=== PATIENT | female | born 1940 | race Hispanic/Latino ===

== ENCOUNTER 2016-10-03 20:46 | Inpatient (IN) | payer MEDICARE, BC ==
[2016-10-03] MEDS ORDERED: Labetalol 5 mg/ml Inj 20ML IVP STA ×2 (21:14→22:31)
--- NOTE | 2016-10-03 21:14 | ED PDOC ---
HPI: Abdomen Time Seen by Provider: 10/03/16 20:59 Chief Complaint (Nursing): Abdominal Pain Chief Complaint (Provider): Abdominal pain History Per: Patient Onset/Duration Of Symptoms: Intermittent Episodes Location Of Pain/Discomfort: Diffuse Additional Complaint(s): Patient is a 76 year old female with a past medical history of hypertension and pancreatitis presenting to the emergency department for diffuse right upper quadrant abdominal pain ongoing for a year (intermittently) with four episodes of vomiting today, and a headache that has been ongoing for several months. Also reports associated back pain. Denies dysuria, diarrhea, and fever. PCP: Dr. Roderick Coffey ([place], [place]) Past Medical History Reviewed: Historical Data, Nursing Documentation, Vital Signs Vital Signs: Last Vital Signs Temp 99.5 F 10/03/16 20:51 Pulse 87 10/03/16 21:30 Resp 18 10/03/16 21:30 BP 162/114 H 10/03/16 21:30 Pulse Ox 93 L 10/03/16 21:27 - Medical History PMH: Anemia, Anxiety, Arthritis, Bronchitis, Cardia Arrhythmia (Flutter), Colonic Polyps, COPD, Depression, Fibromyalgia, Fractures, HTN, Osteoporosis, Pancreatitis, Peripheral Edema (+2), Pneumonia (5 YRS AGO), Chronic Pain ( bilateral LE) Denies: Diabetes, Hepatitis, HIV, Chronic Kidney Disease, Sexually Transmitted Disease - Surgical History Surgical History: Carotid Endarterectomy, Endoscopy Denies: Pacemaker Other surgeries: Hand operation for carpal tunnel syndrome - Family History Family History: States: Unknown Family Hx - Living Arrangements Living Arrangements: With Family (with son) - Social History Current smoker - smoking cessation education provided: No Ex-Smoker (has not smoked in the last 12 months): Yes Alcohol: None Drugs: Denies - Immunization History Hx Tetanus Toxoid Vaccination: No Hx Influenza Vaccination: No Hx Pneumococcal Vaccination: No - Home Medications Home Medications: Ambulatory Orders Medication Instructions Recorded Aspirin [Ecotrin] 81 mg PO DAILY 11/14/14 Ziprasidone HCl [Geodon] 40 mg PO DAILY 11/14/14 Naloxegol Oxalate [Movantik] 25 mg PO DAILY PRN 11/22/14 Oxybutynin [Ditropan Tab] 5 mg PO BID 11/22/14 Cholecalciferol [Vitamin D 1000 IU] 50,000 cap PO QWK 07/29/15 Levocetirizine Dihydrochloride 1 tab PO DAILY 07/29/15 Oxycodone HCl/Acetaminophen 10 mg PO QID PRN 07/29/15 [Oxycodone-Acetaminophen 5-325] Potassium Chloride 10 meq PO DAILY 07/29/15 Primidone 3 tab PO HS 07/29/15 Valsartan [Diovan] 320 mg PO DAILY 07/29/15 Dicyclomine [Bentyl] 1 cap PO Q6 08/02/15 Ergocalciferol [Drisdol 50,000 1 cap PO QD7 08/02/15 Intl Units Cap] Sennosides [Ex-Lax] 15 mg PO BID PRN 08/02/15 Simethicone [Mi-Acid] 80 mg PO Q4 PRN 08/02/15 Bisacodyl [Dulcolax] 10 mg RC DAILY PRN #0 sup 08/21/15 DULoxetine [Cymbalta] 30 mg PO DAILY #0 ecc 08/21/15 DULoxetine [Cymbalta] 60 mg PO HS #0 ecc 08/21/15 Docusate Sodium/Sennosides A 1 tab PO BID PRN #0 tab 08/21/15 [Senokot S 50 MG-8.6 MG] Gabapentin [Neurontin] 600 mg PO TID #0 tab 08/21/15 Pantoprazole [Protonix EC Tab] 40 mg PO ACB #0 ect 08/21/15 Primidone [Mysoline] 50 mg PO HS #0 tab 08/21/15 Ziprasidone [Geodon Cap] 40 mg PO HS #0 cap 08/21/15 amLODIPine [Norvasc] 5 mg PO DAILY #0 tab 08/21/15 hydroCHLOROthiazide [Hydrodiuril] 25 mg PO DAILY #0 tab 08/21/15 traZODone [Desyrel] 50 mg PO HS #0 tab 08/21/15 Docusate [Colace] 100 mg PO DAILY PRN #14 cap 02/07/16 oxyCODONE/Acetaminophen [Percocet 1 ea PO BID PRN #12 tab 02/07/16 5/325 mg Tab] - Allergies Allergies/Adverse Reactions: Allergies Allergy/AdvReac Type Severity Reaction Status Date / Time Penicillins Allergy RASH Verified 08/02/15 17:48 Review of Systems ROS Statement: Except As Marked, All Systems Reviewed And Found Negative Constitutional: Negative for: Fever Gastrointestinal: Positive for: Vomiting (4 episodes today), Abdominal Pain ( diffuse, RUQ pain). Negative for: Diarrhea Genitourinary Female: Negative for: Dysuria Musculoskeletal: Positive for: Back Pain Neurological: Positive for: Headache Physical Exam - Reviewed Nursing Documentation Reviewed: Yes Vital Signs Reviewed: Yes - Physical Exam Appears: Positive for: Well, Non-toxic, No Acute Distress Head Exam: Positive for: ATRAUMATIC, NORMAL INSPECTION, NORMOCEPHALIC Skin: Positive for: Normal Color, Warm, Dry Eye Exam: Positive for: Normal appearance, PERRL Neck: Positive for: Normal, Painless ROM, Supple Cardiovascular/Chest: Positive for: Regular Rate, Rhythm. Negative for: Murmur Respiratory: Positive for: Normal Breath Sounds. Negative for: Accessory Muscle Use, Respiratory Distress Pulses-Radial (L): 2+ Pulses-Radial (R): 2+ Gastrointestinal/Abdominal: Positive for: Normal Exam, Soft Extremity: Positive for: Normal ROM, Swelling (bilateral lower extremity edema) Neurologic/Psych: Positive for: Alert, Oriented, Motor/Sensory Deficits ( weakness of right hand) - Laboratory Results Result Diagrams: 10/03/16 21:53 10/03/16 21:53 - ECG O2 Sat by Pulse Oximetry: 93 (RA) Pulse Ox Interpretation: Normal - Critical Care Total Time (In Min): 45 Medical Decision Making Medical Decision Making: Time: 21:11 Initial impression: Abdominal Pain Initial plan: EKG Labs Normal Saline 1 L Pepcid 20 mg IVP Toradol 30 mg IVP Trandate 30 mg IVP Zofran 4 mg IVP X-Ray Abdominal Series IV Insertion Urinalysis Glucose, Blood, POC Stat Reevaluation Scribe Attestation: Documented by Raissa Elkins, acting as a scribe for Janessa Pappas MD. Provider Scribe Attestation: All medical record entries made by the Scribe were at my direction and personally dictated by me. I have reviewed the chart and agree that the record accurately reflects my personal performance of the history, physical exam, medical decision making, and the department course for this patient. I have also personally directed, reviewed, and agree with the discharge instructions and disposition. patient has elevated lactate. exact source of infection still to be determined. She clinically looks well. She is pending CT ABd pelvis. Antibiotics ordered. Will endorse patient to Dr. Tello Disposition - Clinical Impression Clinical Impression: Abdominal pain in female - Patient ED Disposition Is Patient to be Admitted: Transfer of Care - Disposition Disposition: Transfer of Care Disposition Time: 23:49 Condition: FAIR Forms: [employer] ([place]) Patient Signed Over To: Jaiden Tello Present On Arrival: None
[2016-10-03] MEDS: Sodium Chloride 0.45% 1,000 ML IV SCH (21:48)
[2016-10-03 21:56] LABS: BASO % 0.2 % (0.0-2.0); HEMATOCRIT 50.9 % (34.0-47.0); LYMPH # 1.2 K/uL (1.0-4.3); LYMPH % 5.9 % (20.0-40.0); MEAN CELL VOLUME 91.3 fl (81.0-99.0); MEAN CORPUSCULAR HEMOGLOBIN 29.5 pg (27.0-31.0); MEAN CORPUSCULAR HGB CONC 32.3 g/dL (33.0-37.0); MEAN PLATELET VOLUME 8.7 fl (7.2-11.7); MONO # 0.9 K/uL (0.0-0.8); MONO % 4.4 % (0.0-10.0); NEUT # 18.8 K/uL (1.8-7.0); NEUT % 89.5 % (50.0-75.0); NRBC % 0.1 % (0.0-0.0); PLATELET COUNT 322 K/uL (130-400); RED CELL DISTRIBUTION WIDTH 13.4 % (11.5-14.5)
[2016-10-03 22:09] LABS: ALKALINE PHOSPHATASE 149 U/L (38-126); AST/SGOT 77 U/L (14-36); BILIRUBIN,TOTAL 2.3 mg/dl (0.2-1.3); BLOOD UREA NITROGEN 19 mg/dl (7-17); CALCIUM 9.3 mg/dL (8.4-10.2); CARBON DIOXIDE 24 mmol/L (22-30); CHLORIDE 94 mmol/L (98-107); GFR AFRICAN-AMERICAN > 60; GLUCOSE,RANDOM 202 mg/dL (65-105); SODIUM 135 mmol/l (132-148); TOTAL PROTEIN 10.2 G/DL (6.3-8.2)
[2016-10-03 22:12] LABS: ALT/SGPT < 6 U/L (9-52)
[2016-10-03 22:13] LABS: POTASSIUM 6.5 MMOL/L (3.6-5.0)
[2016-10-03 22:42] LABS: LIPASE 9473 U/L (23-300)
[2016-10-03 22:48] LABS: NEUTROPHIL 87 % (42-75); TOTAL CELLS COUNTED 100
[2016-10-03 22:54] LABS: VENOUS BLOOD GAS BASE EXCESS 2.6 mmol/L (0.0-2.0); VENOUS BLOOD GAS PCO2 55 mmHg (40-60); VENOUS BLOOD PH 7.34 (7.32-7.43)
[2016-10-03] MEDS ORDERED: PED IVPB STA (23:16)
[2016-10-03] MEDS ORDERED: GENTAMICIN IVPB STA ×2 (23:16→23:55)
[2016-10-03] MEDS ORDERED: Vancomycin 1 g Inj ONE (23:24)
[2016-10-03] MEDS ORDERED: Gentamicin 80 mg/2mL Inj. IVPB STA (23:39)
[2016-10-03 23:40] LABS: RBC URINE 4 /hpf (0-3); URINE BILIRUBIN NEGATIVE (NEGATIVE); URINE BLOOD SMALL (NEGATIVE); URINE COLOR YELLOW (YELLOW); URINE GLUCOSE (UA) 150 mg/dL (Normal); URINE KETONE TRACE mg/dL (NEGATIVE); URINE LEUKOCYTE ESTERASE NEG Leu/uL (Negative); URINE PROTEIN >=500 mg/dL (NEGATIVE); URINE UROBILINOGEN 0.2-1.0 mg/dL (0.2-1.0); WBC URINE 2 /hpf (0-5)
[2016-10-03] MEDS ORDERED: SODIUM CHLORIDE 0.9% IVPB STA (23:55)
[2016-10-03] MEDS ORDERED: Dextrose 50% SYRINGE Inj (50 ml) IVP ONE (23:56)
[2016-10-03] MEDS ORDERED: Insulin Regular 100 units/ml SC STA (23:56)
[2016-10-03] MEDS ORDERED: Sod Polystyrene Sulf 15 gm/60 ml Oral Susp PO ONE (23:56)
[2016-10-04] LABS: GRANULAR CAST 1 /lpf (0-1); URINE BACTERIA MOD (<OCC)
[2016-10-04] MEDS ORDERED: Iohexol 300 100 ML IJ ONE (00:24)
[2016-10-04] MEDS ORDERED: Sodium Chloride 0.9% 50 ML IV ONE (00:25)
--- NOTE | 2016-10-04 01:20 | CT ---
EXAM: CT Abdomen and Pelvis With Intravenous Contrast CLINICAL HISTORY: 76 years old, female; Pain; Abdominal pain; Generalized; Additional info: Abd pain; Wbd 20k TECHNIQUE: Axial computed tomography images of the abdomen and pelvis with intravenous contrast. All CT scans at this facility use one or more dose reduction techniques, viz.: automated exposure control; ma/kV adjustment per patient size (including targeted exams where dose is matched to indication; i.e. head); or iterative reconstruction technique. Coronal and sagittal reformatted images were created and reviewed. CONTRAST: 95 mL of [id number] administered intravenously. COMPARISON: No relevant prior studies available. FINDINGS: Lower thorax: There is minimal bibasilar atelectasis. ABDOMEN: Liver: There are no focal liver lesions present. Gallbladder and bile ducts: Gallbladder is distended measuring 10.6 x 4.9 CM and demonstrates at least a question of wall thickening. Additionally, the common bile duct is dilated measuring 15 mm with at least a question of wall enhancement. Neither cholecystitis, cholangitis and/or common bile duct obstruction aren't excluded. Underlying choledocholithiasis or mass near the papilla cannot be excluded. There is adjacent stranding and slight fluid in the vicinity of the common bile duct and pancreatic head. The pancreas is atrophic and partially fatty replaced. Pancreatitis is not excluded. Please correlate clinically. Pancreas: Unremarkable. No mass. No ductal dilation. Spleen: Unremarkable. No splenomegaly. Adrenals: The adrenal glands are normal. Kidneys and ureters: The kidneys are normal. No hydronephrosis. Stomach and bowel: There is fecal impaction of the rectum measuring 8.5 x 7.3 CM. Stomach is predominantly decompressed. There is no evidence of intestinal obstruction. There is mild colonic constipation. No mucosal thickening. Appendix: A normal appendix is identified. PELVIS: Bladder: Bladder is decompressed. Reproductive: Uterus is atrophic. ABDOMEN and PELVIS: Intraperitoneal space: There is no evidence of free intraperitoneal fluid. There is no free intraperitoneal air. Bones/joints: There is extensive deformity of the right hip with high riding acetabulum and extensive deformity of the right femoral head with associated joint space narrowing, arthritic changes and subchondral cyst formation. There are marked degenerative changes present. There is moderate diffuse osteopenia. No acute fracture. No dislocation. Soft tissues: Unremarkable. Vasculature: There is an infrarenal IVC filter. The aorta demonstrates moderate atherosclerotic calcification. No abdominal aortic aneurysm. Lymph nodes: There is no evidence of lymphadenopathy. IMPRESSION: 1. Gallbladder is distended measuring 10.6 x 4.9 CM and demonstrates at least a question of wall thickening. Additionally, the common bile duct is dilated measuring 15 mm with at least a question of wall enhancement. Neither cholecystitis, cholangitis and/or common bile duct obstruction aren't excluded. Underlying choledocholithiasis or mass near the papilla cannot be excluded. There is adjacent stranding and slight fluid in the vicinity of the common bile duct and pancreatic head. The pancreas is atrophic and partially fatty replaced. Pancreatitis is not excluded. Please correlate clinically. 2. There is fecal impaction of the rectum measuring 8.5 x 7.3 CM. 3. There is extensive deformity of the right hip with high riding acetabulum and extensive deformity of the right femoral head with associated joint space narrowing, arthritic changes and subchondral cyst formation. 4. Additional incidental and/or chronic findings as described.
--- NOTE | 2016-10-04 02:00 | ED PDOC ---
- Laboratory Results Result Diagrams: 10/03/16 21:53 10/03/16 21:53 - ECG O2 Sat by Pulse Oximetry: 93 (RA) Medical Decision Making Medical Decision Makin Pt. signed out to me by Dr. Pappas pending CT. 100 Pt. w/ mult abnl findings on Ct, surgery consulted, Dr. Gardner aware of patient, will admit to ICU. Disposition - Clinical Impression Clinical Impression: Pancreatitis, Cholecystitis - POA Present On Arrival: None - Disposition Disposition: Admitted as In-Patient Disposition Time: 01:30 Condition: FAIR Forms: [employer] ([place])
[2016-10-04 02:21] LABS: ALB/GLOB RATIO 1.1 (1.0-2.1); ALKALINE PHOSPHATASE 120 U/L (38-126); ALT/SGPT 31 U/L (9-52); AST/SGOT 41 U/L (14-36); BILIRUBIN,TOTAL 0.9 mg/dl (0.2-1.3); BLOOD UREA NITROGEN 19 mg/dl (7-17); CALCIUM 8.7 mg/dL (8.4-10.2); CARBON DIOXIDE 23 mmol/L (22-30); CHLORIDE 97 mmol/L (98-107); GFR AFRICAN-AMERICAN > 60; GLUCOSE,RANDOM 143 mg/dL (65-105); SODIUM 134 mmol/l (132-148); TOTAL PROTEIN 8.1 G/DL (6.3-8.2)
--- NOTE | 2016-10-04 02:32 | CP.PCM.HP ---
History of Present Illness - History of Present Illness History of Present Illness: PCP: Roderick Coffey MD Chief Complaint: Abdominal pain HPI: 76 years old female with hx of DM, HTN, A Flutter, Pancreatitis comes with a 1 years old intermittent, abdominal pain which has worsened over the past 2 days. It is located below both breast ,the periumbilical region and both lower quadrant. not relieved with her home medications and increases with movement. She refers headache and vomiting. No diarrhea, dysuria urinary. 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 absent: Anorexia, Chills, Fever - EENT Eyes: absent: Diplopia, Floaters, Photophobia, Requires Corrective Lenses Ears: absent: Decreased Hearing, Ear Discharge, Tinnitus Nose/Mouth/Throat: absent: Epistaxis, Nasal Congestion - Integumentary Integumentary: Swelling. absent: Striae - Neurological Neurological: absent: Abnormal Gait, Confusion, Dizziness, Headaches, Weakness - Psychiatric Psychiatric: Anxiety, Depression. absent: Confusion - Endocrine Endocrine: absent: Palpitations, Polydipsia, Polyphagia, Polyuria - Hematologic/Lymphatic Hematologic: absent: Easy Bleeding, Easy Bruising Past Patient History - Infectious Disease Hx of Infectious Diseases: None - Tetanus Immunizations Tetanus Immunization: Unknown - Past Medical History & Family History Past Medical History?: Yes - Past Social History Alcohol: None Drugs: Denies - CARDIAC Hx Cardia Arrhythmia: Yes (Flutter) Hx Hypertension: Yes Hx Pacemaker: No Hx Peripheral Edema: Yes (+2) - PULMONARY Hx Bronchitis: Yes Hx Chronic Obstructive Pulmonary Disease (COPD): Yes Hx Pneumonia: Yes (5 YRS AGO) - HEENT Hx Cataracts: Yes - RENAL Hx Chronic Kidney Disease: No - ENDOCRINE/METABOLIC Hx Diabetes Mellitus Type 2: Yes - HEMATOLOGICAL/ONCOLOGICAL Hx Anemia: Yes Hx Human Immunodeficiency Virus (HIV): No - INTEGUMENTARY Hx Dermatological Problems: No - MUSCULOSKELETAL/RHEUMATOLOGICAL Hx Arthritis: Yes Hx Fractures: Yes Hx Osteoporosis: Yes - GASTROINTESTINAL Hx Pancreatitis: Yes - GENITOURINARY/GYNECOLOGICAL Hx Sexually Transmitted Disorders: No - PSYCHIATRIC Hx Anxiety: Yes Hx Depression: Yes - SURGICAL HISTORY Hx Carotid Endarterectomy: Yes - ANESTHESIA Hx Anesthesia: Yes Hx Anesthesia Reactions: No Hx Malignant Hyperthermia: No Meds Allergies/Adverse Reactions: Allergies Allergy/AdvReac Type Severity Reaction Status Date / Time Penicillins Allergy RASH Verified 08/02/15 17:48 Physical Exam - Constitutional Appears: No Acute Distress - Head Exam Head Exam: ATRAUMATIC, NORMAL INSPECTION, NORMOCEPHALIC - Eye Exam Eye Exam: EOMI, Normal appearance Pupil Exam: NORMAL ACCOMODATION, PERRL - ENT Exam ENT Exam: Mucous Membranes Moist, Normal Exam, Normal External Ear Exam, Normal Oropharynx - Neck Exam Neck exam: Positive for: Full Rom, Normal Inspection. Negative for: Lymphadenopathy, Tenderness - Respiratory Exam Respiratory Exam: Clear to Auscultation Bilateral. absent: Rales, Rhonchi, Wheezes - Cardiovascular Exam Cardiovascular Exam: REGULAR RHYTHM, RRR, +S1, +S2 - GI/Abdominal Exam Additional comments: Full, soft, Decreased Bowel sounds, Tender at the whole abdomen, No guarding nor rebound tenderness. - Rectal Exam Rectal Exam: Deferred - Extremities Exam Extremities exam: Positive for: normal inspection Additional comments: Pain to both ankles and distal lower extremities - Back Exam Back exam: NORMAL INSPECTION. absent: CVA tenderness (L), CVA tenderness (R) - Neurological Exam Neurological exam: Alert, CN II-XII Intact, Oriented x3, Reflexes Normal - Psychiatric Exam Psychiatric exam: Normal Affect, Normal Mood - Skin Skin Exam: Dry, Intact, Normal Color, Warm Results - Vital Signs Recent Vital Signs: Last Vital Signs Temp 99.5 F 10/03/16 20:51 Pulse 87 10/03/16 21:30 Resp 18 10/03/16 21:30 BP 162/114 H 10/03/16 21:30 Pulse Ox 93 L 10/04/16 02:00 - Labs Result Diagrams: 10/03/16 21:53 10/04/16 02:06 Labs: Laboratory Results - last 24 hr 10/04/16 02:06 Sodium 134 Potassium 4.0 Chloride 97 L Carbon Dioxide 23 Anion Gap 18 BUN 19 H Creatinine 0.6 L Est GFR ( Amer) > 60 Est GFR (Non-Af Amer) > 60 Random Glucose 143 H Calcium 8.7 Total Bilirubin 0.9 AST 41 H D ALT 31 Alkaline Phosphatase 120 Total Protein 8.1 Albumin 4.2 Globulin 3.8 Albumin/Globulin Ratio 1.1 - Imaging and Cardiology CT scan - abdomen Status: Report reviewed by me Additional comment: FINDINGS: Lower thorax: There is minimal bibasilar atelectasis. ABDOMEN: Liver: There are no focal liver lesions present. Gallbladder and bile ducts: Gallbladder is distended measuring 10.6 x 4.9 CM and demonstrates at least a question of wall thickening. Additionally, the common bile duct is dilated measuring 15 mm with at least a question of wall enhancement. Neither cholecystitis, cholangitis and/or common bile duct obstruction aren't excluded. Underlying choledocholithiasis or mass near the papilla cannot be excluded. There is adjacent stranding and slight fluid in the vicinity of the common bile duct and pancreatic head. The pancreas is atrophic and partially fatty replaced. Pancreatitis is not excluded. Please correlate clinically. Pancreas: Unremarkable. No mass. No ductal dilation. Spleen: Unremarkable. No splenomegaly. Adrenals: The adrenal glands are normal. Kidneys and ureters: The kidneys are normal. No hydronephrosis. Stomach and bowel: There is fecal impaction of the rectum measuring 8.5 x 7.3 CM. Stomach is predominantly decompressed. There is no evidence of intestinal obstruction. There is mild colonic constipation. No mucosal thickening. Appendix: A normal appendix is identified. PELVIS: Bladder: Bladder is decompressed. Reproductive: Uterus is atrophic. ABDOMEN and PELVIS: Intraperitoneal space: There is no evidence of free intraperitoneal fluid. There is no free intraperitoneal air. Bones/joints: There is extensive deformity of the right hip with high riding acetabulum and extensive deformity of the right femoral head with associated joint space narrowing, arthritic changes and subchondral cyst formation. There are marked degenerative changes present. There is moderate diffuse osteopenia. No acute fracture. No dislocation. Soft tissues: Unremarkable. Vasculature: There is an infrarenal IVC filter. The aorta demonstrates moderate atherosclerotic calcification. No abdominal aortic aneurysm. Lymph nodes: There is no evidence of lymphadenopathy. IMPRESSION: 1. Gallbladder is distended measuring 10.6 x 4.9 CM and demonstrates at least a question of wall thickening. Additionally, the common bile duct is dilated measuring 15 mm with at least a question of wall enhancement. Neither cholecystitis, cholangitis and/or common bile duct obstruction aren't excluded. Underlying choledocholithiasis or mass near the papilla cannot be excluded. There is adjacent stranding and slight fluid in the vicinity of the common bile duct and pancreatic head. The pancreas is atrophic and partially fatty replaced. Pancreatitis is not excluded. Please correlate clinically. 2. There is fecal impaction of the rectum measuring 8.5 x 7.3 CM. 3. There is extensive deformity of the right hip with high riding acetabulum and extensive deformity of the right femoral head with associated joint space narrowing, arthritic changes and subchondral cyst formation. 4. Additional incidental and/or chronic findings as described. Chest x-ray Status: Image reviewed by me Additional comment: No infiltrate Obstructive Series Additional comment: No sign of obstruction Assessment & Plan - Assessment and Plan (Free Text) Assessment: #. Acute Pancreatitis #. Acute Cholecystitis #. HTN # Dehydration #. Leukocytosis #. Hyperglycemia Plan: 76 years old female with hx of DM, HTN, A Flutter, Pancreatitis comes with a 1 years old intermittent, abdominal pain which has worsened over the past 2 days. It is located below both breast ,the periumbilical region and both lower quadrant. Not relieved with her home medications and increases with movement. She refers headache and vomiting. No diarrhea, dysuria urinary. #. Acute Pancreatitis - Consult Dr Mariscal GI - NPO - IVF of NS - Pain management - Follow Renal labs and CBC, electrolytes #. Acute Cholecystitis - Consult Surgery Dr Reddy - Consult Dr Castano - Vancomycin - Aztreonam - Zofran #. HTN - IV Metoprolol - Follow BP # Dehydration - IV Normal Saline - Follow Renal labs #. Leukocytosis secondary to the Inflammationa nd infection - follow [facility] #. Hyperglycemia -Follow HbA1c #. Stress ulcer prophylaxis with Pepcid #. DVT prophylaxis with SCD #. Code status: Full - Date & Time Date: 10/04/16 Time: 02:31
--- NOTE | 2016-10-04 02:50 | CP.PCM.CON ---
<Clarence Proctor D - Last Filed: 10/07/16 17:10> History of Present Illness - History of Present Illness History of Present Illness: CONSULT NOTE FOR DR. REDDY 76F presents to [place] ED with abdominal pain that started yesterday. Patient describes the pain has diffused and severe. She states the pain is worse in the right upper quadrant, denies nausea, or vomiting. States the last time she ate was yesterday afternoon. Patient denies fevers but states she feels very cold currently. She has not had the pain this severe before. She was recently in the hospital in [place]. Records show she was seen by GI there who did and EUS with found a dilated CBD at 9.9mm and a periampullary duodenal diverticulum. PMH: Chronic pancreatitis, DM, HTN, HLD, periampullary diverticulum PSH: Hand surgery Social: denies tobacco/alcohol use Allergies: Penicillin (rash at 16years old) Past Patient History - Infectious Disease Hx of Infectious Diseases: None - Tetanus Immunizations Tetanus Immunization: Unknown - Past Medical History & Family History Past Medical History?: Yes - Past Social History Alcohol: None Drugs: Denies - CARDIAC Hx Cardia Arrhythmia: Yes (Flutter) Hx Hypertension: Yes Hx Pacemaker: No Hx Peripheral Edema: Yes (+2) - PULMONARY Hx Bronchitis: Yes Hx Chronic Obstructive Pulmonary Disease (COPD): Yes Hx Pneumonia: Yes (5 YRS AGO) - HEENT Hx Cataracts: Yes - RENAL Hx Chronic Kidney Disease: No - ENDOCRINE/METABOLIC Hx Diabetes Mellitus Type 2: Yes - HEMATOLOGICAL/ONCOLOGICAL Hx Anemia: Yes Hx Human Immunodeficiency Virus (HIV): No - INTEGUMENTARY Hx Dermatological Problems: No - MUSCULOSKELETAL/RHEUMATOLOGICAL Hx Arthritis: Yes Hx Fractures: Yes Hx Osteoporosis: Yes - GASTROINTESTINAL Hx Pancreatitis: Yes - GENITOURINARY/GYNECOLOGICAL Hx Sexually Transmitted Disorders: No - PSYCHIATRIC Hx Anxiety: Yes Hx Depression: Yes - SURGICAL HISTORY Hx Carotid Endarterectomy: Yes - ANESTHESIA Hx Anesthesia: Yes Hx Anesthesia Reactions: No Hx Malignant Hyperthermia: No Meds Allergies/Adverse Reactions: Allergies Allergy/AdvReac Type Severity Reaction Status Date / Time Penicillins Allergy RASH Verified 08/02/15 17:48 - Medications Medications: Current Medications Sodium Chloride (Sodium Chloride 0.45%) 1,000 mls @ 250 mls/hr IV .Q4H [facility] Last Admin: 10/03/16 21:48 Dose: 250 mls/hr Physical Exam - Constitutional Appears: Other (umcomfortable) Additional comments: pale - Head Exam Head Exam: ATRAUMATIC - Eye Exam Eye Exam: EOMI, PERRL - ENT Exam ENT Exam: Mucous Membranes Dry - Respiratory Exam Respiratory Exam: Clear to Auscultation Bilateral, NORMAL BREATHING PATTERN - Cardiovascular Exam Cardiovascular Exam: REGULAR RHYTHM, +S1, +S2 - GI/Abdominal Exam GI & Abdominal Exam: Guarding, Soft, Tenderness (moderte tendernes on slight palpation). absent: Distended, Firm, Rebound, Rigid - Extremities Exam Extremities exam: Negative for: pedal edema, tenderness - Neurological Exam Neurological exam: Alert, Oriented x3 - Psychiatric Exam Psychiatric exam: Anxious, Normal Affect - Skin Skin Exam: Dry, Intact, Pallor, Warm Results - Vital Signs Recent Vital Signs: Last Vital Signs Temp 99.5 F 10/03/16 20:51 Pulse 87 10/03/16 21:30 Resp 18 10/03/16 21:30 BP 162/114 H 10/03/16 21:30 Pulse Ox 93 L 10/04/16 02:00 - Labs Result Diagrams: 10/07/16 04:20 10/07/16 13:27 Labs: Laboratory Results - last 24 hr 10/04/16 02:06 Sodium 134 Potassium 4.0 Chloride 97 L Carbon Dioxide 23 Anion Gap 18 BUN 19 H Creatinine 0.6 L Est GFR ( Amer) > 60 Est GFR (Non-Af Amer) > 60 Random Glucose 143 H Calcium 8.7 Total Bilirubin 0.9 AST 41 H D ALT 31 Alkaline Phosphatase 120 Total Protein 8.1 Albumin 4.2 Globulin 3.8 Albumin/Globulin Ratio 1.1 Assessment & Plan - Assessment and Plan (Free Text) Assessment: 76F with abdominal, possible due to cholangitis/Pancreatitis 2/2 duodenal diverticulum, cholecystitis Plan: - NPO, pain control, IV fluids - Patient need IV antibiotics - GI consult recommended - Recommend US Further recs discuss with Dr. Barry Proctor, PGY2 <Kyle Reddy - Last Filed: 10/12/16 19:01> Meds - Medications Medications: Current Medications Acetaminophen (Tylenol 325mg Tab) 650 mg PO Q6 PRN PRN Reason: Fever >100.4 F Last Admin: 10/09/16 17:07 Dose: 650 mg Albuterol/Ipratropium (Duoneb 3 Mg/0.5 Mg (3 Ml) Ud) 3 ml INH RQ6 PRN PRN Reason: Shortness of Breath Last Admin: 10/09/16 05:55 Dose: 3 ml Alprazolam (Xanax) 0.25 mg PO Q12 [facility] Stop: 10/14/16 10:16 Last Admin: 10/12/16 09:23 Dose: Not Given Docusate Sodium (Colace) 100 mg PO TID [facility] Last Admin: 10/12/16 17:07 Dose: Not Given Duloxetine HCl (Cymbalta) 60 mg PO HS [facility] Last Admin: 10/11/16 21:48 Dose: 60 mg Enalapril Maleate (Vasotec) 10 mg PO Q12 [facility] Last Admin: 10/12/16 12:25 Dose: 10 mg Enoxaparin Sodium (Lovenox) 100 mg 1 mg/kg (105 mg) SC Q12H PATTI PRN Reason: Protocol Last Admin: 10/12/16 18:09 Dose: 100 mg Famotidine (Pepcid) 20 mg IVP Q12 [facility] Last Admin: 10/12/16 11:07 Dose: Not Given Gabapentin (Neurontin) 600 mg PO Q8 [facility] Last Admin: 10/12/16 18:10 Dose: 600 mg Hydromorphone HCl (Dilaudid) 1 mg IVP Q3 PRN PRN Reason: Pain, severe (8-10) Last Admin: 10/12/16 18:08 Dose: 1 mg Meropenem 1 gm/ Sodium (Chloride) 100 mls @ 100 mls/hr IVPB Q12 [facility] Last Admin: 10/12/16 12:24 Dose: 100 mls/hr Vancomycin HCl 1 gm/ Sodium (Chloride) 250 mls @ 166.667 mls/hr IVPB Q12H [facility] Last Admin: 10/12/16 12:23 Dose: 166.667 mls/hr Insulin Human Regular (Humulin R) 0 units SC ACHS PATTI PRN Reason: Protocol Last Admin: 10/12/16 17:09 Dose: Not Given Metoprolol Tartrate (Lopressor) 12.5 mg PO Q12 [facility] Last Admin: 10/12/16 12:25 Dose: 12.5 mg Potassium Phos/Sodium Phos (Neutra-Phos) 1 pkt PO TID PATTI Last Admin: 10/12/16 18:10 Dose: 1 pkt Trazodone HCl (Desyrel) 50 mg PO HS PATTI Last Admin: 10/11/16 21:48 Dose: 50 mg Results - Vital Signs Recent Vital Signs: Last Vital Signs Temp 98.8 F 10/12/16 16:10 Pulse 74 10/12/16 16:10 Resp 20 10/12/16 16:10 BP 157/81 H 10/12/16 16:10 Pulse Ox 98 10/12/16 16:10 - Labs Result Diagrams: 10/11/16 06:00 10/11/16 06:00 Labs: Laboratory Results - last 24 hr 10/11/16 10/12/16 10/12/16 21:43 05:20 12:12 POC Glucose (mg/dL) 132 H 368 H 126 H 10/12/16 16:17 POC Glucose (mg/dL) 120 H Attending/Attestation - Attestation I have personally seen and examined this patient.: Yes I have fully participated in the care of the patient.: Yes I have reviewed all pertinent clinical information: Yes Notes (Text): 10/12/16 19:00 Pt was seen and examined at bedside Agree with above note and assessment Pt with Cholecystitis with GS Pancreatitis Hypoxia GI consult C.w current mx as per ICU attending Plan moonw pt in detail Risk and benefit explained in detail.
[2016-10-04 02:53] LABS: LIPASE 7985 U/L (23-300)
[2016-10-04] MEDS ORDERED: Sodium Chloride 0.9% 1,000 ML IV SCH (03:30)
[2016-10-04] MEDS ORDERED: Gentamicin 400 MG in Sodium Chloride 0.9% 100 ML IVPB SCH (03:30)
[2016-10-04] MEDS: Sodium Chloride 0.45% 1,000 ML IV SCH (04:30)
[2016-10-04] MEDS ORDERED: Metoprolol 1 mg/ml Inj IVP ONE (04:47)
[2016-10-04] MEDS: Metoprolol 1 mg/ml Inj IVP SCH ×4 (04:48→22:02)
[2016-10-04] MEDS: Sodium Chloride 0.9% 1,000 ML IV SCH ×5 (06:02→23:59)
[2016-10-04 06:09] VITALS: BMI 35.3
[2016-10-04] MEDS: Insulin Regular 100 units/ml SC SCH ×3 (06:48→21:10)
[2016-10-04 07:52] LABS: HEMATOCRIT 47.1 % (34.0-47.0); MEAN CELL VOLUME 90.4 fl (81.0-99.0); MEAN CORPUSCULAR HEMOGLOBIN 29.4 pg (27.0-31.0); MEAN CORPUSCULAR HGB CONC 32.5 g/dL (33.0-37.0); RED CELL DISTRIBUTION WIDTH 13.5 % (11.5-14.5); WHITE BLOOD COUNT 11.8 K/uL (4.8-10.8)
[2016-10-04] MEDS: HYDROmorphone 0.5 mg/0.5 ml ISec IVP PRN ×3 (08:02→16:32)
[2016-10-04] MEDS ORDERED: Metoprolol 1 mg/ml Inj IVP STA (08:04)
[2016-10-04 08:05] LABS: CHOLESTEROL 203 mg/dL (0-199)
[2016-10-04 08:58] LABS: LIPASE 5357 U/L (23-300)
[2016-10-04] MEDS ORDERED: Aztreonam 1 GM in Sodium Chloride 0.9% 100 ML IVPB SCH (09:00)
--- NOTE | 2016-10-04 09:49 | CARD ---
APPROVED REPORT EKG Measurement Heart [id number] <Conclusion> Normal sinus rhythm Normal ECG
[2016-10-04 10:03] LABS: ABG ALLEN TEST YES; ARTERIAL BLOOD GAS HCO3 23.1 mmol/L (21-28); ARTERIAL BLOOD GAS O2 CONTENT 20.2 ML/dL (15-23); ARTERIAL BLOOD GAS PH 7.42 (7.35-7.45); ARTERIAL BLOOD GAS PO2 69 mm/Hg (80-100); ARTERIAL BLOOD HGB O2 SAT 92.8 % (95.0-98.0); CARBOXYHEMOGLOBIN 2.1 % (0.5-1.5); HHB 3.5 % (0.0-5.0); METHEMOGLOBIN 1.7 % (0.0-3.0)
--- NOTE | 2016-10-04 11:56 | CP.PCM.CON ---
History of Present Illness - History of Present Illness History of Present Illness: Infectious Disease Note- asked to see this patient for sepsis . HPI- history obtained mostly from the medical chart and the biometrics technician as patient is drowsy and weak. patient is a 76 year old female with pmh of DM II, HTN, A.flutter, pancreatitis who was admitted with worsening abdominal pain for the past few days. apaprently pt. has been having this abdominal pain intermittenlty for a while but eh last few days has progressively worsened. she dneis any fever or chills. + nausea at times. denies any diarrhea. currently pt. is in ICU and she was just palced on dopamine drip By biometrics technician for low BP. pt. awake but very tired and drowsy. 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; Anemia; COPD; Fibromyalgia, leg edema; chronic pain bilateral LE; PSH: Carotid Endarterectomy, Endoscopy, Cataract extreaction left eye; Surgery to the shoulder, elbow and finger; Hand operation for Carpal Tunnel SH: Ex Smoker; No alcohol; No illegal drug use; FH: Unknown family hx Allergies: PCN (rash as per med records) Review of Systems - Review of Systems Review of Systems: ROS- + abdominal pain mostly in mid to right upper abdomen region, + nausea at times , denies any diarrhea denies any fever or chills, denies any sob or cough, denies any chest pain denies any ROBLES Past Patient History - Infectious Disease Hx of Infectious Diseases: None - Tetanus Immunizations Tetanus Immunization: Unknown - Past Medical History & Family History Past Medical History?: Yes - Past Social History Alcohol: None Drugs: Denies - CARDIAC Hx Cardia Arrhythmia: Yes (Flutter) Hx Hypertension: Yes Hx Peripheral Edema: Yes (+2) - PULMONARY Hx Bronchitis: Yes Hx Chronic Obstructive Pulmonary Disease (COPD): Yes Hx Pneumonia: Yes (5 YRS AGO) - HEENT Hx Cataracts: Yes - RENAL Hx Chronic Kidney Disease: No - ENDOCRINE/METABOLIC Hx Diabetes Mellitus Type 2: Yes - INTEGUMENTARY Hx Dermatological Problems: No - MUSCULOSKELETAL/RHEUMATOLOGICAL Hx Arthritis: Yes Hx Fractures: Yes Hx Osteoporosis: Yes - GASTROINTESTINAL Hx Pancreatitis: Yes - GENITOURINARY/GYNECOLOGICAL Hx Sexually Transmitted Disorders: No - PSYCHIATRIC Hx Anxiety: Yes Hx Depression: Yes - SURGICAL HISTORY Hx Carotid Endarterectomy: Yes - ANESTHESIA Hx Anesthesia: Yes Hx Anesthesia Reactions: No Hx Malignant Hyperthermia: No Meds Allergies/Adverse Reactions: Allergies Allergy/AdvReac Type Severity Reaction Status Date / Time Penicillins Allergy RASH Verified 08/02/15 17:48 - Medications Medications: Current Medications Famotidine (Pepcid) 20 mg IVP Q12 [facility] Last Admin: 10/04/16 10:22 Dose: 20 mg Hydromorphone HCl (Dilaudid) 1 mg IVP Q3 PRN PRN Reason: Pain, severe (8-10) Last Admin: 10/04/16 11:45 Dose: 1 mg Sodium Chloride (Sodium Chloride 0.9%) 1,000 mls @ 1,000 mls/hr IV .Q1H [facility] Stop: 10/05/16 03:16 Last Admin: 10/04/16 04:58 Dose: 1,000 mls/hr Vancomycin HCl 1 gm/ Sodium (Chloride) 250 mls @ 166.667 mls/hr IVPB Q12 [facility] Last Admin: 10/04/16 10:19 Dose: 166.667 mls/hr Aztreonam 1 gm/ Sodium (Chloride) 100 mls @ 100 mls/hr IVPB Q8 PATTI Last Admin: 10/04/16 10:18 Dose: 100 mls/hr Sodium Chloride (Sodium Chloride 0.9%) 1,000 mls @ 250 mls/hr IV .Q4H [facility] Stop: 10/05/16 04:45 Last Admin: 10/04/16 10:20 Dose: 250 mls/hr Insulin Human Regular (Humulin R) 0 units SC ACHS PATTI PRN Reason: Protocol Last Admin: 10/04/16 11:27 Dose: Not Given Metoprolol Tartrate (Lopressor) 5 mg IVP Q6 [facility] Last Admin: 10/04/16 09:19 Dose: Not Given Physical Exam - Constitutional Appears: Chronically Ill Additional comments: awake but drowsy - Head Exam Head Exam: ATRAUMATIC - Eye Exam Eye Exam: EOMI, PERRL - Neck Exam Neck exam: Positive for: Full Rom - Respiratory Exam Respiratory Exam: Clear to Auscultation Bilateral, NORMAL BREATHING PATTERN - Cardiovascular Exam Cardiovascular Exam: Tachycardia, +S1, +S2 - GI/Abdominal Exam GI & Abdominal Exam: Normal Bowel Sounds, Soft Additional comments: minimal tenderness with palpation of the epigastric and RUQ region No guarding No rebound soft + BS - Extremities Exam Extremities exam: Positive for: normal inspection - Neurological Exam Neurological exam: Oriented x3 Results - Vital Signs Recent Vital Signs: Last Vital Signs Temp 98.5 F 10/04/16 08:00 Pulse 91 H 10/04/16 10:00 Resp 32 H 10/04/16 10:00 BP 95/65 L 10/04/16 10:00 Pulse Ox 92 L 10/04/16 10:00 - Labs Result Diagrams: 10/04/16 06:00 10/04/16 02:06 Labs: Laboratory Results - last 24 hr 10/04/16 10/04/16 10/04/16 02:06 05:46 06:00 WBC RBC Hgb Hct MCV MCH MCHC RDW Plt Count pCO2 pO2 HCO3 ABG pH ABG Total CO2 ABG O2 Saturation ABG O2 Content ABG Base Excess ABG Hemoglobin ABG Carboxyhemoglobin POC ABG HHb (Measured) ABG Methemoglobin ABG O2 Capacity Mahesh Test A-a O2 Difference Hgb O2 Saturation FiO2 Blood Gas Comments Crit Value Called By Crit Value Read Back Sodium 134 Potassium 4.0 Chloride 97 L Carbon Dioxide 23 Anion Gap 18 BUN 19 H Creatinine 0.6 L Est GFR ( Amer) > 60 Est GFR (Non-Af Amer) > 60 POC Glucose (mg/dL) 131 H Random Glucose 143 H Lactic Acid Calcium 8.7 Total Bilirubin 0.9 AST 41 H D ALT 31 Alkaline Phosphatase 120 Total Protein 8.1 Albumin 4.2 Globulin 3.8 Albumin/Globulin Ratio 1.1 Triglycerides 72 Cholesterol 203 H LDL Cholesterol Direct 140 H HDL Cholesterol 41 Lipase 7985 H 5357 H 10/04/16 10/04/16 10/04/16 06:00 06:30 10:00 WBC 11.8 H RBC 5.21 H Hgb 15.3 Hct 47.1 H MCV 90.4 MCH 29.4 MCHC 32.5 L RDW 13.5 Plt Count 238 pCO2 33 L pO2 69 L HCO3 23.1 ABG pH 7.42 ABG Total CO2 22.4 ABG O2 Saturation 96.4 ABG O2 Content 20.2 ABG Base Excess -2.2 L ABG Hemoglobin 15.5 ABG Carboxyhemoglobin 2.1 H POC ABG HHb (Measured) 3.5 ABG Methemoglobin 1.7 ABG O2 Capacity 21.0 Mahesh Test Yes A-a O2 Difference 89.0 Hgb O2 Saturation 92.8 L FiO2 28.0 Blood Gas Comments 2l/m'nc rr Crit Value Called By 15 Crit Value Read Back N Sodium Potassium Chloride Carbon Dioxide Anion Gap BUN Creatinine Est GFR ( Amer) Est GFR (Non-Af Amer) POC Glucose (mg/dL) Random Glucose Lactic Acid 1.9 Calcium Total Bilirubin AST ALT Alkaline Phosphatase Total Protein Albumin Globulin Albumin/Globulin Ratio Triglycerides Cholesterol LDL Cholesterol Direct HDL Cholesterol Lipase 10/04/16 11:08 WBC RBC Hgb Hct MCV MCH MCHC RDW Plt Count pCO2 pO2 HCO3 ABG pH ABG Total CO2 ABG O2 Saturation ABG O2 Content ABG Base Excess ABG Hemoglobin ABG Carboxyhemoglobin POC ABG HHb (Measured) ABG Methemoglobin ABG O2 Capacity Mahesh Test A-a O2 Difference Hgb O2 Saturation FiO2 Blood Gas Comments Crit Value Called By Crit Value Read Back Sodium Potassium Chloride Carbon Dioxide Anion Gap BUN Creatinine Est GFR ( Amer) Est GFR (Non-Af Amer) POC Glucose (mg/dL) 133 H Random Glucose Lactic Acid Calcium Total Bilirubin AST ALT Alkaline Phosphatase Total Protein Albumin Globulin Albumin/Globulin Ratio Triglycerides Cholesterol LDL Cholesterol Direct HDL Cholesterol Lipase Laboratory Results - last 72 hr 10/03/16 10/03/16 10/03/16 21:53 21:53 22:47 WBC 21.0 H D RBC 5.57 H Hgb 16.5 H Hct 50.9 H MCV 91.3 MCH 29.5 MCHC 32.3 L RDW 13.4 Plt Count 322 D MPV 8.7 Neut % (Auto) 89.5 H Lymph % (Auto) 5.9 L Hendry % (Auto) 4.4 Eos % (Auto) 0.0 Baso % (Auto) 0.2 Neut # 18.8 H Lymph # 1.2 Hendry # 0.9 H Eos # 0.0 Baso # 0.0 Neutrophils % (Manual) 87 H Band Neutrophils % 1 Lymphocytes % (Manual) 7 L Monocytes % (Manual) 5 Platelet Estimate Normal pCO2 pO2 15 L HCO3 ABG pH ABG Total CO2 ABG O2 Saturation ABG O2 Content ABG Base Excess ABG Hemoglobin ABG Carboxyhemoglobin POC ABG HHb (Measured) ABG Methemoglobin ABG O2 Capacity Mahesh Test VBG pH 7.34 VBG pCO2 55 VBG HCO3 24.8 VBG Total CO2 31.4 H VBG O2 Sat (Calc) 26.2 L VBG Base Excess 2.6 H VBG Potassium 6.5 H* A-a O2 Difference Hgb O2 Saturation Glucose 203 H Lactate 4.5 H* FiO2 21.0 Blood Gas Comments Lactate 4.5 Crit Value Called To janessa Elam Crit Value Called By 203 Crit Value Read Back Y Blood Gas Notified Time 2253 Sodium 135 133.0 Potassium 6.5 H* D Chloride 94 L 95.0 L Carbon Dioxide 24 Anion Gap 24 H BUN 19 H Creatinine 0.7 Est GFR ( Amer) > 60 Est GFR (Non-Af Amer) > 60 POC Glucose (mg/dL) Random Glucose 202 H Lactic Acid Calcium 9.3 Total Bilirubin 2.3 H AST 77 H D ALT < 6 L D Alkaline Phosphatase 149 H D Troponin I 0.0240 Total Protein 10.2 H Albumin 5.2 H D Globulin 5.0 H Albumin/Globulin Ratio 1.0 Triglycerides Cholesterol LDL Cholesterol Direct HDL Cholesterol Lipase 9473 H Venous Blood Potassium 6.5 H* Urine Color Urine Clarity Urine pH Ur Specific Gillett Urine Protein Urine Glucose (UA) Urine Ketones Urine Blood Urine Nitrate Urine Bilirubin Urine Urobilinogen Ur Leukocyte Esterase Urine RBC (Auto) Urine Microscopic WBC Ur Squamous Epith Cells Urine Bacteria Granular Casts (Auto) 10/03/16 10/04/16 10/04/16 22:59 02:06 05:46 WBC RBC Hgb Hct MCV MCH MCHC RDW Plt Count MPV Neut % (Auto) Lymph % (Auto) Hendry % (Auto) Eos % (Auto) Baso % (Auto) Neut # Lymph # Hendry # Eos # Baso # Neutrophils % (Manual) Band Neutrophils % Lymphocytes % (Manual) Monocytes % (Manual) Platelet Estimate pCO2 pO2 HCO3 ABG pH ABG Total CO2 ABG O2 Saturation ABG O2 Content ABG Base Excess ABG Hemoglobin ABG Carboxyhemoglobin POC ABG HHb (Measured) ABG Methemoglobin ABG O2 Capacity Mahesh Test VBG pH VBG pCO2 VBG HCO3 VBG Total CO2 VBG O2 Sat (Calc) VBG Base Excess VBG Potassium A-a O2 Difference Hgb O2 Saturation Glucose Lactate FiO2 Blood Gas Comments Crit Value Called To Crit Value Called By Crit Value Read Back Blood Gas Notified Time Sodium 134 Potassium 4.0 Chloride 97 L Carbon Dioxide 23 Anion Gap 18 BUN 19 H Creatinine 0.6 L Est GFR ( Amer) > 60 Est GFR (Non-Af Amer) > 60 POC Glucose (mg/dL) 131 H Random Glucose 143 H Lactic Acid Calcium 8.7 Total Bilirubin 0.9 AST 41 H D ALT 31 Alkaline Phosphatase 120 Troponin I Total Protein 8.1 Albumin 4.2 Globulin 3.8 Albumin/Globulin Ratio 1.1 Triglycerides Cholesterol LDL Cholesterol Direct HDL Cholesterol Lipase 7985 H Venous Blood Potassium Urine Color Yellow Urine Clarity Slighty-cloudy Urine pH 7.0 Ur Specific Gillett 1.023 Urine Protein >=500 Urine Glucose (UA) 150 Urine Ketones Trace Urine Blood Small Urine Nitrate Negative Urine Bilirubin Negative Urine Urobilinogen 0.2-1.0 Ur Leukocyte Esterase Neg Urine RBC (Auto) 4 H Urine Microscopic WBC 2 Ur Squamous Epith Cells 3 Urine Bacteria Mod H Granular Casts (Auto) 1 10/04/16 10/04/16 10/04/16 06:00 06:00 06:30 WBC 11.8 H RBC 5.21 H Hgb 15.3 Hct 47.1 H MCV 90.4 MCH 29.4 MCHC 32.5 L RDW 13.5 Plt Count 238 MPV Neut % (Auto) Lymph % (Auto) Hendry % (Auto) Eos % (Auto) Baso % (Auto) Neut # Lymph # Hendry # Eos # Baso # Neutrophils % (Manual) Band Neutrophils % Lymphocytes % (Manual) Monocytes % (Manual) Platelet Estimate pCO2 pO2 HCO3 ABG pH ABG Total CO2 ABG O2 Saturation ABG O2 Content ABG Base Excess ABG Hemoglobin ABG Carboxyhemoglobin POC ABG HHb (Measured) ABG Methemoglobin ABG O2 Capacity Mahesh Test VBG pH VBG pCO2 VBG HCO3 VBG Total CO2 VBG O2 Sat (Calc) VBG Base Excess VBG Potassium A-a O2 Difference Hgb O2 Saturation Glucose Lactate FiO2 Blood Gas Comments Crit Value Called To Crit Value Called By Crit Value Read Back Blood Gas Notified Time Sodium Potassium Chloride Carbon Dioxide Anion Gap BUN Creatinine Est GFR ( Amer) Est GFR (Non-Af Amer) POC Glucose (mg/dL) Random Glucose Lactic Acid 1.9 Calcium Total Bilirubin AST ALT Alkaline Phosphatase Troponin I Total Protein Albumin Globulin Albumin/Globulin Ratio Triglycerides 72 Cholesterol 203 H LDL Cholesterol Direct 140 H HDL Cholesterol 41 Lipase 5357 H Venous Blood Potassium Urine Color Urine Clarity Urine pH Ur Specific Gillett Urine Protein Urine Glucose (UA) Urine Ketones Urine Blood Urine Nitrate Urine Bilirubin Urine Urobilinogen Ur Leukocyte Esterase Urine RBC (Auto) Urine Microscopic WBC Ur Squamous Epith Cells Urine Bacteria Granular Casts (Auto) 10/04/16 10/04/16 10:00 11:08 WBC RBC Hgb Hct MCV MCH MCHC RDW Plt Count MPV Neut % (Auto) Lymph % (Auto) Hendry % (Auto) Eos % (Auto) Baso % (Auto) Neut # Lymph # Hendry # Eos # Baso # Neutrophils % (Manual) Band Neutrophils % Lymphocytes % (Manual) Monocytes % (Manual) Platelet Estimate pCO2 33 L pO2 69 L HCO3 23.1 ABG pH 7.42 ABG Total CO2 22.4 ABG O2 Saturation 96.4 ABG O2 Content 20.2 ABG Base Excess -2.2 L ABG Hemoglobin 15.5 ABG Carboxyhemoglobin 2.1 H POC ABG HHb (Measured) 3.5 ABG Methemoglobin 1.7 ABG O2 Capacity 21.0 Mahesh Test Yes VBG pH VBG pCO2 VBG HCO3 VBG Total CO2 VBG O2 Sat (Calc) VBG Base Excess VBG Potassium A-a O2 Difference 89.0 Hgb O2 Saturation 92.8 L Glucose Lactate FiO2 28.0 Blood Gas Comments 2l/m'nc rr Crit Value Called To Crit Value Called By 15 Crit Value Read Back N Blood Gas Notified Time Sodium Potassium Chloride Carbon Dioxide Anion Gap BUN Creatinine Est GFR ( Amer) Est GFR (Non-Af Amer) POC Glucose (mg/dL) 133 H Random Glucose Lactic Acid Calcium Total Bilirubin AST ALT Alkaline Phosphatase Troponin I Total Protein Albumin Globulin Albumin/Globulin Ratio Triglycerides Cholesterol LDL Cholesterol Direct HDL Cholesterol Lipase Venous Blood Potassium Urine Color Urine Clarity Urine pH Ur Specific Gillett Urine Protein Urine Glucose (UA) Urine Ketones Urine Blood Urine Nitrate Urine Bilirubin Urine Urobilinogen Ur Leukocyte Esterase Urine RBC (Auto) Urine Microscopic WBC Ur Squamous Epith Cells Urine Bacteria Granular Casts (Auto) Accession No. : [id number] Patient Name / ID : LAURO RODRIGUEZ / [id number] Exam Date : 10/04/2016 00:42:28 ( Approved ) Study Comment : Sex / Age : F / 76Y Creator : FRANK BURNETT Dictator : Wool Grader : Accounts Payable Supervisor : FRANK BURNETT Approver2 : Report Date : 10/04/2016 01:20:00 My Comment : [facility] Division of Radiology [address] [place] [address] Tel. no. Patient Name: MICHAEL RESTREPO Pt. Address: [address] [place] [address] Rec #: [id number] [place] [address]: Elyse SINGH,Janessa Ramon Pt Order Location: [facility] : 1940 Female Age: 76 Order #: [id number] Reason for exam: abd pain; wbd 20K CT Scan ABD PELVIS IV CONTRAST ONLY Exam Date: 10/03/16 This imaging exam was performed at [facility] EXAM: CT Abdomen and Pelvis With Intravenous Contrast CLINICAL HISTORY: 76 years old, female; Pain; Abdominal pain; Generalized; Additional info: Abd pain; Wbd 20k TECHNIQUE: Axial computed tomography images of the abdomen and pelvis with intravenous contrast. All CT scans at this facility use one or more dose reduction techniques, viz.: automated exposure control; ma/kV adjustment per patient size (including targeted exams where dose is matched to indication; i.e. head); or iterative reconstruction technique. Coronal and sagittal reformatted images were created and reviewed. CONTRAST: 95 mL of [id number] administered intravenously. COMPARISON: No relevant prior studies available. FINDINGS: Lower thorax: There is minimal bibasilar atelectasis. ABDOMEN: Liver: There are no focal liver lesions present. Gallbladder and bile ducts: Gallbladder is distended measuring 10.6 x 4.9 CM and demonstrates at least a question of wall thickening. Additionally, the common bile duct is dilated measuring 15 mm with at least a question of wall enhancement. Neither cholecystitis, cholangitis and/or common bile duct obstruction aren't excluded. Underlying choledocholithiasis or mass near the papilla cannot be excluded. There is adjacent stranding and slight fluid in the vicinity of the common bile duct and pancreatic head. The pancreas is atrophic and partially fatty replaced. Pancreatitis is not excluded. Please correlate clinically. Pancreas: Unremarkable. No mass. No ductal dilation. Spleen: Unremarkable. No splenomegaly. Adrenals: The adrenal glands are normal. Kidneys and ureters: The kidneys are normal. No hydronephrosis. Stomach and bowel: There is fecal impaction of the rectum measuring 8.5 x 7.3 CM. Stomach is predominantly decompressed. There is no evidence of intestinal obstruction. There is mild colonic constipation. No mucosal thickening. Appendix: A normal appendix is identified. PELVIS: Bladder: Bladder is decompressed. Reproductive: Uterus is atrophic. ABDOMEN and PELVIS: Intraperitoneal space: There is no evidence of free intraperitoneal fluid. There is no free intraperitoneal air. Bones/joints: There is extensive deformity of the right hip with high riding acetabulum and extensive deformity of the right femoral head with associated joint space narrowing, arthritic changes and subchondral cyst formation. There are marked degenerative changes present. There is moderate diffuse osteopenia. No acute fracture. No dislocation. Soft tissues: Unremarkable. Vasculature: There is an infrarenal IVC filter. The aorta demonstrates moderate atherosclerotic calcification. No abdominal aortic aneurysm. Lymph nodes: There is no evidence of lymphadenopathy. IMPRESSION: 1. Gallbladder is distended measuring 10.6 x 4.9 CM and demonstrates at least a question of wall thickening. Additionally, the common bile duct is dilated measuring 15 mm with at least a question of wall enhancement. Neither cholecystitis, cholangitis and/or common bile duct obstruction aren't excluded. Underlying choledocholithiasis or mass near the papilla cannot be excluded. There is adjacent stranding and slight fluid in the vicinity of the common bile duct and pancreatic head. The pancreas is atrophic and partially fatty replaced. Pancreatitis is not excluded. Please correlate clinically. 2. There is fecal impaction of the rectum measuring 8.5 x 7.3 CM. 3. There is extensive deformity of the right hip with high riding acetabulum and extensive deformity of the right femoral head with associated joint space narrowing, arthritic changes and subchondral cyst formation. 4. Additional incidental and/or chronic findings as described. Dictated By: Frank Burnett MD, MD Dictated Date/Time: 10/04/16119 Signed By: Frank Burnett MD Date Signed: 119 Transcribed By: SHIRA Transcribe Date/Time : 10/04/16119 SCAR/KIRA Assessment & Plan (1) Cholecystitis Status: Acute (2) Pancreatitis Status: Acute (3) Leukocytosis Status: Acute - Assessment and Plan (Free Text) Assessment: A/P- 76 year old female with multiple medical conditions including DM II, HTN, pancreatitis admitted with worsening abdominal pain and nausea found to have cholecystitis with ? choledocholithiasis and elevated wbc as well as elevated lipase and LFts and elavted lactate. afebrile leukocytosis trending doen . CT abd report noted. plan- advise to cover for gram neg and anaerobes. pt. is on azactam as per primary team. in light of the sepsis advise to broaden her abx to IV meropenem ( will be monitored closely in ICU for any possible reactions but should not cross react with her PCN ). can continue with IV vanco empirically for now. keep trough <15. await blood adn urine cx results. may need HIDA scan . Gi evalaution advised as well. surgical team f/u as well. all above d/w [employer] Manufacturing Engineer . Thank you for allowing me to take [art in the care of this patient. ICu time 60 min.
[2016-10-04] MEDS ORDERED: Lidocaine 1% Inj (20ml) ONE (12:04)
[2016-10-04] MEDS ORDERED: DOPamine 400mg/250ml D5W 400 MG/250 ML BAG IV ONE ×2 (12:50→12:51)
[2016-10-04] MEDS ORDERED: Midazolam 2 MG/2 ML VIAL IV ONE (12:52)
--- NOTE | 2016-10-04 17:13 | RAD ---
PROCEDURE: Radiographs of the chest and abdomen (obstructive series) HISTORY: abd pain,, vomiting x 4 COMPARISON: Correlation made with prior CT scan of the abdomen pelvis dated 08/12/2016 TECHNIQUE: AP radiograph of the chest, with upright and supine radiographs of the abdomen. FINDINGS: CHEST: Lungs: Mild bibasilar atelectasis. Cardiovascular: Normal-sized heart. No significant pulmonary vascular congestive changes. . Pleura: No pleural fluid. No pneumothorax. Other findings: None. ABDOMEN AND PELVIS: Bowel: Nonobstructive/nonspecific bowel gas pattern. . Free air: No gross free intraperitoneal air. Bones: Unremarkable. Other findings: In situ IVC filter. Deformity of the right femoral head and widening of the acetabulum with secondary degenerative osteoarthritis. Rule out the sequela of old trauma. . IMPRESSION: Mild bibasilar atelectasis. No evidence of obstruction. Deformity of the right femoral head and acetabulum with degenerative osteoarthritis ; rule out sequela of old trauma
--- NOTE | 2016-10-04 17:20 | RAD ---
PROCEDURE: CHEST RADIOGRAPH, 1 VIEW The study is limited due to patient rotation to the right side. HISTORY: desat COMPARISON: None available. FINDINGS: LUNGS: Poor inspiration with low lung volumes, crowded bronchovascular markings and mild bibasilar atelectasis left greater than right. Questionable small left-sided effusion. PLEURA: No pneumothorax or pleural fluid seen. CARDIOVASCULAR: Heart size is difficult to assess due to rotation and poor inspiration however heart appears enlarged. OSSEOUS STRUCTURES: Degenerative changes both shoulder girdles. Mild multilevel degenerative spondylosis of the thoracic spine. VISUALIZED UPPER ABDOMEN: Normal. OTHER FINDINGS: None. IMPRESSION: Poor inspiration with low lung volumes, crowded bronchovascular markings and mild bibasilar atelectasis left greater than right. Questionable small left-sided effusion. .
--- NOTE | 2016-10-04 18:28 | CP.PCM.PN ---
<Bethanie Ken - Last Filed: 10/04/16 18:25> Subjective - Date & Time of Evaluation Date of Evaluation: 10/04/16 Time of Evaluation: 18:25 - Subjective Subjective: Surgery Pt s&e. Pt became hypotensive this AM. Central line placed on R groin by surgical team. Pt pain controlled. Denies F/C/N/V/D/CP/SOB. Objective - Vital Signs/Intake and Output Vital Signs (last 24 hours): Temp Pulse Resp BP Pulse Ox 99.7 F H 98 H 32 H 117/60 99 10/04/16 16:00 10/04/16 18:00 10/04/16 18:00 10/04/16 18:00 10/04/16 18:00 Intake and Output: 10/04/16 10/04/16 06:59 18:59 Intake Total 1675 3100 Output Total 100 255 Balance 1575 2845 - Medications Medications: Current Medications Famotidine (Pepcid) 20 mg IVP Q12 [facility] Last Admin: 10/04/16 10:22 Dose: 20 mg Hydromorphone HCl (Dilaudid) 1 mg IVP Q3 PRN PRN Reason: Pain, severe (8-10) Last Admin: 10/04/16 16:32 Dose: 1 mg Sodium Chloride (Sodium Chloride 0.9%) 1,000 mls @ 1,000 mls/hr IV .Q1H [facility] Stop: 10/05/16 03:16 Last Admin: 10/04/16 04:58 Dose: 1,000 mls/hr Vancomycin HCl 1 gm/ Sodium (Chloride) 250 mls @ 166.667 mls/hr IVPB Q12 [facility] Last Admin: 10/04/16 10:19 Dose: 166.667 mls/hr Sodium Chloride (Sodium Chloride 0.9%) 1,000 mls @ 250 mls/hr IV .Q4H [facility] Stop: 10/05/16 04:45 Last Admin: 10/04/16 17:40 Dose: 250 mls/hr Meropenem 1 gm/ Sodium (Chloride) 100 mls @ 100 mls/hr IVPB Q12 [facility] Insulin Human Regular (Humulin R) 0 units SC ACHS [facility] PRN Reason: Protocol Last Admin: 10/04/16 11:27 Dose: Not Given Metoprolol Tartrate (Lopressor) 5 mg IVP Q6 [facility] Last Admin: 10/04/16 16:30 Dose: Not Given - Labs Labs: 10/04/16 06:00 10/04/16 02:06 - Head Exam Head Exam: ATRAUMATIC, NORMAL INSPECTION, NORMOCEPHALIC - Eye Exam Eye Exam: EOMI, Normal appearance, PERRL Pupil Exam: NORMAL ACCOMODATION, PERRL - ENT Exam ENT Exam: Mucous Membranes Moist, Normal Exam - Neck Exam Neck Exam: Full ROM, Normal Inspection. absent: Lymphadenopathy - Respiratory Exam Respiratory Exam: Clear to Ausculation Bilateral, NORMAL BREATHING PATTERN - Cardiovascular Exam Cardiovascular Exam: REGULAR RHYTHM, +S1, +S2. absent: Murmur - GI/Abdominal Exam GI & Abdominal Exam: Soft, Tenderness, Normal Bowel Sounds. absent: Distended, Firm, Guarding, Rigid Additional comments: Epigatric TTP - Exam Exam: NORMAL INSPECTION - Extremities Exam Extremities Exam: Full ROM, Normal Capillary Refill, Normal Inspection. absent : Joint Swelling, Pedal Edema - Back Exam Back Exam: NORMAL INSPECTION - Neurological Exam Neurological Exam: Alert, Awake, CN II-XII Intact, Normal Gait, Oriented x3 - Psychiatric Exam Psychiatric exam: Normal Affect, Normal Mood - Skin Skin Exam: Dry, Intact, Normal Color, Warm Assessment and Plan - Assessment and Plan (Free Text) Assessment: 76F with abdominal pain with sepsis, possibly 2/2 to cholangitis/Pancreatitis/ cholecystitis LIpase 10k->9k Lactate 4.5->1.9 WBC21->11 Plan: -f/u US report - NPO, pain control, IV fluids - ABX - GI consult - Possible SANDIP Reddy <Kyle Reddy - Last Filed: 10/04/16 21:08> Objective - Vital Signs/Intake and Output Vital Signs (last 24 hours): Temp Pulse Resp BP Pulse Ox 99.2 F 104 H 35 H 129/71 96 10/04/16 20:00 10/04/16 20:00 10/04/16 20:00 10/04/16 20:00 10/04/16 20:00 Intake and Output: 10/04/16 10/05/16 18:59 06:59 Intake Total 3100 250 Output Total 255 Balance 2845 250 - Medications Medications: Current Medications Famotidine (Pepcid) 20 mg IVP Q12 [facility] Last Admin: 10/04/16 10:22 Dose: 20 mg Hydromorphone HCl (Dilaudid) 1 mg IVP Q3 PRN PRN Reason: Pain, severe (8-10) Sodium Chloride (Sodium Chloride 0.9%) 1,000 mls @ 1,000 mls/hr IV .Q1H [facility] Stop: 10/05/16 03:16 Last Admin: 10/04/16 04:58 Dose: 1,000 mls/hr Vancomycin HCl 1 gm/ Sodium (Chloride) 250 mls @ 166.667 mls/hr IVPB Q12 [facility] Last Admin: 10/04/16 20:04 Dose: 166.667 mls/hr Sodium Chloride (Sodium Chloride 0.9%) 1,000 mls @ 250 mls/hr IV .Q4H [facility] Stop: 10/05/16 04:45 Last Admin: 10/04/16 17:40 Dose: 250 mls/hr Meropenem 1 gm/ Sodium (Chloride) 100 mls @ 100 mls/hr IVPB Q12 [facility] Last Admin: 10/04/16 20:03 Dose: 100 mls/hr Insulin Human Regular (Humulin R) 0 units SC ACHS [facility] PRN Reason: Protocol Last Admin: 10/04/16 11:27 Dose: Not Given Metoprolol Tartrate (Lopressor) 5 mg IVP Q6 [facility] Last Admin: 10/04/16 16:30 Dose: Not Given - Labs Labs: 10/04/16 06:00 10/04/16 02:06 Attending/Attestation - Attestation I have personally seen and examined this patient.: Yes I have fully participated in the care of the patient.: Yes I have reviewed all pertinent clinical information, including history, physical exam and plan: Yes Notes (Text): 10/04/16 21:07 Pt was seen and examined at bedside Agree with above note and assessment Pt with Cholecystitis and GS pancreatitis IV antibiotics Repeat LFTs and Lipase in am Plan d.w pt in detail Risk and benefit explained in detail.
--- NOTE | 2016-10-04 19:11 | US ---
HISTORY: Rule out cholecystitis COMPARISON: The study was read in conjunction with CT scan abdomen pelvis 10/04/2016 at 0032 hours. TECHNIQUE: Sonographic evaluation of the right upper quadrant of the abdomen. . Note that the examination is limited due to body habitus and position. FINDINGS: LIVER: The liver is enlarged measuring approximately 19.3 cm in CC dimension. Liver exhibits increased attenuation consistent with fatty infiltration however other infiltrative hepatocellular disease process not completely excluded. There appears to be a small amount of perihepatic ascites as well. GALLBLADDER: Gallbladder is physiologically distended. Intraluminal gallbladder calculi. Mild gallbladder wall thickening and or edema. No sonographic Potter sign documented by the technologist. COMMON BILE DUCT: Common bile duct measures 1.6 mm mm. No stones. No dilatation. PANCREAS: Not visualized RIGHT KIDNEY: Not visualized AORTA: No aneurysmal dilatation. IVC: Unremarkable. OTHER FINDINGS: None . IMPRESSION: Very limited study. Cholelithiasis with gallbladder wall thickening or edema. Rule out cholecystitis. Hepatomegaly with fatty hepatic infiltration. . There also appears to be small amount of perihepatic ascites Note these findings were discussed with hospitalist Dr. Ken at approximately 7 p.m. with written down and read back verification.
[2016-10-04] MEDS: Meropenem 1 GM in Sodium Chloride 0.9% 100 ML IVPB SCH (20:03)
[2016-10-05] MEDS ORDERED: Sodium Chloride 0.9% 1,000 ML IV SCH (00:27)
[2016-10-05] MEDS: Metoprolol 1 mg/ml Inj IVP SCH ×2 (05:22→09:04)
--- NOTE | 2016-10-05 05:29 | PN ---
DATE: 10/04/2016 CRITICAL CARE PROGRESS NOTE LOCATION: The patient in ICU, bed 425. TIME SPENT: 60 minutes. SUBJECTIVE: The patient is seen and evaluated at the bedside. Events since admission reviewed. Overnight events not discussed with overnight hospitalist, Dr. Gardner. Past medical, surgical and social history reviewed. A 76-year-old female from home; history of chronic pancreatitis, diabetes mellitus type 2, hypertension, hyperlipidemia and periampullary diverticula noted in [facility], presented and admitted through emergency room with diffuse right upper quadrant pain without nausea or vomiting. CT of the abdomen and pelvis noted distended gallbladder with common bile duct dilatation, elevated lipase and atrophic pancreas consistent with acute cholecystitis/pancreatitis. The patient is a nonsmoker, non-EtOH or drug user, but has a history of anxiety and depression. The patient's surgical history has noted a carotid endarterectomy surgery and shoulder surgery, unclear details. Since admission, the patient remained tachycardic with [id number] distress associated with right upper quadrant pain. PHYSICAL EXAMINATION: VITAL SIGNS: Temperature 98.5, heart rate 97, blood pressure 134/76, reduced to 95/65 on IV fluid and currently on indapamide, respiratory rate 29 thoracoabdominal, saturating 97% on 100% nonrebreather. Intake and output revealed 1675, output 100, positive balance 1575. Weight 219 pounds. HEAD, EYES, EARS, NOSE, AND THROAT: Pupils are reactive. Conjunctivae pink. Sclerae anicteric. Oral mucosa moist. CHEST: Clear to auscultation. Bilateral breath sounds. HEART: Rhythm regular. S1 and S2 rapid. ABDOMEN: Bowel sounds present, diminished. Tenderness in the right upper quadrant. No rebound tenderness. EXTREMITIES: Shows no edema. NEUROLOGIC: Nonfocal. LABORATORY DATA: WBC 11.8, hemoglobin 15.3, hematocrit 47.1 and platelet count 238. SMA-7: Sodium 134, potassium 4, chloride 97, CO2 of 23, blood urea nitrogen 19, creatinine 0.6, random glucose 143, calcium 8.7, total bilirubin 0.9, AST 41, ALT 31, alkaline phosphatase 120, total protein 8.1, albumin 4.2, globulin 3.8, triglycerides 72, total cholesterol 203, LDL 140, HDL 41, lipase trending down currently 5357. Urinalysis: Esterase negative, rbc's 4, wbc's 2, squamous epithelial cell 3, bacteria moderate, granular cast 1. Chest x-ray: Poor inspiratory effort, no acute infiltrate are noted. Ultrasound of the abdomen, result pending. 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 CURRENT MEDICATIONS: Pepcid 20 mg IV q. 12, Dilaudid 1 mg IV push q. 3 p.r.n., Accu-Chek with regular insulin coverage, meropenem 1 g IV q. 12, Lopressor 5 mg IV q. 6 hours on hold secondary to low blood pressure, sodium chloride at 250 mL per hour, vancomycin 1 g IV q. 12 hours. MICROBIOLOGY: Blood culture, no growth reported. Urine culture, no growth reported. IMPRESSION AND PLAN: 1. Neurologic: Systemic inflammatory response syndrome/septic metabolic encephalopathy, more wakeful than before, able to follow commands appropriate. 2. Pulmonary: ABG shows hypoxemia, on oxygen supplement, possible atelectasis associated right upper quadrant abdominal pain with reduced inspiratory effort. We will monitor for evolving pleural effusion and/or hypoxic respiratory insufficiency. 3. Gastrointestinal. Acute cholecystitis , acute on chronic pancreatitis, abnormal LFT. 4. Renal, stable, but urine output reduced. 5. Infectious disease. Pancreatitis/biliary cholecystitis seen by ID. Recommended vancomycin. Keep trough level less than 50, meropenem 1 g IV q. 12. 6. Hematology. Leukocytosis secondary to systemic inflammatory response syndrome associated with pancreatitis/cholecystitis trending down, closely monitor for further resolution of leukocytosis. Continue gastrointestinal and deep venous thrombosis prophylaxis. Follow lactate level, currently trending down from 4.05 to 1.9. Adarsh Ha MD MTDStaci
[2016-10-05 05:53] LABS: BASO % 0.1 % (0.0-2.0); HEMATOCRIT 40.4 % (34.0-47.0); LYMPH # 0.8 K/uL (1.0-4.3); LYMPH % 3.9 % (20.0-40.0); MEAN CELL VOLUME 91.4 fl (81.0-99.0); MEAN CORPUSCULAR HEMOGLOBIN 29.6 pg (27.0-31.0); MEAN CORPUSCULAR HGB CONC 32.4 g/dL (33.0-37.0); MEAN PLATELET VOLUME 9.1 fl (7.2-11.7); MONO # 1.1 K/uL (0.0-0.8); MONO % 5.1 % (0.0-10.0); NEUT # 19.4 K/uL (1.8-7.0); NEUT % 90.9 % (50.0-75.0); PLATELET COUNT 221 K/uL (130-400); RED CELL DISTRIBUTION WIDTH 13.7 % (11.5-14.5); WHITE BLOOD COUNT 21.4 K/uL (4.8-10.8)
[2016-10-05 06:12] LABS: ALB/GLOB RATIO 0.9 (1.0-2.1); BILIRUBIN,TOTAL 0.8 mg/dl (0.2-1.3); CALCIUM 7.6 mg/dL (8.4-10.2); POTASSIUM 3.6 MMOL/L (3.6-5.0)
[2016-10-05] MEDS: Insulin Regular 100 units/ml SC SCH ×4 (06:37→23:22)
[2016-10-05 07:45] LABS: NEUTROPHIL 80 % (42-75); REACTIVE LYMPHOCYTES 1 % (0-0); TOTAL CELLS COUNTED 100
[2016-10-05] MEDS: Meropenem 1 GM in Sodium Chloride 0.9% 100 ML IVPB SCH ×2 (08:24→20:28)
--- NOTE | 2016-10-05 09:38 | CP.PCM.PN ---
<Bethanie Ken - Last Filed: 10/05/16 09:36> Subjective - Date & Time of Evaluation Date of Evaluation: 10/05/16 Time of Evaluation: 09:36 - Subjective Subjective: Surgery pt s&e. NAEON. Denies F/C/N/V/D/CP/SOB. Pain controlled. Objective - Vital Signs/Intake and Output Vital Signs (last 24 hours): Temp Pulse Resp BP Pulse Ox 97.9 F 106 H 20 115/65 96 10/05/16 08:05 10/05/16 09:04 10/05/16 08:05 10/05/16 09:04 10/05/16 08:05 Intake and Output: 10/05/16 10/05/16 06:59 18:59 Intake Total 2017 150 Output Total 500 50 Balance 1517 100 - Medications Medications: Current Medications Famotidine (Pepcid) 20 mg IVP Q12 [facility] Last Admin: 10/05/16 08:24 Dose: 20 mg Hydromorphone HCl (Dilaudid) 1 mg IVP Q3 PRN PRN Reason: Pain, severe (8-10) Last Admin: 10/05/16 08:23 Dose: 1 mg Vancomycin HCl 1 gm/ Sodium (Chloride) 250 mls @ 166.667 mls/hr IVPB Q12 [facility] Last Admin: 10/05/16 08:25 Dose: 166.667 mls/hr Meropenem 1 gm/ Sodium (Chloride) 100 mls @ 100 mls/hr IVPB Q12 [facility] Last Admin: 10/05/16 08:24 Dose: 100 mls/hr Insulin Human Regular (Humulin R) 0 units SC ACHS [facility] PRN Reason: Protocol Last Admin: 10/05/16 06:37 Dose: Not Given Metoprolol Tartrate (Lopressor) 5 mg IVP Q6 [facility] Last Admin: 10/05/16 09:04 Dose: 5 mg - Labs Labs: 10/05/16 05:40 10/05/16 05:40 - Constitutional Appears: No Acute Distress - Head Exam Head Exam: ATRAUMATIC, NORMAL INSPECTION, NORMOCEPHALIC - Eye Exam Eye Exam: EOMI, Normal appearance, PERRL Pupil Exam: NORMAL ACCOMODATION, PERRL - ENT Exam ENT Exam: Mucous Membranes Moist, Normal Exam - Neck Exam Neck Exam: Full ROM, Normal Inspection. absent: Lymphadenopathy - Respiratory Exam Respiratory Exam: Clear to Ausculation Bilateral, NORMAL BREATHING PATTERN - Cardiovascular Exam Cardiovascular Exam: REGULAR RHYTHM, +S1, +S2. absent: Murmur - GI/Abdominal Exam GI & Abdominal Exam: Soft, Tenderness, Normal Bowel Sounds. absent: Distended, Guarding, Rigid Additional comments: Epigastric TTP. - Exam Exam: NORMAL INSPECTION Additional comments: R groin cathter in place - Extremities Exam Extremities Exam: Full ROM - Back Exam Back Exam: NORMAL INSPECTION - Neurological Exam Neurological Exam: Alert, Awake, CN II-XII Intact, Oriented x3 - Psychiatric Exam Psychiatric exam: Normal Affect, Normal Mood - Skin Skin Exam: Dry, Intact, Normal Color, Warm Assessment and Plan - Assessment and Plan (Free Text) Assessment: 6F with abdominal pain with sepsis, possibly 2/2 to cholangitis/gallstone Pancreatitis/cholecystitis LIpase 10k->9k Lactate 4.5->1.9 WBC21->11->21 Afebrile Plan: -f/u AM labs : lipase, LFT -f/u US report - NPO, pain control, IV fluids - ABX - GI consult - Possible SANDIP Reddy <Kyle Reddy - Last Filed: 10/05/16 14:17> Objective - Vital Signs/Intake and Output Vital Signs (last 24 hours): Temp Pulse Resp BP Pulse Ox 99.9 F H 93 H 21 123/56 L 97 10/05/16 12:00 10/05/16 12:00 10/05/16 12:00 10/05/16 12:00 10/05/16 12:00 Intake and Output: 10/05/16 10/05/16 06:59 18:59 Intake Total 2016 1100 Output Total 500 225 Balance 1517 875 - Medications Medications: Current Medications Famotidine (Pepcid) 20 mg IVP Q12 [facility] Last Admin: 10/05/16 08:24 Dose: 20 mg Hydromorphone HCl (Dilaudid) 1 mg IVP Q3 PRN PRN Reason: Pain, severe (8-10) Last Admin: 10/05/16 11:29 Dose: 1 mg Vancomycin HCl 1 gm/ Sodium (Chloride) 250 mls @ 166.667 mls/hr IVPB Q12 [facility] Last Admin: 10/05/16 08:25 Dose: 166.667 mls/hr Meropenem 1 gm/ Sodium (Chloride) 100 mls @ 100 mls/hr IVPB Q12 [facility] Last Admin: 10/05/16 08:24 Dose: 100 mls/hr Insulin Human Regular (Humulin R) 0 units SC ACHS [facility] PRN Reason: Protocol Last Admin: 10/05/16 11:16 Dose: Not Given Metoprolol Tartrate (Lopressor) 5 mg IVP Q6 [facility] Last Admin: 10/05/16 09:04 Dose: 5 mg - Labs Labs: 10/05/16 05:40 10/05/16 05:40 Attending/Attestation - Attestation I have personally seen and examined this patient.: Yes I have fully participated in the care of the patient.: Yes I have reviewed all pertinent clinical information, including history, physical exam and plan: Yes Notes (Text): 10/05/16 14:16 Pt was seen and examined at bedside Agree with above note and assessment Pt with Cholelithiasis and GS Pancreatitis Repeat LFTs and Lipase NPO, IVF IV antibiotics Plan d/w pt in detail Risk and benefit explained in detail.
--- NOTE | 2016-10-05 09:52 | CP.CCUPN ---
CCU Subjective - Physician Review Subjective (Free Text): Awake and alert, appears confused and disoriented, no obvious distress, temps mostly 99F, off Dopamine drip since midnight, was oliguric, ++fluid balance noted and IVFs ongoing, now at 150ml/hr. Also, getting IV Lopressor push 5mg Q6H for tachycardia. On 50% VM with 97% SPO2, tolerated switchover to nasal cannula. ROS: Unobtainable and unreliable from confused patient. Other PMSFH: All recent nursing and physician documentation reviewed and no new information noted relevant to current problems. MAJOR IMPRESSIONS: 1. Sepsis with Shock 2' Biliary Tract Disease 2. Acute Cholecystitis with Cholelithiasis 3. r/o Cholangitis, CBD Obstruction 4. r/o Pancreatitis 5. Azotemia with Hyperkalemia 6. h/o IVC Filter placement PLAN: 1. Aggressive IVF hydration with LR. Lactate level has normalized from 4.5 to 1.9 yesterday. 2. Repeat Lipase markers noted. US Abdomen report reviewed. 3. Weaned off Dopamine, was being counteracted with Lopressor IVP ? 4. Empiric abx coverage as per ID. 5. Repeat CXR. CCU Objective - Vital Signs / Intake & Output Vital Signs (Last 4 hours): Vital Signs Temp Pulse Resp BP Pulse Ox 10/05/16 09:04 106 H 115/65 10/05/16 08:05 97.9 F 87 20 122/69 96 10/05/16 06:43 93 H 24 102/56 L 94 L 10/05/16 06:00 96 H 25 H 111/57 L 96 Intake and Output (Last 8hrs): Intake & Output 10/04/16 10/05/16 10/05/16 22:59 06:59 14:59 Intake Total 1646 1371 150 Output Total 175 500 50 Balance 1471 871 100 Weight 230 lb Intake: IV 1296 1271 150 Intake, Piggyback 350 100 Output: Urine 175 500 50 Urethral (Reagan) 175 500 50 - Physical Exam Head: Positive for: Normocephalic Pupils: Positive for: PERRL Extroacular Muscles: Positive for: EOMI Conjunctiva: Negative for: Injected, Icteric Mouth: Positive for: Moist Mucous Membranes Neck: Positive for: Normal Range of Motion. Negative for: JVD, Lymphadenopathy Respiratory/Chest: Positive for: Decreased Breath Sounds. Negative for: Accessory Muscle Use, Wheezes Cardiovascular: Positive for: Regular Rate and Rhythm, Tachycardic. Negative for: Murmurs, Rub Abdomen: Positive for: Normal Bowel Sounds. Negative for: Tenderness, Distention Lower Extremity: Negative for: Edema, CALF TENDERNESS, Cyanosis Skin: Positive for: Warm. Negative for: Rashes Psychiatric: Positive for: Alert, Oriented x 3 - Medications Active Medications: Active Medications Generic Name Dose Route Start Last Admin Trade Name Freq PRN Reason Stop Dose Admin Famotidine 20 mg 10/04/16 09:00 10/05/16 08:24 Pepcid IVP 20 mg Q12 PATTI Administration Hydromorphone HCl 1 mg 10/04/16 21:15 10/05/16 08:23 Dilaudid IVP 1 mg Q3 PRN Administration Pain, severe (8-10) Vancomycin HCl 1 gm/ Sodium 250 mls @ 166.667 mls/hr 10/04/16 09:00 10/05/16 08:25 Chloride IVPB 166.667 mls/hr Q12 PATTI Administration Meropenem 1 gm/ Sodium 100 mls @ 100 mls/hr 10/04/16 21:00 10/05/16 08:24 Chloride IVPB 100 mls/hr Q12 PATTI Administration Insulin Human Regular 0 units 10/04/16 07:30 10/05/16 06:37 Humulin R SC Not Given ACHS [facility] Protocol Metoprolol Tartrate 5 mg 10/04/16 04:00 10/05/16 09:04 Lopressor IVP 5 mg Q6 PATTI Administration - Patient Studies Lab Studies: Lab Studies 10/05/16 10/05/16 10/05/16 Range/Units 05:40 05:40 04:29 WBC 21.4 H D (4.8-10.8) K/uL RBC 4.42 (3.80-5.20) Mil/uL Hgb 13.1 D (12.0-16.0) g/dL Hct 40.4 (34.0-47.0) % MCV 91.4 (81.0-99.0) fl MCH 29.6 (27.0-31.0) pg MCHC 32.4 L (33.0-37.0) g/dL RDW 13.7 (11.5-14.5) % Plt Count 221 (130-400) K/uL MPV 9.1 (7.2-11.7) fl Neut % (Auto) 90.9 H (50.0-75.0) % Lymph % (Auto) 3.9 L (20.0-40.0) % [place] % (Auto) 5.1 (0.0-10.0) % Eos % (Auto) 0.0 (0.0-4.0) % Baso % (Auto) 0.1 (0.0-2.0) % Neut # 19.4 H (1.8-7.0) K/uL Lymph # 0.8 L (1.0-4.3) K/uL [place] # 1.1 H (0.0-0.8) K/uL Eos # 0.0 (0.0-0.7) K/uL Baso # 0.0 (0.0-0.2) K/uL Neutrophils % (Manual) 80 H (42-75) % Band Neutrophils % 5 H (0-2) % Lymphocytes % (Manual) 7 L (20-50) % Reactive Lymphs % 1 H (0-0) % Monocytes % (Manual) 7 (0-10) % Platelet Estimate Normal (NORMAL) pCO2 (35-45) mm/Hg pO2 (80-100) mm/Hg HCO3 (21-28) mmol/L ABG pH (7.35-7.45) ABG Total CO2 (22-28) mmol/L ABG O2 Saturation (95-98) % ABG O2 Content (15-23) ML/dL ABG Base Excess (-2.0-3.0) mmol/L ABG Hemoglobin (11.7-17.4) g/dL ABG Carboxyhemoglobin (0.5-1.5) % POC ABG HHb (Measured) (0.0-5.0) % ABG Methemoglobin (0.0-3.0) % ABG O2 Capacity (16-24) mL/dL Mahesh Test A-a O2 Difference mm/Hg Hgb O2 Saturation (95.0-98.0) % FiO2 % Blood Gas Comments Crit Value Called By Crit Value Read Back Sodium 139 (132-148) mmol/l Potassium 3.6 (3.6-5.0) MMOL/L Chloride 108 H (98-107) mmol/L Carbon Dioxide 20 L (22-30) mmol/L Anion Gap 15 (10-20) BUN 32 H (7-17) mg/dl Creatinine 1.1 (0.7-1.2) mg/dL Est GFR ( Amer) 58 Est GFR (Non-Af Amer) 48 POC Glucose (mg/dL) 99 (65-110) mg/dL Random Glucose 110 H (65-105) mg/dL Calcium 7.6 L (8.4-10.2) mg/dL Total Bilirubin 0.8 (0.2-1.3) mg/dl AST 24 (14-36) U/L ALT 23 (9-52) U/L Alkaline Phosphatase 65 (38-126) U/L Total Protein 6.0 L (6.3-8.2) G/DL Albumin 2.9 L D (3.5-5.0) g/dL Globulin 3.1 (2.2-3.9) gm/dL Albumin/Globulin Ratio 0.9 L (1.0-2.1) 10/04/16 10/04/16 10/04/16 Range/Units 19:58 16:42 11:08 WBC (4.8-10.8) K/uL RBC (3.80-5.20) Mil/uL Hgb (12.0-16.0) g/dL Hct (34.0-47.0) % MCV (81.0-99.0) fl MCH (27.0-31.0) pg MCHC (33.0-37.0) g/dL RDW (11.5-14.5) % Plt Count (130-400) K/uL MPV (7.2-11.7) fl Neut % (Auto) (50.0-75.0) % Lymph % (Auto) (20.0-40.0) % [place] % (Auto) (0.0-10.0) % Eos % (Auto) (0.0-4.0) % Baso % (Auto) (0.0-2.0) % Neut # (1.8-7.0) K/uL Lymph # (1.0-4.3) K/uL [place] # (0.0-0.8) K/uL Eos # (0.0-0.7) K/uL Baso # (0.0-0.2) K/uL Neutrophils % (Manual) (42-75) % Band Neutrophils % (0-2) % Lymphocytes % (Manual) (20-50) % Reactive Lymphs % (0-0) % Monocytes % (Manual) (0-10) % Platelet Estimate (NORMAL) pCO2 (35-45) mm/Hg pO2 (80-100) mm/Hg HCO3 (21-28) mmol/L ABG pH (7.35-7.45) ABG Total CO2 (22-28) mmol/L ABG O2 Saturation (95-98) % ABG O2 Content (15-23) ML/dL ABG Base Excess (-2.0-3.0) mmol/L ABG Hemoglobin (11.7-17.4) g/dL ABG Carboxyhemoglobin (0.5-1.5) % POC ABG HHb (Measured) (0.0-5.0) % ABG Methemoglobin (0.0-3.0) % ABG O2 Capacity (16-24) mL/dL Mahesh Test A-a O2 Difference mm/Hg Hgb O2 Saturation (95.0-98.0) % FiO2 % Blood Gas Comments Crit Value Called By Crit Value Read Back Sodium (132-148) mmol/l Potassium (3.6-5.0) MMOL/L Chloride (98-107) mmol/L Carbon Dioxide (22-30) mmol/L Anion Gap (10-20) BUN (7-17) mg/dl Creatinine (0.7-1.2) mg/dL Est GFR ( Amer) Est GFR (Non-Af Amer) POC Glucose (mg/dL) 113 H 120 H 133 H (65-110) mg/dL Random Glucose (65-105) mg/dL Calcium (8.4-10.2) mg/dL Total Bilirubin (0.2-1.3) mg/dl AST (14-36) U/L ALT (9-52) U/L Alkaline Phosphatase (38-126) U/L Total Protein (6.3-8.2) G/DL Albumin (3.5-5.0) g/dL Globulin (2.2-3.9) gm/dL Albumin/Globulin Ratio (1.0-2.1) 10/04/16 Range/Units 10:00 WBC (4.8-10.8) K/uL RBC (3.80-5.20) Mil/uL Hgb (12.0-16.0) g/dL Hct (34.0-47.0) % MCV (81.0-99.0) fl MCH (27.0-31.0) pg MCHC (33.0-37.0) g/dL RDW (11.5-14.5) % Plt Count (130-400) K/uL MPV (7.2-11.7) fl Neut % (Auto) (50.0-75.0) % Lymph % (Auto) (20.0-40.0) % [place] % (Auto) (0.0-10.0) % Eos % (Auto) (0.0-4.0) % Baso % (Auto) (0.0-2.0) % Neut # (1.8-7.0) K/uL Lymph # (1.0-4.3) K/uL [place] # (0.0-0.8) K/uL Eos # (0.0-0.7) K/uL Baso # (0.0-0.2) K/uL Neutrophils % (Manual) (42-75) % Band Neutrophils % (0-2) % Lymphocytes % (Manual) (20-50) % Reactive Lymphs % (0-0) % Monocytes % (Manual) (0-10) % Platelet Estimate (NORMAL) pCO2 33 L (35-45) mm/Hg pO2 69 L (80-100) mm/Hg HCO3 23.1 (21-28) mmol/L ABG pH 7.42 (7.35-7.45) ABG Total CO2 22.4 (22-28) mmol/L ABG O2 Saturation 96.4 (95-98) % ABG O2 Content 20.2 (15-23) ML/dL ABG Base Excess -2.2 L (-2.0-3.0) mmol/L ABG Hemoglobin 15.5 (11.7-17.4) g/dL ABG Carboxyhemoglobin 2.1 H (0.5-1.5) % POC ABG HHb (Measured) 3.5 (0.0-5.0) % ABG Methemoglobin 1.7 (0.0-3.0) % ABG O2 Capacity 21.0 (16-24) mL/dL Mahesh Test Yes A-a O2 Difference 89.0 mm/Hg Hgb O2 Saturation 92.8 L (95.0-98.0) % FiO2 28.0 % Blood Gas Comments 2l/m'nc rr Crit Value Called By 15 Crit Value Read Back N Sodium (132-148) mmol/l Potassium (3.6-5.0) MMOL/L Chloride (98-107) mmol/L Carbon Dioxide (22-30) mmol/L Anion Gap (10-20) BUN (7-17) mg/dl Creatinine (0.7-1.2) mg/dL Est GFR ( Amer) Est GFR (Non-Af Amer) POC Glucose (mg/dL) (65-110) mg/dL Random Glucose (65-105) mg/dL Calcium (8.4-10.2) mg/dL Total Bilirubin (0.2-1.3) mg/dl AST (14-36) U/L ALT (9-52) U/L Alkaline Phosphatase (38-126) U/L Total Protein (6.3-8.2) G/DL Albumin (3.5-5.0) g/dL Globulin (2.2-3.9) gm/dL Albumin/Globulin Ratio (1.0-2.1) Laboratory Results - last 24 hr 10/04/16 10/04/16 10/04/16 10:00 11:08 16:42 WBC RBC Hgb Hct MCV MCH MCHC RDW Plt Count MPV Neut % (Auto) Lymph % (Auto) [place] % (Auto) Eos % (Auto) Baso % (Auto) Neut # Lymph # [place] # Eos # Baso # Neutrophils % (Manual) Band Neutrophils % Lymphocytes % (Manual) Reactive Lymphs % Monocytes % (Manual) Platelet Estimate pCO2 33 L pO2 69 L HCO3 23.1 ABG pH 7.42 ABG Total CO2 22.4 ABG O2 Saturation 96.4 ABG O2 Content 20.2 ABG Base Excess -2.2 L ABG Hemoglobin 15.5 ABG Carboxyhemoglobin 2.1 H POC ABG HHb (Measured) 3.5 ABG Methemoglobin 1.7 ABG O2 Capacity 21.0 Mahesh Test Yes A-a O2 Difference 89.0 Hgb O2 Saturation 92.8 L FiO2 28.0 Blood Gas Comments 2l/m'nc rr Crit Value Called By 15 Crit Value Read Back N Sodium Potassium Chloride Carbon Dioxide Anion Gap BUN Creatinine Est GFR ( Amer) Est GFR (Non-Af Amer) POC Glucose (mg/dL) 133 H 120 H Random Glucose Calcium Total Bilirubin AST ALT Alkaline Phosphatase Total Protein Albumin Globulin Albumin/Globulin Ratio 10/04/16 10/05/16 10/05/16 19:58 04:29 05:40 WBC 21.4 H D RBC 4.42 Hgb 13.1 D Hct 40.4 MCV 91.4 MCH 29.6 MCHC 32.4 L RDW 13.7 Plt Count 221 MPV 9.1 Neut % (Auto) 90.9 H Lymph % (Auto) 3.9 L [place] % (Auto) 5.1 Eos % (Auto) 0.0 Baso % (Auto) 0.1 Neut # 19.4 H Lymph # 0.8 L [place] # 1.1 H Eos # 0.0 Baso # 0.0 Neutrophils % (Manual) 80 H Band Neutrophils % 5 H Lymphocytes % (Manual) 7 L Reactive Lymphs % 1 H Monocytes % (Manual) 7 Platelet Estimate Normal pCO2 pO2 HCO3 ABG pH ABG Total CO2 ABG O2 Saturation ABG O2 Content ABG Base Excess ABG Hemoglobin ABG Carboxyhemoglobin POC ABG HHb (Measured) ABG Methemoglobin ABG O2 Capacity Mahesh Test A-a O2 Difference Hgb O2 Saturation FiO2 Blood Gas Comments Crit Value Called By Crit Value Read Back Sodium Potassium Chloride Carbon Dioxide Anion Gap BUN Creatinine Est GFR ( Amer) Est GFR (Non-Af Amer) POC Glucose (mg/dL) 113 H 99 Random Glucose Calcium Total Bilirubin AST ALT Alkaline Phosphatase Total Protein Albumin Globulin Albumin/Globulin Ratio 10/05/16 05:40 WBC RBC Hgb Hct MCV MCH MCHC RDW Plt Count MPV Neut % (Auto) Lymph % (Auto) [place] % (Auto) Eos % (Auto) Baso % (Auto) Neut # Lymph # [place] # Eos # Baso # Neutrophils % (Manual) Band Neutrophils % Lymphocytes % (Manual) Reactive Lymphs % Monocytes % (Manual) Platelet Estimate pCO2 pO2 HCO3 ABG pH ABG Total CO2 ABG O2 Saturation ABG O2 Content ABG Base Excess ABG Hemoglobin ABG Carboxyhemoglobin POC ABG HHb (Measured) ABG Methemoglobin ABG O2 Capacity Mahesh Test A-a O2 Difference Hgb O2 Saturation FiO2 Blood Gas Comments Crit Value Called By Crit Value Read Back Sodium 139 Potassium 3.6 Chloride 108 H Carbon Dioxide 20 L Anion Gap 15 BUN 32 H Creatinine 1.1 Est GFR ( Amer) 58 Est GFR (Non-Af Amer) 48 POC Glucose (mg/dL) Random Glucose 110 H Calcium 7.6 L Total Bilirubin 0.8 AST 24 ALT 23 Alkaline Phosphatase 65 Total Protein 6.0 L Albumin 2.9 L D Globulin 3.1 Albumin/Globulin Ratio 0.9 L Fingerstick Blood Sugar Results: 99 Review of Systems - Review of Systems All systems: reviewed and no additional remarkable complaints except (as above) Critical Care Progress Note - Extremities/Vascular Does the Patient have a Reagan Catheter?: Yes Does the Patient need a Reagan Catheter?: Yes Catheter Insertion Criteria: Need for accurate measurement of output in critically ill patient - Prophylaxis GI Prophylaxis GI: Pepsid - Prophylaxis DVT Prophylaxis DVT: SCDs - Nutrition Nutrition: Nutrition Category Date Time Status NPO Diet [DIET] Diets 10/04/16 Breakfast Active
--- NOTE | 2016-10-05 10:13 | CP.PCM.PN ---
Subjective - Date & Time of Evaluation Date of Evaluation: 10/05/16 Time of Evaluation: 09:57 - Subjective Subjective: pt appears mildly clinically improved, continues to be confused, off baseline L femoral CVC placed yesterday by surgery pt was started on Dopamine by ICU team yesterday pt weaned off last night, pt holding pressures at about 115/60 WBC elevated to 21K from 11K ABX were changed to MERREM yesterday per ID 118/64 HR 90 RR 23 100% ON Venti Mask Renal function worsening 32/1.1 from 19/0.6, pt changed to LR from NS @ 250 urine output appx 750 overnight, continues to be light ned LFTs normalized, Bili also normal Objective - Vital Signs/Intake and Output Vital Signs (last 24 hours): Temp Pulse Resp BP Pulse Ox 97.9 F 106 H 20 115/65 96 10/05/16 08:05 10/05/16 09:04 10/05/16 08:05 10/05/16 09:04 10/05/16 08:05 GEN: WDWN, ALERT, COOPERATIVE, flushed HEENT: NCAT, PERRL, EOMI HEART: +S1+S2, tachy. normal rhythm. NO MRG LUNG: CTAB, NO WRR ABD: SOFT BSX4 NT ND NO HSM NO MASS EXT: WARM, WELL PERFUSED NEURO: AA0X3, STRENGTH AND SENSATION EQUAL AND BILATERAL L FEM CVC SKIN: WARM DRY PSYCH: NORMAL MOOD NORMAL AFFECT Intake and Output: 10/05/16 10/05/16 06:59 18:59 Intake Total 2016 150 Output Total 500 50 Balance 1517 100 - Medications Medications: Current Medications Famotidine (Pepcid) 20 mg IVP Q12 [facility] Last Admin: 10/05/16 08:24 Dose: 20 mg Hydromorphone HCl (Dilaudid) 1 mg IVP Q3 PRN PRN Reason: Pain, severe (8-10) Last Admin: 10/05/16 08:23 Dose: 1 mg Vancomycin HCl 1 gm/ Sodium (Chloride) 250 mls @ 166.667 mls/hr IVPB Q12 PATTI Last Admin: 10/05/16 08:25 Dose: 166.667 mls/hr Meropenem 1 gm/ Sodium (Chloride) 100 mls @ 100 mls/hr IVPB Q12 PATTI Last Admin: 10/05/16 08:24 Dose: 100 mls/hr Insulin Human Regular (Humulin R) 0 units SC ACHS PATTI PRN Reason: Protocol Last Admin: 10/05/16 06:37 Dose: Not Given Metoprolol Tartrate (Lopressor) 5 mg IVP Q6 [facility] Last Admin: 10/05/16 09:04 Dose: 5 mg - Labs Labs: 10/05/16 05:40 10/05/16 05:40 Assessment and Plan - Assessment and Plan (Free Text) Plan: 76 years old female with hx of DM, HTN, A Flutter, Pancreatitis comes with a 1 years old intermittent, abdominal pain which has worsened over the past 2 days. It is located below both breast ,the periumbilical region and both lower quadrant. not relieved with her home medications and increases with movement. She refers headache and vomiting. No diarrhea, dysuria urinary. 10/05/16 pt appears mildly clinically improved, continues to be confused, off baseline L femoral CVC placed yesterday by surgery for hypotension pt was started on Dopamine by ICU team yesterday afternoon pt weaned off last night, pt holding pressures at about 115/60 WBC elevated to 21K from 11K ABX were changed to MERREM yesterday per ID afebrile. 118/64 HR 90 RR 23 100% ON Venti Mask Renal function worsening 32/1.1 from 19/0.6, pt changed to LR from NS @ 250 urine output appx 750 overnight, continues to be light ned LFTs normalized, Bili also normal Acute Pancreatitis - Consult Dr Mariscal GI - NPO - IVF changed to LR today - Pain management - Follow Renal labs and CBC, electrolytes Acute Cholecystitis afebrile. - Consult Surgery Dr Reddy - Consult Dr Castano - Vancomycin - changed to Merrem yesterday - Zofran - LFTs normal, BILI normal HTN - IV Metoprolol for HR, however became hypotensive yesterday, has L fem CVC - Follow BP YASEMIN 2/2 dehydration - IV Normal Saline in ER - Follow Renal labs - worsening function at 32/1.1 - urine light ned, will continue to monitor fluids changed to LR Hyperglycemia -Follow HbA1c Stress ulcer prophylaxis with Pepcid DVT prophylaxis with SCD Code status Full
--- NOTE | 2016-10-05 12:14 | OP ---
PROCEDURE DATE: 10/04/2016 PREOPERATIVE DIAGNOSES: 1. Cholelithiasis and possible cholecystitis. 2. Resolving sepsis. 3. Septic shock. 4. Gallstone pancreatitis. POSTOPERATIVE DIAGNOSES: 1. Cholelithiasis and possible cholecystitis. 2. Resolving sepsis. 3. Septic shock. 4. Gallstone pancreatitis. PROCEDURE: Right femoral triple-lumen catheter placement. SURGEON: Kyle Reddy MD FRONT DESK PERSON: Kimberly, PGY-1 Resident. TYPE OF ANESTHESIA: Local. ESTIMATED BLOOD LOSS: Around 10 mL. DRAIN: None. PATHOLOGY: None. COMPLICATIONS: None. INTRAOPERATIVE FINDINGS: The right femoral vein was visualized on ultrasound and it was patent. On intraoperative tests, this is a 76-year-old female who was diagnosed with a gallstone pancreatitis and the patient had resolving sepsis and the patient also had very mild hypotension with blood pressure of 80s and 90s and the patient needed central venous catheter. After multiple attempts for the neckline by the hospitalist, the patient was consented and the right groin was prepped and draped. Under ultrasound guided, right femoral vein was visualized and local anesthesia was injected. The right femoral vein was cannulated. Guidewire was placed and triple-lumen catheter was guided over the guidewire and secured to the skin and flushed with normal saline and after that dry, sterile dressing was applied. The patient tolerated the procedure well. Counts of the instrument was correct. There were no apparent complication. Kyle Reddy MD
--- NOTE | 2016-10-05 12:28 | CP.PCM.PN ---
Subjective - Date & Time of Evaluation Date of Evaluation: 10/05/16 Time of Evaluation: 13:00 - Subjective Subjective: ID Note- Pt. seen and examined today in ICU. Pt. more awake today , however, is confused and agiatted at times. oriented to time and date but not place and as per nurse she waxes and wanes with her confusion denies any ROBLES, denies any fever states still has pain in her abdomen region Objective - Vital Signs/Intake and Output Vital Signs (last 24 hours): Temp Pulse Resp BP Pulse Ox 99.9 F H 93 H 21 123/56 L 97 10/05/16 12:00 10/05/16 12:00 10/05/16 12:00 10/05/16 12:00 10/05/16 12:00 Intake and Output: 10/05/16 10/05/16 06:59 18:59 Intake Total 2016 1100 Output Total 500 225 Balance 1517 875 - Medications Medications: Current Medications Famotidine (Pepcid) 20 mg IVP Q12 [facility] Last Admin: 10/05/16 08:24 Dose: 20 mg Hydromorphone HCl (Dilaudid) 1 mg IVP Q3 PRN PRN Reason: Pain, severe (8-10) Last Admin: 10/05/16 11:29 Dose: 1 mg Vancomycin HCl 1 gm/ Sodium (Chloride) 250 mls @ 166.667 mls/hr IVPB Q12 [facility] Last Admin: 10/05/16 08:25 Dose: 166.667 mls/hr Meropenem 1 gm/ Sodium (Chloride) 100 mls @ 100 mls/hr IVPB Q12 [facility] Last Admin: 10/05/16 08:24 Dose: 100 mls/hr Insulin Human Regular (Humulin R) 0 units SC ACHS [facility] PRN Reason: Protocol Last Admin: 10/05/16 11:16 Dose: Not Given Metoprolol Tartrate (Lopressor) 5 mg IVP Q6 [facility] Last Admin: 10/05/16 09:04 Dose: 5 mg - Labs Labs: - Constitutional Appears: No Acute Distress, Confused - Head Exam Head Exam: ATRAUMATIC - Eye Exam Eye Exam: EOMI - Neck Exam Neck Exam: Full ROM - Respiratory Exam Respiratory Exam: NORMAL BREATHING PATTERN Additional comments: good breath sounds b/l - Cardiovascular Exam Cardiovascular Exam: RRR, +S1, +S2 - GI/Abdominal Exam GI & Abdominal Exam: Soft, Normal Bowel Sounds Additional comments: + mild tenderness to palpation in RUQ no guarding no rebound - Extremities Exam Extremities Exam: Normal Inspection - Neurological Exam Neurological Exam: Awake - Additional Findings Additional findings: Laboratory Results - last 72 hr 10/03/16 10/03/16 10/03/16 21:53 21:53 22:47 WBC 21.0 H D RBC 5.57 H Hgb 16.5 H Hct 50.9 H MCV 91.3 MCH 29.5 MCHC 32.3 L RDW 13.4 Plt Count 322 D MPV 8.7 Neut % (Auto) 89.5 H Lymph % (Auto) 5.9 L [place] % (Auto) 4.4 Eos % (Auto) 0.0 Baso % (Auto) 0.2 Neut # 18.8 H Lymph # 1.2 Isabella # 0.9 H Eos # 0.0 Baso # 0.0 Neutrophils % (Manual) 87 H Band Neutrophils % 1 Lymphocytes % (Manual) 7 L Reactive Lymphs % Monocytes % (Manual) 5 Platelet Estimate Normal pCO2 pO2 15 L HCO3 ABG pH ABG Total CO2 ABG O2 Saturation ABG O2 Content ABG Base Excess ABG Hemoglobin ABG Carboxyhemoglobin POC ABG HHb (Measured) ABG Methemoglobin ABG O2 Capacity Mahesh Test VBG pH 7.34 VBG pCO2 55 VBG HCO3 24.8 VBG Total CO2 31.4 H VBG O2 Sat (Calc) 26.2 L VBG Base Excess 2.6 H VBG Potassium 6.5 H* A-a O2 Difference Hgb O2 Saturation Glucose 203 H Lactate 4.5 H* FiO2 21.0 Blood Gas Comments Lactate 4.5 Crit Value Called To mau Elam Crit Value Called By 203 Crit Value Read Back Y Blood Gas Notified Time 2253 Sodium 135 133.0 Potassium 6.5 H* D Chloride 94 L 95.0 L Carbon Dioxide 24 Anion Gap 24 H BUN 19 H Creatinine 0.7 Est GFR ( Amer) > 60 Est GFR (Non-Af Amer) > 60 POC Glucose (mg/dL) Random Glucose 202 H Lactic Acid Calcium 9.3 Total Bilirubin 2.3 H AST 77 H D ALT < 6 L D Alkaline Phosphatase 149 H D Troponin I 0.0240 Total Protein 10.2 H Albumin 5.2 H D Globulin 5.0 H Albumin/Globulin Ratio 1.0 Triglycerides Cholesterol LDL Cholesterol Direct HDL Cholesterol Lipase 9473 H Venous Blood Potassium 6.5 H* Urine Color Urine Clarity Urine pH Ur Specific [place] Urine Protein Urine Glucose (UA) Urine Ketones Urine Blood Urine Nitrate Urine Bilirubin Urine Urobilinogen Ur Leukocyte Esterase Urine RBC (Auto) Urine Microscopic WBC Ur Squamous Epith Cells Urine Bacteria Granular Casts (Auto) 10/03/16 10/04/16 10/04/16 22:59 02:06 05:46 WBC RBC Hgb Hct MCV MCH MCHC RDW Plt Count MPV Neut % (Auto) Lymph % (Auto) [place] % (Auto) Eos % (Auto) Baso % (Auto) Neut # Lymph # [place] # Eos # Baso # Neutrophils % (Manual) Band Neutrophils % Lymphocytes % (Manual) Reactive Lymphs % Monocytes % (Manual) Platelet Estimate pCO2 pO2 HCO3 ABG pH ABG Total CO2 ABG O2 Saturation ABG O2 Content ABG Base Excess ABG Hemoglobin ABG Carboxyhemoglobin POC ABG HHb (Measured) ABG Methemoglobin ABG O2 Capacity Mahesh Test VBG pH VBG pCO2 VBG HCO3 VBG Total CO2 VBG O2 Sat (Calc) VBG Base Excess VBG Potassium A-a O2 Difference Hgb O2 Saturation Glucose Lactate FiO2 Blood Gas Comments Crit Value Called To Crit Value Called By Crit Value Read Back Blood Gas Notified Time Sodium 134 Potassium 4.0 Chloride 97 L Carbon Dioxide 23 Anion Gap 18 BUN 19 H Creatinine 0.6 L Est GFR ( Amer) > 60 Est GFR (Non-Af Amer) > 60 POC Glucose (mg/dL) 131 H Random Glucose 143 H Lactic Acid Calcium 8.7 Total Bilirubin 0.9 AST 41 H D ALT 31 Alkaline Phosphatase 120 Troponin I Total Protein 8.1 Albumin 4.2 Globulin 3.8 Albumin/Globulin Ratio 1.1 Triglycerides Cholesterol LDL Cholesterol Direct HDL Cholesterol Lipase 7985 H Venous Blood Potassium Urine Color Yellow Urine Clarity Slighty-cloudy Urine pH 7.0 Ur Specific [place] 1.023 Urine Protein >=500 Urine Glucose (UA) 150 Urine Ketones Trace Urine Blood Small Urine Nitrate Negative Urine Bilirubin Negative Urine Urobilinogen 0.2-1.0 Ur Leukocyte Esterase Neg Urine RBC (Auto) 4 H Urine Microscopic WBC 2 Ur Squamous Epith Cells 3 Urine Bacteria Mod H Granular Casts (Auto) 1 08/19/17 08/19/17 08/19/17 06:00 06:00 06:30 WBC 11.8 H RBC 5.21 H Hgb 15.3 Hct 47.1 H MCV 90.4 MCH 29.4 MCHC 32.5 L RDW 13.5 Plt Count 238 MPV Neut % (Auto) Lymph % (Auto) [place] % (Auto) Eos % (Auto) Baso % (Auto) Neut # Lymph # [place] # Eos # Baso # Neutrophils % (Manual) Band Neutrophils % Lymphocytes % (Manual) Reactive Lymphs % Monocytes % (Manual) Platelet Estimate pCO2 pO2 HCO3 ABG pH ABG Total CO2 ABG O2 Saturation ABG O2 Content ABG Base Excess ABG Hemoglobin ABG Carboxyhemoglobin POC ABG HHb (Measured) ABG Methemoglobin ABG O2 Capacity Mahesh Test VBG pH VBG pCO2 VBG HCO3 VBG Total CO2 VBG O2 Sat (Calc) VBG Base Excess VBG Potassium A-a O2 Difference Hgb O2 Saturation Glucose Lactate FiO2 Blood Gas Comments Crit Value Called To Crit Value Called By Crit Value Read Back Blood Gas Notified Time Sodium Potassium Chloride Carbon Dioxide Anion Gap BUN Creatinine Est GFR ( Amer) Est GFR (Non-Af Amer) POC Glucose (mg/dL) Random Glucose Lactic Acid 1.9 Calcium Total Bilirubin AST ALT Alkaline Phosphatase Troponin I Total Protein Albumin Globulin Albumin/Globulin Ratio Triglycerides 72 Cholesterol 203 H LDL Cholesterol Direct 140 H HDL Cholesterol 41 Lipase 5357 H Venous Blood Potassium Urine Color Urine Clarity Urine pH Ur Specific [place] Urine Protein Urine Glucose (UA) Urine Ketones Urine Blood Urine Nitrate Urine Bilirubin Urine Urobilinogen Ur Leukocyte Esterase Urine RBC (Auto) Urine Microscopic WBC Ur Squamous Epith Cells Urine Bacteria Granular Casts (Auto) 10/04/16 10/04/16 10/04/16 10:00 11:08 16:42 WBC RBC Hgb Hct MCV MCH MCHC RDW Plt Count MPV Neut % (Auto) Lymph % (Auto) [place] % (Auto) Eos % (Auto) Baso % (Auto) Neut # Lymph # [place] # Eos # Baso # Neutrophils % (Manual) Band Neutrophils % Lymphocytes % (Manual) Reactive Lymphs % Monocytes % (Manual) Platelet Estimate pCO2 33 L pO2 69 L HCO3 23.1 ABG pH 7.42 ABG Total CO2 22.4 ABG O2 Saturation 96.4 ABG O2 Content 20.2 ABG Base Excess -2.2 L ABG Hemoglobin 15.5 ABG Carboxyhemoglobin 2.1 H POC ABG HHb (Measured) 3.5 ABG Methemoglobin 1.7 ABG O2 Capacity 21.0 Mahesh Test Yes VBG pH VBG pCO2 VBG HCO3 VBG Total CO2 VBG O2 Sat (Calc) VBG Base Excess VBG Potassium A-a O2 Difference 89.0 Hgb O2 Saturation 92.8 L Glucose Lactate FiO2 28.0 Blood Gas Comments 2l/m'nc rr Crit Value Called To Crit Value Called By 15 Crit Value Read Back N Blood Gas Notified Time Sodium Potassium Chloride Carbon Dioxide Anion Gap BUN Creatinine Est GFR ( Amer) Est GFR (Non-Af Amer) POC Glucose (mg/dL) 133 H 120 H Random Glucose Lactic Acid Calcium Total Bilirubin AST ALT Alkaline Phosphatase Troponin I Total Protein Albumin Globulin Albumin/Globulin Ratio Triglycerides Cholesterol LDL Cholesterol Direct HDL Cholesterol Lipase Venous Blood Potassium Urine Color Urine Clarity Urine pH Ur Specific [place] Urine Protein Urine Glucose (UA) Urine Ketones Urine Blood Urine Nitrate Urine Bilirubin Urine Urobilinogen Ur Leukocyte Esterase Urine RBC (Auto) Urine Microscopic WBC Ur Squamous Epith Cells Urine Bacteria Granular Casts (Auto) 10/04/16 10/05/16 10/05/16 19:58 04:29 05:40 WBC 21.4 H D RBC 4.42 Hgb 13.1 D Hct 40.4 MCV 91.4 MCH 29.6 MCHC 32.4 L RDW 13.7 Plt Count 221 MPV 9.1 Neut % (Auto) 90.9 H Lymph % (Auto) 3.9 L [place] % (Auto) 5.1 Eos % (Auto) 0.0 Baso % (Auto) 0.1 Neut # 19.4 H Lymph # 0.8 L [place] # 1.1 H Eos # 0.0 Baso # 0.0 Neutrophils % (Manual) 80 H Band Neutrophils % 5 H Lymphocytes % (Manual) 7 L Reactive Lymphs % 1 H Monocytes % (Manual) 7 Platelet Estimate Normal pCO2 pO2 HCO3 ABG pH ABG Total CO2 ABG O2 Saturation ABG O2 Content ABG Base Excess ABG Hemoglobin ABG Carboxyhemoglobin POC ABG HHb (Measured) ABG Methemoglobin ABG O2 Capacity Mahesh Test VBG pH VBG pCO2 VBG HCO3 VBG Total CO2 VBG O2 Sat (Calc) VBG Base Excess VBG Potassium A-a O2 Difference Hgb O2 Saturation Glucose Lactate FiO2 Blood Gas Comments Crit Value Called To Crit Value Called By Crit Value Read Back Blood Gas Notified Time Sodium Potassium Chloride Carbon Dioxide Anion Gap BUN Creatinine Est GFR ( Amer) Est GFR (Non-Af Amer) POC Glucose (mg/dL) 113 H 99 Random Glucose Lactic Acid Calcium Total Bilirubin AST ALT Alkaline Phosphatase Troponin I Total Protein Albumin Globulin Albumin/Globulin Ratio Triglycerides Cholesterol LDL Cholesterol Direct HDL Cholesterol Lipase Venous Blood Potassium Urine Color Urine Clarity Urine pH Ur Specific [place] Urine Protein Urine Glucose (UA) Urine Ketones Urine Blood Urine Nitrate Urine Bilirubin Urine Urobilinogen Ur Leukocyte Esterase Urine RBC (Auto) Urine Microscopic WBC Ur Squamous Epith Cells Urine Bacteria Granular Casts (Auto) 10/05/16 10/05/16 10/05/16 05:40 11:15 14:49 WBC RBC Hgb Hct MCV MCH MCHC RDW Plt Count MPV Neut % (Auto) Lymph % (Auto) [place]abella % (Auto) Eos % (Auto) Baso % (Auto) Neut # Lymph # [place]abella # Eos # Baso # Neutrophils % (Manual) Band Neutrophils % Lymphocytes % (Manual) Reactive Lymphs % Monocytes % (Manual) Platelet Estimate pCO2 35 pO2 100 HCO3 21.9 ABG pH 7.38 ABG Total CO2 21.8 L ABG O2 Saturation 98.3 H ABG O2 Content 17.6 ABG Base Excess -3.8 L ABG Hemoglobin 13.1 ABG Carboxyhemoglobin 1.3 POC ABG HHb (Measured) 1.6 ABG Methemoglobin 1.9 ABG O2 Capacity 17.9 Mahesh Test Yes VBG pH VBG pCO2 VBG HCO3 VBG Total CO2 VBG O2 Sat (Calc) VBG Base Excess VBG Potassium A-a O2 Difference 6.0 Hgb O2 Saturation 95.2 Glucose Lactate FiO2 21.0 Blood Gas Comments Crit Value Called To Crit Value Called By Crit Value Read Back Blood Gas Notified Time Sodium 139 Potassium 3.6 Chloride 108 H Carbon Dioxide 20 L Anion Gap 15 BUN 32 H Creatinine 1.1 Est GFR ( Amer) 58 Est GFR (Non-Af Amer) 48 POC Glucose (mg/dL) 128 H Random Glucose 110 H Lactic Acid Calcium 7.6 L Total Bilirubin 0.8 AST 24 ALT 23 Alkaline Phosphatase 65 Troponin I Total Protein 6.0 L Albumin 2.9 L D Globulin 3.1 Albumin/Globulin Ratio 0.9 L Triglycerides Cholesterol LDL Cholesterol Direct HDL Cholesterol Lipase Venous Blood Potassium Urine Color Urine Clarity Urine pH Ur Specific [place] Urine Protein Urine Glucose (UA) Urine Ketones Urine Blood Urine Nitrate Urine Bilirubin Urine Urobilinogen Ur Leukocyte Esterase Urine RBC (Auto) Urine Microscopic WBC Ur Squamous Epith Cells Urine Bacteria Granular Casts (Auto) Microbiology 10/03/16 10:00 Blood-Venous S.aureus & Coag-Neg Staph PNA FISH - Final 10/03/16 10:00 Blood-Venous Blood Culture - Preliminary Gram Positive Cocci 10/03/16 10:00 Blood-Venous Gram Stain - Final 10/03/16 23:59 Urine Urine Culture - Final No Growth (<1,000 CFU/ML) 10/03/16 02:06 Blood-Venous Blood Culture - Preliminary NO GROWTH AFTER 24 HOURS Accession No. : [id number] Patient Name / ID : LAURO RODRIGUEZ / [id number] Exam Date : 10/04/2016 08:26:15 ( Approved ) Study Comment : Sex / Age : F / 76Y Creator : Giu Herbert MD Dictator : Gui Herbert MD Hide Tanner : Sock Mender : Gui Herbert MD Approver2 : Report Date : 10/04/2016 19:05:43 My Comment : HISTORY: Rule out cholecystitis COMPARISON: The study was read in conjunction with CT scan abdomen pelvis 10/04/2016 at 0032 hours. TECHNIQUE: Sonographic evaluation of the right upper quadrant of the abdomen. . Note that the examination is limited due to body habitus and position. FINDINGS: LIVER: The liver is enlarged measuring approximately 19.3 cm in CC dimension. Liver exhibits increased attenuation consistent with fatty infiltration however other infiltrative hepatocellular disease process not completely excluded. There appears to be a small amount of perihepatic ascites as well. GALLBLADDER: Gallbladder is physiologically distended. Intraluminal gallbladder calculi. Mild gallbladder wall thickening and or edema. No sonographic Potter sign documented by the technologist. COMMON BILE DUCT: Common bile duct measures 1.6 mm mm. No stones. No dilatation. PANCREAS: Not visualized RIGHT KIDNEY: Not visualized AORTA: No aneurysmal dilatation. IVC: Unremarkable. OTHER FINDINGS: None . IMPRESSION: Very limited study. Cholelithiasis with gallbladder wall thickening or edema. Rule out cholecystitis. Hepatomegaly with fatty hepatic infiltration. . There also appears to be small amount of perihepatic ascites Note these findings were discussed with hospitalist Dr. Ken at approximately 7 p.m. with written down and read back verification. Accession No. : [id number] Patient Name / ID : LAURO RODRIGUEZ / [id number] Exam Date : 10/04/2016 09:20:56 ( Approved ) Study Comment : Sex / Age : F / 76Y Creator : Gui Herbert MD Dictator : Gui Herbert MD Hide Tanner : Sock Mender : Gui Herbert MD Approver2 : Report Date : 10/04/2016 17:14:08 My Comment : PROCEDURE: CHEST RADIOGRAPH, 1 VIEW The study is limited due to patient rotation to the right side. HISTORY: desat COMPARISON: None available. FINDINGS: LUNGS: Poor inspiration with low lung volumes, crowded bronchovascular markings and mild bibasilar atelectasis left greater than right. Questionable small left- sided effusion. PLEURA: No pneumothorax or pleural fluid seen. CARDIOVASCULAR: Heart size is difficult to assess due to rotation and poor inspiration however heart appears enlarged. OSSEOUS STRUCTURES: Degenerative changes both shoulder girdles. Mild multilevel degenerative spondylosis of the thoracic spine. VISUALIZED UPPER ABDOMEN: Normal. OTHER FINDINGS: None. IMPRESSION: Poor inspiration with low lung volumes, crowded bronchovascular markings and mild bibasilar atelectasis left greater than right. Questionable small left- sided effusion. . Assessment and Plan (1) Cholecystitis Status: Acute (2) Pancreatitis Status: Acute (3) Leukocytosis Status: Acute - Assessment and Plan (Free Text) Assessment: A/P- 76 year old female with multiple medical conditions including DM II, HTN, pancreatitis admitted with worsening abdominal pain and nausea found to have cholelithiasis with cholecystitis and GS pancreatitis with and elevated wbc as well as elevated lipase and LFts and elavted lactate. afebrile leukocytosis increasing despite antibiotics. more confused today. CT abd report noted. abd US- cholelithiasis with ? cholecystitis as per report. CXR- ? left lower lung effusion as per report. blood cx- neg x 1 one blood cx was just reported now as - coag neg staph plan- advise to continue with broad spectrum abx coverage empirically for now to cover for gram neg and anerobes . hence continue with IV meropenem day #2. continue with IV vanco empirically for coag neg staph bacteremia that was just reported by micro. keep trough <15. monitor wbc and LFTs and lipase. may need brain CT if confusion does not resolve. as per hospitalist no surgical intervention at this time and pt. for IR cholecystotomy . check 2 more blood cx. check echo rule out any vegetations. ICU time 45 minutes.
[2016-10-05 14:52] LABS: ABG ALLEN TEST YES; HHB 1.6 % (0.0-5.0)
[2016-10-05 14:55] LABS: ARTERIAL BLOOD GAS HCO3 21.9 mmol/L (21-28); ARTERIAL BLOOD GAS O2 CAPACITY 17.9 mL/dL (16-24); ARTERIAL BLOOD GAS O2 CONTENT 17.6 ML/dL (15-23); ARTERIAL BLOOD GAS PH 7.38 (7.35-7.45); ARTERIAL BLOOD GAS PO2 100 mm/Hg (80-100); ARTERIAL BLOOD HGB O2 SAT 95.2 % (95.0-98.0); CARBOXYHEMOGLOBIN 1.3 % (0.5-1.5); METHEMOGLOBIN 1.9 % (0.0-3.0)
[2016-10-05] MEDS: Lactated Ringer's 1,000 ML IV SCH (15:15)
--- NOTE | 2016-10-05 15:59 | RAD ---
PROCEDURE: CHEST RADIOGRAPH, 1 VIEW HISTORY: hypoxia COMPARISON: Comparison chest 10/04/2016 at 0921 hours. FINDINGS: LUNGS: Poor inspiration with low lung volumes, crowded bronchovascular markings and mild bibasilar atelectasis. There may also be small bilateral effusions PLEURA: As above. No apparent pneumothorax CARDIOVASCULAR: Heart appears enlarged OSSEOUS STRUCTURES: No significant abnormalities. VISUALIZED UPPER ABDOMEN: Normal. OTHER FINDINGS: None. IMPRESSION: Poor inspiration with low lung volumes, crowded bronchovascular markings and mild bibasilar atelectasis. There may also be small bilateral effusions
--- NOTE | 2016-10-05 16:04 | CP.PCM.CON ---
History of Present Illness - History of Present Illness History of Present Illness: 76 yo female with h/o DM, htn, and A flutter admitted with abdominal pain x 2 daysPain present in epigastrum and right side of abdomen Review of Systems - Constitutional Constitutional: absent: Chills - EENT Nose/Mouth/Throat: absent: Epistaxis - Cardiovascular Cardiovascular: absent: Chest Pain - Respiratory Respiratory: absent: Dyspnea - Gastrointestinal Gastrointestinal: As Per HPI - Genitourinary Genitourinary: absent: Change in Urinary Stream Past Patient History - Infectious Disease Hx of Infectious Diseases: None - Tetanus Immunizations Tetanus Immunization: Unknown - Past Medical History & Family History Past Medical History?: Yes - Past Social History Alcohol: None Drugs: Denies - CARDIAC Hx Cardia Arrhythmia: Yes (Flutter) Hx Hypertension: Yes Hx Peripheral Edema: Yes (+2) - PULMONARY Hx Bronchitis: Yes Hx Chronic Obstructive Pulmonary Disease (COPD): Yes Hx Pneumonia: Yes (5 YRS AGO) - HEENT Hx Cataracts: Yes - RENAL Hx Chronic Kidney Disease: No - ENDOCRINE/METABOLIC Hx Diabetes Mellitus Type 2: Yes - HEMATOLOGICAL/ONCOLOGICAL Hx Anemia: Yes Hx Human Immunodeficiency Virus (HIV): No - INTEGUMENTARY Hx Dermatological Problems: No - MUSCULOSKELETAL/RHEUMATOLOGICAL Hx Arthritis: Yes Hx Fractures: Yes Hx Osteoporosis: Yes - GASTROINTESTINAL Hx Pancreatitis: Yes - GENITOURINARY/GYNECOLOGICAL Hx Sexually Transmitted Disorders: No - PSYCHIATRIC Hx Anxiety: Yes Hx Depression: Yes - SURGICAL HISTORY Hx Carotid Endarterectomy: Yes - ANESTHESIA Hx Anesthesia: Yes Hx Anesthesia Reactions: No Hx Malignant Hyperthermia: No Meds Allergies/Adverse Reactions: Allergies Allergy/AdvReac Type Severity Reaction Status Date / Time Penicillins Allergy RASH Verified 08/02/15 17:48 - Medications Medications: Current Medications Famotidine (Pepcid) 20 mg IVP Q12 [facility] Last Admin: 10/05/16 08:24 Dose: 20 mg Hydromorphone HCl (Dilaudid) 1 mg IVP Q3 PRN PRN Reason: Pain, severe (8-10) Last Admin: 10/05/16 11:29 Dose: 1 mg Vancomycin HCl 1 gm/ Sodium (Chloride) 250 mls @ 166.667 mls/hr IVPB Q12 [facility] Last Admin: 10/05/16 08:25 Dose: 166.667 mls/hr Meropenem 1 gm/ Sodium (Chloride) 100 mls @ 100 mls/hr IVPB Q12 [facility] Last Admin: 10/05/16 08:24 Dose: 100 mls/hr Lactated Ringer's (Lactated Ringer's) 1,000 mls @ 175 mls/hr IV .[id number] [facility] Last Admin: 10/05/16 15:15 Dose: 175 mls/hr Insulin Human Regular (Humulin R) 0 units SC ACHS [facility] PRN Reason: Protocol Last Admin: 10/05/16 11:16 Dose: Not Given Metoprolol Tartrate (Lopressor) 5 mg IVP Q6 [facility] Last Admin: 10/05/16 09:04 Dose: 5 mg Physical Exam - Constitutional Appears: No Acute Distress - Head Exam Head Exam: ATRAUMATIC - Eye Exam Eye Exam: Normal appearance Pupil Exam: PERRL - ENT Exam ENT Exam: Mucous Membranes Moist - Neck Exam Neck exam: Positive for: Normal Inspection - Respiratory Exam Respiratory Exam: Clear to Auscultation Bilateral - Cardiovascular Exam Cardiovascular Exam: REGULAR RHYTHM, +S1, +S2 - GI/Abdominal Exam GI & Abdominal Exam: Normal Bowel Sounds, Soft, Tenderness Additional comments: epigastrum and RUQ Results - Vital Signs Recent Vital Signs: Last Vital Signs Temp 99.9 F H 10/05/16 12:00 Pulse 93 H 10/05/16 14:00 Resp 20 10/05/16 14:00 BP 149/76 10/05/16 14:00 Pulse Ox 97 10/05/16 14:00 - Labs Result Diagrams: 10/05/16 05:40 10/05/16 05:40 Labs: Laboratory Results - last 24 hr 10/04/16 10/04/16 10/05/16 16:42 19:58 04:29 WBC RBC Hgb Hct MCV MCH MCHC RDW Plt Count MPV Neut % (Auto) Lymph % (Auto) [place] % (Auto) Eos % (Auto) Baso % (Auto) Neut # Lymph # [place] # Eos # Baso # Neutrophils % (Manual) Band Neutrophils % Lymphocytes % (Manual) Reactive Lymphs % Monocytes % (Manual) Platelet Estimate pCO2 pO2 HCO3 ABG pH ABG Total CO2 ABG O2 Saturation ABG O2 Content ABG Base Excess ABG Hemoglobin ABG Carboxyhemoglobin POC ABG HHb (Measured) ABG Methemoglobin ABG O2 Capacity Mahesh Test A-a O2 Difference Hgb O2 Saturation FiO2 Sodium Potassium Chloride Carbon Dioxide Anion Gap BUN Creatinine Est GFR ( Amer) Est GFR (Non-Af Amer) POC Glucose (mg/dL) 120 H 113 H 99 Random Glucose Calcium Total Bilirubin AST ALT Alkaline Phosphatase Total Protein Albumin Globulin Albumin/Globulin Ratio 10/05/16 10/05/16 10/05/16 05:40 05:40 11:15 WBC 21.4 H D RBC 4.42 Hgb 13.1 D Hct 40.4 MCV 91.4 MCH 29.6 MCHC 32.4 L RDW 13.7 Plt Count 221 MPV 9.1 Neut % (Auto) 90.9 H Lymph % (Auto) 3.9 L [place] % (Auto) 5.1 Eos % (Auto) 0.0 Baso % (Auto) 0.1 Neut # 19.4 H Lymph # 0.8 L [place] # 1.1 H Eos # 0.0 Baso # 0.0 Neutrophils % (Manual) 80 H Band Neutrophils % 5 H Lymphocytes % (Manual) 7 L Reactive Lymphs % 1 H Monocytes % (Manual) 7 Platelet Estimate Normal pCO2 pO2 HCO3 ABG pH ABG Total CO2 ABG O2 Saturation ABG O2 Content ABG Base Excess ABG Hemoglobin ABG Carboxyhemoglobin POC ABG HHb (Measured) ABG Methemoglobin ABG O2 Capacity Mahesh Test A-a O2 Difference Hgb O2 Saturation FiO2 Sodium 139 Potassium 3.6 Chloride 108 H Carbon Dioxide 20 L Anion Gap 15 BUN 32 H Creatinine 1.1 Est GFR ( Amer) 58 Est GFR (Non-Af Amer) 48 POC Glucose (mg/dL) 128 H Random Glucose 110 H Calcium 7.6 L Total Bilirubin 0.8 AST 24 ALT 23 Alkaline Phosphatase 65 Total Protein 6.0 L Albumin 2.9 L D Globulin 3.1 Albumin/Globulin Ratio 0.9 L 10/05/16 14:49 WBC RBC Hgb Hct MCV MCH MCHC RDW Plt Count MPV Neut % (Auto) Lymph % (Auto) [place] % (Auto) Eos % (Auto) Baso % (Auto) Neut # Lymph # [place] # Eos # Baso # Neutrophils % (Manual) Band Neutrophils % Lymphocytes % (Manual) Reactive Lymphs % Monocytes % (Manual) Platelet Estimate pCO2 35 pO2 100 HCO3 21.9 ABG pH 7.38 ABG Total CO2 21.8 L ABG O2 Saturation 98.3 H ABG O2 Content 17.6 ABG Base Excess -3.8 L ABG Hemoglobin 13.1 ABG Carboxyhemoglobin 1.3 POC ABG HHb (Measured) 1.6 ABG Methemoglobin 1.9 ABG O2 Capacity 17.9 Mahesh Test Yes A-a O2 Difference 6.0 Hgb O2 Saturation 95.2 FiO2 21.0 Sodium Potassium Chloride Carbon Dioxide Anion Gap BUN Creatinine Est GFR ( Amer) Est GFR (Non-Af Amer) POC Glucose (mg/dL) Random Glucose Calcium Total Bilirubin AST ALT Alkaline Phosphatase Total Protein Albumin Globulin Albumin/Globulin Ratio Assessment & Plan (1) Pancreatitis Assessment and Plan: Gallstone pancreatitis. Continue IV antibiotics and IV fluids. No evidence of biliary obstruction based on biochemistry results. Status: Acute
[2016-10-05] MEDS ORDERED: Digoxin 500 mcg/2ml (0.5 mg/2ml) Inj IVP ONE (16:37)
[2016-10-05] MEDS ORDERED: Digoxin 500 mcg/2ml (0.5 mg/2ml) Inj ONE (16:41)
[2016-10-05 16:44] VITALS: PULSE 171
[2016-10-05] MEDS ORDERED: Metoprolol 1 mg/ml Inj IVP ONE (21:16)
[2016-10-06] MEDS: Lactated Ringer's 1,000 ML IV SCH ×4 (00:09→16:38)
[2016-10-06] MEDS ORDERED: Labetalol 5 mg/ml Inj 20ML IVP STA ×3 (00:29→13:18)
[2016-10-06 05:59] LABS: BASO % 0.1 % (0.0-2.0); EOS % 0.1 % (0.0-4.0); HEMATOCRIT 36.9 % (34.0-47.0); LYMPH # 0.6 K/uL (1.0-4.3); LYMPH % 3.8 % (20.0-40.0); MEAN CELL VOLUME 90.6 fl (81.0-99.0); MEAN CORPUSCULAR HEMOGLOBIN 29.6 pg (27.0-31.0); MEAN CORPUSCULAR HGB CONC 32.7 g/dL (33.0-37.0); MONO # 0.8 K/uL (0.0-0.8); MONO % 5.1 % (0.0-10.0); NEUT # 15.1 K/uL (1.8-7.0); NEUT % 90.9 % (50.0-75.0); PLATELET COUNT 206 K/uL (130-400); RED CELL DISTRIBUTION WIDTH 13.9 % (11.5-14.5); WHITE BLOOD COUNT 16.6 K/uL (4.8-10.8)
[2016-10-06 06:12] LABS: PARTIAL THROMBOPLASTIN TIME 31.3 Seconds (25.6-37.1)
[2016-10-06 06:24] LABS: ALB/GLOB RATIO 0.9 (1.0-2.1); ALKALINE PHOSPHATASE 81 U/L (38-126); ALT/SGPT 26 U/L (9-52); AST/SGOT 27 U/L (14-36); BILIRUBIN,TOTAL 0.7 mg/dl (0.2-1.3); BLOOD UREA NITROGEN 29 mg/dl (7-17); CALCIUM 8.2 mg/dL (8.4-10.2); CARBON DIOXIDE 23 mmol/L (22-30); CHLORIDE 107 mmol/L (98-107); GFR AFRICAN-AMERICAN > 60; GLUCOSE,RANDOM 98 mg/dL (65-105); LIPASE 275 U/L (23-300); POTASSIUM 3.2 MMOL/L (3.6-5.0); SODIUM 140 mmol/l (132-148); TOTAL PROTEIN 6.2 G/DL (6.3-8.2)
[2016-10-06] MEDS: Insulin Regular 100 units/ml SC SCH ×4 (06:44→22:58)
--- NOTE | 2016-10-06 08:41 | CP.PCM.PN ---
Subjective - Date & Time of Evaluation Date of Evaluation: 10/06/16 Time of Evaluation: 08:00 - Subjective Subjective: Patient was seen and evaluated bedside. Lying in bed in NAD with flat affect. Denies any pain at present. Bp elevated 173/78 HR 78 afebrile on Venti mask with O2Sat 98 % No acute issues overnight. NPo staus Objective - Vital Signs/Intake and Output Vital Signs (last 24 hours): Temp Pulse Resp BP Pulse Ox 98 F 78 25 H 173/78 H 97 10/06/16 04:00 10/06/16 07:00 10/06/16 07:00 10/06/16 07:00 10/06/16 07:00 Intake and Output: 10/06/16 10/06/16 06:59 18:59 Intake Total 2025 Output Total 650 Balance 1375 - Medications Medications: Current Medications Famotidine (Pepcid) 20 mg IVP Q12 [facility] Last Admin: 10/05/16 22:37 Dose: 20 mg Hydromorphone HCl (Dilaudid) 1 mg IVP Q3 PRN PRN Reason: Pain, severe (8-10) Last Admin: 10/06/16 00:54 Dose: 1 mg Vancomycin HCl 1 gm/ Sodium (Chloride) 250 mls @ 166.667 mls/hr IVPB Q12 [facility] Last Admin: 10/05/16 20:29 Dose: 166.667 mls/hr Meropenem 1 gm/ Sodium (Chloride) 100 mls @ 100 mls/hr IVPB Q12 [facility] Last Admin: 10/05/16 20:28 Dose: 100 mls/hr Lactated Ringer's (Lactated Ringer's) 1,000 mls @ 175 mls/hr IV .Q5H43M [facility] Last Admin: 10/06/16 06:24 Dose: 175 mls/hr Potassium Chloride (Potassium Cl 10meq/50ml Sterile Water) 50 mls @ 50 mls/hr IVPB Q1 [facility] Stop: 10/06/16 10:59 Insulin Human Regular (Humulin R) 0 units SC ACHS [facility] PRN Reason: Protocol Last Admin: 10/06/16 06:44 Dose: Not Given Metoprolol Tartrate (Lopressor) 5 mg IVP Q6 [facility] Last Admin: 10/05/16 09:04 Dose: 5 mg - Labs Labs: 10/06/16 04:20 10/06/16 04:20 PT 16.0 Seconds (9.8-13.1) H 10/06/16 04:20 INR 1.5 (0.9-1.2) H 10/06/16 04:20 APTT 31.3 Seconds (25.6-37.1) 10/06/16 04:20 - Constitutional Appears: Non-toxic, No Acute Distress - Head Exam Head Exam: ATRAUMATIC, NORMAL INSPECTION, NORMOCEPHALIC - Eye Exam Eye Exam: EOMI, PERRL Pupil Exam: NORMAL ACCOMODATION - ENT Exam ENT Exam: Mucous Membranes Dry, Normal Exam - Neck Exam Neck Exam: Full ROM, Normal Inspection - Respiratory Exam Respiratory Exam: Decreased Breath Sounds (bibasilar ), Clear to Ausculation Bilateral. absent: Rhonchi, Wheezes - Cardiovascular Exam Cardiovascular Exam: REGULAR RHYTHM, RRR, +S1, +S2. absent: JVD - GI/Abdominal Exam GI & Abdominal Exam: Soft, Tenderness (with palpation ), Normal Bowel Sounds. absent: Distended, Guarding, Mass, Rebound - Rectal Exam Rectal Exam: Deferred - Extremities Exam Extremities Exam: Full ROM, Normal Capillary Refill, Normal Inspection. absent : Calf Tenderness, Pedal Edema - Neurological Exam Neurological Exam: Alert, Awake, CN II-XII Intact, Oriented x3 - Psychiatric Exam Psychiatric exam: Depressed, Flat Affect - Skin Skin Exam: Dry, Intact, Normal Color, Warm Assessment and Plan - Assessment and Plan (Free Text) Assessment: 76 years old female with hx of DM, HTN, A Flutter, Pancreatitis came in with a 1 years old intermittent, abdominal pain which has worsened over the past 2 days. It is located below both breast ,the periumbilical region and both lower quadrant. not relieved with her home medications and increases with movement. She refers headache and vomiting. No diarrhea, dysuria urinary.CT abdomen showed cholelithiasis possible cholecystitis and pancreatitis. Blood test revealed elevated LFT-s , total bilirubin , lipase , WBC 21 k , lactic acid 4.5 initially. She was admitted in ICU with acute gallstone pancreatitis, cholecystitis , satrted on IVF Iv antibiotics, pain management. Surgery, ID and Gi consulted . Patient became hypotensive during admission requiring dopamine drip that is discontinued at present. 1.Severe Sepsis -- improving secondary to acute gallstone pancreatitis and cholecystitis off dopamine drip Blood cx positive for gram positive cocci Continue IVF, Meropenem and vancomycin IV No surgical intervention for now as per surgery LFT-s, bilirubin and lipase normalized transfer to Med/surg 2.Acute gallstone Pancreatitis improving lipase was elevated 9473 and now is normalized Continue IVF, pain management GI and surgery on consult 3. Acute Cholecystitis with cholelithiasis on IVF and IV antibiotics surgery on cosnult no surgical intervention IR for cholecystostomy 4. HTN uncontrolled Started Lopressor 12.5 mg po BID 5. YASEMIN 2/2 dehydration- improved continue IVF 6. Hyperglycemia Follow HbA1c not on any meds at home ? Continue accuchecks 7. Hypokalemia Replace with KCl runs repeat BMp in AM 8. Depression and anxiety on xanax ,trazodone, gabapentin and seroquel at home resume meds 9. Aflutter per history started lopressor 10. Dyslipidemia LDL 140 choles 203 will consider starting statin before discharge 11.Gait instability patient walks with walker at home PT marybel 12. Stress ulcer prophylaxis with Pepcid 13. DVT prophylaxis with SCD patient has IVC filter in place INR 1.5
[2016-10-06] MEDS: Meropenem 1 GM in Sodium Chloride 0.9% 100 ML IVPB SCH ×2 (09:22→22:04)
[2016-10-06] MEDS: Potassium CL 10 MEQ/50 ML 50 ML IVPB SCH ×2 (09:25→10:48)
--- NOTE | 2016-10-06 09:58 | CP.PCM.PN ---
<Jesus ManuelBethanie - Last Filed: 10/06/16 09:54> Subjective - Date & Time of Evaluation Date of Evaluation: 10/06/16 Time of Evaluation: 09:54 - Subjective Subjective: Surgery Pt s&e. NAEON. Pain controlled. Denies F/C/N/V/D/CP/SOB. Objective - Vital Signs/Intake and Output Vital Signs (last 24 hours): Temp Pulse Resp BP Pulse Ox 98.7 F 78 24 171/89 H 98 10/06/16 08:00 10/06/16 08:00 10/06/16 08:00 10/06/16 08:00 10/06/16 08:00 Intake and Output: 10/06/16 10/06/16 06:59 18:59 Intake Total 2025 Output Total 650 Balance 1375 - Medications Medications: Current Medications Docusate Sodium (Colace) 100 mg PO TID ON [facility] OF [facility] Last Admin: 10/06/16 09:21 Dose: Not Given Duloxetine HCl (Cymbalta) 60 mg PO HS ON [facility] OF [facility] Famotidine (Pepcid) 20 mg IVP Q12 [facility] OF [facility] Last Admin: 10/06/16 09:25 Dose: 20 mg Gabapentin (Neurontin) 600 mg PO TID ON [facility] OF [facility] Last Admin: 10/06/16 09:23 Dose: Not Given Hydromorphone HCl (Dilaudid) 1 mg IVP Q3 PRN PRN Reason: Pain, severe (8-10) Last Admin: 10/06/16 00:54 Dose: 1 mg Vancomycin HCl 1 gm/ Sodium (Chloride) 250 mls @ 166.667 mls/hr IVPB Q12 [facility] Last Admin: 10/05/16 20:29 Dose: 166.667 mls/hr Meropenem 1 gm/ Sodium (Chloride) 100 mls @ 100 mls/hr IVPB Q12 [facility] Last Admin: 10/06/16 09:22 Dose: 100 mls/hr Lactated Ringer's (Lactated Ringer's) 1,000 mls @ 175 mls/hr IV .Q5H43M [facility] OF [facility] Last Admin: 10/06/16 09:21 Dose: 175 mls/hr Potassium Chloride (Potassium Cl 10meq/50ml Sterile Water) 50 mls @ 50 mls/hr IVPB Q1 [facility] Stop: 10/06/16 10:59 Last Admin: 10/06/16 09:25 Dose: 50 mls/hr Insulin Human Regular (Humulin R) 0 units SC ACHS ON [facility] OF [facility] PRN Reason: Protocol Last Admin: 10/06/16 06:44 Dose: Not Given Metoprolol Tartrate (Lopressor) 5 mg IVP Q6 [facility] Last Admin: 10/05/16 09:04 Dose: 5 mg Metoprolol Tartrate (Lopressor) 12.5 mg PO Q12 [facility] Last Admin: 10/06/16 09:23 Dose: Not Given Sennosides (Senokot Tab) 8.6 mg PO BID ON [facility] OF [facility] Last Admin: 10/06/16 09:23 Dose: Not Given Trazodone HCl (Desyrel) 50 mg PO HS ON [facility] OF [facility] - Labs Labs: 10/06/16 04:20 10/06/16 04:20 PT 16.0 Seconds (9.8-13.1) H 10/06/16 04:20 INR 1.5 (0.9-1.2) H 10/06/16 04:20 APTT 31.3 Seconds (25.6-37.1) 10/06/16 04:20 - Constitutional Appears: No Acute Distress - Head Exam Head Exam: ATRAUMATIC, NORMAL INSPECTION, NORMOCEPHALIC - Eye Exam Eye Exam: EOMI, Normal appearance, PERRL Pupil Exam: NORMAL ACCOMODATION, PERRL - ENT Exam ENT Exam: Mucous Membranes Moist, Normal Exam - Neck Exam Neck Exam: Full ROM, Normal Inspection. absent: Lymphadenopathy - Respiratory Exam Respiratory Exam: Clear to Ausculation Bilateral, NORMAL BREATHING PATTERN - Cardiovascular Exam Cardiovascular Exam: REGULAR RHYTHM, +S1, +S2. absent: Murmur - GI/Abdominal Exam GI & Abdominal Exam: Soft, Tenderness, Normal Bowel Sounds. absent: Distended, Firm Additional comments: Epigastric TTP - Exam Exam: NORMAL INSPECTION - Extremities Exam Extremities Exam: Normal Inspection - Back Exam Back Exam: NORMAL INSPECTION - Neurological Exam Neurological Exam: Alert, Awake, CN II-XII Intact, Oriented x3 - Psychiatric Exam Psychiatric exam: Normal Affect, Normal Mood - Skin Skin Exam: Dry, Intact, Normal Color, Warm Assessment and Plan - Assessment and Plan (Free Text) Assessment: 6F with abdominal pain with sepsis, possibly 2/2 to gallstone pancreatitis Blood culture growing G + cocci LIpase 10k->9k->275 Lactate 4.5->1.9 WBC21->11->21->16.6 Afebrile Plan: -f/u AM labs : trend WBC lipase, LFT - NPO, pain control, IV fluids - ABX: recommend PICC - GI consult - Possible HIDA - Recommend IR cholecystostomy tube Will DW Dr. Rdedy <Kyle Reddy - Last Filed: 10/12/16 18:54> Objective - Vital Signs/Intake and Output Vital Signs (last 24 hours): Temp Pulse Resp BP Pulse Ox 98.8 F 74 20 157/81 H 98 10/12/16 16:10 10/12/16 16:10 10/12/16 16:10 10/12/16 16:10 10/12/16 16:10 Intake and Output: 10/12/16 10/12/16 06:59 18:59 Intake Total 350 860 Output Total 350 650 Balance 0 210 - Medications Medications: Current Medications Acetaminophen (Tylenol 325mg Tab) 650 mg PO Q6 PRN PRN Reason: Fever >100.4 F Last Admin: 10/09/16 17:07 Dose: 650 mg Albuterol/Ipratropium (Duoneb 3 Mg/0.5 Mg (3 Ml) Ud) 3 ml INH RQ6 PRN PRN Reason: Shortness of Breath Last Admin: 10/09/16 05:55 Dose: 3 ml Alprazolam (Xanax) 0.25 mg PO Q12 [facility] Stop: 10/14/16 10:16 Last Admin: 10/12/16 09:23 Dose: Not Given Docusate Sodium (Colace) 100 mg PO TID ON [facility] Last Admin: 10/12/16 17:07 Dose: Not Given Duloxetine HCl (Cymbalta) 60 mg PO HS [facility] Last Admin: 10/11/16 21:48 Dose: 60 mg Enalapril Maleate (Vasotec) 10 mg PO Q12 [facility] Last Admin: 10/12/16 12:25 Dose: 10 mg Enoxaparin Sodium (Lovenox) 100 mg 1 mg/kg (105 mg) SC Q12H [facility] PRN Reason: Protocol Last Admin: 10/12/16 18:09 Dose: 100 mg Famotidine (Pepcid) 20 mg IVP Q12 [facility] Last Admin: 10/12/16 11:07 Dose: Not Given Gabapentin (Neurontin) 600 mg PO Q8 [facility] Last Admin: 10/12/16 18:10 Dose: 600 mg Hydromorphone HCl (Dilaudid) 1 mg IVP Q3 PRN PRN Reason: Pain, severe (8-10) Last Admin: 10/12/16 18:08 Dose: 1 mg Meropenem 1 gm/ Sodium (Chloride) 100 mls @ 100 mls/hr IVPB Q12 [facility] Last Admin: 10/12/16 12:24 Dose: 100 mls/hr Vancomycin HCl 1 gm/ Sodium (Chloride) 250 mls @ 166.667 mls/hr IVPB Q12H [facility] Last Admin: 10/12/16 12:23 Dose: 166.667 mls/hr Insulin Human Regular (Humulin R) 0 units SC ACHS [facility] PRN Reason: Protocol Last Admin: 10/12/16 17:09 Dose: Not Given Metoprolol Tartrate (Lopressor) 12.5 mg PO Q12 [facility] Last Admin: 10/12/16 12:25 Dose: 12.5 mg Potassium Phos/Sodium Phos (Neutra-Phos) 1 pkt PO TID ON [facility] Last Admin: 10/12/16 18:10 Dose: 1 pkt Trazodone HCl (Desyrel) 50 mg PO HS [facility] Last Admin: 10/11/16 21:48 Dose: 50 mg - Labs Labs: 10/11/16 06:00 10/11/16 06:00 PT 16.0 Seconds (9.8-13.1) H 10/06/16 04:20 INR 1.5 (0.9-1.2) H 10/06/16 04:20 APTT 31.3 Seconds (25.6-37.1) 10/06/16 04:20 Attending/Attestation - Attestation I have personally seen and examined this patient.: Yes I have fully participated in the care of the patient.: Yes I have reviewed all pertinent clinical information, including history, physical exam and plan: Yes Notes (Text): 10/12/16 18:53 Pt was seen and examined at bedside Agree with above note and assessment Pt with Cholelithiasis with GS pancreatitis HIDA scan IR consult for cholecystostomy tube if HIDA is positive C/w current mx IV antibiotics Plan d.w pt in detail Risk and benefit explained in detail.
--- NOTE | 2016-10-06 10:24 | PCM.IRP ---
History of Present Illness - History of Present Illness History of Present Illness: IR requested to place cholecystostomy tube for patient with pancreatitis. Ultrasound and CT reviewed. There is little signs to suggest acute cholecystitis. Recommend obtaining HIDA scan prior to cholecystostomy tube. Objective - Vital Signs/Intake and Output Vital Signs (last 24 hours): Vital Signs - 24 hr 10/05/16 10/05/16 10/05/16 12:00 14:00 16:00 Temperature 99.9 F H 98.4 F Pulse Rate 93 H 93 H 91 H Respiratory 21 20 23 Rate Blood Pressure 123/56 L 149/76 158/107 H O2 Sat by Pulse 97 97 96 Oximetry 10/05/16 10/05/16 10/05/16 18:00 20:00 21:41 Temperature 98.8 F Pulse Rate 93 H 130 H 133 H Respiratory 25 H 27 H Rate Blood Pressure 180/89 H 171/90 H 191/119 H O2 Sat by Pulse 96 96 Oximetry 10/05/16 10/06/16 10/06/16 22:00 00:00 01:06 Temperature 97.6 F Pulse Rate 95 H 98 H 94 H Respiratory 25 H 29 H Rate Blood Pressure 174/88 H 192/90 H 193/115 H O2 Sat by Pulse 95 96 Oximetry 10/06/16 10/06/16 10/06/16 01:30 02:00 04:00 Temperature 98 F Pulse Rate 89 90 90 Respiratory 26 H 26 H 25 H Rate Blood Pressure 152/90 H 170/81 H 183/93 H O2 Sat by Pulse 97 97 96 Oximetry 10/06/16 10/06/16 10/06/16 06:00 06:31 07:00 Temperature Pulse Rate 90 85 78 Respiratory 22 25 H Rate Blood Pressure 195/94 H 182/95 H 173/78 H O2 Sat by Pulse 95 97 Oximetry 10/06/16 08:00 Temperature 98.7 F Pulse Rate 78 Respiratory 24 Rate Blood Pressure 171/89 H O2 Sat by Pulse 98 Oximetry Intake and Output (last 12 hours): Intake & Output 10/05/16 10/06/16 10/06/16 18:59 06:59 18:59 Intake Total 2074 2024 Output Total 405 650 Balance 1670 1375 Weight 233 lb Intake: IV 1725 1675 Intake, Piggyback 350 350 Output: Urine 405 650 Urethral (Reagan) 405 650 Other: # Bowel Movements 1 - Medications Medications: Current Medications Docusate Sodium (Colace) 100 mg PO TID [facility] Last Admin: 10/06/16 09:21 Dose: Not Given Duloxetine HCl (Cymbalta) 60 mg PO HS [facility] Famotidine (Pepcid) 20 mg IVP Q12 [facility] Last Admin: 10/06/16 09:25 Dose: 20 mg Gabapentin (Neurontin) 600 mg PO TID [facility] Last Admin: 10/06/16 09:23 Dose: Not Given Hydromorphone HCl (Dilaudid) 1 mg IVP Q3 PRN PRN Reason: Pain, severe (8-10) Last Admin: 10/06/16 09:55 Dose: 1 mg Vancomycin HCl 1 gm/ Sodium (Chloride) 250 mls @ 166.667 mls/hr IVPB Q12 [facility] Last Admin: 10/05/16 20:29 Dose: 166.667 mls/hr Meropenem 1 gm/ Sodium (Chloride) 100 mls @ 100 mls/hr IVPB Q12 [facility] Last Admin: 10/06/16 09:22 Dose: 100 mls/hr Lactated Ringer's (Lactated Ringer's) 1,000 mls @ 175 mls/hr IV .Q5H43M [facility] Last Admin: 10/06/16 09:21 Dose: 175 mls/hr Potassium Chloride (Potassium Cl 10meq/50ml Sterile Water) 50 mls @ 50 mls/hr IVPB Q1 [facility] Stop: 10/06/16 10:59 Last Admin: 10/06/16 09:25 Dose: 50 mls/hr Insulin Human Regular (Humulin R) 0 units SC ACHS [facility] PRN Reason: Protocol Last Admin: 10/06/16 06:44 Dose: Not Given Metoprolol Tartrate (Lopressor) 5 mg IVP Q6 [facility] Last Admin: 10/05/16 09:04 Dose: 5 mg Metoprolol Tartrate (Lopressor) 12.5 mg PO Q12 [facility] Last Admin: 10/06/16 09:23 Dose: Not Given Sennosides (Senokot Tab) 8.6 mg PO BID [facility] Last Admin: 10/06/16 09:23 Dose: Not Given Trazodone HCl (Desyrel) 50 mg PO [facility] - Labs Labs (last 24 hours): Laboratory Results - last 24 hr 10/04/16 10/05/16 10/05/16 06:00 11:15 14:49 WBC RBC Hgb Hct MCV MCH MCHC RDW Plt Count MPV Neut % (Auto) Lymph % (Auto) Cassia % (Auto) Eos % (Auto) Baso % (Auto) Neut # Lymph # Cassia # Eos # Baso # PT INR APTT pCO2 35 pO2 100 HCO3 21.9 ABG pH 7.38 ABG Total CO2 21.8 L ABG O2 Saturation 98.3 H ABG O2 Content 17.6 ABG Base Excess -3.8 L ABG Hemoglobin 13.1 ABG Carboxyhemoglobin 1.3 POC ABG HHb (Measured) 1.6 ABG Methemoglobin 1.9 ABG O2 Capacity 17.9 Mahesh Test Yes A-a O2 Difference 6.0 Hgb O2 Saturation 95.2 FiO2 21.0 Sodium Potassium Chloride Carbon Dioxide Anion Gap BUN Creatinine Est GFR ( Amer) Est GFR (Non-Af Amer) POC Glucose (mg/dL) 128 H Random Glucose Hemoglobin A1c 6.3 Calcium Total Bilirubin AST ALT Alkaline Phosphatase Total Protein Albumin Globulin Albumin/Globulin Ratio Lipase 10/05/16 10/05/16 10/06/16 15:56 23:03 04:20 WBC RBC Hgb Hct MCV MCH MCHC RDW Plt Count MPV Neut % (Auto) Lymph % (Auto) Cassia % (Auto) Eos % (Auto) Baso % (Auto) Neut # Lymph # Cassia # Eos # Baso # PT INR APTT pCO2 pO2 HCO3 ABG pH ABG Total CO2 ABG O2 Saturation ABG O2 Content ABG Base Excess ABG Hemoglobin ABG Carboxyhemoglobin POC ABG HHb (Measured) ABG Methemoglobin ABG O2 Capacity Mahesh Test A-a O2 Difference Hgb O2 Saturation FiO2 Sodium 140 Potassium 3.2 L Chloride 107 Carbon Dioxide 23 Anion Gap 13 BUN 29 H Creatinine 0.8 Est GFR ( Amer) > 60 Est GFR (Non-Af Amer) > 60 POC Glucose (mg/dL) 84 77 Random Glucose 98 Hemoglobin A1c Calcium 8.2 L Total Bilirubin 0.7 AST 27 ALT 26 Alkaline Phosphatase 81 Total Protein 6.2 L Albumin 3.0 L Globulin 3.2 Albumin/Globulin Ratio 0.9 L Lipase 275 10/06/16 10/06/16 10/06/16 04:20 04:20 04:29 WBC 16.6 H RBC 4.08 Hgb 12.1 Hct 36.9 MCV 90.6 MCH 29.6 MCHC 32.7 L RDW 13.9 Plt Count 206 MPV 9.0 Neut % (Auto) 90.9 H Lymph % (Auto) 3.8 L Cassia % (Auto) 5.1 Eos % (Auto) 0.1 Baso % (Auto) 0.1 Neut # 15.1 H Lymph # 0.6 L Cassia # 0.8 Eos # 0.0 Baso # 0.0 PT 16.0 H INR 1.5 H APTT 31.3 pCO2 pO2 HCO3 ABG pH ABG Total CO2 ABG O2 Saturation ABG O2 Content ABG Base Excess ABG Hemoglobin ABG Carboxyhemoglobin POC ABG HHb (Measured) ABG Methemoglobin ABG O2 Capacity Mahesh Test A-a O2 Difference Hgb O2 Saturation FiO2 Sodium Potassium Chloride Carbon Dioxide Anion Gap BUN Creatinine Est GFR ( Amer) Est GFR (Non-Af Amer) POC Glucose (mg/dL) 97 Random Glucose Hemoglobin A1c Calcium Total Bilirubin AST ALT Alkaline Phosphatase Total Protein Albumin Globulin Albumin/Globulin Ratio Lipase
[2016-10-06] MEDS ORDERED: EnalaprilAT 1.25 mg/ml Inj IVP STA (10:32)
[2016-10-06 11:14] LABS: NEUTROPHIL 87 % (42-75); TOTAL CELLS COUNTED 100
[2016-10-06] MEDS ORDERED: Metoprolol 1 mg/ml Inj IVP ONE (13:00)
--- NOTE | 2016-10-06 13:11 | CARD ---
APPROVED REPORT EKG Measurement Heart [id number] <Conclusion> Atrial fibrillation with rapid ventricular response with premature ventricular or aberrantly conducted complexes Low voltage QRS Nonspecific T wave abnormality Abnormal ECG
--- NOTE | 2016-10-06 13:26 | CP.PCM.PN ---
Subjective - Date & Time of Evaluation Date of Evaluation: 10/06/16 Time of Evaluation: 13:26 - Subjective Subjective: ID note- pt. seen and examined today in ICU. pt. awake and alert today and is not confused today. She denies any fever or chills. denies any abdominal pain. Objective - Vital Signs/Intake and Output Vital Signs (last 24 hours): Temp Pulse Resp BP Pulse Ox 97.7 F 74 27 H 210/120 H 96 10/06/16 12:00 10/06/16 12:40 10/06/16 12:00 10/06/16 12:40 10/06/16 12:00 Intake and Output: 10/06/16 10/06/16 06:59 18:59 Intake Total 2025 1150 Output Total 650 Balance 1375 1150 - Medications Medications: Current Medications Docusate Sodium (Colace) 100 mg PO TID [facility] Last Admin: 10/06/16 09:21 Dose: Not Given Duloxetine HCl (Cymbalta) 60 mg PO HS [facility] Enalaprilat (Vasotec Iv) 1.25 mg IVP Q12 [facility] Famotidine (Pepcid) 20 mg IVP Q12 [facility] Last Admin: 10/06/16 09:25 Dose: 20 mg Gabapentin (Neurontin) 600 mg PO TID [facility] Last Admin: 10/06/16 09:23 Dose: Not Given Hydromorphone HCl (Dilaudid) 1 mg IVP Q3 PRN PRN Reason: Pain, severe (8-10) Last Admin: 10/06/16 09:55 Dose: 1 mg Vancomycin HCl 1 gm/ Sodium (Chloride) 250 mls @ 166.667 mls/hr IVPB Q12 [facility] Last Admin: 10/06/16 10:00 Dose: 166.667 mls/hr Meropenem 1 gm/ Sodium (Chloride) 100 mls @ 100 mls/hr IVPB Q12 [facility] Last Admin: 10/06/16 09:22 Dose: 100 mls/hr Lactated Ringer's (Lactated Ringer's) 1,000 mls @ 175 mls/hr IV .[id number] [facility] Last Admin: 10/06/16 09:21 Dose: 175 mls/hr Insulin Human Regular (Humulin R) 0 units SC ACHS [facility] PRN Reason: Protocol Last Admin: 10/06/16 12:01 Dose: Not Given Metoprolol Tartrate (Lopressor) 5 mg IVP Q6 [facility] Last Admin: 10/05/16 09:04 Dose: 5 mg Metoprolol Tartrate (Lopressor) 12.5 mg PO Q12 [facility] Last Admin: 10/06/16 09:23 Dose: Not Given Sennosides (Senokot Tab) 8.6 mg PO BID [facility] Last Admin: 10/06/16 09:23 Dose: Not Given Trazodone HCl (Desyrel) 50 mg PO HS [facility] - Labs Labs: - Additional Findings Additional findings: Laboratory Results - last 72 hr 10/03/16 10/03/16 10/03/16 21:53 21:53 22:47 WBC 21.0 H D RBC 5.57 H Hgb 16.5 H Hct 50.9 H MCV 91.3 MCH 29.5 MCHC 32.3 L RDW 13.4 Plt Count 322 D MPV 8.7 Neut % (Auto) 89.5 H Lymph % (Auto) 5.9 L Edgar % (Auto) 4.4 Eos % (Auto) 0.0 Baso % (Auto) 0.2 Neut # 18.8 H Lymph # 1.2 Edgar # 0.9 H Eos # 0.0 Baso # 0.0 Neutrophils % (Manual) 87 H Band Neutrophils % 1 Lymphocytes % (Manual) 7 L Reactive Lymphs % Monocytes % (Manual) 5 Platelet Estimate Normal RBC Morphology PT INR APTT pCO2 pO2 15 L HCO3 ABG pH ABG Total CO2 ABG O2 Saturation ABG O2 Content ABG Base Excess ABG Hemoglobin ABG Carboxyhemoglobin POC ABG HHb (Measured) ABG Methemoglobin ABG O2 Capacity Mahesh Test VBG pH 7.34 VBG pCO2 55 VBG HCO3 24.8 VBG Total CO2 31.4 H VBG O2 Sat (Calc) 26.2 L VBG Base Excess 2.6 H VBG Potassium 6.5 H* A-a O2 Difference Hgb O2 Saturation Glucose 203 H Lactate 4.5 H* FiO2 21.0 Blood Gas Comments Lactate 4.5 Crit Value Called To mau lEam Crit Value Called By 203 Crit Value Read Back Y Blood Gas Notified Time 2253 Sodium 135 133.0 Potassium 6.5 H* D Chloride 94 L 95.0 L Carbon Dioxide 24 Anion Gap 24 H BUN 19 H Creatinine 0.7 Est GFR ( Amer) > 60 Est GFR (Non-Af Amer) > 60 POC Glucose (mg/dL) Random Glucose 202 H Hemoglobin A1c Lactic Acid Calcium 9.3 Total Bilirubin 2.3 H AST 77 H D ALT < 6 L D Alkaline Phosphatase 149 H D Troponin I 0.0240 Total Protein 10.2 H Albumin 5.2 H D Globulin 5.0 H Albumin/Globulin Ratio 1.0 Triglycerides Cholesterol LDL Cholesterol Direct HDL Cholesterol Lipase 9473 H Venous Blood Potassium 6.5 H* Urine Color Urine Clarity Urine pH Ur Specific [place] Urine Protein Urine Glucose (UA) Urine Ketones Urine Blood Urine Nitrate Urine Bilirubin Urine Urobilinogen Ur Leukocyte Esterase Urine RBC (Auto) Urine Microscopic WBC Ur Squamous Epith Cells Urine Bacteria Granular Casts (Auto) 10/03/16 10/04/16 10/04/16 22:59 02:06 05:46 WBC RBC Hgb Hct MCV MCH MCHC RDW Plt Count MPV Neut % (Auto) Lymph % (Auto) Edgar % (Auto) Eos % (Auto) Baso % (Auto) Neut # Lymph # Edgar # Eos # Baso # Neutrophils % (Manual) Band Neutrophils % Lymphocytes % (Manual) Reactive Lymphs % Monocytes % (Manual) Platelet Estimate RBC Morphology PT INR APTT pCO2 pO2 HCO3 ABG pH ABG Total CO2 ABG O2 Saturation ABG O2 Content ABG Base Excess ABG Hemoglobin ABG Carboxyhemoglobin POC ABG HHb (Measured) ABG Methemoglobin ABG O2 Capacity Mahesh Test VBG pH VBG pCO2 VBG HCO3 VBG Total CO2 VBG O2 Sat (Calc) VBG Base Excess VBG Potassium A-a O2 Difference Hgb O2 Saturation Glucose Lactate FiO2 Blood Gas Comments Crit Value Called To Crit Value Called By Crit Value Read Back Blood Gas Notified Time Sodium 134 Potassium 4.0 Chloride 97 L Carbon Dioxide 23 Anion Gap 18 BUN 19 H Creatinine 0.6 L Est GFR ( Amer) > 60 Est GFR (Non-Af Amer) > 60 POC Glucose (mg/dL) 131 H Random Glucose 143 H Hemoglobin A1c Lactic Acid Calcium 8.7 Total Bilirubin 0.9 AST 41 H D ALT 31 Alkaline Phosphatase 120 Troponin I Total Protein 8.1 Albumin 4.2 Globulin 3.8 Albumin/Globulin Ratio 1.1 Triglycerides Cholesterol LDL Cholesterol Direct HDL Cholesterol Lipase 7985 H Venous Blood Potassium Urine Color Yellow Urine Clarity Slighty-cloudy Urine pH 7.0 Ur Specific [place]oval 1.023 Urine Protein >=500 Urine Glucose (UA) 150 Urine Ketones Trace Urine Blood Small Urine Nitrate Negative Urine Bilirubin Negative Urine Urobilinogen 0.2-1.0 Ur Leukocyte Esterase Neg Urine RBC (Auto) 4 H Urine Microscopic WBC 2 Ur Squamous Epith Cells 3 Urine Bacteria Mod H Granular Casts (Auto) 1 10/04/16 10/04/16 10/04/16 06:00 06:00 06:00 WBC 11.8 H RBC 5.21 H Hgb 15.3 Hct 47.1 H MCV 90.4 MCH 29.4 MCHC 32.5 L RDW 13.5 Plt Count 238 MPV Neut % (Auto) Lymph % (Auto) Edgar % (Auto) Eos % (Auto) Baso % (Auto) Neut # Lymph # Edgar # Eos # Baso # Neutrophils % (Manual) Band Neutrophils % Lymphocytes % (Manual) Reactive Lymphs % Monocytes % (Manual) Platelet Estimate RBC Morphology PT INR APTT pCO2 pO2 HCO3 ABG pH ABG Total CO2 ABG O2 Saturation ABG O2 Content ABG Base Excess ABG Hemoglobin ABG Carboxyhemoglobin POC ABG HHb (Measured) ABG Methemoglobin ABG O2 Capacity Mahesh Test VBG pH VBG pCO2 VBG HCO3 VBG Total CO2 VBG O2 Sat (Calc) VBG Base Excess VBG Potassium A-a O2 Difference Hgb O2 Saturation Glucose Lactate FiO2 Blood Gas Comments Crit Value Called To Crit Value Called By Crit Value Read Back Blood Gas Notified Time Sodium Potassium Chloride Carbon Dioxide Anion Gap BUN Creatinine Est GFR ( Amer) Est GFR (Non-Af Amer) POC Glucose (mg/dL) Random Glucose Hemoglobin A1c 6.3 Lactic Acid Calcium Total Bilirubin AST ALT Alkaline Phosphatase Troponin I Total Protein Albumin Globulin Albumin/Globulin Ratio Triglycerides 72 Cholesterol 203 H LDL Cholesterol Direct 140 H HDL Cholesterol 41 Lipase 5357 H Venous Blood Potassium Urine Color Urine Clarity Urine pH Ur Specific [place] Urine Protein Urine Glucose (UA) Urine Ketones Urine Blood Urine Nitrate Urine Bilirubin Urine Urobilinogen Ur Leukocyte Esterase Urine RBC (Auto) Urine Microscopic WBC Ur Squamous Epith Cells Urine Bacteria Granular Casts (Auto) 10/04/16 10/04/16 10/04/16 06:30 10:00 11:08 WBC RBC Hgb Hct MCV MCH MCHC RDW Plt Count MPV Neut % (Auto) Lymph % (Auto) Edgar % (Auto) Eos % (Auto) Baso % (Auto) Neut # Lymph # Edgar # Eos # Baso # Neutrophils % (Manual) Band Neutrophils % Lymphocytes % (Manual) Reactive Lymphs % Monocytes % (Manual) Platelet Estimate RBC Morphology PT INR APTT pCO2 33 L pO2 69 L HCO3 23.1 ABG pH 7.42 ABG Total CO2 22.4 ABG O2 Saturation 96.4 ABG O2 Content 20.2 ABG Base Excess -2.2 L ABG Hemoglobin 15.5 ABG Carboxyhemoglobin 2.1 H POC ABG HHb (Measured) 3.5 ABG Methemoglobin 1.7 ABG O2 Capacity 21.0 Mahesh Test Yes VBG pH VBG pCO2 VBG HCO3 VBG Total CO2 VBG O2 Sat (Calc) VBG Base Excess VBG Potassium A-a O2 Difference 89.0 Hgb O2 Saturation 92.8 L Glucose Lactate FiO2 28.0 Blood Gas Comments 2l/m'nc rr Crit Value Called To Crit Value Called By 15 Crit Value Read Back N Blood Gas Notified Time Sodium Potassium Chloride Carbon Dioxide Anion Gap BUN Creatinine Est GFR ( Amer) Est GFR (Non-Af Amer) POC Glucose (mg/dL) 133 H Random Glucose Hemoglobin A1c Lactic Acid 1.9 Calcium Total Bilirubin AST ALT Alkaline Phosphatase Troponin I Total Protein Albumin Globulin Albumin/Globulin Ratio Triglycerides Cholesterol LDL Cholesterol Direct HDL Cholesterol Lipase Venous Blood Potassium Urine Color Urine Clarity Urine pH Ur Specific [place] Urine Protein Urine Glucose (UA) Urine Ketones Urine Blood Urine Nitrate Urine Bilirubin Urine Urobilinogen Ur Leukocyte Esterase Urine RBC (Auto) Urine Microscopic WBC Ur Squamous Epith Cells Urine Bacteria Granular Casts (Auto) 10/04/16 10/04/16 10/05/16 16:42 19:58 04:29 WBC RBC Hgb Hct MCV MCH MCHC RDW Plt Count MPV Neut % (Auto) Lymph % (Auto) Edgar % (Auto) Eos % (Auto) Baso % (Auto) Neut # Lymph # Edgar # Eos # Baso # Neutrophils % (Manual) Band Neutrophils % Lymphocytes % (Manual) Reactive Lymphs % Monocytes % (Manual) Platelet Estimate RBC Morphology PT INR APTT pCO2 pO2 HCO3 ABG pH ABG Total CO2 ABG O2 Saturation ABG O2 Content ABG Base Excess ABG Hemoglobin ABG Carboxyhemoglobin POC ABG HHb (Measured) ABG Methemoglobin ABG O2 Capacity Mahesh Test VBG pH VBG pCO2 VBG HCO3 VBG Total CO2 VBG O2 Sat (Calc) VBG Base Excess VBG Potassium A-a O2 Difference Hgb O2 Saturation Glucose Lactate FiO2 Blood Gas Comments Crit Value Called To Crit Value Called By Crit Value Read Back Blood Gas Notified Time Sodium Potassium Chloride Carbon Dioxide Anion Gap BUN Creatinine Est GFR ( Amer) Est GFR (Non-Af Amer) POC Glucose (mg/dL) 120 H 113 H 99 Random Glucose Hemoglobin A1c Lactic Acid Calcium Total Bilirubin AST ALT Alkaline Phosphatase Troponin I Total Protein Albumin Globulin Albumin/Globulin Ratio Triglycerides Cholesterol LDL Cholesterol Direct HDL Cholesterol Lipase Venous Blood Potassium Urine Color Urine Clarity Urine pH Ur Specific [place] Urine Protein Urine Glucose (UA) Urine Ketones Urine Blood Urine Nitrate Urine Bilirubin Urine Urobilinogen Ur Leukocyte Esterase Urine RBC (Auto) Urine Microscopic WBC Ur Squamous Epith Cells Urine Bacteria Granular Casts (Auto) 10/05/16 10/05/16 10/05/16 05:40 05:40 11:15 WBC 21.4 H D RBC 4.42 Hgb 13.1 D Hct 40.4 MCV 91.4 MCH 29.6 MCHC 32.4 L RDW 13.7 Plt Count 221 MPV 9.1 Neut % (Auto) 90.9 H Lymph % (Auto) 3.9 L Edgar % (Auto) 5.1 Eos % (Auto) 0.0 Baso % (Auto) 0.1 Neut # 19.4 H Lymph # 0.8 L Edgar # 1.1 H Eos # 0.0 Baso # 0.0 Neutrophils % (Manual) 80 H Band Neutrophils % 5 H Lymphocytes % (Manual) 7 L Reactive Lymphs % 1 H Monocytes % (Manual) 7 Platelet Estimate Normal RBC Morphology PT INR APTT pCO2 pO2 HCO3 ABG pH ABG Total CO2 ABG O2 Saturation ABG O2 Content ABG Base Excess ABG Hemoglobin ABG Carboxyhemoglobin POC ABG HHb (Measured) ABG Methemoglobin ABG O2 Capacity Mahesh Test VBG pH VBG pCO2 VBG HCO3 VBG Total CO2 VBG O2 Sat (Calc) VBG Base Excess VBG Potassium A-a O2 Difference Hgb O2 Saturation Glucose Lactate FiO2 Blood Gas Comments Crit Value Called To Crit Value Called By Crit Value Read Back Blood Gas Notified Time Sodium 139 Potassium 3.6 Chloride 108 H Carbon Dioxide 20 L Anion Gap 15 BUN 32 H Creatinine 1.1 Est GFR ( Amer) 58 Est GFR (Non-Af Amer) 48 POC Glucose (mg/dL) 128 H Random Glucose 110 H Hemoglobin A1c Lactic Acid Calcium 7.6 L Total Bilirubin 0.8 AST 24 ALT 23 Alkaline Phosphatase 65 Troponin I Total Protein 6.0 L Albumin 2.9 L D Globulin 3.1 Albumin/Globulin Ratio 0.9 L Triglycerides Cholesterol LDL Cholesterol Direct HDL Cholesterol Lipase Venous Blood Potassium Urine Color Urine Clarity Urine pH Ur Specific Sand[place] Urine Protein Urine Glucose (UA) Urine Ketones Urine Blood Urine Nitrate Urine Bilirubin Urine Urobilinogen Ur Leukocyte Esterase Urine RBC (Auto) Urine Microscopic WBC Ur Squamous Epith Cells Urine Bacteria Granular Casts (Auto) 10/05/16 10/05/16 10/05/16 14:49 15:56 23:03 WBC RBC Hgb Hct MCV MCH MCHC RDW Plt Count MPV Neut % (Auto) Lymph % (Auto) Edgar % (Auto) Eos % (Auto) Baso % (Auto) Neut # Lymph # Edgar # Eos # Baso # Neutrophils % (Manual) Band Neutrophils % Lymphocytes % (Manual) Reactive Lymphs % Monocytes % (Manual) Platelet Estimate RBC Morphology PT INR APTT pCO2 35 pO2 100 HCO3 21.9 ABG pH 7.38 ABG Total CO2 21.8 L ABG O2 Saturation 98.3 H ABG O2 Content 17.6 ABG Base Excess -3.8 L ABG Hemoglobin 13.1 ABG Carboxyhemoglobin 1.3 POC ABG HHb (Measured) 1.6 ABG Methemoglobin 1.9 ABG O2 Capacity 17.9 Mahesh Test Yes VBG pH VBG pCO2 VBG HCO3 VBG Total CO2 VBG O2 Sat (Calc) VBG Base Excess VBG Potassium A-a O2 Difference 6.0 Hgb O2 Saturation 95.2 Glucose Lactate FiO2 21.0 Blood Gas Comments Crit Value Called To Crit Value Called By Crit Value Read Back Blood Gas Notified Time Sodium Potassium Chloride Carbon Dioxide Anion Gap BUN Creatinine Est GFR ( Amer) Est GFR (Non-Af Amer) POC Glucose (mg/dL) 84 77 Random Glucose Hemoglobin A1c Lactic Acid Calcium Total Bilirubin AST ALT Alkaline Phosphatase Troponin I Total Protein Albumin Globulin Albumin/Globulin Ratio Triglycerides Cholesterol LDL Cholesterol Direct HDL Cholesterol Lipase Venous Blood Potassium Urine Color Urine Clarity Urine pH Ur Specific [place] Urine Protein Urine Glucose (UA) Urine Ketones Urine Blood Urine Nitrate Urine Bilirubin Urine Urobilinogen Ur Leukocyte Esterase Urine RBC (Auto) Urine Microscopic WBC Ur Squamous Epith Cells Urine Bacteria Granular Casts (Auto) 10/06/16 10/06/16 10/06/16 04:20 04:20 04:20 WBC 16.6 H RBC 4.08 Hgb 12.1 Hct 36.9 MCV 90.6 MCH 29.6 MCHC 32.7 L RDW 13.9 Plt Count 206 MPV 9.0 Neut % (Auto) 90.9 H Lymph % (Auto) 3.8 L Edgar % (Auto) 5.1 Eos % (Auto) 0.1 Baso % (Auto) 0.1 Neut # 15.1 H Lymph # 0.6 L Edgar # 0.8 Eos # 0.0 Baso # 0.0 Neutrophils % (Manual) 87 H Band Neutrophils % 2 Lymphocytes % (Manual) 5 L Reactive Lymphs % Monocytes % (Manual) 6 Platelet Estimate Normal RBC Morphology Normal PT 16.0 H INR 1.5 H APTT 31.3 pCO2 pO2 HCO3 ABG pH ABG Total CO2 ABG O2 Saturation ABG O2 Content ABG Base Excess ABG Hemoglobin ABG Carboxyhemoglobin POC ABG HHb (Measured) ABG Methemoglobin ABG O2 Capacity Mahesh Test VBG pH VBG pCO2 VBG HCO3 VBG Total CO2 VBG O2 Sat (Calc) VBG Base Excess VBG Potassium A-a O2 Difference Hgb O2 Saturation Glucose Lactate FiO2 Blood Gas Comments Crit Value Called To Crit Value Called By Crit Value Read Back Blood Gas Notified Time Sodium 140 Potassium 3.2 L Chloride 107 Carbon Dioxide 23 Anion Gap 13 BUN 29 H Creatinine 0.8 Est GFR ( Amer) > 60 Est GFR (Non-Af Amer) > 60 POC Glucose (mg/dL) Random Glucose 98 Hemoglobin A1c Lactic Acid Calcium 8.2 L Total Bilirubin 0.7 AST 27 ALT 26 Alkaline Phosphatase 81 Troponin I Total Protein 6.2 L Albumin 3.0 L Globulin 3.2 Albumin/Globulin Ratio 0.9 L Triglycerides Cholesterol LDL Cholesterol Direct HDL Cholesterol Lipase 275 Venous Blood Potassium Urine Color Urine Clarity Urine pH Ur Specific [place] Urine Protein Urine Glucose (UA) Urine Ketones Urine Blood Urine Nitrate Urine Bilirubin Urine Urobilinogen Ur Leukocyte Esterase Urine RBC (Auto) Urine Microscopic WBC Ur Squamous Epith Cells Urine Bacteria Granular Casts (Auto) 10/06/16 10/06/16 04:29 11:18 WBC RBC Hgb Hct MCV MCH MCHC RDW Plt Count MPV Neut % (Auto) Lymph % (Auto) Edgar % (Auto) Eos % (Auto) Baso % (Auto) Neut # Lymph # Edgar # Eos # Baso # Neutrophils % (Manual) Band Neutrophils % Lymphocytes % (Manual) Reactive Lymphs % Monocytes % (Manual) Platelet Estimate RBC Morphology PT INR APTT pCO2 pO2 HCO3 ABG pH ABG Total CO2 ABG O2 Saturation ABG O2 Content ABG Base Excess ABG Hemoglobin ABG Carboxyhemoglobin POC ABG HHb (Measured) ABG Methemoglobin ABG O2 Capacity Mahesh Test VBG pH VBG pCO2 VBG HCO3 VBG Total CO2 VBG O2 Sat (Calc) VBG Base Excess VBG Potassium A-a O2 Difference Hgb O2 Saturation Glucose Lactate FiO2 Blood Gas Comments Crit Value Called To Crit Value Called By Crit Value Read Back Blood Gas Notified Time Sodium Potassium Chloride Carbon Dioxide Anion Gap BUN Creatinine Est GFR ( Amer) Est GFR (Non-Af Amer) POC Glucose (mg/dL) 97 89 Random Glucose Hemoglobin A1c Lactic Acid Calcium Total Bilirubin AST ALT Alkaline Phosphatase Troponin I Total Protein Albumin Globulin Albumin/Globulin Ratio Triglycerides Cholesterol LDL Cholesterol Direct HDL Cholesterol Lipase Venous Blood Potassium Urine Color Urine Clarity Urine pH Ur Specific [place] Urine Protein Urine Glucose (UA) Urine Ketones Urine Blood Urine Nitrate Urine Bilirubin Urine Urobilinogen Ur Leukocyte Esterase Urine RBC (Auto) Urine Microscopic WBC Ur Squamous Epith Cells Urine Bacteria Granular Casts (Auto) Microbiology 10/04/16 15:00 Nose MRSA Culture (Admit) - Final MRSA NOT DETECTED 10/03/16 10:00 Blood-Venous S.aureus & Coag-Neg Staph PNA FISH - Final 10/03/16 10:00 Blood-Venous Blood Culture - Preliminary Gram Positive Cocci 10/03/16 10:00 Blood-Venous Gram Stain - Final 10/03/16 02:06 Blood-Venous Blood Culture - Preliminary NO GROWTH AFTER 48 HOURS 10/04/16 17:00 Blood-Venous Blood Culture - Preliminary NO GROWTH AFTER 24 HOURS 10/04/16 17:00 Blood-Venous Blood Culture - Preliminary NO GROWTH AFTER 24 HOURS 10/03/16 23:59 Urine Urine Culture - Final No Growth (<1,000 CFU/ML) - Head Exam Head Exam: ATRAUMATIC - Eye Exam Eye Exam: EOMI - Neck Exam Neck Exam: Full ROM - Respiratory Exam Respiratory Exam: NORMAL BREATHING PATTERN Additional comments: good breath sounds b/l - Cardiovascular Exam Cardiovascular Exam: RRR, +S1, +S2 - GI/Abdominal Exam GI & Abdominal Exam: Soft, Normal Bowel Sounds Additional comments: no tenderness to palpation today no guarding no rebound - Extremities Exam Extremities Exam: Normal Inspection - Neurological Exam Neurological Exam: Awake and much more alert today Assessment and Plan (1) Cholecystitis Status: Deleted (2) Pancreatitis Status: Acute (3) Leukocytosis Status: Acute - Assessment and Plan (Free Text) Assessment: A/P- 76 year old female with multiple medical conditions including DM II, HTN, pancreatitis admitted with worsening abdominal pain and nausea found to have cholelithiasis with cholecystitis and GS pancreatitis with and elevated wbc as well as elevated lipase and LFts and elavted lactate. afebrile leukocytosis trending down today. more alert today. CT abd report noted. abd US- cholelithiasis with ? cholecystitis as per report. CXR- ? left lower lung effusion as per report. 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 LFTs have normalized, lipase is normal value now. plan- advise to continue with broad spectrum abx coverage empirically for now to cover for gram neg and anaerobes . hence continue with IV meropenem day #3. continue with IV vanco for coag neg staph bacteremia that was just reported by micro. keep trough <15. day #3. monitor wbc may get HIDA as per IR note prior to ? cholecystostomy . ICU time 45 minutes.
--- NOTE | 2016-10-06 14:02 | CARD ---
APPROVED REPORT EXAM: Two-dimensional and M-mode echocardiogram with Doppler and color Doppler. Other Information Quality : AverageRhythm : NSR INDICATION Infection: 2D DIMENSIONS IVSd1.33 (0.7-1.1cm)LVDd5.12 (3.9-5.9cm) LVOT Diameter2.25 (1.8-2.4cm)PWd1.11 (0.7-1.1cm) IVSs1.56 (0.8-1.2cm)LVDs3.22 (2.5-4.0cm) FS (%) 37.0 %PWs1.53 (0.8-1.2cm) M-Mode DIMENSIONS Left Atrium (MM)4.88 (2.5-4.0cm)IVSd1.44 (0.7-1.1cm) Aortic Root3.28 (2.2-3.7cm)LVDd4.88 (4.0-5.6cm) Aortic Cusp Exc.1.72 (1.5-2.0cm)PWd1.31 (0.7-1.1cm) IVSs1.84 cmFS (%) 30 % LVDs3.41 (2.0-3.8cm)PWs1.44 cm Mitral Valve MV E Xqrazehp152.7cm/sMV DECEL [id number] A Dtqhmmkk32.1cm/s MV [id number]/A ratio1.1MVA (PHT)5.38cm2 TDI E/Lateral E'0.0E/Medial E'0.0 Tricuspid Valve TR Peak [id number] [id number] Peak Gr.30mmHg [id number] LEFT VENTRICLE The left ventricle is normal size. There is normal left ventricular wall thickness on the 2D study. The left ventricular function is normal. The left ventricular ejection fraction is - 70%. There is normal LV segmental wall motion. The left ventricular diastolic function is normal. No left ventricle thrombus noted on this study. There is no ventricular septal defect visualized. There is no left ventricular aneurysm. There is no mass noted in the left ventricle. RIGHT VENTRICLE The right ventricle is normal size. There is normal right ventricular wall thickness. The right ventricular systolic function is normal. ATRIA The left atrium is mildly dilated. There is no thrombus suspected in the left atrium. The right atrium size is normal. The interatrial septum is intact with no evidence for an atrial septal defect. AORTIC VALVE The aortic valve is mildly thickened. No aortic regurgitation is present. There is no aortic valvular stenosis. There is no aortic valvular vegetation. MITRAL VALVE The mitral valve leaflets are mildly thickened. There is no evidence of mitral valve prolapse. There is no mitral valve stenosis. Mitral regurgitation is moderate. TRICUSPID VALVE The tricuspid valve is normal in structure and function. There is mild tricuspid regurgitation. Right ventricular systolic pressure is estimated at 41 mmHg. There is no tricuspid valve prolapse or vegetation. There is no tricuspid valve stenosis. PULMONIC VALVE The pulmonary valve is normal in structure and function. There is no pulmonic valvular regurgitation. GREAT VESSELS The aortic root is normal in size. The IVC was not well visualized. PERICARDIAL EFFUSION The pericardium appears normal. There is no pleural effusion. <Conclusion> The study is only of fair quality. The left ventricle is normal in size and wall thickness. The left ventricular function is normal. The left ventricular ejection fraction is - 70%. The left atrium is mildly dilated. The aortic and mitral valves are mildly thickened. The tricuspid valve is normal. No valvular vegetations were seen. There is moderate mitral regurgitation and mild tricuspid regurgitation.
[2016-10-06] MEDS: Metoprolol 1 mg/ml Inj IVP SCH (16:39)
--- NOTE | 2016-10-06 18:38 | CP.PCM.PN ---
Subjective - Date & Time of Evaluation Date of Evaluation: 10/06/16 Time of Evaluation: 18:36 - Subjective Subjective: Patient awake and responsive and denies pain. Objective - Vital Signs/Intake and Output Vital Signs (last 24 hours): Temp Pulse Resp BP Pulse Ox 99.0 F 76 36 H 191/79 H 97 10/06/16 15:41 10/06/16 16:39 10/06/16 15:41 10/06/16 16:39 10/06/16 15:41 Intake and Output: 10/06/16 10/06/16 06:59 18:59 Intake Total 2024 1850 Output Total 650 Balance 1375 1850 - Medications Medications: Current Medications Docusate Sodium (Colace) 100 mg PO TID [facility] Last Admin: 10/06/16 16:38 Dose: Not Given Duloxetine HCl (Cymbalta) 60 mg PO HS [facility] Enalaprilat (Vasotec Iv) 1.25 mg IVP Q12 [facility] Famotidine (Pepcid) 20 mg IVP Q12 [facility] Last Admin: 10/06/16 09:25 Dose: 20 mg Gabapentin (Neurontin) 600 mg PO TID [facility] Last Admin: 10/06/16 16:39 Dose: Not Given Hydromorphone HCl (Dilaudid) 1 mg IVP Q3 PRN PRN Reason: Pain, severe (8-10) Last Admin: 10/06/16 17:48 Dose: 1 mg Vancomycin HCl 1 gm/ Sodium (Chloride) 250 mls @ 166.667 mls/hr IVPB Q12 [facility] Last Admin: 10/06/16 10:00 Dose: 166.667 mls/hr Meropenem 1 gm/ Sodium (Chloride) 100 mls @ 100 mls/hr IVPB Q12 [facility] Last Admin: 10/06/16 09:22 Dose: 100 mls/hr Lactated Ringer's (Lactated Ringer's) 1,000 mls @ 175 mls/hr IV .Q5H43M [facility] Last Admin: 10/06/16 16:38 Dose: 175 mls/hr Insulin Human Regular (Humulin R) 0 units SC ACHS [facility] PRN Reason: Protocol Last Admin: 10/06/16 16:38 Dose: Not Given Metoprolol Tartrate (Lopressor) 12.5 mg PO Q12 [facility] Last Admin: 10/06/16 09:23 Dose: Not Given Sennosides (Senokot Tab) 8.6 mg PO BID [facility] Last Admin: 10/06/16 16:39 Dose: Not Given Trazodone HCl (Desyrel) 50 mg PO HS [facility] - Labs Labs: 10/06/16 04:20 10/06/16 04:20 PT 16.0 Seconds (9.8-13.1) H 10/06/16 04:20 INR 1.5 (0.9-1.2) H 10/06/16 04:20 APTT 31.3 Seconds (25.6-37.1) 10/06/16 04:20 - Head Exam Head Exam: ATRAUMATIC - Eye Exam Eye Exam: Normal appearance - ENT Exam ENT Exam: Normal Exam - Neck Exam Neck Exam: Normal Inspection - Respiratory Exam Respiratory Exam: NORMAL BREATHING PATTERN - Cardiovascular Exam Cardiovascular Exam: REGULAR RHYTHM - GI/Abdominal Exam GI & Abdominal Exam: Soft. absent: Tenderness Assessment and Plan (1) Pancreatitis Assessment & Plan: Clinically better. Less pain and WBC declining. Continue current treatment. Status: Acute
[2016-10-06] MEDS ORDERED: EnalaprilAT 1.25 mg/ml Inj IVP SCH (21:00)
[2016-10-06] MEDS: EnalaprilAT 1.25 mg/ml Inj IV SCH (22:06)
--- NOTE | 2016-10-07 00:54 | PN ---
DATE: CRITICAL CARE CONSULTATION HISTORY OF PRESENT ILLNESS: This is a 76-year-old female with history of chronic recurrent pancreatis, diabetes mellitus type 2, hypertension, hyperlipidemia and periampullary diverticula noted at admission in [facility] admitted with pancreatitis and distended gallbladder with cholelithiasis currently NPO. On IV hydration and analgesics over night not at elevated blood pressure,but not tachycardic this morning alert awake, follows comments appropriate, reports pain is better compared to two days ago. No nausea or vomiting. Abdominal discomfort reduced. Asking for p.o. liquid. No bowel movement. Sleep is not better and would like to go home and take rest. PHYSICAL EXAMINATION: VITAL SIGNS: Temperature 98.7, heart rate 78, blood pressure 171 to 196 over 89 to 107, respiratory rate 24, saturation 98% on VentiMask 50%. Intake 5117 and output 755. Positive balance 4362 with 233 pounds. HEAD, EYES, EARS, NOSE AND THROAT: Pupils are reactive. Conjunctivae pink. Sclerae anicteric. NECK: Supple. CHEST: Bilateral breath sounds diminished in intensity. Clear to auscultation. HEART: Rhythm regular. S1 and S2 normal. ABDOMEN: Bowel sounds present, mildly distended plus no rebound tenderness. EXTREMITIES: No edema. NEUROLOGIC: Nonfocal. CURRENT MEDICATIONS: Colace 100 mg p.o. 3 times daily, Cymbalta 60 mg p.o. at bedtime on hold as n.p.o., enalapril 1.25 mg IV q. 12, Pepcid 20 mg IV q. 12, Dilaudid 1 mg IV q. 3 p.r.n., Accu-Chek with regular insulin coverage, Ringer's lactate at 175 mL per hour, meropenem 1 g IV q. 12, Senokot 8.6 mg p.o. twice daily, trazodone 50 mg p.o. at bedtime on hold, vancomycin 1 g IV q. 12. LABORATORY DATA: WBC 16.6, hemoglobin 12.1, hematocrit 36.9, platelet count 206, neutrophils 91%, lymphocytes 3.8, monocytes 5.5. PT 16, INR 1.5, PTT 31.3. ABG; pH 7.38, pCO2 of 35, pO2 of 100 on FiO2 of 21%. SMA-7: Sodium 140, potassium 3.2, chloride 107, CO2 of 23, blood urea nitrogen 29, creatinine 0.8, glucose 97, calcium 8.2, total bilirubin 0.7, AST 27, ALT 26, alkaline phosphatase 81, Urinalysis;RBC 4 microscopy, WBC 2, bacteria moderate. Microbiology blood culture, coagulase negative staph. Urine culture, no growth reported. Chest x-ray dated 10/05/2016, poor inspiration with low lung volumes, crowded bronchovascular makings, mild basilar atelectasis, possible small bilateral effusion. Abdominal ultrasound 10/04/2016, gallbladder is physiologically distended, intraluminal gallbladder calculi, mild gallbladder wall thickening and/or edema. IMPRESSION: 1. Neurologic: Resolving metabolic/septic encephalopathy. History of psychiatric disorder on trazodone. 2. Pulmonary: Improving oxygenation on reducing oxygen supplement, bibasilar atelectasis with possible small pleural effusion. 3. Cardiac: Hypertension secondary to pain/systemic inflammatory response. No history of home medications for hypertension; however, we will continue enalapril 1.25 mg IV q. 12 to maintain systolic pressure less than 140. 4. Gastrointestinal: Acute cholecystitis, acute on chronic pancreatitis, improving liver enzymes. Appreciate surgery. Followup for cholecystotomy. Seen by interventional radiology. Recommended HIDA scan in progress. Renal stable on IV fluid, Ringer's lactate at 175 mL per hour. 5. Infectious disease: Pancreatitis/biliary cholecystitis, empirically on vancomycin. Blood culture grow coagulase staph negative on vancomycin 6. Hematology: Leukocytosis secondary to systemic inflammatory response syndrome, improving closely, monitor further resolution of leukocytosis. Gastrointestinal and deep venous thrombosis prophylaxis. Continue NPO. Adarsh Ha MD MTDD
[2016-10-07] MEDS ORDERED: Labetalol 5 mg/ml Inj 20ML IVP STA ×2 (02:14→04:53)
[2016-10-07] MEDS: Albuterol-Ipratrop 3 mg / 0.5 (3 ml) UD INH PRN (02:45)
[2016-10-07] MEDS: EnalaprilAT 1.25 mg/ml Inj IV SCH ×4 (03:58→22:38)
[2016-10-07 05:35] LABS: BASO % 0.1 % (0.0-2.0); EOS # 0.1 K/uL (0.0-0.7); EOS % 0.3 % (0.0-4.0); HEMATOCRIT 35.1 % (34.0-47.0); LYMPH # 0.9 K/uL (1.0-4.3); LYMPH % 5.1 % (20.0-40.0); MEAN CELL VOLUME 89.3 fl (81.0-99.0); MEAN CORPUSCULAR HEMOGLOBIN 28.9 pg (27.0-31.0); MEAN CORPUSCULAR HGB CONC 32.4 g/dL (33.0-37.0); MEAN PLATELET VOLUME 8.8 fl (7.2-11.7); MONO # 1.7 K/uL (0.0-0.8); MONO % 9.3 % (0.0-10.0); NEUT # 15.7 K/uL (1.8-7.0); NEUT % 85.2 % (50.0-75.0); WHITE BLOOD COUNT 18.4 K/uL (4.8-10.8)
[2016-10-07 05:37] LABS: BLOOD UREA NITROGEN 18 mg/dl (7-17); CARBON DIOXIDE 26 mmol/L (22-30); CHLORIDE 102 mmol/L (98-107); GFR AFRICAN-AMERICAN > 60; GLUCOSE,RANDOM 100 mg/dL (65-105); POTASSIUM 2.6 MMOL/L (3.6-5.0); SODIUM 140 mmol/l (132-148); TOTAL PROTEIN 6.1 G/DL (6.3-8.2)
[2016-10-07 05:38] LABS: ALB/GLOB RATIO 0.9 (1.0-2.1); ALKALINE PHOSPHATASE 84 U/L (38-126); ALT/SGPT 25 U/L (9-52); AST/SGOT 28 U/L (14-36); BILIRUBIN,TOTAL 0.9 mg/dl (0.2-1.3); LIPASE 340 U/L (23-300)
[2016-10-07] MEDS: Insulin Regular 100 units/ml SC SCH ×4 (07:00→22:00)
--- NOTE | 2016-10-07 07:11 | CP.PCM.PN ---
Subjective - Date & Time of Evaluation Date of Evaluation: 10/07/16 Time of Evaluation: 07:00 - Subjective Subjective: Patient seen and examined bedside. Feeling lousy. Complains of LUQ pain. BP still uncontrolled 172/90 , afebrile, saturating 95-98 % on Venti mask Unable to perform HIDA yesterday due to anxiety WBc 18 k Hgb 11 lipase 340 K 2.6 Mg 1.2 Ph 1.8 Objective - Vital Signs/Intake and Output Vital Signs (last 24 hours): Temp Pulse Resp BP Pulse Ox 98.5 F 71 18 172/90 H 96 10/07/16 04:00 10/07/16 06:00 10/07/16 06:00 10/07/16 06:00 10/07/16 06:00 Intake and Output: 10/07/16 10/07/16 06:59 18:59 Intake Total 2175 Balance 2175 - Medications Medications: Current Medications Albuterol/Ipratropium (Duoneb 3 Mg/0.5 Mg (3 Ml) Ud) 3 ml INH RQ6 PRN PRN Reason: Shortness of Breath Last Admin: 10/07/16 02:45 Dose: 3 ml Docusate Sodium (Colace) 100 mg PO TID [facility] Last Admin: 10/06/16 16:38 Dose: Not Given Duloxetine HCl (Cymbalta) 60 mg PO HS [facility] Last Admin: 10/06/16 22:47 Dose: 60 mg Enalaprilat (Vasotec Iv) 1.25 mg IV Q6 [facility] Last Admin: 10/07/16 03:58 Dose: 1.25 mg Famotidine (Pepcid) 20 mg IVP Q12 [facility] Last Admin: 10/06/16 22:07 Dose: 20 mg Gabapentin (Neurontin) 600 mg PO TID [facility] Last Admin: 10/06/16 16:39 Dose: Not Given Hydromorphone HCl (Dilaudid) 1 mg IVP Q3 PRN PRN Reason: Pain, severe (8-10) Last Admin: 10/07/16 03:57 Dose: 1 mg Vancomycin HCl 1 gm/ Sodium (Chloride) 250 mls @ 166.667 mls/hr IVPB Q12 [facility] Last Admin: 10/06/16 22:04 Dose: 166.667 mls/hr Meropenem 1 gm/ Sodium (Chloride) 100 mls @ 100 mls/hr IVPB Q12 [facility] Last Admin: 10/06/16 22:04 Dose: 100 mls/hr Lactated Ringer's (Lactated Ringer's) 1,000 mls @ 175 mls/hr IV .Q5H43M [facility] Last Admin: 10/06/16 16:38 Dose: 175 mls/hr Potassium Chloride (Potassium Chloride 10 Meq/100 Ml) 100 mls @ 100 mls/hr IVPB Q1 [facility] Stop: 10/07/16 10:59 Insulin Human Regular (Humulin R) 0 units SC ACHS [facility] PRN Reason: Protocol Last Admin: 10/06/16 22:58 Dose: Not Given Metoprolol Tartrate (Lopressor) 12.5 mg PO Q12 [facility] Last Admin: 10/06/16 22:47 Dose: 12.5 mg Sennosides (Senokot Tab) 8.6 mg PO BID [facility] Last Admin: 10/06/16 16:39 Dose: Not Given Trazodone HCl (Desyrel) 50 mg PO HS [facility] Last Admin: 10/06/16 22:47 Dose: 50 mg - Labs Labs: 10/07/16 04:20 10/07/16 04:20 PT 16.0 Seconds (9.8-13.1) H 10/06/16 04:20 INR 1.5 (0.9-1.2) H 10/06/16 04:20 APTT 31.3 Seconds (25.6-37.1) 10/06/16 04:20 - Constitutional Appears: Non-toxic, No Acute Distress, Other (overwight ) - Head Exam Head Exam: ATRAUMATIC, NORMAL INSPECTION, NORMOCEPHALIC - Eye Exam Eye Exam: EOMI, PERRL Pupil Exam: NORMAL ACCOMODATION - ENT Exam ENT Exam: Mucous Membranes Moist, Normal Exam - Neck Exam Neck Exam: Full ROM, Normal Inspection - Respiratory Exam Respiratory Exam: Clear to Ausculation Bilateral, NORMAL BREATHING PATTERN. absent: Rhonchi, Wheezes, Respiratory Distress - Cardiovascular Exam Cardiovascular Exam: REGULAR RHYTHM, RRR, +S1, +S2. absent: JVD - GI/Abdominal Exam GI & Abdominal Exam: Soft, Tenderness (LUQ), Normal Bowel Sounds. absent: Distended, Guarding, Rebound - Rectal Exam Rectal Exam: Deferred - Extremities Exam Extremities Exam: Full ROM, Normal Capillary Refill, Normal Inspection. absent : Calf Tenderness, Pedal Edema - Neurological Exam Neurological Exam: Alert, Awake, CN II-XII Intact, Oriented x3 - Psychiatric Exam Psychiatric exam: Anxious, Flat Affect - Skin Skin Exam: Dry, Intact, Pallor, Warm Assessment and Plan - Assessment and Plan (Free Text) Assessment: 76 years old female with hx of DM, HTN, A Flutter, Pancreatitis came in with a 1 year old intermittent, abdominal pain which has worsened over the past 2 days. It is located below both breast ,the periumbilical region and both lower quadrant, not relieved with her home medications and increases with movement. She refers to headache and vomiting. No diarrhea, dysuria .CT abdomen showed cholelithiasis possible cholecystitis and pancreatitis. Blood test revealed elevated LFT-s , total bilirubin , lipase , WBC 21 k , lactic acid 4.5 initially. She was admitted in ICU with acute gallstone pancreatitis, cholecystitis , started on IVF Iv antibiotics, pain management. Surgery, ID and GI consulted . Patient became hypotensive during admission requiring dopamine drip that is discontinued at present. Clinically improving,afebrile BP elevated 1.Severe Sepsis -- improving secondary to acute gallstone pancreatitis and suspected cholecystitis off dopamine drip Blood cx positive for gram positive cocci x 1 bottle Continue IVF, Meropenem and vancomycin IV No surgical intervention for now as per surgery LFT-s, bilirubin and lipase normalized Started liquid diet Transfer to telemetry 2.Acute gallstone Pancreatitis improving lipase was elevated 9473 and today 340 Continue IVF, pain management GI and surgery on consult started liquid diet 3. Acute Cholecystitis with cholelithiasis on IVF and IV antibiotics surgery on consult no surgical intervention for now patient clinically improving pending for HIDA scan 4. HTN uncontrolled Started Lopressor 12.5 mg po BID and enalapril 1.25 mg IV Q6 5. YASEMIN 2/2 dehydration- improved continue IVF 6. Hyperglycemia HbA1c 6.2 Patient is pre diabetic Continue accuchecks diet 7. Hypokalemia Replace with KCl runs 40 MEQ and Po 40 MEQ repeat BMp in AM 8. Depression and anxiety on xanax ,trazodone, gabapentin and seroquel at home resumed meds 9. Aflutter per history started lopressor 10. Dyslipidemia LDL 140 cholesterol 203 will consider starting statin before discharge 11.Gait instability patient walks with walker at home PT eval 12. Stress ulcer prophylaxis with Pepcid 13. DVT prophylaxis with SCD patient has IVC filter in place INR 1.5
[2016-10-07 07:31] LABS: MAGNESIUM 1.2 MG/DL (1.6-2.3); PHOSPHOROUS 1.8 mg/dl (2.5-4.5)
[2016-10-07] MEDS: Potassium CL 10mEq/100ml 100 ML IVPB SCH ×4 (07:33→15:52)
[2016-10-07] MEDS ORDERED: Magnesium Sulfate 4 gm/100 ml 4 GM/100 ML BAG IVPB ONE (08:02)
[2016-10-07] MEDS ORDERED: Potassium Phosphate 3 mmol/ml Inj IV ONE (08:07)
--- NOTE | 2016-10-07 08:11 | CP.PCM.PN ---
<Modesta Streetery - Last Filed: 10/08/16 06:22> Subjective - Date & Time of Evaluation Date of Evaluation: 10/07/16 Time of Evaluation: 07:15 - Subjective Subjective: General Surgery Progress Note for Dr. Reddy Patient seen and examined at bedside. No acute event overnight. Patient resting in bed comfortably. Yesterday, patient refused HIDA scan. She did not want to do the test because she felt "depressed." Patient reports having a really bad day Thursday. Patient reports abdominal pain and hip pain. Patient has no other complaint at this time. Objective - Vital Signs/Intake and Output Vital Signs (last 24 hours): Temp Pulse Resp BP Pulse Ox 98.5 F 71 18 172/90 H 96 10/07/16 04:00 10/07/16 06:00 10/07/16 06:00 10/07/16 06:00 10/07/16 06:00 Intake and Output: 10/07/16 10/07/16 06:59 18:59 Intake Total 2175 400 Balance 2175 400 - Medications Medications: Current Medications Albuterol/Ipratropium (Duoneb 3 Mg/0.5 Mg (3 Ml) Ud) 3 ml INH RQ6 PRN PRN Reason: Shortness of Breath Last Admin: 10/07/16 02:45 Dose: 3 ml Docusate Sodium (Colace) 100 mg PO TID [facility] Last Admin: 10/06/16 16:38 Dose: Not Given Duloxetine HCl (Cymbalta) 60 mg PO HS [facility] Last Admin: 10/06/16 22:47 Dose: 60 mg Enalaprilat (Vasotec Iv) 1.25 mg IV Q6 [facility] Last Admin: 10/07/16 03:58 Dose: 1.25 mg Famotidine (Pepcid) 20 mg IVP Q12 [facility] Last Admin: 10/06/16 22:07 Dose: 20 mg Gabapentin (Neurontin) 600 mg PO TID [facility] Last Admin: 10/06/16 16:39 Dose: Not Given Hydromorphone HCl (Dilaudid) 1 mg IVP Q3 PRN PRN Reason: Pain, severe (8-10) Last Admin: 10/07/16 07:38 Dose: 1 mg Vancomycin HCl 1 gm/ Sodium (Chloride) 250 mls @ 166.667 mls/hr IVPB Q12 [facility] Last Admin: 10/06/16 22:04 Dose: 166.667 mls/hr Meropenem 1 gm/ Sodium (Chloride) 100 mls @ 100 mls/hr IVPB Q12 [facility] Last Admin: 10/06/16 22:04 Dose: 100 mls/hr Lactated Ringer's (Lactated Ringer's) 1,000 mls @ 175 mls/hr IV .Q5H43M [facility] Last Admin: 10/06/16 16:38 Dose: 175 mls/hr Potassium Chloride (Potassium Chloride 10 Meq/100 Ml) 100 mls @ 100 mls/hr IVPB Q1 [facility] Stop: 10/07/16 10:59 Last Admin: 10/07/16 07:33 Dose: 100 mls/hr Insulin Human Regular (Humulin R) 0 units SC ACHS [facility] PRN Reason: Protocol Last Admin: 10/06/16 22:58 Dose: Not Given Metoprolol Tartrate (Lopressor) 12.5 mg PO Q12 [facility] Last Admin: 10/06/16 22:47 Dose: 12.5 mg Sennosides (Senokot Tab) 8.6 mg PO BID [facility] Last Admin: 10/06/16 16:39 Dose: Not Given Trazodone HCl (Desyrel) 50 mg PO HS [facility] Last Admin: 10/06/16 22:47 Dose: 50 mg - Labs Labs: 10/07/16 04:20 10/07/16 04:20 PT 16.0 Seconds (9.8-13.1) H 10/06/16 04:20 INR 1.5 (0.9-1.2) H 10/06/16 04:20 APTT 31.3 Seconds (25.6-37.1) 10/06/16 04:20 - Constitutional Appears: No Acute Distress - Head Exam Head Exam: ATRAUMATIC, NORMOCEPHALIC - Eye Exam Eye Exam: Normal appearance - ENT Exam ENT Exam: Mucous Membranes Moist - Respiratory Exam Respiratory Exam: NORMAL BREATHING PATTERN - Cardiovascular Exam Cardiovascular Exam: REGULAR RHYTHM - GI/Abdominal Exam GI & Abdominal Exam: Soft, Tenderness (epigastric). absent: Distended, Firm, Guarding, Rigid, Rebound - Extremities Exam Extremities Exam: absent: Calf Tenderness - Neurological Exam Neurological Exam: Alert, Awake - Psychiatric Exam Psychiatric exam: Flat Affect - Skin Skin Exam: Dry, Intact, Normal Color, Warm Assessment and Plan - Assessment and Plan (Free Text) Plan: 76F with abdominal pain and sepsis, possibly secondary to gallstone pancreatitis -NPO -Pain control -IV fluids and IV ABX -f/u GI recommendations -Possible HIDA today -Recommend PICC line and IR cholecystostomy tube if HIDA (+) -Will BLAINE Streeter PGY1 <Kyle Reddy - Last Filed: 10/12/16 19:02> Objective - Vital Signs/Intake and Output Vital Signs (last 24 hours): Temp Pulse Resp BP Pulse Ox 98.8 F 74 20 157/81 H 98 10/12/16 16:10 10/12/16 16:10 10/12/16 16:10 10/12/16 16:10 10/12/16 16:10 Intake and Output: 10/12/16 10/13/16 18:59 06:59 Intake Total 860 Output Total 650 Balance 210 - Medications Medications: Current Medications Acetaminophen (Tylenol 325mg Tab) 650 mg PO Q6 PRN PRN Reason: Fever >100.4 F Last Admin: 10/09/16 17:07 Dose: 650 mg Albuterol/Ipratropium (Duoneb 3 Mg/0.5 Mg (3 Ml) Ud) 3 ml INH RQ6 PRN PRN Reason: Shortness of Breath Last Admin: 10/09/16 05:55 Dose: 3 ml Alprazolam (Xanax) 0.25 mg PO Q12 [facility] Stop: 10/14/16 10:16 Last Admin: 10/12/16 09:23 Dose: Not Given Docusate Sodium (Colace) 100 mg PO TID [facility] Last Admin: 10/12/16 17:07 Dose: Not Given Duloxetine HCl (Cymbalta) 60 mg PO HS [facility] Last Admin: 10/11/16 21:48 Dose: 60 mg Enalapril Maleate (Vasotec) 10 mg PO Q12 [facility] Last Admin: 10/12/16 12:25 Dose: 10 mg Enoxaparin Sodium (Lovenox) 100 mg 1 mg/kg (105 mg) SC Q12H [facility] PRN Reason: Protocol Last Admin: 10/12/16 18:09 Dose: 100 mg Famotidine (Pepcid) 20 mg IVP Q12 [facility] Last Admin: 10/12/16 11:07 Dose: Not Given Gabapentin (Neurontin) 600 mg PO Q8 [facility] Last Admin: 10/12/16 18:10 Dose: 600 mg Hydromorphone HCl (Dilaudid) 1 mg IVP Q3 PRN PRN Reason: Pain, severe (8-10) Last Admin: 10/12/16 18:08 Dose: 1 mg Meropenem 1 gm/ Sodium (Chloride) 100 mls @ 100 mls/hr IVPB Q12 [facility] Last Admin: 10/12/16 12:24 Dose: 100 mls/hr Vancomycin HCl 1 gm/ Sodium (Chloride) 250 mls @ 166.667 mls/hr IVPB Q12H [facility] Last Admin: 10/12/16 12:23 Dose: 166.667 mls/hr Insulin Human Regular (Humulin R) 0 units SC ACHS [facility] PRN Reason: Protocol Last Admin: 10/12/16 17:09 Dose: Not Given Metoprolol Tartrate (Lopressor) 12.5 mg PO Q12 [facility] Last Admin: 10/12/16 12:25 Dose: 12.5 mg Potassium Phos/Sodium Phos (Neutra-Phos) 1 pkt PO TID [facility] Last Admin: 10/12/16 18:10 Dose: 1 pkt Trazodone HCl (Desyrel) 50 mg PO HS [facility] Last Admin: 10/11/16 21:48 Dose: 50 mg - Labs Labs: 10/11/16 06:00 10/11/16 06:00 PT 16.0 Seconds (9.8-13.1) H 10/06/16 04:20 INR 1.5 (0.9-1.2) H 10/06/16 04:20 APTT 31.3 Seconds (25.6-37.1) 10/06/16 04:20 Attending/Attestation - Attestation I have personally seen and examined this patient.: Yes I have fully participated in the care of the patient.: Yes I have reviewed all pertinent clinical information, including history, physical exam and plan: Yes Notes (Text): 10/12/16 19:02 Pt was seen and examined at bedside Agree with above note and assessment Pt with GS pancreatitis, Cholelithiasis HIDA scan: pt is refusing C/w current mx IV antibiotics Plan d.w pt in detail Risk and benefit explained in detail.
[2016-10-07] MEDS ORDERED: Potassium Phosphate 21 MMOLE in Sodium Chloride 0.9% 250 ML IV ONE (08:30)
--- NOTE | 2016-10-07 08:36 | CP.PCM.PN ---
Subjective - Date & Time of Evaluation Date of Evaluation: 10/07/16 Time of Evaluation: 08:33 - Subjective Subjective: Less abdominal pain . Having some left flank pain. Objective - Vital Signs/Intake and Output Vital Signs (last 24 hours): Temp Pulse Resp BP Pulse Ox 97.8 F 71 19 180/76 H 98 10/07/16 08:00 10/07/16 08:00 10/07/16 08:00 10/07/16 08:00 10/07/16 08:00 Intake and Output: 10/07/16 10/07/16 06:59 18:59 Intake Total 2175 400 Balance 2175 400 - Medications Medications: Current Medications Albuterol/Ipratropium (Duoneb 3 Mg/0.5 Mg (3 Ml) Ud) 3 ml INH RQ6 PRN PRN Reason: Shortness of Breath Last Admin: 10/07/16 02:45 Dose: 3 ml Docusate Sodium (Colace) 100 mg PO TID [facility] Last Admin: 10/06/16 16:38 Dose: Not Given Duloxetine HCl (Cymbalta) 60 mg PO HS [facility] Last Admin: 10/06/16 22:47 Dose: 60 mg Enalaprilat (Vasotec Iv) 1.25 mg IV Q6 [facility] Last Admin: 10/07/16 03:58 Dose: 1.25 mg Famotidine (Pepcid) 20 mg IVP Q12 [facility] Last Admin: 10/06/16 22:07 Dose: 20 mg Gabapentin (Neurontin) 600 mg PO TID [facility] Last Admin: 10/06/16 16:39 Dose: Not Given Hydromorphone HCl (Dilaudid) 1 mg IVP Q3 PRN PRN Reason: Pain, severe (8-10) Last Admin: 10/07/16 07:38 Dose: 1 mg Vancomycin HCl 1 gm/ Sodium (Chloride) 250 mls @ 166.667 mls/hr IVPB Q12 [facility] Last Admin: 10/06/16 22:04 Dose: 166.667 mls/hr Meropenem 1 gm/ Sodium (Chloride) 100 mls @ 100 mls/hr IVPB Q12 [facility] Last Admin: 10/06/16 22:04 Dose: 100 mls/hr Lactated Ringer's (Lactated Ringer's) 1,000 mls @ 175 mls/hr IV .Q5H43M [facility] Last Admin: 10/06/16 16:38 Dose: 175 mls/hr Potassium Chloride (Potassium Chloride 10 Meq/100 Ml) 100 mls @ 100 mls/hr IVPB Q1 [facility] Stop: 10/07/16 10:59 Last Admin: 10/07/16 07:33 Dose: 100 mls/hr Magnesium Sulfate (Magnesium Sulfate 4 Gm/100 Ml H2o) 4 gm in 100 mls @ 50 mls/ hr IVPB ONCE ONE PRN Reason: 2 GM/HR Stop: 10/07/16 10:01 Potassium Phosphate 21 mmole/ (Sodium Chloride) 257 mls @ 51.4 mls/hr IV ONCE ONE Stop: 10/07/16 13:29 Insulin Human Regular (Humulin R) 0 units SC ACHS [facility] PRN Reason: Protocol Last Admin: 10/06/16 22:58 Dose: Not Given Metoprolol Tartrate (Lopressor) 12.5 mg PO Q12 [facility] Last Admin: 10/06/16 22:47 Dose: 12.5 mg Sennosides (Senokot Tab) 8.6 mg PO BID [facility] Last Admin: 10/06/16 16:39 Dose: Not Given Trazodone HCl (Desyrel) 50 mg PO HS [facility] Last Admin: 10/06/16 22:47 Dose: 50 mg - Labs Labs: 10/07/16 04:20 10/07/16 04:20 PT 16.0 Seconds (9.8-13.1) H 10/06/16 04:20 INR 1.5 (0.9-1.2) H 10/06/16 04:20 APTT 31.3 Seconds (25.6-37.1) 10/06/16 04:20 - Head Exam Head Exam: ATRAUMATIC - Eye Exam Eye Exam: Normal appearance Pupil Exam: PERRL - Neck Exam Neck Exam: Normal Inspection - Cardiovascular Exam Cardiovascular Exam: REGULAR RHYTHM - GI/Abdominal Exam GI & Abdominal Exam: Soft, Normal Bowel Sounds Assessment and Plan (1) Pancreatitis Assessment & Plan: Clinically better. Lipase coming down. May advance to clears. Now that patient better clinically reevaluate patient for possible cholecystectomy. Status: Acute
[2016-10-07] MEDS ORDERED: Lactated Ringer's 1,000 ML IV SCH (09:23)
[2016-10-07] MEDS: Meropenem 1 GM in Sodium Chloride 0.9% 100 ML IVPB SCH ×2 (09:49→21:24)
[2016-10-07] MEDS: Lactated Ringer's 1,000 ML IV SCH (12:38)
[2016-10-07 13:46] LABS: MAGNESIUM 1.2 MG/DL (1.6-2.3); PHOSPHOROUS 2.1 mg/dl (2.5-4.5)
[2016-10-07] MEDS ORDERED: Magnesium Sulfate 1 gm in D5W 1 GM/100 ML BAG IVPB ONE (13:52)
[2016-10-07] MEDS ORDERED: Potassium Chloride 20 mEq/15 ml LIQ UD PO ONE (14:20)
--- NOTE | 2016-10-07 14:22 | CP.PCM.CON ---
History of Present Illness - History of Present Illness History of Present Illness: psychiatry consult ordered by: dr duckworth reason: psych meds cc: i'm in pain hpi: 76 yo female history of depression. treated at [facility]. pt was septic and in ICU. with cholecystitis. she is currently in pain, but states her mood is stable. she denies any suicidal thoughts. she denies feeling depressed. she does report anxiety regarding her medical problems. sleep is poor. she knows the names and dosages of all her medications. no psychotic symptoms. past psych: treated by dr. renteria in past. takes cymbalta and trazodone as well as xanax. last admission 2 years ago to [facility]. medical: per medical chart/dr. duckworth social: lives in [facility] mse: alert, oriented x 3. mood is anxious. affect constricted. thoughts are logical. denies si/hi. denies a/v hallucinations. fair i/j assessment: major depression recurrent moderate recommendation: restart psychiatric medications return to outpt providers when medically stable. Past Patient History - Infectious Disease Hx of Infectious Diseases: None - Tetanus Immunizations Tetanus Immunization: Unknown - Past Medical History & Family History Past Medical History?: Yes - Past Social History Alcohol: None Drugs: Denies - CARDIAC Hx Cardia Arrhythmia: Yes (Flutter) Hx Hypertension: Yes Hx Peripheral Edema: Yes (+2) - PULMONARY Hx Bronchitis: Yes Hx Chronic Obstructive Pulmonary Disease (COPD): Yes Hx Pneumonia: Yes (5 YRS AGO) - HEENT Hx Cataracts: Yes - RENAL Hx Chronic Kidney Disease: No - ENDOCRINE/METABOLIC Hx Diabetes Mellitus Type 2: Yes - HEMATOLOGICAL/ONCOLOGICAL Hx Anemia: Yes Hx Human Immunodeficiency Virus (HIV): No - INTEGUMENTARY Hx Dermatological Problems: No - MUSCULOSKELETAL/RHEUMATOLOGICAL Hx Arthritis: Yes Hx Fractures: Yes Hx Osteoporosis: Yes - GASTROINTESTINAL Hx Pancreatitis: Yes - GENITOURINARY/GYNECOLOGICAL Hx Sexually Transmitted Disorders: No - PSYCHIATRIC Hx Anxiety: Yes Hx Depression: Yes - SURGICAL HISTORY Hx Carotid Endarterectomy: Yes - ANESTHESIA Hx Anesthesia: Yes Hx Anesthesia Reactions: No Hx Malignant Hyperthermia: No Meds Allergies/Adverse Reactions: Allergies Allergy/AdvReac Type Severity Reaction Status Date / Time Penicillins Allergy RASH Verified 08/02/15 17:48 - Medications Medications: Current Medications Albuterol/Ipratropium (Duoneb 3 Mg/0.5 Mg (3 Ml) Ud) 3 ml INH RQ6 PRN PRN Reason: Shortness of Breath Last Admin: 10/07/16 02:45 Dose: 3 ml Alprazolam (Xanax) 0.25 mg PO Q12 [facility] Stop: 10/14/16 10:16 Last Admin: 10/07/16 12:42 Dose: Not Given Docusate Sodium (Colace) 100 mg PO TID [facility] Last Admin: 10/07/16 12:37 Dose: Not Given Duloxetine HCl (Cymbalta) 60 mg PO HS [facility] Last Admin: 10/06/16 22:47 Dose: 60 mg Enalaprilat (Vasotec Iv) 1.25 mg IV Q6 [facility] Last Admin: 10/07/16 10:12 Dose: 1.25 mg Famotidine (Pepcid) 20 mg IVP Q12 [facility] Last Admin: 10/07/16 09:54 Dose: 20 mg Gabapentin (Neurontin) 600 mg PO TID [facility] Last Admin: 10/07/16 12:39 Dose: 600 mg Hydromorphone HCl (Dilaudid) 1 mg IVP Q3 PRN PRN Reason: Pain, severe (8-10) Last Admin: 10/07/16 07:38 Dose: 1 mg Vancomycin HCl 1 gm/ Sodium (Chloride) 250 mls @ 166.667 mls/hr IVPB Q12 [facility] Last Admin: 10/07/16 10:04 Dose: 166.667 mls/hr Meropenem 1 gm/ Sodium (Chloride) 100 mls @ 100 mls/hr IVPB Q12 [facility] Last Admin: 10/07/16 09:49 Dose: 100 mls/hr Lactated Ringer's (Lactated Ringer's) 1,000 mls @ 100 mls/hr IV .Q10H [facility] Last Admin: 10/07/16 12:38 Dose: 100 mls/hr Magnesium Sulfate/Dextrose (Magnesium Sulfate 1 Gm/100 Ml D5w) 1 gm in 100 mls @ 100 mls/hr IVPB ONCE ONE PRN Reason: 1 GM/HR Stop: 10/07/16 14:51 Potassium Chloride (Potassium Cl 10meq/50ml Sterile Water) 50 mls @ 50 mls/hr IVPB Q1 [facility] Stop: 10/07/16 16:59 Insulin Human Regular (Humulin R) 0 units SC ACHS [facility] PRN Reason: Protocol Last Admin: 10/07/16 12:37 Dose: Not Given Metoprolol Tartrate (Lopressor) 12.5 mg PO Q12 [facility] Last Admin: 10/07/16 09:48 Dose: 12.5 mg Sennosides (Senokot Tab) 8.6 mg PO BID [facility] Last Admin: 10/07/16 10:04 Dose: Not Given Trazodone HCl (Desyrel) 50 mg PO HS [facility] Last Admin: 10/06/16 22:47 Dose: 50 mg Results - Vital Signs Recent Vital Signs: Last Vital Signs Temp 97.7 F 10/07/16 12:00 Pulse 69 10/07/16 12:00 Resp 18 10/07/16 12:00 BP 163/91 H 10/07/16 12:00 Pulse Ox 96 10/07/16 12:00 - Labs Result Diagrams: 10/07/16 04:20 10/07/16 13:27 Labs: Laboratory Results - last 24 hr 10/06/16 10/06/16 10/07/16 16:12 21:15 04:20 WBC 18.4 H RBC 3.93 Hgb 11.4 L Hct 35.1 MCV 89.3 MCH 28.9 MCHC 32.4 L RDW 14.0 Plt Count 213 MPV 8.8 Neut % (Auto) 85.2 H Lymph % (Auto) 5.1 L [place] % (Auto) 9.3 Eos % (Auto) 0.3 Baso % (Auto) 0.1 Neut # 15.7 H Lymph # 0.9 L [place] # 1.7 H Eos # 0.1 Baso # 0.0 Sodium Potassium Chloride Carbon Dioxide Anion Gap BUN Creatinine Est GFR ( Amer) Est GFR (Non-Af Amer) POC Glucose (mg/dL) 85 96 Random Glucose Calcium Phosphorus Magnesium Total Bilirubin AST ALT Alkaline Phosphatase Total Protein Albumin Globulin Albumin/Globulin Ratio Lipase Vancomycin Trough 10/07/16 10/07/16 10/07/16 04:20 04:20 07:20 WBC RBC Hgb Hct MCV MCH MCHC RDW Plt Count MPV Neut % (Auto) Lymph % (Auto) [place] % (Auto) Eos % (Auto) Baso % (Auto) Neut # Lymph # [place] # Eos # Baso # Sodium 140 Potassium 2.6 L Chloride 102 Carbon Dioxide 26 Anion Gap 15 BUN 18 H Creatinine 0.7 Est GFR ( Amer) > 60 Est GFR (Non-Af Amer) > 60 POC Glucose (mg/dL) Random Glucose 100 Calcium 8.0 L Phosphorus 1.8 L Magnesium 1.2 L Total Bilirubin 0.9 AST 28 ALT 25 Alkaline Phosphatase 84 Total Protein 6.1 L Albumin 2.9 L Globulin 3.1 Albumin/Globulin Ratio 0.9 L Lipase 340 H Vancomycin Trough 19.4 H 10/07/16 10/07/16 11:15 13:27 WBC RBC Hgb Hct MCV MCH MCHC RDW Plt Count MPV Neut % (Auto) Lymph % (Auto) [place] % (Auto) Eos % (Auto) Baso % (Auto) Neut # Lymph # [place] # Eos # Baso # Sodium Potassium 3.0 L Chloride Carbon Dioxide Anion Gap BUN Creatinine Est GFR ( Amer) Est GFR (Non-Af Amer) POC Glucose (mg/dL) 93 Random Glucose Calcium Phosphorus 2.1 L Magnesium 1.2 L Total Bilirubin AST ALT Alkaline Phosphatase Total Protein Albumin Globulin Albumin/Globulin Ratio Lipase Vancomycin Trough
[2016-10-07] MEDS ORDERED: Lidocaine 1% Inj (20ml) ONE (14:40)
--- NOTE | 2016-10-07 14:58 | PCM.SURG1 ---
Surgeon's Initial Post Op Note - Surgeon's Notes Surgeon: Christofer Jefferson MD Section Leader Screen Printing: NONE Type of Anesthesia: Local Pre-Operative Diagnosis: Poor venous access Operative Findings: Patent right basilic vein. Post-Operative Diagnosis: Poor venous access Operation Performed: Double lumen picc placement right basilic vein placement 40 cm. Tip in SVC. Specimen/Specimens Removed: None Estimated Blood Loss: EBL {In ML}: 2 Blood Products Given: N/A Drains Used: No Drains Post-Op Condition: Fair Date of Surgery/Procedure: 10/07/16 Time of Surgery/Procedure: 14:55
[2016-10-07] MEDS: Potassium CL 10 MEQ/50 ML 50 ML IVPB SCH ×3 (16:16→18:18)
--- NOTE | 2016-10-07 17:56 | PN ---
CRITICAL CARE PROGRESS NOTE DATE: 10/07/2016 LOCATION: The patient in ICU bed 425. TIME SPENT: 35 minutes. SUBJECTIVE: The patient is seen and examined at the bedside. Events since admission reviewed. Past medical, surgical and social history noted. A 76-year-old female, history of chronic recurrent pancreatitis, diabetes mellitus type 2, hypertension, hyperlipidemia and periampullary diverticula admitted with acute pancreatitis. Staph coagulase negative, staph bacteremia, has been on IV fluids n.p.o. This morning, alert, awake, follows commands appropriate, feels some hungry. Less pain in the abdomen. Complain of being anxious. PHYSICAL EXAMINATION: VITAL SIGNS: Temperature 97.7, heart rate 69; regular, blood pressure 120/63 to 163/91, respiratory rate 18, saturating 96%. Intake 4025, output 600, positive balance 3425. Cumulative balance over the last 4 days 11,200 approximately. Urine output 600 mL. Weight 233 pounds. HEAD, EYES, EARS, NOSE, AND THROAT: Pupils are reactive. Conjunctivae pink. Sclerae anicteric. NECK: Supple. CHEST: Bilateral breath sounds. Clear to auscultation. HEART: Rhythm regular. S1 and S2 normal intensity. No S3, S4 rub or gallop. No audible murmur. ABDOMEN: Bowel sounds present, soft. Mild tenderness in the right upper quadrant. No rebound tenderness. EXTREMITIES: Trace edema. Dorsalis pedis palpable. Equal in intensity. NEUROLOGIC: Nonfocal. CURRENT MEDICATIONS: DuoNeb 3 mL via nebulizer q. 6 hours p.r.n., Xanax 0.25 mg p.o. q. 12, Colace 100 mg p.o. 3 times daily, Cymbalta 60 mg p.o. bedtime., enalapril 1.25 mg IV q. 6, Pepcid 20 mg IV q. 12, Neurontin 600 mg p.o. 3 times daily, hydromorphone, Dilaudid 1 mg IV push q. 3 hours p.r.n., Accu-Chek with regular insulin coverage, meropenem 1 g IV q. 12, Lopressor 12.5 mg p.o. q. 12, Senokot 8.6 mg p.o. b.i.d., trazodone 50 mg p.o. at bedtime, vancomycin 1 g IV q. 12, and meropenem 1 g IV q. 12. LABORATORY DATA: WBC 18.4, hemoglobin 11.4, hematocrit 35.1 and platelet count 213. Neutrophils 85, lymphocytes 5.1, monocytes 9.3. PT 16, INR 1.5, PTT 31.3. ABG; pH 7.38, pCO2 of 35, pO2 of 100, bicarbonate 21.9, oxygen saturation 98.3 on FiO2 of 21%. SMA-7: Sodium 140, potassium 2.6, chloride 102, CO2 of 26, blood urea nitrogen 18, creatinine 0.7, phosphorus 1.8 increased to 2.1, magnesium 1.2. IMPRESSION: 1. Neurologic: Resolving metabolic septic encephalopathy, history of psychiatric disorder in the past on Xanax and trazodone being evaluated by psychiatry consult for optimizing the medications. 2. Pulmonary: Oxygen saturation improved on 2 liters nasal cannula. No evidence of pulmonary congestion or pleural effusion. 3. Cardiac hypertension secondary to pain/systemic inflammatory response. Significant positive fluid balance. We will reduce the IV fluids, continue .enalapril and metoprolol. 3. Gastrointestinal. Acute cholecystitis, acute on chronic pancreatitis, liver enzymes improved. Amylase, lipase trending down. Appreciate Surgery followup. We will obtain HIDA scan if there is no clinical improvement. Hold until the patient is clinically better and the enzymes are also trending down. Reduce IV fluid 100 mL/hour. 4. Infectious disease. Pancreatitis/biliary cholecystitis, empirically on vancomycin and meropenem. 5. Hematology. Leukocytosis secondary to systemic inflammatory response syndrome, hypokalemia and hypomagnesemia being supplement. Adarsh Ha MD cc: MTDStaci
[2016-10-08] MEDS: Albuterol-Ipratrop 3 mg / 0.5 (3 ml) UD INH PRN (05:26)
[2016-10-08] MEDS: EnalaprilAT 1.25 mg/ml Inj IV SCH ×4 (05:46→21:09)
[2016-10-08 06:19] LABS: HEMATOCRIT 35.5 % (34.0-47.0); MEAN CELL VOLUME 89.5 fl (81.0-99.0); MEAN CORPUSCULAR HEMOGLOBIN 29.1 pg (27.0-31.0); MEAN CORPUSCULAR HGB CONC 32.6 g/dL (33.0-37.0); RED CELL DISTRIBUTION WIDTH 13.8 % (11.5-14.5); WHITE BLOOD COUNT 14.9 K/uL (4.8-10.8)
[2016-10-08 06:38] LABS: ALB/GLOB RATIO 0.9 (1.0-2.1); ALKALINE PHOSPHATASE 81 U/L (38-126); ALT/SGPT 29 U/L (9-52); AST/SGOT 24 U/L (14-36); BILIRUBIN,TOTAL 0.8 mg/dl (0.2-1.3); BLOOD UREA NITROGEN 15 mg/dl (7-17); CALCIUM 7.8 mg/dL (8.4-10.2); CARBON DIOXIDE 27 mmol/L (22-30); CHLORIDE 101 mmol/L (98-107); GFR AFRICAN-AMERICAN > 60; GLUCOSE,RANDOM 101 mg/dL (65-105); LIPASE 767 U/L (23-300); MAGNESIUM 1.7 MG/DL (1.6-2.3); PHOSPHOROUS 2.1 mg/dl (2.5-4.5); SODIUM 138 mmol/l (132-148); TOTAL PROTEIN 5.9 G/DL (6.3-8.2)
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
[2016-10-08] MEDS: Lactated Ringer's 1,000 ML IV SCH ×2 (07:41→21:14)
[2016-10-08] MEDS: Meropenem 1 GM in Sodium Chloride 0.9% 100 ML IVPB SCH ×2 (08:41→20:10)
--- NOTE | 2016-10-08 10:39 | CP.PCM.PN ---
Subjective - Date & Time of Evaluation Date of Evaluation: 10/08/16 Time of Evaluation: 12:14 - Subjective Subjective: ID Note- Pt. seen and examined today in ICU. Pt. awake but once again confused and as per pt. she is in and out f confusion. She denies any abd. pain now. s/p PICC line yesterday. Objective - Vital Signs/Intake and Output Vital Signs (last 24 hours): Temp Pulse Resp BP Pulse Ox 98.6 F 82 22 148/87 100 10/08/16 07:44 10/08/16 10:00 10/08/16 10:00 10/08/16 10:00 10/08/16 10:00 Intake and Output: 10/08/16 10/08/16 06:59 18:59 Intake Total 1150 740 Output Total 800 Balance 350 740 - Medications Medications: Current Medications Albuterol/Ipratropium (Duoneb 3 Mg/0.5 Mg (3 Ml) Ud) 3 ml INH RQ6 PRN PRN Reason: Shortness of Breath Last Admin: 10/08/16 05:26 Dose: 3 ml Alprazolam (Xanax) 0.25 mg PO Q12 [facility] Stop: 10/14/16 10:16 Last Admin: 10/08/16 08:49 Dose: 0.25 mg Docusate Sodium (Colace) 100 mg PO TID [facility] Last Admin: 10/07/16 16:18 Dose: Not Given Duloxetine HCl (Cymbalta) 60 mg PO HS [facility] Last Admin: 10/07/16 21:32 Dose: 60 mg Enalaprilat (Vasotec Iv) 1.25 mg IV Q6 [facility] Last Admin: 10/08/16 09:19 Dose: 1.25 mg Famotidine (Pepcid) 20 mg IVP Q12 [facility] Last Admin: 10/08/16 08:49 Dose: 20 mg Gabapentin (Neurontin) 600 mg PO TID [facility] Last Admin: 10/08/16 08:40 Dose: 600 mg Hydromorphone HCl (Dilaudid) 1 mg IVP Q3 PRN PRN Reason: Pain, severe (8-10) Last Admin: 10/08/16 10:28 Dose: 1 mg Vancomycin HCl 1 gm/ Sodium (Chloride) 250 mls @ 166.667 mls/hr IVPB Q12 [facility] Last Admin: 10/08/16 09:16 Dose: 166.667 mls/hr Meropenem 1 gm/ Sodium (Chloride) 100 mls @ 100 mls/hr IVPB Q12 [facility] Last Admin: 10/08/16 08:41 Dose: 100 mls/hr Lactated Ringer's (Lactated Ringer's) 1,000 mls @ 100 mls/hr IV .Q10H [facility] Last Admin: 10/08/16 07:41 Dose: 100 mls/hr Insulin Human Regular (Humulin R) 0 units SC ACHS [facility] PRN Reason: Protocol Last Admin: 10/07/16 22:00 Dose: Not Given Metoprolol Tartrate (Lopressor) 12.5 mg PO Q12 [facility] Last Admin: 10/08/16 08:39 Dose: 12.5 mg Trazodone HCl (Desyrel) 50 mg PO HS [facility] Last Admin: 10/07/16 21:31 Dose: 50 mg - Labs Labs: - Additional Findings Additional findings: Head Exam Head Exam: ATRAUMATIC - Eye Exam Eye Exam: EOMI - Neck Exam Neck Exam: Full ROM - Respiratory Exam Respiratory Exam: NORMAL BREATHING PATTERN Additional comments: good breath sounds b/l - Cardiovascular Exam Cardiovascular Exam: RRR, +S1, +S2 - GI/Abdominal Exam GI & Abdominal Exam: Soft, Normal Bowel Sounds Additional comments: no tenderness to palpation today no guarding no rebound - Extremities Exam Extremities Exam: Normal Inspection - Neurological Exam Neurological Exam: Awake but confused at times Laboratory Results - last 72 hr 10/04/16 10/05/16 10/05/16 06:00 14:49 15:56 WBC RBC Hgb Hct MCV MCH MCHC RDW Plt Count MPV Neut % (Auto) Lymph % (Auto) [place] % (Auto) Eos % (Auto) Baso % (Auto) Neut # Lymph # [place] # Eos # Baso # Neutrophils % (Manual) Band Neutrophils % Lymphocytes % (Manual) Monocytes % (Manual) Platelet Estimate RBC Morphology PT INR APTT pCO2 35 pO2 100 HCO3 21.9 ABG pH 7.38 ABG Total CO2 21.8 L ABG O2 Saturation 98.3 H ABG O2 Content 17.6 ABG Base Excess -3.8 L ABG Hemoglobin 13.1 ABG Carboxyhemoglobin 1.3 POC ABG HHb (Measured) 1.6 ABG Methemoglobin 1.9 ABG O2 Capacity 17.9 Mahesh Test Yes A-a O2 Difference 6.0 Hgb O2 Saturation 95.2 FiO2 21.0 Sodium Potassium Chloride Carbon Dioxide Anion Gap BUN Creatinine Est GFR ( Amer) Est GFR (Non-Af Amer) POC Glucose (mg/dL) 84 Random Glucose Hemoglobin A1c 6.3 Calcium Phosphorus Magnesium Total Bilirubin AST ALT Alkaline Phosphatase Total Protein Albumin Globulin Albumin/Globulin Ratio Lipase Vancomycin Trough 10/05/16 10/06/16 10/06/16 23:03 04:20 04:20 WBC 16.6 H RBC 4.08 Hgb 12.1 Hct 36.9 MCV 90.6 MCH 29.6 MCHC 32.7 L RDW 13.9 Plt Count 206 MPV 9.0 Neut % (Auto) 90.9 H Lymph % (Auto) 3.8 L [place] % (Auto) 5.1 Eos % (Auto) 0.1 Baso % (Auto) 0.1 Neut # 15.1 H Lymph # 0.6 L [place] # 0.8 Eos # 0.0 Baso # 0.0 Neutrophils % (Manual) 87 H Band Neutrophils % 2 Lymphocytes % (Manual) 5 L Monocytes % (Manual) 6 Platelet Estimate Normal RBC Morphology Normal PT INR APTT pCO2 pO2 HCO3 ABG pH ABG Total CO2 ABG O2 Saturation ABG O2 Content ABG Base Excess ABG Hemoglobin ABG Carboxyhemoglobin POC ABG HHb (Measured) ABG Methemoglobin ABG O2 Capacity Mahesh Test A-a O2 Difference Hgb O2 Saturation FiO2 Sodium 140 Potassium 3.2 L Chloride 107 Carbon Dioxide 23 Anion Gap 13 BUN 29 H Creatinine 0.8 Est GFR ( Amer) > 60 Est GFR (Non-Af Amer) > 60 POC Glucose (mg/dL) 77 Random Glucose 98 Hemoglobin A1c Calcium 8.2 L Phosphorus Magnesium Total Bilirubin 0.7 AST 27 ALT 26 Alkaline Phosphatase 81 Total Protein 6.2 L Albumin 3.0 L Globulin 3.2 Albumin/Globulin Ratio 0.9 L Lipase 275 Vancomycin Trough 10/06/16 10/06/16 10/06/16 04:20 04:29 11:18 WBC RBC Hgb Hct MCV MCH MCHC RDW Plt Count MPV Neut % (Auto) Lymph % (Auto) [place] % (Auto) Eos % (Auto) Baso % (Auto) Neut # Lymph # [place] # Eos # Baso # Neutrophils % (Manual) Band Neutrophils % Lymphocytes % (Manual) Monocytes % (Manual) Platelet Estimate RBC Morphology PT 16.0 H INR 1.5 H APTT 31.3 pCO2 pO2 HCO3 ABG pH ABG Total CO2 ABG O2 Saturation ABG O2 Content ABG Base Excess ABG Hemoglobin ABG Carboxyhemoglobin POC ABG HHb (Measured) ABG Methemoglobin ABG O2 Capacity Mahesh Test A-a O2 Difference Hgb O2 Saturation FiO2 Sodium Potassium Chloride Carbon Dioxide Anion Gap BUN Creatinine Est GFR ( Amer) Est GFR (Non-Af Amer) POC Glucose (mg/dL) 97 89 Random Glucose Hemoglobin A1c Calcium Phosphorus Magnesium Total Bilirubin AST ALT Alkaline Phosphatase Total Protein Albumin Globulin Albumin/Globulin Ratio Lipase Vancomycin Trough 10/06/16 10/06/16 10/07/16 16:12 21:15 04:20 WBC 18.4 H RBC 3.93 Hgb 11.4 L Hct 35.1 MCV 89.3 MCH 28.9 MCHC 32.4 L RDW 14.0 Plt Count 213 MPV 8.8 Neut % (Auto) 85.2 H Lymph % (Auto) 5.1 L [place] % (Auto) 9.3 Eos % (Auto) 0.3 Baso % (Auto) 0.1 Neut # 15.7 H Lymph # 0.9 L [place] # 1.7 H Eos # 0.1 Baso # 0.0 Neutrophils % (Manual) Band Neutrophils % Lymphocytes % (Manual) Monocytes % (Manual) Platelet Estimate RBC Morphology PT INR APTT pCO2 pO2 HCO3 ABG pH ABG Total CO2 ABG O2 Saturation ABG O2 Content ABG Base Excess ABG Hemoglobin ABG Carboxyhemoglobin POC ABG HHb (Measured) ABG Methemoglobin ABG O2 Capacity Mahesh Test A-a O2 Difference Hgb O2 Saturation FiO2 Sodium Potassium Chloride Carbon Dioxide Anion Gap BUN Creatinine Est GFR ( Amer) Est GFR (Non-Af Amer) POC Glucose (mg/dL) 85 96 Random Glucose Hemoglobin A1c Calcium Phosphorus Magnesium Total Bilirubin AST ALT Alkaline Phosphatase Total Protein Albumin Globulin Albumin/Globulin Ratio Lipase Vancomycin Trough 10/07/16 10/07/16 10/07/16 04:20 04:20 07:20 WBC RBC Hgb Hct MCV MCH MCHC RDW Plt Count MPV Neut % (Auto) Lymph % (Auto) [place] % (Auto) Eos % (Auto) Baso % (Auto) Neut # Lymph # [place] # Eos # Baso # Neutrophils % (Manual) Band Neutrophils % Lymphocytes % (Manual) Monocytes % (Manual) Platelet Estimate RBC Morphology PT INR APTT pCO2 pO2 HCO3 ABG pH ABG Total CO2 ABG O2 Saturation ABG O2 Content ABG Base Excess ABG Hemoglobin ABG Carboxyhemoglobin POC ABG HHb (Measured) ABG Methemoglobin ABG O2 Capacity Mahesh Test A-a O2 Difference Hgb O2 Saturation FiO2 Sodium 140 Potassium 2.6 L Chloride 102 Carbon Dioxide 26 Anion Gap 15 BUN 18 H Creatinine 0.7 Est GFR ( Amer) > 60 Est GFR (Non-Af Amer) > 60 POC Glucose (mg/dL) Random Glucose 100 Hemoglobin A1c Calcium 8.0 L Phosphorus 1.8 L Magnesium 1.2 L Total Bilirubin 0.9 AST 28 ALT 25 Alkaline Phosphatase 84 Total Protein 6.1 L Albumin 2.9 L Globulin 3.1 Albumin/Globulin Ratio 0.9 L Lipase 340 H Vancomycin Trough 19.4 H 10/07/16 10/07/16 10/07/16 11:15 13:27 15:52 WBC RBC Hgb Hct MCV MCH MCHC RDW Plt Count MPV Neut % (Auto) Lymph % (Auto) [place] % (Auto) Eos % (Auto) Baso % (Auto) Neut # Lymph # [place] # Eos # Baso # Neutrophils % (Manual) Band Neutrophils % Lymphocytes % (Manual) Monocytes % (Manual) Platelet Estimate RBC Morphology PT INR APTT pCO2 pO2 HCO3 ABG pH ABG Total CO2 ABG O2 Saturation ABG O2 Content ABG Base Excess ABG Hemoglobin ABG Carboxyhemoglobin POC ABG HHb (Measured) ABG Methemoglobin ABG O2 Capacity Mahesh Test A-a O2 Difference Hgb O2 Saturation FiO2 Sodium Potassium 3.0 L Chloride Carbon Dioxide Anion Gap BUN Creatinine Est GFR ( Amer) Est GFR (Non-Af Amer) POC Glucose (mg/dL) 93 91 Random Glucose Hemoglobin A1c Calcium Phosphorus 2.1 L Magnesium 1.2 L Total Bilirubin AST ALT Alkaline Phosphatase Total Protein Albumin Globulin Albumin/Globulin Ratio Lipase Vancomycin Trough 10/07/16 10/07/16 10/08/16 20:31 22:09 05:30 WBC 14.9 H RBC 3.96 Hgb 11.5 L Hct 35.5 MCV 89.5 MCH 29.1 MCHC 32.6 L RDW 13.8 Plt Count 198 MPV Neut % (Auto) Lymph % (Auto) [place] % (Auto) Eos % (Auto) Baso % (Auto) Neut # Lymph # [place] # Eos # Baso # Neutrophils % (Manual) Band Neutrophils % Lymphocytes % (Manual) Monocytes % (Manual) Platelet Estimate RBC Morphology PT INR APTT pCO2 pO2 HCO3 ABG pH ABG Total CO2 ABG O2 Saturation ABG O2 Content ABG Base Excess ABG Hemoglobin ABG Carboxyhemoglobin POC ABG HHb (Measured) ABG Methemoglobin ABG O2 Capacity Mahesh Test A-a O2 Difference Hgb O2 Saturation FiO2 Sodium Potassium Chloride Carbon Dioxide Anion Gap BUN Creatinine Est GFR ( Amer) Est GFR (Non-Af Amer) POC Glucose (mg/dL) 100 96 Random Glucose Hemoglobin A1c Calcium Phosphorus Magnesium Total Bilirubin AST ALT Alkaline Phosphatase Total Protein Albumin Globulin Albumin/Globulin Ratio Lipase Vancomycin Trough 10/08/16 10/08/16 10/08/16 05:30 05:39 11:33 WBC RBC Hgb Hct MCV MCH MCHC RDW Plt Count MPV Neut % (Auto) Lymph % (Auto) [place] % (Auto) Eos % (Auto) Baso % (Auto) Neut # Lymph # [place] # Eos # Baso # Neutrophils % (Manual) Band Neutrophils % Lymphocytes % (Manual) Monocytes % (Manual) Platelet Estimate RBC Morphology PT INR APTT pCO2 pO2 HCO3 ABG pH ABG Total CO2 ABG O2 Saturation ABG O2 Content ABG Base Excess ABG Hemoglobin ABG Carboxyhemoglobin POC ABG HHb (Measured) ABG Methemoglobin ABG O2 Capacity Mahesh Test A-a O2 Difference Hgb O2 Saturation FiO2 Sodium 138 Potassium 3.0 L Chloride 101 Carbon Dioxide 27 Anion Gap 13 BUN 15 Creatinine 0.6 L Est GFR ( Amer) > 60 Est GFR (Non-Af Amer) > 60 POC Glucose (mg/dL) 100 111 H Random Glucose 101 Hemoglobin A1c Calcium 7.8 L Phosphorus 2.1 L Magnesium 1.7 Total Bilirubin 0.8 AST 24 ALT 29 Alkaline Phosphatase 81 Total Protein 5.9 L Albumin 2.8 L Globulin 3.1 Albumin/Globulin Ratio 0.9 L Lipase 767 H Vancomycin Trough Microbiology 10/03/16 02:06 Blood-Venous Blood Culture - Preliminary NO GROWTH AFTER 4 DAYS 10/04/16 17:00 Blood-Venous Blood Culture - Preliminary NO GROWTH AFTER 3 DAYS 10/04/16 17:00 Blood-Venous Blood Culture - Preliminary NO GROWTH AFTER 3 DAYS 10/05/16 16:45 Blood-Venous Blood Culture - Preliminary NO GROWTH AFTER 48 HOURS 10/05/16 16:45 Blood-Venous Blood Culture - Preliminary NO GROWTH AFTER 48 HOURS 10/03/16 10:00 Blood-Venous S.aureus & Coag-Neg Staph PNA FISH - Final 10/03/16 10:00 Blood-Venous Blood Culture - Final Coagulase Neg Staphylococcus 10/03/16 10:00 Blood-Venous Gram Stain - Final 10/04/16 15:00 Nose MRSA Culture (Admit) - Final MRSA NOT DETECTED 10/03/16 23:59 Urine Urine Culture - Final No Growth (<1,000 CFU/ML) Assessment and Plan (1) Cholecystitis Status: Deleted (2) Pancreatitis Status: Acute (3) Leukocytosis Status: Acute - Assessment and Plan (Free Text) Assessment: A/P- 76 year old female with multiple medical conditions including DM II, HTN, pancreatitis admitted with worsening abdominal pain and nausea found to have cholelithiasis with cholecystitis and GS pancreatitis with and elevated wbc as well as elevated lipase and LFts and elavted lactate. afebrile leukocytosis trending down. CT abd report noted. abd US- cholelithiasis with ? cholecystitis as per report. CXR- ? left lower lung effusion as per report. blood cx- neg x 1 one blood cx was just reported now as - coag neg staph repeat blood cx- 10/04/2016- neg x 4 TTE- no vegetations as per report read by folder stitcher operator. LFTs have normalized, lipase is normal value now. plan- advise to continue with broad spectrum abx coverage empirically for now to cover for gram neg and anaerobes . hence continue with IV meropenem day #5. continue with IV vanco for coag neg staph bacteremia that was just reported by micro. ( might have been contaminant). keep trough <15. day #5. monitor wbc may get HIDA as per IR note prior to ? cholecystostomy . ICU time 45 min.
[2016-10-08] MEDS: Insulin Regular 100 units/ml SC SCH ×3 (10:41→21:21)
--- NOTE | 2016-10-08 11:03 | CP.PCM.PN ---
Subjective - Date & Time of Evaluation Date of Evaluation: 10/08/16 Time of Evaluation: 12:30 - Subjective Subjective: Patient seen bedside. Does not feel well, with flat affect, confused at times. Complains of LUQ pain Hemodynamically stable, afebrile tolerating liquid diet BP better controlled 148/87 WBc 14.p K Hgb 11 Lipase 767 Objective - Vital Signs/Intake and Output Vital Signs (last 24 hours): Temp Pulse Resp BP Pulse Ox 98.6 F 82 22 148/87 100 10/08/16 07:44 10/08/16 10:00 10/08/16 10:00 10/08/16 10:00 10/08/16 10:00 Intake and Output: 10/08/16 10/08/16 06:59 18:59 Intake Total 1150 740 Output Total 800 Balance 350 740 - Medications Medications: Current Medications Albuterol/Ipratropium (Duoneb 3 Mg/0.5 Mg (3 Ml) Ud) 3 ml INH RQ6 PRN PRN Reason: Shortness of Breath Last Admin: 10/08/16 05:26 Dose: 3 ml Alprazolam (Xanax) 0.25 mg PO Q12 [facility] Stop: 10/14/16 10:16 Last Admin: 10/08/16 08:49 Dose: 0.25 mg Docusate Sodium (Colace) 100 mg PO TID [facility] Last Admin: 10/08/16 10:59 Dose: Not Given Duloxetine HCl (Cymbalta) 60 mg PO HS [facility] Last Admin: 10/07/16 21:32 Dose: 60 mg Enalaprilat (Vasotec Iv) 1.25 mg IV Q6 [facility] Last Admin: 10/08/16 09:19 Dose: 1.25 mg Famotidine (Pepcid) 20 mg IVP Q12 [facility] Last Admin: 10/08/16 08:49 Dose: 20 mg Gabapentin (Neurontin) 600 mg PO TID [facility] Last Admin: 10/08/16 08:40 Dose: 600 mg Hydromorphone HCl (Dilaudid) 1 mg IVP Q3 PRN PRN Reason: Pain, severe (8-10) Last Admin: 10/08/16 10:28 Dose: 1 mg Vancomycin HCl 1 gm/ Sodium (Chloride) 250 mls @ 166.667 mls/hr IVPB Q12 [facility] Last Admin: 10/08/16 09:16 Dose: 166.667 mls/hr Meropenem 1 gm/ Sodium (Chloride) 100 mls @ 100 mls/hr IVPB Q12 [facility] Last Admin: 10/08/16 08:41 Dose: 100 mls/hr Lactated Ringer's (Lactated Ringer's) 1,000 mls @ 100 mls/hr IV .Q10H [facility] Last Admin: 10/08/16 07:41 Dose: 100 mls/hr Insulin Human Regular (Humulin R) 0 units SC ACHS [facility] PRN Reason: Protocol Last Admin: 10/08/16 10:41 Dose: Not Given Metoprolol Tartrate (Lopressor) 12.5 mg PO Q12 [facility] Last Admin: 10/08/16 08:39 Dose: 12.5 mg Trazodone HCl (Desyrel) 50 mg PO HS [facility] Last Admin: 10/07/16 21:31 Dose: 50 mg - Labs Labs: 10/08/16 05:30 10/08/16 05:30 PT 16.0 Seconds (9.8-13.1) H 10/06/16 04:20 INR 1.5 (0.9-1.2) H 10/06/16 04:20 APTT 31.3 Seconds (25.6-37.1) 10/06/16 04:20 - Constitutional Appears: Non-toxic, No Acute Distress, Other (overweight ) - Head Exam Head Exam: ATRAUMATIC, NORMAL INSPECTION, NORMOCEPHALIC - Eye Exam Eye Exam: EOMI, Normal appearance, PERRL Pupil Exam: NORMAL ACCOMODATION - ENT Exam ENT Exam: Mucous Membranes Moist, Normal Exam - Neck Exam Neck Exam: Full ROM, Normal Inspection - Respiratory Exam Respiratory Exam: Clear to Ausculation Bilateral, Respiratory Distress. absent : Rales, Rhonchi, Wheezes - Cardiovascular Exam Cardiovascular Exam: REGULAR RHYTHM, RRR, +S1, +S2. absent: JVD - GI/Abdominal Exam GI & Abdominal Exam: Soft, Normal Bowel Sounds. absent: Guarding, Rigid, Tenderness, Rebound - Rectal Exam Rectal Exam: Deferred - Extremities Exam Extremities Exam: Full ROM, Normal Capillary Refill, Normal Inspection. absent : Pedal Edema - Neurological Exam Neurological Exam: Alert, Awake, CN II-XII Intact - Psychiatric Exam Psychiatric exam: Flat Affect - Skin Skin Exam: Dry, Intact, Warm Assessment and Plan - Assessment and Plan (Free Text) Assessment: 76 years old female with hx of DM, HTN, A Flutter, Pancreatitis came in with a 1 year old intermittent, abdominal pain which has worsened over the past 2 days. It is located below both breast ,the periumbilical region and both lower quadrant, not relieved with her home medications and increases with movement. She refers to headache and vomiting. No diarrhea, dysuria .CT abdomen showed cholelithiasis possible cholecystitis and pancreatitis. Blood test revealed elevated LFT-s , total bilirubin , lipase , WBC 21 k , lactic acid 4.5 initially. She was admitted in ICU with acute gallstone pancreatitis, cholecystitis , started on IVF Iv antibiotics, pain management. Surgery, ID and GI consulted . Patient became hypotensive during admission requiring dopamine drip that is discontinued Clinically improving,afebrile BP better controlled, tolerating liquid diet. Has been on IVF and IV Meropenem and Vanco 1.Severe Sepsis -- improving secondary to acute gallstone pancreatitis and suspected cholecystitis off dopamine drip Blood cx positive for gram positive cocci x 1 bottle Continue IVF, Meropenem and vancomycin IV No surgical intervention for now as per surgery LFT-s, bilirubin and lipase normalized Started liquid diet and tolerating Transfer to telemetry 2.Acute gallstone Pancreatitis improving lipase was elevated 9473 and today 767 with some LUQ pain Continue IVF, pain management GI and surgery on consult continue liquid diet 3. Acute Cholecystitis with cholelithiasis on IVF and IV antibiotics surgery on consult no surgical intervention for now patient clinically improving no need for HIDA scan as per GI Will need to discuss with surgery about potential cholecystectomy now that patient is hemodynamically stable 4. HTN better controlled on Lopressor 12.5 mg po BID and enalapril 1.25 mg IV Q6 5. YASEMIN 2/2 dehydration- improved continue IVF 6. Hyperglycemia HbA1c 6.2 Patient is pre diabetic Continue accuchecks diet 7. Hypokalemia Replace with KCl runs 40 MEQ repeat BMp in AM 8. Depression and anxiety on xanax ,trazodone, gabapentin and seroquel at home resumed meds 9. Aflutter per history on lopressor 10. Dyslipidemia LDL 140 cholesterol 203 will consider starting statin before discharge 11.Gait instability patient walks with walker at home PT eval patient not participating with PT 12. Stress ulcer prophylaxis with Pepcid 13. DVT prophylaxis with SCD patient has IVC filter in place INR 1.5
--- NOTE | 2016-10-08 16:37 | PN ---
DATE: 10/08/2016 LOCATION: The patient is in ICU bed 425. TIME SPENT: 35 minutes. SUBJECTIVE: The patient is seen and examined at the bedside. Events since admission reviewed. Past medical, surgical, and social history noted. Overnight, the patient is noted to be paranoid, seeing little boys with knife outside the room, This morning alert, awake, follows commands, appropriate, no distress noted. Denies chest pain and palpitation. Complaining of mild abdominal discomfort. Maintained n.p.o. for HIDA scan. The patient requesting for" lemon Tea" .. Had bowel movement, no melena noted. No nausea. No vomiting. PHYSICAL EXAMINATION VITAL SIGNS: Temperature 98.6, heart rate 82 regular, blood pressure 148/87, pulse oximetry 100% on 2 L nasal cannula. Intake 2550, output 1650, positive balance 900. HEAD, EYES, EARS, NOSE AND THROAT: Pupils are reactive. Conjunctivae pink. Sclerae white. NECK: Supple. Trachea is central. CHEST: Bilateral breath sounds, diminished in intensity. Clear to auscultation. HEART: Rhythm regular. S1 and S2 normal intensity. No S3 or S4 gallop. No audible murmur. ABDOMEN: Bowel sounds are present, soft, vague mild tenderness. No rebound tenderness. EXTREMITIES: No palpable cord. SKIN: Without rash. NEUROLOGIC: Nonfocal. CURRENT MEDICATIONS: Include DuoNeb 3 mL via nebulizer q. 6 hours p.r.n., Xanax 0.25 mg p.o. q. 12, trazodone 50 mg p.o. at bedtime, Colace 100 mg p.o. 3 times daily, Cymbalta 60 mg p.o. at bedtime., enalapril 1.25 mg IV q. 6, Pepcid 20 mg IV q. 12, Neurontin 600 mg p.o. 3 times daily, Dilaudid 1 mg IV push q. 3 p.r.n. for severe pain, Accu-Chek with regular insulin coverage, Ringer's lactate at 100 mL per hour, meropenem 1 g IV q. 12, Lopressor 12.5 mg p.o. q. 12, and vancomycin 1 g IV q. 12. LABORATORY DATA: WBC 14.9, hemoglobin 11.5, hematocrit 35.5 and platelet count 198. PT 16, INR is 1.5, PTT 31.3. SMA-7: Sodium 138, potassium 3, chloride 101, CO2 of 27, blood urea nitrogen 15, creatinine 0.6, phosphorus 2.1, magnesium 1.7, total bilirubin 0.8, AST 24, ALT 29, alkaline phosphatase 81, total protein 5.9, albumin 2.8, and albumin globulin ratio 0.9. LDL and cholesterol report pending. Lipase 764. Urinalysis; RBC 4, WBC 2. Vanc trough level 19.4. IMPRESSION: 1. Neurology: Resolving metabolic septic encephalopathy. 2. Psychiatry: History of psychiatric disorder. In the past, on Xanax and trazodone. Seen by psychiatry consult. Recommend to continue above medications. 3. Pulmonary: Oxygen saturation improved on 2 liters nasal cannula. No evidence of pulmonary congestion or pericardial effusion. 4. Cardiac: Hypertension resolved, but blood pressure still remains elevated. Currently, on Vasotec and metoprolol, reduce IV fluid as intake is improved. 5. Gastrointestinal. Acute cholecystitis now with the normal liver function test, acute on chronic pancreatitis. The patient's last lipase 340, on clear liquids repeat 8700, closely monitor lipase and continued with the clear liquids. We will schedule for HIDA scan before the surgery. 4. Infectious disease. Pancreatitis/biliary cholecystitis on vancomycin and meropenem. The patient has Infectious Disease followup. 5. Hematology. Leukocytosis secondary to systemic inflammatory response syndrome. 6. Electrolytes imbalance with hypokalemia and hypomagnesemia. Supplement potassium and magnesium. Adarsh Ha MD [email or web address]
[2016-10-09] MEDS: EnalaprilAT 1.25 mg/ml Inj IV SCH (04:23)
[2016-10-09] MEDS: Albuterol-Ipratrop 3 mg / 0.5 (3 ml) UD INH PRN (05:55)
[2016-10-09 07:03] LABS: HEMATOCRIT 35.4 % (34.0-47.0); MEAN CELL VOLUME 89.5 fl (81.0-99.0); MEAN CORPUSCULAR HEMOGLOBIN 29.5 pg (27.0-31.0); MEAN CORPUSCULAR HGB CONC 32.9 g/dL (33.0-37.0); RED CELL DISTRIBUTION WIDTH 13.9 % (11.5-14.5); WHITE BLOOD COUNT 16.3 K/uL (4.8-10.8)
--- NOTE | 2016-10-09 07:09 | CP.PCM.PN ---
Subjective - Date & Time of Evaluation Date of Evaluation: 10/09/16 Time of Evaluation: 07:09 - Subjective Subjective: Pt less confused this morning, pleasant. febrile overnight 101.3, 162/67, 83 95% NC change to PO antihypertensives LUE cool to touch, NV intact, pulses present, however painful B/L DUPLEX art/rosy pending Pt with adequate output, will d/c LR Replete Mg and K+ HD stable NAD Objective - Vital Signs/Intake and Output Vital Signs (last 24 hours): Temp Pulse Resp BP Pulse Ox 101.3 F H 83 21 162/67 H 95 10/09/16 06:00 10/09/16 06:29 10/09/16 06:29 10/09/16 06:29 10/09/16 06:29 Vitals stable and reviewed GEN: obese WDWN, alert, cooperative HEENT: NCAT, PERRL, EOMI Neck: supple, no lymphadenopathy CARDIO: +S1S2, RRR, NO M/R/G LUNG: CTAB, NO W/R/R ABD: soft, NT, ND, no masses, no HSM EXT: no edema, pedal pulses Neuro: AAOx3, generalized weakness Psych: normal mood, normal affect Intake and Output: 10/09/16 10/09/16 06:59 18:59 Intake Total 1110 Output Total 1200 Balance -90 - Medications Medications: Current Medications Acetaminophen (Tylenol 325mg Tab) 650 mg PO Q6 PRN PRN Reason: Fever >100.4 F Last Admin: 10/09/16 05:56 Dose: 650 mg Albuterol/Ipratropium (Duoneb 3 Mg/0.5 Mg (3 Ml) Ud) 3 ml INH RQ6 PRN PRN Reason: Shortness of Breath Last Admin: 10/09/16 05:55 Dose: 3 ml Alprazolam (Xanax) 0.25 mg PO Q12 [facility] Stop: 10/14/16 10:16 Last Admin: 10/08/16 22:40 Dose: 0.25 mg Docusate Sodium (Colace) 100 mg PO TID [facility] Last Admin: 10/08/16 16:24 Dose: Not Given Duloxetine HCl (Cymbalta) 60 mg PO HS [facility] Last Admin: 10/08/16 21:09 Dose: 60 mg Enalaprilat (Vasotec Iv) 1.25 mg IV Q6 [facility] Last Admin: 10/09/16 04:23 Dose: 1.25 mg Famotidine (Pepcid) 20 mg IVP Q12 [facility] Last Admin: 10/08/16 20:11 Dose: 20 mg Gabapentin (Neurontin) 600 mg PO TID [facility] Last Admin: 10/08/16 16:24 Dose: 600 mg Hydromorphone HCl (Dilaudid) 1 mg IVP Q3 PRN PRN Reason: Pain, severe (8-10) Last Admin: 10/09/16 06:01 Dose: 1 mg Meropenem 1 gm/ Sodium (Chloride) 100 mls @ 100 mls/hr IVPB Q12 [facility] Last Admin: 10/08/16 20:10 Dose: 100 mls/hr Lactated Ringer's (Lactated Ringer's) 1,000 mls @ 100 mls/hr IV .Q10H [facility] Last Admin: 10/08/16 21:14 Dose: 100 mls/hr Insulin Human Regular (Humulin R) 0 units SC ACHS [facility] PRN Reason: Protocol Last Admin: 10/08/16 21:21 Dose: Not Given Metoprolol Tartrate (Lopressor) 12.5 mg PO Q12 [facility] Last Admin: 10/08/16 20:11 Dose: 12.5 mg Trazodone HCl (Desyrel) 50 mg PO HS [facility] Last Admin: 10/08/16 21:09 Dose: 50 mg - Labs Labs: 10/09/16 05:00 10/08/16 05:30 PT 16.0 Seconds (9.8-13.1) H 10/06/16 04:20 INR 1.5 (0.9-1.2) H 10/06/16 04:20 APTT 31.3 Seconds (25.6-37.1) 10/06/16 04:20 Assessment and Plan - Assessment and Plan (Free Text) Plan: 76 years old female with hx of DM, HTN, A Flutter, Pancreatitis came in with a 1 year old intermittent, abdominal pain which has worsened over the past 2 days. It is located below both breast ,the periumbilical region and both lower quadrant, not relieved with her home medications and increases with movement. She refers to headache and vomiting. No diarrhea, dysuria .CT abdomen showed cholelithiasis possible cholecystitis and pancreatitis. Blood test revealed elevated LFT-s , total bilirubin , lipase , WBC 21 k , lactic acid 4.5 initially. She was admitted in ICU with acute gallstone pancreatitis, cholecystitis , started on IVF Iv antibiotics, pain management. Surgery, ID and GI consulted . Patient became hypotensive during admission requiring dopamine drip that is discontinued Clinically improving,afebrile BP better controlled, tolerating liquid diet. Has been on IVF and IV Meropenem and Vanco 10/09/16 Pt less confused this morning, pleasant. febrile overnight 101.3, 162/67, 83 95% NC change to PO antihypertensives LUE cool to touch, NV intact, pulses present, however painful B/L DUPLEX art/rosy pending Pt with adequate output, will d/c LR Replete Mg and K+ HD stable NAD 1.Severe Sepsis -- improving secondary to acute gallstone pancreatitis and suspected cholecystitis off dopamine drip Blood cx positive for gram positive cocci x 1 bottle Continue IVF, Meropenem and vancomycin IV No surgical intervention for now as per surgery LFT-s, bilirubin and lipase normalized Started liquid diet and tolerating Transfer to telemetry 2.Acute gallstone Pancreatitis improving lipase was elevated 9473 and today 767 with some LUQ pain Continue IVF, pain management GI and surgery on consult - surgery signed off, pt to follow up with surgery as outpatient for cholecystectomy continue liquid diet 3. Acute Cholecystitis with cholelithiasis on IVF and IV antibiotics surgery on consult no surgical intervention for now patient clinically improving no need for HIDA scan as per GI Will need to discuss with surgery about potential cholecystectomy now that patient is hemodynamically stable 4. HTN better controlled on Lopressor 12.5 mg po BID and enalapril 1.25 mg IV Q6 5. YASEMIN 2/2 dehydration- improved discontinue IVF 6. Hyperglycemia HbA1c 6.2 Patient is pre diabetic Continue accuchecks diet 7. Hypokalemia Replace with KCl runs 40 MEQ and 40 po today check mag replete mag repeat BMp in AM 8. Depression and anxiety on xanax ,trazodone, gabapentin and seroquel at home resumed meds 9. Aflutter per history on lopressor 10. Dyslipidemia LDL 140 cholesterol 203 will consider starting statin before discharge 11.Gait instability patient walks with walker at home PT eval patient not participating with PT 12. Stress ulcer prophylaxis with Pepcid 13. DVT prophylaxis with SCD patient has IVC filter in place INR 1.5 14. LUE PAIN LUE cool to touch, painful will order dopplers art/rosy pulses intact
[2016-10-09 07:19] LABS: ALB/GLOB RATIO 0.9 (1.0-2.1); ALKALINE PHOSPHATASE 76 U/L (38-126); ALT/SGPT 28 U/L (9-52); AST/SGOT 20 U/L (14-36); BILIRUBIN,TOTAL 0.8 mg/dl (0.2-1.3); BLOOD UREA NITROGEN 11 mg/dl (7-17); CALCIUM 7.8 mg/dL (8.4-10.2); CARBON DIOXIDE 31 mmol/L (22-30); CHLORIDE 97 mmol/L (98-107); GFR AFRICAN-AMERICAN > 60; GLUCOSE,RANDOM 105 mg/dL (65-105); POTASSIUM 2.8 MMOL/L (3.6-5.0); SODIUM 136 mmol/l (132-148); TOTAL PROTEIN 5.9 G/DL (6.3-8.2)
[2016-10-09] MEDS: Insulin Regular 100 units/ml SC SCH ×5 (08:31→23:00)
[2016-10-09] MEDS: Meropenem 1 GM in Sodium Chloride 0.9% 100 ML IVPB SCH ×2 (08:34→21:04)
[2016-10-09] MEDS ORDERED: Potassium CL 10mEq/100ml 100 ML IVPB ONE (09:00)
[2016-10-09] MEDS ORDERED: Magnesium Sulfate 2 gm/50 ml 2 GM/50 ML BAG IVPB ONE (09:00)
[2016-10-09] MEDS ORDERED: Potassium Chloride 20 mEq ER Tab PO ONE (09:15)
[2016-10-09] MEDS: Potassium CL 10mEq/100ml 100 ML IVPB SCH ×3 (10:16→11:56)
--- NOTE | 2016-10-09 16:24 | US ---
PROCEDURE: Bilateral upper extremity Doppler dated 10/09/2016 HISTORY: Upper extremity COMPARISON: No prior study available for comparison TECHNIQUE: Duplex interrogation of the deep veins of right and left upper extremities (including internal jugular veins, subclavian, axillary, brachial, basilic cephalic veins) performed. FINDINGS: The current study reveals in situ PICC line within the basilic vein which also is associated with the surrounding thrombus -DVT. The remaining deep veins of right deep veins of the left upper extremity opaque no evidence of additional DVT. IMPRESSION: In situ right-sided PICC line with at thrombus/DVT in the right basilic vein surrounding the PICC line. Note that Dr. Ha informed these findings at 4:17 p.m. with written down and back verification. . Note the remaining deep veins of the right upper extremity and wall of the visualized veins left upper extremity are patent.
[2016-10-09] MEDS: Enoxaparin 100 mg Syringe SC SCH (17:53)
--- NOTE | 2016-10-10 04:28 | PN ---
CRITICAL CARE PROGRESS NOTE DATE: 10/09/2016 The patient in ICU, bed 425. TIME SPENT: 35 minutes. SUBJECTIVE: The patient is seen and examined at the bedside. Events since admission reviewed. Past medical, surgical, and social history noted. Overnight, the patient is more wakeful, pleasant, less confused, tolerating clear liquids, complaining of mild right upper quadrant pain. No nausea or vomiting. Had bowel movement. No melena. No dysuria. Swelling of the left upper extremity. PHYSICAL EXAMINATION: VITAL SIGNS: Temperature 99.2, heart rate 72 to 76, respiratory rate 16 to 17, blood pressure 135-142/62-71 and saturating 98% on oxygen 2 L nasal cannula. Intake 3300 and output 1900, positive 1400. Weight 232 pounds. HEAD, EYES, EARS, NOSE AND THROAT: Sclerae anicteric. Conjunctivae pink. NECK: Supple. CHEST: Bilateral breath sounds. Clear to auscultation. HEART: Rhythm regular. S1 and S2 normal. No audible murmur. ABDOMEN: Bowel sounds present, soft, mildly tenderness in right upper quadrant. No rebound or tenderness. EXTREMITIES: Erythema with edema, left upper extremity. NEUROLOGIC: Nonfocal. LABORATORY DATA: WBC 16.0, hemoglobin 11.6, hematocrit 35.4 and platelet count 213. PT 16, INR 1.5, and PTT 31.3. SMA-7; sodium 136, potassium 2.8, chloride is 97, CO2 of 31, blood urea nitrogen 11, creatinine 0.5, random glucose 105 and calcium 7.8. Total bilirubin 0.8. AST 20, ALT 28, alkaline phosphatase 76, total protein 5.9 and albumin 2.8. Urinalysis; RBC 4, microscopic WBC 2. Vancomycin trough level 10.2. Microbiology; blood culture coagulase negative Staphylococcus aureus. IMPRESSION: 1. Neurology: Alert, awake and oriented to name, place and time, less confused. 2. History of anxiety and depression, on Xanax and trazodone, currently on above medication seen by psychiatry consult. Does not appear to be suicidal or confused. 3. Pulmonary: Oxygen saturation improved on 2 L nasal cannula. No evidence of pulmonary congestion or pericardial effusion or pleural effusion. 4. Cardiac hypertension, resolved, better controlled p.o. antihypertensive medications. Continue metoprolol and Vasotec. 5. Gastrointestinal: Acute cholecystitis, resolved. Acute pancreatitis. Noted to have increasing white count, considering about infection and/or phlegmon in the pancreas, noted to have temperature last night, if continues to be afebrile with an increasing in white count may need CT abdomen to access the phlegmon and/or infection in the pancreas. 6. Infectious disease: Pancreatitis/biliary cholecystitis on vancomycin and meropenem. Vancomycin trough level in acceptable range. 7. Hematology: Leukocytosis with febrile. Suspect as systemic inflammatory response/infection in the inflamed pancreas. Consider CT abdomen if fever and leukocytosis persist. 8. Electrolyte imbalance with hypokalemia, hypomagnesemia; supplement potassium and magnesium. Continue clear liquids as tolerated. Follow lipase. Adarsh Ha MD
[2016-10-10 05:32] LABS: BASO # 0.1 K/uL (0.0-0.2); BASO % 0.4 % (0.0-2.0); EOS # 0.3 K/uL (0.0-0.7); EOS % 2.1 % (0.0-4.0); HEMATOCRIT 34.8 % (34.0-47.0); LYMPH # 1.5 K/uL (1.0-4.3); LYMPH % 10.3 % (20.0-40.0); MEAN CELL VOLUME 89.4 fl (81.0-99.0); MEAN CORPUSCULAR HEMOGLOBIN 29.3 pg (27.0-31.0); MEAN CORPUSCULAR HGB CONC 32.8 g/dL (33.0-37.0); MEAN PLATELET VOLUME 8.6 fl (7.2-11.7); MONO % 14.4 % (0.0-10.0); NEUT # 10.3 K/uL (1.8-7.0); NEUT % 72.8 % (50.0-75.0); RED CELL DISTRIBUTION WIDTH 13.8 % (11.5-14.5); WHITE BLOOD COUNT 14.1 K/uL (4.8-10.8)
[2016-10-10 05:35] LABS: ALB/GLOB RATIO 0.9 (1.0-2.1); ALKALINE PHOSPHATASE 91 U/L (38-126); ALT/SGPT 29 U/L (9-52); AST/SGOT 36 U/L (14-36); BILIRUBIN,TOTAL 0.8 mg/dl (0.2-1.3); BLOOD UREA NITROGEN 9 mg/dl (7-17); CARBON DIOXIDE 34 mmol/L (22-30); CHLORIDE 97 mmol/L (98-107); GFR AFRICAN-AMERICAN > 60; GLUCOSE,RANDOM 118 mg/dL (65-105); LIPASE 791 U/L (23-300); MAGNESIUM 1.7 MG/DL (1.6-2.3); PHOSPHOROUS 2.2 mg/dl (2.5-4.5); POTASSIUM 2.9 MMOL/L (3.6-5.0); SODIUM 136 mmol/l (132-148); TOTAL PROTEIN 5.9 G/DL (6.3-8.2)
[2016-10-10] MEDS: Enoxaparin 100 mg Syringe SC SCH ×2 (06:11→17:33)
[2016-10-10] MEDS: Insulin Regular 100 units/ml SC SCH ×4 (06:43→22:10)
[2016-10-10] MEDS: Potassium CL 10 MEQ/50 ML 50 ML IVPB SCH ×4 (07:21→10:12)
[2016-10-10] MEDS ORDERED: Potassium Chloride 20 mEq/15 ml LIQ UD PO ONE (07:28)
[2016-10-10] MEDS ORDERED: Magnesium Sulfate 2 gm/50 ml 2 GM/50 ML BAG IVPB ONE (07:28)
[2016-10-10] MEDS: Meropenem 1 GM in Sodium Chloride 0.9% 100 ML IVPB SCH ×2 (08:47→22:44)
[2016-10-10] MEDS: Potassium & Sodium Phosphate PO SCH ×5 (09:26→17:34)
--- NOTE | 2016-10-10 09:32 | CP.PCM.PN ---
Subjective - Date & Time of Evaluation Date of Evaluation: 10/10/16 Time of Evaluation: 09:29 - Subjective Subjective: Patient awake and alert with just mild abdominal pain. Objective - Vital Signs/Intake and Output Vital Signs (last 24 hours): Temp Pulse Resp BP Pulse Ox 99.0 F 81 36 H 145/73 98 10/10/16 08:00 10/10/16 08:00 10/10/16 08:00 10/10/16 08:00 10/10/16 08:00 Intake and Output: 10/10/16 10/10/16 06:59 18:59 Intake Total 333 Output Total 1000 Balance -667 - Medications Medications: Current Medications Acetaminophen (Tylenol 325mg Tab) 650 mg PO Q6 PRN PRN Reason: Fever >100.4 F Last Admin: 10/09/16 17:07 Dose: 650 mg Albuterol/Ipratropium (Duoneb 3 Mg/0.5 Mg (3 Ml) Ud) 3 ml INH RQ6 PRN PRN Reason: Shortness of Breath Last Admin: 10/09/16 05:55 Dose: 3 ml Alprazolam (Xanax) 0.25 mg PO Q12 [facility] Stop: 10/14/16 10:16 Last Admin: 10/10/16 08:47 Dose: 0.25 mg Docusate Sodium (Colace) 100 mg PO TID [facility] Last Admin: 10/09/16 16:28 Dose: Not Given Duloxetine HCl (Cymbalta) 60 mg PO HS [facility] Last Admin: 10/09/16 21:02 Dose: 60 mg Enalapril Maleate (Vasotec) 10 mg PO Q12 [facility] Last Admin: 10/10/16 08:45 Dose: 10 mg Enoxaparin Sodium (Lovenox) 100 mg 1 mg/kg (105 mg) SC Q12H [facility] PRN Reason: Protocol Last Admin: 10/10/16 06:11 Dose: 100 mg Famotidine (Pepcid) 20 mg IVP Q12 [facility] Last Admin: 10/10/16 08:47 Dose: 20 mg Gabapentin (Neurontin) 600 mg PO TID [facility] Last Admin: 10/10/16 08:45 Dose: 600 mg Hydromorphone HCl (Dilaudid) 1 mg IVP Q3 PRN PRN Reason: Pain, severe (8-10) Last Admin: 10/10/16 09:23 Dose: 1 mg Meropenem 1 gm/ Sodium (Chloride) 100 mls @ 100 mls/hr IVPB Q12 [facility] Last Admin: 10/10/16 08:47 Dose: 100 mls/hr Potassium Chloride (Potassium Cl 10meq/50ml Sterile Water) 50 mls @ 50 mls/hr IVPB Q1 [facility] Stop: 10/10/16 10:59 Last Admin: 10/10/16 09:26 Dose: 50 mls/hr Vancomycin HCl 1 gm/ Sodium (Chloride) 250 mls @ 166.667 mls/hr IVPB Q12H [facility] Insulin Human Regular (Humulin R) 0 units SC ACHS [facility] PRN Reason: Protocol Last Admin: 10/10/16 06:43 Dose: Not Given Metoprolol Tartrate (Lopressor) 12.5 mg PO Q12 [facility] Last Admin: 10/10/16 08:44 Dose: 12.5 mg Potassium Phos/Sodium Phos (Neutra-Phos) 1 pkt PO TID [facility] Trazodone HCl (Desyrel) 50 mg PO HS [facility] Last Admin: 10/09/16 21:03 Dose: 50 mg - Labs Labs: 10/10/16 04:20 10/10/16 04:20 PT 16.0 Seconds (9.8-13.1) H 10/06/16 04:20 INR 1.5 (0.9-1.2) H 10/06/16 04:20 APTT 31.3 Seconds (25.6-37.1) 10/06/16 04:20 - Head Exam Head Exam: ATRAUMATIC - Eye Exam Eye Exam: Normal appearance - ENT Exam ENT Exam: Normal Oropharynx - Neck Exam Neck Exam: Full ROM - Cardiovascular Exam Cardiovascular Exam: REGULAR RHYTHM - GI/Abdominal Exam GI & Abdominal Exam: Soft. absent: Tenderness Assessment and Plan (1) Pancreatitis Assessment & Plan: Clinically patient doing well and tolerating liquids well. Lipase still over 700 but may advance diet as long as she clinically tolerates it. Status: Acute
--- NOTE | 2016-10-10 10:31 | CP.PCM.PN ---
Subjective - Date & Time of Evaluation Date of Evaluation: 10/10/16 Time of Evaluation: 10:30 - Subjective Subjective: confusion improving this morning no complaints no acute events overnight HD Stable, afebrile 137/72 80 12 97% 2 L NC WBC cont elevated 14.1, improved from yesterday 16.3 BC neg prelim from 10/09 LOW K, Mg, Phos, all repleted today patient family wishes to take patient home eventually TRANSFER TO TELE Objective - Vital Signs/Intake and Output Vital Signs (last 24 hours): Temp Pulse Resp BP Pulse Ox 99.0 F 81 36 H 145/73 98 10/10/16 08:00 10/10/16 08:00 10/10/16 08:00 10/10/16 08:00 10/10/16 08:00 GEN: WDWN, ALERT, COOPERATIVE OBESE LESS CONFUSED HEENT: NCAT, PERRL, EOMI HEART: +S1+S2, RRR NO MRG LUNG: CTAB, NO WRR ABD: SOFT BSX4 NT ND NO HSM NO MASS EXT: RUE COOL, PULSES INTACT AND EQUAL NEURO: AA0X3, STRENGTH AND SENSATION EQUAL AND BILATERAL SKIN: WARM DRY PSYCH: NORMAL MOOD NORMAL AFFECT Intake and Output: 10/10/16 10/10/16 06:59 18:59 Intake Total 333 Output Total 1000 Balance -667 - Medications Medications: Current Medications Acetaminophen (Tylenol 325mg Tab) 650 mg PO Q6 PRN PRN Reason: Fever >100.4 F Last Admin: 10/09/16 17:07 Dose: 650 mg Albuterol/Ipratropium (Duoneb 3 Mg/0.5 Mg (3 Ml) Ud) 3 ml INH RQ6 PRN PRN Reason: Shortness of Breath Last Admin: 10/09/16 05:55 Dose: 3 ml Alprazolam (Xanax) 0.25 mg PO Q12 [facility] Stop: 10/14/16 10:16 Last Admin: 10/10/16 08:47 Dose: 0.25 mg Docusate Sodium (Colace) 100 mg PO TID [facility] Last Admin: 10/10/16 10:11 Dose: Not Given Duloxetine HCl (Cymbalta) 60 mg PO HS [facility] Last Admin: 10/09/16 21:02 Dose: 60 mg Enalapril Maleate (Vasotec) 10 mg PO Q12 [facility] Last Admin: 10/10/16 08:45 Dose: 10 mg Enoxaparin Sodium (Lovenox) 100 mg 1 mg/kg (105 mg) SC Q12H [facility] PRN Reason: Protocol Last Admin: 10/10/16 06:11 Dose: 100 mg Famotidine (Pepcid) 20 mg IVP Q12 [facility] Last Admin: 10/10/16 08:47 Dose: 20 mg Gabapentin (Neurontin) 600 mg PO TID [facility] Last Admin: 10/10/16 08:45 Dose: 600 mg Hydromorphone HCl (Dilaudid) 1 mg IVP Q3 PRN PRN Reason: Pain, severe (8-10) Last Admin: 10/10/16 09:23 Dose: 1 mg Meropenem 1 gm/ Sodium (Chloride) 100 mls @ 100 mls/hr IVPB Q12 [facility] Last Admin: 10/10/16 08:47 Dose: 100 mls/hr Potassium Chloride (Potassium Cl 10meq/50ml Sterile Water) 50 mls @ 50 mls/hr IVPB Q1 [facility] Stop: 10/10/16 10:59 Last Admin: 10/10/16 10:12 Dose: 50 mls/hr Vancomycin HCl 1 gm/ Sodium (Chloride) 250 mls @ 166.667 mls/hr IVPB Q12H [facility] Last Admin: 10/10/16 10:13 Dose: 166.667 mls/hr Insulin Human Regular (Humulin R) 0 units SC ACHS [facility] PRN Reason: Protocol Last Admin: 10/10/16 06:43 Dose: Not Given Metoprolol Tartrate (Lopressor) 12.5 mg PO Q12 [facility] Last Admin: 10/10/16 08:44 Dose: 12.5 mg Potassium Phos/Sodium Phos (Neutra-Phos) 1 pkt PO TID [facility] Trazodone HCl (Desyrel) 50 mg PO HS [facility] Last Admin: 10/09/16 21:03 Dose: 50 mg - Labs Labs: 10/10/16 04:20 10/10/16 04:20 PT 16.0 Seconds (9.8-13.1) H 10/06/16 04:20 INR 1.5 (0.9-1.2) H 10/06/16 04:20 APTT 31.3 Seconds (25.6-37.1) 10/06/16 04:20 Assessment and Plan - Assessment and Plan (Free Text) Plan: 76 years old female with hx of DM, HTN, A Flutter, Pancreatitis came in with a 1 year old intermittent, abdominal pain which has worsened over the past 2 days. It is located below both breast ,the periumbilical region and both lower quadrant, not relieved with her home medications and increases with movement. She refers to headache and vomiting. No diarrhea, dysuria .CT abdomen showed cholelithiasis possible cholecystitis and pancreatitis. Blood test revealed elevated LFT-s , total bilirubin , lipase , WBC 21 k , lactic acid 4.5 initially. She was admitted in ICU with acute gallstone pancreatitis, cholecystitis , started on IVF Iv antibiotics, pain management. Surgery, ID and GI consulted . Patient became hypotensive during admission requiring dopamine drip that is discontinued Clinically improving,afebrile BP better controlled, tolerating liquid diet. Has been on IVF and IV Meropenem and Vanco 10/09/16 changed to PO antihypertensives RUE thrombus found in basilic vein (superficial), discussed with interventional radiology. Anticoagulate patient with Lovenox FULL DOSE, and will monitor. May change PICC over to L side, however will not D/C R sided PICC until L is placed. d/c LR Repleted Mg and K+ 10/10/16 confusion improving this morning afebrile 137/72 80 12 97% 2 L NC WBC cont elevated 14.1, improved from yesterday 16.3 BC neg prelim from 10/09 LOW K, Mg, Phos, all repleted today patient family wishes to take patient home eventually TRANSFER TO TELE, ORDERED 10/08 1.Severe Sepsis -- improving secondary to acute gallstone pancreatitis and suspected cholecystitis off dopamine drip Blood cx positive for gram positive cocci x 1 bottle Continue IVF, Meropenem and vancomycin IV No surgical intervention for now as per surgery LFT-s, bilirubin and lipase normalized Started liquid diet and tolerating Transfer to telemetry 2.Acute gallstone Pancreatitis improving Continue IVF, pain management GI and surgery on consult - surgery signed off, pt to follow up with surgery as outpatient for cholecystectomy continue liquid diet 3. Acute Cholecystitis with cholelithiasis on IVF and IV antibiotics surgery on consult no surgical intervention for now patient clinically improving no need for HIDA scan as per GI Will need to discuss with surgery about potential cholecystectomy now that patient is hemodynamically stable 4. HTN better controlled on Lopressor 12.5 mg po BID and enalapril 1.25 mg IV Q6 5. YASEMIN 2/2 dehydration- improved discontinue IVF 6. Hyperglycemia HbA1c 6.2 Patient is pre diabetic Continue accuchecks diet 7. Hypokalemia Replace with KCl runs 40 MEQ and 40 po today check mag replete mag repeat BMp in AM 8. Depression and anxiety on xanax ,trazodone, gabapentin and seroquel at home resumed meds 9. Aflutter per history on lopressor 10. Dyslipidemia LDL 140 cholesterol 203 will consider starting statin before discharge 11.Gait instability patient walks with walker at home PT eval patient not participating with PT 12. Stress ulcer prophylaxis with Pepcid 13. DVT prophylaxis with SCD patient has IVC filter in place INR 1.5 14. LUE PAIN LUE cool to touch, painful pulses intact RUE thrombus found in basilic vein (superficial), discussed with interventional radiology. Anticoagulate patient with Lovenox, and will monitor. May change PICC over to L side, however will not D/C R sided PICC until L is placed.
--- NOTE | 2016-10-10 16:10 | CP.PCM.PN ---
Subjective - Date & Time of Evaluation Date of Evaluation: 10/10/16 Time of Evaluation: 16:10 - Subjective Subjective: ID Note- Pt. seen paige myers in tele unit today. afebrile not confused today. Objective - Vital Signs/Intake and Output Vital Signs (last 24 hours): Temp Pulse Resp BP Pulse Ox 98.8 F 79 23 137/91 H 97 10/10/16 12:00 10/10/16 12:00 10/10/16 12:00 10/10/16 12:00 10/10/16 12:00 Intake and Output: 10/10/16 10/10/16 06:59 18:59 Intake Total 333 790 Output Total 1000 Balance -667 790 - Medications Medications: Current Medications Acetaminophen (Tylenol 325mg Tab) 650 mg PO Q6 PRN PRN Reason: Fever >100.4 F Last Admin: 10/09/16 17:07 Dose: 650 mg Albuterol/Ipratropium (Duoneb 3 Mg/0.5 Mg (3 Ml) Ud) 3 ml INH RQ6 PRN PRN Reason: Shortness of Breath Last Admin: 10/09/16 05:55 Dose: 3 ml Alprazolam (Xanax) 0.25 mg PO Q12 [facility] Stop: 10/14/16 10:16 Last Admin: 10/10/16 08:47 Dose: 0.25 mg Docusate Sodium (Colace) 100 mg PO TID [facility] Last Admin: 10/10/16 13:09 Dose: Not Given Duloxetine HCl (Cymbalta) 60 mg PO HS [facility] Last Admin: 10/09/16 21:02 Dose: 60 mg Enalapril Maleate (Vasotec) 10 mg PO Q12 [facility] Last Admin: 10/10/16 08:45 Dose: 10 mg Enoxaparin Sodium (Lovenox) 100 mg 1 mg/kg (105 mg) SC Q12H PATTI PRN Reason: Protocol Last Admin: 10/10/16 06:11 Dose: 100 mg Famotidine (Pepcid) 20 mg IVP Q12 [facility]TI Last Admin: 10/10/16 08:47 Dose: 20 mg Gabapentin (Neurontin) 600 mg PO Q8 [facility]TI Hydromorphone HCl (Dilaudid) 1 mg IVP Q3 PRN PRN Reason: Pain, severe (8-10) Last Admin: 10/10/16 13:18 Dose: 1 mg Meropenem 1 gm/ Sodium (Chloride) 100 mls @ 100 mls/hr IVPB Q12 [facility] Last Admin: 10/10/16 08:47 Dose: 100 mls/hr Vancomycin HCl 1 gm/ Sodium (Chloride) 250 mls @ 166.667 mls/hr IVPB Q12H [facility] Last Admin: 10/10/16 10:13 Dose: 166.667 mls/hr Insulin Human Regular (Humulin R) 0 units SC ACHS [facility] PRN Reason: Protocol Last Admin: 10/10/16 11:57 Dose: Not Given Metoprolol Tartrate (Lopressor) 12.5 mg PO Q12 [facility] Last Admin: 10/10/16 08:44 Dose: 12.5 mg Potassium Phos/Sodium Phos (Neutra-Phos) 1 pkt PO TID [facility] Last Admin: 10/10/16 13:19 Dose: Not Given Trazodone HCl (Desyrel) 50 mg PO HS [facility] Last Admin: 10/09/16 21:03 Dose: 50 mg - Labs Labs: - Additional Findings Additional findings: Head Exam Head Exam: ATRAUMATIC - Eye Exam Eye Exam: EOMI - Neck Exam Neck Exam: Full ROM - Respiratory Exam Respiratory Exam: NORMAL BREATHING PATTERN Additional comments: good breath sounds b/l - Cardiovascular Exam Cardiovascular Exam: RRR, +S1, +S2 - GI/Abdominal Exam GI & Abdominal Exam: Soft, Normal Bowel Sounds Additional comments: no tenderness to palpation today no guarding no rebound - Extremities Exam Extremities Exam: RUE edematous has picc line - Neurological Exam Neurological Exam: awake and more alert Laboratory Results - last 72 hr 10/07/16 10/07/16 10/08/16 20:31 22:09 05:30 WBC 14.9 H RBC 3.96 Hgb 11.5 L Hct 35.5 MCV 89.5 MCH 29.1 MCHC 32.6 L RDW 13.8 Plt Count 198 MPV Neut % (Auto) Lymph % (Auto) Cloud % (Auto) Eos % (Auto) Baso % (Auto) Neut # Lymph # Cloud # Eos # Baso # Sodium Potassium Chloride Carbon Dioxide Anion Gap BUN Creatinine Est GFR ( Amer) Est GFR (Non-Af Amer) POC Glucose (mg/dL) 100 96 Random Glucose Calcium Phosphorus Magnesium Total Bilirubin AST ALT Alkaline Phosphatase Total Protein Albumin Globulin Albumin/Globulin Ratio Lipase Vancomycin Trough 10/08/16 10/08/16 10/08/16 05:30 05:39 11:33 WBC RBC Hgb Hct MCV MCH MCHC RDW Plt Count MPV Neut % (Auto) Lymph % (Auto) Cloud % (Auto) Eos % (Auto) Baso % (Auto) Neut # Lymph # Cloud # Eos # Baso # Sodium 138 Potassium 3.0 L Chloride 101 Carbon Dioxide 27 Anion Gap 13 BUN 15 Creatinine 0.6 L Est GFR ( Amer) > 60 Est GFR (Non-Af Amer) > 60 POC Glucose (mg/dL) 100 111 H Random Glucose 101 Calcium 7.8 L Phosphorus 2.1 L Magnesium 1.7 Total Bilirubin 0.8 AST 24 ALT 29 Alkaline Phosphatase 81 Total Protein 5.9 L Albumin 2.8 L Globulin 3.1 Albumin/Globulin Ratio 0.9 L Lipase 767 H Vancomycin Trough 10/08/16 10/08/16 10/09/16 16:31 16:42 04:45 WBC RBC Hgb Hct MCV MCH MCHC RDW Plt Count MPV Neut % (Auto) Lymph % (Auto) Cloud % (Auto) Eos % (Auto) Baso % (Auto) Neut # Lymph # Cloud # Eos # Baso # Sodium Potassium Chloride Carbon Dioxide Anion Gap BUN Creatinine Est GFR ( Amer) Est GFR (Non-Af Amer) POC Glucose (mg/dL) 99 109 118 H Random Glucose Calcium Phosphorus Magnesium Total Bilirubin AST ALT Alkaline Phosphatase Total Protein Albumin Globulin Albumin/Globulin Ratio Lipase Vancomycin Trough 10/09/16 10/09/16 10/09/16 05:00 05:00 05:00 WBC 16.3 H RBC 3.95 Hgb 11.6 L Hct 35.4 MCV 89.5 MCH 29.5 MCHC 32.9 L RDW 13.9 Plt Count 213 MPV Neut % (Auto) Lymph % (Auto) Cloud % (Auto) Eos % (Auto) Baso % (Auto) Neut # Lymph # Cloud # Eos # Baso # Sodium 136 Potassium 2.8 L Chloride 97 L Carbon Dioxide 31 H Anion Gap 11 BUN 11 Creatinine 0.5 L Est GFR ( Amer) > 60 Est GFR (Non-Af Amer) > 60 POC Glucose (mg/dL) Random Glucose 105 Calcium 7.8 L Phosphorus Magnesium Total Bilirubin 0.8 AST 20 ALT 28 Alkaline Phosphatase 76 Total Protein 5.9 L Albumin 2.8 L Globulin 3.1 Albumin/Globulin Ratio 0.9 L Lipase Vancomycin Trough 10.2 H 10/09/16 10/09/16 10/09/16 11:07 16:32 22:53 WBC RBC Hgb Hct MCV MCH MCHC RDW Plt Count MPV Neut % (Auto) Lymph % (Auto) Cloud % (Auto) Eos % (Auto) Baso % (Auto) Neut # Lymph # Cloud # Eos # Baso # Sodium Potassium Chloride Carbon Dioxide Anion Gap BUN Creatinine Est GFR ( Amer) Est GFR (Non-Af Amer) POC Glucose (mg/dL) 107 109 97 Random Glucose Calcium Phosphorus Magnesium Total Bilirubin AST ALT Alkaline Phosphatase Total Protein Albumin Globulin Albumin/Globulin Ratio Lipase Vancomycin Trough 10/10/16 10/10/16 10/10/16 04:20 04:20 04:35 WBC 14.1 H RBC 3.89 Hgb 11.4 L Hct 34.8 MCV 89.4 MCH 29.3 MCHC 32.8 L RDW 13.8 Plt Count 223 MPV 8.6 Neut % (Auto) 72.8 Lymph % (Auto) 10.3 L Cloud % (Auto) 14.4 H Eos % (Auto) 2.1 Baso % (Auto) 0.4 Neut # 10.3 H Lymph # 1.5 Cloud # 2.0 H Eos # 0.3 Baso # 0.1 Sodium 136 Potassium 2.9 L Chloride 97 L Carbon Dioxide 34 H Anion Gap 8 L BUN 9 Creatinine 0.5 L Est GFR ( Amer) > 60 Est GFR (Non-Af Amer) > 60 POC Glucose (mg/dL) 119 H Random Glucose 118 H Calcium 8.0 L Phosphorus 2.2 L Magnesium 1.7 Total Bilirubin 0.8 AST 36 D ALT 29 Alkaline Phosphatase 91 Total Protein 5.9 L Albumin 2.8 L Globulin 3.2 Albumin/Globulin Ratio 0.9 L Lipase 791 H Vancomycin Trough 10/10/16 10/10/16 11:20 17:08 WBC RBC Hgb Hct MCV MCH MCHC RDW Plt Count MPV Neut % (Auto) Lymph % (Auto) Cloud % (Auto) Eos % (Auto) Baso % (Auto) Neut # Lymph # Cloud # Eos # Baso # Sodium Potassium Chloride Carbon Dioxide Anion Gap BUN Creatinine Est GFR ( Amer) Est GFR (Non-Af Amer) POC Glucose (mg/dL) 112 H 63 L Random Glucose Calcium Phosphorus Magnesium Total Bilirubin AST ALT Alkaline Phosphatase Total Protein Albumin Globulin Albumin/Globulin Ratio Lipase Vancomycin Trough Microbiology 10/05/16 16:45 Blood-Venous Blood Culture - Final NO GROWTH AFTER 5 DAYS 10/05/16 16:45 Blood-Venous Gram Stain - Final TEST NOT PERFORMED 10/05/16 16:45 Blood-Venous Blood Culture - Final NO GROWTH AFTER 5 DAYS 10/05/16 16:45 Blood-Venous Gram Stain - Final 10/09/16 10:15 Blood Blood Culture - Preliminary NO GROWTH AFTER 24 HOURS 10/09/16 10:05 Blood Blood Culture - Preliminary NO GROWTH AFTER 24 HOURS 10/04/16 17:00 Blood-Venous Blood Culture - Final NO GROWTH AFTER 5 DAYS 10/04/16 17:00 Blood-Venous Gram Stain - Final 10/04/16 17:00 Blood-Venous Blood Culture - Final NO GROWTH AFTER 5 DAYS 10/04/16 17:00 Blood-Venous Gram Stain - Final TEST NOT PERFORMED 10/03/16 02:06 Blood-Venous Blood Culture - Final NO GROWTH AFTER 5 DAYS 10/03/16 02:06 Blood-Venous Gram Stain - Final TEST NOT PERFORMED 10/03/16 10:00 Blood-Venous S.aureus & Coag-Neg Staph PNA FISH - Final 10/03/16 10:00 Blood-Venous Blood Culture - Final Coagulase Neg Staphylococcus 10/03/16 10:00 Blood-Venous Gram Stain - Final 10/04/16 15:00 Nose MRSA Culture (Admit) - Final MRSA NOT DETECTED 10/03/16 23:59 Urine Urine Culture - Final No Growth (<1,000 CFU/ML) Accession No. : [id number] Patient Name / ID : LAURO RODRIGUEZ / [id number] Exam Date : 10/09/2016 13:40:37 ( Approved ) Study Comment : Sex / Age : F / 76Y Creator : Gui Herbert MD Dictator : Gui Herbert MD Lead Case Manager : Web Art Director : Gui Herbert MD Approver2 : Report Date : 10/09/2016 16:19:24 My Comment : PROCEDURE: Bilateral upper extremity Doppler dated 10/09/2016 HISTORY: Upper extremity COMPARISON: No prior study available for comparison TECHNIQUE: Duplex interrogation of the deep veins of right and left upper extremities ( including internal jugular veins, subclavian, axillary, brachial, basilic cephalic veins) performed. FINDINGS: The current study reveals in situ PICC line within the basilic vein which also is associated with the surrounding thrombus -DVT. The remaining deep veins of right deep veins of the left upper extremity opaque no evidence of additional DVT. IMPRESSION: In situ right-sided PICC line with at thrombus/DVT in the right basilic vein surrounding the PICC line. Note that Dr. Ha informed these findings at 4: 17 p.m. with written down and back verification. . Note the remaining deep veins of the right upper extremity and wall of the visualized veins left upper extremity are patent. Assessment and Plan (1) Cholecystitis Status: Deleted (2) Pancreatitis Status: Acute (3) Leukocytosis Status: Acute - Assessment and Plan (Free Text) Assessment: A/P- 76 year old female with multiple medical conditions including DM II, HTN, pancreatitis admitted with worsening abdominal pain and nausea found to have cholelithiasis with cholecystitis and GS pancreatitis with and elevated wbc as well as elevated lipase and LFts and elavted lactate. afebrile leukocytosis trending down but stil slightly elevated but no left shift today. CT abd report noted. abd US- cholelithiasis with ? cholecystitis as per report. CXR- ? left lower lung effusion as per report. blood cx- neg x 1 one blood cx was just reported now as - coag neg staph repeat blood cx- 10/04/2016- neg x 6 TTE- no vegetations as per report read by senior specialist. LFTs have normalized, lipase is normal value now. RUE- basilic verin thrombus as per report. plan- advise to continue with broad spectrum abx coverage empirically for now to cover for gram neg and anaerobes for the cholecystitis coverage. hence continue with IV meropenem day #7 advise 3 more days of the IV abx. as per hospitalist surgical tem advised no surgical intervention at this time. continue with IV vanco for coag neg staph bacteremia that was just reported by micro. ( might have been contaminant). keep trough <15. day #7 advise 3 more days of the IV vanco as the coag neg staph in only 1 blood cx from admission was mot likely a contaminant monitor wbc advise to d/c the RUE picc line. f/u GI input as well. pt. still has somewhat elevated lipase. all above d/w the hospitalist
[2016-10-11] MEDS: Enoxaparin 100 mg Syringe SC SCH ×2 (04:31→17:16)
[2016-10-11] MEDS: Insulin Regular 100 units/ml SC SCH ×4 (06:59→21:56)
[2016-10-11 07:52] LABS: BASO % 0.2 % (0.0-2.0); EOS # 0.2 K/uL (0.0-0.7); EOS % 1.3 % (0.0-4.0); HEMATOCRIT 33.9 % (34.0-47.0); LYMPH # 1.3 K/uL (1.0-4.3); LYMPH % 7.1 % (20.0-40.0); MEAN CORPUSCULAR HEMOGLOBIN 29.4 pg (27.0-31.0); MEAN CORPUSCULAR HGB CONC 33.1 g/dL (33.0-37.0); MEAN PLATELET VOLUME 8.4 fl (7.2-11.7); MONO # 1.8 K/uL (0.0-0.8); MONO % 10.1 % (0.0-10.0); NEUT # 14.8 K/uL (1.8-7.0); NEUT % 81.3 % (50.0-75.0); PLATELET COUNT 271 K/uL (130-400); RED CELL DISTRIBUTION WIDTH 14.2 % (11.5-14.5); WHITE BLOOD COUNT 18.2 K/uL (4.8-10.8)
--- NOTE | 2016-10-11 08:34 | CP.PCM.PN ---
Subjective - Date & Time of Evaluation Date of Evaluation: 10/11/16 Time of Evaluation: 11:00 - Subjective Subjective: Patient seen and examined bedside. Chronically ill female appears weak, sleepy and tired . States that does not feel well, complains of pain over suprapubic area BP 147/75 HR 86 afebrile saturating 93-97 % on 2 L O2 via NC No acute issues overnight WBC 18 K Hgb 11 K 3.4 Blood Cx positive for gram positive cocci in clusters Objective - Vital Signs/Intake and Output Vital Signs (last 24 hours): Temp Pulse Resp BP Pulse Ox 97.8 F 86 18 147/75 93 L 10/11/16 08:00 10/11/16 08:00 10/11/16 08:00 10/11/16 08:00 10/11/16 08:00 Intake and Output: 10/11/16 10/11/16 06:59 18:59 Intake Total 650 Output Total 550 Balance 100 - Medications Medications: Current Medications Acetaminophen (Tylenol 325mg Tab) 650 mg PO Q6 PRN PRN Reason: Fever >100.4 F Last Admin: 10/09/16 17:07 Dose: 650 mg Albuterol/Ipratropium (Duoneb 3 Mg/0.5 Mg (3 Ml) Ud) 3 ml INH RQ6 PRN PRN Reason: Shortness of Breath Last Admin: 10/09/16 05:55 Dose: 3 ml Alprazolam (Xanax) 0.25 mg PO Q12 [facility] Stop: 10/14/16 10:16 Last Admin: 10/10/16 22:01 Dose: 0.25 mg Docusate Sodium (Colace) 100 mg PO TID [facility] Last Admin: 10/10/16 17:45 Dose: Not Given Duloxetine HCl (Cymbalta) 60 mg PO HS [facility] Last Admin: 10/10/16 22:01 Dose: 60 mg Enalapril Maleate (Vasotec) 10 mg PO Q12 [facility] Last Admin: 10/10/16 22:01 Dose: 10 mg Enoxaparin Sodium (Lovenox) 100 mg 1 mg/kg (105 mg) SC Q12H [facility] PRN Reason: Protocol Last Admin: 10/11/16 04:31 Dose: 100 mg Famotidine (Pepcid) 20 mg IVP Q12 [facility] Last Admin: 10/10/16 22:06 Dose: 20 mg Gabapentin (Neurontin) 600 mg PO Q8 [facility] Last Admin: 10/11/16 01:20 Dose: 600 mg Hydromorphone HCl (Dilaudid) 1 mg IVP Q3 PRN PRN Reason: Pain, severe (8-10) Last Admin: 10/11/16 04:30 Dose: 1 mg Meropenem 1 gm/ Sodium (Chloride) 100 mls @ 100 mls/hr IVPB Q12 [facility] Last Admin: 10/10/16 22:44 Dose: 100 mls/hr Vancomycin HCl 1 gm/ Sodium (Chloride) 250 mls @ 166.667 mls/hr IVPB Q12H [facility] Last Admin: 10/10/16 22:00 Dose: 166.667 mls/hr Insulin Human Regular (Humulin R) 0 units SC ACHS [facility] PRN Reason: Protocol Last Admin: 10/11/16 06:59 Dose: Not Given Metoprolol Tartrate (Lopressor) 12.5 mg PO Q12 [facility] Last Admin: 10/10/16 22:02 Dose: 12.5 mg Potassium Phos/Sodium Phos (Neutra-Phos) 1 pkt PO TID [facility] Last Admin: 10/10/16 17:34 Dose: Not Given Trazodone HCl (Desyrel) 50 mg PO HS [facility] Last Admin: 10/10/16 22:01 Dose: 50 mg - Labs Labs: 10/11/16 06:00 10/10/16 04:20 PT 16.0 Seconds (9.8-13.1) H 10/06/16 04:20 INR 1.5 (0.9-1.2) H 10/06/16 04:20 APTT 31.3 Seconds (25.6-37.1) 10/06/16 04:20 - Constitutional Appears: Non-toxic, Confused, Chronically Ill, Other (overweight ) - Head Exam Head Exam: ATRAUMATIC, NORMAL INSPECTION, NORMOCEPHALIC - Eye Exam Eye Exam: EOMI, Normal appearance, PERRL Pupil Exam: NORMAL ACCOMODATION - ENT Exam ENT Exam: Mucous Membranes Moist, Normal Exam - Respiratory Exam Respiratory Exam: Clear to Ausculation Bilateral, NORMAL BREATHING PATTERN. absent: Rales, Wheezes, Respiratory Distress - Cardiovascular Exam Cardiovascular Exam: REGULAR RHYTHM, +S1, +S2. absent: JVD - GI/Abdominal Exam GI & Abdominal Exam: Soft, Tenderness (suprapubic area with palpation), Normal Bowel Sounds. absent: Distended, Guarding, Rebound - Rectal Exam Rectal Exam: Deferred - Extremities Exam Extremities Exam: Normal Capillary Refill. absent: Calf Tenderness, Pedal Edema , Tenderness Additional comments: bilateral upper extremity edema - Neurological Exam Neurological Exam: Alert, Awake, CN II-XII Intact, Oriented x3 - Psychiatric Exam Psychiatric exam: Agitated, Depressed, Flat Affect - Skin Skin Exam: Pallor, Warm Assessment and Plan - Assessment and Plan (Free Text) Assessment: 76 years old female with hx of DM, HTN, A Flutter, Pancreatitis came in with a 1 year old intermittent, abdominal pain which has worsened over the past 2 days. It is located below both breast ,the periumbilical region and both lower quadrant, not relieved with her home medications and increases with movement. She refers to headache and vomiting. No diarrhea, dysuria .CT abdomen showed cholelithiasis possible cholecystitis and pancreatitis. Blood test revealed elevated LFT-s , total bilirubin , lipase , WBC 21 k , lactic acid 4.5 initially. She was admitted in ICU with acute gallstone pancreatitis, cholecystitis , started on IVF Iv antibiotics, pain management. Surgery, ID and GI consulted . Patient became hypotensive during admission requiring dopamine drip that is discontinued Clinically improving,afebrile BP better controlled, tolerating diet. Has been on IVF and IV Meropenem and Vanco 1.Severe Sepsis -- improving secondary to acute gallstone pancreatitis and suspected cholecystitis off dopamine drip Blood cx positive for gram positive cocci x 2 bottle: 10/03 and 10/09 HAS BEEN ON IV Meropenem and vancomycin for 8 days, afebrile but WBC still elevated 18 K No surgical intervention for now as per surgery LFT-s, bilirubin and lipase normalized Started low fat diet and tolerating refusing PT and MARIS As per ID continue IV antibiotics for 3 more days 2.Acute gallstone Pancreatitis improving Continue IVF, pain management GI and surgery on consult - surgery signed off, pt to follow up with surgery as outpatient for cholecystectomy continue low fat diet repeat CMP , lipase in AM 3. Acute Cholecystitis with cholelithiasis on IVF and IV antibiotics surgery on consult no surgical intervention for now patient clinically improving no need for HIDA scan as per GI potential cholecystectomy as out patient On Meropenem and vanco IV 4. HTN better controlled on Lopressor 12.5 mg po BID and enalapril 10 mg po bid 5. YASEMIN 2/2 dehydration- improved 6. Hyperglycemia HbA1c 6.2 Patient is pre diabetic Continue accuchecks diet 7. Hypokalemia Replace with KCl and monitor repeat BMp in AM 8. Depression and anxiety on xanax ,trazodone, gabapentin and seroquel at home resumed meds 9. Aflutter per history on lopressor 10. Dyslipidemia LDL 140 cholesterol 203 will consider starting statin before discharge 11.Gait instability patient walks with walker at home PT eval patient not participating with PT 12. Stress ulcer prophylaxis with Pepcid 13. DVT prophylaxis with SCD patient has IVC filter in place INR 1.5 14. RUE DVT RUE thrombus found in basilic vein (superficial), discussed with interventional radiology. Anticoagulate patient with Lovenox, and will monitor. May change PICC over to L side, however will not D/C R sided PICC until L is placed.
[2016-10-11 09:11] LABS: ALB/GLOB RATIO 0.7 (1.0-2.1); ALKALINE PHOSPHATASE 81 U/L (38-126); ALT/SGPT 15 U/L (9-52); AST/SGOT 31 U/L (14-36); BILIRUBIN,TOTAL 0.7 mg/dl (0.2-1.3); BLOOD UREA NITROGEN 9 mg/dl (7-17); CARBON DIOXIDE 34 mmol/L (22-30); CHLORIDE 96 mmol/L (98-107); GFR AFRICAN-AMERICAN > 60; GLUCOSE,RANDOM 118 mg/dL (65-105); MAGNESIUM 1.5 MG/DL (1.6-2.3); POTASSIUM 3.4 MMOL/L (3.6-5.0); SODIUM 137 mmol/l (132-148); TOTAL PROTEIN 6.1 G/DL (6.3-8.2)
[2016-10-11] MEDS: Meropenem 1 GM in Sodium Chloride 0.9% 100 ML IVPB SCH ×2 (10:15→23:27)
[2016-10-11] MEDS: Potassium & Sodium Phosphate PO SCH ×3 (10:18→17:18)
[2016-10-11] MEDS ORDERED: Potassium Chloride 20 mEq/15 ml LIQ UD PO ONE (11:46)
[2016-10-11 11:55] LABS: BASOPHIL 1 % (0-2); EOSINOPHIL 2 % (0-7); LARGE PLATELETS PRESENT; NEUTROPHIL 80 % (42-75); TOTAL CELLS COUNTED 100
[2016-10-12] MEDS: Enoxaparin 100 mg Syringe SC SCH ×2 (05:26→18:09)
--- NOTE | 2016-10-12 10:43 | US ---
EXAM: US Duplex Bilateral Upper Extremity Arteries EXAM DATE/TIME: 10/09/2016 8:49 AM CLINICAL HISTORY: 76 years old, female; Pain; Arn, upper; Bilateral; Additional info: Cool u/e, pain TECHNIQUE: Real-time ultrasound scan of the arteries of the bilateral upper extremities with 2-D carrasco scale, color Doppler flow and spectral waveform analysis. COMPARISON: No relevant prior studies available. FINDINGS: Right upper extremity: Normal waveforms identified from subclavian to proximal radial arteries. No mural plaque or thrombus demonstrated. There is intimal thickening of the right common carotid artery. Flow velocities are as follow: Right common carotid artery: 94 cm/s Subclavian artery: 84.3 cm/sec Axillary artery: 104.3 cm/sec Brachial artery: 120.6 cm/sec proximal 86.4 cm/sec distal Radial artery: 96.3 cm/sec proximal Ulnar artery: Under 16.9 cm/sec distal Left upper extremity: Normal waveforms identified from subclavian to proximal radial arteries. No mural plaque or thrombus demonstrated. Flow velocities are as follow: Left common carotid artery: 83.6 cm/s Subclavian artery: 99.2 cm/sec Axillary artery: 112.2 cm/sec Brachial artery: 120.2 cm/sec Radial artery: 83.9 cm/sec Ulnar artery: 76.8 distal IMPRESSION: No arterial occlusive disease or significant stenosis.
--- NOTE | 2016-10-12 11:00 | CP.PCM.PN ---
Subjective - Date & Time of Evaluation Date of Evaluation: 10/12/16 Time of Evaluation: 09:00 - Subjective Subjective: Patient seen and examined bedside. Chronically ill female appears weak,pale, sleepy and tired with flat affect, agitated at times and with some minor No acute issues overnight WBC 18 K Hgb 11 K 3.4 Blood Cx positive for gram positive cocci in clusters Objective - Vital Signs/Intake and Output Vital Signs (last 24 hours): Temp Pulse Resp BP Pulse Ox 98.5 F 83 20 150/82 96 10/12/16 08:00 10/12/16 09:00 10/12/16 08:00 10/12/16 05:04 10/12/16 08:00 Intake and Output: 10/12/16 10/12/16 06:59 18:59 Intake Total 350 Output Total 350 Balance 0 - Medications Medications: Current Medications Acetaminophen (Tylenol 325mg Tab) 650 mg PO Q6 PRN PRN Reason: Fever >100.4 F Last Admin: 10/09/16 17:07 Dose: 650 mg Albuterol/Ipratropium (Duoneb 3 Mg/0.5 Mg (3 Ml) Ud) 3 ml INH RQ6 PRN PRN Reason: Shortness of Breath Last Admin: 10/09/16 05:55 Dose: 3 ml Alprazolam (Xanax) 0.25 mg PO Q12 [facility] Stop: 10/14/16 10:16 Last Admin: 10/11/16 21:55 Dose: 0.25 mg Docusate Sodium (Colace) 100 mg PO TID [facility] Last Admin: 10/11/16 17:16 Dose: 100 mg Duloxetine HCl (Cymbalta) 60 mg PO HS [facility] Last Admin: 10/11/16 21:48 Dose: 60 mg Enalapril Maleate (Vasotec) 10 mg PO Q12 [facility] Last Admin: 10/11/16 21:51 Dose: 10 mg Enoxaparin Sodium (Lovenox) 100 mg 1 mg/kg (105 mg) SC Q12H [facility] PRN Reason: Protocol Last Admin: 10/12/16 05:26 Dose: 100 mg Famotidine (Pepcid) 20 mg IVP Q12 [facility] Last Admin: 10/11/16 23:27 Dose: 20 mg Gabapentin (Neurontin) 600 mg PO Q8 [facility] Last Admin: 10/12/16 01:36 Dose: 600 mg Hydromorphone HCl (Dilaudid) 1 mg IVP Q3 PRN PRN Reason: Pain, severe (8-10) Last Admin: 10/11/16 23:27 Dose: 1 mg Meropenem 1 gm/ Sodium (Chloride) 100 mls @ 100 mls/hr IVPB Q12 [facility] Last Admin: 10/11/16 23:27 Dose: 100 mls/hr Vancomycin HCl 1 gm/ Sodium (Chloride) 250 mls @ 166.667 mls/hr IVPB Q12H [facility] Last Admin: 10/11/16 21:47 Dose: 166.667 mls/hr Insulin Human Regular (Humulin R) 0 units SC ACHS [facility] PRN Reason: Protocol Last Admin: 10/11/16 21:56 Dose: Not Given Metoprolol Tartrate (Lopressor) 12.5 mg PO Q12 [facility] Last Admin: 10/11/16 21:50 Dose: 12.5 mg Potassium Phos/Sodium Phos (Neutra-Phos) 1 pkt PO TID [facility] Last Admin: 10/11/16 17:18 Dose: 1 pkt Trazodone HCl (Desyrel) 50 mg PO HS [facility] Last Admin: 10/11/16 21:48 Dose: 50 mg - Labs Labs: 10/11/16 06:00 10/11/16 06:00 PT 16.0 Seconds (9.8-13.1) H 10/06/16 04:20 INR 1.5 (0.9-1.2) H 10/06/16 04:20 APTT 31.3 Seconds (25.6-37.1) 10/06/16 04:20 - Constitutional Appears: Confused, Chronically Ill, Other (overweight ) - Head Exam Head Exam: ATRAUMATIC, NORMOCEPHALIC - Eye Exam Eye Exam: EOMI, Normal appearance, PERRL Pupil Exam: NORMAL ACCOMODATION - ENT Exam ENT Exam: Mucous Membranes Moist, Normal Exam - Neck Exam Neck Exam: Full ROM, Normal Inspection - Respiratory Exam Respiratory Exam: Clear to Ausculation Bilateral, NORMAL BREATHING PATTERN. absent: Rhonchi, Wheezes - Cardiovascular Exam Cardiovascular Exam: REGULAR RHYTHM, RRR, +S1, +S2. absent: JVD - GI/Abdominal Exam GI & Abdominal Exam: Soft, Normal Bowel Sounds. absent: Distended, Guarding, Rebound - Rectal Exam Rectal Exam: Deferred - Extremities Exam Additional comments: bilateral upper extremity edema - Neurological Exam Neurological Exam: Alert, Awake, Oriented x3 Additional comments: flat affect, weak - Psychiatric Exam Psychiatric exam: Agitated, Anxious, Flat Affect - Skin Skin Exam: Dry, Pallor, Warm Assessment and Plan - Assessment and Plan (Free Text) Assessment: 76 years old female with hx of DM, HTN, A Flutter, Pancreatitis came in with a 1 year old intermittent, abdominal pain which has worsened over the past 2 days. It is located below both breast ,the periumbilical region and both lower quadrant, not relieved with her home medications and increases with movement. She refers to headache and vomiting. No diarrhea, dysuria .CT abdomen showed cholelithiasis possible cholecystitis and pancreatitis. Blood test revealed elevated LFT-s , total bilirubin , lipase , WBC 21 k , lactic acid 4.5 initially. She was admitted in ICU with acute gallstone pancreatitis, cholecystitis , started on IVF Iv antibiotics, pain management. Surgery, ID and GI consulted . Patient became hypotensive during admission requiring dopamine drip that is discontinued Clinically improving,afebrile BP better controlled, tolerating diet. Has been on IVF and IV Meropenem and Vanco 1.Severe Sepsis -- improving secondary to acute gallstone pancreatitis and suspected cholecystitis off dopamine drip Blood cx positive for gram positive cocci x 2 bottle: 10/03 and 10/09 HAS BEEN ON IV Meropenem and vancomycin for 8 days, afebrile but WBC still elevated 18 K No surgical intervention for now as per surgery LFT-s, bilirubin and lipase normalized Started low fat diet and tolerating refusing PT and MARSI As per ID continue IV antibiotics for 3 more days 2.Acute gallstone Pancreatitis improving Continue IVF, pain management GI and surgery on consult - surgery signed off, pt to follow up with surgery as outpatient for cholecystectomy continue low fat diet repeat CMP , lipase in AM 3. Acute Cholecystitis with cholelithiasis on IVF and IV antibiotics surgery on consult no surgical intervention for now patient clinically improving no need for HIDA scan as per GI potential cholecystectomy as out patient On Meropenem and vanco IV 4. HTN better controlled on Lopressor 12.5 mg po BID and enalapril 10 mg po bid 5. YASEMIN 2/2 dehydration- improved 6. Hyperglycemia HbA1c 6.2 Patient is pre diabetic Continue accuchecks diet 7. Hypokalemia Replace with KCl and monitor repeat BMp in AM 8. Depression and anxiety on xanax ,trazodone, gabapentin and seroquel at home resumed meds 9. Aflutter per history on lopressor 10. Dyslipidemia LDL 140 cholesterol 203 will consider starting statin before discharge 11.Gait instability patient walks with walker at home PT eval patient not participating with PT 12. Stress ulcer prophylaxis with Pepcid 13. DVT prophylaxis with SCD patient has IVC filter in place INR 1.5 14. RUE DVT RUE thrombus found in basilic vein (superficial), discussed with interventional radiology. Anticoagulate patient with Lovenox, and will monitor. May change PICC over to L side, however will not D/C R sided PICC until L is placed.
[2016-10-12] MEDS: Insulin Regular 100 units/ml SC SCH ×4 (11:05→22:07)
[2016-10-12] MEDS: Potassium & Sodium Phosphate PO SCH ×3 (11:07→18:10)
[2016-10-12] MEDS: Meropenem 1 GM in Sodium Chloride 0.9% 100 ML IVPB SCH ×2 (12:24→21:46)
[2016-10-13 06:18] LABS: HEMATOCRIT 32.4 % (34.0-47.0); MEAN CELL VOLUME 91.1 fl (81.0-99.0); MEAN CORPUSCULAR HEMOGLOBIN 31.5 pg (27.0-31.0); MEAN CORPUSCULAR HGB CONC 34.5 g/dL (33.0-37.0); RED CELL DISTRIBUTION WIDTH 13.5 % (11.5-14.5); WHITE BLOOD COUNT 9.7 K/uL (4.8-10.8)
[2016-10-13 06:26] LABS: ALB/GLOB RATIO 0.8 (1.0-2.1); ALKALINE PHOSPHATASE 79 U/L (38-126); ALT/SGPT 23 U/L (9-52); AST/SGOT 29 U/L (14-36); BILIRUBIN,TOTAL 0.6 mg/dl (0.2-1.3); BLOOD UREA NITROGEN 10 mg/dl (7-17); CARBON DIOXIDE 35 mmol/L (22-30); CHLORIDE 96 mmol/L (98-107); GFR AFRICAN-AMERICAN > 60; GLUCOSE,RANDOM 103 mg/dL (65-105); LIPASE 569 U/L (23-300); POTASSIUM 3.6 MMOL/L (3.6-5.0); SODIUM 139 mmol/l (132-148); TOTAL PROTEIN 6.3 G/DL (6.3-8.2)
[2016-10-13] MEDS: Enoxaparin 100 mg Syringe SC SCH ×2 (06:53→17:20)
[2016-10-13] MEDS: Insulin Regular 100 units/ml SC SCH ×5 (06:53→22:13)
--- NOTE | 2016-10-13 09:30 | VASCULAR ---
PROCEDURE: Date of procedure: 10/07/2016 Procedure: 1. Placement of a right arm PICC with ultrasound and fluoroscopic guidance, CPT 72209 2. PICC tip confirmation with spot radiograph and is in the superior vena cava Medications: 1 percent lidocaine Total Fluoro time: 12.6 seconds Radiation: 1.29 MGy EBL: 2 cc HISTORY: Infection requiring long-term IV antibiotics TECHNIQUE: Following informed consent and procedure time-out, the patient was placed supine on the interventional table and the right arm prepped and draped in the usual sterile fashion. Ultrasound showed a patent and compressible right basilic vein. After the skin was anesthetized with lidocaine, the basilic vein was accessed with micro micropuncture technique using ultrasound guidance. A guidewire was then advanced under fluoroscopic guidance into the superior vena cava. An image documenting ultrasound guidance for vascular access was permanently saved. The length of the single-lumen 4 [place] PICC was trimmed to 40 centimeters and advanced through a peel-away sheath. The PICC was position with tip of PICC confirm a spot radiograph the superior vena cava. The PICC was secured to the patient's skin. The PICC was flushed. A biopatch and sterile dressing was applied. IMPRESSION: Placement of a single-lumen 4 [place] PICC trimmed to 40centimeters via right basilic vein. The tip of the PICC is confirmed with spot radiograph and is in the superior vena cava.
[2016-10-13] MEDS: Meropenem 1 GM in Sodium Chloride 0.9% 100 ML IVPB SCH (10:46)
[2016-10-13] MEDS: Potassium & Sodium Phosphate PO SCH ×3 (10:48→17:21)
--- NOTE | 2016-10-13 11:39 | CP.PCM.PN ---
Subjective - Date & Time of Evaluation Date of Evaluation: 10/13/16 Time of Evaluation: 10:00 - Subjective Subjective: Patient seen and examined bedside. Chronically ill female appears weak,pale, sleepy with flat affect, agitated , forgetful and confused at times. No acute issues overnight WBC trended down from 18 k to 9.7 , remains afebrile and tolerating PO intake Still with episodes of diarrhea Blood Cx positive for gram positive cocci in clusters Objective - Vital Signs/Intake and Output Vital Signs (last 24 hours): Temp Pulse Resp BP Pulse Ox 97.7 F 81 20 135/80 100 10/13/16 08:00 10/13/16 10:47 10/13/16 08:00 10/13/16 10:47 10/13/16 08:00 - Medications Medications: Current Medications Acetaminophen (Tylenol 325mg Tab) 650 mg PO Q6 PRN PRN Reason: Fever >100.4 F Last Admin: 10/09/16 17:07 Dose: 650 mg Acetaminophen (Tylenol 325mg Tab) 650 mg PO Q6 PRN PRN Reason: Pain, Mild (1-3), headache Last Admin: 10/12/16 23:42 Dose: 650 mg Albuterol/Ipratropium (Duoneb 3 Mg/0.5 Mg (3 Ml) Ud) 3 ml INH RQ6 PRN PRN Reason: Shortness of Breath Last Admin: 10/09/16 05:55 Dose: 3 ml Alprazolam (Xanax) 0.25 mg PO Q12 [facility] Stop: 10/14/16 10:16 Last Admin: 10/13/16 10:56 Dose: 0.25 mg Docusate Sodium (Colace) 100 mg PO TID [facility] Last Admin: 10/13/16 10:46 Dose: Not Given Duloxetine HCl (Cymbalta) 60 mg PO HS [facility] Last Admin: 10/12/16 21:47 Dose: 60 mg Enalapril Maleate (Vasotec) 10 mg PO Q12 [facility] Last Admin: 10/13/16 10:48 Dose: 10 mg Enoxaparin Sodium (Lovenox) 100 mg 1 mg/kg (105 mg) SC Q12H [facility] PRN Reason: Protocol Last Admin: 10/13/16 06:53 Dose: Not Given Famotidine (Pepcid) 20 mg IVP Q12 [facility] Last Admin: 10/12/16 21:46 Dose: 20 mg Gabapentin (Neurontin) 600 mg PO Q8 [facility] Last Admin: 10/13/16 10:48 Dose: 600 mg Hydromorphone HCl (Dilaudid) 1 mg IVP Q3 PRN PRN Reason: Pain, severe (8-10) Last Admin: 10/13/16 10:55 Dose: 1 mg Meropenem 1 gm/ Sodium (Chloride) 100 mls @ 100 mls/hr IVPB Q12 [facility] Last Admin: 10/13/16 10:46 Dose: 100 mls/hr Vancomycin HCl 1 gm/ Sodium (Chloride) 250 mls @ 166.667 mls/hr IVPB Q12H [facility] Last Admin: 10/13/16 10:49 Dose: 166.667 mls/hr Insulin Human Regular (Humulin R) 0 units SC ACHS [facility] PRN Reason: Protocol Last Admin: 10/13/16 06:53 Dose: Not Given Metoprolol Tartrate (Lopressor) 12.5 mg PO Q12 [facility] Last Admin: 10/13/16 10:47 Dose: 12.5 mg Potassium Phos/Sodium Phos (Neutra-Phos) 1 pkt PO TID [facility] Last Admin: 10/13/16 10:48 Dose: 1 pkt Trazodone HCl (Desyrel) 50 mg PO HS [facility] Last Admin: 10/12/16 21:47 Dose: 50 mg - Labs Labs: 10/13/16 05:30 10/13/16 05:30 PT 16.0 Seconds (9.8-13.1) H 10/06/16 04:20 INR 1.5 (0.9-1.2) H 10/06/16 04:20 APTT 31.3 Seconds (25.6-37.1) 10/06/16 04:20 - Constitutional Appears: No Acute Distress, Agitated, Confused, Chronically Ill, Other (obese) - Head Exam Head Exam: ATRAUMATIC, NORMOCEPHALIC - Eye Exam Eye Exam: EOMI, PERRL Pupil Exam: NORMAL ACCOMODATION - ENT Exam ENT Exam: Mucous Membranes Moist, Normal Exam - Neck Exam Neck Exam: Normal Inspection - Respiratory Exam Respiratory Exam: Clear to Ausculation Bilateral, NORMAL BREATHING PATTERN. absent: Rales, Rhonchi, Wheezes - Cardiovascular Exam Cardiovascular Exam: REGULAR RHYTHM, RRR, +S1, +S2. absent: JVD - GI/Abdominal Exam GI & Abdominal Exam: Soft, Normal Bowel Sounds. absent: Distended, Guarding, Tenderness, Rebound - Rectal Exam Rectal Exam: Deferred - Extremities Exam Additional comments: bilateral upper extremity edema - Neurological Exam Neurological Exam: Alert, Awake - Psychiatric Exam Psychiatric exam: Agitated, Flat Affect Additional comments: forgetful , - Skin Skin Exam: Dry, Pallor, Warm Assessment and Plan - Assessment and Plan (Free Text) Assessment: 76 years old female with hx of DM, HTN, A Flutter, Pancreatitis came in with 1 year old intermittent, abdominal pain which has worsened over the past 2 days. It is located below both breast ,the periumbilical region and both lower quadrant, not relieved with her home medications and increases with movement. She refers to headache and vomiting. No diarrhea, dysuria .CT abdomen showed cholelithiasis possible cholecystitis and pancreatitis. Blood test revealed elevated LFT-s , total bilirubin , lipase , WBC 21 k , lactic acid 4.5 initially. She was admitted in ICU with acute gallstone pancreatitis, cholecystitis , started on IVF Iv antibiotics, pain management. Surgery, ID and GI consulted . Patient became hypotensive during admission requiring dopamine drip that now is discontinued .Clinically improving,afebrile BP better controlled, tolerating diet. Has been on IVF and IV Meropenem and Vanco for # 9 .Remains afebrile and WBC trended down from 18 K -- 9.7 K,With episodes of diarrhea Very weak , forgetful at times with flat affect and agitated . Refusing MARIS . 1.Severe Sepsis -- improved secondary to acute gallstone pancreatitis and suspected cholecystitis off dopamine drip Blood cx positive for gram positive cocci x 2 bottle: 10/03 and 10/09 HAS BEEN ON IV Meropenem and vancomycin for 9 days, afebrile and WBC trending down from 18 K -- 9.7 K No surgical intervention for now as per surgery LFT-s, bilirubin and lipase normalized on low fat diet and tolerating refusing PT and MARIS As per ID continue IV antibiotics for total 10 days ( 1 MORE DAY ) 2.Acute gallstone Pancreatitis improved GI and surgery consulted patient to follow up with surgery as outpatient for cholecystectomy continue low fat diet 3. Acute Cholecystitis with cholelithiasis-- improved treated with IVF and IV antibiotics surgery consulted no surgical intervention for now patient clinically improving potential cholecystectomy as out patient On Meropenem and vanco IV 4. HTN better controlled on Lopressor 12.5 mg po BID and enalapril 10 mg po bid 5. YASEMIN 2/2 dehydration- improved 6. Hyperglycemia HbA1c 6.2 Patient is pre diabetic Continue accuchecks diet 7. Hypokalemia Replace and monitor 8. Depression and anxiety on multiple medications xanax ,trazodone, gabapentin and seroquel with flat affect , not suicidal refuses MARIS 9. Aflutter per history on lopressor 10. Dyslipidemia LDL 140 cholesterol 203 will consider starting statin before discharge 11.Gait instability patient walks with walker at home and was able to perform transfers PT eval appreciated patient not participating well with PT and refusing MARIS Will need to discuss with family members if they will take responsibility to take care of patient since she is full assist at present 12. Stress ulcer prophylaxis with Pepcid 13. DVT prophylaxis with SCD patient has IVC filter in place 14. RUE DVT RUE thrombus found in basilic vein (superficial), discussed with interventional radiology. Anticoagulate patient with Lovenox, and will monitor. May change PICC over to L side, however will not D/C R sided PICC until L is placed. Follow up with IR 15. Diarrhea on contact isolation C.diff sent 16. Obesity BMI 37
--- NOTE | 2016-10-13 12:23 | CP.PCM.PN ---
Subjective - Date & Time of Evaluation Date of Evaluation: 10/13/16 Time of Evaluation: 15:10 - Subjective Subjective: ID Note- Pt. seen and examined today in [place]. no new events overnight. continues to have loose bravo as per nurse. awake , alert with occasional epsiodes of confusion. afebrile Objective - Vital Signs/Intake and Output Vital Signs (last 24 hours): Temp Pulse Resp BP Pulse Ox 97.7 F 81 20 135/80 100 10/13/16 08:00 10/13/16 10:47 10/13/16 08:00 10/13/16 10:47 10/13/16 08:00 - Medications Medications: Current Medications Acetaminophen (Tylenol 325mg Tab) 650 mg PO Q6 PRN PRN Reason: Fever >100.4 F Last Admin: 10/09/16 17:07 Dose: 650 mg Acetaminophen (Tylenol 325mg Tab) 650 mg PO Q6 PRN PRN Reason: Pain, Mild (1-3), headache Last Admin: 10/12/16 23:42 Dose: 650 mg Albuterol/Ipratropium (Duoneb 3 Mg/0.5 Mg (3 Ml) Ud) 3 ml INH RQ6 PRN PRN Reason: Shortness of Breath Last Admin: 10/09/16 05:55 Dose: 3 ml Alprazolam (Xanax) 0.25 mg PO Q12 [facility] Stop: 10/14/16 10:16 Last Admin: 10/13/16 10:56 Dose: 0.25 mg Docusate Sodium (Colace) 100 mg PO TID [facility] Last Admin: 10/13/16 10:46 Dose: Not Given Duloxetine HCl (Cymbalta) 60 mg PO HS [facility] Last Admin: 10/12/16 21:47 Dose: 60 mg Enalapril Maleate (Vasotec) 10 mg PO Q12 [facility] Last Admin: 10/13/16 10:48 Dose: 10 mg Enoxaparin Sodium (Lovenox) 100 mg 1 mg/kg (105 mg) SC Q12H [facility] PRN Reason: Protocol Last Admin: 10/13/16 06:53 Dose: Not Given Famotidine (Pepcid) 20 mg IVP Q12 [facility] Last Admin: 10/12/16 21:46 Dose: 20 mg Gabapentin (Neurontin) 600 mg PO Q8 [facility] Last Admin: 10/13/16 10:48 Dose: 600 mg Hydromorphone HCl (Dilaudid) 1 mg IVP Q3 PRN PRN Reason: Pain, severe (8-10) Last Admin: 10/13/16 10:55 Dose: 1 mg Meropenem 1 gm/ Sodium (Chloride) 100 mls @ 100 mls/hr IVPB Q12 [facility] Last Admin: 10/13/16 10:46 Dose: 100 mls/hr Vancomycin HCl 1 gm/ Sodium (Chloride) 250 mls @ 166.667 mls/hr IVPB Q12H [facility] Last Admin: 10/13/16 10:49 Dose: 166.667 mls/hr Insulin Human Regular (Humulin R) 0 units SC ACHS PATTI PRN Reason: Protocol Last Admin: 10/13/16 06:53 Dose: Not Given Metoprolol Tartrate (Lopressor) 12.5 mg PO Q12 [facility] Last Admin: 10/13/16 10:47 Dose: 12.5 mg Potassium Phos/Sodium Phos (Neutra-Phos) 1 pkt PO TID [facility] Last Admin: 10/13/16 10:48 Dose: 1 pkt Trazodone HCl (Desyrel) 50 mg PO HS [facility] Last Admin: 10/12/16 21:47 Dose: 50 mg - Labs Labs: - Additional Findings Additional findings: Head Exam Head Exam: ATRAUMATIC - Eye Exam Eye Exam: EOMI - Neck Exam Neck Exam: Full ROM - Respiratory Exam Respiratory Exam: NORMAL BREATHING PATTERN Additional comments: good breath sounds b/l - Cardiovascular Exam Cardiovascular Exam: RRR, +S1, +S2 - GI/Abdominal Exam GI & Abdominal Exam: Soft, Normal Bowel Sounds Additional comments: no tenderness to palpation today no guarding no rebound Laboratory Results - last 72 hr 10/10/16 10/10/16 10/11/16 17:08 21:42 05:10 WBC RBC Hgb Hct MCV MCH MCHC RDW Plt Count MPV Neut % (Auto) Lymph % (Auto) Lewis % (Auto) Eos % (Auto) Baso % (Auto) Neut # Lymph # Lewis # Eos # Baso # Neutrophils % (Manual) Lymphocytes % (Manual) Monocytes % (Manual) Eosinophils % (Manual) Basophils % (Manual) Platelet Estimate Large Platelets Poikilocytosis (manual Anisocytosis (manual) Sodium Potassium Chloride Carbon Dioxide Anion Gap BUN Creatinine Est GFR ( Amer) Est GFR (Non-Af Amer) POC Glucose (mg/dL) 63 L 107 92 Random Glucose Calcium Phosphorus Magnesium Total Bilirubin AST ALT Alkaline Phosphatase Total Protein Albumin Globulin Albumin/Globulin Ratio Lipase 10/11/16 10/11/16 10/11/16 06:00 06:00 11:30 WBC 18.2 H RBC 3.80 Hgb 11.2 L Hct 33.9 L MCV 89.0 MCH 29.4 MCHC 33.1 RDW 14.2 Plt Count 271 MPV 8.4 Neut % (Auto) 81.3 H Lymph % (Auto) 7.1 L Lewis % (Auto) 10.1 H Eos % (Auto) 1.3 Baso % (Auto) 0.2 Neut # 14.8 H Lymph # 1.3 Lewis # 1.8 H Eos # 0.2 Baso # 0.0 Neutrophils % (Manual) 80 H Lymphocytes % (Manual) 8 L Monocytes % (Manual) 9 Eosinophils % (Manual) 2 Basophils % (Manual) 1 Platelet Estimate Normal Large Platelets Present Poikilocytosis (manual Slight Anisocytosis (manual) Slight Sodium 137 Potassium 3.4 L Chloride 96 L Carbon Dioxide 34 H Anion Gap 10 BUN 9 Creatinine 0.5 L Est GFR ( Amer) > 60 Est GFR (Non-Af Amer) > 60 POC Glucose (mg/dL) 118 H Random Glucose 118 H Calcium 8.0 L Phosphorus 3.0 Magnesium 1.5 L Total Bilirubin 0.7 AST 31 ALT 15 Alkaline Phosphatase 81 Total Protein 6.1 L Albumin 2.6 L Globulin 3.5 Albumin/Globulin Ratio 0.7 L Lipase 10/11/16 10/11/16 10/12/16 16:29 21:43 05:20 WBC RBC Hgb Hct MCV MCH MCHC RDW Plt Count MPV Neut % (Auto) Lymph % (Auto) Lewis % (Auto) Eos % (Auto) Baso % (Auto) Neut # Lymph # Lewis # Eos # Baso # Neutrophils % (Manual) Lymphocytes % (Manual) Monocytes % (Manual) Eosinophils % (Manual) Basophils % (Manual) Platelet Estimate Large Platelets Poikilocytosis (manual Anisocytosis (manual) Sodium Potassium Chloride Carbon Dioxide Anion Gap BUN Creatinine Est GFR ( Amer) Est GFR (Non-Af Amer) POC Glucose (mg/dL) 113 H 132 H 368 H Random Glucose Calcium Phosphorus Magnesium Total Bilirubin AST ALT Alkaline Phosphatase Total Protein Albumin Globulin Albumin/Globulin Ratio Lipase 10/12/16 10/12/16 10/12/16 12:12 16: 20:58 WBC RBC Hgb Hct MCV MCH MCHC RDW Plt Count MPV Neut % (Auto) Lymph % (Auto) Lewis % (Auto) Eos % (Auto) Baso % (Auto) Neut # Lymph # Lewis # Eos # Baso # Neutrophils % (Manual) Lymphocytes % (Manual) Monocytes % (Manual) Eosinophils % (Manual) Basophils % (Manual) Platelet Estimate Large Platelets Poikilocytosis (manual Anisocytosis (manual) Sodium Potassium Chloride Carbon Dioxide Anion Gap BUN Creatinine Est GFR ( Amer) Est GFR (Non-Af Amer) POC Glucose (mg/dL) 126 H 120 H 120 H Random Glucose Calcium Phosphorus Magnesium Total Bilirubin AST ALT Alkaline Phosphatase Total Protein Albumin Globulin Albumin/Globulin Ratio Lipase 10/13/16 10/13/16 10/13/16 05:28 05:30 05:30 WBC 9.7 RBC 3.56 L Hgb 11.2 L Hct 32.4 L MCV 91.1 D MCH 31.5 H MCHC 34.5 RDW 13.5 Plt Count 248 MPV Neut % (Auto) Lymph % (Auto) Lewis % (Auto) Eos % (Auto) Baso % (Auto) Neut # Lymph # Lewis # Eos # Baso # Neutrophils % (Manual) Lymphocytes % (Manual) Monocytes % (Manual) Eosinophils % (Manual) Basophils % (Manual) Platelet Estimate Large Platelets Poikilocytosis (manual Anisocytosis (manual) Sodium 139 Potassium 3.6 Chloride 96 L Carbon Dioxide 35 H Anion Gap 12 BUN 10 Creatinine 0.5 L Est GFR ( Amer) > 60 Est GFR (Non-Af Amer) > 60 POC Glucose (mg/dL) 96 Random Glucose 103 Calcium 8.0 L Phosphorus Magnesium Total Bilirubin 0.6 AST 29 ALT 23 Alkaline Phosphatase 79 Total Protein 6.3 Albumin 2.8 L Globulin 3.6 Albumin/Globulin Ratio 0.8 L Lipase 569 H Microbiology 10/09/16 10:15 Blood Blood Culture - Preliminary NO GROWTH AFTER 4 DAYS 10/09/16 10:05 Blood S.aureus & Coag-Neg Staph PNA FISH - Final 10/09/16 10:05 Blood Blood Culture - Final Coagulase Neg Staphylococcus 10/09/16 10:05 Blood Gram Stain - Final 10/10/16 15:00 Nose MRSA Culture (Admit) - Final MRSA NOT DETECTED 10/05/16 16:45 Blood-Venous Blood Culture - Final NO GROWTH AFTER 5 DAYS 10/05/16 16:45 Blood-Venous Gram Stain - Final TEST NOT PERFORMED 10/05/16 16:45 Blood-Venous Blood Culture - Final NO GROWTH AFTER 5 DAYS 10/05/16 16:45 Blood-Venous Gram Stain - Final 10/04/16 17:00 Blood-Venous Blood Culture - Final NO GROWTH AFTER 5 DAYS 10/04/16 17:00 Blood-Venous Gram Stain - Final 10/04/16 17:00 Blood-Venous Blood Culture - Final NO GROWTH AFTER 5 DAYS 10/04/16 17:00 Blood-Venous Gram Stain - Final TEST NOT PERFORMED 10/03/16 02:06 Blood-Venous Blood Culture - Final NO GROWTH AFTER 5 DAYS 10/03/16 02:06 Blood-Venous Gram Stain - Final TEST NOT PERFORMED 10/03/16 10:00 Blood-Venous S.aureus & Coag-Neg Staph PNA FISH - Final 10/03/16 10:00 Blood-Venous Blood Culture - Final Coagulase Neg Staphylococcus 10/03/16 10:00 Blood-Venous Gram Stain - Final 10/04/16 15:00 Nose MRSA Culture (Admit) - Final MRSA NOT DETECTED 10/03/16 23:59 Urine Urine Culture - Final No Growth (<1,000 CFU/ML) Assessment and Plan (1) Cholecystitis Status: Deleted (2) Pancreatitis Status: Acute (3) Leukocytosis Status: Acute - Assessment and Plan (Free Text) Assessment: A/P- 76 year old female with multiple medical conditions including DM II, HTN, pancreatitis admitted with worsening abdominal pain and nausea found to have cholelithiasis with cholecystitis and GS pancreatitis with and elevated wbc as well as elevated lipase and LFts and elavted lactate. afebrile leukocytosis resolved today. CT abd report noted. abd US- cholelithiasis with ? cholecystitis as per report. CXR- ? left lower lung effusion as per report. blood cx- neg x 1 one blood cx from 10/03/2016 - coag neg staph repeat blood cx- and 10/05-- neg x 4 now reported one positive blood cx from 10/09/2016 and other negative coag neg staph TTE- no vegetations as per report read by long term care administrator. LFTs have normalized, lipase is normal value now. RUE- basilic verin thrombus as per report. plan- completed 10 days of IV meropenem for empiric coverage for the cholecystitis and sirs. can d/c meropenem today. as per hospitalist surgical tem advised no surgical intervention at this time. continue with IV vanco for coag neg staph bacteremia ( might have been contaminant). keep trough <15. day #10. since one more blood cx from 10/09/2016 is agian reported positive (1 of the 2 bottles) advise 3 more days of Iv vanco check stool c.diff. all above d/w the hospitalist
[2016-10-14] MEDS: Enoxaparin 100 mg Syringe SC SCH ×2 (05:23→17:32)
[2016-10-14 06:46] LABS: BLOOD UREA NITROGEN 7 mg/dl (7-17); CARBON DIOXIDE 33 mmol/L (22-30); CHLORIDE 96 mmol/L (98-107); GFR AFRICAN-AMERICAN > 60; GLUCOSE,RANDOM 106 mg/dL (65-105); POTASSIUM 3.7 MMOL/L (3.6-5.0); SODIUM 139 mmol/l (132-148)
[2016-10-14 06:55] LABS: HEMATOCRIT 34.6 % (34.0-47.0); MEAN CELL VOLUME 91.5 fl (81.0-99.0); MEAN CORPUSCULAR HEMOGLOBIN 29.3 pg (27.0-31.0); RED CELL DISTRIBUTION WIDTH 13.8 % (11.5-14.5); WHITE BLOOD COUNT 9.2 K/uL (4.8-10.8)
[2016-10-14] MEDS: Insulin Regular 100 units/ml SC SCH ×4 (06:59→22:22)
[2016-10-14] MEDS: Potassium & Sodium Phosphate PO SCH ×3 (09:30→17:32)
[2016-10-14] MEDS ORDERED: HYDROmorphone 0.5 mg/0.5 ml ISec IVP STA (12:02)
--- NOTE | 2016-10-14 14:46 | CP.PCM.PN ---
Subjective - Date & Time of Evaluation Date of Evaluation: 10/14/16 Time of Evaluation: 10:30 - Subjective Subjective: No fever has mild abdominal pain tolerating diet diarrhea better no CP no SOB Refuses [facility] placement - states her children take care of her 24hrs and she has a [employer] 2x per week x 3hrs Objective - Vital Signs/Intake and Output Vital Signs (last 24 hours): Temp Pulse Resp BP Pulse Ox 98.8 F 77 18 182/96 H 100 10/14/16 12:00 10/14/16 12:00 10/14/16 12:00 10/14/16 12:00 10/14/16 12:00 Intake and Output: 10/14/16 10/14/16 06:59 18:59 Intake Total 250 Balance 250 - Medications Medications: Current Medications Acetaminophen (Tylenol 325mg Tab) 650 mg PO Q6 PRN PRN Reason: Fever >100.4 F Last Admin: 10/09/16 17:07 Dose: 650 mg Acetaminophen (Tylenol 325mg Tab) 650 mg PO Q6 PRN PRN Reason: Pain, Mild (1-3), headache Last Admin: 10/12/16 23:42 Dose: 650 mg Albuterol/Ipratropium (Duoneb 3 Mg/0.5 Mg (3 Ml) Ud) 3 ml INH RQ6 PRN PRN Reason: Shortness of Breath Last Admin: 10/09/16 05:55 Dose: 3 ml Docusate Sodium (Colace) 100 mg PO TID [facility] Last Admin: 10/14/16 12:13 Dose: 100 mg Duloxetine HCl (Cymbalta) 60 mg PO HS [facility] Last Admin: 10/13/16 21:59 Dose: 60 mg Enalapril Maleate (Vasotec) 10 mg PO Q12 [facility] Last Admin: 10/14/16 09:30 Dose: 10 mg Enoxaparin Sodium (Lovenox) 100 mg 1 mg/kg (105 mg) SC Q12H [facility] PRN Reason: Protocol Last Admin: 10/14/16 05:23 Dose: 100 mg Famotidine (Pepcid) 20 mg PO Q12 [facility] Last Admin: 10/14/16 09:30 Dose: 20 mg Gabapentin (Neurontin) 600 mg PO Q8 [facility] Last Admin: 10/14/16 09:28 Dose: 600 mg Hydromorphone HCl (Dilaudid) 1 mg IVP Q3 PRN PRN Reason: Pain, severe (8-10) Last Admin: 10/13/16 22:17 Dose: 1 mg Vancomycin HCl 1 gm/ Sodium (Chloride) 250 mls @ 166.667 mls/hr IVPB Q12H [facility] Last Admin: 10/14/16 09:27 Dose: 166.667 mls/hr Insulin Human Regular (Humulin R) 0 units SC ACHS [facility] PRN Reason: Protocol Last Admin: 10/14/16 12:13 Dose: Not Given Metoprolol Tartrate (Lopressor) 25 mg PO Q12 [facility] Last Admin: 10/14/16 09:28 Dose: 25 mg Potassium Phos/Sodium Phos (Neutra-Phos) 1 pkt PO TID [facility] Last Admin: 10/14/16 12:13 Dose: 1 pkt Trazodone HCl (Desyrel) 50 mg PO HS [facility] Last Admin: 10/13/16 21:59 Dose: 50 mg - Labs Labs: 10/14/16 05:25 10/14/16 05:25 PT 16.0 Seconds (9.8-13.1) H 10/06/16 04:20 INR 1.5 (0.9-1.2) H 10/06/16 04:20 APTT 31.3 Seconds (25.6-37.1) 10/06/16 04:20 - Constitutional Appears: No Acute Distress, Chronically Ill - Head Exam Head Exam: NORMAL INSPECTION, NORMOCEPHALIC - Eye Exam Eye Exam: EOMI, Normal appearance Pupil Exam: NORMAL ACCOMODATION - ENT Exam ENT Exam: Mucous Membranes Moist, Normal External Ear Exam - Neck Exam Neck Exam: Full ROM. absent: Meningismus - Respiratory Exam Respiratory Exam: Rhonchi, Wheezes, NORMAL BREATHING PATTERN. absent: Respiratory Distress - Cardiovascular Exam Cardiovascular Exam: REGULAR RHYTHM, +S1, +S2 - GI/Abdominal Exam GI & Abdominal Exam: Soft, Tenderness (mild epigastric tenderness), Normal Bowel Sounds - Extremities Exam Extremities Exam: Normal Capillary Refill. absent: Calf Tenderness - Back Exam Back Exam: absent: CVA tenderness (L), CVA tenderness (R) - Neurological Exam Neurological Exam: Alert, Awake, CN II-XII Intact, Oriented x3 Neuro motor strength exam: Left Upper Extremity: 4, Right Upper Extremity: 4, Left Lower Extremity: 4, Right Lower Extremity: 4 - Psychiatric Exam Psychiatric exam: Flat Affect - Skin Skin Exam: Dry, Normal Color, Warm Assessment and Plan - Assessment and Plan (Free Text) Assessment: 76 years old female with hx of DM, HTN, A Flutter, Pancreatitis came in with 1 year old intermittent, abdominal pain which has worsened over the past 2 days. It is located below both breast ,the periumbilical region and both lower quadrant, not relieved with her home medications and increases with movement accompanied by vomiting and headache. CT abdomen showed cholelithiasis possible cholecystitis and pancreatitis. Blood test revealed elevated LFT-s , total bilirubin , lipase , WBC 21 k , lactic acid 4.5 initially. She was admitted in ICU with acute gallstone pancreatitis, cholecystitis , started on IVF IV antibiotics, pain management. Surgery, ID and GI consulted . Patient became hypotensive during admission requiring dopamine drip that now is discontinued . Clinically improving,afebrile BP better controlled, tolerating diet. Has been on IVF and IV Meropenem and Vanco for Staph coag neg. Remains afebrile and WBC trended down from 18 K -- 9K 1.Severe Sepsis -- improved secondary to acute gallstone pancreatitis and suspected cholecystitis off dopamine drip Blood cx positive for Coag negative Staph x 2 bottle: 10/03 and 10/09 Received IV Meropenem and vancomycin , afebrile and WBC trended down from 18 K -- 9.2 K No surgical intervention for now as per surgery LFT-s, bilirubin normalized Lipase level trending down on low fat diet and tolerating refusing [facility]IS As per ID- d/c IV Meropenem and cont IV Vanco x 2 more days 2.Acute gallstone Pancreatitis improved GI and surgery consulted - no surgical intervention patient to follow up with surgery as outpatient for cholecystectomy continue low fat diet 3. Acute Cholecystitis with cholelithiasis-- improved treated with IVF and IV antibiotics surgery consulted no surgical intervention for now patient clinically improving potential cholecystectomy as out patient Received Meropenem and vanco IV 4. HTN uncontrolled cont enalapril 10 mg po bid Increase Metoprolol to 25 mg bid add Norvasc 5 mg daily 5. YASEMIN 2/2 dehydration- improved 6. Hyperglycemia HbA1c 6.2 Patient is pre diabetic Continue accuchecks diet 7. Hypokalemia Replace and monitor 8. Depression and anxiety on multiple medications xanax ,trazodone, gabapentin and seroquel with flat affect , not suicidal refuses MARIS 9. A. flutter per history on lopressor 10. Dyslipidemia LDL 140 cholesterol 203 will consider starting statin before discharge 11. Gait instability/Physically Deconditioned patient walks with walker at home and was able to perform transfers PT eval patient not participating well with PT and refusing [facility] Will discuss with family need to arrange for 24 hr care at home 12. Stress ulcer prophylaxis with Pepcid 13. DVT prophylaxis with SCD patient has IVC filter in place on therapeutic Lovenox 14. RUE DVT RUE thrombus found in basilic vein (superficial), discussed with interventional radiology. Anticoagulate patient with Lovenox, and will monitor will d/c PICC line 15. Diarrhea on contact isolation C.diff sent 16. Obesity BMI 37 17. COPD, chronic - Duoneb tx prn
[2016-10-15] MEDS: Insulin Regular 100 units/ml SC SCH ×3 (06:46→16:38)
[2016-10-15] MEDS: Potassium & Sodium Phosphate PO SCH ×2 (08:34→13:34)
--- NOTE | 2016-10-15 10:31 | CP.PCM.PN ---
Objective - Vital Signs/Intake and Output Vital Signs (last 24 hours): Temp Pulse Resp BP Pulse Ox 98.0 F 70 18 158/90 H 99 10/15/16 08:00 10/15/16 08:37 10/15/16 08:00 10/15/16 08:37 10/15/16 08:00 - Medications Medications: Current Medications Acetaminophen (Tylenol 325mg Tab) 650 mg PO Q6 PRN PRN Reason: Fever >100.4 F Last Admin: 10/09/16 17:07 Dose: 650 mg Acetaminophen (Tylenol 325mg Tab) 650 mg PO Q6 PRN PRN Reason: Pain, Mild (1-3), headache Last Admin: 10/12/16 23:42 Dose: 650 mg Albuterol/Ipratropium (Duoneb 3 Mg/0.5 Mg (3 Ml) Ud) 3 ml INH RQ6 PRN PRN Reason: Shortness of Breath Last Admin: 10/09/16 05:55 Dose: 3 ml Amlodipine Besylate (Norvasc) 5 mg PO DAILY [facility] Last Admin: 10/15/16 08:37 Dose: 5 mg Docusate Sodium (Colace) 100 mg PO TID [facility] Last Admin: 10/15/16 08:34 Dose: 100 mg Duloxetine HCl (Cymbalta) 60 mg PO HS [facility] Last Admin: 10/14/16 22:17 Dose: 60 mg Enalapril Maleate (Vasotec) 10 mg PO Q12 [facility] Last Admin: 10/14/16 22:16 Dose: 10 mg Famotidine (Pepcid) 20 mg PO Q12 [facility] Last Admin: 10/15/16 08:36 Dose: 20 mg Gabapentin (Neurontin) 600 mg PO Q8 [facility] Last Admin: 10/15/16 08:34 Dose: 600 mg Hydromorphone HCl (Dilaudid) 1 mg IVP Q3 PRN PRN Reason: Pain, severe (8-10) Last Admin: 10/14/16 23:06 Dose: 1 mg Vancomycin HCl 1 gm/ Sodium (Chloride) 250 mls @ 166.667 mls/hr IVPB Q12H [facility] Last Admin: 10/15/16 08:31 Dose: 166.667 mls/hr Insulin Human Regular (Humulin R) 0 units SC ACHS PATTI PRN Reason: Protocol Last Admin: 10/15/16 06:46 Dose: Not Given Metoprolol Tartrate (Lopressor) 25 mg PO Q12 [facility] Last Admin: 10/15/16 08:34 Dose: 25 mg Potassium Phos/Sodium Phos (Neutra-Phos) 1 pkt PO TID [facility] Last Admin: 10/15/16 08:34 Dose: 1 pkt Trazodone HCl (Desyrel) 50 mg PO HS [facility] Last Admin: 10/14/16 22:16 Dose: 50 mg - Labs Labs: 10/14/16 05:25 10/14/16 05:25 PT 16.0 Seconds (9.8-13.1) H 10/06/16 04:20 INR 1.5 (0.9-1.2) H 10/06/16 04:20 APTT 31.3 Seconds (25.6-37.1) 10/06/16 04:20
[2016-10-15 12:24] LABS: BASO % 0.3 % (0.0-2.0); EOS # 0.2 K/uL (0.0-0.7); EOS % 2.1 % (0.0-4.0); HEMATOCRIT 35.2 % (34.0-47.0); LYMPH # 0.9 K/uL (1.0-4.3); LYMPH % 9.9 % (20.0-40.0); MEAN CELL VOLUME 90.9 fl (81.0-99.0); MEAN CORPUSCULAR HEMOGLOBIN 28.9 pg (27.0-31.0); MEAN CORPUSCULAR HGB CONC 31.7 g/dL (33.0-37.0); MEAN PLATELET VOLUME 8.2 fl (7.2-11.7); MONO # 1.2 K/uL (0.0-0.8); MONO % 12.3 % (0.0-10.0); NEUT # 7.2 K/uL (1.8-7.0); NEUT % 75.4 % (50.0-75.0); NRBC % 0.1 % (0.0-0.0); PLATELET COUNT 358 K/uL (130-400); RED CELL DISTRIBUTION WIDTH 13.4 % (11.5-14.5); WHITE BLOOD COUNT 9.5 K/uL (4.8-10.8)
[2016-10-15 12:45] LABS: ALB/GLOB RATIO 0.8 (1.0-2.1); ALKALINE PHOSPHATASE 81 U/L (38-126); ALT/SGPT 26 U/L (9-52); AST/SGOT 32 U/L (14-36); BILIRUBIN,TOTAL 0.5 mg/dl (0.2-1.3); BLOOD UREA NITROGEN 6 mg/dl (7-17); CALCIUM 8.5 mg/dL (8.4-10.2); CARBON DIOXIDE 38 mmol/L (22-30); CHLORIDE 95 mmol/L (98-107); GFR AFRICAN-AMERICAN > 60; GLUCOSE,RANDOM 128 mg/dL (65-105); LIPASE 630 U/L (23-300); POTASSIUM 3.4 MMOL/L (3.6-5.0); SODIUM 140 mmol/l (132-148); TOTAL PROTEIN 7.4 G/DL (6.3-8.2)
--- NOTE | 2016-10-15 12:47 | PQF GENQUE ---
This form is a permanent part of the medical record 10/15/16 Dr. Ornelas, Please clarify the relationship, if any, between the thrombus/DVT in the right basilic vein surrounding the PICC line AND the PICC Line Are the conditions: Due to or associated with each other Unrelated to each other Clinically unable to determine Unknown R basilic vein PICC line inserted on 10/07/16. Venous Doppler performed on 10/07 : Findings: In situ right sided PICC line with thrombus/DVT in the right basilic vein surrounding the PICC line Clarification of your documentation is requested to better reflect the severity of illness and intensity of treatment of your patient. PHYSICIAN'S RESPONSE Please clarify the relationship, if any, between the thrombus/DVT in the right basilic vein surrounding the PICC line AND the PICC Line Clinically Unable to determine Are the conditions: [] Due to or associated with each other [] Unrelated to each other [] Clinically unable to determine [] Unknown Based on your medical judgment of the clinical indicators outlined above please clarify the following: [] Practitioner response [] If unable to determine, please check the box, sign and date. Present On Admission (POA) Indicator: [] Present at the time of admission [] Not present at the time of admission [] Clinically Undetermined In responding to this query, please exercise your independent professional judgment. The fact that a question is asked does not imply that any particular answer is desired or expected. Thank you for your clarification on this documentation. If you have any questions please call:[phone] * Thank you, Melissa Barton RN [facility]
[2016-10-15] MEDS ORDERED: Potassium Chloride 20 mEq ER Tab PO ONE (13:30)
[2016-10-15 13:37] LABS: EOSINOPHIL 1 % (0-7); NEUTROPHIL 77 % (42-75); TOTAL CELLS COUNTED 100
--- NOTE | 2016-10-15 14:29 | CP.PCM.DIS ---
Provider - Provider Date of Admission: 10/04/16 01:52 Attending physician: Ibrahima Gardner Primary care physician: Dr Roderick Chavez Consults: 10/04/16 08:00 Nursing Referral for Wound Care Routine Comment: Physician Instructions: Reason For Exam: INACTIVITY Time Spent in preparation of Discharge (in minutes): 40 Diagnosis - Discharge Diagnosis (1) Acute cholecystitis Status: Acute (2) Pancreatitis Status: Acute (3) Severe sepsis Status: Acute (4) Severe sepsis with acute organ dysfunction due to coagulase-negative Staphylococcus species Status: Acute (5) Physical deconditioning Status: Acute (6) HTN (hypertension) Status: Chronic (7) COPD (chronic obstructive pulmonary disease) Status: Chronic (8) Severe obesity with body mass index (BMI) of 36.0 to 36.9 Status: Chronic Hospital Course - Lab Results Lab Results: Micro Results 10/13/16 17:12 Blood-Venous Blood Culture - Preliminary NO GROWTH AFTER 24 HOURS 10/13/16 17:10 Blood-Venous Blood Culture - Preliminary NO GROWTH AFTER 24 HOURS 10/09/16 10:15 Blood Blood Culture - Final NO GROWTH AFTER 5 DAYS 10/09/16 10:15 Blood Gram Stain - Final TEST NOT PERFORMED 10/09/16 10:05 Blood S.aureus & Coag-Neg Staph PNA FISH - Final 10/09/16 10:05 Blood Blood Culture - Final Coagulase Neg Staphylococcus 10/09/16 10:05 Blood Gram Stain - Final 10/10/16 15:00 Nose MRSA Culture (Admit) - Final MRSA NOT DETECTED 10/05/16 16:45 Blood-Venous Blood Culture - Final NO GROWTH AFTER 5 DAYS 10/05/16 16:45 Blood-Venous Gram Stain - Final TEST NOT PERFORMED 10/05/16 16:45 Blood-Venous Blood Culture - Final NO GROWTH AFTER 5 DAYS 10/05/16 16:45 Blood-Venous Gram Stain - Final 10/04/16 17:00 Blood-Venous Blood Culture - Final NO GROWTH AFTER 5 DAYS 10/04/16 17:00 Blood-Venous Gram Stain - Final 10/04/16 17:00 Blood-Venous Blood Culture - Final NO GROWTH AFTER 5 DAYS 10/04/16 17:00 Blood-Venous Gram Stain - Final TEST NOT PERFORMED 10/04/16 15:00 Nose MRSA Culture (Admit) - Final MRSA NOT DETECTED Most Recent Lab Values WBC 9.5 K/uL (4.8-10.8) 10/15/16 12:17 RBC 3.87 Mil/uL (3.80-5.20) 10/15/16 12:17 Hgb 11.2 g/dL (12.0-16.0) L 10/15/16 12:17 Hct 35.2 % (34.0-47.0) 10/15/16 12:17 MCV 90.9 fl (81.0-99.0) 10/15/16 12:17 MCH 28.9 pg (27.0-31.0) 10/15/16 12:17 MCHC 31.7 g/dL (33.0-37.0) L 10/15/16 12:17 RDW 13.4 % (11.5-14.5) 10/15/16 12:17 Plt Count 358 K/uL (130-400) D 10/15/16 12:17 MPV 8.2 fl (7.2-11.7) 10/15/16 12:17 Neut % (Auto) 75.4 % (50.0-75.0) H 10/15/16 12:17 Lymph % (Auto) 9.9 % (20.0-40.0) L 10/15/16 12:17 Gilchrist % (Auto) 12.3 % (0.0-10.0) H 10/15/16 12:17 Eos % (Auto) 2.1 % (0.0-4.0) 10/15/16 12:17 Baso % (Auto) 0.3 % (0.0-2.0) 10/15/16 12:17 Neut # 7.2 K/uL (1.8-7.0) H 10/15/16 12:17 Lymph # 0.9 K/uL (1.0-4.3) L 10/15/16 12:17 Gilchrist # 1.2 K/uL (0.0-0.8) H 10/15/16 12:17 Eos # 0.2 K/uL (0.0-0.7) 10/15/16 12:17 Baso # 0.0 K/uL (0.0-0.2) 10/15/16 12:17 Neutrophils % (Manual) 77 % (42-75) H 10/15/16 12:17 Band Neutrophils % 2 % (0-2) 10/06/16 04:20 Lymphocytes % (Manual) 9 % (20-50) L 10/15/16 12:17 Reactive Lymphs % 1 % (0-0) H 10/05/16 05:40 Monocytes % (Manual) 13 % (0-10) H 10/15/16 12:17 Eosinophils % (Manual) 1 % (0-7) 10/15/16 12:17 Basophils % (Manual) 1 % (0-2) 10/11/16 06:00 Platelet Estimate Normal (NORMAL) 10/15/16 12:17 Large Platelets Present 10/11/16 06:00 RBC Morphology Normal (NORMAL) 10/06/16 04:20 Poikilocytosis (manual Slight 10/11/16 06:00 Anisocytosis (manual) Slight 10/11/16 06:00 PT 16.0 Seconds (9.8-13.1) H 10/06/16 04:20 INR 1.5 (0.9-1.2) H 10/06/16 04:20 APTT 31.3 Seconds (25.6-37.1) 10/06/16 04:20 pCO2 35 mm/Hg (35-45) 10/05/16 14:49 pO2 100 mm/Hg (80-100) 10/05/16 14:49 HCO3 21.9 mmol/L (21-28) 10/05/16 14:49 ABG pH 7.38 (7.35-7.45) 10/05/16 14:49 ABG Total CO2 21.8 mmol/L (22-28) L 10/05/16 14:49 ABG O2 Saturation 98.3 % (95-98) H 10/05/16 14:49 ABG O2 Content 17.6 ML/dL (15-23) 10/05/16 14:49 ABG Base Excess -3.8 mmol/L (-2.0-3.0) L 10/05/16 14:49 ABG Hemoglobin 13.1 g/dL (11.7-17.4) 10/05/16 14:49 ABG Carboxyhemoglobin 1.3 % (0.5-1.5) 10/05/16 14:49 POC ABG HHb (Measured) 1.6 % (0.0-5.0) 10/05/16 14:49 ABG Methemoglobin 1.9 % (0.0-3.0) 10/05/16 14:49 ABG O2 Capacity 17.9 mL/dL (16-24) 10/05/16 14:49 Mahesh Test Yes 10/05/16 14:49 VBG pH 7.34 (7.32-7.43) 10/03/16 22:47 VBG pCO2 55 mmHg (40-60) 10/03/16 22:47 VBG HCO3 24.8 mmol/L 10/03/16 22:47 VBG Total CO2 31.4 mmol/L (22-28) H 10/03/16 22:47 VBG O2 Sat (Calc) 26.2 % (40-65) L 10/03/16 22:47 VBG Base Excess 2.6 mmol/L (0.0-2.0) H 10/03/16 22:47 VBG Potassium 6.5 mmol/L (3.6-5.2) H* 10/03/16 22:47 A-a O2 Difference 6.0 mm/Hg 10/05/16 14:49 Hgb O2 Saturation 95.2 % (95.0-98.0) 10/05/16 14:49 Sodium 133.0 mmol/L (132-148) 10/03/16 22:47 Chloride 95.0 mmol/L (98-107) L 10/03/16 22:47 Glucose 203 mg/dL (65-105) H 10/03/16 22:47 Lactate 4.5 mmol/L (0.7-2.1) H* 10/03/16 22:47 FiO2 21.0 % 10/05/16 14:49 Blood Gas Comments 2l/m'nc rr 10/04/16 10:00 Crit Value Called To mau Elam 10/03/16 22:47 Crit Value Called By Rangel 10/04/16 10:00 Crit Value Read Back N 10/04/16 10:00 Blood Gas Notified Time 5618 10/03/16 22:47 Sodium 140 mmol/l (132-148) 10/15/16 12:17 Potassium 3.4 MMOL/L (3.6-5.0) L 10/15/16 12:17 Chloride 95 mmol/L (98-107) L 10/15/16 12:17 Carbon Dioxide 38 mmol/L (22-30) H 10/15/16 12:17 Anion Gap 10 (10-20) 10/15/16 12:17 BUN 6 mg/dl (7-17) L 10/15/16 12:17 Creatinine 0.5 mg/dL (0.7-1.2) L 10/15/16 12:17 Est GFR ( Amer) > 60 10/15/16 12:17 Est GFR (Non-Af Amer) > 60 10/15/16 12:17 POC Glucose (mg/dL) 121 mg/dL (65-110) H 10/15/16 05:46 Random Glucose 128 mg/dL (65-105) H 10/15/16 12:17 Hemoglobin A1c 6.3 % (4.2-6.5) 10/04/16 06:00 Lactic Acid 1.9 MMOL/L (0.7-2.1) 10/04/16 06:30 Calcium 8.5 mg/dL (8.4-10.2) 10/15/16 12:17 Phosphorus 3.0 mg/dl (2.5-4.5) 10/11/16 06:00 Magnesium 1.5 MG/DL (1.6-2.3) L 10/11/16 06:00 Total Bilirubin 0.5 mg/dl (0.2-1.3) 10/15/16 12:17 AST 32 U/L (14-36) 10/15/16 12:17 ALT 26 U/L (9-52) 10/15/16 12:17 Alkaline Phosphatase 81 U/L (38-126) 10/15/16 12:17 Troponin I 0.0240 ng/mL (0.00-0.120) 10/03/16 21:53 Total Protein 7.4 G/DL (6.3-8.2) 10/15/16 12:17 Albumin 3.3 g/dL (3.5-5.0) L 10/15/16 12:17 Globulin 4.0 gm/dL (2.2-3.9) H 10/15/16 12:17 Albumin/Globulin Ratio 0.8 (1.0-2.1) L 10/15/16 12:17 Triglycerides 72 mg/DL (0-149) 10/04/16 06:00 Cholesterol 203 mg/dL (0-199) H 10/04/16 06:00 LDL Cholesterol Direct 140 mg/dL (0-129) H 10/04/16 06:00 HDL Cholesterol 41 MG/DL (30-70) 10/04/16 06:00 Lipase 630 U/L (23-300) H 10/15/16 12:17 Venous Blood Potassium 6.5 mmol/L (3.6-5.2) H* 10/03/16 22:47 Urine Color Yellow (YELLOW) 10/03/16 22:59 Urine Clarity Slighty-cloudy (Clear) 10/03/16 22:59 Urine pH 7.0 (5.0-8.0) 10/03/16 22:59 Ur Specific [place] 1.023 (1.003-1.030) 10/03/16 22:59 Urine Protein >=500 mg/dL (NEGATIVE) 10/03/16 22:59 Urine Glucose (UA) 150 mg/dL (Normal) 10/03/16 22:59 Urine Ketones Trace mg/dL (NEGATIVE) 10/03/16 22:59 Urine Blood Small (NEGATIVE) 10/03/16 22:59 Urine Nitrate Negative (NEGATIVE) 10/03/16 22:59 Urine Bilirubin Negative (NEGATIVE) 10/03/16 22:59 Urine Urobilinogen 0.2-1.0 mg/dL (0.2-1.0) 10/03/16 22:59 Ur Leukocyte Esterase Neg Marco A/uL (Negative) 10/03/16 22:59 Urine RBC (Auto) 4 /hpf (0-3) H 10/03/16 22:59 Urine Microscopic WBC 2 /hpf (0-5) 10/03/16 22:59 Ur Squamous Epith Cells 3 /hpf (0-5) 10/03/16 22:59 Urine Bacteria Mod (<OCC) H 10/03/16 22:59 Granular Casts (Auto) 1 /lpf (0-1) 10/03/16 22:59 Vancomycin Trough 10.2 ug/mL (5.0-10.0) H 10/09/16 05:00 C. difficile Ag & Toxin Negative (NEGATIVE) 10/15/16 12:02 - Hospital Course Hospital Course: 76 years old female with hx of DM, HTN, A Flutter, Pancreatitis came in with 1 year old intermittent, abdominal pain which has worsened over the past 2 days. It is located below both breast ,the periumbilical region and both lower quadrant, not relieved with her home medications and increases with movement accompanied by vomiting and headache. CT abdomen showed cholelithiasis possible cholecystitis and pancreatitis. Blood test revealed elevated LFT-s , total bilirubin , lipase , WBC 21 k , lactic acid 4.5 initially. She was admitted in ICU with acute gallstone pancreatitis, cholecystitis , started on IVF IV antibiotics, pain management. Surgery, ID and GI consulted . Patient became hypotensive during admission requiring dopamine drip that now is discontinued . Clinically improving,afebrile BP better controlled, tolerating diet. Has been on IVF and IV Meropenem and Vanco for Staph coag neg. Remains afebrile and WBC trended down from 18 K -- 9K 1.Severe Sepsis -- improved secondary to acute gallstone pancreatitis and suspected cholecystitis came in hypotensive - off dopamine drip Blood cx positive for Coag negative Staph x 2 bottle: 10/03 and 10/09 Received IV Meropenem and vancomycin , afebrile and WBC trended down from 18 K -- 9.2 K No surgical intervention for now as per surgery LFT-s, bilirubin normalized Lipase level trending down on low fat diet and tolerating refusing MARIS completed IV Meropenem and Vanco 2.Acute gallstone Pancreatitis improved GI and surgery consulted - no surgical intervention patient to follow up with surgery as outpatient for cholecystectomy continue low fat diet 3. Acute Cholecystitis with cholelithiasis-- improved treated with IVF and IV antibiotics surgery consulted no surgical intervention for now patient clinically improving potential cholecystectomy as out patient Received Meropenem and vanco IV 4. HTN uncontrolled cont enalapril 10 mg po bid Increase Metoprolol to 25 mg bid Increase Norvasc 10 mg daily 5. YASEMIN 2/2 dehydration- improved 6. Hyperglycemia HbA1c 6.2 Patient is pre diabetic Continue accuchecks diet 7. Hypokalemia Replace and monitor 8. Depression and anxiety on multiple medications xanax ,trazodone, gabapentin and seroquel with flat affect , not suicidal refuses MARIS 9. A. flutter per history on lopressor 10. Dyslipidemia LDL 140 cholesterol 203 will consider starting statin before discharge 11. Gait instability/Physically Deconditioned patient walks with walker at home and was able to perform transfers at present she is physically deconditioned PT eval - rec MARIS, pt refused however now agrees to go to TCU 12. Stress ulcer prophylaxis with Pepcid 13. DVT prophylaxis patient has IVC filter in place on therapeutic Lovenox 14. RUE DVT RUE thrombus found in basilic vein (superficial), discussed with interventional radiology. Anticoagulate patient with Lovenox, and will monitor will d/c PICC line 15. Diarrhea prob sec to abx stool C diff negative 16. Obesity BMI 37 17. COPD, chronic - Duoneb tx prn Discharge Exam - Head Exam Head Exam: NORMAL INSPECTION, NORMOCEPHALIC - Eye Exam Eye Exam: EOMI, Normal appearance Pupil Exam: NORMAL ACCOMODATION - ENT Exam ENT Exam: Mucous Membranes Moist, Normal External Ear Exam - Neck Exam Neck exam: Full Rom - Respiratory Exam Respiratory Exam: NORMAL BREATHING PATTERN. absent: Respiratory Distress Additional comments: sl wheeze - Cardiovascular Exam Cardiovascular Exam: REGULAR RHYTHM, +S1, +S2 - GI/Abdominal Exam GI & Abdominal Exam: Normal Bowel Sounds, Soft. absent: Tenderness - Extremities Exam Extremities exam: normal capillary refill, pedal pulses present Additional comments: no calf tenderness - Back Exam Back exam: absent: CVA tenderness (L), CVA tenderness (R) - Neurological Exam Neurological exam: Alert, CN II-XII Intact, Reflexes Normal Additional comments: oriented to person and place - Psychiatric Exam Psychiatric exam: Flat Affect - Skin Skin Exam: Dry, Normal Color, Warm Discharge Plan - Follow Up Plan Condition: GOOD Disposition: HOME/ ROUTINE Additional Instructions: d/c to TCU Referrals: Roderick Coffey MD [Medical Doctor] -
[2016-10-15 15:52] VITALS: BP 175/94; PULSE 78; RESP 20; TEMP 98.3; O2SAT 99
[2016-10-15] MEDS ORDERED: Enoxaparin 100 mg Syringe SC SCH (21:00)
--- NOTE | 2016-10-16 09:57 | CP.PCM.HP ---
History of Present Illness - History of Present Illness History of Present Illness: cc: deconditioned 76 years old female with hx of DM, HTN, A Flutter, Pancreatitis came in with 1 year old intermittent, abdominal pain which has worsened over the past 2 days. It is located below both breast ,the periumbilical region and both lower quadrant, not relieved with her home medications and increases with movement accompanied by vomiting and headache. CT abdomen showed cholelithiasis possible cholecystitis and pancreatitis. Blood test revealed elevated LFT-s , total bilirubin , lipase , WBC 21 k , lactic acid 4.5 initially. She was admitted in ICU with acute gallstone pancreatitis, cholecystitis , started on IVF IV antibiotics, pain management. Surgery, ID and GI consulted . Patient became hypotensive during admission requiring dopamine drip that now is discontinued . Clinically improving,afebrile BP better controlled, tolerating diet. Has been on IVF and IV Meropenem and Vanco for Staph coag neg. Remains afebrile and WBC trended down from 18 K -- 9K. TCU for further rehab reconditioning. 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 normal rhythm. NO MRG LUNG: CTAB, NO WRR ABD: SOFT BSX4 NT ND NO HSM NO MASS EXT: WARM, WELL PERFUSED NEURO: AA0X3, STRENGTH AND SENSATION EQUAL AND BILATERAL SKIN: WARM DRY PSYCH: NORMAL MOOD NORMAL AFFECT 10/15/16 12:17 10/15/16 12:17 76 years old female with hx of DM, HTN, A Flutter, Pancreatitis came in with 1 year old intermittent, abdominal pain which has worsened over the past 2 days. It is located below both breast ,the periumbilical region and both lower quadrant, not relieved with her home medications and increases with movement accompanied by vomiting and headache. CT abdomen showed cholelithiasis possible cholecystitis and pancreatitis. Blood test revealed elevated LFT-s , total bilirubin , lipase , WBC 21 k , lactic acid 4.5 initially. She was admitted in ICU with acute gallstone pancreatitis, cholecystitis , started on IVF IV antibiotics, pain management. Surgery, ID and GI consulted . Patient became hypotensive during admission requiring dopamine drip that now is discontinued . Clinically improving,afebrile BP better controlled, tolerating diet. Has been on IVF and IV Meropenem and Vanco for Staph coag neg. Remains afebrile and WBC trended down from 18 K -- 9K 1.Severe Sepsis -- improved secondary to acute gallstone pancreatitis and suspected cholecystitis came in hypotensive - off dopamine drip Blood cx positive for Coag negative Staph x 2 bottle: 10/03 and 10/09 Received IV Meropenem and vancomycin , afebrile and WBC trended down from 18 K -- 9.2 K No surgical intervention for now as per surgery LFT-s, bilirubin normalized Lipase level trending down on low fat diet and tolerating refusing MARIS completed IV Meropenem and Vanco 2.Acute gallstone Pancreatitis improved GI and surgery consulted - no surgical intervention patient to follow up with surgery as outpatient for cholecystectomy continue low fat diet 3. Acute Cholecystitis with cholelithiasis-- improved treated with IVF and IV antibiotics surgery consulted no surgical intervention for now patient clinically improving potential cholecystectomy as out patient Received Meropenem and vanco IV 4. HTN uncontrolled cont enalapril 10 mg po bid Increase Metoprolol to 25 mg bid Increase Norvasc 10 mg daily 5. YASEMIN 2/2 dehydration- improved 6. Hyperglycemia HbA1c 6.2 Patient is pre diabetic Continue accuchecks diet 7. Hypokalemia Replace and monitor 8. Depression and anxiety on multiple medications xanax ,trazodone, gabapentin and seroquel with flat affect , not suicidal refuses MARIS 9. A. flutter per history on lopressor 10. Dyslipidemia LDL 140 cholesterol 203 will consider starting statin before discharge 11. Gait instability/Physically Deconditioned patient walks with walker at home and was able to perform transfers at present she is physically deconditioned PT eval - rec MARIS, pt refused however now agrees to go to TCU 12. Stress ulcer prophylaxis with Pepcid 13. DVT prophylaxis patient has IVC filter in place on therapeutic Lovenox 14. RUE DVT RUE thrombus found in basilic vein (superficial), discussed with interventional radiology. Anticoagulate patient with Lovenox, and will monitor will d/c PICC line 15. Diarrhea prob sec to abx stool C diff negative 16. Obesity BMI 37 17. COPD, chronic - Duoneb tx prn Present on Admission - Present on Admission Any Indicators Present on Admission: No Past Patient History - Infectious Disease Hx of Infectious Diseases: None - Tetanus Immunizations Tetanus Immunization: Unknown - Past Medical History & Family History Past Medical History?: Yes - Past Social History Alcohol: None Drugs: Denies - CARDIAC Hx Cardia Arrhythmia: Yes (Flutter) Hx Hypertension: Yes Hx Pacemaker: No Hx Peripheral Edema: Yes (+2) - PULMONARY Hx Bronchitis: Yes Hx Chronic Obstructive Pulmonary Disease (COPD): Yes Hx Pneumonia: Yes (5 YRS AGO) - HEENT Hx Cataracts: Yes - RENAL Hx Chronic Kidney Disease: No - ENDOCRINE/METABOLIC Hx Diabetes Mellitus Type 2: Yes - HEMATOLOGICAL/ONCOLOGICAL Hx Anemia: Yes Hx Human Immunodeficiency Virus (HIV): No - INTEGUMENTARY Hx Dermatological Problems: No - MUSCULOSKELETAL/RHEUMATOLOGICAL Hx Arthritis: Yes Hx Fractures: Yes Hx Osteoporosis: Yes - GASTROINTESTINAL Hx Pancreatitis: Yes - GENITOURINARY/GYNECOLOGICAL Hx Sexually Transmitted Disorders: No - PSYCHIATRIC Hx Anxiety: Yes Hx Depression: Yes - SURGICAL HISTORY Hx Carotid Endarterectomy: Yes - ANESTHESIA Hx Anesthesia: Yes Hx Anesthesia Reactions: No Hx Malignant Hyperthermia: No Meds Home Medications: Home Medication List Medication Instructions Recorded Confirmed Type Acetaminophen [Tylenol 325mg tab] 650 mg PO Q6 PRN tab 10/15/16 Rx Acetaminophen [Tylenol 325mg tab] 650 mg PO Q6 PRN tab 10/15/16 Rx Albuterol/Ipratropium [Duoneb 3 3 ml INH RQ6 PRN 10/15/16 Rx mg/0.5 mg (3 ml) UD] Enalapril Maleate [Vasotec] 10 mg PO Q12 tab 10/15/16 Rx Famotidine [Pepcid] 20 mg PO Q12 tab 10/15/16 Rx Insulin Human Regular [HumuLIN R] 0 units SC ACHS ml 10/15/16 Rx Metoprolol Tartrate [Lopressor] 25 mg PO Q12 tab 10/15/16 Rx amLODIPine [Norvasc] 10 mg PO DAILY tab 10/15/16 Rx Allergies/Adverse Reactions: Allergies Allergy/AdvReac Type Severity Reaction Status Date / Time Penicillins Allergy RASH Verified 10/15/16 18:18 Results - Vital Signs Recent Vital Signs: Last Vital Signs Temp 98.3 F 10/15/16 15:51 Pulse 78 10/15/16 15:51 Resp 20 10/15/16 15:51 BP 175/94 H 10/15/16 15:51 Pulse Ox 99 10/15/16 15:51 - Labs Result Diagrams: 10/15/16 12:17 10/15/16 12:17 Labs: Laboratory Results - last 24 hr 10/15/16 10/15/16 10/15/16 11:14 12:02 12:17 WBC 9.5 RBC 3.87 Hgb 11.2 L Hct 35.2 MCV 90.9 MCH 28.9 MCHC 31.7 L RDW 13.4 Plt Count 358 D MPV 8.2 Neut % (Auto) 75.4 H Lymph % (Auto) 9.9 L [place] % (Auto) 12.3 H Eos % (Auto) 2.1 Baso % (Auto) 0.3 Neut # 7.2 H Lymph # 0.9 L [place] # 1.2 H Eos # 0.2 Baso # 0.0 Neutrophils % (Manual) 77 H Lymphocytes % (Manual) 9 L Monocytes % (Manual) 13 H Eosinophils % (Manual) 1 Platelet Estimate Normal Sodium Potassium Chloride Carbon Dioxide Anion Gap BUN Creatinine Est GFR ( Amer) Est GFR (Non-Af Amer) POC Glucose (mg/dL) 139 H Random Glucose Calcium Total Bilirubin AST ALT Alkaline Phosphatase Total Protein Albumin Globulin Albumin/Globulin Ratio Lipase C. difficile Ag & Toxin Negative 10/15/16 12:17 WBC RBC Hgb Hct MCV MCH MCHC RDW Plt Count MPV Neut % (Auto) Lymph % (Auto) [place] % (Auto) Eos % (Auto) Baso % (Auto) Neut # Lymph # [place] # Eos # Baso # Neutrophils % (Manual) Lymphocytes % (Manual) Monocytes % (Manual) Eosinophils % (Manual) Platelet Estimate Sodium 140 Potassium 3.4 L Chloride 95 L Carbon Dioxide 38 H Anion Gap 10 BUN 6 L Creatinine 0.5 L Est GFR ( Amer) > 60 Est GFR (Non-Af Amer) > 60 POC Glucose (mg/dL) Random Glucose 128 H Calcium 8.5 Total Bilirubin 0.5 AST 32 ALT 26 Alkaline Phosphatase 81 Total Protein 7.4 Albumin 3.3 L Globulin 4.0 H Albumin/Globulin Ratio 0.8 L Lipase 630 H C. difficile Ag & Toxin
== END 2016-10-15 17:57 | DRG 438 ==
LOC: H.ER 20:46 → H.ERHOLD 10-04 01:52 → H.ICU/CCU 10-04 03:15 → H.TEL 10-10 13:33
PROVIDERS: ADMIT Internal Medicine; ATTEND Internal Medicine
PROC: 06HM33Z Insertion of Infusion Device into Right Femoral Vein, Percutaneous Approach (ICD-10-PCS; 2016-10-04)
PROC: 02HV33Z Insertion of Infusion Device into Superior Vena Cava, Percutaneous Approach (ICD-10-PCS; principal; 2016-10-05)
DX: K85.10 Biliary acute pancreatitis without necrosis or infection (principal); R65.21 Severe sepsis with septic shock; A41.1 Sepsis due to other specified staphylococcus; G93.41 Metabolic encephalopathy; N17.9 Acute kidney failure, unspecified; I48.92 Unspecified atrial flutter; E11.65 Type 2 diabetes mellitus with hyperglycemia; K80.00 Calculus of gallbladder with acute cholecystitis without obstruction; F33.1 Major depressive disorder, recurrent, moderate; I82.611 Acute embolism and thrombosis of superficial veins of right upper extremity; E86.0 Dehydration; E87.6 Hypokalemia; Z88.0 Allergy status to penicillin; M79.7 Fibromyalgia; M81.0 Age-related osteoporosis without current pathological fracture; G89.29 Other chronic pain; K21.9 Gastro-esophageal reflux disease without esophagitis; E78.5 Hyperlipidemia, unspecified; D72.829 Elevated white blood cell count, unspecified; R09.02 Hypoxemia; F41.9 Anxiety disorder, unspecified; K86.1 Other chronic pancreatitis; R26.89 Other abnormalities of gait and mobility; E83.42 Hypomagnesemia; I10 Essential (primary) hypertension; J44.9 Chronic obstructive pulmonary disease, unspecified; E66.9 Obesity, unspecified; Z68.36 Body mass index [BMI] 36.0-36.9, adult; R19.7 Diarrhea, unspecified

== ENCOUNTER 2016-10-15 17:57 | Inpatient (IN) | payer OTHER, BC ==
[2016-10-15 18:19] VITALS: BMI 35.2
[2016-10-15] MEDS ORDERED: Albuterol-Ipratrop 3 mg / 0.5 (3 ml) UD INH PRN (19:00)
[2016-10-15] MEDS: Oxycodone/Acetaminophen 5/325 mg Tab PO PRN (20:46)
[2016-10-15] MEDS: Enoxaparin 100 mg Syringe SC SCH (20:55)
[2016-10-15] MEDS ORDERED: Insulin Regular 100 units/ml SC SCH (22:00)
[2016-10-15 22:52] VITALS: RESP 20
[2016-10-16] MEDS: Oxycodone/Acetaminophen 5/325 mg Tab PO PRN ×3 (04:44→22:33)
[2016-10-16 07:17] LABS: BASO # 0.1 K/uL (0.0-0.2); BASO % 0.7 % (0.0-2.0); EOS # 0.2 K/uL (0.0-0.7); EOS % 1.8 % (0.0-4.0); HEMATOCRIT 33.3 % (34.0-47.0); LYMPH # 1.4 K/uL (1.0-4.3); LYMPH % 15.9 % (20.0-40.0); MEAN CORPUSCULAR HEMOGLOBIN 29.9 pg (27.0-31.0); MEAN CORPUSCULAR HGB CONC 33.6 g/dL (33.0-37.0); MEAN PLATELET VOLUME 7.9 fl (7.2-11.7); MONO # 1.3 K/uL (0.0-0.8); MONO % 15.3 % (0.0-10.0); NEUT # 5.7 K/uL (1.8-7.0); NEUT % 66.3 % (50.0-75.0); RED CELL DISTRIBUTION WIDTH 13.6 % (11.5-14.5); WHITE BLOOD COUNT 8.6 K/uL (4.8-10.8)
[2016-10-16 07:29] LABS: ALB/GLOB RATIO 0.8 (1.0-2.1); ALKALINE PHOSPHATASE 76 U/L (38-126); ALT/SGPT 21 U/L (9-52); AST/SGOT 26 U/L (14-36); BILIRUBIN,TOTAL 0.6 mg/dl (0.2-1.3); BLOOD UREA NITROGEN 7 mg/dl (7-17); CALCIUM 8.6 mg/dL (8.4-10.2); CARBON DIOXIDE 33 mmol/L (22-30); CHLORIDE 98 mmol/L (98-107); GFR AFRICAN-AMERICAN > 60; GLUCOSE,RANDOM 139 mg/dL (65-105); POTASSIUM 3.3 MMOL/L (3.6-5.0); SODIUM 140 mmol/l (132-148); TOTAL PROTEIN 7.4 G/DL (6.3-8.2)
[2016-10-16 07:45] LABS: PARTIAL THROMBOPLASTIN TIME 38.8 Seconds (25.6-37.1)
[2016-10-16] MEDS: Enoxaparin 100 mg Syringe SC SCH ×2 (09:41→21:45)
--- NOTE | 2016-10-16 11:28 | CP.PCM.HP ---
History of Present Illness - History of Present Illness History of Present Illness: cc: deconditioned 76 years old female with hx of DM, HTN, A Flutter, Pancreatitis came in with 1 year old intermittent, abdominal pain which has worsened over the past 2 days. It is located below both breast ,the periumbilical region and both lower quadrant, not relieved with her home medications and increases with movement accompanied by vomiting and headache. CT abdomen showed cholelithiasis possible cholecystitis and pancreatitis. Blood test revealed elevated LFT-s , total bilirubin , lipase , WBC 21 k , lactic acid 4.5 initially. She was admitted in ICU with acute gallstone pancreatitis, cholecystitis , started on IVF IV antibiotics, pain management. Surgery, ID and GI consulted . Patient became hypotensive during admission requiring dopamine drip that now is discontinued . Clinically improving,afebrile BP better controlled, tolerating diet. Has been on IVF and IV Meropenem and Vanco for Staph coag neg. Remains afebrile and WBC trended down from 18 K -- 9K. TCU for further rehab reconditioning. 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 normal rhythm. NO MRG LUNG: CTAB, NO WRR ABD: SOFT BSX4 NT ND NO HSM NO MASS EXT: WARM, WELL PERFUSED NEURO: AA0X3, STRENGTH AND SENSATION EQUAL AND BILATERAL SKIN: WARM DRY PSYCH: NORMAL MOOD NORMAL AFFECT 10/16/16 06:50 10/16/16 06:50 Allergies Penicillins Allergy (Verified 10/15/16 18:18) RASH Height & Weight Height 5 ft 6 in Weight 218 lb Start Date/Time Active Medications 10/15/16 19:00 Acetaminophen [Tylenol 325mg tab] 650 mg PO Q6 PRN Acetaminophen [Tylenol 325mg tab] 650 mg PO Q6 PRN Albuterol/Ipratropium [Duoneb 3 mg/0.5 mg (3 ml) UD] 3 ml INH RQ6 PRN 10/15/16 19:14 oxyCODONE/Acetaminophen [Percocet 5/325 mg Tab] 1 tab PO Q6 PRN 10/15/16 21:00 Enalapril Maleate [Vasotec] 10 mg PO Q12 Enoxaparin [Lovenox] 100 mg SC Q12 Anticoagulation Clinical Indication: Treatment for DVT/PE Famotidine [Pepcid] 20 mg PO Q12 Metoprolol Tartrate [Lopressor] 25 mg PO Q12 10/15/16 22:00 DULoxetine [Cymbalta] 60 mg PO HS traZODone [Desyrel] 50 mg PO HS 10/16/16 09:00 Gabapentin [Neurontin] 600 mg PO TID amLODIPine [Norvasc] 10 mg PO DAILY 76 years old female with hx of DM, HTN, A Flutter, Pancreatitis came in with 1 year old intermittent, abdominal pain which has worsened over the past 2 days. It is located below both breast ,the periumbilical region and both lower quadrant, not relieved with her home medications and increases with movement accompanied by vomiting and headache. CT abdomen showed cholelithiasis possible cholecystitis and pancreatitis. Blood test revealed elevated LFT-s , total bilirubin , lipase , WBC 21 k , lactic acid 4.5 initially. She was admitted in ICU with acute gallstone pancreatitis, cholecystitis , started on IVF IV antibiotics, pain management. Surgery, ID and GI consulted . Patient became hypotensive during admission requiring dopamine drip that now is discontinued . Clinically improving,afebrile BP better controlled, tolerating diet. Has been on IVF and IV Meropenem and Vanco for Staph coag neg. Remains afebrile and WBC trended down from 18 K -- 9K TCU for rehab for deconditioning 1.Severe Sepsis -- improved secondary to acute gallstone pancreatitis and suspected cholecystitis came in hypotensive - off dopamine drip Blood cx positive for Coag negative Staph x 2 bottle: 10/03 and 10/09 Received IV Meropenem and vancomycin , afebrile and WBC trended down from 18 K -- 9.2 K No surgical intervention for now as per surgery LFT-s, bilirubin normalized Lipase level trending down on low fat diet and tolerating refusing MARIS completed IV Meropenem and Vanco 2.Acute gallstone Pancreatitis improved GI and surgery consulted - no surgical intervention patient to follow up with surgery as outpatient for cholecystectomy continue low fat diet 3. Acute Cholecystitis with cholelithiasis-- improved treated with IVF and IV antibiotics surgery consulted no surgical intervention for now patient clinically improving potential cholecystectomy as out patient Received Meropenem and vanco IV 4. HTN uncontrolled cont enalapril 10 mg po bid Increase Metoprolol to 25 mg bid Increase Norvasc 10 mg daily 5. YASEMIN 2/2 dehydration- improved 6. Hyperglycemia HbA1c 6.2 Patient is pre diabetic Continue accuchecks diet 7. Hypokalemia Replace and monitor 8. Depression and anxiety on multiple medications xanax ,trazodone, gabapentin and seroquel with flat affect , not suicidal refuses MARIS 9. A. flutter per history on lopressor 10. Dyslipidemia LDL 140 cholesterol 203 will consider starting statin before discharge 11. Gait instability/Physically Deconditioned patient walks with walker at home and was able to perform transfers at present she is physically deconditioned PT eval - rec MARIS, pt refused however now agrees to go to TCU 12. Stress ulcer prophylaxis with Pepcid 13. DVT prophylaxis patient has IVC filter in place on therapeutic Lovenox 14. RUE DVT RUE thrombus found in basilic vein (superficial), discussed with interventional radiology. Anticoagulate patient with Lovenox, and will monitor will d/c PICC line 15. Diarrhea prob sec to abx stool C diff negative 16. Obesity BMI 37 17. COPD, chronic - Duoneb tx prn Present on Admission - Present on Admission Any Indicators Present on Admission: No Past Patient History - Infectious Disease Hx of Infectious Diseases: None - Tetanus Immunizations Tetanus Immunization: Unknown - Past Medical History & Family History Past Medical History?: Yes - Past Social History Smoking Status: Never Smoked - CARDIAC Hx Cardia Arrhythmia: Yes (Flutter) Hx Hypertension: Yes Hx Pacemaker: No Hx Peripheral Edema: Yes (+2) - PULMONARY Hx Bronchitis: Yes Hx Chronic Obstructive Pulmonary Disease (COPD): Yes Hx Pneumonia: Yes (5 YRS AGO) - HEENT Hx Cataracts: Yes - RENAL Hx Chronic Kidney Disease: No - ENDOCRINE/METABOLIC Hx Diabetes Mellitus Type 2: Yes - HEMATOLOGICAL/ONCOLOGICAL Hx AIDS: No Hx Anemia: Yes Hx Human Immunodeficiency Virus (HIV): No - INTEGUMENTARY Hx Dermatological Problems: No - MUSCULOSKELETAL/RHEUMATOLOGICAL Hx Arthritis: Yes Hx Falls: No Hx Fractures: Yes Hx Osteoporosis: Yes - GASTROINTESTINAL Hx Pancreatitis: Yes - GENITOURINARY/GYNECOLOGICAL Hx Sexually Transmitted Disorders: No - PSYCHIATRIC Hx Anxiety: Yes Hx Depression: Yes Hx Substance Use: No - SURGICAL HISTORY Hx Carotid Endarterectomy: Yes - ANESTHESIA Hx Anesthesia: Yes Hx Anesthesia Reactions: No Hx Malignant Hyperthermia: No Meds Allergies/Adverse Reactions: Allergies Allergy/AdvReac Type Severity Reaction Status Date / Time Penicillins Allergy RASH Verified 10/15/16 18:18 Results - Vital Signs Recent Vital Signs: Last Vital Signs Temp 98.1 F 10/16/16 08:14 Pulse 86 10/16/16 09:41 Resp 20 10/16/16 08:14 BP 129/61 10/16/16 09:41 Pulse Ox 99 10/16/16 08:14 - Labs Result Diagrams: 10/16/16 06:50 10/16/16 06:50 Labs: Laboratory Results - last 24 hr 10/16/16 10/16/16 10/16/16 06:50 06:50 06:50 WBC 8.6 RBC 3.74 L Hgb 11.2 L Hct 33.3 L MCV 89.0 MCH 29.9 MCHC 33.6 RDW 13.6 Plt Count 403 H MPV 7.9 Neut % (Auto) 66.3 Lymph % (Auto) 15.9 L [place] % (Auto) 15.3 H Eos % (Auto) 1.8 Baso % (Auto) 0.7 Neut # 5.7 Lymph # 1.4 [place] # 1.3 H Eos # 0.2 Baso # 0.1 PT 13.4 H INR 1.3 H APTT 38.8 H Sodium 140 Potassium 3.3 L Chloride 98 Carbon Dioxide 33 H Anion Gap 12 BUN 7 Creatinine 0.5 L Est GFR ( Amer) > 60 Est GFR (Non-Af Amer) > 60 Random Glucose 139 H Calcium 8.6 Total Bilirubin 0.6 AST 26 ALT 21 Alkaline Phosphatase 76 Total Protein 7.4 Albumin 3.3 L Globulin 4.1 H Albumin/Globulin Ratio 0.8 L
[2016-10-17] MEDS: Oxycodone/Acetaminophen 5/325 mg Tab PO PRN ×3 (05:05→17:57)
[2016-10-17] MEDS: Enoxaparin 100 mg Syringe SC SCH ×2 (08:44→22:05)
[2016-10-18] MEDS: Oxycodone/Acetaminophen 5/325 mg Tab PO PRN ×4 (04:34→23:15)
[2016-10-18] MEDS: Enoxaparin 100 mg Syringe SC SCH ×2 (09:15→23:06)
[2016-10-19] MEDS: Oxycodone/Acetaminophen 5/325 mg Tab PO PRN ×3 (05:35→21:22)
[2016-10-19] MEDS ORDERED: Enoxaparin 40 mg Syringe SC SCH (15:00)
[2016-10-19] MEDS: Enoxaparin 100 mg Syringe SC SCH (20:28)
[2016-10-20] MEDS: Oxycodone/Acetaminophen 5/325 mg Tab PO PRN ×3 (06:23→19:12)
[2016-10-20] MEDS: Enoxaparin 100 mg Syringe SC SCH ×2 (09:23→20:45)
[2016-10-20] MEDS: Alum-Mag Hydrox-Simethicone Susp (30 mL) PO PRN (20:43)
[2016-10-21] MEDS: Oxycodone/Acetaminophen 5/325 mg Tab PO PRN ×3 (06:53→22:27)
[2016-10-21] MEDS: Enoxaparin 100 mg Syringe SC SCH (09:01)
--- NOTE | 2016-10-21 14:06 | CP.PCM.PN ---
Subjective - Date & Time of Evaluation Date of Evaluation: 10/21/16 Time of Evaluation: 13:45 - Subjective Subjective: No fever denies abd pain tolerating Po diet no CP no SOB Plan for d/c home on Objective - Vital Signs/Intake and Output Vital Signs (last 24 hours): Temp Pulse Resp BP Pulse Ox 97.2 F L 81 20 148/73 90 L 10/21/16 08:36 10/21/16 09:02 10/21/16 08:36 10/21/16 09:02 10/21/16 08:36 - Medications Medications: Current Medications Acetaminophen (Tylenol 325mg Tab) 650 mg PO Q6 PRN PRN Reason: Pain, Mild (1-3), headache Last Admin: 10/20/16 21:55 Dose: 650 mg Acetaminophen (Tylenol 325mg Tab) 650 mg PO Q6 PRN PRN Reason: Fever >100.4 F Al Hydrox/Mg Hydrox/Simethicone (Maalox Plus 30 Ml) 30 ml PO Q4 PRN PRN Reason: Indigestion / Heartburn Last Admin: 10/20/16 20:43 Dose: 30 ml Albuterol/Ipratropium (Duoneb 3 Mg/0.5 Mg (3 Ml) Ud) 3 ml INH RQ6 PRN PRN Reason: Shortness of Breath Last Admin: 10/15/16 22:19 Dose: 3 ml Amlodipine Besylate (Norvasc) 10 mg PO DAILY [facility], [facility] Last Admin: 10/21/16 09:02 Dose: 10 mg Docusate Sodium (Colace) 100 mg PO BID [facility] Duloxetine HCl (Cymbalta) 60 mg PO HS [facility] Last Admin: 10/20/16 21:31 Dose: 60 mg Enalapril Maleate (Vasotec) 10 mg PO Q12 [facility] Last Admin: 10/21/16 09:02 Dose: 10 mg Enoxaparin Sodium (Lovenox) 100 mg SC Q12 PATTI PRN Reason: Protocol Last Admin: 10/21/16 09:01 Dose: 100 mg Famotidine (Pepcid) 20 mg PO Q12 [facility] Last Admin: 10/21/16 09:02 Dose: 20 mg Gabapentin (Neurontin) 600 mg PO TID [facility] Last Admin: 10/21/16 12:50 Dose: 600 mg Lactulose (Enulose) 30 gm PO DAILY PRN PRN Reason: Constipation Metoprolol Tartrate (Lopressor) 25 mg PO Q12 PATTI Last Admin: 10/21/16 09:01 Dose: 25 mg Ondansetron HCl (Zofran Tab) 4 mg PO Q6 PRN PRN Reason: Nausea/Vomiting Last Admin: 10/21/16 09:03 Dose: 4 mg Oxycodone/Acetaminophen (Percocet 5/325 Mg Tab) 1 tab PO Q6 PRN PRN Reason: Pain, moderate (4-7) Stop: 10/21/16 23:04 Last Admin: 10/21/16 12:49 Dose: 1 tab Trazodone HCl (Desyrel) 50 mg PO HS [facility] Last Admin: 10/20/16 21:31 Dose: 50 mg - Labs Labs: 10/16/16 06:50 10/16/16 06:50 PT 13.4 Seconds (9.8-13.1) H 10/16/16 06:50 INR 1.3 (0.9-1.2) H 10/16/16 06:50 APTT 38.8 Seconds (25.6-37.1) H 10/16/16 06:50 - Constitutional Appears: No Acute Distress - Head Exam Head Exam: NORMAL INSPECTION, NORMOCEPHALIC - Eye Exam Eye Exam: EOMI, Normal appearance Pupil Exam: NORMAL ACCOMODATION - ENT Exam ENT Exam: Mucous Membranes Moist, Normal External Ear Exam - Neck Exam Neck Exam: Full ROM. absent: Meningismus - Respiratory Exam Respiratory Exam: NORMAL BREATHING PATTERN. absent: Respiratory Distress - Cardiovascular Exam Cardiovascular Exam: REGULAR RHYTHM, +S1, +S2 - GI/Abdominal Exam GI & Abdominal Exam: Soft, Normal Bowel Sounds. absent: Tenderness - Extremities Exam Extremities Exam: Normal Capillary Refill. absent: Calf Tenderness, Pedal Edema - Back Exam Back Exam: absent: CVA tenderness (L), CVA tenderness (R) - Neurological Exam Neurological Exam: Alert, Awake, Oriented x3 - Psychiatric Exam Psychiatric exam: Normal Affect, Normal Mood - Skin Skin Exam: Dry, Normal Color, Warm Assessment and Plan - Assessment and Plan (Free Text) Assessment: 76 years old female with hx of DM, HTN, A Flutter, Pancreatitis came in with intermittent, abdominal pain which has worsened. CT abdomen showed cholelithiasis possible cholecystitis and pancreatitis. Blood test revealed elevated LFT-s , total bilirubin , lipase , WBC 21 k , lactic acid 4.5 initially. She was admitted in ICU with acute gallstone pancreatitis, cholecystitis , started on IVF IV antibiotics, pain management. Surgery, ID and GI consulted . Patient became hypotensive during admission requiring dopamine drip . Clinically improved , tolerating diet. Received IV Meropenem and Vanco for Staph coag neg. Transferred to TCU for rehab for deconditioning 1.Severe Sepsis, resolved secondary to acute gallstone pancreatitis and suspected cholecystitis Blood cx positive for Coag negative Staph x 2 bottle: 10/03 and 10/09 completed IV Meropenem and Vanco 2.Acute gallstone Pancreatitis improved GI and surgery consulted - no surgical intervention patient to follow up with surgery as outpatient for cholecystectomy continue low fat diet 3. Acute Cholecystitis with cholelithiasis-- improved treated with IVF and IV antibiotics no surgical intervention for now patient clinically improving potential cholecystectomy as out patient Received Meropenem and vanco IV 4. HTN uncontrolled cont enalapril 10 mg po bid Metoprolol to 25 mg bid Norvasc 10 mg daily 5. YASEMIN 2/2 dehydration- improved 6. Hyperglycemia HbA1c 6.2 Patient is pre diabetic Continue accuchecks diet 7. Hypokalemia Replace and monitor 8. Depression and anxiety on multiple medications xanax ,trazodone, gabapentin and seroquel with flat affect , not suicidal refuses MARIS 9. A. flutter per history on lopressor 10. Dyslipidemia LDL 140 cholesterol 203 will consider starting statin before discharge 11. Gait instability/Physically Deconditioned patient walks with walker at home and was able to perform transfers PT/OT 12. Stress ulcer prophylaxis with Pepcid 13. DVT prophylaxis patient has IVC filter in place Lovenox 14. RUE DVT RUE thrombus found in basilic vein (superficial), discussed with interventional radiology. Anticoagulated- therapeutic dose with Lovenox PICC line d/c 15. Diarrhea resolved prob sec to abx stool C diff negative 16. Obesity BMI 37 17. COPD, chronic - Duoneb tx prn
[2016-10-21] MEDS: Lactulose 10 gm/15 ml Syrup PO PRN (14:14)
[2016-10-22] MEDS: Oxycodone/Acetaminophen 5/325 mg Tab PO PRN ×3 (06:42→17:58)
[2016-10-22 06:56] LABS: BLOOD UREA NITROGEN 17 mg/dl (7-17); CALCIUM 8.7 mg/dL (8.4-10.2); CARBON DIOXIDE 30 mmol/L (22-30); CHLORIDE 100 mmol/L (98-107); GFR AFRICAN-AMERICAN > 60; GLUCOSE,RANDOM 116 mg/dL (65-105); SODIUM 139 mmol/l (132-148)
[2016-10-22] MEDS: Enoxaparin 40 mg Syringe SC SCH (09:10)
[2016-10-22] MEDS: Lactulose 10 gm/15 ml Syrup PO PRN (09:11)
[2016-10-23] MEDS: Oxycodone/Acetaminophen 5/325 mg Tab PO PRN ×2 (05:16→12:43)
[2016-10-23 08:34] VITALS: BP 115/60; PULSE 80; TEMP 97.9; O2SAT 99
[2016-10-23] MEDS: Enoxaparin 40 mg Syringe SC SCH (09:31)
[2016-10-23] MEDS: Alum-Mag Hydrox-Simethicone Susp (30 mL) PO PRN (09:39)
--- NOTE | 2016-10-23 10:49 | CP.PCM.DIS ---
Provider - Provider Date of Admission: 10/15/16 18:42 Attending physician: Lauren Ornelas MD Time Spent in preparation of Discharge (in minutes): 30 Hospital Course - Lab Results Lab Results: Most Recent Lab Values WBC 8.6 K/uL (4.8-10.8) 10/16/16 06:50 RBC 3.74 Mil/uL (3.80-5.20) L 10/16/16 06:50 Hgb 11.2 g/dL (12.0-16.0) L 10/16/16 06:50 Hct 33.3 % (34.0-47.0) L 10/16/16 06:50 MCV 89.0 fl (81.0-99.0) 10/16/16 06:50 MCH 29.9 pg (27.0-31.0) 10/16/16 06:50 MCHC 33.6 g/dL (33.0-37.0) 10/16/16 06:50 RDW 13.6 % (11.5-14.5) 10/16/16 06:50 Plt Count 403 K/uL (130-400) H 10/16/16 06:50 MPV 7.9 fl (7.2-11.7) 10/16/16 06:50 Neut % (Auto) 66.3 % (50.0-75.0) 10/16/16 06:50 Lymph % (Auto) 15.9 % (20.0-40.0) L 10/16/16 06:50 [place] % (Auto) 15.3 % (0.0-10.0) H 10/16/16 06:50 Eos % (Auto) 1.8 % (0.0-4.0) 10/16/16 06:50 Baso % (Auto) 0.7 % (0.0-2.0) 10/16/16 06:50 Neut # 5.7 K/uL (1.8-7.0) 10/16/16 06:50 Lymph # 1.4 K/uL (1.0-4.3) 10/16/16 06:50 [place] # 1.3 K/uL (0.0-0.8) H 10/16/16 06:50 Eos # 0.2 K/uL (0.0-0.7) 10/16/16 06:50 Baso # 0.1 K/uL (0.0-0.2) 10/16/16 06:50 PT 13.4 Seconds (9.8-13.1) H 10/16/16 06:50 INR 1.3 (0.9-1.2) H 10/16/16 06:50 APTT 38.8 Seconds (25.6-37.1) H 10/16/16 06:50 Sodium 139 mmol/l (132-148) 10/22/16 06:00 Potassium 4.0 MMOL/L (3.6-5.0) 10/22/16 06:00 Chloride 100 mmol/L (98-107) 10/22/16 06:00 Carbon Dioxide 30 mmol/L (22-30) 10/22/16 06:00 Anion Gap 14 (10-20) 10/22/16 06:00 BUN 17 mg/dl (7-17) 10/22/16 06:00 Creatinine 0.8 mg/dL (0.7-1.2) 10/22/16 06:00 Est GFR ( Amer) > 60 10/22/16 06:00 Est GFR (Non-Af Amer) > 60 10/22/16 06:00 POC Glucose (mg/dL) 141 mg/dL (65-110) H 10/23/16 10:15 Random Glucose 116 mg/dL (65-105) H 10/22/16 06:00 Calcium 8.7 mg/dL (8.4-10.2) 10/22/16 06:00 Total Bilirubin 0.6 mg/dl (0.2-1.3) 10/16/16 06:50 AST 26 U/L (14-36) 10/16/16 06:50 ALT 21 U/L (9-52) 10/16/16 06:50 Alkaline Phosphatase 76 U/L (38-126) 10/16/16 06:50 Total Protein 7.4 G/DL (6.3-8.2) 10/16/16 06:50 Albumin 3.3 g/dL (3.5-5.0) L 10/16/16 06:50 Globulin 4.1 gm/dL (2.2-3.9) H 10/16/16 06:50 Albumin/Globulin Ratio 0.8 (1.0-2.1) L 10/16/16 06:50 - Hospital Course Hospital Course: 76 years old female with hx of DM, HTN, A Flutter, Pancreatitis came in with 1 year old intermittent, abdominal pain which has worsened over the past 2 days. It is located below both breast ,the periumbilical region and both lower quadrant, not relieved with her home medications and increases with movement accompanied by vomiting and headache. CT abdomen showed cholelithiasis possible cholecystitis and pancreatitis. Blood test revealed elevated LFT-s , total bilirubin , lipase , WBC 21 k , lactic acid 4.5 initially. She was admitted in ICU with acute gallstone pancreatitis, cholecystitis, started on IVF IV antibiotics, pain management. Surgery, ID and GI consulted. Patient became hypotensive during admission requiring dopamine drip that now is discontinued . Clinically improving, afebrile BP better controlled, tolerating diet. Has been on IVF and IV Meropenem and Vanco for Staph coag neg. RUE thrombus was found in basilic vein (superficial), discussed with interventional radiology. Anticoagulated patient, and then PICC was subsequently d/cd. Remains afebrile and WBC trended down from 18 K -- 9K TCU for rehab for deconditioning, tolerated PT well, stable for discharge home. patient to follow up with surgery as outpatient for cholecystectomy. 1.Severe Sepsis -- improved secondary to acute gallstone pancreatitis and suspected cholecystitis came in hypotensive - off dopamine drip Blood cx positive for Coag negative Staph x 2 bottle: 10/03 and 10/09 Received IV Meropenem and vancomycin , afebrile and WBC trended down from 18 K -- 9.2 K No surgical intervention for now as per surgery LFT-s, bilirubin normalized Lipase level trending down on low fat diet and tolerating completed IV Meropenem and Vanco 2.Acute gallstone Pancreatitis improved GI and surgery consulted - no surgical intervention patient to follow up with surgery as outpatient for cholecystectomy continue low fat diet 3. Acute Cholecystitis with cholelithiasis-- improved treated with IVF and IV antibiotics surgery consulted no surgical intervention for now patient clinically improving potential cholecystectomy as out patient Received Meropenem and vanco IV 4. HTN uncontrolled cont enalapril 10 mg po bid Increase Metoprolol to 25 mg bid Increase Norvasc 10 mg daily 5. YASEMIN 2/2 dehydration- improved 6. Hyperglycemia HbA1c 6.2 Patient is pre diabetic Continue accuchecks diet 7. Hypokalemia Replace and monitor 8. Depression and anxiety on multiple medications xanax ,trazodone, gabapentin and seroquel with flat affect , not suicidal refuses MARIS 9. A. flutter per history on lopressor 10. Dyslipidemia LDL 140 cholesterol 203 will consider starting statin before discharge 11. Gait instability/Physically Deconditioned patient walks with walker at home and was able to perform transfers at present she is physically deconditioned PT eval - agrees to go to TCU 12. Stress ulcer prophylaxis with Pepcid 13. DVT prophylaxis patient has IVC filter in place on therapeutic Lovenox 14. RUE DVT RUE thrombus found in basilic vein (superficial), discussed with interventional radiology. Anticoagulate patient with Lovenox, and will monitor will d/c PICC line 15. Diarrhea prob sec to abx stool C diff negative 16. Obesity BMI 37 17. COPD, chronic - Duoneb tx prn Discharge Exam - Head Exam Head Exam: NORMAL INSPECTION, NORMOCEPHALIC - Eye Exam Eye Exam: EOMI, Normal appearance, PERRL - ENT Exam ENT Exam: Mucous Membranes Moist, Normal Oropharynx - Respiratory Exam Respiratory Exam: Clear to PA & Lateral, NORMAL BREATHING PATTERN - Cardiovascular Exam Cardiovascular Exam: RRR, +S1, +S2 - GI/Abdominal Exam GI & Abdominal Exam: Normal Bowel Sounds, Soft. absent: Mass, Organomegaly, Tenderness - Extremities Exam Extremities exam: normal capillary refill, pedal pulses present - Back Exam Back exam: absent: CVA tenderness (L), CVA tenderness (R) - Neurological Exam Neurological exam: Alert, Oriented x3 - Psychiatric Exam Psychiatric exam: Normal Affect, Normal Mood - Skin Skin Exam: Dry, Warm Discharge Plan - Discharge Medications Prescriptions: Alprazolam [Xanax] 0.5 mg PO BID #10 tab DULoxetine [Cymbalta] 60 mg PO HS #30 ecc Gabapentin [Neurontin] 600 mg PO TID #90 tab Lactulose [Enulose] 30 gm PO DAILY PRN #30 PRN Reason: Constipation Metoprolol Tartrate [Lopressor] 25 mg PO Q12 #60 tab Ondansetron [Zofran Tab] 4 mg PO Q6 PRN #20 tab PRN Reason: Nausea/Vomiting oxyCODONE/Acetaminophen [Percocet 5/325 mg Tab] 1 tab PO Q6 PRN #20 tab PRN Reason: Pain, Severe (8-10) oxyCODONE/Acetaminophen [Percocet 5/325 mg Tab] 1 ea PO Q6H #20 tab traZODone [Desyrel] 50 mg PO HS #30 tab - Follow Up Plan Condition: GOOD Disposition: HOME/ ROUTINE Additional Instructions: FOLLOW UP PCP FOLLOW UP SURGERY MEDS PRESCRIBED. RETURN TO ER IF CONDITION WORSENS. Referrals: Kyle Reddy MD [Staff Provider] -
== END 2016-10-23 13:00 | disposition home or self-care (01) | DRG 439 ==
LOC: H.TCU 18:42
PROVIDERS: ADMIT Internal Medicine; ATTEND Internal Medicine
PROC: 3E03329 Introduction of Other Anti-infective into Peripheral Vein, Percutaneous Approach (ICD-10-PCS; principal; 2016-10-15)
PROC: F07Z9FZ Gait Training/Functional Ambulation Treatment using Assistive, Adaptive, Supportive or Protective Equipment (ICD-10-PCS; 2016-10-15)
PROC: F08Z4FZ Home Management Treatment using Assistive, Adaptive, Supportive or Protective Equipment (ICD-10-PCS; 2016-10-16)
PROC: F07K6FZ Therapeutic Exercise Treatment of Musculoskeletal System - Upper Back / Upper Extremity using Assistive, Adaptive, Supportive or Protective Equipment (ICD-10-PCS; 2016-10-16)
DX: K85.10 Biliary acute pancreatitis without necrosis or infection (principal); N17.9 Acute kidney failure, unspecified; K80.00 Calculus of gallbladder with acute cholecystitis without obstruction; E11.42 Type 2 diabetes mellitus with diabetic polyneuropathy; I82.621 Acute embolism and thrombosis of deep veins of right upper extremity; I48.92 Unspecified atrial flutter; E11.65 Type 2 diabetes mellitus with hyperglycemia; J44.9 Chronic obstructive pulmonary disease, unspecified; E86.0 Dehydration; M79.7 Fibromyalgia; K86.1 Other chronic pancreatitis; K21.9 Gastro-esophageal reflux disease without esophagitis; M81.0 Age-related osteoporosis without current pathological fracture; E66.9 Obesity, unspecified; Z68.37 Body mass index [BMI] 37.0-37.9, adult; E78.5 Hyperlipidemia, unspecified; E87.6 Hypokalemia; I10 Essential (primary) hypertension; G89.29 Other chronic pain; R26.89 Other abnormalities of gait and mobility; F41.9 Anxiety disorder, unspecified; F32.9 Major depressive disorder, single episode, unspecified; M19.90 Unspecified osteoarthritis, unspecified site; Z87.01 Personal history of pneumonia (recurrent); Z87.891 Personal history of nicotine dependence; Z88.0 Allergy status to penicillin

== ENCOUNTER 2016-10-27 12:55 | Inpatient (IN) | payer MEDICARE, BC ==
[2016-10-27 12:57] VITALS: PULSE 171; BMI 35.2
--- NOTE | 2016-10-27 13:51 | ED PDOC ---
HPI: Female Pain Time Seen by Provider: 10/27/16 13:37 Chief Complaint (Nursing): Female Genitourinary Chief Complaint (Provider): Hematuria History Per: Patient, Family Additional Complaint(s): Chief Complaint: Abdominal pain HPI: 76 years old female with hx of DM, HTN, A Flutter, Pancreatitis comes with complaints of hematuria and increased frequency over last 24 hours, associated with lower abdominal cramping as well. No fever or chills. No nausea or vomiting. Not relieved with her home medications and increases with movement. Pt's granddaughter at bedside and reports that pt was admitted last week in ICU. Since being home Pt lays in a reclining chair all day. Soils herself. does not eat or drink well. Pt's is home and her daughter also comes to check on her, but she feels as if she needs more care and would like admission. 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9 F 10/27/16 13:16 Pulse 113 H 10/27/16 13:16 Resp 20 10/27/16 13:16 BP 135/87 10/27/16 13:16 Pulse Ox 90 L 10/27/16 13:16 - Medical History PMH: Anemia, Anxiety, Arthritis, Bronchitis, Cardia Arrhythmia (Flutter), Colonic Polyps, COPD, Depression, Fibromyalgia, Fractures, HTN, Osteoporosis, Pancreatitis, Peripheral Edema (+2), Pneumonia (5 YRS AGO), Chronic Pain ( bilateral LE) Denies: Diabetes, Hepatitis, HIV, Chronic Kidney Disease, Sexually Transmitted Disease - Surgical History Surgical History: Carotid Endarterectomy, Endoscopy Denies: Pacemaker - Family History Family History: States: Unknown Family Hx - Living Arrangements Living Arrangements: With Family - Social History Current smoker - smoking cessation education provided: No Alcohol: None Drugs: Denies - Immunization History Hx Tetanus Toxoid Vaccination: No Hx Influenza Vaccination: No Hx Pneumococcal Vaccination: No - Home Medications Home Medications: Ambulatory Orders Medication Instructions Recorded Alprazolam [Xanax] 0.5 mg PO BID #10 tab 10/23/16 DULoxetine [Cymbalta] 60 mg PO HS #30 ecc 10/23/16 Gabapentin [Neurontin] 600 mg PO TID #90 tab 10/23/16 Lactulose [Enulose] 30 gm PO DAILY PRN #30 10/23/16 Ondansetron [Zofran Tab] 4 mg PO Q6 PRN #20 tab 10/23/16 oxyCODONE/Acetaminophen [Percocet 1 tab PO Q6 PRN #20 tab 10/23/16 5/325 mg Tab] traZODone [Desyrel] 50 mg PO HS #30 tab 10/23/16 Ergocalciferol (Vitamin D2) 50,000 unit PO MO 10/27/16 [Vitamin D2] Pantoprazole Sodium [Protonix] 40 mg PO DAILY 10/27/16 Potassium Chloride [Klor-Con 10] 10 meq PO DAILY 10/27/16 Valsartan [Diovan] 320 mg PO DAILY 10/27/16 amLODIPine [Norvasc] 5 mg PO DAILY 10/27/16 hydroCHLOROthiazide [Hydrodiuril] 25 mg PO DAILY 10/27/16 - Allergies Allergies/Adverse Reactions: Allergies Allergy/AdvReac Type Severity Reaction Status Date / Time Penicillins Allergy RASH Verified 10/15/16 18:18 Review of Systems ROS Statement: Except As Marked, All Systems Reviewed And Found Negative Genitourinary Female: Positive for: Frequency, Hematuria Physical Exam - Reviewed Nursing Documentation Reviewed: Yes Vital Signs Reviewed: Yes - Physical Exam Appears: Positive for: Well, Non-toxic, No Acute Distress Head Exam: Positive for: ATRAUMATIC, NORMAL INSPECTION, NORMOCEPHALIC Skin: Positive for: Normal Color, Warm, DRY Eye Exam: Positive for: EOMI, Normal appearance, PERRL ENT: Positive for: Normal ENT Inspection Neck: Positive for: Normal, Painless ROM Cardiovascular/Chest: Positive for: Regular Rate, Rhythm Respiratory: Positive for: CNT, Normal Breath Sounds Gastrointestinal/Abdominal: Positive for: Bowel Sounds, Soft, Tenderness ( suprapubic), Other (ecchymosis RLQ) Back: Positive for: Normal Inspection Extremity: Positive for: Normal ROM Neurologic/Psych: Positive for: Alert, Oriented - Laboratory Results Result Diagrams: 10/27/16 14:15 10/27/16 15:13 - ECG O2 Sat by Pulse Oximetry: 90 Medical Decision Making Medical Decision Making: CT IMPRESSION 10/03/16: 1. Gallbladder is distended measuring 10.6 x 4.9 CM and demonstrates at least a question of wall thickening. Additionally, the common bile duct is dilated measuring 15 mm with at least a question of wall enhancement. Neither cholecystitis, cholangitis and/or common bile duct obstruction aren't excluded. Underlying choledocholithiasis or mass near the papilla cannot be excluded. There is adjacent stranding and slight fluid in the vicinity of the common bile duct and pancreatic head. The pancreas is atrophic and partially fatty replaced. Pancreatitis is not excluded. Please correlate clinically. 2. There is fecal impaction of the rectum measuring 8.5 x 7.3 CM. 3. There is extensive deformity of the right hip with high riding acetabulum and extensive deformity of the right femoral head with associated joint space narrowing, arthritic changes and subchondral cyst formation. 4. Additional incidental and/or chronic findings as described. IV access unable to be obtained. Pt refused further sticks. Blood drawer was successful however. Labs resulted and reviewed with Pt and granddaughter who demonstrated full understanding Due to HR 113 and WBC > 12,000. Pt meets SIRS criteria CT scan pending at 200, case endorsed to ARTURO Valeroier pending diagnotic review and likely admission to Dr. Polanco ([facility] on-call) Disposition - Clinical Impression Clinical Impression: SIRS (systemic inflammatory response syndrome) - Patient ED Disposition Is Patient to be Admitted: Transfer of Care - Disposition Disposition: Transfer of Care Disposition Time: 19:57 Condition: STABLE Forms: [email or web address] ([employer])
[2016-10-27 14:34] LABS: BASO # 0.1 K/uL (0.0-0.2); BASO % 0.5 % (0.0-2.0); EOS # 0.3 K/uL (0.0-0.7); EOS % 2.1 % (0.0-4.0); HEMATOCRIT 34.8 % (34.0-47.0); LYMPH # 1.5 K/uL (1.0-4.3); MEAN CELL VOLUME 91.1 fl (81.0-99.0); MEAN CORPUSCULAR HEMOGLOBIN 29.1 pg (27.0-31.0); MEAN PLATELET VOLUME 8.4 fl (7.2-11.7); MONO # 1.2 K/uL (0.0-0.8); MONO % 10.1 % (0.0-10.0); NEUT # 9.2 K/uL (1.8-7.0); NEUT % 75.3 % (50.0-75.0); RED CELL DISTRIBUTION WIDTH 14.3 % (11.5-14.5); WHITE BLOOD COUNT 12.2 K/uL (4.8-10.8)
[2016-10-27 14:47] LABS: PARTIAL THROMBOPLASTIN TIME 23.7 Seconds (25.6-37.1)
[2016-10-27 14:48] LABS: ALB/GLOB RATIO 0.8 (1.0-2.1); ALKALINE PHOSPHATASE 99 U/L (38-126); ALT/SGPT 15 U/L (9-52); AMYLASE 58 U/L (30-110); AST/SGOT 57 U/L (14-36); BILIRUBIN,TOTAL 1.5 mg/dl (0.2-1.3); BLOOD UREA NITROGEN 20 mg/dl (7-17); CALCIUM 9.8 mg/dL (8.4-10.2); CARBON DIOXIDE 31 mmol/L (22-30); CHLORIDE 98 mmol/L (98-107); GFR AFRICAN-AMERICAN > 60; GLUCOSE,RANDOM 123 mg/dL (65-105); LIPASE 66 U/L (23-300); SODIUM 139 mmol/l (132-148); TOTAL PROTEIN 9.3 G/DL (6.3-8.2)
[2016-10-27 14:55] LABS: POTASSIUM 5.3 MMOL/L (3.6-5.0)
[2016-10-27 15:08] LABS: RBC URINE 2 /hpf (0-3); URINE BILIRUBIN NEGATIVE (NEGATIVE); URINE BLOOD NEGATIVE (NEGATIVE); URINE COLOR AMBER (YELLOW); URINE GLUCOSE (UA) NEG (Normal); URINE KETONE NEGATIVE (NEGATIVE); URINE LEUKOCYTE ESTERASE NEG Leu/uL (Negative); URINE PROTEIN 30 mg/dL (NEGATIVE); WBC URINE 3 /hpf (0-5)
[2016-10-27 15:12] LABS: VENOUS BLOOD GAS BASE EXCESS 7.9 mmol/L (0.0-2.0); VENOUS BLOOD GAS PCO2 65 mmHg (40-60); VENOUS BLOOD PH 7.35 (7.32-7.43)
[2016-10-27] MEDS ORDERED: Iohexol 240 (50 ml) PO ONE (15:16)
--- NOTE | 2016-10-27 15:41 | RAD ---
HISTORY: med screening COMPARISON: No prior. FINDINGS: LUNGS: No active pulmonary disease. PLEURA: No significant pleural effusion identified, no pneumothorax apparent. CARDIOVASCULAR: No radiographic findings to suggest acute or significant cardiovascular disease. OSSEOUS STRUCTURES: No significant abnormalities. VISUALIZED UPPER ABDOMEN: Normal. OTHER FINDINGS: None. IMPRESSION: No active disease. No significant interval change compared to the prior examination(s).
[2016-10-27 15:43] LABS: ALB/GLOB RATIO 0.8 (1.0-2.1); ALKALINE PHOSPHATASE 97 U/L (38-126); ALT/SGPT 20 U/L (9-52); AMYLASE 59 U/L (30-110); AST/SGOT 29 U/L (14-36); BILIRUBIN,TOTAL 0.9 mg/dl (0.2-1.3); BLOOD UREA NITROGEN 20 mg/dl (7-17); CALCIUM 9.7 mg/dL (8.4-10.2); CARBON DIOXIDE 28 mmol/L (22-30); CHLORIDE 100 mmol/L (98-107); GFR AFRICAN-AMERICAN > 60; GLUCOSE,RANDOM 120 mg/dL (65-105); LIPASE 78 U/L (23-300); POTASSIUM 4.9 MMOL/L (3.6-5.0); SODIUM 141 mmol/l (132-148); TOTAL PROTEIN 8.4 G/DL (6.3-8.2)
[2016-10-27] MEDS ORDERED: Iohexol 240 (50 ml) ONE (15:56)
[2016-10-27] MEDS ORDERED: Sodium Chloride 0.9% 50 ML IV ONE (18:21)
[2016-10-27] MEDS ORDERED: Iohexol 300 100 ML IJ ONE (18:21)
[2016-10-27] MEDS ORDERED: Oxycodone/Acetaminophen 5/325 mg Tab PO STA (21:05)
--- NOTE | 2016-10-27 21:07 | CT ---
EXAM: CT Abdomen and Pelvis Without Intravenous Contrast EXAM DATE/TIME: 10/27/2016 7:30 PM CLINICAL HISTORY: 76 years old, female; Pain; Abdominal pain; Generalized; Patient HX: HX of pancreatitis; Additional info: Suprapubic abdominal pain, hematuria. Sent phy. Doc. With request TECHNIQUE: Axial computed tomography images of the abdomen and pelvis without intravenous contrast. All CT scans at this facility use one or more dose reduction techniques, viz.: automated exposure control; ma/kV adjustment per patient size (including targeted exams where dose is matched to indication; i.e. head); or iterative reconstruction technique. Coronal and sagittal reformatted images were created and reviewed. COMPARISON: Prior CT abdomen and pelvis of 10/04/2016 FINDINGS: LIMITATIONS: Streak artifact from the patient's arms. Mild to moderate streak/motion artifact. LOWER THORAX: Gastroesophageal reflux. ABDOMEN: LIVER: No acute abnormality of the liver identified. GALLBLADDER AND BILE DUCTS: Gallbladder is moderately to markedly dilated. Common bile duct abnormally dilated for age, measuring 1.3 cm in diameter. This finding was also seen on the prior study. No radioopaque gallstones or common bile duct stones are seen. No evidence of significant pericholecystic fluid or inflammation. PANCREAS: Suboptimally evaluated due to unenhanced technique. Allowing for this, there are findings suspicious for acute pancreatitis involving the proximal pancreas. The pancreatic head and neck appears enlarged and ill-defined, and there is stranding of the fat adjacent to the pancreatic head. Pancreatic tail appears atrophic/fatty replaced. [place]-shaped low to intermediate density soft tissue is seen in the region of the posterior gastric wall, involving the mid and distal stomach. This has an elongated shape and a CT density of 20-30 Hounsfield units. It could represent focal gastric wall thickening, but it is difficult to exclude a perigastric fluid collection, related to a prior episode of pancreatitis. This measures about 10 cm in width and 2 cm in AP dimensions. There is no associated gas. SPLEEN: No acute abnormality of the spleen identified. ADRENALS: No acute abnormality of the adrenal glands identified. KIDNEYS AND URETERS: No acute abnormality of the kidneys seen. No evidence of hydroureteronephrosis. STOMACH AND BOWEL: Rectum is stool filled and mildly dilated. Stool is seen throughout the ascending colon. There is no evidence of a large fecal impaction. Findings are most likely due to fecal retention/constipation. Colonic diverticulosis, with no evidence of acute diverticulitis. Otherwise, no significant abnormality of the bowel is identified. No evidence of bowel obstruction. APPENDIX: Appendix is seen, and is within normal limits in appearance. PELVIS: BLADDER: No acute abnormality of the bladder identified. REPRODUCTIVE:No acute abnormality of the reproductive organs is seen. No acute abnormality of the uterus identified. No evidence of large adnexal masses. ABDOMEN and PELVIS: INTRAPERITONEAL SPACE: No evidence of free intraperitoneal air or fluid. BONES/JOINTS: Severe chronic deformity of the femoral head and neck, most likely related to an old fracture. Severe osteoarthritic changes of the right hip. 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 SOFT TISSUES: Multiple round to oval masslike areas of soft tissue density are seen in the right anterior pelvic wall subcutaneous tissues, localized to the subcutaneous fat. These have CT densities of up to 70 Hounsfield units, and are suspicious for multiple soft tissue hematomas. The largest of these measures 10 x 5.5 cm. VASCULATURE: IVC filter in place. LYMPH NODES: No evidence of diffuse lymphadenopathy. IMPRESSION: - Findings suspicious for multiple soft tissue hematomas in the right anterior pelvic wall subcutaneous fat, the largest measuring 10 x 5.5 cm. - Enlargement of the pancreatic head and neck, suspicious for acute pancreatitis. Recommend correlation with pancreatic enzyme values. - Focal thickening of the posterior gastric wall versus an elongated perigastric fluid collection, likely related to a prior episode of pancreatitis. This measures about 10 x 2 cm. No associated gas. Unenhanced technique limits evaluation. - Dilatation of the common bile duct and gallbladder, cause not identified. No CT evidence of acute cholecystitis. Recommend correlation with LFTs for laboratory evidence of biliary obstruction. - Otherwise, no evidence of significant acute process. - Findings which are most likely secondary to fecal retention/constipation. - Severe osteoarthritic changes of the right hip, likely secondary to an old right femoral neck fracture. - See above for remaining findings.
[2016-10-27] MEDS ORDERED: Pantoprazole 40 mg Susp UD PO STA (21:13)
--- NOTE | 2016-10-27 21:21 | ED PDOC ---
"- Laboratory Results Result Diagrams: 10/27/16 14:15 10/27/16 15:13 - ECG O2 Sat by Pulse Oximetry: 90 <Samantha Berg - Last Filed: 10/27/16 21:56> - Laboratory Results Result Diagrams: 10/27/16 14:15 10/27/16 15:13 <Radha Pavon - Last Filed: 10/28/16 05:24> - Progress ED Course And Treament: 76yo F in ED for eval of sever abdominal pain with hematuira and pain with urination. PT with hx of sepsis, pancreatitis and cholescytisis. PT re-evaluated in ED. still in significant pain -states due to her fibromoylagia she takes percocets. Pt with elevated WBC, abnormal PT/PTT. PT with abnormal platelet count. PT was admitted 10/02/16-for pancreatitis and cholestycitis was evaluated by surgery and GI. PT was admitted to TCU and was advised to to be d/c to subacute care, however pt refused. granddaughter states she noted pt ot have soled herself and urinated on herself due to inability to move around in house form her fibromylagia and RA. PE: pt with hematoma multiple to lower abd with tenderness and warmth on touch, epigastirc tenderness pt will be placed on cardiac monitor technician CT shows: IMPRESSION: - Findings suspicious for multiple soft tissue hematomas in the right anterior pelvic wall subcutaneous fat, the largest measuring 10 x 5.5 cm. - Enlargement of the pancreatic head and neck, suspicious for acute pancreatitis. Recommend correlation with pancreatic enzyme values. - Focal thickening of the posterior gastric wall versus an elongated perigastric fluid collection, likely related to a prior episode of pancreatitis. This measures about 10 x 2 cm. No associated gas. Unenhanced technique limits evaluation. - Dilatation of the common bile duct and gallbladder, cause not identified. No CT evidence of acute cholecystitis. Recommend correlation with LFTs for laboratory evidence of biliary obstruction. - Otherwise, no evidence of significant acute process. MICHAEL RESTREPO | Final Radiology Report CONFIDENTIALITY STATEMENT This report is intended only for use by the referring physician, and only in accordance with law. If you received this in error, call [phone]. Page 3 of 3 - Findings which are most likely secondary to fecal retention/constipation. - Severe osteoarthritic changes of the right hip, likely secondary to an old right femoral neck fracture. - See above for remaining findings. --PT will be given flagy and cefoxtin, perocet for pain. PT given a daily maintenance meds . PT given IV fluids. --MD Collin contacted-will accept pt req. same consults to be consulted on case -surgical-MD Doretha consulted surigcal resisdent will see pt in ER --GI-MD indira contacted will see pt in the AM. (Samantha Berg) Medical Decision Making <Samantha Berg - Last Filed: 10/27/16 21:56> <Radha Pavon - Last Filed: 10/28/16 05:24> Medical Decision Making: because pt came to ER with tachycardia, elevated WBC and dx of pancreatitis/ cholecystisis and multiple hematoma to lower abd-pt meets SIRS/sepsis criteria. will be admitted (Samantha Berg) 2200 Procedure note: After verbal consent I performed cannulation of right EJ vein. Tolerated well. Confirmed by positive blood flow and NS flash. No complications. Orbelyan. ( Radha Pavon) Disposition - POA Present On Arrival: None - Disposition Disposition: Admitted as In-Patient Disposition Time: 22:06 <Samantha Berg - Last Filed: 10/27/16 21:56> <Radha Pavon - Last Filed: 10/28/16 05:24> - Clinical Impression Clinical Impression: SIRS (systemic inflammatory response syndrome), Pancreatitis, Acute cholecystitis - Disposition Condition: FAIR Progress Note - Review of Symptoms General: No: Chills, Night Sweats, Fatigue, Malaise, Appetite, Other HEENT: No: Head Aches, Visual Changes, Eye Pain, Ear Pain, Dysphasia, Sinus Congestion, Post Nasal Drip, Sore Throat, Other Pulmonary: No: Dyspnea, Cough, Pleuritic Chest Pain, Other Cardiovascular: No: Chest Pain, Palpitations, Orthopnea, Paroxysmal Noc. Dyspnea , Edema, Light Headedness, Other Gastrointestinal: Positive for: Abdominal Pain. No: Nausea, Vomiting, Diarrhea , Constipation, Melena, Hematochezia, Other Genitourinary: No: Dysuria, Frequency, Incontinence, Hematuria, Retention, Other Musculoskeletal: Positive for: Muscle Pain, Joint Pain Neurological: No: Weakness, Numbness, Incoordination, Change in speech, Confusion, Seizures, Other <Samantha Berg - Last Filed: 10/27/16 21:56>"
[2016-10-27] MEDS ORDERED: Pantoprazole 40 mg EC Tab PO ONE (21:35)
[2016-10-27] MEDS ORDERED: Oxycodone/Acetaminophen 5/325 mg Tab ONE (21:35)
[2016-10-27] MEDS ORDERED: metroNIDAZOLE 500mg/100ml NS 100 ML IVPB STA (21:49)
[2016-10-27] MEDS ORDERED: cefOXitin Sodium 1 GM in Sodium Chloride 0.9% 100 ML IVPB STA (21:51)
[2016-10-27] MEDS ORDERED: Sodium Chloride 0.9% 1,000 ML IV STA (21:53)
--- NOTE | 2016-10-27 23:30 | CP.PCM.CON ---
<Krishna Zhang - Last Filed: 10/27/16 23:34> History of Present Illness - History of Present Illness History of Present Illness: Surgery: Dr. Reddy Reason for consult: distended gallbladder CC: abdominal pain HPI: Patient is a 76 y/o female w/ chronic pancreatitis who present complaining of recurring abdominal pain in the RUQ and epigastrium. Patient states the pain never actually went away last time she was in the hospital. She was admitted on 10/04 and found to be septic requiring ICU admission however patient d/c'd to rehab on 10/16 and subsequently dc/d home on 10/23. Patient reports associated nausea but denies vomiting. She denies f/c. She describes the pain as gnawing and identical to prior episodes in the past. She has undergone worked up for multiple episodes of pancreatitis and according to patient in 2015 underwent endoscopy. Records show that patient had EUS which found dilated CDB to 9.9mm, periampullary diverticulum, mild stranding and lobularity to the pancreas. ER course: Patient known history of poor IV access. Attempts made in ER and initially unsuccessful. Discussed with patient the options of neck IV placement and central line placement for acute access however patient refused both options. Recommend reattempt at IV access if patient agreeable then PICC line placement if possible. PMH: chronic pancreatitis, DM, HTN, HKD, periampullary diverticulum PSH: right hand, diagnostic laparoscopy for ovarian cyst Social: no hx of ETOH to tobacco use, needs assistance for some ADLs, has help from daughter/son and granddaughter Review of Systems - Review of Systems All systems: reviewed and no additional remarkable complaints except Review of Systems: unless stated in HPI Past Patient History - Infectious Disease Hx of Infectious Diseases: None - Tetanus Immunizations Tetanus Immunization: Unknown - Past Medical History & Family History Past Medical History?: Yes - Past Social History Alcohol: None Drugs: Denies - CARDIAC Hx Cardia Arrhythmia: Yes (Flutter) Hx Hypertension: Yes Hx Pacemaker: No Hx Peripheral Edema: Yes (+2) - PULMONARY Hx Bronchitis: Yes Hx Chronic Obstructive Pulmonary Disease (COPD): Yes Hx Pneumonia: Yes (5 YRS AGO) - HEENT Hx Cataracts: Yes - RENAL Hx Chronic Kidney Disease: No - ENDOCRINE/METABOLIC Hx Diabetes Mellitus Type 2: Yes - HEMATOLOGICAL/ONCOLOGICAL Hx Anemia: Yes Hx Human Immunodeficiency Virus (HIV): No - INTEGUMENTARY Hx Dermatological Problems: No - MUSCULOSKELETAL/RHEUMATOLOGICAL Hx Arthritis: Yes Hx Fractures: Yes Hx Osteoporosis: Yes - GASTROINTESTINAL Hx Pancreatitis: Yes - GENITOURINARY/GYNECOLOGICAL Hx Sexually Transmitted Disorders: No - PSYCHIATRIC Hx Anxiety: Yes Hx Depression: Yes - SURGICAL HISTORY Hx Carotid Endarterectomy: Yes - ANESTHESIA Hx Anesthesia: Yes Hx Anesthesia Reactions: No Hx Malignant Hyperthermia: No Meds Allergies/Adverse Reactions: Allergies Allergy/AdvReac Type Severity Reaction Status Date / Time Penicillins Allergy RASH Verified 10/15/16 18:18 Physical Exam - Constitutional Appears: Non-toxic, No Acute Distress Additional comments: Obese - Head Exam Head Exam: ATRAUMATIC, NORMOCEPHALIC - Eye Exam Eye Exam: EOMI, Normal appearance - ENT Exam ENT Exam: Mucous Membranes Dry - Respiratory Exam Respiratory Exam: NORMAL BREATHING PATTERN. absent: Respiratory Distress - Cardiovascular Exam Cardiovascular Exam: REGULAR RHYTHM. absent: Tachycardia - GI/Abdominal Exam GI & Abdominal Exam: Soft, Tenderness (epigastric and RUQ ). absent: Distended , Guarding, Rebound, Rigid Additional comments: hematoma palpated in LLQ and RLQ with surrounding bruising of different stages of healing, appears to be 2/2 DVT prophylaxis injections - Extremities Exam Extremities exam: Positive for: normal inspection. Negative for: calf tenderness - Neurological Exam Neurological exam: Alert - Psychiatric Exam Psychiatric exam: Normal Affect, Normal Mood - Skin Skin Exam: Dry, Warm Results - Vital Signs Recent Vital Signs: Last Vital Signs Temp 97.9 F 10/27/16 13:16 Pulse 56 L 10/27/16 14:00 Resp 20 10/27/16 13:16 BP 135/87 10/27/16 13:16 Pulse Ox 90 L 10/27/16 22:06 - Labs Result Diagrams: 10/27/16 14:15 10/27/16 15:13 Assessment & Plan - Assessment and Plan (Free Text) Assessment: 76 y/o female w/ chronic abdominal pain 2/2 chronic pancreatitis Plan: -CBD chronically dilated -u/s on last admission showed gallstones and dilated CBD -CT on this admission shows evidence of pancreatitis -IVF hydration for now -GI f/u -pain control -no acute surgical intervention at this time -can re-attempt HIDA scan if patient agreeable -further surgical recs pending clinical course -further recs per Dr. Reddy [facility] PGY3 <Kyle Reddy - Last Filed: 10/29/16 18:31> Meds - Medications Medications: Current Medications Alprazolam (Xanax) 0.5 mg PO BID [facility] Last Admin: 10/29/16 17:36 Dose: 0.5 mg Amlodipine Besylate (Norvasc) 10 mg PO DAILY [facility] Duloxetine HCl (Cymbalta) 60 mg PO HS [facility] Last Admin: 10/28/16 23:04 Dose: 60 mg Enoxaparin Sodium (Lovenox) 40 mg SC DAILY [facility] PRN Reason: Protocol Last Admin: 10/28/16 11:22 Dose: 40 mg Ergocalciferol (Drisdol 50,000 Intl Units Cap) 1 cap PO MO [facility] Gabapentin (Neurontin) 600 mg PO TID [facility] Last Admin: 10/29/16 17:38 Dose: 600 mg Hydrochlorothiazide (Hydrodiuril) 25 mg PO DAILY [facility] Last Admin: 10/29/16 11:25 Dose: 25 mg Ciprofloxacin (Cipro 400mg/200ml Dsw) 400 mg in 200 mls @ 200 mls/hr IVPB Q12 [facility] Last Admin: 10/29/16 11:19 Dose: 200 mls/hr Sodium Chloride (Sodium Chloride 0.9%) 1,000 mls @ 100 mls/hr IV .Q10H [facility] Last Admin: 10/29/16 11:20 Dose: 100 mls/hr Lactulose (Enulose) 30 gm PO DAILY PRN PRN Reason: Constipation Ondansetron HCl (Zofran Inj) 4 mg IVP Q4 PRN PRN Reason: Nausea/Vomiting Oxycodone/Acetaminophen (Percocet 5/325 Mg Tab) 1 tab PO Q6 PRN PRN Reason: Pain, severe (8-10) Stop: 10/31/16 06:20 Last Admin: 10/29/16 11:26 Dose: 1 tab Pantoprazole Sodium (Protonix Inj) 40 mg IVP DAILY [facility] Last Admin: 10/29/16 11:21 Dose: 40 mg Potassium Chloride (Klor-Con 10) 10 meq PO DAILY [facility] Last Admin: 10/29/16 09:39 Dose: 10 meq Trazodone HCl (Desyrel) 50 mg PO HS [facility] Last Admin: 10/28/16 23:05 Dose: 50 mg Valsartan (Diovan) 320 mg PO DAILY [facility] Last Admin: 10/29/16 11:24 Dose: 320 mg Results - Vital Signs Recent Vital Signs: Last Vital Signs Temp 98.1 F 10/29/16 15:57 Pulse 107 H 10/29/16 16:36 Resp 20 10/29/16 15:57 BP 136/79 10/29/16 15:57 Pulse Ox 98 10/29/16 16:36 - Labs Result Diagrams: 10/29/16 05:50 10/29/16 05:50 Labs: Laboratory Results - last 24 hr 10/28/16 10/29/16 10/29/16 21:15 05:39 05:50 WBC 11.4 H RBC 3.68 L Hgb 10.4 L Hct 33.3 L MCV 90.3 MCH 28.3 MCHC 31.4 L RDW 14.3 Plt Count 430 H MPV 8.1 Neut % (Auto) 73.4 Lymph % (Auto) 12.3 L [place] % (Auto) 12.3 H Eos % (Auto) 1.6 Baso % (Auto) 0.4 Neut # 8.4 H Lymph # 1.4 [place]onald # 1.4 H Eos # 0.2 Baso # 0.0 Sodium Potassium Chloride Carbon Dioxide Anion Gap BUN Creatinine Est GFR ( Amer) Est GFR (Non-Af Amer) POC Glucose (mg/dL) 86 118 H Random Glucose Calcium Total Bilirubin AST ALT Alkaline Phosphatase Total Protein Albumin Globulin Albumin/Globulin Ratio 10/29/16 10/29/16 10/29/16 05:50 11:15 15:51 WBC RBC Hgb Hct MCV MCH MCHC RDW Plt Count MPV Neut % (Auto) Lymph % (Auto) Mcdonald % (Auto) Eos % (Auto) Baso % (Auto) Neut # Lymph # Mcdonald # Eos # Baso # Sodium 139 Potassium 3.8 Chloride 99 Carbon Dioxide 32 H Anion Gap 12 BUN 8 Creatinine 0.6 L Est GFR ( Amer) > 60 Est GFR (Non-Af Amer) > 60 POC Glucose (mg/dL) 134 H 120 H Random Glucose 118 H Calcium 9.3 Total Bilirubin 0.9 AST 23 ALT 12 Alkaline Phosphatase 90 Total Protein 7.7 Albumin 3.5 Globulin 4.2 H Albumin/Globulin Ratio 0.8 L Attending/Attestation - Attestation I have personally seen and examined this patient.: Yes I have fully participated in the care of the patient.: Yes I have reviewed all pertinent clinical information: Yes Notes (Text): 10/29/16 18:29 Pt was seen and examined at bedside Agree with above note and assessment Pt with Cholelithiasis and possible Cholecystitis Abdomen : Tender in RUQ Ass: Cholelithiasis with cholecystitis with resolved pancreatitis Plan : GI consult HIDA scan NPO, IVF Serial abdominal exam IV antibiotics Plan d.w pt in detail Risk and benefit explained in detail.
[2016-10-28] MEDS ORDERED: HYDROmorphone 0.5 mg/0.5 ml ISec IVP PRN (01:06)
[2016-10-28] MEDS: Lactated Ringer's 1,000 ML IV SCH ×4 (02:56→21:00)
[2016-10-28] MEDS ORDERED: LACTULOSE 30 GM PO PRN (06:19)
[2016-10-28 07:37] LABS: BASO # 0.1 K/uL (0.0-0.2); BASO % 0.6 % (0.0-2.0); EOS # 0.3 K/uL (0.0-0.7); EOS % 2.2 % (0.0-4.0); HEMATOCRIT 31.2 % (34.0-47.0); LYMPH # 1.4 K/uL (1.0-4.3); MEAN CELL VOLUME 90.8 fl (81.0-99.0); MEAN CORPUSCULAR HEMOGLOBIN 29.5 pg (27.0-31.0); MEAN CORPUSCULAR HGB CONC 32.5 g/dL (33.0-37.0); MEAN PLATELET VOLUME 8.4 fl (7.2-11.7); MONO # 1.5 K/uL (0.0-0.8); MONO % 12.4 % (0.0-10.0); NEUT # 8.6 K/uL (1.8-7.0); NEUT % 72.8 % (50.0-75.0); NRBC % 0.1 % (0.0-0.0); RED CELL DISTRIBUTION WIDTH 13.9 % (11.5-14.5); WHITE BLOOD COUNT 11.8 K/uL (4.8-10.8)
[2016-10-28 07:38] LABS: BLOOD UREA NITROGEN 13 mg/dL (7-21); GFR AFRICAN-AMERICAN > 60; GLUCOSE,RANDOM 107 mg/dL (70-110); SODIUM 138 mmol/L (132-148)
[2016-10-28 07:39] LABS: ALB/GLOB RATIO 0.9 (1.1-1.8); ALKALINE PHOSPHATASE 86 U/L (38-126); ALT/SGPT 25 U/L (7-56); AST/SGOT 36 U/L (14-36); BILIRUBIN,TOTAL 0.8 mg/dL (0.2-1.3); CARBON DIOXIDE 30 mmol/L (21-33); CHLORIDE 99 mmol/L (98-107); LIPASE 38 U/L (23-300); POTASSIUM 4.1 mmol/L (3.6-5.0); TOTAL PROTEIN 7.4 g/dL (5.8-8.3)
--- NOTE | 2016-10-28 08:10 | CP.PCM.PN ---
<Kimberly Vance - Last Filed: 10/28/16 08:15> Subjective - Date & Time of Evaluation Date of Evaluation: 10/28/16 Time of Evaluation: 07:00 - Subjective Subjective: Patient seen and examined at bedside. NAEO. Patient reports mild pain well controlled by pain regimen. Denies nausea, vomiting, fevers, chills, or any other symptoms. Objective - Vital Signs/Intake and Output Vital Signs (last 24 hours): Temp Pulse Resp BP Pulse Ox 98.1 F 92 H 20 158/80 H 94 L 10/28/16 08:00 10/28/16 08:00 10/28/16 08:00 10/28/16 08:00 10/28/16 08:00 - Medications Medications: Current Medications Alprazolam (Xanax) 0.5 mg PO BID [facility] Amlodipine Besylate (Norvasc) 5 mg PO DAILY [facility] Duloxetine HCl (Cymbalta) 60 mg PO HS [facility] Enoxaparin Sodium (Lovenox) 40 mg SC DAILY [facility] PRN Reason: Protocol Ergocalciferol (Drisdol 50,000 Intl Units Cap) 1 cap PO MO [facility] Gabapentin (Neurontin) 600 mg PO TID [facility] Hydrochlorothiazide (Hydrodiuril) 25 mg PO DAILY [facility] Lactated Ringer's (Lactated Ringer's) 1,000 mls @ 150 mls/hr IV .Q6H40M [facility] Last Admin: 10/28/16 02:56 Dose: 150 mls/hr Ciprofloxacin (Cipro 400mg/200ml Dsw) 400 mg in 200 mls @ 200 mls/hr IVPB Q12 [facility] Lactulose (Enulose) 30 gm PO DAILY PRN PRN Reason: Constipation Ondansetron HCl (Zofran Inj) 4 mg IVP Q4 PRN PRN Reason: Nausea/Vomiting Oxycodone/Acetaminophen (Percocet 5/325 Mg Tab) 1 tab PO Q6 PRN PRN Reason: Pain, severe (8-10) Stop: 10/31/16 06:20 Pantoprazole Sodium (Protonix Inj) 40 mg IVP DAILY [facility] Potassium Chloride (Klor-Con 10) 10 meq PO DAILY [facility] Trazodone HCl (Desyrel) 50 mg PO HS [facility] Valsartan (Diovan) 320 mg PO DAILY [facility] - Labs Labs: 10/28/16 06:00 10/28/16 05:40 PT 13.9 Seconds (9.8-13.1) H 10/27/16 14:15 INR 1.3 (0.9-1.2) H 10/27/16 14:15 APTT 23.7 Seconds (25.6-37.1) L 10/27/16 14:15 - Constitutional Appears: No Acute Distress, Chronically Ill - Head Exam Head Exam: ATRAUMATIC, NORMOCEPHALIC - Eye Exam Eye Exam: Normal appearance. absent: Conjunctival injection, Scleral icterus - ENT Exam ENT Exam: Mucous Membranes Moist, Normal Oropharynx - Respiratory Exam Respiratory Exam: NORMAL BREATHING PATTERN. absent: Accessory Muscle Use, Respiratory Distress - Cardiovascular Exam Cardiovascular Exam: Tachycardia - GI/Abdominal Exam GI & Abdominal Exam: Distended, Soft, Tenderness (moderate epigastric tenderness , mild ruq pain). absent: Firm, Guarding Additional comments: subcutaneous hematoma at injection sit in the RLQ - Extremities Exam Extremities Exam: absent: Calf Tenderness, Pedal Edema, Tenderness - Neurological Exam Neurological Exam: Alert, Awake, Oriented x3 - Psychiatric Exam Psychiatric exam: Flat Affect, Normal Mood - Skin Skin Exam: Diaphoretic, Normal Color, Warm Assessment and Plan - Assessment and Plan (Free Text) Assessment: 76 y/o female w/ chronic abdominal pain 2/2 chronic pancreatitis LFT's wnl lipase wnl and trending down Plan: -IVF hydration for now -GI f/u -pain control -no acute surgical intervention at this time--patient's CBD is chronically dilated as seen on US on 10/04 with CBD 1.6cm, patient has known ampulary diverticulum -Will re-attempt HIDA scan if patient agrees -further surgical recs pending clinical course further recs per Dr. Barry Vance, PGY2 <Kyle Reddy - Last Filed: 10/29/16 18:38> Objective - Vital Signs/Intake and Output Vital Signs (last 24 hours): Temp Pulse Resp BP Pulse Ox 98.1 F 107 H 20 136/79 98 10/29/16 15:57 10/29/16 16:36 10/29/16 15:57 10/29/16 15:57 10/29/16 16:36 Intake and Output: 09/13/17 09/13/17 06:59 18:59 Intake Total 1800 1400 Output Total 801 Balance 1800 599 - Medications Medications: Current Medications Alprazolam (Xanax) 0.5 mg PO BID [facility] Last Admin: 10/29/16 17:36 Dose: 0.5 mg Amlodipine Besylate (Norvasc) 10 mg PO DAILY [facility] Duloxetine HCl (Cymbalta) 60 mg PO HS [facility] Last Admin: 10/28/16 23:04 Dose: 60 mg Enoxaparin Sodium (Lovenox) 40 mg SC DAILY [facility] PRN Reason: Protocol Last Admin: 10/28/16 11:22 Dose: 40 mg Ergocalciferol (Drisdol 50,000 Intl Units Cap) 1 cap PO MO [facility] Gabapentin (Neurontin) 600 mg PO TID [facility] Last Admin: 10/29/16 17:38 Dose: 600 mg Hydrochlorothiazide (Hydrodiuril) 25 mg PO DAILY [facility] Last Admin: 10/29/16 11:25 Dose: 25 mg Ciprofloxacin (Cipro 400mg/200ml Dsw) 400 mg in 200 mls @ 200 mls/hr IVPB Q12 [facility] Last Admin: 10/29/16 11:19 Dose: 200 mls/hr Sodium Chloride (Sodium Chloride 0.9%) 1,000 mls @ 100 mls/hr IV .Q10H [facility] Last Admin: 10/29/16 11:20 Dose: 100 mls/hr Lactulose (Enulose) 30 gm PO DAILY PRN PRN Reason: Constipation Ondansetron HCl (Zofran Inj) 4 mg IVP Q4 PRN PRN Reason: Nausea/Vomiting Oxycodone/Acetaminophen (Percocet 5/325 Mg Tab) 1 tab PO Q6 PRN PRN Reason: Pain, severe (8-10) Stop: 10/31/16 06:20 Last Admin: 10/29/16 11:26 Dose: 1 tab Pantoprazole Sodium (Protonix Inj) 40 mg IVP DAILY [facility] Last Admin: 10/29/16 11:21 Dose: 40 mg Potassium Chloride (Klor-Con 10) 10 meq PO DAILY [facility] Last Admin: 10/29/16 09:39 Dose: 10 meq Trazodone HCl (Desyrel) 50 mg PO HS [facility] Last Admin: 10/28/16 23:05 Dose: 50 mg Valsartan (Diovan) 320 mg PO DAILY [facility] Last Admin: 10/29/16 11:24 Dose: 320 mg - Labs Labs: 10/29/16 05:50 10/29/16 05:50 PT 13.9 Seconds (9.8-13.1) H 10/27/16 14:15 INR 1.3 (0.9-1.2) H 10/27/16 14:15 APTT 23.7 Seconds (25.6-37.1) L 10/27/16 14:15 Attending/Attestation - Attestation I have personally seen and examined this patient.: Yes I have fully participated in the care of the patient.: Yes I have reviewed all pertinent clinical information, including history, physical exam and plan: Yes Notes (Text): 10/29/16 18:37 Pt was seen and examined at bedside Agree with above note and assessment Pt with Cholelithiasis and possible Cholecystitis HIDA scan today NPO, IVF Serial abdominal exam IV antibiotics Plan d.w pt in detail Risk and benefit explained in detail.
[2016-10-28] MEDS: Potassium Chloride 10 mEq ER Tab PO SCH (08:35)
--- NOTE | 2016-10-28 08:42 | CP.PCM.HP ---
<Celia Colladocatalina - Last Filed: 10/28/16 14:23> History of Present Illness - History of Present Illness History of Present Illness: patient seen and examined with attending. 76 y/o female who presented to ED with complaint of abdominal pain in the RUQ and epigastrium. She was admitted previously to ICU with sepsis, d.c home on 10/23. She has nausea without vomiting. She has hx of chronic pancreatitis. This morning she continues to complain of some abdominal pain, concerned about right abdominal wall hematoma. She denies trauma to the area. She is lying in bed, and appears uncomfortable secondary pain. Present on Admission - Present on Admission Any Indicators Present on Admission: No Past Patient History - Infectious Disease Hx of Infectious Diseases: None - Tetanus Immunizations Tetanus Immunization: Unknown - Past Medical History & Family History Past Medical History?: Yes - Past Social History Smoking Status: Never Smoked - CARDIAC Hx Cardia Arrhythmia: Yes (Flutter) Hx Hypertension: Yes Hx Pacemaker: No Hx Peripheral Edema: Yes (+2) - PULMONARY Hx Bronchitis: Yes Hx Chronic Obstructive Pulmonary Disease (COPD): Yes Hx Pneumonia: Yes (5 YRS AGO) - HEENT Hx Cataracts: Yes - RENAL Hx Chronic Kidney Disease: No - ENDOCRINE/METABOLIC Hx Diabetes Mellitus Type 2: Yes - HEMATOLOGICAL/ONCOLOGICAL Hx Anemia: Yes Hx Human Immunodeficiency Virus (HIV): No - INTEGUMENTARY Hx Dermatological Problems: No - MUSCULOSKELETAL/RHEUMATOLOGICAL Hx Arthritis: Yes Hx Falls: Yes Hx Fractures: Yes Hx Osteoporosis: Yes - GASTROINTESTINAL Hx Pancreatitis: Yes - GENITOURINARY/GYNECOLOGICAL Hx Sexually Transmitted Disorders: No - PSYCHIATRIC Hx Anxiety: Yes Hx Depression: Yes Hx Substance Use: No - SURGICAL HISTORY Hx Carotid Endarterectomy: Yes - ANESTHESIA Hx Anesthesia: Yes Hx Anesthesia Reactions: No Hx Malignant Hyperthermia: No Meds Allergies/Adverse Reactions: Allergies Allergy/AdvReac Type Severity Reaction Status Date / Time Penicillins Allergy RASH Verified 10/15/16 18:18 Physical Exam - Constitutional Appears: Other (uncomfortable) - Head Exam Head Exam: ATRAUMATIC, NORMAL INSPECTION, NORMOCEPHALIC - Eye Exam Eye Exam: Normal appearance - ENT Exam ENT Exam: Mucous Membranes Moist - Respiratory Exam Respiratory Exam: NORMAL BREATHING PATTERN - Cardiovascular Exam Cardiovascular Exam: REGULAR RHYTHM, +S1, +S2. absent: Bradycardia, Tachycardia , Irregular Rhythm - GI/Abdominal Exam GI & Abdominal Exam: Normal Bowel Sounds, Soft, Tenderness (midepigastrium) Additional comments: right lower abdomen: some ecchymosis, palpable mass non tender - Neurological Exam Neurological exam: Alert, CN II-XII Intact, Oriented x3 - Psychiatric Exam Psychiatric exam: Depressed - Skin Additional comments: right abdomen: ecchymotic area Results - Vital Signs Recent Vital Signs: Last Vital Signs Temp 98.1 F 10/28/16 08:00 Pulse 92 H 10/28/16 08:36 Resp 20 10/28/16 08:00 BP 158/80 H 10/28/16 08:36 Pulse Ox 94 L 10/28/16 08:00 - Labs Result Diagrams: 10/28/16 06:00 10/28/16 05:40 Labs: Laboratory Results - last 24 hr 10/28/16 10/28/16 05:40 06:00 WBC 11.8 H RBC 3.44 L Hgb 10.1 L Hct 31.2 L MCV 90.8 MCH 29.5 MCHC 32.5 L RDW 13.9 Plt Count 418 H D MPV 8.4 Neut % (Auto) 72.8 Lymph % (Auto) 12.0 L [place] % (Auto) 12.4 H Eos % (Auto) 2.2 Baso % (Auto) 0.6 Neut # 8.6 H Lymph # 1.4 [place] # 1.5 H Eos # 0.3 Baso # 0.1 Sodium 138 Potassium 4.1 Chloride 99 Carbon Dioxide 30 Anion Gap 13 BUN 13 Creatinine 0.6 Est GFR ( Amer) > 60 Est GFR (Non-Af Amer) > 60 Random Glucose 107 Calcium 9.0 Total Bilirubin 0.8 AST 36 D ALT 25 Alkaline Phosphatase 86 Total Protein 7.4 Albumin 3.4 Globulin 4.0 Albumin/Globulin Ratio 0.9 L Lipase 38 Assessment & Plan - Assessment and Plan (Free Text) Assessment: 76 year old female admitted for abdominal pain, hx of chronic pancreatitis and right abdominal wall hematoma. continues to have some abdominal pain. She was admitted for +sirs criteria of : HR 113, WBC >12,000. Pt has leukocytosis, that is trending down, thrombocytosis that is improving, anemia. #Hematoma #Chronic Pancreatitis #Leukocytosis #Thrombocytosis #Anemia #DVT prophylaxis -Surgery consult appreciated: no intervention at this time -GI consult pending -PT for HIDA scan today if amenable -Await further recommendations from GI -scds -pt eval -f/u cbc <Polanco,William K - Last Filed: 11/04/16 13:42> Results - Vital Signs Recent Vital Signs: Last Vital Signs Temp 98 F 11/04/16 09:00 Pulse 91 H 11/04/16 10:14 Resp 18 11/04/16 09:00 BP 121/79 11/04/16 10:14 Pulse Ox 96 11/04/16 09:00 - Labs Result Diagrams: 11/03/16 07:10 11/03/16 07:10 Labs: Laboratory Results - last 24 hr 11/03/16 11/03/16 11/03/16 05:27 15:48 21:55 POC Glucose (mg/dL) 126 H 163 H 155 H 11/04/16 06:42 POC Glucose (mg/dL) 126 H Assessment & Plan - Assessment and Plan (Free Text) Assessment: Patient was personally seen and examined by me in rounds with residents. Available labs and diagnostic data reviewed. Case, Patient's condition and management plan Discussed with residents in rounds. Agree with resident's progress note. Plan: As ordered.
--- NOTE | 2016-10-28 08:42 | CARD ---
APPROVED REPORT EKG Measurement Heart [id number] <Conclusion> Sinus tachycardia Prolonged QT Abnormal ECG
--- NOTE | 2016-10-28 08:53 | CARD ---
APPROVED REPORT EKG Measurement Heart [id number] <Conclusion> Normal sinus rhythm Normal ECG
[2016-10-28] MEDS ORDERED: Enoxaparin 40 mg Syringe SC SCH (09:00)
[2016-10-28] MEDS: Ciprofloxacin 400mg/200ml D5W 400 MG/200 ML BAG IVPB SCH ×2 (11:23→21:22)
[2016-10-28] MEDS: Oxycodone/Acetaminophen 5/325 mg Tab PO PRN (12:16)
--- NOTE | 2016-10-28 16:35 | NM ---
PROCEDURE: Nuclear Medicine Hepatobiliary Scan HISTORY: r/o cholecystitis COMPARISON: None available. TECHNIQUE: 5.0 mCi of technetium 99m Mebrofenin was administered intravenously. Planar images of the abdomen were obtained at 5 min intervals to 60 mins. Delayed images were also obtained. FINDINGS: LIVER: Timely and homogenous uptake. COMMON BILE DUCT: identified at 10 mins. GALLBLADDER: Not identified up to 4 hours post isotope administration with no significant residual isotope identified in the liver. SMALL BOWEL: Identified at 15 mins. IMPRESSION: 1. Gallbladder is not identified throughout the examination with findings suspicious for acute cystic duct obstruction. 2. Patent common bile duct.
--- NOTE | 2016-10-28 22:14 | CP.PCM.CON ---
History of Present Illness - History of Present Illness History of Present Illness: 76 yo female with past h/o at least 3 episodes of pancreatitis associated with elevated amylase and lipase admitted with elevated WBC,nausea and generalized abdominal pain. About one year ago she underwent EUS with Dr. Hagan to evaluate dilated pancreatic duct and no pancreatic or ampullary mass was seen . 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 This admission her amylase/lipase were normal. Has h /o DM2, htn, and CKD. Review of Systems - EENT Eyes: absent: Blurred Vision Ears: absent: Ear Pain Nose/Mouth/Throat: absent: Epistaxis - Cardiovascular Cardiovascular: absent: Chest Pain - Respiratory Respiratory: absent: Cough - Gastrointestinal Gastrointestinal: As Per HPI Past Patient History - Infectious Disease Hx of Infectious Diseases: None - Tetanus Immunizations Tetanus Immunization: Unknown - Past Medical History & Family History Past Medical History?: Yes - Past Social History Smoking Status: Never Smoked - CARDIAC Hx Cardia Arrhythmia: Yes (Flutter) Hx Hypertension: Yes Hx Pacemaker: No Hx Peripheral Edema: Yes (+2) - PULMONARY Hx Bronchitis: Yes Hx Chronic Obstructive Pulmonary Disease (COPD): Yes Hx Pneumonia: Yes (5 YRS AGO) - HEENT Hx Cataracts: Yes - RENAL Hx Chronic Kidney Disease: No - ENDOCRINE/METABOLIC Hx Diabetes Mellitus Type 2: Yes - HEMATOLOGICAL/ONCOLOGICAL Hx Anemia: Yes Hx Human Immunodeficiency Virus (HIV): No - INTEGUMENTARY Hx Dermatological Problems: No - MUSCULOSKELETAL/RHEUMATOLOGICAL Hx Arthritis: Yes Hx Falls: Yes Hx Fractures: Yes Hx Osteoporosis: Yes - GASTROINTESTINAL Hx Pancreatitis: Yes - GENITOURINARY/GYNECOLOGICAL Hx Sexually Transmitted Disorders: No - PSYCHIATRIC Hx Anxiety: Yes Hx Depression: Yes Hx Substance Use: No - SURGICAL HISTORY Hx Carotid Endarterectomy: Yes - ANESTHESIA Hx Anesthesia: Yes Hx Anesthesia Reactions: No Hx Malignant Hyperthermia: No Meds Allergies/Adverse Reactions: Allergies Allergy/AdvReac Type Severity Reaction Status Date / Time Penicillins Allergy RASH Verified 10/15/16 18:18 - Medications Medications: Current Medications Alprazolam (Xanax) 0.5 mg PO BID [facility] Last Admin: 10/28/16 16:19 Dose: 0.5 mg Amlodipine Besylate (Norvasc) 5 mg PO DAILY [facility] Last Admin: 10/28/16 08:36 Dose: 5 mg Duloxetine HCl (Cymbalta) 60 mg PO HS [facility] Enoxaparin Sodium (Lovenox) 40 mg SC DAILY [facility] PRN Reason: Protocol Last Admin: 10/28/16 11:22 Dose: 40 mg Ergocalciferol (Drisdol 50,000 Intl Units Cap) 1 cap PO MO [facility] Gabapentin (Neurontin) 600 mg PO TID [facility] Last Admin: 10/28/16 16:06 Dose: 600 mg Hydrochlorothiazide (Hydrodiuril) 25 mg PO DAILY [facility] Last Admin: 10/28/16 08:35 Dose: 25 mg Lactated Ringer's (Lactated Ringer's) 1,000 mls @ 150 mls/hr IV .Q6H40M [facility] Last Admin: 10/28/16 15:30 Dose: 150 mls/hr Ciprofloxacin (Cipro 400mg/200ml Dsw) 400 mg in 200 mls @ 200 mls/hr IVPB Q12 [facility] Last Admin: 10/28/16 21:22 Dose: 200 mls/hr Lactulose (Enulose) 30 gm PO DAILY PRN PRN Reason: Constipation Ondansetron HCl (Zofran Inj) 4 mg IVP Q4 PRN PRN Reason: Nausea/Vomiting Oxycodone/Acetaminophen (Percocet 5/325 Mg Tab) 1 tab PO Q6 PRN PRN Reason: Pain, severe (8-10) Stop: 10/31/16 06:20 Last Admin: 10/28/16 12:16 Dose: 1 tab Pantoprazole Sodium (Protonix Inj) 40 mg IVP DAILY [facility] Last Admin: 10/28/16 08:36 Dose: 40 mg Potassium Chloride (Klor-Con 10) 10 meq PO DAILY [facility] Last Admin: 10/28/16 08:35 Dose: 10 meq Trazodone HCl (Desyrel) 50 mg PO HS [facility] Valsartan (Diovan) 320 mg PO DAILY [facility] Last Admin: 10/28/16 08:34 Dose: 320 mg Physical Exam - Head Exam Head Exam: ATRAUMATIC - Eye Exam Eye Exam: Normal appearance Pupil Exam: PERRL - ENT Exam ENT Exam: Mucous Membranes Moist - Neck Exam Neck exam: Positive for: Normal Inspection - Respiratory Exam Respiratory Exam: Clear to Auscultation Bilateral - Cardiovascular Exam Cardiovascular Exam: REGULAR RHYTHM - GI/Abdominal Exam GI & Abdominal Exam: Normal Bowel Sounds, Soft, Tenderness Additional comments: lower abdominal tenderness. markedly obese Results - Vital Signs Recent Vital Signs: Last Vital Signs Temp 97.9 F 10/28/16 20:18 Pulse 103 H 10/28/16 20:18 Resp 18 10/28/16 20:18 BP 151/84 H 10/28/16 20:18 Pulse Ox 97 10/28/16 20:18 - Labs Result Diagrams: 10/28/16 06:00 10/28/16 05:40 Labs: Laboratory Results - last 24 hr 10/28/16 10/28/16 10/28/16 05:40 06:00 12:06 WBC 11.8 H RBC 3.44 L Hgb 10.1 L Hct 31.2 L MCV 90.8 MCH 29.5 MCHC 32.5 L RDW 13.9 Plt Count 418 H D MPV 8.4 Neut % (Auto) 72.8 Lymph % (Auto) 12.0 L Conway % (Auto) 12.4 H Eos % (Auto) 2.2 Baso % (Auto) 0.6 Neut # 8.6 H Lymph # 1.4 Conway # 1.5 H Eos # 0.3 Baso # 0.1 Sodium 138 Potassium 4.1 Chloride 99 Carbon Dioxide 30 Anion Gap 13 BUN 13 Creatinine 0.6 Est GFR ( Amer) > 60 Est GFR (Non-Af Amer) > 60 POC Glucose (mg/dL) 97 Random Glucose 107 Calcium 9.0 Total Bilirubin 0.8 AST 36 D ALT 25 Alkaline Phosphatase 86 Total Protein 7.4 Albumin 3.4 Globulin 4.0 Albumin/Globulin Ratio 0.9 L Lipase 38 10/28/16 15:54 WBC RBC Hgb Hct MCV MCH MCHC RDW Plt Count MPV Neut % (Auto) Lymph % (Auto) Conway % (Auto) Eos % (Auto) Baso % (Auto) Neut # Lymph # Conway # Eos # Baso # Sodium Potassium Chloride Carbon Dioxide Anion Gap BUN Creatinine Est GFR ( Amer) Est GFR (Non-Af Amer) POC Glucose (mg/dL) 99 Random Glucose Calcium Total Bilirubin AST ALT Alkaline Phosphatase Total Protein Albumin Globulin Albumin/Globulin Ratio Lipase Assessment & Plan (1) Pancreatitis Status: Acute (2) Abdominal pain Assessment and Plan: This admission amylase and lipase are normal. At present her abdominal pain is mostly in the lower abdomen. As such there is no clinical evidence of pancreatitis. HIDA scan showed no visualization of gallbladder and this needs to be evaluated by surgery. Abdominal pain could also be from passing gastroenteritis. Will follow with you. Status: Acute
[2016-10-29] MEDS: Lactated Ringer's 1,000 ML IV SCH (06:07)
[2016-10-29 07:24] LABS: BASO % 0.4 % (0.0-2.0); EOS # 0.2 K/uL (0.0-0.7); EOS % 1.6 % (0.0-4.0); HEMATOCRIT 33.3 % (34.0-47.0); LYMPH # 1.4 K/uL (1.0-4.3); LYMPH % 12.3 % (20.0-40.0); MEAN CELL VOLUME 90.3 fl (81.0-99.0); MEAN CORPUSCULAR HEMOGLOBIN 28.3 pg (27.0-31.0); MEAN CORPUSCULAR HGB CONC 31.4 g/dL (33.0-37.0); MEAN PLATELET VOLUME 8.1 fl (7.2-11.7); MONO # 1.4 K/uL (0.0-0.8); MONO % 12.3 % (0.0-10.0); NEUT # 8.4 K/uL (1.8-7.0); NEUT % 73.4 % (50.0-75.0); RED CELL DISTRIBUTION WIDTH 14.3 % (11.5-14.5); WHITE BLOOD COUNT 11.4 K/uL (4.8-10.8)
[2016-10-29 07:34] LABS: ALKALINE PHOSPHATASE 90 U/L (38-126); ALT/SGPT 12 U/L (9-52); AST/SGOT 23 U/L (14-36); BILIRUBIN,TOTAL 0.9 mg/dl (0.2-1.3); BLOOD UREA NITROGEN 8 mg/dl (7-17); CALCIUM 9.3 mg/dL (8.4-10.2); CARBON DIOXIDE 32 mmol/L (22-30); CHLORIDE 99 mmol/L (98-107); GFR AFRICAN-AMERICAN > 60; GLUCOSE,RANDOM 118 mg/dL (65-105); POTASSIUM 3.8 MMOL/L (3.6-5.0); SODIUM 139 mmol/l (132-148); TOTAL PROTEIN 7.7 G/DL (6.3-8.2)
[2016-10-29 07:42] LABS: ALB/GLOB RATIO 0.8 (1.0-2.1)
--- NOTE | 2016-10-29 07:53 | CP.PCM.PN ---
<Kimberly Vance - Last Filed: 10/29/16 07:56> Subjective - Date & Time of Evaluation Date of Evaluation: 10/29/16 Time of Evaluation: 07:20 - Subjective Subjective: Patient seen and examined this AM. IMELDAO. Patient states she is very tired but denies any pain, nausea, and vomiting Objective - Vital Signs/Intake and Output Vital Signs (last 24 hours): Temp Pulse Resp BP Pulse Ox 97.9 F 107 H 16 148/83 94 L 10/29/16 05:29 10/29/16 05:29 10/29/16 05:29 10/29/16 05:29 10/29/16 05:29 Intake and Output: 10/29/16 10/29/16 06:59 18:59 Intake Total 1800 Balance 1800 - Medications Medications: Current Medications Alprazolam (Xanax) 0.5 mg PO BID [facility] Last Admin: 10/28/16 16:19 Dose: 0.5 mg Amlodipine Besylate (Norvasc) 5 mg PO DAILY [facility] Last Admin: 10/28/16 08:36 Dose: 5 mg Duloxetine HCl (Cymbalta) 60 mg PO HS [facility] Last Admin: 10/28/16 23:04 Dose: 60 mg Enoxaparin Sodium (Lovenox) 40 mg SC DAILY [facility] PRN Reason: Protocol Last Admin: 10/28/16 11:22 Dose: 40 mg Ergocalciferol (Drisdol 50,000 Intl Units Cap) 1 cap PO MO [facility] Gabapentin (Neurontin) 600 mg PO TID [facility] Last Admin: 10/28/16 16:06 Dose: 600 mg Hydrochlorothiazide (Hydrodiuril) 25 mg PO DAILY [facility] Last Admin: 10/28/16 08:35 Dose: 25 mg Lactated Ringer's (Lactated Ringer's) 1,000 mls @ 150 mls/hr IV .Q6H40M [facility] Last Admin: 10/29/16 06:07 Dose: 150 mls/hr Ciprofloxacin (Cipro 400mg/200ml Dsw) 400 mg in 200 mls @ 200 mls/hr IVPB Q12 [facility] Last Admin: 10/28/16 21:22 Dose: 200 mls/hr Lactulose (Enulose) 30 gm PO DAILY PRN PRN Reason: Constipation Ondansetron HCl (Zofran Inj) 4 mg IVP Q4 PRN PRN Reason: Nausea/Vomiting Oxycodone/Acetaminophen (Percocet 5/325 Mg Tab) 1 tab PO Q6 PRN PRN Reason: Pain, severe (8-10) Stop: 10/31/16 06:20 Last Admin: 10/28/16 12:16 Dose: 1 tab Pantoprazole Sodium (Protonix Inj) 40 mg IVP DAILY [facility] Last Admin: 10/28/16 08:36 Dose: 40 mg Potassium Chloride (Klor-Con 10) 10 meq PO DAILY [facility] Last Admin: 10/28/16 08:35 Dose: 10 meq Trazodone HCl (Desyrel) 50 mg PO HS [facility] Last Admin: 10/28/16 23:05 Dose: 50 mg Valsartan (Diovan) 320 mg PO DAILY [facility] Last Admin: 10/28/16 08:34 Dose: 320 mg - Labs Labs: 10/29/16 05:50 10/29/16 05:50 PT 13.9 Seconds (9.8-13.1) H 10/27/16 14:15 INR 1.3 (0.9-1.2) H 10/27/16 14:15 APTT 23.7 Seconds (25.6-37.1) L 10/27/16 14:15 - Constitutional Appears: Non-toxic, No Acute Distress - Head Exam Head Exam: ATRAUMATIC, NORMOCEPHALIC - Eye Exam Eye Exam: Normal appearance. absent: Conjunctival injection, Scleral icterus - ENT Exam ENT Exam: Mucous Membranes Moist, Normal Oropharynx - Respiratory Exam Respiratory Exam: NORMAL BREATHING PATTERN. absent: Accessory Muscle Use, Respiratory Distress - Cardiovascular Exam Cardiovascular Exam: RRR - GI/Abdominal Exam GI & Abdominal Exam: Soft, Tenderness (RUQ). absent: Distended - Extremities Exam Extremities Exam: absent: Calf Tenderness, Pedal Edema, Tenderness - Neurological Exam Neurological Exam: Alert, Awake, Oriented x3 - Psychiatric Exam Psychiatric exam: Flat Affect, Normal Mood - Skin Skin Exam: Dry, Intact, Normal Color, Warm Assessment and Plan - Assessment and Plan (Free Text) Assessment: 76 y/o female w/abdominal pain 2/2 acute cholecystitis on top of chronic pancreatitis improving leukocytosis LFT's wnl HIDA positive yesterday Plan: -IR consult for possible cholecystostomy tube due to comorbidities -Continue IV abx -IVF hydration -GI f/u -pain control further recs per Dr. Barry Vance, PGY2 <Kyle Reddy - Last Filed: 10/29/16 18:48> Objective - Vital Signs/Intake and Output Vital Signs (last 24 hours): Temp Pulse Resp BP Pulse Ox 98.1 F 107 H 20 136/79 98 10/29/16 15:57 10/29/16 16:36 10/29/16 15:57 10/29/16 15:57 10/29/16 16:36 Intake and Output: 10/29/16 10/29/16 06:59 18:59 Intake Total 1800 1400 Output Total 801 Balance 1800 599 - Medications Medications: Current Medications Alprazolam (Xanax) 0.5 mg PO BID [facility] Last Admin: 10/29/16 17:36 Dose: 0.5 mg Amlodipine Besylate (Norvasc) 10 mg PO DAILY [facility] Duloxetine HCl (Cymbalta) 60 mg PO HS [facility] Last Admin: 10/28/16 23:04 Dose: 60 mg Enoxaparin Sodium (Lovenox) 40 mg SC DAILY [facility] PRN Reason: Protocol Last Admin: 10/28/16 11:22 Dose: 40 mg Ergocalciferol (Drisdol 50,000 Intl Units Cap) 1 cap PO MO [facility] Gabapentin (Neurontin) 600 mg PO TID [facility] Last Admin: 10/29/16 17:38 Dose: 600 mg Hydrochlorothiazide (Hydrodiuril) 25 mg PO DAILY [facility] Last Admin: 10/29/16 11:25 Dose: 25 mg Ciprofloxacin (Cipro 400mg/200ml Dsw) 400 mg in 200 mls @ 200 mls/hr IVPB Q12 [facility] Last Admin: 10/29/16 11:19 Dose: 200 mls/hr Sodium Chloride (Sodium Chloride 0.9%) 1,000 mls @ 100 mls/hr IV .Q10H [facility] Last Admin: 10/29/16 11:20 Dose: 100 mls/hr Lactulose (Enulose) 30 gm PO DAILY PRN PRN Reason: Constipation Ondansetron HCl (Zofran Inj) 4 mg IVP Q4 PRN PRN Reason: Nausea/Vomiting Oxycodone/Acetaminophen (Percocet 5/325 Mg Tab) 1 tab PO Q6 PRN PRN Reason: Pain, severe (8-10) Stop: 10/31/16 06:20 Last Admin: 10/29/16 11:26 Dose: 1 tab Pantoprazole Sodium (Protonix Inj) 40 mg IVP DAILY [facility] Last Admin: 10/29/16 11:21 Dose: 40 mg Potassium Chloride (Klor-Con 10) 10 meq PO DAILY [facility] Last Admin: 10/29/16 09:39 Dose: 10 meq Trazodone HCl (Desyrel) 50 mg PO HS [facility] Last Admin: 10/28/16 23:05 Dose: 50 mg Valsartan (Diovan) 320 mg PO DAILY [facility] Last Admin: 10/29/16 11:24 Dose: 320 mg - Labs Labs: 10/29/16 05:50 10/29/16 05:50 PT 13.9 Seconds (9.8-13.1) H 10/27/16 14:15 INR 1.3 (0.9-1.2) H 10/27/16 14:15 APTT 23.7 Seconds (25.6-37.1) L 10/27/16 14:15 Attending/Attestation - Attestation I have personally seen and examined this patient.: Yes I have fully participated in the care of the patient.: Yes I have reviewed all pertinent clinical information, including history, physical exam and plan: Yes Notes (Text): 10/29/16 18:46 Pt was seen and examined at bedside Agree with above note and assessment Pt with Cholelithiasis and Cholecystitis, resolved Pancreatitis HIDA scan is positive Pt is s/p Cholecystostomy tube Repeat LFT in am Pt is c/o mild pain at site of drain C/w current mx DC plan Plan d.w pt in detail.
[2016-10-29] MEDS ORDERED: Lidocaine 1% Inj (20ml) ONE (08:32)
[2016-10-29] MEDS ORDERED: Propofol 10 mg/ml Inj (20 ML) ONE (09:05)
[2016-10-29] MEDS ORDERED: Midazolam 2 MG/2 ML VIAL ONE (09:05)
[2016-10-29] MEDS ORDERED: Iodixanol 320 MG/ML 100 ML BOTTLE IV ONE (09:09)
[2016-10-29] MEDS: Potassium Chloride 10 mEq ER Tab PO SCH (09:39)
--- NOTE | 2016-10-29 09:52 | PCM.SURG1 ---
Surgeon's Initial Post Op Note - Surgeon's Notes Surgeon: Milo Cleary Mechanic Chief: None Type of Anesthesia: IV Sedation Pre-Operative Diagnosis: Cholecystitis Operative Findings: Distended gallbladder. Post-Operative Diagnosis: Cholecystitis Operation Performed: Cholecystostomy tube placement Specimen/Specimens Removed: None Estimated Blood Loss: EBL {In ML}: 1 Blood Products Given: N/A Drains Used: No Drains Post-Op Condition: Fair Date of Surgery/Procedure: 10/29/16 Time of Surgery/Procedure: 09:45
[2016-10-29] MEDS ORDERED: Sodium Chloride 0.9% 500 ML IV ONE (10:50)
[2016-10-29] MEDS: Ciprofloxacin 400mg/200ml D5W 400 MG/200 ML BAG IVPB SCH ×2 (11:19→20:13)
[2016-10-29] MEDS: Sodium Chloride 0.9% 1,000 ML IV SCH ×2 (11:20→20:00)
[2016-10-29] MEDS: Oxycodone/Acetaminophen 5/325 mg Tab PO PRN ×2 (11:26→22:23)
--- NOTE | 2016-10-29 12:14 | PN ---
SUBJECTIVE: The patient is seen and examined. Interim events noted. Consults noted and appreciated. Surgery and Gastroenterology followup and intervention noted and appreciated. Case was discussed with surgery. The patient has positive HIDA scan and we will go for some intervention, maybe cholecystostomy tube or cholecystectomy. The patient feels okay, still has abdominal discomfort. No chest pain or shortness of breath. PHYSICAL EXAMINATION GENERAL: The patient is in no acute distress. VITAL SIGNS: Stable. HEART: S1 and S2, normal and regular. LUNGS: Good bilateral air exchange. ABDOMEN: Soft and nontender. No sign of acute abdomen. No guarding, no rigidity, no rebound. Bowel sounds are present. EXTREMITIES: No edema. No calf swelling. No tenderness. No acute ischemia. CENTRAL NERVOUS SYSTEM: Essentially unchanged. DIAGNOSTIC DATA: Available diagnostic data reviewed. ASSESSMENT: Overall, the patient's general medical condition is stable. PLAN: As ordered. William Polanco MD
[2016-10-29] MEDS ORDERED: Oxycodone/Acetaminophen 5/325 mg Tab PO ONE (14:27)
--- NOTE | 2016-10-29 14:45 | PQF GENQUE ---
Dr. Polanco, Please specify the underlying cause of SIRS: Infectious cause (please specify infectious process) versus Non-infectious cause (please specify non-infectious process) OR: Unable to determine H and P admitted for abdominal pain, hx of chronic pancreatitis and right abdominal wall hematoma. She was admitted for +sirs criteria of : HR 113, WBC >12,000. Pt has leukocytosis, that is trending down, thrombocytosis that is improving, anemia. #Hematoma #Chronic Pancreatitis #Leukocytosis #Thrombocytosis #Anemia 10/29 Surgical consult: w/abdominal pain 2/2 acute cholecystitis on top of chronic pancreatitis improving leukocytosis 10/29 Post-Op note; Pre-Operative Diagnosis: Cholecystitis Operative Findings: Distended gallbladder. Post-Operative Diagnosis: Cholecystitis Operation Performed: Cholecystostomy tube placement This form is a permanent part of the medical record Clarification of your documentation is requested to better reflect the severity of illness and intensity of treatment of your patient. Indicators present [] Specify: [] [] Specify: [] [] Specify: [] [] Specify: [] Location in the medical record that reflects the above clinical findings: [] Treatment Provided: [] PHYSICIAN'S RESPONSE Based on your medical judgment of the clinical indicators outlined above please clarify the following: [] Practitioner response [] If unable to determine, please check the box, sign and date. Present On Admission (POA) Indicator: [] Present at the time of admission [] Not present at the time of admission [] Clinically Undetermined In responding to this query, please exercise your independent professional judgment. The fact that a question is asked does not imply that any particular answer is desired or expected. Thank you for your clarification on this documentation. If you have any questions please call. * Thank you, Yohana Willard RN BSN ext. #[phone]: Melissa RATLIFF
--- NOTE | 2016-10-29 19:36 | CP.PCM.PN ---
Subjective - Date & Time of Evaluation Date of Evaluation: 10/29/16 Time of Evaluation: 19:34 - Subjective Subjective: Tolerating clears. Abdominal pain is less. Objective - Vital Signs/Intake and Output Vital Signs (last 24 hours): Temp Pulse Resp BP Pulse Ox 98.1 F 107 H 20 136/79 98 10/29/16 15:57 10/29/16 16:36 10/29/16 15:57 10/29/16 15:57 10/29/16 16:36 Intake and Output: 10/29/16 10/30/16 18:59 06:59 Intake Total 1400 Output Total 801 Balance 599 - Medications Medications: Current Medications Alprazolam (Xanax) 0.5 mg PO BID [facility] Last Admin: 10/29/16 17:36 Dose: 0.5 mg Amlodipine Besylate (Norvasc) 10 mg PO DAILY [facility] Duloxetine HCl (Cymbalta) 60 mg PO HS [facility] Last Admin: 10/28/16 23:04 Dose: 60 mg Enoxaparin Sodium (Lovenox) 40 mg SC DAILY [facility] PRN Reason: Protocol Last Admin: 10/28/16 11:22 Dose: 40 mg Ergocalciferol (Drisdol 50,000 Intl Units Cap) 1 cap PO MO [facility] Gabapentin (Neurontin) 600 mg PO TID [facility] Last Admin: 10/29/16 17:38 Dose: 600 mg Hydrochlorothiazide (Hydrodiuril) 25 mg PO DAILY [facility] Last Admin: 10/29/16 11:25 Dose: 25 mg Ciprofloxacin (Cipro 400mg/200ml Dsw) 400 mg in 200 mls @ 200 mls/hr IVPB Q12 [facility] Last Admin: 10/29/16 11:19 Dose: 200 mls/hr Sodium Chloride (Sodium Chloride 0.9%) 1,000 mls @ 100 mls/hr IV .Q10H [facility] Last Admin: 10/29/16 11:20 Dose: 100 mls/hr Lactulose (Enulose) 30 gm PO DAILY [facility]N PRN Reason: Constipation Ondansetron HCl (Zofran Inj) 4 mg IVP Q4 PRN PRN Reason: Nausea/Vomiting Oxycodone/Acetaminophen (Percocet 5/325 Mg Tab) 1 tab PO Q6 PRN PRN Reason: Pain, severe (8-10) Stop: 10/31/16 06:20 Last Admin: 10/29/16 11:26 Dose: 1 tab Pantoprazole Sodium (Protonix Inj) 40 mg IVP DAILY [facility] Last Admin: 10/29/16 11:21 Dose: 40 mg Potassium Chloride (Klor-Con 10) 10 meq PO DAILY [facility] Last Admin: 10/29/16 09:39 Dose: 10 meq Trazodone HCl (Desyrel) 50 mg PO HS [facility] Last Admin: 10/28/16 23:05 Dose: 50 mg Valsartan (Diovan) 320 mg PO DAILY [facility] Last Admin: 10/29/16 11:24 Dose: 320 mg - Labs Labs: 10/29/16 05:50 10/29/16 05:50 PT 13.9 Seconds (9.8-13.1) H 10/27/16 14:15 INR 1.3 (0.9-1.2) H 10/27/16 14:15 APTT 23.7 Seconds (25.6-37.1) L 10/27/16 14:15 - Head Exam Head Exam: ATRAUMATIC - Eye Exam Eye Exam: Normal appearance Pupil Exam: PERRL - ENT Exam ENT Exam: Normal Exam - Neck Exam Neck Exam: Normal Inspection - Respiratory Exam Respiratory Exam: NORMAL BREATHING PATTERN - Cardiovascular Exam Cardiovascular Exam: REGULAR RHYTHM, +S1, +S2 - GI/Abdominal Exam GI & Abdominal Exam: Soft, Tenderness, Normal Bowel Sounds Additional comments: epigastric and RUQ tenderness Assessment and Plan (1) Pancreatitis Status: Acute (2) Abdominal pain Assessment & Plan: S/p cholecystostomy for acute cholecystitis.. Clinically better. Status: Acute
[2016-10-30] MEDS: Oxycodone/Acetaminophen 5/325 mg Tab PO PRN ×4 (04:26→20:30)
[2016-10-30] MEDS: Sodium Chloride 0.9% 1,000 ML IV SCH ×2 (06:39→16:55)
[2016-10-30 07:09] LABS: BASO % 0.3 % (0.0-2.0); EOS # 0.2 K/uL (0.0-0.7); EOS % 1.4 % (0.0-4.0); HEMATOCRIT 33.2 % (34.0-47.0); LYMPH # 1.6 K/uL (1.0-4.3); LYMPH % 12.6 % (20.0-40.0); MEAN CELL VOLUME 90.3 fl (81.0-99.0); MEAN CORPUSCULAR HGB CONC 32.2 g/dL (33.0-37.0); MEAN PLATELET VOLUME 8.1 fl (7.2-11.7); MONO # 1.6 K/uL (0.0-0.8); MONO % 12.8 % (0.0-10.0); NEUT # 9.1 K/uL (1.8-7.0); NEUT % 72.9 % (50.0-75.0); NRBC % 0.1 % (0.0-0.0); RED CELL DISTRIBUTION WIDTH 13.8 % (11.5-14.5); WHITE BLOOD COUNT 12.5 K/uL (4.8-10.8)
[2016-10-30 07:27] LABS: ALB/GLOB RATIO 0.9 (1.0-2.1); ALKALINE PHOSPHATASE 80 U/L (38-126); ALT/SGPT 21 U/L (9-52); AST/SGOT 20 U/L (14-36); BILIRUBIN,TOTAL 0.9 mg/dl (0.2-1.3); BLOOD UREA NITROGEN 8 mg/dl (7-17); CALCIUM 8.7 mg/dL (8.4-10.2); CARBON DIOXIDE 30 mmol/L (22-30); CHLORIDE 96 mmol/L (98-107); GFR AFRICAN-AMERICAN > 60; GLUCOSE,RANDOM 126 mg/dL (65-105); LIPASE 33 U/L (23-300); POTASSIUM 3.8 MMOL/L (3.6-5.0); SODIUM 137 mmol/l (132-148); TOTAL PROTEIN 7.6 G/DL (6.3-8.2)
[2016-10-30] MEDS: Ciprofloxacin 400mg/200ml D5W 400 MG/200 ML BAG IVPB SCH (10:00)
[2016-10-30] MEDS: Potassium Chloride 10 mEq ER Tab PO SCH (10:04)
--- NOTE | 2016-10-30 10:23 | CT ---
PROCEDURE: Date of procedure: 10/29/2016 Procedure: 1. Percutaneous Cholecystostomy tube placement Medications: The patient was sedated by the anesthesiologist along with physiologic monitoring. 8 cubic centimeters lidocaine 2 percent HISTORY: Acute cholecystitis TECHNIQUE: Following informed consent the patient right abdomen was marked. The patient was placed supine on the interventional table and procedure time-out was called. Ultrasound showed distended gallbladder. At the patient sedated, the skin was anesthetized with 2 percent lidocaine. Under direct ultrasound guidance, a orderTopia catheter was advanced percutaneously into the gallbladder. Upon return of bile, an 035 wire was advanced into the gallbladder and was coiled within the gallbladder under fluoroscopy. The tract was dilated to accommodate 8.5 Syriac drainage catheter which was formed within the gallbladder. Position of the catheter was confirmed with contrast injection which showed a distended gallbladder. The cystic duct is patent. There is abrupt cut off of contrast seen within the distal CBD. IMPRESSION: Percutaneous placement of a cholecystostomy tube. The cystic duct is patent. There is cut off of contrast seen in distal CBD which may relate to a CBD stone.
[2016-10-30 10:48] LABS: AMYLASE 49 U/L (30-110)
--- NOTE | 2016-10-30 11:17 | CP.PCM.PN ---
<Kimberly Vance - Last Filed: 10/30/16 11:19> Subjective - Date & Time of Evaluation Date of Evaluation: 10/30/16 Time of Evaluation: 10:20 - Subjective Subjective: Patient seen and examined at bedside this AM. IMELDAO. Patient tolerated the percutaneous cholecystostomy tube placement well. Patient stated she had some pain after eating soup but no nausea or vomiting and no pain now. Objective - Vital Signs/Intake and Output Vital Signs (last 24 hours): Temp Pulse Resp BP Pulse Ox 97.8 F 88 18 132/74 98 10/30/16 07:54 10/30/16 09:58 10/30/16 07:54 10/30/16 09:58 10/30/16 07:54 Intake and Output: 10/30/16 10/30/16 06:59 18:59 Intake Total 1700 Output Total 233 Balance 1467 - Medications Medications: Current Medications Alprazolam (Xanax) 0.5 mg PO BID [facility] Last Admin: 10/30/16 10:04 Dose: 0.5 mg Amlodipine Besylate (Norvasc) 10 mg PO DAILY [facility] Last Admin: 10/30/16 09:58 Dose: 10 mg Duloxetine HCl (Cymbalta) 60 mg PO HS [facility] Last Admin: 10/29/16 21:12 Dose: 60 mg Enoxaparin Sodium (Lovenox) 40 mg SC DAILY [facility] PRN Reason: Protocol Ergocalciferol (Drisdol 50,000 Intl Units Cap) 1 cap PO MO [facility] Gabapentin (Neurontin) 600 mg PO TID [facility] Last Admin: 10/30/16 09:59 Dose: 600 mg Hydrochlorothiazide (Hydrodiuril) 25 mg PO DAILY [facility] Last Admin: 10/30/16 09:57 Dose: 25 mg Ciprofloxacin (Cipro 400mg/200ml Dsw) 400 mg in 200 mls @ 200 mls/hr IVPB Q12 [facility] Last Admin: 10/30/16 10:00 Dose: 200 mls/hr Sodium Chloride (Sodium Chloride 0.9%) 1,000 mls @ 100 mls/hr IV .Q10H [facility] Last Admin: 10/30/16 06:39 Dose: 100 mls/hr Lactulose (Enulose) 30 gm PO DAILY PRN PRN Reason: Constipation Ondansetron HCl (Zofran Inj) 4 mg IVP Q4 PRN PRN Reason: Nausea/Vomiting Oxycodone/Acetaminophen (Percocet 5/325 Mg Tab) 1 tab PO Q6 PRN PRN Reason: Pain, severe (8-10) Stop: 10/31/16 06:20 Last Admin: 10/30/16 10:55 Dose: 1 tab Pantoprazole Sodium (Protonix Inj) 40 mg IVP DAILY [facility] Last Admin: 10/30/16 09:57 Dose: 40 mg Potassium Chloride (Klor-Con 10) 10 meq PO DAILY [facility] Last Admin: 10/30/16 10:04 Dose: 10 meq Trazodone HCl (Desyrel) 50 mg PO HS [facility] Last Admin: 10/29/16 21:12 Dose: 50 mg Valsartan (Diovan) 320 mg PO DAILY [facility] Last Admin: 10/30/16 10:01 Dose: 320 mg - Labs Labs: 10/30/16 06:00 10/30/16 06:00 PT 13.9 Seconds (9.8-13.1) H 10/27/16 14:15 INR 1.3 (0.9-1.2) H 10/27/16 14:15 APTT 23.7 Seconds (25.6-37.1) L 10/27/16 14:15 - Constitutional Appears: Non-toxic, No Acute Distress, Chronically Ill - Head Exam Head Exam: ATRAUMATIC, NORMOCEPHALIC - Eye Exam Eye Exam: Normal appearance. absent: Conjunctival injection, Scleral icterus - ENT Exam ENT Exam: Mucous Membranes Moist, Normal Oropharynx - Respiratory Exam Respiratory Exam: NORMAL BREATHING PATTERN. absent: Accessory Muscle Use, Respiratory Distress - Cardiovascular Exam Cardiovascular Exam: RRR - GI/Abdominal Exam GI & Abdominal Exam: Soft, Tenderness (RUQ around the cholecystostomy tube). absent: Distended Additional comments: subcutaneous hematoma in the RLQ around the an injection site improved since yesterday. cholecystostomy tube in the RUQ with small amount of clear green, bilious fluid output - Extremities Exam Extremities Exam: absent: Calf Tenderness, Pedal Edema - Neurological Exam Neurological Exam: Alert, Awake, Oriented x3 - Psychiatric Exam Psychiatric exam: Normal Affect, Normal Mood - Skin Skin Exam: Dry, Normal Color, Warm Assessment and Plan - Assessment and Plan (Free Text) Assessment: 76 y/o female with cholecystitis and cholelithiasis and chronic pancreatitis s/ p IR cholecystostomy tube placement yesterday Tolerated procedure well Tolerating liquid diet LFT's wnl Plan: -No indication for further surgical intervention at this time. Patient is clinically improving s/p cholecystostomy drainage. Continue drainage of the gall bladder with cholecystostomy tube. Patient should follow up with Dr. Reddy as an outpatient for further surgical planning -Continue abx -IVF hydration -Advance diet as tolerated -pain control Please contact surgery with any further questions or concerns. Thank you for this consult. Discussed with Dr. Barry Vance, PGY2 <Kyle Reddy - Last Filed: 10/31/16 19:47> Objective - Vital Signs/Intake and Output Vital Signs (last 24 hours): Temp Pulse Resp BP Pulse Ox 97.9 F 88 20 128/87 95 10/31/16 16:22 10/31/16 16:22 10/31/16 16:22 10/31/16 16:22 10/31/16 16:22 Intake and Output: 10/31/16 11/01/16 18:59 06:59 Output Total 10 Balance -10 - Medications Medications: Current Medications Alprazolam (Xanax) 0.5 mg PO BID [facility] Last Admin: 10/31/16 15:59 Dose: 0.5 mg Amlodipine Besylate (Norvasc) 10 mg PO DAILY [facility] Last Admin: 10/31/16 09:20 Dose: 10 mg Duloxetine HCl (Cymbalta) 60 mg PO HS [facility] Last Admin: 10/30/16 23:01 Dose: 60 mg Enoxaparin Sodium (Lovenox) 40 mg SC DAILY [facility] PRN Reason: Protocol Last Admin: 10/31/16 09:21 Dose: 40 mg Ergocalciferol (Drisdol 50,000 Intl Units Cap) 1 cap PO MO [facility] Gabapentin (Neurontin) 600 mg PO TID [facility] Last Admin: 10/31/16 16:00 Dose: 600 mg Hydrochlorothiazide (Hydrodiuril) 25 mg PO DAILY [facility] Last Admin: 10/31/16 09:22 Dose: 25 mg Sodium Chloride (Sodium Chloride 0.9%) 1,000 mls @ 100 mls/hr IV .Q10H [facility] Last Admin: 10/31/16 16:01 Dose: 100 mls/hr Meropenem 500 mg/ Sodium (Chloride) 100 mls @ 100 mls/hr IVPB Q8 [facility] Last Admin: 10/31/16 15:59 Dose: 100 mls/hr Lactulose (Enulose) 30 gm PO DAILY PRN PRN Reason: Constipation Ondansetron HCl (Zofran Inj) 4 mg IVP Q4 PRN PRN Reason: Nausea/Vomiting Last Admin: 10/31/16 16:07 Dose: 4 mg Oxycodone/Acetaminophen (Percocet 5/325 Mg Tab) 2 tab PO Q6 PRN PRN Reason: Pain, severe (8-10) Stop: 11/02/16 11:36 Last Admin: 10/31/16 15:56 Dose: 2 tab Oxycodone/Acetaminophen (Percocet 5/325 Mg Tab) 1 tab PO Q6 PRN PRN Reason: Pain, moderate (4-7) Stop: 11/02/16 11:37 Pantoprazole Sodium (Protonix Inj) 40 mg IVP DAILY [facility] Last Admin: 10/31/16 09:23 Dose: 40 mg Potassium Chloride (Klor-Con 10) 10 meq PO DAILY [facility] Last Admin: 10/31/16 09:22 Dose: 10 meq Trazodone HCl (Desyrel) 50 mg PO HS [facility] Last Admin: 10/30/16 23:01 Dose: 50 mg Valsartan (Diovan) 320 mg PO DAILY [facility] Last Admin: 10/31/16 09:22 Dose: 320 mg - Labs Labs: 10/31/16 06:00 10/31/16 06:00 PT 13.9 Seconds (9.8-13.1) H 10/27/16 14:15 INR 1.3 (0.9-1.2) H 10/27/16 14:15 APTT 23.7 Seconds (25.6-37.1) L 10/27/16 14:15 Attending/Attestation - Attestation I have personally seen and examined this patient.: Yes I have fully participated in the care of the patient.: Yes I have reviewed all pertinent clinical information, including history, physical exam and plan: Yes Notes (Text): 10/31/16 19:46 Pt was seen and examined at bedside Agree with above note and assessment Pt with Cholecystitis with Cholelithiasis s/p Cholecystotomy tube Reg low fat C/w current mx Pt can be DC home on po antibiotic F/u as out pt Plan d.w pt in detail Plan d.w primary zeb
--- NOTE | 2016-10-30 11:29 | CP.PCM.CON ---
History of Present Illness - History of Present Illness History of Present Illness: Infectious Disease Consult Note- HPI- patient known to me from her previous admission in 09/2016. Pt. is a 76 year old female with PMH of DM Ii, HTN, who wasa admitted initially last month for RUQ pain and was found to have cholelithiasis and gallstone pancreatitis and leukocytosis and fever and had one pos coag neg staph blood cx during that admission (possible contaminat) for which she was treated with IV vanco and Iv meropenem for her sepsis and cholecystitis and did well on that regimen with resolution of her leukocytosis and her elevated lipase and LFTs resolved as well and all her repeat blood cx were negative and as per surgical team no need for surgical intervention during last visit and they suggested perhaps cholecystectomy as outpatient,However, pt. is now admitted again with c/ o RUQ pain , nausea and is found to have mild elevation in wbc. Pt. s/p cholecystostomy drain By IR yesterday and I'm asked to evaluate and help with antibiotic management. Pt. currently deneis any chills or fever and denies any nausea but states she does have pain in RUQ region but mild, denies any diarrhea, denies any dysurea. Review of Systems - Review of Systems Review of Systems: ROS- denies any fever or chills now, denies any ROBLES, denies any cough, denies any sob , denies any chest pain, denies any nausea now but had it on admission, + tenderness in RUQ region, no radiation, denies any diarrhea, denies any dysurea Past Patient History - Infectious Disease Hx of Infectious Diseases: None - Tetanus Immunizations Tetanus Immunization: Unknown - Past Medical History & Family History Past Medical History?: Yes - Past Social History Smoking Status: Never Smoked - CARDIAC Hx Cardia Arrhythmia: Yes (Flutter) Hx Hypertension: Yes Hx Peripheral Edema: Yes (+2) - PULMONARY Hx Bronchitis: Yes Hx Chronic Obstructive Pulmonary Disease (COPD): Yes Hx Pneumonia: Yes (5 YRS AGO) - HEENT Hx Cataracts: Yes - RENAL Hx Chronic Kidney Disease: No - ENDOCRINE/METABOLIC Hx Diabetes Mellitus Type 2: Yes - INTEGUMENTARY Hx Dermatological Problems: No - MUSCULOSKELETAL/RHEUMATOLOGICAL Hx Arthritis: Yes Hx Falls: Yes Hx Fractures: Yes Hx Osteoporosis: Yes - GASTROINTESTINAL Hx Pancreatitis: Yes - GENITOURINARY/GYNECOLOGICAL Hx Sexually Transmitted Disorders: No - PSYCHIATRIC Hx Anxiety: Yes Hx Depression: Yes Hx Substance Use: No - SURGICAL HISTORY Hx Carotid Endarterectomy: Yes - ANESTHESIA Hx Anesthesia: Yes Hx Anesthesia Reactions: No Hx Malignant Hyperthermia: No Meds Allergies/Adverse Reactions: Allergies Allergy/AdvReac Type Severity Reaction Status Date / Time Penicillins Allergy RASH Verified 10/15/16 18:18 - Medications Medications: Current Medications Alprazolam (Xanax) 0.5 mg PO BID [facility] Last Admin: 10/30/16 10:04 Dose: 0.5 mg Amlodipine Besylate (Norvasc) 10 mg PO DAILY [facility] Last Admin: 10/30/16 09:58 Dose: 10 mg Duloxetine HCl (Cymbalta) 60 mg PO HS [facility] Last Admin: 10/29/16 21:12 Dose: 60 mg Enoxaparin Sodium (Lovenox) 40 mg SC DAILY [facility] PRN Reason: Protocol Ergocalciferol (Drisdol 50,000 Intl Units Cap) 1 cap PO MO [facility] Gabapentin (Neurontin) 600 mg PO TID [facility] Last Admin: 10/30/16 09:59 Dose: 600 mg Hydrochlorothiazide (Hydrodiuril) 25 mg PO DAILY [facility] Last Admin: 10/30/16 09:57 Dose: 25 mg Ciprofloxacin (Cipro 400mg/200ml Dsw) 400 mg in 200 mls @ 200 mls/hr IVPB Q12 [facility] Last Admin: 10/30/16 10:00 Dose: 200 mls/hr Sodium Chloride (Sodium Chloride 0.9%) 1,000 mls @ 100 mls/hr IV .Q10H [facility] Last Admin: 10/30/16 06:39 Dose: 100 mls/hr Lactulose (Enulose) 30 gm PO DAILY PRN PRN Reason: Constipation Ondansetron HCl (Zofran Inj) 4 mg IVP Q4 PRN PRN Reason: Nausea/Vomiting Oxycodone/Acetaminophen (Percocet 5/325 Mg Tab) 1 tab PO Q6 PRN PRN Reason: Pain, severe (8-10) Stop: 10/31/16 06:20 Last Admin: 10/30/16 10:55 Dose: 1 tab Pantoprazole Sodium (Protonix Inj) 40 mg IVP DAILY [facility] Last Admin: 10/30/16 09:57 Dose: 40 mg Potassium Chloride (Klor-Con 10) 10 meq PO DAILY [facility] Last Admin: 10/30/16 10:04 Dose: 10 meq Trazodone HCl (Desyrel) 50 mg PO HS [facility] Last Admin: 10/29/16 21:12 Dose: 50 mg Valsartan (Diovan) 320 mg PO DAILY [facility] Last Admin: 10/30/16 10:01 Dose: 320 mg Physical Exam - Constitutional Appears: No Acute Distress, Chronically Ill - Head Exam Head Exam: ATRAUMATIC - Eye Exam Eye Exam: EOMI, PERRL - ENT Exam ENT Exam: Normal Oropharynx - Respiratory Exam Respiratory Exam: Clear to Auscultation Bilateral, NORMAL BREATHING PATTERN - Cardiovascular Exam Cardiovascular Exam: RRR, +S1, +S2 - GI/Abdominal Exam GI & Abdominal Exam: Soft Additional comments: minimal diistention soft + BS minimal tenderness with palpation in RUQ has drain in place in RUQ region draining bilious fluid No guarding, No rebound - Extremities Exam Additional comments: 1+ le edema b/l - Neurological Exam Neurological exam: Alert, Oriented x3 Results - Vital Signs Recent Vital Signs: Last Vital Signs Temp 97.8 F 10/30/16 07:54 Pulse 88 10/30/16 09:58 Resp 18 10/30/16 07:54 BP 132/74 10/30/16 09:58 Pulse Ox 98 10/30/16 07:54 - Labs Result Diagrams: 10/30/16 06:00 10/30/16 06:00 Labs: Laboratory Results - last 24 hr 10/29/16 10/29/16 10/29/16 11:15 15:51 21:19 WBC RBC Hgb Hct MCV MCH MCHC RDW Plt Count MPV Neut % (Auto) Lymph % (Auto) [place] % (Auto) Eos % (Auto) Baso % (Auto) Neut # Lymph # [place] # Eos # Baso # Sodium Potassium Chloride Carbon Dioxide Anion Gap BUN Creatinine Est GFR ( Amer) Est GFR (Non-Af Amer) POC Glucose (mg/dL) 134 H 120 H 129 H Random Glucose Calcium Total Bilirubin AST ALT Alkaline Phosphatase Total Protein Albumin Globulin Albumin/Globulin Ratio Amylase Lipase 10/30/16 10/30/16 10/30/16 05:12 06:00 06:00 WBC 12.5 H RBC 3.68 L Hgb 10.7 L Hct 33.2 L MCV 90.3 MCH 29.0 MCHC 32.2 L RDW 13.8 Plt Count 367 MPV 8.1 Neut % (Auto) 72.9 Lymph % (Auto) 12.6 L [place] % (Auto) 12.8 H Eos % (Auto) 1.4 Baso % (Auto) 0.3 Neut # 9.1 H Lymph # 1.6 [place] # 1.6 H Eos # 0.2 Baso # 0.0 Sodium 137 Potassium 3.8 Chloride 96 L Carbon Dioxide 30 Anion Gap 15 BUN 8 Creatinine 0.6 L Est GFR ( Amer) > 60 Est GFR (Non-Af Amer) > 60 POC Glucose (mg/dL) 118 H Random Glucose 126 H Calcium 8.7 Total Bilirubin 0.9 AST 20 ALT 21 Alkaline Phosphatase 80 Total Protein 7.6 Albumin 3.5 Globulin 4.1 H Albumin/Globulin Ratio 0.9 L Amylase 49 Lipase 33 Laboratory Results - last 72 hr 10/27/16 10/27/16 10/27/16 14:15 14:15 14:15 WBC 12.2 H RBC 3.82 Hgb 11.1 L Hct 34.8 MCV 91.1 D MCH 29.1 MCHC 32.0 L RDW 14.3 Plt Count 547 H D MPV 8.4 Neut % (Auto) 75.3 H Lymph % (Auto) 12.0 L [place] % (Auto) 10.1 H Eos % (Auto) 2.1 Baso % (Auto) 0.5 Neut # 9.2 H Lymph # 1.5 [place] # 1.2 H Eos # 0.3 Baso # 0.1 PT 13.9 H INR 1.3 H APTT 23.7 L pO2 VBG pH VBG pCO2 VBG HCO3 VBG Total CO2 VBG O2 Sat (Calc) VBG Base Excess VBG Potassium Glucose Lactate FiO2 Sodium 139 Potassium 5.3 H Chloride 98 Carbon Dioxide 31 H Anion Gap 15 BUN 20 H Creatinine 0.8 Est GFR ( Amer) > 60 Est GFR (Non-Af Amer) > 60 POC Glucose (mg/dL) Random Glucose 123 H Calcium 9.8 Total Bilirubin 1.5 H AST 57 H ALT 15 Alkaline Phosphatase 99 Total Protein 9.3 H Albumin 4.2 Globulin 5.1 H Albumin/Globulin Ratio 0.8 L Amylase 58 Lipase 66 Venous Blood Potassium Urine Color Urine Clarity Urine pH Ur Specific [place] Urine Protein Urine Glucose (UA) Urine Ketones Urine Blood Urine Nitrate Urine Bilirubin Urine Urobilinogen Ur Leukocyte Esterase Urine RBC (Auto) Urine Microscopic WBC Ur Squamous Epith Cells 10/27/16 10/27/16 10/27/16 14:20 14:50 15:13 WBC RBC Hgb Hct MCV MCH MCHC RDW Plt Count MPV Neut % (Auto) Lymph % (Auto) [place] % (Auto) Eos % (Auto) Baso % (Auto) Neut # Lymph # [place] # Eos # Baso # PT INR APTT pO2 28 L VBG pH 7.35 VBG pCO2 65 H VBG HCO3 29.8 VBG Total CO2 37.9 H VBG O2 Sat (Calc) 55.6 VBG Base Excess 7.9 H VBG Potassium 4.6 Glucose 123 H Lactate 1.2 FiO2 21.0 Sodium 137.0 141 Potassium 4.9 Chloride 100.0 100 Carbon Dioxide 28 Anion Gap 18 BUN 20 H Creatinine 0.7 Est GFR ( Amer) > 60 Est GFR (Non-Af Amer) > 60 POC Glucose (mg/dL) Random Glucose 120 H Calcium 9.7 Total Bilirubin 0.9 AST 29 ALT 20 Alkaline Phosphatase 97 Total Protein 8.4 H Albumin 3.8 Globulin 4.6 H Albumin/Globulin Ratio 0.8 L Amylase 59 Lipase 78 Venous Blood Potassium 4.6 Urine Color Joc[place]ne Urine Clarity Cloudy Urine pH 5.0 Ur Specific [place] 1.021 Urine Protein 30 Urine Glucose (UA) Neg Urine Ketones Negative Urine Blood Negative Urine Nitrate Negative Urine Bilirubin Negative Urine Urobilinogen 2.0 H Ur Leukocyte Esterase Neg Urine RBC (Auto) 2 Urine Microscopic WBC 3 Ur Squamous Epith Cells 5 10/28/16 10/28/16 10/28/16 05:40 06:00 12:06 WBC 11.8 H RBC 3.44 L Hgb 10.1 L Hct 31.2 L MCV 90.8 MCH 29.5 MCHC 32.5 L RDW 13.9 Plt Count 418 H D MPV 8.4 Neut % (Auto) 72.8 Lymph % (Auto) 12.0 L [place] % (Auto) 12.4 H Eos % (Auto) 2.2 Baso % (Auto) 0.6 Neut # 8.6 H Lymph # 1.4 [place] # 1.5 H Eos # 0.3 Baso # 0.1 PT INR APTT pO2 VBG pH VBG pCO2 VBG HCO3 VBG Total CO2 VBG O2 Sat (Calc) VBG Base Excess VBG Potassium Glucose Lactate FiO2 Sodium 138 Potassium 4.1 Chloride 99 Carbon Dioxide 30 Anion Gap 13 BUN 13 Creatinine 0.6 Est GFR ( Amer) > 60 Est GFR (Non-Af Amer) > 60 POC Glucose (mg/dL) 97 Random Glucose 107 Calcium 9.0 Total Bilirubin 0.8 AST 36 D ALT 25 Alkaline Phosphatase 86 Total Protein 7.4 Albumin 3.4 Globulin 4.0 Albumin/Globulin Ratio 0.9 L Amylase Lipase 38 Venous Blood Potassium Urine Color Urine Clarity Urine pH Ur Specific [place] Urine Protein Urine Glucose (UA) Urine Ketones Urine Blood Urine Nitrate Urine Bilirubin Urine Urobilinogen Ur Leukocyte Esterase Urine RBC (Auto) Urine Microscopic WBC Ur Squamous Epith Cells 10/28/16 10/28/16 10/29/16 15:54 21:15 05:39 WBC RBC Hgb Hct MCV MCH MCHC RDW Plt Count MPV Neut % (Auto) Lymph % (Auto) [place] % (Auto) Eos % (Auto) Baso % (Auto) Neut # Lymph # [place] # Eos # Baso # PT INR APTT pO2 VBG pH VBG pCO2 VBG HCO3 VBG Total CO2 VBG O2 Sat (Calc) VBG Base Excess VBG Potassium Glucose Lactate FiO2 Sodium Potassium Chloride Carbon Dioxide Anion Gap BUN Creatinine Est GFR ( Amer) Est GFR (Non-Af Amer) POC Glucose (mg/dL) 99 86 118 H Random Glucose Calcium Total Bilirubin AST ALT Alkaline Phosphatase Total Protein Albumin Globulin Albumin/Globulin Ratio Amylase Lipase Venous Blood Potassium Urine Color Urine Clarity Urine pH Ur Specific [place] Urine Protein Urine Glucose (UA) Urine Ketones Urine Blood Urine Nitrate Urine Bilirubin Urine Urobilinogen Ur Leukocyte Esterase Urine RBC (Auto) Urine Microscopic WBC Ur Squamous Epith Cells 10/29/16 10/29/16 10/29/16 05:50 05:50 11:15 WBC 11.4 H RBC 3.68 L Hgb 10.4 L Hct 33.3 L MCV 90.3 MCH 28.3 MCHC 31.4 L RDW 14.3 Plt Count 430 H MPV 8.1 Neut % (Auto) 73.4 Lymph % (Auto) 12.3 L [place] % (Auto) 12.3 H Eos % (Auto) 1.6 Baso % (Auto) 0.4 Neut # 8.4 H Lymph # 1.4 [place] # 1.4 H Eos # 0.2 Baso # 0.0 PT INR APTT pO2 VBG pH VBG pCO2 VBG HCO3 VBG Total CO2 VBG O2 Sat (Calc) VBG Base Excess VBG Potassium Glucose Lactate FiO2 Sodium 139 Potassium 3.8 Chloride 99 Carbon Dioxide 32 H Anion Gap 12 BUN 8 Creatinine 0.6 L Est GFR ( Amer) > 60 Est GFR (Non-Af Amer) > 60 POC Glucose (mg/dL) 134 H Random Glucose 118 H Calcium 9.3 Total Bilirubin 0.9 AST 23 ALT 12 Alkaline Phosphatase 90 Total Protein 7.7 Albumin 3.5 Globulin 4.2 H Albumin/Globulin Ratio 0.8 L Amylase Lipase Venous Blood Potassium Urine Color Urine Clarity Urine pH Ur Specific [place] Urine Protein Urine Glucose (UA) Urine Ketones Urine Blood Urine Nitrate Urine Bilirubin Urine Urobilinogen Ur Leukocyte Esterase Urine RBC (Auto) Urine Microscopic WBC Ur Squamous Epith Cells 10/29/16 10/29/16 10/30/16 15:51 21:19 05:12 WBC RBC Hgb Hct MCV MCH MCHC RDW Plt Count MPV Neut % (Auto) Lymph % (Auto) [place] % (Auto) Eos % (Auto) Baso % (Auto) Neut # Lymph # [place] # Eos # Baso # PT INR APTT pO2 VBG pH VBG pCO2 VBG HCO3 VBG Total CO2 VBG O2 Sat (Calc) VBG Base Excess VBG Potassium Glucose Lactate FiO2 Sodium Potassium Chloride Carbon Dioxide Anion Gap BUN Creatinine Est GFR ( Amer) Est GFR (Non-Af Amer) POC Glucose (mg/dL) 120 H 129 H 118 H Random Glucose Calcium Total Bilirubin AST ALT Alkaline Phosphatase Total Protein Albumin Globulin Albumin/Globulin Ratio Amylase Lipase Venous Blood Potassium Urine Color Urine Clarity Urine pH Ur Specific [place] Urine Protein Urine Glucose (UA) Urine Ketones Urine Blood Urine Nitrate Urine Bilirubin Urine Urobilinogen Ur Leukocyte Esterase Urine RBC (Auto) Urine Microscopic WBC Ur Squamous Epith Cells 10/30/16 10/30/16 10/30/16 06:00 06:00 11:48 WBC 12.5 H RBC 3.68 L Hgb 10.7 L Hct 33.2 L MCV 90.3 MCH 29.0 MCHC 32.2 L RDW 13.8 Plt Count 367 MPV 8.1 Neut % (Auto) 72.9 Lymph % (Auto) 12.6 L [place] % (Auto) 12.8 H Eos % (Auto) 1.4 Baso % (Auto) 0.3 Neut # 9.1 H Lymph # 1.6 [place] # 1.6 H Eos # 0.2 Baso # 0.0 PT INR APTT pO2 VBG pH VBG pCO2 VBG HCO3 VBG Total CO2 VBG O2 Sat (Calc) VBG Base Excess VBG Potassium Glucose Lactate FiO2 Sodium 137 Potassium 3.8 Chloride 96 L Carbon Dioxide 30 Anion Gap 15 BUN 8 Creatinine 0.6 L Est GFR ( Amer) > 60 Est GFR (Non-Af Amer) > 60 POC Glucose (mg/dL) 140 H Random Glucose 126 H Calcium 8.7 Total Bilirubin 0.9 AST 20 ALT 21 Alkaline Phosphatase 80 Total Protein 7.6 Albumin 3.5 Globulin 4.1 H Albumin/Globulin Ratio 0.9 L Amylase 49 Lipase 33 Venous Blood Potassium Urine Color Urine Clarity Urine pH Ur Specific [place] Urine Protein Urine Glucose (UA) Urine Ketones Urine Blood Urine Nitrate Urine Bilirubin Urine Urobilinogen Ur Leukocyte Esterase Urine RBC (Auto) Urine Microscopic WBC Ur Squamous Epith Cells Microbiology 10/27/16 14:15 Blood Blood Culture - Preliminary NO GROWTH AFTER 48 HOURS 10/27/16 14:50 Urine,Reagan Urine Culture - Final No Growth (<1,000 CFU/ML) Accession No. : [id number] Patient Name / ID : LAURO RODRIGUEZ / [id number] Exam Date : 10/28/2016 01:00:00 ( Approved ) Study Comment : Sex / Age : F / 76Y Creator : Carlito Peralta MD Dictator : Carlito Peralta MD Dye Tank Tender : Director Prison : Carlito Peralta MD Approver2 : Report Date : 10/28/2016 16:30:26 My Comment : PROCEDURE: Nuclear Medicine Hepatobiliary Scan HISTORY: r/o cholecystitis COMPARISON: None available. TECHNIQUE: 5.0 mCi of technetium 99m Mebrofenin was administered intravenously. Planar images of the abdomen were obtained at 5 min intervals to 60 mins. Delayed images were also obtained. FINDINGS: LIVER: Timely and homogenous uptake. COMMON BILE DUCT: identified at 10 mins. GALLBLADDER: Not identified up to 4 hours post isotope administration with no significant residual isotope identified in the liver. SMALL BOWEL: Identified at 15 mins. IMPRESSION: 1. Gallbladder is not identified throughout the examination with findings suspicious for acute cystic duct obstruction. 2. Patent common bile duct. Accession No. : [id number] Patient Name / ID : LAURO RODRIGUEZ / [id number] Exam Date : 10/27/2016 19:33:23 ( Approved ) Study Comment : Sex / Age : F / 76Y Creator : Morena Sutton MD Dictator : Dye Tank Tender : Director Prison : Morena Sutton MD Approver2 : Report Date : 10/27/2016 21:07:00 My Comment : [facility] Division of Radiology [address] [place] [address] Tel. no. Patient Name: MICHAEL RESTREPO Pt. Address: [address] [place] [address] Rec #: [id number] [place] [address]: Betty Campos Pt Order Location: [facility] : 1940 Female Age: 76 Order #: [id number] Reason for exam: suprapubic abdominal pain, hematuria CT Scan ABD PELVIS PO CONTRAST ONLY Exam Date: 10/27/16 This imaging exam was performed at [facility] ADDENDUM Addendum created by Morena Sutton MD on 10/27/2016 9:26:22 PM EDT THIS REPORT CONTAINS FINDINGS THAT MAY BE CRITICAL TO PATIENT CARE. The findings were verbally communicated via telephone conference with Dr. Berg at 9:26 PM EDT on 10/27/2016. The findings were acknowledged and understood. Initial report created on 10/27/2016 9:07:29 PM EDT EXAM: CT Abdomen and Pelvis Without Intravenous Contrast EXAM DATE/TIME: 10/27/2016 7:30 PM CLINICAL HISTORY: 76 years old, female; Pain; Abdominal pain; Generalized; Patient HX: HX of pancreatitis; Additional info: Suprapubic abdominal pain, hematuria. Sent phy. Doc. With request TECHNIQUE: Axial computed tomography images of the abdomen and pelvis without intravenous contrast. All CT scans at this facility use one or more dose reduction techniques, viz.: automated exposure control; ma/kV adjustment per patient size (including targeted exams where dose is matched to indication; i.e. head); or iterative reconstruction technique. Coronal and sagittal reformatted images were created and reviewed. COMPARISON: Prior CT abdomen and pelvis of 10/04/2016 FINDINGS: LIMITATIONS: Streak artifact from the patient's arms. Mild to moderate streak/motion artifact. LOWER THORAX: Gastroesophageal reflux. ABDOMEN: LIVER: No acute abnormality of the liver identified. GALLBLADDER AND BILE DUCTS: Gallbladder is moderately to markedly dilated. Common bile duct abnormally dilated for age, measuring 1.3 cm in diameter. This finding was also seen on the prior study. No radioopaque gallstones or common bile duct stones are seen. No evidence of significant pericholecystic fluid or inflammation. PANCREAS: Suboptimally evaluated due to unenhanced technique. Allowing for this, there are findings suspicious for acute pancreatitis involving the proximal pancreas. The pancreatic head and neck appears enlarged and ill-defined, and there is stranding of the fat adjacent to the pancreatic head. Pancreatic tail appears atrophic/fatty replaced. [place]-shaped low to intermediate density soft tissue is seen in the region of the posterior gastric wall, involving the mid and distal stomach. This has an elongated shape and a CT density of 20-30 Hounsfield units. It could represent focal gastric wall thickening, but it is difficult to exclude a perigastric fluid collection, related to a prior episode of pancreatitis. This measures about 10 cm in width and 2 cm in AP dimensions. There is no associated gas. SPLEEN: No acute abnormality of the spleen identified. ADRENALS: No acute abnormality of the adrenal glands identified. KIDNEYS AND URETERS: No acute abnormality of the kidneys seen. No evidence of hydroureteronephrosis. STOMACH AND BOWEL: Rectum is stool filled and mildly dilated. Stool is seen throughout the ascending colon. There is no evidence of a large fecal impaction. Findings are most likely due to fecal retention/constipation. Colonic diverticulosis, with no evidence of acute diverticulitis. Otherwise, no significant abnormality of the bowel is identified. No evidence of bowel obstruction. APPENDIX: Appendix is seen, and is within normal limits in appearance. PELVIS: BLADDER: No acute abnormality of the bladder identified. REPRODUCTIVE:No acute abnormality of the reproductive organs is seen. No acute abnormality of the uterus identified. No evidence of large adnexal masses. ABDOMEN and PELVIS: INTRAPERITONEAL SPACE: No evidence of free intraperitoneal air or fluid. BONES/JOINTS: Severe chronic deformity of the femoral head and neck, most likely related to an old fracture. Severe osteoarthritic changes of the right hip. 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 SOFT TISSUES: Multiple round to oval masslike areas of soft tissue density are seen in the right anterior pelvic wall subcutaneous tissues, localized to the subcutaneous fat. These have CT densities of up to 70 Hounsfield units, and are suspicious for multiple soft tissue hematomas. The largest of these measures 10 x 5.5 cm. VASCULATURE: IVC filter in place. LYMPH NODES: No evidence of diffuse lymphadenopathy. IMPRESSION: - Findings suspicious for multiple soft tissue hematomas in the right anterior pelvic wall subcutaneous fat, the largest measuring 10 x 5.5 cm. - Enlargement of the pancreatic head and neck, suspicious for acute pancreatitis. Recommend correlation with pancreatic enzyme values. - Focal thickening of the posterior gastric wall versus an elongated perigastric fluid collection, likely related to a prior episode of pancreatitis. This measures about 10 x 2 cm. No associated gas. Unenhanced technique limits evaluation. - Dilatation of the common bile duct and gallbladder, cause not identified. No CT evidence of acute cholecystitis. Recommend correlation with LFTs for laboratory evidence of biliary obstruction. - Otherwise, no evidence of significant acute process. - Findings which are most likely secondary to fecal retention/constipation. - Severe osteoarthritic changes of the right hip, likely secondary to an old right femoral neck fracture. - See above for remaining findings. Addendum Dictated By: Morena Sutton MD Addendum Dictated Date Time:10/27/1601/02/2126 Addendum Signed by:Morena Sutton MD Addendum signed Date Time: 10/27/162125 Addendum Transcribed By: SHIRA Addendum Transcribed Date Time: 10/27/1601/02/2126 [facility] EXAM: CT Abdomen and Pelvis Without Intravenous Contrast EXAM DATE/TIME: 10/27/2016 7:30 PM CLINICAL HISTORY: 76 years old, female; Pain; Abdominal pain; Generalized; Patient HX: HX of pancreatitis; Additional info: Suprapubic abdominal pain, hematuria. Sent phy. Doc. With request TECHNIQUE: Axial computed tomography images of the abdomen and pelvis without intravenous contrast. All CT scans at this facility use one or more dose reduction techniques, viz.: automated exposure control; ma/kV adjustment per patient size (including targeted exams where dose is matched to indication; i.e. head); or iterative reconstruction technique. Coronal and sagittal reformatted images were created and reviewed. COMPARISON: Prior CT abdomen and pelvis of 10/04/2016 FINDINGS: LIMITATIONS: Streak artifact from the patient's arms. Mild to moderate streak/motion artifact. LOWER THORAX: Gastroesophageal reflux. ABDOMEN: LIVER: No acute abnormality of the liver identified. GALLBLADDER AND BILE DUCTS: Gallbladder is moderately to markedly dilated. Common bile duct abnormally dilated for age, measuring 1.3 cm in diameter. This finding was also seen on the prior study. No radioopaque gallstones or common bile duct stones are seen. No evidence of significant pericholecystic fluid or inflammation. PANCREAS: Suboptimally evaluated due to unenhanced technique. Allowing for this, there are findings suspicious for acute pancreatitis involving the proximal pancreas. The pancreatic head and neck appears enlarged and ill-defined, and there is stranding of the fat adjacent to the pancreatic head. Pancreatic tail appears atrophic/fatty replaced. [place]-shaped low to intermediate density soft tissue is seen in the region of the posterior gastric wall, involving the mid and distal stomach. This has an elongated shape and a CT density of 20-30 Hounsfield units. It could represent focal gastric wall thickening, but it is difficult to exclude a perigastric fluid collection, related to a prior episode of pancreatitis. This measures about 10 cm in width and 2 cm in AP dimensions. There is no associated gas. SPLEEN: No acute abnormality of the spleen identified. ADRENALS: No acute abnormality of the adrenal glands identified. KIDNEYS AND URETERS: No acute abnormality of the kidneys seen. No evidence of hydroureteronephrosis. STOMACH AND BOWEL: Rectum is stool filled and mildly dilated. Stool is seen throughout the ascending colon. There is no evidence of a large fecal impaction. Findings are most likely due to fecal retention/constipation. Colonic diverticulosis, with no evidence of acute diverticulitis. Otherwise, no significant abnormality of the bowel is identified. No evidence of bowel obstruction. APPENDIX: Appendix is seen, and is within normal limits in appearance. PELVIS: BLADDER: No acute abnormality of the bladder identified. REPRODUCTIVE:No acute abnormality of the reproductive organs is seen. No acute abnormality of the uterus identified. No evidence of large adnexal masses. ABDOMEN and PELVIS: INTRAPERITONEAL SPACE: No evidence of free intraperitoneal air or fluid. BONES/JOINTS: Severe chronic deformity of the femoral head and neck, most likely related to an old fracture. Severe osteoarthritic changes of the right hip. 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 SOFT TISSUES: Multiple round to oval masslike areas of soft tissue density are seen in the right anterior pelvic wall subcutaneous tissues, localized to the subcutaneous fat. These have CT densities of up to 70 Hounsfield units, and are suspicious for multiple soft tissue hematomas. The largest of these measures 10 x 5.5 cm. VASCULATURE: IVC filter in place. LYMPH NODES: No evidence of diffuse lymphadenopathy. IMPRESSION: - Findings suspicious for multiple soft tissue hematomas in the right anterior pelvic wall subcutaneous fat, the largest measuring 10 x 5.5 cm. - Enlargement of the pancreatic head and neck, suspicious for acute pancreatitis. Recommend correlation with pancreatic enzyme values. - Focal thickening of the posterior gastric wall versus an elongated perigastric fluid collection, likely related to a prior episode of pancreatitis. This measures about 10 x 2 cm. No associated gas. Unenhanced technique limits evaluation. - Dilatation of the common bile duct and gallbladder, cause not identified. No CT evidence of acute cholecystitis. Recommend correlation with LFTs for laboratory evidence of biliary obstruction. - Otherwise, no evidence of significant acute process. - Findings which are most likely secondary to fecal retention/constipation. - Severe osteoarthritic changes of the right hip, likely secondary to an old right femoral neck fracture. - See above for remaining findings. Dictated By: Morena Sutton MD Dictated Date/Time: 10/27/162106 Signed By: Morena Sutton MD Date Signed: [id number] Transcribed By: SHIRA Transcribe Date/Time : 10/27/162106 [facility] Assessment & Plan (1) Acute cholecystitis Status: Acute (2) Pancreatitis Status: Acute (3) Abdominal pain Status: Acute - Assessment and Plan (Free Text) Assessment: A/P 76 year old female with dm II, HTN with h/o gallstone pancreatitis admitted with RUQ pain found to have acute cholecystitis and cystic duct obstruction and is s/p cholecystostomy tube on 10/29/2016. pt. afebrile minimal leukocytosis only normal lipase and amylase Blood cx- neg UA and urine cx- neg plan- advise to d/c cipro. advise to place on meropenem as pt. did well on this regimen last time and had NO allergy to it. follow wbc and check another blood cx. f/u with GI and surgical rec to see how long pt. will need the cholecytostomy tube in place. Thank you for allowing me to take part in the care of this patient. will f/u.
[2016-10-30] MEDS ORDERED: Oxycodone/Acetaminophen 5/325 mg Tab PO PRN (11:36)
[2016-10-30] MEDS: Enoxaparin 40 mg Syringe SC SCH (13:01)
[2016-10-30] MEDS: Meropenem 500 MG in Sodium Chloride 0.9% 100 ML IVPB SCH (17:35)
--- NOTE | 2016-10-30 23:49 | CP.PCM.PN ---
Subjective - Date & Time of Evaluation Date of Evaluation: 10/30/16 Time of Evaluation: 09:00 - Subjective Subjective: Patient s/p cholecystostomy. Tolerating liquids. Is afebrile. Objective - Vital Signs/Intake and Output Vital Signs (last 24 hours): Temp Pulse Resp BP Pulse Ox 98.3 F 96 H 20 136/80 94 L 10/30/16 17:00 10/30/16 17:00 10/30/16 17:00 10/30/16 17:00 10/30/16 17:00 Intake and Output: 10/30/16 10/31/16 18:59 06:59 Output Total 30 Balance -30 - Medications Medications: Current Medications Alprazolam (Xanax) 0.5 mg PO BID [facility] Last Admin: 10/30/16 17:34 Dose: 0.5 mg Amlodipine Besylate (Norvasc) 10 mg PO DAILY [facility] Last Admin: 10/30/16 09:58 Dose: 10 mg Duloxetine HCl (Cymbalta) 60 mg PO HS [facility] Last Admin: 10/30/16 23:01 Dose: 60 mg Enoxaparin Sodium (Lovenox) 40 mg SC DAILY [facility] PRN Reason: Protocol Last Admin: 10/30/16 13:01 Dose: 40 mg Ergocalciferol (Drisdol 50,000 Intl Units Cap) 1 cap PO MO [facility] Gabapentin (Neurontin) 600 mg PO TID [facility] Last Admin: 10/30/16 17:35 Dose: 600 mg Hydrochlorothiazide (Hydrodiuril) 25 mg PO DAILY [facility] Last Admin: 10/30/16 09:57 Dose: 25 mg Sodium Chloride (Sodium Chloride 0.9%) 1,000 mls @ 100 mls/hr IV .Q10H [facility] Last Admin: 10/30/16 16:55 Dose: Not Given Meropenem 500 mg/ Sodium (Chloride) 100 mls @ 100 mls/hr IVPB Q8 [facility] Last Admin: 10/30/16 17:35 Dose: 100 mls/hr Lactulose (Enulose) 30 gm PO DAILY PRN PRN Reason: Constipation Ondansetron HCl (Zofran Inj) 4 mg IVP Q4 PRN PRN Reason: Nausea/Vomiting Oxycodone/Acetaminophen (Percocet 5/325 Mg Tab) 2 tab PO Q6 PRN PRN Reason: Pain, severe (8-10) Stop: 11/02/16 11:36 Last Admin: 10/30/16 20:30 Dose: 2 tab Oxycodone/Acetaminophen (Percocet 5/325 Mg Tab) 1 tab PO Q6 PRN PRN Reason: Pain, moderate (4-7) Stop: 11/02/16 11:37 Pantoprazole Sodium (Protonix Inj) 40 mg IVP DAILY [facility] Last Admin: 10/30/16 09:57 Dose: 40 mg Potassium Chloride (Klor-Con 10) 10 meq PO DAILY [facility] Last Admin: 10/30/16 10:04 Dose: 10 meq Trazodone HCl (Desyrel) 50 mg PO HS [facility] Last Admin: 10/30/16 23:01 Dose: 50 mg Valsartan (Diovan) 320 mg PO DAILY [facility] Last Admin: 10/30/16 10:01 Dose: 320 mg - Labs Labs: 10/30/16 06:00 10/30/16 06:00 PT 13.9 Seconds (9.8-13.1) H 10/27/16 14:15 INR 1.3 (0.9-1.2) H 10/27/16 14:15 APTT 23.7 Seconds (25.6-37.1) L 10/27/16 14:15 - Head Exam Head Exam: ATRAUMATIC - Eye Exam Eye Exam: Normal appearance - ENT Exam ENT Exam: Mucous Membranes Moist - Neck Exam Neck Exam: Normal Inspection - Respiratory Exam Respiratory Exam: Clear to Ausculation Bilateral - Cardiovascular Exam Cardiovascular Exam: REGULAR RHYTHM - GI/Abdominal Exam GI & Abdominal Exam: Soft, Tenderness, Normal Bowel Sounds Additional comments: moderate RUQ tenderness Assessment and Plan (1) Pancreatitis Status: Acute (2) Abdominal pain Assessment & Plan: S/p cholecystostomy. Appears improved though pain still present. Continue IV antibiotics and follow clinically Status: Acute
[2016-10-31] MEDS: Meropenem 500 MG in Sodium Chloride 0.9% 100 ML IVPB SCH ×3 (00:41→15:59)
[2016-10-31] MEDS: Sodium Chloride 0.9% 1,000 ML IV SCH ×2 (02:00→16:01)
[2016-10-31 07:23] LABS: BASO % 0.3 % (0.0-2.0); EOS # 0.4 K/uL (0.0-0.7); EOS % 2.9 % (0.0-4.0); HEMATOCRIT 30.7 % (34.0-47.0); LYMPH # 1.8 K/uL (1.0-4.3); LYMPH % 13.6 % (20.0-40.0); MEAN CORPUSCULAR HGB CONC 31.8 g/dL (33.0-37.0); MEAN PLATELET VOLUME 8.4 fl (7.2-11.7); MONO # 1.9 K/uL (0.0-0.8); NEUT # 9.3 K/uL (1.8-7.0); NEUT % 69.2 % (50.0-75.0); RED CELL DISTRIBUTION WIDTH 14.3 % (11.5-14.5); WHITE BLOOD COUNT 13.4 K/uL (4.8-10.8)
[2016-10-31 07:56] LABS: BLOOD UREA NITROGEN 10 mg/dl (7-17); GLUCOSE,RANDOM 101 mg/dL (65-105)
[2016-10-31 07:57] LABS: ALB/GLOB RATIO 0.8 (1.0-2.1); ALKALINE PHOSPHATASE 78 U/L (38-126); ALT/SGPT 19 U/L (9-52); AST/SGOT 17 U/L (14-36); BILIRUBIN,TOTAL 0.9 mg/dl (0.2-1.3); CALCIUM 8.5 mg/dL (8.4-10.2); CARBON DIOXIDE 32 mmol/L (22-30); CHLORIDE 98 mmol/L (98-107); GFR AFRICAN-AMERICAN > 60; POTASSIUM 3.7 MMOL/L (3.6-5.0); SODIUM 137 mmol/l (132-148); TOTAL PROTEIN 7.1 G/DL (6.3-8.2)
--- NOTE | 2016-10-31 08:41 | PN ---
DATE: 10/30/2016 SUBJECTIVE: The patient is seen and examined. Interim events noted. Consults noted appreciated, surgery and interventional radiologist and gastroenterology followup and intervention noted and appreciated. The patient remains in progressive care unit on telemetry monitoring status post cholecystostomy procedure. The patient feels okay, still has some abdominal discomfort, but much improved, though was able to tolerate some food. No chest pain and no shortness of breath. PHYSICAL EXAMINATION: GENERAL: The patient is in no acute distress. VITAL SIGNS: Stable. HEART: S1 and S2, normal and regular. LUNGS: Good bilateral air exchange. ABDOMEN: Soft, nontender. Cholecystostomy tube is in good position and functioning. No sign of acute complication. No sign of acute abdomen. No guarding. No rigidity. No rebound. Bowel sounds are present and normal. EXTREMITIES: No calf swelling, no tenderness and no acute ischemia. CENTRAL NERVOUS SYSTEM: Essentially unchanged. DIAGNOSTIC DATA: Available diagnostic data reviewed. Telemetry monitoring does not show significant arrhythmia. ASSESSMENT: Overall, the patient's general medical condition is stable. Tolerated procedure very well. No sign of acute complication. PLAN: As ordered. Treatment plan discussed with the patient. William Polanco MD
[2016-10-31] MEDS: Enoxaparin 40 mg Syringe SC SCH (09:21)
[2016-10-31] MEDS: Potassium Chloride 10 mEq ER Tab PO SCH (09:22)
[2016-10-31] MEDS: Oxycodone/Acetaminophen 5/325 mg Tab PO PRN ×3 (09:43→21:51)
--- NOTE | 2016-10-31 10:02 | CP.PCM.PN ---
Subjective - Date & Time of Evaluation Date of Evaluation: 10/31/16 Time of Evaluation: 10:02 - Subjective Subjective: ID Note- Pt. seen and examined today. Pt. denies any fever or chills. denies any nausea . states she is hungry and as per he will advance her diet. She denies any diarrhea still has mild pain in RUQ region but less than before. Objective - Vital Signs/Intake and Output Vital Signs (last 24 hours): Temp Pulse Resp BP Pulse Ox 97.8 F 95 H 20 120/71 98 10/31/16 07:41 10/31/16 07:41 10/31/16 07:41 10/31/16 07:41 10/31/16 07:41 Intake and Output: 10/31/16 10/31/16 06:59 18:59 Intake Total 1800 Balance 1800 - Medications Medications: Current Medications Alprazolam (Xanax) 0.5 mg PO BID [facility] Last Admin: 10/31/16 09:25 Dose: 0.5 mg Amlodipine Besylate (Norvasc) 10 mg PO DAILY [facility] Last Admin: 10/31/16 09:20 Dose: 10 mg Duloxetine HCl (Cymbalta) 60 mg PO HS [facility] Last Admin: 10/30/16 23:01 Dose: 60 mg Enoxaparin Sodium (Lovenox) 40 mg SC DAILY [facility] PRN Reason: Protocol Last Admin: 10/31/16 09:21 Dose: 40 mg Ergocalciferol (Drisdol 50,000 Intl Units Cap) 1 cap PO MO [facility] Gabapentin (Neurontin) 600 mg PO TID [facility] Last Admin: 10/31/16 09:20 Dose: 600 mg Hydrochlorothiazide (Hydrodiuril) 25 mg PO DAILY [facility] Last Admin: 10/31/16 09:22 Dose: 25 mg Sodium Chloride (Sodium Chloride 0.9%) 1,000 mls @ 100 mls/hr IV .Q10H [facility] Last Admin: 10/31/16 02:00 Dose: Not Given Meropenem 500 mg/ Sodium (Chloride) 100 mls @ 100 mls/hr IVPB Q8 [facility] Last Admin: 10/31/16 09:21 Dose: 100 mls/hr Lactulose (Enulose) 30 gm PO DAILY PRN PRN Reason: Constipation Ondansetron HCl (Zofran Inj) 4 mg IVP Q4 PRN PRN Reason: Nausea/Vomiting Oxycodone/Acetaminophen (Percocet 5/325 Mg Tab) 2 tab PO Q6 PRN PRN Reason: Pain, severe (8-10) Stop: 11/02/16 11:36 Last Admin: 10/31/16 09:43 Dose: 2 tab Oxycodone/Acetaminophen (Percocet 5/325 Mg Tab) 1 tab PO Q6 PRN PRN Reason: Pain, moderate (4-7) Stop: 11/02/16 11:37 Pantoprazole Sodium (Protonix Inj) 40 mg IVP DAILY [facility] Last Admin: 10/31/16 09:23 Dose: 40 mg Potassium Chloride (Klor-Con 10) 10 meq PO DAILY [facility] Last Admin: 10/31/16 09:22 Dose: 10 meq Trazodone HCl (Desyrel) 50 mg PO [facility] Last Admin: 10/30/16 23:01 Dose: 50 mg Valsartan (Diovan) 320 mg PO DAILY [facility] Last Admin: 10/31/16 09:22 Dose: 320 mg - Labs Labs: - Additional Findings Additional findings: - Constitutional Appears: No Acute Distress - Head Exam Head Exam: ATRAUMATIC - Eye Exam Eye Exam: EOMI, PERRL - ENT Exam ENT Exam: Normal Oropharynx - Respiratory Exam Respiratory Exam: Clear to Auscultation Bilateral, NORMAL BREATHING PATTERN - Cardiovascular Exam Cardiovascular Exam: RRR, +S1, +S2 - GI/Abdominal Exam GI & Abdominal Exam: Soft Additional comments: soft + BS minimal tenderness with palpation in RUQ has drain in place in RUQ region draining bilious fluid but scant No guarding, No rebound - Extremities Exam Additional comments: 1+ le edema b/l - Neurological Exam Neurological exam: Alert, Oriented x 3 Laboratory Results - last 72 hr 10/28/16 10/28/16 10/29/16 15:54 21:15 05:39 WBC RBC Hgb Hct MCV MCH MCHC RDW Plt Count MPV Neut % (Auto) Lymph % (Auto) Ponce % (Auto) Eos % (Auto) Baso % (Auto) Neut # Lymph # Ponce # Eos # Baso # Sodium Potassium Chloride Carbon Dioxide Anion Gap BUN Creatinine Est GFR ( Amer) Est GFR (Non-Af Amer) POC Glucose (mg/dL) 99 86 118 H Random Glucose Calcium Total Bilirubin AST ALT Alkaline Phosphatase Total Protein Albumin Globulin Albumin/Globulin Ratio Amylase Lipase 10/29/16 10/29/16 10/29/16 05:50 05:50 11:15 WBC 11.4 H RBC 3.68 L Hgb 10.4 L Hct 33.3 L MCV 90.3 MCH 28.3 MCHC 31.4 L RDW 14.3 Plt Count 430 H MPV 8.1 Neut % (Auto) 73.4 Lymph % (Auto) 12.3 L Ponce % (Auto) 12.3 H Eos % (Auto) 1.6 Baso % (Auto) 0.4 Neut # 8.4 H Lymph # 1.4 Ponce # 1.4 H Eos # 0.2 Baso # 0.0 Sodium 139 Potassium 3.8 Chloride 99 Carbon Dioxide 32 H Anion Gap 12 BUN 8 Creatinine 0.6 L Est GFR ( Amer) > 60 Est GFR (Non-Af Amer) > 60 POC Glucose (mg/dL) 134 H Random Glucose 118 H Calcium 9.3 Total Bilirubin 0.9 AST 23 ALT 12 Alkaline Phosphatase 90 Total Protein 7.7 Albumin 3.5 Globulin 4.2 H Albumin/Globulin Ratio 0.8 L Amylase Lipase 10/29/16 10/29/16 10/30/16 15:51 21:19 05:12 WBC RBC Hgb Hct MCV MCH MCHC RDW Plt Count MPV Neut % (Auto) Lymph % (Auto) Ponce % (Auto) Eos % (Auto) Baso % (Auto) Neut # Lymph # Ponce # Eos # Baso # Sodium Potassium Chloride Carbon Dioxide Anion Gap BUN Creatinine Est GFR ( Amer) Est GFR (Non-Af Amer) POC Glucose (mg/dL) 120 H 129 H 118 H Random Glucose Calcium Total Bilirubin AST ALT Alkaline Phosphatase Total Protein Albumin Globulin Albumin/Globulin Ratio Amylase Lipase 10/30/16 10/30/16 10/30/16 06:00 06:00 11:48 WBC 12.5 H RBC 3.68 L Hgb 10.7 L Hct 33.2 L MCV 90.3 MCH 29.0 MCHC 32.2 L RDW 13.8 Plt Count 367 MPV 8.1 Neut % (Auto) 72.9 Lymph % (Auto) 12.6 L Ponce % (Auto) 12.8 H Eos % (Auto) 1.4 Baso % (Auto) 0.3 Neut # 9.1 H Lymph # 1.6 Ponce # 1.6 H Eos # 0.2 Baso # 0.0 Sodium 137 Potassium 3.8 Chloride 96 L Carbon Dioxide 30 Anion Gap 15 BUN 8 Creatinine 0.6 L Est GFR ( Amer) > 60 Est GFR (Non-Af Amer) > 60 POC Glucose (mg/dL) 140 H Random Glucose 126 H Calcium 8.7 Total Bilirubin 0.9 AST 20 ALT 21 Alkaline Phosphatase 80 Total Protein 7.6 Albumin 3.5 Globulin 4.1 H Albumin/Globulin Ratio 0.9 L Amylase 49 Lipase 33 10/30/16 10/30/16 10/31/16 16:48 21:17 05:35 WBC RBC Hgb Hct MCV MCH MCHC RDW Plt Count MPV Neut % (Auto) Lymph % (Auto) Ponce % (Auto) Eos % (Auto) Baso % (Auto) Neut # Lymph # Ponce # Eos # Baso # Sodium Potassium Chloride Carbon Dioxide Anion Gap BUN Creatinine Est GFR ( Amer) Est GFR (Non-Af Amer) POC Glucose (mg/dL) 108 116 H 107 Random Glucose Calcium Total Bilirubin AST ALT Alkaline Phosphatase Total Protein Albumin Globulin Albumin/Globulin Ratio Amylase Lipase 10/31/16 10/31/16 10/31/16 06:00 06:00 10:31 WBC 13.4 H RBC 3.38 L Hgb 9.8 L Hct 30.7 L MCV 91.0 MCH 29.0 MCHC 31.8 L RDW 14.3 Plt Count 376 MPV 8.4 Neut % (Auto) 69.2 Lymph % (Auto) 13.6 L Ponce % (Auto) 14.0 H Eos % (Auto) 2.9 Baso % (Auto) 0.3 Neut # 9.3 H Lymph # 1.8 Ponce # 1.9 H Eos # 0.4 Baso # 0.0 Sodium 137 Potassium 3.7 Chloride 98 Carbon Dioxide 32 H Anion Gap 11 BUN 10 Creatinine 0.7 Est GFR ( Amer) > 60 Est GFR (Non-Af Amer) > 60 POC Glucose (mg/dL) 115 H Random Glucose 101 Calcium 8.5 Total Bilirubin 0.9 AST 17 ALT 19 Alkaline Phosphatase 78 Total Protein 7.1 Albumin 3.1 L Globulin 4.0 H Albumin/Globulin Ratio 0.8 L Amylase Lipase 10/31/16 15:44 WBC RBC Hgb Hct MCV MCH MCHC RDW Plt Count MPV Neut % (Auto) Lymph % (Auto) Ponce % (Auto) Eos % (Auto) Baso % (Auto) Neut # Lymph # Ponce # Eos # Baso # Sodium Potassium Chloride Carbon Dioxide Anion Gap BUN Creatinine Est GFR ( Amer) Est GFR (Non-Af Amer) POC Glucose (mg/dL) 107 Random Glucose Calcium Total Bilirubin AST ALT Alkaline Phosphatase Total Protein Albumin Globulin Albumin/Globulin Ratio Amylase Lipase Microbiology 10/27/16 14:15 Blood Blood Culture - Preliminary NO GROWTH AFTER 4 DAYS 10/27/16 14:50 Urine,Reagan Urine Culture - Final No Growth (<1,000 CFU/ML) Assessment and Plan (1) Acute cholecystitis Status: Acute (2) Pancreatitis Status: Acute (3) Abdominal pain Status: Acute - Assessment and Plan (Free Text) Assessment: A/P 76 year old female with dm II, HTN with h/o gallstone pancreatitis admitted with RUQ pain found to have acute cholecystitis and cystic duct obstruction and is s/p cholecystostomy tube on 10/29/2016. low grade fever at midnight afebrile the rest of the day. minimal leukocytosis only normal lipase and amylase Blood cx- neg UA and urine cx- neg plan- advise to continue with meropenem as pt. did well on this regimen last time and had NO allergy to it. day #2 follow wbc and check another blood cx. f/u with GI and surgical rec to see how long pt. will need the cholecytostomy tube in place.
[2016-10-31] MEDS ORDERED: Influenza Vaccine 18yr & older 0.5 ML/45 MCG SYR IM ONE (14:57)
--- NOTE | 2016-10-31 17:22 | CP.PCM.PN ---
Subjective - Date & Time of Evaluation Date of Evaluation: 10/31/16 Time of Evaluation: 17:21 - Subjective Subjective: Doing well. Minimal abdominal pain. Desires solid food. Objective - Vital Signs/Intake and Output Vital Signs (last 24 hours): Temp Pulse Resp BP Pulse Ox 97.9 F 88 20 128/87 95 10/31/16 16:22 10/31/16 16:22 10/31/16 16:22 10/31/16 16:22 10/31/16 16:22 Intake and Output: 10/31/16 10/31/16 06:59 18:59 Intake Total 1800 Output Total 10 Balance 1800 -10 - Medications Medications: Current Medications Alprazolam (Xanax) 0.5 mg PO BID [facility] Last Admin: 10/31/16 15:59 Dose: 0.5 mg Amlodipine Besylate (Norvasc) 10 mg PO DAILY [facility] Last Admin: 10/31/16 09:20 Dose: 10 mg Duloxetine HCl (Cymbalta) 60 mg PO HS [facility] Last Admin: 10/30/16 23:01 Dose: 60 mg Enoxaparin Sodium (Lovenox) 40 mg SC DAILY [facility] PRN Reason: Protocol Last Admin: 10/31/16 09:21 Dose: 40 mg Ergocalciferol (Drisdol 50,000 Intl Units Cap) 1 cap PO MO [facility] Gabapentin (Neurontin) 600 mg PO TID [facility] Last Admin: 10/31/16 16:00 Dose: 600 mg Hydrochlorothiazide (Hydrodiuril) 25 mg PO DAILY [facility] Last Admin: 10/31/16 09:22 Dose: 25 mg Sodium Chloride (Sodium Chloride 0.9%) 1,000 mls @ 100 mls/hr IV .Q10H [facility] Last Admin: 10/31/16 16:01 Dose: 100 mls/hr Meropenem 500 mg/ Sodium (Chloride) 100 mls @ 100 mls/hr IVPB Q8 [facility] Last Admin: 10/31/16 15:59 Dose: 100 mls/hr Lactulose (Enulose) 30 gm PO DAILY PRN PRN Reason: Constipation Ondansetron HCl (Zofran Inj) 4 mg IVP Q4 PRN PRN Reason: Nausea/Vomiting Last Admin: 10/31/16 16:07 Dose: 4 mg Oxycodone/Acetaminophen (Percocet 5/325 Mg Tab) 2 tab PO Q6 PRN PRN Reason: Pain, severe (8-10) Stop: 11/02/16 11:36 Last Admin: 10/31/16 15:56 Dose: 2 tab Oxycodone/Acetaminophen (Percocet 5/325 Mg Tab) 1 tab PO Q6 PRN PRN Reason: Pain, moderate (4-7) Stop: 11/02/16 11:37 Pantoprazole Sodium (Protonix Inj) 40 mg IVP DAILY [facility] Last Admin: 10/31/16 09:23 Dose: 40 mg Potassium Chloride (Klor-Con 10) 10 meq PO DAILY [facility] Last Admin: 10/31/16 09:22 Dose: 10 meq Trazodone HCl (Desyrel) 50 mg PO HS [facility] Last Admin: 10/30/16 23:01 Dose: 50 mg Valsartan (Diovan) 320 mg PO DAILY [facility] Last Admin: 10/31/16 09:22 Dose: 320 mg - Labs Labs: 10/31/16 06:00 10/31/16 06:00 PT 13.9 Seconds (9.8-13.1) H 10/27/16 14:15 INR 1.3 (0.9-1.2) H 10/27/16 14:15 APTT 23.7 Seconds (25.6-37.1) L 10/27/16 14:15 - Head Exam Head Exam: ATRAUMATIC - Eye Exam Eye Exam: Normal appearance - ENT Exam ENT Exam: Normal Exam - Neck Exam Neck Exam: Full ROM - Respiratory Exam Respiratory Exam: Clear to Ausculation Bilateral - Cardiovascular Exam Cardiovascular Exam: REGULAR RHYTHM - GI/Abdominal Exam GI & Abdominal Exam: Soft, Normal Bowel Sounds. absent: Tenderness Assessment and Plan (1) Pancreatitis Status: Acute (2) Abdominal pain Assessment & Plan: Clinically better today. Diet advanced to solids. Cholecystostomy management as per surgery. Status: Acute
--- NOTE | 2016-10-31 17:25 | PN ---
SUBJECTIVE: The patient is seen and examined. Interim events noted. Consults noted appreciated. The patient is now on regular medical floor. Feels okay, feels hungry. Denies any abdominal pain, chest pain or shortness of breath. PHYSICAL EXAMINATION: GENERAL: The patient is in no acute distress. VITAL SIGNS: Stable. HEART: S1, S2, normal and regular. LUNGS: Good bilateral air exchange. ABDOMEN: Soft, nontender. No organomegaly. No fluid. Bowel sounds are present. Cholecystostomy tube is draining bile. No sign of acute complication. No guarding, no rigidity, no rebound. EXTREMITIES: No edema. No calf swelling. No tenderness. No acute ischemia. CENTRAL NERVOUS SYSTEM: Essentially unchanged. DIAGNOSTIC DATA: Available diagnostic data reviewed. ASSESSMENT: Overall, the patient is still improving. PLAN: As ordered. William Polanco MD
[2016-11-01] MEDS: Meropenem 500 MG in Sodium Chloride 0.9% 100 ML IVPB SCH ×3 (00:33→16:43)
[2016-11-01 06:17] LABS: BASO # 0.1 K/uL (0.0-0.2); BASO % 0.5 % (0.0-2.0); EOS # 0.4 K/uL (0.0-0.7); EOS % 3.3 % (0.0-4.0); HEMATOCRIT 30.7 % (34.0-47.0); LYMPH # 1.3 K/uL (1.0-4.3); LYMPH % 10.3 % (20.0-40.0); MEAN CELL VOLUME 90.7 fl (81.0-99.0); MEAN CORPUSCULAR HEMOGLOBIN 28.5 pg (27.0-31.0); MEAN CORPUSCULAR HGB CONC 31.4 g/dL (33.0-37.0); MEAN PLATELET VOLUME 7.9 fl (7.2-11.7); MONO # 1.2 K/uL (0.0-0.8); MONO % 9.8 % (0.0-10.0); NEUT # 9.6 K/uL (1.8-7.0); NEUT % 76.1 % (50.0-75.0); NRBC % 0.1 % (0.0-0.0); RED CELL DISTRIBUTION WIDTH 14.2 % (11.5-14.5); WHITE BLOOD COUNT 12.6 K/uL (4.8-10.8)
[2016-11-01] MEDS: Oxycodone/Acetaminophen 5/325 mg Tab PO PRN ×3 (07:04→21:02)
[2016-11-01] MEDS: Sodium Chloride 0.9% 1,000 ML IV SCH (07:32)
[2016-11-01] MEDS: Potassium Chloride 10 mEq ER Tab PO SCH (08:40)
[2016-11-01] MEDS: Enoxaparin 40 mg Syringe SC SCH (08:42)
[2016-11-01] MEDS: Albuterol-Ipratrop 3 mg / 0.5 (3 ml) UD INH SCH (20:29)
[2016-11-02] MEDS: Meropenem 500 MG in Sodium Chloride 0.9% 100 ML IVPB SCH ×3 (01:33→17:19)
[2016-11-02] MEDS: Albuterol-Ipratrop 3 mg / 0.5 (3 ml) UD INH SCH ×4 (02:01→19:45)
[2016-11-02] MEDS: Oxycodone/Acetaminophen 5/325 mg Tab PO PRN ×3 (06:18→23:47)
[2016-11-02 07:08] LABS: HEMATOCRIT 30.5 % (34.0-47.0); MEAN CELL VOLUME 89.7 fl (81.0-99.0); MEAN CORPUSCULAR HEMOGLOBIN 28.8 pg (27.0-31.0); MEAN CORPUSCULAR HGB CONC 32.1 g/dL (33.0-37.0); RED CELL DISTRIBUTION WIDTH 14.2 % (11.5-14.5); WHITE BLOOD COUNT 10.7 K/uL (4.8-10.8)
[2016-11-02 07:19] LABS: ALB/GLOB RATIO 0.8 (1.0-2.1); ALKALINE PHOSPHATASE 80 U/L (38-126); ALT/SGPT 16 U/L (9-52); AST/SGOT 22 U/L (14-36); BILIRUBIN,TOTAL 0.5 mg/dl (0.2-1.3); BLOOD UREA NITROGEN 12 mg/dl (7-17); CARBON DIOXIDE 34 mmol/L (22-30); CHLORIDE 97 mmol/L (98-107); GFR AFRICAN-AMERICAN > 60; GLUCOSE,RANDOM 146 mg/dL (65-105); POTASSIUM 3.7 MMOL/L (3.6-5.0); SODIUM 139 mmol/l (132-148); TOTAL PROTEIN 7.1 G/DL (6.3-8.2)
[2016-11-02] MEDS: Sodium Chloride 0.9% 1,000 ML IV SCH (07:52)
[2016-11-02] MEDS: Enoxaparin 40 mg Syringe SC SCH (09:27)
[2016-11-02] MEDS: Potassium Chloride 10 mEq ER Tab PO SCH (09:29)
--- NOTE | 2016-11-02 09:29 | PN ---
DATE: 11/02/2016 SUBJECTIVE: The patient is seen and examined. Interim events noted. Consults noted appreciated. The patient remains in regular medical floor. Awake and responsive. Had additional abdominal pain for which extra Tylenol was given, which helped. Currently, the patient has no chest pain, shortness of breath, nausea, vomiting, or diarrhea. PHYSICAL EXAMINATION: GENERAL: The patient is no acute distress. VITAL SIGNS: Stable. HEART: S1 and S2, normal and regular. LUNGS: Good bilateral air exchange. ABDOMEN: Soft and nontender. Cholecystostomy tube placed in good position and functioning. No sign of acute abdomen. No guarding. No rigidity. No rebound. EXTREMITIES: No edema. No calf swelling. No tenderness. No acute ischemia. CENTRAL NERVOUS SYSTEMS: Essentially unchanged. DIAGNOSTIC DATA: Available diagnostic data reviewed. ASSESSMENT: The patient's general medical condition is stable. PLAN: As ordered. William Polanco MD
[2016-11-02] MEDS ORDERED: Oxycodone/Acetaminophen 5/325 mg Tab PO PRN (12:03)
--- NOTE | 2016-11-02 17:18 | PN ---
DATE: 11/01/2016 SUBJECTIVE: The patient is seen and examined. Interim events noted. Consults noted and appreciated. Gastroenterology and Surgery followup and intervention noted and appreciated. The patient remains in medical floor. Infectious Disease followup and intervention noted and appreciated. The patient pain, but much improved since admission. No chest pain. No shortness of breath. She was able to eat some food yesterday and tolerated very well. PHYSICAL EXAMINATION: GENERAL: The patient is in no acute distress. VITAL SIGNS: Stable. HEART: S1 and S2, normal and regular. LUNGS: Good bilateral air exchange. ABDOMEN: Colostomy minimal drainage. No sign of complication. Abdomen, otherwise, is soft and nontender. No organomegaly. No fluids. Bowel sounds are present. No sign of acute abdomen. No guarding, no rigidity, and no rebound. EXTREMITIES: No calf swelling. No tenderness. No acute ischemia. CENTRAL NERVOUS SYSTEM: Essentially unchanged. DIAGNOSTIC DATA: Available diagnostic data reviewed. ASSESSMENT: Overall, the patient's general medical condition is stable and improving. PLAN: As ordered. William Polanco MD
[2016-11-03] MEDS: Albuterol-Ipratrop 3 mg / 0.5 (3 ml) UD INH SCH ×4 (01:02→19:18)
[2016-11-03] MEDS: Meropenem 500 MG in Sodium Chloride 0.9% 100 ML IVPB SCH ×3 (01:15→18:01)
[2016-11-03] MEDS: Oxycodone/Acetaminophen 5/325 mg Tab PO PRN ×3 (07:10→20:54)
[2016-11-03 07:37] LABS: HEMATOCRIT 30.4 % (34.0-47.0); MEAN CELL VOLUME 90.1 fl (81.0-99.0); MEAN CORPUSCULAR HGB CONC 32.1 g/dL (33.0-37.0); WHITE BLOOD COUNT 8.7 K/uL (4.8-10.8)
[2016-11-03 07:42] LABS: ALB/GLOB RATIO 0.8 (1.0-2.1); ALKALINE PHOSPHATASE 72 U/L (38-126); ALT/SGPT 15 U/L (9-52); AST/SGOT 17 U/L (14-36); BILIRUBIN,TOTAL 0.4 mg/dl (0.2-1.3); BLOOD UREA NITROGEN 13 mg/dl (7-17); CARBON DIOXIDE 35 mmol/L (22-30); CHLORIDE 98 mmol/L (98-107); GFR AFRICAN-AMERICAN > 60; GLUCOSE,RANDOM 114 mg/dL (65-105); POTASSIUM 3.6 MMOL/L (3.6-5.0); SODIUM 139 mmol/l (132-148)
[2016-11-03] MEDS: Lactulose 10 gm/15 ml Syrup PO PRN (09:16)
[2016-11-03] MEDS: Ergocalciferol 50,000 Intl Units Cap PO SCH (09:17)
[2016-11-03] MEDS: Potassium Chloride 10 mEq ER Tab PO SCH (09:17)
[2016-11-03] MEDS: Enoxaparin 40 mg Syringe SC SCH (09:18)
[2016-11-03] MEDS: Pantoprazole 40 mg EC Tab PO SCH (09:21)
--- NOTE | 2016-11-03 12:54 | CP.PCM.PN ---
Subjective - Date & Time of Evaluation Date of Evaluation: 11/03/16 Time of Evaluation: 12:20 - Subjective Subjective: ID note- Pt. seen and examined today. pt. denies any nausea or vomiting and as per nurse ate fullk breakfast. No diarrhea no fever or chills no abd/ pain today. Objective - Vital Signs/Intake and Output Vital Signs (last 24 hours): Temp Pulse Resp BP Pulse Ox 97.7 F 75 18 125/74 93 L 11/03/16 07:34 11/03/16 07:34 11/03/16 07:34 11/03/16 07:34 11/03/16 07:34 Intake and Output: 11/03/16 11/03/16 06:59 18:59 Intake Total 700 900 Output Total 0 0 Balance 700 900 - Medications Medications: Current Medications Acetaminophen (Tylenol 325mg Tab) 650 mg PO Q6 PRN PRN Reason: Pain, Mild (1-3) Last Admin: 11/01/16 17:23 Dose: 650 mg Albuterol/Ipratropium (Duoneb 3 Mg/0.5 Mg (3 Ml) Ud) 3 ml INH RQ6 [facility] Last Admin: 11/03/16 07:37 Dose: 3 ml Alprazolam (Xanax) 0.5 mg PO BID [facility] Last Admin: 11/03/16 09:20 Dose: 0.5 mg Amlodipine Besylate (Norvasc) 10 mg PO DAILY [facility] Last Admin: 11/03/16 09:17 Dose: 10 mg Duloxetine HCl (Cymbalta) 60 mg PO HS [facility] Last Admin: 11/02/16 21:52 Dose: 60 mg Enoxaparin Sodium (Lovenox) 40 mg SC DAILY [facility] PRN Reason: Protocol Last Admin: 11/03/16 09:18 Dose: 40 mg Ergocalciferol (Drisdol 50,000 Intl Units Cap) 1 cap PO MON [facility] Last Admin: 11/03/16 09:17 Dose: 1 cap Gabapentin (Neurontin) 600 mg PO TID [facility] Last Admin: 11/03/16 12:36 Dose: 600 mg Hydrochlorothiazide (Hydrodiuril) 25 mg PO DAILY [facility] Last Admin: 11/03/16 09:17 Dose: 25 mg Meropenem 500 mg/ Sodium (Chloride) 100 mls @ 100 mls/hr IVPB Q8 [facility] Last Admin: 11/03/16 09:38 Dose: 100 mls/hr Lactulose (Enulose) 30 gm PO DAILY PRN PRN Reason: Constipation Last Admin: 11/03/16 09:16 Dose: 30 gm Nystatin (Nystop Topical Powder) 1 applic TOP TID [facility] Last Admin: 11/03/16 09:50 Dose: 1 applic Ondansetron HCl (Zofran Inj) 4 mg IVP Q4 PRN PRN Reason: Nausea/Vomiting Last Admin: 10/31/16 16:07 Dose: 4 mg Oxycodone/Acetaminophen (Percocet 5/325 Mg Tab) 1 tab PO Q6 PRN PRN Reason: Pain, moderate (4-7) Stop: 11/05/16 12:04 Oxycodone/Acetaminophen (Percocet 5/325 Mg Tab) 2 tab PO Q6 PRN PRN Reason: Pain, severe (8-10) Stop: 11/05/16 12:05 Last Admin: 11/03/16 12:35 Dose: 2 tab Pantoprazole Sodium (Protonix Ec Tab) 40 mg PO DAILY [facility] Last Admin: 11/03/16 09:21 Dose: 40 mg Potassium Chloride (Klor-Con 10) 10 meq PO DAILY [facility] Last Admin: 11/03/16 09:17 Dose: 10 meq Trazodone HCl (Desyrel) 50 mg PO HS [facility] Last Admin: 11/02/16 21:52 Dose: 50 mg Valsartan (Diovan) 320 mg PO DAILY [facility] Last Admin: 11/03/16 09:18 Dose: 320 mg - Labs Labs: - Additional Findings Additional findings: - Constitutional Appears: No Acute Distress - Head Exam Head Exam: ATRAUMATIC - Eye Exam Eye Exam: EOMI, PERRL - ENT Exam ENT Exam: Normal Oropharynx - Respiratory Exam Respiratory Exam: Clear to Auscultation Bilateral, NORMAL BREATHING PATTERN - Cardiovascular Exam Cardiovascular Exam: RRR, +S1, +S2 - GI/Abdominal Exam GI & Abdominal Exam: Soft Additional comments: soft + BS no tenderness to palpation has drain in place in RUQ region draining bilious fluid but scant No guarding, No rebound - Extremities Exam Additional comments: no edema in LE b/l today - Neurological Exam Neurological exam: Alert, Oriented x 3 Laboratory Results - last 72 hr 10/31/16 11/01/16 11/01/16 22:02 04:00 05:43 WBC 12.6 H RBC 3.39 L Hgb 9.6 L Hct 30.7 L MCV 90.7 MCH 28.5 MCHC 31.4 L RDW 14.2 Plt Count 375 MPV 7.9 Neut % (Auto) 76.1 H Lymph % (Auto) 10.3 L [place] % (Auto) 9.8 Eos % (Auto) 3.3 Baso % (Auto) 0.5 Neut # 9.6 H Lymph # 1.3 [place] # 1.2 H Eos # 0.4 Baso # 0.1 Sodium Potassium Chloride Carbon Dioxide Anion Gap BUN Creatinine Est GFR ( Amer) Est GFR (Non-Af Amer) POC Glucose (mg/dL) 105 106 Random Glucose Calcium Total Bilirubin AST ALT Alkaline Phosphatase Total Protein Albumin Globulin Albumin/Globulin Ratio 11/01/16 11/01/16 11/01/16 10:58 15:27 21:36 WBC RBC Hgb Hct MCV MCH MCHC RDW Plt Count MPV Neut % (Auto) Lymph % (Auto) [place] % (Auto) Eos % (Auto) Baso % (Auto) Neut # Lymph # [place] # Eos # Baso # Sodium Potassium Chloride Carbon Dioxide Anion Gap BUN Creatinine Est GFR ( Amer) Est GFR (Non-Af Amer) POC Glucose (mg/dL) 106 140 H 157 H Random Glucose Calcium Total Bilirubin AST ALT Alkaline Phosphatase Total Protein Albumin Globulin Albumin/Globulin Ratio 11/02/16 11/02/16 11/02/16 06:00 06:47 07:00 WBC 10.7 RBC 3.40 L Hgb 9.8 L Hct 30.5 L MCV 89.7 MCH 28.8 MCHC 32.1 L RDW 14.2 Plt Count 383 MPV Neut % (Auto) Lymph % (Auto) [place] % (Auto) Eos % (Auto) Baso % (Auto) Neut # Lymph # [place] # Eos # Baso # Sodium 139 Potassium 3.7 Chloride 97 L Carbon Dioxide 34 H Anion Gap 12 BUN 12 Creatinine 0.6 L Est GFR ( Amer) > 60 Est GFR (Non-Af Amer) > 60 POC Glucose (mg/dL) 142 H Random Glucose 146 H Calcium 9.0 Total Bilirubin 0.5 AST 22 ALT 16 Alkaline Phosphatase 80 Total Protein 7.1 Albumin 3.2 L Globulin 3.9 Albumin/Globulin Ratio 0.8 L 11/02/16 11/02/16 11/02/16 10:53 16:32 22:02 WBC RBC Hgb Hct MCV MCH MCHC RDW Plt Count MPV Neut % (Auto) Lymph % (Auto) [place] % (Auto) Eos % (Auto) Baso % (Auto) Neut # Lymph # [place] # Eos # Baso # Sodium Potassium Chloride Carbon Dioxide Anion Gap BUN Creatinine Est GFR ( Amer) Est GFR (Non-Af Amer) POC Glucose (mg/dL) 111 H 266 H 163 H Random Glucose Calcium Total Bilirubin AST ALT Alkaline Phosphatase Total Protein Albumin Globulin Albumin/Globulin Ratio 11/03/16 11/03/16 11/03/16 07:10 07:10 10:38 WBC 8.7 RBC 3.37 L Hgb 9.8 L Hct 30.4 L MCV 90.1 MCH 29.0 MCHC 32.1 L RDW 14.0 Plt Count 357 MPV Neut % (Auto) Lymph % (Auto) [place] % (Auto) Eos % (Auto) Baso % (Auto) Neut # Lymph # [place] # Eos # Baso # Sodium 139 Potassium 3.6 Chloride 98 Carbon Dioxide 35 H Anion Gap 10 BUN 13 Creatinine 0.6 L Est GFR ( Amer) > 60 Est GFR (Non-Af Amer) > 60 POC Glucose (mg/dL) 138 H Random Glucose 114 H Calcium 9.0 Total Bilirubin 0.4 AST 17 ALT 15 Alkaline Phosphatase 72 Total Protein 7.0 Albumin 3.0 L Globulin 3.9 Albumin/Globulin Ratio 0.8 L 11/03/16 15:48 WBC RBC Hgb Hct MCV MCH MCHC RDW Plt Count MPV Neut % (Auto) Lymph % (Auto) [place] % (Auto) Eos % (Auto) Baso % (Auto) Neut # Lymph # [place] # Eos # Baso # Sodium Potassium Chloride Carbon Dioxide Anion Gap BUN Creatinine Est GFR ( Amer) Est GFR (Non-Af Amer) POC Glucose (mg/dL) 163 H Random Glucose Calcium Total Bilirubin AST ALT Alkaline Phosphatase Total Protein Albumin Globulin Albumin/Globulin Ratio Microbiology 10/31/16 18:20 Blood-Venous Blood Culture - Preliminary NO GROWTH AFTER 48 HOURS 10/31/16 18:10 Blood-Venous Blood Culture - Preliminary NO GROWTH AFTER 48 HOURS 10/30/16 16:35 Blood-Venous Blood Culture - Preliminary NO GROWTH AFTER 3 DAYS 10/27/16 14:15 Blood Blood Culture - Final NO GROWTH AFTER 5 DAYS 10/27/16 14:15 Blood Gram Stain - Final TEST NOT PERFORMED 10/27/16 14:50 Urine,Reagan Urine Culture - Final No Growth (<1,000 CFU/ML) Assessment and Plan (1) Acute cholecystitis Status: Acute (2) Pancreatitis Status: Acute (3) Abdominal pain Status: Acute - Assessment and Plan (Free Text) Assessment: A/P 76 year old female with dm II, HTN with h/o gallstone pancreatitis admitted with RUQ pain found to have acute cholecystitis and cystic duct obstruction and is s/p cholecystostomy tube on 10/29/2016. clinically improved. afebrile past 48 hours minimal leukocytosis has resolved. normal lipase and amylase Blood cx- neg x 4 UA and urine cx- neg plan- advise to continue with meropenem as pt. did well on this regimen last time and had NO allergy to it. day #4. advise to continue with empiric meropenem for another 3 days. after that once pt. is being d/c home or [facility] she can be d/c on oral abx such as cipro and flagyl for another 10 days/ or till drains are removed. f/u with GI and surgical rec to see how long pt. will need the cholecytostomy tube in place. pt. to be f/u with GI and surgical team as outpatient All above d/w patient and with nurse and the [employer] Kaela at length.
--- NOTE | 2016-11-03 13:56 | PN ---
DATE: 11/03/2016 SUBJECTIVE: The patient is seen and examined. Interim events noted. The patient remains in regular medical floor. Feels okay. Had discomfort, also both IV access and attempted to rescheduled for PICC line today. No abdominal pain, eating okay and moving bowels. No chest pain. No shortness of breath. Feels generalized weak. PHYSICAL EXAMINATION: GENERAL: The patient is in no acute distress. VITAL SIGNS: Stable. HEART: S1 and S2 normal and regular. LUNGS: Good bilateral air exchange. ABDOMEN: Soft and nontender. No sign of acute abdomen. No guarding. No rigidity. No rebound. Cholecystostomy tube is in good position and functioning. EXTREMITIES: No edema. No calf swelling. No tenderness. No acute ischemia. CENTRAL NERVOUS SYSTEMS: Essentially unchanged. DIAGNOSTIC DATA: Available diagnostic data reviewed. ASSESSMENT AND PLAN: Overall, the patient's general condition is medically stable. Plan as ordered. William Polanco MD
[2016-11-04] MEDS: Albuterol-Ipratrop 3 mg / 0.5 (3 ml) UD INH SCH ×4 (01:00→19:16)
[2016-11-04] MEDS: Meropenem 500 MG in Sodium Chloride 0.9% 100 ML IVPB SCH ×3 (01:01→16:59)
[2016-11-04] MEDS: Oxycodone/Acetaminophen 5/325 mg Tab PO PRN ×3 (03:53→17:07)
[2016-11-04] MEDS: Pantoprazole 40 mg EC Tab PO SCH (10:13)
[2016-11-04] MEDS: Potassium Chloride 10 mEq ER Tab PO SCH (10:14)
[2016-11-04] MEDS: Enoxaparin 40 mg Syringe SC SCH (10:15)
--- NOTE | 2016-11-04 13:27 | CP.PCM.PN ---
<Emeterio Griffiths - Last Filed: 11/04/16 13:24> Subjective - Date & Time of Evaluation Date of Evaluation: 11/04/16 Time of Evaluation: 07:00 - Subjective Subjective: pt seen and examined at bedside this morning with attending. No acute events overnight. Afebrile. No new complaints. Denies fever/chills, headaches, changes in vision, CP/SOB/Palpiations, N/V/D/C. Objective - Vital Signs/Intake and Output Vital Signs (last 24 hours): Temp Pulse Resp BP Pulse Ox 98 F 91 H 18 121/79 96 11/04/16 09:00 11/04/16 10:14 11/04/16 09:00 11/04/16 10:14 11/04/16 09:00 Intake and Output: 11/04/16 11/04/16 06:59 18:59 Output Total 110 Balance -110 - Medications Medications: Current Medications Acetaminophen (Tylenol 325mg Tab) 650 mg PO Q6 PRN PRN Reason: Pain, Mild (1-3) Last Admin: 11/01/16 17:23 Dose: 650 mg Albuterol/Ipratropium (Duoneb 3 Mg/0.5 Mg (3 Ml) Ud) 3 ml INH RQ6 [facility] Last Admin: 11/04/16 07:22 Dose: 3 ml Alprazolam (Xanax) 0.5 mg PO BID [facility] Last Admin: 11/04/16 10:20 Dose: 0.5 mg Amlodipine Besylate (Norvasc) 10 mg PO DAILY [facility] Last Admin: 11/04/16 10:14 Dose: 10 mg Duloxetine HCl (Cymbalta) 60 mg PO HS [facility] Last Admin: 11/03/16 21:40 Dose: 60 mg Enoxaparin Sodium (Lovenox) 40 mg SC DAILY [facility] PRN Reason: Protocol Last Admin: 11/04/16 10:15 Dose: 40 mg Ergocalciferol (Drisdol 50,000 Intl Units Cap) 1 cap PO MON [facility] Last Admin: 11/03/16 09:17 Dose: 1 cap Gabapentin (Neurontin) 600 mg PO TID [facility] Last Admin: 11/04/16 13:04 Dose: 600 mg Hydrochlorothiazide (Hydrodiuril) 25 mg PO DAILY [facility] Last Admin: 11/04/16 10:14 Dose: 25 mg Meropenem 500 mg/ Sodium (Chloride) 100 mls @ 100 mls/hr IVPB Q8 [facility] Last Admin: 11/04/16 09:58 Dose: 100 mls/hr Lactulose (Enulose) 30 gm PO DAILY PRN PRN Reason: Constipation Last Admin: 11/03/16 09:16 Dose: 30 gm Nystatin (Nystop Topical Powder) 1 applic TOP TID [facility] Last Admin: 11/04/16 13:03 Dose: 1 applic Ondansetron HCl (Zofran Inj) 4 mg IVP Q4 PRN PRN Reason: Nausea/Vomiting Last Admin: 10/31/16 16:07 Dose: 4 mg Oxycodone/Acetaminophen (Percocet 5/325 Mg Tab) 1 tab PO Q6 PRN PRN Reason: Pain, moderate (4-7) Stop: 11/05/16 12:04 Last Admin: 11/03/16 15:52 Dose: 1 tab Oxycodone/Acetaminophen (Percocet 5/325 Mg Tab) 2 tab PO Q6 PRN PRN Reason: Pain, severe (8-10) Stop: 11/05/16 12:05 Last Admin: 11/04/16 10:26 Dose: 2 tab Pantoprazole Sodium (Protonix Ec Tab) 40 mg PO DAILY [facility] Last Admin: 11/04/16 10:13 Dose: 40 mg Potassium Chloride (Klor-Con 10) 10 meq PO DAILY [facility] Last Admin: 11/04/16 10:14 Dose: 10 meq Trazodone HCl (Desyrel) 50 mg PO HS [facility] Last Admin: 11/03/16 21:40 Dose: 50 mg Valsartan (Diovan) 320 mg PO DAILY [facility] Last Admin: 11/04/16 10:13 Dose: 320 mg - Labs Labs: 11/03/16 07:10 11/03/16 07:10 PT 13.9 Seconds (9.8-13.1) H 10/27/16 14:15 INR 1.3 (0.9-1.2) H 10/27/16 14:15 APTT 23.7 Seconds (25.6-37.1) L 10/27/16 14:15 - Constitutional Appears: Non-toxic, No Acute Distress - Respiratory Exam Respiratory Exam: Clear to Ausculation Bilateral, NORMAL BREATHING PATTERN - Cardiovascular Exam Cardiovascular Exam: REGULAR RHYTHM, RRR, +S1, +S2 - GI/Abdominal Exam GI & Abdominal Exam: Soft, Tenderness (RUQ), Normal Bowel Sounds. absent: Guarding, Rigid - Extremities Exam Extremities Exam: absent: Calf Tenderness - Neurological Exam Neurological Exam: Alert, Awake Assessment and Plan (1) Acute cholecystitis Assessment & Plan: Peripheral access obtained today continue with Meropenem for 3 more days as per ID tube to remain for 4 weeks, will followup with surgery for cholecystectomy MRCP today to rule out stone obstruction. Status: Acute (2) DVT prophylaxis Assessment & Plan: Lovenox 40mg SC QD Status: Acute <Polanco,William K - Last Filed: 11/04/16 13:44> Objective - Vital Signs/Intake and Output Vital Signs (last 24 hours): Temp Pulse Resp BP Pulse Ox 98 F 91 H 18 121/79 96 11/04/16 09:00 11/04/16 10:14 11/04/16 09:00 11/04/16 10:14 11/04/16 09:00 Intake and Output: 11/04/16 11/04/16 06:59 18:59 Output Total 110 Balance -110 - Medications Medications: Current Medications Acetaminophen (Tylenol 325mg Tab) 650 mg PO Q6 PRN PRN Reason: Pain, Mild (1-3) Last Admin: 11/01/16 17:23 Dose: 650 mg Albuterol/Ipratropium (Duoneb 3 Mg/0.5 Mg (3 Ml) Ud) 3 ml INH RQ6 [facility] Last Admin: 11/04/16 07:22 Dose: 3 ml Alprazolam (Xanax) 0.5 mg PO BID [facility] Last Admin: 11/04/16 10:20 Dose: 0.5 mg Amlodipine Besylate (Norvasc) 10 mg PO DAILY [facility] Last Admin: 11/04/16 10:14 Dose: 10 mg Duloxetine HCl (Cymbalta) 60 mg PO HS [facility] Last Admin: 11/03/16 21:40 Dose: 60 mg Enoxaparin Sodium (Lovenox) 40 mg SC DAILY [facility] PRN Reason: Protocol Last Admin: 11/04/16 10:15 Dose: 40 mg Ergocalciferol (Drisdol 50,000 Intl Units Cap) 1 cap PO MON [facility] Last Admin: 11/03/16 09:17 Dose: 1 cap Gabapentin (Neurontin) 600 mg PO TID [facility] Last Admin: 11/04/16 13:04 Dose: 600 mg Hydrochlorothiazide (Hydrodiuril) 25 mg PO DAILY [facility] Last Admin: 11/04/16 10:14 Dose: 25 mg Meropenem 500 mg/ Sodium (Chloride) 100 mls @ 100 mls/hr IVPB Q8 [facility] Last Admin: 11/04/16 09:58 Dose: 100 mls/hr Lactulose (Enulose) 30 gm PO DAILY PRN PRN Reason: Constipation Last Admin: 11/03/16 09:16 Dose: 30 gm Nystatin (Nystop Topical Powder) 1 applic TOP TID [facility] Last Admin: 11/04/16 13:03 Dose: 1 applic Ondansetron HCl (Zofran Inj) 4 mg IVP Q4 PRN PRN Reason: Nausea/Vomiting Last Admin: 10/31/16 16:07 Dose: 4 mg Oxycodone/Acetaminophen (Percocet 5/325 Mg Tab) 1 tab PO Q6 PRN PRN Reason: Pain, moderate (4-7) Stop: 11/05/16 12:04 Last Admin: 11/03/16 15:52 Dose: 1 tab Oxycodone/Acetaminophen (Percocet 5/325 Mg Tab) 2 tab PO Q6 PRN PRN Reason: Pain, severe (8-10) Stop: 11/05/16 12:05 Last Admin: 11/04/16 10:26 Dose: 2 tab Pantoprazole Sodium (Protonix Ec Tab) 40 mg PO DAILY [facility] Last Admin: 11/04/16 10:13 Dose: 40 mg Potassium Chloride (Klor-Con 10) 10 meq PO DAILY [facility] Last Admin: 11/04/16 10:14 Dose: 10 meq Trazodone HCl (Desyrel) 50 mg PO HS [facility] Last Admin: 11/03/16 21:40 Dose: 50 mg Valsartan (Diovan) 320 mg PO DAILY [facility] Last Admin: 11/04/16 10:13 Dose: 320 mg - Labs Labs: 11/03/16 07:10 11/03/16 07:10 PT 13.9 Seconds (9.8-13.1) H 10/27/16 14:15 INR 1.3 (0.9-1.2) H 10/27/16 14:15 APTT 23.7 Seconds (25.6-37.1) L 10/27/16 14:15 Assessment and Plan - Assessment and Plan (Free Text) Assessment: Patient was personally seen and examined by me in rounds with residents. Available labs and diagnostic data reviewed. Case, Patient's condition and management plan Discussed with residents in rounds. Agree with resident's progress note. Plan: As ordered.
[2016-11-05] MEDS: Meropenem 500 MG in Sodium Chloride 0.9% 100 ML IVPB SCH ×3 (00:55→16:54)
[2016-11-05] MEDS: Albuterol-Ipratrop 3 mg / 0.5 (3 ml) UD INH SCH ×4 (01:02→19:13)
[2016-11-05 06:31] LABS: HEMATOCRIT 29.6 % (34.0-47.0); MEAN CELL VOLUME 89.2 fl (81.0-99.0); MEAN CORPUSCULAR HEMOGLOBIN 28.2 pg (27.0-31.0); MEAN CORPUSCULAR HGB CONC 31.6 g/dL (33.0-37.0); RED CELL DISTRIBUTION WIDTH 14.7 % (11.5-14.5)
[2016-11-05 06:42] LABS: BLOOD UREA NITROGEN 13 mg/dl (7-17); CALCIUM 8.8 mg/dL (8.4-10.2); CARBON DIOXIDE 32 mmol/L (22-30); CHLORIDE 99 mmol/L (98-107); GFR AFRICAN-AMERICAN > 60; GLUCOSE,RANDOM 123 mg/dL (65-105); POTASSIUM 3.4 MMOL/L (3.6-5.0); SODIUM 139 mmol/l (132-148)
[2016-11-05] MEDS: Oxycodone/Acetaminophen 5/325 mg Tab PO PRN ×3 (06:50→20:59)
[2016-11-05] MEDS: Pantoprazole 40 mg EC Tab PO SCH (09:54)
[2016-11-05] MEDS: Potassium Chloride 10 mEq ER Tab PO SCH (09:54)
--- NOTE | 2016-11-05 10:00 | CP.PCM.PN ---
Subjective - Date & Time of Evaluation Date of Evaluation: 11/05/16 Time of Evaluation: 09:57 - Subjective Subjective: No abdominal complaints Objective - Vital Signs/Intake and Output Vital Signs (last 24 hours): Temp Pulse Resp BP Pulse Ox 97.8 F 95 H 18 128/72 95 11/05/16 07:49 11/05/16 09:54 11/05/16 07:49 11/05/16 09:54 11/05/16 07:49 Intake and Output: 11/05/16 11/05/16 06:59 18:59 Intake Total 600 Output Total 25 Balance 575 - Medications Medications: Current Medications Acetaminophen (Tylenol 325mg Tab) 650 mg PO Q6 PRN PRN Reason: Pain, Mild (1-3) Last Admin: 11/01/16 17:23 Dose: 650 mg Albuterol/Ipratropium (Duoneb 3 Mg/0.5 Mg (3 Ml) Ud) 3 ml INH RQ6 [facility] Last Admin: 11/05/16 07:49 Dose: 3 ml Alprazolam (Xanax) 0.5 mg PO BID [facility] Last Admin: 11/05/16 09:52 Dose: 0.5 mg Amlodipine Besylate (Norvasc) 10 mg PO DAILY [facility] Last Admin: 11/05/16 09:54 Dose: 10 mg Docusate Sodium (Colace) 300 mg PO HS [facility] Last Admin: 11/04/16 21:27 Dose: 300 mg Duloxetine HCl (Cymbalta) 60 mg PO HS [facility] Last Admin: 11/04/16 21:25 Dose: 60 mg Enoxaparin Sodium (Lovenox) 40 mg SC DAILY [facility] PRN Reason: Protocol Last Admin: 11/04/16 10:15 Dose: 40 mg Ergocalciferol (Drisdol 50,000 Intl Units Cap) 1 cap PO MON [facility] Last Admin: 11/03/16 09:17 Dose: 1 cap Gabapentin (Neurontin) 600 mg PO TID [facility] Last Admin: 11/05/16 09:54 Dose: 600 mg Hydrochlorothiazide (Hydrodiuril) 25 mg PO DAILY [facility] Last Admin: 11/05/16 09:53 Dose: 25 mg Meropenem 500 mg/ Sodium (Chloride) 100 mls @ 100 mls/hr IVPB Q8 [facility] Last Admin: 11/05/16 00:55 Dose: 100 mls/hr Lactulose (Enulose) 30 gm PO DAILY PRN PRN Reason: Constipation Last Admin: 11/03/16 09:16 Dose: 30 gm Nystatin (Nystop Topical Powder) 1 applic TOP TID [facility] Last Admin: 11/04/16 17:00 Dose: 1 applic Ondansetron HCl (Zofran Inj) 4 mg IVP Q4 PRN PRN Reason: Nausea/Vomiting Last Admin: 10/31/16 16:07 Dose: 4 mg Oxycodone/Acetaminophen (Percocet 5/325 Mg Tab) 1 tab PO Q6 PRN PRN Reason: Pain, moderate (4-7) Stop: 11/05/16 12:04 Last Admin: 11/03/16 15:52 Dose: 1 tab Oxycodone/Acetaminophen (Percocet 5/325 Mg Tab) 2 tab PO Q6 PRN PRN Reason: Pain, severe (8-10) Stop: 11/05/16 12:05 Last Admin: 11/05/16 06:50 Dose: 2 tab Pantoprazole Sodium (Protonix Ec Tab) 40 mg PO DAILY [facility] Last Admin: 11/05/16 09:54 Dose: 40 mg Potassium Chloride (Klor-Con 10) 10 meq PO DAILY [facility] Last Admin: 11/04/16 10:14 Dose: 10 meq Trazodone HCl (Desyrel) 50 mg PO HS [facility] Last Admin: 11/04/16 21:25 Dose: 50 mg Valsartan (Diovan) 320 mg PO DAILY [facility] Last Admin: 11/04/16 10:13 Dose: 320 mg - Labs Labs: 11/05/16 06:23 11/05/16 06:23 PT 13.9 Seconds (9.8-13.1) H 10/27/16 14:15 INR 1.3 (0.9-1.2) H 10/27/16 14:15 APTT 23.7 Seconds (25.6-37.1) L 10/27/16 14:15 - Head Exam Head Exam: ATRAUMATIC - Eye Exam Eye Exam: Periorbital tenderness - ENT Exam ENT Exam: Normal Exam - Respiratory Exam Respiratory Exam: Clear to Ausculation Bilateral - Cardiovascular Exam Cardiovascular Exam: REGULAR RHYTHM - GI/Abdominal Exam GI & Abdominal Exam: Soft. absent: Tenderness Assessment and Plan (1) Pancreatitis Status: Acute (2) Abdominal pain Assessment & Plan: For cholangiogram via cholecytostomy tube today to r/o CBD stone. Clinically doing well. F/u with surgery for management of gallbladder. Status: Acute
[2016-11-05] MEDS: Enoxaparin 40 mg Syringe SC SCH (10:01)
--- NOTE | 2016-11-05 10:22 | CP.PCM.PN ---
Subjective - Date & Time of Evaluation Date of Evaluation: 11/05/16 Time of Evaluation: 07:15 - Subjective Subjective: pt seen and examined at bedside with attending this morning. Uneventful overnight, afebrile, no new complaints. Pt is refusing to go for MRCP due to claustrophobia and even denied sedative use. Mild RUQ pain controlled with meds and improving. Objective - Vital Signs/Intake and Output Vital Signs (last 24 hours): Temp Pulse Resp BP Pulse Ox 97.8 F 95 H 18 128/72 95 11/05/16 07:49 11/05/16 09:54 11/05/16 07:49 11/05/16 09:54 11/05/16 07:49 Intake and Output: 11/05/16 11/05/16 06:59 18:59 Intake Total 600 Output Total 25 Balance 575 - Medications Medications: Current Medications Acetaminophen (Tylenol 325mg Tab) 650 mg PO Q6 PRN PRN Reason: Pain, Mild (1-3) Last Admin: 11/01/16 17:23 Dose: 650 mg Albuterol/Ipratropium (Duoneb 3 Mg/0.5 Mg (3 Ml) Ud) 3 ml INH RQ6 [facility] Last Admin: 11/05/16 07:49 Dose: 3 ml Alprazolam (Xanax) 0.5 mg PO BID [facility] Last Admin: 11/05/16 09:52 Dose: 0.5 mg Amlodipine Besylate (Norvasc) 10 mg PO DAILY [facility] Last Admin: 11/05/16 09:54 Dose: 10 mg Docusate Sodium (Colace) 300 mg PO HS [facility] Last Admin: 11/04/16 21:27 Dose: 300 mg Duloxetine HCl (Cymbalta) 60 mg PO HS [facility] Last Admin: 11/04/16 21:25 Dose: 60 mg Enoxaparin Sodium (Lovenox) 40 mg SC DAILY [facility] PRN Reason: Protocol Last Admin: 11/05/16 10:01 Dose: 40 mg Ergocalciferol (Drisdol 50,000 Intl Units Cap) 1 cap PO MON [facility] Last Admin: 11/03/16 09:17 Dose: 1 cap Gabapentin (Neurontin) 600 mg PO TID [facility] Last Admin: 11/05/16 09:54 Dose: 600 mg Hydrochlorothiazide (Hydrodiuril) 25 mg PO DAILY [facility] Last Admin: 11/05/16 09:53 Dose: 25 mg Meropenem 500 mg/ Sodium (Chloride) 100 mls @ 100 mls/hr IVPB Q8 [facility] Last Admin: 11/05/16 10:12 Dose: 100 mls/hr Lactulose (Enulose) 30 gm PO DAILY PRN PRN Reason: Constipation Last Admin: 11/03/16 09:16 Dose: 30 gm Nystatin (Nystop Topical Powder) 1 applic TOP TID [facility] Last Admin: 11/05/16 10:04 Dose: 1 applic Ondansetron HCl (Zofran Inj) 4 mg IVP Q4 PRN PRN Reason: Nausea/Vomiting Last Admin: 10/31/16 16:07 Dose: 4 mg Oxycodone/Acetaminophen (Percocet 5/325 Mg Tab) 1 tab PO Q6 PRN PRN Reason: Pain, moderate (4-7) Stop: 11/05/16 12:04 Last Admin: 11/03/16 15:52 Dose: 1 tab Oxycodone/Acetaminophen (Percocet 5/325 Mg Tab) 2 tab PO Q6 PRN PRN Reason: Pain, severe (8-10) Stop: 11/05/16 12:05 Last Admin: 11/05/16 06:50 Dose: 2 tab Pantoprazole Sodium (Protonix Ec Tab) 40 mg PO DAILY [facility] Last Admin: 11/05/16 09:54 Dose: 40 mg Potassium Chloride (Klor-Con 10) 10 meq PO DAILY [facility] Last Admin: 11/05/16 09:54 Dose: 10 meq Trazodone HCl (Desyrel) 50 mg PO HS [facility] Last Admin: 11/04/16 21:25 Dose: 50 mg Valsartan (Diovan) 320 mg PO DAILY [facility] Last Admin: 11/05/16 09:55 Dose: 320 mg - Labs Labs: 11/05/16 06:23 11/05/16 06:23 PT 13.9 Seconds (9.8-13.1) H 10/27/16 14:15 INR 1.3 (0.9-1.2) H 10/27/16 14:15 APTT 23.7 Seconds (25.6-37.1) L 10/27/16 14:15 - Constitutional Appears: Non-toxic, No Acute Distress - ENT Exam ENT Exam: Mucous Membranes Moist - Respiratory Exam Respiratory Exam: Clear to Ausculation Bilateral, NORMAL BREATHING PATTERN - Cardiovascular Exam Cardiovascular Exam: REGULAR RHYTHM, RRR, +S1, +S2 - GI/Abdominal Exam GI & Abdominal Exam: Soft, Tenderness (RUQ, improving ), Normal Bowel Sounds. absent: Distended, Firm, Guarding, Rigid - Extremities Exam Extremities Exam: absent: Calf Tenderness - Neurological Exam Neurological Exam: Alert, Awake Assessment and Plan (1) Acute cholecystitis Assessment & Plan: final two days of IV Abx, WBC WNL pt to go for Cholangiogram today to rule out CBD obstruction as per GI, will f/ u results possible transfer to TCU to complete ABx course and start rehab Status: Acute (2) DVT prophylaxis Assessment & Plan: Lovenox 40mg SQ QD Status: Acute
[2016-11-05] MEDS ORDERED: Potassium Chloride 20 mEq ER Tab PO ONE (12:35)
[2016-11-06] MEDS: Meropenem 500 MG in Sodium Chloride 0.9% 100 ML IVPB SCH ×3 (01:41→16:11)
[2016-11-06] MEDS: Albuterol-Ipratrop 3 mg / 0.5 (3 ml) UD INH SCH ×4 (02:23→19:01)
[2016-11-06 06:42] LABS: HEMATOCRIT 29.2 % (34.0-47.0); MEAN CELL VOLUME 89.2 fl (81.0-99.0); MEAN CORPUSCULAR HEMOGLOBIN 29.1 pg (27.0-31.0); MEAN CORPUSCULAR HGB CONC 32.7 g/dL (33.0-37.0); RED CELL DISTRIBUTION WIDTH 14.4 % (11.5-14.5)
[2016-11-06 06:46] LABS: BLOOD UREA NITROGEN 19 mg/dl (7-17); CALCIUM 8.9 mg/dL (8.4-10.2); CARBON DIOXIDE 32 mmol/L (22-30); CHLORIDE 99 mmol/L (98-107); GFR AFRICAN-AMERICAN > 60; GLUCOSE,RANDOM 127 mg/dL (65-105); POTASSIUM 3.7 MMOL/L (3.6-5.0); SODIUM 140 mmol/l (132-148)
[2016-11-06] MEDS: Oxycodone/Acetaminophen 5/325 mg Tab PO PRN ×4 (07:11→21:33)
[2016-11-06] MEDS: Potassium Chloride 10 mEq ER Tab PO SCH (10:26)
[2016-11-06] MEDS: Enoxaparin 40 mg Syringe SC SCH (10:26)
[2016-11-06] MEDS: Pantoprazole 40 mg EC Tab PO SCH (10:28)
--- NOTE | 2016-11-06 14:59 | CP.PCM.PN ---
Subjective - Date & Time of Evaluation Date of Evaluation: 11/06/16 Time of Evaluation: 14:51 - Subjective Subjective: Consult note for Dr. Suarez: 76 y/o female with PMHx of HTN, DM, fibromyalgia, and arthritis seen at bedside for elongated nails. Patient states that she was seen by Dr. Suarez last night. Patient states that she does not have any pain to her nails but she does not like the way they look. Patient denies of any other pedal complains. PMHx: HTN, DM, fibromyalgia, and arthritis PSHx: Right hand surgery Allergies: Penicillins SHx: Denies of smoking hx, EtOH or illicit drug usage Objective - Vital Signs/Intake and Output Vital Signs (last 24 hours): Temp Pulse Resp BP Pulse Ox 97.5 F L 71 18 134/78 94 L 11/06/16 07:41 11/06/16 10:27 11/06/16 07:41 11/06/16 10:27 11/06/16 07:41 Intake and Output: 11/06/16 11/06/16 06:59 18:59 Intake Total 340 Balance 340 - Medications Medications: Current Medications Acetaminophen (Tylenol 325mg Tab) 650 mg PO Q6 PRN PRN Reason: Pain, Mild (1-3) Last Admin: 11/01/16 17:23 Dose: 650 mg Albuterol/Ipratropium (Duoneb 3 Mg/0.5 Mg (3 Ml) Ud) 3 ml INH RQ6 [facility] Last Admin: 11/06/16 13:39 Dose: 3 ml Alprazolam (Xanax) 0.5 mg PO BID [facility] Last Admin: 11/06/16 10:34 Dose: 0.5 mg Amlodipine Besylate (Norvasc) 10 mg PO DAILY [facility] Last Admin: 11/06/16 10:27 Dose: 10 mg Docusate Sodium (Colace) 300 mg PO HS [facility] Last Admin: 11/05/16 21:00 Dose: 300 mg Duloxetine HCl (Cymbalta) 60 mg PO HS [facility] Last Admin: 11/05/16 21:00 Dose: 60 mg Enoxaparin Sodium (Lovenox) 40 mg SC DAILY [facility] PRN Reason: Protocol Last Admin: 11/06/16 10:26 Dose: 40 mg Ergocalciferol (Drisdol 50,000 Intl Units Cap) 1 cap PO MON [facility] Last Admin: 11/03/16 09:17 Dose: 1 cap Gabapentin (Neurontin) 600 mg PO TID [facility] Last Admin: 11/06/16 14:21 Dose: 600 mg Hydrochlorothiazide (Hydrodiuril) 25 mg PO DAILY [facility] Last Admin: 11/06/16 14:22 Dose: 25 mg Meropenem 500 mg/ Sodium (Chloride) 100 mls @ 100 mls/hr IVPB Q8 [facility] Last Admin: 11/06/16 10:26 Dose: 100 mls/hr Lactulose (Enulose) 30 gm PO DAILY PRN PRN Reason: Constipation Last Admin: 11/03/16 09:16 Dose: 30 gm Nystatin (Nystop Topical Powder) 1 applic TOP TID [facility] Last Admin: 11/06/16 14:21 Dose: 1 applic Ondansetron HCl (Zofran Inj) 4 mg IVP Q4 PRN PRN Reason: Nausea/Vomiting Last Admin: 10/31/16 16:07 Dose: 4 mg Oxycodone/Acetaminophen (Percocet 5/325 Mg Tab) 1 tab PO Q6 PRN PRN Reason: Pain, moderate (4-7) Stop: 11/08/16 13:38 Oxycodone/Acetaminophen (Percocet 5/325 Mg Tab) 2 tab PO Q6 PRN PRN Reason: Pain, severe (8-10) Stop: 11/08/16 13:41 Last Admin: 11/06/16 07:12 Dose: 2 tab Pantoprazole Sodium (Protonix Ec Tab) 40 mg PO DAILY [facility] Last Admin: 11/06/16 10:28 Dose: 40 mg Potassium Chloride (Klor-Con 10) 10 meq PO DAILY [facility] Last Admin: 11/06/16 10:26 Dose: 10 meq Trazodone HCl (Desyrel) 50 mg PO HS [facility] Last Admin: 11/05/16 21:00 Dose: 50 mg Valsartan (Diovan) 320 mg PO DAILY [facility] Last Admin: 11/06/16 10:25 Dose: 320 mg - Labs Labs: 11/06/16 06:25 11/06/16 06:25 PT 13.9 Seconds (9.8-13.1) H 10/27/16 14:15 INR 1.3 (0.9-1.2) H 10/27/16 14:15 APTT 23.7 Seconds (25.6-37.1) L 10/27/16 14:15 - Constitutional Appears: Well, Non-toxic, No Acute Distress - Extremities Exam Additional comments: Bilateral LE exam: VASC: DP/PT pulses are palpable 2/4, Cap refill time: < 3 sec to all digits, Temp gradient: warm to cool from proximal to distal, no pitting or non-pitting edema noted DERM: nails are elongated, discolored and dystrophic, no open lesions, no clinical suspicion of active infection NEURO: Protective sensation mildly diminished ORTHO: No tenderness on palpation of the nails - Neurological Exam Neurological Exam: Alert, Awake, Oriented x3 - Psychiatric Exam Psychiatric exam: Normal Affect, Normal Mood Assessment and Plan - Assessment and Plan (Free Text) Assessment: 76 y/o female seen at bedside for elongated nails Plan: Patient seen and evaluated at bedside Aseptic debridement of the nails using sterile nippers Patient tolerated the procedure well Patient is stable from podiatry standpoint
--- NOTE | 2016-11-06 15:28 | CP.PCM.PN ---
Subjective - Date & Time of Evaluation Date of Evaluation: 11/06/16 Time of Evaluation: 07:30 - Subjective Subjective: pt seen and examined at bedside this am. No acute events overnight. Afebrile. Pt complains of mild RUQ that is improving daily. Tolerating PO intake. Final day of IV Abx Objective - Vital Signs/Intake and Output Vital Signs (last 24 hours): Temp Pulse Resp BP Pulse Ox 97.5 F L 71 18 134/78 94 L 11/06/16 07:41 11/06/16 10:27 11/06/16 07:41 11/06/16 10:27 11/06/16 07:41 Intake and Output: 11/06/16 11/06/16 06:59 18:59 Intake Total 340 Balance 340 - Medications Medications: Current Medications Acetaminophen (Tylenol 325mg Tab) 650 mg PO Q6 PRN PRN Reason: Pain, Mild (1-3) Last Admin: 11/01/16 17:23 Dose: 650 mg Albuterol/Ipratropium (Duoneb 3 Mg/0.5 Mg (3 Ml) Ud) 3 ml INH RQ6 [facility] Last Admin: 11/06/16 13:39 Dose: 3 ml Alprazolam (Xanax) 0.5 mg PO BID [facility] Last Admin: 11/06/16 10:34 Dose: 0.5 mg Amlodipine Besylate (Norvasc) 10 mg PO DAILY [facility] Last Admin: 11/06/16 10:27 Dose: 10 mg Docusate Sodium (Colace) 300 mg PO HS [facility] Last Admin: 11/05/16 21:00 Dose: 300 mg Duloxetine HCl (Cymbalta) 60 mg PO HS [facility] Last Admin: 11/05/16 21:00 Dose: 60 mg Enoxaparin Sodium (Lovenox) 40 mg SC DAILY [facility] PRN Reason: Protocol Last Admin: 11/06/16 10:26 Dose: 40 mg Ergocalciferol (Drisdol 50,000 Intl Units Cap) 1 cap PO MON [facility] Last Admin: 11/03/16 09:17 Dose: 1 cap Gabapentin (Neurontin) 600 mg PO TID [facility] Last Admin: 11/06/16 14:21 Dose: 600 mg Hydrochlorothiazide (Hydrodiuril) 25 mg PO DAILY [facility] Last Admin: 11/06/16 14:22 Dose: 25 mg Meropenem 500 mg/ Sodium (Chloride) 100 mls @ 100 mls/hr IVPB Q8 [facility] Last Admin: 11/06/16 10:26 Dose: 100 mls/hr Lactulose (Enulose) 30 gm PO DAILY PRN PRN Reason: Constipation Last Admin: 11/03/16 09:16 Dose: 30 gm Nystatin (Nystop Topical Powder) 1 applic TOP TID [facility] Last Admin: 11/06/16 14:21 Dose: 1 applic Ondansetron HCl (Zofran Inj) 4 mg IVP Q4 PRN PRN Reason: Nausea/Vomiting Last Admin: 10/31/16 16:07 Dose: 4 mg Oxycodone/Acetaminophen (Percocet 5/325 Mg Tab) 1 tab PO Q6 PRN PRN Reason: Pain, moderate (4-7) Stop: 11/08/16 13:38 Oxycodone/Acetaminophen (Percocet 5/325 Mg Tab) 2 tab PO Q6 PRN PRN Reason: Pain, severe (8-10) Stop: 11/08/16 13:41 Last Admin: 11/06/16 07:12 Dose: 2 tab Pantoprazole Sodium (Protonix Ec Tab) 40 mg PO DAILY [facility] Last Admin: 11/06/16 10:28 Dose: 40 mg Potassium Chloride (Klor-Con 10) 10 meq PO DAILY [facility] Last Admin: 11/06/16 10:26 Dose: 10 meq Trazodone HCl (Desyrel) 50 mg PO HS [facility] Last Admin: 11/05/16 21:00 Dose: 50 mg Valsartan (Diovan) 320 mg PO DAILY [facility] Last Admin: 11/06/16 10:25 Dose: 320 mg - Labs Labs: 11/06/16 06:25 11/06/16 06:25 PT 13.9 Seconds (9.8-13.1) H 10/27/16 14:15 INR 1.3 (0.9-1.2) H 10/27/16 14:15 APTT 23.7 Seconds (25.6-37.1) L 10/27/16 14:15 - Constitutional Appears: Non-toxic, No Acute Distress - Respiratory Exam Respiratory Exam: Clear to Ausculation Bilateral, NORMAL BREATHING PATTERN - Cardiovascular Exam Cardiovascular Exam: REGULAR RHYTHM, RRR, +S1, +S2. absent: JVD - GI/Abdominal Exam GI & Abdominal Exam: Soft, Tenderness (RUQ), Normal Bowel Sounds. absent: Distended, Firm, Guarding, Rigid - Extremities Exam Extremities Exam: absent: Calf Tenderness - Neurological Exam Neurological Exam: Awake, Oriented x3 Assessment and Plan (1) Acute cholecystitis Assessment & Plan: final day of IV abx, pt to be transferred to rehab unit after completion. Status: Acute (2) DVT prophylaxis Assessment & Plan: as ordered Status: Acute
[2016-11-07] MEDS: Meropenem 500 MG in Sodium Chloride 0.9% 100 ML IVPB SCH ×3 (00:58→17:13)
[2016-11-07] MEDS: Albuterol-Ipratrop 3 mg / 0.5 (3 ml) UD INH SCH ×4 (02:00→19:05)
[2016-11-07] MEDS: Oxycodone/Acetaminophen 5/325 mg Tab PO PRN ×3 (07:07→21:37)
[2016-11-07] MEDS: Potassium Chloride 10 mEq ER Tab PO SCH (10:31)
[2016-11-07] MEDS: Enoxaparin 40 mg Syringe SC SCH (10:32)
[2016-11-07] MEDS: Pantoprazole 40 mg EC Tab PO SCH (10:33)
--- NOTE | 2016-11-07 14:36 | CP.PCM.PN ---
Subjective - Date & Time of Evaluation Date of Evaluation: 11/07/16 Time of Evaluation: 07:30 - Subjective Subjective: pt seen and examined at bedside this morning. No acute events overnight. Afebrile. Completed IV Abx course. Pt has no new complaints. Did not qualify for TCU. Nurse came to teach tube maintience however due to patients lack of manual dexterity, she is unable will to do so. Siblings unavailable to assit. Will attempt to move to subacute or home assist as tube needs to remain in place till 0ct 19. Objective - Vital Signs/Intake and Output Vital Signs (last 24 hours): Temp Pulse Resp BP Pulse Ox 97.8 F 73 20 126/77 94 L 11/07/16 08:03 11/07/16 10:33 11/07/16 08:03 11/07/16 10:33 11/07/16 10:12 Intake and Output: 11/07/16 11/07/16 06:59 18:59 Intake Total 1480 340 Output Total 525 90 Balance 955 250 - Medications Medications: Current Medications Acetaminophen (Tylenol 325mg Tab) 650 mg PO Q6 PRN PRN Reason: Pain, Mild (1-3) Last Admin: 11/01/16 17:23 Dose: 650 mg Albuterol/Ipratropium (Duoneb 3 Mg/0.5 Mg (3 Ml) Ud) 3 ml INH RQ6 [facility] Last Admin: 11/07/16 13:42 Dose: Not Given Alprazolam (Xanax) 0.5 mg PO BID [facility] Last Admin: 11/07/16 10:35 Dose: 0.5 mg Amlodipine Besylate (Norvasc) 10 mg PO DAILY [facility] Last Admin: 11/07/16 10:33 Dose: 10 mg Docusate Sodium (Colace) 300 mg PO HS [facility] Last Admin: 11/06/16 21:27 Dose: 300 mg Duloxetine HCl (Cymbalta) 60 mg PO HS [facility] Last Admin: 11/06/16 21:27 Dose: 60 mg Enoxaparin Sodium (Lovenox) 40 mg SC DAILY [facility] PRN Reason: Protocol Last Admin: 11/07/16 10:32 Dose: 40 mg Ergocalciferol (Drisdol 50,000 Intl Units Cap) 1 cap PO MON [facility] Last Admin: 11/03/16 09:17 Dose: 1 cap Gabapentin (Neurontin) 600 mg PO TID [facility] Last Admin: 11/07/16 14:16 Dose: 600 mg Hydrochlorothiazide (Hydrodiuril) 25 mg PO DAILY [facility] Last Admin: 11/07/16 10:31 Dose: 25 mg Meropenem 500 mg/ Sodium (Chloride) 100 mls @ 100 mls/hr IVPB Q8 [facility] Last Admin: 11/07/16 10:32 Dose: 100 mls/hr Lactulose (Enulose) 30 gm PO DAILY PRN PRN Reason: Constipation Last Admin: 11/03/16 09:16 Dose: 30 gm Nystatin (Nystop Topical Powder) 1 applic TOP TID [facility] Last Admin: 11/07/16 14:16 Dose: 1 applic Ondansetron HCl (Zofran Inj) 4 mg IVP Q4 PRN PRN Reason: Nausea/Vomiting Last Admin: 10/31/16 16:07 Dose: 4 mg Oxycodone/Acetaminophen (Percocet 5/325 Mg Tab) 1 tab PO Q6 PRN PRN Reason: Pain, moderate (4-7) Stop: 11/08/16 13:38 Last Admin: 11/06/16 17:30 Dose: 1 tab Oxycodone/Acetaminophen (Percocet 5/325 Mg Tab) 2 tab PO Q6 PRN PRN Reason: Pain, severe (8-10) Stop: 11/08/16 13:41 Last Admin: 11/07/16 07:07 Dose: 2 tab Pantoprazole Sodium (Protonix Ec Tab) 40 mg PO DAILY [facility] Last Admin: 11/07/16 10:33 Dose: 40 mg Potassium Chloride (Klor-Con 10) 10 meq PO DAILY [facility] Last Admin: 11/07/16 10:31 Dose: 10 meq Trazodone HCl (Desyrel) 50 mg PO HS [facility] Last Admin: 11/06/16 21:27 Dose: 50 mg Valsartan (Diovan) 320 mg PO DAILY [facility] Last Admin: 11/07/16 10:31 Dose: 320 mg - Labs Labs: 11/06/16 06:25 11/06/16 06:25 PT 13.9 Seconds (9.8-13.1) H 10/27/16 14:15 INR 1.3 (0.9-1.2) H 10/27/16 14:15 APTT 23.7 Seconds (25.6-37.1) L 10/27/16 14:15 - Constitutional Appears: Non-toxic, No Acute Distress - Head Exam Head Exam: ATRAUMATIC - Eye Exam Eye Exam: EOMI Pupil Exam: PERRL - ENT Exam ENT Exam: Mucous Membranes Moist - Respiratory Exam Respiratory Exam: Clear to Ausculation Bilateral, NORMAL BREATHING PATTERN - Cardiovascular Exam Cardiovascular Exam: REGULAR RHYTHM, RRR - GI/Abdominal Exam GI & Abdominal Exam: Soft, Normal Bowel Sounds - Neurological Exam Neurological Exam: Alert, Awake Assessment and Plan (1) Acute cholecystitis Assessment & Plan: tube to remain in place for 4 weeks will f/u with surgery prior to removal Status: Acute (2) DVT prophylaxis Assessment & Plan: as ordered Status: Acute
[2016-11-08] MEDS: Albuterol-Ipratrop 3 mg / 0.5 (3 ml) UD INH SCH ×4 (02:00→19:13)
[2016-11-08] MEDS: Meropenem 500 MG in Sodium Chloride 0.9% 100 ML IVPB SCH ×3 (02:09→17:34)
[2016-11-08] MEDS: Oxycodone/Acetaminophen 5/325 mg Tab PO PRN ×3 (05:33→20:20)
[2016-11-08] MEDS: Alum-Mag Hydrox-Simethicone Susp (30 mL) PO PRN ×2 (05:43→11:15)
[2016-11-08] MEDS: Pantoprazole 40 mg EC Tab PO SCH (11:04)
[2016-11-08] MEDS: Enoxaparin 40 mg Syringe SC SCH (11:06)
[2016-11-08] MEDS: Potassium Chloride 10 mEq ER Tab PO SCH (11:07)
--- NOTE | 2016-11-08 12:48 | PN ---
DATE: 11/07/2016 The patient is seen and examined. Interim events noted. The patient's discharge was deemed unsafe because of the cholecystostomy tube, so the patient was not discharged, was healthy. She complained of no chest pain. No shortness of breath. PHYSICAL EXAMINATION: GENERAL: The patient is in no acute distress. VITAL SIGNS: Stable. HEART: S1 and S2 normal and regular. LUNGS: Good bilateral air entry. ABDOMEN: Soft and nontender. Cholecystostomy tube is in good position and functioning. No sign of acute abdomen. No guarding. No rigidity. No rebound. EXTREMITIES: No edema. No calf swelling. No tenderness. No acute ischemia. CENTRAL NERVOUS SYSTEM: Essentially unchanged. DIAGNOSTIC DATA: Available diagnostic data reviewed. ASSESSMENT: Overall, the patient's general medical condition is stable. The patient might sign out. Risk of signing out against medical advice explained. The patient understood, but still considering to sign against medical advice. PLAN: As ordered. William Polanco MD
[2016-11-08] MEDS: Lactulose 10 gm/15 ml Syrup PO PRN (13:52)
[2016-11-08] MEDS ORDERED: Chlorhexidine Gluconate 1 APPL/PKT TP ONE (19:00)
[2016-11-08] MEDS ORDERED: Oxycodone/Acetaminophen 5/325 mg Tab PO PRN (20:12)
[2016-11-08] MEDS ORDERED: Simethicone 80 mg Chewtab PO ONE (21:00)
[2016-11-09] MEDS: Albuterol-Ipratrop 3 mg / 0.5 (3 ml) UD INH SCH ×4 (01:32→19:34)
[2016-11-09] MEDS: Meropenem 500 MG in Sodium Chloride 0.9% 100 ML IVPB SCH ×3 (01:51→16:29)
[2016-11-09] MEDS: Oxycodone/Acetaminophen 5/325 mg Tab PO PRN ×4 (01:53→22:39)
[2016-11-09] MEDS: Enoxaparin 40 mg Syringe SC SCH (10:02)
[2016-11-09] MEDS: Pantoprazole 40 mg EC Tab PO SCH (10:03)
[2016-11-09] MEDS: Potassium Chloride 10 mEq ER Tab PO SCH (10:04)
[2016-11-09] MEDS ORDERED: Simethicone 80 mg Chewtab PO STA (20:06)
[2016-11-10] MEDS: Albuterol-Ipratrop 3 mg / 0.5 (3 ml) UD INH SCH ×4 (01:15→19:12)
[2016-11-10] MEDS: Meropenem 500 MG in Sodium Chloride 0.9% 100 ML IVPB SCH ×3 (01:19→16:47)
[2016-11-10] MEDS: Oxycodone/Acetaminophen 5/325 mg Tab PO PRN ×2 (05:06→23:35)
--- NOTE | 2016-11-10 08:29 | PN ---
DATE: 11/10/2016 SUBJECTIVE: The patient is seen and examined. Interim events noted. The patient remains in regular medical floor. The patient feels okay, minimal abdominal pain, much improved than admission, controlled with current medication. No chest pain. No shortness of breath. Tolerating diet very well, also moving bowels without any problems. PHYSICAL EXAMINATION GENERAL: The patient is in no acute distress. VITAL SIGNS: Stable. HEART: S1 and S2 normal and regular. LUNGS: Good bilateral air exchange. ABDOMEN: Soft and nontender. Cholecystostomy tube is in good position and functioning. No sign of acute abdomen. No guarding. No rigidity. No rebound. EXTREMITIES: No edema. No calf swelling. No tenderness. No acute ischemia. CENTRAL NERVOUS SYSTEMS: Essentially unchanged. DIAGNOSTIC DATA: Available diagnostic data reviewed. ASSESSMENT: Overall, the patient's general medical condition is stable. The patient is on possible discharge today. PLAN: As ordered. Case and plan discussed with the patient at length at bedside. William Polanco MD
--- NOTE | 2016-11-10 09:11 | PN ---
DATE: 11/09/2016 SUBJECTIVE: The patient seen and examined. Interim events noted. The patient remains in regular medical floor. The patient is sleeping arousable, but does not want to get into conversation at this time. Had episodes of abdominal pain, now resolved, able to eat well, moving bowels alright. No chest pain, no shortness of breath. PHYSICAL EXAMINATION GENERAL: The patient is in no acute distress. VITAL SIGNS: Stable. HEART: S1 and S2, normal and regular. LUNGS: Good bilateral air exchange. ABDOMEN: Soft and nontender. EXTREMITIES: No edema. No calf swelling. No tenderness. No acute ischemia. CENTRAL NERVOUS SYSTEMS: Essentially unchanged. DIAGNOSTIC DATA: Available diagnostic data reviewed. IMPRESSION: Overall, the patient's general medical condition is stable. PLAN: As ordered. William Polanco MD
[2016-11-10] MEDS: Ergocalciferol 50,000 Intl Units Cap PO SCH (09:27)
[2016-11-10] MEDS: Potassium Chloride 10 mEq ER Tab PO SCH (09:28)
[2016-11-10] MEDS: Enoxaparin 40 mg Syringe SC SCH (09:28)
[2016-11-10] MEDS: Pantoprazole 40 mg EC Tab PO SCH (09:30)
[2016-11-10 12:18] LABS: HEMATOCRIT 32.6 % (34.0-47.0); MEAN CELL VOLUME 88.6 fl (81.0-99.0); MEAN CORPUSCULAR HEMOGLOBIN 29.1 pg (27.0-31.0); MEAN CORPUSCULAR HGB CONC 32.8 g/dL (33.0-37.0); RED CELL DISTRIBUTION WIDTH 14.9 % (11.5-14.5)
[2016-11-10 12:27] LABS: BLOOD UREA NITROGEN 27 mg/dl (7-17); CALCIUM 9.3 mg/dL (8.4-10.2); CARBON DIOXIDE 30 mmol/L (22-30); CHLORIDE 98 mmol/L (98-107); GFR AFRICAN-AMERICAN > 60; GLUCOSE,RANDOM 101 mg/dL (65-105); POTASSIUM 4.5 MMOL/L (3.6-5.0); SODIUM 136 mmol/l (132-148)
[2016-11-10] MEDS: Lactulose 10 gm/15 ml Syrup PO PRN (16:50)
[2016-11-11] MEDS: Albuterol-Ipratrop 3 mg / 0.5 (3 ml) UD INH SCH ×3 (01:00→13:25)
[2016-11-11] MEDS: Meropenem 500 MG in Sodium Chloride 0.9% 100 ML IVPB SCH ×2 (01:17→09:09)
[2016-11-11 08:35] VITALS: BP 117/75; PULSE 87; RESP 18; TEMP 98.3; O2SAT 94
[2016-11-11] MEDS: Potassium Chloride 10 mEq ER Tab PO SCH (09:08)
[2016-11-11] MEDS: Pantoprazole 40 mg EC Tab PO SCH (09:08)
[2016-11-11] MEDS: Enoxaparin 40 mg Syringe SC SCH (09:09)
[2016-11-11] MEDS: Oxycodone/Acetaminophen 5/325 mg Tab PO PRN (09:20)
--- NOTE | 2016-11-11 10:38 | CP.PCM.PN ---
Subjective - Date & Time of Evaluation Date of Evaluation: 11/11/16 Time of Evaluation: 10:35 - Subjective Subjective: pt seen and examined with attending at bedside today. No acute events overnight , afebrile. Pt has no new complaints and wants to go home. Objective - Vital Signs/Intake and Output Vital Signs (last 24 hours): Temp Pulse Resp BP Pulse Ox 98.3 F 87 18 117/75 94 L 11/11/16 08:34 11/11/16 09:10 11/11/16 08:34 11/11/16 09:10 11/11/16 08:34 Intake and Output: 11/11/16 11/11/16 06:59 18:59 Intake Total 100 Output Total 200 Balance -100 - Medications Medications: Current Medications Acetaminophen (Tylenol 325mg Tab) 650 mg PO Q6 PRN PRN Reason: Pain, Mild (1-3) Last Admin: 11/09/16 06:08 Dose: 650 mg Al Hydrox/Mg Hydrox/Simethicone (Maalox Plus 30 Ml) 30 ml PO Q6 PRN PRN Reason: Indigestion / Heartburn Last Admin: 11/08/16 11:15 Dose: 30 ml Albuterol/Ipratropium (Duoneb 3 Mg/0.5 Mg (3 Ml) Ud) 3 ml INH RQ6 [facility] Last Admin: 11/11/16 07:17 Dose: Not Given Alprazolam (Xanax) 0.5 mg PO BID [facility] Last Admin: 11/11/16 09:11 Dose: 0.5 mg Amlodipine Besylate (Norvasc) 10 mg PO DAILY [facility] Last Admin: 11/11/16 09:10 Dose: 10 mg Docusate Sodium (Colace) 300 mg PO HS [facility] Last Admin: 11/10/16 21:23 Dose: 300 mg Duloxetine HCl (Cymbalta) 60 mg PO HS [facility] Last Admin: 11/10/16 21:31 Dose: 60 mg Enoxaparin Sodium (Lovenox) 40 mg SC DAILY [facility] PRN Reason: Protocol Last Admin: 11/11/16 09:09 Dose: 40 mg Ergocalciferol (Drisdol 50,000 Intl Units Cap) 1 cap PO MON [facility] Last Admin: 11/10/16 09:27 Dose: 1 cap Gabapentin (Neurontin) 600 mg PO TID [facility] Last Admin: 11/11/16 09:09 Dose: 600 mg Hydrochlorothiazide (Hydrodiuril) 25 mg PO DAILY [facility] Last Admin: 11/11/16 09:07 Dose: 25 mg Meropenem 500 mg/ Sodium (Chloride) 100 mls @ 100 mls/hr IVPB Q8 [facility] Last Admin: 11/11/16 09:09 Dose: 100 mls/hr Lactulose (Enulose) 30 gm PO DAILY PRN PRN Reason: Constipation Last Admin: 11/10/16 16:50 Dose: 30 gm Nystatin (Nystop Topical Powder) 1 applic TOP TID [facility] Last Admin: 11/11/16 09:10 Dose: 1 applic Ondansetron HCl (Zofran Inj) 4 mg IVP Q4 PRN PRN Reason: Nausea/Vomiting Last Admin: 10/31/16 16:07 Dose: 4 mg Oxycodone/Acetaminophen (Percocet 5/325 Mg Tab) 1 tab PO Q6 PRN PRN Reason: Pain, moderate (4-7) Stop: 11/11/16 20:13 Last Admin: 11/10/16 16:53 Dose: 1 tab Oxycodone/Acetaminophen (Percocet 5/325 Mg Tab) 2 tab PO Q6 PRN PRN Reason: Pain, severe (8-10) Stop: 11/11/16 20:15 Last Admin: 11/11/16 09:20 Dose: 2 tab Pantoprazole Sodium (Protonix Ec Tab) 40 mg PO DAILY [facility] Last Admin: 11/11/16 09:08 Dose: 40 mg Potassium Chloride (Klor-Con 10) 10 meq PO DAILY [facility] Last Admin: 11/11/16 09:08 Dose: 10 meq Trazodone HCl (Desyrel) 50 mg PO HS [facility] Last Admin: 11/10/16 21:24 Dose: 50 mg Valsartan (Diovan) 320 mg PO DAILY [facility] Last Admin: 11/11/16 09:07 Dose: 320 mg - Labs Labs: 11/10/16 12:15 11/10/16 12:15 PT 13.9 Seconds (9.8-13.1) H 10/27/16 14:15 INR 1.3 (0.9-1.2) H 10/27/16 14:15 APTT 23.7 Seconds (25.6-37.1) L 10/27/16 14:15 - Constitutional Appears: Non-toxic, No Acute Distress - ENT Exam ENT Exam: Mucous Membranes Moist - Respiratory Exam Respiratory Exam: Clear to Ausculation Bilateral, NORMAL BREATHING PATTERN - Cardiovascular Exam Cardiovascular Exam: REGULAR RHYTHM, RRR, +S1, +S2. absent: JVD, Rubs - GI/Abdominal Exam GI & Abdominal Exam: Soft, Tenderness (mild RUQ tenderess), Normal Bowel Sounds - Neurological Exam Neurological Exam: Alert, Awake, Oriented x3 Assessment and Plan (1) Acute cholecystitis Assessment & Plan: tube to remain in for 4 weeks f/u with gen surg in oct for cholecystectomy Status: Acute (2) DVT prophylaxis Assessment & Plan: Lovenox 40mg SC QD Status: Acute
--- NOTE | 2016-11-11 13:18 | CP.PCM.PCO ---
Assessment/Plan - Assessment/Plan Assessment (Free Text): Pt stable in no apparent distress. Pt insist on going home and has adamantly refused going to a [facility] despite the need to safely get continued care, PT and cholecystectomy drain management. Pt has been educated multiple times by direct care staffer on how to empty the drains, she has correctly repeated the steps to emptying, applying suction and closing the drain; however, pt lacks the manual dexterity of her hands to actually empty and close the drain. Pt's son, per nursing staff does not have time to come in to learn drain management. Spoke to pt's daughter, Wilfred ([phone]) on Thursday who expressed that she is home but unable to come to the hospital to learn how to care for pt's cholecystectomy drain. Trudy, SW manager unit, spoke to pt's daughter yesterday, however, pt's daughter still expressed she is unable to come to hospital. Pt has completed her antibiotic infusion and is to be discharged home today. Per Trudy, APS will be called to assess pt's condition at home. Furthermore, visiting RN services have been arranged to see pt at home tomorrow to reinforce to pt and teach pt's daughter how to care for the drain. Pt is medically stable, seen today and cleared for d/c home by Dr. Polanco under home care and APS. Pt has an appointment with IR on December 04 to assess and remove cholecystectomy drain. Pt made aware of this. Pt to f/u as outpatient with Dr. Reddy and with PMD. Patient and RN aware of plan. - Problems Patient Problems: Problem List (Active/Current) Problem Status Onset Code Acute cholecystitis Acute K81.0
== END 2016-11-11 15:30 | disposition home health service (06) | DRG 444 ==
LOC: H.ER 12:55 → H.ERHOLD 21:46 → H.TEL 10-28 01:44 → H.MEDSURG1 10-30 14:44
PROVIDERS: ADMIT Internal Medicine; ATTEND Internal Medicine
PROC: 0F9430Z Drainage of Gallbladder with Drainage Device, Percutaneous Approach (ICD-10-PCS; principal; 2016-10-29 08:45)
PROC: 3E0234Z Introduction of Serum, Toxoid and Vaccine into Muscle, Percutaneous Approach (ICD-10-PCS; 2016-10-31)
PROC: 0HBRXZZ Excision of Toe Nail, External Approach (ICD-10-PCS; 2016-11-06)
PROC: 0HBRXZZ Excision of Toe Nail, External Approach (ICD-10-PCS; 2016-11-06)
PROC: 0HBRXZZ Excision of Toe Nail, External Approach (ICD-10-PCS; 2016-11-06)
PROC: 0HBRXZZ Excision of Toe Nail, External Approach (ICD-10-PCS; 2016-11-06)
PROC: 0HBRXZZ Excision of Toe Nail, External Approach (ICD-10-PCS; 2016-11-06)
PROC: 0HBRXZZ Excision of Toe Nail, External Approach (ICD-10-PCS; 2016-11-06)
PROC: 0HBRXZZ Excision of Toe Nail, External Approach (ICD-10-PCS; 2016-11-06)
PROC: 0HBRXZZ Excision of Toe Nail, External Approach (ICD-10-PCS; 2016-11-06)
PROC: 0HBRXZZ Excision of Toe Nail, External Approach (ICD-10-PCS; 2016-11-06)
PROC: 0HBRXZZ Excision of Toe Nail, External Approach (ICD-10-PCS; 2016-11-06)
DX: K80.01 Calculus of gallbladder with acute cholecystitis with obstruction (principal); K85.10 Biliary acute pancreatitis without necrosis or infection; A41.9 Sepsis, unspecified organism; E11.22 Type 2 diabetes mellitus with diabetic chronic kidney disease; I48.92 Unspecified atrial flutter; J44.9 Chronic obstructive pulmonary disease, unspecified; K86.1 Other chronic pancreatitis; D47.3 Essential (hemorrhagic) thrombocythemia; K56.41 Fecal impaction; D64.9 Anemia, unspecified; K21.9 Gastro-esophageal reflux disease without esophagitis; E78.5 Hyperlipidemia, unspecified; M79.7 Fibromyalgia; M81.0 Age-related osteoporosis without current pathological fracture; I12.9 Hypertensive chronic kidney disease with stage 1 through stage 4 chronic kidney disease, or unspecified chronic kidney disease; N18.9 Chronic kidney disease, unspecified; L60.8 Other nail disorders; G89.29 Other chronic pain; F41.9 Anxiety disorder, unspecified; M16.11 Unilateral primary osteoarthritis, right hip; F32.9 Major depressive disorder, single episode, unspecified; Z23 Encounter for immunization; Z88.0 Allergy status to penicillin; Z86.010 Personal history of colon polyps; Z87.891 Personal history of nicotine dependence; Z87.01 Personal history of pneumonia (recurrent)

== ENCOUNTER 2016-12-04 11:04 | Day surgery (SDC) | payer MEDICARE, BC ==
[2016-12-04 11:27] VITALS: BMI 32.8
[2016-12-04 12:06] VITALS: RESP 18
[2016-12-04] MEDS ORDERED: Midazolam 2 MG/2 ML VIAL ONE (13:37)
[2016-12-04] MEDS ORDERED: Iodixanol 320 MG/ML 100 ML BOTTLE IV ONE (13:51)
[2016-12-04] MEDS ORDERED: Lidocaine 1% Inj (20ml) ONE (13:59)
[2016-12-04] MEDS ORDERED: Lactated Ringer's 1,000 ML IV ONE (14:20)
--- NOTE | 2016-12-04 14:25 | CP.SDSHP ---
Same Day Surgery H & P - History Proposed Procedure: Cholangiogram and cholecystostomy tube removal Pre-Op Diagnosis: Cholecystitis - Allergies Allergies: Allergies Penicillins Allergy (Verified 12/04/16 11:27) RASH - Physical Exam Vital Signs: Vital Signs 12/04/16 12/04/16 12/04/16 11:57 12:03 12:58 Temperature 97.6 F Pulse Rate 76 76 Respiratory 18 Rate Blood Pressure 74/49 L 94/60 L O2 Sat by Pulse 95 Oximetry 12/04/16 13:44 Temperature 97.3 F L Pulse Rate 82 Respiratory 18 Rate Blood Pressure 110/65 O2 Sat by Pulse 99 Oximetry Mental Status: Alert & Oriented x3 Neuro: WNL Heart: WNL Lungs: WNL - Impression Impression: Pt with acute cholecystitis treated with perc. cholecystostomy tube placement in October. Pt presents for cholangiogram and cholecystostomy tube removal. Pt. Evaluated Today:Candidate for Anesthesia & Procedure: Yes (ASA 3 Malampati 3) - Date & Time Date: 12/04/16 Time: 14:00 Short Stay Discharge - Short Stay Discharge Admitting Diagnosis/Reason for Visit: K81.0 Referrals: Roderick Coffey MD [Primary Care Provider] -
--- NOTE | 2016-12-04 14:28 | PCM.SURG1 ---
Surgeon's Initial Post Op Note - Surgeon's Notes Surgeon: Christofer Jefferson MD [employer] [place]: NONE Type of Anesthesia: IV Sedation Pre-Operative Diagnosis: Acute cholecystitis treated with perc. cholecystostomy tube placement in October. Operative Findings: Cholangiogram showed a patent cystic duct. Intrahepatic ducts are unremarkable. There is no flow across ampulla to small bowel after 10 minutes. No obvious filling defects present in the CBD. Post-Operative Diagnosis: Cholecystitis, cholecystostomy tube Operation Performed: Cholangiogram. The cholecystostomy tube was not removed since the cholangiogram showed no flow into small bowel. Specimen/Specimens Removed: none Estimated Blood Loss: EBL {In ML}: 0 Blood Products Given: N/A Drains Used: No Drains Post-Op Condition: Fair Date of Surgery/Procedure: 12/04/16 Time of Surgery/Procedure: 14:20
[2016-12-04] MEDS ORDERED: Lactated Ringer's 1,000 ML IV SCH (14:30)
[2016-12-04] MEDS ORDERED: Albuterol 0.083% Inhal Sol (2.5 mg/3 mL) UD INH ONE (15:13)
[2016-12-04 16:04] VITALS: BP 104/66; PULSE 81; TEMP 97.2; O2SAT 95
--- NOTE | 2016-12-05 10:07 | VASCULAR ---
. PROCEDURE: Date of procedure: 12/04/2016 Procedure: 1. Cholangiogram through existing cholecystostomy tube. Medications: 6cc 1% percent lidocaine, patient was sedated by the anesthesiologist along with physiologic monitoring. HISTORY: Cholecystitis status post placement cholecystostomy tube. TECHNIQUE: Following informed consent the patient right abdomen was marked. The patient was placed supine on the interventional table and procedure time-out was called. The existing cholecystostomy tube and surrounding skin were prepped and draped in the usual sterile fashion A cholangiogram was performed through existing cholecystostomy tube. Dilute contrast injected through the cholecystostomy tube outline the gallbladder. With continued gallbladder filling, there was flow of contrast into the cystic duct and into the common bile duct. There is retrograde filling of the right and left intrahepatic bile ducts which are otherwise unremarkable. There was no flow of contrast seen across the ampulla into small bowel. After 10 minutes, there was still no opacification of the small bowel. Cut off of contrast is seen distally. The cholecystostomy tube was not removed. IMPRESSION: Cholangiogram showed a patent cystic duct. There is no flow of contrast across the ampulla into small bowel. Cut off of contrast is seen in distal CBD. This may represent obstruction. The cholecystostomy tube was therefore not removed. .
== END 2016-12-04 16:50 | disposition home or self-care (01) ==
LOC: H.OPSURG 11:04
PROVIDERS: ATTEND Internal Medicine
DX: K81.0 Acute cholecystitis (principal); I48.91 Unspecified atrial fibrillation; J44.9 Chronic obstructive pulmonary disease, unspecified; E11.9 Type 2 diabetes mellitus without complications; I10 Essential (primary) hypertension; K21.9 Gastro-esophageal reflux disease without esophagitis; M79.1 Myalgia; F41.8 Other specified anxiety disorders; Z88.0 Allergy status to penicillin
CPT/HCPCS: 36415; 47531; 82948; 85610; 85730; C1769; C1894; J3010; J7120; Q9967

== ENCOUNTER 2016-12-23 11:42 | Inpatient (IN) | payer MEDICARE, BC ==
[2016-12-23 11:42] VITALS: PULSE 171
[2016-12-23] MEDS: Insulin Regular 100 units/ml SC SCH ×2 (11:45→22:50)
[2016-12-23 12:00] VITALS: BMI 25.7
[2016-12-23] MEDS ORDERED: Sodium Chloride 0.9% 1,000 ML IV STA (12:06)
[2016-12-23] MEDS ORDERED: Albuterol-Ipratrop 3 mg / 0.5 (3 ml) UD IH STA (12:07)
--- NOTE | 2016-12-23 12:13 | ED PDOC ---
HPI: General Adult Time Seen by Provider: 12/23/16 11:49 Chief Complaint (Nursing): Chest Pain Chief Complaint (Provider): Cough History Per: Patient History/Exam Limitations: no limitations, clinical condition Onset/Duration Of Symptoms: Days (3) Current Symptoms Are (Timing): Still Present Additional Complaint(s): 3 days of cough, congestion, runny nose. Her Dr. started her on antibiotics yesterday for this, does not know which. Yesterday she had lower chest pain on left and right which is gone now. Visiting nurse went to see her and sent to the ED. Pt. states she feels cold. No numbness, tingles. Has a drain in her gall bladder that is been there for 6 weeks. Pt abd pain mild upper. No back pain. Past Medical History Reviewed: Historical Data, Nursing Documentation, Vital Signs Vital Signs: Last Vital Signs Temp 95.6 F L 12/23/16 14:49 Pulse 65 12/23/16 14:49 Resp 16 12/23/16 14:49 BP 108/62 12/23/16 14:49 Pulse Ox 96 12/23/16 13:40 - Medical History PMH: Anxiety, Arthritis, Bronchitis, Cardia Arrhythmia (Flutter), Colonic Polyps , COPD, Depression, Fibromyalgia, Fractures, HTN, Osteoporosis, Pancreatitis, Peripheral Edema (+2), Pneumonia (5 YRS AGO), Chronic Pain (bilateral LE) Denies: Anemia, Diabetes, Hepatitis, HIV, Chronic Kidney Disease, Sexually Transmitted Disease - Surgical History Surgical History: Carotid Endarterectomy, Endoscopy Denies: Pacemaker Other surgeries: gall bladder drain - Family History Family History: States: Unknown Family Hx - Social History Alcohol: None Drugs: Denies - Immunization History Hx Tetanus Toxoid Vaccination: No Hx Influenza Vaccination: No Hx Pneumococcal Vaccination: No - Home Medications Home Medications: Ambulatory Orders Medication Instructions Recorded DULoxetine [Cymbalta] 60 mg PO HS #30 ecc 10/23/16 traZODone [Desyrel] 50 mg PO HS #30 tab 10/23/16 Ergocalciferol (Vitamin D2) 50,000 unit PO MO 10/27/16 [Vitamin D2] Potassium Chloride [Klor-Con 10] 10 meq PO DAILY 10/27/16 Valsartan [Diovan] 320 mg PO DAILY 10/27/16 amLODIPine [Norvasc] 5 mg PO DAILY 10/27/16 hydroCHLOROthiazide [Hydrodiuril] 25 mg PO DAILY 10/27/16 Alprazolam [Xanax] 0.5 mg PO TID 12/23/16 Aspirin [Ecotrin] 81 mg PO DAILY 12/23/16 Cetirizine HCl [All Day Allergy 10 mg PO DAILY 12/23/16 Relief] Dicyclomine [Bentyl] 10 mg PO Q6H PRN 12/23/16 Docusate [Colace] 100 mg PO TID PRN 12/23/16 Esomeprazole Magnesium [Nexium] 40 mg PO DAILY 12/23/16 Ondansetron [Zofran Tab] 4 mg PO Q8H PRN 12/23/16 Oxycodone HCl/Acetaminophen 1 tab PO Q6H PRN 12/23/16 [Percocet 10-325 mg Tablet] Sennosides [Senna] 8.6 mg PO BID PRN 12/23/16 - Allergies Allergies/Adverse Reactions: Allergies Allergy/AdvReac Type Severity Reaction Status Date / Time Penicillins Allergy RASH Verified 12/04/16 11:27 Review of Systems ROS Statement: Except As Marked, All Systems Reviewed And Found Negative Constitutional: Positive for: Chills ENT: Positive for: Nose Congestion Cardiovascular: Positive for: Chest Pain Respiratory: Positive for: Cough. Negative for: Shortness of Breath Gastrointestinal: Positive for: Abdominal Pain Physical Exam - Reviewed Nursing Documentation Reviewed: Yes Vital Signs Reviewed: Yes - Physical Exam Appears: Positive for: Uncomfortable Head Exam: Positive for: ATRAUMATIC, NORMAL INSPECTION, NORMOCEPHALIC Skin: Positive for: Dry, Cyanosis (mild b/l finger tips but capillary refill less then 2 seconds b/l) Eye Exam: Positive for: EOMI, Normal appearance, PERRL ENT: Positive for: Normal ENT Inspection Neck: Positive for: Normal, Painless ROM, Supple Cardiovascular/Chest: Positive for: Regular Rate, Rhythm, Chest Non Tender Respiratory: Positive for: Decreased Breath Sounds. Negative for: Accessory Muscle Use, Wheezing Gastrointestinal/Abdominal: Positive for: Bowel Sounds, Soft, Tenderness (upper abd mild; gall bladder drain in place R and draining; site with no erythema or dc; nontender) Back: Positive for: Normal Inspection. Negative for: L CVA Tenderness, R CVA Tenderness Extremity: Negative for: Normal ROM (limite b/l lower extremity per pt.), Tenderness, Pedal Edema, Calf Tenderness Neurologic/Psych: Positive for: Alert, project control officer II-XII, Oriented - Laboratory Results Result Diagrams: 12/23/16 15:00 12/23/16 15:00 Interpretation Of Abn Labs: 22.2 wbc, lipase elevated, bun and cr elevated - ECG ECG: Positive for: Interpreted By Me, Viewed By Me ECG Rhythm: Positive for: Sinus Rhythm, Nonspecific Changes - Radiology X-Ray: Interpreted by Me, Viewed By Me, Read By Radiologist X-Ray Interpretation: Infiltrates (? b/l) - Progress ED Course And Treament: 1537: Pt. got PICC line as she is a difficult stick. Pt. bp borderline low. Likely from severe dehydration considering bun 90, 2.0 cr. Surgery evaluated pt. under Dr. Castro who saw pt. last visit. 1545: Dr. Sinclair will admit tele. Continue fluids LR. Spoke with GI. Will consult. Agree with current plan and management. - Critical Care Total Time (In Min): 60 Documented Critical Care: Time excludes all time spent performint seperately billable procedures Disposition - Clinical Impression Clinical Impression: Pneumonia, Sepsis, Severe dehydration, Pancreatitis - Patient ED Disposition Is Patient to be Admitted: Yes Counseled Patient/Family Regarding: Studies Performed, Diagnosis - Disposition Disposition Time: 15:30 Condition: SERIOUS Forms: [employer] (Kinyarwanda)
[2016-12-23] MEDS ORDERED: Albuterol-Ipratrop 3 mg / 0.5 (3 ml) UD ONE (12:39)
[2016-12-23 13:18] LABS: RBC URINE 3 /hpf (0-3); URINE BACTERIA RARE (<OCC); URINE BILIRUBIN NEGATIVE (NEGATIVE); URINE BLOOD NEGATIVE (NEGATIVE); URINE COLOR AMBER (YELLOW); URINE GLUCOSE (UA) NEG (Normal); URINE KETONE NEGATIVE (NEGATIVE); URINE LEUKOCYTE ESTERASE TRACE Leu/uL (Negative); URINE PROTEIN 30 mg/dL (NEGATIVE); URINE UROBILINOGEN 0.2-1.0 mg/dL (0.2-1.0); WBC URINE 8 /hpf (0-5)
--- NOTE | 2016-12-23 13:20 | CP.PCM.CON ---
<Marck Duran - Last Filed: 12/23/16 13:31> History of Present Illness - History of Present Illness History of Present Illness: General Surgery- Dr. Reddy 76 F pmhx chronic pancreatitis, GERD, periampullary diverticulum, PTC tube placement by IR in October presents to the emergency room with 3 days of cough , congestion, runny nose. PMD started her on antibiotics yesterday pt does not know which. Surgery was consulted generalized abdominal pain localized underneath the right breast, and PTC. During examination patient states the abdominal pain has surpassed. In October pt had a PTC tube placed by IR. In November, cholangiogram was performed and showed no drainage into the small bowel. Pt has a history of dilated CBD at 1.3cm. Patient states she has had one episode of non-bloody diarrhea yesterday. + nausea gets better with nexium. Denies vomiting. PMH: chronic pancreatitis, DM, HTN, HKD, periampullary diverticulum, PTC tube. PSH: right hand, diagnostic laparoscopy for ovarian cyst, PTC tube, Cholangiogram showing obstruction around the ampulla ALL: PCN Social: no hx of ETOH to tobacco use, needs assistance for some ADLs. help from son, daughter and granddaughter Review of Systems - Review of Systems All systems: reviewed and no additional remarkable complaints except - Constitutional Constitutional: As Per HPI Past Patient History - Infectious Disease Hx of Infectious Diseases: None - Tetanus Immunizations Tetanus Immunization: Unknown - Past Medical History & Family History Past Medical History?: Yes - Past Social History Smoking Status: Never Smoked - CARDIAC Hx Cardia Arrhythmia: Yes (Flutter) Hx Hypertension: Yes Hx Pacemaker: No Hx Peripheral Edema: Yes (+2) - PULMONARY Hx Bronchitis: Yes Hx Chronic Obstructive Pulmonary Disease (COPD): Yes Hx Pneumonia: Yes (5 YRS AGO) - HEENT Hx HEENT Problems: No - RENAL Hx Chronic Kidney Disease: No - ENDOCRINE/METABOLIC Hx Endocrine Disorders: No - HEMATOLOGICAL/ONCOLOGICAL Hx Anemia: No Hx Human Immunodeficiency Virus (HIV): No - INTEGUMENTARY Hx Dermatological Problems: No - MUSCULOSKELETAL/RHEUMATOLOGICAL Hx Arthritis: Yes Hx Fractures: Yes Hx Osteoporosis: Yes - GASTROINTESTINAL Hx Pancreatitis: Yes - GENITOURINARY/GYNECOLOGICAL Hx Sexually Transmitted Disorders: No - PSYCHIATRIC Hx Anxiety: Yes Hx Depression: Yes Hx Substance Use: No - SURGICAL HISTORY Hx Carotid Endarterectomy: Yes - ANESTHESIA Hx Anesthesia: Yes Hx Anesthesia Reactions: No Hx Malignant Hyperthermia: No Meds Allergies/Adverse Reactions: Allergies Allergy/AdvReac Type Severity Reaction Status Date / Time Penicillins Allergy RASH Verified 12/04/16 11:27 Physical Exam - Constitutional Appears: Non-toxic, No Acute Distress - Head Exam Head Exam: ATRAUMATIC - Eye Exam Eye Exam: EOMI. absent: Scleral icterus - ENT Exam ENT Exam: Mucous Membranes Moist - Respiratory Exam Respiratory Exam: NORMAL BREATHING PATTERN. absent: Accessory Muscle Use, Respiratory Distress - Cardiovascular Exam Cardiovascular Exam: +S1, +S2. absent: Bradycardia, Tachycardia - GI/Abdominal Exam GI & Abdominal Exam: Normal Bowel Sounds, Soft. absent: Distended, Firm, Tenderness Additional comments: PTC tube in place. bag strapped around right leg. Bilious drainage - Extremities Exam Extremities exam: Negative for: calf tenderness - Back Exam Back exam: absent: CVA tenderness (L), CVA tenderness (R) - Neurological Exam Neurological exam: Alert, Oriented x3 - Skin Skin Exam: Normal Color, Warm Results - Vital Signs Recent Vital Signs: Last Vital Signs Temp 96 F L 12/23/16 12:33 Pulse 94 H 12/23/16 12:00 Resp 18 12/23/16 12:00 BP 105/73 12/23/16 12:00 Pulse Ox Assessment & Plan - Assessment and Plan (Free Text) Assessment: 76F s/p PTC tube placement in October, w/ RUQ and Mid-Epigastric pain w/ diarrhea, possible Gastroenteritis Plan: - IVabx/IVF - GI/DVT ppx - anti-emetic and pain control PRN - serial abdominal exams - medical management per Primary team - will follow while patient in house - further recs per Dr. Barry Duran PGY1 <Kyle Reddy - Last Filed: 12/27/16 20:24> Meds - Medications Medications: Current Medications Acetaminophen (Tylenol 325mg Tab) 650 mg PO Q6 PRN PRN Reason: Pain, moderate (4-7) Last Admin: 12/25/16 16:43 Dose: 650 mg Alprazolam (Xanax) 0.25 mg PO TID PATTI Stop: 01/02/17 13:01 Last Admin: 12/27/16 16:41 Dose: 0.25 mg Aspirin (Ecotrin) 81 mg PO DAILY [facility] Last Admin: 12/27/16 10:21 Dose: 81 mg Docusate Sodium (Colace) 100 mg PO TID PRN PRN Reason: Constipation Duloxetine HCl (Cymbalta) 60 mg PO HS [facility] Last Admin: 12/26/16 23:12 Dose: 60 mg Ergocalciferol (Drisdol 50,000 Intl Units Cap) 50,000 cap PO MO [facility] Heparin Sodium (Porcine) (Heparin) 5,000 units SC Q12 [facility] PRN Reason: Protocol Last Admin: 12/27/16 10:21 Dose: 5,000 units Levofloxacin/Dextrose (Levaquin 750mg) 750 mg in 150 mls @ 100 mls/hr IVPB DAILY [facility] Last Admin: 12/27/16 16:43 Dose: 100 mls/hr Lactated Ringer's (Lactated Ringer's) 1,000 mls @ 150 mls/hr IV .Q6H40M [facility] Stop: 12/28/16 08:31 Last Admin: 12/26/16 22:38 Dose: Not Given Vancomycin HCl 1 gm/ Sodium (Chloride) 250 mls @ 166.667 mls/hr IVPB Q12H [facility] PRN Reason: Protocol Last Admin: 12/27/16 13:21 Dose: 166.667 mls/hr Insulin Human Regular (Humulin R) 0 units SC Q6H [facility] PRN Reason: Protocol Last Admin: 12/27/16 18:33 Dose: Not Given Loratadine (Claritin) 10 mg PO DAILY [facility] Last Admin: 12/25/16 08:40 Dose: 10 mg Magnesium Oxide (Mag-Ox) 400 mg PO BID [facility] Last Admin: 12/27/16 16:45 Dose: 400 mg Ondansetron HCl (Zofran Inj) 4 mg IVP Q6 PRN PRN Reason: Nausea/Vomiting Last Admin: 12/26/16 13:24 Dose: 4 mg Oxycodone/Acetaminophen (Percocet 5/325 Mg Tab) 1 tab PO Q6 PRN PRN Reason: Pain, moderate (4-7) Stop: 12/29/16 10:53 Last Admin: 12/27/16 16:41 Dose: 1 tab Pantoprazole Sodium (Protonix Ec Tab) 40 mg PO DAILY [facility] Last Admin: 12/27/16 10:23 Dose: 40 mg Potassium Chloride (Klor-Con 10) 10 meq PO DAILY [facility] Last Admin: 12/27/16 10:22 Dose: 10 meq Sennosides (Senokot Tab) 8.6 mg PO BID PRN PRN Reason: Constipation Last Admin: 12/23/16 21:40 Dose: 8.6 mg Results - Vital Signs Recent Vital Signs: Last Vital Signs Temp 97.3 F L 12/27/16 15:50 Pulse 85 12/27/16 15:50 Resp 17 12/27/16 15:50 BP 129/78 12/27/16 15:50 Pulse Ox 94 L 12/27/16 17:57 - Labs Result Diagrams: 12/27/16 05:30 12/27/16 06:30 Labs: Laboratory Results - last 24 hr 12/26/16 12/27/16 12/27/16 21:54 05:30 05:47 WBC 7.2 RBC 3.24 L Hgb 9.4 L Hct 29.0 L MCV 89.6 MCH 29.2 MCHC 32.6 L RDW 17.4 H Plt Count 344 MPV 8.3 Neut % (Auto) 62.4 Lymph % (Auto) 23.7 [place] % (Auto) 10.4 H Eos % (Auto) 2.6 Baso % (Auto) 0.9 Neut # 4.5 Lymph # 1.7 [place] # 0.7 Eos # 0.2 Baso # 0.1 Sodium Potassium Chloride Carbon Dioxide Anion Gap BUN Creatinine Est GFR ( Amer) Est GFR (Non-Af Amer) POC Glucose (mg/dL) 112 H 110 Random Glucose Calcium Total Bilirubin AST ALT Alkaline Phosphatase Troponin I Total Protein Albumin Globulin Albumin/Globulin Ratio Lipase 12/27/16 12/27/16 12/27/16 06:30 10:45 16:04 WBC RBC Hgb Hct MCV MCH MCHC RDW Plt Count MPV Neut % (Auto) Lymph % (Auto) [place] % (Auto) Eos % (Auto) Baso % (Auto) Neut # Lymph # [place] # Eos # Baso # Sodium 142 Potassium 3.6 Chloride 106 Carbon Dioxide 29 Anion Gap 11 BUN 16 Creatinine 0.7 Est GFR ( Amer) > 60 Est GFR (Non-Af Amer) > 60 POC Glucose (mg/dL) 167 H 97 Random Glucose 96 Calcium 7.5 L Total Bilirubin 0.5 AST 72 H ALT 33 Alkaline Phosphatase 122 Troponin I 0.0850 Total Protein 6.0 L Albumin 2.4 L Globulin 3.6 Albumin/Globulin Ratio 0.7 L Lipase 1150 H Attending/Attestation - Attestation I have personally seen and examined this patient.: Yes I have fully participated in the care of the patient.: Yes I have reviewed all pertinent clinical information: Yes Notes (Text): Pt was seen and examined at bedside Agree with above note and assessment Pt with Pnuemonia and elevated cardiac enzyme with cholecystostomy tube and cholelithiasis/cholecystitis Abdominal tenderness present Labs and radiology reviewed C/w current ICU management Plan d.w pt in detail. Risk and benefit explained in detail
[2016-12-23 13:21] LABS: URINE URIC ACID CRYSTALS OCC /hpf (<OCC)
--- NOTE | 2016-12-23 14:12 | RAD ---
HISTORY: Sepsis Patient COMPARISON: 10/27/2016. FINDINGS: LUNGS: There are low lung volumes. There is bibasilar airspace disease. PLEURA: No significant pleural effusion identified, no pneumothorax apparent. CARDIOVASCULAR: Normal. OSSEOUS STRUCTURES: No significant abnormalities. VISUALIZED UPPER ABDOMEN: Normal. OTHER FINDINGS: None. IMPRESSION: Low lung volumes may be related to poor inspiratory effort. Bibasilar airspace disease may represent subsegmental atelectasis however superimposed pneumonia cannot be excluded. Follow-up to resolution is advised.
[2016-12-23] MEDS ORDERED: Lidocaine 1% Inj (20ml) ONE (14:18)
--- NOTE | 2016-12-23 14:37 | PCM.SURG1 ---
Surgeon's Initial Post Op Note - Surgeon's Notes Surgeon: Christofer Jefferson MD Manager Retention: None Type of Anesthesia: Local Pre-Operative Diagnosis: Poor venous access Operative Findings: Patent right brachial vein Post-Operative Diagnosis: Poor venous access Operation Performed: Single lumen picc placement, 37 cm. Tip is in the SVC. Specimen/Specimens Removed: None Estimated Blood Loss: EBL {In ML}: 2 Blood Products Given: N/A Drains Used: No Drains Post-Op Condition: Fair Date of Surgery/Procedure: 12/23/16 Time of Surgery/Procedure: 14:35
[2016-12-23 15:11] LABS: BASO # 0.1 K/uL (0.0-0.2); BASO % 0.5 % (0.0-2.0); EOS # 0.1 K/uL (0.0-0.7); EOS % 0.5 % (0.0-4.0); HEMATOCRIT 39.1 % (34.0-47.0); LYMPH % 9.1 % (20.0-40.0); MEAN CELL VOLUME 89.3 fl (81.0-99.0); MEAN CORPUSCULAR HEMOGLOBIN 28.8 pg (27.0-31.0); MEAN CORPUSCULAR HGB CONC 32.3 g/dL (33.0-37.0); MONO # 1.2 K/uL (0.0-0.8); MONO % 5.4 % (0.0-10.0); NEUT # 18.8 K/uL (1.8-7.0); NEUT % 84.5 % (50.0-75.0); PLATELET COUNT 442 K/uL (130-400); RED CELL DISTRIBUTION WIDTH 17.3 % (11.5-14.5); WHITE BLOOD COUNT 22.2 K/uL (4.8-10.8)
[2016-12-23 15:13] LABS: VENOUS BLOOD GAS BASE EXCESS -5.9 mmol/L (0.0-2.0); VENOUS BLOOD GAS PCO2 44 mmHg (40-60); VENOUS BLOOD PH 7.28 (7.32-7.43)
[2016-12-23 15:22] LABS: ALB/GLOB RATIO 0.7 (1.0-2.1); BILIRUBIN,TOTAL 0.7 mg/dl (0.2-1.3); CALCIUM 6.9 mg/dL (8.4-10.2); MAGNESIUM 1.2 MG/DL (1.6-2.3); PHOSPHOROUS 6.5 mg/dl (2.5-4.5); POTASSIUM 3.3 MMOL/L (3.6-5.0); TOTAL PROTEIN 6.6 G/DL (6.3-8.2)
[2016-12-23 15:33] LABS: PARTIAL THROMBOPLASTIN TIME 18.8 Seconds (25.6-37.1)
[2016-12-23 15:43] LABS: TROPONIN I 0.282 ng/mL (0.00-0.120)
[2016-12-23] MEDS ORDERED: levoFLOXacin 750 mg in D5W 150 ML BAG IVPB STA (15:46)
[2016-12-23] MEDS ORDERED: Magnesium Sulfate 2 gm/50 ml 2 GM/50 ML BAG IVPB ONE (15:52)
[2016-12-23] MEDS ORDERED: levoFLOXacin 750 mg in D5W 750 MG/150 ML BAG IVPB SCH (16:00)
--- NOTE | 2016-12-23 16:50 | CP.PCM.HP ---
History of Present Illness - History of Present Illness History of Present Illness: CC: Abdominal pain This is a 76-year-old female with a past medical history significant for chronic pancreatitis,. Ampullary diverticulum, status post PTC tube placement by interventional radiology in October 2016, type 2 diabetes mellitus, hypertension, who presented to the emergency department with the complaint of 3 days of dry cough and congestion. The patient was also complaining of pain described as sharp and epigastric and underneath the right breast. However currently the patient states that her pain has improved. Last month in November, the patient had a cholangiogram performed which showed no drainage into the small bowel at that time. The patient has a known history of dilated common bile duct of 1.3 cm. The emergency department, the patient was seen to have intermittent hypotension with a systolic ranging from 89 up to 105 systolic. The patient was also seen to have a low rectal temperature of 96 and on repeat 95.6 and 94.1. The patient was placed on a bear hugger as a result. Laboratory results are significant for white count of 22.2, neutrophil percentage of 84.5, neutrophil count of 18.8, potassium of 3.3, BUN of 92, creatinine of 2.0, GFR of 24 which is much decreased from previous, calcium of 6.9, phosphorus of 6.5, magnesium significantly decreased at 1.2, troponin elevated at 0.2820, BNP of 14 ,100, albumen at 2.7, an elevated lipase of 846. The patient's transaminases and bilirubin are within normal limits. CT scan of the abdomen and pelvis are pending. Due to poor access, the patient had a PICC line placed in the right arm successfully by surgery. Given the patient's vitals including hypotension and hypothermia along with significant leukocytosis, the patient is also diagnosed of sepsis. In addition, chest x-ray reveals bilateral atelectasis with possible bilateral lower lobe pneumonia which coincides with her cough, congestion, and leukocytosis. The patient is to be admitted for further workup and monitoring of her sepsis secondary to pneumonia along with dehydration secondary to acute on chronic pancreatitis. Patient denies chest pain, shortness of breath, fevers, chills, diarrhea, headache. Rest of ROS as below. All of the patient's and/or family's questions were answered at the bedside. Present on Admission - Present on Admission Any Indicators Present on Admission: No Review of Systems - Hematologic/Lymphatic Additional comments: GENERAL/CONSTITUTIONAL: The patient denies fever, fatigue, weakness, weight gain or weight loss. HEAD, EYES, EARS, NOSE AND THROAT: Eyes - The patient denies pain, redness, loss of vision, double or blurred vision, flashing lights or spots, dryness, Ears, nose, mouth and throat. + cough, congestion, +post nasal drip. The patient denies ringing in the ears, loss of hearing, nosebleeds, loss of sense of smell, dry sinuses, sinusitis CARDIOVASCULAR: The patient denies chest pain, chest pressure, or irregular heartbeats, RESPIRATORY: The patient admits to cough, denies coughing up blood, wheezing, or shortness of breath. GASTROINTESTINAL: The patient denies decreased appetite, nausea, vomiting, vomiting blood or coffee ground material, heartburn, regurgitation, diarrhea, constipation, gas, blood in the stools, black tarry stools. GENITOURINARY: The patient denies difficult urination, pain or burning with urination, blood in the urine, frequency, or urgency MUSCULOSKELETAL: The patient denies arm, buttock, thigh or calf cramps. No joint or muscle pain. No muscle weakness or tenderness. No joint swelling, neck pain, back pain. SKIN: The patient denies easy bruising, skin redness, skin rash, hives, sensitivity to sun exposure, tightness, nodules or bumps, hair loss, color changes in the hands or feet with cold. NEUROLOGIC: The patient denies headache, dizziness, fainting, muscle spasm, loss of consciousness, sensitivity or pain in the hands and feet or memory loss. PSYCHIATRIC: The patient denies anxiety, depression, or thoughts of suicide. ENDOCRINE: The patient denies intolerance to hot or cold temperature, flushing, fingernail changes, increased thirst, or increased salt intake HEMATOLOGIC/LYMPHATIC: The patient denies anemia, bleeding tendency or clotting tendency. ALLERGIC/IMMUNOLOGIC: The patient denies rhinitis, asthma, skin sensitivity, latex allergies or sensitivity. Past Patient History - Infectious Disease Hx of Infectious Diseases: None - Tetanus Immunizations Tetanus Immunization: Unknown - Past Medical History & Family History Past Medical History?: Yes - Past Social History Alcohol: None Drugs: Denies - CARDIAC Hx Cardia Arrhythmia: Yes (Flutter) Hx Hypertension: Yes Hx Pacemaker: No Hx Peripheral Edema: Yes (+2) - PULMONARY Hx Bronchitis: Yes Hx Chronic Obstructive Pulmonary Disease (COPD): Yes Hx Pneumonia: Yes (5 YRS AGO) - HEENT Hx HEENT Problems: No - RENAL Hx Chronic Kidney Disease: No - ENDOCRINE/METABOLIC Hx Endocrine Disorders: No - HEMATOLOGICAL/ONCOLOGICAL Hx Anemia: No Hx Human Immunodeficiency Virus (HIV): No - INTEGUMENTARY Hx Dermatological Problems: No - MUSCULOSKELETAL/RHEUMATOLOGICAL Hx Arthritis: Yes Hx Fractures: Yes Hx Osteoporosis: Yes - GASTROINTESTINAL Hx Pancreatitis: Yes - GENITOURINARY/GYNECOLOGICAL Hx Sexually Transmitted Disorders: No - PSYCHIATRIC Hx Anxiety: Yes Hx Depression: Yes - SURGICAL HISTORY Hx Carotid Endarterectomy: Yes - ANESTHESIA Hx Anesthesia: Yes Hx Anesthesia Reactions: No Hx Malignant Hyperthermia: No Meds Allergies/Adverse Reactions: Allergies Allergy/AdvReac Type Severity Reaction Status Date / Time Penicillins Allergy RASH Verified 12/04/16 11:27 Physical Exam - Additional Findings Additional findings: Physical exam: Constitutional- cooperative, awake, alert. Appears dry Head- NCAT, PERRL Eye- PERRL, normal accommodation ENT- normal exam, MMM. Neck- normal inspection, supple, no JVD Respiratory- CTAB, no wheezes, no rales, + bibasilar rhonchi Cardiovascular- RRR, +S1, +S2 no MRG GI/Abdominal- normal bowel sounds, soft, no mass, no hsm Skin- warm, dry Extremities Exam- normal capillary refill, normal inspection Neurological Exam- alert, stable gait Psych- normal mood, normal affect Results - Vital Signs Recent Vital Signs: Last Vital Signs Temp 95.6 F L 12/23/16 14:49 Pulse 65 12/23/16 14:49 Resp 16 12/23/16 14:49 BP 108/62 12/23/16 14:49 Pulse Ox 96 12/23/16 13:40 - Labs Result Diagrams: 12/23/16 15:00 12/23/16 15:00 Labs: Laboratory Results - last 24 hr 12/23/16 12/23/16 12/23/16 12:30 13:10 15:00 WBC RBC Hgb Hct MCV MCH MCHC RDW Plt Count MPV Neut % (Auto) Lymph % (Auto) [place] % (Auto) Eos % (Auto) Baso % (Auto) Neut # Lymph # [place] # Eos # Baso # PT INR APTT pO2 VBG pH VBG pCO2 VBG HCO3 VBG Total CO2 VBG O2 Sat (Calc) VBG Base Excess VBG Potassium Glucose Lactate FiO2 Sodium 136 Potassium 3.3 L Chloride 105 Carbon Dioxide 17 L Anion Gap 17 BUN 92 H Creatinine 2.0 H Est GFR ( Amer) 29 Est GFR (Non-Af Amer) 24 Random Glucose 97 Calcium 6.9 L Phosphorus 6.5 H Magnesium 1.2 L Total Bilirubin 0.7 AST 49 H D ALT 24 Alkaline Phosphatase 118 Troponin I 0.2820 H* NT-Pro-B Natriuret Pep 75067 H Total Protein 6.6 Albumin 2.7 L Globulin 3.9 Albumin/Globulin Ratio 0.7 L Lipase 846 H Venous Blood Potassium Urine Color Jocelyne Urine Clarity Cloudy Urine pH 5.0 Ur Specific [place] 1.018 Urine Protein 30 Urine Glucose (UA) Neg Urine Ketones Negative Urine Blood Negative Urine Nitrate Negative Urine Bilirubin Negative Urine Urobilinogen 0.2-1.0 Ur Leukocyte Esterase Trace Urine RBC (Auto) 3 Urine Microscopic WBC 8 H Ur Squamous Epith Cells 1 Uric Acid Crystals Occ H Urine Bacteria Rare Hyaline Casts 0-2 Urine Yeast (Budding) Mod H Influenza Typ A,B (EIA) Negative for flu a/b 12/23/16 12/23/16 12/23/16 15:00 15:00 15:06 WBC 22.2 H D RBC 4.37 Hgb 12.6 Hct 39.1 MCV 89.3 MCH 28.8 MCHC 32.3 L RDW 17.3 H Plt Count 442 H MPV 8.0 Neut % (Auto) 84.5 H Lymph % (Auto) 9.1 L [place] % (Auto) 5.4 Eos % (Auto) 0.5 Baso % (Auto) 0.5 Neut # 18.8 H Lymph # 2.0 [place] # 1.2 H Eos # 0.1 Baso # 0.1 PT 13.2 H INR 1.2 APTT 18.8 L pO2 36 VBG pH 7.28 L VBG pCO2 44 VBG HCO3 19.5 VBG Total CO2 22.1 VBG O2 Sat (Calc) 70.8 H VBG Base Excess -5.9 L VBG Potassium 4.0 Glucose 117 H Lactate 1.3 FiO2 21.0 Sodium 129.0 L Potassium Chloride 95.0 L Carbon Dioxide Anion Gap BUN Creatinine Est GFR ( Amer) Est GFR (Non-Af Amer) Random Glucose Calcium Phosphorus Magnesium Total Bilirubin AST ALT Alkaline Phosphatase Troponin I NT-Pro-B Natriuret Pep Total Protein Albumin Globulin Albumin/Globulin Ratio Lipase Venous Blood Potassium 4.0 Urine Color Urine Clarity Urine pH Ur Specific [place] Urine Protein Urine Glucose (UA) Urine Ketones Urine Blood Urine Nitrate Urine Bilirubin Urine Urobilinogen Ur Leukocyte Esterase Urine RBC (Auto) Urine Microscopic WBC Ur Squamous Epith Cells Uric Acid Crystals Urine Bacteria Hyaline Casts Urine Yeast (Budding) Influenza Typ A,B (EIA) Assessment & Plan - Assessment and Plan (Free Text) Plan: ASSESSMENT/PLAN 76 yo female with chronic pancreatitis admitted with sepsis due to acute on chronic pancreatitis, bilbasilar pneumonia, along with prerenal azotemia secondary to dehydration. 1) Sepsis due to pneumonia and pancreatitis - Admit to telemetry floor - Continue Lactated Ringer's at 150 cc/hour, also NS 1 liter bolus given in ED - Monitor vitals closely - JOSH neil for hypothermia - Patient awake/alert at this time 2) Acute on chronic pancreatitis - Continue IV fluids - GI consultation with Dr. Mariscal, called from ED - NPO except for ice chips 3) Prerenal azotemia secondary to dehydration from poor po intake/pancreatitis - BUN/Cr elevated from baseline - IV fluids as above - Recheck BUN/Cr in AM 4) Type 2 Diabetes mellitus - Accuchecks q6h with regular insulin coverage 5) Hypomagnesemia - 1.2 - Give 2 grams now - Etiology likely HCTZ and dehydration 6) Hypokalemia - 3.3 - Likely due to HCTZ - Giving lactated ringers 7) Elevated troponin, 0.2820 - Likely due to stress demand ischemia from dehydration and infection - Trend q 8 hours to r/o ACS - Nonspecific T wave abnormality on EKG 8) Depression/Anxiety - Continue Celexa, Xanax, and trazodone 9) DVT prophylaxis - Heparin SQ 10) GI prophylaxis - Esmoprazole
[2016-12-23] MEDS ORDERED: Insulin Regular 100 units/ml SC SCH (17:00)
[2016-12-23 17:03] LABS: BASOPHIL 1 % (0-2); NEUTROPHIL 79 % (42-75); TOTAL CELLS COUNTED 100
[2016-12-23 17:04] LABS: GIANT PLATELETS PRESENT; LARGE PLATELETS PRESENT
--- NOTE | 2016-12-23 18:29 | CP.PCM.CON ---
History of Present Illness - History of Present Illness History of Present Illness: 76yo F. PMHx chronic pancreatitis, ampullary duodenal diverticulum, recent PTC placment (10/2016) for recent cholecystitis, DM type 2, HTN. p/w several days of cough and congestion. Hypotensive in ED. Review of Systems - Review of Systems All systems: reviewed and no additional remarkable complaints except - Gastrointestinal Gastrointestinal: Abdominal Pain Past Patient History - Infectious Disease Hx of Infectious Diseases: None - Tetanus Immunizations Tetanus Immunization: Unknown - Past Medical History & Family History Past Medical History?: Yes - Past Social History Alcohol: None Drugs: Denies - CARDIAC Hx Cardia Arrhythmia: Yes (Flutter) Hx Hypertension: Yes Hx Pacemaker: No Hx Peripheral Edema: Yes (+2) - PULMONARY Hx Bronchitis: Yes Hx Chronic Obstructive Pulmonary Disease (COPD): Yes Hx Pneumonia: Yes (5 YRS AGO) - HEENT Hx HEENT Problems: No - RENAL Hx Chronic Kidney Disease: No - ENDOCRINE/METABOLIC Hx Endocrine Disorders: No - HEMATOLOGICAL/ONCOLOGICAL Hx Anemia: No Hx Human Immunodeficiency Virus (HIV): No - INTEGUMENTARY Hx Dermatological Problems: No - MUSCULOSKELETAL/RHEUMATOLOGICAL Hx Arthritis: Yes Hx Fractures: Yes Hx Osteoporosis: Yes - GASTROINTESTINAL Hx Pancreatitis: Yes - GENITOURINARY/GYNECOLOGICAL Hx Sexually Transmitted Disorders: No - PSYCHIATRIC Hx Anxiety: Yes Hx Depression: Yes - SURGICAL HISTORY Hx Carotid Endarterectomy: Yes - ANESTHESIA Hx Anesthesia: Yes Hx Anesthesia Reactions: No Hx Malignant Hyperthermia: No Meds Allergies/Adverse Reactions: Allergies Allergy/AdvReac Type Severity Reaction Status Date / Time Penicillins Allergy RASH Verified 12/04/16 11:27 - Medications Medications: Current Medications Aspirin (Ecotrin) 81 mg PO DAILY PATTI Docusate Sodium (Colace) 100 mg PO TID PRN PRN Reason: Constipation Duloxetine HCl (Cymbalta) 60 mg PO HS PATTI Ergocalciferol (Drisdol 50,000 Intl Units Cap) 50,000 cap PO MO PATTI Heparin Sodium (Porcine) (Heparin) 5,000 units SC Q12 PATTI PRN Reason: Protocol Lactated Ringer's (Lactated Ringer's) 1,000 mls @ 150 mls/hr IV .Q6H40M PATTI Levofloxacin/Dextrose (Levaquin 750mg) 750 mg in 150 mls @ 150 mls/hr IVPB STAT PATTI Levofloxacin/Dextrose (Levaquin 750mg) 750 mg in 150 mls @ 100 mls/hr IVPB DAILY [facility] Insulin Human Regular (Humulin R) 0 units SC Q6H PATTI PRN Reason: Protocol Loratadine (Claritin) 10 mg PO DAILY [facility] Ondansetron HCl (Zofran Inj) 4 mg IVP Q6 PRN PRN Reason: Nausea/Vomiting Pantoprazole Sodium (Protonix Ec Tab) 40 mg PO DAILY [facility] Potassium Chloride (Klor-Con 10) 10 meq PO DAILY [facility] Sennosides (Senokot Tab) 8.6 mg PO BID PRN PRN Reason: Constipation Physical Exam - Head Exam Head Exam: ATRAUMATIC, NORMAL INSPECTION, NORMOCEPHALIC - Eye Exam Eye Exam: EOMI, Normal appearance, PERRL - ENT Exam ENT Exam: Mucous Membranes Dry, Normal Exam - Respiratory Exam Respiratory Exam: Clear to Auscultation Bilateral, NORMAL BREATHING PATTERN - Cardiovascular Exam Cardiovascular Exam: REGULAR RHYTHM - GI/Abdominal Exam GI & Abdominal Exam: Normal Bowel Sounds, Soft. absent: Tenderness - Neurological Exam Neurological exam: Alert, CN II-XII Intact, Oriented x3, Reflexes Normal - Psychiatric Exam Psychiatric exam: Normal Affect Results - Vital Signs Recent Vital Signs: Last Vital Signs Temp 95.6 F L 12/23/16 14:49 Pulse 65 12/23/16 14:49 Resp 16 12/23/16 14:49 BP 108/62 12/23/16 14:49 Pulse Ox 96 12/23/16 13:40 - Labs Result Diagrams: 12/23/16 15:00 12/23/16 15:00 Labs: Laboratory Results - last 24 hr 12/23/16 12/23/16 12/23/16 12:30 13:10 15:00 WBC RBC Hgb Hct MCV MCH MCHC RDW Plt Count MPV Neut % (Auto) Lymph % (Auto) [place] % (Auto) Eos % (Auto) Baso % (Auto) Neut # Lymph # [place] # Eos # Baso # Neutrophils % (Manual) Lymphocytes % (Manual) Monocytes % (Manual) Basophils % (Manual) Platelet Estimate Large Platelets Giant Platelets Poikilocytosis (manual Anisocytosis (manual) Tear Drop Cells PT INR APTT pO2 VBG pH VBG pCO2 VBG HCO3 VBG Total CO2 VBG O2 Sat (Calc) VBG Base Excess VBG Potassium Glucose Lactate FiO2 Sodium 136 Potassium 3.3 L Chloride 105 Carbon Dioxide 17 L Anion Gap 17 BUN 92 H Creatinine 2.0 H Est GFR ( Amer) 29 Est GFR (Non-Af Amer) 24 Random Glucose 97 Calcium 6.9 L Phosphorus 6.5 H Magnesium 1.2 L Total Bilirubin 0.7 AST 49 H D ALT 24 Alkaline Phosphatase 118 Troponin I 0.2820 H* NT-Pro-B Natriuret Pep 61786 H Total Protein 6.6 Albumin 2.7 L Globulin 3.9 Albumin/Globulin Ratio 0.7 L Lipase 846 H Venous Blood Potassium Urine Color Jocelyne Urine Clarity Cloudy Urine pH 5.0 Ur Specific [place] 1.018 Urine Protein 30 Urine Glucose (UA) Neg Urine Ketones Negative Urine Blood Negative Urine Nitrate Negative Urine Bilirubin Negative Urine Urobilinogen 0.2-1.0 Ur Leukocyte Esterase Trace Urine RBC (Auto) 3 Urine Microscopic WBC 8 H Ur Squamous Epith Cells 1 Uric Acid Crystals Occ H Urine Bacteria Rare Hyaline Casts 0-2 Urine Yeast (Budding) Mod H Influenza Typ A,B (EIA) Negative for flu a/b 12/23/16 12/23/16 12/23/16 15:00 15:00 15:06 WBC 22.2 H D RBC 4.37 Hgb 12.6 Hct 39.1 MCV 89.3 MCH 28.8 MCHC 32.3 L RDW 17.3 H Plt Count 442 H MPV 8.0 Neut % (Auto) 84.5 H Lymph % (Auto) 9.1 L [place] % (Auto) 5.4 Eos % (Auto) 0.5 Baso % (Auto) 0.5 Neut # 18.8 H Lymph # 2.0 [place] # 1.2 H Eos # 0.1 Baso # 0.1 Neutrophils % (Manual) 79 H Lymphocytes % (Manual) 14 L Monocytes % (Manual) 6 Basophils % (Manual) 1 Platelet Estimate Slightly increased H Large Platelets Present Giant Platelets Present Poikilocytosis (manual Slight Anisocytosis (manual) Moderate Tear Drop Cells Slight PT 13.2 H INR 1.2 APTT 18.8 L pO2 36 VBG pH 7.28 L VBG pCO2 44 VBG HCO3 19.5 VBG Total CO2 22.1 VBG O2 Sat (Calc) 70.8 H VBG Base Excess -5.9 L VBG Potassium 4.0 Glucose 117 H Lactate 1.3 FiO2 21.0 Sodium 129.0 L Potassium Chloride 95.0 L Carbon Dioxide Anion Gap BUN Creatinine Est GFR ( Amer) Est GFR (Non-Af Amer) Random Glucose Calcium Phosphorus Magnesium Total Bilirubin AST ALT Alkaline Phosphatase Troponin I NT-Pro-B Natriuret Pep Total Protein Albumin Globulin Albumin/Globulin Ratio Lipase Venous Blood Potassium 4.0 Urine Color Urine Clarity Urine pH Ur Specific [place] Urine Protein Urine Glucose (UA) Urine Ketones Urine Blood Urine Nitrate Urine Bilirubin Urine Urobilinogen Ur Leukocyte Esterase Urine RBC (Auto) Urine Microscopic WBC Ur Squamous Epith Cells Uric Acid Crystals Urine Bacteria Hyaline Casts Urine Yeast (Budding) Influenza Typ A,B (EIA) Assessment & Plan (1) Sepsis Assessment and Plan: 76yo F. PMHx chronic pancreatitis, ampullary duodenal diverticulum, recent PTC placment (10/2016) for recent cholecystitis, DM type 2, HTN. p/w several days of cough and congestion. Hypotensive in ED. Neuro: alert and oriented x 3. Holding Trazodone (sedating) and continue Cymbalta. Pulm: cough and congestion, possible underlying pneumonia, CXR shows minimal atelectasis. Duonebs, abx. CV: hypotensive, but currently asymptomatic. aggressive fluid resuscitation, pressors if no response. Follow troponins, probable type 2 strain with sepsis. Will observe for possible NSTEMI. Elevated BNP, no radiographic evidence of pulmonary edema. Echo (09/2016) shows moderate MR, no sys/paula heart failure. Hem: leucocytosis from sepsis. Continue ASA. Renal: acute renal failure, will monitor, probable pre-renal. LR@150. Holding home diuretics. Endo: DM type 2, RISS for coverage GI: NPO, holding dicyclomine (anti-cholinergic). ID: [id number] sepsis from possible pneumonia or other etiology, continue Levaquin. DVT proph - heparin sq GI proph - not currently indicated mares for strict I/O's during acute illness Code status - full code Critical Care Time spent 35 minutes Multi-disciplinary rounds were performed with house staff, nursing, speech therapy, respiratory therapy, pharmacy and nutrition with integrated input from the primary team/attending and other consulting services. The documented time is cumulative and includes review of patient data/exams/labs/chart review and examination of the patient on rounds and throughout the day; time is exclusive of any procedures or teaching time. Status: Acute
[2016-12-23] MEDS ORDERED: Magnesium Sulfate 2 gm/50 ml 2 GM/50 ML BAG ONE (18:32)
[2016-12-23] MEDS: Lactated Ringer's 1,000 ML IV SCH ×2 (18:34→22:55)
[2016-12-23] MEDS ORDERED: Lactated Ringer's 1,000 ML IV SCH (21:45)
[2016-12-24 05:40] LABS: HEMATOCRIT 31.4 % (34.0-47.0); MEAN CELL VOLUME 88.3 fl (81.0-99.0); MEAN CORPUSCULAR HEMOGLOBIN 28.8 pg (27.0-31.0); MEAN CORPUSCULAR HGB CONC 32.7 g/dL (33.0-37.0); RED CELL DISTRIBUTION WIDTH 17.4 % (11.5-14.5); WHITE BLOOD COUNT 15.8 K/uL (4.8-10.8)
[2016-12-24] MEDS: Lactated Ringer's 1,000 ML IV SCH ×3 (05:58→19:00)
[2016-12-24 06:27] LABS: ALB/GLOB RATIO 0.7 (1.0-2.1); BILIRUBIN,TOTAL 0.8 mg/dl (0.2-1.3); CALCIUM 7.9 mg/dL (8.4-10.2); POTASSIUM 3.7 MMOL/L (3.6-5.0); TOTAL PROTEIN 6.8 G/DL (6.3-8.2)
[2016-12-24] MEDS: Insulin Regular 100 units/ml SC SCH ×3 (07:30→18:54)
[2016-12-24 07:38] LABS: TROPONIN I 0.341 ng/mL (0.00-0.120)
[2016-12-24] MEDS ORDERED: Sodium Chloride 0.9% 1,000 ML IV SCH (09:30)
[2016-12-24] MEDS: Pantoprazole 40 mg EC Tab PO SCH (09:46)
[2016-12-24] MEDS: Potassium Chloride 10 mEq ER Tab PO SCH (10:07)
[2016-12-24] MEDS: levoFLOXacin 750 mg in D5W 750 MG/150 ML BAG IVPB SCH (10:37)
--- NOTE | 2016-12-24 10:46 | VASCULAR ---
PROCEDURE: Date of procedure: 12/23/2016 Procedure: 1. Placement of a right arm PICC with ultrasound and fluoroscopic guidance, CPT 89199 2. PICC tip confirmation with spot radiograph and is in the superior vena cava Medications: 1 percent lidocaine Total Fluoro time: 9.3 seconds Radiation: 0.6 MGy EBL: 2 cc HISTORY: Poor venous access TECHNIQUE: Following informed consent and procedure time-out, the patient was placed supine on the interventional table and the right arm prepped and draped in the usual sterile fashion. Ultrasound showed a patent and compressible right basilic vein. After the skin was anesthetized with lidocaine, the basilic vein was accessed with micro micropuncture technique using ultrasound guidance. A guidewire was then advanced under fluoroscopic guidance into the superior vena cava. An image documenting ultrasound guidance for vascular access was permanently saved. The length of the single-lumen 4 [place] PICC was trimmed to 37 centimeters and advanced through a peel-away sheath. The PICC was position with tip of PICC confirm a spot radiograph the superior vena cava. The PICC was secured to the patient's skin. The PICC was flushed. A biopatch and sterile dressing was applied. IMPRESSION: Placement of a single-lumen 4 [place] PICC trimmed to 37 centimeters via right basilic vein. The tip of the PICC is confirmed with spot radiograph and is in the superior vena cava.
--- NOTE | 2016-12-24 11:30 | CP.PCM.PN ---
<Maria EIsabelle - Last Filed: 12/24/16 11:23> Subjective - Date & Time of Evaluation Date of Evaluation: 12/24/16 Time of Evaluation: 10:00 - Subjective Subjective: General Surgery Dr. Reddy Pt S&E @bedside. Pt hypotensive overnight. Pt receiving NE; currently undergoing fluid challenge. Pt reports general malaise. denies abd pain, N/V. Dr. Mariscal at bedside during exam; discussed idea of repeat cholangiogram and possible ERCP in the future, once pneumonia and hypotension resolves. Objective - Vital Signs/Intake and Output Vital Signs (last 24 hours): Temp Pulse Resp BP Pulse Ox 98.2 F 79 14 105/61 100 12/24/16 08:00 12/24/16 10:00 12/24/16 10:00 12/24/16 10:00 12/24/16 10:00 Intake and Output: 12/24/16 12/24/16 06:59 18:59 Intake Total 2550 Output Total 850 Balance 1700 - Medications Medications: Current Medications Aspirin (Ecotrin) 81 mg PO DAILY [facility] Last Admin: 12/24/16 09:45 Dose: 81 mg Docusate Sodium (Colace) 100 mg PO TID PRN PRN Reason: Constipation Duloxetine HCl (Cymbalta) 60 mg PO HS [facility] Last Admin: 12/23/16 21:40 Dose: 60 mg Ergocalciferol (Drisdol 50,000 Intl Units Cap) 50,000 cap PO MO PATTI Heparin Sodium (Porcine) (Heparin) 5,000 units SC Q12 PATTI PRN Reason: Protocol Last Admin: 12/24/16 09:44 Dose: 5,000 units Lactated Ringer's (Lactated Ringer's) 1,000 mls @ 150 mls/hr IV .Q6H40M [facility] Last Admin: 12/24/16 05:58 Dose: 150 mls/hr Levofloxacin/Dextrose (Levaquin 750mg) 750 mg in 150 mls @ 150 mls/hr IVPB STAT PATTI Levofloxacin/Dextrose (Levaquin 750mg) 750 mg in 150 mls @ 100 mls/hr IVPB DAILY [facility] Last Admin: 12/24/16 10:37 Dose: 100 mls/hr Norepinephrine Bitartrate 4 mg (/ Dextrose) 254 mls @ 9.52 mls/hr IV .Q24H PATTI ; 2.5 MCG/MIN PRN Reason: Protocol Insulin Human Regular (Humulin R) 0 units SC Q6H PATTI PRN Reason: Protocol Last Admin: 12/24/16 07:30 Dose: Not Given Loratadine (Claritin) 10 mg PO DAILY [facility] Last Admin: 12/24/16 09:45 Dose: 10 mg Ondansetron HCl (Zofran Inj) 4 mg IVP Q6 PRN PRN Reason: Nausea/Vomiting Pantoprazole Sodium (Protonix Ec Tab) 40 mg PO DAILY [facility] Last Admin: 12/24/16 09:46 Dose: 40 mg Potassium Chloride (Klor-Con 10) 10 meq PO DAILY [facility] Last Admin: 12/24/16 10:07 Dose: 10 meq Sennosides (Senokot Tab) 8.6 mg PO BID PRN PRN Reason: Constipation Last Admin: 12/23/16 21:40 Dose: 8.6 mg - Labs Labs: 12/24/16 04:00 12/24/16 06:10 PT 13.2 Seconds (9.8-13.1) H 12/23/16 15:00 INR 1.2 (0.9-1.2) 12/23/16 15:00 APTT 18.8 Seconds (25.6-37.1) L 12/23/16 15:00 - Constitutional Appears: Toxic, No Acute Distress - Head Exam Head Exam: NORMAL INSPECTION - Eye Exam Eye Exam: Normal appearance - ENT Exam ENT Exam: Mucous Membranes Moist - Respiratory Exam Respiratory Exam: NORMAL BREATHING PATTERN. absent: Accessory Muscle Use, Respiratory Distress - Cardiovascular Exam Cardiovascular Exam: absent: Bradycardia, Tachycardia - GI/Abdominal Exam GI & Abdominal Exam: Soft. absent: Distended, Guarding, Tenderness, Rebound Additional comments: josue tube in place draining green bile - Neurological Exam Neurological Exam: Alert, Awake, Oriented x3 - Psychiatric Exam Psychiatric exam: Normal Affect, Normal Mood - Skin Skin Exam: Dry, Intact, Normal Color, Warm Assessment and Plan - Assessment and Plan (Free Text) Assessment: 76 y/o F admitted for pneumonia w/ josue tube placed by IR on last admission - cont medical management for pneumonia - recommend repeat cholangiogram via josue tube once pt stable - possible ERCP pending findings above - no planned surgical intervention Pt discussed w/ Dr. Barry Walton Maria E DO PGY2 <Kyle Reddy B - Last Filed: 12/27/16 20:26> Objective - Vital Signs/Intake and Output Vital Signs (last 24 hours): Temp Pulse Resp BP Pulse Ox 97.3 F L 85 17 129/78 94 L 12/27/16 15:50 12/27/16 15:50 12/27/16 15:50 12/27/16 15:50 12/27/16 17:57 Intake and Output: 12/27/16 12/28/16 18:59 06:59 Intake Total 1300 Output Total 100 Balance 1200 - Medications Medications: Current Medications Acetaminophen (Tylenol 325mg Tab) 650 mg PO Q6 PRN PRN Reason: Pain, moderate (4-7) Last Admin: 12/25/16 16:43 Dose: 650 mg Alprazolam (Xanax) 0.25 mg PO TID [facility] Stop: 01/02/17 13:01 Last Admin: 12/27/16 16:41 Dose: 0.25 mg Aspirin (Ecotrin) 81 mg PO DAILY [facility] Last Admin: 12/27/16 10:21 Dose: 81 mg Docusate Sodium (Colace) 100 mg PO TID PRN PRN Reason: Constipation Duloxetine HCl (Cymbalta) 60 mg PO HS [facility] Last Admin: 12/26/16 23:12 Dose: 60 mg Ergocalciferol (Drisdol 50,000 Intl Units Cap) 50,000 cap PO MO PATTI Heparin Sodium (Porcine) (Heparin) 5,000 units SC Q12 PATTI PRN Reason: Protocol Last Admin: 12/27/16 10:21 Dose: 5,000 units Levofloxacin/Dextrose (Levaquin 750mg) 750 mg in 150 mls @ 100 mls/hr IVPB DAILY [facility] Last Admin: 12/27/16 16:43 Dose: 100 mls/hr Lactated Ringer's (Lactated Ringer's) 1,000 mls @ 150 mls/hr IV .Q6H40M [facility] Stop: 12/28/16 08:31 Last Admin: 12/26/16 22:38 Dose: Not Given Vancomycin HCl 1 gm/ Sodium (Chloride) 250 mls @ 166.667 mls/hr IVPB Q12H PATTI PRN Reason: Protocol Last Admin: 12/27/16 13:21 Dose: 166.667 mls/hr Insulin Human Regular (Humulin R) 0 units SC Q6H PATTI PRN Reason: Protocol Last Admin: 12/27/16 18:33 Dose: Not Given Loratadine (Claritin) 10 mg PO DAILY [facility] Last Admin: 12/25/16 08:40 Dose: 10 mg Magnesium Oxide (Mag-Ox) 400 mg PO BID [facility] Last Admin: 12/27/16 16:45 Dose: 400 mg Ondansetron HCl (Zofran Inj) 4 mg IVP Q6 PRN PRN Reason: Nausea/Vomiting Last Admin: 12/26/16 13:24 Dose: 4 mg Oxycodone/Acetaminophen (Percocet 5/325 Mg Tab) 1 tab PO Q6 PRN PRN Reason: Pain, moderate (4-7) Stop: 12/29/16 10:53 Last Admin: 12/27/16 16:41 Dose: 1 tab Pantoprazole Sodium (Protonix Ec Tab) 40 mg PO DAILY [facility] Last Admin: 12/27/16 10:23 Dose: 40 mg Potassium Chloride (Klor-Con 10) 10 meq PO DAILY [facility] Last Admin: 12/27/16 10:22 Dose: 10 meq Sennosides (Senokot Tab) 8.6 mg PO BID PRN PRN Reason: Constipation Last Admin: 12/23/16 21:40 Dose: 8.6 mg - Labs Labs: 12/27/16 05:30 12/27/16 06:30 PT 13.2 Seconds (9.8-13.1) H 12/23/16 15:00 INR 1.2 (0.9-1.2) 12/23/16 15:00 APTT 18.8 Seconds (25.6-37.1) L 12/23/16 15:00 Attending/Attestation - Attestation I have personally seen and examined this patient.: Yes I have fully participated in the care of the patient.: Yes I have reviewed all pertinent clinical information, including history, physical exam and plan: Yes Notes (Text): Pt was seen and examined at bedside Agree with above note and assessment IR consult CT scan of A/P C.w current mx Plan d.w pt in detail.
--- NOTE | 2016-12-24 12:34 | PQF GENQUE ---
Patient has Right sided dime sized stage II pressure ulcer on the right side in between buttocks, present on admission Dr. Sinclair, Please specify location of pressure ulcer: if in agreement Body site(s) involved Laterality (bilateral, left, right) Other (please specify) Clinically unable to determine Unknown 2. Please specify POA status of each pressure ulcer: Not present on admission Present on admission Other (please specify) Clinically unable to determine Unknown 3. Please specify stage of each pressure ulcer (National Pressure Ulcer Advisory Panel definitions): Stage I: Intact skin with non-blanchable redness of a localized area Stage II: Partial thickness skin loss involving dermis with a shallow open ulcer or an open serum-filled blister Stage III: Full thickness skin loss involving damage or necrosis of subcutaneous tissue Stage IV: Full thickness skin loss with exposed bone, tendon or muscle Unstageable: Full thickness tissue loss in which the base of the of ulcer is covered by slough and/or eschar in the wound bed Deep tissue Injury (DTI):Purple or maroon localized area of intact skin due to damage of underlying soft tissue from pressure and/or shear Other (please specify) Clinically unable to determine Unknown 4. If ulcer is not due to pressure, please specify other cause of ulcer (e.g., diabetes, PVD, varicose veins) OR: Disagree Nursing:Admisison Assessment Information: POA: Pressure Ulcer: Yes Nursing Assessment Physical :Buttock: skin tear: area is reddened , non blanchable with a dime size skin tear on the rt, side and in between buttocks Physician order pending: Nursing referral for Wound Care: reason for referral: sacrum inner buttocks area, tears This form is a permanent part of the medical record Clarification of your documentation is requested to better reflect the severity of illness and intensity of treatment of your patient. Indicators present [] Specify: [] [] Specify: [] [] Specify: [] [] Specify: [] Location in the medical record that reflects the above clinical findings: [] Treatment Provided: [] PHYSICIAN'S RESPONSE Based on your medical judgment of the clinical indicators outlined above please clarify the following: [] Practitioner response [] If unable to determine, please check the box, sign and date. Present On Admission (POA) Indicator: [] Present at the time of admission [] Not present at the time of admission [] Clinically Undetermined In responding to this query, please exercise your independent professional judgment. The fact that a question is asked does not imply that any particular answer is desired or expected. Thank you for your clarification on this documentation. If you have any questions please call. * Thank you, Yohana Willard RN ext. #[phone] MTDD
--- NOTE | 2016-12-24 13:44 | CP.PCM.PN ---
Subjective - Date & Time of Evaluation Date of Evaluation: 12/24/16 Time of Evaluation: 12:00 - Subjective Subjective: Patient seen and examined. She is complaining of thirst earlier- was started on heart healthy diet as per life skills trainer after surgery team came to see the patient. No surgical intervention planned for now. Blood pressure greatly improved with IV hydration. Patient complaining of general malaise and weakness. Patient for possible cholangiogram and possible ERCP in the future once pneumonia resolves. Patient is hemodynamically stable at this time. Objective - Vital Signs/Intake and Output Vital Signs (last 24 hours): Temp Pulse Resp BP Pulse Ox 97.3 F L 78 16 111/63 100 12/24/16 12:00 12/24/16 13:00 12/24/16 13:00 12/24/16 13:00 12/24/16 13:00 Intake and Output: 12/24/16 12/24/16 06:59 18:59 Intake Total 2550 1861 Output Total 850 Balance 1700 1861 - Medications Medications: Current Medications Aspirin (Ecotrin) 81 mg PO DAILY [facility] Last Admin: 12/24/16 09:45 Dose: 81 mg Docusate Sodium (Colace) 100 mg PO TID PRN PRN Reason: Constipation Duloxetine HCl (Cymbalta) 60 mg PO HS [facility] Last Admin: 12/23/16 21:40 Dose: 60 mg Ergocalciferol (Drisdol 50,000 Intl Units Cap) 50,000 cap PO MO PATTI Heparin Sodium (Porcine) (Heparin) 5,000 units SC Q12 PATTI PRN Reason: Protocol Last Admin: 12/24/16 09:44 Dose: 5,000 units Lactated Ringer's (Lactated Ringer's) 1,000 mls @ 150 mls/hr IV .Q6H40M [facility] Last Admin: 12/24/16 05:58 Dose: 150 mls/hr Levofloxacin/Dextrose (Levaquin 750mg) 750 mg in 150 mls @ 150 mls/hr IVPB STAT PATTI Levofloxacin/Dextrose (Levaquin 750mg) 750 mg in 150 mls @ 100 mls/hr IVPB DAILY [facility] Last Admin: 12/24/16 10:37 Dose: 100 mls/hr Norepinephrine Bitartrate 4 mg (/ Dextrose) 254 mls @ 9.52 mls/hr IV .Q24H PATTI ; 2.5 MCG/MIN PRN Reason: Protocol Last Admin: 12/24/16 07:00 Dose: 5 mcg/min, 19.05 mls/hr Insulin Human Regular (Humulin R) 0 units SC Q6H PATTI PRN Reason: Protocol Last Admin: 12/24/16 07:30 Dose: Not Given Loratadine (Claritin) 10 mg PO DAILY [facility] Last Admin: 12/24/16 09:45 Dose: 10 mg Ondansetron HCl (Zofran Inj) 4 mg IVP Q6 PRN PRN Reason: Nausea/Vomiting Pantoprazole Sodium (Protonix Ec Tab) 40 mg PO DAILY [facility] Last Admin: 12/24/16 09:46 Dose: 40 mg Potassium Chloride (Klor-Con 10) 10 meq PO DAILY [facility] Last Admin: 12/24/16 10:07 Dose: 10 meq Sennosides (Senokot Tab) 8.6 mg PO BID PRN PRN Reason: Constipation Last Admin: 12/23/16 21:40 Dose: 8.6 mg - Labs Labs: 12/24/16 04:00 12/24/16 06:10 PT 13.2 Seconds (9.8-13.1) H 12/23/16 15:00 INR 1.2 (0.9-1.2) 12/23/16 15:00 APTT 18.8 Seconds (25.6-37.1) L 12/23/16 15:00 - Additional Findings Additional findings: Physical exam: Constitutional- cooperative, awake, alert. Appears dry Head- NCAT, PERRL Eye- PERRL, normal accommodation ENT- normal exam, MMM. Neck- normal inspection, supple, no JVD Respiratory- CTAB, no wheezes, no rales, + bibasilar rhonchi Cardiovascular- RRR, +S1, +S2 no MRG GI/Abdominal- normal bowel sounds, soft, no mass, no hsm Skin- warm, dry Extremities Exam- normal capillary refill, normal inspection Neurological Exam- alert, stable gait Psych- normal mood, normal affect Assessment and Plan - Assessment and Plan (Free Text) Plan: ASSESSMENT/PLAN 76 yo female with chronic pancreatitis admitted with sepsis due to acute on chronic pancreatitis, bilbasilar pneumonia, along with prerenal azotemia secondary to dehydration. 1) Sepsis due to pneumonia and pancreatitis- improving - Pickling Operator consultation, Dr. Sanchez - Continue management in ICU at this time - Continue Lactated Ringer's at 150 cc/hour - Monitor vitals closely- Patient is normothermic, hypotension resolved - Patient awake/alert at this time 2) Acute on chronic pancreatitis - Continue IV fluids - GI consultation with Dr. Mariscal, called from ED- cholangiogram/ERCP planned when patient's pneumonia improved. - Heart healthy diet - No epigastric pain this morning 3) Prerenal azotemia secondary to dehydration from poor po intake/pancreatitis - BUN/Cr elevated from baseline - IV fluids as above - GFR slightly improved but still elevated; 29 -> 31 today - Recheck BUN/Cr in AM 4) Type 2 Diabetes mellitus - Accuchecks q6h with regular insulin coverage 5) Hypomagnesemia - 1.2 yesterday - Recheck tomorrow AM along with other lytes - Etiology likely HCTZ and dehydration 6) Hypokalemia- resolved - 3.3->3.7 today - Likely due to HCTZ - Giving lactated ringers 7) Elevated troponin, 0.2820--> 0.3590 --> 0.3410 - Likely due to type 2 stress demand ischemia from dehydration and infection - Nonspecific T wave abnormality on EKG - no further workup at this time 8) Depression/Anxiety - Hold trazodone, benzos due to their sedating/hypotensive effect 9) DVT prophylaxis - Heparin SQ 10) GI prophylaxis - Esmoprazole
--- NOTE | 2016-12-24 17:19 | CP.CCUPN ---
CCU Subjective - Physician Review Subjective (Free Text): Awake and alert, denies any new discomfort, nor fevers / chills/ sweats. Has remained on Levophed at 5 mcg/min, no appreciable BP response to additional fluid challenge with 1000ml NSS. LR remains at 150ml/hr. She denies any CP or SOB, PTC catheter remains intact. Other vitals and I/O's reviewed. No fever spikes. Urine output approx. 600ml last 12 hrs overnight. ROS: No other pertinent negs or positives on 10+ system review. PMSFH: All Nursing and physician documentation reviewed to date; no new pertinent info noted relevant to current medical problems. MAJOR PROBLEMS: 1. Further mgmt. and investigations via existing and intact PTC tube as per Surgery , IR and GI. No surgical interventions. No procedure anticipated for today, and patient c/o extreme hunger and asking of food. Will feed PO and watch for any new symptomology. 2. Wean Vasopressors as BP tolerates. Check serial Lactates 3. Mild increase in Trops noted, in the presence of mild renal insufficiency; no reports of any new symptomology, EKG unremarkable; will discuss with PMD Hospitalist team if Cardio eval necessary. 4. Patient has requested no further aggressive interventions nor any resuscitation including ACLS and intubation. She is aware of the implications of these requests. Will place orders for DNR and DNI. CCU Objective - Vital Signs / Intake & Output Vital Signs (Last 4 hours): Vital Signs Temp Pulse Resp BP Pulse Ox 12/24/16 17:00 84 18 98/55 L 100 12/24/16 16:00 97.7 F 83 15 97/56 L 100 12/24/16 15:00 87 19 97/56 L 100 12/24/16 14:00 85 12 132/77 100 Intake and Output (Last 8hrs): Intake & Output 12/24/16 12/24/16 12/24/16 06:59 14:59 22:59 Intake Total 1300 2302 337 Output Total 750 Balance 550 2302 337 Intake: IV 1300 1152 337 Intake, Piggyback 1150 Output: Drainage 150 Right Abdomen 150 Urine 600 Urine, Voided 600 Other: # Bowel Movements 1 1 - Physical Exam Head: Positive for: Normocephalic Pupils: Positive for: PERRL Extroacular Muscles: Positive for: EOMI Conjunctiva: Positive for: Normal. Negative for: Icteric Mouth: Positive for: Moist Mucous Membranes Neck: Negative for: JVD Respiratory/Chest: Positive for: Clear to Auscultation, Decreased Breath Sounds. Negative for: Accessory Muscle Use, Wheezes Cardiovascular: Positive for: Regular Rate and Rhythm, Tachycardic. Negative for: Murmurs, Rub Abdomen: Positive for: Normal Bowel Sounds. Negative for: Tenderness, Distention, Mass/Organomegaly Lower Extremity: Positive for: NORMAL PULSES. Negative for: CALF TENDERNESS, Cyanosis Neurological: Positive for: GCS=15, Speech Normal Skin: Positive for: Warm, Dry. Negative for: Rashes Psychiatric: Positive for: Alert, Oriented x 3, Normal Insight, Normal Concentration - Medications Active Medications: Active Medications Generic Name Dose Route Start Last Admin Trade Name Freq PRN Reason Stop Dose Admin Aspirin 81 mg 12/24/16 09:00 12/24/16 09:45 Ecotrin PO 81 mg DAILY PATTI Administration Docusate Sodium 100 mg 12/23/16 16:09 Colace PO TID PRN Constipation Duloxetine HCl 60 mg 12/23/16 22:00 12/23/16 21:40 Cymbalta PO 60 mg HS PATTI Administration Ergocalciferol 50,000 cap 12/29/16 16:09 Drisdol 50,000 Intl Units Cap PO MO PATTI Heparin Sodium (Porcine) 5,000 units 12/23/16 21:00 12/24/16 09:44 Heparin SC 5,000 units Q12 PATTI Administration Protocol Lactated Ringer's 1,000 mls @ 150 mls/hr 12/23/16 16:00 12/24/16 17:11 Lactated Ringer's IV 150 mls/hr .Q6H40M PATTI Administration Levofloxacin/Dextrose 750 mg in 150 mls @ 150 mls/hr 12/23/16 16:00 Levaquin 750mg IVPB STAT PATTI Levofloxacin/Dextrose 750 mg in 150 mls @ 100 mls/hr 12/24/16 09:00 12/24/16 10:37 Levaquin 750mg IVPB 100 mls/hr DAILY [facility] Administration Norepinephrine Bitartrate 4 mg 254 mls @ 9.52 mls/hr 12/24/16 07:00 12/24/16 14:00 / Dextrose IV 2.5 mcg/min .Q24H PATTI 9.52 mls/hr Protocol Titration 2.5 MCG/MIN Insulin Human Regular 0 units 12/23/16 18:30 12/24/16 11:30 Humulin R SC Not Given Q6H PATTI Protocol Loratadine 10 mg 12/24/16 09:00 12/24/16 09:45 Claritin PO 10 mg DAILY [facility] Administration Ondansetron HCl 4 mg 12/23/16 16:05 Zofran Inj IVP Q6 PRN Nausea/Vomiting Pantoprazole Sodium 40 mg 12/24/16 09:00 12/24/16 09:46 Protonix Ec Tab PO 40 mg DAILY [facility] Administration Potassium Chloride 10 meq 12/24/16 09:00 12/24/16 10:07 Klor-Con 10 PO 10 meq DAILY [facility] Administration Sennosides 8.6 mg 12/23/16 16:09 12/23/16 21:40 Senokot Tab PO 8.6 mg BID PRN Administration Constipation - Patient Studies Lab Studies: Microbiology Studies 12/23/16 15:00 Blood Culture - Preliminary Blood NO GROWTH AFTER 24 HOURS 12/23/16 15:30 Blood Culture - Preliminary Blood NO GROWTH AFTER 24 HOURS 12/23/16 13:10 Urine Culture - Final Urine No Growth (<1,000 CFU/ML) Lab Studies 12/24/16 12/24/16 12/24/16 Range/Units 16:59 12:55 06:10 WBC (4.8-10.8) K/uL RBC (3.80-5.20) Mil/uL Hgb (12.0-16.0) g/dL Hct (34.0-47.0) % MCV (81.0-99.0) fl MCH (27.0-31.0) pg MCHC (33.0-37.0) g/dL RDW (11.5-14.5) % Plt Count (130-400) K/uL Sodium 136 (132-148) mmol/l Potassium 3.7 (3.6-5.0) MMOL/L Chloride 100 (98-107) mmol/L Carbon Dioxide 21 L (22-30) mmol/L Anion Gap 19 (10-20) BUN 98 H (7-17) mg/dl Creatinine 1.9 H (0.7-1.2) mg/dL Est GFR ( Amer) 31 Est GFR (Non-Af Amer) 26 POC Glucose (mg/dL) 105 114 H (65-110) mg/dL Random Glucose 95 (65-105) mg/dL Calcium 7.9 L (8.4-10.2) mg/dL Total Bilirubin 0.8 (0.2-1.3) mg/dl AST 72 H D (14-36) U/L ALT 25 (9-52) U/L Alkaline Phosphatase 118 (38-126) U/L Troponin I 0.3410 H* (0.00-0.120) ng/mL Total Protein 6.8 (6.3-8.2) G/DL Albumin 2.8 L (3.5-5.0) g/dL Globulin 3.9 (2.2-3.9) gm/dL Albumin/Globulin Ratio 0.7 L (1.0-2.1) 12/24/16 12/24/16 12/24/16 Range/Units 05:32 04:00 00:05 WBC 15.8 H (4.8-10.8) K/uL RBC 3.56 L (3.80-5.20) Mil/uL Hgb 10.3 L D (12.0-16.0) g/dL Hct 31.4 L (34.0-47.0) % MCV 88.3 (81.0-99.0) fl MCH 28.8 (27.0-31.0) pg MCHC 32.7 L (33.0-37.0) g/dL RDW 17.4 H (11.5-14.5) % Plt Count 470 H (130-400) K/uL Sodium (132-148) mmol/l Potassium (3.6-5.0) MMOL/L Chloride (98-107) mmol/L Carbon Dioxide (22-30) mmol/L Anion Gap (10-20) BUN (7-17) mg/dl Creatinine (0.7-1.2) mg/dL Est GFR ( Amer) Est GFR (Non-Af Amer) POC Glucose (mg/dL) 84 (65-110) mg/dL Random Glucose (65-105) mg/dL Calcium (8.4-10.2) mg/dL Total Bilirubin (0.2-1.3) mg/dl AST (14-36) U/L ALT (9-52) U/L Alkaline Phosphatase (38-126) U/L Troponin I 0.3590 H* (0.00-0.120) ng/mL Total Protein (6.3-8.2) G/DL Albumin (3.5-5.0) g/dL Globulin (2.2-3.9) gm/dL Albumin/Globulin Ratio (1.0-2.1) 12/23/16 Range/Units 23:00 WBC (4.8-10.8) K/uL RBC (3.80-5.20) Mil/uL Hgb (12.0-16.0) g/dL Hct (34.0-47.0) % MCV (81.0-99.0) fl MCH (27.0-31.0) pg MCHC (33.0-37.0) g/dL RDW (11.5-14.5) % Plt Count (130-400) K/uL Sodium (132-148) mmol/l Potassium (3.6-5.0) MMOL/L Chloride (98-107) mmol/L Carbon Dioxide (22-30) mmol/L Anion Gap (10-20) BUN (7-17) mg/dl Creatinine (0.7-1.2) mg/dL Est GFR ( Amer) Est GFR (Non-Af Amer) POC Glucose (mg/dL) 114 H (65-110) mg/dL Random Glucose (65-105) mg/dL Calcium (8.4-10.2) mg/dL Total Bilirubin (0.2-1.3) mg/dl AST (14-36) U/L ALT (9-52) U/L Alkaline Phosphatase (38-126) U/L Troponin I (0.00-0.120) ng/mL Total Protein (6.3-8.2) G/DL Albumin (3.5-5.0) g/dL Globulin (2.2-3.9) gm/dL Albumin/Globulin Ratio (1.0-2.1) Laboratory Results - last 24 hr 12/23/16 12/24/16 12/24/16 23:00 00:05 04:00 WBC 15.8 H RBC 3.56 L Hgb 10.3 L D Hct 31.4 L MCV 88.3 MCH 28.8 MCHC 32.7 L RDW 17.4 H Plt Count 470 H Sodium Potassium Chloride Carbon Dioxide Anion Gap BUN Creatinine Est GFR ( Amer) Est GFR (Non-Af Amer) POC Glucose (mg/dL) 114 H Random Glucose Calcium Total Bilirubin AST ALT Alkaline Phosphatase Troponin I 0.3590 H* Total Protein Albumin Globulin Albumin/Globulin Ratio 12/24/16 12/24/16 12/24/16 05:32 06:10 12:55 WBC RBC Hgb Hct MCV MCH MCHC RDW Plt Count Sodium 136 Potassium 3.7 Chloride 100 Carbon Dioxide 21 L Anion Gap 19 BUN 98 H Creatinine 1.9 H Est GFR ( Amer) 31 Est GFR (Non-Af Amer) 26 POC Glucose (mg/dL) 84 114 H Random Glucose 95 Calcium 7.9 L Total Bilirubin 0.8 AST 72 H D ALT 25 Alkaline Phosphatase 118 Troponin I 0.3410 H* Total Protein 6.8 Albumin 2.8 L Globulin 3.9 Albumin/Globulin Ratio 0.7 L 12/24/16 16:59 WBC RBC Hgb Hct MCV MCH MCHC RDW Plt Count Sodium Potassium Chloride Carbon Dioxide Anion Gap BUN Creatinine Est GFR ( Amer) Est GFR (Non-Af Amer) POC Glucose (mg/dL) 105 Random Glucose Calcium Total Bilirubin AST ALT Alkaline Phosphatase Troponin I Total Protein Albumin Globulin Albumin/Globulin Ratio Fingerstick Blood Sugar Results: 105 Review of Systems - Review of Systems All systems: reviewed and no additional remarkable complaints except (as above) Critical Care Progress Note - Extremities/Vascular Does the Patient have a Central Venous Catheter?: Yes Insertion Site: RUE PICC Does the Patient need a Central Venous Catheter?: Yes Does the Patient have a Reagan Catheter?: Yes Does the Patient need a Reagan Catheter?: Yes Catheter Insertion Criteria: Need for accurate measurement of output in critically ill patient - Prophylaxis GI Prophylaxis GI: Not Indicated - Prophylaxis DVT Prophylaxis DVT: SCDs - Nutrition Nutrition: Nutrition Category Date Time Status Heart Healthy Diet [DIET] Diets 12/24/16 Lunch Active
--- NOTE | 2016-12-24 18:15 | CARD ---
APPROVED REPORT EKG Measurement Heart [id number] <Conclusion> Sinus rhythm Nonspecific T wave abnormality Abnormal ECG
--- NOTE | 2016-12-24 19:39 | CP.PCM.CON ---
History of Present Illness - History of Present Illness History of Present Illness: 76 yo female admitted with pneumonia. Patient on previous admission had percutaneous cholecystotomy. The tube is still in place and draining well. Patient has been hypotensive overnight but is awake and alert. Review of Systems - Constitutional Constitutional: Malaise - EENT Eyes: absent: Blurred Vision Ears: absent: Ear Pain Nose/Mouth/Throat: absent: Epistaxis - Cardiovascular Cardiovascular: absent: Chest Pain - Respiratory Respiratory: Dyspnea - Gastrointestinal Gastrointestinal: absent: Abdominal Pain Past Patient History - Infectious Disease Hx of Infectious Diseases: None - Tetanus Immunizations Tetanus Immunization: Unknown - Past Medical History & Family History Past Medical History?: Yes - Past Social History Smoking Status: Never Smoked - CARDIAC Hx Cardia Arrhythmia: Yes (Flutter) Hx Hypertension: Yes Hx Pacemaker: No Hx Peripheral Edema: Yes (+2) - PULMONARY Hx Bronchitis: Yes Hx Chronic Obstructive Pulmonary Disease (COPD): Yes Hx Pneumonia: Yes (5 YRS AGO) - NEUROLOGICAL Hx Neurological Disorder: No - HEENT Hx Glaucoma: Yes - RENAL Hx Chronic Kidney Disease: No - ENDOCRINE/METABOLIC Hx Endocrine Disorders: No - HEMATOLOGICAL/ONCOLOGICAL Hx Anemia: No Hx Human Immunodeficiency Virus (HIV): No - INTEGUMENTARY Hx Dermatological Problems: No - MUSCULOSKELETAL/RHEUMATOLOGICAL Hx Arthritis: Yes Hx Falls: Yes Hx Fractures: Yes Hx Osteoporosis: Yes - GASTROINTESTINAL Hx Pancreatitis: Yes - GENITOURINARY/GYNECOLOGICAL Hx Sexually Transmitted Disorders: No - PSYCHIATRIC Hx Anxiety: Yes Hx Depression: Yes Hx Substance Use: No - SURGICAL HISTORY Hx Carotid Endarterectomy: Yes - ANESTHESIA Hx Anesthesia: Yes Hx Anesthesia Reactions: No Hx Malignant Hyperthermia: No Meds Allergies/Adverse Reactions: Allergies Allergy/AdvReac Type Severity Reaction Status Date / Time Penicillins Allergy RASH Verified 12/04/16 11:27 - Medications Medications: Current Medications Aspirin (Ecotrin) 81 mg PO DAILY [facility] Last Admin: 12/24/16 09:45 Dose: 81 mg Docusate Sodium (Colace) 100 mg PO TID PRN PRN Reason: Constipation Duloxetine HCl (Cymbalta) 60 mg PO HS [facility] Last Admin: 12/23/16 21:40 Dose: 60 mg Ergocalciferol (Drisdol 50,000 Intl Units Cap) 50,000 cap PO MO PATTI Heparin Sodium (Porcine) (Heparin) 5,000 units SC Q12 PATTI PRN Reason: Protocol Last Admin: 12/24/16 09:44 Dose: 5,000 units Lactated Ringer's (Lactated Ringer's) 1,000 mls @ 150 mls/hr IV .Q6H40M [facility] Last Admin: 12/24/16 17:11 Dose: 150 mls/hr Levofloxacin/Dextrose (Levaquin 750mg) 750 mg in 150 mls @ 150 mls/hr IVPB STAT PATTI Levofloxacin/Dextrose (Levaquin 750mg) 750 mg in 150 mls @ 100 mls/hr IVPB DAILY [facility] Last Admin: 12/24/16 10:37 Dose: 100 mls/hr Norepinephrine Bitartrate 4 mg (/ Dextrose) 254 mls @ 9.52 mls/hr IV .Q24H PATTI ; 2.5 MCG/MIN PRN Reason: Protocol Last Titration: 12/24/16 17:21 Dose: 0 mcg/min, 0 mls/hr Insulin Human Regular (Humulin R) 0 units SC Q6H PATTI PRN Reason: Protocol Last Admin: 12/24/16 18:54 Dose: Not Given Loratadine (Claritin) 10 mg PO DAILY [facility] Last Admin: 12/24/16 09:45 Dose: 10 mg Ondansetron HCl (Zofran Inj) 4 mg IVP Q6 PRN PRN Reason: Nausea/Vomiting Pantoprazole Sodium (Protonix Ec Tab) 40 mg PO DAILY [facility] Last Admin: 12/24/16 09:46 Dose: 40 mg Potassium Chloride (Klor-Con 10) 10 meq PO DAILY [facility] Last Admin: 12/24/16 10:07 Dose: 10 meq Sennosides (Senokot Tab) 8.6 mg PO BID PRN PRN Reason: Constipation Last Admin: 12/23/16 21:40 Dose: 8.6 mg Physical Exam - Head Exam Head Exam: ATRAUMATIC - Eye Exam Eye Exam: Normal appearance - ENT Exam ENT Exam: Normal Exam - Neck Exam Neck exam: Positive for: Normal Inspection - Respiratory Exam Respiratory Exam: NORMAL BREATHING PATTERN - Cardiovascular Exam Cardiovascular Exam: REGULAR RHYTHM, +S1, +S2 - GI/Abdominal Exam GI & Abdominal Exam: Normal Bowel Sounds, Soft. absent: Tenderness - Extremities Exam Extremities exam: Positive for: normal inspection Results - Vital Signs Recent Vital Signs: Last Vital Signs Temp 97.7 F 12/24/16 16:00 Pulse 86 12/24/16 18:00 Resp 15 12/24/16 18:00 BP 99/52 L 12/24/16 18:00 Pulse Ox 100 12/24/16 18:00 - Labs Result Diagrams: 12/24/16 04:00 12/24/16 06:10 Labs: Laboratory Results - last 24 hr 12/23/16 12/24/16 12/24/16 23:00 00:05 04:00 WBC 15.8 H RBC 3.56 L Hgb 10.3 L D Hct 31.4 L MCV 88.3 MCH 28.8 MCHC 32.7 L RDW 17.4 H Plt Count 470 H Sodium Potassium Chloride Carbon Dioxide Anion Gap BUN Creatinine Est GFR ( Amer) Est GFR (Non-Af Amer) POC Glucose (mg/dL) 114 H Random Glucose Calcium Total Bilirubin AST ALT Alkaline Phosphatase Troponin I 0.3590 H* Total Protein Albumin Globulin Albumin/Globulin Ratio 12/24/16 12/24/16 12/24/16 05:32 06:10 12:55 WBC RBC Hgb Hct MCV MCH MCHC RDW Plt Count Sodium 136 Potassium 3.7 Chloride 100 Carbon Dioxide 21 L Anion Gap 19 BUN 98 H Creatinine 1.9 H Est GFR ( Amer) 31 Est GFR (Non-Af Amer) 26 POC Glucose (mg/dL) 84 114 H Random Glucose 95 Calcium 7.9 L Total Bilirubin 0.8 AST 72 H D ALT 25 Alkaline Phosphatase 118 Troponin I 0.3410 H* Total Protein 6.8 Albumin 2.8 L Globulin 3.9 Albumin/Globulin Ratio 0.7 L 12/24/16 16:59 WBC RBC Hgb Hct MCV MCH MCHC RDW Plt Count Sodium Potassium Chloride Carbon Dioxide Anion Gap BUN Creatinine Est GFR ( Amer) Est GFR (Non-Af Amer) POC Glucose (mg/dL) 105 Random Glucose Calcium Total Bilirubin AST ALT Alkaline Phosphatase Troponin I Total Protein Albumin Globulin Albumin/Globulin Ratio Assessment & Plan (1) Chronic cholecystitis Assessment and Plan: When patient is better clinically she should under cholangiogram through the GB tube.If the cystic duct and ampulla are open the GB tube could be pulled. If there is a CBD stricture a guidewire should be put in by radiology to facilitate a papillotomy Status: Acute
[2016-12-25] MEDS: Insulin Regular 100 units/ml SC SCH ×4 (00:54→18:00)
[2016-12-25] MEDS: Lactated Ringer's 1,000 ML IV SCH ×3 (01:30→16:15)
[2016-12-25 05:51] LABS: HEMATOCRIT 29.9 % (34.0-47.0); MEAN CELL VOLUME 88.4 fl (81.0-99.0); MEAN CORPUSCULAR HEMOGLOBIN 29.2 pg (27.0-31.0); MEAN CORPUSCULAR HGB CONC 33.1 g/dL (33.0-37.0); RED CELL DISTRIBUTION WIDTH 17.3 % (11.5-14.5); WHITE BLOOD COUNT 10.5 K/uL (4.8-10.8)
[2016-12-25 05:57] LABS: ALB/GLOB RATIO 0.7 (1.0-2.1); BILIRUBIN,TOTAL 0.6 mg/dl (0.2-1.3); CALCIUM 7.6 mg/dL (8.4-10.2); MAGNESIUM 1.3 MG/DL (1.6-2.3); PHOSPHOROUS 3.1 mg/dl (2.5-4.5); POTASSIUM 3.8 MMOL/L (3.6-5.0); TOTAL PROTEIN 6.4 G/DL (6.3-8.2)
[2016-12-25] MEDS: Potassium Chloride 10 mEq ER Tab PO SCH (08:41)
[2016-12-25] MEDS: levoFLOXacin 750 mg in D5W 750 MG/150 ML BAG IVPB SCH (08:41)
[2016-12-25] MEDS: Pantoprazole 40 mg EC Tab PO SCH (08:42)
--- NOTE | 2016-12-25 11:53 | CP.PCM.PN ---
Subjective - Date & Time of Evaluation Date of Evaluation: 12/25/16 Time of Evaluation: 10:30 - Subjective Subjective: Patient seen and examined at bedside. More awake today. Reports feeling "lousy" today. C/o chronic knee pain. Had BM today. Reports her abdominal pain is better. Denies any fevers, chills, sweats, headache. Continued to remain intermittently hypotensive overnight, although normotensive now. Objective - Vital Signs/Intake and Output Vital Signs (last 24 hours): Temp Pulse Resp BP Pulse Ox 98.8 F 86 19 114/83 96 12/25/16 08:00 12/25/16 10:00 12/25/16 10:00 12/25/16 10:00 12/25/16 10:00 Intake and Output: 12/25/16 12/25/16 06:59 18:59 Intake Total 1220 618 Output Total 1300 Balance -80 618 - Medications Medications: Current Medications Aspirin (Ecotrin) 81 mg PO DAILY [facility] Last Admin: 12/25/16 08:40 Dose: 81 mg Docusate Sodium (Colace) 100 mg PO TID PRN PRN Reason: Constipation Duloxetine HCl (Cymbalta) 60 mg PO HS PATTI Last Admin: 12/24/16 21:36 Dose: 60 mg Ergocalciferol (Drisdol 50,000 Intl Units Cap) 50,000 cap PO MO PATTI Heparin Sodium (Porcine) (Heparin) 5,000 units SC Q12 PATTI PRN Reason: Protocol Last Admin: 12/25/16 08:40 Dose: 5,000 units Levofloxacin/Dextrose (Levaquin 750mg) 750 mg in 150 mls @ 150 mls/hr IVPB STAT PATTI Levofloxacin/Dextrose (Levaquin 750mg) 750 mg in 150 mls @ 100 mls/hr IVPB DAILY PATTI Last Admin: 12/25/16 08:41 Dose: 100 mls/hr Lactated Ringer's (Lactated Ringer's) 1,000 mls @ 100 mls/hr IV .Q10H [facility] Last Admin: 12/25/16 05:00 Dose: 100 mls/hr Magnesium Sulfate (Magnesium Sulfate 2 Gm/50 Ml Water) 2 gm in 50 mls @ 50 mls/ hr IV ONCE ONE PRN Reason: 2 GM/HR Stop: 12/25/16 12:59 Insulin Human Regular (Humulin R) 0 units SC Q6H PATTI PRN Reason: Protocol Last Admin: 12/25/16 06:54 Dose: Not Given Loratadine (Claritin) 10 mg PO DAILY [facility] Last Admin: 12/25/16 08:40 Dose: 10 mg Magnesium Oxide (Mag-Ox) 400 mg PO BID [facility] Ondansetron HCl (Zofran Inj) 4 mg IVP Q6 PRN PRN Reason: Nausea/Vomiting Pantoprazole Sodium (Protonix Ec Tab) 40 mg PO DAILY [facility] Last Admin: 12/25/16 08:42 Dose: 40 mg Potassium Chloride (Klor-Con 10) 10 meq PO DAILY [facility] Last Admin: 12/25/16 08:41 Dose: 10 meq Sennosides (Senokot Tab) 8.6 mg PO BID PRN PRN Reason: Constipation Last Admin: 12/23/16 21:40 Dose: 8.6 mg - Labs Labs: 12/25/16 04:20 12/25/16 04:20 PT 13.2 Seconds (9.8-13.1) H 12/23/16 15:00 INR 1.2 (0.9-1.2) 12/23/16 15:00 APTT 18.8 Seconds (25.6-37.1) L 12/23/16 15:00 - Additional Findings Additional findings: Physical exam: Constitutional- cooperative, awake, alert. Head- NCAT, PERRL Eye- PERRL, normal accommodation ENT- normal exam, MMM. Neck- normal inspection, supple, no JVD Respiratory- CTAB, no wheezes, no rales, + bibasilar rhonchi Cardiovascular- RRR, +S1, +S2 no MRG GI/Abdominal- normal bowel sounds, soft, no mass, no hsm Skin- warm, dry Extremities Exam- normal capillary refill, normal inspection Neurological Exam- alert, CN II-XII Psych- normal mood, normal affect Assessment and Plan - Assessment and Plan (Free Text) Plan: ASSESSMENT/PLAN 76 yo female with chronic pancreatitis admitted with sepsis due to acute on chronic pancreatitis, bilbasilar pneumonia, along with prerenal azotemia secondary to dehydration. 1) Sepsis due to pneumonia and pancreatitis- much improved, still intermittently hypotensive - Sql Application Developer consultation, Dr. Sanchez - Continue management in ICU at this time - Continue Lactated Ringer's at 150 cc/hour - Norepinephrine discontinued - Monitor vitals closely - Patient awake/alert at this time - DNR/DNI 2) Acute on chronic pancreatitis - Continue IV fluids - GI consultation with Dr. Mariscal, called from ED- plan for cholangiogram through the GB tube; if the cystic duct and ampulla are open the GB tube could be pulled. - Percutaneous cholecystostomy tube in place and draining well - Heart healthy diet - No epigastric pain this morning 3) Prerenal azotemia secondary to dehydration from poor po intake/pancreatitis - BUN/Cr elevated from baseline - IV fluids as above - GFR slightly improved but still elevated; 29 -> 31 today - Recheck BUN/Cr in AM 4) Type 2 Diabetes mellitus - Accuchecks q6h with regular insulin coverage 5) Hypomagnesemia - 1.2-->1.3 today - Give 2 grams of Mag and start po Magox - Recheck tomorrow AM along with other lytes 6) Hypokalemia- resolved - 3.8 today - Likely due to HCTZ - Giving lactated ringers 7) Elevated troponin, 0.2820--> 0.3590 --> 0.3410 - Likely due to type 2 stress demand ischemia from dehydration and infection - Nonspecific T wave abnormality on EKG - no further workup at this time 8) Depression/Anxiety - Hold trazodone, benzos due to their sedating/hypotensive effect 9) DVT prophylaxis - Heparin SQ 10) GI prophylaxis - Esmoprazole
[2016-12-25] MEDS ORDERED: Magnesium Sulfate 2 gm/50 ml 2 GM/50 ML BAG IV ONE (12:00)
[2016-12-25] MEDS: Magnesium Oxide 400 mg Tab UD PO SCH (16:50)
[2016-12-25] MEDS ORDERED: Alum-Mag Hydrox-Simethicone Susp (30 mL) PO ONE (21:50)
--- NOTE | 2016-12-25 21:52 | CARD ---
APPROVED REPORT EKG Measurement Heart [id number] <Conclusion> Normal sinus rhythm Normal ECG
[2016-12-26 05:23] LABS: HEMATOCRIT 28.8 % (34.0-47.0); MEAN CELL VOLUME 88.3 fl (81.0-99.0); MEAN CORPUSCULAR HEMOGLOBIN 28.8 pg (27.0-31.0); MEAN CORPUSCULAR HGB CONC 32.6 g/dL (33.0-37.0); RED CELL DISTRIBUTION WIDTH 17.3 % (11.5-14.5)
[2016-12-26 05:26] LABS: BLOOD UREA NITROGEN 31 mg/dl (7-17); CALCIUM 7.5 mg/dL (8.4-10.2); CARBON DIOXIDE 27 mmol/L (22-30); CHLORIDE 107 mmol/L (98-107); GFR AFRICAN-AMERICAN > 60; GLUCOSE,RANDOM 112 mg/dL (65-105); MAGNESIUM 1.6 MG/DL (1.6-2.3); POTASSIUM 3.5 MMOL/L (3.6-5.0); SODIUM 141 mmol/l (132-148)
[2016-12-26] MEDS: Insulin Regular 100 units/ml SC SCH ×2 (07:00→17:53)
[2016-12-26] MEDS ORDERED: Potassium Chloride 20 mEq ER Tab PO ONE (07:52)
[2016-12-26] MEDS: Pantoprazole 40 mg EC Tab PO SCH (09:01)
[2016-12-26] MEDS: Magnesium Oxide 400 mg Tab UD PO SCH ×2 (09:01→16:46)
[2016-12-26] MEDS: Potassium Chloride 10 mEq ER Tab PO SCH (09:01)
[2016-12-26] MEDS: levoFLOXacin 750 mg in D5W 750 MG/150 ML BAG IVPB SCH (09:02)
[2016-12-26] MEDS ORDERED: Patient's Own Med (Oxycodone Hcl/Acetaminophen [Percocet 10-325 Mg Tablet] 1 TAB) PO PRN (09:15)
--- NOTE | 2016-12-26 09:20 | CP.PCM.PN ---
Subjective - Date & Time of Evaluation Date of Evaluation: 12/26/16 Time of Evaluation: 09:00 - Subjective Subjective: Pt was asking for her Xanax and Percocet as soon as I came in No fever occ cough with small amount of phlegm mild abd pain but states she needs her Percocet bilious drainage from Cholecystotomy tube - drained 200ml overnight tolerated breakfast no CP no SOB Objective - Vital Signs/Intake and Output Vital Signs (last 24 hours): Temp Pulse Resp BP Pulse Ox 97.5 F L 85 20 112/71 99 12/26/16 08:00 12/26/16 08:00 12/26/16 08:00 12/26/16 06:00 12/26/16 08:00 Intake and Output: 12/26/16 12/26/16 06:59 18:59 Intake Total 1200 Balance 1200 - Medications Medications: Current Medications Acetaminophen (Tylenol 325mg Tab) 650 mg PO Q6 PRN PRN Reason: Pain, moderate (4-7) Last Admin: 12/25/16 16:43 Dose: 650 mg Alprazolam (Xanax) 0.25 mg PO TID [facility] Stop: 01/02/17 13:01 Aspirin (Ecotrin) 81 mg PO DAILY [facility] Last Admin: 12/26/16 09:00 Dose: 81 mg Docusate Sodium (Colace) 100 mg PO TID PRN PRN Reason: Constipation Duloxetine HCl (Cymbalta) 60 mg PO HS [facility] Last Admin: 12/25/16 21:38 Dose: 60 mg Ergocalciferol (Drisdol 50,000 Intl Units Cap) 50,000 cap PO MO [facility] Heparin Sodium (Porcine) (Heparin) 5,000 units SC Q12 PATTI PRN Reason: Protocol Last Admin: 12/26/16 09:00 Dose: 5,000 units Home Med (Oxycodone Hcl/Acetaminophen [Percocet 10-325 Mg Tablet]) 1 tab PO Q6H PRN PRN Reason: Pain, severe (8-10) Levofloxacin/Dextrose (Levaquin 750mg) 750 mg in 150 mls @ 150 mls/hr IVPB STAT PATTI Levofloxacin/Dextrose (Levaquin 750mg) 750 mg in 150 mls @ 100 mls/hr IVPB DAILY [facility] Last Admin: 12/26/16 09:02 Dose: 100 mls/hr Lactated Ringer's (Lactated Ringer's) 1,000 mls @ 150 mls/hr IV .Q6H40M [facility] Stop: 12/28/16 08:31 Insulin Human Regular (Humulin R) 0 units SC Q6H PATTI PRN Reason: Protocol Last Admin: 12/25/16 18:00 Dose: Not Given Loratadine (Claritin) 10 mg PO DAILY [facility] Last Admin: 12/25/16 08:40 Dose: 10 mg Magnesium Oxide (Mag-Ox) 400 mg PO BID [facility] Last Admin: 12/26/16 09:01 Dose: 400 mg Ondansetron HCl (Zofran Inj) 4 mg IVP Q6 PRN PRN Reason: Nausea/Vomiting Pantoprazole Sodium (Protonix Ec Tab) 40 mg PO DAILY [facility] Last Admin: 12/26/16 09:01 Dose: 40 mg Potassium Chloride (Klor-Con 10) 10 meq PO DAILY [facility] Last Admin: 12/26/16 09:01 Dose: 10 meq Sennosides (Senokot Tab) 8.6 mg PO BID PRN PRN Reason: Constipation Last Admin: 12/23/16 21:40 Dose: 8.6 mg - Labs Labs: 12/26/16 04:40 12/26/16 04:40 PT 13.2 Seconds (9.8-13.1) H 12/23/16 15:00 INR 1.2 (0.9-1.2) 12/23/16 15:00 APTT 18.8 Seconds (25.6-37.1) L 12/23/16 15:00 - Constitutional Appears: No Acute Distress, Chronically Ill - Head Exam Head Exam: ATRAUMATIC, NORMAL INSPECTION, NORMOCEPHALIC - Eye Exam Eye Exam: EOMI, Normal appearance Pupil Exam: NORMAL ACCOMODATION - ENT Exam ENT Exam: Mucous Membranes Moist, Normal External Ear Exam - Neck Exam Neck Exam: Full ROM. absent: Meningismus - Respiratory Exam Respiratory Exam: Rales, Rhonchi, NORMAL BREATHING PATTERN. absent: Respiratory Distress - Cardiovascular Exam Cardiovascular Exam: REGULAR RHYTHM, +S1, +S2 - GI/Abdominal Exam GI & Abdominal Exam: Soft, Tenderness (mild tenderness), Normal Bowel Sounds Additional comments: cholecystostomy tube tube in place draining bilious fluid - Extremities Exam Extremities Exam: Normal Capillary Refill, Pedal Edema. absent: Calf Tenderness - Back Exam Back Exam: absent: CVA tenderness (L), CVA tenderness (R) - Neurological Exam Neurological Exam: Alert, Awake, CN II-XII Intact, Oriented x3 Neuro motor strength exam: Left Upper Extremity: 5, Right Upper Extremity: 5, Left Lower Extremity: 5, Right Lower Extremity: 5 - Psychiatric Exam Psychiatric exam: Normal Affect, Normal Mood - Skin Skin Exam: Dry, Normal Color, Warm Assessment and Plan - Assessment and Plan (Free Text) Assessment: 76 yo female with chronic pancreatitis admitted with sepsis due to acute on chronic pancreatitis, bilbasilar pneumonia, along with prerenal azotemia secondary to dehydration. 1) Sepsis due to pneumonia and pancreatitis, improved - pt was monitored in ICU-- can be transferred to med Surg -IVF hydration - Norepinephrine discontinued - Monitor vitals closely - Patient awake/alert at this time - DNR/DNI -cont IV Levaquin 2) Acute on chronic pancreatitis - Continue IV fluids - GI consultation with Dr. Mariscal, discussed case - plan for cholangiogram through the GB tube; if the cystic duct and ampulla are open the GB tube could be pulled. - Percutaneous cholecystostomy tube in place and draining well - Heart healthy diet -Pain mgt 3) Prerenal azotemia secondary to dehydration from poor po intake/pancreatitis - BUN/Cr elevated from baseline - IV fluids as above - Recheck BUN/Cr in AM 4) Type 2 Diabetes mellitus - Accuchecks q6h with regular insulin coverage 5) Hypomagnesemia replaced with MgSo4 6) Hypokalemia - Likely due to HCTZ -replace with KCl PO 7) Elevated troponin, 0.2820--> 0.3590 --> 0.3410 - Likely due to type 2 stress demand ischemia from dehydration and infection - Nonspecific T wave abnormality on EKG, no change from previous, [t asymptomatic - no further workup at this time 8) Depression/Anxiety -cont benzo 9) DVT prophylaxis - Heparin SQ 10) GI prophylaxis - Protonix
--- NOTE | 2016-12-26 13:56 | CP.PCM.PN ---
Subjective - Date & Time of Evaluation Date of Evaluation: 12/26/16 Time of Evaluation: 09:00 - Subjective Subjective: Clinically improving as far as BP and pneumonia Objective - Vital Signs/Intake and Output Vital Signs (last 24 hours): Temp Pulse Resp BP Pulse Ox 98.3 F 90 22 148/78 97 12/26/16 12:15 12/26/16 12:15 12/26/16 12:15 12/26/16 12:15 12/26/16 12:15 Intake and Output: 12/26/16 12/26/16 06:59 18:59 Intake Total 1200 970 Balance 1200 970 - Medications Medications: Current Medications Acetaminophen (Tylenol 325mg Tab) 650 mg PO Q6 PRN PRN Reason: Pain, moderate (4-7) Last Admin: 12/25/16 16:43 Dose: 650 mg Alprazolam (Xanax) 0.25 mg PO TID [facility] Stop: 01/02/17 13:01 Last Admin: 12/26/16 13:28 Dose: 0.25 mg Aspirin (Ecotrin) 81 mg PO DAILY [facility] Last Admin: 12/26/16 09:00 Dose: 81 mg Docusate Sodium (Colace) 100 mg PO TID PRN PRN Reason: Constipation Duloxetine HCl (Cymbalta) 60 mg PO HS [facility] Last Admin: 12/25/16 21:38 Dose: 60 mg Ergocalciferol (Drisdol 50,000 Intl Units Cap) 50,000 cap PO MO PATTI Heparin Sodium (Porcine) (Heparin) 5,000 units SC Q12 PATTI PRN Reason: Protocol Last Admin: 12/26/16 09:00 Dose: 5,000 units Levofloxacin/Dextrose (Levaquin 750mg) 750 mg in 150 mls @ 150 mls/hr IVPB STAT PATTI Levofloxacin/Dextrose (Levaquin 750mg) 750 mg in 150 mls @ 100 mls/hr IVPB DAILY [facility] Last Admin: 12/26/16 09:02 Dose: 100 mls/hr Lactated Ringer's (Lactated Ringer's) 1,000 mls @ 150 mls/hr IV .Q6H40M [facility] Stop: 12/28/16 08:31 Insulin Human Regular (Humulin R) 0 units SC Q6H PATTI PRN Reason: Protocol Last Admin: 12/26/16 07:00 Dose: Not Given Loratadine (Claritin) 10 mg PO DAILY [facility] Last Admin: 12/25/16 08:40 Dose: 10 mg Magnesium Oxide (Mag-Ox) 400 mg PO BID [facility] Last Admin: 12/26/16 09:01 Dose: 400 mg Ondansetron HCl (Zofran Inj) 4 mg IVP Q6 PRN PRN Reason: Nausea/Vomiting Last Admin: 12/26/16 13:24 Dose: 4 mg Oxycodone/Acetaminophen (Percocet 5/325 Mg Tab) 1 tab PO Q6 PRN PRN Reason: Pain, moderate (4-7) Stop: 12/29/16 10:53 Pantoprazole Sodium (Protonix Ec Tab) 40 mg PO DAILY [facility] Last Admin: 12/26/16 09:01 Dose: 40 mg Potassium Chloride (Klor-Con 10) 10 meq PO DAILY [facility] Last Admin: 12/26/16 09:01 Dose: 10 meq Sennosides (Senokot Tab) 8.6 mg PO BID PRN PRN Reason: Constipation Last Admin: 12/23/16 21:40 Dose: 8.6 mg - Labs Labs: 12/26/16 04:40 12/26/16 04:40 PT 13.2 Seconds (9.8-13.1) H 12/23/16 15:00 INR 1.2 (0.9-1.2) 12/23/16 15:00 APTT 18.8 Seconds (25.6-37.1) L 12/23/16 15:00 - Head Exam Head Exam: ATRAUMATIC - Eye Exam Eye Exam: Normal appearance - ENT Exam ENT Exam: Mucous Membranes Moist - Respiratory Exam Respiratory Exam: Clear to Ausculation Bilateral - Cardiovascular Exam Cardiovascular Exam: REGULAR RHYTHM, +S1, +S2 - GI/Abdominal Exam GI & Abdominal Exam: Normal Bowel Sounds Assessment and Plan (1) Chronic cholecystitis Assessment & Plan: Will get cholangiogram to evaluate cystic duct and CBD. Will then determine in consultation with surgery if cholecystomy tube can be removed. Status: Acute
[2016-12-26] MEDS: Oxycodone/Acetaminophen 5/325 mg Tab PO PRN (21:17)
[2016-12-26] MEDS: Lactated Ringer's 1,000 ML IV SCH (22:38)
[2016-12-27] MEDS: Insulin Regular 100 units/ml SC SCH ×6 (00:29→23:59)
[2016-12-27 07:18] LABS: BASO # 0.1 K/uL (0.0-0.2); BASO % 0.9 % (0.0-2.0); EOS # 0.2 K/uL (0.0-0.7); EOS % 2.6 % (0.0-4.0); LYMPH # 1.7 K/uL (1.0-4.3); LYMPH % 23.7 % (20.0-40.0); MEAN CELL VOLUME 89.6 fl (81.0-99.0); MEAN CORPUSCULAR HEMOGLOBIN 29.2 pg (27.0-31.0); MEAN CORPUSCULAR HGB CONC 32.6 g/dL (33.0-37.0); MEAN PLATELET VOLUME 8.3 fl (7.2-11.7); MONO # 0.7 K/uL (0.0-0.8); MONO % 10.4 % (0.0-10.0); NEUT # 4.5 K/uL (1.8-7.0); NEUT % 62.4 % (50.0-75.0); RED CELL DISTRIBUTION WIDTH 17.4 % (11.5-14.5); WHITE BLOOD COUNT 7.2 K/uL (4.8-10.8)
[2016-12-27 07:29] LABS: ALB/GLOB RATIO 0.7 (1.0-2.1); ALKALINE PHOSPHATASE 122 U/L (38-126); ALT/SGPT 33 U/L (9-52); AST/SGOT 72 U/L (14-36); BILIRUBIN,TOTAL 0.5 mg/dl (0.2-1.3); BLOOD UREA NITROGEN 16 mg/dl (7-17); CALCIUM 7.5 mg/dL (8.4-10.2); CARBON DIOXIDE 29 mmol/L (22-30); CHLORIDE 106 mmol/L (98-107); GFR AFRICAN-AMERICAN > 60; GLUCOSE,RANDOM 96 mg/dL (65-105); LIPASE 1150 U/L (23-300); POTASSIUM 3.6 MMOL/L (3.6-5.0); SODIUM 142 mmol/l (132-148)
[2016-12-27] MEDS: Potassium Chloride 10 mEq ER Tab PO SCH (10:22)
[2016-12-27] MEDS: Pantoprazole 40 mg EC Tab PO SCH (10:23)
[2016-12-27] MEDS: Magnesium Oxide 400 mg Tab UD PO SCH ×2 (10:23→16:45)
[2016-12-27] MEDS: Oxycodone/Acetaminophen 5/325 mg Tab PO PRN ×3 (10:26→23:48)
--- NOTE | 2016-12-27 11:01 | CP.PCM.PN ---
Subjective - Date & Time of Evaluation Date of Evaluation: 12/27/16 Time of Evaluation: 11:01 - Subjective Subjective: patient seen and evaluated at bedside for possible pancreatitis in patient with cholecystostomy tube. Patient is resting comfortably in bed, has no complaints at this time. Hemodynamically stable and in no acute distress. Patient was also noted to have gram-positive rods in blood yesterday started vancomycin. Objective - Vital Signs/Intake and Output Vital Signs (last 24 hours): Temp Pulse Resp BP Pulse Ox 98.1 F 88 19 128/80 93 L 12/27/16 07:46 12/27/16 07:46 12/27/16 07:46 12/27/16 07:46 12/27/16 07:46 Physical exam: Constitutional- cooperative, awake, alert. Head- NCAT, PERRL Eye- PERRL, normal accommodation ENT- normal exam, MMM. Neck- normal inspection, supple, no JVD Respiratory- CTAB, no wheezes rales rhonchi Cardiovascular- RRR, +S1, +S2 no MRG GI/Abdominal- normal bowel sounds, soft, no mass, no hsm Skin- warm, dry Extremities Exam- normal capillary refill, normal inspection Neurological Exam- alert, awake Psych- normal mood, normal affect Intake and Output: 12/27/16 12/27/16 06:59 18:59 Intake Total 700 Output Total 50 Balance 650 - Medications Medications: Current Medications Acetaminophen (Tylenol 325mg Tab) 650 mg PO Q6 PRN PRN Reason: Pain, moderate (4-7) Last Admin: 12/25/16 16:43 Dose: 650 mg Alprazolam (Xanax) 0.25 mg PO TID [facility] Stop: 01/02/17 13:01 Last Admin: 12/27/16 10:15 Dose: 0.25 mg Aspirin (Ecotrin) 81 mg PO DAILY [facility] Last Admin: 12/27/16 10:21 Dose: 81 mg Docusate Sodium (Colace) 100 mg PO TID PRN PRN Reason: Constipation Duloxetine HCl (Cymbalta) 60 mg PO HS [facility] Last Admin: 12/26/16 23:12 Dose: 60 mg Ergocalciferol (Drisdol 50,000 Intl Units Cap) 50,000 cap PO MO [facility] Heparin Sodium (Porcine) (Heparin) 5,000 units SC Q12 [facility] PRN Reason: Protocol Last Admin: 12/27/16 10:21 Dose: 5,000 units Levofloxacin/Dextrose (Levaquin 750mg) 750 mg in 150 mls @ 100 mls/hr IVPB DAILY [facility] Last Admin: 12/26/16 09:02 Dose: 100 mls/hr Lactated Ringer's (Lactated Ringer's) 1,000 mls @ 150 mls/hr IV .Q6H40M [facility] Stop: 12/28/16 08:31 Last Admin: 12/26/16 22:38 Dose: Not Given Vancomycin HCl 1 gm/ Sodium (Chloride) 250 mls @ 166.667 mls/hr IVPB Q12H [facility] PRN Reason: Protocol Insulin Human Regular (Humulin R) 0 units SC Q6H [facility] PRN Reason: Protocol Last Admin: 12/27/16 07:02 Dose: Not Given Loratadine (Claritin) 10 mg PO DAILY [facility] Last Admin: 12/25/16 08:40 Dose: 10 mg Magnesium Oxide (Mag-Ox) 400 mg PO BID [facility] Last Admin: 12/27/16 10:23 Dose: 400 mg Ondansetron HCl (Zofran Inj) 4 mg IVP Q6 PRN PRN Reason: Nausea/Vomiting Last Admin: 12/26/16 13:24 Dose: 4 mg Oxycodone/Acetaminophen (Percocet 5/325 Mg Tab) 1 tab PO Q6 PRN PRN Reason: Pain, moderate (4-7) Stop: 12/29/16 10:53 Last Admin: 12/27/16 10:26 Dose: 1 tab Pantoprazole Sodium (Protonix Ec Tab) 40 mg PO DAILY [facility] Last Admin: 12/27/16 10:23 Dose: 40 mg Potassium Chloride (Klor-Con 10) 10 meq PO DAILY [facility] Last Admin: 12/27/16 10:22 Dose: 10 meq Sennosides (Senokot Tab) 8.6 mg PO BID PRN PRN Reason: Constipation Last Admin: 12/23/16 21:40 Dose: 8.6 mg - Labs Labs: 12/27/16 05:30 12/27/16 06:30 PT 13.2 Seconds (9.8-13.1) H 12/23/16 15:00 INR 1.2 (0.9-1.2) 12/23/16 15:00 APTT 18.8 Seconds (25.6-37.1) L 12/23/16 15:00 Assessment and Plan - Assessment and Plan (Free Text) Plan: 76 yo female with chronic pancreatitis admitted with sepsis due to acute on chronic pancreatitis, bilbasilar pneumonia, along with prerenal azotemia secondary to dehydration. 1) Sepsis due to pneumonia and pancreatitis, improved - pt was monitored in ICU-- can be transferred to med Surg -IVF hydration - Norepinephrine discontinued - Monitor vitals closely - Patient awake/alert at this time - DNR/DNI -cont IV Levaquin - blood cultures returned positive gram-positive cocci, will initiate vancomycin starting last night. 2) Acute on chronic pancreatitis - Continue IV fluids - GI consultation with Dr. Mariscal, discussed case - plan for cholangiogram through the GB tube; if the cystic duct and ampulla are open the GB tube could be pulled. - Percutaneous cholecystostomy tube in place and draining well - Heart healthy diet -Pain mgt 3) Prerenal azotemia secondary to dehydration from poor po intake/pancreatitis - BUN/Cr elevated from baseline - IV fluids as above - Recheck BUN/Cr in AM 4) Type 2 Diabetes mellitus - Accuchecks q6h with regular insulin coverage 5) Hypomagnesemia replaced with MgSo4 6) Hypokalemia - Likely due to HCTZ -replace with KCl PO 7) Elevated troponin, 0.2820--> 0.3590 --> 0.3410 - Likely due to type 2 stress demand ischemia from dehydration and infection - Nonspecific T wave abnormality on EKG, no change from previous, [t asymptomatic - no further workup at this time 8) Depression/Anxiety -cont benzo 9) DVT prophylaxis - Heparin SQ 10) GI prophylaxis - Protonix
[2016-12-27] MEDS: levoFLOXacin 750 mg in D5W 750 MG/150 ML BAG IVPB SCH (16:43)
[2016-12-28] MEDS: Lactated Ringer's 1,000 ML IV SCH (00:46)
[2016-12-28] MEDS: Insulin Regular 100 units/ml SC SCH ×3 (06:46→17:47)
[2016-12-28 07:02] LABS: BASO # 0.1 K/uL (0.0-0.2); BASO % 0.9 % (0.0-2.0); EOS # 0.3 K/uL (0.0-0.7); EOS % 3.8 % (0.0-4.0); HEMATOCRIT 28.7 % (34.0-47.0); LYMPH # 1.8 K/uL (1.0-4.3); LYMPH % 25.8 % (20.0-40.0); MEAN CELL VOLUME 89.3 fl (81.0-99.0); MEAN CORPUSCULAR HEMOGLOBIN 29.3 pg (27.0-31.0); MEAN CORPUSCULAR HGB CONC 32.8 g/dL (33.0-37.0); MONO # 0.8 K/uL (0.0-0.8); MONO % 10.8 % (0.0-10.0); NEUT # 4.2 K/uL (1.8-7.0); NEUT % 58.7 % (50.0-75.0); RED CELL DISTRIBUTION WIDTH 17.1 % (11.5-14.5); WHITE BLOOD COUNT 7.1 K/uL (4.8-10.8)
[2016-12-28 07:24] LABS: ALB/GLOB RATIO 0.7 (1.0-2.1); BILIRUBIN,TOTAL 0.4 mg/dl (0.2-1.3)
[2016-12-28] MEDS: Oxycodone/Acetaminophen 5/325 mg Tab PO PRN ×3 (08:52→23:45)
[2016-12-28] MEDS: Pantoprazole 40 mg EC Tab PO SCH (08:54)
[2016-12-28] MEDS: Magnesium Oxide 400 mg Tab UD PO SCH ×2 (08:56→17:52)
[2016-12-28] MEDS: Potassium Chloride 10 mEq ER Tab PO SCH (08:57)
--- NOTE | 2016-12-28 10:46 | CP.PCM.PN ---
Subjective - Date & Time of Evaluation Date of Evaluation: 12/28/16 Time of Evaluation: 10:44 - Subjective Subjective: patient seen and examined at bedside for pancreatitis. She has no complaints at this time. Denies chest pain, shortness of breath, abdominal pain. It hemodynamically stable no acute distress. Objective - Vital Signs/Intake and Output Vital Signs (last 24 hours): Temp Pulse Resp BP Pulse Ox 97.4 F L 87 19 135/86 93 L 12/28/16 07:47 12/28/16 07:47 12/28/16 07:47 12/28/16 07:47 12/28/16 07:47 Physical exam: Constitutional- cooperative, awake, alert. Head- NCAT, PERRL Eye- PERRL, normal accommodation ENT- normal exam, MMM. Neck- normal inspection, supple, no JVD Respiratory- CTAB, no wheezes rales rhonchi Cardiovascular- RRR, +S1, +S2 no MRG GI/Abdominal- normal bowel sounds, soft, no mass, no hsm cholecystostomy tube in place Skin- warm, dry Extremities Exam- normal capillary refill, normal inspection Neurological Exam- alert, mostly bedbound Psych- normal mood, normal affect Intake and Output: 12/28/16 12/28/16 06:59 18:59 Output Total 150 Balance -150 - Medications Medications: Current Medications Acetaminophen (Tylenol 325mg Tab) 650 mg PO Q6 PRN PRN Reason: Pain, moderate (4-7) Last Admin: 12/27/16 22:16 Dose: 650 mg Alprazolam (Xanax) 0.25 mg PO TID [facility] Stop: 01/02/17 13:01 Last Admin: 12/28/16 08:51 Dose: 0.25 mg Aspirin (Ecotrin) 81 mg PO DAILY [facility] Last Admin: 12/28/16 08:56 Dose: 81 mg Docusate Sodium (Colace) 100 mg PO TID PRN PRN Reason: Constipation Duloxetine HCl (Cymbalta) 60 mg PO HS [facility] Last Admin: 12/27/16 21:12 Dose: 60 mg Ergocalciferol (Drisdol 50,000 Intl Units Cap) 50,000 cap PO MO [facility] Heparin Sodium (Porcine) (Heparin) 5,000 units SC Q12 [facility] PRN Reason: Protocol Last Admin: 12/28/16 08:54 Dose: 5,000 units Levofloxacin/Dextrose (Levaquin 750mg) 750 mg in 150 mls @ 100 mls/hr IVPB DAILY [facility] Last Admin: 12/27/16 16:43 Dose: 100 mls/hr Vancomycin HCl 1 gm/ Sodium (Chloride) 250 mls @ 166.667 mls/hr IVPB Q12H [facility] PRN Reason: Protocol Last Admin: 12/28/16 08:58 Dose: 166.667 mls/hr Insulin Human Regular (Humulin R) 0 units SC Q6H [facility] PRN Reason: Protocol Last Admin: 12/28/16 06:46 Dose: Not Given Loratadine (Claritin) 10 mg PO DAILY [facility] Last Admin: 12/28/16 08:56 Dose: Not Given Magnesium Oxide (Mag-Ox) 400 mg PO BID [facility] Last Admin: 12/28/16 08:56 Dose: 400 mg Ondansetron HCl (Zofran Inj) 4 mg IVP Q6 PRN PRN Reason: Nausea/Vomiting Last Admin: 12/26/16 13:24 Dose: 4 mg Oxycodone/Acetaminophen (Percocet 5/325 Mg Tab) 1 tab PO Q6 PRN PRN Reason: Pain, moderate (4-7) Stop: 12/29/16 10:53 Last Admin: 12/28/16 08:52 Dose: 1 tab Pantoprazole Sodium (Protonix Ec Tab) 40 mg PO DAILY [facility] Last Admin: 12/28/16 08:54 Dose: 40 mg Potassium Chloride (Klor-Con 10) 10 meq PO DAILY [facility] Last Admin: 12/28/16 08:57 Dose: 10 meq Sennosides (Senokot Tab) 8.6 mg PO BID PRN PRN Reason: Constipation Last Admin: 12/23/16 21:40 Dose: 8.6 mg - Labs Labs: 12/28/16 06:46 12/27/16 06:30 PT 13.2 Seconds (9.8-13.1) H 12/23/16 15:00 INR 1.2 (0.9-1.2) 12/23/16 15:00 APTT 18.8 Seconds (25.6-37.1) L 12/23/16 15:00 Assessment and Plan - Assessment and Plan (Free Text) Plan: 76 yo female with chronic pancreatitis admitted with sepsis due to acute on chronic pancreatitis, bilbasilar pneumonia, along with prerenal azotemia secondary to dehydration. 1) Sepsis due to pneumonia and pancreatitis, improved - pt was monitored in ICU-- can be transferred to med Surg -IVF hydration - Norepinephrine discontinued - Monitor vitals closely - Patient awake/alert at this time - DNR/DNI -cont IV Levaquin - blood cultures returned positive gram-positive cocci, will initiate vancomycin starting last night. 2) Acute on chronic pancreatitis - Continue IV fluids - GI consultation with Dr. Mariscal, discussed case - plan for cholangiogram through the GB tube; if the cystic duct and ampulla are open the GB tube could be pulled. - Percutaneous cholecystostomy tube in place and draining well - Heart healthy diet -Pain mgt 3) Prerenal azotemia secondary to dehydration from poor po intake/pancreatitis - BUN/Cr elevated from baseline - IV fluids as above - Recheck BUN/Cr in AM 4) Type 2 Diabetes mellitus - Accuchecks q6h with regular insulin coverage 5) Hypomagnesemia replaced with MgSo4 6) Hypokalemia - Likely due to HCTZ -replace with KCl PO 7) Elevated troponin, 0.2820--> 0.3590 --> 0.3410 - Likely due to type 2 stress demand ischemia from dehydration and infection - Nonspecific T wave abnormality on EKG, no change from previous, [t asymptomatic - no further workup at this time 8) Depression/Anxiety -cont benzo 9) DVT prophylaxis - Heparin SQ 10) GI prophylaxis - Protonix
[2016-12-28] MEDS: levoFLOXacin 750 mg in D5W 750 MG/150 ML BAG IVPB SCH (11:18)
[2016-12-29] MEDS: Insulin Regular 100 units/ml SC SCH ×4 (00:31→19:28)
[2016-12-29] MEDS: Oxycodone/Acetaminophen 5/325 mg Tab PO PRN ×2 (06:40→12:28)
[2016-12-29 06:51] LABS: ALB/GLOB RATIO 0.7 (1.0-2.1); BILIRUBIN,TOTAL 0.4 mg/dl (0.2-1.3); TOTAL PROTEIN 6.2 G/DL (6.3-8.2)
[2016-12-29] MEDS: levoFLOXacin 750 mg in D5W 750 MG/150 ML BAG IVPB SCH (08:40)
[2016-12-29] MEDS: Potassium Chloride 10 mEq ER Tab PO SCH (08:40)
[2016-12-29] MEDS: Magnesium Oxide 400 mg Tab UD PO SCH ×2 (08:41→16:43)
[2016-12-29] MEDS: Pantoprazole 40 mg EC Tab PO SCH (08:41)
--- NOTE | 2016-12-29 11:31 | CP.PCM.PN ---
Subjective - Date & Time of Evaluation Date of Evaluation: 12/29/16 Time of Evaluation: 11:29 - Subjective Subjective: Patient seen and examined at bedside for pancreatitis. Patient is hemodynamically stable and in no acute distress. We will await cholangiogram for further recommendations regarding cholecystostomy tubeI. Objective - Vital Signs/Intake and Output Vital Signs (last 24 hours): Temp Pulse Resp BP Pulse Ox 97.9 F 89 18 136/84 95 12/29/16 08:38 12/29/16 08:38 12/29/16 08:38 12/29/16 08:38 12/29/16 08:38 Physical exam: Constitutional- cooperative, awake, alert. Head- NCAT, PERRL Eye- PERRL, normal accommodation ENT- normal exam, MMM. Neck- normal inspection, supple, no JVD Respiratory- CTAB, no wheezes rales rhonchi Cardiovascular- RRR, +S1, +S2 no MRG GI/Abdominal- normal bowel sounds, soft, no mass, no hsm Skin- warm, dry Extremities Exam- normal capillary refill, normal inspection Neurological Exam- alert, aawake Psych- normal mood, normal affect Intake and Output: 12/29/16 12/29/16 06:59 18:59 Output Total 125 Balance -125 - Medications Medications: Current Medications Acetaminophen (Tylenol 325mg Tab) 650 mg PO Q6 PRN PRN Reason: Pain, moderate (4-7) Last Admin: 12/28/16 14:35 Dose: 650 mg Alprazolam (Xanax) 0.25 mg PO TID [facility] Stop: 01/02/17 13:01 Last Admin: 12/29/16 08:30 Dose: 0.25 mg Aspirin (Ecotrin) 81 mg PO DAILY [facility] Last Admin: 12/29/16 08:39 Dose: 81 mg Docusate Sodium (Colace) 100 mg PO TID PRN PRN Reason: Constipation Duloxetine HCl (Cymbalta) 60 mg PO [facility] Last Admin: 12/28/16 21:23 Dose: 60 mg Ergocalciferol (Drisdol 50,000 Intl Units Cap) 50,000 cap PO [facility] Levofloxacin/Dextrose (Levaquin 750mg) 750 mg in 150 mls @ 100 mls/hr IVPB DAILY [facility] Last Admin: 12/29/16 08:40 Dose: 100 mls/hr Vancomycin HCl 1 gm/ Sodium (Chloride) 250 mls @ 166.667 mls/hr IVPB Q12@0900, 2100 [facility] PRN Reason: Protocol Last Admin: 12/28/16 21:22 Dose: 166.667 mls/hr Insulin Human Regular (Humulin R) 0 units SC Q6H [facility] PRN Reason: Protocol Last Admin: 12/29/16 05:44 Dose: Not Given Loratadine (Claritin) 10 mg PO DAILY [facility] Last Admin: 12/28/16 08:56 Dose: Not Given Magnesium Oxide (Mag-Ox) 400 mg PO BID [facility] Last Admin: 12/29/16 08:41 Dose: 400 mg Ondansetron HCl (Zofran Inj) 4 mg IVP Q6 PRN PRN Reason: Nausea/Vomiting Last Admin: 12/28/16 12:45 Dose: 4 mg Pantoprazole Sodium (Protonix Ec Tab) 40 mg PO DAILY [facility] Last Admin: 12/29/16 08:41 Dose: 40 mg Potassium Chloride (Klor-Con 10) 10 meq PO DAILY [facility] Last Admin: 12/29/16 08:40 Dose: 10 meq Sennosides (Senokot Tab) 8.6 mg PO BID PRN PRN Reason: Constipation Last Admin: 12/23/16 21:40 Dose: 8.6 mg - Labs Labs: 12/28/16 06:46 12/27/16 06:30 PT 13.2 Seconds (9.8-13.1) H 12/23/16 15:00 INR 1.2 (0.9-1.2) 12/23/16 15:00 APTT 18.8 Seconds (25.6-37.1) L 12/23/16 15:00 Assessment and Plan - Assessment and Plan (Free Text) Plan: 76 yo female with chronic pancreatitis admitted with sepsis due to acute on chronic pancreatitis, bilbasilar pneumonia, along with prerenal azotemia secondary to dehydration. 1) Sepsis due to pneumonia and pancreatitis, improved - pt was monitored in ICU-- can be transferred to med Surg -IVF hydration - Norepinephrine discontinued - Monitor vitals closely - Patient awake/alert at this time - DNR/DNI -cont IV Levaquin - blood cultures returned positive gram-positive cocci, will initiate vancomycin starting last night. 2) Acute on chronic pancreatitis - Continue IV fluids - GI consultation with Dr. Mariscal, discussed case - plan for cholangiogram through the GB tube; if the cystic duct and ampulla are open the GB tube could be pulled. - Percutaneous cholecystostomy tube in place and draining well - Heart healthy diet -Pain mgt 3) Prerenal azotemia secondary to dehydration from poor po intake/pancreatitis - BUN/Cr elevated from baseline - IV fluids as above - Recheck BUN/Cr in AM 4) Type 2 Diabetes mellitus - Accuchecks q6h with regular insulin coverage 5) Hypomagnesemia replaced with MgSo4 6) Hypokalemia - Likely due to HCTZ -replace with KCl PO 7) Elevated troponin, 0.2820--> 0.3590 --> 0.3410 - Likely due to type 2 stress demand ischemia from dehydration and infection - Nonspecific T wave abnormality on EKG, no change from previous, [t asymptomatic - no further workup at this time 8) Depression/Anxiety -cont benzo 9) DVT prophylaxis - Heparin SQ 10) GI prophylaxis - Protonix
--- NOTE | 2016-12-29 14:21 | CP.PCM.PN ---
Subjective - Date & Time of Evaluation Date of Evaluation: 12/29/16 Time of Evaluation: 14:18 - Subjective Subjective: Clinically doing well. Tolerating diet .Has cholecystostomy in place which is draining well. Objective - Vital Signs/Intake and Output Vital Signs (last 24 hours): Temp Pulse Resp BP Pulse Ox 97.9 F 89 18 136/84 95 12/29/16 08:38 12/29/16 08:38 12/29/16 08:38 12/29/16 08:38 12/29/16 08:38 Intake and Output: 12/29/16 12/29/16 06:59 18:59 Output Total 125 Balance -125 - Medications Medications: Current Medications Acetaminophen (Tylenol 325mg Tab) 650 mg PO Q6 PRN PRN Reason: Pain, moderate (4-7) Last Admin: 12/28/16 14:35 Dose: 650 mg Alprazolam (Xanax) 0.25 mg PO TID [facility] Stop: 01/02/17 13:01 Last Admin: 12/29/16 12:13 Dose: 0.25 mg Aspirin (Ecotrin) 81 mg PO DAILY [facility] Last Admin: 12/29/16 08:39 Dose: 81 mg Docusate Sodium (Colace) 100 mg PO TID PRN PRN Reason: Constipation Duloxetine HCl (Cymbalta) 60 mg PO HS [facility] Last Admin: 12/28/16 21:23 Dose: 60 mg Ergocalciferol (Drisdol 50,000 Intl Units Cap) 50,000 cap PO MO [facility] Levofloxacin/Dextrose (Levaquin 750mg) 750 mg in 150 mls @ 100 mls/hr IVPB DAILY [facility] Last Admin: 12/29/16 08:40 Dose: 100 mls/hr Vancomycin HCl 1 gm/ Sodium (Chloride) 250 mls @ 166.667 mls/hr IVPB Q12@0900, 2100 [facility] PRN Reason: Protocol Last Admin: 12/29/16 11:32 Dose: 166.667 mls/hr Insulin Human Regular (Humulin R) 0 units SC Q6H [facility] PRN Reason: Protocol Last Admin: 12/29/16 12:10 Dose: Not Given Loratadine (Claritin) 10 mg PO DAILY [facility] Last Admin: 12/28/16 08:56 Dose: Not Given Magnesium Oxide (Mag-Ox) 400 mg PO BID [facility] Last Admin: 12/29/16 08:41 Dose: 400 mg Ondansetron HCl (Zofran Inj) 4 mg IVP Q6 PRN PRN Reason: Nausea/Vomiting Last Admin: 12/28/16 12:45 Dose: 4 mg Pantoprazole Sodium (Protonix Ec Tab) 40 mg PO DAILY [facility] Last Admin: 12/29/16 08:41 Dose: 40 mg Potassium Chloride (Klor-Con 10) 10 meq PO DAILY [facility] Last Admin: 12/29/16 08:40 Dose: 10 meq Sennosides (Senokot Tab) 8.6 mg PO BID PRN PRN Reason: Constipation Last Admin: 12/23/16 21:40 Dose: 8.6 mg Tramadol HCl (Ultram) 100 mg PO Q6 PRN PRN Reason: Pain, moderate (4-7) - Labs Labs: 12/28/16 06:46 12/27/16 06:30 PT 13.2 Seconds (9.8-13.1) H 12/23/16 15:00 INR 1.2 (0.9-1.2) 12/23/16 15:00 APTT 18.8 Seconds (25.6-37.1) L 12/23/16 15:00 - Head Exam Head Exam: ATRAUMATIC - Eye Exam Eye Exam: Normal appearance - ENT Exam ENT Exam: Normal Exam - Respiratory Exam Respiratory Exam: Clear to Ausculation Bilateral - Cardiovascular Exam Cardiovascular Exam: REGULAR RHYTHM, +S1, +S2 - GI/Abdominal Exam GI & Abdominal Exam: Soft. absent: Tenderness Assessment and Plan (1) Chronic cholecystitis Assessment & Plan: Has cholecystomy tube in place Recommend cholangiogram via tube to evaluate status of cystic duct and CBD. Status: Acute
[2016-12-29] MEDS ORDERED: Ergocalciferol 50,000 Intl Units Cap PO SCH (16:09)
[2016-12-29] MEDS ORDERED: Sodium Chloride 0.9% 1,000 ML IV SCH (20:30)
--- NOTE | 2016-12-30 09:12 | CP.PCM.PN ---
Subjective - Date & Time of Evaluation Date of Evaluation: 12/30/16 Time of Evaluation: 09:10 - Subjective Subjective: PATIENT SEEN AND EXAMINED AT BEDSIDE FOR ACUTE OTITIS AND BACTEREMIA. PATIENT IS TOLERATING ANTIBIOTIC SWELL. TO GO FOR CHOLANGIOGRAM TODAY. WE WILL DETERMINE WHETHER OR NOT WE CAN REMOVE CHOLECYSTOSTOMY TUBE. HEMODYNAMICALLY STABLE. NO ACUTE DISTRESS. Objective - Vital Signs/Intake and Output Vital Signs (last 24 hours): Temp Pulse Resp BP Pulse Ox 98.1 F 90 20 119/77 93 L 12/30/16 08:41 12/30/16 08:41 12/30/16 08:41 12/30/16 08:41 12/30/16 08:41 Physical exam: Constitutional- cooperative, awake, alert. Head- NCAT, PERRL Eye- PERRL, normal accommodation ENT- normal exam, MMM. Neck- normal inspection, supple, no JVD Respiratory- CTAB, no wheezes rales rhonchi Cardiovascular- RRR, +S1, +S2 no MRG GI/Abdominal- normal bowel sounds, soft, no mass, no hsm CHOLECYSTOSTOMY BAG DRAINING WELL Skin- warm, dry Extremities Exam- normal capillary refill, normal inspection Neurological Exam- alert, stable gait Psych- normal mood, normal affect Intake and Output: 12/30/16 12/30/16 06:59 18:59 Output Total 260 Balance -260 - Medications Medications: Current Medications Acetaminophen (Tylenol 325mg Tab) 650 mg PO Q6 PRN PRN Reason: Pain, moderate (4-7) Last Admin: 12/29/16 19:35 Dose: 650 mg Alprazolam (Xanax) 0.25 mg PO TID [facility] Stop: 01/02/17 13:01 Last Admin: 12/29/16 16:42 Dose: 0.25 mg Aspirin (Ecotrin) 81 mg PO DAILY [facility] Last Admin: 12/29/16 08:39 Dose: 81 mg Docusate Sodium (Colace) 100 mg PO TID PRN PRN Reason: Constipation Duloxetine HCl (Cymbalta) 60 mg PO HS [facility] Last Admin: 12/29/16 21:18 Dose: 60 mg Ergocalciferol (Drisdol 50,000 Intl Units Cap) 50,000 cap PO MO [facility] Last Admin: 12/29/16 21:15 Dose: 50,000 cap Heparin Sodium (Porcine) (Heparin) 5,000 units SC Q12 [facility] PRN Reason: Protocol Last Admin: 12/29/16 21:16 Dose: 5,000 units Vancomycin HCl 1 gm/ Sodium (Chloride) 250 mls @ 166.667 mls/hr IVPB Q12@0900, 2100 [facility] PRN Reason: Protocol Last Admin: 12/29/16 21:13 Dose: 166.667 mls/hr Sodium Chloride (Sodium Chloride 0.9%) 1,000 mls @ 45 mls/hr IV .[id number] [facility] Stop: 12/30/16 20:26 Last Admin: 12/29/16 21:14 Dose: 45 mls/hr Loratadine (Claritin) 10 mg PO DAILY [facility] Last Admin: 12/28/16 08:56 Dose: Not Given Magnesium Oxide (Mag-Ox) 400 mg PO BID [facility] Last Admin: 12/29/16 16:43 Dose: 400 mg Ondansetron HCl (Zofran Inj) 4 mg IVP Q6 PRN PRN Reason: Nausea/Vomiting Last Admin: 12/28/16 12:45 Dose: 4 mg Pantoprazole Sodium (Protonix Ec Tab) 40 mg PO DAILY [facility] Last Admin: 12/29/16 08:41 Dose: 40 mg Potassium Chloride (Klor-Con 10) 10 meq PO DAILY [facility] Last Admin: 12/29/16 08:40 Dose: 10 meq Sennosides (Senokot Tab) 8.6 mg PO BID PRN PRN Reason: Constipation Last Admin: 12/23/16 21:40 Dose: 8.6 mg Tramadol HCl (Ultram) 100 mg PO Q6 PRN PRN Reason: Pain, moderate (4-7) Last Admin: 12/29/16 23:00 Dose: 100 mg - Labs Labs: 12/28/16 06:46 12/27/16 06:30 PT 13.2 Seconds (9.8-13.1) H 12/23/16 15:00 INR 1.2 (0.9-1.2) 12/23/16 15:00 APTT 18.8 Seconds (25.6-37.1) L 12/23/16 15:00 Assessment and Plan - Assessment and Plan (Free Text) Plan: 76 yo female with chronic pancreatitis admitted with sepsis due to acute on chronic pancreatitis, bilbasilar pneumonia, along with prerenal azotemia secondary to dehydration. 1) Sepsis due to pneumonia and pancreatitis, improved - IVF hydration - Norepinephrine discontinued - Patient awake/alert - DNR/DNI -cont IV Levaquin - blood cultures returned positive gram-positive cocci, will initiate vancomycin , CAN GO HOME ON BACTRIM 2) Acute on chronic pancreatitis - CHOLANGIOGRAM TODAY - Continue IV fluids - GI consultation with Dr. Mariscal, discussed case - plan for cholangiogram through the GB tube; if the cystic duct and ampulla are open the GB tube could be pulled. - Percutaneous cholecystostomy tube in place and draining well - Heart healthy diet -Pain mgt 3) Prerenal azotemia secondary to dehydration from poor po intake/pancreatitis - BUN/Cr elevated from baseline - IV fluids as above - Recheck BUN/Cr in AM 4) Type 2 Diabetes mellitus - Accuchecks q6h with regular insulin coverage 5) Hypomagnesemia replaced with MgSo4 6) Hypokalemia - Likely due to HCTZ -replace with KCl PO 7) Elevated troponin, 0.2820--> 0.3590 --> 0.3410 - Likely due to type 2 stress demand ischemia from dehydration and infection - Nonspecific T wave abnormality on EKG, no change from previous, [t asymptomatic - no further workup at this time 8) Depression/Anxiety -cont benzo 9) DVT prophylaxis - Heparin SQ 10) GI prophylaxis - Protonix
[2016-12-30] MEDS: Pantoprazole 40 mg EC Tab PO SCH (09:17)
[2016-12-30] MEDS: Magnesium Oxide 400 mg Tab UD PO SCH ×2 (09:17→16:35)
[2016-12-30] MEDS: Potassium Chloride 10 mEq ER Tab PO SCH (09:17)
[2016-12-30] MEDS: levoFLOXacin 750 mg in D5W 750 MG/150 ML BAG IVPB SCH (09:34)
--- NOTE | 2016-12-30 12:56 | CP.PCM.PN ---
Subjective - Date & Time of Evaluation Date of Evaluation: 12/30/16 Time of Evaluation: 08:45 - Subjective Subjective: Clinically appears well. Tolerating diet Objective - Vital Signs/Intake and Output Vital Signs (last 24 hours): Temp Pulse Resp BP Pulse Ox 98.1 F 90 20 119/77 93 L 12/30/16 08:41 12/30/16 08:41 12/30/16 08:41 12/30/16 08:41 12/30/16 08:41 Intake and Output: 12/30/16 12/30/16 06:59 18:59 Output Total 260 Balance -260 - Medications Medications: Current Medications Acetaminophen (Tylenol 325mg Tab) 650 mg PO Q6 PRN PRN Reason: Pain, moderate (4-7) Last Admin: 12/29/16 19:35 Dose: 650 mg Alprazolam (Xanax) 0.25 mg PO TID [facility] Stop: 01/02/17 13:01 Last Admin: 12/30/16 12:51 Dose: 0.25 mg Aspirin (Ecotrin) 81 mg PO DAILY [facility] Last Admin: 12/30/16 09:17 Dose: Not Given Docusate Sodium (Colace) 100 mg PO TID PRN PRN Reason: Constipation Duloxetine HCl (Cymbalta) 60 mg PO HS [facility] Last Admin: 12/29/16 21:18 Dose: 60 mg Ergocalciferol (Drisdol 50,000 Intl Units Cap) 50,000 cap PO MO [facility] Last Admin: 12/29/16 21:15 Dose: 50,000 cap Heparin Sodium (Porcine) (Heparin) 5,000 units SC Q12 PATTI PRN Reason: Protocol Last Admin: 12/30/16 09:36 Dose: 5,000 units Vancomycin HCl 1 gm/ Sodium (Chloride) 250 mls @ 166.667 mls/hr IVPB Q12@0900, 2100 PATTI PRN Reason: Protocol Last Admin: 12/30/16 09:35 Dose: 166.667 mls/hr Sodium Chloride (Sodium Chloride 0.9%) 1,000 mls @ 45 mls/hr IV .[id number] [facility] Stop: 12/30/16 20:26 Last Admin: 12/29/16 21:14 Dose: 45 mls/hr Loratadine (Claritin) 10 mg PO DAILY [facility] Last Admin: 12/28/16 08:56 Dose: Not Given Magnesium Oxide (Mag-Ox) 400 mg PO BID [facility] Last Admin: 12/30/16 09:17 Dose: Not Given Ondansetron HCl (Zofran Inj) 4 mg IVP Q6 PRN PRN Reason: Nausea/Vomiting Last Admin: 12/28/16 12:45 Dose: 4 mg Pantoprazole Sodium (Protonix Ec Tab) 40 mg PO DAILY [facility] Last Admin: 12/30/16 09:17 Dose: Not Given Potassium Chloride (Klor-Con 10) 10 meq PO DAILY [facility] Last Admin: 12/30/16 09:17 Dose: Not Given Sennosides (Senokot Tab) 8.6 mg PO BID PRN PRN Reason: Constipation Last Admin: 12/23/16 21:40 Dose: 8.6 mg Tramadol HCl (Ultram) 100 mg PO Q6 PRN PRN Reason: Pain, moderate (4-7) Last Admin: 12/30/16 09:33 Dose: 100 mg - Labs Labs: 12/28/16 06:46 12/27/16 06:30 PT 13.2 Seconds (9.8-13.1) H 12/23/16 15:00 INR 1.2 (0.9-1.2) 12/23/16 15:00 APTT 18.8 Seconds (25.6-37.1) L 12/23/16 15:00 - Constitutional Appears: Other - Head Exam Head Exam: ATRAUMATIC - Eye Exam Eye Exam: Normal appearance - ENT Exam ENT Exam: Mucous Membranes Moist - Respiratory Exam Respiratory Exam: Clear to Ausculation Bilateral - Cardiovascular Exam Cardiovascular Exam: REGULAR RHYTHM - GI/Abdominal Exam GI & Abdominal Exam: Normal Bowel Sounds - Rectal Exam Rectal Exam: NORMAL INSPECTION Assessment and Plan (1) Chronic cholecystitis Assessment & Plan: Clinically doing well. Cholangiogram later today. Status: Acute
[2016-12-30] MEDS ORDERED: Iodixanol 320 MG/ML 100 ML BOTTLE IV ONE (13:42)
--- NOTE | 2016-12-30 14:23 | PCM.SURG1 ---
Surgeon's Initial Post Op Note - Surgeon's Notes Surgeon: Buddy West MD System Admin: None Type of Anesthesia: None Pre-Operative Diagnosis: cholecystitis Operative Findings: patent cystic duct. distal CBD obstruction without small bowel opacification Post-Operative Diagnosis: same Operation Performed: Cholecystostogram Specimen/Specimens Removed: N/A Estimated Blood Loss: EBL {In ML}: 0 Post-Op Condition: Good Date of Surgery/Procedure: 12/30/16 Time of Surgery/Procedure: 14:15
--- NOTE | 2016-12-30 15:06 | VASCULAR ---
PROCEDURE: CHOLECYSTOSTOGRAM CLINICAL HISTORY: 76-year-old female with cholecystitis status post cholecystostomy tube placement is referred to Interventional Radiology for cholecystostogram and possible catheter removal. COMPARISON: Cholecystostogram performed 12/04/2016. PROCEDURE: 1. Cholecystostogram. PRE-PROCEDURE FINDINGS: 1. Indwelling cholecystostomy tube in the right upper quadrant. POST-PROCEDURE FINDINGS: 1. No obvious cholelithiasis. Patent cystic duct and antegrade filling of CBD with distal obstruction. INTERVENTIONAL RADIOLOGIST: Buddy West M.D. the attending was present for the entire procedure. ANESTHESIA: None. MEDICATION: None. COMPLICATIONS: None. PROCEDURE DESCRIPTION AND FINDINGS: The risks, benefits, alternatives and possible complications of the procedure were fully discussed; all questions were answered and informed consent was obtained. The patient was brought into the interventional suite and a pre-procedure 'time-out' was performed. The patient was placed on the fluoroscopy table in the supine position. The right upper quadrant was prepped and draped in the usual sterile fashion. Maximal sterile barrier precautions were maintained throughout the entire procedure. Preliminary fluoroscopic automatic riveting machine operator images demonstrated an indwelling cholecystostomy tube in the right upper quadrant. Cholecystostogram performed via the indwelling cholecystostomy tube demonstrated no obvious cholelithiasis. The cystic duct was widely patent and antegrade filling of the CBD was noted with distal obstruction. Contrast did not progress into the small bowel on delayed imaging. The patient tolerated the procedure well without immediate post-procedure complications and was transferred back to the floor in stable condition. IMPRESSION: CHOLECYSTOSTOGRAM DEMONSTRATED PATENT CYSTIC DUCT WITHOUT FLOW OF CONTRAST INTO SMALL BOWEL COMPATIBLE WITH STABLE DISTAL CBD OBSTRUCTION. CHOLECYSTOSTOMY TUBE WAS NOT REMOVED.
[2016-12-30] MEDS ORDERED: Simethicone 80 mg Chewtab PO STA (20:29)
[2016-12-31] MEDS: Pantoprazole 40 mg EC Tab PO SCH (10:08)
[2016-12-31] MEDS: Potassium Chloride 10 mEq ER Tab PO SCH (10:08)
[2016-12-31] MEDS: Magnesium Oxide 400 mg Tab UD PO SCH ×2 (10:08→17:20)
--- NOTE | 2016-12-31 14:42 | CP.PCM.DIS ---
Provider - Provider Date of Admission: 12/23/16 15:55 Attending physician: Severiano Sinclair DO Primary care physician: Dr. Coffey Consults: GI consult surgery consult Time Spent in preparation of Discharge (in minutes): 20 Hospital Course - Lab Results Lab Results: Micro Results 12/30/16 11:21 Blood Blood Culture - Preliminary NO GROWTH AFTER 24 HOURS 12/30/16 11:26 Blood Blood Culture - Preliminary NO GROWTH AFTER 24 HOURS 12/27/16 06:30 Blood Blood Culture - Preliminary NO GROWTH AFTER 4 DAYS 12/23/16 15:00 Blood Blood Culture - Final NO GROWTH AFTER 5 DAYS 12/23/16 15:00 Blood Gram Stain - Final TEST NOT PERFORMED 12/26/16 18:51 Naris MRSA Culture (Admit) - Final MRSA NOT DETECTED 12/23/16 15:30 Blood S.aureus & Coag-Neg Staph PNA FISH - Final 12/23/16 15:30 Blood Blood Culture - Final Coagulase Neg Staphylococcus 12/23/16 15:30 Blood Gram Stain - Final 12/23/16 19:00 Nose MRSA Culture (Admit) - Final MRSA NOT DETECTED 12/23/16 13:10 Urine Urine Culture - Final No Growth (<1,000 CFU/ML) Most Recent Lab Values WBC 7.1 K/uL (4.8-10.8) 12/28/16 06:46 RBC 3.22 Mil/uL (3.80-5.20) L 12/28/16 06:46 Hgb 9.4 g/dL (12.0-16.0) L 12/28/16 06:46 Hct 28.7 % (34.0-47.0) L 12/28/16 06:46 MCV 89.3 fl (81.0-99.0) 12/28/16 06:46 MCH 29.3 pg (27.0-31.0) 12/28/16 06:46 MCHC 32.8 g/dL (33.0-37.0) L 12/28/16 06:46 RDW 17.1 % (11.5-14.5) H 12/28/16 06:46 Plt Count 325 K/uL (130-400) 12/28/16 06:46 MPV 8.0 fl (7.2-11.7) 12/28/16 06:46 Neut % (Auto) 58.7 % (50.0-75.0) 12/28/16 06:46 Lymph % (Auto) 25.8 % (20.0-40.0) 12/28/16 06:46 [place] % (Auto) 10.8 % (0.0-10.0) H 12/28/16 06:46 Eos % (Auto) 3.8 % (0.0-4.0) 12/28/16 06:46 Baso % (Auto) 0.9 % (0.0-2.0) 12/28/16 06:46 Neut # 4.2 K/uL (1.8-7.0) 12/28/16 06:46 Lymph # 1.8 K/uL (1.0-4.3) 12/28/16 06:46 [place]gs # 0.8 K/uL (0.0-0.8) 12/28/16 06:46 Eos # 0.3 K/uL (0.0-0.7) 12/28/16 06:46 Baso # 0.1 K/uL (0.0-0.2) 12/28/16 06:46 Neutrophils % (Manual) 79 % (42-75) H 12/23/16 15:00 Lymphocytes % (Manual) 14 % (20-50) L 12/23/16 15:00 Monocytes % (Manual) 6 % (0-10) 12/23/16 15:00 Basophils % (Manual) 1 % (0-2) 12/23/16 15:00 Platelet Estimate Slightly increased (NORMAL) H 12/23/16 15:00 Large Platelets Present 12/23/16 15:00 Giant Platelets Present 12/23/16 15:00 Poikilocytosis (manual Slight 12/23/16 15:00 Anisocytosis (manual) Moderate 12/23/16 15:00 Tear Drop Cells Slight 12/23/16 15:00 PT 13.2 Seconds (9.8-13.1) H 12/23/16 15:00 INR 1.2 (0.9-1.2) 12/23/16 15:00 APTT 18.8 Seconds (25.6-37.1) L 12/23/16 15:00 pO2 36 mm/Hg (30-55) 12/23/16 15:06 VBG pH 7.28 (7.32-7.43) L 12/23/16 15:06 VBG pCO2 44 mmHg (40-60) 12/23/16 15:06 VBG HCO3 19.5 mmol/L 12/23/16 15:06 VBG Total CO2 22.1 mmol/L (22-28) 12/23/16 15:06 VBG O2 Sat (Calc) 70.8 % (40-65) H 12/23/16 15:06 VBG Base Excess -5.9 mmol/L (0.0-2.0) L 12/23/16 15:06 VBG Potassium 4.0 mmol/L (3.6-5.2) 12/23/16 15:06 Sodium 129.0 mmol/L (132-148) L 12/23/16 15:06 Chloride 95.0 mmol/L (98-107) L 12/23/16 15:06 Glucose 117 mg/dL (65-105) H 12/23/16 15:06 Lactate 1.3 mmol/L (0.7-2.1) 12/23/16 15:06 FiO2 21.0 % 12/23/16 15:06 Sodium 142 mmol/l (132-148) 12/27/16 06:30 Potassium 3.6 MMOL/L (3.6-5.0) 12/27/16 06:30 Chloride 106 mmol/L (98-107) 12/27/16 06:30 Carbon Dioxide 29 mmol/L (22-30) 12/27/16 06:30 Anion Gap 11 (10-20) 12/27/16 06:30 BUN 16 mg/dl (7-17) 12/27/16 06:30 Creatinine 0.7 mg/dL (0.7-1.2) 12/27/16 06:30 Est GFR ( Amer) > 60 12/27/16 06:30 Est GFR (Non-Af Amer) > 60 12/27/16 06:30 POC Glucose (mg/dL) 118 mg/dL (65-110) H 12/29/16 15:35 Random Glucose 96 mg/dL (65-105) 12/27/16 06:30 Lactic Acid 0.9 MMOL/L (0.7-2.1) 12/25/16 04:20 Calcium 7.5 mg/dL (8.4-10.2) L 12/27/16 06:30 Phosphorus 3.1 mg/dl (2.5-4.5) 12/25/16 04:20 Magnesium 1.6 MG/DL (1.6-2.3) 12/26/16 04:40 Total Bilirubin 0.4 mg/dl (0.2-1.3) 12/29/16 05:30 Direct Bilirubin 0.4 mg/ml (0.0-0.4) 12/29/16 05:30 AST 45 U/L (14-36) H 12/29/16 05:30 ALT 31 U/L (9-52) 12/29/16 05:30 Alkaline Phosphatase 101 U/L (38-126) 12/29/16 05:30 Troponin I 0.0850 ng/mL (0.00-0.120) 12/27/16 06:30 NT-Pro-B Natriuret Pep 50194 pg/ml (0-900) H 12/23/16 15:00 Total Protein 6.2 G/DL (6.3-8.2) L 12/29/16 05:30 Albumin 2.6 g/dL (3.5-5.0) L 12/29/16 05:30 Globulin 3.6 gm/dL (2.2-3.9) 12/29/16 05:30 Albumin/Globulin Ratio 0.7 (1.0-2.1) L 12/29/16 05:30 Lipase 1150 U/L (23-300) H 12/27/16 06:30 Venous Blood Potassium 4.0 mmol/L (3.6-5.2) 12/23/16 15:06 Urine Color Jocelyne (YELLOW) 12/23/16 13:10 Urine Clarity Cloudy (Clear) 12/23/16 13:10 Urine pH 5.0 (5.0-8.0) 12/23/16 13:10 Ur Specific [place] 1.018 (1.003-1.030) 12/23/16 13:10 Urine Protein 30 mg/dL (NEGATIVE) 12/23/16 13:10 Urine Glucose (UA) Neg mg/dL (Normal) 12/23/16 13:10 Urine Ketones Negative mg/dL (NEGATIVE) 12/23/16 13:10 Urine Blood Negative (NEGATIVE) 12/23/16 13:10 Urine Nitrate Negative (NEGATIVE) 12/23/16 13:10 Urine Bilirubin Negative (NEGATIVE) 12/23/16 13:10 Urine Urobilinogen 0.2-1.0 mg/dL (0.2-1.0) 12/23/16 13:10 Ur Leukocyte Esterase Trace Marco A/uL (Negative) 12/23/16 13:10 Urine RBC (Auto) 3 /hpf (0-3) 12/23/16 13:10 Urine Microscopic WBC 8 /hpf (0-5) H 12/23/16 13:10 Ur Squamous Epith Cells 1 /hpf (0-5) 12/23/16 13:10 Uric Acid Crystals Occ /hpf (<OCC) H 12/23/16 13:10 Urine Bacteria Rare (<OCC) 12/23/16 13:10 Hyaline Casts 0-2 /hpf (0-2) 12/23/16 13:10 Urine Yeast (Budding) Mod /hpf (NEGATIVE) H 12/23/16 13:10 Influenza Typ A,B (EIA) Negative for flu a/b (NEGATIVE) 12/23/16 12:30 - Hospital Course Hospital Course: 76 yo female with PMH of chronic pancreatitis,ampullary diverticulum, status post PTC tube placement by interventional radiology in October 2016, type 2 diabetes mellitus, hypertension,presented to the emergency department with the complaint of 3 days of dry cough and congestion. The patient was also complaining of pain described as sharp and epigastric and underneath the right breast. she was found to be hypothermic with Temp 96 and hypotensive BP SBP 89 and was initially admitted in ICU with diagnosis of sepsis ,for close monitoring and treatment. She was started on fluid resuscitation and IV antibiotics.Cultures were sent and CXR showed possible bi basilar infiltrates.Her Laboratory results were significant for white count of 22.2, neutrophil percentage of 84.5, BUN of 92, creatinine of 2.0, GFR of 24 , magnesium significantly decreased at 1.2, troponin elevated at 0.2820, BNP of 14 ,100, and elevated lipase of 846. Her blood culture came back as positive for staph coag negative x 1 bottle -- most likely contamination patient clinically improved GI and surgery were consulted and recommended cholangiography to evaluated cystic duct and CBD. Cholangiography showed patent cystic duct and and stable distal CBD obstruction . After discussion with surgery and Gi was recommended patient to continue and finish current treatment for Pneumonia nad follow up with surgery and Gi for outpatient schedule for ERCP and removal of cholecystostomy tube. Patient will be discharged to [facility] for physical therapy because she has poor mobility and is 2 people assist . Will d/c on bactrim Po for 7 more days follow up with surgery and GI as outpatient 1. Sepsis due to pneumonia and pancreatitis, improved POA Given IVf , pressors short duration , IV antibiotics was started on levaquine IV initilaly and switched to vancomycin . Will d/c on Bactrim PO for 7 more days 2. Acute on chronic pancreatitis Percutaneous cholecystostomy tube in place and draining well Cholangiogram showed patent cystic duct and stable distal CBD obstruction patient will need ERCP after pneumoni atreated with possible removal of cholecystostomy tube Will follow up with GI and surgery as outpatient 3. Prerenal azotemia secondary to dehydration from poor po intake/pancreatitis improved after IVF 4.Type 2 Diabetes mellitus controlled Accuchecks q6h with regular insulin coverage 5.Hypomagnesemia replaced with MgSo4 6. Hypokalemia Likely due to HCTZ replaced with KCl PO 7. Elevated troponin, 0.2820--> 0.3590 --> 0.3410 Likely due todemand ischemia from dehydration and infection no further workup at this time 8. Depression/Anxiety cont Cymbalta 9. 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 Her baseline hgb is around 9 Stable 10.Multiple erosions and bruises on her buttocks secondary to MASD from incontinence wound care nurse consulted [facility] recommended frequent repositioning 11. Overweight BMI 33 Discharge Exam - Head Exam Head Exam: ATRAUMATIC, NORMOCEPHALIC - Eye Exam Eye Exam: EOMI, Normal appearance, PERRL Pupil Exam: NORMAL ACCOMODATION - ENT Exam ENT Exam: Mucous Membranes Moist, Normal Exam - Neck Exam Neck exam: Full Rom, Normal Inspection - Respiratory Exam Respiratory Exam: Clear to PA & Lateral, NORMAL BREATHING PATTERN. absent: Rhonchi, Wheezes, Respiratory Distress - Cardiovascular Exam Cardiovascular Exam: REGULAR RHYTHM, +S1, +S2. absent: JVD - GI/Abdominal Exam GI & Abdominal Exam: Normal Bowel Sounds, Soft. absent: Distended, Guarding, Rebound, Tenderness Additional comments: Cholecystostomy tube in place to RUQ draining well - Rectal Exam Rectal Exam: Deferred - Extremities Exam Extremities exam: normal capillary refill, normal inspection, pedal pulses present - Back Exam Back exam: NORMAL INSPECTION - Neurological Exam Neurological exam: Alert, CN II-XII Intact, Oriented x3 - Psychiatric Exam Psychiatric exam: Normal Affect - Skin Skin Exam: Dry, Pallor, Warm Additional comments: multipl ebruisise and moisture related skin maceration to buttocks Discharge Plan - Discharge Medications Prescriptions: ALPRAZolam [Xanax] 0.25 mg PO TID #90 tab Sulfamethoxazole/Trimethoprim [Bactrim DS 800 mg-160 mg] 1 tab PO Q12 #14 tab traMADol [Ultram] 100 mg PO Q6 PRN #20 tab PRN Reason: Pain, Moderate (4-7) traZODone [Desyrel] 50 mg PO HS #30 tab - Follow Up Plan Condition: IMPROVED Disposition: TRANSF TO SNF Patient education suggested?: Yes Instructions: Dehydration (GEN), Sepsis (GEN) Additional Instructions: Right abdomen T tube attach to leg bAG . Referrals: Kyle Reddy MD [Staff Provider] - Roderick Coffey MD [Medical Doctor] -
[2016-12-31 16:22] VITALS: RESP 20
[2017-01-01 00:57] VITALS: BP 146/82; PULSE 87; TEMP 97.3; O2SAT 95
== END 2017-01-01 01:00 | DRG 871 ==
LOC: H.ER 11:42 → H.ERHOLD 15:55 → H.ICU/CCU 19:28 → H.MEDSURG1 12-26 11:14
PROVIDERS: ADMIT Internal Medicine; ATTEND Internal Medicine
PROC: 02HV33Z Insertion of Infusion Device into Superior Vena Cava, Percutaneous Approach (ICD-10-PCS; principal; 2016-12-23)
PROC: B518ZZA Fluoroscopy of Superior Vena Cava, Guidance (ICD-10-PCS; 2016-12-23)
PROC: B548ZZA Ultrasonography of Superior Vena Cava, Guidance (ICD-10-PCS; 2016-12-23)
PROC: 3E04329 Introduction of Other Anti-infective into Central Vein, Percutaneous Approach (ICD-10-PCS; 2016-12-23)
PROC: BF10YZZ Fluoroscopy of Bile Ducts using Other Contrast (ICD-10-PCS; 2016-12-30)
DX: A41.9 Sepsis, unspecified organism (principal); J18.9 Pneumonia, unspecified organism; L89.312 Pressure ulcer of right buttock, stage 2; N17.9 Acute kidney failure, unspecified; I95.89 Other hypotension; J44.0 Chronic obstructive pulmonary disease with (acute) lower respiratory infection; K80.11 Calculus of gallbladder with chronic cholecystitis with obstruction; E86.0 Dehydration; E11.9 Type 2 diabetes mellitus without complications; D63.8 Anemia in other chronic diseases classified elsewhere; K85.90 Acute pancreatitis without necrosis or infection, unspecified; K86.1 Other chronic pancreatitis; M79.7 Fibromyalgia; G89.29 Other chronic pain; E87.6 Hypokalemia; E83.42 Hypomagnesemia; I10 Essential (primary) hypertension; K57.10 Diverticulosis of small intestine without perforation or abscess without bleeding; K21.9 Gastro-esophageal reflux disease without esophagitis; M81.0 Age-related osteoporosis without current pathological fracture; F41.9 Anxiety disorder, unspecified; F32.9 Major depressive disorder, single episode, unspecified; E66.3 Overweight; Z68.33 Body mass index [BMI] 33.0-33.9, adult; H66.90 Otitis media, unspecified, unspecified ear; H40.9 Unspecified glaucoma; Z66 Do not resuscitate; Z79.82 Long term (current) use of aspirin; Z88.0 Allergy status to penicillin; Z86.010 Personal history of colon polyps; Z87.01 Personal history of pneumonia (recurrent)

== ENCOUNTER 2017-01-12 12:57 | Inpatient (IN) | payer MEDICARE, BC ==
[2017-01-12 12:57] VITALS: PULSE 171
[2017-01-12 13:01] VITALS: BMI 33.3
[2017-01-12 15:00] LABS: BASO % 0.6 % (0.0-2.0); EOS # 0.6 K/uL (0.0-0.7); EOS % 8.3 % (0.0-4.0); HEMATOCRIT 33.7 % (34.0-47.0); LYMPH # 2.2 K/uL (1.0-4.3); LYMPH % 29.1 % (20.0-40.0); MEAN CORPUSCULAR HEMOGLOBIN 28.9 pg (27.0-31.0); MEAN CORPUSCULAR HGB CONC 31.1 g/dL (33.0-37.0); MEAN PLATELET VOLUME 8.2 fl (7.2-11.7); MONO # 0.8 K/uL (0.0-0.8); MONO % 10.6 % (0.0-10.0); NEUT # 3.9 K/uL (1.8-7.0); NEUT % 51.4 % (50.0-75.0); NRBC % 0.2 % (0.0-0.0); RED CELL DISTRIBUTION WIDTH 18.9 % (11.5-14.5); WHITE BLOOD COUNT 7.6 K/uL (4.8-10.8)
--- NOTE | 2017-01-12 15:06 | ED PDOC ---
HPI: Abdomen Time Seen by Provider: 01/12/17 13:59 Chief Complaint (Nursing): GI Problem Chief Complaint (Provider): Dislodged PTC tube History Per: Patient, Other (long-term records) History/Exam Limitations: no limitations Onset/Duration Of Symptoms: Hrs Outside of [place] travel?: No Current Symptoms Are (Timing): Still Present Additional Complaint(s): 76yo female with past medical history of anxiety, COPD, hypertension, pancreatitis, fibromyalgia, indwelling PTC tube placed in October 2016 due to chronic pancreatitis and ampullary diverticulitis, presents to ED from [facility] as her PTC tube has completely dislodged. Patient without any medical complaints. GI: Dr. Mariscal Past Medical History Reviewed: Historical Data, Nursing Documentation, Vital Signs Vital Signs: Last Vital Signs Temp 98 F 01/12/17 13:01 Pulse 107 H 01/12/17 13:01 Resp 17 01/12/17 13:01 BP 137/82 01/12/17 13:01 Pulse Ox 95 01/12/17 15:16 - Medical History PMH: Anxiety, Arthritis, Bronchitis, Cardia Arrhythmia (Flutter), Colonic Polyps , COPD, Depression, Fibromyalgia, Fractures, HTN, Osteoporosis, Pancreatitis, Peripheral Edema (+2), Pneumonia (5 YRS AGO), Chronic Pain (bilateral LE) Denies: Anemia, Diabetes, Hepatitis, HIV, Chronic Kidney Disease, Sexually Transmitted Disease - Surgical History Surgical History: Carotid Endarterectomy, Endoscopy Denies: Pacemaker - Family History Family History: States: No Known Family Hx, Unknown Family Hx - Living Arrangements Living Arrangements: [facility] - Immunization History Hx Tetanus Toxoid Vaccination: No Hx Influenza Vaccination: No Hx Pneumococcal Vaccination: No - Home Medications Home Medications: Ambulatory Orders Medication Instructions Recorded DULoxetine [Cymbalta] 60 mg PO HS #30 ecc 10/23/16 Ergocalciferol (Vitamin D2) 50,000 unit PO MO 10/27/16 [Vitamin D2] Aspirin [Ecotrin] 81 mg PO DAILY 12/23/16 Cetirizine HCl [All Day Allergy 10 mg PO DAILY 12/23/16 Relief] Docusate [Colace] 100 mg PO TID PRN 12/23/16 Esomeprazole Magnesium [Nexium] 40 mg PO DAILY 12/23/16 Ondansetron [Zofran Tab] 4 mg PO Q8H PRN 12/23/16 Sennosides [Senna] 8.6 mg PO BID PRN 12/23/16 ALPRAZolam [Xanax] 0.25 mg PO TID #90 tab 12/30/16 Acetaminophen [Tylenol 325mg tab] 650 mg PO Q6 PRN tab 12/30/16 traMADol [Ultram] 100 mg PO Q6 PRN #20 tab 12/30/16 traZODone [Desyrel] 50 mg PO HS #30 tab 12/30/16 - Allergies Allergies/Adverse Reactions: Allergies Allergy/AdvReac Type Severity Reaction Status Date / Time Penicillins Allergy RASH Verified 01/12/17 13:03 Review of Systems ROS Statement: Except As Marked, All Systems Reviewed And Found Negative Constitutional: Negative for: Fever, Chills Gastrointestinal: Positive for: Other (dislodged PTC tube). Negative for: Nausea, Vomiting, Abdominal Pain Physical Exam - Reviewed Nursing Documentation Reviewed: Yes Vital Signs Reviewed: Yes - Physical Exam Appears: Positive for: Well, Non-toxic, No Acute Distress Skin: Positive for: Normal Color Eye Exam: Positive for: Normal appearance Neck: Positive for: Supple Cardiovascular/Chest: Positive for: Regular Rate, Rhythm Respiratory: Positive for: Normal Breath Sounds. Negative for: Respiratory Distress Gastrointestinal/Abdominal: Positive for: Other (dislodged PTC tube) Neurologic/Psych: Positive for: Alert, Oriented. Negative for: Motor/Sensory Deficits - Laboratory Results Result Diagrams: 01/12/17 14:54 01/12/17 14:54 - ECG O2 Sat by Pulse Oximetry: 95 (RA) Medical Decision Making Medical Decision Making: Time: 1428 Impression: Dislodged PTC tube Plan: -- Labs Reassess Time: [address] Mariscal who requests US Biliary Tree; also requesting a consult with Dr. Castro, surgeon yeast fermentation attendant. Time: 1520 Case discussed with nursing surgical services director who states patient needs a sphincterotomy. Patient to be admitted under Dr. Diego, medicine yeast fermentation attendant. Scribe Attestation: Documented by Mary Hernandez acting as a scribe for Daniel Estevez MD. Provider Attestation: All medical record entries made by the Scribe were at my direction and personally dictated by me. I have reviewed the chart and agree that the record accurately reflects my personal performance of the history, physical exam, medical decision making, and the department course for this patient. I have also personally directed, reviewed, and agree with the discharge instructions and disposition. Disposition - Disposition Forms: My [employer] ([facility])
[2017-01-12 15:14] LABS: ALB/GLOB RATIO 0.9 (1.0-2.1); ALKALINE PHOSPHATASE 86 U/L (38-126); ALT/SGPT 40 U/L (9-52); AST/SGOT 56 U/L (14-36); BILIRUBIN,TOTAL 0.3 mg/dl (0.2-1.3); BLOOD UREA NITROGEN 18 mg/dl (7-17); CALCIUM 8.1 mg/dL (8.4-10.2); CARBON DIOXIDE 25 mmol/L (22-30); CHLORIDE 106 mmol/L (98-107); GFR AFRICAN-AMERICAN > 60; GLUCOSE,RANDOM 110 mg/dL (65-105); POTASSIUM 4.3 MMOL/L (3.6-5.0); SODIUM 139 mmol/l (132-148)
[2017-01-12] MEDS ORDERED: Sodium Chloride 0.9% 1,000 ML IV STA (15:27)
--- NOTE | 2017-01-12 18:30 | US ---
HISTORY: focus on biliary tree and gallbladder COMPARISON: CT abdomen and pelvis without IV contrast performed 10/27/16 TECHNIQUE: Sonographic evaluation of the abdomen. FINDINGS: Examination markedly limited due to habitus as well as patient condition. LIVER: Measures 19.1 cm in sagittal dimension. Echogenic liver may be seen in setting of hepatic parenchymal disease or fatty infiltration. Nodular hepatic contour. No focal hepatic mass identified. The main portal vein appears patent with normal directional flow. No intrahepatic bile duct dilatation. GALLBLADDER: Gallbladder distension. 6 x 2 x 5 mm probable gallbladder polyp. No gallstones. No gallbladder wall thickening. Negative sonographic Potter's sign as assessed by the medicine assistant. COMMON BILE DUCT: Measures 11 mm. PANCREAS: Not adequately visualized. Limited visualization of the pancreas demonstrates heterogeneity. RIGHT KIDNEY: Measures 10.8 x 4.3 x 6.5cm. No obstructing calculus or hydronephrosis identified. LEFT KIDNEY: Measures 11.5 x 3.7 x 4.3cm. No obstructing calculus or hydronephrosis identified. SPLEEN: Measures approximately 11.3 x 3.6 x 3.4 cm. AORTA: Not well-visualized. IVC: Not well-visualized. OTHER FINDINGS: None. IMPRESSION: Markedly dilated common bile duct. Gallbladder distension. No evidence of gallstones or gallbladder sludge. No evidence of gallbladder wall thickening or pericholecystic edema. Negative sonographic Potter's sign as assessed by the medicine assistant. 6 mm probable gallbladder polyp. No consensus exist regarding management of polyps in the size range. Current recommendations indicate continued surveillance with serial follow-up imaging at 3, 6, and 12 months. Mild hepatomegaly. Echogenic liver may be seen in setting of hepatic parenchymal disease or fatty infiltration. Nodular hepatic contour may be seen in the setting of cirrhosis. Correlate clinically. The pancreas is not well-visualized. Limited visualization of the pancreas reveals evidence of heterogeneity consistent with previously demonstrated appearance. Continued follow-up as indicated. Additional findings as above.
--- NOTE | 2017-01-12 19:49 | CP.PCM.CON ---
<Isabelle Sanderson - Last Filed: 01/13/17 08:47> History of Present Illness - History of Present Illness History of Present Illness: General Surgery Dr. Reddy 76 y/o F w/ extensive PMHx presents to the ED from longterm for dislodged josue tube. Pt was recently admitted and discharged from [facility] for pneumonia. 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 Pt denies F/C, N/V, abd pain, D/C. PMHx: chronic pancreatitis, DM2, HTN, duodenal diverticulum, COPD, aflutter, anxiety, depression Meds: reviewed in chart ALL: PCN PSHx: hand surgery, lap ovarian cystectomy, CEA SHx: denies tobacco, EtOH, drug use FHx: non-contributory Review of Systems - Review of Systems All systems: reviewed and no additional remarkable complaints except (see hpi) Past Patient History - Infectious Disease Hx of Infectious Diseases: None - Tetanus Immunizations Tetanus Immunization: Unknown - Past Medical History & Family History Past Medical History?: Yes - Past Social History Smoking Status: Never Smoked - CARDIAC Hx Cardia Arrhythmia: Yes (Flutter) Hx Hypertension: Yes Hx Pacemaker: No Hx Peripheral Edema: Yes (+2) - PULMONARY Hx Bronchitis: Yes Hx Chronic Obstructive Pulmonary Disease (COPD): Yes Hx Pneumonia: Yes (5 YRS AGO) - HEENT Hx Glaucoma: Yes - RENAL Hx Chronic Kidney Disease: No - ENDOCRINE/METABOLIC Hx Endocrine Disorders: No - HEMATOLOGICAL/ONCOLOGICAL Hx Anemia: No Hx Human Immunodeficiency Virus (HIV): No - INTEGUMENTARY Hx Dermatological Problems: No - MUSCULOSKELETAL/RHEUMATOLOGICAL Hx Arthritis: Yes Hx Fractures: Yes Hx Osteoporosis: Yes - GASTROINTESTINAL Hx Pancreatitis: Yes - GENITOURINARY/GYNECOLOGICAL Hx Sexually Transmitted Disorders: No - PSYCHIATRIC Hx Anxiety: Yes Hx Depression: Yes - SURGICAL HISTORY Hx Carotid Endarterectomy: Yes - ANESTHESIA Hx Anesthesia: Yes Hx Anesthesia Reactions: No Hx Malignant Hyperthermia: No Meds Allergies/Adverse Reactions: Allergies Allergy/AdvReac Type Severity Reaction Status Date / Time Penicillins Allergy RASH Verified 01/12/17 13:03 - Medications Medications: Current Medications Sodium Chloride (Sodium Chloride 0.9%) 1,000 mls @ 150 mls/hr IV .[id number] STA Stop: 01/12/17 22:06 Last Admin: 01/12/17 16:22 Dose: 150 mls/hr Physical Exam - Constitutional Appears: Non-toxic, No Acute Distress, Chronically Ill - Head Exam Head Exam: NORMAL INSPECTION - Eye Exam Eye Exam: Normal appearance - ENT Exam ENT Exam: Mucous Membranes Moist - Respiratory Exam Respiratory Exam: NORMAL BREATHING PATTERN. absent: Accessory Muscle Use, Respiratory Distress - Cardiovascular Exam Cardiovascular Exam: absent: Bradycardia, Tachycardia - GI/Abdominal Exam GI & Abdominal Exam: Soft, Tenderness (RUQ). absent: Distended, Guarding, Rebound - Extremities Exam Extremities exam: Positive for: pedal edema - Neurological Exam Neurological exam: Alert - Psychiatric Exam Psychiatric exam: Normal Affect, Normal Mood - Skin Skin Exam: Dry, Intact, Warm Results - Vital Signs Recent Vital Signs: Last Vital Signs Temp 98 F 01/12/17 13:01 Pulse 90 01/12/17 15:36 Resp 17 01/12/17 15:36 BP 139/70 01/12/17 15:36 Pulse Ox 98 01/12/17 15:36 - Labs Result Diagrams: 01/13/17 06:05 01/13/17 06:05 Labs: Laboratory Results - last 24 hr 01/12/17 01/12/17 01/12/17 14:54 14:54 14:54 WBC 7.6 RBC 3.62 L Hgb 10.5 L Hct 33.7 L MCV 93.0 D MCH 28.9 MCHC 31.1 L RDW 18.9 H Plt Count 325 MPV 8.2 Neut % (Auto) 51.4 Lymph % (Auto) 29.1 [place] % (Auto) 10.6 H Eos % (Auto) 8.3 H Baso % (Auto) 0.6 Neut # 3.9 Lymph # 2.2 [place] # 0.8 Eos # 0.6 Baso # 0.0 PT 12.8 INR 1.1 Sodium 139 Potassium 4.3 Chloride 106 Carbon Dioxide 25 Anion Gap 12 BUN 18 H Creatinine 0.7 Est GFR ( Amer) > 60 Est GFR (Non-Af Amer) > 60 Random Glucose 110 H Calcium 8.1 L Total Bilirubin 0.3 AST 56 H D ALT 40 Alkaline Phosphatase 86 Total Protein 7.0 Albumin 3.2 L D Globulin 3.7 Albumin/Globulin Ratio 0.9 L Blood Type Antibody Screen BBK History Checked 01/12/17 14:54 WBC RBC Hgb Hct MCV MCH MCHC RDW Plt Count MPV Neut % (Auto) Lymph % (Auto) [place] % (Auto) Eos % (Auto) Baso % (Auto) Neut # Lymph # [place] # Eos # Baso # PT INR Sodium Potassium Chloride Carbon Dioxide Anion Gap BUN Creatinine Est GFR ( Amer) Est GFR (Non-Af Amer) Random Glucose Calcium Total Bilirubin AST ALT Alkaline Phosphatase Total Protein Albumin Globulin Albumin/Globulin Ratio Blood Type A NEGATIVE Antibody Screen Negative BBK History Checked No verified bt Assessment & Plan - Assessment and Plan (Free Text) Assessment: 76 y/o F w/ dislodges josue tube - recommend GI consult for possible ERCP/EUS - may need josue tube replaced - advance diet as tolerated - no surgical intervention at this time - GI/DVT PPx Pt discussed w/ Dr. Barry Sanderson DO PGY2 <Kyle Reddy - Last Filed: 01/16/17 23:19> Results - Vital Signs Recent Vital Signs: Last Vital Signs Temp 97.5 F L 01/16/17 08:39 Pulse 75 01/16/17 09:52 Resp 20 01/16/17 08:39 BP 119/74 01/16/17 09:52 Pulse Ox 92 L 01/16/17 08:39 - Labs Result Diagrams: 01/16/17 06:15 01/16/17 06:15 Labs: Laboratory Results - last 24 hr 01/16/17 01/16/17 06:15 06:15 WBC 6.0 RBC 3.48 L Hgb 10.2 L Hct 32.8 L MCV 94.2 MCH 29.3 MCHC 31.0 L RDW 18.3 H Plt Count 301 Sodium 140 Potassium 4.2 Chloride 101 Carbon Dioxide 33 H Anion Gap 10 BUN 12 Creatinine 1.0 Est GFR ( Amer) > 60 Est GFR (Non-Af Amer) 54 Random Glucose 105 Calcium 8.6 Total Bilirubin 0.8 AST 290 H D ALT 144 H Alkaline Phosphatase 296 H Total Protein 6.7 Albumin 3.2 L Globulin 3.5 Albumin/Globulin Ratio 0.9 L Attending/Attestation - Attestation I have personally seen and examined this patient.: Yes I have fully participated in the care of the patient.: Yes I have reviewed all pertinent clinical information: Yes Notes (Text): Pt was seen and examined at bedside Agree with above note and assessment Pt with Dilodged Cholecystostomy tube with CBD stone Labs and radiology reviewed Abdomen is Mild tender. NPO, IVF GI consult for EGD/ERCP Repeat labs in am c.w current mx Plan d/w pt in detail Risk and benefit explained in detail.
--- NOTE | 2017-01-12 20:04 | CP.PCM.HP ---
History of Present Illness - History of Present Illness History of Present Illness: CC: Dislodged T-Tube History of Present Illness: A 76 y/o F w/ extensive PMHx presents to the ED from skilled nursing for dislodged Percutaneous Cholecystestomy Tube (T-Tube) . Pt was recently admitted and discharged from [facility] for pneumonia. During that admission, pt had repeat cholangiogram via josue tube which showed continued blockage of the CBD at the Ampulla of vater. Pt denies Fever/Chills, N/V, abd pain, D/C. Present on Admission - Present on Admission Any Indicators Present on Admission: No History of DVT/PE: No History of Uncontrolled Diabetes: No Urinary Catheter: No Decubitus Ulcer Present: No Review of Systems - Review of Systems All systems: reviewed and no additional remarkable complaints except Past Patient History - Infectious Disease Hx of Infectious Diseases: None - Tetanus Immunizations Tetanus Immunization: Unknown - Past Medical History & Family History Past Medical History?: Yes Past Family History: Reviewed and not pertinent - Past Social History Smoking Status: Never Smoked Alcohol: None Drugs: Denies - CARDIAC Hx Cardia Arrhythmia: Yes (Flutter) Hx Hypertension: Yes Hx Pacemaker: No Hx Peripheral Edema: Yes (+2) - PULMONARY Hx Bronchitis: Yes Hx Chronic Obstructive Pulmonary Disease (COPD): Yes Hx Pneumonia: Yes (5 YRS AGO) - HEENT Hx Glaucoma: Yes - RENAL Hx Chronic Kidney Disease: No - ENDOCRINE/METABOLIC Hx Endocrine Disorders: No - HEMATOLOGICAL/ONCOLOGICAL Hx Anemia: No Hx Human Immunodeficiency Virus (HIV): No - INTEGUMENTARY Hx Dermatological Problems: No - MUSCULOSKELETAL/RHEUMATOLOGICAL Hx Arthritis: Yes Hx Fractures: Yes Hx Osteoporosis: Yes - GASTROINTESTINAL Hx Pancreatitis: Yes - GENITOURINARY/GYNECOLOGICAL Hx Sexually Transmitted Disorders: No - PSYCHIATRIC Hx Anxiety: Yes Hx Depression: Yes - SURGICAL HISTORY Hx Carotid Endarterectomy: Yes - ANESTHESIA Hx Anesthesia: Yes Hx Anesthesia Reactions: No Hx Malignant Hyperthermia: No Meds Allergies/Adverse Reactions: Allergies Allergy/AdvReac Type Severity Reaction Status Date / Time Penicillins Allergy RASH Verified 01/12/17 13:03 Physical Exam - Constitutional Appears: Well, No Acute Distress - Head Exam Head Exam: ATRAUMATIC, NORMAL INSPECTION, NORMOCEPHALIC - Eye Exam Eye Exam: EOMI, Normal appearance, PERRL Pupil Exam: NORMAL ACCOMODATION, PERRL - ENT Exam ENT Exam: Mucous Membranes Moist, Normal Exam - Neck Exam Neck exam: Positive for: Normal Inspection - Respiratory Exam Respiratory Exam: Clear to Auscultation Bilateral, NORMAL BREATHING PATTERN - Cardiovascular Exam Cardiovascular Exam: REGULAR RHYTHM, +S1, +S2 - GI/Abdominal Exam GI & Abdominal Exam: Normal Bowel Sounds, Soft. absent: Tenderness - Extremities Exam Extremities exam: Positive for: normal inspection - Back Exam Back exam: NORMAL INSPECTION - Neurological Exam Neurological exam: Abnormal Gait, Alert, CN II-XII Intact, Oriented x3, Reflexes Normal - Psychiatric Exam Psychiatric exam: Normal Affect, Normal Mood - Skin Skin Exam: Dry, Intact, Normal Color, Warm Results - Vital Signs Recent Vital Signs: Last Vital Signs Temp 98 F 01/12/17 13:01 Pulse 90 01/12/17 15:36 Resp 17 01/12/17 15:36 BP 139/70 01/12/17 15:36 Pulse Ox 98 01/12/17 15:36 - Labs Result Diagrams: 01/15/17 06:30 01/15/17 06:30 Labs: Laboratory Results - last 24 hr 01/12/17 01/12/17 01/12/17 14:54 14:54 14:54 WBC 7.6 RBC 3.62 L Hgb 10.5 L Hct 33.7 L MCV 93.0 D MCH 28.9 MCHC 31.1 L RDW 18.9 H Plt Count 325 MPV 8.2 Neut % (Auto) 51.4 Lymph % (Auto) 29.1 [place] % (Auto) 10.6 H Eos % (Auto) 8.3 H Baso % (Auto) 0.6 Neut # 3.9 Lymph # 2.2 [place] # 0.8 Eos # 0.6 Baso # 0.0 PT 12.8 INR 1.1 Sodium 139 Potassium 4.3 Chloride 106 Carbon Dioxide 25 Anion Gap 12 BUN 18 H Creatinine 0.7 Est GFR ( Amer) > 60 Est GFR (Non-Af Amer) > 60 Random Glucose 110 H Calcium 8.1 L Total Bilirubin 0.3 AST 56 H D ALT 40 Alkaline Phosphatase 86 Total Protein 7.0 Albumin 3.2 L D Globulin 3.7 Albumin/Globulin Ratio 0.9 L Blood Type Antibody Screen BBK History Checked 01/12/17 14:54 WBC RBC Hgb Hct MCV MCH MCHC RDW Plt Count MPV Neut % (Auto) Lymph % (Auto) [place] % (Auto) Eos % (Auto) Baso % (Auto) Neut # Lymph # White # Eos # Baso # PT INR Sodium Potassium Chloride Carbon Dioxide Anion Gap BUN Creatinine Est GFR ( Amer) Est GFR (Non-Af Amer) Random Glucose Calcium Total Bilirubin AST ALT Alkaline Phosphatase Total Protein Albumin Globulin Albumin/Globulin Ratio Blood Type A NEGATIVE Antibody Screen Negative BBK History Checked No verified bt - Imaging and Cardiology U/S Abdomen/Pelvis: Status: Report reviewed by me Additional comment: IMPRESSION: Markedly dilated common bile duct. Gallbladder distension. No evidence of gallstones or gallbladder sludge. No evidence of gallbladder wall thickening or pericholecystic edema. Negative sonographic Potter's sign as assessed by the heel seat filler. 6 mm probable gallbladder polyp. No consensus exist regarding management of polyps in the size range. Current recommendations indicate continued surveillance with serial follow-up imaging at 3, 6, and 12 months. Mild hepatomegaly. Echogenic liver may be seen in setting of hepatic parenchymal disease or fatty infiltration. Nodular hepatic contour may be seen in the setting of cirrhosis. Correlate clinically. The pancreas is not well-visualized. Limited visualization of the pancreas reveals evidence of heterogeneity consistent with previously demonstrated appearance. Continued follow-up as indicated. Assessment & Plan (1) Common bile duct obstruction Assessment and Plan: T-Tube (PCT) dislodged High Risk for Ascending Choleangitis and Obstructive Jaundice Surgery and GI on Board Continue to Monitor V/S and CMP Pain Medication PRN NPO past Midnight for Possible procedure Status: Acute (2) Anxiety Status: Chronic (3) COPD (chronic obstructive pulmonary disease) Status: Chronic (4) DJD (degenerative joint disease) Status: Chronic (5) GERD (gastroesophageal reflux disease) Status: Chronic (6) HTN (hypertension) Status: Chronic
[2017-01-12] MEDS ORDERED: Ergocalciferol 50,000 Intl Units Cap PO SCH (20:30)
[2017-01-12] MEDS ORDERED: Sodium Chloride 0.9% 1,000 ML IV SCH (20:45)
[2017-01-12] MEDS ORDERED: metroNIDAZOLE 500mg/100ml NS 100 ML IVPB SCH (21:00)
[2017-01-12] MEDS ORDERED: Albuterol-Ipratrop 3 mg / 0.5 (3 ml) UD INH PRN (21:16)
[2017-01-12 22:27] LABS: BASO # 0.1 K/uL (0.0-0.2); BASO % 0.9 % (0.0-2.0); EOS # 0.8 K/uL (0.0-0.7); EOS % 9.5 % (0.0-4.0); HEMATOCRIT 34.1 % (34.0-47.0); LYMPH # 2.1 K/uL (1.0-4.3); LYMPH % 24.3 % (20.0-40.0); MEAN CELL VOLUME 92.9 fl (81.0-99.0); MEAN CORPUSCULAR HEMOGLOBIN 29.3 pg (27.0-31.0); MEAN CORPUSCULAR HGB CONC 31.6 g/dL (33.0-37.0); MEAN PLATELET VOLUME 8.1 fl (7.2-11.7); MONO # 0.8 K/uL (0.0-0.8); MONO % 9.6 % (0.0-10.0); NEUT # 4.7 K/uL (1.8-7.0); NEUT % 55.7 % (50.0-75.0); RED CELL DISTRIBUTION WIDTH 18.6 % (11.5-14.5); WHITE BLOOD COUNT 8.5 K/uL (4.8-10.8)
[2017-01-12 22:43] LABS: ALB/GLOB RATIO 0.9 (1.0-2.1); ALKALINE PHOSPHATASE 98 U/L (38-126); ALT/SGPT 40 U/L (9-52); AST/SGOT 68 U/L (14-36); BILIRUBIN,TOTAL 0.5 mg/dl (0.2-1.3); BLOOD UREA NITROGEN 16 mg/dl (7-17); CALCIUM 8.1 mg/dL (8.4-10.2); CARBON DIOXIDE 29 mmol/L (22-30); CHLORIDE 106 mmol/L (98-107); GFR AFRICAN-AMERICAN > 60; GLUCOSE,RANDOM 101 mg/dL (65-105); POTASSIUM 4.3 MMOL/L (3.6-5.0); SODIUM 140 mmol/l (132-148); TOTAL PROTEIN 7.3 G/DL (6.3-8.2)
[2017-01-12] MEDS: Ciprofloxacin 400mg/200ml D5W 400 MG/200 ML BAG IVPB SCH (23:17)
--- NOTE | 2017-01-12 23:30 | PCM.RRT ---
<Angel Hunter - Last Filed: 01/12/17 23:59> TOLL PATROLMAN Nurse Assessment - Situation TOLL PATROLMAN Responder Arrival Time: 10:00 Location: 6th floor Room Number: [id number] TOLL PATROLMAN Reason for Call: Chest Pain, Tachycardia, Hypertension TOLL PATROLMAN Called By: RN - IV IV Inserted during TOLL PATROLMAN?: No - Respiratory Oxygen Delivery Method: Nasal Cannula Received Nebulizer Treatments: No Was the Patient Ventilated with Bag/Mask 100% O2?: No Secretions Suctioned?: No Was the Patient Intubated?: No Was the Patient Placed on a Ventilator?: No - Medication Medications Administered During TOLL PATROLMAN: 3 x Nitrostat SL 0.4mg, Morphine 2mg IVP, Zofran 4mg IVP, Pepcid 20mg PO, maalox 30 ml PO and Xanax 0.25mg PO - Diagnostic Test Ordered EKG: Yes - Stat Labs Ordered TOLL PATROLMAN Other Labs Ordered: serial troponins, CBC, CMP, and Lipase CPR started during TOLL PATROLMAN?: No I.Reason for TOLL PATROLMAN - A) Acute Change in Patient: (Select all that apply): Staff member or family is worried about patient, Chest Pain Subjective: TOLL PATROLMAN was called for 76 y/o female, due to epigastric pain, HTN and Tachycardia, with past medical history of anxiety, COPD, hypertension, pancreatitis, fibromyalgia, indwelling PTC tube placed in October 2016 due to chronic pancreatitis and ampullary diverticulitis. Upon arrival, patient is NAD, alert, awake, verbal and seemed little anxious, BP: 160/95, HR 103, O2 Sat 97% on 3L NC. patient reports epigastric non-radiating pain which started after she ate and "it feels like my food is stuck there". Patient admits occasional palpitations, mild difficulty breathing and feeling nauseated. On Physical exam , b/l audible inspiratory and expiratory wheezing on auscultation, EKG was ordered (Sinus tachycardia, inverted T waves on V4,5,6, No significant change from previous EKG). During TOLL PATROLMAN patient was given 3 x Nitrostat SL 0.4mg, Morphine 2mg IVP, Zofran 4mg IVP, Pepcid 20mg PO, maalox 30 ml PO and Xanax 0.25mg PO. Following labs were ordered: serial troponins, CBC, CMP, and Lipase. Patient reports pain is better after treatments. First troponin is negative, Will follow up labs, consider Duonab Tx if O2 sat below 94%, and continue 3L NC. End of the TOLL PATROLMAN: BP 143/88, PP 100, O2 Sat 96%. Case is discussed with Dr. Gardner (present for the entire TOLL PATROLMAN) --- Angel Hunter, PGY-1 - Neurological Status (Select all that apply): Alert, Responsive, Oriented, Verbal, Follows Commands Other (Please specify): Anxious - Respiratory Oxygen Delivery Method: Nasal Cannula @L/min (3L) - Constitutional Appears: No Acute Distress - Head Head Exam: NORMOCEPHALIC - Eyes Eye Exam: Normal appearance - Respiratory Exam Respiratory Exam: Wheezes - Cardiovascular Exam Cardiovascular Exam: REGULAR RHYTHM, +S1, +S2 - GI/Abdominal Exam GI & Abdominal Exam: Soft, Normal Bowel Sounds - Neurological Exam Neurological Exam: Alert, Awake, Oriented x3 - Extremities Exam Extremities Exam: Normal Inspection Plan - Assessment of Findings&Treatment Plan TOLL PATROLMAN was called for 76 y/o female, due to epigastric pain, HTN and Tachycardia. - R/o [place] vs GERD vs chronic pancreatitis - First Troponin negative - EKG negative for any ST elevation - Will follow up labs - Morphine for pain - Duonab Tx and mask breather if O2 sat below 94% - Will re-evaluate patient Case discussed with Dr. Gardner --- Angel Hunter, PGY-1 <Ibrahima Gardner - Last Filed: 01/13/17 07:13> TOLL PATROLMAN Nurse Assessment - Vital Signs Vital Signs: Rapid Response Vital Sign Blood Pressure 170/100 Pulse Rate 136 Respiratory Rate 22 Oxygen Saturation 97 - Vital Signs at end of TOLL PATROLMAN Vital Signs at end of TOLL PATROLMAN: Rapid Response End Vital Sign Blood Pressure 146/96 Pulse Rate 104 Respiratory Rate 20 O2 Sat by Pulse Oximetry 93 Attending/Attestation - Attestation I have personally seen and examined this patient.: No I have fully participated in the care of the patient.: No I have reviewed all pertinent clinical information, including history, physical exam and plan: No Notes (Text): 01/13/17 07:06 i saw and examined this patient shoulder to shoulder with Dr Hunter. The assessment and plan represent my direct input. Rapid Response team was called because of Hypertension and chest pressure. the patient was awake and alert in no respiratory distress. EKG showed artefact with low voltage, and inversion in V4-6 which appeared to be new. Blood work- Troponin; CMP and CBC were drawn I&P # Chest pain with Epigastric pain - sublingual nitroglycerine was given X3 with minimal relief - Maalox and pepcid were also give causing mild to moderate relief - Morphine 2mg was then given. Ibrahima Gardner MD
[2017-01-13 06:27] LABS: BASO # 0.1 K/uL (0.0-0.2); BASO % 0.6 % (0.0-2.0); EOS # 0.7 K/uL (0.0-0.7); EOS % 9.3 % (0.0-4.0); HEMATOCRIT 31.5 % (34.0-47.0); LYMPH # 1.9 K/uL (1.0-4.3); LYMPH % 23.6 % (20.0-40.0); MEAN CELL VOLUME 92.9 fl (81.0-99.0); MEAN CORPUSCULAR HEMOGLOBIN 30.7 pg (27.0-31.0); MEAN CORPUSCULAR HGB CONC 33.1 g/dL (33.0-37.0); MEAN PLATELET VOLUME 8.1 fl (7.2-11.7); MONO # 0.7 K/uL (0.0-0.8); MONO % 9.1 % (0.0-10.0); NEUT # 4.5 K/uL (1.8-7.0); NEUT % 57.4 % (50.0-75.0); RED CELL DISTRIBUTION WIDTH 18.4 % (11.5-14.5); WHITE BLOOD COUNT 7.9 K/uL (4.8-10.8)
[2017-01-13 06:56] LABS: ALB/GLOB RATIO 0.9 (1.0-2.1); ALKALINE PHOSPHATASE 94 U/L (38-126); ALT/SGPT 40 U/L (9-52); AST/SGOT 51 U/L (14-36); BILIRUBIN,TOTAL 0.4 mg/dl (0.2-1.3); BLOOD UREA NITROGEN 13 mg/dl (7-17); CALCIUM 8.2 mg/dL (8.4-10.2); CARBON DIOXIDE 28 mmol/L (22-30); CHLORIDE 105 mmol/L (98-107); CHOLESTEROL 156 mg/dL (0-199); GFR AFRICAN-AMERICAN > 60; GLUCOSE,RANDOM 108 mg/dL (65-105); LIPASE 251 U/L (23-300); POTASSIUM 4.1 MMOL/L (3.6-5.0); SODIUM 141 mmol/l (132-148); TOTAL PROTEIN 6.8 G/DL (6.3-8.2)
[2017-01-13 07:01] LABS: THYROID STIMULATING HORMONE 3.23 mIU/ML (0.46-4.68)
[2017-01-13] MEDS: Ciprofloxacin 400mg/200ml D5W 400 MG/200 ML BAG IVPB SCH ×2 (09:06→20:10)
--- NOTE | 2017-01-13 09:08 | CP.PCM.PN ---
<William Durann - Last Filed: 01/13/17 09:06> Subjective - Date & Time of Evaluation Date of Evaluation: 01/13/17 Time of Evaluation: 07:15 - Subjective Subjective: General Surgery- Dr. Reddy Pt S&E at bedside this AM. started having RUQ pain after josue tube fell out. Pain started after eating. currently denies, fevers, chills, chest pain, shortness of breath, nausea, vomiting, diarrhea. Objective - Vital Signs/Intake and Output Vital Signs (last 24 hours): Temp Pulse Resp BP Pulse Ox 97.8 F 97 H 18 175/88 H 96 01/13/17 08:12 01/13/17 08:12 01/13/17 08:12 01/13/17 08:12 01/13/17 08:12 - Medications Medications: Current Medications Acetaminophen (Tylenol 325mg Tab) 650 mg PO Q6 PRN PRN Reason: Pain, moderate (4-7) Al Hydrox/Mg Hydrox/Simethicone (Maalox Plus 30 Ml) 30 ml PO Q6 PRN PRN Reason: Indigestion / Heartburn Albuterol/Ipratropium (Duoneb 3 Mg/0.5 Mg (3 Ml) Ud) 3 ml INH RQ6 PATTI Alprazolam (Xanax) 0.25 mg PO TID [facility] Stop: 01/20/17 09:01 Amlodipine Besylate (Norvasc) 5 mg PO DAILY PATTI Aspirin (Ecotrin) 81 mg PO DAILY PATTI Docusate Sodium (Colace) 100 mg PO TID PRN PRN Reason: Constipation Duloxetine HCl (Cymbalta) 60 mg PO HS [facility] Last Admin: 01/12/17 23:57 Dose: 60 mg Ergocalciferol (Drisdol 50,000 Intl Units Cap) 1 cap PO MO PATTI Last Admin: 01/12/17 23:57 Dose: 1 cap Heparin Sodium (Porcine) (Heparin) 5,000 units SC Q8 PATTI PRN Reason: Protocol Last Admin: 01/13/17 01:38 Dose: 5,000 units Hydrochlorothiazide (Hydrodiuril) 25 mg PO DAILY [facility] Ciprofloxacin (Cipro 400mg/200ml Dsw) 400 mg in 200 mls @ 200 mls/hr IVPB Q12 PATTI PRN Reason: Protocol Last Admin: 01/12/17 23:17 Dose: 200 mls/hr Sodium Chloride (Sodium Chloride 0.9%) 1,000 mls @ 80 mls/hr IV .[id number] PATTI Stop: 01/13/17 20:33 Last Admin: 01/12/17 23:19 Dose: 80 mls/hr Ondansetron HCl (Zofran Tab) 4 mg PO Q8H PRN PRN Reason: Nausea/Vomiting Sennosides (Senokot Tab) 8.6 mg PO BID PRN PRN Reason: Constipation Tramadol HCl (Ultram) 100 mg PO Q6 PRN PRN Reason: Pain, severe (8-10) Trazodone HCl (Desyrel) 50 mg PO HS [facility] Last Admin: 01/12/17 23:59 Dose: Not Given - Labs Labs: 01/13/17 06:05 01/13/17 06:05 PT 12.8 Seconds (9.8-13.1) 01/12/17 14:54 INR 1.1 (0.9-1.2) 01/12/17 14:54 - Constitutional Appears: Non-toxic, No Acute Distress, Chronically Ill - Head Exam Head Exam: ATRAUMATIC - Eye Exam Eye Exam: EOMI. absent: Scleral icterus - ENT Exam ENT Exam: Mucous Membranes Moist - Respiratory Exam Respiratory Exam: NORMAL BREATHING PATTERN. absent: Accessory Muscle Use, Respiratory Distress - Cardiovascular Exam Cardiovascular Exam: +S1, +S2. absent: Bradycardia, Tachycardia - GI/Abdominal Exam GI & Abdominal Exam: Soft, Tenderness. absent: Distended, Firm, Guarding, Rigid Additional comments: tender to palpation in RUQ - Extremities Exam Extremities Exam: Normal Inspection. absent: Calf Tenderness - Neurological Exam Neurological Exam: Alert, Awake, Oriented x3 - Psychiatric Exam Psychiatric exam: Normal Affect - Skin Skin Exam: Intact, Warm Assessment and Plan - Assessment and Plan (Free Text) Assessment: 76F w/ duodenal diverticulum, s/p josue tube displacement Plan: - GI plan for ERCP tomorrow - possible new josue tube placement - medical management per primary - further recs per Dr. Barry Duran PGY1 <Kyle Reddy B - Last Filed: 01/16/17 23:21> Objective - Vital Signs/Intake and Output Vital Signs (last 24 hours): Temp Pulse Resp BP Pulse Ox 97.5 F L 75 20 119/74 92 L 01/16/17 08:39 01/16/17 09:52 01/16/17 08:39 01/16/17 09:52 01/16/17 08:39 - Labs Labs: 01/16/17 06:15 01/16/17 06:15 PT 12.8 Seconds (9.8-13.1) 01/12/17 14:54 INR 1.1 (0.9-1.2) 01/12/17 14:54 Attending/Attestation - Attestation I have personally seen and examined this patient.: Yes I have fully participated in the care of the patient.: Yes I have reviewed all pertinent clinical information, including history, physical exam and plan: Yes Notes (Text): Pt was seen and examined at bedside Agree with above note and assessment Pt with Dislodged tube with CBD stone Labs and radiology reviewed GI consult appreciated ERCP tomorrow NPO, IVF c.w current mx Plan d/w pt in detail Risk and benefit explained in detail.
--- NOTE | 2017-01-13 10:57 | CARD ---
APPROVED REPORT EKG Measurement Heart [id number] <Conclusion> Sinus tachycardia Nonspecific T wave abnormality Abnormal ECG
[2017-01-13] MEDS: Albuterol-Ipratrop 3 mg / 0.5 (3 ml) UD INH SCH (13:28)
--- NOTE | 2017-01-13 14:47 | CP.PCM.CON ---
History of Present Illness - History of Present Illness History of Present Illness: 76 yo female who [facility] after cholecystostomy tube fell out. Had cholangiogram performed approximately 2 weeks ago demonstrating open cystic duct but no flow into duodenum. After tube came out felt RUQ pain and chills. Review of Systems - Constitutional Constitutional: Chills - EENT Eyes: absent: Change in Vision Ears: absent: Ear Pain Nose/Mouth/Throat: absent: Epistaxis - Cardiovascular Cardiovascular: absent: Chest Pain - Respiratory Respiratory: absent: Cough - Gastrointestinal Gastrointestinal: Abdominal Pain - Genitourinary Genitourinary: absent: Change in Urinary Stream Past Patient History - Infectious Disease Hx of Infectious Diseases: None - Tetanus Immunizations Tetanus Immunization: Unknown - Past Medical History & Family History Past Medical History?: Yes - Past Social History Smoking Status: Never Smoked - CARDIAC Hx Cardia Arrhythmia: Yes (Flutter) Hx Hypertension: Yes Hx Pacemaker: No Hx Peripheral Edema: Yes (+2) - PULMONARY Hx Bronchitis: Yes Hx Chronic Obstructive Pulmonary Disease (COPD): Yes Hx Pneumonia: Yes (5 YRS AGO) - HEENT Hx Glaucoma: Yes - RENAL Hx Chronic Kidney Disease: No - ENDOCRINE/METABOLIC Hx Endocrine Disorders: No - HEMATOLOGICAL/ONCOLOGICAL Hx Anemia: No Hx Human Immunodeficiency Virus (HIV): No - INTEGUMENTARY Hx Dermatological Problems: No - MUSCULOSKELETAL/RHEUMATOLOGICAL Hx Arthritis: Yes Hx Fractures: Yes Hx Osteoporosis: Yes - GASTROINTESTINAL Hx Pancreatitis: Yes - GENITOURINARY/GYNECOLOGICAL Hx Sexually Transmitted Disorders: No - PSYCHIATRIC Hx Anxiety: Yes Hx Depression: Yes - SURGICAL HISTORY Hx Carotid Endarterectomy: Yes - ANESTHESIA Hx Anesthesia: Yes Hx Anesthesia Reactions: No Hx Malignant Hyperthermia: No Meds Allergies/Adverse Reactions: Allergies Allergy/AdvReac Type Severity Reaction Status Date / Time Penicillins Allergy RASH Verified 01/12/17 13:03 - Medications Medications: Current Medications Acetaminophen (Tylenol 325mg Tab) 650 mg PO Q6 PRN PRN Reason: Pain, moderate (4-7) Last Admin: 01/13/17 10:58 Dose: 650 mg Al Hydrox/Mg Hydrox/Simethicone (Maalox Plus 30 Ml) 30 ml PO Q6 PRN PRN Reason: Indigestion / Heartburn Albuterol/Ipratropium (Duoneb 3 Mg/0.5 Mg (3 Ml) Ud) 3 ml INH RQ6 [facility] Last Admin: 01/13/17 13:28 Dose: 3 ml Alprazolam (Xanax) 0.25 mg PO TID [facility] Stop: 01/20/17 09:01 Last Admin: 01/13/17 13:00 Dose: 0.25 mg Amlodipine Besylate (Norvasc) 5 mg PO DAILY [facility] Last Admin: 01/13/17 09:08 Dose: 5 mg Aspirin (Ecotrin) 81 mg PO DAILY [facility] Last Admin: 01/13/17 09:10 Dose: 81 mg Diphenhydramine HCl (Benadryl) 25 mg PO Q12 PRN PRN Reason: Allergy symptoms Docusate Sodium (Colace) 100 mg PO TID PRN PRN Reason: Constipation Duloxetine HCl (Cymbalta) 60 mg PO HS [facility] Last Admin: 01/12/17 23:57 Dose: 60 mg Ergocalciferol (Drisdol 50,000 Intl Units Cap) 1 cap PO MO [facility] Last Admin: 01/12/17 23:57 Dose: 1 cap Heparin Sodium (Porcine) (Heparin) 5,000 units SC Q8 [facility] PRN Reason: Protocol Last Admin: 01/13/17 09:11 Dose: 5,000 units Hydrochlorothiazide (Hydrodiuril) 25 mg PO DAILY [facility] Last Admin: 01/13/17 09:08 Dose: 25 mg Ciprofloxacin (Cipro 400mg/200ml Dsw) 400 mg in 200 mls @ 200 mls/hr IVPB Q12 [facility] PRN Reason: Protocol Last Admin: 01/13/17 09:06 Dose: 200 mls/hr Ondansetron HCl (Zofran Tab) 4 mg PO Q8H PRN PRN Reason: Nausea/Vomiting Sennosides (Senokot Tab) 8.6 mg PO BID PRN PRN Reason: Constipation Tramadol HCl (Ultram) 100 mg PO Q6 PRN PRN Reason: Pain, severe (8-10) Last Admin: 01/13/17 09:07 Dose: 100 mg Trazodone HCl (Desyrel) 50 mg PO HS [facility] Last Admin: 01/12/17 23:59 Dose: Not Given Physical Exam - Constitutional Appears: Well - Head Exam Head Exam: NORMAL INSPECTION - Eye Exam Eye Exam: Normal appearance - ENT Exam ENT Exam: Mucous Membranes Moist - Neck Exam Neck exam: Positive for: Normal Inspection - Respiratory Exam Respiratory Exam: Clear to Auscultation Bilateral - Cardiovascular Exam Cardiovascular Exam: REGULAR RHYTHM, +S1, +S2 - GI/Abdominal Exam GI & Abdominal Exam: Normal Bowel Sounds, Soft. absent: Tenderness Results - Vital Signs Recent Vital Signs: Last Vital Signs Temp 97.8 F 01/13/17 08:12 Pulse 92 H 01/13/17 13:31 Resp 18 01/13/17 08:12 BP 175/88 H 01/13/17 08:12 Pulse Ox 96 01/13/17 08:12 - Labs Result Diagrams: 01/13/17 06:05 01/13/17 06:05 Labs: Laboratory Results - last 24 hr 01/12/17 01/12/17 01/12/17 14:54 14:54 14:54 WBC 7.6 RBC 3.62 L Hgb 10.5 L Hct 33.7 L MCV 93.0 D MCH 28.9 MCHC 31.1 L RDW 18.9 H Plt Count 325 MPV 8.2 Neut % (Auto) 51.4 Lymph % (Auto) 29.1 [place] % (Auto) 10.6 H Eos % (Auto) 8.3 H Baso % (Auto) 0.6 Neut # 3.9 Lymph # 2.2 [place] # 0.8 Eos # 0.6 Baso # 0.0 PT 12.8 INR 1.1 Sodium 139 Potassium 4.3 Chloride 106 Carbon Dioxide 25 Anion Gap 12 BUN 18 H Creatinine 0.7 Est GFR ( Amer) > 60 Est GFR (Non-Af Amer) > 60 Random Glucose 110 H Calcium 8.1 L Total Bilirubin 0.3 AST 56 H D ALT 40 Alkaline Phosphatase 86 Troponin I Total Protein 7.0 Albumin 3.2 L D Globulin 3.7 Albumin/Globulin Ratio 0.9 L Triglycerides Cholesterol LDL Cholesterol Direct HDL Cholesterol Lipase TSH 3rd Generation Blood Type Blood Type Confirm Antibody Screen BBK History Checked 01/12/17 01/12/17 01/12/17 14:54 22:18 22:18 WBC RBC Hgb Hct MCV MCH MCHC RDW Plt Count MPV Neut % (Auto) Lymph % (Auto) [place] % (Auto) Eos % (Auto) Baso % (Auto) Neut # Lymph # [place] # Eos # Baso # PT INR Sodium 140 Potassium 4.3 Chloride 106 Carbon Dioxide 29 Anion Gap 9 L BUN 16 Creatinine 0.7 Est GFR ( Amer) > 60 Est GFR (Non-Af Amer) > 60 Random Glucose 101 Calcium 8.1 L Total Bilirubin 0.5 AST 68 H D ALT 40 Alkaline Phosphatase 98 Troponin I 0.0500 Total Protein 7.3 Albumin 3.5 Globulin 3.9 Albumin/Globulin Ratio 0.9 L Triglycerides Cholesterol LDL Cholesterol Direct HDL Cholesterol Lipase [facility] 3rd Generation Blood Type A NEGATIVE Blood Type Confirm A NEGATIVE Antibody Screen Negative BBK History Checked No verified bt 01/12/17 01/12/17 01/13/17 22:18 23:00 06:05 WBC 8.5 7.9 RBC 3.67 L 3.39 L Hgb 10.8 L 10.4 L Hct 34.1 31.5 L MCV 92.9 92.9 MCH 29.3 30.7 MCHC 31.6 L 33.1 RDW 18.6 H 18.4 H Plt Count 362 343 MPV 8.1 8.1 Neut % (Auto) 55.7 57.4 Lymph % (Auto) 24.[address] [place] % (Auto) 9.6 9.1 Eos % (Auto) 9.5 H 9.3 H Baso % (Auto) 0.9 0.6 Neut # 4.7 4.5 Lymph # 2.[address] [place] # 0.8 0.7 Eos # 0.8 H 0.7 Baso # 0.1 0.1 PT INR Sodium Potassium Chloride Carbon Dioxide Anion Gap BUN Creatinine Est GFR ( Amer) Est GFR (Non-Af Amer) Random Glucose Calcium Total Bilirubin AST ALT Alkaline Phosphatase Troponin I Total Protein Albumin Globulin Albumin/Globulin Ratio Triglycerides Cholesterol LDL Cholesterol Direct HDL Cholesterol Lipase 348 H [facility] 3rd Generation Blood Type Blood Type Confirm Antibody Screen BBK History Checked 01/13/17 06:05 WBC RBC Hgb Hct MCV MCH MCHC RDW Plt Count MPV Neut % (Auto) Lymph % (Auto) [place] % (Auto) Eos % (Auto) Baso % (Auto) Neut # Lymph # [place] # Eos # Baso # PT INR Sodium 141 Potassium 4.1 Chloride 105 Carbon Dioxide 28 Anion Gap 12 BUN 13 Creatinine 0.6 L Est GFR ( Amer) > 60 Est GFR (Non-Af Amer) > 60 Random Glucose 108 H Calcium 8.2 L Total Bilirubin 0.4 AST 51 H D ALT 40 Alkaline Phosphatase 94 Troponin I Total Protein 6.8 Albumin 3.1 L Globulin 3.6 Albumin/Globulin Ratio 0.9 L Triglycerides 209 H D Cholesterol 156 LDL Cholesterol Direct 78 HDL Cholesterol 38 Lipase 251 TSH 3rd Generation 3.23 Blood Type Blood Type Confirm Antibody Screen BBK History Checked Assessment & Plan (1) Abdominal pain Assessment and Plan: Has dilated CBD and previous cholangiogram c/w obstruction. Also with periampullary diverticulum. ERCP tomorrow. IV antibiotics started yesterday. Has nausea today. Continue IV Cipro. Flagyl stopped Status: Acute
[2017-01-13] MEDS: Potassium Chl 20 mEq in D5-NS 1,000 ML IV SCH (16:24)
[2017-01-13] MEDS: Alum-Mag Hydrox-Simethicone Susp (30 mL) PO PRN (19:04)
--- NOTE | 2017-01-13 23:56 | CP.PCM.PN ---
Subjective - Date & Time of Evaluation Date of Evaluation: 01/13/17 Time of Evaluation: 18:55 - Subjective Subjective: Seen and examined at the bed side. Last Night patient had RR. RESEARCH ANTHROPOLOGIST was called for Epigastric pain, HTN and Tachycardia, with past medical history of anxiety, COPD, hypertension, pancreatitis, fibromyalgia, indwelling PTC tube placed in October 2016 due to chronic pancreatitis and ampullary diverticulitis. Upon arrival, patient is NAD, alert, awake, verbal and seemed little anxious, BP: 160 /95, HR 103, O2 Sat 97% on 3L NC. patient reports epigastric non-radiating pain which started after she ate and "it feels like my food is stuck there". Patient admits occasional palpitations, mild difficulty breathing and feeling nauseated. On Physical exam, b/l audible inspiratory and expiratory wheezing on auscultation, EKG was ordered (Sinus tachycardia, inverted T waves on V4,5,6, No significant change from previous EKG). During RESEARCH ANTHROPOLOGIST patient was given 3 x Nitrostat SL 0.4mg, Morphine 2mg IVP, Zofran 4mg IVP, Pepcid 20mg PO, maalox 30 ml PO and Xanax 0.25mg PO. Following labs were ordered: serial troponins, CBC, CMP, and Lipase. Patient reports pain is better after treatments. First troponin is negative, Will follow up labs, consider Duonab Tx if O2 sat below 94 %, and continue 3L NC. End of the RESEARCH ANTHROPOLOGIST: BP 143/88, PP 100, O2 Sat 96%. Now denies any complaint. Cardioloist consulted to Clear the patient for the ERCP (Dx and Rx). Objective - Vital Signs/Intake and Output Vital Signs (last 24 hours): Temp Pulse Resp BP Pulse Ox 98 F 97 H 20 137/83 97 01/13/17 16:27 01/13/17 16:27 01/13/17 16:27 01/13/17 16:27 01/13/17 16:27 - Medications Medications: Current Medications Acetaminophen (Tylenol 325mg Tab) 650 mg PO Q6 PRN PRN Reason: Pain, moderate (4-7) Last Admin: 01/13/17 10:58 Dose: 650 mg Al Hydrox/Mg Hydrox/Simethicone (Maalox Plus 30 Ml) 30 ml PO Q6 PRN PRN Reason: Indigestion / Heartburn Last Admin: 01/13/17 19:04 Dose: 30 ml Albuterol/Ipratropium (Duoneb 3 Mg/0.5 Mg (3 Ml) Ud) 3 ml INH RQ6 [facility] Last Admin: 01/13/17 13:28 Dose: 3 ml Alprazolam (Xanax) 0.25 mg PO TID [facility] Stop: 01/20/17 09:01 Last Admin: 01/13/17 20:10 Dose: 0.25 mg Amlodipine Besylate (Norvasc) 5 mg PO DAILY [facility] Last Admin: 01/13/17 09:08 Dose: 5 mg Diphenhydramine HCl (Benadryl) 25 mg PO Q12 PRN PRN Reason: Allergy symptoms Docusate Sodium (Colace) 100 mg PO TID PRN PRN Reason: Constipation Duloxetine HCl (Cymbalta) 60 mg PO HS [facility] Last Admin: 01/13/17 22:10 Dose: 60 mg Ergocalciferol (Drisdol 50,000 Intl Units Cap) 1 cap PO MO [facility] Last Admin: 01/12/17 23:57 Dose: 1 cap Heparin Sodium (Porcine) (Heparin) 5,000 units SC Q8 [facility] PRN Reason: Protocol Last Admin: 01/13/17 16:21 Dose: 5,000 units Hydrochlorothiazide (Hydrodiuril) 25 mg PO DAILY [facility] Last Admin: 01/13/17 09:08 Dose: 25 mg Ciprofloxacin (Cipro 400mg/200ml Dsw) 400 mg in 200 mls @ 200 mls/hr IVPB Q12 [facility] PRN Reason: Protocol Last Admin: 01/13/17 20:10 Dose: 200 mls/hr Potassium Chloride/Dextrose/Sod Cl (Potassium Chl 20 Meq In D5-Ns) 1,000 mls @ 80 mls/hr IV .[id number] [facility] Stop: 01/14/17 14:56 Last Admin: 01/13/17 16:24 Dose: 80 mls/hr Ondansetron HCl (Zofran Tab) 4 mg PO Q8H PRN PRN Reason: Nausea/Vomiting Sennosides (Senokot Tab) 8.6 mg PO BID PRN PRN Reason: Constipation Tramadol HCl (Ultram) 100 mg PO Q6 PRN PRN Reason: Pain, severe (8-10) Last Admin: 01/13/17 22:26 Dose: 100 mg Trazodone HCl (Desyrel) 50 mg PO HS [facility] Last Admin: 01/13/17 22:10 Dose: 50 mg - Labs Labs: 01/13/17 06:05 01/13/17 06:05 PT 12.8 Seconds (9.8-13.1) 01/12/17 14:54 INR 1.1 (0.9-1.2) 01/12/17 14:54 - Constitutional Appears: Well, No Acute Distress, Chronically Ill - Head Exam Head Exam: ATRAUMATIC, NORMAL INSPECTION, NORMOCEPHALIC - Eye Exam Eye Exam: EOMI, Normal appearance, PERRL Pupil Exam: NORMAL ACCOMODATION, PERRL - ENT Exam ENT Exam: Mucous Membranes Moist, Normal Exam - Neck Exam Neck Exam: Full ROM, Normal Inspection. absent: Lymphadenopathy - Respiratory Exam Respiratory Exam: Clear to Ausculation Bilateral, NORMAL BREATHING PATTERN - Cardiovascular Exam Cardiovascular Exam: REGULAR RHYTHM, +S1, +S2. absent: Murmur - GI/Abdominal Exam GI & Abdominal Exam: Soft, Normal Bowel Sounds. absent: Tenderness - Extremities Exam Extremities Exam: Full ROM, Normal Capillary Refill, Normal Inspection. absent : Joint Swelling, Pedal Edema - Back Exam Back Exam: Full ROM, NORMAL INSPECTION - Neurological Exam Neurological Exam: Abnormal Gait, Alert, Awake, CN II-XII Intact, Oriented x3 - Psychiatric Exam Psychiatric exam: Normal Affect, Normal Mood - Skin Skin Exam: Dry, Intact, Normal Color, Warm Assessment and Plan (1) Common bile duct obstruction Assessment & Plan: Prior Choleangiogram Confirmed. Chest and Epigatsric Pain-Resolved Serial Trop Negative T-Tube (PCT) dislodged High Risk for Ascending Choleangitis and Obstructive Jaundice Surgery recommended GI to do ERCP> GI on Board Continue to Monitor V/S and CMP Pain Medication PRN Going for ERCP tomorrow. Status: Acute (2) Anxiety Status: Chronic (3) COPD (chronic obstructive pulmonary disease) Status: Chronic (4) DJD (degenerative joint disease) Status: Chronic (5) GERD (gastroesophageal reflux disease) Status: Chronic (6) HTN (hypertension) Status: Chronic Status: Chronic
[2017-01-14] MEDS: Albuterol-Ipratrop 3 mg / 0.5 (3 ml) UD INH SCH ×4 (01:03→20:12)
[2017-01-14] MEDS: Potassium Chl 20 mEq in D5-NS 1,000 ML IV SCH ×2 (03:30→06:05)
--- NOTE | 2017-01-14 08:18 | CP.PCM.CON ---
History of Present Illness - History of Present Illness History of Present Illness: This 76- year-old female was seen at the request of her senior product marketing manager requested a cardiac evaluation before proceeding with an endoscopy. The patient has had a history of chronic pancreatitis and had had a PTC tube inserted in October. The tube was dislodged and the patient was sent back from a long-term where she was recuperating. She has a long history of anxiety disorder and takes multiple medications for the same. She gives history of being a hypertensive but denies having diabetes or prior cardiac illness requiring cardiac medications. She denies being a smoker. She also has a history of fibromyalgia and indicates that she is mostly sedentary. She is able to ambulate from her recliner to the bathroom or from her recliner to kitchen and back. She denies walking outdoors for number of years and denies climbing any flights of stairs because of leg weakness. On physical examination this is an elderly lady who is able to lie virtually flat and carry on a conversation. She breathes at 16 breaths per minute and a has a heart rate of 74 bpm which is regular. Her blood pressure was 114/70 mmHg. Her jugular venous pressure was not elevated and there was no edema over her lower extremities. The patient has been in bed for more than 24 hours. Her pedal pulses were well felt. Her extremities were warm and the nailbeds were pink. There was no central or peripheral cyanosis. There was no clubbing. The apex was not palpable. The first and second heart sounds are normal. There was no murmur or gallop. There were no rales. Abdomen was soft. A vague sense of tenderness was evident in the right hypochondrial area. There was no guarding or rigidity. Her electrocardiogram showed sinus rhythm with baseline artifact superimposed on them but otherwise normal pattern. Review of her earlier electro-cardiogram showed sinus rhythm with a normal EKG pattern. An echocardiogram in September of this year shows preserved left ventricular systolic function with no significant valvular abnormalities. Her lab data was noted. Her BUN and creatinine and electrolytes were normal. There was no leukocytosis. Impression: History of chronic pancreatitis. Hypertension. Fibromyalgia. Anxiety. The patient is stable from cardiovascular point of view to proceed with an endoscopy with intravenous sedation. Past Patient History - Infectious Disease Hx of Infectious Diseases: None - Tetanus Immunizations Tetanus Immunization: Unknown - Past Medical History & Family History Past Medical History?: Yes - Past Social History Smoking Status: Never Smoked - CARDIAC Hx Cardia Arrhythmia: Yes (Flutter) Hx Hypertension: Yes Hx Pacemaker: No Hx Peripheral Edema: Yes (+2) - PULMONARY Hx Bronchitis: Yes Hx Chronic Obstructive Pulmonary Disease (COPD): Yes Hx Pneumonia: Yes (5 YRS AGO) - HEENT Hx Glaucoma: Yes - RENAL Hx Chronic Kidney Disease: No - ENDOCRINE/METABOLIC Hx Endocrine Disorders: No - HEMATOLOGICAL/ONCOLOGICAL Hx Anemia: No Hx Human Immunodeficiency Virus (HIV): No - INTEGUMENTARY Hx Dermatological Problems: No - MUSCULOSKELETAL/RHEUMATOLOGICAL Hx Arthritis: Yes Hx Fractures: Yes Hx Osteoporosis: Yes - GASTROINTESTINAL Hx Pancreatitis: Yes - GENITOURINARY/GYNECOLOGICAL Hx Sexually Transmitted Disorders: No - PSYCHIATRIC Hx Anxiety: Yes Hx Depression: Yes - SURGICAL HISTORY Hx Carotid Endarterectomy: Yes - ANESTHESIA Hx Anesthesia: Yes Hx Anesthesia Reactions: No Hx Malignant Hyperthermia: No Meds Allergies/Adverse Reactions: Allergies Allergy/AdvReac Type Severity Reaction Status Date / Time Penicillins Allergy RASH Verified 01/12/17 13:03 - Medications Medications: Current Medications Acetaminophen (Tylenol 325mg Tab) 650 mg PO Q6 PRN PRN Reason: Pain, moderate (4-7) Last Admin: 01/13/17 10:58 Dose: 650 mg Al Hydrox/Mg Hydrox/Simethicone (Maalox Plus 30 Ml) 30 ml PO Q6 PRN PRN Reason: Indigestion / Heartburn Last Admin: 01/13/17 19:04 Dose: 30 ml Albuterol/Ipratropium (Duoneb 3 Mg/0.5 Mg (3 Ml) Ud) 3 ml INH RQ6 [facility] Last Admin: 01/14/17 07:31 Dose: 3 ml Alprazolam (Xanax) 0.25 mg PO TID [facility] Stop: 01/20/17 09:01 Last Admin: 01/13/17 20:10 Dose: 0.25 mg Amlodipine Besylate (Norvasc) 5 mg PO DAILY [facility] Last Admin: 01/13/17 09:08 Dose: 5 mg Diphenhydramine HCl (Benadryl) 25 mg PO Q12 PRN PRN Reason: Allergy symptoms Docusate Sodium (Colace) 100 mg PO TID PRN PRN Reason: Constipation Duloxetine HCl (Cymbalta) 60 mg PO HS [facility] Last Admin: 01/13/17 22:10 Dose: 60 mg Ergocalciferol (Drisdol 50,000 Intl Units Cap) 1 cap PO MO [facility] Last Admin: 01/12/17 23:57 Dose: 1 cap Heparin Sodium (Porcine) (Heparin) 5,000 units SC Q8 [facility] PRN Reason: Protocol Last Admin: 01/13/17 16:21 Dose: 5,000 units Hydrochlorothiazide (Hydrodiuril) 25 mg PO DAILY [facility] Last Admin: 01/13/17 09:08 Dose: 25 mg Ciprofloxacin (Cipro 400mg/200ml Dsw) 400 mg in 200 mls @ 200 mls/hr IVPB Q12 [facility] PRN Reason: Protocol Last Admin: 01/13/17 20:10 Dose: 200 mls/hr Potassium Chloride/Dextrose/Sod Cl (Potassium Chl 20 Meq In D5-Ns) 1,000 mls @ 80 mls/hr IV .[id number] [facility] Stop: 01/14/17 14:56 Last Admin: 01/14/17 06:05 Dose: 80 mls/hr Ondansetron HCl (Zofran Tab) 4 mg PO Q8H PRN PRN Reason: Nausea/Vomiting Sennosides (Senokot Tab) 8.6 mg PO BID PRN PRN Reason: Constipation Tramadol HCl (Ultram) 100 mg PO Q6 PRN PRN Reason: Pain, severe (8-10) Last Admin: 01/13/17 22:26 Dose: 100 mg Trazodone HCl (Desyrel) [address] [facility] Last Admin: 01/13/17 22:10 Dose: 50 mg Results - Vital Signs Recent Vital Signs: Last Vital Signs Temp 97.8 F 01/14/17 00:40 Pulse 96 H 01/14/17 00:40 Resp 20 01/14/17 00:40 BP 103/60 01/14/17 00:40 Pulse Ox 96 01/14/17 00:40 - Labs Result Diagrams: 01/13/17 06:05 01/13/17 06:05
[2017-01-14] MEDS ORDERED: Iohexol 240 (50 ml) ONE (08:33)
[2017-01-14] MEDS ORDERED: Glucagon Recombinant 1 mg Inj ONE (08:34)
[2017-01-14] MEDS ORDERED: Midazolam 2 MG/2 ML VIAL ONE (08:35)
[2017-01-14] MEDS ORDERED: Propofol 10 mg/ml Inj (20 ML) ONE ×2 (08:35→08:57)
[2017-01-14] MEDS ORDERED: Labetalol 5mg/ml (4ml) ONE (08:37)
[2017-01-14] MEDS ORDERED: ePHEDrine 50 mg/ml Inj ONE (08:37)
[2017-01-14] MEDS ORDERED: Esmolol 100 mg/10ml Inj IV ONE (08:38)
[2017-01-14] MEDS: Ciprofloxacin 400mg/200ml D5W 400 MG/200 ML BAG IVPB SCH ×2 (08:38→21:09)
[2017-01-14] MEDS ORDERED: Sodium Chloride 0.9% 500 ML IV ONE (08:55)
[2017-01-14] MEDS ORDERED: Indomethacin 50 MG Suppository PR ONE ×2 (09:17→15:04)
--- NOTE | 2017-01-14 11:00 | CP.PCM.PN ---
<Marck Duran - Last Filed: 01/14/17 16:25> Subjective - Date & Time of Evaluation Date of Evaluation: 01/14/17 Time of Evaluation: 09:00 - Subjective Subjective: General Surgery- Dr. Reddy Patient S&E at bedside. per nursing notes, no acute events overnight. Patient scheduled for an ERCP by GI today. NPO. denies F/C N/V/D abd pain at this time. Objective - Vital Signs/Intake and Output Vital Signs (last 24 hours): Temp Pulse Resp BP Pulse Ox 97.9 F 92 H 18 110/70 96 01/14/17 08:49 01/14/17 08:49 01/14/17 08:49 01/14/17 08:49 01/14/17 08:49 Intake and Output: 01/14/17 01/14/17 06:59 18:59 Intake Total 200 Balance 200 - Medications Medications: Current Medications Acetaminophen (Tylenol 325mg Tab) 650 mg PO Q6 PRN PRN Reason: Pain, moderate (4-7) Last Admin: 01/13/17 10:58 Dose: 650 mg Al Hydrox/Mg Hydrox/Simethicone (Maalox Plus 30 Ml) 30 ml PO Q6 PRN PRN Reason: Indigestion / Heartburn Last Admin: 01/13/17 19:04 Dose: 30 ml Albuterol/Ipratropium (Duoneb 3 Mg/0.5 Mg (3 Ml) Ud) 3 ml INH RQ6 PATTI Last Admin: 01/14/17 07:31 Dose: 3 ml Alprazolam (Xanax) 0.25 mg PO TID [facility] Stop: 01/20/17 09:01 Last Admin: 01/13/17 20:10 Dose: 0.25 mg Amlodipine Besylate (Norvasc) 5 mg PO DAILY [facility] Last Admin: 01/13/17 09:08 Dose: 5 mg Diphenhydramine HCl (Benadryl) 25 mg PO Q12 PRN PRN Reason: Allergy symptoms Docusate Sodium (Colace) 100 mg PO TID PRN PRN Reason: Constipation Duloxetine HCl (Cymbalta) 60 mg PO HS [facility] Last Admin: 01/13/17 22:10 Dose: 60 mg Ergocalciferol (Drisdol 50,000 Intl Units Cap) 1 cap PO MO [facility] Last Admin: 01/12/17 23:57 Dose: 1 cap Heparin Sodium (Porcine) (Heparin) 5,000 units SC Q8 [facility] PRN Reason: Protocol Last Admin: 01/13/17 16:21 Dose: 5,000 units Hydrochlorothiazide (Hydrodiuril) 25 mg PO DAILY [facility] Last Admin: 01/13/17 09:08 Dose: 25 mg Ciprofloxacin (Cipro 400mg/200ml Dsw) 400 mg in 200 mls @ 200 mls/hr IVPB Q12 PATTI PRN Reason: Protocol Last Admin: 01/14/17 08:38 Dose: 200 mls/hr Potassium Chloride/Dextrose/Sod Cl (Potassium Chl 20 Meq In D5-Ns) 1,000 mls @ 80 mls/hr IV .[id number] [facility] Stop: 01/14/17 14:56 Last Admin: 01/14/17 06:05 Dose: 80 mls/hr Ondansetron HCl (Zofran Tab) 4 mg PO Q8H PRN PRN Reason: Nausea/Vomiting Sennosides (Senokot Tab) 8.6 mg PO BID PRN PRN Reason: Constipation Tramadol HCl (Ultram) 100 mg PO Q6 PRN PRN Reason: Pain, severe (8-10) Last Admin: 01/13/17 22:26 Dose: 100 mg Trazodone HCl (Desyrel) 50 mg PO HS [facility] Last Admin: 01/13/17 22:10 Dose: 50 mg - Labs Labs: 01/13/17 06:05 01/13/17 06:05 PT 12.8 Seconds (9.8-13.1) 01/12/17 14:54 INR 1.1 (0.9-1.2) 01/12/17 14:54 - Constitutional Appears: No Acute Distress, Chronically Ill - Head Exam Head Exam: ATRAUMATIC - Eye Exam Eye Exam: EOMI. absent: Scleral icterus - ENT Exam ENT Exam: Mucous Membranes Moist - Respiratory Exam Respiratory Exam: NORMAL BREATHING PATTERN. absent: Accessory Muscle Use, Respiratory Distress - Cardiovascular Exam Cardiovascular Exam: +S1, +S2 - GI/Abdominal Exam GI & Abdominal Exam: Guarding, Soft, Tenderness. absent: Distended, Firm, Rigid - Neurological Exam Neurological Exam: Alert, Awake, Oriented x3 - Psychiatric Exam Psychiatric exam: Normal Affect - Skin Skin Exam: Intact, Warm Assessment and Plan - Assessment and Plan (Free Text) Assessment: 76F s/p dislodge josue tube displacement Plan: - GI to do ERCP today * Stent placed in Pancreatic duct, sphincterotomy - no acute surgical intervention at this time - recommend follow up as outpatient for interval lap josue - reconsult as needed - discussed with Dr. Reddy surgical attending Marck Duran PGY1 <Kyle Reddy - Last Filed: 01/16/17 23:25> Objective - Vital Signs/Intake and Output Vital Signs (last 24 hours): Temp Pulse Resp BP Pulse Ox 97.5 F L 75 20 119/74 92 L 01/16/17 08:39 01/16/17 09:52 01/16/17 08:39 01/16/17 09:52 01/16/17 08:39 - Labs Labs: 01/16/17 06:15 01/16/17 06:15 PT 12.8 Seconds (9.8-13.1) 01/12/17 14:54 INR 1.1 (0.9-1.2) 01/12/17 14:54 Attending/Attestation - Attestation I have personally seen and examined this patient.: Yes I have fully participated in the care of the patient.: Yes I have reviewed all pertinent clinical information, including history, physical exam and plan: Yes Notes (Text): Pt was seen and examined at bedside Agree with above note and assessment Pt is s/p ERCP, Doing well No Need for further surgical intervention at present f.u as out pt Plan d.w PMD in detail. Repeat labs in am c.w current mx Plan d/w pt in detail Risk and benefit explained in detail.
[2017-01-14] MEDS ORDERED: Simethicone 80 mg Chewtab PO PRN (12:14)
[2017-01-14] MEDS ORDERED: Albuterol-Ipratrop 3 mg / 0.5 (3 ml) UD ONE (13:09)
--- NOTE | 2017-01-14 16:40 | RAD ---
PROCEDURE: Fluoroscopy over 1 hour HISTORY: ERCP COMPARISON: None TECHNIQUE: Standard protocol for this study/examination. FINDINGS: Total fluoroscopic time (continuous mode) utilized during the procedure: 117.4 seconds. Total exam DLP: (mGy): 39.63 IMPRESSION: Total fluoroscopic time (continuous mode) utilized during the procedure: 5.0
[2017-01-14] MEDS: Alum-Mag Hydrox-Simethicone Susp (30 mL) PO PRN (17:11)
--- NOTE | 2017-01-15 00:58 | CP.PCM.PN ---
Subjective - Date & Time of Evaluation Date of Evaluation: 01/14/17 Time of Evaluation: 11:20 - Subjective Subjective: Seen and Examined at the bed side. S/P ERCP and +Pain to RUQ after the ERCP with Sphinctorotomy, and Ventral Pancreatic Duct Stent Placement. Denies Fever or chills. Objective - Vital Signs/Intake and Output Vital Signs (last 24 hours): Temp Pulse Resp BP Pulse Ox 98.5 F 83 20 96/60 L 99 01/15/17 00:12 01/15/17 00:12 01/15/17 00:12 01/15/17 00:12 01/15/17 00:12 Intake and Output: 01/14/17 01/15/17 18:59 06:59 Intake Total 200 Balance 200 - Medications Medications: Current Medications Acetaminophen (Tylenol 325mg Tab) 650 mg PO Q6 PRN PRN Reason: Pain, moderate (4-7) Last Admin: 01/13/17 10:58 Dose: 650 mg Al Hydrox/Mg Hydrox/Simethicone (Maalox Plus 30 Ml) 30 ml PO Q6 PRN PRN Reason: Indigestion / Heartburn Last Admin: 01/14/17 17:11 Dose: 30 ml Albuterol/Ipratropium (Duoneb 3 Mg/0.5 Mg (3 Ml) Ud) 3 ml INH RQ6 PATTI Last Admin: 01/14/17 20:12 Dose: 3 ml Alprazolam (Xanax) 0.25 mg PO TID [facility] Stop: 01/20/17 09:01 Last Admin: 01/14/17 16:39 Dose: 0.25 mg Amlodipine Besylate (Norvasc) 5 mg PO DAILY [facility] Last Admin: 01/14/17 11:32 Dose: 5 mg Diphenhydramine HCl (Benadryl) 25 mg PO Q12 PRN PRN Reason: Allergy symptoms Last Admin: 01/15/17 00:08 Dose: 25 mg Docusate Sodium (Colace) 100 mg PO TID PRN PRN Reason: Constipation Last Admin: 01/14/17 22:00 Dose: 100 mg Duloxetine HCl (Cymbalta) 60 mg PO HS [facility] Last Admin: 01/14/17 21:07 Dose: 60 mg Ergocalciferol (Drisdol 50,000 Intl Units Cap) 1 cap PO MO [facility] Last Admin: 01/12/17 23:57 Dose: 1 cap Heparin Sodium (Porcine) (Heparin) 5,000 units SC Q8 [facility] PRN Reason: Protocol Last Admin: 01/15/17 00:09 Dose: 5,000 units Hydrochlorothiazide (Hydrodiuril) 25 mg PO DAILY [facility] Last Admin: 01/14/17 11:32 Dose: 25 mg Ciprofloxacin (Cipro 400mg/200ml Dsw) 400 mg in 200 mls @ 200 mls/hr IVPB Q12 PATTI PRN Reason: Protocol Last Admin: 01/14/17 21:09 Dose: 200 mls/hr Ondansetron HCl (Zofran Tab) 4 mg PO Q8H PRN PRN Reason: Nausea/Vomiting Last Admin: 01/14/17 11:35 Dose: 4 mg Sennosides (Senokot Tab) 8.6 mg PO BID PRN PRN Reason: Constipation Last Admin: 01/14/17 22:01 Dose: 8.6 mg Simethicone (Mylicon Chew Tab) 80 mg PO TID PRN PRN Reason: Flatulence Tramadol HCl (Ultram) 100 mg PO Q6 PRN PRN Reason: Pain, severe (8-10) Last Admin: 01/14/17 21:06 Dose: 100 mg Trazodone HCl (Desyrel) 50 mg PO HS [facility] Last Admin: 01/14/17 21:08 Dose: 50 mg - Labs Labs: 01/13/17 06:05 01/13/17 06:05 PT 12.8 Seconds (9.8-13.1) 01/12/17 14:54 INR 1.1 (0.9-1.2) 01/12/17 14:54 - Constitutional Appears: Well, No Acute Distress - Head Exam Head Exam: ATRAUMATIC, NORMAL INSPECTION, NORMOCEPHALIC - Eye Exam Eye Exam: EOMI, Normal appearance, PERRL Pupil Exam: NORMAL ACCOMODATION, PERRL - ENT Exam ENT Exam: Mucous Membranes Moist, Normal Exam - Neck Exam Neck Exam: Full ROM, Normal Inspection. absent: Lymphadenopathy - Respiratory Exam Respiratory Exam: Clear to Ausculation Bilateral, NORMAL BREATHING PATTERN - Cardiovascular Exam Cardiovascular Exam: REGULAR RHYTHM, +S1, +S2. absent: Murmur - GI/Abdominal Exam GI & Abdominal Exam: Soft, Tenderness, Normal Bowel Sounds - Extremities Exam Extremities Exam: Full ROM, Normal Capillary Refill, Normal Inspection. absent : Joint Swelling, Pedal Edema - Back Exam Back Exam: NORMAL INSPECTION - Neurological Exam Neurological Exam: Alert, Awake, CN II-XII Intact, Normal Gait, Oriented x3 - Psychiatric Exam Psychiatric exam: Normal Affect, Normal Mood - Skin Skin Exam: Dry, Intact, Normal Color, Warm Assessment and Plan (1) Common bile duct obstruction Assessment & Plan: T-Tube (PCT) dislodged High Risk for Ascending Choleangitis and Obstructive Jaundice S/P ERCP with Spnictortomy and Stent Placement Continue to Monitor V/S and CMP Pain Medication PRN Status: Acute (2) Anxiety Status: Chronic (3) COPD (chronic obstructive pulmonary disease) Status: Chronic (4) DJD (degenerative joint disease) Status: Chronic (5) GERD (gastroesophageal reflux disease) Status: Chronic (6) HTN (hypertension) Status: Chronic Status: Chronic
[2017-01-15] MEDS: Albuterol-Ipratrop 3 mg / 0.5 (3 ml) UD INH SCH ×4 (01:23→19:38)
[2017-01-15 06:42] LABS: HEMATOCRIT 30.6 % (34.0-47.0); MEAN CELL VOLUME 92.3 fl (81.0-99.0); MEAN CORPUSCULAR HEMOGLOBIN 30.3 pg (27.0-31.0); MEAN CORPUSCULAR HGB CONC 32.8 g/dL (33.0-37.0); RED CELL DISTRIBUTION WIDTH 18.5 % (11.5-14.5); WHITE BLOOD COUNT 4.1 K/uL (4.8-10.8)
[2017-01-15 07:09] LABS: SODIUM 139 mmol/l (132-148)
[2017-01-15 07:13] LABS: ALB/GLOB RATIO 0.9 (1.0-2.1); ALKALINE PHOSPHATASE 265 U/L (38-126); ALT/SGPT 169 U/L (9-52); AST/SGOT 572 U/L (14-36); BILIRUBIN,TOTAL 1.6 mg/dl (0.2-1.3); BLOOD UREA NITROGEN 10 mg/dl (7-17); CALCIUM 8.8 mg/dL (8.4-10.2); CARBON DIOXIDE 31 mmol/L (22-30); CHLORIDE 102 mmol/L (98-107); GFR AFRICAN-AMERICAN > 60; GLUCOSE,RANDOM 95 mg/dL (65-105); POTASSIUM 4.2 MMOL/L (3.6-5.0); TOTAL PROTEIN 6.3 G/DL (6.3-8.2)
[2017-01-15] MEDS: Ciprofloxacin 400mg/200ml D5W 400 MG/200 ML BAG IVPB SCH ×2 (08:49→21:26)
--- NOTE | 2017-01-15 13:45 | CP.PCM.PN ---
<Jesus ManuelBethanie - Last Filed: 01/15/17 13:43> Subjective - Date & Time of Evaluation Date of Evaluation: 01/15/17 Time of Evaluation: 13:43 - Subjective Subjective: GI Pt s&e. Pt underwent ERCP yesterday and tolerated it well. Denies F/C/N/V/D/CP/ SOB. Tolerating diet. Objective - Vital Signs/Intake and Output Vital Signs (last 24 hours): Temp Pulse Resp BP Pulse Ox 97.8 F 84 20 108/63 97 01/15/17 08:02 01/15/17 08:02 01/15/17 08:02 01/15/17 08:51 01/15/17 08:02 - Medications Medications: Current Medications Acetaminophen (Tylenol 325mg Tab) 650 mg PO Q6 PRN PRN Reason: Pain, moderate (4-7) Last Admin: 01/13/17 10:58 Dose: 650 mg Al Hydrox/Mg Hydrox/Simethicone (Maalox Plus 30 Ml) 30 ml PO Q6 PRN PRN Reason: Indigestion / Heartburn Last Admin: 01/14/17 17:11 Dose: 30 ml Albuterol/Ipratropium (Duoneb 3 Mg/0.5 Mg (3 Ml) Ud) 3 ml INH RQ6 [facility] Last Admin: 01/15/17 07:40 Dose: Not Given Alprazolam (Xanax) 0.25 mg PO TID [facility] Stop: 01/20/17 09:01 Last Admin: 01/15/17 13:15 Dose: 0.25 mg Alprazolam (Xanax) 0.5 mg PO Q8 PRN PRN Reason: Anxiety Amlodipine Besylate (Norvasc) 5 mg PO DAILY [facility] Last Admin: 01/15/17 08:51 Dose: 5 mg Diphenhydramine HCl (Benadryl) 25 mg PO Q12 PRN PRN Reason: Allergy symptoms Last Admin: 01/15/17 00:08 Dose: 25 mg Docusate Sodium (Colace) 100 mg PO TID PRN PRN Reason: Constipation Last Admin: 01/15/17 08:51 Dose: 100 mg Duloxetine HCl (Cymbalta) 60 mg PO HS [facility] Last Admin: 01/14/17 21:07 Dose: 60 mg Ergocalciferol (Drisdol 50,000 Intl Units Cap) 1 cap PO MO [facility] Last Admin: 01/12/17 23:57 Dose: 1 cap Heparin Sodium (Porcine) (Heparin) 5,000 units SC Q8 [facility] PRN Reason: Protocol Last Admin: 01/15/17 08:50 Dose: 5,000 units Hydrochlorothiazide (Hydrodiuril) 25 mg PO DAILY [facility] Last Admin: 01/15/17 08:50 Dose: 25 mg Ciprofloxacin (Cipro 400mg/200ml Dsw) 400 mg in 200 mls @ 200 mls/hr IVPB Q12 PATTI PRN Reason: Protocol Last Admin: 01/15/17 08:49 Dose: 200 mls/hr Ondansetron HCl (Zofran Tab) 4 mg PO Q8H PRN PRN Reason: Nausea/Vomiting Last Admin: 01/14/17 11:35 Dose: 4 mg Sennosides (Senokot Tab) 8.6 mg PO BID PRN PRN Reason: Constipation Last Admin: 01/14/17 22:01 Dose: 8.6 mg Simethicone (Mylicon Chew Tab) 80 mg PO TID PRN PRN Reason: Flatulence Tramadol HCl (Ultram) 100 mg PO Q6 PRN PRN Reason: Pain, severe (8-10) Last Admin: 01/15/17 11:21 Dose: 100 mg Trazodone HCl (Desyrel) 50 mg PO HS [facility] Last Admin: 01/14/17 21:08 Dose: 50 mg - Labs Labs: 01/15/17 06:30 01/15/17 06:30 PT 12.8 Seconds (9.8-13.1) 01/12/17 14:54 INR 1.1 (0.9-1.2) 01/12/17 14:54 - Constitutional Appears: No Acute Distress - Head Exam Head Exam: ATRAUMATIC, NORMAL INSPECTION, NORMOCEPHALIC - Eye Exam Eye Exam: EOMI, Normal appearance, PERRL Pupil Exam: NORMAL ACCOMODATION, PERRL - ENT Exam ENT Exam: Mucous Membranes Moist, Normal Exam - Neck Exam Neck Exam: Full ROM, Normal Inspection. absent: Lymphadenopathy - Respiratory Exam Respiratory Exam: Clear to Ausculation Bilateral, NORMAL BREATHING PATTERN - Cardiovascular Exam Cardiovascular Exam: REGULAR RHYTHM, +S1, +S2. absent: Murmur - GI/Abdominal Exam GI & Abdominal Exam: Soft, Normal Bowel Sounds. absent: Distended, Tenderness - Extremities Exam Extremities Exam: Full ROM, Normal Capillary Refill, Normal Inspection. absent : Joint Swelling, Pedal Edema - Back Exam Back Exam: NORMAL INSPECTION - Neurological Exam Neurological Exam: Alert, Awake, CN II-XII Intact, Normal Gait, Oriented x3 - Psychiatric Exam Psychiatric exam: Normal Affect, Normal Mood - Skin Skin Exam: Dry, Intact, Normal Color, Warm Assessment and Plan - Assessment and Plan (Free Text) Assessment: POD 1 S/P ERCP Elevated LFT -HHD -Monitor LFT -We will follow Will DW Dr. Mariscal. <Cy Mariscal - Last Filed: 01/15/17 17:50> Objective - Vital Signs/Intake and Output Vital Signs (last 24 hours): Temp Pulse Resp BP Pulse Ox 98.3 F 93 H 20 107/69 93 L 01/15/17 16:36 01/15/17 16:36 01/15/17 16:36 01/15/17 16:36 01/15/17 16:36 - Medications Medications: Current Medications Acetaminophen (Tylenol 325mg Tab) 650 mg PO Q6 PRN PRN Reason: Pain, moderate (4-7) Last Admin: 01/15/17 15:58 Dose: 650 mg Al Hydrox/Mg Hydrox/Simethicone (Maalox Plus 30 Ml) 30 ml PO Q6 PRN PRN Reason: Indigestion / Heartburn Last Admin: 01/14/17 17:11 Dose: 30 ml Albuterol/Ipratropium (Duoneb 3 Mg/0.5 Mg (3 Ml) Ud) 3 ml INH RQ6 PATTI Last Admin: 01/15/17 13:51 Dose: 3 ml Alprazolam (Xanax) 0.25 mg PO TID [facility] Stop: 01/20/17 09:01 Last Admin: 01/15/17 17:06 Dose: 0.25 mg Alprazolam (Xanax) 0.5 mg PO Q8 PRN PRN Reason: Anxiety Amlodipine Besylate (Norvasc) 5 mg PO DAILY [facility] Last Admin: 01/15/17 08:51 Dose: 5 mg Diphenhydramine HCl (Benadryl) 25 mg PO Q12 PRN PRN Reason: Allergy symptoms Last Admin: 01/15/17 00:08 Dose: 25 mg Docusate Sodium (Colace) 100 mg PO TID PRN PRN Reason: Constipation Last Admin: 01/15/17 08:51 Dose: 100 mg Duloxetine HCl (Cymbalta) 60 mg PO HS [facility] Last Admin: 01/14/17 21:07 Dose: 60 mg Ergocalciferol (Drisdol 50,000 Intl Units Cap) 1 cap PO MO [facility] Last Admin: 01/12/17 23:57 Dose: 1 cap Heparin Sodium (Porcine) (Heparin) 5,000 units SC Q8 [facility] PRN Reason: Protocol Last Admin: 01/15/17 17:09 Dose: 5,000 units Hydrochlorothiazide (Hydrodiuril) 25 mg PO DAILY [facility] Last Admin: 01/15/17 08:50 Dose: 25 mg Ciprofloxacin (Cipro 400mg/200ml Dsw) 400 mg in 200 mls @ 200 mls/hr IVPB Q12 [facility]TI PRN Reason: Protocol Last Admin: 01/15/17 08:49 Dose: 200 mls/hr Ondansetron HCl (Zofran Tab) 4 mg PO Q8H PRN PRN Reason: Nausea/Vomiting Last Admin: 01/14/17 11:35 Dose: 4 mg Sennosides (Senokot Tab) 8.6 mg PO BID PRN PRN Reason: Constipation Last Admin: 01/14/17 22:01 Dose: 8.6 mg Simethicone (Mylicon Chew Tab) 80 mg PO TID PRN PRN Reason: Flatulence Last Admin: 01/15/17 17:09 Dose: 80 mg Tramadol HCl (Ultram) 100 mg PO Q6 PRN PRN Reason: Pain, severe (8-10) Last Admin: 01/15/17 11:21 Dose: 100 mg Trazodone HCl (Desyrel) 50 mg PO HS [facility] Last Admin: 01/14/17 21:08 Dose: 50 mg - Labs Labs: 01/15/17 06:30 01/15/17 06:30 PT 12.8 Seconds (9.8-13.1) 01/12/17 14:54 INR 1.1 (0.9-1.2) 01/12/17 14:54 Assessment and Plan (1) Abdominal pain Status: Acute - Assessment and Plan (Free Text) Assessment: LFTs elevated today though Bili only 1.6 . LFTs were not done the morning of the ERCP.Clinically patient doing well and is without pain. She is tolerating solid diet. Repeat in the morning.
--- NOTE | 2017-01-16 00:14 | CP.PCM.PN ---
Subjective - Date & Time of Evaluation Date of Evaluation: 01/15/17 Time of Evaluation: 14:55 - Subjective Subjective: Patient denies any abdominal pain, Nausea, vomiting or Fever/chills. All LFT Elevated significantly since the ERCP Procedure yesterday. Objective - Vital Signs/Intake and Output Vital Signs (last 24 hours): Temp Pulse Resp BP Pulse Ox 98.3 F 93 H 20 107/69 93 L 01/15/17 16:36 01/15/17 16:36 01/15/17 16:36 01/15/17 16:36 01/15/17 16:36 - Medications Medications: Current Medications Acetaminophen (Tylenol 325mg Tab) 650 mg PO Q6 PRN PRN Reason: Pain, moderate (4-7) Last Admin: 01/15/17 15:58 Dose: 650 mg Al Hydrox/Mg Hydrox/Simethicone (Maalox Plus 30 Ml) 30 ml PO Q6 PRN PRN Reason: Indigestion / Heartburn Last Admin: 01/14/17 17:11 Dose: 30 ml Albuterol/Ipratropium (Duoneb 3 Mg/0.5 Mg (3 Ml) Ud) 3 ml INH RQ6 PATTI Last Admin: 01/15/17 19:38 Dose: Not Given Alprazolam (Xanax) 0.25 mg PO TID [facility] Stop: 01/20/17 09:01 Last Admin: 01/15/17 17:06 Dose: 0.25 mg Alprazolam (Xanax) 0.5 mg PO Q8 PRN PRN Reason: Anxiety Amlodipine Besylate (Norvasc) 5 mg PO DAILY [facility] Last Admin: 01/15/17 08:51 Dose: 5 mg Diphenhydramine HCl (Benadryl) 25 mg PO Q12 PRN PRN Reason: Allergy symptoms Last Admin: 01/16/17 00:02 Dose: 25 mg Docusate Sodium (Colace) 100 mg PO TID PRN PRN Reason: Constipation Last Admin: 01/15/17 08:51 Dose: 100 mg Duloxetine HCl (Cymbalta) 60 mg PO HS [facility] Last Admin: 01/15/17 21:27 Dose: 60 mg Ergocalciferol (Drisdol 50,000 Intl Units Cap) 1 cap PO MO [facility] Last Admin: 01/12/17 23:57 Dose: 1 cap Heparin Sodium (Porcine) (Heparin) 5,000 units SC Q8 [facility] PRN Reason: Protocol Last Admin: 01/15/17 17:09 Dose: 5,000 units Hydrochlorothiazide (Hydrodiuril) 25 mg PO DAILY [facility] Last Admin: 01/15/17 08:50 Dose: 25 mg Ciprofloxacin (Cipro 400mg/200ml Dsw) 400 mg in 200 mls @ 200 mls/hr IVPB Q12 [facility]TI PRN Reason: Protocol Last Admin: 01/15/17 21:26 Dose: 200 mls/hr Ondansetron HCl (Zofran Tab) 4 mg PO Q8H PRN PRN Reason: Nausea/Vomiting Last Admin: 01/14/17 11:35 Dose: 4 mg Sennosides (Senokot Tab) 8.6 mg PO BID PRN PRN Reason: Constipation Last Admin: 01/14/17 22:01 Dose: 8.6 mg Simethicone (Mylicon Chew Tab) 80 mg PO TID PRN PRN Reason: Flatulence Last Admin: 01/15/17 17:09 Dose: 80 mg Tramadol HCl (Ultram) 100 mg PO Q6 PRN PRN Reason: Pain, severe (8-10) Last Admin: 01/15/17 21:52 Dose: 100 mg Trazodone HCl (Desyrel) 50 mg PO HS [facility] Last Admin: 01/15/17 21:27 Dose: 50 mg - Labs Labs: 01/15/17 06:30 01/15/17 06:30 PT 12.8 Seconds (9.8-13.1) 01/12/17 14:54 INR 1.1 (0.9-1.2) 01/12/17 14:54 - Constitutional Appears: Well, No Acute Distress - Head Exam Head Exam: ATRAUMATIC, NORMAL INSPECTION, NORMOCEPHALIC - Eye Exam Eye Exam: EOMI, Normal appearance, PERRL Pupil Exam: NORMAL ACCOMODATION, PERRL - ENT Exam ENT Exam: Mucous Membranes Moist, Normal Exam - Neck Exam Neck Exam: Full ROM, Normal Inspection. absent: Lymphadenopathy - Respiratory Exam Respiratory Exam: Clear to Ausculation Bilateral, NORMAL BREATHING PATTERN - Cardiovascular Exam Cardiovascular Exam: REGULAR RHYTHM, +S1, +S2. absent: Murmur - GI/Abdominal Exam GI & Abdominal Exam: Soft, Normal Bowel Sounds. absent: Tenderness - Extremities Exam Extremities Exam: Full ROM, Normal Capillary Refill, Normal Inspection. absent : Joint Swelling, Pedal Edema - Back Exam Back Exam: NORMAL INSPECTION - Neurological Exam Neurological Exam: Alert, Awake, CN II-XII Intact, Normal Gait, Oriented x3 - Psychiatric Exam Psychiatric exam: Normal Affect, Normal Mood - Skin Skin Exam: Dry, Intact, Normal Color, Warm Assessment and Plan (1) Common bile duct obstruction Assessment & Plan: T-Tube (PCT) dislodged High Risk for Ascending Choleangitis and Obstructive Jaundice S/P ERCP with Sphinctoretomy and Stent Placement Liver Enzymes Elevated significantly Repeat CMP in Am Credit Collections Specialist aware (2) Anxiety Status: Chronic (3) COPD (chronic obstructive pulmonary disease) Status: Chronic (4) DJD (degenerative joint disease) Status: Chronic (5) GERD (gastroesophageal reflux disease) Status: Chronic (6) HTN (hypertension) Status: Chronic
[2017-01-16] MEDS: Albuterol-Ipratrop 3 mg / 0.5 (3 ml) UD INH SCH ×2 (01:49→10:35)
[2017-01-16 07:09] LABS: HEMATOCRIT 32.8 % (34.0-47.0); MEAN CELL VOLUME 94.2 fl (81.0-99.0); MEAN CORPUSCULAR HEMOGLOBIN 29.3 pg (27.0-31.0); RED CELL DISTRIBUTION WIDTH 18.3 % (11.5-14.5)
[2017-01-16 07:38] LABS: ALB/GLOB RATIO 0.9 (1.0-2.1); ALKALINE PHOSPHATASE 296 U/L (38-126); ALT/SGPT 144 U/L (9-52); AST/SGOT 290 U/L (14-36); BILIRUBIN,TOTAL 0.8 mg/dl (0.2-1.3); BLOOD UREA NITROGEN 12 mg/dl (7-17); CALCIUM 8.6 mg/dL (8.4-10.2); CARBON DIOXIDE 33 mmol/L (22-30); CHLORIDE 101 mmol/L (98-107); GFR AFRICAN-AMERICAN > 60; GLUCOSE,RANDOM 105 mg/dL (65-105); POTASSIUM 4.2 MMOL/L (3.6-5.0); SODIUM 140 mmol/l (132-148); TOTAL PROTEIN 6.7 G/DL (6.3-8.2)
[2017-01-16 08:40] VITALS: BP 119/74; PULSE 75; RESP 20; TEMP 97.5; O2SAT 92
[2017-01-16] MEDS: Ciprofloxacin 400mg/200ml D5W 400 MG/200 ML BAG IVPB SCH (09:51)
--- NOTE | 2017-01-16 10:54 | CP.PCM.PN ---
Subjective - Date & Time of Evaluation Date of Evaluation: 01/16/17 Time of Evaluation: 10:47 - Subjective Subjective: Patient tolerating diet and without abdominal pain since ERCP. Objective - Vital Signs/Intake and Output Vital Signs (last 24 hours): Temp Pulse Resp BP Pulse Ox 97.5 F L 75 20 119/74 92 L 01/16/17 08:39 01/16/17 09:52 01/16/17 08:39 01/16/17 09:52 01/16/17 08:39 - Medications Medications: Current Medications Acetaminophen (Tylenol 325mg Tab) 650 mg PO Q6 PRN PRN Reason: Pain, moderate (4-7) Last Admin: 01/15/17 15:58 Dose: 650 mg Al Hydrox/Mg Hydrox/Simethicone (Maalox Plus 30 Ml) 30 ml PO Q6 PRN PRN Reason: Indigestion / Heartburn Last Admin: 01/14/17 17:11 Dose: 30 ml Albuterol/Ipratropium (Duoneb 3 Mg/0.5 Mg (3 Ml) Ud) 3 ml INH RQ6 PATTI Last Admin: 01/16/17 10:35 Dose: 3 ml Alprazolam (Xanax) 0.25 mg PO TID PATTI Stop: 01/20/17 09:01 Last Admin: 01/16/17 09:51 Dose: 0.25 mg Alprazolam (Xanax) 0.5 mg PO Q8 PRN PRN Reason: Anxiety Last Admin: 01/16/17 01:44 Dose: 0.5 mg Amlodipine Besylate (Norvasc) 5 mg PO DAILY [facility] Last Admin: 01/16/17 09:52 Dose: 5 mg Diphenhydramine HCl (Benadryl) 25 mg PO Q12 PRN PRN Reason: Allergy symptoms Last Admin: 01/16/17 00:02 Dose: 25 mg Docusate Sodium (Colace) 100 mg PO TID PRN PRN Reason: Constipation Last Admin: 01/15/17 08:51 Dose: 100 mg Duloxetine HCl (Cymbalta) 60 mg PO HS [facility] Last Admin: 01/15/17 21:27 Dose: 60 mg Ergocalciferol (Drisdol 50,000 Intl Units Cap) 1 cap PO MO PATTI Last Admin: 01/12/17 23:57 Dose: 1 cap Heparin Sodium (Porcine) (Heparin) 5,000 units SC Q8 PATTI PRN Reason: Protocol Last Admin: 01/16/17 09:51 Dose: 5,000 units Hydrochlorothiazide (Hydrodiuril) 25 mg PO DAILY [facility] Last Admin: 01/16/17 09:52 Dose: 25 mg Ciprofloxacin (Cipro 400mg/200ml Dsw) 400 mg in 200 mls @ 200 mls/hr IVPB Q12 PATTI PRN Reason: Protocol Last Admin: 01/16/17 09:51 Dose: 200 mls/hr Ondansetron HCl (Zofran Tab) 4 mg PO Q8H PRN PRN Reason: Nausea/Vomiting Last Admin: 01/14/17 11:35 Dose: 4 mg Sennosides (Senokot Tab) 8.6 mg PO BID PRN PRN Reason: Constipation Last Admin: 01/14/17 22:01 Dose: 8.6 mg Simethicone (Mylicon Chew Tab) 80 mg PO TID PRN PRN Reason: Flatulence Last Admin: 01/15/17 17:09 Dose: 80 mg Tramadol HCl (Ultram) 100 mg PO Q6 PRN PRN Reason: Pain, severe (8-10) Last Admin: 01/16/17 10:15 Dose: 100 mg Trazodone HCl (Desyrel) 50 mg PO HS [facility] Last Admin: 01/15/17 21:27 Dose: 50 mg - Labs Labs: 01/16/17 06:15 01/16/17 06:15 PT 12.8 Seconds (9.8-13.1) 01/12/17 14:54 INR 1.1 (0.9-1.2) 01/12/17 14:54 - Head Exam Head Exam: ATRAUMATIC - Eye Exam Eye Exam: EOMI - ENT Exam ENT Exam: Mucous Membranes Moist - Neck Exam Neck Exam: Full ROM - Respiratory Exam Respiratory Exam: Clear to Ausculation Bilateral - Cardiovascular Exam Cardiovascular Exam: REGULAR RHYTHM - GI/Abdominal Exam GI & Abdominal Exam: Soft, Normal Bowel Sounds. absent: Tenderness Assessment and Plan (1) Abdominal pain Assessment & Plan: Clinically patient has been doing well. Transaminases have improved and Bili is now 0.6. Alk phos about the same. There may have been some post ERCP spasm to explain these labs. Stable for discharge off antibiotics. No restrictions on blood thinners. In about 10 days KUB for stent, and if still present, will need routine upper endoscopy for removal. Status: Acute
--- NOTE | 2017-01-17 00:16 | CP.PCM.DIS ---
Provider - Provider Date of Admission: 01/12/17 15:20 Attending physician: Anette Diego MD Time Spent in preparation of Discharge (in minutes): 25 Diagnosis - Discharge Diagnosis (1) Common bile duct obstruction Status: Chronic Hospital Course - Lab Results Lab Results: Most Recent Lab Values WBC 6.0 K/uL (4.8-10.8) 01/16/17 06:15 RBC 3.48 Mil/uL (3.80-5.20) L 01/16/17 06:15 Hgb 10.2 g/dL (12.0-16.0) L 01/16/17 06:15 Hct 32.8 % (34.0-47.0) L 01/16/17 06:15 MCV 94.2 fl (81.0-99.0) 01/16/17 06:15 MCH 29.3 pg (27.0-31.0) 01/16/17 06:15 MCHC 31.0 g/dL (33.0-37.0) L 01/16/17 06:15 RDW 18.3 % (11.5-14.5) H 01/16/17 06:15 Plt Count 301 K/uL (130-400) 01/16/17 06:15 MPV 8.1 fl (7.2-11.7) 01/13/17 06:05 Neut % (Auto) 57.4 % (50.0-75.0) 01/13/17 06:05 Lymph % (Auto) 23.6 % (20.0-40.0) 01/13/17 06:05 Mchenry % (Auto) 9.1 % (0.0-10.0) 01/13/17 06:05 Eos % (Auto) 9.3 % (0.0-4.0) H 01/13/17 06:05 Baso % (Auto) 0.6 % (0.0-2.0) 01/13/17 06:05 Neut # 4.5 K/uL (1.8-7.0) 01/13/17 06:05 Lymph # 1.9 K/uL (1.0-4.3) 01/13/17 06:05 Mchenry # 0.7 K/uL (0.0-0.8) 01/13/17 06:05 Eos # 0.7 K/uL (0.0-0.7) 01/13/17 06:05 Baso # 0.1 K/uL (0.0-0.2) 01/13/17 06:05 PT 12.8 Seconds (9.8-13.1) 01/12/17 14:54 INR 1.1 (0.9-1.2) 01/12/17 14:54 Sodium 140 mmol/l (132-148) 01/16/17 06:15 Potassium 4.2 MMOL/L (3.6-5.0) 01/16/17 06:15 Chloride 101 mmol/L (98-107) 01/16/17 06:15 Carbon Dioxide 33 mmol/L (22-30) H 01/16/17 06:15 Anion Gap 10 (10-20) 01/16/17 06:15 BUN 12 mg/dl (7-17) 01/16/17 06:15 Creatinine 1.0 mg/dl (0.7-1.2) 01/16/17 06:15 Est GFR ( Amer) > 60 01/16/17 06:15 Est GFR (Non-Af Amer) 54 01/16/17 06:15 Random Glucose 105 mg/dL (65-105) 01/16/17 06:15 Calcium 8.6 mg/dL (8.4-10.2) 01/16/17 06:15 Total Bilirubin 0.8 mg/dl (0.2-1.3) 01/16/17 06:15 AST 290 U/L (14-36) H D 01/16/17 06:15 ALT 144 U/L (9-52) H 01/16/17 06:15 Alkaline Phosphatase 296 U/L (38-126) H 01/16/17 06:15 Troponin I 0.0500 ng/mL (0.00-0.120) 01/12/17 22:18 Total Protein 6.7 G/DL (6.3-8.2) 01/16/17 06:15 Albumin 3.2 g/dL (3.5-5.0) L 01/16/17 06:15 Globulin 3.5 gm/dL (2.2-3.9) 01/16/17 06:15 Albumin/Globulin Ratio 0.9 (1.0-2.1) L 01/16/17 06:15 Triglycerides 209 mg/DL (0-149) H D 01/13/17 06:05 Cholesterol 156 mg/dL (0-199) 01/13/17 06:05 LDL Cholesterol Direct 78 mg/dL (0-129) 01/13/17 06:05 HDL Cholesterol 38 MG/DL (30-70) 01/13/17 06:05 Lipase 251 U/L (23-300) 01/13/17 06:05 TSH 3rd Generation 3.23 mIU/ML (0.46-4.68) 01/13/17 06:05 Blood Type A NEGATIVE 01/12/17 14:54 Blood Type Confirm A NEGATIVE 01/12/17 22:18 Antibody Screen Negative 01/12/17 14:54 BBK History Checked No verified bt 01/12/17 14:54 Discharge Exam - Head Exam Head Exam: ATRAUMATIC Discharge Plan - Follow Up Plan Condition: FAIR Disposition: TRANSF TO SNF Instructions: ERCP (Endoscopic Retrograde Cholangiopancreatography) (DC), Acute Abdominal Pain (DC), Acute Abdominal Pain (GEN), Cholecystitis (DC), Cholecystitis (GEN), Hypertension (DC), Hypertension (GEN), Weakness (GEN) Additional Instructions: Follow up labs, cbc, cmp in 3-5 days. Repeat andominal x-ray in 10 days. F/U with Dr Gonzales Mariscal after X-Rays completed. Continue with PT as prior to admit
== END 2017-01-16 13:58 | DRG 919 ==
LOC: H.ER 12:57 → H.ERHOLD 15:20 → H.MEDSURG1 20:40
PROVIDERS: ADMIT Internal Medicine; ATTEND Internal Medicine
PROC: BF00YZZ Plain Radiography of Bile Ducts using Other Contrast (ICD-10-PCS; 2017-01-14)
PROC: 0F7D8DZ Dilation of Pancreatic Duct with Intraluminal Device, Via Natural or Artificial Opening Endoscopic (ICD-10-PCS; principal; 2017-01-14 08:00)
DX: T85.628A Displacement of other specified internal prosthetic devices, implants and grafts, initial encounter (principal); K83.1 Obstruction of bile duct; I48.92 Unspecified atrial flutter; E11.9 Type 2 diabetes mellitus without complications; K80.51 Calculus of bile duct without cholangitis or cholecystitis with obstruction; K86.1 Other chronic pancreatitis; R16.0 Hepatomegaly, not elsewhere classified; J44.9 Chronic obstructive pulmonary disease, unspecified; F41.9 Anxiety disorder, unspecified; H40.9 Unspecified glaucoma; I10 Essential (primary) hypertension; K21.9 Gastro-esophageal reflux disease without esophagitis; K57.10 Diverticulosis of small intestine without perforation or abscess without bleeding; K82.4 Cholesterolosis of gallbladder; M19.90 Unspecified osteoarthritis, unspecified site; M79.7 Fibromyalgia; M81.0 Age-related osteoporosis without current pathological fracture; Z79.82 Long term (current) use of aspirin; Z86.010 Personal history of colon polyps; Z87.01 Personal history of pneumonia (recurrent); F32.9 Major depressive disorder, single episode, unspecified; G89.29 Other chronic pain; J40 Bronchitis, not specified as acute or chronic; R00.0 Tachycardia, unspecified; R00.2 Palpitations; R07.9 Chest pain, unspecified

== ENCOUNTER 2017-05-25 15:08 | Emergency (ER) | payer MEDICARE, BC ==
[2017-05-25 15:09] VITALS: PULSE 171; BMI 33.3
[2017-05-25 15:13] VITALS: RESP 18; TEMP 98
--- NOTE | 2017-05-25 16:29 | ED PDOC ---
HPI: General Adult Time Seen by Provider: 05/25/17 15:10 Chief Complaint (Nursing): Upper Extremity Problem/Injury Chief Complaint (Provider): palpiations History Per: Patient History/Exam Limitations: no limitations Onset/Duration Of Symptoms: Days (x1) Current Symptoms Are (Timing): Still Present Additional Complaint(s): 77 year old female with medical history of HTN and PE, presents to the emergency department with a complaint of tremors ongoing since 0400 earlier today. she states it was bec she was cold at home. She denied any fever, chills , vomiting or cough. PMD: none provided Past Medical History Reviewed: Historical Data, Nursing Documentation, Vital Signs Vital Signs: Last Vital Signs Temp 98 F 05/25/17 18:50 Pulse 98 H 05/25/17 18:50 Resp 18 05/25/17 18:50 BP 157/98 H 05/25/17 18:50 Pulse Ox 99 05/25/17 23:12 - Medical History PMH: Anxiety, Arthritis, Bronchitis, Cardia Arrhythmia (Flutter), Colonic Polyps , COPD, Depression, Fibromyalgia, Fractures, HTN, Osteoporosis, Pancreatitis, Peripheral Edema (+2), Pneumonia (5 YRS AGO), Chronic Pain (bilateral LE) Denies: Anemia, Diabetes, Hepatitis, HIV, Chronic Kidney Disease, Sexually Transmitted Disease - Surgical History Surgical History: Carotid Endarterectomy, Endoscopy Denies: Pacemaker - Family History Family History: States: Unknown Family Hx - Social History Current smoker - smoking cessation education provided: No Ex-Smoker (has not smoked in the last 12 months): No Alcohol: None Drugs: Denies - Immunization History Hx Tetanus Toxoid Vaccination: No Hx Influenza Vaccination: No Hx Pneumococcal Vaccination: No - Home Medications Home Medications: Ambulatory Orders Medication Instructions Recorded DULoxetine [Cymbalta] 60 mg PO HS #30 ecc 10/23/16 Ergocalciferol (Vitamin D2) 50,000 unit PO MO 10/27/16 [Vitamin D2] Aspirin [Ecotrin] 81 mg PO DAILY 12/23/16 Cetirizine HCl [All Day Allergy 10 mg PO DAILY 12/23/16 Relief] Docusate [Colace] 100 mg PO TID PRN 12/23/16 Esomeprazole Magnesium [Nexium] 40 mg PO DAILY 12/23/16 Ondansetron [Zofran Tab] 4 mg PO Q8H PRN 12/23/16 Sennosides [Senna] 8.6 mg PO BID PRN 12/23/16 ALPRAZolam [Xanax] 0.25 mg PO TID #90 tab 12/30/16 Acetaminophen [Tylenol 325mg tab] 650 mg PO Q6 PRN tab 12/30/16 traMADol [Ultram] 100 mg PO Q6 PRN #20 tab 12/30/16 traZODone [Desyrel] 50 mg PO HS #30 tab 12/30/16 Ciprofloxacin HCl [Cipro] 500 mg PO BID #14 tab 05/25/17 - Allergies Allergies/Adverse Reactions: Allergies Allergy/AdvReac Type Severity Reaction Status Date / Time Penicillins Allergy RASH Verified 01/12/17 13:03 Review of Systems ROS Statement: Except As Marked, All Systems Reviewed And Found Negative Constitutional: Positive for: Chills. Negative for: Fever Cardiovascular: Positive for: Palpitations Respiratory: Negative for: Cough Gastrointestinal: Negative for: Vomiting Physical Exam - Reviewed Nursing Documentation Reviewed: Yes Vital Signs Reviewed: Yes - Physical Exam Appears: Positive for: Well (slight tremor, which resolved completely while she was in the ER), Non-toxic, No Acute Distress Head Exam: Positive for: ATRAUMATIC, NORMAL INSPECTION, NORMOCEPHALIC Skin: Positive for: Normal Color Eye Exam: Positive for: Normal appearance ENT: Positive for: Normal ENT Inspection, TM Is/Are (clear bilaterally). Negative for: Pharyngeal Erythema Respiratory: Positive for: Wheezing (slightly). Negative for: Respiratory Distress Gastrointestinal/Abdominal: Positive for: Normal Exam, Soft. Negative for: Tenderness Extremity: Positive for: Pedal Edema (traces bilaterally). Negative for: Deformity (upper/lower) Neurologic/Psych: Positive for: Alert, Oriented, Motor/Sensory Deficits (right hand S/P carpal tunnel surgery so limitation of moevemnet, but otherwise normal neurological exam) - Laboratory Results Result Diagrams: 05/25/17 17:00 05/25/17 17:00 - ECG O2 Sat by Pulse Oximetry: 99 (RA) Pulse Ox Interpretation: Normal Medical Decision Making Medical Decision Making: Initial Impression: Palpitations and chills rule out infection Initial Plan: * CMP * Troponin I * CBC * CXR * Urine C&S Time: 16:47 Chest x-ray FINDINGS: LUNGS: No active pulmonary disease. PLEURA: No significant pleural effusion identified, no pneumothorax apparent. CARDIOVASCULAR: No radiographic findings to suggest acute or significant cardiovascular disease. OSSEOUS STRUCTURES: No significant abnormalities. VISUALIZED UPPER ABDOMEN: Normal. OTHER FINDINGS: None. IMPRESSION: No active disease. No significant interval change compared to the prior examination(s). --Patient was given a tray of food --WBC count is normal --Borderline fever --Positive RBC count Time: 21:21 Abd./P[address] CT FINDINGS: Artifacts: The exam is suboptimal secondary to motion artifact. There is also streak artifact across the upper abdomen related to the patient's arms. Lung bases: There is mild subsegmental atelectasis and/or scarring in the lung bases. There is a 6 mm noncalcified nodule in the right lower lobe. ABDOMEN: Liver: Unremarkable. No obvious liver masses appreciated on this non-contrast exam. Gallbladder and bile ducts: Suboptimal visualization of the gallbladder secondary to motion and streak artifact. No calcified gallstones. No obvious gallbladder wall thickening. No biliary ductal dilatation appreciated. Pancreas: There is fatty atrophy of the pancreas. No obvious pancreatic mass. No pancreatic ductal dilatation. Spleen: Unremarkable. No splenomegaly. Adrenals: Unremarkable. No adrenal nodules or masses identified. Kidneys and ureters: Small bilateral intrarenal stones and/or vascular calcifications. No hydronephrosis. No ureteral stones visualized. No obvious solid renal mass. Stomach and bowel: No evidence of bowel obstruction. No significant bowel wall thickening appreciated. Appendix: The appendix is unremarkable. PELVIS: Bladder: Unremarkable. No stones. Reproductive: The uterus is atrophic. ABDOMEN and PELVIS: Intraperitoneal space: There is mild presacral stranding with trace presacral fluid. No free air. Bones/joints: Degenerative changes of the spine. Severe degenerative changes of the right hip. No acute fractures. No dislocation. Soft tissues: Bilateral fat containing inguinal hernias. Probable trace fluid noted in the right inguinal hernia. Vasculature: Atherosclerotic calcifications are noted. No aortic aneurysm. IVC filter in place. Lymph nodes: No significant lymph node enlargement. IMPRESSION: 1. Mild presacral stranding with trace presacral free fluid. This is nonspecific but could be related to mild proctitis. 2. Otherwise, no acute findings visualized in the abdomen or pelvis. 3. Small right lower lobe pulmonary nodule. Time: 21:30 pt without fever or chills or any signs of sepsis K hemolyzed therefore not reliable repeat ekg is NSR --Patient is aware of pulmonary module --Patient reports no abdominal pain --Patient is medically stable and will be discharged home with Rx for cipro 50mg PO for uti --Patient is advised to follow up with PMD tomorrow or return if symptosmw orsen Scribe Attestation: Documented by Loretta Aviles, acting as a scribe for Daniel Estevez MD. Provider Scribe Attestation: All medical record entries made by the Scribe were at my direction and personally dictated by me. I have reviewed the chart and agree that the record accurately reflects my personal performance of the history, physical exam, medical decision making, and the department course for this patient. I have also personally directed, reviewed, and agree with the discharge instructions and disposition. Disposition - Clinical Impression Clinical Impression: UTI (urinary tract infection) - Patient ED Disposition Is Patient to be Admitted: No - Disposition Referrals: [facility] [Outside] [facility] [Outside] Disposition: Routine/Home Disposition Time: 21:30 Condition: IMPROVED Additional Instructions: follow up with your primary doctor/visiting home nurse within 2 days you have a pulmonary nodule you should follow up for return to the ED with any worsening or concerning symptoms Prescriptions: Ciprofloxacin HCl [Cipro] 500 mg PO BID #14 tab Instructions: Urinary Tract Infections in Adults Forms: [employer] (Bulgarian)
--- NOTE | 2017-05-25 17:00 | RAD ---
HISTORY: feels cold COMPARISON: 12/23/2016 FINDINGS: LUNGS: No active pulmonary disease. PLEURA: No significant pleural effusion identified, no pneumothorax apparent. CARDIOVASCULAR: No radiographic findings to suggest acute or significant cardiovascular disease. OSSEOUS STRUCTURES: No significant abnormalities. VISUALIZED UPPER ABDOMEN: Normal. OTHER FINDINGS: None. IMPRESSION: No active disease. No significant interval change compared to the prior examination(s).
[2017-05-25 17:28] LABS: CALCIUM 9.4 mg/dL (8.4-10.2); GFR AFRICAN-AMERICAN > 60; GFR NON-AFRICAN AMERICAN > 60
[2017-05-25 17:31] LABS: BASO # 0.1 K/uL (0.0-0.2); BASO % 0.6 % (0.0-2.0); EOS # 0.3 K/uL (0.0-0.7); HEMOGLOBIN 13.2 g/dL (12.0-16.0); LYMPH # 1.9 K/uL (1.0-4.3); LYMPH % 20.9 % (20.0-40.0); MEAN CELL VOLUME 91.1 fl (81.0-99.0); MEAN CORPUSCULAR HEMOGLOBIN 29.8 pg (27.0-31.0); MEAN CORPUSCULAR HGB CONC 32.7 g/dL (33.0-37.0); MEAN PLATELET VOLUME 9.4 fl (7.2-11.7); MONO # 0.9 K/uL (0.0-0.8); MONO % 10.2 % (0.0-10.0); NEUT # 5.9 K/uL (1.8-7.0); NEUT % 65.3 % (50.0-75.0); NRBC % 0.2 % (0.0-0.0); RBC 4.43 Mil/uL (3.80-5.20); RED CELL DISTRIBUTION WIDTH 15.4 % (11.5-14.5)
[2017-05-25 17:39] LABS: ALBUMIN 4.3 g/dL (3.5-5.0); ALT/SGPT 10 U/L (9-52); AST/SGOT 51 U/L (14-36); BLOOD UREA NITROGEN 20 mg/dl (7-17)
[2017-05-25 18:19] LABS: SQUAMOUS EPITHIAL 6 /hpf (0-5); URINE BACTERIA OCC (<OCC); URINE BILIRUBIN NEGATIVE (NEGATIVE); URINE BLOOD LARGE (NEGATIVE); URINE CLARITY CLOUDY (Clear); URINE COLOR YELLOW (YELLOW); URINE GLUCOSE (UA) NEG (Normal); URINE LEUKOCYTE ESTERASE SMALL Leu/uL (Negative); URINE PROTEIN NEGATIVE (NEGATIVE); URINE UROBILINOGEN 0.2-1.0 mg/dL (0.2-1.0)
[2017-05-25] MEDS ORDERED: Sodium Chloride 0.9% 1,000 ML IV STA (18:50)
[2017-05-25 19:51] VITALS: BP 157/98; PULSE 98
[2017-05-25 20:23] VITALS: O2SAT 99
[2017-05-25] MEDS ORDERED: Oxycodone/Acetaminophen 5/325 mg Tab PO ONE (20:28)
[2017-05-25] MEDS ORDERED: Oxycodone/Acetaminophen 5/325 mg Tab ONE (20:37)
--- NOTE | 2017-05-26 09:56 | CT ---
PROCEDURE: CT Abdomen and Pelvis without intravenous contrast HISTORY: abd pain COMPARISON: Abdomen pelvis CT without contrast 10/27/2016. TECHNIQUE: Helical CT of the abdomen and pelvis was performed without oral or intravenous contrast as per referring physician request. Contrast Dose: None Radiation dose: Total exam DLP = 1053.43 mGy-cm. This CT exam was performed using one or more of the following dose reduction techniques: Automated exposure control, adjustment of the mA and/or kV according to patient size, and/or use of iterative reconstruction technique. FINDINGS: Restrained motion degrades quality this examination particularly in the upper abdomen. LOWER THORAX: U a flat shaped 6.0 mm coin lesion is identified at the right lower lobe in image 2 series 5, not captured in the prior abdomen and pelvis CT 10/27/2016 but is unchanged compared to prior lung base sections from abdomen pelvis CT 10/04/2016. . LIVER: No gross lesion or ductal dilatation. GALLBLADDER AND BILE DUCTS: Unremarkable. PANCREAS: Unremarkable. No gross lesion or ductal dilatation. SPLEEN: Unremarkable. ADRENALS: Unremarkable. No mass. KIDNEYS AND URETERS: Tiny intrarenal calculi identified in the upper, mid and lower pole right kidney as well as probable vascular calcification at the left renal hilum versus 4 mm pelvis calcification. No obstructive uropathy bilaterally or perinephric change. VASCULATURE: Inferior vena cava filter is identified in situ BOWEL: Prominent fecal loading is seen in the ascending colon and distal rectosigmoid without definite impaction identified. No obstruction. Trace presacral edema is appreciated which could reflect proctitis of the rectum is limited in evaluation due to distal collapse. APPENDIX: Unremarkable. Normal appendix. PERITONEUM: Unremarkable. No free fluid. No free air. LYMPH NODES: Unremarkable. No enlarged lymph nodes. BLADDER: Unremarkable. REPRODUCTIVE: Unremarkable. BONES: Advanced degenerative changes are appreciated at the right hip joint with a deformity of the head likely a function of gross osteo necrosis and restore burkett. The acetabulum is grossly widened with prominent osteophytic development superolaterally and prominent subchondral cyst formation as well. Protrusio does not appear to have developed. OTHER FINDINGS: None. IMPRESSION: No definite acute abdominal findings with the appendix appear normal. No bowel obstruction appear prominent fecal loading seen at the ascending colon as well as the distal rectosigmoid without impaction evident grossly. Note is made of presacral streaky changes which are nonspecific and could reflect proctitis with the distal rectum collapsed. Clinically correlate further.
--- NOTE | 2017-05-26 12:25 | CARD ---
APPROVED REPORT EKG Measurement Heart [id number] <Conclusion> Sinus rhythm with premature atrial complexes with aberrant conduction Biatrial enlargement Nonspecific ST and T wave abnormality Prolonged QT Abnormal ECG Artefacts+++ Please repeat.
== END 2017-05-25 23:25 | disposition home or self-care (01) ==
LOC: H.ER 15:08
DX: N39.0 Urinary tract infection, site not specified (principal); R00.2 Palpitations; Z88.0 Allergy status to penicillin; I11.9 Hypertensive heart disease without heart failure
CPT/HCPCS: 71045; 74176; 80053; 81003; 84484; 85025; 87086; 93005; 99285; J7040

== ENCOUNTER 2017-06-19 21:34 | Emergency (ER) | payer MEDICARE, BC ==
[2017-06-19 21:35] VITALS: PULSE 171; BMI 33.3
[2017-06-19 21:48] VITALS: RESP 16
[2017-06-19] MEDS ORDERED: Sodium Chloride 0.9% 1,000 ML IV STA (22:18)
--- NOTE | 2017-06-19 23:07 | ED PDOC ---
HPI: General Adult Time Seen by Provider: 06/19/17 21:55 Chief Complaint (Nursing): Abdominal Pain Chief Complaint (Provider): Generalized weakness, diarrhea, left arm pain History Per: Patient, EMS History/Exam Limitations: no limitations Current Symptoms Are (Timing): Still Present Additional Complaint(s): 77 year old female, with past medical history of fibromyalgia, arthritis, and HTN, presented to ED via EMS with complaints of generalized weakness, diarrhea, and left arm pain. Patient reports watery diarrhea today, whole body pain and aches, and left arm pain after she was pulled by police who helped her get up from the toilet. Today, she reports not being able to walk even with her walker. She lives on her own with her son who she asked to call EMS. Denied fever, abd pain, vomiting, CP, and SOB. PCP: Dr. Harris Past Medical History Reviewed: Historical Data, Nursing Documentation, Vital Signs Vital Signs: Last Vital Signs Temp 98.0 F 06/20/17 02:47 Pulse 72 06/20/17 02:47 Resp 16 06/20/17 02:47 BP 139/79 06/20/17 02:47 Pulse Ox 98 06/20/17 02:47 - Medical History PMH: Anxiety, Arthritis, Bronchitis, Cardia Arrhythmia (Flutter), Colonic Polyps , COPD, Depression, Fibromyalgia, Fractures, Gastritis, HTN, Osteoporosis, Pancreatitis, Peripheral Edema (+2), Pneumonia (5 YRS AGO), Chronic Pain ( bilateral LE) Denies: Anemia, Diabetes, Hepatitis, HIV, Chronic Kidney Disease, Sexually Transmitted Disease - Surgical History Surgical History: Carotid Endarterectomy, Endoscopy Denies: Pacemaker - Family History Family History: States: Unknown Family Hx - Immunization History Hx Tetanus Toxoid Vaccination: No Hx Influenza Vaccination: No Hx Pneumococcal Vaccination: No - Home Medications Home Medications: Ambulatory Orders Medication Instructions Recorded DULoxetine [Cymbalta] 60 mg PO HS #30 ecc 10/23/16 Ergocalciferol (Vitamin D2) 50,000 unit PO MO 10/27/16 [Vitamin D2] Aspirin [Ecotrin] 81 mg PO DAILY 12/23/16 Cetirizine HCl [All Day Allergy 10 mg PO DAILY 12/23/16 Relief] Docusate [Colace] 100 mg PO TID PRN 12/23/16 Esomeprazole Magnesium [Nexium] 40 mg PO DAILY 12/23/16 Ondansetron [Zofran Tab] 4 mg PO Q8H PRN 12/23/16 Sennosides [Senna] 8.6 mg PO BID PRN 12/23/16 ALPRAZolam [Xanax] 0.25 mg PO TID #90 tab 12/30/16 Acetaminophen [Tylenol 325mg tab] 650 mg PO Q6 PRN tab 12/30/16 traMADol [Ultram] 100 mg PO Q6 PRN #20 tab 12/30/16 traZODone [Desyrel] 50 mg PO HS #30 tab 12/30/16 Ciprofloxacin HCl [Cipro] 500 mg PO BID #14 tab 05/25/17 - Allergies Allergies/Adverse Reactions: Allergies Allergy/AdvReac Type Severity Reaction Status Date / Time Penicillins Allergy RASH Verified 06/19/17 21:40 Review of Systems ROS Statement: Except As Marked, All Systems Reviewed And Found Negative Constitutional: Positive for: Weakness (generalized). Negative for: Fever Cardiovascular: Negative for: Chest Pain Respiratory: Negative for: Shortness of Breath Gastrointestinal: Positive for: Diarrhea. Negative for: Nausea, Vomiting, Abdominal Pain Musculoskeletal: Positive for: Arm Pain (left) Physical Exam - Reviewed Nursing Documentation Reviewed: Yes Vital Signs Reviewed: Yes - Physical Exam Appears: Positive for: Non-toxic, No Acute Distress. Negative for: Uncomfortable Head Exam: Positive for: ATRAUMATIC, NORMAL INSPECTION, NORMOCEPHALIC Skin: Positive for: Normal Color, Warm, Dry Eye Exam: Positive for: Normal appearance, EOMI, PERRL ENT: Positive for: Normal ENT Inspection Neck: Positive for: Normal, Painless ROM Cardiovascular/Chest: Positive for: Regular Rate, Rhythm. Negative for: Murmur Respiratory: Positive for: Normal Breath Sounds. Negative for: Wheezing, Respiratory Distress Gastrointestinal/Abdominal: Positive for: Normal Exam, Soft. Negative for: Tenderness Back: Positive for: Normal Inspection. Negative for: L CVA Tenderness, R CVA Tenderness Extremity: Positive for: Pedal Edema (mild edema in both lower legs). Negative for: Normal ROM (painful rom in arm and fingers), Calf Tenderness (swelling, deformity, or ecchymosis in left arm), Other (erythema of the legs) Neurologic/Psych: Positive for: Alert, Oriented. Negative for: Motor/Sensory Deficits - Laboratory Results Result Diagrams: 06/19/17 23:00 06/19/17 23:00 - ECG O2 Sat by Pulse Oximetry: 94 (RA) Medical Decision Making Medical Decision Making: Initial Impression: Arm pain, diarrhea, generalized weakness, body pain Differential: fibromyalgia, arthritis, dehydration, UTI, general deconditioning , electrolyte abnormalities, arm injury: Rule out fracture Initial plan: CMP CPK ED urine dipstick CBC X-Ray elbow Loperamide 4mg PO Sodium chloride 1000mL IV Stool culture Xrays elbow and forearm: no acute findings Scribe Attestation: Documented by Arthur Wallace acting as a scribe for Radha Pavon MD. Provider Scribe Attestation: All medical record entries made by the Scribe were at my direction and personally dictated by me. I have reviewed the chart and agree that the record accurately reflects my personal performance of the history, physical exam, medical decision making, and the department course for this patient. I have also personally directed, reviewed, and agree with the discharge instructions and disposition. Disposition - Clinical Impression Clinical Impression: Diarrhea, Fatigue, Total body pain, Left arm pain - Patient ED Disposition Is Patient to be Admitted: No Doctor Will See Patient In The: Office Counseled Patient/Family Regarding: Studies Performed, Diagnosis, Need For Followup - Disposition Referrals: Roderick Coffey MD [Medical Doctor] - Disposition: Routine/Home Disposition Time: 02:00 Condition: IMPROVED Additional Instructions: Take your pain medications as instructed. Follow up with your PCP in 2-3 days. Instructions: Diarrhea in Adolescents and Adults, Muscle and Bone Pain (DC), Elbow Sprain (DC)
[2017-06-19 23:08] LABS: BASO # 0.1 K/uL (0.0-0.2); BASO % 0.6 % (0.0-2.0); EOS # 0.2 K/uL (0.0-0.7); EOS % 1.9 % (0.0-4.0); HEMOGLOBIN 13.1 g/dL (12.0-16.0); LYMPH # 2.4 K/uL (1.0-4.3); LYMPH % 22.2 % (20.0-40.0); MEAN CELL VOLUME 90.3 fl (81.0-99.0); MEAN CORPUSCULAR HEMOGLOBIN 29.7 pg (27.0-31.0); MEAN CORPUSCULAR HGB CONC 32.9 g/dL (33.0-37.0); MEAN PLATELET VOLUME 9.4 fl (7.2-11.7); MONO # 1.5 K/uL (0.0-0.8); MONO % 13.6 % (0.0-10.0); NEUT # 6.6 K/uL (1.8-7.0); NEUT % 61.7 % (50.0-75.0); RBC 4.41 Mil/uL (3.80-5.20); RED CELL DISTRIBUTION WIDTH 15.3 % (11.5-14.5); WHITE BLOOD COUNT 10.7 K/uL (4.8-10.8)
[2017-06-19 23:40] LABS: ALB/GLOB RATIO 0.9 (1.0-2.1); ALBUMIN 4.2 g/dL (3.5-5.0); ALT/SGPT 16 U/L (9-52); AST/SGOT 51 U/L (14-36); BLOOD UREA NITROGEN 25 mg/dl (7-17); CALCIUM 8.7 mg/dL (8.4-10.2); GFR AFRICAN-AMERICAN > 60; GFR NON-AFRICAN AMERICAN > 60
[2017-06-20 02:47] VITALS: BP 139/79; PULSE 72; TEMP 98
--- NOTE | 2017-06-20 08:59 | RAD ---
PROCEDURE: Radiographs of the left elbow. HISTORY: elbow pain pulled COMPARISON: No prior. FINDINGS: BONES: No acute fracture. JOINTS: Degenerative changes. SOFT TISSUES: Normal. JOINT EFFUSION: None. OTHER FINDINGS: None IMPRESSION: No demonstrated fracture or dislocation. Degenerative changes.
--- NOTE | 2017-06-20 09:00 | RAD ---
PROCEDURE: Radiographs of the Left Forearm HISTORY: forearm pain COMPARISON: None available. TECHNIQUE: Frontal and lateral views obtained. FINDINGS: BONES: No fracture or destructive lesion. JOINT SPACES: Degenerative changes. OTHER FINDINGS: None. IMPRESSION: No demonstrated fracture or dislocation. Degenerative changes.
[2017-06-20 20:59] VITALS: O2SAT 94
== END 2017-06-20 02:48 | disposition home or self-care (01) ==
LOC: H.ER 21:34
DX: R19.7 Diarrhea, unspecified (principal); R53.83 Other fatigue; M79.602 Pain in left arm; M79.7 Fibromyalgia; F32.9 Major depressive disorder, single episode, unspecified; F41.9 Anxiety disorder, unspecified; G89.29 Other chronic pain; I10 Essential (primary) hypertension; J44.9 Chronic obstructive pulmonary disease, unspecified; K85.90 Acute pancreatitis without necrosis or infection, unspecified; M19.90 Unspecified osteoarthritis, unspecified site; M81.0 Age-related osteoporosis without current pathological fracture; Z79.82 Long term (current) use of aspirin; Z88.0 Allergy status to penicillin
CPT/HCPCS: 73070; 73090; 80053; 82550; 85025; 96360; 99283; J7040

== ENCOUNTER 2017-06-25 10:41 | Inpatient (IN) | payer MEDICARE, BC ==
[2017-06-25 10:41] VITALS: PULSE 171
[2017-06-25 10:47] VITALS: BMI 31.1
--- NOTE | 2017-06-25 11:42 | ED PDOC ---
HPI: General Adult Time Seen by Provider: 06/25/17 10:45 Chief Complaint (Nursing): Weakness/Neurological Deficit Chief Complaint (Provider): Generalized weakness History Per: Patient History/Exam Limitations: no limitations Onset/Duration Of Symptoms: Days (x2 weeks) Current Symptoms Are (Timing): Still Present Additional Complaint(s): Sabrina Dodge is a 77 year old female, with a past medical history of HTN, GERD, pancreatitis, COPD, arthritis, fibromyalgia and chronic opioid use and pain, who presents to the emergency department complaining of generalized weakness onset for x2 weeks. Patient reports having trouble walking at home and inability to care for herself anymore, requesting prison placement. She denies any fever, chills or other medical complaints. PMD: Dr. Coffey Past Medical History Reviewed: Historical Data, Nursing Documentation, Vital Signs Vital Signs: Last Vital Signs Temp 97.5 F L 06/25/17 15:29 Pulse 75 06/25/17 15:29 Resp 20 06/25/17 15:29 BP 162/81 H 06/25/17 15:29 Pulse Ox 99 06/25/17 15:29 - Medical History PMH: Anxiety, Arthritis, Bronchitis, Cardia Arrhythmia (Flutter), Colonic Polyps , COPD, Depression, Fibromyalgia, Fractures, Gastritis, GERD, HTN, Osteoporosis , Pancreatitis, Peripheral Edema (+2), Pneumonia (5 YRS AGO), Chronic Pain ( bilateral LE) Denies: Anemia, Diabetes, Hepatitis, HIV, Chronic Kidney Disease, Sexually Transmitted Disease - Surgical History Surgical History: Carotid Endarterectomy, Cholecystectomy, Endoscopy Denies: Pacemaker Other surgeries: gallbladder drainage, IVC filter and right breast biopsy - Family History Family History: States: Unknown Family Hx - Social History Current smoker - smoking cessation education provided: No Alcohol: None Drugs: Denies - Immunization History Hx Tetanus Toxoid Vaccination: No Hx Influenza Vaccination: No Hx Pneumococcal Vaccination: No - Home Medications Home Medications: Ambulatory Orders Medication Instructions Recorded DULoxetine [Cymbalta] 60 mg PO HS #30 ecc 10/23/16 Ergocalciferol (Vitamin D2) 50,000 unit PO MO 10/27/16 [Vitamin D2] Aspirin [Ecotrin] 81 mg PO DAILY 12/23/16 Docusate [Colace] 100 mg PO TID PRN 12/23/16 Esomeprazole Magnesium [Nexium] 40 mg PO DAILY 12/23/16 Sennosides [Senna] 8.6 mg PO BID PRN 12/23/16 ALPRAZolam [Xanax] 1 mg PO Q6 PRN 06/25/17 Ascorbic Acid [Vitamin C 500 mg 500 mg PO DAILY 06/25/17 Tab] Lactulose [Generlac] 30 ml PO Q8 PRN 06/25/17 Lubiprostone [Amitiza] 24 mcg PO DAILY 06/25/17 Multivitamin [Multi-Vitamin Daily] 1 tab PO DAILY 06/25/17 Oxycodone HCl/Acetaminophen 1 tab PO Q4 PRN 06/25/17 [Percocet 10-325 mg Tablet] Potassium Chloride [Klor-Con 10] 10 meq PO DAILY 06/25/17 Trazodone HCl [Trazodone HCl] 150 mg PO HS 06/25/17 Valsartan [Diovan] 320 mg PO DAILY 06/25/17 amLODIPine [Norvasc] 5 mg PO DAILY 06/25/17 traZODone [Desyrel] 50 mg PO HS 06/25/17 - Allergies Allergies/Adverse Reactions: Allergies Allergy/AdvReac Type Severity Reaction Status Date / Time Penicillins Allergy RASH Verified 06/25/17 10:49 Review of Systems ROS Statement: Except As Marked, All Systems Reviewed And Found Negative Constitutional: Positive for: Weakness (generalized). Negative for: Fever, Chills Physical Exam - Reviewed Nursing Documentation Reviewed: Yes Vital Signs Reviewed: Yes - Physical Exam Appears: Positive for: Non-toxic, No Acute Distress Head Exam: Positive for: ATRAUMATIC, NORMOCEPHALIC Skin: Positive for: Normal Color, Warm, Dry Eye Exam: Positive for: Normal appearance, EOMI, PERRL Neck: Positive for: Painless ROM Cardiovascular/Chest: Positive for: Regular Rate, Rhythm. Negative for: Murmur Respiratory: Positive for: Normal Breath Sounds. Negative for: Respiratory Distress Gastrointestinal/Abdominal: Positive for: Normal Exam, Soft. Negative for: Tenderness Back: Positive for: Normal Inspection. Negative for: L CVA Tenderness, R CVA Tenderness, Vertebral Tenderness Extremity: Positive for: Normal ROM (upper and lower extremities), Swelling (b/ l trace edema). Negative for: Deformity Neurologic/Psych: Positive for: Alert, Oriented. Negative for: Motor/Sensory Deficits - Laboratory Results Result Diagrams: 06/25/17 11:40 06/25/17 12:15 - ECG O2 Sat by Pulse Oximetry: 98 (RA) Pulse Ox Interpretation: Normal Medical Decision Making Medical Decision Making: Time: 10:56 Initial Impression: GENERALIZED WEAKNESS r/o infection, electrolyte abnormality Initial Plan: --CMP --CBC w/ differential --Chest portable [RAD] --Glucose, POC --Urine C&S --Urinalysis --Reevaluation -Accuchek: 106 11:38 CXR FINDINGS: LUNGS: No active pulmonary disease. PLEURA: No significant pleural effusion identified, no pneumothorax apparent. CARDIOVASCULAR: No radiographic findings to suggest acute or significant cardiovascular disease. OSSEOUS STRUCTURES: No significant abnormalities. VISUALIZED UPPER ABDOMEN: Normal. OTHER FINDINGS: None. IMPRESSION: No active disease. No significant interval change compared to the prior examination(s). 14:10 -Vitals sign normal. No fever, no white count, but has UTI 14:20 -Spoke with Dr. Iglesias who accepted patient for admission. Ordered cipro IV for UTI and head CT. 1455 CT Head FINDINGS: HEMORRHAGE: No intracranial hemorrhage. BRAIN: No mass effect or edema. Atrophy. Chronic microvascular ischemic changes. VENTRICLES: Unremarkable. No hydrocephalus. CALVARIUM: Unremarkable. PARANASAL SINUSES: Right sphenoid sinus secretions. MASTOID AIR CELLS: Unremarkable as visualized. No inflammatory changes. OTHER FINDINGS: None. IMPRESSION: No acute intracranial pathology. Age related changes. PTS labs reviewed. slightly low Potassium, was repleted. pt also has a UTI. pt states she recently completed a course of antibiotics for UTI. pt will be given iv cipro and will be admitted for uti.falls to med chef concierge Dr Iglesias, who was made aware. Scribe Attestation: Documented by Dominguez Virgen, acting as a scribe for Daniel Estevez MD Provider Scribe Attestation: All medical record entries made by the Scribe were at my direction and personally dictated by me. I have reviewed the chart and agree that the record accurately reflects my personal performance of the history, physical exam, medical decision making, and the department course for this patient. I have also personally directed, reviewed, and agree with the discharge instructions and disposition. Disposition - Clinical Impression Clinical Impression: Weakness, Falls - Patient ED Disposition Is Patient to be Admitted: Yes Counseled Patient/Family Regarding: Studies Performed, Diagnosis - Disposition Disposition Time: 12:00 Condition: STABLE
--- NOTE | 2017-06-25 11:54 | RAD ---
HISTORY: body pain COMPARISON: 05/25/2017 FINDINGS: LUNGS: No active pulmonary disease. PLEURA: No significant pleural effusion identified, no pneumothorax apparent. CARDIOVASCULAR: No radiographic findings to suggest acute or significant cardiovascular disease. OSSEOUS STRUCTURES: No significant abnormalities. VISUALIZED UPPER ABDOMEN: Normal. OTHER FINDINGS: None. IMPRESSION: No active disease. No significant interval change compared to the prior examination(s).
[2017-06-25 11:58] LABS: BASO % 0.5 % (0.0-2.0); EOS # 0.2 K/uL (0.0-0.7); EOS % 2.4 % (0.0-4.0); HEMOGLOBIN 13.7 g/dL (12.0-16.0); LYMPH # 1.6 K/uL (1.0-4.3); LYMPH % 18.8 % (20.0-40.0); MEAN CORPUSCULAR HEMOGLOBIN 29.9 pg (27.0-31.0); MEAN CORPUSCULAR HGB CONC 33.2 g/dL (33.0-37.0); MEAN PLATELET VOLUME 8.4 fl (7.2-11.7); MONO # 0.8 K/uL (0.0-0.8); MONO % 9.6 % (0.0-10.0); NEUT # 5.9 K/uL (1.8-7.0); NEUT % 68.7 % (50.0-75.0); NRBC % 0.1 % (0.0-0.0); RBC 4.57 Mil/uL (3.80-5.20); WHITE BLOOD COUNT 8.6 K/uL (4.8-10.8)
[2017-06-25 13:01] LABS: SQUAMOUS EPITHIAL 3 /hpf (0-5); URINE BILIRUBIN NEGATIVE (NEGATIVE); URINE BLOOD MODERATE (NEGATIVE); URINE CLARITY SLIGHTY-CLOUDY (Clear); URINE COLOR YELLOW (YELLOW); URINE GLUCOSE (UA) NEG (Normal); URINE LEUKOCYTE ESTERASE MOD Leu/uL (Negative); URINE PROTEIN 30 mg/dL (NEGATIVE); URINE UROBILINOGEN 0.2-1.0 mg/dL (0.2-1.0)
[2017-06-25 14:09] LABS: ALB/GLOB RATIO 0.9 (1.0-2.1); ALBUMIN 3.9 g/dL (3.5-5.0); ALT/SGPT 23 U/L (9-52); AST/SGOT 22 U/L (14-36); BLOOD UREA NITROGEN 11 mg/dl (7-17); CALCIUM 9.3 mg/dL (8.4-10.2); GFR AFRICAN-AMERICAN > 60; GFR NON-AFRICAN AMERICAN > 60
[2017-06-25] MEDS ORDERED: Potassium Chloride 20 mEq ER Tab PO ONE ×3 (14:12→15:21)
[2017-06-25] MEDS ORDERED: Ciprofloxacin 400mg/200ml D5W 400 MG/200 ML BAG IVPB STA (14:17)
[2017-06-25] MEDS ORDERED: Ciprofloxacin 400mg/200ml D5W 400 MG/200 ML BAG IVPB ONE (14:26)
--- NOTE | 2017-06-25 14:56 | CT ---
PROCEDURE: CT HEAD WITHOUT CONTRAST. HISTORY: falls COMPARISON: CT head dated 08/02/2015. TECHNIQUE: Axial computed tomography images were obtained through the head/brain without intravenous contrast. Radiation dose: Total exam DLP = 869.8 mGy-cm. This CT exam was performed using one or more of the following dose reduction techniques: Automated exposure control, adjustment of the mA and/or kV according to patient size, and/or use of iterative reconstruction technique. FINDINGS: HEMORRHAGE: No intracranial hemorrhage. BRAIN: No mass effect or edema. Atrophy. Chronic microvascular ischemic changes. VENTRICLES: Unremarkable. No hydrocephalus. CALVARIUM: Unremarkable. PARANASAL SINUSES: Right sphenoid sinus secretions. MASTOID AIR CELLS: Unremarkable as visualized. No inflammatory changes. OTHER FINDINGS: None. IMPRESSION: No acute intracranial pathology. Age related changes.
[2017-06-25] MEDS ORDERED: Potassium Chloride 20 mEq 100 ML ONE (15:21)
[2017-06-25] MEDS ORDERED: Patient's Own Med (Oxycodone Hcl/Acetaminophen [Percocet 10-325 Mg Tablet] 1 TAB) PO PRN (19:48)
[2017-06-25] MEDS: Oxycodone/Acetaminophen 5/325 mg Tab PO PRN (21:08)
[2017-06-25] MEDS: Ciprofloxacin 400mg/200ml D5W 400 MG/200 ML BAG IVPB SCH (21:09)
[2017-06-26] MEDS: Oxycodone/Acetaminophen 5/325 mg Tab PO PRN ×3 (02:13→20:49)
[2017-06-26 06:39] LABS: BASO # 0.1 K/uL (0.0-0.2); BASO % 0.6 % (0.0-2.0); EOS # 0.3 K/uL (0.0-0.7); EOS % 3.3 % (0.0-4.0); LYMPH # 2.5 K/uL (1.0-4.3); LYMPH % 29.8 % (20.0-40.0); MEAN CELL VOLUME 89.3 fl (81.0-99.0); MEAN CORPUSCULAR HEMOGLOBIN 29.6 pg (27.0-31.0); MEAN CORPUSCULAR HGB CONC 33.2 g/dL (33.0-37.0); MEAN PLATELET VOLUME 8.2 fl (7.2-11.7); MONO # 0.7 K/uL (0.0-0.8); MONO % 8.6 % (0.0-10.0); NEUT # 4.9 K/uL (1.8-7.0); NEUT % 57.7 % (50.0-75.0); RBC 4.38 Mil/uL (3.80-5.20); RED CELL DISTRIBUTION WIDTH 14.2 % (11.5-14.5); WHITE BLOOD COUNT 8.5 K/uL (4.8-10.8)
[2017-06-26 06:56] LABS: ALBUMIN 3.8 g/dL (3.5-5.0); ALT/SGPT 21 U/L (9-52); AST/SGOT 20 U/L (14-36); BLOOD UREA NITROGEN 16 mg/dl (7-17); CALCIUM 9.1 mg/dL (8.4-10.2); GFR AFRICAN-AMERICAN > 60; GFR NON-AFRICAN AMERICAN > 60
[2017-06-26] MEDS: Enoxaparin 40 mg Syringe SC SCH (08:45)
--- NOTE | 2017-06-26 08:59 | CP.PCM.HP ---
History of Present Illness - History of Present Illness History of Present Illness: 77 yo ,f, PMhx/o HTN, GERD, pancreatitis, COPD, arthritis, fibromyalgia and chronic opioid use and pain presented c/o generalized weakness onset for x2 weeks. Patient reports having trouble walking at home and inability to care for herself anymore, requesting detention placement. Patient reports she fall bending her knees, but did not had head trauma. No prior symptoms to fall or subsequent weakness, numbness, confusion.Patient reports dysuria for 2 days and low appetites. She denies fever, chest pain, SOB, n,v,s, abd pain. Patient seen and examined bedside with Dr Iglesias. Patient reports felling well and asking when she can go home. Tolerating diet. No overnight events. Pending PT/OT PMD: Dr. Coffey Present on Admission - Present on Admission Any Indicators Present on Admission: No History of DVT/PE: No History of Uncontrolled Diabetes: No Urinary Catheter: No Decubitus Ulcer Present: No Review of Systems - Review of Systems All systems: reviewed and no additional remarkable complaints except - Cardiovascular Cardiovascular: As Per HPI - Respiratory Respiratory: As Per HPI - Gastrointestinal Gastrointestinal: As Per HPI - Genitourinary Genitourinary: Dysuria - Musculoskeletal Additional comments: leg weakness Past Patient History - Infectious Disease Hx of Infectious Diseases: None - Tetanus Immunizations Tetanus Immunization: Unknown - Past Medical History & Family History Past Medical History?: Yes - Past Social History Alcohol: None Drugs: Denies - CARDIAC Hx Cardia Arrhythmia: Yes (Flutter) Hx Hypertension: Yes Hx Pacemaker: No Hx Peripheral Edema: Yes (+2) - PULMONARY Hx Bronchitis: Yes Hx Chronic Obstructive Pulmonary Disease (COPD): Yes Hx Pneumonia: Yes (5 YRS AGO) - HEENT Hx HEENT Problems: Yes Hx Glaucoma: Yes - RENAL Hx Chronic Kidney Disease: No - ENDOCRINE/METABOLIC Hx Endocrine Disorders: No - HEMATOLOGICAL/ONCOLOGICAL Hx Anemia: No Hx Human Immunodeficiency Virus (HIV): No - INTEGUMENTARY Hx Dermatological Problems: No - MUSCULOSKELETAL/RHEUMATOLOGICAL Hx Arthritis: Yes Hx Fractures: Yes Hx Osteoporosis: Yes - GASTROINTESTINAL Hx Gastritis: Yes Hx Pancreatitis: Yes - GENITOURINARY/GYNECOLOGICAL Hx Sexually Transmitted Disorders: No - PSYCHIATRIC Hx Anxiety: Yes Hx Depression: Yes - SURGICAL HISTORY Hx Carotid Endarterectomy: Yes Hx Cholecystectomy: Yes - ANESTHESIA Hx Anesthesia: Yes Hx Anesthesia Reactions: No Hx Malignant Hyperthermia: No Meds Allergies/Adverse Reactions: Allergies Allergy/AdvReac Type Severity Reaction Status Date / Time Penicillins Allergy RASH Verified 06/25/17 10:49 Physical Exam - Constitutional Appears: No Acute Distress - Head Exam Head Exam: ATRAUMATIC, NORMOCEPHALIC - Eye Exam Eye Exam: Normal appearance - ENT Exam ENT Exam: Mucous Membranes Moist - Neck Exam Neck exam: Positive for: Normal Inspection - Respiratory Exam Respiratory Exam: Clear to Auscultation Bilateral. absent: Rales, Rhonchi, Wheezes - Cardiovascular Exam Cardiovascular Exam: REGULAR RHYTHM, +S1, +S2 - GI/Abdominal Exam GI & Abdominal Exam: Normal Bowel Sounds, Soft. absent: Tenderness - Extremities Exam Extremities exam: Positive for: normal inspection. Negative for: pedal edema - Back Exam Back exam: NORMAL INSPECTION - Neurological Exam Neurological exam: Alert, Oriented x3 - Psychiatric Exam Psychiatric exam: Normal Affect, Normal Mood - Skin Skin Exam: Intact Results - Vital Signs Recent Vital Signs: Last Vital Signs Temp 97.5 F L 06/26/17 00:45 Pulse 77 06/26/17 08:46 Resp 18 06/26/17 00:45 BP 155/78 H 06/26/17 08:46 Pulse Ox 95 06/26/17 00:45 - Labs Result Diagrams: 06/26/17 06:20 06/26/17 06:20 Labs: Laboratory Results - last 24 hr 06/25/17 06/25/17 06/25/17 11:00 11:40 12:15 WBC 8.6 RBC 4.57 Hgb 13.7 Hct 41.2 MCV 90.0 MCH 29.9 MCHC 33.2 RDW 15.0 H Plt Count 322 MPV 8.4 Neut % (Auto) 68.7 Lymph % (Auto) 18.8 L [place] % (Auto) 9.6 Eos % (Auto) 2.4 Baso % (Auto) 0.5 Neut # (Auto) 5.9 Lymph # (Auto) 1.6 [place] # (Auto) 0.8 Eos # (Auto) 0.2 Baso # (Auto) 0.0 Sodium 146 Potassium 3.3 L Chloride 102 Carbon Dioxide 27 Anion Gap 20 BUN 11 Creatinine 0.5 L Est GFR ( Amer) > 60 Est GFR (Non-Af Amer) > 60 POC Glucose (mg/dL) 106 Random Glucose 95 Calcium 9.3 Total Bilirubin 0.5 AST 22 ALT 23 Alkaline Phosphatase 100 Total Protein 8.2 Albumin 3.9 Globulin 4.3 H Albumin/Globulin Ratio 0.9 L Urine Color Urine Clarity Urine pH Ur Specific [place] Urine Protein Urine Glucose (UA) Urine Ketones Urine Blood Urine Nitrate Urine Bilirubin Urine Urobilinogen Ur Leukocyte Esterase Urine RBC (Auto) Urine Microscopic WBC Ur Squamous Epith Cells 06/25/17 06/26/17 06/26/17 12:40 06:20 06:20 WBC 8.5 RBC 4.38 Hgb 13.0 Hct 39.1 MCV 89.3 MCH 29.6 MCHC 33.2 RDW 14.2 Plt Count 336 MPV 8.2 Neut % (Auto) 57.7 Lymph % (Auto) 29.8 [place] % (Auto) 8.6 Eos % (Auto) 3.3 Baso % (Auto) 0.6 Neut # (Auto) 4.9 Lymph # (Auto) 2.5 [place] # (Auto) 0.7 Eos # (Auto) 0.3 Baso # (Auto) 0.1 Sodium 141 Potassium 3.8 Chloride 99 Carbon Dioxide 28 Anion Gap 18 BUN 16 Creatinine 0.6 L Est GFR ( Amer) > 60 Est GFR (Non-Af Amer) > 60 POC Glucose (mg/dL) Random Glucose 122 H Calcium 9.1 Total Bilirubin 0.5 AST 20 ALT 21 Alkaline Phosphatase 88 Total Protein 7.5 Albumin 3.8 Globulin 3.8 Albumin/Globulin Ratio 1.0 Urine Color Yellow Urine Clarity Slighty-cloudy Urine pH 7.0 Ur Specific [place] 1.009 Urine Protein 30 Urine Glucose (UA) Neg Urine Ketones Negative Urine Blood Moderate Urine Nitrate Negative Urine Bilirubin Negative Urine Urobilinogen 0.2-1.0 Ur Leukocyte Esterase Mod Urine RBC (Auto) 17 H Urine Microscopic WBC 54 H Ur Squamous Epith Cells 3 Assessment & Plan - Assessment and Plan (Free Text) Plan: Assessment/Plan 1) UTI -Ua positive for leukocyturia, hematuria, lek sterase + -Ciprofloxacine 400 mg IB Q 12h -F/u urine cx 2) fall at home Secondary to generalized muscle weakness -Ct Head w/o contrast normal -CXR normal -PT /Ot evaluation 3) HTN -c/w home meds 4) DVT Prophylaxis Lovenox 40 mg sc daily
[2017-06-26] MEDS: Ciprofloxacin 400mg/200ml D5W 400 MG/200 ML BAG IVPB SCH ×2 (12:18→20:52)
[2017-06-27] MEDS: Enoxaparin 40 mg Syringe SC SCH (09:20)
[2017-06-27] MEDS: Ciprofloxacin 400mg/200ml D5W 400 MG/200 ML BAG IVPB SCH ×2 (09:21→20:36)
[2017-06-27] MEDS: Oxycodone/Acetaminophen 5/325 mg Tab PO PRN ×2 (10:57→16:41)
[2017-06-27] MEDS: Simethicone 80 mg Chewtab PO PRN (16:39)
[2017-06-28] MEDS: Enoxaparin 40 mg Syringe SC SCH (08:29)
[2017-06-28] MEDS: Ciprofloxacin 400mg/200ml D5W 400 MG/200 ML BAG IVPB SCH ×2 (08:35→20:38)
[2017-06-28] MEDS: Simethicone 80 mg Chewtab PO PRN ×2 (09:22→20:05)
--- NOTE | 2017-06-28 09:32 | PN ---
DATE: 06/28/2017 SUBJECTIVE: The patient is seen and examined. Interim events noted. The patient remains in regular medical floor feels okay. Complains of generalized weakness. No chest pain, no shortness of breath. No abdominal pain. PHYSICAL EXAMINATION: GENERAL: The patient is in no acute distress. VITAL SIGNS: Stable. HEART: S1 and S2, normal and regular. LUNGS: Good bilateral air exchange. ABDOMEN: Soft and nontender. EXTREMITIES: No edema, no calf swelling. No tenderness, no acute ischemia. CENTRAL NERVOUS SYSTEM: Essentially unchanged. DIAGNOSTIC DATA: Available diagnostic data reviewed. PLAN: Overall, the patient's general medical condition is stable. Plan as ordered. William Polanco MD
[2017-06-28] MEDS: Oxycodone/Acetaminophen 5/325 mg Tab PO PRN (20:56)
[2017-06-29 07:40] LABS: HEMOGLOBIN 12.7 g/dL (12.0-16.0); MEAN CELL VOLUME 91.5 fl (81.0-99.0); MEAN CORPUSCULAR HEMOGLOBIN 30.1 pg (27.0-31.0); MEAN CORPUSCULAR HGB CONC 32.9 g/dL (33.0-37.0); RBC 4.24 Mil/uL (3.80-5.20); RED CELL DISTRIBUTION WIDTH 14.5 % (11.5-14.5); WHITE BLOOD COUNT 7.6 K/uL (4.8-10.8)
[2017-06-29 07:42] LABS: ALB/GLOB RATIO 0.9 (1.0-2.1); ALBUMIN 3.6 g/dL (3.5-5.0); ALT/SGPT 25 U/L (9-52); AST/SGOT 23 U/L (14-36); BLOOD UREA NITROGEN 32 mg/dl (7-17); CALCIUM 8.9 mg/dL (8.4-10.2); GFR AFRICAN-AMERICAN > 60; GFR NON-AFRICAN AMERICAN > 60
[2017-06-29] MEDS: Ciprofloxacin 400mg/200ml D5W 400 MG/200 ML BAG IVPB SCH (09:03)
[2017-06-29] MEDS: Enoxaparin 40 mg Syringe SC SCH (09:04)
[2017-06-29] MEDS: Oxycodone/Acetaminophen 5/325 mg Tab PO PRN ×2 (09:08→16:07)
--- NOTE | 2017-06-29 09:29 | PN ---
DATE: 06/29/2017 SUBJECTIVE: The patient is seen and examined. Interim events noted. The patient remains in regular medical floor. The patient feels better. Pain is adequately controlled. No chest pain. No shortness of breath. Complains of feeling tired and weak. PHYSICAL EXAMINATION: GENERAL: The patient is in no acute distress. VITAL SIGNS: Stable. HEART: S1 and S2, normal and regular. LUNGS: Good bilateral air exchange. ABDOMEN: Soft and nontender. EXTREMITIES: No edema. No calf swelling. No tenderness. No acute ischemia. CENTRAL NERVOUS SYSTEM: Essentially unchanged. DIAGNOSTIC DATA: Available diagnostic data reviewed. PLAN: Overall, the patient's general medical condition is stable. Plan as ordered. William Polanco MD
[2017-06-29 16:04] VITALS: BP 113/66; PULSE 71; RESP 18; TEMP 97.7; O2SAT 96
== END 2017-06-29 19:40 | DRG 690 ==
LOC: H.ER 10:41 → H.ERHOLD 14:21 → H.MEDSURG1 16:13
PROVIDERS: ADMIT Family Medicine; ATTEND Family Medicine
DX: N39.0 Urinary tract infection, site not specified (principal); Z88.0 Allergy status to penicillin; I10 Essential (primary) hypertension; K21.9 Gastro-esophageal reflux disease without esophagitis; J44.9 Chronic obstructive pulmonary disease, unspecified; M19.90 Unspecified osteoarthritis, unspecified site; M79.7 Fibromyalgia; M81.0 Age-related osteoporosis without current pathological fracture; K29.70 Gastritis, unspecified, without bleeding; M62.81 Muscle weakness (generalized); R31.9 Hematuria, unspecified; F32.9 Major depressive disorder, single episode, unspecified; F41.9 Anxiety disorder, unspecified; G89.29 Other chronic pain

== ENCOUNTER 2017-09-26 13:11 | Emergency (ER) | payer MEDICARE, BC ==
[2017-09-26 13:11] VITALS: PULSE 171; BMI 31.1
[2017-09-26 13:24] VITALS: RESP 16
[2017-09-26] MEDS ORDERED: Oxycodone/Acetaminophen 5/325 mg Tab PO STA (13:37)
[2017-09-26] MEDS ORDERED: Sodium Chloride 0.9% 1,000 ML IV STA (13:37)
--- NOTE | 2017-09-26 13:44 | ED PDOC ---
HPI: Abdomen Time Seen by Provider: 09/26/17 13:26 Chief Complaint (Nursing): Abdominal Pain Chief Complaint (Provider): Abdominal Pain History Per: Patient History/Exam Limitations: no limitations Onset/Duration Of Symptoms: Days (x2 weeks) Current Symptoms Are (Timing): Still Present Additional Complaint(s): 77 year old female with a past medical history of anxiety, arthritis, bronchitis , cardia arrhythmia, colonic polyps, COPD, depression, fibromyalgia, fractures, gastritis, GERD, HTN, osteoporosis, pancreatitis, peripheral edema, pneumonia, and chronic LE pain presenting for evaluation of abdominal pain x2 weeks associated with nausea and vomiting. Patient denies any fever or diarrhea. Patient reports she last vomited yesterday and urinary chronic incontinence. Patient states the Nurse Practitioner who visits her home did not give her a refill for Percocet and Xanax for the past week. Patient is requesting prescriptions for these medications. PMD: Dr. Thomas Past Medical History Reviewed: Historical Data, Nursing Documentation, Vital Signs Vital Signs: Last Vital Signs Temp 98.8 F 09/26/17 23:28 Pulse 88 09/26/17 23:28 Resp 16 09/26/17 23:28 BP 156/63 H 09/26/17 23:28 Pulse Ox 92 L 09/28/17 09:32 - Medical History PMH: Anxiety, Arthritis, Bronchitis, Cardia Arrhythmia (Flutter), Colonic Polyps , COPD, Depression, Fibromyalgia, Fractures, Gastritis, GERD, HTN, Osteoporosis , Pancreatitis, Peripheral Edema (+2), Pneumonia (5 YRS AGO), Chronic Pain ( bilateral LE) Denies: Anemia, Diabetes, Hepatitis, HIV, Chronic Kidney Disease, Sexually Transmitted Disease - Surgical History Surgical History: Carotid Endarterectomy, Cholecystectomy, Endoscopy Denies: Pacemaker - Family History Family History: States: Unknown Family Hx - Immunization History Hx Tetanus Toxoid Vaccination: No Hx Influenza Vaccination: No Hx Pneumococcal Vaccination: No - Home Medications Home Medications: Ambulatory Orders Medication Instructions Recorded DULoxetine [Cymbalta] 60 mg PO HS #30 ecc 10/23/16 Ergocalciferol (Vitamin D2) 50,000 unit PO MO 10/27/16 [Vitamin D2] Aspirin [Ecotrin] 81 mg PO DAILY 12/23/16 Docusate [Colace] 100 mg PO TID PRN 12/23/16 Esomeprazole Magnesium [Nexium] 40 mg PO DAILY 12/23/16 Sennosides [Senna] 8.6 mg PO BID PRN 12/23/16 ALPRAZolam [Xanax] 1 mg PO Q6 PRN 06/25/17 Ascorbic Acid [Vitamin C 500 mg 500 mg PO DAILY 06/25/17 Tab] Lactulose [Generlac] 30 ml PO Q8 PRN 06/25/17 Lubiprostone [Amitiza] 24 mcg PO DAILY 06/25/17 Multivitamin [Multi-Vitamin Daily] 1 tab PO DAILY 06/25/17 Oxycodone HCl/Acetaminophen 1 tab PO Q4 PRN 06/25/17 [Percocet 10-325 mg Tablet] Potassium Chloride [Klor-Con 10] 10 meq PO DAILY 06/25/17 Trazodone HCl [Trazodone HCl] 150 mg PO HS 06/25/17 Valsartan [Diovan] 320 mg PO DAILY 06/25/17 amLODIPine [Norvasc] 5 mg PO DAILY 06/25/17 traZODone [Desyrel] 50 mg PO HS 06/25/17 Ciprofloxacin [Cipro] 500 mg PO BID #6 tab 09/26/17 - Allergies Allergies/Adverse Reactions: Allergies Allergy/AdvReac Type Severity Reaction Status Date / Time Penicillins Allergy RASH Verified 06/25/17 10:49 Review of Systems ROS Statement: Except As Marked, All Systems Reviewed And Found Negative Constitutional: Negative for: Fever Gastrointestinal: Positive for: Nausea, Vomiting, Abdominal Pain. Negative for : Diarrhea Genitourinary Female: Positive for: Incontinence (chronic) Physical Exam - Reviewed Nursing Documentation Reviewed: Yes Vital Signs Reviewed: Yes - Physical Exam Appears: Positive for: Non-toxic, No Acute Distress (morbidly obese) Head Exam: Positive for: ATRAUMATIC, NORMAL INSPECTION, NORMOCEPHALIC Skin: Positive for: Normal Color, Warm, Dry. Negative for: Rash Eye Exam: Positive for: EOMI, Normal appearance, PERRL ENT: Positive for: Normal ENT Inspection Neck: Positive for: Normal, Painless ROM, Supple Cardiovascular/Chest: Positive for: Regular Rate, Rhythm. Negative for: Murmur Respiratory: Positive for: Normal Breath Sounds. Negative for: Respiratory Distress Gastrointestinal/Abdominal: Positive for: Soft, Tenderness (generalized). Negative for: Guarding, Rebound Back: Positive for: Normal Inspection. Negative for: L CVA Tenderness, R CVA Tenderness, Vertebral Tenderness Extremity: Positive for: Normal ROM. Negative for: Deformity Neurologic/Psych: Positive for: Alert, Oriented (x3). Negative for: Motor/ Sensory Deficits - Laboratory Results Result Diagrams: 09/26/17 14:31 09/26/17 14:31 - ECG Interpretation Of ECG: NSR @ 61, no ST-T changes. O2 Sat by Pulse Oximetry: 92 (RA) Medical Decision Making Medical Decision Makin:37 Impression: Abdominal pain and medication refill Plan: -CT abdomen and pelvis -EKG -CMP -Lipase -Urine dipstick -CBC -PTT/PT -Morphine 2mg IV -1LNS -Percocet 1 tab PO -Zofran Inj 4mg IV -Urinalysis -Reevaluation Accession No. : [id number] Patient Name / ID : LAURO RODRIGUEZ / [id number] Exam Date : 09/26/2017 16:05:19 ( Approved ) Study Comment : Sex / Age : F / 77Y Creator : Buddy Mcghee MD Dictator : Buddy Mcghee MD Joiner Helper : [employer] Structural Engineer : Buddy Mcghee MD Approver2 : Report Date : 09/26/2017 16:31:00 My Comment : Date of service: 09/26/2017 PROCEDURE: CT Abdomen and Pelvis with contrast HISTORY: Gen abd pain, nausea COMPARISON: CT scan of the abdomen pelvis dated 05/25/2017. TECHNIQUE: Contrast dose: 95 mL Omnipaque 300 Radiation dose: Total exam DLP = 850.81 mGy-cm. This CT exam was performed using one or more of the following dose reduction techniques: Automated exposure control, adjustment of the mA and/or kV according to patient size, and/or use of iterative reconstruction technique. FINDINGS: LOWER THORAX: Cardiomegaly. Left lower lobe scarring. LIVER: Hepatic steatosis. No gross lesion or ductal dilatation. GALLBLADDER AND BILE DUCTS: Unremarkable. PANCREAS: Atrophy. Scattered punctate calcifications consisting chronic pancreatitis. No gross lesion or ductal dilatation. SPLEEN: Unremarkable. ADRENALS: Unremarkable. No mass. KIDNEYS AND URETERS: 1.9 x 0.9 cm nonobstructive right mid/ upper pole calculus. 1.4 x 0.7 cm nonobstructive left renal pelvis calculus. Enhancement of the bilateral renal pelvis urothelium. No hydronephrosis. No solid mass. VASCULATURE: Inferior vena cava filter. No aortic aneurysm. BOWEL: Questionable asymmetric right lateral rectal wall thickening, similar to the prior study. No obstruction. No gross mural thickening. APPENDIX: No findings to suggest acute appendicitis. PERITONEUM: Small right fat containing inguinal hernia. No free fluid. No free air. LYMPH NODES: Unremarkable. No enlarged lymph nodes. BLADDER: Unremarkable. REPRODUCTIVE: Unremarkable. BONES: No acute fracture. Old bilateral rib fractures. Stable severe right hip arthritic changes with chronic deformity, likely represent sequela of prior trauma. Nonspecific lytic lesions in L4 and T12, stable since CT scan dated . OTHER FINDINGS: None. IMPRESSION: Interval increase in size of right mid/upper pole and left renal pelvic nonobstructive calculi now measuring 1.9 x 0.9 cm on the right and 1.4 x 0.7 cm on the left. No obstructive uropathy or evidence of recently passed genitourinary calculus. Enhancement of the bilateral renal pelvic/proximal ureteral urothelium which may be infectious/ inflammatory in etiology. Questionable asymmetric right lateral rectal wall thickening, similar to the prior study. Clinical correlation is recommended. Additional stable findings as above. Scribe Attestation: Documented by Chad Pérez, acting as a scribe for Farzaneh Chaudhary MD. Provider Scribe Attestation: All medical record entries made by the Scribe were at my direction and personally dictated by me. I have reviewed the chart and agree that the record accurately reflects my personal performance of the history, physical exam, medical decision making, and the department course for this patient. I have also personally directed, reviewed, and agree with the discharge instructions and disposition. Disposition - Clinical Impression Clinical Impression: UTI (urinary tract infection) - Disposition Referrals: Eduarda Guan MD [Family Provider] - Disposition: Routine/Home Disposition Time: 18:52 Condition: STABLE Prescriptions: Ciprofloxacin [Cipro] 500 mg PO BID #6 tab Instructions: Urinary Tract Infections in Adults Forms: [facility] (Bulgarian)
[2017-09-26 14:34] LABS: BASO % 0.4 % (0.0-2.0); EOS # 0.1 K/uL (0.0-0.7); EOS % 1.1 % (0.0-4.0); HEMOGLOBIN 12.8 g/dL (12.0-16.0); LYMPH # 1.9 K/uL (1.0-4.3); LYMPH % 20.1 % (20.0-40.0); MEAN CELL VOLUME 90.9 fl (81.0-99.0); MEAN CORPUSCULAR HEMOGLOBIN 30.8 pg (27.0-31.0); MEAN CORPUSCULAR HGB CONC 33.9 g/dL (33.0-37.0); MONO # 0.9 K/uL (0.0-0.8); MONO % 9.4 % (0.0-10.0); NEUT # 6.5 K/uL (1.8-7.0); NRBC % 0.1 % (0.0-0.0); RBC 4.16 Mil/uL (3.80-5.20); RED CELL DISTRIBUTION WIDTH 14.8 % (11.5-14.5); WHITE BLOOD COUNT 9.5 K/uL (4.8-10.8)
[2017-09-26 14:48] LABS: INR 1.2
[2017-09-26 14:49] LABS: ALB/GLOB RATIO 1.1 (1.0-2.1); ALT/SGPT 17 U/L (9-52); AST/SGOT 20 U/L (14-36); BLOOD UREA NITROGEN 15 mg/dl (7-17); CALCIUM 8.9 mg/dL (8.4-10.2); GFR AFRICAN-AMERICAN > 60; GFR NON-AFRICAN AMERICAN > 60; LIPASE 31 U/L (23-300)
[2017-09-26 14:51] LABS: PARTIAL THROMBOPLASTIN TIME 36.4 Seconds (25.6-37.1)
[2017-09-26] MEDS ORDERED: Iohexol 300 100 ML IJ ONE (15:49)
--- NOTE | 2017-09-26 16:35 | CT ---
Date of service: 09/26/2017 PROCEDURE: CT Abdomen and Pelvis with contrast HISTORY: Gen abd pain, nausea COMPARISON: CT scan of the abdomen pelvis dated 05/25/2017. TECHNIQUE: Contrast dose: 95 mL Omnipaque 300 Radiation dose: Total exam DLP = 850.81 mGy-cm. This CT exam was performed using one or more of the following dose reduction techniques: Automated exposure control, adjustment of the mA and/or kV according to patient size, and/or use of iterative reconstruction technique. FINDINGS: LOWER THORAX: Cardiomegaly. Left lower lobe scarring. LIVER: Hepatic steatosis. No gross lesion or ductal dilatation. GALLBLADDER AND BILE DUCTS: Unremarkable. PANCREAS: Atrophy. Scattered punctate calcifications consisting chronic pancreatitis. No gross lesion or ductal dilatation. SPLEEN: Unremarkable. ADRENALS: Unremarkable. No mass. KIDNEYS AND URETERS: 1.9 x 0.9 cm nonobstructive right mid/ upper pole calculus. 1.4 x 0.7 cm nonobstructive left renal pelvis calculus. Enhancement of the bilateral renal pelvis urothelium. No hydronephrosis. No solid mass. VASCULATURE: Inferior vena cava filter. No aortic aneurysm. BOWEL: Questionable asymmetric right lateral rectal wall thickening, similar to the prior study. No obstruction. No gross mural thickening. APPENDIX: No findings to suggest acute appendicitis. PERITONEUM: Small right fat containing inguinal hernia. No free fluid. No free air. LYMPH NODES: Unremarkable. No enlarged lymph nodes. BLADDER: Unremarkable. REPRODUCTIVE: Unremarkable. BONES: No acute fracture. Old bilateral rib fractures. Stable severe right hip arthritic changes with chronic deformity, likely represent sequela of prior trauma. Nonspecific lytic lesions in L4 and T12, stable since CT scan dated 10/04/2016. OTHER FINDINGS: None. IMPRESSION: Interval increase in size of right mid/upper pole and left renal pelvic nonobstructive calculi now measuring 1.9 x 0.9 cm on the right and 1.4 x 0.7 cm on the left. No obstructive uropathy or evidence of recently passed genitourinary calculus. Enhancement of the bilateral renal pelvic/proximal ureteral urothelium which may be infectious/ inflammatory in etiology. Questionable asymmetric right lateral rectal wall thickening, similar to the prior study. Clinical correlation is recommended. Additional stable findings as above.
[2017-09-26 18:12] LABS: URINE BACTERIA RARE (<OCC); URINE BILIRUBIN NEGATIVE (NEGATIVE); URINE BLOOD LARGE (NEGATIVE); URINE CLARITY CLOUDY (Clear); URINE COLOR YELLOW (YELLOW); URINE GLUCOSE (UA) NEG (Normal); URINE LEUKOCYTE ESTERASE LARGE Leu/uL (Negative); URINE PROTEIN 30 mg/dL (NEGATIVE); URINE UROBILINOGEN 0.2-1.0 mg/dL (0.2-1.0)
[2017-09-26] MEDS ORDERED: Ciprofloxacin 400mg/200ml D5W 400 MG/200 ML BAG IVPB STA (18:17)
[2017-09-26] MEDS ORDERED: Ciprofloxacin 400mg/200ml D5W 400 MG/200 ML BAG IVPB ONE (19:30)
[2017-09-26 23:31] VITALS: BP 156/63; PULSE 88; TEMP 98.8
--- NOTE | 2017-09-27 18:30 | CARD ---
APPROVED REPORT Date of service: 09/26/2017 EKG Measurement Heart [id number] <Conclusion> Normal sinus rhythm with sinus arrhythmia Normal ECG
[2017-09-28 09:32] VITALS: O2SAT 92
== END 2017-09-26 23:28 | disposition home or self-care (01) ==
LOC: H.ER 13:11
DX: N39.0 Urinary tract infection, site not specified (principal); Z86.59 Personal history of other mental and behavioral disorders; G89.29 Other chronic pain; I10 Essential (primary) hypertension; J44.9 Chronic obstructive pulmonary disease, unspecified; M79.7 Fibromyalgia; M81.0 Age-related osteoporosis without current pathological fracture; Z76.0 Encounter for issue of repeat prescription; Z79.82 Long term (current) use of aspirin; Z88.0 Allergy status to penicillin
CPT/HCPCS: 74177; 80053; 81003; 83690; 85025; 85610; 85730; 87086; 93005; 96361; 96365; 96375; 99284; J0744; J2270; J2405; J7030; Q9967

== ENCOUNTER 2017-09-28 16:31 | Emergency (ER) | payer MEDICARE, BC, MEDICAID ==
[2017-09-28 16:31] VITALS: PULSE 171; BMI 31.1
[2017-09-28 16:40] VITALS: RESP 16; TEMP 98.4
[2017-09-28 18:54] LABS: BASO # 0.1 K/uL (0.0-0.2); BASO % 0.6 % (0.0-2.0); EOS % 0.1 % (0.0-4.0); HEMOGLOBIN 13.9 g/dL (12.0-16.0); LYMPH # 1.3 K/uL (1.0-4.3); LYMPH % 9.5 % (20.0-40.0); MEAN CELL VOLUME 90.9 fl (81.0-99.0); MEAN CORPUSCULAR HEMOGLOBIN 29.9 pg (27.0-31.0); MEAN CORPUSCULAR HGB CONC 32.9 g/dL (33.0-37.0); MEAN PLATELET VOLUME 8.1 fl (7.2-11.7); MONO # 0.9 K/uL (0.0-0.8); MONO % 6.8 % (0.0-10.0); PLATELET COUNT 291 K/uL (130-400); RBC 4.65 Mil/uL (3.80-5.20); RED CELL DISTRIBUTION WIDTH 14.5 % (11.5-14.5); WHITE BLOOD COUNT 13.3 K/uL (4.8-10.8)
[2017-09-28 19:28] LABS: ALBUMIN 4.5 g/dL (3.5-5.0); ALT/SGPT 14 U/L (9-52); AST/SGOT 29 U/L (14-36); BLOOD UREA NITROGEN 19 mg/dl (7-17); CALCIUM 9.2 mg/dL (8.4-10.2); GFR AFRICAN-AMERICAN > 60; GFR NON-AFRICAN AMERICAN > 60; LIPASE 37 U/L (23-300)
[2017-09-28 20:58] LABS: BASOPHIL 1 % (0-2); LYMPHOCYTE 10 % (20-50); MONOCYTE 7 % (0-10); NEUTROPHIL 82 % (42-75); TOTAL CELLS COUNTED 100
[2017-09-28 20:59] LABS: ANISOCYTOSIS SLIGHT; PLATELET ESTIMATE NORMAL (NORMAL); TEARDROP CELLS SLIGHT
[2017-09-28 22:18] VITALS: O2SAT 98
--- NOTE | 2017-09-28 23:34 | ED PDOC ---
HPI: Abdomen Time Seen by Provider: 09/28/17 17:21 Chief Complaint (Nursing): Abdominal Pain Chief Complaint (Provider): abdominal pain vomiting History Per: Patient History/Exam Limitations: no limitations Onset/Duration Of Symptoms: Days (4), Gradual Current Symptoms Are (Timing): Still Present Context: Food Severity: Moderate Location Of Pain/Discomfort: RUQ, Epigastric Quality Of Discomfort: "Pain" Associated Symptoms: Nausea, Vomiting, Loss Of Appetite Exacerbating Factors: None Alleviating Factors: None Last Bowel Movement: Today Additional Complaint(s): 77yo female represents to ED after being seen 2 days ago with similar symptoms of abdominal pain, nausea, vomiting, weakness and dizziness. History of multiple medical problems including anxiety, arthritis, bronchitis, cardia arrhythmia, colonic polyps, COPD, depression, fibromyalgia, fractures, gastritis, GERD, HTN, osteoporosis, pancreatitis, peripheral edema, pneumonia, and chronic LE pain. Also states she ran out of percocet and visiting [facility] MIDWIFE has not seen her in >1month. Abnormal Vaginal Bleeding: No Past Medical History Reviewed: Historical Data, Nursing Documentation, Vital Signs Vital Signs: Last Vital Signs Temp 98.4 F 09/28/17 22:17 Pulse 82 09/28/17 22:17 Resp 16 09/28/17 22:17 BP 157/81 H 09/28/17 22:17 Pulse Ox 98 09/29/17 00:14 - Medical History PMH: Anxiety, Arthritis, Bronchitis, Cardia Arrhythmia (Flutter), Colonic Polyps , COPD, Depression, Fibromyalgia, Fractures, Gastritis, GERD, HTN, Osteoporosis , Pancreatitis, Peripheral Edema (+2), Pneumonia (5 YRS AGO), Chronic Pain ( bilateral LE) Denies: Anemia, Diabetes, Hepatitis, HIV, Chronic Kidney Disease, Sexually Transmitted Disease - Surgical History Surgical History: Carotid Endarterectomy, Cholecystectomy, Endoscopy Denies: Pacemaker - Family History Family History: States: Unknown Family Hx - Living Arrangements Living Arrangements: With Family - Social History Current smoker - smoking cessation education provided: No - Immunization History Hx Tetanus Toxoid Vaccination: No Hx Influenza Vaccination: No Hx Pneumococcal Vaccination: No - Home Medications Home Medications: Ambulatory Orders Medication Instructions Recorded DULoxetine [Cymbalta] 60 mg PO HS #30 ecc 10/23/16 Ergocalciferol (Vitamin D2) 50,000 unit PO MO 10/27/16 [Vitamin D2] Aspirin [Ecotrin] 81 mg PO DAILY 12/23/16 Docusate [Colace] 100 mg PO TID PRN 12/23/16 Esomeprazole Magnesium [Nexium] 40 mg PO DAILY 12/23/16 Sennosides [Senna] 8.6 mg PO BID PRN 12/23/16 ALPRAZolam [Xanax] 1 mg PO Q6 PRN 06/25/17 Ascorbic Acid [Vitamin C 500 mg 500 mg PO DAILY 06/25/17 Tab] Lactulose [Generlac] 30 ml PO Q8 PRN 06/25/17 Lubiprostone [Amitiza] 24 mcg PO DAILY 06/25/17 Multivitamin [Multi-Vitamin Daily] 1 tab PO DAILY 06/25/17 Oxycodone HCl/Acetaminophen 1 tab PO Q4 PRN 06/25/17 [Percocet 10-325 mg Tablet] Potassium Chloride [Klor-Con 10] 10 meq PO DAILY 06/25/17 Trazodone HCl [Trazodone HCl] 150 mg PO HS 06/25/17 Valsartan [Diovan] 320 mg PO DAILY 06/25/17 amLODIPine [Norvasc] 5 mg PO DAILY 06/25/17 traZODone [Desyrel] 50 mg PO HS 06/25/17 Ciprofloxacin [Cipro] 500 mg PO BID #6 tab 09/26/17 - Allergies Allergies/Adverse Reactions: Allergies Allergy/AdvReac Type Severity Reaction Status Date / Time Penicillins Allergy RASH Verified 06/25/17 10:49 Review of Systems Constitutional: Positive for: Malaise Cardiovascular: Negative for: Chest Pain, Palpitations Respiratory: Positive for: Cough. Negative for: Shortness of Breath Gastrointestinal: Positive for: Vomiting, Abdominal Pain Genitourinary Female: Positive for: Dysuria Musculoskeletal: Positive for: Arm Pain, Leg Pain. Negative for: Neck Pain, Back Pain Skin: Negative for: Rash, Lesions, Jaundice Neurological: Negative for: Weakness, Numbness, Headache Psych: Negative for: Anxiety Physical Exam - Reviewed Nursing Documentation Reviewed: Yes Vital Signs Reviewed: Yes - Physical Exam Appears: Positive for: Non-toxic (chronically ill appearing) Head Exam: Positive for: ATRAUMATIC, NORMAL INSPECTION, NORMOCEPHALIC Skin: Positive for: Warm, Pallor Eye Exam: Positive for: EOMI, Normal appearance, PERRL ENT: Positive for: Normal ENT Inspection Neck: Positive for: Normal, Painless ROM Cardiovascular/Chest: Positive for: Regular Rate, Rhythm Respiratory: Positive for: CNT, Normal Breath Sounds Gastrointestinal/Abdominal: Positive for: Soft. Negative for: Tenderness, Guarding, Rebound Back: Positive for: Normal Inspection Extremity: Positive for: Normal ROM, Swelling (mild anararca bl). Negative for : Deformity Neurologic/Psych: Positive for: Alert, Oriented. Negative for: Motor/Sensory Deficits - Laboratory Results Result Diagrams: 09/28/17 18:49 09/28/17 18:49 - ECG O2 Sat by Pulse Oximetry: 98 Medical Decision Making Medical Decision Making: workup for recurrent abd pain initiated CT abd pelv report from 48hrs ago reviewed\\ labs today reviewed and compared, mild elev WBC and UDip reveals persistent UTI Small dose morphine given, IVF and re-evaluation performed 9pm, improving 1130pm- states improved and wishes to go home. Offered obs in hospital but prefers home care right now. 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 Also 120 xanax august 11. Disposition - Clinical Impression Clinical Impression: Abdominal pain, Urinary tract infection - Patient ED Disposition Is Patient to be Admitted: No - Disposition Referrals: Eduarda Guan MD [Primary Care Provider] - Forms: [employer] ([place])
[2017-09-29 03:10] VITALS: BP 127/82; PULSE 78
--- NOTE | 2017-09-29 09:20 | CARD ---
APPROVED REPORT Date of service: 09/28/2017 <Conclusion> Normal sinus rhythm with PACs Prolonged QT Abnormal ECG
--- NOTE | 2017-09-29 11:16 | US ---
Date of service: 09/28/2017 HISTORY: Abdominal pain Relevant interventional procedure(s): Prior cholecystostomy tube. COMPARISON: 01/12/2017. Abdominal ultrasound 09/26/2017 CT abdomen and pelvis. TECHNIQUE: Sonographic evaluation of the abdomen. FINDINGS: LIVER: Measures 17.4 cm. Hepatopedal blood flow. Fatty infiltration manifest ultrasonographically as increased echogenicity of the liver parenchyma. No mass. No intrahepatic bile duct dilatation. GALLBLADDER: Distended gallbladder containing sludge. Gallstones are not identified. COMMON BILE DUCT: Measures 6.8 mm. No stones. No dilatation. PANCREAS: Unremarkable as visualized. No mass. No ductal dilatation. RIGHT KIDNEY: Measures 4 x 11cm. Normal echogenicity. Nonobstructing calculus upper pole 1.1 x 0.24 cm. LEFT KIDNEY: Measures 4.1 x 10.9cm. Normal echogenicity. Nonobstructing midpole calculus 6 x 8 mm. SPLEEN: Normal in size and contour. No mass. AORTA: No aneurysmal dilatation. IVC: Unremarkable. OTHER FINDINGS: None. IMPRESSION: Distended gallbladder without gallstones or evidence of acute cholecystitis. Nonobstructing renal calculi bilaterally. Additional benign and/or incidental findings described above. Concordant results (preliminary interpretation) provided by [employer]. Procedure Completed: 20:59. Preliminary ([facility]) Report: Dictated and Authenticated: 21:28. Final Interpretation: 11:14. September 29, 2017.
== END 2017-09-29 02:40 | disposition home or self-care (01) ==
LOC: H.ER 16:31
DX: N39.0 Urinary tract infection, site not specified (principal); R10.9 Unspecified abdominal pain; M79.7 Fibromyalgia; Z88.0 Allergy status to penicillin; J44.9 Chronic obstructive pulmonary disease, unspecified

== ENCOUNTER 2018-02-11 17:14 | Inpatient (IN) | payer MEDICARE, MEDICAID ==
[2018-02-11 17:15] VITALS: PULSE 171; BMI 21.6
--- NOTE | 2018-02-11 17:58 | ED PDOC ---
HPI: Abdomen Time Seen by Provider: 02/11/18 17:34 Chief Complaint (Nursing): Weakness/Neurological Deficit Chief Complaint (Provider): abdominal pain History Per: Patient History/Exam Limitations: no limitations Onset/Duration Of Symptoms: Days (x1) Current Symptoms Are (Timing): Still Present Additional Complaint(s): 77 year old female with pmHx of HTN, COPD, and GERD, presents to ED with a complaint of worsening diffuse abdominal pain and burning urination since this morning. Last BM was yesterday. Patient states she takes Percocet as need for pain. Otherwise, she denies fever, chills, nausea, vomiting, diarrhea, or bloody urine. Upon examination, provider advised patient to withhold from eating or drinking until further permitted. Patient persistently insists on drinking water from her tumbler that she brought from home. PCP: Dr. Eduarda Guan Past Medical History Reviewed: Historical Data, Nursing Documentation, Vital Signs Vital Signs: Last Vital Signs Temp 99.3 F 02/11/18 17:17 Pulse 94 H 02/11/18 17:17 Resp 16 02/11/18 17:17 BP 155/83 H 02/11/18 17:17 Pulse Ox 99 02/11/18 17:17 - Medical History PMH: Anxiety, Arthritis, Bronchitis, Cardia Arrhythmia, Colonic Polyps, COPD, Depression, Fibromyalgia, Fractures, Gastritis, GERD, HTN, Osteoporosis, Pancrea titis, Peripheral Edema, Pneumonia, Chronic Pain (bilateral LE) Denies: Anemia, Diabetes, Hepatitis, HIV, Chronic Kidney Disease, Sexually Transmitted Disease - Surgical History Surgical History: Appendectomy, Carotid Endarterectomy, Cholecystectomy, Endoscopy Denies: Pacemaker - Family History Family History: States: Unknown Family Hx - Immunization History Hx Tetanus Toxoid Vaccination: No Hx Influenza Vaccination: No Hx Pneumococcal Vaccination: No - Home Medications Home Medications: Ambulatory Orders Medication Instructions Recorded DULoxetine [Cymbalta] 60 mg PO HS #30 ecc 10/23/16 Aspirin [Ecotrin] 81 mg PO DAILY 12/23/16 Docusate [Colace] 100 mg PO TID PRN 12/23/16 Sennosides [Senna] 8.6 mg PO BID PRN 12/23/16 ALPRAZolam [Xanax] 1 mg PO Q6 PRN 06/25/17 Ascorbic Acid [Vitamin C 500 mg 500 mg PO DAILY 06/25/17 Tab] Lactulose [Generlac] 30 ml PO Q8 PRN 06/25/17 Lubiprostone [Amitiza] 24 mcg PO DAILY 06/25/17 Multivitamin [Multi-Vitamin Daily] 1 tab PO DAILY 06/25/17 amLODIPine [Norvasc] 5 mg PO DAILY 06/25/17 traZODone [Desyrel] 50 mg PO HS 06/25/17 Cetirizine HCl [All Day Allergy 10 mg PO DAILY 10/01/17 Relief] Esomeprazole Magnesium [Nexium] 20 mg PO DAILY 10/01/17 Gabapentin [Neurontin] 300 mg PO DAILY 10/01/17 Irbesartan 300 mg PO DAILY 10/01/17 Ondansetron [Zofran Tab] 4 mg PO Q8 PRN 10/01/17 Oxybutynin XL [Ditropan XL] 5 mg PO DAILY 10/01/17 Simethicone [Mylicon Chew Tab] 80 mg PO Q6 PRN 10/01/17 Ergocalciferol [Drisdol 50,000 1 cap PO Q7D cap 10/06/17 Intl Units Cap] Magnesium Oxide [Mag-Ox] 400 mg PO BID tab 10/06/17 Metoprolol Tartrate [Lopressor] 12.5 mg PO Q12 tab 10/06/17 - Allergies Allergies/Adverse Reactions: Allergies Allergy/AdvReac Type Severity Reaction Status Date / Time Penicillins Allergy RASH Verified 02/15/18 16:25 Review of Systems ROS Statement: Except As Marked, All Systems Reviewed And Found Negative Constitutional: Negative for: Fever, Chills Gastrointestinal: Positive for: Abdominal Pain. Negative for: Nausea, Vomiting, Diarrhea Genitourinary Female: Positive for: Dysuria. Negative for: Hematuria Physical Exam - Reviewed Nursing Documentation Reviewed: Yes Vital Signs Reviewed: Yes - Physical Exam Appears: Positive for: No Acute Distress Head Exam: Positive for: ATRAUMATIC, NORMAL INSPECTION, NORMOCEPHALIC Skin: Positive for: Normal Color Eye Exam: Positive for: Normal appearance, EOMI, PERRL ENT: Positive for: Normal ENT Inspection Neck: Positive for: Normal Cardiovascular/Chest: Positive for: Regular Rate, Rhythm Respiratory: Positive for: Normal Breath Sounds. Negative for: Respiratory Distress Gastrointestinal/Abdominal: Positive for: Soft, Tenderness (diffuse) Back: Positive for: Normal Inspection. Negative for: L CVA Tenderness, R CVA Tenderness Extremity: Positive for: Normal ROM (upper/lower) Neurologic/Psych: Positive for: Alert, Oriented. Negative for: Motor/Sensory Deficits - Laboratory Results Result Diagrams: 02/15/18 05:45 02/15/18 05:45 - ECG O2 Sat by Pulse Oximetry: 99 (RA) Pulse Ox Interpretation: Normal Medical Decision Making Medical Decision Making: Initial Impression: Abdominal pain Initial Plan: * CT ABD/pelvis * Labs * Urine culture Scribe Attestation: Documented by Loretta Aviles, acting as a scribe for Farzaneh Chaudhary MD. Provider Scribe Attestation: All medical record entries made by the Scribe were at my direction and personally dictated by me. I have reviewed the chart and agree that the record accurately reflects my personal performance of the history, physical exam, medical decision making, and the department course for this patient. I have also personally directed, reviewed, and agree with the discharge instructions and disposition. Disposition - Clinical Impression Clinical Impression: Urinary tract infection, Sepsis - Patient ED Disposition Is Patient to be Admitted: Transfer of Care - Disposition Disposition Time: 19:00 Condition: STABLE Patient Signed Over To: Radha Pavon
[2018-02-11 18:26] LABS: BASO # 0.1 K/uL (0.0-0.2); BASO % 0.8 % (0.0-2.0); EOS # 0.1 K/uL (0.0-0.7); EOS % 0.7 % (0.0-4.0); HEMOGLOBIN 11.2 g/dL (12.0-16.0); LYMPH # 1.7 K/uL (1.0-4.3); LYMPH % 11.6 % (20.0-40.0); MEAN CELL VOLUME 93.7 fl (81.0-99.0); MEAN CORPUSCULAR HEMOGLOBIN 30.4 pg (27.0-31.0); MEAN CORPUSCULAR HGB CONC 32.4 g/dL (33.0-37.0); MEAN PLATELET VOLUME 7.1 fl (7.2-11.7); MONO # 1.4 K/uL (0.0-0.8); MONO % 9.5 % (0.0-10.0); NEUT # 11.6 K/uL (1.8-7.0); NEUT % 77.4 % (50.0-75.0); RBC 3.67 Mil/uL (3.80-5.20); RED CELL DISTRIBUTION WIDTH 13.9 % (11.5-14.5)
[2018-02-11 18:37] LABS: INR 1.2
[2018-02-11 18:38] LABS: ALB/GLOB RATIO 0.9 (1.0-2.1); ALBUMIN 3.8 g/dL (3.5-5.0); ALT/SGPT 15 U/L (9-52); AST/SGOT 23 U/L (14-36); BLOOD UREA NITROGEN 14 mg/dl (7-17); CALCIUM 8.7 mg/dL (8.4-10.2); GFR NON-AFRICAN AMERICAN > 60; LIPASE 17 U/L (23-300)
[2018-02-11 18:39] LABS: PARTIAL THROMBOPLASTIN TIME 37.5 Seconds (25.6-37.1)
[2018-02-11] MEDS ORDERED: Potassium Chloride 20 mEq ER Tab PO STA (18:59)
[2018-02-11] MEDS ORDERED: Iohexol 300 100 ML IJ ONE (19:01)
[2018-02-11] MEDS ORDERED: Sodium Chloride 0.9% 50 ML IV ONE (19:02)
[2018-02-11 19:03] LABS: SQUAMOUS EPITHIAL 5 /hpf (0-5); URINE AMORPHOUS SEDIMENT RARE /ul (<OCC); URINE BACTERIA OCC (<OCC); URINE BILIRUBIN NEGATIVE (NEGATIVE); URINE BLOOD MODERATE (NEGATIVE); URINE CLARITY CLOUDY (Clear); URINE COLOR YELLOW (YELLOW); URINE GLUCOSE (UA) NEG (NEGATIVE); URINE LEUKOCYTE ESTERASE LARGE Leu/uL (Negative); URINE PROTEIN 100 mg/dL (NEGATIVE); URINE UROBILINOGEN 0.2-1.0 mg/dL (0.2-1.0); WBC CLUMPS MANY /hpf
[2018-02-11] MEDS ORDERED: Ciprofloxacin 400mg/200ml D5W 400 MG/200 ML BAG IVPB STA (19:31)
--- NOTE | 2018-02-11 19:40 | ED PDOC ---
- Laboratory Results Result Diagrams: 02/11/18 18:00 02/11/18 18:00 - ECG O2 Sat by Pulse Oximetry: 99 (RA) Medical Decision Making Medical Decision Making: Time:1899 The patient is endorsed to provider from Dr. Chaudhary pending CT Abd. Time: 1952 --CT ABD/pelvis FINDINGS: LUNG BASES: The lung bases appear clear. No pleural effusions are seen. Mild scarring of the lung bases. LIVER: Unremarkable. GALLBLADDER AND BILE DUCTS: The gallbladder appears within normal limits. No radioopaque gallstones are seen. No biliary ductal dilatation is evident. PANCREAS: There is an atrophic pancreas with evidence of chronic pancreatitis. SPLEEN: Unremarkable. ADRENAL GLANDS: Unremarkable. KIDNEYS, URETERS, AND BLADDER: Nonobstructing bilateral renal calculi.. There is no hydronephrosis or hydroureter. No urinary calculi are seen. IVC filter seen at the level of the kidneys. STOMACH AND BOWEL: Unremarkable appearance of the stomach and bowel. No evidence of bowel obstruction. No evidence suggesting enteritis or colitis. There is a moderate amount of fecal material within the colon. APPENDIX: No evidence of acute appendicitis on CT examination. PERITONEUM: No free fluid. No free air. LYMPH NODES: No lymphadenopathy is evident. VASCULATURE: No evidence of abdominal aortic aneurysm. BONES: No aggressive appearing osseous lesion. No acute osseous pathology evident. IMPRESSION: No acute intra-abdominal abnormality. Scarring at the lung bases. Evidence of atrophic pancreas with chronic pancreatitis. Mildly distended gallbladder. Nonobstructing bilateral renal calculi. IVC filter at the level of the kidneys. Moderate amount of fecal material seen throughout the colon. Clinical correlation advised. Time: 2029 UA consistent with UTI. Cipro IV ordered. Time: 2136 --Upon re-evaluation, patient reports no improvement in symptoms. Patient will be admitted for UTI, elavated WBC, and general weakness to Dr. Gardner, hospitalist. Scribe Attestation: Documented by Mihir Vidales, acting as a scribe for Radha Pavon MD. Provider Scribe Attestation: All medical record entries made by the Scribe were at my direction and personally dictated by me. I have reviewed the chart and agree that the record accurately reflects my personal performance of the history, physical exam, medical decision making, and the department course for this patient. I have also personally directed, reviewed, and agree with the discharge instructions and disposition. Disposition Discussed With : Ibrahima Gardner Doctor Will See Patient In The: ED Counseled Patient/Family Regarding: Studies Performed, Diagnosis - Clinical Impression Clinical Impression: Urinary tract infection, Sepsis - POA Present On Arrival: None - Disposition Disposition: Admitted as In-Patient Disposition Time: 21:40
[2018-02-11] MEDS ORDERED: Potassium Chloride 20 mEq ER Tab PO ONE (21:05)
[2018-02-11] MEDS ORDERED: Ciprofloxacin 400mg/200ml D5W 400 MG/200 ML BAG IVPB ONE (21:06)
[2018-02-11] MEDS ORDERED: Sodium Chloride 0.9% 1,000 ML IV STA (21:37)
--- NOTE | 2018-02-11 22:09 | CP.PCM.HP ---
History of Present Illness - History of Present Illness History of Present Illness: PMD: Dr Guan Chief Complaint: Abdominal pain The patient was seen and examined in the ED with no family present. HPI: The hx was obtained from the patient and after review of the medical records. This 77 yo female with PMH of anxiety with chronic benzo and opioid use, A flutter, chronic pancreatitis, ampullary diverticulum, status post PTC tube placement by interventional radiology in October 2016, and HTN, presents to the emergency department today with a 2 days history of Acute pain to the epigastrum and the suprapubic region. This is associated with nausea but no vomitus. 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; Anemia; COPD; Fibromyalgia, leg edema; chronic pain bilateral LE;migraine; Gall bladder disease;DVT both lower extremities;Bilateral Renal calculo PSH: Carotid Endarterectomy, Endoscopy, Cataract extraction left eye; Surgery to the shoulder, elbow and finger; Hand operation for Carpal Tunnel ; IVC Filter; Cholecystostomy SH: Ex Smoker; No alcohol; No illegal drug use; Live with SON at night and Aide during the day FH: Significant for Heart disease Allergies: PCN Present on Admission - Present on Admission Any Indicators Present on Admission: No History of DVT/PE: No History of Uncontrolled Diabetes: No Urinary Catheter: No Decubitus Ulcer Present: No Review of Systems - Constitutional Constitutional: Headache. absent: Chills, Fever, Lethargy - EENT Eyes: Requires Corrective Lenses. absent: Blurred Vision, Floaters, Loss of Peripheral Vision Ears: Ear Pain. absent: Decreased Hearing Nose/Mouth/Throat: absent: Epistaxis, Nasal Congestion, Sinus Pain, Sinus Pressure - Cardiovascular Cardiovascular: absent: Chest Pain, Dyspnea, Edema - Respiratory Respiratory: Dyspnea on Exertion. absent: Wheezing, Snoring - Gastrointestinal Gastrointestinal: Constipation, Nausea. absent: Diarrhea, Vomiting - Genitourinary Genitourinary: Dysuria. absent: Flank Pain, Hematuria - Musculoskeletal Musculoskeletal: Arthralgias, Muscle Weakness - Integumentary Integumentary: absent: Pruritus, Rash, Skin Ulcer, Sores, Striae - Neurological Neurological: Weakness. absent: Confusion, Focal Weakness, Loss of Vision - Psychiatric Psychiatric: Anxiety, Depression, Panic Attacks - Endocrine Endocrine: absent: Palpitations, Polydipsia, Polyphagia, Polyuria - Hematologic/Lymphatic Hematologic: absent: Easy Bleeding, Easy Bruising Past Patient History - Infectious Disease Hx of Infectious Diseases: None - Tetanus Immunizations Tetanus Immunization: Unknown - Past Medical History & Family History Past Medical History?: Yes - Past Social History Smoking Status: Never Smoked Chewing Tobacco Use: No Cigar Use: No Drugs: Inhalants Home Situation {Lives}: With Family - CARDIAC Hx Cardia Arrhythmia: Yes Hx Hypertension: Yes Hx Pacemaker: No Hx Peripheral Edema: Yes - PULMONARY Hx Bronchitis: Yes Hx Chronic Obstructive Pulmonary Disease (COPD): Yes Hx Pneumonia: Yes - NEUROLOGICAL Hx Neurological Disorder: No - HEENT Hx HEENT Problems: No - RENAL Hx Chronic Kidney Disease: No - ENDOCRINE/METABOLIC Hx Endocrine Disorders: No - HEMATOLOGICAL/ONCOLOGICAL Hx Anemia: No Hx Human Immunodeficiency Virus (HIV): No - INTEGUMENTARY Hx Dermatological Problems: No - MUSCULOSKELETAL/RHEUMATOLOGICAL Hx Arthritis: Yes Hx Fractures: Yes Hx Osteoporosis: Yes - GASTROINTESTINAL Hx Gastritis: Yes Hx Pancreatitis: Yes - GENITOURINARY/GYNECOLOGICAL Hx Sexually Transmitted Disorders: No - PSYCHIATRIC Hx Anxiety: Yes Hx Depression: Yes - SURGICAL HISTORY Hx Appendectomy: Yes Hx Carotid Endarterectomy: Yes Hx Cholecystectomy: Yes - ANESTHESIA Hx Anesthesia: Yes Hx Anesthesia Reactions: No Hx Malignant Hyperthermia: No Meds Allergies/Adverse Reactions: Allergies Allergy/AdvReac Type Severity Reaction Status Date / Time Penicillins Allergy RASH Verified 02/11/18 17:17 Physical Exam - Constitutional Appears: No Acute Distress - Head Exam Head Exam: ATRAUMATIC, NORMAL INSPECTION, NORMOCEPHALIC - Eye Exam Eye Exam: EOMI, Normal appearance Pupil Exam: NORMAL ACCOMODATION, PERRL - ENT Exam ENT Exam: Mucous Membranes Moist, Normal Exam, Normal External Ear Exam - Neck Exam Neck exam: Positive for: Full Rom, Normal Inspection - Respiratory Exam Respiratory Exam: Clear to Auscultation Bilateral. absent: Rales, Rhonchi, Wheezes - Cardiovascular Exam Cardiovascular Exam: REGULAR RHYTHM, +S1, +S2 - GI/Abdominal Exam Additional comments: Obese, soft, Tender at epigastrium and the superpubicregion. Mild rebound tenderness at the epigastric region. - Rectal Exam Rectal Exam: Deferred - Extremities Exam Extremities exam: Positive for: joint swelling, normal inspection - Back Exam Back exam: NORMAL INSPECTION. absent: CVA tenderness (L), CVA tenderness (R) - Neurological Exam Neurological exam: Alert, CN II-XII Intact, Oriented x3, Reflexes Normal - Psychiatric Exam Psychiatric exam: Normal Affect, Normal Mood - Skin Skin Exam: Dry, Intact, Normal Color, Warm Results - Vital Signs Recent Vital Signs: Last Vital Signs Temp 99.4 F 02/11/18 20:58 Pulse 92 H 02/11/18 20:58 Resp 14 02/11/18 20:58 BP 152/98 H 02/11/18 20:58 Pulse Ox 99 02/11/18 21:40 - Labs Result Diagrams: 02/11/18 18:00 02/11/18 18:00 Labs: Laboratory Results - last 24 hr 02/11/18 02/11/18 02/11/18 18:00 18:00 18:00 WBC 15.0 H RBC 3.67 L Hgb 11.2 L Hct 34.4 MCV 93.7 MCH 30.4 MCHC 32.4 L RDW 13.9 Plt Count 338 MPV 7.1 L Neut % (Auto) 77.4 H Lymph % (Auto) 11.6 L [place] % (Auto) 9.5 Eos % (Auto) 0.7 Baso % (Auto) 0.8 Neut # (Auto) 11.6 H Lymph # (Auto) 1.7 [place] # (Auto) 1.4 H Eos # (Auto) 0.1 Baso # (Auto) 0.1 PT 14.0 H INR 1.2 APTT 37.5 H Sodium 137 Potassium 3.5 L Chloride 99 Carbon Dioxide 29 Anion Gap 13 BUN 14 Creatinine 0.7 Est GFR ( Amer) > 60 Est GFR (Non-Af Amer) > 60 Random Glucose 132 H Calcium 8.7 Total Bilirubin 0.5 AST 23 ALT 15 Alkaline Phosphatase 105 Total Protein 8.2 Albumin 3.8 Globulin 4.3 H Albumin/Globulin Ratio 0.9 L Lipase 17 L Urine Color Urine Clarity Urine pH Ur Specific [place] Urine Protein Urine Glucose (UA) Urine Ketones Urine Blood Urine Nitrate Urine Bilirubin Urine Urobilinogen Ur Leukocyte Esterase Urine RBC (Auto) Urine WBC Clumps (Auto) Urine Microscopic WBC Ur Squamous Epith Cells Amorphous Sediment Urine Bacteria 02/11/18 18:30 WBC RBC Hgb Hct MCV MCH MCHC RDW Plt Count MPV Neut % (Auto) Lymph % (Auto) [place] % (Auto) Eos % (Auto) Baso % (Auto) Neut # (Auto) Lymph # (Auto) [place] # (Auto) Eos # (Auto) Baso # (Auto) PT INR APTT Sodium Potassium Chloride Carbon Dioxide Anion Gap BUN Creatinine Est GFR ( Amer) Est GFR (Non-Af Amer) Random Glucose Calcium Total Bilirubin AST ALT Alkaline Phosphatase Total Protein Albumin Globulin Albumin/Globulin Ratio Lipase Urine Color Yellow Urine Clarity Cloudy Urine pH 7.0 Ur Specific [place] 1.014 Urine Protein 100 Urine Glucose (UA) Neg Urine Ketones Negative Urine Blood Moderate Urine Nitrate Negative Urine Bilirubin Negative Urine Urobilinogen 0.2-1.0 Ur Leukocyte Esterase Large Urine RBC (Auto) 186 H Urine WBC Clumps (Auto) Many H Urine Microscopic WBC 832 H Ur Squamous Epith Cells 5 Amorphous Sediment Rare H Urine Bacteria Occ H - Imaging and Cardiology CT scan - abdomen Status: Report reviewed by me Additional comment: CT ABD/pelvis FINDINGS: LUNG BASES: The lung bases appear clear. No pleural effusions are seen. Mild scarring of t he lung bases. LIVER: Unremarkable. GALLBLADDER AND BILE DUCTS: The gallbladder appears within normal limits. No radioopaque gallstones are seen. No biliary ductal dilatation is evident. PANCREAS: There is an atrophic pancreas with evidence of chronic pancreatitis. SPLEEN: Unremarkable. ADRENAL GLANDS: Unremarkable. KIDNEYS, URETERS, AND BLADDER: Nonobstructing bilateral renal calculi.. There is no hydronephrosis or hydroureter. No urinary calculi are seen. IVC filter seen at the level of the kidneys. STOMACH AND BOWEL: Unremarkable appearance of the stomach and bowel. No evidence of bowel obstruction. No evidence suggesting enteritis or colitis. There is a moderate amount of fecal material within the colon. APPENDIX: No evidence of acute appendicitis on CT examination. PERITONEUM: No free fluid. No free air. LYMPH NODES: No lymphadenopathy is evident. VASCULATURE: No evidence of abdominal aortic aneurysm. BONES: No aggressive appearing osseous lesion. No acute osseous pathology evident. IMPRESSION: No acute intra-abdominal abnormality. Scarring at the lung bases. Evidence of atrophic pancreas with chronic pancreatitis. Mildly distended gallbladder. Nonobstructing bilateral renal calculi. IVC filter at the level of the kidneys. Moderate amount of fecal material seen throughout the colon. Clinical correlation advised. Assessment & Plan - Assessment and Plan (Free Text) Assessment: #. UTI #. Sepsis #. Chronic Pancreatitis #. HTN #. Hypokalemia #. Constipation #. Anxiety depressive disorder Plan: 77 yo female with PMH of anxiety with chronic benzo and opioid use, A flutter, chronic pancreatitis, ampullary diverticulum, status post PTC tube placement by interventional radiology in October 2016, and HTN, presents to the emergency department today with a 2 days history of Acute pain to the epigastrum and the suprapubic region. This is associated with nausea but no vomitus. She refers minimal dysuria along with constipation #. UTI - Cefepime - IV Fluids #. Sepsis - Follow urine and blood culture - Cefepime #. Chronic Pancreatitis - Pain management #. HTN - Amlodipine - mETOPROLOL #. Hypokalemia - HCL replaced - Follow electrolytes #. Constipation - Colace/ Lactulose - Senakot #. Anxiety Depressive Disorder - Cymbalta #. DVT prophylaxis with Lovenox - No SCD as pte has hx of DVT #. Code Status: Full - Date & Time Date: 02/11/18 Time: 22:09
[2018-02-11] MEDS ORDERED: Cefepime 2 GM in Sodium Chloride 0.9% 100 ML IVPB SCH (22:45)
[2018-02-11] MEDS ORDERED: Ergocalciferol 50,000 Intl Units Cap PO SCH (23:00)
[2018-02-12] MEDS: Pantoprazole 20 mg EC Tab PO SCH ×2 (00:47→09:20)
[2018-02-12 06:32] LABS: BASO % 0.3 % (0.0-2.0); EOS # 0.1 K/uL (0.0-0.7); EOS % 0.9 % (0.0-4.0); HEMOGLOBIN 10.5 g/dL (12.0-16.0); LYMPH # 1.5 K/uL (1.0-4.3); LYMPH % 12.3 % (20.0-40.0); MEAN CELL VOLUME 96.3 fl (81.0-99.0); MEAN CORPUSCULAR HEMOGLOBIN 30.6 pg (27.0-31.0); MEAN CORPUSCULAR HGB CONC 31.8 g/dL (33.0-37.0); MEAN PLATELET VOLUME 7.2 fl (7.2-11.7); MONO # 1.3 K/uL (0.0-0.8); MONO % 10.9 % (0.0-10.0); NEUT # 9.1 K/uL (1.8-7.0); NEUT % 75.6 % (50.0-75.0); NRBC % 0.1 % (0.0-0.0); RBC 3.42 Mil/uL (3.80-5.20); RED CELL DISTRIBUTION WIDTH 13.8 % (11.5-14.5)
[2018-02-12 07:29] LABS: BLOOD UREA NITROGEN 13 mg/dl (7-17); CALCIUM 8.8 mg/dL (8.4-10.2); GFR NON-AFRICAN AMERICAN > 60
[2018-02-12] MEDS ORDERED: Oxycodone/Acetaminophen 5/325 mg Tab ONE ×2 (07:29→16:38)
[2018-02-12] MEDS: Oxycodone/Acetaminophen 5/325 mg Tab PO PRN ×2 (07:29→16:37)
[2018-02-12] MEDS ORDERED: Patient's Own Med (Multivitamin [Multi-Vitamin Daily] 1 TAB) PO SCH (09:00)
[2018-02-12] MEDS: Multivitamin With Minerals Tab PO SCH (09:20)
[2018-02-12] MEDS: Simethicone 80 mg Chewtab PO PRN (09:23)
[2018-02-12] MEDS: Enoxaparin 40 mg Syringe SC SCH (09:24)
--- NOTE | 2018-02-12 10:40 | CT ---
Date of service: 02/11/2018 PROCEDURE: CT Abdomen and Pelvis with contrast HISTORY: Gen abd pain COMPARISON: 10/01/2017 TECHNIQUE: Contrast dose: 90 mL Omnipaque 300 Radiation dose: Total exam DLP = 869.33 mGy-cm. This CT exam was performed using one or more of the following dose reduction techniques: Automated exposure control, adjustment of the mA and/or kV according to patient size, and/or use of iterative reconstruction technique. FINDINGS: LOWER THORAX: Linear scar/atelectasis left lower lobe. LIVER: Mild hepatomegaly. Normal contour and attenuation. No focal mass. Mild central intrahepatic biliary ductal dilatation. GALLBLADDER AND BILE DUCTS: Distended gallbladder. No calcified gallstones. Dilatation of the common bile duct up to 14 mm. This is mildly increased in diameter when compared to the prior examination. No calcified calculus identified in the distal CBD. Etiology unclear rule out choledocholithiasis or biliary stricture/ampullary neoplasm. Please note that this represents interval change since prior CT of 09/26/2017. Please correlate with clinical and laboratory evaluation. PANCREAS: Mildly atrophic. Multiple punctate calcifications. Findings consistent with chronic pancreatitis. No ductal dilatation. No mass. No peripancreatic fluid. SPLEEN: Unremarkable. ADRENALS: Unremarkable. No mass. KIDNEYS AND URETERS: Multiple bilateral nonobstructing calculi. Largest right renal pelvic calculus 17 mm. Largest left renal pelvic calculus 22 mm. No renal mass. No hydronephrosis. No hydroureter VASCULATURE: Vena caval filter. No evidence of abdominal aortic aneurysm. There is atherosclerotic calcification of the abdominal aorta. Delete BOWEL: Small hiatal hernia. No bowel obstruction. APPENDIX: Normal appendix. PERITONEUM: Unremarkable. No free fluid. No free air. LYMPH NODES: Unremarkable. No enlarged lymph nodes. BLADDER: Nondistended REPRODUCTIVE: Normal postmenopausal uterus BONES: No acute fracture. Probable hemangioma T12 and L4 vertebral bodies. Multilevel degenerative disc disease of the lumbar spine. Severe osteoarthritis of right hip with remodeling of the acetabulum and superior subluxation of femoral head mild lumbar dextroscoliosis. OTHER FINDINGS: None. IMPRESSION: Bilateral multiple large nonobstructing renal calculi dilated common bile duct with mild central intrahepatic biliary dilatation. Please correlate with clinical and laboratory evaluation. Chronic pancreatitis. Small hiatal hernia. Vena caval filter. Severe osteoarthritis of right hip. Multilevel degenerative disc disease of the lumbar spine. The preliminary findings for this examination were reported by [facility] Rad[facility] at 7:53 p.m. on 02/11/2018. There is discordance of this report with the preliminary findings. Dilated common bile duct was not described in the preliminary report of this examination.
--- NOTE | 2018-02-12 10:52 | CP.PCM.PN ---
Subjective - Date & Time of Evaluation Date of Evaluation: 02/12/18 Time of Evaluation: 09:30 - Subjective Subjective: 77 y/o F was seen and examined by bedside. Pt reports feeling OK, complains of mild lower abdominal pain, reports that burning pain with urination began 1 week ago. Pt denies nausea or vomiting. Pt usually does NOT eat breakfast, but eats lunch and dinner. Pt reports normal appetite. Pt afebrile, tolerating PO with No acute events overnight. Objective - Vital Signs/Intake and Output Vital Signs (last 24 hours): Temp Pulse Resp BP Pulse Ox 98.3 F 85 18 159/92 H 100 02/12/18 07:42 02/12/18 09:23 02/12/18 07:42 02/12/18 09:23 02/12/18 07:42 - Medications Medications: Current Medications Alprazolam (Xanax) 1 mg PO Q6 PRN PRN Reason: Anxiety Last Admin: 02/12/18 09:28 Dose: 1 mg Amlodipine Besylate (Norvasc) 5 mg PO DAILY [facility] Last Admin: 02/12/18 09:20 Dose: 5 mg Ascorbic Acid (Vitamin C 500 Mg Tab) 500 mg PO DAILY [facility] Last Admin: 02/12/18 09:21 Dose: 500 mg Aspirin (Ecotrin) 81 mg PO DAILY [facility] Last Admin: 02/12/18 09:21 Dose: 81 mg Docusate Sodium (Colace) 100 mg PO TID PRN PRN Reason: Constipation Last Admin: 02/12/18 09:23 Dose: 100 mg Duloxetine HCl (Cymbalta) 60 mg PO HS [facility] Last Admin: 02/12/18 00:46 Dose: 60 mg Enoxaparin Sodium (Lovenox) 40 mg SC DAILY [facility]; Protocol Last Admin: 02/12/18 09:24 Dose: 40 mg Ergocalciferol (Drisdol 50,000 Intl Units Cap) 1 cap PO Q7D [facility] Last Admin: 02/12/18 00:48 Dose: 1 cap Gabapentin (Neurontin) 300 mg PO DAILY [facility] Last Admin: 02/12/18 09:20 Dose: 300 mg Cefepime HCl 2 gm/ Sodium (Chloride) 100 mls @ 100 mls/hr IVPB Q12@0100,1300 [facility]; Protocol Metoprolol Tartrate (Lopressor) 12.5 mg PO Q12 [facility] Last Admin: 02/12/18 09:23 Dose: 12.5 mg Multivitamins/Minerals (Therapeutic-M Tab) 1 tab PO DAILY [facility] Last Admin: 02/12/18 09:20 Dose: 1 tab Ondansetron HCl (Zofran Tab) 4 mg PO Q8 PRN PRN Reason: Nausea/Vomiting Oxycodone/Acetaminophen (Percocet 5/325 Mg Tab) 1 tab PO Q6 PRN PRN Reason: Other Stop: 02/14/18 22:37 Last Admin: 02/12/18 07:29 Dose: 1 tab Pantoprazole Sodium (Protonix Ec Tab) 20 mg PO DAILY [facility] Last Admin: 02/12/18 09:20 Dose: 20 mg Sennosides (Senokot Tab) 25.8 mg PO [facility] Last Admin: 02/12/18 00:48 Dose: 25.8 mg Simethicone (Mylicon Chew Tab) 80 mg PO Q6 PRN PRN Reason: Gas relief Last Admin: 02/12/18 09:23 Dose: 80 mg Trazodone HCl (Desyrel) 50 mg PO [facility] Last Admin: 02/12/18 00:47 Dose: 50 mg - Labs Labs: 02/12/18 06:20 02/12/18 07:01 PT 14.0 Seconds (9.8-13.1) H 02/11/18 18:00 INR 1.2 02/11/18 18:00 APTT 37.5 Seconds (25.6-37.1) H 02/11/18 18:00 - Constitutional Appears: Well, No Acute Distress - Head Exam Head Exam: NORMAL INSPECTION - Eye Exam Eye Exam: EOMI, Normal appearance - ENT Exam ENT Exam: Mucous Membranes Moist - Neck Exam Neck Exam: Full ROM, Normal Inspection. absent: Thyromegaly - Respiratory Exam Respiratory Exam: NORMAL BREATHING PATTERN. absent: Rhonchi, Wheezes, Respiratory Distress - Cardiovascular Exam Cardiovascular Exam: REGULAR RHYTHM, +S1, +S2 - GI/Abdominal Exam GI & Abdominal Exam: Soft, Tenderness (mild on suprapubic.), Normal Bowel Sounds. absent: Rigid - Extremities Exam Extremities Exam: Full ROM. absent: Calf Tenderness, Joint Swelling - Back Exam Back Exam: absent: CVA tenderness (L), CVA tenderness (R) - Neurological Exam Neurological Exam: Alert, Awake. absent: Altered Assessment and Plan - Assessment and Plan (Free Text) Assessment: 77 y/o female with a PMHx of anxiety w/ chronic benzo and opioid use, A flutter, chronic pancreatitis, ampullary diverticulum, s/p PTC tube placement by IR on 10/2016, and HTN, was admitted for evaluation and management of sepsis due to acute UTI. PLAN: >UTI --Acute, symptomatic --Urine Cx showing Gran Negative Rods. --F/U final report. --On IV Cefepime (Past urine cx showing E. Coli resistant to ciprofloxacin) >Sepsis --Meets Sepsis criteria: Leukocytosis, HR>90 at ER and postive Urine Culture as infection sourced. --Follow final reports from Urine and Blood culture --C/w IV Cefepime >Chronic Pancreatitis --C/w Pain management >HTN --Home meds resumed >Hypokalemia --Resolved. >Constipation --Colace/ Lactulose --Senakot >Anxiety Depressive Disorder --Home meds resumed >DVT prophylaxis --Lovenox SC daily.
[2018-02-12] MEDS: Cefepime 2 GM in Sodium Chloride 0.9% 100 ML IVPB SCH (16:13)
--- NOTE | 2018-02-12 18:18 | PQF ---
PROVIDER RESPONSE TEXT: Provider was unable to determine a response for this query. REVIEWER QUERY TEXT: Depression Type Anxiety Depressive Disorder is documented in the Medical Record. Please specify the type Such as: -- Anxiety depression, mild or not persistent -- Anxiety depression, persistent -- Other, please specify --Unable to determine --Laron hernandez xanax The patient's Clinical Indicators include: -- Query created by: Yohana Willard on 02/12/2018 2:04 PM Electronically signed by: Lillian Garcias 02/12/2018 6:15 PM
[2018-02-13] MEDS: Cefepime 2 GM in Sodium Chloride 0.9% 100 ML IVPB SCH ×2 (01:23→13:19)
[2018-02-13] MEDS: Oxycodone/Acetaminophen 5/325 mg Tab PO PRN (06:56)
[2018-02-13 09:00] LABS: BLOOD UREA NITROGEN 20 mg/dl (7-17); CALCIUM 8.4 mg/dL (8.4-10.2); GFR NON-AFRICAN AMERICAN > 60
[2018-02-13] MEDS: Pantoprazole 20 mg EC Tab PO SCH (09:02)
[2018-02-13 09:03] LABS: HEMOGLOBIN 10.2 g/dL (12.0-16.0); MEAN CELL VOLUME 93.3 fl (81.0-99.0); MEAN CORPUSCULAR HEMOGLOBIN 31.2 pg (27.0-31.0); MEAN CORPUSCULAR HGB CONC 33.5 g/dL (33.0-37.0); RBC 3.28 Mil/uL (3.80-5.20); RED CELL DISTRIBUTION WIDTH 13.6 % (11.5-14.5); WHITE BLOOD COUNT 9.9 K/uL (4.8-10.8)
[2018-02-13] MEDS: Enoxaparin 40 mg Syringe SC SCH (09:14)
--- NOTE | 2018-02-13 12:24 | CP.PCM.PN ---
Subjective - Date & Time of Evaluation Date of Evaluation: 02/13/18 Time of Evaluation: 10:00 - Subjective Subjective: 77 y/o F was seen and examined by bedside. Pt reports feeling well, has good appetite, reports mild pain on epigastrium and extremities, pain medication given. Dysuria has improved according to patient but still present. Pt denies nausea or vomiting. Pt afebrile, tolerating PO with NO acute events overnight. Objective - Vital Signs/Intake and Output Vital Signs (last 24 hours): Temp Pulse Resp BP Pulse Ox 97.8 F 77 20 110/68 96 02/13/18 09:08 02/13/18 09:14 02/13/18 09:08 02/13/18 09:14 02/13/18 09:08 - Medications Medications: Current Medications Alprazolam (Xanax) 1 mg PO Q6 PRN PRN Reason: Anxiety Last Admin: 02/13/18 09:27 Dose: 1 mg Amlodipine Besylate (Norvasc) 5 mg PO DAILY [facility] Last Admin: 02/13/18 09:03 Dose: 5 mg Ascorbic Acid (Vitamin C 500 Mg Tab) 500 mg PO DAILY [facility] Last Admin: 02/13/18 09:03 Dose: 500 mg Aspirin (Ecotrin) 81 mg PO DAILY [facility] Last Admin: 02/13/18 09:03 Dose: 81 mg Docusate Sodium (Colace) 100 mg PO TID PRN PRN Reason: Constipation Last Admin: 02/12/18 09:23 Dose: 100 mg Duloxetine HCl (Cymbalta) 60 mg PO HS [facility] Last Admin: 02/12/18 22:39 Dose: 60 mg Enoxaparin Sodium (Lovenox) 40 mg SC DAILY [facility]; Protocol Last Admin: 02/13/18 09:14 Dose: 40 mg Ergocalciferol (Drisdol 50,000 Intl Units Cap) 1 cap PO Q7D [facility] Last Admin: 02/12/18 00:48 Dose: 1 cap Gabapentin (Neurontin) 300 mg PO DAILY [facility] Last Admin: 02/13/18 09:02 Dose: 300 mg Cefepime HCl 2 gm/ Sodium (Chloride) 100 mls @ 100 mls/hr IVPB Q12@0100,1300 [facility]; Protocol Last Admin: 02/13/18 01:23 Dose: 100 mls/hr Metoprolol Tartrate (Lopressor) 12.5 mg PO Q12 [facility] Last Admin: 02/13/18 09:14 Dose: 12.5 mg Multivitamins/Minerals (Therapeutic-M Tab) 1 tab PO DAILY [facility] Last Admin: 02/12/18 09:20 Dose: 1 tab Ondansetron HCl (Zofran Tab) 4 mg PO Q8 PRN PRN Reason: Nausea/Vomiting Oxycodone/Acetaminophen (Percocet 5/325 Mg Tab) 1 tab PO Q6 PRN PRN Reason: Other Stop: 02/14/18 22:37 Last Admin: 02/13/18 06:56 Dose: 1 tab Pantoprazole Sodium (Protonix Ec Tab) 20 mg PO DAILY [facility] Last Admin: 02/13/18 09:02 Dose: 20 mg Sennosides (Senokot Tab) 25.8 mg PO HS [facility] Last Admin: 02/12/18 22:51 Dose: 25.8 mg Simethicone (Mylicon Chew Tab) 80 mg PO Q6 PRN PRN Reason: Gas relief Last Admin: 02/12/18 09:23 Dose: 80 mg Trazodone HCl (Desyrel) 50 mg PO [facility] Last Admin: 02/12/18 22:38 Dose: 50 mg - Labs Labs: 02/13/18 06:30 02/13/18 04:00 PT 14.0 Seconds (9.8-13.1) H 02/11/18 18:00 INR 1.2 02/11/18 18:00 APTT 37.5 Seconds (25.6-37.1) H 02/11/18 18:00 - Skin Additional comments: - Constitutional Appears: Well, No Acute Distress - Head Exam Head Exam: NORMAL INSPECTION - Eye Exam Eye Exam: EOMI, Normal appearance - ENT Exam ENT Exam: Mucous Membranes Moist - Neck Exam Neck Exam: Full ROM, Normal Inspection. absent: Thyromegaly - Respiratory Exam Respiratory Exam: NORMAL BREATHING PATTERN. absent: Rhonchi, Wheezes, Respiratory Distress - Cardiovascular Exam Cardiovascular Exam: REGULAR RHYTHM, +S1, +S2 - GI/Abdominal Exam GI & Abdominal Exam: Soft, Tenderness (mild on suprapubic.), Normal Bowel Sounds. absent: Rigid - Extremities Exam Extremities Exam: Full ROM. absent: Calf Tenderness, Joint Swelling - Back Exam Back Exam: absent: CVA tenderness (L), CVA tenderness (R) - Neurological Exam Neurological Exam: Alert, Awake. absent: Altered Assessment and Plan - Assessment and Plan (Free Text) Assessment: 77 y/o female with a PMHx of anxiety w/ chronic benzo and opioid use, A flutter, chronic pancreatitis, ampullary diverticulum, s/p PTC tube placement by IR on 10/2016, and HTN, was admitted for evaluation and management of sepsis due to acute UTI. --Urine Cx: E.Coli resistant to Ciprofloxacin. PLAN: >UTI --Acute, symptomatic --Afebrile, leukocytosis resolved. --Normal renal function. --On IV Cefepime. >Sepsis --Improved --Follow Blood culture --C/w IV Cefepime >Chronic Pancreatitis --C/w Pain management >HTN --Home meds resumed >Hypokalemia --Resolved. >Constipation --Colace/ Lactulose --Senokot >Anxiety Depressive Disorder --Home meds resumed >DVT prophylaxis --Lovenox SC daily.
[2018-02-13] MEDS: Simethicone 80 mg Chewtab PO PRN (13:19)
[2018-02-13] MEDS: Multivitamin With Minerals Tab PO SCH (13:19)
[2018-02-14] MEDS: Cefepime 2 GM in Sodium Chloride 0.9% 100 ML IVPB SCH ×2 (00:42→12:25)
[2018-02-14 07:53] LABS: HEMOGLOBIN 10.4 g/dL (12.0-16.0); MEAN CELL VOLUME 93.8 fl (81.0-99.0); MEAN CORPUSCULAR HEMOGLOBIN 31.4 pg (27.0-31.0); MEAN CORPUSCULAR HGB CONC 33.5 g/dL (33.0-37.0); RBC 3.32 Mil/uL (3.80-5.20); RED CELL DISTRIBUTION WIDTH 13.8 % (11.5-14.5); WHITE BLOOD COUNT 7.4 K/uL (4.8-10.8)
[2018-02-14 08:06] LABS: BLOOD UREA NITROGEN 23 mg/dl (7-17); CALCIUM 8.7 mg/dL (8.4-10.2); GFR NON-AFRICAN AMERICAN > 60
[2018-02-14] MEDS: Enoxaparin 40 mg Syringe SC SCH (09:20)
[2018-02-14] MEDS: Pantoprazole 20 mg EC Tab PO SCH (09:21)
[2018-02-14] MEDS: Oxycodone/Acetaminophen 5/325 mg Tab PO PRN (10:10)
[2018-02-14] MEDS: Multivitamin With Minerals Tab PO SCH (12:29)
--- NOTE | 2018-02-14 17:40 | CP.PCM.PN ---
Subjective - Date & Time of Evaluation Date of Evaluation: 02/14/18 Time of Evaluation: 10:10 - Subjective Subjective: 77 y/o F was seen and examined by bedside. Pt reports feeling generalized weakness which worsens especially with movement. Abdominal pain is resolved. Pt denies nausea or vomiting. Pt usually does NOT eat breakfast, but eats lunch and dinner. Pt reports normal appetite. Pt afebrile, tolerating PO with No acute events overnight. Objective - Vital Signs/Intake and Output Vital Signs (last 24 hours): Temp Pulse Resp BP Pulse Ox 97.8 F 83 20 116/75 96 02/14/18 16:58 02/14/18 16:58 02/14/18 16:58 02/14/18 16:58 02/14/18 16:58 - Medications Medications: Current Medications Alprazolam (Xanax) 1 mg PO Q6 PRN PRN Reason: Anxiety Last Admin: 02/14/18 15:43 Dose: 1 mg Amlodipine Besylate (Norvasc) 5 mg PO DAILY [facility] Last Admin: 02/14/18 09:21 Dose: 5 mg Ascorbic Acid (Vitamin C 500 Mg Tab) 500 mg PO DAILY [facility] Last Admin: 02/14/18 09:21 Dose: 500 mg Aspirin (Ecotrin) 81 mg PO DAILY [facility] Last Admin: 02/14/18 09:21 Dose: 81 mg Docusate Sodium (Colace) 100 mg PO TID PRN PRN Reason: Constipation Last Admin: 02/14/18 10:10 Dose: 100 mg Duloxetine HCl (Cymbalta) 60 mg PO HS [facility] Last Admin: 02/13/18 21:07 Dose: 60 mg Enoxaparin Sodium (Lovenox) 40 mg SC DAILY [facility]; Protocol Last Admin: 02/14/18 09:20 Dose: 40 mg Ergocalciferol (Drisdol 50,000 Intl Units Cap) 1 cap PO Q7D [facility] Last Admin: 02/12/18 00:48 Dose: 1 cap Gabapentin (Neurontin) 300 mg PO DAILY [facility] Last Admin: 02/14/18 09:21 Dose: 300 mg Cefepime HCl 2 gm/ Sodium (Chloride) 100 mls @ 100 mls/hr IVPB Q12@0100,1300 [facility]; Protocol Last Admin: 02/14/18 12:25 Dose: 100 mls/hr Metoprolol Tartrate (Lopressor) 12.5 mg PO Q12 [facility] Last Admin: 02/14/18 09:21 Dose: 12.5 mg Multivitamins/Minerals (Therapeutic-M Tab) 1 tab PO DAILY [facility] Last Admin: 02/14/18 12:29 Dose: 1 tab Ondansetron HCl (Zofran Tab) 4 mg PO Q8 PRN PRN Reason: Nausea/Vomiting Oxycodone/Acetaminophen (Percocet 5/325 Mg Tab) 1 tab PO Q6 PRN PRN Reason: Other Stop: 02/14/18 22:37 Last Admin: 02/14/18 10:10 Dose: 1 tab Pantoprazole Sodium (Protonix Ec Tab) 20 mg PO DAILY [facility] Last Admin: 02/14/18 09:21 Dose: 20 mg Sennosides (Senokot Tab) 25.8 mg PO HS [facility] Last Admin: 02/13/18 21:07 Dose: 25.8 mg Simethicone (Mylicon Chew Tab) 80 mg PO Q6 PRN PRN Reason: Gas relief Last Admin: 02/13/18 13:19 Dose: 80 mg Trazodone HCl (Desyrel) 50 mg PO [facility] Last Admin: 02/13/18 21:07 Dose: 50 mg - Labs Labs: 02/14/18 06:30 02/14/18 06:30 PT 14.0 Seconds (9.8-13.1) H 02/11/18 18:00 INR 1.2 02/11/18 18:00 APTT 37.5 Seconds (25.6-37.1) H 02/11/18 18:00 - Constitutional Appears: No Acute Distress - Head Exam Head Exam: ATRAUMATIC, NORMOCEPHALIC - Eye Exam Eye Exam: EOMI - ENT Exam ENT Exam: Mucous Membranes Moist - Respiratory Exam Respiratory Exam: Clear to Ausculation Bilateral, NORMAL BREATHING PATTERN. absent: Rales, Rhonchi, Wheezes, Respiratory Distress - Cardiovascular Exam Cardiovascular Exam: REGULAR RHYTHM, +S1, +S2 - GI/Abdominal Exam GI & Abdominal Exam: Soft, Normal Bowel Sounds. absent: Distended, Tenderness - Extremities Exam Extremities Exam: absent: Calf Tenderness, Pedal Edema, Tenderness - Neurological Exam Neurological Exam: Alert, Awake, Oriented x3 - Psychiatric Exam Psychiatric exam: Normal Affect, Normal Mood - Skin Skin Exam: Dry, Intact, Normal Color, Warm Assessment and Plan - Assessment and Plan (Free Text) Assessment: 77 y/o female with a PMHx of anxiety w/ chronic benzo and opioid use, A flutter, chronic pancreatitis, ampullary diverticulum, s/p PTC tube placement by IR on 10/2016, and HTN, was admitted for evaluation and management of sepsis due to acute UTI. --Urine Cx: E.Coli resistant to Ciprofloxacin. Plan: UTI -Acute, symptomatic -Afebrile, leukocytosis resolved. -Normal renal function. -On IV Cefepime. Sepsis -Improved -Follow Blood culture -C/w IV Cefepime Chronic Pancreatitis -C/w Pain management Generalized weakness - Will order PT evaluation - Rehab upon discharge HTN -Home meds resumed Constipation -Colace/ Lactulose -Senokot Anxiety Depressive Disorder -Home meds resumed DVT prophylaxis -Lovenox SC daily.
[2018-02-15] MEDS: Cefepime 2 GM in Sodium Chloride 0.9% 100 ML IVPB SCH ×2 (01:43→12:42)
[2018-02-15 06:34] LABS: HEMOGLOBIN 10.4 g/dL (12.0-16.0); MEAN CELL VOLUME 93.4 fl (81.0-99.0); MEAN CORPUSCULAR HEMOGLOBIN 31.7 pg (27.0-31.0); RBC 3.27 Mil/uL (3.80-5.20); RED CELL DISTRIBUTION WIDTH 13.5 % (11.5-14.5); WHITE BLOOD COUNT 7.6 K/uL (4.8-10.8)
[2018-02-15 06:49] LABS: BLOOD UREA NITROGEN 26 mg/dl (7-17); CALCIUM 8.5 mg/dL (8.4-10.2); GFR NON-AFRICAN AMERICAN > 60
[2018-02-15 08:54] VITALS: TEMP 97.5
[2018-02-15] MEDS: Enoxaparin 40 mg Syringe SC SCH (09:47)
[2018-02-15] MEDS: Multivitamin With Minerals Tab PO SCH (09:47)
[2018-02-15] MEDS: Pantoprazole 20 mg EC Tab PO SCH (09:47)
[2018-02-15] MEDS ORDERED: Oxycodone/Acetaminophen 5/325 mg Tab PO PRN (11:13)
--- NOTE | 2018-02-15 15:08 | CP.PCM.DIS ---
<Ray Hunter - Last Filed: 02/15/18 15:12> Provider - Provider Date of Admission: 02/11/18 21:40 Attending physician: Ibrahima Gardner Consults: 02/12/18 18:13 Nursing Referral for Wound Care Routine Comment: Physician Instructions: Reason For Exam: Sacral redness, left heel blanchable redness Time Spent in preparation of Discharge (in minutes): 35 Diagnosis - Discharge Diagnosis (1) Urinary tract infection Status: Acute (2) Weakness Status: Acute (3) Pancreatitis Status: Chronic (4) HTN (hypertension) Status: Chronic Hospital Course - Lab Results Lab Results: Micro Results 02/12/18 00:45 Blood-Venous Blood Culture - Preliminary NO GROWTH AFTER 3 DAYS 02/12/18 00:15 Blood-Venous Blood Culture - Preliminary NO GROWTH AFTER 3 DAYS 02/11/18 18:30 Urine Urine Culture - Final Escherichia Coli Most Recent Lab Values WBC 7.6 K/uL (4.8-10.8) 02/15/18 05:45 RBC 3.27 Mil/uL (3.80-5.20) L 02/15/18 05:45 Hgb 10.4 g/dL (12.0-16.0) L 02/15/18 05:45 Hct 30.5 % (34.0-47.0) L 02/15/18 05:45 MCV 93.4 fl (81.0-99.0) 02/15/18 05:45 MCH 31.7 pg (27.0-31.0) H 02/15/18 05:45 MCHC 34.0 g/dL (33.0-37.0) 02/15/18 05:45 RDW 13.5 % (11.5-14.5) 02/15/18 05:45 Plt Count 345 K/uL (130-400) 02/15/18 05:45 MPV 7.2 fl (7.2-11.7) 02/12/18 06:20 Neut % (Auto) 75.6 % (50.0-75.0) H 02/12/18 06:20 Lymph % (Auto) 12.3 % (20.0-40.0) L 02/12/18 06:20 [place] % (Auto) 10.9 % (0.0-10.0) H 02/12/18 06:20 Eos % (Auto) 0.9 % (0.0-4.0) 02/12/18 06:20 Baso % (Auto) 0.3 % (0.0-2.0) 02/12/18 06:20 Neut # (Auto) 9.1 K/uL (1.8-7.0) H 02/12/18 06:20 Lymph # (Auto) 1.5 K/uL (1.0-4.3) 02/12/18 06:20 [place] # (Auto) 1.3 K/uL (0.0-0.8) H 02/12/18 06:20 Eos # (Auto) 0.1 K/uL (0.0-0.7) 02/12/18 06:20 Baso # (Auto) 0.0 K/uL (0.0-0.2) 02/12/18 06:20 PT 14.0 Seconds (9.8-13.1) H 02/11/18 18:00 INR 1.2 02/11/18 18:00 APTT 37.5 Seconds (25.6-37.1) H 02/11/18 18:00 Sodium 140 mmol/l (132-148) 02/15/18 05:45 Potassium 4.2 MMOL/L (3.6-5.0) 02/15/18 05:45 Chloride 105 mmol/L (98-107) 02/15/18 05:45 Carbon Dioxide 30 mmol/L (22-30) 02/15/18 05:45 Anion Gap 9 (10-20) L 02/15/18 05:45 BUN 26 mg/dl (7-17) H 02/15/18 05:45 Creatinine 0.8 mg/dl (0.7-1.2) 02/15/18 05:45 Est GFR ( Amer) > 60 02/15/18 05:45 Est GFR (Non-Af Amer) > 60 02/15/18 05:45 Random Glucose 112 mg/dL (65-105) H 02/15/18 05:45 Calcium 8.5 mg/dL (8.4-10.2) 02/15/18 05:45 Phosphorus 3.6 mg/dl (2.5-4.5) 02/12/18 07:01 Magnesium 1.6 MG/DL (1.6-2.3) 02/12/18 07:01 Total Bilirubin 0.5 mg/dl (0.2-1.3) 02/11/18 18:00 AST 23 U/L (14-36) 02/11/18 18:00 ALT 15 U/L (9-52) 02/11/18 18:00 Alkaline Phosphatase 105 U/L (38-126) 02/11/18 18:00 Total Protein 8.2 G/DL (6.3-8.2) 02/11/18 18:00 Albumin 3.8 g/dL (3.5-5.0) 02/11/18 18:00 Globulin 4.3 gm/dL (2.2-3.9) H 02/11/18 18:00 Albumin/Globulin Ratio 0.9 (1.0-2.1) L 02/11/18 18:00 Lipase 17 U/L (23-300) L 02/11/18 18:00 Urine Color Yellow (YELLOW) 02/11/18 18:30 Urine Clarity Cloudy (Clear) 02/11/18 18:30 Urine pH 7.0 (5.0-8.0) 02/11/18 18:30 Ur Specific [employer] 1.014 (1.003-1.030) 02/11/18 18:30 Urine Protein 100 mg/dL (NEGATIVE) 02/11/18 18:30 Urine Glucose (UA) Neg mg/dL (NEGATIVE) 02/11/18 18:30 Urine Ketones Negative mg/dL (NEGATIVE) 02/11/18 18:30 Urine Blood Moderate (NEGATIVE) 02/11/18 18:30 Urine Nitrate Negative (NEGATIVE) 02/11/18 18:30 Urine Bilirubin Negative (NEGATIVE) 02/11/18 18:30 Urine Urobilinogen 0.2-1.0 mg/dL (0.2-1.0) 02/11/18 18:30 Ur Leukocyte Esterase Large Marco A/uL (Negative) 02/11/18 18:30 Urine RBC (Auto) 186 /hpf (0-3) H 02/11/18 18:30 Urine WBC Clumps (Auto) Many /hpf (NONE) H 02/11/18 18:30 Urine Microscopic WBC 832 /hpf (0-5) H 02/11/18 18:30 Ur Squamous Epith Cells 5 /hpf (0-5) 02/11/18 18:30 Amorphous Sediment Rare /ul (<OCC) H 02/11/18 18:30 Urine Bacteria Occ (<OCC) H 02/11/18 18:30 - Hospital Course Hospital Course: 77 yo female with PMH of anxiety with chronic benzo and opioid use, A flutter, chronic pancreatitis, ampullary diverticulum, status post PTC tube placement by interventional radiology in October 2016, and HTN, presents to the emergency department today with a 2 days history of Acute pain to the epigastrum and the suprapubic region. CBC, CMP, UA done in ED consistent with UTI so patient started on Cefepime, IV fluids and home medications. WBC count improved from 15.0 to 7.6 after Abx treatment. Urine culture positive for E. Coli sensitive to cvephalosporins. Patient's symptoms improved however patient continued to have generalized weakness. PT evaluation done who recommended TCU for further physical therapy. Patient to go to TCU for further physical therapy. Discharge Exam - Head Exam Head Exam: ATRAUMATIC, NORMOCEPHALIC - Eye Exam Eye Exam: EOMI, Normal appearance - Neck Exam Neck exam: Full Rom - Respiratory Exam Respiratory Exam: Clear to PA & Lateral, UNREMARKABLE. absent: Rales, Rhonchi, Wheezes, Respiratory Distress - Cardiovascular Exam Cardiovascular Exam: REGULAR RHYTHM, +S1, +S2. absent: Systolic Murmur - GI/Abdominal Exam GI & Abdominal Exam: Normal Bowel Sounds, Soft. absent: Tenderness - Back Exam Back exam: absent: CVA tenderness (L), CVA tenderness (R) - Neurological Exam Neurological exam: Alert, Altered, Oriented x3 - Psychiatric Exam Psychiatric exam: Normal Affect, Normal Mood - Skin Skin Exam: Dry, Intact, Normal Color, Warm Discharge Plan - Follow Up Plan Condition: FAIR Disposition: REHAB FACILITY/REHAB UNIT Instructions: Urinary Tract Infections in Adults, Preventing Falls Additional Instructions: Discharge to TCU for physical therapy <Radha Ken - Last Filed: 02/15/18 16:22> Provider - Provider Date of Admission: 02/11/18 21:40 Attending physician: Ibrahima Gardner Consults: 02/12/18 18:13 Nursing Referral for Wound Care Routine Comment: Physician Instructions: Reason For Exam: Sacral redness, left heel blanchable redness Hospital Course - Lab Results Lab Results: Micro Results 02/12/18 00:45 Blood-Venous Blood Culture - Preliminary NO GROWTH AFTER 3 DAYS 02/12/18 00:15 Blood-Venous Blood Culture - Preliminary NO GROWTH AFTER 3 DAYS 02/11/18 18:30 Urine Urine Culture - Final Escherichia Coli Most Recent Lab Values WBC 7.6 K/uL (4.8-10.8) 02/15/18 05:45 RBC 3.27 Mil/uL (3.80-5.20) L 02/15/18 05:45 Hgb 10.4 g/dL (12.0-16.0) L 02/15/18 05:45 Hct 30.5 % (34.0-47.0) L 02/15/18 05:45 MCV 93.4 fl (81.0-99.0) 02/15/18 05:45 MCH 31.7 pg (27.0-31.0) H 02/15/18 05:45 MCHC 34.0 g/dL (33.0-37.0) 02/15/18 05:45 RDW 13.5 % (11.5-14.5) 02/15/18 05:45 Plt Count 345 K/uL (130-400) 02/15/18 05:45 MPV 7.2 fl (7.2-11.7) 02/12/18 06:20 Neut % (Auto) 75.6 % (50.0-75.0) H 02/12/18 06:20 Lymph % (Auto) 12.3 % (20.0-40.0) L 02/12/18 06:20 [place] % (Auto) 10.9 % (0.0-10.0) H 02/12/18 06:20 Eos % (Auto) 0.9 % (0.0-4.0) 02/12/18 06:20 Baso % (Auto) 0.3 % (0.0-2.0) 02/12/18 06:20 Neut # (Auto) 9.1 K/uL (1.8-7.0) H 02/12/18 06:20 Lymph # (Auto) 1.5 K/uL (1.0-4.3) 02/12/18 06:20 [place] # (Auto) 1.3 K/uL (0.0-0.8) H 02/12/18 06:20 Eos # (Auto) 0.1 K/uL (0.0-0.7) 02/12/18 06:20 Baso # (Auto) 0.0 K/uL (0.0-0.2) 02/12/18 06:20 PT 14.0 Seconds (9.8-13.1) H 02/11/18 18:00 INR 1.2 02/11/18 18:00 APTT 37.5 Seconds (25.6-37.1) H 02/11/18 18:00 Sodium 140 mmol/l (132-148) 02/15/18 05:45 Potassium 4.2 MMOL/L (3.6-5.0) 02/15/18 05:45 Chloride 105 mmol/L (98-107) 02/15/18 05:45 Carbon Dioxide 30 mmol/L (22-30) 02/15/18 05:45 Anion Gap 9 (10-20) L 02/15/18 05:45 BUN 26 mg/dl (7-17) H 02/15/18 05:45 Creatinine 0.8 mg/dl (0.7-1.2) 02/15/18 05:45 Est GFR ( Amer) > 60 02/15/18 05:45 Est GFR (Non-Af Amer) > 60 02/15/18 05:45 Random Glucose 112 mg/dL (65-105) H 02/15/18 05:45 Calcium 8.5 mg/dL (8.4-10.2) 02/15/18 05:45 Phosphorus 3.6 mg/dl (2.5-4.5) 02/12/18 07:01 Magnesium 1.6 MG/DL (1.6-2.3) 02/12/18 07:01 Total Bilirubin 0.5 mg/dl (0.2-1.3) 02/11/18 18:00 AST 23 U/L (14-36) 02/11/18 18:00 ALT 15 U/L (9-52) 02/11/18 18:00 Alkaline Phosphatase 105 U/L (38-126) 02/11/18 18:00 Total Protein 8.2 G/DL (6.3-8.2) 02/11/18 18:00 Albumin 3.8 g/dL (3.5-5.0) 02/11/18 18:00 Globulin 4.3 gm/dL (2.2-3.9) H 02/11/18 18:00 Albumin/Globulin Ratio 0.9 (1.0-2.1) L 02/11/18 18:00 Lipase 17 U/L (23-300) L 02/11/18 18:00 Urine Color Yellow (YELLOW) 02/11/18 18:30 Urine Clarity Cloudy (Clear) 02/11/18 18:30 Urine pH 7.0 (5.0-8.0) 02/11/18 18:30 Ur Specific [employer] 1.014 (1.003-1.030) 02/11/18 18:30 Urine Protein 100 mg/dL (NEGATIVE) 02/11/18 18:30 Urine Glucose (UA) Neg mg/dL (NEGATIVE) 02/11/18 18:30 Urine Ketones Negative mg/dL (NEGATIVE) 02/11/18 18:30 Urine Blood Moderate (NEGATIVE) 02/11/18 18:30 Urine Nitrate Negative (NEGATIVE) 02/11/18 18:30 Urine Bilirubin Negative (NEGATIVE) 02/11/18 18:30 Urine Urobilinogen 0.2-1.0 mg/dL (0.2-1.0) 02/11/18 18:30 Ur Leukocyte Esterase Large Marco A/uL (Negative) 02/11/18 18:30 Urine RBC (Auto) 186 /hpf (0-3) H 02/11/18 18:30 Urine WBC Clumps (Auto) Many /hpf (NONE) H 02/11/18 18:30 Urine Microscopic WBC 832 /hpf (0-5) H 02/11/18 18:30 Ur Squamous Epith Cells 5 /hpf (0-5) 02/11/18 18:30 Amorphous Sediment Rare /ul (<OCC) H 02/11/18 18:30 Urine Bacteria Occ (<OCC) H 02/11/18 18:30 Attending/Attestation - Attestation I have personally seen and examined this patient.: Yes I have fully participated in the care of the patient.: Yes I have reviewed all pertinent clinical information, including history, physical exam and plan: Yes Notes (Text): 02/15/18 16:22 agree with findings and plan as above.
[2018-02-15 16:47] VITALS: BP 123/76; PULSE 70; RESP 18
[2018-02-15 22:38] VITALS: O2SAT 99
== END 2018-02-15 19:41 | DRG 872 ==
LOC: H.ER 17:14 → H.ERHOLD 21:40 → H.MEDSURG1 02-12 16:57
PROVIDERS: ADMIT Internal Medicine; ATTEND Internal Medicine
DX: A41.9 Sepsis, unspecified organism (principal); K86.1 Other chronic pancreatitis; N39.0 Urinary tract infection, site not specified; I48.92 Unspecified atrial flutter; E87.6 Hypokalemia; B96.20 Unspecified Escherichia coli [E. coli] as the cause of diseases classified elsewhere; E78.5 Hyperlipidemia, unspecified; F32.9 Major depressive disorder, single episode, unspecified; F41.9 Anxiety disorder, unspecified; I10 Essential (primary) hypertension; J44.9 Chronic obstructive pulmonary disease, unspecified; K21.9 Gastro-esophageal reflux disease without esophagitis; K44.9 Diaphragmatic hernia without obstruction or gangrene; K59.00 Constipation, unspecified; K82.8 Other specified diseases of gallbladder; K83.8 Other specified diseases of biliary tract; M16.11 Unilateral primary osteoarthritis, right hip; M51.36 Other intervertebral disc degeneration, lumbar region; M79.7 Fibromyalgia; M81.0 Age-related osteoporosis without current pathological fracture; N20.0 Calculus of kidney; Z16.23 Resistance to quinolones and fluoroquinolones; Z79.82 Long term (current) use of aspirin; Z86.010 Personal history of colon polyps; Z86.718 Personal history of other venous thrombosis and embolism; Z87.01 Personal history of pneumonia (recurrent); Z87.891 Personal history of nicotine dependence; Z90.49 Acquired absence of other specified parts of digestive tract; D64.9 Anemia, unspecified; G43.909 Migraine, unspecified, not intractable, without status migrainosus; H26.9 Unspecified cataract; G89.29 Other chronic pain; G62.9 Polyneuropathy, unspecified; K82.9 Disease of gallbladder, unspecified; N63.10 Unspecified lump in the right breast, unspecified quadrant; J40 Bronchitis, not specified as acute or chronic; K29.70 Gastritis, unspecified, without bleeding; M19.90 Unspecified osteoarthritis, unspecified site; R30.9 Painful micturition, unspecified; R60.0 Localized edema; Z79.899 Other long term (current) drug therapy; R53.1 Weakness

== ENCOUNTER 2018-02-15 16:09 | Inpatient (IN) | payer OTHER, MEDICAID ==
[2018-02-15 18:55] VITALS: BMI 31.0
[2018-02-15] MEDS ORDERED: Simethicone 80 mg Chewtab PO PRN (19:04)
[2018-02-16] MEDS: Cefepime 2 GM in Sodium Chloride 0.9% 100 ML IVPB SCH ×2 (05:33→17:27)
[2018-02-16 06:58] LABS: HEMOGLOBIN 11.2 g/dL (12.0-16.0); MEAN CELL VOLUME 93.8 fl (81.0-99.0); MEAN CORPUSCULAR HEMOGLOBIN 30.9 pg (27.0-31.0); RBC 3.63 Mil/uL (3.80-5.20); RED CELL DISTRIBUTION WIDTH 13.6 % (11.5-14.5); WHITE BLOOD COUNT 7.4 K/uL (4.8-10.8)
[2018-02-16 07:22] LABS: BLOOD UREA NITROGEN 24 mg/dl (7-17); CALCIUM 8.9 mg/dL (8.4-10.2); GFR NON-AFRICAN AMERICAN > 60
[2018-02-16] MEDS: Magnesium Oxide 400 mg Tab UD PO SCH ×2 (09:53→17:26)
[2018-02-16] MEDS: Multivitamin With Minerals Tab PO SCH (09:54)
[2018-02-16] MEDS: Pantoprazole 20 mg EC Tab PO SCH (09:54)
[2018-02-16] MEDS: Enoxaparin 40 mg Syringe SC SCH (09:55)
--- NOTE | 2018-02-16 12:36 | CP.PCM.HP ---
<VarshaVerónica - Last Filed: 02/16/18 13:14> History of Present Illness - History of Present Illness History of Present Illness: 77 yo female with PMH of anxiety with chronic benzo and opioid use, A flutter, chronic pancreatitis, ampullary diverticulum, status-post PTC tube placement (October 2016) and HTN, admitted for UTI (cx positive for E.coli sensitive to Rocephin) treated with Cefepime IV, IV fluids and home medications. Patient's symptoms improved (afebrile, WBC trending down) however patient continued to have generalized weakness. Patient admitted to TCU for physical therapy as per PT evaluation recommendation and continuation of IV antibiotics. Present on Admission - Present on Admission Any Indicators Present on Admission: No Review of Systems - Constitutional Constitutional: Weakness. absent: Chills - EENT Eyes: absent: Change in Vision - Respiratory Respiratory: absent: Cough, Dyspnea on Exertion - Gastrointestinal Gastrointestinal: absent: Abdominal Pain, Change in Bowel Habits - Genitourinary Genitourinary: Urinary Incontinence. absent: Dysuria, Hematuria - Musculoskeletal Musculoskeletal: Muscle Weakness - Neurological Neurological: Abnormal Gait, Weakness. absent: Dizziness, Headaches, Vertigo - Psychiatric Psychiatric: Anxiety Past Patient History - Infectious Disease Hx of Infectious Diseases: None - Tetanus Immunizations Tetanus Immunization: Unknown - Past Medical History & Family History Past Medical History?: Yes - Past Social History Smoking Status: Never Smoked - CARDIAC Hx Cardiac Disorders: Yes (htn) - PULMONARY Hx Respiratory Disorders: Yes (copd,pna) - NEUROLOGICAL Hx Neurological Disorder: No - HEENT Hx HEENT Problems: No - RENAL Hx Chronic Kidney Disease: No - ENDOCRINE/METABOLIC Hx Endocrine Disorders: No - HEMATOLOGICAL/ONCOLOGICAL Hx Blood Disorders: Yes - INTEGUMENTARY Hx Dermatological Problems: No - MUSCULOSKELETAL/RHEUMATOLOGICAL Hx Musculoskeletal Disorders: Yes (osteoporosis,fibromyalgia) Hx Falls: No - GASTROINTESTINAL Hx Gastritis: Yes Hx Pancreatitis: Yes - GENITOURINARY/GYNECOLOGICAL Hx Genitourinary Disorders: No - PSYCHIATRIC Hx Psychophysiologic Disorder: Yes (anx,dep) Hx Substance Use: No - SURGICAL HISTORY Hx Appendectomy: Yes Hx Carotid Endarterectomy: Yes Hx Cholecystectomy: Yes - ANESTHESIA Hx Anesthesia: Yes Hx Anesthesia Reactions: No Hx Malignant Hyperthermia: No Meds Allergies/Adverse Reactions: Allergies Allergy/AdvReac Type Severity Reaction Status Date / Time Penicillins Allergy RASH Verified 02/15/18 16:25 Physical Exam - Constitutional Appears: Well, Non-toxic, No Acute Distress - Head Exam Head Exam: NORMAL INSPECTION - Eye Exam Eye Exam: Normal appearance - ENT Exam ENT Exam: Mucous Membranes Moist - Neck Exam Neck exam: Positive for: Normal Inspection - Respiratory Exam Respiratory Exam: Clear to Auscultation Bilateral, NORMAL BREATHING PATTERN - Cardiovascular Exam Cardiovascular Exam: REGULAR RHYTHM, +S1, +S2 - GI/Abdominal Exam GI & Abdominal Exam: Normal Bowel Sounds, Soft. absent: Tenderness - Extremities Exam Additional comments: Left foot dressing dry and intact, heel not visualized - Neurological Exam Neurological exam: Alert, Oriented x3 - Psychiatric Exam Psychiatric exam: Normal Affect, Normal Mood - Skin Skin Exam: Dry, Intact, Normal Color, Warm Results - Vital Signs Recent Vital Signs: Last Vital Signs Temp 97.5 F L 02/16/18 10:00 Pulse 75 02/16/18 10:00 Resp 18 02/16/18 10:00 BP 162/88 H 02/16/18 10:00 Pulse Ox 99 02/16/18 10:00 - Labs Result Diagrams: 02/16/18 06:10 02/16/18 06:10 Labs: Laboratory Results - last 24 hr 02/16/18 02/16/18 06:10 06:10 WBC 7.4 RBC 3.63 L Hgb 11.2 L Hct 34.1 MCV 93.8 MCH 30.9 MCHC 33.0 RDW 13.6 Plt Count 376 Sodium 140 Potassium 4.5 Chloride 103 Carbon Dioxide 29 Anion Gap 13 BUN 24 H Creatinine 0.9 Est GFR ( Amer) > 60 Est GFR (Non-Af Amer) > 60 Random Glucose 112 H Calcium 8.9 Assessment & Plan - Assessment and Plan (Free Text) Assessment: 77 yo female with PMH of anxiety with chronic benzo and opioid use, A flutter, chronic pancreatitis, ampullary diverticulum, status-post PTC tube placement (October 2016) and HTN, admitted for UTI (cx positive for E.coli sensitive to Rocephin) and admitted to TCU for PT and continued IV antibiotics. Plan: UTI - Afebrile - Leukocytosis resolved - Urine culture (02/11): E.Coli resistant to Ciprofloxacin, sensitive to Rocephin - Normal renal function - IV Cefepime Sepsis - Improved - Blood culture (02/12) no growth - C/w IV Cefepime Chronic Pancreatitis - C/w Pain management Generalized weakness - PT as per HTN - Home meds resumed Constipation - Colace/ Lactulose - Senokot Anxiety Depressive Disorder - Home meds resumed <Lauren Ornelas Augustina - Last Filed: 02/16/18 13:40> Results - Vital Signs Recent Vital Signs: Last Vital Signs Temp 97.5 F L 02/16/18 10:00 Pulse 75 02/16/18 10:00 Resp 18 02/16/18 10:00 BP 162/88 H 02/16/18 10:00 Pulse Ox 99 02/16/18 10:00 - Labs Result Diagrams: 02/16/18 06:10 02/16/18 06:10 Labs: Laboratory Results - last 24 hr 02/16/18 02/16/18 06:10 06:10 WBC 7.4 RBC 3.63 L Hgb 11.2 L Hct 34.1 MCV 93.8 MCH 30.9 MCHC 33.0 RDW 13.6 Plt Count 376 Sodium 140 Potassium 4.5 Chloride 103 Carbon Dioxide 29 Anion Gap 13 BUN 24 H Creatinine 0.9 Est GFR ( Amer) > 60 Est GFR (Non-Af Amer) > 60 Random Glucose 112 H Calcium 8.9 Attending/Attestation - Attestation I have personally seen and examined this patient.: Yes I have fully participated in the care of the patient.: Yes I have reviewed all pertinent clinical information: Yes
[2018-02-16] MEDS: Oxycodone/Acetaminophen 5/325 mg Tab PO PRN (17:26)
[2018-02-17] MEDS: Cefepime 2 GM in Sodium Chloride 0.9% 100 ML IVPB SCH ×2 (05:19→17:00)
[2018-02-17] MEDS: Enoxaparin 40 mg Syringe SC SCH (08:26)
[2018-02-17] MEDS: Pantoprazole 20 mg EC Tab PO SCH (08:27)
[2018-02-17] MEDS: Multivitamin With Minerals Tab PO SCH (08:28)
[2018-02-17] MEDS: Magnesium Oxide 400 mg Tab UD PO SCH ×2 (08:28→16:27)
[2018-02-17] MEDS ORDERED: Multivitamin With Minerals Tab PO ONE (09:00)
[2018-02-17] MEDS ORDERED: Magnesium Oxide 400 mg Tab UD ONE (09:00)
[2018-02-17] MEDS ORDERED: Pantoprazole 20 mg EC Tab PO ONE (09:00)
[2018-02-17] MEDS: Oxycodone/Acetaminophen 5/325 mg Tab PO PRN (16:26)
[2018-02-18] MEDS: Oxycodone/Acetaminophen 5/325 mg Tab PO PRN ×3 (06:17→22:11)
[2018-02-18] MEDS: Cefepime 2 GM in Sodium Chloride 0.9% 100 ML IVPB SCH ×2 (06:17→17:17)
[2018-02-18] MEDS: Enoxaparin 40 mg Syringe SC SCH (09:03)
[2018-02-18] MEDS: Multivitamin With Minerals Tab PO SCH (09:04)
[2018-02-18] MEDS: Pantoprazole 20 mg EC Tab PO SCH (09:04)
[2018-02-18] MEDS: Magnesium Oxide 400 mg Tab UD PO SCH ×2 (09:04→17:17)
--- NOTE | 2018-02-18 20:48 | CP.PCM.PN ---
Subjective - Date & Time of Evaluation Date of Evaluation: 02/18/18 Time of Evaluation: 10:20 - Subjective Subjective: Patient seen and examined. Denied any complaint Objective - Vital Signs/Intake and Output Vital Signs (last 24 hours): Temp Pulse Resp BP Pulse Ox 98.0 F 68 20 106/64 96 02/18/18 19:39 02/18/18 19:39 02/18/18 19:39 02/18/18 19:39 02/18/18 19:39 - Medications Medications: Current Medications Acetaminophen (Tylenol 325mg Tab) 650 mg PO Q6 PRN PRN Reason: Pain, Mild (1-3) Alprazolam (Xanax) 1 mg PO Q6 PRN PRN Reason: Anxiety Last Admin: 02/18/18 17:16 Dose: 1 mg Amlodipine Besylate (Norvasc) 5 mg PO DAILY [facility] Last Admin: 02/18/18 09:04 Dose: 5 mg Ascorbic Acid (Vitamin C 500 Mg Tab) 500 mg PO DAILY [facility] Last Admin: 02/18/18 09:05 Dose: 500 mg Aspirin (Ecotrin) 81 mg PO DAILY [facility] Last Admin: 02/18/18 09:03 Dose: 81 mg Docusate Sodium (Colace) 100 mg PO TID PRN PRN Reason: Constipation Last Admin: 02/17/18 08:27 Dose: 100 mg Duloxetine HCl (Cymbalta) 60 mg PO HS [facility] Last Admin: 02/17/18 22:51 Dose: 60 mg Enoxaparin Sodium (Lovenox) 40 mg SC DAILY [facility]; Protocol Last Admin: 02/18/18 09:03 Dose: 40 mg Gabapentin (Neurontin) 300 mg PO DAILY [facility] Last Admin: 02/18/18 09:04 Dose: 300 mg Home Med (Lubiprostone [Amitiza]) 24 mcg PO DAILY [facility] Cefepime HCl 2 gm/ Sodium (Chloride) 100 mls @ 100 mls/hr IVPB Q12@0600,1800 [facility]; Protocol Last Admin: 02/18/18 17:17 Dose: 100 mls/hr Lactulose (Enulose) 20 gm PO Q8 PRN PRN Reason: Constipation Loratadine (Claritin) 10 mg PO DAILY [facility] Last Admin: 02/18/18 09:05 Dose: 10 mg Losartan Potassium (Cozaar) 100 mg PO DAILY [facility] Last Admin: 02/18/18 09:02 Dose: 100 mg Magnesium Oxide (Mag-Ox) 400 mg PO BID [facility] Last Admin: 02/18/18 17:17 Dose: 400 mg Metoprolol Tartrate (Lopressor) 12.5 mg PO Q12 [facility] Last Admin: 02/18/18 09:03 Dose: 12.5 mg Multivitamins/Minerals (Therapeutic-M Tab) 1 tab PO DAILY [facility] Last Admin: 02/18/18 09:04 Dose: 1 tab Ondansetron HCl (Zofran Tab) 4 mg PO Q8 PRN PRN Reason: Nausea/Vomiting Last Admin: 02/18/18 18:52 Dose: 4 mg Oxybutynin Chloride (Ditropan Tab) 5 mg PO DAILY [facility] Last Admin: 02/18/18 09:02 Dose: 5 mg Oxycodone/Acetaminophen (Percocet 5/325 Mg Tab) 1 tab PO Q6 PRN PRN Reason: Pain, moderate (4-7) Stop: 02/19/18 13:39 Last Admin: 02/18/18 14:24 Dose: 1 tab Pantoprazole Sodium (Protonix Ec Tab) 20 mg PO DAILY [facility] Last Admin: 02/18/18 09:04 Dose: 20 mg Sennosides (Senokot Tab) 8.6 mg PO BID PRN PRN Reason: Constipation Last Admin: 02/18/18 18:52 Dose: 8.6 mg Simethicone (Mylicon Chew Tab) 80 mg PO Q6 PRN PRN Reason: Gas relief Trazodone HCl (Desyrel) 50 mg PO HS [facility] Last Admin: 02/17/18 22:51 Dose: 50 mg - Labs Labs: 02/16/18 06:10 02/16/18 06:10 - Constitutional Appears: No Acute Distress - Head Exam Head Exam: ATRAUMATIC - Eye Exam Eye Exam: absent: Scleral icterus - ENT Exam ENT Exam: Mucous Membranes Moist - Neck Exam Neck Exam: absent: Meningismus - Respiratory Exam Respiratory Exam: absent: Rales, Rhonchi, Wheezes, Respiratory Distress - Cardiovascular Exam Cardiovascular Exam: REGULAR RHYTHM, +S1, +S2 - GI/Abdominal Exam GI & Abdominal Exam: Soft. absent: Tenderness - Rectal Exam Rectal Exam: Deferred - Neurological Exam Neurological Exam: Alert, Oriented x3 - Psychiatric Exam Psychiatric exam: Normal Affect - Skin Skin Exam: Dry, Intact Assessment and Plan - Assessment and Plan (Free Text) Assessment: 77 yo female with PMH of anxiety with chronic benzo and opioid use, A flutter, chronic pancreatitis, ampullary diverticulum, status-post PTC tube placement (October 2016) and HTN, admitted for UTI (cx positive for E.coli sensitive to Rocephin) and admitted to TCU for PT and continued IV antibiotics. 1. UTI - Afebrile - Leukocytosis resolved - Urine culture (02/11): E.Coli resistant to Ciprofloxacin, sensitive to Rocephin - Normal renal function - IV Cefepime 2. Sepsis - Improved - Blood culture (02/12) no growth - C/w IV Cefepime 3. Chronic Pancreatitis - C/w Pain management 4. Generalized weakness - PT as per 5. HTN - Home meds resumed 6. Constipation - Colace/ Lactulose - Senokot 7. Anxiety Depressive Disorder - Home meds resumed
[2018-02-19] MEDS: Cefepime 2 GM in Sodium Chloride 0.9% 100 ML IVPB SCH ×2 (05:26→17:05)
[2018-02-19] MEDS: Oxycodone/Acetaminophen 5/325 mg Tab PO PRN (08:32)
[2018-02-19] MEDS: Enoxaparin 40 mg Syringe SC SCH (08:34)
[2018-02-19] MEDS: Multivitamin With Minerals Tab PO SCH (08:35)
[2018-02-19] MEDS: Pantoprazole 20 mg EC Tab PO SCH (08:35)
[2018-02-19] MEDS: Magnesium Oxide 400 mg Tab UD PO SCH ×2 (08:36→16:41)
[2018-02-20] MEDS: Cefepime 2 GM in Sodium Chloride 0.9% 100 ML IVPB SCH ×2 (05:19→18:32)
[2018-02-20] MEDS: Oxycodone/Acetaminophen 5/325 mg Tab PO PRN (06:44)
[2018-02-20] MEDS: Enoxaparin 40 mg Syringe SC SCH (08:20)
[2018-02-20] MEDS: Multivitamin With Minerals Tab PO SCH (08:21)
[2018-02-20] MEDS: Magnesium Oxide 400 mg Tab UD PO SCH ×2 (08:23→16:54)
[2018-02-20] MEDS: Pantoprazole 20 mg EC Tab PO SCH (08:24)
[2018-02-20 20:08] LABS: SQUAMOUS EPITHIAL 1 /hpf (0-5); URINE BACTERIA MOD (<OCC); URINE BILIRUBIN NEGATIVE (NEGATIVE); URINE CLARITY SLIGHTY-CLOUDY (Clear); URINE COLOR YELLOW (YELLOW); URINE GLUCOSE (UA) NEG (NEGATIVE); URINE LEUKOCYTE ESTERASE MOD Leu/uL (Negative); URINE PROTEIN NEGATIVE (NEGATIVE); URINE UROBILINOGEN 0.2-1.0 mg/dL (0.2-1.0)
[2018-02-20 20:09] LABS: URINE BLOOD LARGE (NEGATIVE)
[2018-02-21] MEDS: Oxycodone/Acetaminophen 5/325 mg Tab PO PRN ×2 (05:47→16:56)
[2018-02-21 05:50] LABS: URINE BILIRUBIN NEGATIVE (NEGATIVE); URINE BLOOD SMALL (NEGATIVE); URINE CLARITY SLIGHTY-CLOUDY (Clear); URINE COLOR STRAW (YELLOW); URINE GLUCOSE (UA) NEG (NEGATIVE); URINE LEUKOCYTE ESTERASE MOD Leu/uL (Negative); URINE PROTEIN NEGATIVE (NEGATIVE); URINE UROBILINOGEN 0.2-1.0 mg/dL (0.2-1.0)
[2018-02-21 05:51] LABS: SQUAMOUS EPITHIAL 2 /hpf (0-5); URINE BACTERIA RARE (<OCC)
[2018-02-21] MEDS: Enoxaparin 40 mg Syringe SC SCH (08:32)
[2018-02-21] MEDS: Magnesium Oxide 400 mg Tab UD PO SCH ×2 (08:33→16:56)
[2018-02-21] MEDS: Multivitamin With Minerals Tab PO SCH (08:33)
[2018-02-21] MEDS: Pantoprazole 20 mg EC Tab PO SCH (08:33)
[2018-02-21] MEDS: Cefepime 2 GM in Sodium Chloride 0.9% 100 ML IVPB SCH (11:36)
[2018-02-21] MEDS: Cefdinir 300 MG CAP PO SCH (16:57)
[2018-02-22] MEDS: Enoxaparin 40 mg Syringe SC SCH (08:45)
[2018-02-22] MEDS: Cefdinir 300 MG CAP PO SCH ×2 (08:45→16:12)
[2018-02-22] MEDS: Magnesium Oxide 400 mg Tab UD PO SCH ×2 (08:46→16:13)
[2018-02-22] MEDS: Multivitamin With Minerals Tab PO SCH (08:46)
[2018-02-22] MEDS: Pantoprazole 20 mg EC Tab PO SCH (08:49)
[2018-02-22] MEDS: Oxycodone/Acetaminophen 5/325 mg Tab PO PRN (16:11)
[2018-02-23] MEDS: Enoxaparin 40 mg Syringe SC SCH (08:08)
[2018-02-23] MEDS: Cefdinir 300 MG CAP PO SCH ×2 (08:09→16:45)
[2018-02-23] MEDS: Magnesium Oxide 400 mg Tab UD PO SCH ×2 (08:09→16:44)
[2018-02-23] MEDS: Multivitamin With Minerals Tab PO SCH (08:12)
[2018-02-23] MEDS: Pantoprazole 20 mg EC Tab PO SCH (08:12)
--- NOTE | 2018-02-23 15:16 | CP.PCM.PN ---
Subjective - Date & Time of Evaluation Date of Evaluation: 02/23/18 Time of Evaluation: 11:30 - Subjective Subjective: Patient was seen and examined . Sitting in the chair and participating with PT. Hemodynamically stable, afebrile. Overall improving. Complains of frequent urination, no dysuria Objective - Vital Signs/Intake and Output Vital Signs (last 24 hours): Temp Pulse Resp BP Pulse Ox 97.6 F 75 20 133/80 98 02/23/18 09:50 02/23/18 11:24 02/23/18 09:50 02/23/18 09:50 02/23/18 09:50 - Medications Medications: Current Medications Acetaminophen (Tylenol 325mg Tab) 650 mg PO Q6 PRN PRN Reason: Pain, Mild (1-3) Last Admin: 02/23/18 14:31 Dose: 650 mg Alprazolam (Xanax) 1 mg PO Q6 PRN PRN Reason: Anxiety Last Admin: 02/23/18 07:48 Dose: 1 mg Amlodipine Besylate (Norvasc) 5 mg PO DAILY [facility] Last Admin: 02/23/18 08:10 Dose: 5 mg Ascorbic Acid (Vitamin C 500 Mg Tab) 500 mg PO DAILY [facility] Last Admin: 02/23/18 08:11 Dose: 500 mg Aspirin (Ecotrin) 81 mg PO DAILY [facility] Last Admin: 02/23/18 08:10 Dose: 81 mg Cefdinir (Omnicef) 300 mg PO BID [facility] Last Admin: 02/23/18 08:09 Dose: 300 mg Docusate Sodium (Colace) 100 mg PO TID PRN PRN Reason: Constipation Last Admin: 02/23/18 08:11 Dose: 100 mg Duloxetine HCl (Cymbalta) 60 mg PO HS [facility] Last Admin: 02/22/18 21:16 Dose: 60 mg Enoxaparin Sodium (Lovenox) 40 mg SC DAILY [facility]; Protocol Last Admin: 02/23/18 08:08 Dose: 40 mg Gabapentin (Neurontin) 300 mg PO DAILY [facility] Last Admin: 02/23/18 08:13 Dose: 300 mg Lactulose (Enulose) 20 gm PO Q8 PRN PRN Reason: Constipation Last Admin: 02/21/18 18:55 Dose: 20 gm Loratadine (Claritin) 10 mg PO DAILY [facility] Last Admin: 02/23/18 08:13 Dose: 10 mg Losartan Potassium (Cozaar) 100 mg PO DAILY [facility] Last Admin: 02/23/18 08:11 Dose: 100 mg Magnesium Oxide (Mag-Ox) 400 mg PO BID [facility] Last Admin: 02/23/18 08:09 Dose: 400 mg Metoprolol Tartrate (Lopressor) 12.5 mg PO Q12 [facility] Last Admin: 02/23/18 08:10 Dose: 12.5 mg Multivitamins/Minerals (Therapeutic-M Tab) 1 tab PO DAILY [facility] Last Admin: 02/23/18 08:12 Dose: 1 tab Ondansetron HCl (Zofran Tab) 4 mg PO Q8 PRN PRN Reason: Nausea/Vomiting Last Admin: 02/21/18 18:55 Dose: 4 mg Oxybutynin Chloride (Ditropan Tab) 5 mg PO DAILY [facility] Last Admin: 02/23/18 08:11 Dose: 5 mg Pantoprazole Sodium (Protonix Ec Tab) 20 mg PO DAILY [facility] Last Admin: 02/23/18 08:12 Dose: 20 mg Sennosides (Senokot Tab) 8.6 mg PO BID PRN PRN Reason: Constipation Last Admin: 02/23/18 08:09 Dose: 8.6 mg Simethicone (Mylicon Chew Tab) 80 mg PO Q6 PRN PRN Reason: Gas relief Last Admin: 02/21/18 17:01 Dose: 80 mg Trazodone HCl (Desyrel) 50 mg PO HS [facility] Last Admin: 02/22/18 21:15 Dose: 50 mg - Labs Labs: 02/16/18 06:10 02/16/18 06:10 - Constitutional Appears: Non-toxic, No Acute Distress - Head Exam Head Exam: ATRAUMATIC, NORMAL INSPECTION, NORMOCEPHALIC - Eye Exam Eye Exam: EOMI, PERRL Pupil Exam: NORMAL ACCOMODATION - ENT Exam ENT Exam: Normal Exam - Neck Exam Neck Exam: Normal Inspection - Respiratory Exam Respiratory Exam: Clear to Ausculation Bilateral, NORMAL BREATHING PATTERN. absent: Rhonchi, Wheezes, Respiratory Distress - Cardiovascular Exam Cardiovascular Exam: REGULAR RHYTHM, RRR, +S1, +S2. absent: JVD - GI/Abdominal Exam GI & Abdominal Exam: Soft, Normal Bowel Sounds. absent: Distended, Guarding, Tenderness, Rebound - Rectal Exam Rectal Exam: Deferred - Extremities Exam Extremities Exam: Full ROM, Normal Capillary Refill, Normal Inspection. 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 clinically patient is doing well, participating with PT. complains of frequent urination. 1. UTI Afebrile Leukocytosis resolved Urine culture (02/11): E.Coli sensitive to Rocephin Continue omnicef 2. Overactive bladder Patient on oxybutinin 5 mg daily . willincrease to 5 mg P{O TID 3. Sepsis resolved 4. Chronic Pancreatitis continue Pain management 5. Generalized weakness continue PT 6. HTN controlled on Norvasc , Losartan and Metoprolol 7. Constipation on Colace/ Lactulose and Senokot 8. Anxiety Depressive Disorder on Trazodone and Cymbalta 9. DVt prophylaxis lovenox
[2018-02-23] MEDS: Oxycodone/Acetaminophen 5/325 mg Tab PO PRN (16:42)
[2018-02-24] MEDS: Enoxaparin 40 mg Syringe SC SCH (08:53)
[2018-02-24] MEDS: Magnesium Oxide 400 mg Tab UD PO SCH ×2 (08:54→17:03)
[2018-02-24] MEDS: Pantoprazole 20 mg EC Tab PO SCH (08:55)
[2018-02-24] MEDS: Cefdinir 300 MG CAP PO SCH ×2 (08:55→17:03)
[2018-02-24] MEDS: Multivitamin With Minerals Tab PO SCH (08:56)
[2018-02-24] MEDS: Oxycodone/Acetaminophen 5/325 mg Tab PO PRN ×2 (09:04→17:02)
--- NOTE | 2018-02-24 18:18 | CP.PCM.CON ---
History of Present Illness - History of Present Illness History of Present Illness: Dr Washburn PMR consultation on Sabrina Dodge, born 1940 who has been admitted to [address] [place] [address] Well known to me for many years of multiple stays at [facility]. I have injected her knees and shoulders in the past. Most recently the knees She is complaining of knee pain again. She also has right 4th and 5th digit weakness with Papal sign. I have offered her a BOTOX injection which I will look into if this can be done while an inpatient given difficulty of travel for her once an outpatient. + Urinary incont. Doesn't feel ability to Kegel. gum remover and urology consults could be helpful. fair shoulder ROM with some stiffness. continue current care Past Patient History - Infectious Disease Hx of Infectious Diseases: None - Tetanus Immunizations Tetanus Immunization: Unknown - Past Medical History & Family History Past Medical History?: Yes - Past Social History Smoking Status: Never Smoked - CARDIAC Hx Cardiac Disorders: Yes (htn) - PULMONARY Hx Respiratory Disorders: Yes (copd,pna) - NEUROLOGICAL Hx Neurological Disorder: No - HEENT Hx HEENT Problems: No - RENAL Hx Chronic Kidney Disease: No - ENDOCRINE/METABOLIC Hx Endocrine Disorders: No - HEMATOLOGICAL/ONCOLOGICAL Hx Blood Disorders: Yes - INTEGUMENTARY Hx Dermatological Problems: No - MUSCULOSKELETAL/RHEUMATOLOGICAL Hx Musculoskeletal Disorders: Yes (osteoporosis,fibromyalgia) Hx Falls: No - GASTROINTESTINAL Hx Gastritis: Yes Hx Pancreatitis: Yes - GENITOURINARY/GYNECOLOGICAL Hx Genitourinary Disorders: No - PSYCHIATRIC Hx Psychophysiologic Disorder: Yes (anx,dep) Hx Substance Use: No - SURGICAL HISTORY Hx Appendectomy: Yes Hx Carotid Endarterectomy: Yes Hx Cholecystectomy: Yes - ANESTHESIA Hx Anesthesia: Yes Hx Anesthesia Reactions: No Hx Malignant Hyperthermia: No Meds Allergies/Adverse Reactions: Allergies Allergy/AdvReac Type Severity Reaction Status Date / Time Penicillins Allergy RASH Verified 02/15/18 16:25 - Medications Medications: Current Medications Acetaminophen (Tylenol 325mg Tab) 650 mg PO Q6 PRN PRN Reason: Pain, Mild (1-3) Last Admin: 02/23/18 14:31 Dose: 650 mg Alprazolam (Xanax) 1 mg PO Q6 PRN PRN Reason: Anxiety Last Admin: 02/23/18 21:17 Dose: 1 mg Amlodipine Besylate (Norvasc) 5 mg PO DAILY [facility] Last Admin: 02/24/18 08:55 Dose: 5 mg Ascorbic Acid (Vitamin C 500 Mg Tab) 500 mg PO DAILY [facility] Last Admin: 02/24/18 08:56 Dose: 500 mg Aspirin (Ecotrin) 81 mg PO DAILY [facility] Last Admin: 02/24/18 08:56 Dose: 81 mg Docusate Sodium (Colace) 100 mg PO TID PRN PRN Reason: Constipation Last Admin: 02/23/18 08:11 Dose: 100 mg Duloxetine HCl (Cymbalta) 60 mg PO [facility] Last Admin: 02/23/18 21:13 Dose: 60 mg Enoxaparin Sodium (Lovenox) 40 mg SC DAILY [facility]; Protocol Last Admin: 02/24/18 08:53 Dose: 40 mg Gabapentin (Neurontin) 300 mg PO DAILY [facility] Last Admin: 02/24/18 08:55 Dose: 300 mg Lactulose (Enulose) 20 gm PO Q8 PRN PRN Reason: Constipation Last Admin: 02/23/18 16:44 Dose: 20 gm Loratadine (Claritin) 10 mg PO DAILY [facility] Last Admin: 02/24/18 08:56 Dose: 10 mg Losartan Potassium (Cozaar) 100 mg PO DAILY [facility] Last Admin: 02/24/18 08:54 Dose: 100 mg Magnesium Oxide (Mag-Ox) 400 mg PO BID [facility] Last Admin: 02/24/18 17:03 Dose: 400 mg Metoprolol Tartrate (Lopressor) 12.5 mg PO Q12 [facility] Last Admin: 02/24/18 08:53 Dose: 12.5 mg Multivitamins/Minerals (Therapeutic-M Tab) 1 tab PO DAILY [facility] Last Admin: 02/24/18 08:56 Dose: 1 tab Ondansetron HCl (Zofran Tab) 4 mg PO Q8 PRN PRN Reason: Nausea/Vomiting Last Admin: 02/21/18 18:55 Dose: 4 mg Oxybutynin Chloride (Ditropan Tab) 5 mg PO TID [facility] Last Admin: 02/24/18 17:03 Dose: 5 mg Oxycodone/Acetaminophen (Percocet 5/325 Mg Tab) 1 tab PO Q6 PRN PRN Reason: Pain, moderate (4-7) Stop: 02/26/18 16:26 Last Admin: 02/24/18 17:02 Dose: 1 tab Pantoprazole Sodium (Protonix Ec Tab) 20 mg PO DAILY [facility] Last Admin: 02/24/18 08:55 Dose: 20 mg Sennosides (Senokot Tab) 8.6 mg PO BID PRN PRN Reason: Constipation Last Admin: 02/24/18 17:36 Dose: 8.6 mg Simethicone (Mylicon Chew Tab) 80 mg PO Q6 PRN PRN Reason: Gas relief Last Admin: 02/21/18 17:01 Dose: 80 mg Trazodone HCl (Desyrel) 50 mg PO HS [facility] Last Admin: 02/23/18 21:13 Dose: 50 mg Results - Vital Signs Recent Vital Signs: Last Vital Signs Temp 98.4 F 02/24/18 15:29 Pulse 69 02/24/18 15:29 Resp 20 02/24/18 15:29 BP 105/64 02/24/18 15:29 Pulse Ox 93 L 02/24/18 15:29 - Labs Result Diagrams: 02/16/18 06:10 02/16/18 06:10
[2018-02-25] MEDS: Enoxaparin 40 mg Syringe SC SCH (08:30)
[2018-02-25] MEDS: Magnesium Oxide 400 mg Tab UD PO SCH ×2 (08:33→16:19)
[2018-02-25] MEDS: Pantoprazole 20 mg EC Tab PO SCH (08:34)
[2018-02-25] MEDS: Oxycodone/Acetaminophen 5/325 mg Tab PO PRN (13:41)
[2018-02-25] MEDS: Multivitamin With Minerals Tab PO SCH ×2 (13:43→16:24)
[2018-02-25 16:25] VITALS: RESP 20
--- NOTE | 2018-02-25 17:14 | CP.PCM.PN ---
Subjective - Date & Time of Evaluation Date of Evaluation: 02/25/18 Time of Evaluation: 15:00 - Subjective Subjective: Patient seen and examined. Denied any complaint Objective - Vital Signs/Intake and Output Vital Signs (last 24 hours): Temp Pulse Resp BP Pulse Ox 98.2 F 67 20 116/62 94 L 02/25/18 16:24 02/25/18 16:24 02/25/18 16:24 02/25/18 16:24 02/25/18 16:24 - Medications Medications: Current Medications Acetaminophen (Tylenol 325mg Tab) 650 mg PO Q6 PRN PRN Reason: Pain, Mild (1-3) Last Admin: 02/23/18 14:31 Dose: 650 mg Alprazolam (Xanax) 1 mg PO Q6 PRN PRN Reason: Anxiety Last Admin: 02/25/18 08:30 Dose: 1 mg Amlodipine Besylate (Norvasc) 5 mg PO DAILY [facility] Last Admin: 02/25/18 08:31 Dose: 5 mg Ascorbic Acid (Vitamin C 500 Mg Tab) 500 mg PO DAILY [facility] Last Admin: 02/25/18 08:32 Dose: 500 mg Aspirin (Ecotrin) 81 mg PO DAILY [facility] Last Admin: 02/25/18 08:31 Dose: 81 mg Docusate Sodium (Colace) 100 mg PO TID PRN PRN Reason: Constipation Last Admin: 02/25/18 08:30 Dose: 100 mg Duloxetine HCl (Cymbalta) 60 mg PO HS [facility] Last Admin: 02/24/18 21:09 Dose: 60 mg Enoxaparin Sodium (Lovenox) 40 mg SC DAILY [facility]; Protocol Last Admin: 02/25/18 08:30 Dose: 40 mg Gabapentin (Neurontin) 300 mg PO DAILY [facility] Last Admin: 02/25/18 08:34 Dose: 300 mg Lactulose (Enulose) 20 gm PO Q8 PRN PRN Reason: Constipation Last Admin: 02/23/18 16:44 Dose: 20 gm Loratadine (Claritin) 10 mg PO DAILY [facility] Last Admin: 02/25/18 08:31 Dose: 10 mg Losartan Potassium (Cozaar) 100 mg PO DAILY [facility] Last Admin: 02/25/18 08:32 Dose: 100 mg Magnesium Oxide (Mag-Ox) 400 mg PO BID [facility] Last Admin: 02/25/18 16:19 Dose: 400 mg Metoprolol Tartrate (Lopressor) 12.5 mg PO Q12 [facility] Last Admin: 02/25/18 08:33 Dose: 12.5 mg Multivitamins/Minerals (Therapeutic-M Tab) 1 tab PO DAILY [facility] Last Admin: 02/25/18 16:24 Dose: 1 tab Ondansetron HCl (Zofran Tab) 4 mg PO Q8 PRN PRN Reason: Nausea/Vomiting Last Admin: 02/21/18 18:55 Dose: 4 mg Oxybutynin Chloride (Ditropan Tab) 5 mg PO TID [facility] Last Admin: 02/25/18 16:20 Dose: 5 mg Oxycodone/Acetaminophen (Percocet 5/325 Mg Tab) 1 tab PO Q6 PRN PRN Reason: Pain, moderate (4-7) Stop: 02/26/18 16:26 Last Admin: 02/25/18 13:41 Dose: 1 tab Pantoprazole Sodium (Protonix Ec Tab) 20 mg PO DAILY [facility] Last Admin: 02/25/18 08:34 Dose: 20 mg Sennosides (Senokot Tab) 8.6 mg PO BID PRN PRN Reason: Constipation Last Admin: 02/24/18 17:36 Dose: 8.6 mg Simethicone (Mylicon Chew Tab) 80 mg PO Q6 PRN PRN Reason: Gas relief Last Admin: 02/21/18 17:01 Dose: 80 mg Trazodone HCl (Desyrel) 50 mg PO HS [facility] Last Admin: 02/24/18 21:08 Dose: 50 mg - Labs Labs: 02/16/18 06:10 02/16/18 06:10 - Constitutional Appears: No Acute Distress - Head Exam Head Exam: ATRAUMATIC - Eye Exam Eye Exam: absent: Scleral icterus - ENT Exam ENT Exam: Mucous Membranes Moist - Neck Exam Neck Exam: absent: Meningismus - Respiratory Exam Respiratory Exam: absent: Rales, Rhonchi, Wheezes, Respiratory Distress - Cardiovascular Exam Cardiovascular Exam: REGULAR RHYTHM, +S1, +S2 - GI/Abdominal Exam GI & Abdominal Exam: Soft. absent: Tenderness - Rectal Exam Rectal Exam: Deferred - Neurological Exam Neurological Exam: Alert, Oriented x3 - Psychiatric Exam Psychiatric exam: Normal Affect - Skin Skin Exam: Dry, Intact Assessment and Plan - Assessment and Plan (Free Text) Assessment: 77 yo female with PMH of anxiety with chronic benzo and opioid use, A flutter, chronic pancreatitis, ampullary diverticulum, status-post PTC tube placement (October 2016) and HTN, admitted for UTI (cx positive for E.coli sensitive to Rocephin) and admitted to TCU for PT and continued IV antibiotics. 1. UTI Afebrile Leukocytosis resolved Urine culture (02/11): E.Coli resistant to Ciprofloxacin, sensitive to Rocephin completed 7 days IV Cefepime urinalysis still showed ongoing UTI 2. Sepsis resolved Blood culture (02/12) had no growth 3. Chronic Pancreatitis continue Pain management 4. Generalized weakness continue PT 5. HTN BP controlled Home meds resumed 6. Constipation Colace/ Lactulose Senokot 7. Anxiety Depressive Disorder - Home meds resumed
--- NOTE | 2018-02-25 18:58 | CP.PCM.PN ---
Subjective - Date & Time of Evaluation Date of Evaluation: 02/25/18 Time of Evaluation: 18:57 - Subjective Subjective: Patient seen in the room doing ok denies sob/cp BOTOX is not formulary and I have discussed with her having this done in my office as an outpatient continue current care Objective - Vital Signs/Intake and Output Vital Signs (last 24 hours): Temp Pulse Resp BP Pulse Ox 98.2 F 67 20 116/62 94 L 02/25/18 16:24 02/25/18 16:24 02/25/18 16:24 02/25/18 16:24 02/25/18 16:24 - Medications Medications: Current Medications Acetaminophen (Tylenol 325mg Tab) 650 mg PO Q6 PRN PRN Reason: Pain, Mild (1-3) Last Admin: 02/23/18 14:31 Dose: 650 mg Alprazolam (Xanax) 1 mg PO Q6 PRN PRN Reason: Anxiety Last Admin: 02/25/18 08:30 Dose: 1 mg Amlodipine Besylate (Norvasc) 5 mg PO DAILY [facility] Last Admin: 02/25/18 08:31 Dose: 5 mg Ascorbic Acid (Vitamin C 500 Mg Tab) 500 mg PO DAILY [facility] Last Admin: 02/25/18 08:32 Dose: 500 mg Aspirin (Ecotrin) 81 mg PO DAILY [facility] Last Admin: 02/25/18 08:31 Dose: 81 mg Docusate Sodium (Colace) 100 mg PO TID PRN PRN Reason: Constipation Last Admin: 02/25/18 08:30 Dose: 100 mg Duloxetine HCl (Cymbalta) 60 mg PO HS [facility] Last Admin: 02/24/18 21:09 Dose: 60 mg Enoxaparin Sodium (Lovenox) 40 mg SC DAILY [facility]; Protocol Last Admin: 02/25/18 08:30 Dose: 40 mg Gabapentin (Neurontin) 300 mg PO DAILY [facility] Last Admin: 02/25/18 08:34 Dose: 300 mg Lactulose (Enulose) 20 gm PO Q8 PRN PRN Reason: Constipation Last Admin: 02/23/18 16:44 Dose: 20 gm Loratadine (Claritin) 10 mg PO DAILY [facility] Last Admin: 02/25/18 08:31 Dose: 10 mg Losartan Potassium (Cozaar) 100 mg PO DAILY [facility] Last Admin: 02/25/18 08:32 Dose: 100 mg Magnesium Oxide (Mag-Ox) 400 mg PO BID [facility] Last Admin: 02/25/18 16:19 Dose: 400 mg Metoprolol Tartrate (Lopressor) 12.5 mg PO Q12 [facility] Last Admin: 02/25/18 08:33 Dose: 12.5 mg Multivitamins/Minerals (Therapeutic-M Tab) 1 tab PO DAILY [facility] Last Admin: 02/25/18 16:24 Dose: 1 tab Ondansetron HCl (Zofran Tab) 4 mg PO Q8 PRN PRN Reason: Nausea/Vomiting Last Admin: 02/21/18 18:55 Dose: 4 mg Oxybutynin Chloride (Ditropan Tab) 5 mg PO TID [facility] Last Admin: 02/25/18 16:20 Dose: 5 mg Oxycodone/Acetaminophen (Percocet 5/325 Mg Tab) 1 tab PO Q6 PRN PRN Reason: Pain, moderate (4-7) Stop: 02/26/18 16:26 Last Admin: 02/25/18 13:41 Dose: 1 tab Pantoprazole Sodium (Protonix Ec Tab) 20 mg PO DAILY [facility] Last Admin: 02/25/18 08:34 Dose: 20 mg Sennosides (Senokot Tab) 8.6 mg PO BID PRN PRN Reason: Constipation Last Admin: 02/24/18 17:36 Dose: 8.6 mg Simethicone (Mylicon Chew Tab) 80 mg PO Q6 PRN PRN Reason: Gas relief Last Admin: 02/21/18 17:01 Dose: 80 mg Trazodone HCl (Desyrel) 50 mg PO HS [facility] Last Admin: 02/24/18 21:08 Dose: 50 mg - Labs Labs: 02/16/18 06:10 02/16/18 06:10
[2018-02-26 08:34] LABS: SQUAMOUS EPITHIAL < 1 /hpf (0-5); URINE BACTERIA RARE (<OCC); URINE BILIRUBIN NEGATIVE (NEGATIVE); URINE BLOOD NEGATIVE (NEGATIVE); URINE CLARITY SLIGHTY-CLOUDY (Clear); URINE COLOR YELLOW (YELLOW); URINE GLUCOSE (UA) NEG (NEGATIVE); URINE LEUKOCYTE ESTERASE MOD Leu/uL (Negative); URINE PROTEIN NEGATIVE (NEGATIVE); URINE UROBILINOGEN 0.2-1.0 mg/dL (0.2-1.0)
[2018-02-26] MEDS: Enoxaparin 40 mg Syringe SC SCH (08:40)
[2018-02-26] MEDS: Magnesium Oxide 400 mg Tab UD PO SCH ×2 (08:40→17:08)
[2018-02-26] MEDS: Multivitamin With Minerals Tab PO SCH (08:40)
[2018-02-26] MEDS: Pantoprazole 20 mg EC Tab PO SCH (08:41)
[2018-02-26] MEDS: Oxycodone/Acetaminophen 5/325 mg Tab PO PRN (08:53)
[2018-02-26] MEDS ORDERED: Oxycodone/Acetaminophen 5/325 mg Tab PO PRN (14:20)
--- NOTE | 2018-02-26 16:58 | CP.PCM.PN ---
Subjective - Date & Time of Evaluation Date of Evaluation: 02/26/18 Time of Evaluation: 16:57 - Subjective Subjective: Patient seen in the room doing ok denies sob/cp discussed with her that my office is looking into BOTOX for spasticity for her and that I know she is to go home 02/28/18 but we will be in touch once we get authorization for her. Objective - Vital Signs/Intake and Output Vital Signs (last 24 hours): Temp Pulse Resp BP Pulse Ox 97.6 F 66 20 105/67 96 02/26/18 16:05 02/26/18 16:05 02/26/18 16:05 02/26/18 16:05 02/26/18 16:05 - Medications Medications: Current Medications Acetaminophen (Tylenol 325mg Tab) 650 mg PO Q6 PRN PRN Reason: Pain, Mild (1-3) Last Admin: 02/26/18 10:54 Dose: 650 mg Alprazolam (Xanax) 1 mg PO Q6 PRN PRN Reason: Anxiety Last Admin: 02/25/18 21:50 Dose: 1 mg Amlodipine Besylate (Norvasc) 5 mg PO DAILY [facility] Last Admin: 02/26/18 08:41 Dose: 5 mg Ascorbic Acid (Vitamin C 500 Mg Tab) 500 mg PO DAILY [facility] Last Admin: 02/26/18 14:09 Dose: 500 mg Aspirin (Ecotrin) 81 mg PO DAILY [facility] Last Admin: 02/26/18 08:39 Dose: 81 mg Docusate Sodium (Colace) 100 mg PO TID PRN PRN Reason: Constipation Last Admin: 02/25/18 08:30 Dose: 100 mg Duloxetine HCl (Cymbalta) 60 mg PO HS [facility] Last Admin: 02/25/18 21:15 Dose: 60 mg Enoxaparin Sodium (Lovenox) 40 mg SC DAILY [facility]; Protocol Last Admin: 02/26/18 08:40 Dose: 40 mg Gabapentin (Neurontin) 300 mg PO DAILY [facility] Last Admin: 02/26/18 08:40 Dose: 300 mg Lactulose (Enulose) 20 gm PO Q8 PRN PRN Reason: Constipation Last Admin: 02/23/18 16:44 Dose: 20 gm Loratadine (Claritin) 10 mg PO DAILY [facility] Last Admin: 02/26/18 08:39 Dose: 10 mg Losartan Potassium (Cozaar) 100 mg PO DAILY [facility] Last Admin: 02/26/18 08:39 Dose: 100 mg Magnesium Oxide (Mag-Ox) 400 mg PO BID [facility] Last Admin: 02/26/18 08:40 Dose: 400 mg Metoprolol Tartrate (Lopressor) 12.5 mg PO Q12 [facility] Last Admin: 02/26/18 08:40 Dose: 12.5 mg Multivitamins/Minerals (Therapeutic-M Tab) 1 tab PO DAILY [facility] Last Admin: 02/26/18 08:40 Dose: 1 tab Ondansetron HCl (Zofran Tab) 4 mg PO Q8 PRN PRN Reason: Nausea/Vomiting Last Admin: 02/21/18 18:55 Dose: 4 mg Oxybutynin Chloride (Ditropan Tab) 5 mg PO TID [facility] Last Admin: 02/26/18 14:10 Dose: 5 mg Oxycodone/Acetaminophen (Percocet 5/325 Mg Tab) 1 tab PO Q6 PRN PRN Reason: Pain, moderate (4-7) Stop: 03/01/18 14:21 Pantoprazole Sodium (Protonix Ec Tab) 20 mg PO DAILY [facility] Last Admin: 02/26/18 08:41 Dose: 20 mg Sennosides (Senokot Tab) 8.6 mg PO BID PRN PRN Reason: Constipation Last Admin: 02/24/18 17:36 Dose: 8.6 mg Simethicone (Mylicon Chew Tab) 80 mg PO Q6 PRN PRN Reason: Gas relief Last Admin: 02/21/18 17:01 Dose: 80 mg Trazodone HCl (Desyrel) 50 mg PO HS [facility] Last Admin: 02/25/18 21:15 Dose: 50 mg - Labs Labs: 02/16/18 06:10 02/16/18 06:10
[2018-02-27] MEDS: Oxycodone/Acetaminophen 5/325 mg Tab PO PRN ×2 (06:27→14:32)
[2018-02-27] MEDS: Enoxaparin 40 mg Syringe SC SCH (08:49)
[2018-02-27] MEDS: Magnesium Oxide 400 mg Tab UD PO SCH ×2 (08:51→16:41)
[2018-02-27] MEDS: Pantoprazole 20 mg EC Tab PO SCH (08:52)
[2018-02-27] MEDS: Multivitamin With Minerals Tab PO SCH (08:52)
[2018-02-28] MEDS: Oxycodone/Acetaminophen 5/325 mg Tab PO PRN (08:13)
[2018-02-28] MEDS: Enoxaparin 40 mg Syringe SC SCH (08:13)
[2018-02-28] MEDS: Magnesium Oxide 400 mg Tab UD PO SCH (08:14)
[2018-02-28] MEDS: Pantoprazole 20 mg EC Tab PO SCH (08:15)
[2018-02-28] MEDS: Multivitamin With Minerals Tab PO SCH (08:19)
[2018-02-28 08:20] VITALS: PULSE 66
[2018-02-28 09:15] VITALS: BP 132/79; TEMP 98.4; O2SAT 96
--- NOTE | 2018-02-28 09:45 | CP.PCM.DIS ---
Provider - Provider Date of Admission: 02/15/18 18:56 Attending physician: Radha Ken DO Primary care physician: physiatry consult Consults: 02/16/18 02:33 Wound Care [Nursing Referral for Wound Care] Routine Comment: heels Physician Instructions: Reason For Exam: evaluate redness on r abdominal fold, buttocks and 02/16/18 02:36 Social Work Referral Routine Comment: pt has theater manager 5hrs/7days/wk Physician Instructions: Reason For Exam: evaluate d/c needs 02/23/18 16:24 Physiatry Consult Routine Comment: Consulting Provider: Marco Antonio Washburn Consulting Physician: Marco Antonio Washburn Reason for Consult: please evaluate Time Spent in preparation of Discharge (in minutes): 20 Hospital Course - Lab Results Lab Results: Micro Results 02/26/18 06:50 Urine,Catheterized Urine Culture - Final Enterococcus Faecalis Most Recent Lab Values WBC 7.4 K/uL (4.8-10.8) 02/16/18 06:10 RBC 3.63 Mil/uL (3.80-5.20) L 02/16/18 06:10 Hgb 11.2 g/dL (12.0-16.0) L 02/16/18 06:10 Hct 34.1 % (34.0-47.0) 02/16/18 06:10 MCV 93.8 fl (81.0-99.0) 02/16/18 06:10 MCH 30.9 pg (27.0-31.0) 02/16/18 06:10 MCHC 33.0 g/dL (33.0-37.0) 02/16/18 06:10 RDW 13.6 % (11.5-14.5) 02/16/18 06:10 Plt Count 376 K/uL (130-400) 02/16/18 06:10 Sodium 140 mmol/l (132-148) 02/16/18 06:10 Potassium 4.5 MMOL/L (3.6-5.0) 02/16/18 06:10 Chloride 103 mmol/L (98-107) 02/16/18 06:10 Carbon Dioxide 29 mmol/L (22-30) 02/16/18 06:10 Anion Gap 13 (10-20) 02/16/18 06:10 BUN 24 mg/dl (7-17) H 02/16/18 06:10 Creatinine 0.9 mg/dl (0.7-1.2) 02/16/18 06:10 Est GFR ( Amer) > 60 02/16/18 06:10 Est GFR (Non-Af Amer) > 60 02/16/18 06:10 Random Glucose 112 mg/dL (65-105) H 02/16/18 06:10 Calcium 8.9 mg/dL (8.4-10.2) 02/16/18 06:10 Urine Color Yellow (YELLOW) 02/26/18 06:50 Urine Clarity Slighty-cloudy (Clear) 02/26/18 06:50 Urine pH 7.0 (5.0-8.0) 02/26/18 06:50 Ur Specific [place] 1.015 (1.003-1.030) 02/26/18 06:50 Urine Protein Negative mg/dL (NEGATIVE) 02/26/18 06:50 Urine Glucose (UA) Neg mg/dL (NEGATIVE) 02/26/18 06:50 Urine Ketones Negative mg/dL (NEGATIVE) 02/26/18 06:50 Urine Blood Negative (NEGATIVE) 02/26/18 06:50 Urine Nitrate Negative (NEGATIVE) 02/26/18 06:50 Urine Bilirubin Negative (NEGATIVE) 02/26/18 06:50 Urine Urobilinogen 0.2-1.0 mg/dL (0.2-1.0) 02/26/18 06:50 Ur Leukocyte Esterase Mod Marco A/uL (Negative) 02/26/18 06:50 Urine RBC (Auto) 8 /hpf (0-3) H 02/26/18 06:50 Urine Microscopic WBC 48 /hpf (0-5) H 02/26/18 06:50 Ur Squamous Epith Cells < 1 /hpf (0-5) 02/26/18 06:50 Urine Bacteria Rare (<OCC) 02/26/18 06:50 - Hospital Course Hospital Course: 77 yo female with PMH of anxiety with chronic benzo and opioid use, A flutter, chronic pancreatitis, ampullary diverticulum, 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 clinically patient is doing well, participated with PT. complained of frequent urination and her Oxybutinin was increased to TID At present hemodynamically stable. Will discharge home with follow up with Her PMD 1. UTI Urine culture (02/11): E.Coli sensitive to Rocephin received omnicef 2. Overactive bladder Increased oxybutinin 5 mg from once daily to TID 3. Sepsis resolved 4. Chronic Pancreatitis continue Pain management 5. Generalized weakness continue PT 6. HTN controlled on Norvasc , Losartan and Metoprolol 7. Constipation on Colace/ Lactulose and Senokot 8. Anxiety Depressive Disorder on Trazodone and Cymbalta 9. DVt prophylaxis received lovenox in patient Discharge Exam - Head Exam Head Exam: ATRAUMATIC, NORMOCEPHALIC - Eye Exam Eye Exam: EOMI, PERRL Pupil Exam: NORMAL ACCOMODATION - ENT Exam ENT Exam: Mucous Membranes Moist, Normal Exam - Neck Exam Neck exam: Full Rom, Normal Inspection - Respiratory Exam Respiratory Exam: Clear to PA & Lateral, NORMAL BREATHING PATTERN. absent: Rales, Rhonchi, Wheezes, Respiratory Distress - Cardiovascular Exam Cardiovascular Exam: REGULAR RHYTHM. absent: JVD - GI/Abdominal Exam GI & Abdominal Exam: Normal Bowel Sounds, Soft. absent: Distended, Guarding, Rebound, Tenderness - Rectal Exam Rectal Exam: Deferred - Extremities Exam Extremities exam: normal inspection, pedal pulses present - Back Exam Back exam: NORMAL INSPECTION - Neurological Exam Neurological exam: Alert, CN II-XII Intact - Psychiatric Exam Psychiatric exam: Flat Affect - Skin Skin Exam: Dry, Intact, Normal Color, Warm Discharge Plan - Discharge Medications Prescriptions: ALPRAZolam [Xanax] 1 mg PO Q6 PRN #20 tab PRN Reason: Anxiety amLODIPine [Norvasc] 5 mg PO DAILY #30 tab Ascorbic Acid [Vitamin C 500 mg Tab] 500 mg PO DAILY #30 tab Aspirin [Ecotrin] 81 mg PO DAILY #30 tabec Cetirizine HCl [All Day Allergy Relief] 10 mg PO DAILY #30 tablet Docusate [Colace] 100 mg PO TID PRN #30 cap PRN Reason: Constipation DULoxetine [Cymbalta] 60 mg PO HS #30 ecc Ergocalciferol [Drisdol 50,000 Intl Units Cap] 1 cap PO Q7D #4 cap Esomeprazole Magnesium [Nexium] 20 mg PO DAILY #30 capsule. Gabapentin [Neurontin] 300 mg PO DAILY #30 cap Irbesartan 300 mg PO DAILY #30 tablet Lubiprostone [Amitiza] 24 mcg PO DAILY #30 capsule Magnesium Oxide [Mag-Ox] 400 mg PO BID #60 tab Metoprolol Tartrate [Lopressor] 12.5 mg PO Q12 #60 tab Multivitamin [Multi-Vitamin Daily] 1 tab PO DAILY #30 tablet Oxybutynin [Ditropan Tab] 5 mg PO TID #90 tab oxyCODONE/Acetaminophen [Percocet 5/325 mg Tab] 1 tab PO Q6 PRN #30 tab PRN Reason: Pain, Severe (8-10) Sennosides [Senna] 8.6 mg PO BID PRN #60 tablet PRN Reason: Constipation Simethicone [Mylicon Chew Tab] 80 mg PO Q6 PRN #30 chew PRN Reason: Gas relief traZODone [Desyrel] 50 mg PO HS #30 tab - Follow Up Plan Condition: GOOD Disposition: HOME/ ROUTINE Patient education suggested?: Yes Referrals: Eduarda Guan MD [Family Provider] -
== END 2018-02-28 14:55 | disposition home or self-care (01) | DRG 872 ==
LOC: H.TCU 18:56
PROVIDERS: ADMIT Student in an Organized Health Care Education/Training Program; ATTEND Student in an Organized Health Care Education/Training Program
DX: A41.9 Sepsis, unspecified organism (principal); K86.1 Other chronic pancreatitis; N39.0 Urinary tract infection, site not specified; F32.9 Major depressive disorder, single episode, unspecified; F41.9 Anxiety disorder, unspecified; I10 Essential (primary) hypertension; J44.9 Chronic obstructive pulmonary disease, unspecified; K59.00 Constipation, unspecified; M79.7 Fibromyalgia; M81.0 Age-related osteoporosis without current pathological fracture; N32.81 Overactive bladder; R32 Unspecified urinary incontinence; Z16.23 Resistance to quinolones and fluoroquinolones; Z90.49 Acquired absence of other specified parts of digestive tract; Z87.01 Personal history of pneumonia (recurrent); K29.70 Gastritis, unspecified, without bleeding; M25.562 Pain in left knee; M25.561 Pain in right knee

== ENCOUNTER 2018-04-18 20:07 | Inpatient (IN) | payer MEDICARE, MEDICAID ==
[2018-04-18 20:07] VITALS: BMI 31.0
[2018-04-18] MEDS ORDERED: Morphine 4 MG/ML VIAL IVP ONE (20:56)
[2018-04-18] MEDS ORDERED: Sodium Chloride 0.9% 1,000 ML IV ONE (20:59)
[2018-04-18] MEDS ORDERED: Morphine 4 MG/ML VIAL ONE (21:50)
[2018-04-18 22:28] LABS: BASO % 0.2 % (0.0-2.0); EOS % 0.2 % (0.0-4.0); HEMOGLOBIN 12.8 g/dL (12.0-16.0); LYMPH # 0.8 K/uL (1.0-4.3); MEAN CELL VOLUME 92.3 fl (81.0-99.0); MEAN CORPUSCULAR HEMOGLOBIN 29.7 pg (27.0-31.0); MEAN CORPUSCULAR HGB CONC 32.1 g/dL (33.0-37.0); MEAN PLATELET VOLUME 7.7 fl (7.2-11.7); MONO # 1.3 K/uL (0.0-0.8); MONO % 6.9 % (0.0-10.0); NEUT # 16.6 K/uL (1.8-7.0); NEUT % 88.7 % (50.0-75.0); PLATELET COUNT 347 K/uL (130-400); RBC 4.32 Mil/uL (3.80-5.20); RED CELL DISTRIBUTION WIDTH 13.7 % (11.5-14.5); WHITE BLOOD COUNT 18.7 K/uL (4.8-10.8)
[2018-04-18 22:35] LABS: SQUAMOUS EPITHIAL 2 /hpf (0-5); URINE BACTERIA RARE (<OCC); URINE BILIRUBIN NEGATIVE (NEGATIVE); URINE BLOOD MODERATE (NEGATIVE); URINE CLARITY SLIGHTY-CLOUDY (Clear); URINE COLOR STRAW (YELLOW); URINE GLUCOSE (UA) 50 mg/dL (NEGATIVE); URINE LEUKOCYTE ESTERASE MOD Leu/uL (Negative); URINE PROTEIN 30 mg/dL (NEGATIVE); URINE UROBILINOGEN 0.2-1.0 mg/dL (0.2-1.0)
[2018-04-18 22:38] LABS: ALB/GLOB RATIO 0.9 (1.0-2.1); ALBUMIN 4.4 g/dL (3.5-5.0); CALCIUM 9.4 mg/dL (8.4-10.2)
[2018-04-18] MEDS ORDERED: cefTRIAXone (Rocephin) 1 gm Inj ONE (23:00)
[2018-04-18] MEDS ORDERED: Sodium Chloride 0.9% 3,000 ML IV ONE (23:41)
--- NOTE | 2018-04-19 00:05 | ED PDOC ---
HPI: Back Time Seen by Provider: 04/18/18 20:32 Chief Complaint (Nursing): Back Pain Chief Complaint (Provider): Pyelonephritis History Per: Patient History/Exam Limitations: no limitations Onset/Duration Of Symptoms: Days (two) Current Symptoms Are (Timing): Still Present Quality Of Discomfort: Pressure (Pt presents to the ED complaining of two to three days of right sided back pain accompanied with urinary symptoms of hesitation and urgency. Pt has a history of urosepsis with several admissions in the past ), "Pain" Past Medical History Reviewed: Historical Data, Nursing Documentation, Vital Signs Vital Signs: Last Vital Signs Temp 98.3 F 04/18/18 20:17 Pulse 93 H 04/18/18 20:17 Resp 21 04/18/18 20:17 BP 176/91 H 04/18/18 20:17 Pulse Ox 93 L 04/18/18 20:17 - Medical History PMH: Anxiety, Arthritis, Bronchitis, Cardia Arrhythmia, Colonic Polyps, COPD, Depression, Fibromyalgia, Fractures, Gastritis, GERD, HTN, Osteoporosis, Pa ncreatitis, Peripheral Edema, Pneumonia, Chronic Pain (bilateral LE) Denies: Anemia, Diabetes, Hepatitis, HIV, Chronic Kidney Disease, Sexually Transmitted Disease - Surgical History Surgical History: Appendectomy, Carotid Endarterectomy, Cholecystectomy, Endo scopy Denies: Pacemaker - Family History Family History: States: Unknown Family Hx - Immunization History Hx Tetanus Toxoid Vaccination: No Hx Influenza Vaccination: No Hx Pneumococcal Vaccination: No - Home Medications Home Medications: Ambulatory Orders Medication Instructions Recorded ALPRAZolam [Xanax] 1 mg PO Q6 PRN #20 tab 02/28/18 Ascorbic Acid [Vitamin C 500 mg 500 mg PO DAILY #30 tab 02/28/18 Tab] Aspirin [Ecotrin] 81 mg PO DAILY #30 tabec 02/28/18 Cetirizine HCl [All Day Allergy 10 mg PO DAILY #30 tablet 02/28/18 Relief] DULoxetine [Cymbalta] 60 mg PO HS #30 ecc 02/28/18 Docusate [Colace] 100 mg PO TID PRN #30 cap 02/28/18 Ergocalciferol [Drisdol 50,000 1 cap PO Q7D #4 cap 02/28/18 Intl Units Cap] Esomeprazole Magnesium [Nexium] 20 mg PO DAILY #30 capsule. 02/28/18 Gabapentin [Neurontin] 300 mg PO DAILY #30 cap 02/28/18 Irbesartan 300 mg PO DAILY #30 tablet 02/28/18 Lubiprostone [Amitiza] 24 mcg PO DAILY #30 capsule 02/28/18 Magnesium Oxide [Mag-Ox] 400 mg PO BID #60 tab 02/28/18 Metoprolol Tartrate [Lopressor] 12.5 mg PO Q12 #60 tab 02/28/18 Multivitamin [Multi-Vitamin Daily] 1 tab PO DAILY #30 tablet 02/28/18 Nitrofurantoin Macrocrystals 100 mg PO BID 02/28/18 [Macrobid] Oxybutynin [Ditropan Tab] 5 mg PO TID #90 tab 02/28/18 Sennosides [Senna] 8.6 mg PO BID PRN #60 tablet 02/28/18 Simethicone [Mylicon Chew Tab] 80 mg PO Q6 PRN #30 chew 02/28/18 amLODIPine [Norvasc] 5 mg PO DAILY #30 tab 02/28/18 oxyCODONE/Acetaminophen [Percocet 1 tab PO Q6 PRN #30 tab 02/28/18 5/325 mg Tab] traZODone [Desyrel] 50 mg PO HS #30 tab 02/28/18 - Allergies Allergies/Adverse Reactions: Allergies Allergy/AdvReac Type Severity Reaction Status Date / Time Penicillins Allergy RASH Verified 02/15/18 16:25 Review of Systems ROS Statement: Except As Marked, All Systems Reviewed And Found Negative Constitutional: Positive for: Chills Genitourinary Female: Positive for: Dysuria, Frequency. Negative for: Hematuria Musculoskeletal: Positive for: Back Pain Physical Exam - Reviewed Nursing Documentation Reviewed: Yes Vital Signs Reviewed: Yes - Physical Exam Appears: Positive for: Well, Non-toxic Head Exam: Positive for: ATRAUMATIC, NORMAL INSPECTION Skin: Positive for: Normal Color, Warm, Dry. Negative for: Diaphoresis, Pallor, Rash Eye Exam: Positive for: Normal appearance, PERRL. Negative for: Nystagmus, Periorbital swelling, Periorbital tenderness Neck: Positive for: Normal, Painless ROM, Supple Cardiovascular/Chest: Positive for: Regular Rate, Rhythm, Chest Non Tender. Negative for: Edema Respiratory: Positive for: Normal Breath Sounds, Rales (bilateral ). Negative for: Accessory Muscle Use, Stridor, Wheezing, Respiratory Distress Pulses-Carotid (L): 2+ Pulses-Carotid (R): 2+ Pulses-Radial (L): 2+ Pulses-Radial (R): 2+ Gastrointestinal/Abdominal: Positive for: Normal Exam Back: Positive for: Normal Inspection, R CVA Tenderness. Negative for: L CVA Tenderness, Vertebral Tenderness, Muscle Spasm Extremity: Positive for: Pedal Edema, Swelling. Negative for: Calf Tenderness - Laboratory Results Result Diagrams: 04/18/18 21:40 04/18/18 21:40 Lab Results: Total Bilirubin 0.5 mg/dl (0.2-1.3) 04/18/18 21:40 AST 27 U/L (14-36) 04/18/18 21:40 ALT 12 U/L (9-52) 04/18/18 21:40 Alkaline Phosphatase 128 U/L (38-126) H D 04/18/18 21:40 Total Protein 9.3 G/DL (6.3-8.2) H 04/18/18 21:40 Albumin 4.4 g/dL (3.5-5.0) 04/18/18 21:40 Globulin 4.8 gm/dL (2.2-3.9) H 04/18/18 21:40 Albumin/Globulin Ratio 0.9 (1.0-2.1) L 04/18/18 21:40 Urine Color Straw (YELLOW) 04/18/18 22:04 Urine Clarity Slighty-cloudy (Clear) 04/18/18 22:04 Urine pH 7.0 (5.0-8.0) 04/18/18 22:04 Ur Specific [place] 1.010 (1.003-1.030) 04/18/18 22:04 Urine Protein 30 mg/dL (NEGATIVE) 04/18/18 22:04 Urine Glucose (UA) 50 mg/dL (NEGATIVE) 04/18/18 22:04 Urine Ketones Negative mg/dL (NEGATIVE) 04/18/18 22:04 Urine Blood Moderate (NEGATIVE) 04/18/18 22:04 Urine Nitrate Negative (NEGATIVE) 04/18/18 22:04 Urine Bilirubin Negative (NEGATIVE) 04/18/18 22:04 Urine Urobilinogen 0.2-1.0 mg/dL (0.2-1.0) 04/18/18 22:04 Ur Leukocyte Esterase Mod Marco A/uL (Negative) 04/18/18 22:04 Urine RBC (Auto) 56 /hpf (0-3) H 04/18/18 22:04 Urine Microscopic WBC 60 /hpf (0-5) H 04/18/18 22:04 Ur Squamous Epith Cells 2 /hpf (0-5) 04/18/18 22:04 Urine Bacteria Rare (<OCC) 04/18/18 22:04 - ECG O2 Sat by Pulse Oximetry: 93 Medical Decision Making Medical Decision Making: I: Urosepsis vs Pyelonephritits P: UA CBC CMP 0 - WBC of 18.1 reported; sepsis workup commenced 2331 - Lactic Acid of 4.2 reported 5- Code Sepsis Called at 2335 The patient was already on 1G of rocephin A CT-ABD was ordered BP stable EKG Ordered 4- Troponin ordered 5 pt temp 101.1F (afebrile on presentation) Increased fluid to 3000ml in hour ordered Discussed case with Hospitalist, Dr Cortes, the patient will be admitted with dx of urosepsis to med-surg Pt given 2 full liters of IV fluids and third liter changed to 75ml/hr titration based on pt's edematous lower extremities and mild bilateral rales 01:23 CT Abd Pelvis FINDINGS: Subsegmental atelectatic airspace disease in the right lower lobe, unchanged. Mild cardiomegaly, unchanged. Normal unenhanced liver. Distended gallbladder and nondilated extrahepatic biliary system. Normal unenhanced spleen. Normal pancreas. Normal bilateral adrenal glands. Interval appearance of bilateral perinephric fat stranding. Normal size of the right kidney. There is no right renal mass. There are nonob structing right renal calculi. Largest measuring 1.4 cm. Interval slippage of 7.3 mm obstructing stone of the right ureterovesical junction. There is interval appearance of mild right hydronephrosis. Mildly dilated visualized right ureter. Normal size of the left kidney. There is no left renal mass. There are multiple, unchanged nonobstructing left renal calculi. The largest stone is in the left renal pelvis extending to the level of the left ureteropelvic junction. Mild fullness of the left renal pelvis. There is unchanged mild left hydronephrosis. Unchanged diffuse thickening of the visualized left ureter. Unchanged small sliding hiatal hernia. Normal small intestine. Significant incre ase in the amount of fecal residue in the colon. The appendix is visualized and appears normal. There is no demonstrated peritoneal fluid. Normal abdominal aorta. Unchanged since 12 inferior vena cava. Normal retroperitoneum. Normal urinary bladder. There is no pelvic mass lesion or lymphadenopathy. There is no pelvic fluid. Normal abdominal wall. Moderate osteopenia. Moderate diffuse spondylosis. IMPRESSION: Interval appearance of significant distention of the gallbladder. Sonographic evaluation is suggested to exclude developing acute inflammatory pathology. Interval slippage of one of the previously noted right renal stones to the level of the right ureterovesical junction. Subsequent increase in the degree of right hydroureteronephrosis. Interval appearance of bilateral perinephric fat stranding which can be secondary to an ascending urinary tract infection. Correlation with creatinine level and urinalysis is suggested. Bilateral renal stones are noted. Significant increase in the amount of fecal residue in the large bowels with interval appearance of fecal impaction of the colon more prominent at the level of the rectosigmoid. No associated colitis or colonic perforation. 0135 - CT results reviewed and discussed with Hospitalist 0138 Urology Consult placed 0140 - 0.8mg flomax ordered 0142 - pt taken to floor Disposition - Clinical Impression Clinical Impression: Sepsis, Urinary tract infection - Patient ED Disposition Is Patient to be Admitted: Yes Discussed With : Edwin Cortes (MS ) Doctor Will See Patient In The: Hospital Counseled Patient/Family Regarding: Diagnosis - Disposition Disposition: Routine/Home Disposition Time: 01:30 Condition: FAIR - Pt Status Changed To: Hospital Disposition Of: Inpatient - Admit Certification Admit to Inpatient:: After my assessment, the patient will require hospitalization for at least two midnights. This is because of the severity of symptoms shown, intensity of services needed, and/or the medical risk in this patient being treated as an outpatient.
[2018-04-19 00:23] LABS: ANISOCYTOSIS SLIGHT; BANDS 1 % (0-2); EOSINOPHIL 1 % (0-7); LYMPHOCYTE 3 % (20-50); MONOCYTE 8 % (0-10); NEUTROPHIL 87 % (42-75); PLATELET ESTIMATE NORMAL (NORMAL); TEARDROP CELLS SLIGHT; TOTAL CELLS COUNTED 100
[2018-04-19 00:54] LABS: ALB/GLOB RATIO 0.9 (1.0-2.1); ALBUMIN 4.4 g/dL (3.5-5.0); BILIRUBIN,DIRECT 0.3 mg/ml (0.0-0.4)
[2018-04-19] MEDS ORDERED: Simethicone 80 mg Chewtab PO PRN (01:17)
[2018-04-19] MEDS: Sodium Chloride 0.9% 1,000 ML IV SCH ×2 (01:20→14:15)
--- NOTE | 2018-04-19 01:43 | CP.PCM.HP ---
History of Present Illness - History of Present Illness History of Present Illness: History obtained from patient and after review of medical records. Pt is a 77 y/o female with extensive medical history including multiple hospital admissions due to Urosepsis presents to ED via ambulance complaining that she is "feeling sick." She states she has has had back pain, abdominal pain, dysuria/urgency for the past week. In addition she reports chest tightness and SOB. She denies fever/chills, hematuria. ROS: LE Edema, Constipation (Chronic, last BM 4 days ago), Mild dry cough, + Nausea PMD: Dr. 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 Last discharge on Feb for Urosepsis- UCx Enterococcus Fec, discharged on Nitrofurantoin . Prior Ucx E.Coli sensitive to Rocephin Surgical HX: S/P Percutaneous tube placement, Carotid Endarterectomy, Endoscopy, Cataract extraction left eye; Surgery to the shoulder, elbow and finger; Hand operation for Carpal Tunnel ; IVC Filter; Cholecystostomy Allergies: PCN (rash) FH: Significant for Heart disease SH: Ex Smoker; No alcohol; No illegal drug use; Live with SON (brandi) at night and Aide during the day. Uses walker for ambulation. Present on Admission - Present on Admission Any Indicators Present on Admission: Yes History of DVT/PE: Yes History of Uncontrolled Diabetes: No Urinary Catheter: No Decubitus Ulcer Present: No Review of Systems - Review of Systems Systems not reviewed;Unavailable: Unstable Vital Signs, Altered Mental Status (lethargic, loses concentration but able to be redirected) - EENT Nose/Mouth/Throat: absent: Nasal Congestion, Neck Pain - Cardiovascular Cardiovascular: Chest Pain, Leg Edema, Lightheadedness. absent: Chest Pain at Rest, Dyspnea on Exertion, Leg Ulcers, Orthopnea (mild, dry), Palpitations - Respiratory Respiratory: Cough. absent: Hemoptysis - Gastrointestinal Gastrointestinal: Abdominal Pain, Constipation - Genitourinary Genitourinary: Flank Pain. absent: Hematuria Past Patient History - Infectious Disease Hx of Infectious Diseases: None - Tetanus Immunizations Tetanus Immunization: Unknown - Past Medical History & Family History Past Medical History?: Yes - Past Social History Smoking Status: Never Smoked - CARDIAC Hx Cardia Arrhythmia: Yes Hx Hypertension: Yes Hx Pacemaker: No Hx Peripheral Edema: Yes - PULMONARY Hx Bronchitis: Yes Hx Chronic Obstructive Pulmonary Disease (COPD): Yes Hx Pneumonia: Yes - HEENT Hx HEENT Problems: No - RENAL Hx Chronic Kidney Disease: No - ENDOCRINE/METABOLIC Hx Endocrine Disorders: No - HEMATOLOGICAL/ONCOLOGICAL Hx Anemia: No Hx Human Immunodeficiency Virus (HIV): No - INTEGUMENTARY Hx Dermatological Problems: No - MUSCULOSKELETAL/RHEUMATOLOGICAL Hx Arthritis: Yes Hx Fractures: Yes Hx Osteoporosis: Yes - GASTROINTESTINAL Hx Gastritis: Yes Hx Pancreatitis: Yes - GENITOURINARY/GYNECOLOGICAL Hx Sexually Transmitted Disorders: No - PSYCHIATRIC Hx Anxiety: Yes Hx Depression: Yes - SURGICAL HISTORY Hx Appendectomy: Yes Hx Carotid Endarterectomy: Yes Hx Cholecystectomy: Yes - ANESTHESIA Hx Anesthesia: Yes Hx Anesthesia Reactions: No Hx Malignant Hyperthermia: No Meds Allergies/Adverse Reactions: Allergies Allergy/AdvReac Type Severity Reaction Status Date / Time Penicillins Allergy RASH Verified 02/15/18 16:25 Physical Exam - Constitutional Appears: Toxic, In Acute Distress (moderately distressed appearing, states everything hurts, tachypnic ) - Eye Exam Eye Exam: Normal appearance - ENT Exam ENT Exam: Mucous Membranes Dry - Neck Exam Neck exam: Positive for: Full Rom - Respiratory Exam Respiratory Exam: Accessory Muscle Use (tachypnic), Rales (Bilateral at lung bases). absent: Rhonchi, Wheezes - Cardiovascular Exam Cardiovascular Exam: Tachycardia, +S1, +S2. absent: Systolic Murmur - GI/Abdominal Exam GI & Abdominal Exam: Firm, Normal Bowel Sounds, Tenderness (Lower quadrants bilaterally). absent: Hernia, Soft - Extremities Exam Extremities exam: Positive for: calf tenderness, normal capillary refill, pedal edema (Bilaterally pitting +2-3 up to mid shins, no erythema, diffusely tender t o deep palptation, slight calf patrice with forced dorsiflexion), tenderness, pedal pulses present - Neurological Exam Neurological exam: Alert (slow to responses but oriented x3), Motor Sensory Deficit (moving all extremities, no gross deficits noted ) - Psychiatric Exam Psychiatric exam: Normal Affect - Skin Skin Exam: Diaphoretic, Pallor Results - Vital Signs Recent Vital Signs: Last Vital Signs Temp 99.1 F 04/19/18 00:48 Pulse 115 H 04/19/18 00:48 Resp 22 04/19/18 00:48 BP 138/73 04/19/18 00:48 Pulse Ox 93 L 04/19/18 01:42 - Labs Result Diagrams: 04/18/18 21:40 04/18/18 21:40 Labs: Laboratory Results - last 24 hr 04/18/18 04/18/18 04/18/18 21:40 21:40 21:40 WBC 18.7 H D RBC 4.32 Hgb 12.8 Hct 39.9 MCV 92.3 MCH 29.7 MCHC 32.1 L RDW 13.7 Plt Count 347 MPV 7.7 Neut % (Auto) 88.7 H Lymph % (Auto) 4.0 L [place] % (Auto) 6.9 Eos % (Auto) 0.2 Baso % (Auto) 0.2 Neut # (Auto) 16.6 H Lymph # (Auto) 0.8 L [place] # (Auto) 1.3 H Eos # (Auto) 0.0 Baso # (Auto) 0.0 Neutrophils % (Manual) 87 H Band Neutrophils % 1 Lymphocytes % (Manual) 3 L Monocytes % (Manual) 8 Eosinophils % (Manual) 1 Platelet Estimate Normal Anisocytosis (manual) Slight Tear Drop Cells Slight Sodium 141 Potassium 4.5 Chloride 96 L Carbon Dioxide 28 Anion Gap 22 H BUN 29 H Creatinine 1.4 H Est GFR ( Amer) 44 Est GFR (Non-Af Amer) 36 Random Glucose 203 H Lactic Acid Calcium 9.4 Total Bilirubin 0.5 Direct Bilirubin AST 27 ALT 12 Alkaline Phosphatase 128 H D Troponin I NT-Pro-B Natriuret Pep Total Protein 9.3 H Albumin 4.4 Globulin 4.8 H Albumin/Globulin Ratio 0.9 L Lipase Urine Color Urine Clarity Urine pH Ur Specific [place] Urine Protein Urine Glucose (UA) Urine Ketones Urine Blood Urine Nitrate Urine Bilirubin Urine Urobilinogen Ur Leukocyte Esterase Urine RBC (Auto) Urine Microscopic WBC Ur Squamous Epith Cells Urine Bacteria Influenza Typ A,B (EIA) Negative for flu a/b 04/18/18 04/18/18 04/19/18 22:04 23:18 00:13 WBC RBC Hgb Hct MCV MCH MCHC RDW Plt Count MPV Neut % (Auto) Lymph % (Auto) [place] % (Auto) Eos % (Auto) Baso % (Auto) Neut # (Auto) Lymph # (Auto) [place] # (Auto) Eos # (Auto) Baso # (Auto) Neutrophils % (Manual) Band Neutrophils % Lymphocytes % (Manual) Monocytes % (Manual) Eosinophils % (Manual) Platelet Estimate Anisocytosis (manual) Tear Drop Cells Sodium Potassium Chloride Carbon Dioxide Anion Gap BUN Creatinine Est GFR ( Amer) Est GFR (Non-Af Amer) Random Glucose Lactic Acid 4.2 H* Calcium Total Bilirubin Direct Bilirubin AST ALT Alkaline Phosphatase Troponin I < 0.0120 NT-Pro-B Natriuret Pep Total Protein Albumin Globulin Albumin/Globulin Ratio Lipase Urine Color Straw Urine Clarity Slighty-cloudy Urine pH 7.0 Ur Specific [place] 1.010 Urine Protein 30 Urine Glucose (UA) 50 Urine Ketones Negative Urine Blood Moderate Urine Nitrate Negative Urine Bilirubin Negative Urine Urobilinogen 0.2-1.0 Ur Leukocyte Esterase Mod Urine RBC (Auto) 56 H Urine Microscopic WBC 60 H Ur Squamous Epith Cells 2 Urine Bacteria Rare Influenza Typ A,B (EIA) 04/19/18 04/19/18 00:46 01:17 WBC RBC Hgb Hct MCV MCH MCHC RDW Plt Count MPV Neut % (Auto) Lymph % (Auto) [place] % (Auto) Eos % (Auto) Baso % (Auto) Neut # (Auto) Lymph # (Auto) [place] # (Auto) Eos # (Auto) Baso # (Auto) Neutrophils % (Manual) Band Neutrophils % Lymphocytes % (Manual) Monocytes % (Manual) Eosinophils % (Manual) Platelet Estimate Anisocytosis (manual) Tear Drop Cells Sodium Potassium Chloride Carbon Dioxide Anion Gap BUN Creatinine Est GFR ( Amer) Est GFR (Non-Af Amer) Random Glucose Lactic Acid Calcium Total Bilirubin 0.5 Direct Bilirubin 0.3 AST 30 ALT 13 Alkaline Phosphatase 129 H Troponin I NT-Pro-B Natriuret Pep 596 Total Protein 9.3 H Albumin 4.4 Globulin 4.9 H Albumin/Globulin Ratio 0.9 L Lipase 31 Urine Color Urine Clarity Urine pH Ur Specific [place] Urine Protein Urine Glucose (UA) Urine Ketones Urine Blood Urine Nitrate Urine Bilirubin Urine Urobilinogen Ur Leukocyte Esterase Urine RBC (Auto) Urine Microscopic WBC Ur Squamous Epith Cells Urine Bacteria Influenza Typ A,B (EIA) Assessment & Plan - Assessment and Plan (Free Text) Assessment: Pt is a 77 y/o female with extensive medical history including multiple hospital admissions due to Urosepsis admitted now for Urosepsis, Acute renal failure, and Obstructing R. renal stone and R. Hydronephrosis. #Severe Sepsis - Sepsis: Tachycardia, Leukocytosis 187, Lactic Acid 4.2, UA :+RBC, LES - S/P Fluid resuscitation in ED 1-2 L NS - Hemodynamically stable - Source of Infection likely UTI secondary to obstructive uropathy - Abdomen CT: Renal stones bilaterally. Right 7.3mm obstructing stone in ureterovesical junction, R. Hypodronephrosis. Multiple non obstructing stones in left renal pelvis w/ mild left hydronephrosis - Will Continue with Rocephin 2g daily as last Ucx's have grown bacteria susceptible to this - Urology Consulted, Dr. Ellis - Cardiac Monitoring in telemetry; Vitals q4 - F/U CBC, Lactic Acid, Bcx, and Ucx #Acute Renal Failure - Crea 1.4, GFR 36 ( Baseline GFR >60) - Likely post renal in setting of obstructive renal stones bilaterally; may also be pre-renal in setting of severe sepsis/dehydration - Monitor UO: Goal Urine Output -- 0.55c/kg/hr - Gentle hydration, NS at 70cc/hr in light of fluid overload state - Flomax 0.4mg daily #Lethargy/Weakness - Metabolic encephalopathy in setting of Severe Sepsis - Treat underlying infection - Monitor neuromental status #SOB - Tachypnic, RR 25 in ED - Likely hyperventilation, respiratory compensation for metabolic acidosis - If continues despite improvement in infectious status, consider other causes (PE/PNU/COPD) - F/U Chest Portable # Chest pain, Atypical - EKG: Sinus Tachy w/ PVC; no ischemic changes - Troponin x1 negative; Follow serial cardiac enzymes - JOSEE Score 6 - C/W ASA # LE edema bilateral - New onset as per patient - Hx notable for prior LE DVT's bilaterally (2013), Hx of IVC filter? - Weak homans signs on exam - Likely venous stasis vs acute renal failure vs DVT - ProBNP 596 - F/U Venous duplex studies - Monitor I/O, Daily weights, fluid restriction #Hx of Atrial Flutter -C/W Metropolol 12.5mg q12 -Healthcare Analyst #HTN - C/W with home antihypertensives with careful monitoring of blood pressure - Norvasc and Irbasartan (NF,will give Losartan instead) #Chronic Constipation -Likely due to chronic opiod use -Will continue home meds + Miralax and Glycerin suppository prn -No Bowel obstruction on CT scan #Prediabetic -Hga1c 6.3 in 2017, will repeat arianne given frequent UTI's #Overactive Bladder -Oxybutynin held in light of active urinary obstruction #DVT ppx -Moderate to high risk: Hx of DVT, Age>60, Obesity, active LE swelling -Will hold anticoagulants for now in light of possible procedure -Venodyne boots -Will encourage early ambulation #GI ppx -Protonix 40mg daily #Diet -NPO ,possible procedure #Code Status -Need to establish Next of Kin: Brandi Bradley Discussed case with Dr. Sebastian Parker, PGY2
[2018-04-19 05:27] LABS: INR 1.2; PROTHROMBIN TIME 13.6 Seconds (9.8-13.1)
[2018-04-19 05:30] LABS: PARTIAL THROMBOPLASTIN TIME 33.9 Seconds (25.6-37.1)
[2018-04-19 05:34] LABS: BASO # 0.1 K/uL (0.0-0.2); BASO % 0.5 % (0.0-2.0); HEMOGLOBIN 11.3 g/dL (12.0-16.0); LYMPH # 0.3 K/uL (1.0-4.3); LYMPH % 1.4 % (20.0-40.0); MEAN CELL VOLUME 91.4 fl (81.0-99.0); MEAN CORPUSCULAR HEMOGLOBIN 29.5 pg (27.0-31.0); MEAN CORPUSCULAR HGB CONC 32.3 g/dL (33.0-37.0); MEAN PLATELET VOLUME 7.7 fl (7.2-11.7); MONO # 0.3 K/uL (0.0-0.8); MONO % 1.6 % (0.0-10.0); NEUT # 19.8 K/uL (1.8-7.0); NEUT % 96.5 % (50.0-75.0); PLATELET COUNT 268 K/uL (130-400); RBC 3.82 Mil/uL (3.80-5.20); RED CELL DISTRIBUTION WIDTH 13.6 % (11.5-14.5); WHITE BLOOD COUNT 20.5 K/uL (4.8-10.8)
[2018-04-19 05:50] LABS: ALB/GLOB RATIO 0.9 (1.0-2.1); ALBUMIN 3.4 g/dL (3.5-5.0); CALCIUM 8.2 mg/dL (8.4-10.2); TROPONIN I 0.588 ng/mL (0.00-0.120)
--- NOTE | 2018-04-19 08:51 | CARD ---
APPROVED REPORT Date of service: 04/19/2018 EKG Measurement Heart [id number] <Conclusion> Sinus tachycardia Otherwise normal ECG
[2018-04-19] MEDS ORDERED: Magnesium Sulfate 1 gm in D5W 1 GM/100 ML BAG IVPB ONE (09:00)
[2018-04-19] MEDS ORDERED: IRBESARTAN 300 MG PO SCH (09:00)
[2018-04-19] MEDS ORDERED: Enoxaparin 40 mg Syringe SC SCH (09:00)
[2018-04-19] MEDS ORDERED: Patient's Own Med (Multivitamin [Multi-Vitamin Daily] 1 TAB) PO SCH (09:00)
[2018-04-19] MEDS ORDERED: POLYETHYLENE GLYCOL 3350 17 GM/Dose PACKET PO ONE (09:00)
[2018-04-19] MEDS: Magnesium Oxide 400 mg Tab UD PO SCH ×2 (09:17→17:34)
[2018-04-19] MEDS: Multivitamin With Minerals Tab PO SCH (09:18)
[2018-04-19] MEDS: Aspirin 325 mg EC Tablets PO SCH ×2 (09:25→11:01)
--- NOTE | 2018-04-19 09:48 | CP.PCM.PN ---
Subjective - Date & Time of Evaluation Date of Evaluation: 04/19/18 Time of Evaluation: 07:20 Objective - Vital Signs/Intake and Output Vital Signs (last 24 hours): Temp Pulse Resp BP Pulse Ox 101.9 F H 103 H 18 97/59 L 93 L 04/19/18 08:45 04/19/18 09:17 04/19/18 08:45 04/19/18 09:17 04/19/18 08:45 - Medications Medications: Current Medications Acetaminophen (Tylenol 325mg Tab) 650 mg PO Q6 PRN PRN Reason: Fever >100.4 F Last Admin: 04/19/18 04:57 Dose: 650 mg Acetaminophen (Tylenol 325mg Tab) 650 mg PO Q6 PRN PRN Reason: Pain, Mild (1-3) Amlodipine Besylate (Norvasc) 5 mg PO DAILY [facility] Last Admin: 04/19/18 09:16 Dose: Not Given Aspirin (Ecotrin) 325 mg PO DAILY [facility] Last Admin: 04/19/18 09:25 Dose: 325 mg Atorvastatin Calcium (Lipitor) 40 mg PO DAILY [facility] Docusate Sodium (Colace) 100 mg PO TID PRN PRN Reason: Constipation Duloxetine HCl (Cymbalta) 60 mg PO HS [facility] Glycerin (Glycerin Adult Suppository) 1 sup CA ONCE PRN PRN Reason: constipation Home Med (Lubiprostone [Amitiza]) 24 mcg PO DAILY [facility] Sodium Chloride (Sodium Chloride 0.9%) 1,000 mls @ 75 mls/hr IV .[id number] [facility] Last Admin: 04/19/18 01:20 Dose: 75 mls/hr Ceftriaxone Sodium 2 gm/ (Sodium Chloride) 100 mls @ 100 mls/hr IVPB DAILY [facility]; Protocol Magnesium Sulfate/Dextrose (Magnesium Sulfate 1 Gm/100 Ml D5w) 1 gm in 100 mls @ 100 mls/hr IVPB ONCE ONE Stop: 04/19/18 09:59 Magnesium Oxide (Mag-Ox) 400 mg PO BID [facility] Last Admin: 04/19/18 09:17 Dose: 400 mg Metoprolol Tartrate (Lopressor) 12.5 mg PO Q12 [facility] Last Admin: 04/19/18 09:17 Dose: Not Given Multivitamins/Minerals (Therapeutic-M Tab) 1 tab PO DAILY [facility] Last Admin: 04/19/18 09:18 Dose: 1 tab Ondansetron HCl (Zofran Inj) 4 mg IVP Q6 PRN PRN Reason: Nausea/Vomiting Oxybutynin Chloride (Ditropan Tab) 5 mg PO TID PATTI Pantoprazole Sodium (Protonix Ec Tab) 40 mg PO DAILY [facility] Potassium Phos/Sodium Phos (Neutra-Phos) 1 pkt PO QID [facility] Sennosides (Senokot Tab) 8.6 mg PO BID PRN PRN Reason: Constipation Simethicone (Mylicon Chew Tab) 80 mg PO Q6 PRN PRN Reason: Gas relief Tamsulosin HCl (Flomax) 0.4 mg PO DAILY [facility] Last Admin: 04/19/18 09:19 Dose: 0.4 mg - Labs Labs: 04/19/18 04:30 04/19/18 04:30 PT 13.6 Seconds (9.8-13.1) H 04/19/18 04:30 INR 1.2 04/19/18 04:30 APTT 33.9 Seconds (25.6-37.1) 04/19/18 04:30
[2018-04-19] MEDS: Pantoprazole 40 mg EC Tab PO SCH (11:07)
[2018-04-19] MEDS: Potassium & Sodium Phosphate PO SCH ×4 (11:07→21:13)
[2018-04-19 11:11] LABS: TROPONIN I 1.01 ng/mL (0.00-0.120)
[2018-04-19 11:19] LABS: BANDS 6 % (0-2); LYMPHOCYTE 2 % (20-50); METAMYELOCYTE 1 % (0-0); MONOCYTE 5 % (0-10); NEUTROPHIL 86 % (42-75); PLATELET ESTIMATE NORMAL (NORMAL); TOTAL CELLS COUNTED 100
[2018-04-19 11:20] LABS: HYPOCHROMIC SLIGHT; OVALOCYTES SLIGHT; TOXIC GRANULATION PRESENT
--- NOTE | 2018-04-19 11:41 | CT ---
Date of service: 04/19/2018 PROCEDURE: CT Abdomen and Pelvis without intravenous contrast HISTORY: code sepsis COMPARISON: Abdomen and pelvis CT with contrast 02/11/2018 TECHNIQUE: Helical CT of the abdomen and pelvis was performed without oral or intravenous contrast as per referring physician request. Coronal and sagittal reformats were generated.. Contrast dose: None Radiation dose: Total exam DLP = 906.33 mGy-cm. This CT exam was performed using one or more of the following dose reduction techniques: Automated exposure control, adjustment of the mA and/or kV according to patient size, and/or use of iterative reconstruction technique. FINDINGS: LOWER THORAX: Fibrotic changes are favored over atelectasis the left bases they have not changed in the interval compared 02/11/[address] LIVER: Mild hepatomegaly is reiterated without definitive mass. Lack of intravenous contrast limits evaluation of the solid abdominal organs predominantly. GALLBLADDER AND BILE DUCTS: Gallbladder is rather distended, similarly than previously shown. Biliary tree is difficult to characterize given lack of intravenous contrast. No radiodense choledocholithiasis or cholelithiasis appreciable at this time. No mural thickening or pericolic fluid collection identified. PANCREAS: Limited chronic pancreatitis pattern again evident. Pancreatic atrophy reiterated. SPLEEN: Unremarkable. ADRENALS: Unremarkable. No mass. KIDNEYS AND URETERS: Multiple large calculi identified at the bilateral renal pelves as well as the mid to lower pole renal calices in a pattern of early development probable staghorn calculi though a staghorn calculus is not specifically identified at this time. Streaky perinephric changes are stable at the left side and appear to have increased at the right raising question of potential pyelonephritis. Lack of intravenous contrast limits evaluation of both kidneys including the right for possible pyelonephritis. VASCULATURE: Nonaneurysmal abdominal aortic calcific atherosclerotic changes are identified. BOWEL: Unremarkable. No obstruction. No gross mural thickening. Prominent retained fecal material is again appreciate suspicious for constipation. APPENDIX: Unremarkable. Normal appendix. PERITONEUM: Unremarkable. No free fluid. No free air. LYMPH NODES: Unremarkable. No enlarged lymph nodes. BLADDER: Unremarkable. REPRODUCTIVE: Unremarkable. BONES: Benign hemangiomas are incidentally captured at the T12 and L4 vertebral bodies once again with advanced multilevel degenerative disease appreciated throughout the thoracolumbar spine. Limited dextroscoliosis of the mid lumbar spine again evident. Further, late stage osteoarthritis of the right hip is appreciated with only mild to moderate left hip degenerative changes. There is marked joint space narrowing appreciated with minimal residual at the right hip joint, gross osteophyte development and subchondral cyst formation. There is also some subluxation of the right femoral head lateral relative to the acetabulum. OTHER FINDINGS: None. IMPRESSION: 1. Pattern suspicious for potential right pyelonephritis with stable left perinephric reaction identified. Multiple intrarenal calculi identified bilaterally as discussed above. No definite obstructive uropathy bilaterally. 2. Prominent gallbladder distention again evident without other acute sinus that would suggest cholecystitis. Dilated biliary tree is difficult to compare due lack images contrast. Ultrasonography may be useful for follow-up. 3. Chronic pancreatitis reiterated. 4. Likely constipation. Clinically correlate further. 5. End-stage right hip osteoarthritis as discussed above. Concordant preliminary report from Marko, 04/19/2018 1:23 a.m..
--- NOTE | 2018-04-19 13:57 | US ---
Date of service: 04/19/2018 PROCEDURE: Bilateral lower extremity venous duplex Doppler. HISTORY: rule out DVT's, hx of DVT COMPARISON: 10/05/2017 bilateral lower extremity duplex venous sonography. TECHNIQUE: Bilateral common femoral, superficial femoral, popliteal and posterior tibial veins were evaluated. Flow was assessed with color Doppler, compressibility, assessment of phasic flow and augmentation response. FINDINGS: COMMON FEMORAL VEIN: Right CFV: Unremarkable. Left CFV: Unremarkable. SUPERFICIAL FEMORAL VEIN: Right SFV: Unremarkable. Left SFV: Unremarkable. POPLITEAL VEIN: Right Popliteal: Unremarkable. Left Popliteal: Unremarkable. POSTERIOR TIBIAL VEIN: Right PTV: Unremarkable. Left PTV: Unremarkable. OTHER FINDINGS: None. IMPRESSION: No evidence of deep venous thrombosis.No significant interval change compared to the prior examination(s).
--- NOTE | 2018-04-19 14:18 | CP.PCM.CON ---
History of Present Illness - History of Present Illness History of Present Illness: ASKED TO SEE PT FOR ELEVATED TROPONIN AND GAGANDEEP. 77 Y/O FEMALE WITH CC OF RIGHT FLANK PAIN X 1 WEEK. PT STATES HER PAIN HAS BEEN SLOWLY PROGRESSIVE, WITH ASSOCIATED FATIGUE AND SWEATS. SHE DENIES N/V/D/C, DENIES CP, SOB, ORTHOPNEA, PND, PALP. ON ADMISSION PTS TROP WAS NEGATIVE, HOWEVER IT HAS SLOWLY INCREASED LAST 24 HOURS. CONCORDANTLY THE PTS CR HAS ALSO CONTINUED TO CLIMB OVER PAST 24-48 HRS. ON ADMISSION PT WAS DIAGNOSED WITH UROSEPSIS AND TREATED WITH IVF AND ABX. CT SHOWED POSSIBLE RIGHT PYLONEPHRITIS. SINCE THEN HER CR HAS INCREASED AND BP DECREASED. SHE WAS TRANSFERED TO ICU EARLIER FOR HYPOTENSION. CURRENTLY ON NS AT 75CC/HR AND LEVOPHED. BP 82/43 (53) EKG REVEALS SINUS TACH NO ACUTE CHANGES. ECHO IMAGES REVIEWED PERSONALLY AND LISTED IN PLAN PT IS HYPOTENSIVE, DIAPHORETIC, AND VISIBLY UNCOMFORTABLE, THE HISTORY OF HER PYELONEPHRITIS IS LIMITED DUE TO HER LIMITED ABILITY TO FOCUS AND/OR REMEMBER PRIOR EVENTS. Review of Systems - Review of Systems Systems not reviewed;Unavailable: Unstable Vital Signs, Altered Mental Status - Constitutional Constitutional: As Per HPI, Fever - Cardiovascular Cardiovascular: As Per HPI - Respiratory Respiratory: As Per HPI - Gastrointestinal Gastrointestinal: As Per HPI - Genitourinary Genitourinary: Voiding Freq/Small Amts - Musculoskeletal Musculoskeletal: As Per HPI - Integumentary Integumentary: As Per HPI - Neurological Neurological: As Per HPI - Psychiatric Psychiatric: As Per HPI - Endocrine Endocrine: As Per HPI - Hematologic/Lymphatic Hematologic: As Per HPI Past Patient History - Infectious Disease Hx of Infectious Diseases: None - Tetanus Immunizations Tetanus Immunization: Unknown - Past Medical History & Family History Past Medical History?: Yes - Past Social History Smoking Status: Never Smoked Chewing Tobacco Use: No Cigar Use: No Alcohol: None Drugs: Denies Domestic Violence: Negative - CARDIAC Hx Cardiac Disorders: Yes Hx Cardia Arrhythmia: Yes Hx Hypertension: Yes Hx Pacemaker: No Hx Peripheral Edema: Yes - PULMONARY Hx Respiratory Disorders: Yes Hx Bronchitis: Yes Hx Chronic Obstructive Pulmonary Disease (COPD): Yes Hx Pneumonia: Yes - NEUROLOGICAL Hx Neurological Disorder: No - HEENT Hx HEENT Problems: No - RENAL Hx Chronic Kidney Disease: No - ENDOCRINE/METABOLIC Hx Endocrine Disorders: No - HEMATOLOGICAL/ONCOLOGICAL Hx Blood Disorders: No Hx Anemia: No Hx Human Immunodeficiency Virus (HIV): No - INTEGUMENTARY Hx Dermatological Problems: No - MUSCULOSKELETAL/RHEUMATOLOGICAL Hx Musculoskeletal Disorders: Yes Hx Arthritis: Yes Hx Fractures: Yes Hx Osteoporosis: Yes - GASTROINTESTINAL Hx Gastrointestinal Disorders: Yes Hx Gastritis: Yes Hx Pancreatitis: Yes - GENITOURINARY/GYNECOLOGICAL Hx Genitourinary Disorders: Yes Hx Bladder Stone: Yes Hx Sexually Transmitted Disorders: No - PSYCHIATRIC Hx Psychophysiologic Disorder: Yes Hx Anxiety: Yes Hx Depression: Yes - SURGICAL HISTORY Hx Appendectomy: Yes Hx Carotid Endarterectomy: Yes Hx Cholecystectomy: Yes - ANESTHESIA Hx Anesthesia: Yes Hx Anesthesia Reactions: No Hx Malignant Hyperthermia: No Meds Allergies/Adverse Reactions: Allergies Allergy/AdvReac Type Severity Reaction Status Date / Time Penicillins Allergy RASH Verified 02/15/18 16:25 - Medications Medications: Current Medications Acetaminophen (Tylenol 325mg Tab) 650 mg PO Q6 PRN PRN Reason: Fever >100.4 F Last Admin: 04/19/18 04:57 Dose: 650 mg Acetaminophen (Tylenol 325mg Tab) 650 mg PO Q6 PRN PRN Reason: Pain, Mild (1-3) Aspirin (Ecotrin) 325 mg PO DAILY [facility] Last Admin: 04/19/18 11:01 Dose: Not Given Atorvastatin Calcium (Lipitor) 40 mg PO DAILY [facility] Last Admin: 04/19/18 11:05 Dose: 40 mg Docusate Sodium (Colace) 100 mg PO TID PRN PRN Reason: Constipation Duloxetine HCl (Cymbalta) 60 mg PO [facility] Glycerin (Glycerin Adult Suppository) 1 sup CO ONCE PRN PRN Reason: constipation Sodium Chloride (Sodium Chloride 0.9%) 1,000 mls @ 75 mls/hr IV .[id number] [facility] Last Admin: 04/19/18 01:20 Dose: 75 mls/hr Ceftriaxone Sodium 2 gm/ (Sodium Chloride) 100 mls @ 100 mls/hr IVPB DAILY [facility]; Protocol Magnesium Oxide (Mag-Ox) 400 mg PO BID [facility] Last Admin: 04/19/18 09:17 Dose: 400 mg Metoprolol Tartrate (Lopressor) 12.5 mg PO Q12 [facility] Last Admin: 04/19/18 09:17 Dose: Not Given Multivitamins/Minerals (Therapeutic-M Tab) 1 tab PO DAILY [facility] Last Admin: 04/19/18 09:18 Dose: 1 tab Ondansetron HCl (Zofran Inj) 4 mg IVP Q6 PRN PRN Reason: Nausea/Vomiting Oxybutynin Chloride (Ditropan Tab) 5 mg PO TID [facility] Pantoprazole Sodium (Protonix Ec Tab) 40 mg PO DAILY [facility] Last Admin: 04/19/18 11:07 Dose: 40 mg Potassium Phos/Sodium Phos (Neutra-Phos) 1 pkt PO QID [facility] Last Admin: 04/19/18 11:07 Dose: 1 pkt Sennosides (Senokot Tab) 8.6 mg PO BID PRN PRN Reason: Constipation Simethicone (Mylicon Chew Tab) 80 mg PO Q6 PRN PRN Reason: Gas relief Tamsulosin HCl (Flomax) 0.4 mg PO DAILY [facility] Last Admin: 04/19/18 09:19 Dose: 0.4 mg Physical Exam - Constitutional Appears: Toxic Additional comments: DIAPHORETIC - Head Exam Head Exam: ATRAUMATIC, NORMAL INSPECTION, NORMOCEPHALIC - Eye Exam Eye Exam: EOMI, Normal appearance, PERRL Pupil Exam: NORMAL ACCOMODATION, PERRL - ENT Exam ENT Exam: Mucous Membranes Dry. absent: Mucous Membranes Moist, Normal Exam, Normal External Ear Exam, Normal Oropharynx, TM's Normal Bilaterally - Neck Exam Neck exam: Positive for: Normal Inspection. Negative for: Full Rom, Lymphadenopathy, Meningismus, Tenderness, Thyromegaly - Respiratory Exam Respiratory Exam: Clear to Auscultation Bilateral, NORMAL BREATHING PATTERN. ab sent: Accessory Muscle Use, Chest Wall Tenderness, Decreased Breath Sounds, Prolonged Expiratory Phase, Rales, Rhonchi, Wheezes, Respiratory Distress, Stridor - Cardiovascular Exam Cardiovascular Exam: Tachycardia, REGULAR RHYTHM, +S1, +S2, Systolic Murmur. ab sent: Bradycardia, Clicks, Diastolic murmur, Gallop, Irregular Rhythm, JVD, RRR, Rubs, +S4 - GI/Abdominal Exam GI & Abdominal Exam: Normal Bowel Sounds, Soft. absent: Bruit, Diminished Bowel Sounds, Distended, Firm, Guarding, Hernia, Hyperactive Bowel Sounds, Hypoactive Bowel Sounds, Mass, Organomegaly, Pulsatile Mass, Rebound, Rigid, Tenderness - Rectal Exam Rectal Exam: Deferred - Extremities Exam Extremities exam: Positive for: pedal edema, pedal pulses present. Negative fo r: calf tenderness, full ROM, joint swelling, normal capillary refill, normal inspection, tenderness - Back Exam Back exam: CVA tenderness (R), tenderness. absent: CVA tenderness (L), FULL ROM, muscle spasm, NORMAL INSPECTION, paraspinal tenderness, rash noted, vertebral tenderness - Neurological Exam Neurological exam: Alert Additional comments: ANSWERS WHAT SHE CAN APPROPRIATELY - Psychiatric Exam Psychiatric exam: Normal Affect, Normal Mood - Skin Skin Exam: Dry, Intact, Normal Color, Warm Results - Vital Signs Recent Vital Signs: Last Vital Signs Temp 98 F 04/19/18 12:43 Pulse 107 H 04/19/18 12:43 Resp 18 04/19/18 12:43 BP 97/62 L 04/19/18 12:43 Pulse Ox 92 L 04/19/18 12:43 - Labs Result Diagrams: 04/19/18 15:40 04/19/18 15:40 Labs: Laboratory Results - last 24 hr 04/18/18 04/18/18 04/18/18 21:40 21:40 21:40 WBC 18.7 H D RBC 4.32 Hgb 12.8 Hct 39.9 MCV 92.3 MCH 29.7 MCHC 32.1 L RDW 13.7 Plt Count 347 MPV 7.7 Neut % (Auto) 88.7 H Lymph % (Auto) 4.0 L [place] % (Auto) 6.9 Eos % (Auto) 0.2 Baso % (Auto) 0.2 Neut # (Auto) 16.6 H Lymph # (Auto) 0.8 L [place] # (Auto) 1.3 H Eos # (Auto) 0.0 Baso # (Auto) 0.0 Neutrophils % (Manual) 87 H Band Neutrophils % 1 Lymphocytes % (Manual) 3 L Monocytes % (Manual) 8 Eosinophils % (Manual) 1 Metamyelocytes % Toxic Granulation Platelet Estimate Normal Hypochromasia (manual) Anisocytosis (manual) Slight Tear Drop Cells Slight Ovalocytes PT INR APTT Sodium 141 Potassium 4.5 Chloride 96 L Carbon Dioxide 28 Anion Gap 22 H BUN 29 H Creatinine 1.4 H Est GFR ( Amer) 44 Est GFR (Non-Af Amer) 36 Random Glucose 203 H Hemoglobin A1c Lactic Acid Calcium 9.4 Phosphorus Magnesium Total Bilirubin 0.5 Direct Bilirubin AST 27 ALT 12 Alkaline Phosphatase 128 H D Troponin I NT-Pro-B Natriuret Pep Total Protein 9.3 H Albumin 4.4 Globulin 4.8 H Albumin/Globulin Ratio 0.9 L Triglycerides Cholesterol LDL Cholesterol Direct HDL Cholesterol Lipase Urine Color Urine Clarity Urine pH Ur Specific [place] Urine Protein Urine Glucose (UA) Urine Ketones Urine Blood Urine Nitrate Urine Bilirubin Urine Urobilinogen Ur Leukocyte Esterase Urine RBC (Auto) Urine Microscopic WBC Ur Squamous Epith Cells Urine Bacteria Influenza Typ A,B (EIA) Negative for flu a/b 04/18/18 04/18/18 04/19/18 22:04 23:18 00:13 WBC RBC Hgb Hct MCV MCH MCHC RDW Plt Count MPV Neut % (Auto) Lymph % (Auto) [place] % (Auto) Eos % (Auto) Baso % (Auto) Neut # (Auto) Lymph # (Auto) [place] # (Auto) Eos # (Auto) Baso # (Auto) Neutrophils % (Manual) Band Neutrophils % Lymphocytes % (Manual) Monocytes % (Manual) Eosinophils % (Manual) Metamyelocytes % Toxic Granulation Platelet Estimate Hypochromasia (manual) Anisocytosis (manual) Tear Drop Cells Ovalocytes PT INR APTT Sodium Potassium Chloride Carbon Dioxide Anion Gap BUN Creatinine Est GFR ( Amer) Est GFR (Non-Af Amer) Random Glucose Hemoglobin A1c Lactic Acid 4.2 H* Calcium Phosphorus Magnesium Total Bilirubin Direct Bilirubin AST ALT Alkaline Phosphatase Troponin I < 0.0120 NT-Pro-B Natriuret Pep Total Protein Albumin Globulin Albumin/Globulin Ratio Triglycerides Cholesterol LDL Cholesterol Direct HDL Cholesterol Lipase Urine Color Straw Urine Clarity Slighty-cloudy Urine pH 7.0 Ur Specific [place] 1.010 Urine Protein 30 Urine Glucose (UA) 50 Urine Ketones Negative Urine Blood Moderate Urine Nitrate Negative Urine Bilirubin Negative Urine Urobilinogen 0.2-1.0 Ur Leukocyte Esterase Mod Urine RBC (Auto) 56 H Urine Microscopic WBC 60 H Ur Squamous Epith Cells 2 Urine Bacteria Rare Influenza Typ A,B (EIA) 04/19/18 04/19/18 04/19/18 00:46 01:17 04:30 WBC RBC Hgb Hct MCV MCH MCHC RDW Plt Count MPV Neut % (Auto) Lymph % (Auto) [place] % (Auto) Eos % (Auto) Baso % (Auto) Neut # (Auto) Lymph # (Auto) [place] # (Auto) Eos # (Auto) Baso # (Auto) Neutrophils % (Manual) Band Neutrophils % Lymphocytes % (Manual) Monocytes % (Manual) Eosinophils % (Manual) Metamyelocytes % Toxic Granulation Platelet Estimate Hypochromasia (manual) Anisocytosis (manual) Tear Drop Cells Ovalocytes PT INR APTT Sodium 138 Potassium 4.0 Chloride 103 Carbon Dioxide 22 Anion Gap 17 BUN 26 H Creatinine 1.5 H Est GFR ( Amer) 41 Est GFR (Non-Af Amer) 33 Random Glucose 152 H Hemoglobin A1c Lactic Acid Calcium 8.2 L Phosphorus 1.7 L Magnesium 1.4 L Total Bilirubin 0.5 0.6 Direct Bilirubin 0.3 AST 30 21 ALT 13 15 Alkaline Phosphatase 129 H 97 Troponin I 0.5880 H* NT-Pro-B Natriuret Pep 596 Total Protein 9.3 H 7.2 Albumin 4.4 3.4 L D Globulin 4.9 H 3.8 Albumin/Globulin Ratio 0.9 L 0.9 L Triglycerides Cholesterol LDL Cholesterol Direct HDL Cholesterol Lipase 31 Urine Color Urine Clarity Urine pH Ur Specific [place] Urine Protein Urine Glucose (UA) Urine Ketones Urine Blood Urine Nitrate Urine Bilirubin Urine Urobilinogen Ur Leukocyte Esterase Urine RBC (Auto) Urine Microscopic WBC Ur Squamous Epith Cells Urine Bacteria Influenza Typ A,B (EIA) 04/19/18 04/19/18 04/19/18 04:30 04:30 04:30 WBC 20.5 H RBC 3.82 Hgb 11.3 L Hct 34.9 MCV 91.4 MCH 29.5 MCHC 32.3 L RDW 13.6 Plt Count 268 MPV 7.7 Neut % (Auto) 96.5 H Lymph % (Auto) 1.4 L [place] % (Auto) 1.6 Eos % (Auto) 0.0 Baso % (Auto) 0.5 Neut # (Auto) 19.8 H Lymph # (Auto) 0.3 L [place] # (Auto) 0.3 Eos # (Auto) 0.0 Baso # (Auto) 0.1 Neutrophils % (Manual) 86 H Band Neutrophils % 6 H Lymphocytes % (Manual) 2 L Monocytes % (Manual) 5 Eosinophils % (Manual) Metamyelocytes % 1 H Toxic Granulation Present Platelet Estimate Normal Hypochromasia (manual) Slight Anisocytosis (manual) Tear Drop Cells Ovalocytes Slight PT 13.6 H INR 1.2 APTT 33.9 Sodium Potassium Chloride Carbon Dioxide Anion Gap BUN Creatinine Est GFR ( Amer) Est GFR (Non-Af Amer) Random Glucose Hemoglobin A1c Lactic Acid 2.1 Calcium Phosphorus Magnesium Total Bilirubin Direct Bilirubin AST ALT Alkaline Phosphatase Troponin I NT-Pro-B Natriuret Pep Total Protein Albumin Globulin Albumin/Globulin Ratio Triglycerides Cholesterol LDL Cholesterol Direct HDL Cholesterol Lipase Urine Color Urine Clarity Urine pH Ur Specific [place] Urine Protein Urine Glucose (UA) Urine Ketones Urine Blood Urine Nitrate Urine Bilirubin Urine Urobilinogen Ur Leukocyte Esterase Urine RBC (Auto) Urine Microscopic WBC Ur Squamous Epith Cells Urine Bacteria Influenza Typ A,B (EIA) 04/19/18 04/19/18 04:45 09:20 WBC RBC Hgb Hct MCV MCH MCHC RDW Plt Count MPV Neut % (Auto) Lymph % (Auto) [place] % (Auto) Eos % (Auto) Baso % (Auto) Neut # (Auto) Lymph # (Auto) [place] # (Auto) Eos # (Auto) Baso # (Auto) Neutrophils % (Manual) Band Neutrophils % Lymphocytes % (Manual) Monocytes % (Manual) Eosinophils % (Manual) Metamyelocytes % Toxic Granulation Platelet Estimate Hypochromasia (manual) Anisocytosis (manual) Tear Drop Cells Ovalocytes PT INR APTT Sodium Potassium Chloride Carbon Dioxide Anion Gap BUN Creatinine Est GFR ( Amer) Est GFR (Non-Af Amer) Random Glucose Hemoglobin A1c 6.4 Lactic Acid Calcium Phosphorus Magnesium Total Bilirubin Direct Bilirubin AST ALT Alkaline Phosphatase Troponin I 1.0100 H* NT-Pro-B Natriuret Pep Total Protein Albumin Globulin Albumin/Globulin Ratio Triglycerides 133 D Cholesterol 135 LDL Cholesterol Direct 72 HDL Cholesterol 23 L Lipase Urine Color Urine Clarity Urine pH Ur Specific [place] Urine Protein Urine Glucose (UA) Urine Ketones Urine Blood Urine Nitrate Urine Bilirubin Urine Urobilinogen Ur Leukocyte Esterase Urine RBC (Auto) Urine Microscopic WBC Ur Squamous Epith Cells Urine Bacteria Influenza Typ A,B (EIA) - EKG Data EKG Interpreted by: Myself EKG shows normal: Sinus rhythm Rate: Tachycardia Assessment & Plan (1) Troponin level elevated Status: Acute (2) ARF (acute renal failure) Status: Acute Priority: High (3) Bilateral lower extremity edema Status: Acute (4) Aortic insufficiency Status: Chronic Priority: Low (5) Pyelonephritis, acute Status: Acute (6) Severe dehydration Status: Acute (7) Severe sepsis Status: Acute - Assessment and Plan (Free Text) Plan: echo reveals tachycardia with hyperdynamic lv. possible dehydration, ivc not imaged. pap not measured. ef normal. mild ai. - hold amlodipine - change levophed to nawaf as pt has positive trop. - give ivf for hypotension and renal failure and minimal urine output - 1L additional ns bolus ordered, to be followed by 125cc/hr for 1 liter then decrease to 100. pt has large bsa, nml ef and is septic. she needs more than 75cc/hr to cover baseline losses - monitor lytes and cr - trend troponins as cr improves. I believe the trop is due to renal failure and sepsis. - medical management at this point as pt has sepsis. - give low dose bb's, cont asa, d/c plavix as pt has no cp - 75 min total care time
--- NOTE | 2018-04-19 15:14 | RAD ---
Date of service: 04/19/2018 HISTORY: sepsis COMPARISON: Portable chest 06/25/2017. FINDINGS: LUNGS: No active pulmonary disease. PLEURA: No significant pleural effusion identified, no pneumothorax apparent. CARDIOVASCULAR: Calcific atherosclerotic changes are seen related to the thoracic aorta. Normal cardiac size. No pulmonary vascular congestion. OSSEOUS STRUCTURES: No significant abnormalities. VISUALIZED UPPER ABDOMEN: Normal. OTHER FINDINGS: None. IMPRESSION: No interval acute cardiopulmonary disease appreciated.
[2018-04-19] MEDS ORDERED: Sodium Chloride 0.9% 500 ML IV ONE (15:36)
--- NOTE | 2018-04-19 15:41 | CARD ---
APPROVED REPORT Date of service: 04/19/2018 EKG Measurement Heart [id number] <Conclusion> Sinus tachycardia with frequent premature atrial complexes and with occasional premature ventricular complexes Nonspecific ST and T wave abnormality Abnormal ECG
[2018-04-19] MEDS ORDERED: Chlorhexidine Gluconate 1 APPL/PKT TP ONE (15:42)
[2018-04-19] MEDS ORDERED: Cefepime 1 GM in Sodium Chloride 0.9% 100 ML IVPB STA (16:04)
[2018-04-19 16:24] LABS: ALB/GLOB RATIO 0.8 (1.0-2.1)
--- NOTE | 2018-04-19 16:36 | PCM.RRT ---
[employer] Nurse Assessment - Situation [employer] Responder Arrival Time: 15:30 Location: Room Number: 407-1 [employer] Reason for Call: Hypotension [employer] Called By: RN - IV IV Inserted during [employer]ACHINE [employer]ER?: No - Respiratory Oxygen Delivery Method: Nasal Cannula Received Nebulizer Treatments: No Was the Patient Ventilated with Bag/Mask 100% O2?: No Secretions Suctioned?: No Was the Patient Intubated?: No Was the Patient Placed on a Ventilator?: No - Medication Medications Administered During [employer]: ns 500cc iv - Diagnostic Test Ordered EKG: Yes Chest X-Ray: No CT Scan: No - Stat Labs Ordered [employer] Stat Labs Ordered: CBC, BMP, TROPONIN, LACTIC ACID CPR started during [employer]ER?: No - Vital Signs Vital Signs: Rapid Response Vital Sign Blood Pressure 64/36 Pulse Rate 111 Respiratory Rate 22 Temperature 98.6 F Oxygen Saturation 93 - Sepsis Screen Part 1 Sepsis Screen Part 1: Hypotensive, Temperature over 100.6F - Time [employer] Ended Time [employer] Ended: 15:50 - Vital Signs at end of [employer] Vital Signs at end of [employer]: Rapid Response End Vital Sign Blood Pressure 70/46 Pulse Rate 102 Respiratory Rate 43 Temperature 100.4 F O2 Sat by Pulse Oximetry 90 - Recommendations [employer] Level of Care Recommendations: Transfer to ICU I.Reason for [employer] - A) Acute Change in Patient: Subjective: [employer] arrival time: 15:30 [employer] Location 407- [id number]: [employer] called by RN after patient found with low BP of 62/36. is a 77 y/o female with an extensive PMH that includes multiple hospital admissions due to Urosepsis, patient was admitted today with a recurrent UTI and sepsis, Acute renal failure, and Obstructing R. renal stone and R. Hydronephrosis. Also patient c/o chest tightness on admission and was found to have elevated troponins, likely secondary to demand ischemia resulting in an ACS episode. Patient received today treatment with aspirin and plavix. Patient is currently on IV antibiotics Ceftriaxone. During this encounter patient was noted very lethargic. VS on arrival to [employer]: HR 112, BP 62/36, repeat BP 78/46, RR 20, O2 sat 94% on 2 L NC, Fever-Temp 101F - Extremities Exam Additional comments: Constitutional Appears: Toxic, lethargic - Eye Exam Eye Exam: Normal appearance - ENT Exam ENT Exam: Mucous Membranes Dry - Respiratory Exam Respiratory Exam: Rales (Bilateral at lung bases). absent: Rhonchi, Wheezes - Cardiovascular Exam Cardiovascular Exam: Tachycardia, +S1, +S2. absent: Systolic Murmur - GI/Abdominal Exam GI & Abdominal Exam: Firm, Normal Bowel Sounds, Tenderness (Lower quadrants bilaterally) - Extremities Exam Extremities exam: Bilaterally pitting +2-3 up to mid shins, no erythema, diffusely tender to deep palpation - Skin Skin Exam: Diaphoretic, Pallor Plan - Assessment of Findings&Treatment Plan 77 y/o female with an extensive PMH that includes multiple hospital admissions due to Urosepsis, patient was admitted today with a recurrent UTI and sepsis, Acute renal failure, and Obstructing R. renal stone and R. Hydronephrosis. Also patient c/o chest tightness on admission today and was found to have elevated troponins, likely secondary to demand ischemia resulting in an ACS episode. Patient noted lethargic with severe low BP of 62/36 during [employer] at 3:30PM, Fever of 101.2F and HR 112 consistent with severe sepsis and septic shock. Plan: -CBC, BMP, lLactic acid, Troponins stat -EKG stat -ABG stat -Consult ID ordered -NS boluses initiated 500 Ml given open -Transferred to ICU in anticipation for management and start Vasopressors -Case discussed with ICU attending Dr Lagos: Vanco 1G IV stat and Cefepime IV 1 G stat
--- NOTE | 2018-04-19 17:23 | PCM.PROC ---
Procedures Attestation:: I certify that I have explained the specified Operation(s) or Procedure(s), risks, benefits and reasonable alternatives to the Patient and/or other person responsible. The opportunity was given to ask questions and all questions answered - Central Line Placement Right Femoral Triple Lumen Catheter Aseptic technique was employed throughout the procedure: Hand Hygiene done prior to procedure, Full sterile barriers (mask, hair cover, sterile gown, sterile gloves), Full body sterile drape, Chloraprep Antiseptic: 2 minute prep for Femoral CVP Time Out Performed: Yes Pt. Placed on Pulse Ox Monitor: Yes Central Line Prep: Chlorhexidine-Alcohol Combination Local Anesthesia Used: Lidocaine 1% Amount of Anesthesia Used (mls): 6 Ultrasound Used for Placement: Yes Central Line Lumen Inserted: triple Central Line Length: 16 cm Post Procedure: Sutured in Place, Good Blood Return, All Ports Aspirated, Flushed, Capped, Sterile Dressing Applied Secured by: Suture Post procedure dressing: Clear vapor permeable, Chlorhexidine disc (Biopatch) Post Procedure X-Ray: No Patient Tolerated Procedure: Well, No Complications Immediate Complications: None Additional Comments: right femoral central line placed for emergent access due to hypotension 2/2 to sepsis refractory to fluid therapy. Pt was transferred to the ICU for initiation of pressor therapy. Time out 16:00.
[2018-04-19 17:30] LABS: HEMOGLOBIN 9.6 g/dL (12.0-16.0); LYMPH # 0.7 K/uL (1.0-4.3); LYMPH % 2.2 % (20.0-40.0); MEAN CELL VOLUME 91.7 fl (81.0-99.0); MEAN CORPUSCULAR HEMOGLOBIN 28.9 pg (27.0-31.0); MEAN CORPUSCULAR HGB CONC 31.6 g/dL (33.0-37.0); MEAN PLATELET VOLUME 7.7 fl (7.2-11.7); MONO # 1.9 K/uL (0.0-0.8); MONO % 5.8 % (0.0-10.0); NEUT # 30.3 K/uL (1.8-7.0); NRBC % 0.1 % (0.0-0.0); RBC 3.31 Mil/uL (3.80-5.20); RED CELL DISTRIBUTION WIDTH 13.9 % (11.5-14.5)
--- NOTE | 2018-04-19 17:30 | CARD ---
APPROVED REPORT Date of service: 04/19/2018 EXAM: Two-dimensional and M-mode echocardiogram with Doppler and color Doppler. Other Information Quality : AverageRhythm : Tachycardia INDICATION Peripheral Edema 2D DIMENSIONS IVSd1.45 (0.7-1.1cm)LVDd4.53 (3.9-5.9cm) LVOT Diameter2.21 (1.8-2.4cm)PWd1.32 (0.7-1.1cm) IVSs1.41 (0.8-1.2cm)LVDs4.51 (2.5-4.0cm) FS (%) 0.4 %PWs1.35 (0.8-1.2cm) M-Mode DIMENSIONS Left Atrium (MM)4.31 (2.5-4.0cm)IVSd0.81 (0.7-1.1cm) Aortic Root3.03 (2.2-3.7cm)LVDd5.75 (4.0-5.6cm) Aortic Cusp Exc.2.22 (1.5-2.0cm)PWd0.97 (0.7-1.1cm) IVSs1.31 cmFS (%) 28 % LVDs4.16 (2.0-3.8cm)PWs1.44 cm Aortic Valve AoV Peak Ojjsjokk037.3cm/sAoV VTI17.1cmAO Peak GR.6mmHg LVOT Peak Edppggde28.4cm/sLVOT VTI15.12cmAO Mean GR.4mmHg ISAMAR (VMAX)1.20oz3RPH (VTI)1.63cm2 Mitral Valve MV E Hguveebo25.9cm/sMV DECEL ROIS210iiAC A Qmpebsle424.9cm/s MV AGW55zfA/A ratio0.8MVA (PHT)4.63cm2 TDI Lateral E' Peak V12.22cm/sMedial E' Peak V6.19cm/sE/Lateral E'6.9 E/Medial E'13.7 LEFT VENTRICLE The left ventricle is normal size. There is mild concentric left ventricular hypertrophy. The left ventricular systolic function is normal. The estimated ejection fraction is 55-60% No regional wall motion abnormalities noted.. Transmitral Doppler flow pattern is Grade I-abnormal relaxation pattern. No left ventricle thrombus noted on this study. There is no ventricular septal defect visualized. There is no left ventricular aneurysm. There is no mass noted in the left ventricle. RIGHT VENTRICLE The right ventricle is normal size. There is normal right ventricular wall thickness. The right ventricular systolic function is normal. ATRIA The left atrium is mildly dilated. The right atrium size is normal. The interatrial septum is intact with no evidence for an atrial septal defect. AORTIC VALVE The aortic valve is normal in structure. No aortic regurgitation is present. There is no aortic valvular stenosis. There is no aortic valvular vegetation. MITRAL VALVE The mitral valve is normal in structure. There is no evidence of mitral valve prolapse. There is no mitral valve stenosis. There is trace mitral valve regurgitation noted. TRICUSPID VALVE The tricuspid valve is normal in structure. There is no tricuspid valve regurgitation noted. There is no tricuspid valve prolapse or vegetation. There is no tricuspid valve stenosis. PULMONIC VALVE The pulmonary valve is normal in structure. There is no pulmonic valvular regurgitation. There is no pulmonic valvular stenosis. GREAT VESSELS The aortic root is normal in size. The ascending aorta is normal in size. The pulmonary artery is normal. The IVC is not well visualized. PERICARDIAL EFFUSION There is no pericardial effusion. There is no pleural effusion. <Conclusion> There is mild concentric left ventricular hypertrophy. The estimated ejection fraction is 55-60% Transmitral Doppler flow pattern is Grade I-abnormal relaxation pattern. The left atrium is mildly dilated. There is trace mitral valve regurgitation noted. There is no tricuspid valve regurgitation noted. The IVC is not well visualized.
[2018-04-19 17:38] LABS: INR 1.5; PROTHROMBIN TIME 17.1 Seconds (9.8-13.1)
[2018-04-19] MEDS ORDERED: Meropenem 1 GM in Sodium Chloride 0.9% 100 ML IVPB STA (18:28)
[2018-04-19] MEDS ORDERED: Sodium Chloride 0.9% 1,000 ML IV SCH ×2 (18:30→19:00)
--- NOTE | 2018-04-19 18:38 | CP.CCUPN ---
CCU Subjective - Physician Review Events Since Last Encounter (Free Text): 04/19/18 18:24 The patient was Seen/interviewed and examined by me at the bedside during ICU round, Medical records reviewed and Management issues were discussed and formulated with the house staff. Events reviewed Patient is a 77 Years old Female with past medical history of Anxiety, Arthritis, Bronchitis, Cardia Arrhythmia, Colonic Polyps, COPD, Depression, Fibromyalgia, Fractures, Gastritis, GERD, HTN, Osteoporosis, Pancreatitis, Peripheral Edema, Pneumonia, Chronic Pain (bilateral LE) She arrived to the emergency room complaining of two to three days of right sided back pain accompanied with urinary symptoms of hesitation and urgency. Abdomen CT: Renal stones bilaterally. Right 7.3mm obstructing stone in ureterovesical junction, R. Hypodronephrosis. Multiple non obstructing stones in left renal pelvis w/ mild left hydronephrosis Intially admitted to the Telemetry for management of Severe Sepsis likely from UTI secondary to obstructive uropathy Goddard cultres sent and started on Rocephin 2g daily Also urology consulted but today transferred to the ICU since [employer] PROCESS[employer]IST called for Hypotension with blood pressure of 64/36 IV fluid hydration noted with slight improvement of vital signs Patient found to be in septic shock, hypotensive Another liter of IV bolus initiated under urgent circumstances and complete sterile precautions Right femoral central line was placed Vasopressor with Levophed intiated CCU Objective - Vital Signs / Intake & Output Vital Signs (Last 4 hours): Vital Signs Temp Pulse Resp BP Pulse Ox 04/19/18 18:00 104 H 31 H 83/39 L 92 L 04/19/18 17:00 110 H 31 H 78/43 L 92 L 04/19/18 16:15 100.9 F H 105 H 38 H 66/30 L 90 L 04/19/18 16:00 100.9 F H 105 H 66/30 L 91 L Intake and Output (Last 8hrs): Intake & Output 04/19/18 04/19/18 04/19/18 06:59 14:59 22:59 Intake Total 8 Balance 8 Weight 215 lb 12.8 oz Intake: IV 8 - Physical Exam Physical Exam Limitations: Positive for: Altered Mental Status, Clinical Condition Head: Positive for: Atraumatic, Normocephalic Pupils: Positive for: PERRL Extroacular Muscles: Positive for: EOMI Conjunctiva: Positive for: Normal. Negative for: Injected, Icteric Nose (Internal): Positive for: Normal Inspection Neck: Positive for: Normal Range of Motion, Trachea Midline. Negative for: Meningeal Signs, MIDLINE TENDERNESS, Paraspinal Tenderness, JVD, Lymphadenopathy, Bruit, Other Respiratory/Chest: Positive for: Good Air Exchange, Rhonchi, Tachypneic. N egative for: Clear to Auscultation, Wheezes, Rales Cardiovascular: Positive for: Regular Rate and Rhythm, Normal S1, S2. Negative for: Murmurs Abdomen: Positive for: Distention, Normal Bowel Sounds. Negative for: Tenderness Back: Positive for: CVA Tenderness Psychiatric: Positive for: Alert, Oriented x 3 - Medications Active Medications: Active Medications Generic Name Dose Route Start Last Admin Trade Name Freq PRN Reason Stop Dose Admin Acetaminophen 650 mg 04/19/18 00:29 04/19/18 04:57 Tylenol 325mg Tab PO 650 mg Q6 PRN Administration Fever >100.4 F Acetaminophen 650 mg 04/19/18 01:57 Tylenol 325mg Tab PO Q6 PRN Pain, Mild (1-3) Acetaminophen 650 mg 04/19/18 15:45 04/19/18 15:35 Tylenol 650 Mg Supp VT 650 mg ONCE PRN Administration Fever >100.4 F Aspirin 325 mg 04/19/18 07:15 04/19/18 11:01 Ecotrin PO Not Given DAILY [facility] Atorvastatin Calcium 40 mg 04/19/18 09:00 04/19/18 11:05 Lipitor PO 40 mg DAILY PATTI Administration Docusate Sodium 100 mg 04/19/18 01:17 Colace PO TID PRN Constipation Duloxetine HCl 60 mg 04/19/18 22:00 Cymbalta PO HS PATTI Glycerin 1 sup 04/19/18 00:39 Glycerin Adult Suppository VT ONCE PRN constipation Sodium Chloride 1,000 mls @ 75 mls/hr 04/19/18 00:30 04/19/18 14:15 Sodium Chloride 0.9% IV 75 mls/hr .[id number] PATTI Administration Ceftriaxone Sodium 2 gm/ 100 mls @ 100 mls/hr 04/19/18 22:00 Sodium Chloride IVPB DAILY [facility] Protocol Norepinephrine Bitartrate 8 mg 258 mls @ 4.84 mls/hr 04/19/18 16:07 04/19/18 18:13 / Dextrose IV 04/20/18 16:06 10 mcg/min .Q24H ONE 19.35 mls/hr Titration Protocol 2.5 MCG/MIN Magnesium Oxide 400 mg 04/19/18 09:00 04/19/18 17:34 Mag-Ox PO Not Given BID [facility] Multivitamins/Minerals 1 tab 04/19/18 09:00 04/19/18 09:18 Therapeutic-M Tab PO 1 tab DAILY PATTI Administration Ondansetron HCl 4 mg 04/19/18 00:29 Zofran Inj IVP Q6 PRN Nausea/Vomiting Oxybutynin Chloride 5 mg 04/19/18 09:00 Ditropan Tab PO TID [facility] Pantoprazole Sodium 40 mg 04/19/18 09:00 04/19/18 11:07 Protonix Ec Tab PO 40 mg DAILY PATTI Administration Potassium Phos/Sodium Phos 1 pkt 04/19/18 09:00 04/19/18 17:35 Neutra-Phos PO Not Given QID [facility] Sennosides 8.6 mg 04/19/18 01:17 Senokot Tab PO BID PRN Constipation Simethicone 80 mg 04/19/18 01:17 Mylicon Chew Tab PO Q6 PRN Gas relief Tamsulosin HCl 0.4 mg 04/19/18 01:45 04/19/18 09:19 Flomax PO 0.4 mg DAILY PATTI Administration - Patient Studies Lab Studies: Microbiology Studies 04/18/18 23:04 Blood Culture - Preliminary Blood-Venous Gram Positive Cocci Gram Stain - Final Lab Studies 04/19/18 04/19/18 04/19/18 Range/Units 17:25 15:40 15:40 WBC 33.0 H D (4.8-10.8) K/uL RBC 3.31 L (3.80-5.20) Mil/uL Hgb 9.6 L (12.0-16.0) g/dL Hct 30.4 L (34.0-47.0) % MCV 91.7 (81.0-99.0) fl MCH 28.9 (27.0-31.0) pg MCHC 31.6 L (33.0-37.0) g/dL RDW 13.9 (11.5-14.5) % Plt Count 230 (130-400) K/uL MPV 7.7 (7.2-11.7) fl Neut % (Auto) 92.0 H (50.0-75.0) % Lymph % (Auto) 2.2 L (20.0-40.0) % [place] % (Auto) 5.8 (0.0-10.0) % Eos % (Auto) 0.0 (0.0-4.0) % Baso % (Auto) 0.0 (0.0-2.0) % Neut # (Auto) 30.3 H (1.8-7.0) K/uL Lymph # (Auto) 0.7 L (1.0-4.3) K/uL [place] # (Auto) 1.9 H (0.0-0.8) K/uL Eos # (Auto) 0.0 (0.0-0.7) K/uL Baso # (Auto) 0.0 (0.0-0.2) K/uL Total Counted Cancelled Neutrophils % (Manual) Cancelled (42-75) % Band Neutrophils % Cancelled (0-2) % Lymphocytes % (Manual) Cancelled (20-50) % Reactive Lymphs % Cancelled Monocytes % (Manual) Cancelled (0-10) % Eosinophils % (Manual) Cancelled (0-7) % Basophils % (Manual) Cancelled Metamyelocytes % Cancelled (0-0) % Myelocytes % Cancelled Promyelocytes % Cancelled Blast Cells % Cancelled Plasma Cell % (Manual) Cancelled Nucleated RBC % Cancelled Hypersegmented Polys Cancelled Smudge Cells Cancelled Toxic Granulation Cancelled Dohle Bodies Cancelled Alissa Rods Cancelled Platelet Estimate Cancelled (NORMAL) Plt Clumps, EDTA Cancelled Large Platelets Cancelled Giant Platelets Cancelled RBC Morphology Cancelled Polychromasia Cancelled Hypochromasia (manual) Cancelled Poikilocytosis (manual Cancelled Basophilic Stippling Cancelled Anisocytosis (manual) Cancelled Microcytosis (manual) Cancelled Macrocytosis (manual) Cancelled Spherocytes Cancelled Sickle Cells Cancelled Target Cells Cancelled Tear Drop Cells Cancelled Ovalocytes Cancelled Stomatocytes Cancelled Helmet Cells Cancelled [place] Bodies Cancelled [place] Cells Cancelled Acanthocytes (Spur) Cancelled Rouleaux Cancelled Schistocytes Cancelled PT 17.1 H (9.8-13.1) Seconds INR 1.5 APTT (25.6-37.1) Seconds Sodium 137 (132-148) mmol/l Potassium 4.1 (3.6-5.0) MMOL/L Chloride 106 (98-107) mmol/L Carbon Dioxide 21 L (22-30) mmol/L Anion Gap 14 (10-20) BUN 34 H (7-17) mg/dl Creatinine 2.4 H (0.7-1.2) mg/dl Est GFR ( Amer) 24 Est GFR (Non-Af Amer) 19 Random Glucose 114 H (65-105) mg/dL Hemoglobin A1c (4.2-6.5) % Lactic Acid (0.7-2.1) mmol/L Calcium 8.0 L (8.4-10.2) mg/dL Phosphorus (2.5-4.5) mg/dl Magnesium (1.6-2.3) MG/DL Total Bilirubin 0.6 (0.2-1.3) mg/dl Direct Bilirubin (0.0-0.4) mg/ml AST 35 (14-36) U/L ALT 16 (9-52) U/L Alkaline Phosphatase 95 (38-126) U/L Troponin I (0.00-0.120) ng/mL NT-Pro-B Natriuret Pep (0-900) pg/ml Total Protein 6.5 (6.3-8.2) G/DL Albumin 3.0 L (3.5-5.0) g/dL Globulin 3.6 (2.2-3.9) gm/dL Albumin/Globulin Ratio 0.8 L (1.0-2.1) Triglycerides (0-149) mg/DL Cholesterol (0-199) mg/dL LDL Cholesterol Direct (0-129) mg/dL HDL Cholesterol (30-70) MG/DL Lipase (23-300) U/L Urine Color (YELLOW) Urine Clarity (Clear) Urine pH (5.0-8.0) Ur Specific [place] (1.003-1.030) Urine Protein (NEGATIVE) mg/dL Urine Glucose (UA) (NEGATIVE) mg/dL Urine Ketones (NEGATIVE) mg/dL Urine Blood (NEGATIVE) Urine Nitrate (NEGATIVE) Urine Bilirubin (NEGATIVE) Urine Urobilinogen (0.2-1.0) mg/dL Ur Leukocyte Esterase (Negative) Marco A/uL Urine RBC (Auto) (0-3) /hpf Urine Microscopic WBC (0-5) /hpf Ur Squamous Epith Cells (0-5) /hpf Urine Bacteria (<OCC) Influenza Typ A,B (EIA) (NEGATIVE) 04/19/18 04/19/18 04/19/18 Range/Units 15:40 15:40 09:20 WBC (4.8-10.8) K/uL RBC (3.80-5.20) Mil/uL Hgb (12.0-16.0) g/dL Hct (34.0-47.0) % MCV (81.0-99.0) fl MCH (27.0-31.0) pg MCHC (33.0-37.0) g/dL RDW (11.5-14.5) % Plt Count (130-400) K/uL MPV (7.2-11.7) fl Neut % (Auto) (50.0-75.0) % Lymph % (Auto) (20.0-40.0) % [place] % (Auto) (0.0-10.0) % Eos % (Auto) (0.0-4.0) % Baso % (Auto) (0.0-2.0) % Neut # (Auto) (1.8-7.0) K/uL Lymph # (Auto) (1.0-4.3) K/uL [place] # (Auto) (0.0-0.8) K/uL Eos # (Auto) (0.0-0.7) K/uL Baso # (Auto) (0.0-0.2) K/uL Total Counted Neutrophils % (Manual) (42-75) % Band Neutrophils % (0-2) % Lymphocytes % (Manual) (20-50) % Reactive Lymphs % Monocytes % (Manual) (0-10) % Eosinophils % (Manual) (0-7) % Basophils % (Manual) Metamyelocytes % (0-0) % Myelocytes % Promyelocytes % Blast Cells % Plasma Cell % (Manual) Nucleated RBC % Hypersegmented Polys Smudge Cells Toxic Granulation Dohle Bodies Alissa Rods Platelet Estimate (NORMAL) Plt Clumps, EDTA Large Platelets Giant Platelets RBC Morphology Polychromasia Hypochromasia (manual) Poikilocytosis (manual Basophilic Stippling Anisocytosis (manual) Microcytosis (manual) Macrocytosis (manual) Spherocytes Sickle Cells Target Cells Tear Drop Cells Ovalocytes Stomatocytes Helmet Cells [place] Bodies [place]ana Cells Acanthocytes (Spur) Rouleaux Schistocytes PT (9.8-13.1) Seconds INR APTT (25.6-37.1) Seconds Sodium (132-148) mmol/l Potassium (3.6-5.0) MMOL/L Chloride (98-107) mmol/L Carbon Dioxide (22-30) mmol/L Anion Gap (10-20) BUN (7-17) mg/dl Creatinine (0.7-1.2) mg/dl Est GFR ( Amer) Est GFR (Non-Af Amer) Random Glucose (65-105) mg/dL Hemoglobin A1c (4.2-6.5) % Lactic Acid 3.4 H (0.7-2.1) mmol/L Calcium (8.4-10.2) mg/dL Phosphorus (2.5-4.5) mg/dl Magnesium (1.6-2.3) MG/DL Total Bilirubin (0.2-1.3) mg/dl Direct Bilirubin (0.0-0.4) mg/ml AST (14-36) U/L ALT (9-52) U/L Alkaline Phosphatase (38-126) U/L Troponin I 0.9890 H* 1.0100 H* (0.00-0.120) ng/mL NT-Pro-B Natriuret Pep (0-900) pg/ml Total Protein (6.3-8.2) G/DL Albumin (3.5-5.0) g/dL Globulin (2.2-3.9) gm/dL Albumin/Globulin Ratio (1.0-2.1) Triglycerides 133 D (0-149) mg/DL Cholesterol 135 (0-199) mg/dL LDL Cholesterol Direct 72 (0-129) mg/dL HDL Cholesterol 23 L (30-70) MG/DL Lipase (23-300) U/L Urine Color (YELLOW) Urine Clarity (Clear) Urine pH (5.0-8.0) Ur Specific [place] (1.003-1.030) Urine Protein (NEGATIVE) mg/dL Urine Glucose (UA) (NEGATIVE) mg/dL Urine Ketones (NEGATIVE) mg/dL Urine Blood (NEGATIVE) Urine Nitrate (NEGATIVE) Urine Bilirubin (NEGATIVE) Urine Urobilinogen (0.2-1.0) mg/dL Ur Leukocyte Esterase (Negative) Marco A/uL Urine RBC (Auto) (0-3) /hpf Urine Microscopic WBC (0-5) /hpf Ur Squamous Epith Cells (0-5) /hpf Urine Bacteria (<OCC) Influenza Typ A,B (EIA) (NEGATIVE) 04/19/18 04/19/18 04/19/18 Range/Units 04:45 04:30 04:30 WBC (4.8-10.8) K/uL RBC (3.80-5.20) Mil/uL Hgb (12.0-16.0) g/dL Hct (34.0-47.0) % MCV (81.0-99.0) fl MCH (27.0-31.0) pg MCHC (33.0-37.0) g/dL RDW (11.5-14.5) % Plt Count (130-400) K/uL MPV (7.2-11.7) fl Neut % (Auto) (50.0-75.0) % Lymph % (Auto) (20.0-40.0) % [place] % (Auto) (0.0-10.0) % Eos % (Auto) (0.0-4.0) % Baso % (Auto) (0.0-2.0) % Neut # (Auto) (1.8-7.0) K/uL Lymph # (Auto) (1.0-4.3) K/uL [place] # (Auto) (0.0-0.8) K/uL Eos # (Auto) (0.0-0.7) K/uL Baso # (Auto) (0.0-0.2) K/uL Total Counted Neutrophils % (Manual) (42-75) % Band Neutrophils % (0-2) % Lymphocytes % (Manual) (20-50) % Reactive Lymphs % Monocytes % (Manual) (0-10) % Eosinophils % (Manual) (0-7) % Basophils % (Manual) Metamyelocytes % (0-0) % Myelocytes % Promyelocytes % Blast Cells % Plasma Cell % (Manual) Nucleated RBC % Hypersegmented Polys Smudge Cells Toxic Granulation Dohle Bodies Alissa Rods Platelet Estimate (NORMAL) Plt Clumps, EDTA Large Platelets Giant Platelets RBC Morphology Polychromasia Hypochromasia (manual) Poikilocytosis (manual Basophilic Stippling Anisocytosis (manual) Microcytosis (manual) Macrocytosis (manual) Spherocytes Sickle Cells Target Cells Tear Drop Cells Ovalocytes Stomatocytes Helmet Cells [place] Bodies [place] Cells Acanthocytes (Spur) Rouleaux Schistocytes PT 13.6 H (9.8-13.1) Seconds INR 1.2 APTT 33.9 (25.6-37.1) Seconds Sodium (132-148) mmol/l Potassium (3.6-5.0) MMOL/L Chloride (98-107) mmol/L Carbon Dioxide (22-30) mmol/L Anion Gap (10-20) BUN (7-17) mg/dl Creatinine (0.7-1.2) mg/dl Est GFR ( Amer) Est GFR (Non-Af Amer) Random Glucose (65-105) mg/dL Hemoglobin A1c 6.4 (4.2-6.5) % Lactic Acid 2.1 (0.7-2.1) mmol/L Calcium (8.4-10.2) mg/dL Phosphorus (2.5-4.5) mg/dl Magnesium (1.6-2.3) MG/DL Total Bilirubin (0.2-1.3) mg/dl Direct Bilirubin (0.0-0.4) mg/ml AST (14-36) U/L ALT (9-52) U/L Alkaline Phosphatase (38-126) U/L Troponin I (0.00-0.120) ng/mL NT-Pro-B Natriuret Pep (0-900) pg/ml Total Protein (6.3-8.2) G/DL Albumin (3.5-5.0) g/dL Globulin (2.2-3.9) gm/dL Albumin/Globulin Ratio (1.0-2.1) Triglycerides (0-149) mg/DL Cholesterol (0-199) mg/dL LDL Cholesterol Direct (0-129) mg/dL HDL Cholesterol (30-70) MG/DL Lipase (23-300) U/L Urine Color (YELLOW) Urine Clarity (Clear) Urine pH (5.0-8.0) Ur Specific [place] (1.003-1.030) Urine Protein (NEGATIVE) mg/dL Urine Glucose (UA) (NEGATIVE) mg/dL Urine Ketones (NEGATIVE) mg/dL Urine Blood (NEGATIVE) Urine Nitrate (NEGATIVE) Urine Bilirubin (NEGATIVE) Urine Urobilinogen (0.2-1.0) mg/dL Ur Leukocyte Esterase (Negative) Marco A/uL Urine RBC (Auto) (0-3) /hpf Urine Microscopic WBC (0-5) /hpf Ur Squamous Epith Cells (0-5) /hpf Urine Bacteria (<OCC) Influenza Typ A,B (EIA) (NEGATIVE) 04/19/18 04/19/18 04/19/18 Range/Units 04:30 04:30 01:17 WBC 20.5 H (4.8-10.8) K/uL RBC 3.82 (3.80-5.20) Mil/uL Hgb 11.3 L (12.0-16.0) g/dL Hct 34.9 (34.0-47.0) % MCV 91.4 (81.0-99.0) fl MCH 29.5 (27.0-31.0) pg MCHC 32.3 L (33.0-37.0) g/dL RDW 13.6 (11.5-14.5) % Plt Count 268 (130-400) K/uL MPV 7.7 (7.2-11.7) fl Neut % (Auto) 96.5 H (50.0-75.0) % Lymph % (Auto) 1.4 L (20.0-40.0) % [place] % (Auto) 1.6 (0.0-10.0) % Eos % (Auto) 0.0 (0.0-4.0) % Baso % (Auto) 0.5 (0.0-2.0) % Neut # (Auto) 19.8 H (1.8-7.0) K/uL Lymph # (Auto) 0.3 L (1.0-4.3) K/uL [place] # (Auto) 0.3 (0.0-0.8) K/uL Eos # (Auto) 0.0 (0.0-0.7) K/uL Baso # (Auto) 0.1 (0.0-0.2) K/uL Total Counted Neutrophils % (Manual) 86 H (42-75) % Band Neutrophils % 6 H (0-2) % Lymphocytes % (Manual) 2 L (20-50) % Reactive Lymphs % Monocytes % (Manual) 5 (0-10) % Eosinophils % (Manual) (0-7) % Basophils % (Manual) Metamyelocytes % 1 H (0-0) % Myelocytes % Promyelocytes % Blast Cells % Plasma Cell % (Manual) Nucleated RBC % Hypersegmented Polys Smudge Cells Toxic Granulation Present Dohle Bodies Alissa Rods Platelet Estimate Normal (NORMAL) Plt Clumps, EDTA Large Platelets Giant Platelets RBC Morphology Polychromasia Hypochromasia (manual) Slight Poikilocytosis (manual Basophilic Stippling Anisocytosis (manual) Microcytosis (manual) Macrocytosis (manual) Spherocytes Sickle Cells Target Cells Tear Drop Cells Ovalocytes Slight Stomatocytes Helmet Cells [place] Bodies [place] Cells Acanthocytes (Spur) Rouleaux Schistocytes PT (9.8-13.1) Seconds INR APTT (25.6-37.1) Seconds Sodium 138 (132-148) mmol/l Potassium 4.0 (3.6-5.0) MMOL/L Chloride 103 (98-107) mmol/L Carbon Dioxide 22 (22-30) mmol/L Anion Gap 17 (10-20) BUN 26 H (7-17) mg/dl Creatinine 1.5 H (0.7-1.2) mg/dl Est GFR ( Amer) 41 Est GFR (Non-Af Amer) 33 Random Glucose 152 H (65-105) mg/dL Hemoglobin A1c (4.2-6.5) % Lactic Acid (0.7-2.1) mmol/L Calcium 8.2 L (8.4-10.2) mg/dL Phosphorus 1.7 L (2.5-4.5) mg/dl Magnesium 1.4 L (1.6-2.3) MG/DL Total Bilirubin 0.6 (0.2-1.3) mg/dl Direct Bilirubin (0.0-0.4) mg/ml AST 21 (14-36) U/L ALT 15 (9-52) U/L Alkaline Phosphatase 97 (38-126) U/L Troponin I 0.5880 H* (0.00-0.120) ng/mL NT-Pro-B Natriuret Pep 596 (0-900) pg/ml Total Protein 7.2 (6.3-8.2) G/DL Albumin 3.4 L D (3.5-5.0) g/dL Globulin 3.8 (2.2-3.9) gm/dL Albumin/Globulin Ratio 0.9 L (1.0-2.1) Triglycerides (0-149) mg/DL Cholesterol (0-199) mg/dL LDL Cholesterol Direct (0-129) mg/dL HDL Cholesterol (30-70) MG/DL Lipase (23-300) U/L Urine Color (YELLOW) Urine Clarity (Clear) Urine pH (5.0-8.0) Ur Specific [place] (1.003-1.030) Urine Protein (NEGATIVE) mg/dL Urine Glucose (UA) (NEGATIVE) mg/dL Urine Ketones (NEGATIVE) mg/dL Urine Blood (NEGATIVE) Urine Nitrate (NEGATIVE) Urine Bilirubin (NEGATIVE) Urine Urobilinogen (0.2-1.0) mg/dL Ur Leukocyte Esterase (Negative) Marco A/uL Urine RBC (Auto) (0-3) /hpf Urine Microscopic WBC (0-5) /hpf Ur Squamous Epith Cells (0-5) /hpf Urine Bacteria (<OCC) Influenza Typ A,B (EIA) (NEGATIVE) 04/19/18 04/19/18 04/18/18 Range/Units 00:46 00:13 23:18 WBC (4.8-10.8) K/uL RBC (3.80-5.20) Mil/uL Hgb (12.0-16.0) g/dL Hct (34.0-47.0) % MCV (81.0-99.0) fl MCH (27.0-31.0) pg MCHC (33.0-37.0) g/dL RDW (11.5-14.5) % Plt Count (130-400) K/uL MPV (7.2-11.7) fl Neut % (Auto) (50.0-75.0) % Lymph % (Auto) (20.0-40.0) % [place] % (Auto) (0.0-10.0) % Eos % (Auto) (0.0-4.0) % Baso % (Auto) (0.0-2.0) % Neut # (Auto) (1.8-7.0) K/uL Lymph # (Auto) (1.0-4.3) K/uL [place] # (Auto) (0.0-0.8) K/uL Eos # (Auto) (0.0-0.7) K/uL Baso # (Auto) (0.0-0.2) K/uL Total Counted Neutrophils % (Manual) (42-75) % Band Neutrophils % (0-2) % Lymphocytes % (Manual) (20-50) % Reactive Lymphs % Monocytes % (Manual) (0-10) % Eosinophils % (Manual) (0-7) % Basophils % (Manual) Metamyelocytes % (0-0) % Myelocytes % Promyelocytes % Blast Cells % Plasma Cell % (Manual) Nucleated RBC % Hypersegmented Polys Smudge Cells Toxic Granulation Dohle Bodies Alissa Rods Platelet Estimate (NORMAL) Plt Clumps, EDTA Large Platelets Giant Platelets RBC Morphology Polychromasia Hypochromasia (manual) Poikilocytosis (manual Basophilic Stippling Anisocytosis (manual) Microcytosis (manual) Macrocytosis (manual) Spherocytes Sickle Cells Target Cells Tear Drop Cells Ovalocytes Stomatocytes Helmet Cells [place] Bodies [place]ana Cells Acanthocytes (Spur) Rouleaux Schistocytes PT (9.8-13.1) Seconds INR APTT (25.6-37.1) Seconds Sodium (132-148) mmol/l Potassium (3.6-5.0) MMOL/L Chloride (98-107) mmol/L Carbon Dioxide (22-30) mmol/L Anion Gap (10-20) BUN (7-17) mg/dl Creatinine (0.7-1.2) mg/dl Est GFR ( Amer) Est GFR (Non-Af Amer) Random Glucose (65-105) mg/dL Hemoglobin A1c (4.2-6.5) % Lactic Acid 4.2 H* (0.7-2.1) mmol/L Calcium (8.4-10.2) mg/dL Phosphorus (2.5-4.5) mg/dl Magnesium (1.6-2.3) MG/DL Total Bilirubin 0.5 (0.2-1.3) mg/dl Direct Bilirubin 0.3 (0.0-0.4) mg/ml AST 30 (14-36) U/L ALT 13 (9-52) U/L Alkaline Phosphatase 129 H (38-126) U/L Troponin I < 0.0120 (0.00-0.120) ng/mL NT-Pro-B Natriuret Pep (0-900) pg/ml Total Protein 9.3 H (6.3-8.2) G/DL Albumin 4.4 (3.5-5.0) g/dL Globulin 4.9 H (2.2-3.9) gm/dL Albumin/Globulin Ratio 0.9 L (1.0-2.1) Triglycerides (0-149) mg/DL Cholesterol (0-199) mg/dL LDL Cholesterol Direct (0-129) mg/dL HDL Cholesterol (30-70) MG/DL Lipase 31 (23-300) U/L Urine Color (YELLOW) Urine Clarity (Clear) Urine pH (5.0-8.0) Ur Specific [place] (1.003-1.030) Urine Protein (NEGATIVE) mg/dL Urine Glucose (UA) (NEGATIVE) mg/dL Urine Ketones (NEGATIVE) mg/dL Urine Blood (NEGATIVE) Urine Nitrate (NEGATIVE) Urine Bilirubin (NEGATIVE) Urine Urobilinogen (0.2-1.0) mg/dL Ur Leukocyte Esterase (Negative) Marco A/uL Urine RBC (Auto) (0-3) /hpf Urine Microscopic WBC (0-5) /hpf Ur Squamous Epith Cells (0-5) /hpf Urine Bacteria (<OCC) Influenza Typ A,B (EIA) (NEGATIVE) 04/18/18 04/18/18 04/18/18 Range/Units 22:04 21:40 21:40 WBC (4.8-10.8) K/uL RBC (3.80-5.20) Mil/uL Hgb (12.0-16.0) g/dL Hct (34.0-47.0) % MCV (81.0-99.0) fl MCH (27.0-31.0) pg MCHC (33.0-37.0) g/dL RDW (11.5-14.5) % Plt Count (130-400) K/uL MPV (7.2-11.7) fl Neut % (Auto) (50.0-75.0) % Lymph % (Auto) (20.0-40.0) % [place]oup % (Auto) (0.0-10.0) % Eos % (Auto) (0.0-4.0) % Baso % (Auto) (0.0-2.0) % Neut # (Auto) (1.8-7.0) K/uL Lymph # (Auto) (1.0-4.3) K/uL Loup # (Auto) (0.0-0.8) K/uL Eos # (Auto) (0.0-0.7) K/uL Baso # (Auto) (0.0-0.2) K/uL Total Counted Neutrophils % (Manual) (42-75) % Band Neutrophils % (0-2) % Lymphocytes % (Manual) (20-50) % Reactive Lymphs % Monocytes % (Manual) (0-10) % Eosinophils % (Manual) (0-7) % Basophils % (Manual) Metamyelocytes % (0-0) % Myelocytes % Promyelocytes % Blast Cells % Plasma Cell % (Manual) Nucleated RBC % Hypersegmented Polys Smudge Cells Toxic Granulation Dohle Bodies Alissa Rods Platelet Estimate (NORMAL) Plt Clumps, EDTA Large Platelets Giant Platelets RBC Morphology Polychromasia Hypochromasia (manual) Poikilocytosis (manual Basophilic Stippling Anisocytosis (manual) Microcytosis (manual) Macrocytosis (manual) Spherocytes Sickle Cells Target Cells Tear Drop Cells Ovalocytes Stomatocytes Helmet Cells [place] Bodies Alana Cells Acanthocytes (Spur) Rouleaux Schistocytes PT (9.8-13.1) Seconds INR APTT (25.6-37.1) Seconds Sodium 141 (132-148) mmol/l Potassium 4.5 (3.6-5.0) MMOL/L Chloride 96 L (98-107) mmol/L Carbon Dioxide 28 (22-30) mmol/L Anion Gap 22 H (10-20) BUN 29 H (7-17) mg/dl Creatinine 1.4 H (0.7-1.2) mg/dl Est GFR ( Amer) 44 Est GFR (Non-Af Amer) 36 Random Glucose 203 H (65-105) mg/dL Hemoglobin A1c (4.2-6.5) % Lactic Acid (0.7-2.1) mmol/L Calcium 9.4 (8.4-10.2) mg/dL Phosphorus (2.5-4.5) mg/dl Magnesium (1.6-2.3) MG/DL Total Bilirubin 0.5 (0.2-1.3) mg/dl Direct Bilirubin (0.0-0.4) mg/ml AST 27 (14-36) U/L ALT 12 (9-52) U/L Alkaline Phosphatase 128 H D (38-126) U/L Troponin I (0.00-0.120) ng/mL NT-Pro-B Natriuret Pep (0-900) pg/ml Total Protein 9.3 H (6.3-8.2) G/DL Albumin 4.4 (3.5-5.0) g/dL Globulin 4.8 H (2.2-3.9) gm/dL Albumin/Globulin Ratio 0.9 L (1.0-2.1) Triglycerides (0-149) mg/DL Cholesterol (0-199) mg/dL LDL Cholesterol Direct (0-129) mg/dL HDL Cholesterol (30-70) MG/DL Lipase (23-300) U/L Urine Color Straw (YELLOW) Urine Clarity Slighty-cloudy (Clear) Urine pH 7.0 (5.0-8.0) Ur Specific [place] 1.010 (1.003-1.030) Urine Protein 30 (NEGATIVE) mg/dL Urine Glucose (UA) 50 (NEGATIVE) mg/dL Urine Ketones Negative (NEGATIVE) mg/dL Urine Blood Moderate (NEGATIVE) Urine Nitrate Negative (NEGATIVE) Urine Bilirubin Negative (NEGATIVE) Urine Urobilinogen 0.2-1.0 (0.2-1.0) mg/dL Ur Leukocyte Esterase Mod (Negative) Marco A/uL Urine RBC (Auto) 56 H (0-3) /hpf Urine Microscopic WBC 60 H (0-5) /hpf Ur Squamous Epith Cells 2 (0-5) /hpf Urine Bacteria Rare (<OCC) Influenza Typ A,B (EIA) Negative for flu a/b (NEGATIVE) 04/18/18 Range/Units 21:40 WBC 18.7 H D (4.8-10.8) K/uL RBC 4.32 (3.80-5.20) Mil/uL Hgb 12.8 (12.0-16.0) g/dL Hct 39.9 (34.0-47.0) % MCV 92.3 (81.0-99.0) fl MCH 29.7 (27.0-31.0) pg MCHC 32.1 L (33.0-37.0) g/dL RDW 13.7 (11.5-14.5) % Plt Count 347 (130-400) K/uL MPV 7.7 (7.2-11.7) fl Neut % (Auto) 88.7 H (50.0-75.0) % Lymph % (Auto) 4.0 L (20.0-40.0) % [place]oup % (Auto) 6.9 (0.0-10.0) % Eos % (Auto) 0.2 (0.0-4.0) % Baso % (Auto) 0.2 (0.0-2.0) % Neut # (Auto) 16.6 H (1.8-7.0) K/uL Lymph # (Auto) 0.8 L (1.0-4.3) K/uL [place] # (Auto) 1.3 H (0.0-0.8) K/uL Eos # (Auto) 0.0 (0.0-0.7) K/uL Baso # (Auto) 0.0 (0.0-0.2) K/uL Total Counted Neutrophils % (Manual) 87 H (42-75) % Band Neutrophils % 1 (0-2) % Lymphocytes % (Manual) 3 L (20-50) % Reactive Lymphs % Monocytes % (Manual) 8 (0-10) % Eosinophils % (Manual) 1 (0-7) % Basophils % (Manual) Metamyelocytes % (0-0) % Myelocytes % Promyelocytes % Blast Cells % Plasma Cell % (Manual) Nucleated RBC % Hypersegmented Polys Smudge Cells Toxic Granulation Dohle Bodies Alissa Rods Platelet Estimate Normal (NORMAL) Plt Clumps, EDTA Large Platelets Giant Platelets RBC Morphology Polychromasia Hypochromasia (manual) Poikilocytosis (manual Basophilic Stippling Anisocytosis (manual) Slight Microcytosis (manual) Macrocytosis (manual) Spherocytes Sickle Cells Target Cells Tear Drop Cells Slight Ovalocytes Stomatocytes Helmet Cells [place] Bodies [place] Cells Acanthocytes (Spur) Rouleaux Schistocytes PT (9.8-13.1) Seconds INR APTT (25.6-37.1) Seconds Sodium (132-148) mmol/l Potassium (3.6-5.0) MMOL/L Chloride (98-107) mmol/L Carbon Dioxide (22-30) mmol/L Anion Gap (10-20) BUN (7-17) mg/dl Creatinine (0.7-1.2) mg/dl Est GFR ( Amer) Est GFR (Non-Af Amer) Random Glucose (65-105) mg/dL Hemoglobin A1c (4.2-6.5) % Lactic Acid (0.7-2.1) mmol/L Calcium (8.4-10.2) mg/dL Phosphorus (2.5-4.5) mg/dl Magnesium (1.6-2.3) MG/DL Total Bilirubin (0.2-1.3) mg/dl Direct Bilirubin (0.0-0.4) mg/ml AST (14-36) U/L ALT (9-52) U/L Alkaline Phosphatase (38-126) U/L Troponin I (0.00-0.120) ng/mL NT-Pro-B Natriuret Pep (0-900) pg/ml Total Protein (6.3-8.2) G/DL Albumin (3.5-5.0) g/dL Globulin (2.2-3.9) gm/dL Albumin/Globulin Ratio (1.0-2.1) Triglycerides (0-149) mg/DL Cholesterol (0-199) mg/dL LDL Cholesterol Direct (0-129) mg/dL HDL Cholesterol (30-70) MG/DL Lipase (23-300) U/L Urine Color (YELLOW) Urine Clarity (Clear) Urine pH (5.0-8.0) Ur Specific [place] (1.003-1.030) Urine Protein (NEGATIVE) mg/dL Urine Glucose (UA) (NEGATIVE) mg/dL Urine Ketones (NEGATIVE) mg/dL Urine Blood (NEGATIVE) Urine Nitrate (NEGATIVE) Urine Bilirubin (NEGATIVE) Urine Urobilinogen (0.2-1.0) mg/dL Ur Leukocyte Esterase (Negative) Marco A/uL Urine RBC (Auto) (0-3) /hpf Urine Microscopic WBC (0-5) /hpf Ur Squamous Epith Cells (0-5) /hpf Urine Bacteria (<OCC) Influenza Typ A,B (EIA) (NEGATIVE) Laboratory Results - last 24 hr 04/18/18 04/18/18 04/18/18 21:40 21:40 21:40 WBC 18.7 H D RBC 4.32 Hgb 12.8 Hct 39.9 MCV 92.3 MCH 29.7 MCHC 32.1 L RDW 13.7 Plt Count 347 MPV 7.7 Neut % (Auto) 88.7 H Lymph % (Auto) 4.0 L [place] % (Auto) 6.9 Eos % (Auto) 0.2 Baso % (Auto) 0.2 Neut # (Auto) 16.6 H Lymph # (Auto) 0.8 L [place] # (Auto) 1.3 H Eos # (Auto) 0.0 Baso # (Auto) 0.0 Total Counted Neutrophils % (Manual) 87 H Band Neutrophils % 1 Lymphocytes % (Manual) 3 L Reactive Lymphs % Monocytes % (Manual) 8 Eosinophils % (Manual) 1 Basophils % (Manual) Metamyelocytes % Myelocytes % Promyelocytes % Blast Cells % Plasma Cell % (Manual) Nucleated RBC % Hypersegmented Polys Smudge Cells Toxic Granulation [place]ohle Bodies Alissa Rods Platelet Estimate Normal Plt Clumps, EDTA Large Platelets Giant Platelets RBC Morphology Polychromasia Hypochromasia (manual) Poikilocytosis (manual Basophilic Stippling Anisocytosis (manual) Slight Microcytosis (manual) Macrocytosis (manual) Spherocytes Sickle Cells Target Cells Tear Drop Cells Slight Ovalocytes Stomatocytes Helmet Cells [place] Bodies [place] Cells Acanthocytes (Spur) Rouleaux Schistocytes PT INR APTT Sodium 141 Potassium 4.5 Chloride 96 L Carbon Dioxide 28 Anion Gap 22 H BUN 29 H Creatinine 1.4 H Est GFR ( Amer) 44 Est GFR (Non-Af Amer) 36 Random Glucose 203 H Hemoglobin A1c Lactic Acid Calcium 9.4 Phosphorus Magnesium Total Bilirubin 0.5 Direct Bilirubin AST 27 ALT 12 Alkaline Phosphatase 128 H D Troponin I NT-Pro-B Natriuret Pep Total Protein 9.3 H Albumin 4.4 Globulin 4.8 H Albumin/Globulin Ratio 0.9 L Triglycerides Cholesterol LDL Cholesterol Direct HDL Cholesterol Lipase Urine Color Urine Clarity Urine pH Ur Specific [place] Urine Protein Urine Glucose (UA) Urine Ketones Urine Blood Urine Nitrate Urine Bilirubin Urine Urobilinogen Ur Leukocyte Esterase Urine RBC (Auto) Urine Microscopic WBC Ur Squamous Epith Cells Urine Bacteria Influenza Typ A,B (EIA) Negative for flu a/b 04/18/18 04/18/18 04/19/18 22:04 23:18 00:13 WBC RBC Hgb Hct MCV MCH MCHC RDW Plt Count MPV Neut % (Auto) Lymph % (Auto) [place] % (Auto) Eos % (Auto) Baso % (Auto) Neut # (Auto) Lymph # (Auto) [place] # (Auto) Eos # (Auto) Baso # (Auto) Total Counted Neutrophils % (Manual) Band Neutrophils % Lymphocytes % (Manual) Reactive Lymphs % Monocytes % (Manual) Eosinophils % (Manual) Basophils % (Manual) Metamyelocytes % Myelocytes % Promyelocytes % Blast Cells % Plasma Cell % (Manual) Nucleated RBC % Hypersegmented Polys Smudge Cells Toxic Granulation [place]ohle Bodies Alissa Rods Platelet Estimate Plt Clumps, EDTA Large Platelets Giant Platelets RBC Morphology Polychromasia Hypochromasia (manual) Poikilocytosis (manual Basophilic Stippling Anisocytosis (manual) Microcytosis (manual) Macrocytosis (manual) Spherocytes Sickle Cells Target Cells Tear Drop Cells Ovalocytes Stomatocytes Helmet Cells [place] Bodies [place] Cells Acanthocytes (Spur) Rouleaux Schistocytes PT INR APTT Sodium Potassium Chloride Carbon Dioxide Anion Gap BUN Creatinine Est GFR ( Amer) Est GFR (Non-Af Amer) Random Glucose Hemoglobin A1c Lactic Acid 4.2 H* Calcium Phosphorus Magnesium Total Bilirubin Direct Bilirubin AST ALT Alkaline Phosphatase Troponin I < 0.0120 NT-Pro-B Natriuret Pep Total Protein Albumin Globulin Albumin/Globulin Ratio Triglycerides Cholesterol LDL Cholesterol Direct HDL Cholesterol Lipase Urine Color Straw Urine Clarity Slighty-cloudy Urine pH 7.0 Ur Specific [place] 1.010 Urine Protein 30 Urine Glucose (UA) 50 Urine Ketones Negative Urine Blood Moderate Urine Nitrate Negative Urine Bilirubin Negative Urine Urobilinogen 0.2-1.0 Ur Leukocyte Esterase Mod Urine RBC (Auto) 56 H Urine Microscopic WBC 60 H Ur Squamous Epith Cells 2 Urine Bacteria Rare Influenza Typ A,B (EIA) 04/19/18 04/19/18 04/19/18 00:46 01:17 04:30 WBC RBC Hgb Hct MCV MCH MCHC RDW Plt Count MPV Neut % (Auto) Lymph % (Auto) [place] % (Auto) Eos % (Auto) Baso % (Auto) Neut # (Auto) Lymph # (Auto) [place] # (Auto) Eos # (Auto) Baso # (Auto) Total Counted Neutrophils % (Manual) Band Neutrophils % Lymphocytes % (Manual) Reactive Lymphs % Monocytes % (Manual) Eosinophils % (Manual) Basophils % (Manual) Metamyelocytes % Myelocytes % Promyelocytes % Blast Cells % Plasma Cell % (Manual) Nucleated RBC % Hypersegmented Polys Smudge Cells Toxic Granulation [place]oh[place] Bodies Alissa Rods Platelet Estimate Plt Clumps, EDTA Large Platelets Giant Platelets RBC Morphology Polychromasia Hypochromasia (manual) Poikilocytosis (manual Basophilic Stippling Anisocytosis (manual) Microcytosis (manual) Macrocytosis (manual) Spherocytes Sickle Cells Target Cells Tear Drop Cells Ovalocytes Stomatocytes Helmet Cells [place] Bodies [place] Cells Acanthocytes (Spur) Rouleaux Schistocytes PT INR APTT Sodium 138 Potassium 4.0 Chloride 103 Carbon Dioxide 22 Anion Gap 17 BUN 26 H Creatinine 1.5 H Est GFR ( Amer) 41 Est GFR (Non-Af Amer) 33 Random Glucose 152 H Hemoglobin A1c Lactic Acid Calcium 8.2 L Phosphorus 1.7 L Magnesium 1.4 L Total Bilirubin 0.5 0.6 Direct Bilirubin 0.3 AST 30 21 ALT 13 15 Alkaline Phosphatase 129 H 97 Troponin I 0.5880 H* NT-Pro-B Natriuret Pep 596 Total Protein 9.3 H 7.2 Albumin 4.4 3.4 L D Globulin 4.9 H 3.8 Albumin/Globulin Ratio 0.9 L 0.9 L Triglycerides Cholesterol LDL Cholesterol Direct HDL Cholesterol Lipase 31 Urine Color Urine Clarity Urine pH Ur Specific [place] Urine Protein Urine Glucose (UA) Urine Ketones Urine Blood Urine Nitrate Urine Bilirubin Urine Urobilinogen Ur Leukocyte Esterase Urine RBC (Auto) Urine Microscopic WBC Ur Squamous Epith Cells Urine Bacteria Influenza Typ A,B (EIA) 04/19/18 04/19/18 04/19/18 04:30 04:30 04:30 WBC 20.5 H RBC 3.82 Hgb 11.3 L Hct 34.9 MCV 91.4 MCH 29.5 MCHC 32.3 L RDW 13.6 Plt Count 268 MPV 7.7 Neut % (Auto) 96.5 H Lymph % (Auto) 1.4 L [place] % (Auto) 1.6 Eos % (Auto) 0.0 Baso % (Auto) 0.5 Neut # (Auto) 19.8 H Lymph # (Auto) 0.3 L [place] # (Auto) 0.3 Eos # (Auto) 0.0 Baso # (Auto) 0.1 Total Counted Neutrophils % (Manual) 86 H Band Neutrophils % 6 H Lymphocytes % (Manual) 2 L Reactive Lymphs % Monocytes % (Manual) 5 Eosinophils % (Manual) Basophils % (Manual) Metamyelocytes % 1 H Myelocytes % Promyelocytes % Blast Cells % Plasma Cell % (Manual) Nucleated RBC % Hypersegmented Polys Smudge Cells Toxic Granulation Present [place] Bodies Alissa Rods Platelet Estimate Normal Plt Clumps, EDTA Large Platelets Giant Platelets RBC Morphology Polychromasia Hypochromasia (manual) Slight Poikilocytosis (manual Basophilic Stippling Anisocytosis (manual) Microcytosis (manual) Macrocytosis (manual) Spherocytes Sickle Cells Target Cells Tear Drop Cells Ovalocytes Slight Stomatocytes Helmet Cells [place] Bodies [place] Cells Acanthocytes (Spur) Rouleaux Schistocytes PT 13.6 H INR 1.2 APTT 33.9 Sodium Potassium Chloride Carbon Dioxide Anion Gap BUN Creatinine Est GFR ( Amer) Est GFR (Non-Af Amer) Random Glucose Hemoglobin A1c Lactic Acid 2.1 Calcium Phosphorus Magnesium Total Bilirubin Direct Bilirubin AST ALT Alkaline Phosphatase Troponin I NT-Pro-B Natriuret Pep Total Protein Albumin Globulin Albumin/Globulin Ratio Triglycerides Cholesterol LDL Cholesterol Direct HDL Cholesterol Lipase Urine Color Urine Clarity Urine pH Ur Specific [place] Urine Protein Urine Glucose (UA) Urine Ketones Urine Blood Urine Nitrate Urine Bilirubin Urine Urobilinogen Ur Leukocyte Esterase Urine RBC (Auto) Urine Microscopic WBC Ur Squamous Epith Cells Urine Bacteria Influenza Typ A,B (EIA) 04/19/18 04/19/18 04/19/18 04:45 09:20 15:40 WBC RBC Hgb Hct MCV MCH MCHC RDW Plt Count MPV Neut % (Auto) Lymph % (Auto) [place] % (Auto) Eos % (Auto) Baso % (Auto) Neut # (Auto) Lymph # (Auto) [place] # (Auto) Eos # (Auto) Baso # (Auto) Total Counted Neutrophils % (Manual) Band Neutrophils % Lymphocytes % (Manual) Reactive Lymphs % Monocytes % (Manual) Eosinophils % (Manual) Basophils % (Manual) Metamyelocytes % Myelocytes % Promyelocytes % Blast Cells % Plasma Cell % (Manual) Nucleated RBC % Hypersegmented Polys Smudge Cells Toxic Granulation [place] Bodies Alissa Rods Platelet Estimate Plt Clumps, EDTA Large Platelets Giant Platelets RBC Morphology Polychromasia Hypochromasia (manual) Poikilocytosis (manual Basophilic Stippling Anisocytosis (manual) Microcytosis (manual) Macrocytosis (manual) Spherocytes Sickle Cells Target Cells Tear Drop Cells Ovalocytes Stomatocytes Helmet Cells [place] Bodies [place] Cells Acanthocytes (Spur) Rouleaux Schistocytes PT INR APTT Sodium Potassium Chloride Carbon Dioxide Anion Gap BUN Creatinine Est GFR ( Amer) Est GFR (Non-Af Amer) Random Glucose Hemoglobin A1c 6.4 Lactic Acid Calcium Phosphorus Magnesium Total Bilirubin Direct Bilirubin AST ALT Alkaline Phosphatase Troponin I 1.0100 H* 0.9890 H* NT-Pro-B Natriuret Pep Total Protein Albumin Globulin Albumin/Globulin Ratio Triglycerides 133 D Cholesterol 135 LDL Cholesterol Direct 72 HDL Cholesterol 23 L Lipase Urine Color Urine Clarity Urine pH Ur Specific [place] Urine Protein Urine Glucose (UA) Urine Ketones Urine Blood Urine Nitrate Urine Bilirubin Urine Urobilinogen Ur Leukocyte Esterase Urine RBC (Auto) Urine Microscopic WBC Ur Squamous Epith Cells Urine Bacteria Influenza Typ A,B (EIA) 04/19/18 04/19/18 04/19/18 15:40 15:40 15:40 WBC 33.0 H D RBC 3.31 L Hgb 9.6 L Hct 30.4 L MCV 91.7 MCH 28.9 MCHC 31.6 L RDW 13.9 Plt Count 230 MPV 7.7 Neut % (Auto) 92.0 H Lymph % (Auto) 2.2 L [place] % (Auto) 5.8 Eos % (Auto) 0.0 Baso % (Auto) 0.0 Neut # (Auto) 30.3 H Lymph # (Auto) 0.7 L [place] # (Auto) 1.9 H Eos # (Auto) 0.0 Baso # (Auto) 0.0 Total Counted Cancelled Neutrophils % (Manual) Cancelled Band Neutrophils % Cancelled Lymphocytes % (Manual) Cancelled Reactive Lymphs % Cancelled Monocytes % (Manual) Cancelled Eosinophils % (Manual) Cancelled Basophils % (Manual) Cancelled Metamyelocytes % Cancelled Myelocytes % Cancelled Promyelocytes % Cancelled Blast Cells % Cancelled Plasma Cell % (Manual) Cancelled Nucleated RBC % Cancelled Hypersegmented Polys Cancelled Smudge Cells Cancelled Toxic Granulation Cancelled Dohle Bodies Cancelled Alissa Rods Cancelled Platelet Estimate Cancelled Plt Clumps, EDTA Cancelled Large Platelets Cancelled Giant Platelets Cancelled RBC Morphology Cancelled Polychromasia Cancelled Hypochromasia (manual) Cancelled Poikilocytosis (manual Cancelled Basophilic Stippling Cancelled Anisocytosis (manual) Cancelled Microcytosis (manual) Cancelled Macrocytosis (manual) Cancelled Spherocytes Cancelled Sickle Cells Cancelled Target Cells Cancelled Tear Drop Cells Cancelled Ovalocytes Cancelled Stomatocytes Cancelled Helmet Cells Cancelled [place] Bodies Cancelled [place] Cells Cancelled Acanthocytes (Spur) Cancelled Rouleaux Cancelled Schistocytes Cancelled PT INR APTT Sodium 137 Potassium 4.1 Chloride 106 Carbon Dioxide 21 L Anion Gap 14 BUN 34 H Creatinine 2.4 H Est GFR ( Amer) 24 Est GFR (Non-Af Amer) 19 Random Glucose 114 H Hemoglobin A1c Lactic Acid 3.4 H Calcium 8.0 L Phosphorus Magnesium Total Bilirubin 0.6 Direct Bilirubin AST 35 ALT 16 Alkaline Phosphatase 95 Troponin I NT-Pro-B Natriuret Pep Total Protein 6.5 Albumin 3.0 L Globulin 3.6 Albumin/Globulin Ratio 0.8 L Triglycerides Cholesterol LDL Cholesterol Direct HDL Cholesterol Lipase Urine Color Urine Clarity Urine pH Ur Specific [place] Urine Protein Urine Glucose (UA) Urine Ketones Urine Blood Urine Nitrate Urine Bilirubin Urine Urobilinogen Ur Leukocyte Esterase Urine RBC (Auto) Urine Microscopic WBC Ur Squamous Epith Cells Urine Bacteria Influenza Typ A,B (EIA) 03/04/19 17:25 WBC RBC Hgb Hct MCV MCH MCHC RDW Plt Count MPV Neut % (Auto) Lymph % (Auto) [place] % (Auto) Eos % (Auto) Baso % (Auto) Neut # (Auto) Lymph # (Auto) [place] # (Auto) Eos # (Auto) Baso # (Auto) Total Counted Neutrophils % (Manual) Band Neutrophils % Lymphocytes % (Manual) Reactive Lymphs % Monocytes % (Manual) Eosinophils % (Manual) Basophils % (Manual) Metamyelocytes % Myelocytes % Promyelocytes % Blast Cells % Plasma Cell % (Manual) Nucleated RBC % Hypersegmented Polys Smudge Cells Toxic Granulation Dohle Bodies Alissa Rods Platelet Estimate Plt Clumps, EDTA Large Platelets Giant Platelets RBC Morphology Polychromasia Hypochromasia (manual) Poikilocytosis (manual Basophilic Stippling Anisocytosis (manual) Microcytosis (manual) Macrocytosis (manual) Spherocytes Sickle Cells Target Cells Tear Drop Cells Ovalocytes Stomatocytes Helmet Cells [place] Bodies [place] Cells Acanthocytes (Spur) Rouleaux Schistocytes PT 17.1 H INR 1.5 APTT Sodium Potassium Chloride Carbon Dioxide Anion Gap BUN Creatinine Est GFR ( Amer) Est GFR (Non-Af Amer) Random Glucose Hemoglobin A1c Lactic Acid Calcium Phosphorus Magnesium Total Bilirubin Direct Bilirubin AST ALT Alkaline Phosphatase Troponin I NT-Pro-B Natriuret Pep Total Protein Albumin Globulin Albumin/Globulin Ratio Triglycerides Cholesterol LDL Cholesterol Direct HDL Cholesterol Lipase Urine Color Urine Clarity Urine pH Ur Specific [place] Urine Protein Urine Glucose (UA) Urine Ketones Urine Blood Urine Nitrate Urine Bilirubin Urine Urobilinogen Ur Leukocyte Esterase Urine RBC (Auto) Urine Microscopic WBC Ur Squamous Epith Cells Urine Bacteria Influenza Typ A,B (EIA) Radiology Impressions: Radiology Impressions Abdomen/Pelvis CT 04/18/18 23:36 IMPRESSION: 1. Pattern suspicious for potential right pyelonephritis with stable left perinephric reaction identified. Multiple intrarenal calculi identified bilaterally as discussed above. No definite obstructive uropathy bilaterally. 2. Prominent gallbladder distention again evident without other acute sinus that would suggest cholecystitis. Dilated biliary tree is difficult to compare due lack images contrast. Ultrasonography may be useful for follow-up. 3. Chronic pancreatitis reiterated. 4. Likely constipation. Clinically correlate further. 5. End-stage right hip osteoarthritis as discussed above. Concordant preliminary report from [facility], 04/19/2018 1:23 a.m.. Extremity Ultrasound 04/19/18 02:28 IMPRESSION: No evidence of deep venous thrombosis.No significant interval change compared to the prior examination(s). Chest X-Ray 04/19/18 07:00 IMPRESSION: No interval acute cardiopulmonary disease appreciated. EKG/Cardiology Studies: Cardiology / EKG Studies 04/19/18 EKG [ELECTROCARDIOGRAM] Stat Comment: Mode Of Transportation: Reason For Exam: elevated troponin EKG [ELECTROCARDIOGRAM] Stat Comment: Mode Of Transportation: Reason For Exam: elevated troponin Review of Systems - Respiratory Respiratory: absent: As Per HPI, Cough, Dyspnea, Hemoptysis, Dyspnea on Exertion, Wheezing, Snoring, Stridor, Pain on Inspiration, Chest Congestion, Excessive Mucous Production, Change in Mucous Color, Pain with Coughing, Other, UNREMARKABLE - Gastrointestinal Gastrointestinal: absent: As Per HPI, Abdominal Pain, Belching, Bloating, Change in Bowel Habits, Change in Stool Character, Coffee Ground Emesis, Constipation, Cramping, Diarrhea, Dyspepsia, Dysphagia, Early Satiety, Excessive Flatus, Fecal Incontinence, Heartburn, Hematemesis, Hematochezia, Loose Stools, Melena, Nausea, Odynophagia, Temesmus, Vomiting, Other, UNREMARKABLE Critical Care Progress Note - Extremities/Vascular Does the Patient have a Central Venous Catheter?: Yes Does the Patient need a Central Venous Catheter?: Yes Does the Patient have a [place] Catheter?: Yes Does the Patient need a [place] Catheter?: Yes - Nutrition Nutrition: Nutrition Category Date Time Status NPO Diet [DIET] Diets 04/19/18 Breakfast Active Assessment/Plan (1) Septic shock Current Visit: Yes Status: Acute Priority: High (2) ARF (acute renal failure) Current Visit: Yes Status: Acute Priority: High (3) Tachycardia Current Visit: Yes Status: Acute Priority: High (4) Nephrolithiasis Current Visit: Yes Status: Acute Priority: High (5) Hydronephrosis Current Visit: Yes Status: Acute Priority: High - Assessment and Plan (Free Text) Assessment: Patient admitted to the intensive care unit with hypotension from septic shock The source of infection likely urinary tract infection secondary to obstructive uropathy Transfer to the ICU for hemodynamic monitoring Continue IV hydration and volume resuscitation Maintain map [id number] Start vasopressors, central line placed in the right femoral vein Optimize blood pressure and maintain end-organ perfusion Pain cultures sent Continue IV vancomycin and IV Cefapime ID consult, urology and cardiology consult GI/DVT PPX Stress Ulcer prophylaxis with Protonix 40 mg IVP QD DVT prophylaxis with SCD Code Status: Full code Total critical care time 42 minutes
[2018-04-19] MEDS ORDERED: Phenylephrine 60 MG in Sodium Chloride 0.9% 250 ML IV SCH (19:00)
[2018-04-19] MEDS ORDERED: cefTRIAXone 2 GM in Sodium Chloride 0.9% 100 ML IVPB SCH (22:00)
[2018-04-19] MEDS ORDERED: Lactated Ringer's 1,000 ML IV SCH (22:00)
--- NOTE | 2018-04-19 23:06 | CON ---
DATE: 04/19/2018 HISTORY OF PRESENT ILLNESS: This is a 77-year-old female patient whom I was called to evaluate because of renal colic. According to the patient, this is a first time she has developed such a condition and when she came in through the emergency room, a CT scan was initially performed. The results of which indicate that the patient has bilateral rather large renal pelvic stones, one on the left is potentially larger; however, the right one appears also to be causing more reactive inflammatory process around the kidney itself. The patient has an elevated white blood cell count on admission, it was 18.7 which was on 04/18/2018. Today, it went up to 20.5, suggestive of some level of sepsis. Her chemistry shows a BUN of 26 and creatinine of 1.5. Urinalysis shows large amount of microscopic white cells and moderate amount of microscopic bleeding in the UA. PHYSICAL EXAMINATION: MUSCULOSKELETAL: The patient is complaining of right sided flank pain. On palpation of the right flank, the patient has some increased pain over the left side. She has a difficult time moving in bed. In overall, she has a significant difficulty in ambulating. She again says that this is the first time she has had this event of renal colic, but the CT suggests that these have been probably present for quite sometime. VITAL SIGNS: Looking at the vital signs, the patient has a temp of 101.9, blood pressure is 97/59, pulse rate is 103. ASSESSMENT AND PLAN: I suggested to the patient in evaluating these parameters that it is best if we can try to control her sepsis with intravenous antibiotics and which she has been started on Rocephin at this time. At the moment, she is showing some signs of improvement. We probably then advised to have a cystoscopy with a stent placed on the right side, which is her more symptomatic side and then proceed immediately from there to lithotripsy as the stone is high in the renal pelvis making other forms of obstruction more complicated for the patient. She seems to understand the direction of treatment. I did ask if she has a family member who visits her, she said her son. I left my contact information with her to give her son, so that I could explain to him the anticipated plan. Patti Ellis MD
[2018-04-20] MEDS: Meropenem 500 MG in Sodium Chloride 0.9% 100 ML IVPB SCH ×3 (00:52→16:03)
[2018-04-20] MEDS ORDERED: Metoprolol 1 mg/ml Inj IVP STA (03:16)
[2018-04-20 05:43] LABS: BASO % 0.1 % (0.0-2.0); EOS # 0.1 K/uL (0.0-0.7); EOS % 0.4 % (0.0-4.0); HEMOGLOBIN 9.7 g/dL (12.0-16.0); LYMPH # 0.5 K/uL (1.0-4.3); LYMPH % 2.2 % (20.0-40.0); MEAN CELL VOLUME 90.9 fl (81.0-99.0); MEAN CORPUSCULAR HEMOGLOBIN 29.7 pg (27.0-31.0); MEAN CORPUSCULAR HGB CONC 32.6 g/dL (33.0-37.0); MEAN PLATELET VOLUME 8.6 fl (7.2-11.7); MONO % 4.1 % (0.0-10.0); NEUT # 21.6 K/uL (1.8-7.0); NEUT % 93.2 % (50.0-75.0); RBC 3.26 Mil/uL (3.80-5.20); RED CELL DISTRIBUTION WIDTH 14.1 % (11.5-14.5); WHITE BLOOD COUNT 23.2 K/uL (4.8-10.8)
[2018-04-20 07:11] LABS: ALB/GLOB RATIO 0.8 (1.0-2.1); ALBUMIN 2.9 g/dL (3.5-5.0)
--- NOTE | 2018-04-20 07:12 | CP.PCM.PN ---
Subjective - Date & Time of Evaluation Date of Evaluation: 04/20/18 Time of Evaluation: 07:12 - Subjective Subjective: pt seen and evaluated at bedside this morning. pt required intubation prior to encounter due to impending respiratory failure. Seen intubated, lying in bed, HOB elevated, NAD. Pt is awake and responds to commands. Febrile. Vent settings: rate 16, Vt 0.45, FIO2: 50%, and PEEP of 5. BP improved to 106/61 but pt remains on Levophed 7.5mcg/min drip with concomitant tachycardia. Lactic acid 3.2 today. WBC 23. Further review of systems unatainable due to intubation. Objective - Vital Signs/Intake and Output Vital Signs (last 24 hours): Temp Pulse Resp BP Pulse Ox 98.5 F 120 H 40 H 95/44 L 91 L 04/20/18 04:00 04/20/18 06:00 04/20/18 06:00 04/20/18 06:00 04/20/18 06:00 Intake and Output: 04/20/18 04/20/18 06:59 18:59 Intake Total 2076 Output Total 200 Balance 1876 - Medications Medications: Current Medications Acetaminophen (Tylenol 325mg Tab) 650 mg PO Q6 PRN PRN Reason: Fever >100.4 F Last Admin: 04/19/18 04:57 Dose: 650 mg Acetaminophen (Tylenol 325mg Tab) 650 mg PO Q6 PRN PRN Reason: Pain, Mild (1-3) Acetaminophen (Tylenol 650 Mg Supp) 650 mg LA ONCE PRN PRN Reason: Fever >100.4 F Last Admin: 04/19/18 15:35 Dose: 650 mg Aspirin (Ecotrin) 325 mg PO DAILY [facility] Last Admin: 04/19/18 11:01 Dose: Not Given Atorvastatin Calcium (Lipitor) 40 mg PO DAILY [facility] Last Admin: 04/19/18 11:05 Dose: 40 mg Docusate Sodium (Colace) 100 mg PO TID PRN PRN Reason: Constipation Duloxetine HCl (Cymbalta) 60 mg PO HS [facility] Last Admin: 04/19/18 21:14 Dose: 60 mg Glycerin (Glycerin Adult Suppository) 1 sup LA ONCE PRN PRN Reason: constipation Meropenem 500 mg/ Sodium (Chloride) 100 mls @ 100 mls/hr IVPB Q8 [facility]; Protocol Last Admin: 04/20/18 00:52 Dose: 100 mls/hr Lactated Ringer's (Lactated Ringer's) 1,000 mls @ 100 mls/hr IV .Q10H [facility] Stop: 04/20/18 07:59 Last Admin: 04/19/18 22:47 Dose: 100 mls/hr Norepinephrine Bitartrate 4 mg (/ Dextrose) 254 mls @ 9.53 mls/hr IV .Q24H [facility]; Protocol Last Admin: 04/20/18 07:10 Dose: 2.5 mcg/min, 9.53 mls/hr Magnesium Oxide (Mag-Ox) 400 mg PO BID [facility] Last Admin: 04/19/18 17:34 Dose: Not Given Multivitamins/Minerals (Therapeutic-M Tab) 1 tab PO DAILY [facility] Last Admin: 04/19/18 09:18 Dose: 1 tab Ondansetron HCl (Zofran Inj) 4 mg IVP Q6 PRN PRN Reason: Nausea/Vomiting Last Admin: 04/19/18 22:46 Dose: 4 mg Oxybutynin Chloride (Ditropan Tab) 5 mg PO TID [facility] Pantoprazole Sodium (Protonix Ec Tab) 40 mg PO DAILY [facility] Last Admin: 04/19/18 11:07 Dose: 40 mg Potassium Phos/Sodium Phos (Neutra-Phos) 1 pkt PO QID [facility] Last Admin: 04/19/18 21:13 Dose: 1 pkt Sennosides (Senokot Tab) 8.6 mg PO BID PRN PRN Reason: Constipation Last Admin: 04/19/18 22:46 Dose: 8.6 mg Simethicone (Mylicon Chew Tab) 80 mg PO Q6 PRN PRN Reason: Gas relief Tamsulosin HCl (Flomax) 0.4 mg PO DAILY [facility] Last Admin: 04/19/18 09:19 Dose: 0.4 mg - Labs Labs: 04/20/18 05:00 04/20/18 05:00 PT 17.1 Seconds (9.8-13.1) H 04/19/18 17:25 INR 1.5 04/19/18 17:25 APTT 33.9 Seconds (25.6-37.1) 04/19/18 04:30 - Constitutional Appears: No Acute Distress, Other (intubated ) - Head Exam Head Exam: ATRAUMATIC - Eye Exam Eye Exam: EOMI, PERRL - Respiratory Exam Respiratory Exam: Clear to Ausculation Bilateral. absent: Decreased Breath Sounds, Rales, Rhonchi, Wheezes, NORMAL BREATHING PATTERN (intubated ) - Cardiovascular Exam Cardiovascular Exam: Tachycardia, RRR, +S1, +S2. absent: Bradycardia, Diastolic murmur, Irregular Rhythm, JVD, Rubs, Murmur - GI/Abdominal Exam GI & Abdominal Exam: Soft, Normal Bowel Sounds. absent: Tenderness - Extremities Exam Extremities Exam: Pedal Edema. absent: Calf Tenderness, Tenderness - Additional Findings Additional findings: right femoral triple lumen, functioning, C/D/I Assessment and Plan - Assessment and Plan (Free Text) Assessment: 77 y/o female patient with PMH frequent UTI, urinary incontinence , HTN,depression with anxiety, chronic constipation ,renal stones, CKD stage III admitted for sepsis secondary to UTI. She was started on Rocephin 2 g IV initially , cultures were sent and urology consulted CYTOMET[employer] TECHNOLOGIST was called for hypo tension on 04/19, Patient transferred to ICU for sepsis with shock , started on IVF and Levophed, WBC trended up to 33 k with lactate 3.4. ID consulted and antibiotics changed to Meropenem IV, Intubated in ICU on 04/20 for impending respiratory failure. Pt is currently intubated, on levophed drip and IV abx. Plan: Sepsis with septic shock -on Levophed drip 7.5mcg/min -hold HTN meds -blood/urine cx: gram negative rods, follow up sensitives -lactic acid: 3.2 -Meropenem -Vancomycin 1gm QD -IV fluid therapy -intubated Acute Respiratory Failure: -intubated -current setting: Rate 16, Vt: 0.45, FIO2 50%, PEEP 5 -daily ABG/shock panel -CXR daily Pyelonephritis -f/u cultures: gram negative rods -ID consulted . -Continue Meropenem IV -c/w Vanco 1 G IV -f/u ID recommendations -urology on board, recommends waiting for stabilization prior Acute Renal Injury -BUN/Cr: 40/2.4 -GFR: 19 -continue Fluids and pressors. -daily CMP -CT abdomen showed: 1. Pattern suspicious for potential right pyelonephritis with stable left perinephric reaction identified. Multiple intrarenal calculi identified bilaterally as discussed above. No definite obstructive uropathy bilaterally. Troponemia -Echo showed LVF with EF 55 % -trending down -as per cardio likely 2/2 to combination of septic shock and YASEMIN History Aflutter -cardiac monitoring -cardiology on board Foreign Bodies: -right femoral triple lumen Prophylaxis -HOB elevation -Protonix -lovenox 30mg SC QD
[2018-04-20 07:22] LABS: TROPONIN I 0.7 ng/mL (0.00-0.120)
[2018-04-20] MEDS ORDERED: Propofol 10 mg/ml 0 MG/0 ML VIAL ONE (07:41)
[2018-04-20] MEDS ORDERED: Midazolam 2 MG/2 ML VIAL ONE ×2 (07:41→07:43)
[2018-04-20 07:43] LABS: ABG ALLEN TEST YES; ARTERIAL BLOOD GAS HCO3 22.5 mmol/L (21-28); ARTERIAL BLOOD GAS HEMOGLOBIN 10.6 g/dL (11.7-17.4); ARTERIAL BLOOD GAS O2 CAPACITY 14.9 mL/dL (16-24); ARTERIAL BLOOD GAS O2 CONTENT 14.1 ML/dL (15-23); ARTERIAL BLOOD GAS O2 SAT 94.7 % (95-98); ARTERIAL BLOOD GAS PCO2 26 mm/Hg (35-45); ARTERIAL BLOOD GAS PH 7.48 (7.35-7.45); ARTERIAL BLOOD GAS PO2 65 mm/Hg (80-100); ARTERIAL BLOOD GAS TCO2 20.2 mmol/L (22-28)
[2018-04-20] MEDS ORDERED: Etomidate 20 mg/10ml Inj IV ONE (07:48)
[2018-04-20] MEDS ORDERED: Succinylcholine 200 mg/10 ml Inj IV ONE (07:50)
--- NOTE | 2018-04-20 08:05 | PCM.ANES ---
Anesthesia Emergent Intubation - Diagnosis Working Diagnosis:: Ventilatory dependent respiratory failure - Consult Reason for Consult:: Emergent Intubation - Intubation Attempts Previous Number of Intubation Attempts:: 1 By:: Gatito - Pre-Intubation Vital Signs Blood Pressure: 87/56 Heart Rate: 121 Respiratory Rate: 20 O2 Sat: 93 FIO2: 40 Oxygen Delivery Method: Ambu-Bag Level Of Consciousness: Somnolent Intubation Meds Given: Etomidate - Airway Management Oropharyngeal Area Suctioned: No PreOxygenation: 100 Inhalation: No Rapid Sequence: No Cricoid Pressure: Yes Possible Aspiration: No - Method of Intubation ETT Size: 7.0 Lipline@: 20 Easy: Yes Atramatic: Yes - Intubation Devices Dennis Blade Size Used: 3 Dianna Forcepts Used: No [place] Scope Used: No Fiber Optic Scope: No - Placement Confirmation Breath Sounds Present & Equal Bilaterally: Yes Gurgling Sounds Not Audible at Epigastrum: Yes Positive EtCO2: Yes Portable CXR: Yes Recommendations: Ventilator - Post-Intubation Vital Signs Blood Pressure: 99/62 Heart Rate: 120 Respiratory Rate: 10 O2 Sat: 100 FIO2: 100
--- NOTE | 2018-04-20 08:47 | RAD ---
Date of service: 04/20/2018 HISTORY: Pneumonia COMPARISON: Portable chest 04/19/2018. FINDINGS: LUNGS: Patient has been intubated with endotracheal tube terminating 4 cm above the nabeel. Increased density at the right apex is felt to be artifactual and no definitive infiltrate is felt to be present bilaterally. Clinically correlate nevertheless. PLEURA: No pneumothorax bilaterally. No right pleural effusion. Trace left pleural effusion appears to blunt the left costophrenic sulcus. CARDIOVASCULAR: Calcific atherosclerotic changes are seen related to the thoracic aorta. Normal cardiac size. No pulmonary vascular congestion. OSSEOUS STRUCTURES: No significant abnormalities. VISUALIZED UPPER ABDOMEN: Normal. OTHER FINDINGS: None. IMPRESSION: Artifacts felt to cause the opacity at the right apex in this patient rotated toward the right. Endotracheal intubation is identified in good apparent position. Trace left pleural effusion questioned.
--- NOTE | 2018-04-20 09:33 | CP.PCM.CON ---
History of Present Illness - History of Present Illness History of Present Illness: Infectious disease consultation History obtained from the medical chart and from the hospitalist as patient is intubated and unable to communicate currently in the ICU. 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 Patient also has a history of chronic kidney disease. On admission patient was found to have a fever of 102 lactate of 3.1 and leukocytosis of 33,000. + Ua and CT abd with pyelo but as per report no hydronephrosis . She was given a dose of Vanco and ceftriaxone by the admitting doctor. However she started to also be hypotensive and hence she was transferred to intensive care unit for closer monitoring and observation. I spoke with Dr. Garcias yesterday and advised her to start the patient on meropenem and continue the vancomycin renal dose. I saw the patient today in the intensive care unit and she was intubated due to respiratory distress. She is awake and alert she is able to nod yes and no to some questions. She denies any abdominal pain at this moment. Surgical HX: S/P Percutaneous tube placement, Carotid Endarterectomy, Endoscopy, Cataract extraction left eye; Surgery to the shoulder, elbow and finger; Hand operation for Carpal Tunnel ; IVC Filter; Cholecystostomy Allergies: PCN (rash) FH: Significant for Heart disease SH: Ex Smoker; No alcohol; No illegal drug use; Live with SON (brandi) at night and Aide during the day. Uses walker for ambulation. Review of Systems - Review of Systems All systems: reviewed and no additional remarkable complaints except Review of Systems: Review of systems Patient has responded by nodding yes or no to the below questions. Patient denies any headaches, denies any cough, denies any shortness of breath, denies any chest pain, denies any nausea vomiting, denies any abdominal pain, denies any diarrhea, denies any dysuria Denies any recent travel Denies any sick contacts Denies any animal contact Past Patient History - Infectious Disease Hx of Infectious Diseases: None - Tetanus Immunizations Tetanus Immunization: Unknown - Past Medical History & Family History Past Medical History?: Yes - Past Social History Smoking Status: Never Smoked Chewing Tobacco Use: No Cigar Use: No Alcohol: None Drugs: Denies Domestic Violence: Negative - CARDIAC Hx Cardiac Disorders: Yes Hx Cardia Arrhythmia: Yes Hx Hypertension: Yes Hx Pacemaker: No Hx Peripheral Edema: Yes - PULMONARY Hx Respiratory Disorders: Yes Hx Bronchitis: Yes Hx Chronic Obstructive Pulmonary Disease (COPD): Yes Hx Pneumonia: Yes - NEUROLOGICAL Hx Neurological Disorder: No - HEENT Hx HEENT Problems: No - RENAL Hx Chronic Kidney Disease: No - ENDOCRINE/METABOLIC Hx Endocrine Disorders: No - HEMATOLOGICAL/ONCOLOGICAL Hx Blood Disorders: No Hx Anemia: No Hx Human Immunodeficiency Virus (HIV): No - INTEGUMENTARY Hx Dermatological Problems: No - MUSCULOSKELETAL/RHEUMATOLOGICAL Hx Musculoskeletal Disorders: Yes Hx Arthritis: Yes Hx Fractures: Yes Hx Osteoporosis: Yes - GASTROINTESTINAL Hx Gastrointestinal Disorders: Yes Hx Gastritis: Yes Hx Pancreatitis: Yes - GENITOURINARY/GYNECOLOGICAL Hx Genitourinary Disorders: Yes Hx Bladder Stone: Yes Hx Sexually Transmitted Disorders: No - PSYCHIATRIC Hx Psychophysiologic Disorder: Yes Hx Anxiety: Yes Hx Depression: Yes - SURGICAL HISTORY Hx Appendectomy: Yes Hx Carotid Endarterectomy: Yes Hx Cholecystectomy: Yes - ANESTHESIA Hx Anesthesia: Yes Hx Anesthesia Reactions: No Hx Malignant Hyperthermia: No Meds Allergies/Adverse Reactions: Allergies Allergy/AdvReac Type Severity Reaction Status Date / Time Penicillins Allergy RASH Verified 02/15/18 16:25 - Medications Medications: Current Medications Acetaminophen (Tylenol 325mg Tab) 650 mg PO Q6 PRN PRN Reason: Fever >100.4 F Last Admin: 04/19/18 04:57 Dose: 650 mg Acetaminophen (Tylenol 325mg Tab) 650 mg PO Q6 PRN PRN Reason: Pain, Mild (1-3) Acetaminophen (Tylenol 650 Mg Supp) 650 mg WI ONCE PRN PRN Reason: Fever >100.4 F Last Admin: 04/19/18 15:35 Dose: 650 mg Aspirin (Ecotrin) 325 mg PO DAILY [facility] Last Admin: 04/19/18 11:01 Dose: Not Given Atorvastatin Calcium (Lipitor) 40 mg PO DAILY [facility] Last Admin: 04/19/18 11:05 Dose: 40 mg Docusate Sodium (Colace) 100 mg PO TID PRN PRN Reason: Constipation Duloxetine HCl (Cymbalta) 60 mg PO HS [facility] Last Admin: 04/19/18 21:14 Dose: 60 mg Glycerin (Glycerin Adult Suppository) 1 sup WI ONCE PRN PRN Reason: constipation Meropenem 500 mg/ Sodium (Chloride) 100 mls @ 100 mls/hr IVPB Q8 [facility]; Protocol Last Admin: 04/20/18 09:07 Dose: 100 mls/hr Norepinephrine Bitartrate 4 mg (/ Dextrose) 254 mls @ 9.53 mls/hr IV .Q24H [facility]; Protocol Last Titration: 04/20/18 09:06 Dose: 7.5 mcg/min, 28.58 mls/hr Vancomycin HCl 1 gm/ Sodium (Chloride) 250 mls @ 166.667 mls/hr IVPB DAILY [facility]; Protocol Sodium Chloride (Sodium Chloride 0.9%) 1,000 mls @ 100 mls/hr IV .Q10H [facility] Stop: 04/21/18 09:29 Magnesium Oxide (Mag-Ox) 400 mg PO BID [facility] Last Admin: 04/19/18 17:34 Dose: Not Given Multivitamins/Minerals (Therapeutic-M Tab) 1 tab PO DAILY [facility] Last Admin: 04/19/18 09:18 Dose: 1 tab Ondansetron HCl (Zofran Inj) 4 mg IVP Q6 PRN PRN Reason: Nausea/Vomiting Last Admin: 04/19/18 22:46 Dose: 4 mg Oxybutynin Chloride (Ditropan Tab) 5 mg PO TID [facility] Pantoprazole Sodium (Protonix Ec Tab) 40 mg PO DAILY [facility] Last Admin: 04/19/18 11:07 Dose: 40 mg Potassium Phos/Sodium Phos (Neutra-Phos) 1 pkt PO QID [facility] Last Admin: 04/19/18 21:13 Dose: 1 pkt Sennosides (Senokot Tab) 8.6 mg PO BID PRN PRN Reason: Constipation Last Admin: 04/19/18 22:46 Dose: 8.6 mg Simethicone (Mylicon Chew Tab) 80 mg PO Q6 PRN PRN Reason: Gas relief Tamsulosin HCl (Flomax) 0.4 mg PO DAILY [facility] Last Admin: 04/19/18 09:19 Dose: 0.4 mg Physical Exam - Constitutional Appears: Chronically Ill Additional comments: Intubated but awake - Head Exam Head Exam: ATRAUMATIC - Eye Exam Eye Exam: EOMI - ENT Exam Additional comments: ET tube in place - Respiratory Exam Additional comments: on the vent breath sounds heard b/l - Cardiovascular Exam Cardiovascular Exam: RRR, +S1, +S2 - GI/Abdominal Exam GI & Abdominal Exam: Normal Bowel Sounds, Soft Additional comments: NT, ND - Extremities Exam Extremities exam: Positive for: normal inspection - Neurological Exam Neurological exam: Alert Additional comments: awake can nod yes or no to questions ( on the vent) Results - Vital Signs Recent Vital Signs: Last Vital Signs Temp 101.1 F H 04/20/18 09:00 Pulse 108 H 04/20/18 09:00 Resp 26 H 04/20/18 09:00 BP 96/53 L 04/20/18 09:00 Pulse Ox 100 04/20/18 09:00 - Labs Result Diagrams: 04/20/18 05:00 04/20/18 05:00 Labs: Laboratory Results - last 24 hr 04/19/18 04/19/18 04/19/18 04:30 04:45 09:20 WBC RBC Hgb Hct MCV MCH MCHC RDW Plt Count MPV Neut % (Auto) Lymph % (Auto) Richardson % (Auto) Eos % (Auto) Baso % (Auto) Neut # (Auto) Lymph # (Auto) Richardson # (Auto) Eos # (Auto) Baso # (Auto) Total Counted Neutrophils % (Manual) 86 H Band Neutrophils % 6 H Lymphocytes % (Manual) 2 L Reactive Lymphs % Monocytes % (Manual) 5 Eosinophils % (Manual) Basophils % (Manual) Metamyelocytes % 1 H Myelocytes % Promyelocytes % Blast Cells % Plasma Cell % (Manual) Nucleated RBC % Hypersegmented Polys Smudge Cells Toxic Granulation Present Dohle Bodies Alissa Rods Platelet Estimate Normal Plt Clumps, EDTA Large Platelets Giant Platelets RBC Morphology Polychromasia Hypochromasia (manual) Slight Poikilocytosis (manual Basophilic Stippling Anisocytosis (manual) Microcytosis (manual) Macrocytosis (manual) Spherocytes Sickle Cells Target Cells Tear Drop Cells Ovalocytes Slight Stomatocytes Helmet Cells Driver-Hoskins Bodies Bantry Cells Acanthocytes (Spur) Rouleaux Schistocytes PT INR pCO2 pO2 HCO3 ABG pH ABG Total CO2 ABG O2 Saturation ABG O2 Content ABG Base Excess ABG Hemoglobin ABG Carboxyhemoglobin POC ABG HHb (Measured) ABG Methemoglobin ABG O2 Capacity Mahesh Test A-a O2 Difference Hgb O2 Saturation FiO2 Sodium Potassium Chloride Carbon Dioxide Anion Gap BUN Creatinine Est GFR ( Amer) Est GFR (Non-Af Amer) Random Glucose Hemoglobin A1c 6.4 Lactic Acid Calcium Magnesium Total Bilirubin AST ALT Alkaline Phosphatase Troponin I 1.0100 H* Total Protein Albumin Globulin Albumin/Globulin Ratio Triglycerides 133 D Cholesterol 135 LDL Cholesterol Direct 72 HDL Cholesterol 23 L 04/19/18 04/19/18 04/19/18 15:40 15:40 15:40 WBC 33.0 H D RBC 3.31 L Hgb 9.6 L Hct 30.4 L MCV 91.7 MCH 28.9 MCHC 31.6 L RDW 13.9 Plt Count 230 MPV 7.7 Neut % (Auto) 92.0 H Lymph % (Auto) 2.2 L Richardson % (Auto) 5.8 Eos % (Auto) 0.0 Baso % (Auto) 0.0 Neut # (Auto) 30.3 H Lymph # (Auto) 0.7 L Richardson # (Auto) 1.9 H Eos # (Auto) 0.0 Baso # (Auto) 0.0 Total Counted Cancelled Neutrophils % (Manual) Cancelled Band Neutrophils % Cancelled Lymphocytes % (Manual) Cancelled Reactive Lymphs % Cancelled Monocytes % (Manual) Cancelled Eosinophils % (Manual) Cancelled Basophils % (Manual) Cancelled Metamyelocytes % Cancelled Myelocytes % Cancelled Promyelocytes % Cancelled Blast Cells % Cancelled Plasma Cell % (Manual) Cancelled Nucleated RBC % Cancelled Hypersegmented Polys Cancelled Smudge Cells Cancelled Toxic Granulation Cancelled Dohle Bodies Cancelled Alissa Rods Cancelled Platelet Estimate Cancelled Plt Clumps, EDTA Cancelled Large Platelets Cancelled Giant Platelets Cancelled RBC Morphology Cancelled Polychromasia Cancelled Hypochromasia (manual) Cancelled Poikilocytosis (manual Cancelled Basophilic Stippling Cancelled Anisocytosis (manual) Cancelled Microcytosis (manual) Cancelled Macrocytosis (manual) Cancelled Spherocytes Cancelled Sickle Cells Cancelled Target Cells Cancelled Tear Drop Cells Cancelled Ovalocytes Cancelled Stomatocytes Cancelled Helmet Cells Cancelled Driver-Hoskins Bodies Cancelled Alana Cells Cancelled Acanthocytes (Spur) Cancelled Rouleaux Cancelled Schistocytes Cancelled PT INR pCO2 pO2 HCO3 ABG pH ABG Total CO2 ABG O2 Saturation ABG O2 Content ABG Base Excess ABG Hemoglobin ABG Carboxyhemoglobin POC ABG HHb (Measured) ABG Methemoglobin ABG O2 Capacity Mahesh Test A-a O2 Difference Hgb O2 Saturation FiO2 Sodium Potassium Chloride Carbon Dioxide Anion Gap BUN Creatinine Est GFR ( Amer) Est GFR (Non-Af Amer) Random Glucose Hemoglobin A1c Lactic Acid 3.4 H Calcium Magnesium Total Bilirubin AST ALT Alkaline Phosphatase Troponin I 0.9890 H* Total Protein Albumin Globulin Albumin/Globulin Ratio Triglycerides Cholesterol LDL Cholesterol Direct HDL Cholesterol 04/19/18 04/19/18 04/20/18 15:40 17:25 05:00 WBC 23.2 H RBC 3.26 L Hgb 9.7 L Hct 29.6 L MCV 90.9 MCH 29.7 MCHC 32.6 L RDW 14.1 Plt Count 185 MPV 8.6 Neut % (Auto) 93.2 H Lymph % (Auto) 2.2 L Richardson % (Auto) 4.1 Eos % (Auto) 0.4 Baso % (Auto) 0.1 Neut # (Auto) 21.6 H Lymph # (Auto) 0.5 L Richardson # (Auto) 1.0 H Eos # (Auto) 0.1 Baso # (Auto) 0.0 Total Counted Cancelled Neutrophils % (Manual) Cancelled Band Neutrophils % Cancelled Lymphocytes % (Manual) Cancelled Reactive Lymphs % Cancelled Monocytes % (Manual) Cancelled Eosinophils % (Manual) Cancelled Basophils % (Manual) Cancelled Metamyelocytes % Cancelled Myelocytes % Cancelled Promyelocytes % Cancelled Blast Cells % Cancelled Plasma Cell % (Manual) Cancelled Nucleated RBC % Cancelled Hypersegmented Polys Cancelled Smudge Cells Cancelled Toxic Granulation Cancelled Dohle Bodies Cancelled Alissa Rods Cancelled Platelet Estimate Cancelled Plt Clumps, EDTA Cancelled Large Platelets Cancelled Giant Platelets Cancelled RBC Morphology Cancelled Polychromasia Cancelled Hypochromasia (manual) Cancelled Poikilocytosis (manual Cancelled Basophilic Stippling Cancelled Anisocytosis (manual) Cancelled Microcytosis (manual) Cancelled Macrocytosis (manual) Cancelled Spherocytes Cancelled Sickle Cells Cancelled Target Cells Cancelled Tear Drop Cells Cancelled Ovalocytes Cancelled Stomatocytes Cancelled Helmet Cells Cancelled Driver-Hoskins Bodies Cancelled Bantry Cells Cancelled Acanthocytes (Spur) Cancelled Rouleaux Cancelled Schistocytes Cancelled PT 17.1 H INR 1.5 pCO2 pO2 HCO3 ABG pH ABG Total CO2 ABG O2 Saturation ABG O2 Content ABG Base Excess ABG Hemoglobin ABG Carboxyhemoglobin POC ABG HHb (Measured) ABG Methemoglobin ABG O2 Capacity Mahesh Test A-a O2 Difference Hgb O2 Saturation FiO2 Sodium 137 Potassium 4.1 Chloride 106 Carbon Dioxide 21 L Anion Gap 14 BUN 34 H Creatinine 2.4 H Est GFR ( Amer) 24 Est GFR (Non-Af Amer) 19 Random Glucose 114 H Hemoglobin A1c Lactic Acid Calcium 8.0 L Magnesium Total Bilirubin 0.6 AST 35 ALT 16 Alkaline Phosphatase 95 Troponin I Total Protein 6.5 Albumin 3.0 L Globulin 3.6 Albumin/Globulin Ratio 0.8 L Triglycerides Cholesterol LDL Cholesterol Direct HDL Cholesterol 04/20/18 04/20/18 04/20/18 05:00 05:00 07:41 WBC RBC Hgb Hct MCV MCH MCHC RDW Plt Count MPV Neut % (Auto) Lymph % (Auto) Richardson % (Auto) Eos % (Auto) Baso % (Auto) Neut # (Auto) Lymph # (Auto) Richardson # (Auto) Eos # (Auto) Baso # (Auto) Total Counted Neutrophils % (Manual) Band Neutrophils % Lymphocytes % (Manual) Reactive Lymphs % Monocytes % (Manual) Eosinophils % (Manual) Basophils % (Manual) Metamyelocytes % Myelocytes % Promyelocytes % Blast Cells % Plasma Cell % (Manual) Nucleated RBC % Hypersegmented Polys Smudge Cells Toxic Granulation Dohle Bodies Alissa Rods Platelet Estimate Plt Clumps, EDTA Large Platelets Giant Platelets RBC Morphology Polychromasia Hypochromasia (manual) Poikilocytosis (manual Basophilic Stippling Anisocytosis (manual) Microcytosis (manual) Macrocytosis (manual) Spherocytes Sickle Cells Target Cells Tear Drop Cells Ovalocytes Stomatocytes Helmet Cells Driver-Hoskins Bodies Bantry Cells Acanthocytes (Spur) Rouleaux Schistocytes PT INR pCO2 26 L pO2 65 L HCO3 22.5 ABG pH 7.48 H ABG Total CO2 20.2 L ABG O2 Saturation 94.7 L ABG O2 Content 14.1 L ABG Base Excess -3.0 L ABG Hemoglobin 10.6 L ABG Carboxyhemoglobin 0 L POC ABG HHb (Measured) 5.3 H ABG Methemoglobin 0.7 ABG O2 Capacity 14.9 L Mahesh Test Yes A-a O2 Difference 159.0 Hgb O2 Saturation 94.0 L FiO2 36.0 Sodium 140 Potassium 4.0 Chloride 105 Carbon Dioxide 20 L Anion Gap 19 BUN 40 H Creatinine 2.4 H Est GFR ( Amer) 24 Est GFR (Non-Af Amer) 19 Random Glucose 102 Hemoglobin A1c Lactic Acid 3.2 H Calcium 8.0 L Magnesium 1.7 Total Bilirubin 0.8 AST 33 ALT 20 Alkaline Phosphatase 169 H D Troponin I 0.7000 H* Total Protein 6.4 Albumin 2.9 L Globulin 3.5 Albumin/Globulin Ratio 0.8 L Triglycerides Cholesterol LDL Cholesterol Direct HDL Cholesterol Accession No. : [id number] Patient Name / ID : LAURO RODRIGUEZ / [id number] Exam Date : 04/19/2018 00:32:23 ( Approved ) Study Comment : Sex / Age : F / 77Y Creator : Carlito Peralta MD Dictator : Carlito Peralta MD Drill Rig Operator Helper : [employer]op Riveting Machine Operator : Carlito Peralta MD Approver2 : Report Date : 04/19/2018 11:37:41 My Comment : Date of service: 04/19/2018 PROCEDURE: CT Abdomen and Pelvis without intravenous contrast HISTORY: code sepsis COMPARISON: Abdomen and pelvis CT with contrast 02/11/2018 TECHNIQUE: Helical CT of the abdomen and pelvis was performed without oral or intravenous contrast as per referring physician request. Coronal and sagittal reformats were generated.. Contrast dose: None Radiation dose: Total exam DLP = 906.33 mGy-cm. This CT exam was performed using one or more of the following dose reduction techniques: Automated exposure control, adjustment of the mA and/or kV according to patient size, and/or use of iterative reconstruction technique. FINDINGS: LOWER THORAX: Fibrotic changes are favored over atelectasis the left bases they have not changed in the interval compared 02/11/[address] LIVER: Mild hepatomegaly is reiterated without definitive mass. Lack of intravenous contrast limits evaluation of the solid abdominal organs predominantly. GALLBLADDER AND BILE DUCTS: Gallbladder is rather distended, similarly than previously shown. Biliary tree is difficult to characterize given lack of intravenous contrast. No radiodense choledocholithiasis or cholelithiasis appreciable at this time. No mural thickening or pericolic fluid collection identified. PANCREAS: Limited chronic pancreatitis pattern again evident. Pancreatic atrophy reiterated. SPLEEN: Unremarkable. ADRENALS: Unremarkable. No mass. KIDNEYS AND URETERS: Multiple large calculi identified at the bilateral renal pelves as well as the mid to lower pole renal calices in a pattern of early development probable staghorn calculi though a staghorn calculus is not specifically identified at this time. Streaky perinephric changes are stable at the left side and appear to have increased at the right raising question of potential pyelonephritis. Lack of intravenous contrast limits evaluation of both kidneys including the right for possible pyelonephritis. VASCULATURE: Nonaneurysmal abdominal aortic calcific atherosclerotic changes are identified. BOWEL: Unremarkable. No obstruction. No gross mural thickening. Prominent retained fecal material is again appreciate suspicious for constipation. APPENDIX: Unremarkable. Normal appendix. PERITONEUM: Unremarkable. No free fluid. No free air. LYMPH NODES: Unremarkable. No enlarged lymph nodes. BLADDER: Unremarkable. REPRODUCTIVE: Unremarkable. BONES: Benign hemangiomas are incidentally captured at the T12 and L4 vertebral bodies once again with advanced multilevel degenerative disease appreciated throughout the thoracolumbar spine. Limited dextroscoliosis of the mid lumbar spine again evident. Further, late stage osteoarthritis of the right hip is appreciated with only mild to moderate left hip degenerative changes. There is marked joint space narrowing appreciated with minimal residual at the right hip joint, gross osteophyte development and subchondral cyst formation. There is also some subluxation of the right femoral head lateral relative to the acetabulum. OTHER FINDINGS: None. IMPRESSION: 1. Pattern suspicious for potential right pyelonephritis with stable left perinephric reaction identified. Multiple intrarenal calculi identified bilaterally as discussed above. No definite obstructive uropathy bilaterally. 2. Prominent gallbladder distention again evident without other acute sinus that would suggest cholecystitis. Dilated biliary tree is difficult to compare due lack images contrast. Ultrasonography may be useful for follow-up. 3. Chronic pancreatitis reiterated. 4. Likely constipation. Clinically correlate further. 5. End-stage right hip osteoarthritis as discussed above. Concordant preliminary report from [facility], 04/19/2018 1:23 a.m.. Accession No. : [id number] Patient Name / ID : LAURO RODRIGUEZ / [id number] Exam Date : 04/20/2018 07:54:23 ( Approved ) Study Comment : Sex / Age : F / 77Y Creator : Carlito Peralta MD Dictator : Carlito Peralta MD Drill Rig Operator Helper : [employer]op Riveting Machine Operator : Carlito Peralta MD Approver2 : Report Date : 04/20/2018 08:43:17 My Comment : Date of service: 04/20/2018 HISTORY: Pneumonia COMPARISON: Portable chest 04/19/2018. FINDINGS: LUNGS: Patient has been intubated with endotracheal tube terminating 4 cm above the nabeel. Increased density at the right apex is felt to be artifactual and no definitive infiltrate is felt to be present bilaterally. Clinically correlate neverthele ss. PLEURA: No pneumothorax bilaterally. No right pleural effusion. Trace left pleural effusion appears to blunt the left costophrenic sulcus. CARDIOVASCULAR: Calcific atherosclerotic changes are seen related to the thoracic aorta. Normal cardiac size. No pulmonary vascular congestion. OSSEOUS STRUCTURES: No significant abnormalities. VISUALIZED UPPER ABDOMEN: Normal. OTHER FINDINGS: None. IMPRESSION: Artifacts felt to cause the opacity at the right apex in this patient rotated toward the right. Endotracheal intubation is identified in good apparent position. Trace left pleural effusion questioned. Microbiology 04/18/18 22:04 Urine,Clean Catch Urine Culture - Preliminary Gram Negative [place] 04/18/18 23:04 Blood-Venous Blood Culture - Preliminary Gram Negative [place]ick 04/18/18 23:04 Blood-Venous Gram Stain - Final Assessment & Plan (1) ARF (acute renal failure) Status: Acute Priority: High (2) Septic shock Status: Acute Priority: High (3) Pyelonephritis, acute Status: Acute (4) Sepsis Status: Acute - Assessment and Plan (Free Text) Assessment: Assessment and plan Patient is a 77-year-old female with multiple medical conditions who was admitted with fever dysuria lower back pain and was found to have pyelonephritis hypotensive septic. [id number] Blood culture preliminary gram-negative rods Urine culture preliminary gram-negative rods Urinalysispositive leukocyte esterase 1. Urosepsis 2. Respiratory distress 3. Acute on chronic renal insufficiency 4. Pyelonephritis Plan Await identification and sensitivity of the gram-negative rods in both urine and blood culture. Advised to continue with IV meropenem for broad-spectrum gram-negative coverage (dose based on renal function). Advised to also continue with vancomycin to be dosed renally. Keep vancomycin trough less than 15. Monitor white blood cell count closely. Check 2 more blood cultures. check TTE r/o vegetations. All labs and imaging and pertinent chart notes were reviewed in detail. Case was discussed with both slack cooper and Dr. Garcias. Thank you for allowing me to take part in the care of this patient. Critical care time spent 60 minutes.
[2018-04-20] MEDS: Sodium Chloride 0.9% 1,000 ML IV SCH (09:37)
[2018-04-20] MEDS ORDERED: Chlorhexidine Gluconate 1 APPL/PKT TP ONE (09:40)
[2018-04-20] MEDS: Aspirin 325 mg EC Tablets PO SCH (11:37)
[2018-04-20] MEDS: Magnesium Oxide 400 mg Tab UD PO SCH ×2 (11:38→16:02)
[2018-04-20] MEDS: Pantoprazole 40 mg EC Tab PO SCH (11:38)
[2018-04-20] MEDS: Potassium & Sodium Phosphate PO SCH ×4 (11:38→21:17)
[2018-04-20] MEDS: Multivitamin With Minerals Tab PO SCH (11:39)
--- NOTE | 2018-04-20 18:53 | CP.CCUPN ---
CCU Subjective - Physician Review Subjective (Free Text): 04/20/18 18:37 The patient was Seen/interviewed and examined by me at the bedside during ICU round, Medical records reviewed and Management issues were discussed and formulated with the house staff. Events reviewed Patient is a 77 Years old Female with past medical history of Anxiety, Arthritis, Bronchitis, Cardia Arrhythmia, Colonic Polyps, COPD, Depression, Fibromyalgia, Fractures, Gastritis, GERD, HTN, Osteoporosis, Pancreatitis, Peripheral Edema, Pneumonia, Chronic Pain (bilateral LE) She arrived to the emergency room complaining of two to three days of right sided back pain accompanied with urinary symptoms of hesitation and urgency. Abdomen CT: Renal stones bilaterally. Right 7.3mm obstructing stone in ureterovesical junction, R. Hypodronephrosis. Multiple non obstructing stones in left renal pelvis w/ mild left hydronephrosis Intially admitted to the Telemetry for management of Severe Sepsis likely from UTI secondary to obstructive uropathy [facility]dard [facility]res sent and started on Rocephin 2g daily Also urology consulted 04/19 [employer] was called for Hypotension with blood pressure of 64/36 IV fluid hydration noted with slight improvement of vital signs She was transferred to the ICU for management of septic shock, hypotensive Another liter of IV bolus initiated under urgent circumstances and complete sterile precautions Right femoral central line was placed Vasopressor with Levophed intiated This morning, the patient was found to be in respiratory distress, tachypna, febrile Tmax 102.9 and lethergic She was urgently intubated and mechanically vented Post intubation she looks more comfortable, awake and responsive Critical Care Time Spent (in minutes): 42 CCU Objective - Vital Signs / Intake & Output Vital Signs (Last 4 hours): Vital Signs Temp Pulse Resp BP Pulse Ox 04/20/18 17:59 114 H 24 132/69 99 04/20/18 16:58 106 H 21 114/72 99 04/20/18 16:00 98.2 F 100 H 18 114/69 98 04/20/18 15:00 100 H 20 122/68 100 Intake and Output (Last 8hrs): Intake & Output 04/20/18 04/20/18 04/20/18 06:59 14:59 22:59 Intake Total 690 1604 904 Output Total 350 400 Balance 690 1254 504 Weight 230 lb 14.4 oz Intake: IV 690 1104 654 Intake, Piggyback 350 100 Free Water Flush 150 150 Output: Urine 350 400 Urethral (Reagan) 350 400 Other: # Bowel Movements 1 - Physical Exam Head: Positive for: Atraumatic, Normocephalic Pupils: Positive for: PERRL Extroacular Muscles: Positive for: EOMI Conjunctiva: Positive for: Normal. Negative for: Injected, Icteric Nose (Internal): Positive for: Normal Inspection Neck: Positive for: Normal Range of Motion, Trachea Midline. Negative for: Meningeal Signs, MIDLINE TENDERNESS, Paraspinal Tenderness, JVD, Lymphadenopathy, Bruit, Other Respiratory/Chest: Positive for: Good Air Exchange, Rhonchi, Tachypneic. Negative for: Clear to Auscultation, Wheezes, Rales Cardiovascular: Positive for: Regular Rate and Rhythm, Normal S1, S2. Negative for: Murmurs Abdomen: Positive for: Distention, Normal Bowel Sounds. Negative for: Tenderness Back: Positive for: CVA Tenderness Lower Extremity: Positive for: Edema Psychiatric: Positive for: Alert, Oriented x 3 - Medications Active Medications: Active Medications Generic Name Dose Route Start Last Admin Trade Name Freq PRN Reason Stop Dose Admin Acetaminophen 650 mg 04/19/18 00:29 04/19/18 04:57 Tylenol 325mg Tab PO 650 mg Q6 PRN Administration Fever >100.4 F Acetaminophen 650 mg 04/19/18 01:57 Tylenol 325mg Tab PO Q6 PRN Pain, Mild (1-3) Acetaminophen 650 mg 04/19/18 15:45 04/19/18 15:35 Tylenol 650 Mg Supp AL 650 mg ONCE PRN Administration Fever >100.4 F Aspirin 325 mg 04/19/18 07:15 04/20/18 11:37 Ecotrin PO 325 mg DAILY PATTI Administration Atorvastatin Calcium 40 mg 04/19/18 09:00 04/20/18 11:37 Lipitor PO 40 mg DAILY PATTI Administration Docusate Sodium 100 mg 04/19/18 01:17 Colace PO TID PRN Constipation Duloxetine HCl 60 mg 04/19/18 22:00 04/19/18 21:14 Cymbalta PO 60 mg HS PATTI Administration Glycerin 1 sup 04/19/18 00:39 Glycerin Adult Suppository AL ONCE PRN constipation Meropenem 500 mg/ Sodium 100 mls @ 100 mls/hr 04/20/18 01:00 04/20/18 16:03 Chloride IVPB 100 mls/hr Q8 PATTI Administration Protocol Norepinephrine Bitartrate 4 mg 254 mls @ 9.53 mls/hr 04/20/18 06:45 04/20/18 18:04 / Dextrose IV 5 mcg/min .Q24H PATTI 19.05 mls/hr Titration Protocol 2.5 MCG/MIN Sodium Chloride 1,000 mls @ 100 mls/hr 04/20/18 09:30 04/20/18 09:37 Sodium Chloride 0.9% IV 04/21/18 09:29 100 mls/hr .Q10H PATTI Administration Vancomycin HCl 500 mg/ Sodium 100 mls @ 100 mls/hr 04/20/18 21:00 Chloride IVPB Q12 [facility] Protocol Magnesium Oxide 400 mg 04/19/18 09:00 04/20/18 16:02 Mag-Ox PO 400 mg BID PATTI Administration Multivitamins/Minerals 1 tab 04/19/18 09:00 04/20/18 11:39 Therapeutic-M Tab PO 1 tab DAILY PATTI Administration Ondansetron HCl 4 mg 04/19/18 00:29 04/19/18 22:46 Zofran Inj IVP 4 mg Q6 PRN Administration Nausea/Vomiting Oxybutynin Chloride 5 mg 04/19/18 09:00 Ditropan Tab PO TID PATTI Pantoprazole Sodium 40 mg 04/19/18 09:00 04/20/18 11:38 Protonix Ec Tab PO 40 mg DAILY PATTI Administration Potassium Phos/Sodium Phos 1 pkt 04/19/18 09:00 04/20/18 16:04 Neutra-Phos PO 1 pkt QID PATTI Administration Sennosides 8.6 mg 04/19/18 01:17 04/19/18 22:46 Senokot Tab PO 8.6 mg BID PRN Administration Constipation Simethicone 80 mg 04/19/18 01:17 Mylicon Chew Tab PO Q6 PRN Gas relief Tamsulosin HCl 0.4 mg 04/19/18 01:45 04/20/18 11:37 Flomax PO 0.4 mg DAILY PATTI Administration - Patient Studies Lab Studies: Microbiology Studies 04/18/18 22:04 Urine Culture - Preliminary Urine,Clean Catch Gram Negative [place] 04/18/18 23:04 Blood Culture - Preliminary Blood-Venous Gram Negative Malick Gram Stain - Final Lab Studies 04/20/18 04/20/18 04/20/18 Range/Units 07:41 05:00 05:00 WBC (4.8-10.8) K/uL RBC (3.80-5.20) Mil/uL Hgb (12.0-16.0) g/dL Hct (34.0-47.0) % MCV (81.0-99.0) fl MCH (27.0-31.0) pg MCHC (33.0-37.0) g/dL RDW (11.5-14.5) % Plt Count (130-400) K/uL MPV (7.2-11.7) fl Neut % (Auto) (50.0-75.0) % Lymph % (Auto) (20.0-40.0) % [place] % (Auto) (0.0-10.0) % Eos % (Auto) (0.0-4.0) % Baso % (Auto) (0.0-2.0) % Neut # (Auto) (1.8-7.0) K/uL Lymph # (Auto) (1.0-4.3) K/uL [place] # (Auto) (0.0-0.8) K/uL Eos # (Auto) (0.0-0.7) K/uL Baso # (Auto) (0.0-0.2) K/uL Total Counted Neutrophils % (Manual) Band Neutrophils % Lymphocytes % (Manual) Reactive Lymphs % Monocytes % (Manual) Eosinophils % (Manual) Basophils % (Manual) Metamyelocytes % Myelocytes % Promyelocytes % Blast Cells % Plasma Cell % (Manual) Nucleated RBC % Hypersegmented Polys Smudge Cells Toxic Granulation Dohle Bodies Alissa Rods Platelet Estimate Plt Clumps, EDTA Large Platelets Giant Platelets RBC Morphology Polychromasia Hypochromasia (manual) Poikilocytosis (manual Basophilic Stippling Anisocytosis (manual) Microcytosis (manual) Macrocytosis (manual) Spherocytes Sickle Cells Target Cells Tear Drop Cells Ovalocytes Stomatocytes Helmet Cells Driver-Bellaire Bodies Alana Cells Acanthocytes (Spur) Rouleaux Schistocytes pCO2 26 L (35-45) mm/Hg pO2 65 L (80-100) mm/Hg HCO3 22.5 (21-28) mmol/L ABG pH 7.48 H (7.35-7.45) ABG Total CO2 20.2 L (22-28) mmol/L ABG O2 Saturation 94.7 L (95-98) % ABG O2 Content 14.1 L (15-23) ML/dL ABG Base Excess -3.0 L (-2.0-3.0) mmol/L ABG Hemoglobin 10.6 L (11.7-17.4) g/dL ABG Carboxyhemoglobin 0 L (0.5-1.5) % POC ABG HHb (Measured) 5.3 H (0.0-5.0) % ABG Methemoglobin 0.7 (0.0-3.0) % ABG O2 Capacity 14.9 L (16-24) mL/dL Mahesh Test Yes A-a O2 Difference 159.0 mm/Hg Hgb O2 Saturation 94.0 L (95.0-98.0) % FiO2 36.0 % Sodium 140 (132-148) mmol/l Potassium 4.0 (3.6-5.0) MMOL/L Chloride 105 (98-107) mmol/L Carbon Dioxide 20 L (22-30) mmol/L Anion Gap 19 (10-20) BUN 40 H (7-17) mg/dl Creatinine 2.4 H (0.7-1.2) mg/dl Est GFR ( Amer) 24 Est GFR (Non-Af Amer) 19 Random Glucose 102 (65-105) mg/dL Lactic Acid 3.2 H (0.7-2.1) mmol/L Calcium 8.0 L (8.4-10.2) mg/dL Magnesium 1.7 (1.6-2.3) MG/DL Total Bilirubin 0.8 (0.2-1.3) mg/dl AST 33 (14-36) U/L ALT 20 (9-52) U/L Alkaline Phosphatase 169 H D (38-126) U/L Troponin I 0.7000 H* (0.00-0.120) ng/mL Total Protein 6.4 (6.3-8.2) G/DL Albumin 2.9 L (3.5-5.0) g/dL Globulin 3.5 (2.2-3.9) gm/dL Albumin/Globulin Ratio 0.8 L (1.0-2.1) /07/04 Range/Units 05:00 WBC 23.2 H (4.8-10.8) K/uL RBC 3.26 L (3.80-5.20) Mil/uL Hgb 9.7 L (12.0-16.0) g/dL Hct 29.6 L (34.0-47.0) % MCV 90.9 (81.0-99.0) fl MCH 29.7 (27.0-31.0) pg MCHC 32.6 L (33.0-37.0) g/dL RDW 14.1 (11.5-14.5) % Plt Count 185 (130-400) K/uL MPV 8.6 (7.2-11.7) fl Neut % (Auto) 93.2 H (50.0-75.0) % Lymph % (Auto) 2.2 L (20.0-40.0) % [place] % (Auto) 4.1 (0.0-10.0) % Eos % (Auto) 0.4 (0.0-4.0) % Baso % (Auto) 0.1 (0.0-2.0) % Neut # (Auto) 21.6 H (1.8-7.0) K/uL Lymph # (Auto) 0.5 L (1.0-4.3) K/uL [place] # (Auto) 1.0 H (0.0-0.8) K/uL Eos # (Auto) 0.1 (0.0-0.7) K/uL Baso # (Auto) 0.0 (0.0-0.2) K/uL Total Counted Cancelled Neutrophils % (Manual) Cancelled Band Neutrophils % Cancelled Lymphocytes % (Manual) Cancelled Reactive Lymphs % Cancelled Monocytes % (Manual) Cancelled Eosinophils % (Manual) Cancelled Basophils % (Manual) Cancelled Metamyelocytes % Cancelled Myelocytes % Cancelled Promyelocytes % Cancelled Blast Cells % Cancelled Plasma Cell % (Manual) Cancelled Nucleated RBC % Cancelled Hypersegmented Polys Cancelled Smudge Cells Cancelled Toxic Granulation Cancelled Dohle Bodies Cancelled Alissa Rods Cancelled Platelet Estimate Cancelled Plt Clumps, EDTA Cancelled Large Platelets Cancelled Giant Platelets Cancelled RBC Morphology Cancelled Polychromasia Cancelled Hypochromasia (manual) Cancelled Poikilocytosis (manual Cancelled Basophilic Stippling Cancelled Anisocytosis (manual) Cancelled Microcytosis (manual) Cancelled Macrocytosis (manual) Cancelled Spherocytes Cancelled Sickle Cells Cancelled Target Cells Cancelled Tear Drop Cells Cancelled Ovalocytes Cancelled Stomatocytes Cancelled Helmet Cells Cancelled Driver-Bellaire Bodies Cancelled Alana Cells Cancelled Acanthocytes (Spur) Cancelled Rouleaux Cancelled Schistocytes Cancelled pCO2 (35-45) mm/Hg pO2 (80-100) mm/Hg HCO3 (21-28) mmol/L ABG pH (7.35-7.45) ABG Total CO2 (22-28) mmol/L ABG O2 Saturation (95-98) % ABG O2 Content (15-23) ML/dL ABG Base Excess (-2.0-3.0) mmol/L ABG Hemoglobin (11.7-17.4) g/dL ABG Carboxyhemoglobin (0.5-1.5) % POC ABG HHb (Measured) (0.0-5.0) % ABG Methemoglobin (0.0-3.0) % ABG O2 Capacity (16-24) mL/dL Mahesh Test A-a O2 Difference mm/Hg Hgb O2 Saturation (95.0-98.0) % FiO2 % Sodium (132-148) mmol/l Potassium (3.6-5.0) MMOL/L Chloride (98-107) mmol/L Carbon Dioxide (22-30) mmol/L Anion Gap (10-20) BUN (7-17) mg/dl Creatinine (0.7-1.2) mg/dl Est GFR ( Amer) Est GFR (Non-Af Amer) Random Glucose (65-105) mg/dL Lactic Acid (0.7-2.1) mmol/L Calcium (8.4-10.2) mg/dL Magnesium (1.6-2.3) MG/DL Total Bilirubin (0.2-1.3) mg/dl AST (14-36) U/L ALT (9-52) U/L Alkaline Phosphatase (38-126) U/L Troponin I (0.00-0.120) ng/mL Total Protein (6.3-8.2) G/DL Albumin (3.5-5.0) g/dL Globulin (2.2-3.9) gm/dL Albumin/Globulin Ratio (1.0-2.1) Laboratory Results - last 24 hr 04/20/18 04/20/18 04/20/18 05:00 05:00 05:00 WBC 23.2 H RBC 3.26 L Hgb 9.7 L Hct 29.6 L MCV 90.9 MCH 29.7 MCHC 32.6 L RDW 14.1 Plt Count 185 MPV 8.6 Neut % (Auto) 93.2 H Lymph % (Auto) 2.2 L [place] % (Auto) 4.1 Eos % (Auto) 0.4 Baso % (Auto) 0.1 Neut # (Auto) 21.6 H Lymph # (Auto) 0.5 L [place] # (Auto) 1.0 H Eos # (Auto) 0.1 Baso # (Auto) 0.0 Total Counted Cancelled Neutrophils % (Manual) Cancelled Band Neutrophils % Cancelled Lymphocytes % (Manual) Cancelled Reactive Lymphs % Cancelled Monocytes % (Manual) Cancelled Eosinophils % (Manual) Cancelled Basophils % (Manual) Cancelled Metamyelocytes % Cancelled Myelocytes % Cancelled Promyelocytes % Cancelled Blast Cells % Cancelled Plasma Cell % (Manual) Cancelled Nucleated RBC % Cancelled Hypersegmented Polys Cancelled Smudge Cells Cancelled Toxic Granulation Cancelled Dohle Bodies Cancelled Alissa Rods Cancelled Platelet Estimate Cancelled Plt Clumps, EDTA Cancelled Large Platelets Cancelled Giant Platelets Cancelled RBC Morphology Cancelled Polychromasia Cancelled Hypochromasia (manual) Cancelled Poikilocytosis (manual Cancelled Basophilic Stippling Cancelled Anisocytosis (manual) Cancelled Microcytosis (manual) Cancelled Macrocytosis (manual) Cancelled Spherocytes Cancelled Sickle Cells Cancelled Target Cells Cancelled Tear Drop Cells Cancelled Ovalocytes Cancelled Stomatocytes Cancelled Helmet Cells Cancelled Driver-Bellaire Bodies Cancelled [place] Cells Cancelled Acanthocytes (Spur) Cancelled Rouleaux Cancelled Schistocytes Cancelled pCO2 pO2 HCO3 ABG pH ABG Total CO2 ABG O2 Saturation ABG O2 Content ABG Base Excess ABG Hemoglobin ABG Carboxyhemoglobin POC ABG HHb (Measured) ABG Methemoglobin ABG O2 Capacity Mahesh Test A-a O2 Difference Hgb O2 Saturation FiO2 Sodium 140 Potassium 4.0 Chloride 105 Carbon Dioxide 20 L Anion Gap 19 BUN 40 H Creatinine 2.4 H Est GFR ( Amer) 24 Est GFR (Non-Af Amer) 19 Random Glucose 102 Lactic Acid 3.2 H Calcium 8.0 L Magnesium 1.7 Total Bilirubin 0.8 AST 33 ALT 20 Alkaline Phosphatase 169 H D Troponin I 0.7000 H* Total Protein 6.4 Albumin 2.9 L Globulin 3.5 Albumin/Globulin Ratio 0.8 L 04/20/18 07:41 WBC RBC Hgb Hct MCV MCH MCHC RDW Plt Count MPV Neut % (Auto) Lymph % (Auto) [place] % (Auto) Eos % (Auto) Baso % (Auto) Neut # (Auto) Lymph # (Auto) [place] # (Auto) Eos # (Auto) Baso # (Auto) Total Counted Neutrophils % (Manual) Band Neutrophils % Lymphocytes % (Manual) Reactive Lymphs % Monocytes % (Manual) Eosinophils % (Manual) Basophils % (Manual) Metamyelocytes % Myelocytes % Promyelocytes % Blast Cells % Plasma Cell % (Manual) Nucleated RBC % Hypersegmented Polys Smudge Cells Toxic Granulation Dohle Bodies Alissa Rods Platelet Estimate Plt Clumps, EDTA Large Platelets Giant Platelets RBC Morphology Polychromasia Hypochromasia (manual) Poikilocytosis (manual Basophilic Stippling Anisocytosis (manual) Microcytosis (manual) Macrocytosis (manual) Spherocytes Sickle Cells Target Cells Tear Drop Cells Ovalocytes Stomatocytes Helmet Cells Driver-Bellaire Bodies [place] Cells Acanthocytes (Spur) Rouleaux Schistocytes pCO2 26 L pO2 65 L HCO3 22.5 ABG pH 7.48 H ABG Total CO2 20.2 L ABG O2 Saturation 94.7 L ABG O2 Content 14.1 L ABG Base Excess -3.0 L ABG Hemoglobin 10.6 L ABG Carboxyhemoglobin 0 L POC ABG HHb (Measured) 5.3 H ABG Methemoglobin 0.7 ABG O2 Capacity 14.9 L Mahesh Test Yes A-a O2 Difference 159.0 Hgb O2 Saturation 94.0 L FiO2 36.0 Sodium Potassium Chloride Carbon Dioxide Anion Gap BUN Creatinine Est GFR ( Amer) Est GFR (Non-Af Amer) Random Glucose Lactic Acid Calcium Magnesium Total Bilirubin AST ALT Alkaline Phosphatase Troponin I Total Protein Albumin Globulin Albumin/Globulin Ratio Radiology Impressions: Radiology Impressions Chest X-Ray 04/20/18 07:26 IMPRESSION: Artifacts felt to cause the opacity at the right apex in this patient rotated toward the right. Endotracheal intubation is identified in good apparent position. Trace left pleural effusion questioned. Review of Systems - Review of Systems Systems not reviewed;Unavailable: Intubated Critical Care Progress Note - Ventilator Checklist Head of Bed 30 Degrees: Yes Daily Sedation Vacation: Yes Daily Assessment of Readiness to Wean: Yes Daily Spontaneous Breathing Trial: Yes PUD Prophalyxis: Yes DVT Prophylaxis: Yes Oral Care with Chlorhexidine Gluconate {CHG}: Yes - Nutrition Nutrition: Nutrition Category Date Time Status NPO Diet [DIET] Diets 04/19/18 Breakfast Active Assessment/Plan (1) Acute respiratory failure with hypoxia Current Visit: Yes Status: Acute Priority: High (2) Septic shock Current Visit: Yes Status: Acute Priority: High (3) ARF (acute renal failure) Current Visit: Yes Status: Acute Priority: High (4) Tachycardia Current Visit: Yes Status: Acute Priority: High (5) Nephrolithiasis Current Visit: Yes Status: Acute Priority: High (6) Hydronephrosis Current Visit: Yes Status: Acute Priority: High - Assessment and Plan (Free Text) Assessment: Patient was intubated today for hemodynamic instability, respiratory distress, and altered mental status Septic shock ARF (acute renal failure) Altered mental status from toxic metabolic encephalopathy Post intubation CXR and ABG Strict I&O Aggressive pulmonary toilet, chest PT, suctioning The source of infection likely urinary tract infection Continue with ICU for hemodynamic monitoring Continue IV hydration and volume resuscitation Continue IV vancomycin and IV Meropenem Maintain map [id number] Continue to use vasopressors with levophed for BP support, wean as tolerated # Start OG tube feeding # HOB maintained at 30 degrees. # GI/DVT PPX # Stress Ulcer prophylaxis with Protonix 40 mg IVP QD # DVT prophylaxis with SCD and SQ Heparin # Code Status: Full code Total critical care time 42 minutes
[2018-04-20 19:27] LABS: ABG ALLEN TEST YES; ARTERIAL BLOOD GAS HCO3 23.4 mmol/L (21-28); ARTERIAL BLOOD GAS O2 SAT 97.6 % (95-98); ARTERIAL BLOOD GAS PCO2 36 mm/Hg (35-45); ARTERIAL BLOOD GAS PO2 112 mm/Hg (80-100); ARTERIAL BLOOD GAS TCO2 23.4 mmol/L (22-28)
[2018-04-21] MEDS: Sodium Chloride 0.9% 1,000 ML IV SCH (00:40)
[2018-04-21] MEDS ORDERED: Metoprolol 1 mg/ml Inj IVP ONE ×2 (00:45→14:05)
[2018-04-21] MEDS: Meropenem 500 MG in Sodium Chloride 0.9% 100 ML IVPB SCH ×2 (00:47→09:41)
[2018-04-21 04:48] LABS: ABG ALLEN TEST YES; ARTERIAL BLOOD GAS HCO3 21.9 mmol/L (21-28); ARTERIAL BLOOD GAS PCO2 36 mm/Hg (35-45); ARTERIAL BLOOD GAS PH 7.37 (7.35-7.45); ARTERIAL BLOOD GAS PO2 123 mm/Hg (80-100); ARTERIAL BLOOD GAS TCO2 21.9 mmol/L (22-28)
[2018-04-21 05:26] LABS: HEMOGLOBIN 10.6 g/dL (12.0-16.0); MEAN CELL VOLUME 91.6 fl (81.0-99.0); MEAN CORPUSCULAR HEMOGLOBIN 29.2 pg (27.0-31.0); MEAN CORPUSCULAR HGB CONC 31.9 g/dL (33.0-37.0); RBC 3.63 Mil/uL (3.80-5.20); RED CELL DISTRIBUTION WIDTH 14.6 % (11.5-14.5); WHITE BLOOD COUNT 29.7 K/uL (4.8-10.8)
[2018-04-21] MEDS ORDERED: Digoxin 500 mcg/2ml (0.5 mg/2ml) Inj IVP ONE ×2 (05:49→05:50)
[2018-04-21 05:53] LABS: CALCIUM 8.1 mg/dL (8.4-10.2)
--- NOTE | 2018-04-21 08:43 | PQF ---
PROVIDER RESPONSE TEXT: Respiratory failure with hypoxia REVIEWER QUERY TEXT: Respiratory Failure Acuity and Type Acute Respiratory Failure is documented in the Medical Record. Please specify the type if known: i.e. - With hypercapnia - With hypoxia -- Other, please specify The patient's Clinical Indicators include: ---- Query created by: Yohana Willard on 04/20/2018 3:32 PM Electronically signed by: Emeterio Griffiths 04/21/2018 8:39 AM
[2018-04-21] MEDS: Aspirin 325 mg EC Tablets PO SCH (09:38)
[2018-04-21] MEDS: Magnesium Oxide 400 mg Tab UD PO SCH ×2 (09:41→16:10)
--- NOTE | 2018-04-21 09:43 | CP.PCM.PN ---
<Emeterio Griffiths - Last Filed: 04/21/18 14:16> Subjective - Date & Time of Evaluation Date of Evaluation: 04/21/18 Time of Evaluation: 09:43 - Subjective Subjective: pt seen and evaluated at bedside this morning. Intubated, lying in bed, HOB elevated, NAD. Pt is more awake/alert and responds to commands today. Vent settings AC Mode: rate 16, Vt 0.45, FIO2: 50%, and PEEP of 5. BP improved and is off pressors but monitor shows afib with HR in 140-150s. Lactic acid normalized on ABG today. WBC up 29. Afebrile overnight. Further review of systems unattainable due to intubation. Objective - Vital Signs/Intake and Output Vital Signs (last 24 hours): Temp Pulse Resp BP Pulse Ox 99.3 F 145 H 24 112/70 99 04/21/18 08:00 04/21/18 08:00 04/21/18 08:00 04/21/18 08:00 04/21/18 08:00 Intake and Output: 04/21/18 04/21/18 06:59 18:59 Intake Total 1735 Output Total 1200 Balance 535 - Medications Medications: Current Medications Acetaminophen (Tylenol 325mg Tab) 650 mg PO Q6 PRN PRN Reason: Fever >100.4 F Last Admin: 04/19/18 04:57 Dose: 650 mg Acetaminophen (Tylenol 325mg Tab) 650 mg PO Q6 PRN PRN Reason: Pain, Mild (1-3) Acetaminophen (Tylenol 650 Mg Supp) 650 mg TN ONCE PRN PRN Reason: Fever >100.4 F Last Admin: 04/19/18 15:35 Dose: 650 mg Aspirin (Ecotrin) 325 mg PO DAILY COUNT INCLUDES THE [facility] Last Admin: 04/20/18 11:37 Dose: 325 mg Atorvastatin Calcium (Lipitor) 40 mg PO DAILY COUNT INCLUDES THE [facility] Last Admin: 04/20/18 11:37 Dose: 40 mg Docusate Sodium (Colace) 100 mg PO TID PRN PRN Reason: Constipation Duloxetine HCl (Cymbalta) 60 mg PO HS COUNT INCLUDES THE [facility] Last Admin: 04/20/18 22:00 Dose: Not Given Glycerin (Glycerin Adult Suppository) 1 sup TN ONCE PRN PRN Reason: constipation Heparin Sodium (Porcine) (Heparin) 5,000 units SC Q8 COUNT INCLUDES THE [facility]; Protocol Last Admin: 04/21/18 00:45 Dose: 5,000 units Meropenem 500 mg/ Sodium (Chloride) 100 mls @ 100 mls/hr IVPB Q8 PATTI; Protocol Last Admin: 04/21/18 00:47 Dose: 100 mls/hr Vancomycin HCl 500 mg/ Sodium (Chloride) 100 mls @ 100 mls/hr IVPB Q12 PATTI; Protocol Last Admin: 04/20/18 20:37 Dose: 100 mls/hr Amiodarone HCl 150 mg/ (Dextrose) 103 mls @ 618 mls/hr IVPB ONCE ONE; Protocol Stop: 04/21/18 09:49 Amiodarone HCl 900 mg/ (Dextrose) 518 mls @ 34.53 mls/hr IV .Q15H1M COUNT INCLUDES THE [facility]; Protocol Magnesium Oxide (Mag-Ox) 400 mg PO BID COUNT INCLUDES THE [facility] Last Admin: 04/20/18 16:02 Dose: 400 mg Multivitamins/Minerals (Therapeutic-M Tab) 1 tab PO DAILY COUNT INCLUDES THE [facility] Last Admin: 04/20/18 11:39 Dose: 1 tab Ondansetron HCl (Zofran Inj) 4 mg IVP Q6 PRN PRN Reason: Nausea/Vomiting Last Admin: 04/19/18 22:46 Dose: 4 mg Oxybutynin Chloride (Ditropan Tab) 5 mg PO TID COUNT INCLUDES THE [facility] Pantoprazole Sodium (Protonix Ec Tab) 40 mg PO DAILY COUNT INCLUDES THE [facility] Last Admin: 04/20/18 11:38 Dose: 40 mg Potassium Phos/Sodium Phos (Neutra-Phos) 1 pkt PO QID COUNT INCLUDES THE [facility] Last Admin: 04/20/18 21:17 Dose: 1 pkt Sennosides (Senokot Tab) 8.6 mg PO BID PRN PRN Reason: Constipation Last Admin: 04/19/18 22:46 Dose: 8.6 mg Simethicone (Mylicon Chew Tab) 80 mg PO Q6 PRN PRN Reason: Gas relief Tamsulosin HCl (Flomax) 0.4 mg PO DAILY COUNT INCLUDES THE [facility] Last Admin: 04/20/18 11:37 Dose: 0.4 mg - Labs Labs: 04/21/18 04:20 04/21/18 04:20 PT 17.1 Seconds (9.8-13.1) H 04/19/18 17:25 INR 1.5 04/19/18 17:25 APTT 33.9 Seconds (25.6-37.1) 04/19/18 04:30 - Constitutional Appears: Non-toxic, No Acute Distress, Other (intubated) - Head Exam Head Exam: ATRAUMATIC, NORMOCEPHALIC - Eye Exam Eye Exam: EOMI, PERRL - ENT Exam ENT Exam: Mucous Membranes Moist - Respiratory Exam Respiratory Exam: Clear to Ausculation Bilateral. absent: Accessory Muscle Use, Rales, Rhonchi, Wheezes, Respiratory Distress, NORMAL BREATHING PATTERN - Cardiovascular Exam Cardiovascular Exam: Tachycardia, Irregular Rhythm, +S1, +S2. absent: REGULAR RHYTHM, JVD, RRR, Murmur - GI/Abdominal Exam GI & Abdominal Exam: Soft, Normal Bowel Sounds. absent: Tenderness - Extremities Exam Extremities Exam: Normal Capillary Refill, Pedal Edema. absent: Calf Tenderness - Neurological Exam Neurological Exam: Alert, Awake, CN II-XII Intact - Psychiatric Exam Psychiatric exam: Normal Affect, Normal Mood - Skin Skin Exam: Dry, Intact Assessment and Plan - Assessment and Plan (Free Text) Assessment: 77 y/o female patient with PMH frequent UTI, urinary incontinence , HTN,depression with anxiety, chronic constipation ,renal stones, CKD stage III admitted for sepsis secondary to UTI. 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 ID consulted and antibiotics changed to Meropenem IV, Intubated in ICU on 04/20 for impending respiratory failure. Pt is currently intubated, but awake and alert and following commands today. Plan: E.Coli Septicemia with septic shock -improving -off pressors -blood/urine cx: E.coli -lactic acid: 1.2 on ABG -Meropenem -Vancomycin 1gm QD -intubated -WBC at 29.7 -monitor CBC/[employer]ICE [employer]IDENT Acute Respiratory Failure: -intubated -current setting: AC mode: Rate 16, Vt: 0.45, FIO2 50%, PEEP 5 -daily ABG/shock panel -CXR daily -daily assessments for weaning Pyelonephritis -f/u cultures: E.coli -Continue Meropenem IV -renal u/s pending -c/w Vanco 1 G IV -f/u ID recommendations -urology on board, recommends waiting for medical stabilization prior to intervention Atrial Fibrillation w RVR: -repeat EKG today shows afib w RVR -start Amidodarone (bolus dose followed by drip) -c/w cardiac monitoring -once BP stabilizes will consider resuming home Metoprolol 12.5mg Q12H -cardiology on board Acute Renal Injury -Improving -BUN/Cr: 37/1.5 -GFR: 33 -daily CMP -CT abdomen showed: 1. Pattern suspicious for potential right pyelonephritis with stable left perinephric reaction identified. Multiple intrarenal calculi identified bilaterally as discussed above. No definite obstructive uropathy bilaterally. Troponemia -Echo showed LVF with EF 55 % -trending down -as per cardio likely 2/ to combination of septic shock and YASEMIN Foreign Bodies: -right femoral triple lumen Prophylaxis -HOB elevation -Protonix -lovenox 30mg SC QD <Lauren Ornelas - Last Filed: 04/21/18 17:32> Objective - Vital Signs/Intake and Output Vital Signs (last 24 hours): Temp Pulse Resp BP Pulse Ox 99.9 F H 95 H 20 106/63 100 04/21/18 16:00 04/21/18 16:00 04/21/18 16:00 04/21/18 16:00 04/21/18 16:00 Intake and Output: 04/21/18 04/21/18 06:59 18:59 Intake Total 1735 380 Output Total 1200 Balance 535 380 - Medications Medications: Current Medications Acetaminophen (Tylenol 325mg Tab) 650 mg PO Q6 PRN PRN Reason: Fever >100.4 F Last Admin: 04/21/18 14:03 Dose: 650 mg Acetaminophen (Tylenol 325mg Tab) 650 mg PO Q6 PRN PRN Reason: Pain, Mild (1-3) Acetaminophen (Tylenol 650 Mg Supp) 650 mg TN ONCE PRN PRN Reason: Fever >100.4 F Last Admin: 04/19/18 15:35 Dose: 650 mg Aspirin (Ecotrin) 325 mg PO DAILY COUNT INCLUDES THE [facility] Last Admin: 04/21/18 09:38 Dose: 325 mg Atorvastatin Calcium (Lipitor) 40 mg PO DAILY COUNT INCLUDES THE [facility] Last Admin: 04/21/18 09:40 Dose: 40 mg Docusate Sodium (Colace) 100 mg PO TID PRN PRN Reason: Constipation Duloxetine HCl (Cymbalta) 60 mg PO HS COUNT INCLUDES THE [facility] Last Admin: 04/20/18 22:00 Dose: Not Given Glycerin (Glycerin Adult Suppository) 1 sup TN ONCE PRN PRN Reason: constipation Lactated Ringer's (Lactated Ringer's) 1,000 mls @ 100 mls/hr IV .Q10H COUNT INCLUDES THE [facility] Last Admin: 04/21/18 15:51 Dose: 100 mls/hr Meropenem 1 gm/ Sodium (Chloride) 100 mls @ 100 mls/hr IVPB Q8 PATTI; Protocol Last Admin: 04/21/18 16:10 Dose: 100 mls/hr Magnesium Sulfate (Magnesium Sulfate 2 Gm/50 Ml Water) 2 gm in 50 mls @ 50 mls/hr IV ONCE ONE Stop: 04/21/18 17:29 Esmolol HCl 2,500 mg/ Sodium (Chloride) 250 mls @ 31.5 mls/hr IV .Q7H57M ONE; Protocol Stop: 04/22/18 00:12 Heparin Sodium/Dextrose (Heparin 25,000 Units/250ml In D5w) 25,000 units in 250 mls @ 10 mls/hr IV .Q24H COUNT INCLUDES THE [facility]; Protocol Magnesium Oxide (Mag-Ox) 400 mg PO BID COUNT INCLUDES THE [facility] Last Admin: 04/21/18 16:10 Dose: 400 mg Multivitamins/Minerals (Therapeutic-M Tab) 1 tab PO DAILY COUNT INCLUDES THE [facility] Last Admin: 04/21/18 10:05 Dose: 1 tab Ondansetron HCl (Zofran Inj) 4 mg IVP Q6 PRN PRN Reason: Nausea/Vomiting Last Admin: 04/19/18 22:46 Dose: 4 mg Oxybutynin Chloride (Ditropan Tab) 5 mg PO TID COUNT INCLUDES THE [facility] Pantoprazole Sodium (Protonix Ec Tab) 40 mg PO DAILY COUNT INCLUDES THE [facility] Last Admin: 04/21/18 10:04 Dose: 40 mg Potassium Phos/Sodium Phos (Neutra-Phos) 1 pkt PO QID COUNT INCLUDES THE [facility] Last Admin: 04/21/18 16:10 Dose: 1 pkt Sennosides (Senokot Tab) 8.6 mg PO BID PRN PRN Reason: Constipation Last Admin: 04/19/18 22:46 Dose: 8.6 mg Simethicone (Mylicon Chew Tab) 80 mg PO Q6 PRN PRN Reason: Gas relief Tamsulosin HCl (Flomax) 0.4 mg PO DAILY PATTI Last Admin: 04/21/18 09:39 Dose: 0.4 mg - Labs Labs: 04/21/18 04:20 04/21/18 04:20 PT 17.1 Seconds (9.8-13.1) H 04/19/18 17:25 INR 1.5 04/19/18 17:25 APTT 33.9 Seconds (25.6-37.1) 04/19/18 04:30 Attending/Attestation - Attestation I have personally seen and examined this patient.: Yes I have fully participated in the care of the patient.: Yes I have reviewed all pertinent clinical information, including history, physical exam and plan: Yes Notes (Text): Septic Shock due to E Coli Bacteremia due to Acute Pyelonephritis Acute Hypoxemic Respiratory Failure Afib with RVR A Flutter , history YASEMIN Troponin Elevation likely demand ischemia Depression - Pt is intubated on Vent - 14/450/5/40% - off pressors - cont IV Meropenem as rec by Dr Traylor - Evaluated by Dr Kathleen - rec to start Esmolol drip and Heparin drip - d/c Amiodarone drip - Blood c/s :and Urine c/s : E coli
[2018-04-21] MEDS ORDERED: Amiodarone 450 MG in Sodium Chloride 0.9% 250 ML IV SCH (09:45)
[2018-04-21] MEDS ORDERED: Amiodarone 900 MG in Dextrose 5% In Water 500 ML IVPB SCH (09:50)
--- NOTE | 2018-04-21 09:51 | CP.PCM.PN ---
Subjective - Date & Time of Evaluation Date of Evaluation: 04/21/18 Time of Evaluation: 09:51 - Subjective Subjective: ID note- Patient seen and examined today in ICU. remains intubated but is off pressors. She is awake and can nod to questions. as per nurse she is urinating well. as per nurse pt. started on amiodarone secondary to rapid a.fib. Objective - Vital Signs/Intake and Output Vital Signs (last 24 hours): Temp Pulse Resp BP Pulse Ox 99.3 F 145 H 24 112/70 99 04/21/18 08:00 04/21/18 08:00 04/21/18 08:00 04/21/18 08:00 04/21/18 08:00 Intake and Output: 04/21/18 04/21/18 06:59 18:59 Intake Total 1735 Output Total 1200 Balance 535 - Medications Medications: Current Medications Acetaminophen (Tylenol 325mg Tab) 650 mg PO Q6 PRN PRN Reason: Fever >100.4 F Last Admin: 04/19/18 04:57 Dose: 650 mg Acetaminophen (Tylenol 325mg Tab) 650 mg PO Q6 PRN PRN Reason: Pain, Mild (1-3) Acetaminophen (Tylenol 650 Mg Supp) 650 mg MI ONCE PRN PRN Reason: Fever >100.4 F Last Admin: 04/19/18 15:35 Dose: 650 mg Aspirin (Ecotrin) 325 mg PO DAILY [facility] Last Admin: 04/20/18 11:37 Dose: 325 mg Atorvastatin Calcium (Lipitor) 40 mg PO DAILY [facility] Last Admin: 04/20/18 11:37 Dose: 40 mg Docusate Sodium (Colace) 100 mg PO TID PRN PRN Reason: Constipation Duloxetine HCl (Cymbalta) 60 mg PO HS [facility] Last Admin: 04/20/18 22:00 Dose: Not Given Glycerin (Glycerin Adult Suppository) 1 sup MI ONCE PRN PRN Reason: constipation Heparin Sodium (Porcine) (Heparin) 5,000 units SC Q8 [facility]; Protocol Last Admin: 04/21/18 00:45 Dose: 5,000 units Meropenem 500 mg/ Sodium (Chloride) 100 mls @ 100 mls/hr IVPB Q8 [facility]; Protocol Last Admin: 04/21/18 00:47 Dose: 100 mls/hr Vancomycin HCl 500 mg/ Sodium (Chloride) 100 mls @ 100 mls/hr IVPB Q12 [facility]; Protocol Last Admin: 04/20/18 20:37 Dose: 100 mls/hr Amiodarone HCl 450 mg/ Sodium (Chloride) 259 mls @ 34.53 mls/hr IV .[id number] [facility]; Protocol Magnesium Oxide (Mag-Ox) 400 mg PO BID [facility] Last Admin: 04/20/18 16:02 Dose: 400 mg Multivitamins/Minerals (Therapeutic-M Tab) 1 tab PO DAILY [facility] Last Admin: 04/20/18 11:39 Dose: 1 tab Ondansetron HCl (Zofran Inj) 4 mg IVP Q6 PRN PRN Reason: Nausea/Vomiting Last Admin: 04/19/18 22:46 Dose: 4 mg Oxybutynin Chloride (Ditropan Tab) 5 mg PO TID [facility] Pantoprazole Sodium (Protonix Ec Tab) 40 mg PO DAILY [facility] Last Admin: 04/20/18 11:38 Dose: 40 mg Potassium Phos/Sodium Phos (Neutra-Phos) 1 pkt PO QID [facility] Last Admin: 04/20/18 21:17 Dose: 1 pkt Sennosides (Senokot Tab) 8.6 mg PO BID PRN PRN Reason: Constipation Last Admin: 04/19/18 22:46 Dose: 8.6 mg Simethicone (Mylicon Chew Tab) 80 mg PO Q6 PRN PRN Reason: Gas relief Tamsulosin HCl (Flomax) 0.4 mg PO DAILY [facility] Last Admin: 04/20/18 11:37 Dose: 0.4 mg - Labs Labs: - Additional Findings Additional findings: - Constitutional Appears: Chronically Ill Additional comments: Intubated but awake - Head Exam Head Exam: ATRAUMATIC - Eye Exam Eye Exam: EOMI - ENT Exam Additional comments: ET tube in place - Respiratory Exam Additional comments: on the vent breath sounds heard b/l - Cardiovascular Exam Cardiovascular Exam: RRR, +S1, +S2 - GI/Abdominal Exam GI & Abdominal Exam: Normal Bowel Sounds, Soft Additional comments: NT, ND - Extremities Exam Extremities exam: Positive for: normal inspection - Neurological Exam Neurological exam: Alert Additional comments: awake can nod yes or no to questions ( on the vent) Laboratory Results - last 72 hr 04/18/18 04/18/1804/18/19 21:40 21:40 21:40 WBC 18.7 H D RBC 4.32 Hgb 12.8 Hct 39.9 MCV 92.3 MCH 29.7 MCHC 32.1 L RDW 13.7 Plt Count 347 MPV 7.7 Neut % (Auto) 88.7 H Lymph % (Auto) 4.0 L Cottle % (Auto) 6.9 Eos % (Auto) 0.2 Baso % (Auto) 0.2 Neut # (Auto) 16.6 H Lymph # (Auto) 0.8 L Cottle # (Auto) 1.3 H Eos # (Auto) 0.0 Baso # (Auto) 0.0 Total Counted Neutrophils % (Manual) 87 H Band Neutrophils % 1 Lymphocytes % (Manual) 3 L Reactive Lymphs % Monocytes % (Manual) 8 Eosinophils % (Manual) 1 Basophils % (Manual) Metamyelocytes % Myelocytes % Promyelocytes % Blast Cells % Plasma Cell % (Manual) Nucleated RBC % Hypersegmented Polys Smudge Cells Toxic Granulation Dohle Bodies Alissa Rods Platelet Estimate Normal Plt Clumps, EDTA Large Platelets Giant Platelets RBC Morphology Polychromasia Hypochromasia (manual) Poikilocytosis (manual Basophilic Stippling Anisocytosis (manual) Slight Microcytosis (manual) Macrocytosis (manual) Spherocytes Sickle Cells Target Cells Tear Drop Cells Slight Ovalocytes Stomatocytes Helmet Cells Driver-[place] Bodies Alana Cells Acanthocytes (Spur) Rouleaux Schistocytes PT INR APTT pCO2 pO2 HCO3 ABG pH ABG Total CO2 ABG O2 Saturation ABG O2 Content ABG Base Excess ABG Hemoglobin ABG Carboxyhemoglobin POC ABG HHb (Measured) ABG Methemoglobin ABG O2 Capacity Mahesh Test ABG Potassium A-a O2 Difference Hgb O2 Saturation Glucose Lactate Vent Mode Mechanical Rate FiO2 Tidal Volume PEEP Sodium 141 Potassium 4.5 Chloride 96 L Carbon Dioxide 28 Anion Gap 22 H BUN 29 H Creatinine 1.4 H Est GFR ( Amer) 44 Est GFR (Non-Af Amer) 36 Random Glucose 203 H Hemoglobin A1c Lactic Acid Calcium 9.4 Phosphorus Magnesium Total Bilirubin 0.5 Direct Bilirubin AST 27 ALT 12 Alkaline Phosphatase 128 H D Troponin I NT-Pro-B Natriuret Pep Total Protein 9.3 H Albumin 4.4 Globulin 4.8 H Albumin/Globulin Ratio 0.9 L Triglycerides Cholesterol LDL Cholesterol Direct HDL Cholesterol Lipase Arterial Blood Potassium Urine Color Urine Clarity Urine pH Ur Specific [place] Urine Protein Urine Glucose (UA) Urine Ketones Urine Blood Urine Nitrate Urine Bilirubin Urine Urobilinogen Ur Leukocyte Esterase Urine RBC (Auto) Urine Microscopic WBC Ur Squamous Epith Cells Urine Bacteria Vancomycin Trough Influenza Typ A,B (EIA) Negative for flu a/b 04/18/18 04/18/18 04/19/18 22:04 23:18 00:13 WBC RBC Hgb Hct MCV MCH MCHC RDW Plt Count MPV Neut % (Auto) Lymph % (Auto) Cottle % (Auto) Eos % (Auto) Baso % (Auto) Neut # (Auto) Lymph # (Auto) Cottle # (Auto) Eos # (Auto) Baso # (Auto) Total Counted Neutrophils % (Manual) Band Neutrophils % Lymphocytes % (Manual) Reactive Lymphs % Monocytes % (Manual) Eosinophils % (Manual) Basophils % (Manual) Metamyelocytes % Myelocytes % Promyelocytes % Blast Cells % Plasma Cell % (Manual) Nucleated RBC % Hypersegmented Polys Smudge Cells Toxic Granulation Dohle Bodies Alissa Rods Platelet Estimate Plt Clumps, EDTA Large Platelets Giant Platelets RBC Morphology Polychromasia Hypochromasia (manual) Poikilocytosis (manual Basophilic Stippling Anisocytosis (manual) Microcytosis (manual) Macrocytosis (manual) Spherocytes Sickle Cells Target Cells Tear Drop Cells Ovalocytes Stomatocytes Helmet Cells [place] Bodies [place] Cells Acanthocytes (Spur) Rouleaux Schistocytes PT INR APTT pCO2 pO2 HCO3 ABG pH ABG Total CO2 ABG O2 Saturation ABG O2 Content ABG Base Excess ABG Hemoglobin ABG Carboxyhemoglobin POC ABG HHb (Measured) ABG Methemoglobin ABG O2 Capacity Mahesh Test ABG Potassium A-a O2 Difference Hgb O2 Saturation Glucose Lactate Vent Mode Mechanical Rate FiO2 Tidal Volume PEEP Sodium Potassium Chloride Carbon Dioxide Anion Gap BUN Creatinine Est GFR ( Amer) Est GFR (Non-Af Amer) Random Glucose Hemoglobin A1c Lactic Acid 4.2 H* Calcium Phosphorus Magnesium Total Bilirubin Direct Bilirubin AST ALT Alkaline Phosphatase Troponin I < 0.0120 NT-Pro-B Natriuret Pep Total Protein Albumin Globulin Albumin/Globulin Ratio Triglycerides Cholesterol LDL Cholesterol Direct HDL Cholesterol Lipase Arterial Blood Potassium Urine Color Straw Urine Clarity Slighty-cloudy Urine pH 7.0 Ur Specific [place] 1.010 Urine Protein 30 Urine Glucose (UA) 50 Urine Ketones Negative Urine Blood Moderate Urine Nitrate Negative Urine Bilirubin Negative Urine Urobilinogen 0.2-1.0 Ur Leukocyte Esterase Mod Urine RBC (Auto) 56 H Urine Microscopic WBC 60 H Ur Squamous Epith Cells 2 Urine Bacteria Rare Vancomycin Trough Influenza Typ A,B (EIA) 04/19/18 04/19/18 04/19/18 00:46 01:17 04:30 WBC RBC Hgb Hct MCV MCH MCHC RDW Plt Count MPV Neut % (Auto) Lymph % (Auto) Cottle % (Auto) Eos % (Auto) Baso % (Auto) Neut # (Auto) Lymph # (Auto) Cottle # (Auto) Eos # (Auto) Baso # (Auto) Total Counted Neutrophils % (Manual) Band Neutrophils % Lymphocytes % (Manual) Reactive Lymphs % Monocytes % (Manual) Eosinophils % (Manual) Basophils % (Manual) Metamyelocytes % Myelocytes % Promyelocytes % Blast Cells % Plasma Cell % (Manual) Nucleated RBC % Hypersegmented Polys Smudge Cells Toxic Granulation Dohle Bodies Alissa Rods Platelet Estimate Plt Clumps, EDTA Large Platelets Giant Platelets RBC Morphology Polychromasia Hypochromasia (manual) Poikilocytosis (manual Basophilic Stippling Anisocytosis (manual) Microcytosis (manual) Macrocytosis (manual) Spherocytes Sickle Cells Target Cells Tear Drop Cells Ovalocytes Stomatocytes Helmet Cells [place] Bodies [place] Cells Acanthocytes (Spur) Rouleaux Schistocytes PT INR APTT pCO2 pO2 HCO3 ABG pH ABG Total CO2 ABG O2 Saturation ABG O2 Content ABG Base Excess ABG Hemoglobin ABG Carboxyhemoglobin POC ABG HHb (Measured) ABG Methemoglobin ABG O2 Capacity Mahesh Test ABG Potassium A-a O2 Difference Hgb O2 Saturation Glucose Lactate Vent Mode Mechanical Rate FiO2 Tidal Volume PEEP Sodium 138 Potassium 4.0 Chloride 103 Carbon Dioxide 22 Anion Gap 17 BUN 26 H Creatinine 1.5 H Est GFR ( Amer) 41 Est GFR (Non-Af Amer) 33 Random Glucose 152 H Hemoglobin A1c Lactic Acid Calcium 8.2 L Phosphorus 1.7 L Magnesium 1.4 L Total Bilirubin 0.5 0.6 Direct Bilirubin 0.3 AST 30 21 ALT 13 15 Alkaline Phosphatase 129 H 97 Troponin I 0.5880 H* NT-Pro-B Natriuret Pep 596 Total Protein 9.3 H 7.2 Albumin 4.4 3.4 L D Globulin 4.9 H 3.8 Albumin/Globulin Ratio 0.9 L 0.9 L Triglycerides Cholesterol LDL Cholesterol Direct HDL Cholesterol Lipase 31 Arterial Blood Potassium Urine Color Urine Clarity Urine pH Ur Specific [place] Urine Protein Urine Glucose (UA) Urine Ketones Urine Blood Urine Nitrate Urine Bilirubin Urine Urobilinogen Ur Leukocyte Esterase Urine RBC (Auto) Urine Microscopic WBC Ur Squamous Epith Cells Urine Bacteria Vancomycin Trough Influenza Typ A,B (EIA) 04/19/18 04/19/18 04/19/18 04:30 04:30 04:30 WBC 20.5 H RBC 3.82 Hgb 11.3 L Hct 34.9 MCV 91.4 MCH 29.5 MCHC 32.3 L RDW 13.6 Plt Count 268 MPV 7.7 Neut % (Auto) 96.5 H Lymph % (Auto) 1.4 L Cottle % (Auto) 1.6 Eos % (Auto) 0.0 Baso % (Auto) 0.5 Neut # (Auto) 19.8 H Lymph # (Auto) 0.3 L Cottle # (Auto) 0.3 Eos # (Auto) 0.0 Baso # (Auto) 0.1 Total Counted Neutrophils % (Manual) 86 H Band Neutrophils % 6 H Lymphocytes % (Manual) 2 L Reactive Lymphs % Monocytes % (Manual) 5 Eosinophils % (Manual) Basophils % (Manual) Metamyelocytes % 1 H Myelocytes % Promyelocytes % Blast Cells % Plasma Cell % (Manual) Nucleated RBC % Hypersegmented Polys Smudge Cells Toxic Granulation Present Dohle Bodies Alissa Rods Platelet Estimate Normal Plt Clumps, EDTA Large Platelets Giant Platelets RBC Morphology Polychromasia Hypochromasia (manual) Slight Poikilocytosis (manual Basophilic Stippling Anisocytosis (manual) Microcytosis (manual) Macrocytosis (manual) Spherocytes Sickle Cells Target Cells Tear Drop Cells Ovalocytes Slight Stomatocytes Helmet Cells Driver-[place] Bodies Alana Cells Acanthocytes (Spur) Rouleaux Schistocytes PT 13.6 H INR 1.2 APTT 33.9 pCO2 pO2 HCO3 ABG pH ABG Total CO2 ABG O2 Saturation ABG O2 Content ABG Base Excess ABG Hemoglobin ABG Carboxyhemoglobin POC ABG HHb (Measured) ABG Methemoglobin ABG O2 Capacity Mahesh Test ABG Potassium A-a O2 Difference Hgb O2 Saturation Glucose Lactate Vent Mode Mechanical Rate FiO2 Tidal Volume PEEP Sodium Potassium Chloride Carbon Dioxide Anion Gap BUN Creatinine Est GFR ( Amer) Est GFR (Non-Af Amer) Random Glucose Hemoglobin A1c Lactic Acid 2.1 Calcium Phosphorus Magnesium Total Bilirubin Direct Bilirubin AST ALT Alkaline Phosphatase Troponin I NT-Pro-B Natriuret Pep Total Protein Albumin Globulin Albumin/Globulin Ratio Triglycerides Cholesterol LDL Cholesterol Direct HDL Cholesterol Lipase Arterial Blood Potassium Urine Color Urine Clarity Urine pH Ur Specific [place] Urine Protein Urine Glucose (UA) Urine Ketones Urine Blood Urine Nitrate Urine Bilirubin Urine Urobilinogen Ur Leukocyte Esterase Urine RBC (Auto) Urine Microscopic WBC Ur Squamous Epith Cells Urine Bacteria Vancomycin Trough Influenza Typ A,B (EIA) 04/19/18 04/19/18 04/19/18 04:45 09:20 15:40 WBC RBC Hgb Hct MCV MCH MCHC RDW Plt Count MPV Neut % (Auto) Lymph % (Auto) Cottle % (Auto) Eos % (Auto) Baso % (Auto) Neut # (Auto) Lymph # (Auto) Cottle # (Auto) Eos # (Auto) Baso # (Auto) Total Counted Neutrophils % (Manual) Band Neutrophils % Lymphocytes % (Manual) Reactive Lymphs % Monocytes % (Manual) Eosinophils % (Manual) Basophils % (Manual) Metamyelocytes % Myelocytes % Promyelocytes % Blast Cells % Plasma Cell % (Manual) Nucleated RBC % Hypersegmented Polys Smudge Cells Toxic Granulation Dohle Bodies Alissa Rods Platelet Estimate Plt Clumps, EDTA Large Platelets Giant Platelets RBC Morphology Polychromasia Hypochromasia (manual) Poikilocytosis (manual Basophilic Stippling Anisocytosis (manual) Microcytosis (manual) Macrocytosis (manual) Spherocytes Sickle Cells Target Cells Tear Drop Cells Ovalocytes Stomatocytes Helmet Cells Driver-[place] Bodies Alana Cells Acanthocytes (Spur) Rouleaux Schistocytes PT INR APTT pCO2 pO2 HCO3 ABG pH ABG Total CO2 ABG O2 Saturation ABG O2 Content ABG Base Excess ABG Hemoglobin ABG Carboxyhemoglobin POC ABG HHb (Measured) ABG Methemoglobin ABG O2 Capacity Mahesh Test ABG Potassium A-a O2 Difference Hgb O2 Saturation Glucose Lactate Vent Mode Mechanical Rate FiO2 Tidal Volume PEEP Sodium Potassium Chloride Carbon Dioxide Anion Gap BUN Creatinine Est GFR ( Amer) Est GFR (Non-Af Amer) Random Glucose Hemoglobin A1c 6.4 Lactic Acid Calcium Phosphorus Magnesium Total Bilirubin Direct Bilirubin AST ALT Alkaline Phosphatase Troponin I 1.0100 H* 0.9890 H* NT-Pro-B Natriuret Pep Total Protein Albumin Globulin Albumin/Globulin Ratio Triglycerides 133 D Cholesterol 135 LDL Cholesterol Direct 72 HDL Cholesterol 23 L Lipase Arterial Blood Potassium Urine Color Urine Clarity Urine pH Ur Specific [place] Urine Protein Urine Glucose (UA) Urine Ketones Urine Blood Urine Nitrate Urine Bilirubin Urine Urobilinogen Ur Leukocyte Esterase Urine RBC (Auto) Urine Microscopic WBC Ur Squamous Epith Cells Urine Bacteria Vancomycin Trough Influenza Typ A,B (EIA) 04/19/18 04/19/18 04/19/18 15:40 15:40 15:40 WBC 33.0 H D RBC 3.31 L Hgb 9.6 L Hct 30.4 L MCV 91.7 MCH 28.9 MCHC 31.6 L RDW 13.9 Plt Count 230 MPV 7.7 Neut % (Auto) 92.0 H Lymph % (Auto) 2.2 L Cottle % (Auto) 5.8 Eos % (Auto) 0.0 Baso % (Auto) 0.0 Neut # (Auto) 30.3 H Lymph # (Auto) 0.7 L Cottle # (Auto) 1.9 H Eos # (Auto) 0.0 Baso # (Auto) 0.0 Total Counted Cancelled Neutrophils % (Manual) Cancelled Band Neutrophils % Cancelled Lymphocytes % (Manual) Cancelled Reactive Lymphs % Cancelled Monocytes % (Manual) Cancelled Eosinophils % (Manual) Cancelled Basophils % (Manual) Cancelled Metamyelocytes % Cancelled Myelocytes % Cancelled Promyelocytes % Cancelled Blast Cells % Cancelled Plasma Cell % (Manual) Cancelled Nucleated RBC % Cancelled Hypersegmented Polys Cancelled Smudge Cells Cancelled Toxic Granulation Cancelled Dohle Bodies Cancelled Alissa Rods Cancelled Platelet Estimate Cancelled Plt Clumps, EDTA Cancelled Large Platelets Cancelled Giant Platelets Cancelled RBC Morphology Cancelled Polychromasia Cancelled Hypochromasia (manual) Cancelled Poikilocytosis (manual Cancelled Basophilic Stippling Cancelled Anisocytosis (manual) Cancelled Microcytosis (manual) Cancelled Macrocytosis (manual) Cancelled Spherocytes Cancelled Sickle Cells Cancelled Target Cells Cancelled Tear Drop Cells Cancelled Ovalocytes Cancelled Stomatocytes Cancelled Helmet Cells Cancelled [place] Bodies Cancelled Alana Cells Cancelled Acanthocytes (Spur) Cancelled Rouleaux Cancelled Schistocytes Cancelled PT INR APTT pCO2 pO2 HCO3 ABG pH ABG Total CO2 ABG O2 Saturation ABG O2 Content ABG Base Excess ABG Hemoglobin ABG Carboxyhemoglobin POC ABG HHb (Measured) ABG Methemoglobin ABG O2 Capacity Mahesh Test ABG Potassium A-a O2 Difference Hgb O2 Saturation Glucose Lactate Vent Mode Mechanical Rate FiO2 Tidal Volume PEEP Sodium 137 Potassium 4.1 Chloride 106 Carbon Dioxide 21 L Anion Gap 14 BUN 34 H Creatinine 2.4 H Est GFR ( Amer) 24 Est GFR (Non-Af Amer) 19 Random Glucose 114 H Hemoglobin A1c Lactic Acid 3.4 H Calcium 8.0 L Phosphorus Magnesium Total Bilirubin 0.6 Direct Bilirubin AST 35 ALT 16 Alkaline Phosphatase 95 Troponin I NT-Pro-B Natriuret Pep Total Protein 6.5 Albumin 3.0 L Globulin 3.6 Albumin/Globulin Ratio 0.8 L Triglycerides Cholesterol LDL Cholesterol Direct HDL Cholesterol Lipase Arterial Blood Potassium Urine Color Urine Clarity Urine pH Ur Specific [place] Urine Protein Urine Glucose (UA) Urine Ketones Urine Blood Urine Nitrate Urine Bilirubin Urine Urobilinogen Ur Leukocyte Esterase Urine RBC (Auto) Urine Microscopic WBC Ur Squamous Epith Cells Urine Bacteria Vancomycin Trough Influenza Typ A,B (EIA) 04/19/18 04/20/18 04/20/18 17:25 05:00 05:00 WBC 23.2 H RBC 3.26 L Hgb 9.7 L Hct 29.6 L MCV 90.9 MCH 29.7 MCHC 32.6 L RDW 14.1 Plt Count 185 MPV 8.6 Neut % (Auto) 93.2 H Lymph % (Auto) 2.2 L Cottle % (Auto) 4.1 Eos % (Auto) 0.4 Baso % (Auto) 0.1 Neut # (Auto) 21.6 H Lymph # (Auto) 0.5 L Cottle # (Auto) 1.0 H Eos # (Auto) 0.1 Baso # (Auto) 0.0 Total Counted Cancelled Neutrophils % (Manual) Cancelled Band Neutrophils % Cancelled Lymphocytes % (Manual) Cancelled Reactive Lymphs % Cancelled Monocytes % (Manual) Cancelled Eosinophils % (Manual) Cancelled Basophils % (Manual) Cancelled Metamyelocytes % Cancelled Myelocytes % Cancelled Promyelocytes % Cancelled Blast Cells % Cancelled Plasma Cell % (Manual) Cancelled Nucleated RBC % Cancelled Hypersegmented Polys Cancelled Smudge Cells Cancelled Toxic Granulation Cancelled Dohle Bodies Cancelled Alissa Rods Cancelled Platelet Estimate Cancelled Plt Clumps, EDTA Cancelled Large Platelets Cancelled Giant Platelets Cancelled RBC Morphology Cancelled Polychromasia Cancelled Hypochromasia (manual) Cancelled Poikilocytosis (manual Cancelled Basophilic Stippling Cancelled Anisocytosis (manual) Cancelled Microcytosis (manual) Cancelled Macrocytosis (manual) Cancelled Spherocytes Cancelled Sickle Cells Cancelled Target Cells Cancelled Tear Drop Cells Cancelled Ovalocytes Cancelled Stomatocytes Cancelled Helmet Cells Cancelled [place] Bodies Cancelled Alana Cells Cancelled Acanthocytes (Spur) Cancelled Rouleaux Cancelled Schistocytes Cancelled PT 17.1 H INR 1.5 APTT pCO2 pO2 HCO3 ABG pH ABG Total CO2 ABG O2 Saturation ABG O2 Content ABG Base Excess ABG Hemoglobin ABG Carboxyhemoglobin POC ABG HHb (Measured) ABG Methemoglobin ABG O2 Capacity Mahesh Test ABG Potassium A-a O2 Difference Hgb O2 Saturation Glucose Lactate Vent Mode Mechanical Rate FiO2 Tidal Volume PEEP Sodium 140 Potassium 4.0 Chloride 105 Carbon Dioxide 20 L Anion Gap 19 BUN 40 H Creatinine 2.4 H Est GFR ( Amer) 24 Est GFR (Non-Af Amer) 19 Random Glucose 102 Hemoglobin A1c Lactic Acid Calcium 8.0 L Phosphorus Magnesium 1.7 Total Bilirubin 0.8 Direct Bilirubin AST 33 ALT 20 Alkaline Phosphatase 169 H D Troponin I 0.7000 H* NT-Pro-B Natriuret Pep Total Protein 6.4 Albumin 2.9 L Globulin 3.5 Albumin/Globulin Ratio 0.8 L Triglycerides Cholesterol LDL Cholesterol Direct HDL Cholesterol Lipase Arterial Blood Potassium Urine Color Urine Clarity Urine pH Ur Specific [place] Urine Protein Urine Glucose (UA) Urine Ketones Urine Blood Urine Nitrate Urine Bilirubin Urine Urobilinogen Ur Leukocyte Esterase Urine RBC (Auto) Urine Microscopic WBC Ur Squamous Epith Cells Urine Bacteria Vancomycin Trough Influenza Typ A,B (EIA) 04/20/18 04/20/18 04/20/18 05:00 07:41 19:12 WBC RBC Hgb Hct MCV MCH MCHC RDW Plt Count MPV Neut % (Auto) Lymph % (Auto) Cottle % (Auto) Eos % (Auto) Baso % (Auto) Neut # (Auto) Lymph # (Auto) Cottle # (Auto) Eos # (Auto) Baso # (Auto) Total Counted Neutrophils % (Manual) Band Neutrophils % Lymphocytes % (Manual) Reactive Lymphs % Monocytes % (Manual) Eosinophils % (Manual) Basophils % (Manual) Metamyelocytes % Myelocytes % Promyelocytes % Blast Cells % Plasma Cell % (Manual) Nucleated RBC % Hypersegmented Polys Smudge Cells Toxic Granulation Dohle Bodies Alissa Rods Platelet Estimate Plt Clumps, EDTA Large Platelets Giant Platelets RBC Morphology Polychromasia Hypochromasia (manual) Poikilocytosis (manual Basophilic Stippling Anisocytosis (manual) Microcytosis (manual) Macrocytosis (manual) Spherocytes Sickle Cells Target Cells Tear Drop Cells Ovalocytes Stomatocytes Helmet Cells [place] Bodies [place] Cells Acanthocytes (Spur) Rouleaux Schistocytes PT INR APTT pCO2 26 L 36 pO2 65 L 112 H HCO3 22.5 23.4 ABG pH 7.48 H 7.40 ABG Total CO2 20.2 L 23.4 ABG O2 Saturation 94.7 L 97.6 ABG O2 Content 14.1 L ABG Base Excess -3.0 L -2.0 ABG Hemoglobin 10.6 L ABG Carboxyhemoglobin 0 L POC ABG HHb (Measured) 5.3 H ABG Methemoglobin 0.7 ABG O2 Capacity 14.9 L Mahesh Test Yes Yes ABG Potassium 3.7 A-a O2 Difference 159.0 128.0 Hgb O2 Saturation 94.0 L Glucose 122 H Lactate 1.1 Vent Mode Prvc/ac Mechanical Rate 16 FiO2 36.0 40.0 Tidal Volume 450 PEEP 5 Sodium 141.0 Potassium Chloride 113.0 H Carbon Dioxide Anion Gap BUN Creatinine Est GFR ( Amer) Est GFR (Non-Af Amer) Random Glucose Hemoglobin A1c Lactic Acid 3.2 H Calcium Phosphorus Magnesium Total Bilirubin Direct Bilirubin AST ALT Alkaline Phosphatase Troponin I NT-Pro-B Natriuret Pep Total Protein Albumin Globulin Albumin/Globulin Ratio Triglycerides Cholesterol LDL Cholesterol Direct HDL Cholesterol Lipase Arterial Blood Potassium 3.7 Urine Color Urine Clarity Urine pH Ur Specific [place] Urine Protein Urine Glucose (UA) Urine Ketones Urine Blood Urine Nitrate Urine Bilirubin Urine Urobilinogen Ur Leukocyte Esterase Urine RBC (Auto) Urine Microscopic WBC Ur Squamous Epith Cells Urine Bacteria Vancomycin Trough Influenza Typ A,B (EIA) 04/21/18 04/21/18 04/21/18 04:20 04:20 04:20 WBC 29.7 H RBC 3.63 L Hgb 10.6 L Hct 33.2 L MCV 91.6 MCH 29.2 MCHC 31.9 L RDW 14.6 H Plt Count 175 MPV Neut % (Auto) Lymph % (Auto) Cottle % (Auto) Eos % (Auto) Baso % (Auto) Neut # (Auto) Lymph # (Auto) Cottle # (Auto) Eos # (Auto) Baso # (Auto) Total Counted Neutrophils % (Manual) Band Neutrophils % Lymphocytes % (Manual) Reactive Lymphs % Monocytes % (Manual) Eosinophils % (Manual) Basophils % (Manual) Metamyelocytes % Myelocytes % Promyelocytes % Blast Cells % Plasma Cell % (Manual) Nucleated RBC % Hypersegmented Polys Smudge Cells Toxic Granulation Dohle Bodies Alissa Rods Platelet Estimate Plt Clumps, EDTA Large Platelets Giant Platelets RBC Morphology Polychromasia Hypochromasia (manual) Poikilocytosis (manual Basophilic Stippling Anisocytosis (manual) Microcytosis (manual) Macrocytosis (manual) Spherocytes Sickle Cells Target Cells Tear Drop Cells Ovalocytes Stomatocytes Helmet Cells Driver-[place] Bodies Alana Cells Acanthocytes (Spur) Rouleaux Schistocytes PT INR APTT pCO2 pO2 HCO3 ABG pH ABG Total CO2 ABG O2 Saturation ABG O2 Content ABG Base Excess ABG Hemoglobin ABG Carboxyhemoglobin POC ABG HHb (Measured) ABG Methemoglobin ABG O2 Capacity Mahesh Test ABG Potassium A-a O2 Difference Hgb O2 Saturation Glucose Lactate Vent Mode Mechanical Rate FiO2 Tidal Volume PEEP Sodium 141 Potassium 3.7 Chloride 110 H Carbon Dioxide 21 L Anion Gap 14 BUN 37 H Creatinine 1.5 H Est GFR ( Amer) 41 Est GFR (Non-Af Amer) 33 Random Glucose 148 H Hemoglobin A1c Lactic Acid Calcium 8.1 L Phosphorus 3.8 Magnesium 1.8 Total Bilirubin Direct Bilirubin AST ALT Alkaline Phosphatase Troponin I NT-Pro-B Natriuret Pep Total Protein Albumin Globulin Albumin/Globulin Ratio Triglycerides Cholesterol LDL Cholesterol Direct HDL Cholesterol Lipase Arterial Blood Potassium Urine Color Urine Clarity Urine pH Ur Specific [place] Urine Protein Urine Glucose (UA) Urine Ketones Urine Blood Urine Nitrate Urine Bilirubin Urine Urobilinogen Ur Leukocyte Esterase Urine RBC (Auto) Urine Microscopic WBC Ur Squamous Epith Cells Urine Bacteria Vancomycin Trough 13.2 H Influenza Typ A,B (EIA) 04/21/18 04:45 WBC RBC Hgb Hct MCV MCH MCHC RDW Plt Count MPV Neut % (Auto) Lymph % (Auto) Cottle % (Auto) Eos % (Auto) Baso % (Auto) Neut # (Auto) Lymph # (Auto) Cottle # (Auto) Eos # (Auto) Baso # (Auto) Total Counted Neutrophils % (Manual) Band Neutrophils % Lymphocytes % (Manual) Reactive Lymphs % Monocytes % (Manual) Eosinophils % (Manual) Basophils % (Manual) Metamyelocytes % Myelocytes % Promyelocytes % Blast Cells % Plasma Cell % (Manual) Nucleated RBC % Hypersegmented Polys Smudge Cells Toxic Granulation Dohle Bodies Alissa Rods Platelet Estimate Plt Clumps, EDTA Large Platelets Giant Platelets RBC Morphology Polychromasia Hypochromasia (manual) Poikilocytosis (manual Basophilic Stippling Anisocytosis (manual) Microcytosis (manual) Macrocytosis (manual) Spherocytes Sickle Cells Target Cells Tear Drop Cells Ovalocytes Stomatocytes Helmet Cells Driver-[place] Bodies [place] Cells Acanthocytes (Spur) Rouleaux Schistocytes PT INR APTT pCO2 36 pO2 123 H HCO3 21.9 ABG pH 7.37 ABG Total CO2 21.9 L ABG O2 Saturation 97.0 ABG O2 Content ABG Base Excess -3.9 L ABG Hemoglobin ABG Carboxyhemoglobin POC ABG HHb (Measured) ABG Methemoglobin ABG O2 Capacity Mahesh Test Yes ABG Potassium 3.6 A-a O2 Difference 117.0 Hgb O2 Saturation Glucose 157 H Lactate 1.2 Vent Mode A/c Mechanical Rate 16 FiO2 40.0 Tidal Volume 450 PEEP 5 Sodium 140.0 Potassium Chloride 114.0 H Carbon Dioxide Anion Gap BUN Creatinine Est GFR ( Amer) Est GFR (Non-Af Amer) Random Glucose Hemoglobin A1c Lactic Acid Calcium Phosphorus Magnesium Total Bilirubin Direct Bilirubin AST ALT Alkaline Phosphatase Troponin I NT-Pro-B Natriuret Pep Total Protein Albumin Globulin Albumin/Globulin Ratio Triglycerides Cholesterol LDL Cholesterol Direct HDL Cholesterol Lipase Arterial Blood Potassium 3.6 Urine Color Urine Clarity Urine pH Ur Specific [place] Urine Protein Urine Glucose (UA) Urine Ketones Urine Blood Urine Nitrate Urine Bilirubin Urine Urobilinogen Ur Leukocyte Esterase Urine RBC (Auto) Urine Microscopic WBC Ur Squamous Epith Cells Urine Bacteria Vancomycin Trough Influenza Typ A,B (EIA) Microbiology 04/18/18 23:04 Blood-Venous Blood Culture - Final Escherichia Coli 04/18/18 23:04 Blood-Venous Gram Stain - Final 04/18/18 22:04 Urine,Clean Catch Urine Culture - Final Escherichia Coli 04/19/18 08:10 Naris MRSA Culture (Admit) - Final MRSA DETECTED Accession No. : [id number] Patient Name / ID : LAURO RODRIGUEZ / [id number] Exam Date : 04/21/2018 04:09:15 ( Approved ) Study Comment : Sex / Age : F / 77Y Creator : Carlito Peralta MD Dictator : Carlito Peralta MD Fitness Manager : Emr Analyst : Carlito Peralta MD Approver2 : Report Date : 04/21/2018 11:07:20 My Comment : Date of service: 04/21/2018 HISTORY: intubated COMPARISON: Portable chest 04/20/2018. FINDINGS: LUNGS: Endotracheal tube is unchanged in position with nasogastric tube now placed ente ring into left upper quadrant abdomen the tip off the image. No consolidation bilaterally. Prior right apical density now not identified. PLEURA: No significant pleural effusion identified, no pneumothorax apparent. CARDIOVASCULAR: No aortic atherosclerotic calcification present. Normal cardiac size. No pulmonary vascular congestion. OSSEOUS STRUCTURES: No significant abnormalities. VISUALIZED UPPER ABDOMEN: Normal. OTHER FINDINGS: None. IMPRESSION: NG tube identified entering into the left upper quadrant abdomen. Stable ET tube. No infiltrates bilaterally. Assessment and Plan (1) ARF (acute renal failure) Status: Acute (2) Septic shock Status: Acute (3) Pyelonephritis, acute Status: Acute (4) Sepsis Status: Acute - Assessment and Plan (Free Text) Assessment: Assessment and plan Patient is a 77-year-old female with multiple medical conditions who was admitted with fever dysuria lower back pain and was found to have pyelonephritis hypotensive septic. afebrile today however, leukocytosis higher today Blood culture - e.coli pansensitive x 1 Urine culture preliminary gram- e.coli pansensitive Urinalysispositive leukocyte esterase 1. Urosepsis 2. Respiratory distress 3. Acute on chronic renal insufficiency 4. Pyelonephritis Plan Advised to continue with IV meropenem for e.coli bacteremia and urosepsis. (dose based on renal function).day #2 d/c vancomycin. Monitor white blood cell count closely. Check 2 more blood cultures. check TTE r/o vegetations. All labs and imaging and pertinent chart notes were reviewed in detail. Case was discussed with both oceanography professor. Critical care time spent 40 minutes.
[2018-04-21] MEDS: Pantoprazole 40 mg EC Tab PO SCH (10:04)
[2018-04-21] MEDS: Potassium & Sodium Phosphate PO SCH ×4 (10:04→21:03)
[2018-04-21] MEDS: Multivitamin With Minerals Tab PO SCH (10:05)
--- NOTE | 2018-04-21 11:13 | RAD ---
Date of service: 04/21/2018 HISTORY: intubated COMPARISON: Portable chest 04/20/2018. FINDINGS: LUNGS: Endotracheal tube is unchanged in position with nasogastric tube now placed entering into left upper quadrant abdomen the tip off the image. No consolidation bilaterally. Prior right apical density now not identified. PLEURA: No significant pleural effusion identified, no pneumothorax apparent. CARDIOVASCULAR: No aortic atherosclerotic calcification present. Normal cardiac size. No pulmonary vascular congestion. OSSEOUS STRUCTURES: No significant abnormalities. VISUALIZED UPPER ABDOMEN: Normal. OTHER FINDINGS: None. IMPRESSION: NG tube identified entering into the left upper quadrant abdomen. Stable ET tube. No infiltrates bilaterally.
--- NOTE | 2018-04-21 13:34 | CARD ---
APPROVED REPORT Date of service: 04/21/2018 EKG Measurement Heart [id number] <Conclusion> Atrial fibrillation with rapid ventricular response with premature ventricular or aberrantly conducted complexes Low voltage QRS Nonspecific T wave abnormality Abnormal ECG
--- NOTE | 2018-04-21 14:26 | CP.CCUPN ---
CCU Subjective - Physician Review Subjective (Free Text): In rapid A fib this AM, too hypotensive to receive further Beta blockers or Ca julio; Digoxin also given without appreciable effect. SBP 100 now, HR 140 in A fib with PVCs and couplets. Nurses report improved mental status this Am compared to previous descriptions. Breathing 25 on AC 16, TV 450, 40% and PEEP 5, Ve= 10.6. SPO2 100% . Temps 99-100, had fever spike to 102.9 F yesterday. SBP now 130/2, HR 128 from 140-150s this AM, fluid balance = 1.8 L. Other vitals and I/O's reviewed. ROS: No other pertinent negs or positives on 10+ system review obtainable due to oral intubation. PMSFH: All other Nursing and physician documentation reviewed to date; no new pertinent info noted relevant to current medical problems. EXAM- HEENT: no icterus, no gaze preference, pupils with normal reactivity noted, no nystagmus NECK: no JVD visible, supple, carotids equal upstroke bilat/no bruit CHEST: clear BS bilat, no wheezes audible HEART: irregular, distant, tachy S1S2, no rubs ABD: soft, no distension, no focal tenderness, no tympany, no guarding, no organomegaly, BS hypoactive. EXT: trace LE edema, no mottling; no calf tenderness or palpable cords, distal pulses intact and symmetrical, no cyanosis, R femoral vein TLC intact. NEURO: no gross focal motor deficits SKIN: no rashes, warm and dry LABS: WBC= 29.7 (increasing) HGB= 10.6 PLTs= 175K 7.37/36/123 Lactate = 1.2 Na= 141 K= 3.7 CL= 110 HCO3= 21 BUN/Cr= 37/1.5 BS= 148 Trop 0.70 on Apr 20 Urine Cx and Blood Cx = +E. coli CXR: (my interp)- Clear lung galicia, ETT position OK above nabeel. IMPRESSION / MAJOR PROBLEMS NOW: 1. E. coli Bacteremia 2. Sepsis / Metabolic Encephalopathy 3. Small NSTEMI 4. Paroxysmal A-Fib with RVR 5. Azotemia / Dehydation 6. Chronic Disease Anemia PLAN: 1. Ongoing abx coverage, E. coli sensitive to Kasey and Vanco 2. Would change IVFs to LR; hyperchloremic MAC evident now. 3. IV Amiodarone bolus and drip. Consider resuming Metoprolol. 4. No MV Weans until tachyarrhythmias better controlled. Trend Serial Trops, ECHO from Apr 19 reviewed. 5. Check repeat Coags, last set from April 19 reviewed. 6. Hold Cymbalta due to excessive sedative effects, as well as other anti- psychotics / INTERNATIONAL ACCOUNTING MANAGER meds reviewed on outpt meds: Desyrel, Oxybutynin. 7. No hydronephrosis on CT AP, Renal US clarified and ordered to confirm. 8. Clarify any Advance Directives.
[2018-04-21] MEDS: Lactated Ringer's 1,000 ML IV SCH (15:51)
[2018-04-21] MEDS: Meropenem 1 GM in Sodium Chloride 0.9% 100 ML IVPB SCH (16:10)
[2018-04-21] MEDS ORDERED: Potassium Chloride 20 mEq/15 ml LIQ UD PO ONE (16:12)
[2018-04-21] MEDS ORDERED: Esmolol 2,500 MG in Sodium Chloride 0.9% 250 ML IV ONE (16:16)
[2018-04-21] MEDS ORDERED: Magnesium Sulfate 2 gm/50 ml 2 GM/50 ML BAG IV ONE (16:30)
--- NOTE | 2018-04-21 16:34 | CP.PCM.PN ---
Subjective - Date & Time of Evaluation Date of Evaluation: 04/21/18 Time of Evaluation: 16:27 - Subjective Subjective: PT INTUBATED AND IN RAPID AFIB. PTS BP SOMEWHAT IMPROVED WITH IVF Objective - Vital Signs/Intake and Output Vital Signs (last 24 hours): Temp Pulse Resp BP Pulse Ox 99.9 F H 95 H 20 106/63 100 04/21/18 16:00 04/21/18 16:00 04/21/18 16:00 04/21/18 16:00 04/21/18 16:00 Intake and Output: 04/21/18 04/21/18 06:59 18:59 Intake Total 1735 Output Total 1200 Balance 535 - Medications Medications: Current Medications Acetaminophen (Tylenol 325mg Tab) 650 mg PO Q6 PRN PRN Reason: Fever >100.4 F Last Admin: 04/21/18 14:03 Dose: 650 mg Acetaminophen (Tylenol 325mg Tab) 650 mg PO Q6 PRN PRN Reason: Pain, Mild (1-3) Acetaminophen (Tylenol 650 Mg Supp) 650 mg [place] ONCE PRN PRN Reason: Fever >100.4 F Last Admin: 04/19/18 15:35 Dose: 650 mg Aspirin (Ecotrin) 325 mg PO DAILY [facility] Last Admin: 04/21/18 09:38 Dose: 325 mg Atorvastatin Calcium (Lipitor) 40 mg PO DAILY [facility] Last Admin: 04/21/18 09:40 Dose: 40 mg Docusate Sodium (Colace) 100 mg PO TID PRN PRN Reason: Constipation Duloxetine HCl (Cymbalta) 60 mg PO HS [facility] Last Admin: 04/20/18 22:00 Dose: Not Given Glycerin (Glycerin Adult Suppository) 1 sup [place] ONCE PRN PRN Reason: constipation Lactated Ringer's (Lactated Ringer's) 1,000 mls @ 100 mls/hr IV .Q10H [facility] Last Admin: 04/21/18 15:51 Dose: 100 mls/hr Meropenem 1 gm/ Sodium (Chloride) 100 mls @ 100 mls/hr IVPB Q8 PATTI; Protocol Last Admin: 04/21/18 16:10 Dose: 100 mls/hr Magnesium Sulfate 2 gm/ Sodium (Chloride) 104 mls @ 104 mls/hr IVPB ONCE ONE Stop: 04/21/18 17:10 Esmolol HCl 2,500 mg/ Sodium (Chloride) 260 mls @ 32.76 mls/hr IV .Q7H57M ONE; Protocol Stop: 04/22/18 00:12 Magnesium Oxide (Mag-Ox) 400 mg PO BID [facility] Last Admin: 04/21/18 16:10 Dose: 400 mg Multivitamins/Minerals (Therapeutic-M Tab) 1 tab PO DAILY [facility] Last Admin: 04/21/18 10:05 Dose: 1 tab Ondansetron HCl (Zofran Inj) 4 mg IVP Q6 PRN PRN Reason: Nausea/Vomiting Last Admin: 04/19/18 22:46 Dose: 4 mg Oxybutynin Chloride (Ditropan Tab) 5 mg PO TID [facility] Pantoprazole Sodium (Protonix Ec Tab) 40 mg PO DAILY [facility] Last Admin: 04/21/18 10:04 Dose: 40 mg Potassium Chloride (Potassium Chloride Oral Soln) 40 meq PO ONCE ONE Stop: 04/21/18 16:13 Potassium Phos/Sodium Phos (Neutra-Phos) 1 pkt PO QID [facility] Last Admin: 04/21/18 16:10 Dose: 1 pkt Sennosides (Senokot Tab) 8.6 mg PO BID PRN PRN Reason: Constipation Last Admin: 04/19/18 22:46 Dose: 8.6 mg Simethicone (Mylicon Chew Tab) 80 mg PO Q6 PRN PRN Reason: Gas relief Tamsulosin HCl (Flomax) 0.4 mg PO DAILY [facility] Last Admin: 04/21/18 09:39 Dose: 0.4 mg - Labs Labs: 04/21/18 04:20 04/21/18 04:20 PT 17.1 Seconds (9.8-13.1) H 04/19/18 17:25 INR 1.5 04/19/18 17:25 APTT 33.9 Seconds (25.6-37.1) 04/19/18 04:30 - Constitutional Appears: Chronically Ill - Head Exam Head Exam: ATRAUMATIC, NORMAL INSPECTION, NORMOCEPHALIC - Eye Exam Eye Exam: EOMI, Normal appearance, PERRL. absent: Conjunctival injection, Nystagmus, Periorbital swelling, Periorbital tenderness, Scleral icterus Pupil Exam: NORMAL ACCOMODATION, PERRL - ENT Exam ENT Exam: Mucous Membranes Dry. absent: Normal External Ear Exam, Normal Oropharynx, TM's Normal Bilaterally - Neck Exam Neck Exam: Full ROM, Normal Inspection. absent: Lymphadenopathy, Meningismus, Tenderness, Thyromegaly - Respiratory Exam Respiratory Exam: Rhonchi. absent: Accessory Muscle Use, Chest Wall Tenderness, Decreased Breath Sounds, Clear to Ausculation Bilateral, Prolonged Expiratory Phase, Rales, Wheezes, Respiratory Distress, Stridor, NORMAL BREATHING PATTERN - Cardiovascular Exam Cardiovascular Exam: Tachycardia, Irregular Rhythm, +S1, +S2, Murmur. absent: Bradycardia, Clicks, Diastolic murmur, Gallop, REGULAR RHYTHM, JVD, RRR, Rubs, +S4 - GI/Abdominal Exam GI & Abdominal Exam: Soft, Normal Bowel Sounds. absent: Bruit, Distended, Firm, Guarding, Rigid, Tenderness, Diminished Bowel Sounds, Hernia, Hyperactive Bowel Sounds, Hypoactive Bowel Sounds, Organomegaly, Pulsatile Mass, Rebound, Mass - Rectal Exam Rectal Exam: Deferred - Extremities Exam Extremities Exam: Normal Capillary Refill, Pedal Edema. absent: Calf Tenderness, Full ROM, Joint Swelling, Normal Inspection, Tenderness - Back Exam Back Exam: NORMAL INSPECTION. absent: CVA tenderness (L), CVA tenderness (R), Full ROM, muscle spasm, paraspinal tenderness, rash noted, tenderness, vertebral tenderness - Neurological Exam Neurological Exam: Awake - Psychiatric Exam Psychiatric exam: Anxious - Skin Skin Exam: Intact, Normal Color Assessment and Plan (1) Rapid atrial fibrillation Status: Acute (2) Respiratory failure requiring intubation Status: Acute (3) Severe sepsis Status: Acute (4) Troponin level elevated Status: Acute (5) ARF (acute renal failure) Status: Acute (6) Bilateral lower extremity edema Status: Acute (7) Pyelonephritis, acute Status: Acute (8) Severe dehydration Status: Acute (9) Aortic insufficiency Status: Chronic - Assessment and Plan (Free Text) Plan: d/c amiodarone as pt may have hx of paraxysmal afib with thrombus. rate control with esmolol drip. add full dose heparin drip. kcl 40 and mag 2gm ordered. monitor lytes daily. check le doppler to eval for possible dvt and pe. 75 min total care time
[2018-04-21] MEDS ORDERED: Heparin 25,000units in D5W 25,000 UNITS/250 ML BAG IV SCH (17:30)
[2018-04-21 18:27] LABS: HEMOGLOBIN 10.4 g/dL (12.0-16.0); MEAN CELL VOLUME 90.9 fl (81.0-99.0); MEAN CORPUSCULAR HEMOGLOBIN 29.4 pg (27.0-31.0); MEAN CORPUSCULAR HGB CONC 32.3 g/dL (33.0-37.0); RBC 3.55 Mil/uL (3.80-5.20); RED CELL DISTRIBUTION WIDTH 14.4 % (11.5-14.5); WHITE BLOOD COUNT 32.1 K/uL (4.8-10.8)
[2018-04-21] MEDS: Heparin 25,000units in D5W 25,000 UNITS/250 ML BAG IV SCH (20:08)
[2018-04-22] MEDS: Meropenem 1 GM in Sodium Chloride 0.9% 100 ML IVPB SCH ×3 (00:21→16:08)
[2018-04-22] MEDS ORDERED: Esmolol 2,500 MG in Sodium Chloride 0.9% 250 ML IV ONE (01:55)
[2018-04-22] MEDS: Lactated Ringer's 1,000 ML IV SCH ×2 (04:00→16:27)
[2018-04-22 04:23] LABS: ABG ALLEN TEST YES; ARTERIAL BLOOD GAS HCO3 23.7 mmol/L (21-28); ARTERIAL BLOOD GAS O2 SAT 97.5 % (95-98); ARTERIAL BLOOD GAS PCO2 34 mm/Hg (35-45); ARTERIAL BLOOD GAS PH 7.42 (7.35-7.45); ARTERIAL BLOOD GAS PO2 139 mm/Hg (80-100); ARTERIAL BLOOD GAS TCO2 23.1 mmol/L (22-28)
[2018-04-22 05:28] LABS: HEMOGLOBIN 9.6 g/dL (12.0-16.0); MEAN CELL VOLUME 90.3 fl (81.0-99.0); MEAN CORPUSCULAR HEMOGLOBIN 29.5 pg (27.0-31.0); MEAN CORPUSCULAR HGB CONC 32.7 g/dL (33.0-37.0); RBC 3.27 Mil/uL (3.80-5.20); RED CELL DISTRIBUTION WIDTH 14.6 % (11.5-14.5); WHITE BLOOD COUNT 26.3 K/uL (4.8-10.8)
[2018-04-22 05:37] LABS: ALB/GLOB RATIO 0.7 (1.0-2.1); ALBUMIN 2.5 g/dL (3.5-5.0); CALCIUM 7.7 mg/dL (8.4-10.2)
[2018-04-22 05:44] LABS: TROPONIN I 0.112 ng/mL (0.00-0.120)
--- NOTE | 2018-04-22 06:07 | CARD ---
APPROVED REPORT Date of service: 04/20/2018 EKG Measurement Heart [id number] <Conclusion> Sinus tachycardia with frequent premature ventricular complexes Nonspecific T wave abnormality Abnormal ECG
[2018-04-22] MEDS: Magnesium Oxide 400 mg Tab UD PO SCH ×2 (08:57→16:09)
[2018-04-22] MEDS: Meropenem 500 MG in Sodium Chloride 0.9% 100 ML IVPB SCH (08:59)
--- NOTE | 2018-04-22 09:12 | CP.PCM.PN ---
<Emeterio Griffiths - Last Filed: 04/22/18 12:23> Subjective - Date & Time of Evaluation Date of Evaluation: 04/22/18 Time of Evaluation: 09:11 - Subjective Subjective: pt seen and evaluated at bedside this morning. No acute events overnight. Pt lying in bed, HOB elevated, intubated, comfortable, NAD. Pt is awake and alert today and following commands. Vent settings, AC mode: Rate 16, Vt: 0.45, FIO2 50%, PEEP 5. Remains tachycardic in afib on monitor up to 140s. BP stable today, off pressors. Still with low grade (99.9F) temperatures but improving. Most recent labs/imaging/consults reviewed. Remaining ROS limited 2/2 to intubation status. Objective - Vital Signs/Intake and Output Vital Signs (last 24 hours): Temp Pulse Resp BP Pulse Ox 99.0 F 119 H 21 123/70 100 04/22/18 08:00 04/22/18 08:00 04/22/18 08:00 04/22/18 08:00 04/22/18 08:00 Intake and Output: 04/22/18 04/22/18 06:59 18:59 Intake Total 1560 380 Output Total 650 Balance 910 380 - Medications Medications: Current Medications Acetaminophen (Tylenol 325mg Tab) 650 mg PO Q6 PRN PRN Reason: Fever >100.4 F Last Admin: 04/21/18 14:03 Dose: 650 mg Acetaminophen (Tylenol 325mg Tab) 650 mg PO Q6 PRN PRN Reason: Pain, Mild (1-3) Last Admin: 04/22/18 00:27 Dose: 650 mg Acetaminophen (Tylenol 650 Mg Supp) 650 mg PA ONCE PRN PRN Reason: Fever >100.4 F Last Admin: 04/19/18 15:35 Dose: 650 mg Aspirin (Ecotrin) 81 mg PO DAILY [facility] Atorvastatin Calcium (Lipitor) 40 mg PO DAILY [facility] Last Admin: 04/21/18 09:40 Dose: 40 mg Docusate Sodium (Colace) 100 mg PO TID PRN PRN Reason: Constipation Duloxetine HCl (Cymbalta) 60 mg PO HS [facility] Last Admin: 04/20/18 22:00 Dose: Not Given Glycerin (Glycerin Adult Suppository) 1 sup PA ONCE PRN PRN Reason: constipation Lactated Ringer's (Lactated Ringer's) 1,000 mls @ 100 mls/hr IV .Q10H [facility] Last Admin: 04/22/18 04:00 Dose: 100 mls/hr Meropenem 1 gm/ Sodium (Chloride) 100 mls @ 100 mls/hr IVPB Q8 [facility]; Protocol Last Admin: 04/22/18 00:21 Dose: 100 mls/hr Heparin Sodium/Dextrose (Heparin 25,000 Units/250ml In D5w) 25,000 units in 250 mls @ 18 mls/hr IV .[id number] [facility]; Protocol Last Titration: 04/22/18 03:43 Dose: 15 mls/hr Esmolol HCl 2,500 mg/ Sodium (Chloride) 260 mls @ 32.76 mls/hr IV .[id number] [facility]; Protocol Stop: 04/22/18 09:51 Last Titration: 04/22/18 06:00 Dose: 50 mcg/kg/min, 32.76 mls/hr Magnesium Oxide (Mag-Ox) 400 mg PO BID [facility] Last Admin: 04/21/18 16:10 Dose: 400 mg Multivitamins/Minerals (Therapeutic-M Tab) 1 tab PO DAILY [facility] Last Admin: 04/21/18 10:05 Dose: 1 tab Ondansetron HCl (Zofran Inj) 4 mg IVP Q6 PRN PRN Reason: Nausea/Vomiting Last Admin: 04/21/18 20:05 Dose: 4 mg Oxybutynin Chloride (Ditropan Tab) 5 mg PO TID [facility] Pantoprazole Sodium (Protonix Ec Tab) 40 mg PO DAILY [facility] Last Admin: 04/21/18 10:04 Dose: 40 mg Potassium Phos/Sodium Phos (Neutra-Phos) 1 pkt PO QID [facility] Last Admin: 04/21/18 21:03 Dose: 1 pkt Sennosides (Senokot Tab) 8.6 mg PO BID PRN PRN Reason: Constipation Last Admin: 04/19/18 22:46 Dose: 8.6 mg Simethicone (Mylicon Chew Tab) 80 mg PO Q6 PRN PRN Reason: Gas relief Tamsulosin HCl (Flomax) 0.4 mg PO DAILY [facility] Last Admin: 04/21/18 09:39 Dose: 0.4 mg - Labs Labs: 04/22/18 04:45 04/22/18 04:45 PT 17.1 Seconds (9.8-13.1) H 04/19/18 17:25 INR 1.5 04/19/18 17:25 APTT 104.5 Seconds (25.6-37.1) H 04/22/18 01:59 - Constitutional Appears: Non-toxic, No Acute Distress, Other (intubated) - Head Exam Head Exam: ATRAUMATIC, NORMOCEPHALIC - Eye Exam Eye Exam: EOMI, PERRL. absent: Scleral icterus - ENT Exam ENT Exam: Mucous Membranes Moist - Respiratory Exam Respiratory Exam: Clear to Ausculation Bilateral, NORMAL BREATHING PATTERN. absent: Accessory Muscle Use, Decreased Breath Sounds, Rales, Rhonchi, Wheezes, Respiratory Distress - Cardiovascular Exam Cardiovascular Exam: Tachycardia, Irregular Rhythm, +S1, +S2. absent: Diastolic murmur, Gallop, JVD, Rubs, Murmur - GI/Abdominal Exam GI & Abdominal Exam: Soft, Normal Bowel Sounds. absent: Distended, Firm, Guarding, Rigid, Tenderness - Extremities Exam Extremities Exam: Pedal Edema - Neurological Exam Neurological Exam: Alert, Awake, CN II-XII Intact. absent: Oriented x3 (deferred (intubated)) - Skin Skin Exam: Dry, Intact, Warm Assessment and Plan - Assessment and Plan (Free Text) Assessment: 77 y/o female patient with PMH frequent UTI, urinary incontinence , HTN,depression with anxiety, chronic constipation ,renal stones, CKD stage III admitted for sepsis secondary to UTI. She was started on Rocephin 2 g IV initially , cultures were sent and urology consulted [facility] was called for hypotension on 04/19, Patient transferred to ICU for sepsis with shock , started on IVF and Levophed, WBC trended up to 33 k with lactate 3.4. ID consulted and antibiotics changed to Meropenem IV, Intubated in ICU on 04/20 for impending respiratory failure. Pt is currently intubated, but awake and alert and following commands today. Plan: E.Coli Septicemia with septic shock -improving -off pressors -blood/urine cx: E.coli -lactic acid: 1.2 on ABG -Meropenem 1g Q8H -WBC improving -monitor CBC/CMP -BP improving and stable -TTE as per ID for evaluation 2/2 to gram negative septicemia Acute Respiratory Failure: -intubated -current setting: AC mode: Rate 16, Vt: 0.45, FIO2 50%, PEEP 5 -daily ABG/shock panel -CXR daily -daily assessments for weaning once HR stabilizes Pyelonephritis -f/u cultures: E.coli -Continue Meropenem 1gm Q8H -renal u/s pending -f/u ID recommendations -urology on board, recommends waiting for medical stabilization prior to intervention Atrial Fibrillation w RVR: -remains in afib today -c/w cardiac monitoring -resumed Metroprolol -on Heparin drip -monitor coags -cardiology on board Acute Renal Injury -Improving -BUN/Cr: 32/1.1 -GFR: 48 -daily CMP -CT abdomen showed: 1. Pattern suspicious for potential right pyelonephritis with stable left perinephric reaction identified. Multiple intrarenal calculi identified bilaterally as discussed above. No definite obstructive uropathy bilaterally. Troponemia -Echo showed LVF with EF 55 % -trending down -as per cardio likely 2/ to combination of septic shock and YASEMIN Foreign Bodies: -right femoral triple lumen Prophylaxis -HOB elevation -Protonix -heparin drip <Lauren Ornelas - Last Filed: 04/22/18 15:25> Objective - Vital Signs/Intake and Output Vital Signs (last 24 hours): Temp Pulse Resp BP Pulse Ox 100 F H 143 H 26 H 128/54 L 100 04/22/18 12:00 04/22/18 14:00 04/22/18 14:00 04/22/18 14:00 04/22/18 14:00 Intake and Output: 04/22/18 04/22/18 06:59 18:59 Intake Total 1560 1863 Output Total 650 Balance 910 1863 - Medications Medications: Current Medications Acetaminophen (Tylenol 325mg Tab) 650 mg PO Q6 PRN PRN Reason: Fever >100.4 F Last Admin: 04/21/18 14:03 Dose: 650 mg Acetaminophen (Tylenol 325mg Tab) 650 mg PO Q6 PRN PRN Reason: Pain, Mild (1-3) Last Admin: 04/22/18 00:27 Dose: 650 mg Acetaminophen (Tylenol 650 Mg Supp) 650 mg PA ONCE PRN PRN Reason: Fever >100.4 F Last Admin: 04/19/18 15:35 Dose: 650 mg Aspirin (Ecotrin) 81 mg PO DAILY [facility] Last Admin: 04/22/18 08:56 Dose: 81 mg Atorvastatin Calcium (Lipitor) 40 mg PO DAILY [facility] Last Admin: 04/22/18 08:57 Dose: 40 mg Docusate Sodium (Colace) 100 mg PO TID PRN PRN Reason: Constipation Duloxetine HCl (Cymbalta) 60 mg PO HS [facility] Last Admin: 04/20/18 22:00 Dose: Not Given Glycerin (Glycerin Adult Suppository) 1 sup PA ONCE PRN PRN Reason: constipation Lactated Ringer's (Lactated Ringer's) 1,000 mls @ 100 mls/hr IV .Q10H [facility] Last Admin: 04/22/18 04:00 Dose: 100 mls/hr Meropenem 1 gm/ Sodium (Chloride) 100 mls @ 100 mls/hr IVPB Q8 [facility]; Protocol Last Admin: 04/22/18 09:17 Dose: 100 mls/hr Heparin Sodium/Dextrose (Heparin 25,000 Units/250ml In D5w) 25,000 units in 250 mls @ 18 mls/hr IV .[id number] [facility]; Protocol Last Titration: 04/22/18 03:43 Dose: 15 mls/hr Heparin Sodium/Dextrose (Heparin 25,000 Units/250ml In D5w) 25,000 units in 250 mls @ 15 mls/hr IV .[id number] [facility]; Protocol Last Admin: 04/22/18 11:30 Dose: 15 mls/hr Magnesium Oxide (Mag-Ox) 400 mg PO BID [facility] Last Admin: 04/22/18 08:57 Dose: 400 mg Metoprolol Succinate (Toprol Xl) 25 mg PO DAILY [facility] Metoprolol Tartrate (Lopressor) 5 mg IVP Q6 [facility] Last Admin: 04/22/18 11:08 Dose: 5 mg Multivitamins/Minerals (Therapeutic-M Tab) 1 tab PO DAILY [facility] Last Admin: 04/22/18 09:23 Dose: 1 tab Ondansetron HCl (Zofran Inj) 4 mg IVP Q6 PRN PRN Reason: Nausea/Vomiting Last Admin: 04/21/18 20:05 Dose: 4 mg Pantoprazole Sodium (Protonix Ec Tab) 40 mg PO DAILY [facility] Last Admin: 04/22/18 09:23 Dose: 40 mg Potassium Phos/Sodium Phos (Neutra-Phos) 1 pkt PO QID [facility] Last Admin: 04/22/18 14:21 Dose: 1 pkt - Labs Labs: 04/22/18 04:45 04/22/18 04:45 PT 17.1 Seconds (9.8-13.1) H 04/19/18 17:25 INR 1.5 04/19/18 17:25 APTT 62.8 Seconds (25.6-37.1) H 04/22/18 08:30 Attending/Attestation - Attestation I have personally seen and examined this patient.: Yes I have fully participated in the care of the patient.: Yes I have reviewed all pertinent clinical information, including history, physical exam and plan: Yes Notes (Text): Septic Shock due to E Coli Bacteremia due to Acute Pyelonephritis Acute Hypoxemic Respiratory Failure Afib with RVR A Flutter , history YASEMIN Troponin Elevation likely demand ischemia Depression - Pt is intubated on Vent - 14/450/5/40% - off pressors - cont IV Meropenem as rec by Dr Castano - Evaluated by Dr Kathleen - rec to start Esmolol drip and Heparin drip, Esmolol drip d/c today , pt started on IV Metoprolol, will start low dose Toprol since pt's BP if now better - Blood c/s :and Urine c/s : E coli - WBC count still elevated - pt with soft stool several times this am - will send for C diff
[2018-04-22] MEDS: Potassium & Sodium Phosphate PO SCH ×4 (09:23→21:42)
[2018-04-22] MEDS: Pantoprazole 40 mg EC Tab PO SCH (09:23)
[2018-04-22] MEDS: Multivitamin With Minerals Tab PO SCH (09:23)
[2018-04-22] MEDS ORDERED: Potassium Chloride 20 mEq/15 ml LIQ UD PO ONE (10:11)
--- NOTE | 2018-04-22 10:42 | CP.PCM.PN ---
Subjective - Date & Time of Evaluation Date of Evaluation: 04/22/18 Time of Evaluation: 10:42 - Subjective Subjective: ID Note- Patient seen and examined today in ICU. remains on the vent but is fully awake and can follow all commands. as per nurse there is loose stool s but not diarrhea like but x 4 today. Objective - Vital Signs/Intake and Output Vital Signs (last 24 hours): Temp Pulse Resp BP Pulse Ox 99.0 F 128 H 20 127/80 100 04/22/18 08:00 04/22/18 10:00 04/22/18 10:00 04/22/18 10:00 04/22/18 10:00 Intake and Output: 04/22/18 04/22/18 06:59 18:59 Intake Total 1560 1143 Output Total 650 Balance 910 1143 - Medications Medications: Current Medications Acetaminophen (Tylenol 325mg Tab) 650 mg PO Q6 PRN PRN Reason: Fever >100.4 F Last Admin: 04/21/18 14:03 Dose: 650 mg Acetaminophen (Tylenol 325mg Tab) 650 mg PO Q6 PRN PRN Reason: Pain, Mild (1-3) Last Admin: 04/22/18 00:27 Dose: 650 mg Acetaminophen (Tylenol 650 Mg Supp) 650 mg RI ONCE PRN PRN Reason: Fever >100.4 F Last Admin: 04/19/18 15:35 Dose: 650 mg Aspirin (Ecotrin) 81 mg PO DAILY [facility] Last Admin: 04/22/18 08:56 Dose: 81 mg Atorvastatin Calcium (Lipitor) 40 mg PO DAILY [facility] Last Admin: 04/22/18 08:57 Dose: 40 mg Docusate Sodium (Colace) 100 mg PO TID PRN PRN Reason: Constipation Duloxetine HCl (Cymbalta) 60 mg PO HS [facility] Last Admin: 04/20/18 22:00 Dose: Not Given Glycerin (Glycerin Adult Suppository) 1 sup RI ONCE PRN PRN Reason: constipation Lactated Ringer's (Lactated Ringer's) 1,000 mls @ 100 mls/hr IV .Q10H [facility] Last Admin: 04/22/18 04:00 Dose: 100 mls/hr Meropenem 1 gm/ Sodium (Chloride) 100 mls @ 100 mls/hr IVPB Q8 [facility]; Protocol Last Admin: 04/22/18 09:17 Dose: 100 mls/hr Heparin Sodium/Dextrose (Heparin 25,000 Units/250ml In D5w) 25,000 units in 250 mls @ 18 mls/hr IV .[id number] [facility]; Protocol Last Titration: 04/22/18 03:43 Dose: 15 mls/hr Heparin Sodium/Dextrose (Heparin 25,000 Units/250ml In D5w) 25,000 units in 250 mls @ 15 mls/hr IV .[id number] [facility]; Protocol Magnesium Oxide (Mag-Ox) 400 mg PO BID [facility] Last Admin: 04/22/18 08:57 Dose: 400 mg Metoprolol Tartrate (Lopressor) 5 mg IVP Q6 [facility] Multivitamins/Minerals (Therapeutic-M Tab) 1 tab PO DAILY [facility] Last Admin: 04/22/18 09:23 Dose: 1 tab Ondansetron HCl (Zofran Inj) 4 mg IVP Q6 PRN PRN Reason: Nausea/Vomiting Last Admin: 04/21/18 20:05 Dose: 4 mg Oxybutynin Chloride (Ditropan Tab) 5 mg PO TID [facility] Pantoprazole Sodium (Protonix Ec Tab) 40 mg PO DAILY [facility] Last Admin: 04/22/18 09:23 Dose: 40 mg Potassium Phos/Sodium Phos (Neutra-Phos) 1 pkt PO QID [facility] Last Admin: 04/22/18 09:23 Dose: 1 pkt Sennosides (Senokot Tab) 8.6 mg PO BID PRN PRN Reason: Constipation Last Admin: 04/19/18 22:46 Dose: 8.6 mg Simethicone (Mylicon Chew Tab) 80 mg PO Q6 PRN PRN Reason: Gas relief Tamsulosin HCl (Flomax) 0.4 mg PO DAILY [facility] Last Admin: 04/22/18 08:56 Dose: 0.4 mg - Labs Labs: - Additional Findings Additional findings: - Additional Findings Additional findings: - Constitutional Appears: Chronically Ill Additional comments: Intubated but awake - Head Exam Head Exam: ATRAUMATIC - Eye Exam Eye Exam: EOMI - ENT Exam Additional comments: ET tube in place - Respiratory Exam Additional comments: on the vent breath sounds heard b/l - Cardiovascular Exam Cardiovascular Exam: RRR, +S1, +S2 - GI/Abdominal Exam GI & Abdominal Exam: Normal Bowel Sounds, Soft Additional comments: NT, ND - Extremities Exam Extremities exam: Positive for: normal inspection - Neurological Exam Neurological exam: Alert Additional comments: awake can nod yes or no to questions ( on the vent) and follows commands Laboratory Results - last 72 hr 04/20/18 04/20/18 04/20/18 05:00 05:00 05:00 WBC 23.2 H RBC 3.26 L Hgb 9.7 L Hct 29.6 L MCV 90.9 MCH 29.7 MCHC 32.6 L RDW 14.1 Plt Count 185 MPV 8.6 Neut % (Auto) 93.2 H Lymph % (Auto) 2.2 L [place] % (Auto) 4.1 Eos % (Auto) 0.4 Baso % (Auto) 0.1 Neut # (Auto) 21.6 H Lymph # (Auto) 0.5 L [place] # (Auto) 1.0 H Eos # (Auto) 0.1 Baso # (Auto) 0.0 Total Counted Cancelled Neutrophils % (Manual) Cancelled Band Neutrophils % Cancelled Lymphocytes % (Manual) Cancelled Reactive Lymphs % Cancelled Monocytes % (Manual) Cancelled Eosinophils % (Manual) Cancelled Basophils % (Manual) Cancelled Metamyelocytes % Cancelled Myelocytes % Cancelled Promyelocytes % Cancelled Blast Cells % Cancelled Plasma Cell % (Manual) Cancelled Nucleated RBC % Cancelled Hypersegmented Polys Cancelled Smudge Cells Cancelled Toxic Granulation Cancelled Dohle Bodies Cancelled Alissa Rods Cancelled Platelet Estimate Cancelled Plt Clumps, EDTA Cancelled Large Platelets Cancelled Giant Platelets Cancelled RBC Morphology Cancelled Polychromasia Cancelled Hypochromasia (manual) Cancelled Poikilocytosis (manual Cancelled Basophilic Stippling Cancelled Anisocytosis (manual) Cancelled Microcytosis (manual) Cancelled Macrocytosis (manual) Cancelled Spherocytes Cancelled Sickle Cells Cancelled Target Cells Cancelled Tear Drop Cells Cancelled Ovalocytes Cancelled Stomatocytes Cancelled Helmet Cells Cancelled [place] Bodies Cancelled Alana Cells Cancelled Acanthocytes (Spur) Cancelled Rouleaux Cancelled Schistocytes Cancelled APTT pCO2 pO2 HCO3 ABG pH ABG Total CO2 ABG O2 Saturation ABG O2 Content ABG Base Excess ABG Hemoglobin ABG Carboxyhemoglobin POC ABG HHb (Measured) ABG Methemoglobin ABG O2 Capacity Mahesh Test ABG Potassium A-a O2 Difference Hgb O2 Saturation Glucose Lactate Vent Mode Mechanical Rate FiO2 Tidal Volume PEEP Sodium 140 Potassium 4.0 Chloride 105 Carbon Dioxide 20 L Anion Gap 19 BUN 40 H Creatinine 2.4 H Est GFR ( Amer) 24 Est GFR (Non-Af Amer) 19 Random Glucose 102 Lactic Acid 3.2 H Calcium 8.0 L Phosphorus Magnesium 1.7 Total Bilirubin 0.8 AST 33 ALT 20 Alkaline Phosphatase 169 H D Troponin I 0.7000 H* Total Protein 6.4 Albumin 2.9 L Globulin 3.5 Albumin/Globulin Ratio 0.8 L Arterial Blood Potassium Vancomycin Trough C. difficile Ag & Toxin 04/20/18 04/20/18 04/21/18 07:41 19:12 04:20 WBC 29.7 H RBC 3.63 L Hgb 10.6 L Hct 33.2 L MCV 91.6 MCH 29.2 MCHC 31.9 L RDW 14.6 H Plt Count 175 MPV Neut % (Auto) Lymph % (Auto) [place] % (Auto) Eos % (Auto) Baso % (Auto) Neut # (Auto) Lymph # (Auto) [place] # (Auto) Eos # (Auto) Baso # (Auto) Total Counted Neutrophils % (Manual) Band Neutrophils % Lymphocytes % (Manual) Reactive Lymphs % Monocytes % (Manual) Eosinophils % (Manual) Basophils % (Manual) Metamyelocytes % Myelocytes % Promyelocytes % Blast Cells % Plasma Cell % (Manual) Nucleated RBC % Hypersegmented Polys Smudge Cells Toxic Granulation Dohle Bodies Alissa Rods Platelet Estimate Plt Clumps, EDTA Large Platelets Giant Platelets RBC Morphology Polychromasia Hypochromasia (manual) Poikilocytosis (manual Basophilic Stippling Anisocytosis (manual) Microcytosis (manual) Macrocytosis (manual) Spherocytes Sickle Cells Target Cells Tear Drop Cells Ovalocytes Stomatocytes Helmet Cells [place] Bodies Powell Cells Acanthocytes (Spur) Rouleaux Schistocytes APTT pCO2 26 L 36 pO2 65 L 112 H HCO3 22.5 23.4 ABG pH 7.48 H 7.40 ABG Total CO2 20.2 L 23.4 ABG O2 Saturation 94.7 L 97.6 ABG O2 Content 14.1 L ABG Base Excess -3.0 L -2.0 ABG Hemoglobin 10.6 L ABG Carboxyhemoglobin 0 L POC ABG HHb (Measured) 5.3 H ABG Methemoglobin 0.7 ABG O2 Capacity 14.9 L Mahesh Test Yes Yes ABG Potassium 3.7 A-a O2 Difference 159.0 128.0 Hgb O2 Saturation 94.0 L Glucose 122 H Lactate 1.1 Vent Mode Prvc/ac Mechanical Rate 16 FiO2 36.0 40.0 Tidal Volume 450 PEEP 5 Sodium 141.0 Potassium Chloride 113.0 H Carbon Dioxide Anion Gap BUN Creatinine Est GFR ( Amer) Est GFR (Non-Af Amer) Random Glucose Lactic Acid Calcium Phosphorus Magnesium Total Bilirubin AST ALT Alkaline Phosphatase Troponin I Total Protein Albumin Globulin Albumin/Globulin Ratio Arterial Blood Potassium 3.7 Vancomycin Trough C. difficile Ag & Toxin 04/21/18 04/21/18 04/21/18 04:20 04:20 04:45 WBC RBC Hgb Hct MCV MCH MCHC RDW Plt Count MPV Neut % (Auto) Lymph % (Auto) [place] % (Auto) Eos % (Auto) Baso % (Auto) Neut # (Auto) Lymph # (Auto) [place] # (Auto) Eos # (Auto) Baso # (Auto) Total Counted Neutrophils % (Manual) Band Neutrophils % Lymphocytes % (Manual) Reactive Lymphs % Monocytes % (Manual) Eosinophils % (Manual) Basophils % (Manual) Metamyelocytes % Myelocytes % Promyelocytes % Blast Cells % Plasma Cell % (Manual) Nucleated RBC % Hypersegmented Polys Smudge Cells Toxic Granulation Dohle Bodies Alissa Rods Platelet Estimate Plt Clumps, EDTA Large Platelets Giant Platelets RBC Morphology Polychromasia Hypochromasia (manual) Poikilocytosis (manual Basophilic Stippling Anisocytosis (manual) Microcytosis (manual) Macrocytosis (manual) Spherocytes Sickle Cells Target Cells Tear Drop Cells Ovalocytes Stomatocytes Helmet Cells [place] Bodies Powell Cells Acanthocytes (Spur) Rouleaux Schistocytes APTT pCO2 36 pO2 123 H HCO3 21.9 ABG pH 7.37 ABG Total CO2 21.9 L ABG O2 Saturation 97.0 ABG O2 Content ABG Base Excess -3.9 L ABG Hemoglobin ABG Carboxyhemoglobin POC ABG HHb (Measured) ABG Methemoglobin ABG O2 Capacity Mahesh Test Yes ABG Potassium 3.6 A-a O2 Difference 117.0 Hgb O2 Saturation Glucose 157 H Lactate 1.2 Vent Mode A/c Mechanical Rate 16 FiO2 40.0 Tidal Volume 450 PEEP 5 Sodium 141 140.0 Potassium 3.7 Chloride 110 H 114.0 H Carbon Dioxide 21 L Anion Gap 14 BUN 37 H Creatinine 1.5 H Est GFR ( Amer) 41 Est GFR (Non-Af Amer) 33 Random Glucose 148 H Lactic Acid Calcium 8.1 L Phosphorus 3.8 Magnesium 1.8 Total Bilirubin AST ALT Alkaline Phosphatase Troponin I Total Protein Albumin Globulin Albumin/Globulin Ratio Arterial Blood Potassium 3.6 Vancomycin Trough 13.2 H C. difficile Ag & Toxin 04/21/18 04/21/18 04/22/18 18:00 18:00 01:59 WBC 32.1 H RBC 3.55 L Hgb 10.4 L Hct 32.3 L MCV 90.9 MCH 29.4 MCHC 32.3 L RDW 14.4 Plt Count 166 MPV Neut % (Auto) Lymph % (Auto) [place] % (Auto) Eos % (Auto) Baso % (Auto) Neut # (Auto) Lymph # (Auto) [place] # (Auto) Eos # (Auto) Baso # (Auto) Total Counted Neutrophils % (Manual) Band Neutrophils % Lymphocytes % (Manual) Reactive Lymphs % Monocytes % (Manual) Eosinophils % (Manual) Basophils % (Manual) Metamyelocytes % Myelocytes % Promyelocytes % Blast Cells % Plasma Cell % (Manual) Nucleated RBC % Hypersegmented Polys Smudge Cells Toxic Granulation Dohle Bodies Alissa Rods Platelet Estimate Plt Clumps, EDTA Large Platelets Giant Platelets RBC Morphology Polychromasia Hypochromasia (manual) Poikilocytosis (manual Basophilic Stippling Anisocytosis (manual) Microcytosis (manual) Macrocytosis (manual) Spherocytes Sickle Cells Target Cells Tear Drop Cells Ovalocytes Stomatocytes Helmet Cells [place] Bodies Powell Cells Acanthocytes (Spur) Rouleaux Schistocytes APTT 32.9 104.5 H pCO2 pO2 HCO3 ABG pH ABG Total CO2 ABG O2 Saturation ABG O2 Content ABG Base Excess ABG Hemoglobin ABG Carboxyhemoglobin POC ABG HHb (Measured) ABG Methemoglobin ABG O2 Capacity Mahesh Test ABG Potassium A-a O2 Difference Hgb O2 Saturation Glucose Lactate Vent Mode Mechanical Rate FiO2 Tidal Volume PEEP Sodium Potassium Chloride Carbon Dioxide Anion Gap BUN Creatinine Est GFR ( Amer) Est GFR (Non-Af Amer) Random Glucose Lactic Acid Calcium Phosphorus Magnesium Total Bilirubin AST ALT Alkaline Phosphatase Troponin I Total Protein Albumin Globulin Albumin/Globulin Ratio Arterial Blood Potassium Vancomycin Trough C. difficile Ag & Toxin 04/22/18 04/22/18 04/22/18 03:58 04:45 04:45 WBC 26.3 H RBC 3.27 L Hgb 9.6 L Hct 29.5 L MCV 90.3 MCH 29.5 MCHC 32.7 L RDW 14.6 H Plt Count 160 MPV Neut % (Auto) Lymph % (Auto) [place] % (Auto) Eos % (Auto) Baso % (Auto) Neut # (Auto) Lymph # (Auto) [place] # (Auto) Eos # (Auto) Baso # (Auto) Total Counted Neutrophils % (Manual) Band Neutrophils % Lymphocytes % (Manual) Reactive Lymphs % Monocytes % (Manual) Eosinophils % (Manual) Basophils % (Manual) Metamyelocytes % Myelocytes % Promyelocytes % Blast Cells % Plasma Cell % (Manual) Nucleated RBC % Hypersegmented Polys Smudge Cells Toxic Granulation Dohle Bodies Alissa Rods Platelet Estimate Plt Clumps, EDTA Large Platelets Giant Platelets RBC Morphology Polychromasia Hypochromasia (manual) Poikilocytosis (manual Basophilic Stippling Anisocytosis (manual) Microcytosis (manual) Macrocytosis (manual) Spherocytes Sickle Cells Target Cells Tear Drop Cells Ovalocytes Stomatocytes Helmet Cells [place] Bodies Powell Cells Acanthocytes (Spur) Rouleaux Schistocytes APTT pCO2 34 L pO2 139 H HCO3 23.7 ABG pH 7.42 ABG Total CO2 23.1 ABG O2 Saturation 97.5 ABG O2 Content ABG Base Excess -1.7 ABG Hemoglobin ABG Carboxyhemoglobin POC ABG HHb (Measured) ABG Methemoglobin ABG O2 Capacity Mahesh Test Yes ABG Potassium 4.1 A-a O2 Difference 104.0 Hgb O2 Saturation Glucose 121 H Lactate 1.0 Vent Mode A/c Mechanical Rate 16 FiO2 40.0 Tidal Volume 450 PEEP 5 Sodium 142.0 144 Potassium 4.1 Chloride 116.0 H 109 H Carbon Dioxide 23 Anion Gap 16 BUN 32 H Creatinine 1.1 Est GFR ( Amer) 58 Est GFR (Non-Af Amer) 48 Random Glucose 116 H Lactic Acid Calcium 7.7 L Phosphorus Magnesium 2.2 Total Bilirubin 0.4 AST 25 ALT 33 Alkaline Phosphatase 121 Troponin I 0.1120 Total Protein 5.9 L Albumin 2.5 L Globulin 3.4 Albumin/Globulin Ratio 0.7 L Arterial Blood Potassium 4.1 Vancomycin Trough C. difficile Ag & Toxin 04/22/18 04/22/18 04/22/18 04:45 08:30 14:00 WBC RBC Hgb Hct MCV MCH MCHC RDW Plt Count MPV Neut % (Auto) Lymph % (Auto) [place] % (Auto) Eos % (Auto) Baso % (Auto) Neut # (Auto) Lymph # (Auto) [place] # (Auto) Eos # (Auto) Baso # (Auto) Total Counted Neutrophils % (Manual) Band Neutrophils % Lymphocytes % (Manual) Reactive Lymphs % Monocytes % (Manual) Eosinophils % (Manual) Basophils % (Manual) Metamyelocytes % Myelocytes % Promyelocytes % Blast Cells % Plasma Cell % (Manual) Nucleated RBC % Hypersegmented Polys Smudge Cells Toxic Granulation Dohle Bodies Alissa Rods Platelet Estimate Plt Clumps, EDTA Large Platelets Giant Platelets RBC Morphology Polychromasia Hypochromasia (manual) Poikilocytosis (manual Basophilic Stippling Anisocytosis (manual) Microcytosis (manual) Macrocytosis (manual) Spherocytes Sickle Cells Target Cells Tear Drop Cells Ovalocytes Stomatocytes Helmet Cells [place] Bodies Alana Cells Acanthocytes (Spur) Rouleaux Schistocytes APTT 62.8 H pCO2 pO2 HCO3 ABG pH ABG Total CO2 ABG O2 Saturation ABG O2 Content ABG Base Excess ABG Hemoglobin ABG Carboxyhemoglobin POC ABG HHb (Measured) ABG Methemoglobin ABG O2 Capacity Mahesh Test ABG Potassium A-a O2 Difference Hgb O2 Saturation Glucose Lactate Vent Mode Mechanical Rate FiO2 Tidal Volume PEEP Sodium Potassium Chloride Carbon Dioxide Anion Gap BUN Creatinine Est GFR ( Amer) Est GFR (Non-Af Amer) Random Glucose Lactic Acid 1.2 Calcium Phosphorus Magnesium Total Bilirubin AST ALT Alkaline Phosphatase Troponin I Total Protein Albumin Globulin Albumin/Globulin Ratio Arterial Blood Potassium Vancomycin Trough C. difficile Ag & Toxin Negative 04/22/18 15:42 WBC RBC Hgb Hct MCV MCH MCHC RDW Plt Count MPV Neut % (Auto) Lymph % (Auto) [place] % (Auto) Eos % (Auto) Baso % (Auto) Neut # (Auto) Lymph # (Auto) [place] # (Auto) Eos # (Auto) Baso # (Auto) Total Counted Neutrophils % (Manual) Band Neutrophils % Lymphocytes % (Manual) Reactive Lymphs % Monocytes % (Manual) Eosinophils % (Manual) Basophils % (Manual) Metamyelocytes % Myelocytes % Promyelocytes % Blast Cells % Plasma Cell % (Manual) Nucleated RBC % Hypersegmented Polys Smudge Cells Toxic Granulation Dohle Bodies Alissa Rods Platelet Estimate Plt Clumps, EDTA Large Platelets Giant Platelets RBC Morphology Polychromasia Hypochromasia (manual) Poikilocytosis (manual Basophilic Stippling Anisocytosis (manual) Microcytosis (manual) Macrocytosis (manual) Spherocytes Sickle Cells Target Cells Tear Drop Cells Ovalocytes Stomatocytes Helmet Cells [place] Bodies Powell Cells Acanthocytes (Spur) Rouleaux Schistocytes APTT 59.9 H pCO2 pO2 HCO3 ABG pH ABG Total CO2 ABG O2 Saturation ABG O2 Content ABG Base Excess ABG Hemoglobin ABG Carboxyhemoglobin POC ABG HHb (Measured) ABG Methemoglobin ABG O2 Capacity Mahesh Test ABG Potassium A-a O2 Difference Hgb O2 Saturation Glucose Lactate Vent Mode Mechanical Rate FiO2 Tidal Volume PEEP Sodium Potassium Chloride Carbon Dioxide Anion Gap BUN Creatinine Est GFR ( Amer) Est GFR (Non-Af Amer) Random Glucose Lactic Acid Calcium Phosphorus Magnesium Total Bilirubin AST ALT Alkaline Phosphatase Troponin I Total Protein Albumin Globulin Albumin/Globulin Ratio Arterial Blood Potassium Vancomycin Trough C. difficile Ag & Toxin Microbiology 04/20/18 18:50 Blood-Venous Blood Culture - Preliminary NO GROWTH AFTER 48 HOURS 04/20/18 18:30 Blood-Venous Blood Culture - Preliminary NO GROWTH AFTER 48 HOURS 04/18/18 23:04 Blood-Venous Blood Culture - Final Escherichia Coli 04/18/18 23:04 Blood-Venous Gram Stain - Final 04/18/18 22:04 Urine,Clean Catch Urine Culture - Final Escherichia Coli 04/19/18 08:10 Naris MRSA Culture (Admit) - Final MRSA DETECTED Assessment and Plan (1) ARF (acute renal failure) Status: Acute (2) Septic shock Status: Acute (3) Pyelonephritis, acute Status: Acute (4) Sepsis Status: Acute - Assessment and Plan (Free Text) Assessment: Assessment and plan Patient is a 77-year-old female with multiple medical conditions who was admitted with fever dysuria lower back pain and was found to have pyelonephritis hypotensive septic. off pressors low grade fever however, leukocytosis trending down today. Blood culture - e.coli pansensitive x 1 Urine culture preliminary gram- e.coli pansensitive Urinalysispositive leukocyte esterase TTE as per report- no endocarditis as per report. 1. Urosepsis 2. Respiratory distress 3. Acute on chronic renal insufficiency 4. Pyelonephritis Plan Advised to continue with IV meropenem for e.coli bacteremia and urosepsis. (dose based on renal function).day #3 Monitor white blood cell count closely. Check 2 more blood cultures. check stool c.diff. All labs and imaging and pertinent chart notes were reviewed in detail. Case was discussed with both territory manager. Critical care time spent 40 minutes.
[2018-04-22] MEDS: Metoprolol 1 mg/ml Inj IVP SCH ×3 (11:08→21:42)
[2018-04-22] MEDS: Heparin 25,000units in D5W 25,000 UNITS/250 ML BAG IV SCH (11:30)
--- NOTE | 2018-04-22 13:11 | US ---
Date of service: 04/21/2018 PROCEDURE: Ultrasound of the Kidneys HISTORY: pyelonephritis COMPARISON: CT abdomen and pelvis from 04/19/2018. TECHNIQUE: Grayscale imaging was performed. FINDINGS: RIGHT KIDNEY: Measures: 11.5 cm. Normal in size, contour and echogenicity. No solid mass lesion or hydronephrosis visualized. There are nonobstructing stones, the largest measures 1.1 x 1.4 cm nonobstructing stone in the lower pole. LEFT KIDNEY: Measures: 11.5 cm. Normal in size, contour and echogenicity. No solid mass lesion or hydronephrosis visualized. Are nonobstructing stones, the largest in the interpolar region measures 1.1 x 1.3 cm. OTHER FINDINGS: None. IMPRESSION: 1. Nonobstructing stones in the right kidney, the largest in the lower pole measures 1.1 x 1.4 cm. No hydronephrosis. 2. Nonobstructing stones in the left kidney, the largest in the interpolar region measures 1.1 x 1.3 cm. No hydronephrosis.
--- NOTE | 2018-04-22 14:49 | RAD ---
Date of service: 04/22/2018 HISTORY: intubated COMPARISON: 04/21/2018 FINDINGS: Tracheostomy tube terminates in the mid trachea. The nasogastric tube terminates in the stomach. LUNGS: The lungs are well inflated. There is improving mild pulmonary venous congestion. PLEURA: No pleural effusions or pneumothorax. CARDIOVASCULAR: The heart is normal in size. No aortic atherosclerotic calcifications present. OSSEOUS STRUCTURES: Within normal limits for the patient's age. VISUALIZED UPPER ABDOMEN: Normal. OTHER FINDINGS: None. IMPRESSION: No active pulmonary disease. Mild pulmonary venous congestion improved since the prior examination. Stable position of support tubes.
--- NOTE | 2018-04-22 15:05 | CP.CCUPN ---
CCU Subjective - Physician Review Subjective (Free Text): Remains in rapid A fib this AM, was hypotensive overnight several times requiring discontinuation of drip several times, drip resumed this AM at the time of AM rounds with 50 mcg initial starting dose and BP borderline at 100 systolic. Otherwise not distressed, awake and appears comfortable, on no sedation on MV, breathing 22 ac 16, 450ml, 40% and PEEP 5. Temps 99-100, no new fever spikes. SBP now 120s , HR 122, A Fib as noted on 12 lead EKG, fluid balance = positive 2.6L. Other vitals and I/O's reviewed. ROS: No other pertinent negs or positives on 10+ system review obtainable due to oral intubation. PMSFH: All other Nursing and physician documentation reviewed to date; no new pertinent info noted relevant to current medical problems. EXAM- HEENT: no icterus, no gaze preference, pupils with normal reactivity noted, no nystagmus NECK: no JVD visible, supple, carotids equal upstroke bilat/no bruit CHEST: clear BS bilat, no wheezes audible HEART: irregular, distant, tachy S1S2, no rubs ABD: soft, no distension, no focal tenderness, no tympany, no guarding, no organomegaly, BS hypoactive. EXT: trace LE edema, no mottling; no calf tenderness or palpable cords, distal pulses intact and symmetrical, no cyanosis, R femoral vein TLC intact. NEURO: no gross focal motor deficits SKIN: no rashes, warm and dry LABS: WBC= 26.3 HGB= 9.6 PLTs= 160K 7.42/34/139 PTT = 104.5 Na= 144 K= 4.1 CL= 109 HCO3= 23 BUN/Cr= 32/1.1 BS= 116 CXR: (my interp)- Essentially Clear lung galicia, ETT position OK above nabeel. IMPRESSION / MAJOR PROBLEMS NOW: 1. E. coli Bacteremia 2. Sepsis / Metabolic Encephalopathy 3. Small NSTEMI 4. Paroxysmal A-Fib with RVR 5. Azotemia / Dehydation 6. Chronic Disease Anemia PLAN: 1. Ongoing abx coverage, E. coli sensitive to [place], off Vanco. 2. Changed IVFs to LR; hyperchloremic MAC evident now. 3. Cardio resuming Metoprolol. 4. No MV Weans until tachyarrhythmias better controlled. ECHO from Apr 19 reviewed. 5. Heparin drip as directed by Cardiology. 6. Hold Cymbalta due to excessive sedative effects, as well as other anti- psychotics / [employer]IST[employer] DE[employer]UDENTS meds reviewed on outpt meds: Desyrel, Oxybutynin. 7. No hydronephrosis on CT AP or Renal US; +nonobstructine stones bilaterally. 8. Clarify any Advance Directives.
[2018-04-22] MEDS ORDERED: Metoprolol Succinate 25 mg XL Tab PO SCH (15:30)
--- NOTE | 2018-04-22 18:21 | CARD ---
APPROVED REPORT Date of service: 04/22/2018 EKG Measurement Heart [id number] <Conclusion> Atrial fibrillation with rapid ventricular response with premature ventricular or aberrantly conducted complexes Left axis deviation Low voltage QRS Nonspecific ST abnormality Abnormal ECG
--- NOTE | 2018-04-22 18:46 | PCM.PROC ---
Procedures Attestation:: I certify that I have explained the specified Operation(s) or Procedure(s), risks, benefits and reasonable alternatives to the Patient and/or other person responsible. The opportunity was given to ask questions and all questions answered - Extubation Clinical Parameters: Intact Cough/Gag Reflex, Spontaneous Respirations, Acceptable Vent Settings (FIO2<50%, PEEP<8, PaO2>75, pH>7.25) Weaning Criteria Met: Yes General Weaning Approaches: Pressure Support Ventilation (PSV) Weaning Patient Condition: Patient has been successfully extubated and assessed Oxygen Therapy: O2 via Venti Mask Patient Tolerated Procedure: Well Additional Comments: Discussed with Cardiology, remains in rapid A Fib post extubation.
[2018-04-23] MEDS: Meropenem 1 GM in Sodium Chloride 0.9% 100 ML IVPB SCH ×3 (00:30→17:09)
[2018-04-23] MEDS ORDERED: [UNRECOGNIZED DRUG - OTHER] IV ONE (05:29)
[2018-04-23] MEDS: Heparin 25,000units in D5W 25,000 UNITS/250 ML BAG IV SCH (05:38)
[2018-04-23] MEDS: Lactated Ringer's 1,000 ML IV SCH (05:38)
[2018-04-23] MEDS: Metoprolol 1 mg/ml Inj IVP SCH ×3 (05:51→17:05)
[2018-04-23 05:56] LABS: HEMOGLOBIN 10.1 g/dL (12.0-16.0); MEAN CELL VOLUME 90.3 fl (81.0-99.0); MEAN CORPUSCULAR HEMOGLOBIN 29.6 pg (27.0-31.0); MEAN CORPUSCULAR HGB CONC 32.8 g/dL (33.0-37.0); RBC 3.42 Mil/uL (3.80-5.20); RED CELL DISTRIBUTION WIDTH 14.5 % (11.5-14.5); WHITE BLOOD COUNT 15.8 K/uL (4.8-10.8)
[2018-04-23 06:23] LABS: ALB/GLOB RATIO 0.8 (1.0-2.1); ALBUMIN 2.9 g/dL (3.5-5.0); ALT/SGPT 24 U/L (9-52); AST/SGOT 26 U/L (14-36); BLOOD UREA NITROGEN 22 mg/dl (7-17); CALCIUM 8.1 mg/dL (8.4-10.2); GFR NON-AFRICAN AMERICAN > 60
--- NOTE | 2018-04-23 07:38 | RAD ---
Date of service: 04/23/2018 HISTORY: intubated COMPARISON: Portable chest 04/22/2017. FINDINGS: LUNGS: Orogastric and endotracheal tubes have been removed. Limited linear atelectasis left base. No consolidation bilaterally. PLEURA: No pneumothorax bilaterally. Trace left pleural effusion not excluded. None is seen at the right. CARDIOVASCULAR: No aortic atherosclerotic calcification present. Normal cardiac size. No pulmonary vascular congestion. OSSEOUS STRUCTURES: No significant abnormalities. VISUALIZED UPPER ABDOMEN: Normal. OTHER FINDINGS: None. IMPRESSION: Trace of pleural effusion. Patient extubated with orogastric tube removed as well. No consolidation, pulmonary vascular congestion or pneumothorax bilaterally.
[2018-04-23] MEDS: Multivitamin With Minerals Tab PO SCH (09:00)
[2018-04-23] MEDS: Potassium & Sodium Phosphate PO SCH ×4 (09:00→22:00)
[2018-04-23] MEDS: Pantoprazole 40 mg EC Tab PO SCH (09:00)
[2018-04-23] MEDS: Magnesium Oxide 400 mg Tab UD PO SCH ×2 (09:00→17:04)
--- NOTE | 2018-04-23 09:30 | CP.PCM.PN ---
Subjective - Date & Time of Evaluation Date of Evaluation: 04/23/18 Time of Evaluation: 09:29 - Subjective Subjective: ID Note- Patient seen and examined today in ICU. pt. is s/p extubation. She is awake and alert. she denies any fever or chills but states has some nausea. denies any dysurea. Objective - Vital Signs/Intake and Output Vital Signs (last 24 hours): Temp Pulse Resp BP Pulse Ox 99.7 F H 106 H 31 H 148/88 97 04/23/18 08:00 04/23/18 06:00 04/23/18 06:00 04/23/18 06:00 04/23/18 06:00 Intake and Output: 04/23/18 04/23/18 06:59 18:59 Intake Total 1350 300 Output Total 1150 Balance 200 300 - Medications Medications: Current Medications Acetaminophen (Tylenol 325mg Tab) 650 mg PO Q6 PRN PRN Reason: Fever >100.4 F Last Admin: 04/21/18 14:03 Dose: 650 mg Acetaminophen (Tylenol 325mg Tab) 650 mg PO Q6 PRN PRN Reason: Pain, Mild (1-3) Last Admin: 04/22/18 00:27 Dose: 650 mg Acetaminophen (Tylenol 650 Mg Supp) 650 mg SD ONCE PRN PRN Reason: Fever >100.4 F Last Admin: 04/19/18 15:35 Dose: 650 mg Aspirin (Ecotrin) 81 mg PO DAILY [facility] Last Admin: 04/22/18 08:56 Dose: 81 mg Atorvastatin Calcium (Lipitor) 40 mg PO DAILY [facility] Last Admin: 04/22/18 08:57 Dose: 40 mg Docusate Sodium (Colace) 100 mg PO TID PRN PRN Reason: Constipation Duloxetine HCl (Cymbalta) 60 mg PO HS [facility] Last Admin: 04/22/18 22:00 Dose: Not Given Glycerin (Glycerin Adult Suppository) 1 sup SD ONCE PRN PRN Reason: constipation Lactated Ringer's (Lactated Ringer's) 1,000 mls @ 100 mls/hr IV .Q10H [facility] Last Admin: 04/23/18 05:38 Dose: 100 mls/hr Meropenem 1 gm/ Sodium (Chloride) 100 mls @ 100 mls/hr IVPB Q8 [facility]; Protocol Last Admin: 04/23/18 09:07 Dose: 100 mls/hr Heparin Sodium/Dextrose (Heparin 25,000 Units/250ml In D5w) 25,000 units in 250 mls @ 15 mls/hr IV .[id number] [facility]; Protocol Last Admin: 04/23/18 05:38 Dose: 15 mls/hr Magnesium Oxide (Mag-Ox) 400 mg PO BID [facility] Last Admin: 04/22/18 16:09 Dose: 400 mg Metoprolol Succinate (Toprol Xl) 25 mg PO DAILY [facility] Last Admin: 04/22/18 16:09 Dose: 25 mg Metoprolol Tartrate (Lopressor) 5 mg IVP Q6 [facility] Last Admin: 04/23/18 05:51 Dose: 5 mg Multivitamins/Minerals (Therapeutic-M Tab) 1 tab PO DAILY [facility] Last Admin: 04/22/18 09:23 Dose: 1 tab Ondansetron HCl (Zofran Inj) 4 mg IVP Q6 PRN PRN Reason: Nausea/Vomiting Last Admin: 04/23/18 05:52 Dose: 4 mg Pantoprazole Sodium (Protonix Ec Tab) 40 mg PO DAILY [facility] Last Admin: 04/22/18 09:23 Dose: 40 mg Potassium Phos/Sodium Phos (Neutra-Phos) 1 pkt PO QID [facility] Last Admin: 04/22/18 21:42 Dose: Not Given - Labs Labs: - Additional Findings Additional findings: - - Constitutional Appears: Chronically Ill Additional comments: awake and alert - Head Exam Head Exam: ATRAUMATIC - Eye Exam Eye Exam: EOMI - Respiratory Exam Additional comments: no wheezing good aeration b/l - Cardiovascular Exam Cardiovascular Exam: RRR, +S1, +S2 - GI/Abdominal Exam GI & Abdominal Exam: Normal Bowel Sounds, Soft Additional comments: NT, ND - Extremities Exam Extremities exam: Positive for: normal inspection - Neurological Exam Neurological exam: Alert Additional comments: AAO x 3 Laboratory Results - last 72 hr 04/20/18 04/21/18 04/21/18 19:12 04:20 04:20 WBC 29.7 H RBC 3.63 L Hgb 10.6 L Hct 33.2 L MCV 91.6 MCH 29.2 MCHC 31.9 L RDW 14.6 H Plt Count 175 APTT pCO2 36 pO2 112 H HCO3 23.4 ABG pH 7.40 ABG Total CO2 23.4 ABG O2 Saturation 97.6 ABG Base Excess -2.0 Mahesh Test Yes ABG Potassium 3.7 A-a O2 Difference 128.0 Sodium 141.0 141 Chloride 113.0 H 110 H Glucose 122 H Lactate 1.1 Vent Mode Prvc/ac Mechanical Rate 16 FiO2 40.0 Tidal Volume 450 PEEP 5 Potassium 3.7 Carbon Dioxide 21 L Anion Gap 14 BUN 37 H Creatinine 1.5 H Est GFR ( Amer) 41 Est GFR (Non-Af Amer) 33 Random Glucose 148 H Lactic Acid Calcium 8.1 L Phosphorus 3.8 Magnesium 1.8 Total Bilirubin AST ALT Alkaline Phosphatase Troponin I Total Protein Albumin Globulin Albumin/Globulin Ratio Arterial Blood Potassium 3.7 Vancomycin Trough C. difficile Ag & Toxin 04/21/18 04/21/18 04/21/18 04:20 04:45 18:00 WBC 32.1 H RBC 3.55 L Hgb 10.4 L Hct 32.3 L MCV 90.9 MCH 29.4 MCHC 32.3 L RDW 14.4 Plt Count 166 APTT pCO2 36 pO2 123 H HCO3 21.9 ABG pH 7.37 ABG Total CO2 21.9 L ABG O2 Saturation 97.0 ABG Base Excess -3.9 L Mahesh Test Yes ABG Potassium 3.6 A-a O2 Difference 117.0 Sodium 140.0 Chloride 114.0 H Glucose 157 H Lactate 1.2 Vent Mode A/c Mechanical Rate 16 FiO2 40.0 Tidal Volume 450 PEEP 5 Potassium Carbon Dioxide Anion Gap BUN Creatinine Est GFR ( Amer) Est GFR (Non-Af Amer) Random Glucose Lactic Acid Calcium Phosphorus Magnesium Total Bilirubin AST ALT Alkaline Phosphatase Troponin I Total Protein Albumin Globulin Albumin/Globulin Ratio Arterial Blood Potassium 3.6 Vancomycin Trough 13.2 H C. difficile Ag & Toxin 04/21/18 04/22/18 04/22/18 18:00 01:59 03:58 WBC RBC Hgb Hct MCV MCH MCHC RDW Plt Count APTT 32.9 104.5 H pCO2 34 L pO2 139 H HCO3 23.7 ABG pH 7.42 ABG Total CO2 23.1 ABG O2 Saturation 97.5 ABG Base Excess -1.7 Mahesh Test Yes ABG Potassium 4.1 A-a O2 Difference 104.0 Sodium 142.0 Chloride 116.0 H Glucose 121 H Lactate 1.0 Vent Mode A/c Mechanical Rate 16 FiO2 40.0 Tidal Volume 450 PEEP 5 Potassium Carbon Dioxide Anion Gap BUN Creatinine Est GFR ( Amer) Est GFR (Non-Af Amer) Random Glucose Lactic Acid Calcium Phosphorus Magnesium Total Bilirubin AST ALT Alkaline Phosphatase Troponin I Total Protein Albumin Globulin Albumin/Globulin Ratio Arterial Blood Potassium 4.1 Vancomycin Trough C. difficile Ag & Toxin 04/22/18 04/22/18 04/22/18 04:45 04:45 04:45 WBC 26.3 H RBC 3.27 L Hgb 9.6 L Hct 29.5 L MCV 90.3 MCH 29.5 MCHC 32.7 L RDW 14.6 H Plt Count 160 APTT pCO2 pO2 HCO3 ABG pH ABG Total CO2 ABG O2 Saturation ABG Base Excess Mahesh Test ABG Potassium A-a O2 Difference Sodium 144 Chloride 109 H Glucose Lactate Vent Mode Mechanical Rate FiO2 Tidal Volume PEEP Potassium 4.1 Carbon Dioxide 23 Anion Gap 16 BUN 32 H Creatinine 1.1 Est GFR ( Amer) 58 Est GFR (Non-Af Amer) 48 Random Glucose 116 H Lactic Acid 1.2 Calcium 7.7 L Phosphorus Magnesium 2.2 Total Bilirubin 0.4 AST 25 ALT 33 Alkaline Phosphatase 121 Troponin I 0.1120 Total Protein 5.9 L Albumin 2.5 L Globulin 3.4 Albumin/Globulin Ratio 0.7 L Arterial Blood Potassium Vancomycin Trough C. difficile Ag & Toxin 04/22/18 04/22/18 04/22/18 08:30 14:00 15:42 WBC RBC Hgb Hct MCV MCH MCHC RDW Plt Count APTT 62.8 H 59.9 H pCO2 pO2 HCO3 ABG pH ABG Total CO2 ABG O2 Saturation ABG Base Excess Mahesh Test ABG Potassium A-a O2 Difference Sodium Chloride Glucose Lactate Vent Mode Mechanical Rate FiO2 Tidal Volume PEEP Potassium Carbon Dioxide Anion Gap BUN Creatinine Est GFR ( Amer) Est GFR (Non-Af Amer) Random Glucose Lactic Acid Calcium Phosphorus Magnesium Total Bilirubin AST ALT Alkaline Phosphatase Troponin I Total Protein Albumin Globulin Albumin/Globulin Ratio Arterial Blood Potassium Vancomycin Trough C. difficile Ag & Toxin Negative 04/23/18 04/23/18 04/23/18 05:00 05:00 05:00 WBC 15.8 H RBC 3.42 L Hgb 10.1 L Hct 30.8 L MCV 90.3 MCH 29.6 MCHC 32.8 L RDW 14.5 Plt Count 173 APTT 65.4 H pCO2 pO2 HCO3 ABG pH ABG Total CO2 ABG O2 Saturation ABG Base Excess Mahesh Test ABG Potassium A-a O2 Difference Sodium 144 Chloride 112 H Glucose Lactate Vent Mode Mechanical Rate FiO2 Tidal Volume PEEP Potassium 4.0 Carbon Dioxide 24 Anion Gap 12 BUN 22 H Creatinine 0.9 Est GFR ( Amer) > 60 Est GFR (Non-Af Amer) > 60 Random Glucose 107 H Lactic Acid Calcium 8.1 L Phosphorus Magnesium Total Bilirubin 0.7 AST 26 ALT 24 Alkaline Phosphatase 119 Troponin I Total Protein 6.5 Albumin 2.9 L Globulin 3.6 Albumin/Globulin Ratio 0.8 L Arterial Blood Potassium Vancomycin Trough C. difficile Ag & Toxin Microbiology 04/20/18 18:50 Blood-Venous Blood Culture - Preliminary NO GROWTH AFTER 48 HOURS 04/20/18 18:30 Blood-Venous Blood Culture - Preliminary NO GROWTH AFTER 48 HOURS 04/18/18 23:04 Blood-Venous Blood Culture - Final Escherichia Coli 04/18/18 23:04 Blood-Venous Gram Stain - Final 04/18/18 22:04 Urine,Clean Catch Urine Culture - Final Escherichia Coli 04/19/18 08:10 Naris MRSA Culture (Admit) - Final MRSA DETECTED Assessment and Plan (1) ARF (acute renal failure) Status: Acute (2) Septic shock Status: Acute (3) Pyelonephritis, acute Status: Acute (4) Sepsis Status: Acute - Assessment and Plan (Free Text) Assessment: Assessment and plan Patient is a 77-year-old female with multiple medical conditions who was admitted with fever dysuria lower back pain and was found to have pyelonephritis hypotensive septic. extubated low grade fever trending down leukocytosis trending down today. Blood culture - e.coli pansensitive x 1 Urine culture preliminary gram- e.coli pansensitive Urinalysispositive leukocyte esterase TTE as per report- no endocarditis as per report. repeat blood cx- neg x 2 stool c.diff tox - negative 1. Urosepsis 2. Respiratory distress 3. Acute on chronic renal insufficiency 4. Pyelonephritis Plan Advised to continue with IV meropenem for e.coli bacteremia and urosepsis. (dose based on renal function).day #4 All labs and imaging and pertinent chart notes were reviewed in detail. Case was discussed with banquet prep cook. Critical care time spent 40 minutes.
--- NOTE | 2018-04-23 09:42 | CP.PCM.PN ---
<Emeterio Griffiths - Last Filed: 04/23/18 13:03> Subjective - Date & Time of Evaluation Date of Evaluation: 04/23/18 Time of Evaluation: 09:42 - Subjective Subjective: pt seen and evaluated at bedside. Extubated evening on 04/22, tolerated well. No acute events overnight. Lying up in bed comfortably, NAD. WBC trending down, no new fever episodes but episodic low grades remain. Pt remains in Afib with RVR. Now on metoprolol IV and PO. No other complaints/concerns. Objective - Vital Signs/Intake and Output Vital Signs (last 24 hours): Temp Pulse Resp BP Pulse Ox 99.7 F H 106 H 31 H 148/88 97 04/23/18 08:00 04/23/18 06:00 04/23/18 06:00 04/23/18 06:00 04/23/18 06:00 Intake and Output: 04/23/18 04/23/18 06:59 18:59 Intake Total 1350 300 Output Total 1150 Balance 200 300 - Medications Medications: Current Medications Acetaminophen (Tylenol 325mg Tab) 650 mg PO Q6 PRN PRN Reason: Fever >100.4 F Last Admin: 04/21/18 14:03 Dose: 650 mg Acetaminophen (Tylenol 325mg Tab) 650 mg PO Q6 PRN PRN Reason: Pain, Mild (1-3) Last Admin: 04/22/18 00:27 Dose: 650 mg Acetaminophen (Tylenol 650 Mg Supp) 650 mg [place] ONCE PRN PRN Reason: Fever >100.4 F Last Admin: 04/19/18 15:35 Dose: 650 mg Aspirin (Ecotrin) 81 mg PO DAILY [facility] Last Admin: 04/22/18 08:56 Dose: 81 mg Atorvastatin Calcium (Lipitor) 40 mg PO DAILY [facility] Last Admin: 04/22/18 08:57 Dose: 40 mg Docusate Sodium (Colace) 100 mg PO TID PRN PRN Reason: Constipation Duloxetine HCl (Cymbalta) 60 mg PO HS [facility] Last Admin: 04/22/18 22:00 Dose: Not Given Glycerin (Glycerin Adult Suppository) 1 sup [place] ONCE PRN PRN Reason: constipation Lactated Ringer's (Lactated Ringer's) 1,000 mls @ 100 mls/hr IV .Q10H [facility] Last Admin: 04/23/18 05:38 Dose: 100 mls/hr Meropenem 1 gm/ Sodium (Chloride) 100 mls @ 100 mls/hr IVPB Q8 [facility]; Protocol Last Admin: 04/23/18 09:07 Dose: 100 mls/hr Heparin Sodium/Dextrose (Heparin 25,000 Units/250ml In D5w) 25,000 units in 250 mls @ 15 mls/hr IV .[id number] [facility]; Protocol Last Admin: 04/23/18 05:38 Dose: 15 mls/hr Magnesium Oxide (Mag-Ox) 400 mg PO BID [facility] Last Admin: 04/22/18 16:09 Dose: 400 mg Metoprolol Succinate (Toprol Xl) 25 mg PO DAILY [facility] Last Admin: 04/22/18 16:09 Dose: 25 mg Metoprolol Tartrate (Lopressor) 5 mg IVP Q6 [facility] Last Admin: 04/23/18 05:51 Dose: 5 mg Multivitamins/Minerals (Therapeutic-M Tab) 1 tab PO DAILY [facility] Last Admin: 04/22/18 09:23 Dose: 1 tab Ondansetron HCl (Zofran Inj) 4 mg IVP Q6 PRN PRN Reason: Nausea/Vomiting Last Admin: 04/23/18 05:52 Dose: 4 mg Pantoprazole Sodium (Protonix Ec Tab) 40 mg PO DAILY [facility] Last Admin: 04/22/18 09:23 Dose: 40 mg Potassium Phos/Sodium Phos (Neutra-Phos) 1 pkt PO QID [facility] Last Admin: 04/22/18 21:42 Dose: Not Given - Labs Labs: 04/23/18 05:00 04/23/18 05:00 PT 17.1 Seconds (9.8-13.1) H 04/19/18 17:25 INR 1.5 04/19/18 17:25 APTT 65.4 Seconds (25.6-37.1) H 04/23/18 05:00 - Constitutional Appears: Non-toxic, No Acute Distress - Head Exam Head Exam: ATRAUMATIC - Eye Exam Eye Exam: EOMI Pupil Exam: NORMAL ACCOMODATION, PERRL - ENT Exam ENT Exam: Mucous Membranes Moist - Respiratory Exam Respiratory Exam: Clear to Ausculation Bilateral, NORMAL BREATHING PATTERN. absent: Rales, Rhonchi, Wheezes - Cardiovascular Exam Cardiovascular Exam: Tachycardia, Irregular Rhythm, +S1, +S2. absent: JVD - GI/Abdominal Exam GI & Abdominal Exam: Soft, Normal Bowel Sounds. absent: Tenderness - Extremities Exam Extremities Exam: Normal Capillary Refill, Pedal Edema - Neurological Exam Neurological Exam: Alert, Awake, CN II-XII Intact Assessment and Plan - Assessment and Plan (Free Text) Assessment: 77 y/o female patient with PMH frequent UTI, urinary incontinence , HTN,dep ression with anxiety, chronic constipation ,renal stones, CKD stage III admitted for sepsis secondary to UTI. She was started on Rocephin 2 g IV initially , cultures were sent and urology consulted CONSTRUCTION SCHEDULER was called for hypotension on 04/19, Patient transferred to ICU for sepsis with shock , started on IVF and Levophed, WBC trended up to 33 k with lactate 3.4. ID consulted and antibiotics changed to Meropenem IV, Intubated in ICU on 04/20 for impending respiratory failure. Pt was extubated on 04/22 and tolerated well. Plan: E.Coli Septicemia with septic shock -improving -off pressors -blood/urine cx: E.coli -Meropenem 1g Q8H -WBC improving -monitor CBC/CMP -BP improving and stable -TTE as per ID for evaluation 2 to gram negative septicemia Acute Respiratory Failure: -resolved -extubated 04/22 Pyelonephritis -f/u cultures: E.coli -Continue Meropenem 1gm Q8H -renal u/s: nonobstructive renal stones -f/u ID recommendations -urology on board, recommends waiting for medical stabilization prior to intervention Atrial Fibrillation w RVR: -remains in afib today -c/w cardiac monitoring -resumed Metroprolol IV and PO -on Heparin drip -monitor coags -cardiology on board Acute Renal Injury -resolved -renal function back to baseline today Cr 0.9, GFR >60. -CT abdomen showed: 1. Pattern suspicious for potential right pyelonephritis with stable left perinephric reaction identified. Multiple intrarenal calculi identified bilaterally as discussed above. No definite obstructive uropathy bilaterally. Troponemia -Echo showed LVF with EF 55 % -trending down -as per cardio likely 2/2 to combination of septic shock and YASEMIN Foreign Bodies: -right femoral triple lumen Prophylaxis -HOB elevation -Protonix -heparin drip <Lauren Ornelas - Last Filed: 04/23/18 15:22> Objective - Vital Signs/Intake and Output Vital Signs (last 24 hours): Temp Pulse Resp BP Pulse Ox 99.9 F H 131 H 30 H 145/90 97 04/23/18 12:00 04/23/18 12:00 04/23/18 12:00 04/23/18 12:00 04/23/18 12:00 Intake and Output: 04/23/18 04/23/18 06:59 18:59 Intake Total 1350 300 Output Total 1150 Balance 200 300 - Medications Medications: Current Medications Acetaminophen (Tylenol 325mg Tab) 650 mg PO Q6 PRN PRN Reason: Fever >100.4 F Last Admin: 04/21/18 14:03 Dose: 650 mg Acetaminophen (Tylenol 325mg Tab) 650 mg PO Q6 PRN PRN Reason: Pain, Mild (1-3) Last Admin: 04/22/18 00:27 Dose: 650 mg Acetaminophen (Tylenol 650 Mg Supp) 650 mg AK ONCE PRN PRN Reason: Fever >100.4 F Last Admin: 04/19/18 15:35 Dose: 650 mg Alprazolam (Xanax) 0.5 mg PO Q6 PRN PRN Reason: Anxiety Aspirin (Ecotrin) 81 mg PO DAILY [facility] Last Admin: 04/22/18 08:56 Dose: 81 mg Atorvastatin Calcium (Lipitor) 40 mg PO DAILY [facility] Last Admin: 04/22/18 08:57 Dose: 40 mg Docusate Sodium (Colace) 100 mg PO TID PRN PRN Reason: Constipation Duloxetine HCl (Cymbalta) 60 mg PO HS [facility] Last Admin: 04/22/18 22:00 Dose: Not Given Glycerin (Glycerin Adult Suppository) 1 sup AK ONCE PRN PRN Reason: constipation Lactated Ringer's (Lactated Ringer's) 1,000 mls @ 100 mls/hr IV .Q10H [facility] Last Admin: 04/23/18 05:38 Dose: 100 mls/hr Meropenem 1 gm/ Sodium (Chloride) 100 mls @ 100 mls/hr IVPB Q8 [facility]; Protocol Last Admin: 04/23/18 09:07 Dose: 100 mls/hr Magnesium Oxide (Mag-Ox) 400 mg PO BID [facility] Last Admin: 04/22/18 16:09 Dose: 400 mg Metoprolol Succinate (Toprol Xl) 25 mg PO DAILY [facility] Last Admin: 04/22/18 16:09 Dose: 25 mg Metoprolol Tartrate (Lopressor) 5 mg IVP Q6 [facility] Last Admin: 04/23/18 11:08 Dose: 5 mg Multivitamins/Minerals (Therapeutic-M Tab) 1 tab PO DAILY [facility] Last Admin: 04/22/18 09:23 Dose: 1 tab Ondansetron HCl (Zofran Inj) 4 mg IVP Q6 PRN PRN Reason: Nausea/Vomiting Last Admin: 04/23/18 14:00 Dose: 4 mg Pantoprazole Sodium (Protonix Ec Tab) 40 mg PO DAILY [facility] Last Admin: 04/22/18 09:23 Dose: 40 mg Potassium Phos/Sodium Phos (Neutra-Phos) 1 pkt PO QID [facility] Last Admin: 04/22/18 21:42 Dose: Not Given Trazodone HCl (Desyrel) 50 mg PO HS [facility] - Labs Labs: 04/23/18 05:00 04/23/18 05:00 PT 17.1 Seconds (9.8-13.1) H 04/19/18 17:25 INR 1.5 04/19/18 17:25 APTT 65.4 Seconds (25.6-37.1) H 04/23/18 05:00 Attending/Attestation - Attestation I have personally seen and examined this patient.: Yes I have fully participated in the care of the patient.: Yes I have reviewed all pertinent clinical information, including history, physical exam and plan: Yes Notes (Text): Septic Shock due to E Coli Bacteremia due to Acute Pyelonephritis Acute Hypoxemic Respiratory Failure Afib with RVR YASEMIN Troponin Elevation likely demand ischemia Depression -Pt was extubated yesterday evening 04/22 - off pressors - cont IV Meropenem as rec by Dr Castano - Evaluated by Dr Kathleen - rec to start Esmolol drip w/c was d/c yesterday and pt was started on IV Metoprolol - Increase PO Toprol to 50 mg daily -cont Heparin drip - Blood c/s :and Urine c/s : E coli - WBC count down to 15 today , better - pt with soft stool- C diiff negative - will restart Psych meds- Duloxetine, Xanax, Trazodone - d/c femoral line
--- NOTE | 2018-04-23 10:00 | CP.CCUPN ---
CCU Subjective - Physician Review Subjective (Free Text): Extubated yesterday afternoon, still remains in rapid A fib, conversant, no distress, does not feel hungry, denies any chest discomfort nor palpitations, no SOB at bed rest, breathing 26, switched to 4 LPM NC, SPo2 97%. BP 140/80, HR 126, at time will increase to 147, Temps 99-100, no new fever spikes, fluid balance = positive 2.1L. Other vitals and I/O's reviewed. ROS: No other pertinent negs or positives on 10+ system review. PMSFH: All other Nursing and physician documentation reviewed to date; no new pertinent info noted relevant to current medical problems. EXAM- HEENT: no icterus, no gaze preference, pupils with normal reactivity noted, no nystagmus NECK: no JVD visible, supple, carotids equal upstroke bilat/no bruit CHEST: clear BS bilat, no wheezes audible HEART: irregular, distant, tachy S1S2, no rubs ABD: soft, no distension, no focal tenderness, no tympany, no guarding, no organomegaly, BS hypoactive. EXT: trace LE edema, no mottling; no calf tenderness or palpable cords, distal pulses intact and symmetrical, no cyanosis, R femoral vein TLC intact. NEURO: no gross focal motor deficits SKIN: no rashes, warm and dry LABS: WBC= 15.8 HGB= 10.1 PLTs= 173K PTT = 65.4 Na= 144 K= 4.0 CL= 112 HCO3= 24 BUN/Cr= 22/0.9 BS= 107 CXR: (my interp)- mild congestive changes, no gross consolidation. IMPRESSION / MAJOR PROBLEMS NOW: 1. E. coli Bacteremia 2. Sepsis / Metabolic Encephalopathy 3. Small NSTEMI 4. Paroxysmal A-Fib with RVR 5. Azotemia / Dehydation 6. Chronic Disease Anemia PLAN: 1. Ongoing abx coverage, E. coli sensitive to Kasey, off Vanco. 2. Stop LR; more IV Lasix prn. 3. Cardio resuming Metoprolol- both IV and PO, on Heparin drip. 4. Hold Cymbalta due to excessive sedative effects, as well as other anti- psychotics / [employer] meds reviewed on outpt meds: Desyrel, Oxybutynin. 5. No hydronephrosis on CT AP or Renal US; +nonobstructine stones bilaterally.
--- NOTE | 2018-04-23 18:40 | CP.PCM.PN ---
Subjective - Date & Time of Evaluation Date of Evaluation: 04/23/18 Time of Evaluation: 18:40 Objective - Vital Signs/Intake and Output Vital Signs (last 24 hours): Temp Pulse Resp BP Pulse Ox 100 F H 93 H 28 H 136/73 95 04/23/18 15:59 04/23/18 18:00 04/23/18 18:00 04/23/18 18:00 04/23/18 18:00 Intake and Output: 04/23/18 04/23/18 06:59 18:59 Intake Total 1350 400 Output Total 1150 3000 Balance 200 -2600 - Medications Medications: Current Medications Acetaminophen (Tylenol 325mg Tab) 650 mg PO Q6 PRN PRN Reason: Fever >100.4 F Last Admin: 04/21/18 14:03 Dose: 650 mg Acetaminophen (Tylenol 325mg Tab) 650 mg PO Q6 PRN PRN Reason: Pain, Mild (1-3) Last Admin: 04/22/18 00:27 Dose: 650 mg Acetaminophen (Tylenol 650 Mg Supp) 650 mg [place] ONCE PRN PRN Reason: Fever >100.4 F Last Admin: 04/19/18 15:35 Dose: 650 mg Alprazolam (Xanax) 0.5 mg PO Q6 PRN PRN Reason: Anxiety Aspirin (Ecotrin) 81 mg PO DAILY [facility] Last Admin: 04/23/18 17:03 Dose: 81 mg Atorvastatin Calcium (Lipitor) 40 mg PO DAILY [facility] Last Admin: 04/23/18 17:03 Dose: 40 mg Docusate Sodium (Colace) 100 mg PO TID PRN PRN Reason: Constipation Duloxetine HCl (Cymbalta) 60 mg PO HS [facility] Last Admin: 04/22/18 22:00 Dose: Not Given Glycerin (Glycerin Adult Suppository) 1 sup OR ONCE PRN PRN Reason: constipation Lactated Ringer's (Lactated Ringer's) 1,000 mls @ 100 mls/hr IV .Q10H [facility] Last Admin: 04/23/18 05:38 Dose: 100 mls/hr Meropenem 1 gm/ Sodium (Chloride) 100 mls @ 100 mls/hr IVPB Q8 [facility]; Protocol Last Admin: 04/23/18 17:09 Dose: 100 mls/hr Magnesium Oxide (Mag-Ox) 400 mg PO BID [facility] Last Admin: 04/23/18 17:04 Dose: 400 mg Metoprolol Succinate (Toprol Xl) 50 mg PO Q12 [facility] Multivitamins/Minerals (Therapeutic-M Tab) 1 tab PO DAILY [facility] Last Admin: 04/23/18 09:00 Dose: Not Given Ondansetron HCl (Zofran Inj) 4 mg IVP Q6 PRN PRN Reason: Nausea/Vomiting Last Admin: 04/23/18 14:00 Dose: 4 mg Pantoprazole Sodium (Protonix Ec Tab) 40 mg PO DAILY [facility] Last Admin: 04/23/18 09:00 Dose: Not Given Potassium Phos/Sodium Phos (Neutra-Phos) 1 pkt PO QID [facility] Last Admin: 04/23/18 17:09 Dose: 1 pkt Trazodone HCl (Desyrel) 50 mg PO HS [facility] - Labs Labs: 04/23/18 05:00 04/23/18 05:00 PT 17.1 Seconds (9.8-13.1) H 04/19/18 17:25 INR 1.5 04/19/18 17:25 APTT 65.4 Seconds (25.6-37.1) H 04/23/18 05:00 Assessment and Plan (1) Rapid atrial fibrillation Status: Acute (2) Respiratory failure requiring intubation Status: Acute (3) Severe sepsis Status: Acute (4) Troponin level elevated Status: Acute (5) ARF (acute renal failure) Status: Acute (6) Bilateral lower extremity edema Status: Acute (7) Pyelonephritis, acute Status: Acute (8) Severe dehydration Status: Acute (9) Aortic insufficiency Status: Chronic
[2018-04-23] MEDS: Metoprolol Succinate 50 mg XL Tab PO SCH (21:23)
[2018-04-23] MEDS ORDERED: Lactated Ringer's 1,000 ML IV SCH (22:00)
[2018-04-24] MEDS: Heparin 25,000units in D5W 25,000 UNITS/250 ML BAG IV SCH ×3 (00:50→17:02)
[2018-04-24] MEDS ORDERED: Lactated Ringer's 1,000 ML IV SCH (07:45)
[2018-04-24] MEDS ORDERED: Metoprolol Succinate 50 mg XL Tab PO SCH (09:00)
[2018-04-24] MEDS: Multivitamin With Minerals Tab PO SCH (09:08)
[2018-04-24] MEDS: Pantoprazole 40 mg EC Tab PO SCH (09:08)
[2018-04-24] MEDS: Potassium & Sodium Phosphate PO SCH ×5 (09:08→21:24)
[2018-04-24] MEDS: Magnesium Oxide 400 mg Tab UD PO SCH ×2 (09:09→17:04)
[2018-04-24] MEDS: Metoprolol Succinate 50 mg XL Tab PO SCH ×2 (09:10→21:09)
[2018-04-24] MEDS: Meropenem 1 GM in Sodium Chloride 0.9% 100 ML IVPB SCH ×2 (09:27→16:54)
--- NOTE | 2018-04-24 09:32 | CP.PCM.PN ---
Subjective - Date & Time of Evaluation Date of Evaluation: 04/24/18 Time of Evaluation: 09:32 - Subjective Subjective: pt seen and evaluated at bedside. No acute events overnight. Remains tachycardic. Awake and alert and speaking in complete sentences. Low grade fevers remain. White count trending down. BP stable. No other complaints/concerns. Objective - Vital Signs/Intake and Output Vital Signs (last 24 hours): Temp Pulse Resp BP Pulse Ox 99.5 F 130 H 24 141/69 97 04/24/18 08:00 04/24/18 09:12 04/24/18 08:00 04/24/18 09:12 04/24/18 08:00 Intake and Output: 04/24/18 04/24/18 06:59 18:59 Intake Total 1100 30 Balance 1100 30 - Medications Medications: Current Medications Acetaminophen (Tylenol 325mg Tab) 650 mg PO Q6 PRN PRN Reason: Fever >100.4 F Last Admin: 04/21/18 14:03 Dose: 650 mg Acetaminophen (Tylenol 325mg Tab) 650 mg PO Q6 PRN PRN Reason: Pain, Mild (1-3) Last Admin: 04/22/18 00:27 Dose: 650 mg Acetaminophen (Tylenol 650 Mg Supp) 650 mg SC ONCE PRN PRN Reason: Fever >100.4 F Last Admin: 04/19/18 15:35 Dose: 650 mg Alprazolam (Xanax) 0.5 mg PO Q6 PRN PRN Reason: Anxiety Last Admin: 04/23/18 20:03 Dose: 0.5 mg Aspirin (Ecotrin) 81 mg PO DAILY COUNTS INCLUDE 234 BEDS AT THE [facility] Last Admin: 04/24/18 09:08 Dose: 81 mg Atorvastatin Calcium (Lipitor) 40 mg PO DAILY COUNTS INCLUDE 234 BEDS AT THE [facility] Last Admin: 04/24/18 09:09 Dose: 40 mg Diltiazem HCl (Cardizem) 30 mg PO TID PATTI Docusate Sodium (Colace) 100 mg PO TID PRN PRN Reason: Constipation Duloxetine HCl (Cymbalta) 60 mg PO HS COUNTS INCLUDE 234 BEDS AT THE [facility] Last Admin: 04/23/18 22:00 Dose: 60 mg Glycerin (Glycerin Adult Suppository) 1 sup SC ONCE PRN PRN Reason: constipation Meropenem 1 gm/ Sodium (Chloride) 100 mls @ 100 mls/hr IVPB Q8 COUNTS INCLUDE 234 BEDS AT THE [facility]; Protocol Last Admin: 04/24/18 09:27 Dose: 100 mls/hr Heparin Sodium/Dextrose (Heparin 25,000 Units/250ml In D5w) 25,000 units in 250 mls @ 15 mls/hr IV .[id number] COUNTS INCLUDE 234 BEDS AT THE [facility]; Protocol Last Admin: 04/24/18 00:50 Dose: 15 mls/hr Lactated Ringer's (Lactated Ringer's) 1,000 mls @ 60 mls/hr IV .[id number] COUNTS INCLUDE 234 BEDS AT THE [facility] Last Admin: 04/24/18 09:06 Dose: 60 mls/hr Magnesium Oxide (Mag-Ox) 400 mg PO BID COUNTS INCLUDE 234 BEDS AT THE [facility] Last Admin: 04/24/18 09:09 Dose: 400 mg Metoprolol Succinate (Toprol Xl) 50 mg PO Q12 COUNTS INCLUDE 234 BEDS AT THE [facility] Last Admin: 04/24/18 09:10 Dose: 50 mg Multivitamins/Minerals (Therapeutic-M Tab) 1 tab PO DAILY COUNTS INCLUDE 234 BEDS AT THE [facility] Last Admin: 04/24/18 09:08 Dose: 1 tab Ondansetron HCl (Zofran Inj) 4 mg IVP Q6 PRN PRN Reason: Nausea/Vomiting Last Admin: 04/23/18 14:00 Dose: 4 mg Pantoprazole Sodium (Protonix Ec Tab) 40 mg PO DAILY COUNTS INCLUDE 234 BEDS AT THE [facility] Last Admin: 04/24/18 09:08 Dose: 40 mg Potassium Phos/Sodium Phos (Neutra-Phos) 1 pkt PO QID COUNTS INCLUDE 234 BEDS AT THE [facility] Last Admin: 04/24/18 09:08 Dose: 1 pkt Trazodone HCl (Desyrel) 50 mg PO HS COUNTS INCLUDE 234 BEDS AT THE [facility] Last Admin: 04/23/18 21:22 Dose: 50 mg - Labs Labs: 04/23/18 05:00 04/23/18 05:00 PT 17.1 Seconds (9.8-13.1) H 04/19/18 17:25 INR 1.5 04/19/18 17:25 APTT 65.4 Seconds (25.6-37.1) H 04/23/18 05:00 - Constitutional Appears: Non-toxic, No Acute Distress - Head Exam Head Exam: ATRAUMATIC, NORMOCEPHALIC - Eye Exam Eye Exam: EOMI Pupil Exam: PERRL - ENT Exam ENT Exam: Mucous Membranes Moist - Respiratory Exam Respiratory Exam: Clear to Ausculation Bilateral, NORMAL BREATHING PATTERN. absent: Decreased Breath Sounds, Rales, Rhonchi, Wheezes - Cardiovascular Exam Cardiovascular Exam: Tachycardia, Irregular Rhythm, +S1, +S2. absent: Gallop, REGULAR RHYTHM, JVD, Rubs, Murmur - GI/Abdominal Exam GI & Abdominal Exam: Soft, Normal Bowel Sounds. absent: Distended, Firm, Guarding, Rigid, Tenderness - Extremities Exam Extremities Exam: Normal Capillary Refill, Pedal Edema. absent: Calf Tenderness - Neurological Exam Neurological Exam: Alert, Awake, CN II-XII Intact - Psychiatric Exam Psychiatric exam: Normal Affect, Normal Mood - Skin Skin Exam: Dry, Normal Color, Warm Assessment and Plan - Assessment and Plan (Free Text) Assessment: 77 y/o female patient with PMH frequent UTI, urinary incontinence , HTN,depression with anxiety, chronic constipation ,renal stones, CKD stage III admitted for sepsis secondary to UTI. She was started on Rocephin 2 g IV initially , cultures were sent and urology consulted [employer] was called for hypotension on 04/19, Patient transferred to ICU for sepsis with shock , started on IVF and Levophed, WBC trended up to 33 k with lactate 3.4. ID consulted and antibiotics changed to Meropenem IV, Intubated in ICU on 04/20 for impending respiratory failure. Pt was extubated on 04/22 and tolerated well. Pt remains with low grade fevers and improving leukocytosis. Renal injury has resolved and repeat blood cultures are now negative, however Pt remains in Afib with RVR. Plan: E.Coli Septicemia with septic shock -improving -leukocytosis trending down -blood/urine cx: E.coli -Meropenem 1g Q8H -WBC improving -monitor CBC/CMP -BP improving and stable -TTE as per ID for evaluation 03/20 to gram negative septicemia Acute Respiratory Failure: -resolved -extubated 04/22 Pyelonephritis -f/u cultures: E.coli -Continue Meropenem 1gm Q8H -renal u/s: nonobstructive renal stones -f/u ID recommendations -urology on board, recommends waiting for medical stabilization prior to intervention Atrial Fibrillation w RVR: -added addition cardizem 10mg IV -c/w cardiac monitoring -started Cardizem 30mg PO TID -resumed Metroprolol IV and PO -on Heparin drip -monitor coags -cardiology on board Acute Renal Injury -resolved Troponemia -Echo showed LVF with EF 55 % -trending down -as per cardio likely 2/2 to combination of septic shock and YASEMIN Foreign Bodies: -right femoral triple lumen Prophylaxis -HOB elevation -Protonix -heparin drip
[2018-04-24 10:19] LABS: BASO % 0.2 % (0.0-2.0); EOS # 0.2 K/uL (0.0-0.7); EOS % 1.7 % (0.0-4.0); LYMPH # 1.7 K/uL (1.0-4.3); LYMPH % 13.5 % (20.0-40.0); MEAN CORPUSCULAR HEMOGLOBIN 29.3 pg (27.0-31.0); MEAN CORPUSCULAR HGB CONC 32.6 g/dL (33.0-37.0); MEAN PLATELET VOLUME 9.3 fl (7.2-11.7); MONO # 1.8 K/uL (0.0-0.8); MONO % 14.6 % (0.0-10.0); NEUT # 8.9 K/uL (1.8-7.0); RBC 3.75 Mil/uL (3.80-5.20); RED CELL DISTRIBUTION WIDTH 14.1 % (11.5-14.5); WHITE BLOOD COUNT 12.7 K/uL (4.8-10.8)
[2018-04-24 10:30] LABS: BLOOD UREA NITROGEN 16 mg/dl (7-17); CALCIUM 8.2 mg/dL (8.4-10.2); GFR NON-AFRICAN AMERICAN > 60
[2018-04-24] MEDS ORDERED: Magnesium Sulfate 2 gm/50 ml 2 GM/50 ML BAG IVPB ONE (11:00)
--- NOTE | 2018-04-24 11:16 | CP.PCM.PN ---
Subjective - Date & Time of Evaluation Date of Evaluation: 04/24/18 Time of Evaluation: 11:16 - Subjective Subjective: ID note- Pt. seen and examined in ICU today. clinically much improved. denies any abd. pain, denies any fever or chills. Objective - Vital Signs/Intake and Output Vital Signs (last 24 hours): Temp Pulse Resp BP Pulse Ox 99.5 F 115 H 24 137/32 L 97 04/24/18 08:00 04/24/18 10:00 04/24/18 10:00 04/24/18 10:00 04/24/18 10:00 Intake and Output: 04/24/18 04/24/18 06:59 18:59 Intake Total 1100 130 Balance 1100 130 - Medications Medications: Current Medications Acetaminophen (Tylenol 325mg Tab) 650 mg PO Q6 PRN PRN Reason: Fever >100.4 F Last Admin: 04/21/18 14:03 Dose: 650 mg Acetaminophen (Tylenol 325mg Tab) 650 mg PO Q6 PRN PRN Reason: Pain, Mild (1-3) Last Admin: 04/22/18 00:27 Dose: 650 mg Acetaminophen (Tylenol 650 Mg Supp) 650 mg MN ONCE PRN PRN Reason: Fever >100.4 F Last Admin: 04/19/18 15:35 Dose: 650 mg Alprazolam (Xanax) 0.5 mg PO Q6 PRN PRN Reason: Anxiety Last Admin: 04/23/18 20:03 Dose: 0.5 mg Aspirin (Ecotrin) 81 mg PO DAILY [facility] Last Admin: 04/24/18 09:08 Dose: 81 mg Atorvastatin Calcium (Lipitor) 40 mg PO DAILY [facility] Last Admin: 04/24/18 09:09 Dose: 40 mg Diltiazem HCl (Cardizem) 30 mg PO TID [facility] Docusate Sodium (Colace) 100 mg PO TID PRN PRN Reason: Constipation Duloxetine HCl (Cymbalta) 60 mg PO HS [facility] Last Admin: 04/23/18 22:00 Dose: 60 mg Glycerin (Glycerin Adult Suppository) 1 sup MN ONCE PRN PRN Reason: constipation Meropenem 1 gm/ Sodium (Chloride) 100 mls @ 100 mls/hr IVPB Q8 [facility]; Protocol Last Admin: 04/24/18 09:27 Dose: 100 mls/hr Heparin Sodium/Dextrose (Heparin 25,000 Units/250ml In D5w) 25,000 units in 250 mls @ 15 mls/hr IV .[id number] [facility]; Protocol Last Admin: 04/24/18 00:50 Dose: 15 mls/hr Lactated Ringer's (Lactated Ringer's) 1,000 mls @ 60 mls/hr IV .[id number] [facility] Last Admin: 04/24/18 09:06 Dose: 60 mls/hr Magnesium Sulfate (Magnesium Sulfate 2 Gm/50 Ml Water) 2 gm in 50 mls @ 50 mls/hr IVPB ONCE ONE Stop: 04/24/18 11:59 Magnesium Oxide (Mag-Ox) 400 mg PO BID [facility] Last Admin: 04/24/18 09:09 Dose: 400 mg Metoprolol Succinate (Toprol Xl) 50 mg PO Q12 [facility] Last Admin: 04/24/18 09:10 Dose: 50 mg Multivitamins/Minerals (Therapeutic-M Tab) 1 tab PO DAILY [facility] Last Admin: 04/24/18 09:08 Dose: 1 tab Ondansetron HCl (Zofran Inj) 4 mg IVP Q6 PRN PRN Reason: Nausea/Vomiting Last Admin: 04/23/18 14:00 Dose: 4 mg Pantoprazole Sodium (Protonix Ec Tab) 40 mg PO DAILY [facility] Last Admin: 04/24/18 09:08 Dose: 40 mg Potassium Phos/Sodium Phos (Neutra-Phos) 1 pkt PO QID [facility] Last Admin: 04/24/18 09:08 Dose: 1 pkt Trazodone HCl (Desyrel) 50 mg PO HS [facility] Last Admin: 04/23/18 21:22 Dose: 50 mg - Labs Labs: - Additional Findings Additional findings: - Constitutional Appears: Chronically Ill Additional comments: awake and alert - Head Exam Head Exam: ATRAUMATIC - Eye Exam Eye Exam: EOMI - Respiratory Exam Additional comments: no wheezing good aeration b/l - Cardiovascular Exam Cardiovascular Exam: RRR, +S1, +S2 - GI/Abdominal Exam GI & Abdominal Exam: Normal Bowel Sounds, Soft Additional comments: NT, ND - Extremities Exam Extremities exam: Positive for: normal inspection - Neurological Exam Neurological exam: Alert Additional comments: AAO x 3 Laboratory Results - last 72 hr 04/21/18 04/21/18 04/22/18 18:00 18:00 01:59 WBC 32.1 H RBC 3.55 L Hgb 10.4 L Hct 32.3 L MCV 90.9 MCH 29.4 MCHC 32.3 L RDW 14.4 Plt Count 166 MPV Neut % (Auto) Lymph % (Auto) Sullivan % (Auto) Eos % (Auto) Baso % (Auto) Neut # (Auto) Lymph # (Auto) Sullivan # (Auto) Eos # (Auto) Baso # (Auto) APTT 32.9 104.5 H pCO2 pO2 HCO3 ABG pH ABG Total CO2 ABG O2 Saturation ABG Base Excess Mahesh Test ABG Potassium A-a O2 Difference Sodium Chloride Glucose Lactate Vent Mode Mechanical Rate FiO2 Tidal Volume PEEP Potassium Carbon Dioxide Anion Gap BUN Creatinine Est GFR ( Amer) Est GFR (Non-Af Amer) Random Glucose Lactic Acid Calcium Magnesium Total Bilirubin AST ALT Alkaline Phosphatase Troponin I Total Protein Albumin Globulin Albumin/Globulin Ratio Arterial Blood Potassium C. difficile Ag & Toxin 04/22/18 04/22/18 04/22/18 03:58 04:45 04:45 WBC 26.3 H RBC 3.27 L Hgb 9.6 L Hct 29.5 L MCV 90.3 MCH 29.5 MCHC 32.7 L RDW 14.6 H Plt Count 160 MPV Neut % (Auto) Lymph % (Auto) Sullivan % (Auto) Eos % (Auto) Baso % (Auto) Neut # (Auto) Lymph # (Auto) Sullivan # (Auto) Eos # (Auto) Baso # (Auto) APTT pCO2 34 L pO2 139 H HCO3 23.7 ABG pH 7.42 ABG Total CO2 23.1 ABG O2 Saturation 97.5 ABG Base Excess -1.7 Mahesh Test Yes ABG Potassium 4.1 A-a O2 Difference 104.0 Sodium 142.0 144 Chloride 116.0 H 109 H Glucose 121 H Lactate 1.0 Vent Mode A/c Mechanical Rate 16 FiO2 40.0 Tidal Volume 450 PEEP 5 Potassium 4.1 Carbon Dioxide 23 Anion Gap 16 BUN 32 H Creatinine 1.1 Est GFR ( Amer) 58 Est GFR (Non-Af Amer) 48 Random Glucose 116 H Lactic Acid Calcium 7.7 L Magnesium 2.2 Total Bilirubin 0.4 AST 25 ALT 33 Alkaline Phosphatase 121 Troponin I 0.1120 Total Protein 5.9 L Albumin 2.5 L Globulin 3.4 Albumin/Globulin Ratio 0.7 L Arterial Blood Potassium 4.1 C. difficile Ag & Toxin 04/22/18 04/22/18 04/22/18 04:45 08:30 14:00 WBC RBC Hgb Hct MCV MCH MCHC RDW Plt Count MPV Neut % (Auto) Lymph % (Auto) Sullivan % (Auto) Eos % (Auto) Baso % (Auto) Neut # (Auto) Lymph # (Auto) Sullivan # (Auto) Eos # (Auto) Baso # (Auto) APTT 62.8 H pCO2 pO2 HCO3 ABG pH ABG Total CO2 ABG O2 Saturation ABG Base Excess Mahesh Test ABG Potassium A-a O2 Difference Sodium Chloride Glucose Lactate Vent Mode Mechanical Rate FiO2 Tidal Volume PEEP Potassium Carbon Dioxide Anion Gap BUN Creatinine Est GFR ( Amer) Est GFR (Non-Af Amer) Random Glucose Lactic Acid 1.2 Calcium Magnesium Total Bilirubin AST ALT Alkaline Phosphatase Troponin I Total Protein Albumin Globulin Albumin/Globulin Ratio Arterial Blood Potassium C. difficile Ag & Toxin Negative 04/22/18 04/23/18 04/23/18 15:42 05:00 05:00 WBC 15.8 H RBC 3.42 L Hgb 10.1 L Hct 30.8 L MCV 90.3 MCH 29.6 MCHC 32.8 L RDW 14.5 Plt Count 173 MPV Neut % (Auto) Lymph % (Auto) Sullivan % (Auto) Eos % (Auto) Baso % (Auto) Neut # (Auto) Lymph # (Auto) Sullivan # (Auto) Eos # (Auto) Baso # (Auto) APTT 59.9 H pCO2 pO2 HCO3 ABG pH ABG Total CO2 ABG O2 Saturation ABG Base Excess Mahesh Test ABG Potassium A-a O2 Difference Sodium 144 Chloride 112 H Glucose Lactate Vent Mode Mechanical Rate FiO2 Tidal Volume PEEP Potassium 4.0 Carbon Dioxide 24 Anion Gap 12 BUN 22 H Creatinine 0.9 Est GFR ( Amer) > 60 Est GFR (Non-Af Amer) > 60 Random Glucose 107 H Lactic Acid Calcium 8.1 L Magnesium Total Bilirubin 0.7 AST 26 ALT 24 Alkaline Phosphatase 119 Troponin I Total Protein 6.5 Albumin 2.9 L Globulin 3.6 Albumin/Globulin Ratio 0.8 L Arterial Blood Potassium C. difficile Ag & Toxin 04/23/18 04/24/18 04/24/18 05:00 09:50 09:50 WBC 12.7 H RBC 3.75 L Hgb 11.0 L Hct 33.7 L MCV 90.0 MCH 29.3 MCHC 32.6 L RDW 14.1 Plt Count 229 MPV 9.3 Neut % (Auto) 70.0 Lymph % (Auto) 13.5 L Sullivan % (Auto) 14.6 H Eos % (Auto) 1.7 Baso % (Auto) 0.2 Neut # (Auto) 8.9 H Lymph # (Auto) 1.7 Sullivan # (Auto) 1.8 H Eos # (Auto) 0.2 Baso # (Auto) 0.0 APTT 65.4 H pCO2 pO2 HCO3 ABG pH ABG Total CO2 ABG O2 Saturation ABG Base Excess Mahesh Test ABG Potassium A-a O2 Difference Sodium 140 Chloride 100 Glucose Lactate Vent Mode Mechanical Rate FiO2 Tidal Volume PEEP Potassium 3.3 L Carbon Dioxide 30 Anion Gap 13 BUN 16 Creatinine 0.9 Est GFR ( Amer) > 60 Est GFR (Non-Af Amer) > 60 Random Glucose 146 H Lactic Acid Calcium 8.2 L Magnesium 1.4 L Total Bilirubin AST ALT Alkaline Phosphatase Troponin I Total Protein Albumin Globulin Albumin/Globulin Ratio Arterial Blood Potassium C. difficile Ag & Toxin 04/24/18 09:50 WBC RBC Hgb Hct MCV MCH MCHC RDW Plt Count MPV Neut % (Auto) Lymph % (Auto) Sullivan % (Auto) Eos % (Auto) Baso % (Auto) Neut # (Auto) Lymph # (Auto) Sullivan # (Auto) Eos # (Auto) Baso # (Auto) APTT 72.3 H pCO2 pO2 HCO3 ABG pH ABG Total CO2 ABG O2 Saturation ABG Base Excess Mahesh Test ABG Potassium A-a O2 Difference Sodium Chloride Glucose Lactate Vent Mode Mechanical Rate FiO2 Tidal Volume PEEP Potassium Carbon Dioxide Anion Gap BUN Creatinine Est GFR ( Amer) Est GFR (Non-Af Amer) Random Glucose Lactic Acid Calcium Magnesium Total Bilirubin AST ALT Alkaline Phosphatase Troponin I Total Protein Albumin Globulin Albumin/Globulin Ratio Arterial Blood Potassium C. difficile Ag & Toxin Microbiology 04/20/18 18:50 Blood-Venous Blood Culture - Preliminary NO GROWTH AFTER 3 DAYS 04/20/18 18:30 Blood-Venous Blood Culture - Preliminary NO GROWTH AFTER 3 DAYS 04/18/18 23:04 Blood-Venous Blood Culture - Final Escherichia Coli 04/18/18 23:04 Blood-Venous Gram Stain - Final 04/18/18 22:04 Urine,Clean Catch Urine Culture - Final Escherichia Coli 04/19/18 08:10 Naris MRSA Culture (Admit) - Final MRSA DETECTED Assessment and Plan (1) ARF (acute renal failure) Status: Acute (2) Septic shock Status: Acute (3) Pyelonephritis, acute Status: Acute (4) Sepsis Status: Acute - Assessment and Plan (Free Text) Assessment: Assessment and plan Patient is a 77-year-old female with multiple medical conditions who was admitted with fever dysuria lower back pain and was found to have pyelonephritis hypotensive septic. clinically much improved. afebrile today. leukocytosis trending down and almost resolved. Blood culture - e.coli pansensitive x 1 Urine culture preliminary gram- e.coli pansensitive Urinalysispositive leukocyte esterase TTE as per report- no endocarditis as per report. repeat blood cx- neg x 2 stool c.diff tox - negative 1. Urosepsis- resolving 2. Acute on chronic renal insufficiency- improving Plan Advised to continue with IV meropenem for e.coli bacteremia and urosepsis. (dose based on renal function).day #5 needs total of 14-21 days of IV abx for the bacteremia. All labs and imaging and pertinent chart notes were reviewed in detail. Critical care time spent 40 minutes.
[2018-04-24] MEDS: Potassium Chloride 20 mEq/15 ml LIQ UD PO ONE ×2 (11:30→11:37)
[2018-04-24] MEDS: Potassium Chloride 20 mEq 100 ML IVPB SCH ×2 (13:18→15:22)
[2018-04-24] MEDS ORDERED: Digoxin 500 mcg/2ml (0.5 mg/2ml) Inj IVP ONE (15:59)
[2018-04-24 16:52] VITALS: PULSE 124
--- NOTE | 2018-04-24 23:32 | PN ---
DATE: 04/24/2018 CRITICAL CARE PROGRESS NOTE LOCATION: The patient in ICU bed 424. Time spent 35 minutes. The patient is seen and evaluated at the bedside. Past medical, surgical, family, social history reviewed. SUBJECTIVE: A 77-year-old female, admitted with obstructed ureteral stone, E. coli bacteremia. Past medical history significant for hypertension, morbid obesity, anxiety, depression, multiple UTIs in the past, nephrolithiasis, fibromyalgia, chronic pancreatitis, prediabetes, DVT of both lower extremities, status post IVC filter, noted to be hypotensive, in atrial fibrillation with rapid ventricular response. Intubated, placed on mechanical ventilation. Now extubated, remains on oxygen 2 L nasal cannula saturating over 94%. Blood pressure improved. Still remains mild tachycardic. PHYSICAL EXAMINATION: VITAL SIGNS: Temperature 99.9, heart rate 115 to 125, blood pressure 137/82, respiratory rate 22. Intake 1500, output 3000, negative balance 1500. HEAD, EYES, EARS, NOSE AND THROAT: Pupils reactive. Conjunctivae pink. Sclerae white. NECK: Supple. Trachea central. CHEST: Bilateral breath sounds. Diminished in intensity. Clear to auscultation anteriorly and laterally. HEART: Rhythm irregular. ABDOMEN: Bowel sounds are present and soft. Liver and spleen not palpable. Bladder not distended. EXTREMITIES: With dependent edema. NEUROLOGIC: Nonfocal. CURRENT MEDICATIONS: Tylenol 650 mg every 6 hours p.r.n., Xanax 0.5 mg every 6 hours p.r.n., Ecotrin 81 mg daily, Lipitor 40 mg p.o. daily, Cardizem 30 mg p.o. three times daily, Colace 100 mg p.o. three times p.r.n., Cymbalta 60 mg p.o. at bedtime, glycerin suppository p.r.n. for constipation on hold due to diarrhea, Ringer's lactate at 60 mL per hour, magnesium oxide 400 mg p.o. twice daily, metoprolol 50 mg p.o. every 12 hours, multivitamin tablet daily, Zofran 4 mg IV every 6 hours p.r.n., Protonix EC 40 mg p.o. daily, potassium chloride 20 mEq in 100 mL x2 doses, and trazodone 50 mg p.o. at bedtime. LABORATORY DATA: WBC 12.7, hemoglobin 11, hematocrit 33.7, platelet count 229, neutrophils 70, lymphocytes 13.5, monocytes 14.6. PTT 72.3. Blood gas, pH of 7.42, pCO2 of 34, pO2 of 139 on AC 16, 40% 450 with a PEEP of 5, now on oxygen supplement 2 L. SMA-7: Sodium 140, potassium 3.2, chloride 100, CO2 of 30, blood urea nitrogen 16, creatinine 0.9, magnesium 1.4, calcium 8.2. Urinalysis: Rbc's 56, wbc's 60. Vancomycin trough level 13.2. Serology: C. difficile antigen negative. Influenza A and B negative. Microbiology: Blood culture positive for E-coli. Urine culture positive for E-coli. Chest x-ray done on 04/23/2018, trace pleural effusion, no consolidation or pulmonary vascular congestion. IMPRESSION AND PLAN: 1. Neurologic: Alert, awake, follows commands appropriate. Resolving septic metabolic encephalopathy. History of anxiety disease and depression. 2. Pulmonary: Status post hypoxic respiratory failure, extubated, currently on oxygen 2 L nasal cannula saturating over 94%. 3. Cardiac: Hypotension, resolved with intravenous hydration. Telemetry, still with rapid atrial fibrillation. Dose of metoprolol increased. Off anticoagulation. 4. Renal: Improved. Blood urea nitrogen and creatinine are stable. Hypokalemia, being supplemented. Hypomagnesemia, on magnesium supplement. 5. Gastroenterology: Normal liver enzymes. Tolerating oral feeds. 6. Endocrinology: No history of hypothyroidism. Blood sugar within acceptable range. No history of diabetes. 7. Hematology: Leukocytosis, trending down. Hemoglobin and hematocrit are stable. Normal platelet count. Keep head of bed 30 degrees up. History of deep venous thrombosis, status post inferior vena cava filter. 8. Psychiatric: History of anxiety disorder, depression. Resume her usual maintenance medications including trazodone, Cymbalta and Xanax. Adarsh Ha MD
[2018-04-25] MEDS: Meropenem 1 GM in Sodium Chloride 0.9% 100 ML IVPB SCH ×3 (00:14→16:54)
[2018-04-25 06:03] LABS: HEMOGLOBIN 9.9 g/dL (12.0-16.0); MEAN CELL VOLUME 91.9 fl (81.0-99.0); MEAN CORPUSCULAR HEMOGLOBIN 29.9 pg (27.0-31.0); MEAN CORPUSCULAR HGB CONC 32.5 g/dL (33.0-37.0); RBC 3.32 Mil/uL (3.80-5.20); WHITE BLOOD COUNT 10.9 K/uL (4.8-10.8)
[2018-04-25 06:19] LABS: ALB/GLOB RATIO 0.8 (1.0-2.1); ALBUMIN 2.8 g/dL (3.5-5.0); ALT/SGPT 28 U/L (9-52); AST/SGOT 20 U/L (14-36); BLOOD UREA NITROGEN 14 mg/dl (7-17); CALCIUM 7.8 mg/dL (8.4-10.2); GFR NON-AFRICAN AMERICAN > 60
--- NOTE | 2018-04-25 07:56 | CP.PCM.PN ---
Subjective - Date & Time of Evaluation Date of Evaluation: 04/25/18 Time of Evaluation: 07:56 - Subjective Subjective: pt seen and evaluated at bedside this morning. No acute events overnight. Laying HOB elevated, comfortably, NAD. Reports feeling better but weak. Tolerating PO intake w/o issue. Afebrile today, with improving WBC count. BP stable. Following commands. HR back to to normal rate. No other complaints/concerns. Objective - Vital Signs/Intake and Output Vital Signs (last 24 hours): Temp Pulse Resp BP Pulse Ox 97.6 F 89 18 111/72 97 04/25/18 00:00 04/25/18 06:00 04/25/18 06:00 04/25/18 06:00 04/25/18 06:00 Intake and Output: 04/25/18 04/25/18 06:59 18:59 Intake Total Output Total Balance - Medications Medications: Current Medications Acetaminophen (Tylenol 325mg Tab) 650 mg PO Q6 PRN PRN Reason: Fever >100.4 F Last Admin: 04/21/18 14:03 Dose: 650 mg Acetaminophen (Tylenol 325mg Tab) 650 mg PO Q6 PRN PRN Reason: Pain, Mild (1-3) Last Admin: 04/24/18 11:28 Dose: 650 mg Acetaminophen (Tylenol 650 Mg Supp) 650 mg NE ONCE PRN PRN Reason: Fever >100.4 F Last Admin: 04/19/18 15:35 Dose: 650 mg Alprazolam (Xanax) 0.5 mg PO Q6 PRN PRN Reason: Anxiety Last Admin: 04/25/18 03:35 Dose: 0.5 mg Apixaban (Eliquis) 5 mg PO Q12 [facility]; Protocol Aspirin (Ecotrin) 81 mg PO DAILY [facility] Last Admin: 04/24/18 09:08 Dose: 81 mg Atorvastatin Calcium (Lipitor) 40 mg PO DAILY [facility] Last Admin: 04/24/18 09:09 Dose: 40 mg Diltiazem HCl (Cardizem) 30 mg PO TID [facility] Last Admin: 04/24/18 16:46 Dose: 30 mg Docusate Sodium (Colace) 100 mg PO TID PRN PRN Reason: Constipation Duloxetine HCl (Cymbalta) 60 mg PO [facility] Last Admin: 04/24/18 21:10 Dose: 60 mg Glycerin (Glycerin Adult Suppository) 1 sup NE ONCE PRN PRN Reason: constipation Meropenem 1 gm/ Sodium (Chloride) 100 mls @ 100 mls/hr IVPB Q8 [facility]; Protocol Last Admin: 04/25/18 00:14 Dose: 100 mls/hr Lactated Ringer's (Lactated Ringer's) 1,000 mls @ 60 mls/hr IV .[id number] [facility] Last Admin: 04/24/18 09:06 Dose: 60 mls/hr Magnesium Oxide (Mag-Ox) 400 mg PO BID [facility] Last Admin: 04/24/18 17:04 Dose: 400 mg Metoprolol Succinate (Toprol Xl) 50 mg PO Q12 [facility] Last Admin: 04/24/18 21:09 Dose: 50 mg Multivitamins/Minerals (Therapeutic-M Tab) 1 tab PO DAILY [facility] Last Admin: 04/24/18 09:08 Dose: 1 tab Ondansetron HCl (Zofran Inj) 4 mg IVP Q6 PRN PRN Reason: Nausea/Vomiting Last Admin: 04/23/18 14:00 Dose: 4 mg Pantoprazole Sodium (Protonix Ec Tab) 40 mg PO DAILY [facility] Last Admin: 04/24/18 09:08 Dose: 40 mg Potassium Phos/Sodium Phos (Neutra-Phos) 1 pkt PO QID [facility] Last Admin: 04/24/18 21:24 Dose: Not Given Trazodone HCl (Desyrel) 50 mg PO HS [facility] Last Admin: 04/24/18 21:09 Dose: 50 mg - Labs Labs: 04/25/18 04:30 04/25/18 04:30 PT 17.1 Seconds (9.8-13.1) H 04/19/18 17:25 INR 1.5 04/19/18 17:25 APTT 94.5 Seconds (25.6-37.1) H 04/25/18 04:30 - Constitutional Appears: Well, Non-toxic, No Acute Distress - Head Exam Head Exam: ATRAUMATIC, NORMOCEPHALIC - Eye Exam Eye Exam: EOMI. absent: Scleral icterus Pupil Exam: PERRL - ENT Exam ENT Exam: Mucous Membranes Moist - Neck Exam Neck Exam: Full ROM. absent: Lymphadenopathy - Respiratory Exam Respiratory Exam: Clear to Ausculation Bilateral, NORMAL BREATHING PATTERN. absent: Rales, Rhonchi, Wheezes - Cardiovascular Exam Cardiovascular Exam: REGULAR RHYTHM, +S1, +S2. absent: Bradycardia, Tachycardia, Murmur - GI/Abdominal Exam GI & Abdominal Exam: Soft, Normal Bowel Sounds. absent: Distended, Firm, Guarding, Rigid, Tenderness - Extremities Exam Extremities Exam: Pedal Edema (improving ). absent: Calf Tenderness, Tenderness - Neurological Exam Neurological Exam: Alert, Awake, CN II-XII Intact - Psychiatric Exam Psychiatric exam: Normal Affect, Normal Mood - Skin Skin Exam: Dry, Intact, Normal Color, Warm. absent: Pallor, Petechiae, Rash Assessment and Plan - Assessment and Plan (Free Text) Assessment: 77 y/o female patient with PMH frequent UTI, urinary incontinence , HTN, depression with anxiety, chronic constipation ,renal stones admitted for sepsis secondary to UTI. She was started on Rocephin 2 g IV initially , cultures were sent and urology consulted [employer] was called for hypotension on 04/19, Patient transferred to ICU for sepsis with shock , started on IVF and Levophed, WBC trended up to 33 k with lactate 3.4. ID consulted and antibiotics changed to Meropenem IV, Intubated in ICU on 04/20 for impending respiratory failure. Pt was extubated on 04/22 and tolerated well. Pt is now afebrile, with stable BP, improving WBCs, and regular HR. Plan: E.Coli Septicemia with septic shock -resolved -afebrile -leukocytosis trending down -blood/urine cx: E.coli -Meropenem 1g Q8H -WBC improving -monitor CBC/CMP -BP stable -downgrade to tele -PT therapy evaluation/treatment Acute Respiratory Failure: -resolved -extubated 04/22 Pyelonephritis -f/u cultures: E.coli -Continue Meropenem 1gm Q8 -renal u/s: nonobstructive renal stones -f/u ID recommendations -urology on board, recommends waiting for medical stabilization prior to intervention Atrial Fibrillation w RVR: -resolved -c/w cardiac monitoring -started Cardizem 30mg PO TID -resumed Metroprolol IV and PO -started Eliquis 5mg Q12H -cardiology consult, f/u recs Acute Renal Injury -resolved Troponemia -Echo showed LVF with EF 55 % -trending down -as per cardio likely 2/2 to combination of septic shock and YASEMIN Foreign Bodies: -right femoral triple lumen Prophylaxis -HOB elevation -Protonix -Eliquis 5mg Q12H
--- NOTE | 2018-04-25 08:20 | CP.CCUPN ---
CCU Subjective - Physician Review Events Since Last Encounter (Free Text): Patient awake, no distress, no fever, no vomiting, no pressors, follow simple commands CCU Objective - Vital Signs / Intake & Output Vital Signs (Last 4 hours): Vital Signs Pulse Resp BP Pulse Ox 04/25/18 06:00 89 18 111/72 97 Intake and Output (Last 8hrs): Intake & Output 04/24/18 04/25/18 04/25/18 21:59 06:59 14:59 Intake Total Output Total Balance Weight Intake: IV Intake, Piggyback Oral Output: Urine Urine, Voided Other: # Voids Urine, Voided # Bowel Movements - Physical Exam Head: Positive for: Atraumatic, Normocephalic Pupils: Positive for: PERRL Extroacular Muscles: Positive for: EOMI Conjunctiva: Positive for: Normal. Negative for: Injected, Icteric Nose (Internal): Positive for: Normal Inspection Neck: Positive for: Normal Range of Motion, Trachea Midline. Negative for: Meningeal Signs, MIDLINE TENDERNESS, Paraspinal Tenderness, JVD, Lymphaden opathy, Bruit, Other Respiratory/Chest: Positive for: Good Air Exchange, Rhonchi, Tachypneic. Negative for: Clear to Auscultation, Wheezes, Rales Cardiovascular: Positive for: Regular Rate and Rhythm, Normal S1, S2. Negative for: Murmurs Abdomen: Positive for: Distention, Normal Bowel Sounds. Negative for: Tenderness Lower Extremity: Positive for: Edema Psychiatric: Positive for: Alert - Medications Active Medications: Active Medications Generic Name Dose Route Start Last Admin Trade Name Freq PRN Reason Stop Dose Admin Acetaminophen 650 mg 04/19/18 00:29 04/21/18 14:03 Tylenol 325mg Tab PO 650 mg Q6 PRN Administration Fever >100.4 F Acetaminophen 650 mg 04/19/18 01:57 04/24/18 11:28 Tylenol 325mg Tab PO 650 mg Q6 PRN Administration Pain, Mild (1-3) Acetaminophen 650 mg 04/19/18 15:45 04/19/18 15:35 Tylenol 650 Mg Supp NC 650 mg ONCE PRN Administration Fever >100.4 F Alprazolam 0.5 mg 04/23/18 12:25 04/25/18 03:35 Xanax PO 0.5 mg Q6 PRN Administration Anxiety Apixaban 5 mg 04/25/18 09:00 Eliquis PO Q12 [facility] Protocol Aspirin 81 mg 04/22/18 09:00 04/24/18 09:08 Ecotrin PO 81 mg DAILY [facility] Administration Atorvastatin Calcium 40 mg 04/19/18 09:00 04/24/18 09:09 Lipitor PO 40 mg DAILY [facility] Administration Diltiazem HCl 30 mg 04/24/18 09:00 04/24/18 16:46 Cardizem PO 30 mg TID [facility] Administration Docusate Sodium 100 mg 04/19/18 01:17 Colace PO TID PRN Constipation Duloxetine HCl 60 mg 04/19/18 22:00 04/24/18 21:10 Cymbalta PO 60 mg HS [facility] Administration Glycerin 1 sup 04/19/18 00:39 Glycerin Adult Suppository NC ONCE PRN constipation Meropenem 1 gm/ Sodium 100 mls @ 100 mls/hr 04/21/18 17:00 04/25/18 00:14 Chloride IVPB 100 mls/hr Q8 [facility] Administration Protocol Lactated Ringer's 1,000 mls @ 60 mls/hr 04/24/18 07:45 04/24/18 09:06 Lactated Ringer's IV 60 mls/hr .[id number] [facility] Administration Magnesium Oxide 400 mg 04/19/18 09:00 04/24/18 17:04 Mag-Ox PO 400 mg BID [facility] Administration Metoprolol Succinate 50 mg 04/23/18 21:00 04/24/18 21:09 Toprol Xl PO 50 mg Q12 [facility] Administration Multivitamins/Minerals 1 tab 04/19/18 09:00 04/24/18 09:08 Therapeutic-M Tab PO 1 tab DAILY [facility] Administration Ondansetron HCl 4 mg 04/19/18 00:29 04/23/18 14:00 Zofran Inj IVP 4 mg Q6 PRN Administration Nausea/Vomiting Pantoprazole Sodium 40 mg 04/19/18 09:00 04/24/18 09:08 Protonix Ec Tab PO 40 mg DAILY [facility] Administration Potassium Phos/Sodium Phos 1 pkt 04/19/18 09:00 04/24/18 21:24 Neutra-Phos PO Not Given QID [facility] Trazodone HCl 50 mg 04/23/18 22:00 04/24/18 21:09 Desyrel PO 50 mg HS [facility] Administration - Patient Studies Lab Studies: Microbiology Studies 04/20/18 18:50 Blood Culture - Preliminary Blood-Venous NO GROWTH AFTER 4 DAYS 04/20/18 18:30 Blood Culture - Preliminary Blood-Venous NO GROWTH AFTER 4 DAYS 04/22/18 16:00 Urine Culture - Preliminary Urine,Reagan Gram Positive Cocci Lab Studies 04/25/18 04/25/18 04/25/18 Range/Units 04:30 04:30 04:30 WBC 10.9 H (4.8-10.8) K/uL RBC 3.32 L (3.80-5.20) Mil/uL Hgb 9.9 L (12.0-16.0) g/dL Hct 30.5 L (34.0-47.0) % MCV 91.9 (81.0-99.0) fl MCH 29.9 (27.0-31.0) pg MCHC 32.5 L (33.0-37.0) g/dL RDW 14.0 (11.5-14.5) % Plt Count 230 (130-400) K/uL MPV (7.2-11.7) fl Neut % (Auto) (50.0-75.0) % Lymph % (Auto) (20.0-40.0) % Dickson % (Auto) (0.0-10.0) % Eos % (Auto) (0.0-4.0) % Baso % (Auto) (0.0-2.0) % Neut # (Auto) (1.8-7.0) K/uL Lymph # (Auto) (1.0-4.3) K/uL Dickson # (Auto) (0.0-0.8) K/uL Eos # (Auto) (0.0-0.7) K/uL Baso # (Auto) (0.0-0.2) K/uL APTT 94.5 H (25.6-37.1) Seconds Sodium 139 (132-148) mmol/l Potassium 3.7 (3.6-5.0) MMOL/L Chloride 102 (98-107) mmol/L Carbon Dioxide 31 H (22-30) mmol/L Anion Gap 10 (10-20) BUN 14 (7-17) mg/dl Creatinine 0.8 (0.7-1.2) mg/dl Est GFR ( Amer) > 60 Est GFR (Non-Af Amer) > 60 Random Glucose 98 (65-105) mg/dL Calcium 7.8 L (8.4-10.2) mg/dL Magnesium (1.6-2.3) MG/DL Total Bilirubin 0.6 (0.2-1.3) mg/dl AST 20 (14-36) U/L ALT 28 (9-52) U/L Alkaline Phosphatase 77 (38-126) U/L Total Protein 6.3 (6.3-8.2) G/DL Albumin 2.8 L (3.5-5.0) g/dL Globulin 3.5 (2.2-3.9) gm/dL Albumin/Globulin Ratio 0.8 L (1.0-2.1) C. difficile Ag & Toxin (NEGATIVE) 04/24/18 04/24/18 04/24/18 Range/Units 09:50 09:50 09:50 WBC 12.7 H (4.8-10.8) K/uL RBC 3.75 L (3.80-5.20) Mil/uL Hgb 11.0 L (12.0-16.0) g/dL Hct 33.7 L (34.0-47.0) % MCV 90.0 (81.0-99.0) fl MCH 29.3 (27.0-31.0) pg MCHC 32.6 L (33.0-37.0) g/dL RDW 14.1 (11.5-14.5) % Plt Count 229 (130-400) K/uL MPV 9.3 (7.2-11.7) fl Neut % (Auto) 70.0 (50.0-75.0) % Lymph % (Auto) 13.5 L (20.0-40.0) % Dickson % (Auto) 14.6 H (0.0-10.0) % Eos % (Auto) 1.7 (0.0-4.0) % Baso % (Auto) 0.2 (0.0-2.0) % Neut # (Auto) 8.9 H (1.8-7.0) K/uL Lymph # (Auto) 1.7 (1.0-4.3) K/uL Dickson # (Auto) 1.8 H (0.0-0.8) K/uL Eos # (Auto) 0.2 (0.0-0.7) K/uL Baso # (Auto) 0.0 (0.0-0.2) K/uL APTT 72.3 H (25.6-37.1) Seconds Sodium 140 (132-148) mmol/l Potassium 3.3 L (3.6-5.0) MMOL/L Chloride 100 (98-107) mmol/L Carbon Dioxide 30 (22-30) mmol/L Anion Gap 13 (10-20) BUN 16 (7-17) mg/dl Creatinine 0.9 (0.7-1.2) mg/dl Est GFR ( Amer) > 60 Est GFR (Non-Af Amer) > 60 Random Glucose 146 H (65-105) mg/dL Calcium 8.2 L (8.4-10.2) mg/dL Magnesium 1.4 L (1.6-2.3) MG/DL Total Bilirubin (0.2-1.3) mg/dl AST (14-36) U/L ALT (9-52) U/L Alkaline Phosphatase (38-126) U/L Total Protein (6.3-8.2) G/DL Albumin (3.5-5.0) g/dL Globulin (2.2-3.9) gm/dL Albumin/Globulin Ratio (1.0-2.1) C. difficile Ag & Toxin (NEGATIVE) 04/23/18 Range/Units 15:58 WBC (4.8-10.8) K/uL RBC (3.80-5.20) Mil/uL Hgb (12.0-16.0) g/dL Hct (34.0-47.0) % MCV (81.0-99.0) fl MCH (27.0-31.0) pg MCHC (33.0-37.0) g/dL RDW (11.5-14.5) % Plt Count (130-400) K/uL MPV (7.2-11.7) fl Neut % (Auto) (50.0-75.0) % Lymph % (Auto) (20.0-40.0) % Dickson % (Auto) (0.0-10.0) % Eos % (Auto) (0.0-4.0) % Baso % (Auto) (0.0-2.0) % Neut # (Auto) (1.8-7.0) K/uL Lymph # (Auto) (1.0-4.3) K/uL Dickson # (Auto) (0.0-0.8) K/uL Eos # (Auto) (0.0-0.7) K/uL Baso # (Auto) (0.0-0.2) K/uL APTT (25.6-37.1) Seconds Sodium (132-148) mmol/l Potassium (3.6-5.0) MMOL/L Chloride (98-107) mmol/L Carbon Dioxide (22-30) mmol/L Anion Gap (10-20) BUN (7-17) mg/dl Creatinine (0.7-1.2) mg/dl Est GFR ( Amer) Est GFR (Non-Af Amer) Random Glucose (65-105) mg/dL Calcium (8.4-10.2) mg/dL Magnesium (1.6-2.3) MG/DL Total Bilirubin (0.2-1.3) mg/dl AST (14-36) U/L ALT (9-52) U/L Alkaline Phosphatase (38-126) U/L Total Protein (6.3-8.2) G/DL Albumin (3.5-5.0) g/dL Globulin (2.2-3.9) gm/dL Albumin/Globulin Ratio (1.0-2.1) C. difficile Ag & Toxin Negative (NEGATIVE) Laboratory Results - last 24 hr 04/23/18 04/24/18 04/24/18 15:58 09:50 09:50 WBC 12.7 H RBC 3.75 L Hgb 11.0 L Hct 33.7 L MCV 90.0 MCH 29.3 MCHC 32.6 L RDW 14.1 Plt Count 229 MPV 9.3 Neut % (Auto) 70.0 Lymph % (Auto) 13.5 L Dickson % (Auto) 14.6 H Eos % (Auto) 1.7 Baso % (Auto) 0.2 Neut # (Auto) 8.9 H Lymph # (Auto) 1.7 Dickson # (Auto) 1.8 H Eos # (Auto) 0.2 Baso # (Auto) 0.0 APTT Sodium 140 Potassium 3.3 L Chloride 100 Carbon Dioxide 30 Anion Gap 13 BUN 16 Creatinine 0.9 Est GFR ( Amer) > 60 Est GFR (Non-Af Amer) > 60 Random Glucose 146 H Calcium 8.2 L Magnesium 1.4 L Total Bilirubin AST ALT Alkaline Phosphatase Total Protein Albumin Globulin Albumin/Globulin Ratio C. difficile Ag & Toxin Negative 04/24/18 04/25/18 04/25/18 09:50 04:30 04:30 WBC 10.9 H RBC 3.32 L Hgb 9.9 L Hct 30.5 L MCV 91.9 MCH 29.9 MCHC 32.5 L RDW 14.0 Plt Count 230 MPV Neut % (Auto) Lymph % (Auto) Dickson % (Auto) Eos % (Auto) Baso % (Auto) Neut # (Auto) Lymph # (Auto) Dickson # (Auto) Eos # (Auto) Baso # (Auto) APTT 72.3 H Sodium 139 Potassium 3.7 Chloride 102 Carbon Dioxide 31 H Anion Gap 10 BUN 14 Creatinine 0.8 Est GFR ( Amer) > 60 Est GFR (Non-Af Amer) > 60 Random Glucose 98 Calcium 7.8 L Magnesium Total Bilirubin 0.6 AST 20 ALT 28 Alkaline Phosphatase 77 Total Protein 6.3 Albumin 2.8 L Globulin 3.5 Albumin/Globulin Ratio 0.8 L C. difficile Ag & Toxin 04/25/18 04:30 WBC RBC Hgb Hct MCV MCH MCHC RDW Plt Count MPV Neut % (Auto) Lymph % (Auto) Dickson % (Auto) Eos % (Auto) Baso % (Auto) Neut # (Auto) Lymph # (Auto) Dickson # (Auto) Eos # (Auto) Baso # (Auto) APTT 94.5 H Sodium Potassium Chloride Carbon Dioxide Anion Gap BUN Creatinine Est GFR ( Amer) Est GFR (Non-Af Amer) Random Glucose Calcium Magnesium Total Bilirubin AST ALT Alkaline Phosphatase Total Protein Albumin Globulin Albumin/Globulin Ratio C. difficile Ag & Toxin Critical Care Progress Note - Nutrition Nutrition: Nutrition Category Date Time Status Modified [Dysphagia/Modified Consistency Diet] [DIET] Diets 04/23/18 Lunch Active Assessment/Plan - Assessment and Plan (Free Text) Assessment: A/P Sepsis, bacteremia, A Fib, NSTEMI, azotemia, anemia - Continue meds - O2 supplement - Pulmonary toilets - heart rate control
[2018-04-25] MEDS: Multivitamin With Minerals Tab PO SCH (09:27)
[2018-04-25] MEDS: Potassium & Sodium Phosphate PO SCH ×4 (09:27→21:06)
[2018-04-25] MEDS: Metoprolol Succinate 50 mg XL Tab PO SCH ×2 (09:28→21:05)
[2018-04-25] MEDS: Magnesium Oxide 400 mg Tab UD PO SCH ×2 (09:28→16:55)
[2018-04-25] MEDS: Pantoprazole 40 mg EC Tab PO SCH (09:29)
--- NOTE | 2018-04-25 11:23 | CP.PCM.PN ---
Subjective - Date & Time of Evaluation Date of Evaluation: 04/25/18 Time of Evaluation: 11:23 Objective - Vital Signs/Intake and Output Vital Signs (last 24 hours): Temp Pulse Resp BP Pulse Ox 98 F 91 H 25 H 149/77 100 04/25/18 08:00 04/25/18 10:00 04/25/18 10:00 04/25/18 10:00 04/25/18 10:00 Intake and Output: 04/25/18 04/25/18 06:59 18:59 Intake Total 240 Output Total Balance 240 - Medications Medications: Current Medications Acetaminophen (Tylenol 325mg Tab) 650 mg PO Q6 PRN PRN Reason: Fever >100.4 F Last Admin: 04/21/18 14:03 Dose: 650 mg Acetaminophen (Tylenol 325mg Tab) 650 mg PO Q6 PRN PRN Reason: Pain, Mild (1-3) Last Admin: 04/24/18 11:28 Dose: 650 mg Acetaminophen (Tylenol 650 Mg Supp) 650 mg MT ONCE PRN PRN Reason: Fever >100.4 F Last Admin: 04/19/18 15:35 Dose: 650 mg Alprazolam (Xanax) 0.5 mg PO Q6 PRN PRN Reason: Anxiety Last Admin: 04/25/18 10:47 Dose: 0.5 mg Apixaban (Eliquis) 5 mg PO Q12 [facility]; Protocol Last Admin: 04/25/18 09:29 Dose: 5 mg Aspirin (Ecotrin) 81 mg PO DAILY [facility] Last Admin: 04/25/18 09:27 Dose: 81 mg Atorvastatin Calcium (Lipitor) 40 mg PO DAILY [facility] Last Admin: 04/24/18 09:09 Dose: 40 mg Diltiazem HCl (Cardizem) 30 mg PO TID [facility] Last Admin: 04/25/18 09:29 Dose: 30 mg Docusate Sodium (Colace) 100 mg PO TID PRN PRN Reason: Constipation Duloxetine HCl (Cymbalta) 60 mg PO HS [facility] Last Admin: 04/24/18 21:10 Dose: 60 mg Glycerin (Glycerin Adult Suppository) 1 sup MT ONCE PRN PRN Reason: constipation Meropenem 1 gm/ Sodium (Chloride) 100 mls @ 100 mls/hr IVPB Q8 [facility]; Protocol Last Admin: 04/25/18 09:26 Dose: 100 mls/hr Lactated Ringer's (Lactated Ringer's) 1,000 mls @ 60 mls/hr IV .[id number] [facility] Last Admin: 04/24/18 09:06 Dose: 60 mls/hr Magnesium Oxide (Mag-Ox) 400 mg PO BID [facility] Last Admin: 04/25/18 09:28 Dose: 400 mg Metoprolol Succinate (Toprol Xl) 50 mg PO Q12 [facility] Last Admin: 04/25/18 09:28 Dose: 50 mg Multivitamins/Minerals (Therapeutic-M Tab) 1 tab PO DAILY [facility] Last Admin: 04/25/18 09:27 Dose: 1 tab Ondansetron HCl (Zofran Inj) 4 mg IVP Q6 PRN PRN Reason: Nausea/Vomiting Last Admin: 04/23/18 14:00 Dose: 4 mg Pantoprazole Sodium (Protonix Ec Tab) 40 mg PO DAILY [facility] Last Admin: 04/25/18 09:29 Dose: 40 mg Potassium Phos/Sodium Phos (Neutra-Phos) 1 pkt PO QID [facility] Last Admin: 04/25/18 09:27 Dose: 1 pkt Trazodone HCl (Desyrel) 50 mg PO HS [facility] Last Admin: 04/24/18 21:09 Dose: 50 mg - Labs Labs: 04/25/18 04:30 04/25/18 04:30 PT 17.1 Seconds (9.8-13.1) H 04/19/18 17:25 INR 1.5 04/19/18 17:25 APTT 94.5 Seconds (25.6-37.1) H 04/25/18 04:30 Assessment and Plan (1) Rapid atrial fibrillation Status: Acute (2) Respiratory failure requiring intubation Status: Acute (3) Severe sepsis Status: Acute (4) Troponin level elevated Status: Acute (5) ARF (acute renal failure) Status: Acute (6) Bilateral lower extremity edema Status: Acute (7) Pyelonephritis, acute Status: Acute (8) Severe dehydration Status: Acute (9) Aortic insufficiency Status: Chronic - Assessment and Plan (Free Text) Plan: rate controlled afib give extra 40 meq kcl po check lytes in am cont anticoag doing better
[2018-04-25] MEDS ORDERED: Potassium Chloride 20 mEq/15 ml LIQ UD PO ONE (17:00)
[2018-04-26] MEDS: Meropenem 1 GM in Sodium Chloride 0.9% 100 ML IVPB SCH ×3 (00:14→16:46)
[2018-04-26 06:05] LABS: BLOOD UREA NITROGEN 13 mg/dl (7-17); CALCIUM 8.2 mg/dL (8.4-10.2); GFR NON-AFRICAN AMERICAN > 60
--- NOTE | 2018-04-26 07:30 | CP.CCUPN ---
CCU Subjective - Physician Review Subjective (Free Text): 04/26/18 07:31 The patient was Seen/interviewed and examined by me at the bedside during ICU round, Medical records reviewed and Management issues were discussed and formulated with the house staff. Events reviewed Patient is a 77 Years old Female with past medical history of Anxiety, Arthritis, Bronchitis, Cardia Arrhythmia, Colonic Polyps, COPD, Depression, Fibromyalgia, Fractures, Gastritis, GERD, HTN, Osteoporosis, Pancreatitis, Peripheral Edema, Pneumonia, Chronic Pain (bilateral LE) She arrived to the emergency room complaining of two to three days of right sided back pain accompanied with urinary symptoms of hesitation and urgency. Abdomen CT: Renal stones bilaterally. Right 7.3mm obstructing stone in ureterovesical junction, R. Hypodronephrosis. Multiple non obstructing stones in left renal pelvis w/ mild left hydronephrosis Intially admitted to the Telemetry for management of Severe Sepsis likely from UTI secondary to obstructive uropathy [facility] [employer] sent and started on Rocephin 2g daily Also urology consulted 04/19 [facility] was called for Hypotension with blood pressure of 64/36 IV fluid hydration noted with slight improvement of vital signs She was transferred to the ICU for management of septic shock, hypotensive Another liter of IV bolus initiated under urgent circumstances and complete sterile precautions Right femoral central line was placed Vasopressor with Levophed intiated 04/20, the patient was found to be in respiratory distress, tachypna, febrile Tmax 102.9 and lethergic She was urgently intubated and mechanically vented Patient was successfully extubated 04/22 This morning, she is doing much better Awake, Alert and oriented. Breathing unlabored Comfortable, NAD + Complain of weaknwss Denies any chest pain, SOB or Palpitations Was seen by swallow pathology and will start bite size PO diet Will be evaluated by PT/OT for possible transfer to TCU This morning labs revealed Leucocytosis trending down, Stable renal function BUN/Cr CCU Objective - Vital Signs / Intake & Output Vital Signs (Last 4 hours): Vital Signs Pulse Resp BP Pulse Ox 04/26/18 06:00 75 23 122/77 99 04/26/18 04:00 72 23 122/77 100 Intake and Output (Last 8hrs): Intake & Output 04/25/18 04/26/18 04/26/18 22:59 06:59 14:59 Intake Total 104 100 Output Total 550 Balance 104 -450 Weight 219 lb Intake: IV 4 Intake, Piggyback 100 100 Output: Urine 550 Urine, Voided 550 Other: # Voids Urethral (Reagan) 850 - Physical Exam Head: Positive for: Atraumatic, Normocephalic Pupils: Positive for: PERRL Extroacular Muscles: Positive for: EOMI Conjunctiva: Positive for: Normal. Negative for: Injected, Icteric Nose (Internal): Positive for: Normal Inspection Neck: Positive for: Normal Range of Motion, Trachea Midline. Negative for: Meningeal Signs, MIDLINE TENDERNESS, Paraspinal Tenderness, JVD, Lymphadenopathy, Bruit, Other Respiratory/Chest: Positive for: Good Air Exchange, Rhonchi, Tachypneic. Negative for: Clear to Auscultation, Wheezes, Rales Cardiovascular: Positive for: Regular Rate and Rhythm, Normal S1, S2. Negative for: Murmurs Abdomen: Positive for: Distention, Normal Bowel Sounds. Negative for: Tenderness Back: Positive for: CVA Tenderness Lower Extremity: Positive for: Edema Psychiatric: Positive for: Alert - Medications Active Medications: Active Medications Generic Name Dose Route Start Last Admin Trade Name Freq PRN Reason Stop Dose Admin Acetaminophen 650 mg 04/19/18 00:29 04/21/18 14:03 Tylenol 325mg Tab PO 650 mg Q6 PRN Administration Fever >100.4 F Acetaminophen 650 mg 04/19/18 01:57 04/25/18 22:58 Tylenol 325mg Tab PO 650 mg Q6 PRN Administration Pain, Mild (1-3) Acetaminophen 650 mg 04/19/18 15:45 04/19/18 15:35 Tylenol 650 Mg Supp MT 650 mg ONCE PRN Administration Fever >100.4 F Alprazolam 0.5 mg 04/23/18 12:25 04/26/18 04:00 Xanax PO 0.5 mg Q6 PRN Administration Anxiety Apixaban 5 mg 04/25/18 09:00 04/25/18 21:06 Eliquis PO 5 mg Q12 PATTI Administration Protocol Aspirin 81 mg 04/22/18 09:00 04/25/18 09:27 Ecotrin PO 81 mg DAILY PATTI Administration Atorvastatin Calcium 40 mg 04/19/18 09:00 04/25/18 16:53 Lipitor PO 40 mg DAILY PATTI Administration Diltiazem HCl 30 mg 04/24/18 09:00 04/25/18 16:56 Cardizem PO 30 mg TID PATTI Administration Docusate Sodium 100 mg 04/19/18 01:17 Colace PO TID PRN Constipation Duloxetine HCl 60 mg 04/19/18 22:00 04/25/18 21:04 Cymbalta PO 60 mg HS PATTI Administration Glycerin 1 sup 04/19/18 00:39 Glycerin Adult Suppository [place] ONCE PRN constipation Meropenem 1 gm/ Sodium 100 mls @ 100 mls/hr 04/21/18 17:00 04/26/18 00:14 Chloride IVPB 100 mls/hr Q8 PATTI Administration Protocol Lactated Ringer's 1,000 mls @ 60 mls/hr 04/24/18 07:45 04/24/18 09:06 Lactated Ringer's IV 60 mls/hr .[id number] PATTI Administration Magnesium Oxide 400 mg 04/19/18 09:00 04/25/18 16:55 Mag-Ox PO 400 mg BID PATTI Administration Metoprolol Succinate 50 mg 04/23/18 21:00 04/25/18 21:05 Toprol Xl PO 50 mg Q12 PATTI Administration Multivitamins/Minerals 1 tab 04/19/18 09:00 04/25/18 09:27 Therapeutic-M Tab PO 1 tab DAILY PATTI Administration Ondansetron HCl 4 mg 04/19/18 00:29 04/23/18 14:00 Zofran Inj IVP 4 mg Q6 PRN Administration Nausea/Vomiting Pantoprazole Sodium 40 mg 04/19/18 09:00 04/25/18 09:29 Protonix Ec Tab PO 40 mg DAILY PATTI Administration Potassium Phos/Sodium Phos 1 pkt 04/19/18 09:00 04/25/18 21:06 Neutra-Phos PO Not Given QID PATTI Trazodone HCl 50 mg 04/23/18 22:00 04/25/18 21:05 Desyrel PO 50 mg HS PATTI Administration - Patient Studies Lab Studies: Microbiology Studies 04/20/18 18:50 Blood Culture - Final Blood-Venous NO GROWTH AFTER 5 DAYS Gram Stain - Final TEST NOT PERFORMED 04/20/18 18:30 Blood Culture - Final Blood-Venous NO GROWTH AFTER 5 DAYS Gram Stain - Final TEST NOT PERFORMED 04/22/18 16:00 Urine Culture - Final Urine,Reagan Vancomycin Res E.faecalis Lab Studies 04/26/18 Range/Units 04:30 Sodium 139 (132-148) mmol/l Potassium 3.9 (3.6-5.0) MMOL/L Chloride 102 (98-107) mmol/L Carbon Dioxide 33 H (22-30) mmol/L Anion Gap 8 L (10-20) BUN 13 (7-17) mg/dl Creatinine 0.8 (0.7-1.2) mg/dl Est GFR ( Amer) > 60 Est GFR (Non-Af Amer) > 60 Random Glucose 111 H (65-105) mg/dL Calcium 8.2 L (8.4-10.2) mg/dL Magnesium 1.8 (1.6-2.3) MG/DL Laboratory Results - last 24 hr 04/26/18 04:30 Sodium 139 Potassium 3.9 Chloride 102 Carbon Dioxide 33 H Anion Gap 8 L BUN 13 Creatinine 0.8 Est GFR ( Amer) > 60 Est GFR (Non-Af Amer) > 60 Random Glucose 111 H Calcium 8.2 L Magnesium 1.8 Critical Care Progress Note - Extremities/Vascular Does the Patient have a Central Venous Catheter?: Yes Does the Patient need a Central Venous Catheter?: No (Will remove today) - Nutrition Nutrition: Nutrition Category Date Time Status Modified [Dysphagia/Modified Consistency Diet] [DIET] Diets 04/23/18 Lunch Active Assessment/Plan (1) Septic shock Current Visit: Yes Status: Acute Priority: High (2) Acute respiratory failure with hypoxia Current Visit: Yes Status: Acute Priority: High (3) ARF (acute renal failure) Current Visit: Yes Status: Acute Priority: High (4) Tachycardia Current Visit: Yes Status: Acute Priority: High (5) Nephrolithiasis Current Visit: Yes Status: Acute Priority: High (6) Hydronephrosis Current Visit: Yes Status: Acute Priority: High
[2018-04-26] MEDS: Magnesium Oxide 400 mg Tab UD PO SCH ×2 (08:40→16:45)
[2018-04-26] MEDS: Potassium & Sodium Phosphate PO SCH ×3 (08:41→16:44)
[2018-04-26] MEDS: Pantoprazole 40 mg EC Tab PO SCH (08:42)
[2018-04-26] MEDS: Metoprolol Succinate 50 mg XL Tab PO SCH (08:42)
[2018-04-26] MEDS: Multivitamin With Minerals Tab PO SCH (08:42)
[2018-04-26 09:15] LABS: HEMOGLOBIN 10.5 g/dL (12.0-16.0); MEAN CELL VOLUME 91.8 fl (81.0-99.0); MEAN CORPUSCULAR HEMOGLOBIN 29.6 pg (27.0-31.0); MEAN CORPUSCULAR HGB CONC 32.3 g/dL (33.0-37.0); RBC 3.56 Mil/uL (3.80-5.20); RED CELL DISTRIBUTION WIDTH 14.4 % (11.5-14.5); WHITE BLOOD COUNT 10.3 K/uL (4.8-10.8)
--- NOTE | 2018-04-26 09:18 | CP.PCM.PN ---
Subjective - Date & Time of Evaluation Date of Evaluation: 04/26/18 Time of Evaluation: 09:17 - Subjective Subjective: pt seen and evaluated at bedside this morning. No acute events overnight. Laying in bed comfortably, NAD. Afebrile. All AM labs and documentation reviewed. Remains in afib on monitor but is rate controlled in mid-70s. BP stable. Pt is a wake and alert and following commands w/o issue. No new complaints/concerns. Objective - Vital Signs/Intake and Output Vital Signs (last 24 hours): Temp Pulse Resp BP Pulse Ox 98 F 78 21 145/83 99 04/26/18 08:00 04/26/18 08:42 04/26/18 08:00 04/26/18 08:42 04/26/18 08:00 Intake and Output: 04/26/18 04/26/18 06:59 18:59 Intake Total 100 Output Total 550 Balance -450 - Medications Medications: Current Medications Acetaminophen (Tylenol 325mg Tab) 650 mg PO Q6 PRN PRN Reason: Fever >100.4 F Last Admin: 04/21/18 14:03 Dose: 650 mg Acetaminophen (Tylenol 325mg Tab) 650 mg PO Q6 PRN PRN Reason: Pain, Mild (1-3) Last Admin: 04/25/18 22:58 Dose: 650 mg Acetaminophen (Tylenol 650 Mg Supp) 650 mg [place] ONCE PRN PRN Reason: Fever >100.4 F Last Admin: 04/19/18 15:35 Dose: 650 mg Alprazolam (Xanax) 0.5 mg PO Q6 PRN PRN Reason: Anxiety Last Admin: 04/26/18 04:00 Dose: 0.5 mg Apixaban (Eliquis) 5 mg PO Q12 [facility]; Protocol Last Admin: 04/26/18 08:40 Dose: 5 mg Aspirin (Ecotrin) 81 mg PO DAILY [facility] Last Admin: 04/26/18 08:39 Dose: 81 mg Atorvastatin Calcium (Lipitor) 40 mg PO DAILY [facility] Last Admin: 04/26/18 08:40 Dose: 40 mg Diltiazem HCl (Cardizem) 30 mg PO TID [facility] Last Admin: 04/26/18 08:37 Dose: 30 mg Docusate Sodium (Colace) 100 mg PO TID PRN PRN Reason: Constipation Duloxetine HCl (Cymbalta) 60 mg PO HS [facility] Last Admin: 04/25/18 21:04 Dose: 60 mg Glycerin (Glycerin Adult Suppository) 1 sup [place] ONCE PRN PRN Reason: constipation Meropenem 1 gm/ Sodium (Chloride) 100 mls @ 100 mls/hr IVPB Q8 [facility]; Protocol Last Admin: 04/26/18 08:41 Dose: 100 mls/hr Lactated Ringer's (Lactated Ringer's) 1,000 mls @ 60 mls/hr IV .[id number] [facility] Last Admin: 04/24/18 09:06 Dose: 60 mls/hr Magnesium Oxide (Mag-Ox) 400 mg PO BID [facility] Last Admin: 04/26/18 08:40 Dose: 400 mg Metoprolol Succinate (Toprol Xl) 50 mg PO Q12 [facility] Last Admin: 04/26/18 08:42 Dose: 50 mg Multivitamins/Minerals (Therapeutic-M Tab) 1 tab PO DAILY [facility] Last Admin: 04/26/18 08:42 Dose: 1 tab Ondansetron HCl (Zofran Inj) 4 mg IVP Q6 PRN PRN Reason: Nausea/Vomiting Last Admin: 04/23/18 14:00 Dose: 4 mg Pantoprazole Sodium (Protonix Ec Tab) 40 mg PO DAILY [facility] Last Admin: 04/26/18 08:42 Dose: 40 mg Potassium Phos/Sodium Phos (Neutra-Phos) 1 pkt PO QID [facility] Last Admin: 04/26/18 08:41 Dose: 1 pkt Trazodone HCl (Desyrel) 50 mg PO HS [facility] Last Admin: 04/25/18 21:05 Dose: 50 mg - Labs Labs: 04/25/18 04:30 04/26/18 04:30 PT 17.1 Seconds (9.8-13.1) H 04/19/18 17:25 INR 1.5 04/19/18 17:25 APTT 94.5 Seconds (25.6-37.1) H 04/25/18 04:30 - Constitutional Appears: Non-toxic, No Acute Distress - Eye Exam Eye Exam: EOMI, PERRL. absent: Scleral icterus - ENT Exam ENT Exam: Mucous Membranes Moist - Respiratory Exam Respiratory Exam: Clear to Ausculation Bilateral, NORMAL BREATHING PATTERN. absent: Rales, Rhonchi, Wheezes - Cardiovascular Exam Cardiovascular Exam: REGULAR RHYTHM, +S1, +S2. absent: Bradycardia, Tachycardia, Irregular Rhythm, JVD, Murmur - GI/Abdominal Exam GI & Abdominal Exam: Soft, Normal Bowel Sounds. absent: Distended, Firm, Guarding, Rigid, Tenderness - Extremities Exam Extremities Exam: Normal Capillary Refill, Pedal Edema (trace, improving ). absent: Calf Tenderness, Tenderness - Neurological Exam Neurological Exam: Alert, Awake, CN II-XII Intact - Psychiatric Exam Psychiatric exam: Normal Affect, Normal Mood - Skin Skin Exam: Dry, Intact, Normal Color, Warm Assessment and Plan - Assessment and Plan (Free Text) Assessment: 77 y/o female patient with PMH frequent UTI, urinary incontinence , HTN, depression with anxiety, chronic constipation ,renal stones admitted for sepsis secondary to UTI. She was started on Rocephin 2 g IV initially , cultures were sent and urology consulted [employer] was called for hypotension on 04/19, Patient transferred to ICU for sepsis with shock , started on IVF and Levophed, WBC trended up to 33 k with lactate 3.4. ID consulted and antibiotics changed to Meropenem IV, Intubated in ICU on 04/20 for impending respiratory failure. Pt was extubated on 04/22 and tolerated well. Pt is now afebrile, with stable BP, normalized WBC, and regular HR. 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 -currently on Meropenem 1gm Q8H -f/u ID recommendations Acute Respiratory Failure: -resolved -extubated 04/22 Pyelonephritis -f/u cultures: E.coli -improving, normal WBC today -Continue Meropenem 1gm Q8 -renal u/s: nonobstructive renal stones -f/u ID recommendations -urology on board, recommends waiting for medical stabilization prior to intervention Atrial Fibrillation w RVR: -resolved, rate controlled today -c/w cardiac monitoring -started Cardizem 30mg PO TID -resumed Metroprolol IV and PO -started Eliquis 5mg Q12H -cardiology consult, f/u recs Acute Renal Injury -resolved Troponemia -Echo showed LVF with EF 55 % -trending down -as per cardio likely 2/2 to combination of septic shock and YASEMIN Foreign Bodies: -right femoral triple lumen Prophylaxis -HOB elevation -Protonix -Eliquis 5mg Q12H
[2018-04-26] MEDS ORDERED: Linezolid 600 mg in D5W 300 ml 600 MG/300 ML BAG IVPB SCH (11:00)
--- NOTE | 2018-04-26 11:33 | CP.PCM.DIS ---
Provider - Provider Date of Admission: 04/19/18 00:21 Attending physician: Edwin Cortes MD Consults: 04/19/18 01:37 Urology Consult Stat Comment: Renal Calc with mild hydro Consulting Provider: Patti Ellis Consulting Physician: Patti Ellis Reason for Consult: renal babar with mild hydro 04/19/18 08:42 Cardiology Consult Routine Comment: Consulting Provider: Alexander Kathleen Consulting Physician: Alexander Kathleen Reason for Consult: elevated troponin, pedal edema 04/19/18 18:12 Infectious Disease Consult Routine Comment: Consulting Provider: Sammy Castano Consulting Physician: Sammy Castano Reason for Consult: plesae evaluate for sepsis , Pyelonephritis Physician Consult Routine Comment: Consulting Provider: Sammy Castano Consulting Physician: Sammy Castano Reason for Consult: sepsis 04/21/18 09:00 Wound Care [Nursing Referral for Wound Care] Routine Comment: Physician Instructions: Reason For Exam: Redness to abdominal & bilateral breast folds. Time Spent in preparation of Discharge (in minutes): 35 Hospital Course - Lab Results Lab Results: Micro Results 04/20/18 18:50 Blood-Venous Blood Culture - Final NO GROWTH AFTER 5 DAYS 04/20/18 18:50 Blood-Venous Gram Stain - Final TEST NOT PERFORMED 04/20/18 18:30 Blood-Venous Blood Culture - Final NO GROWTH AFTER 5 DAYS 04/20/18 18:30 Blood-Venous Gram Stain - Final TEST NOT PERFORMED 04/22/18 16:00 Urine,Reagan Urine Culture - Final Vancomycin Res E.faecalis 04/18/18 23:04 Blood-Venous Blood Culture - Final Escherichia Coli 04/18/18 23:04 Blood-Venous Gram Stain - Final 04/18/18 22:04 Urine,Clean Catch Urine Culture - Final Escherichia Coli 04/19/18 08:10 Naris MRSA Culture (Admit) - Final MRSA DETECTED Most Recent Lab Values WBC 10.3 K/uL (4.8-10.8) 04/26/18 08:30 RBC 3.56 Mil/uL (3.80-5.20) L 04/26/18 08:30 Hgb 10.5 g/dL (12.0-16.0) L 04/26/18 08:30 Hct 32.7 % (34.0-47.0) L 04/26/18 08:30 MCV 91.8 fl (81.0-99.0) 04/26/18 08:30 MCH 29.6 pg (27.0-31.0) 04/26/18 08:30 MCHC 32.3 g/dL (33.0-37.0) L 04/26/18 08:30 RDW 14.4 % (11.5-14.5) 04/26/18 08:30 Plt Count 325 K/uL (130-400) 04/26/18 08:30 MPV 9.3 fl (7.2-11.7) 04/24/18 09:50 Neut % (Auto) 70.0 % (50.0-75.0) 04/24/18 09:50 Lymph % (Auto) 13.5 % (20.0-40.0) L 04/24/18 09:50 M[place]ulloch % (Auto) 14.6 % (0.0-10.0) H 04/24/18 09:50 Eos % (Auto) 1.7 % (0.0-4.0) 04/24/18 09:50 Baso % (Auto) 0.2 % (0.0-2.0) 04/24/18 09:50 Neut # (Auto) 8.9 K/uL (1.8-7.0) H 04/24/18 09:50 Lymph # (Auto) 1.7 K/uL (1.0-4.3) 04/24/18 09:50 [place] # (Auto) 1.8 K/uL (0.0-0.8) H 04/24/18 09:50 Eos # (Auto) 0.2 K/uL (0.0-0.7) 04/24/18 09:50 Baso # (Auto) 0.0 K/uL (0.0-0.2) 04/24/18 09:50 Total Counted Cancelled 04/19/18 15:40 Neutrophils % (Manual) 86 % (42-75) H 04/19/18 04:30 Band Neutrophils % 6 % (0-2) H 04/19/18 04:30 Lymphocytes % (Manual) 2 % (20-50) L 04/19/18 04:30 Reactive Lymphs % Cancelled 04/19/18 15:40 Monocytes % (Manual) 5 % (0-10) 04/19/18 04:30 Eosinophils % (Manual) 1 % (0-7) 04/18/18 21:40 Basophils % (Manual) Cancelled 04/19/18 15:40 Metamyelocytes % 1 % (0-0) H 04/19/18 04:30 Myelocytes % Cancelled 04/19/18 15:40 Promyelocytes % Cancelled 04/19/18 15:40 Blast Cells % Cancelled 04/19/18 15:40 Plasma Cell % (Manual) Cancelled 04/19/18 15:40 Nucleated RBC % Cancelled 04/19/18 15:40 Hypersegmented Polys Cancelled 04/19/18 15:40 Smudge Cells Cancelled 04/19/18 15:40 Toxic Granulation Present 04/19/18 04:30 Dohle Bodies Cancelled 04/19/18 15:40 Alissa Rods Cancelled 04/19/18 15:40 Platelet Estimate Normal (NORMAL) 04/19/18 04:30 Plt Clumps, EDTA Cancelled 04/19/18 15:40 Large Platelets Cancelled 04/19/18 15:40 Giant Platelets Cancelled 04/19/18 15:40 RBC Morphology Cancelled 04/19/18 15:40 Polychromasia Cancelled 04/19/18 15:40 Hypochromasia (manual) Slight 04/19/18 04:30 Poikilocytosis (manual Cancelled 04/19/18 15:40 Basophilic Stippling Cancelled 04/19/18 15:40 Anisocytosis (manual) Slight 04/18/18 21:40 Microcytosis (manual) Cancelled 04/19/18 15:40 Macrocytosis (manual) Cancelled 04/19/18 15:40 Spherocytes Cancelled 04/19/18 15:40 Sickle Cells Cancelled 04/19/18 15:40 Target Cells Cancelled 04/19/18 15:40 Tear Drop Cells Slight 04/18/18 21:40 Ovalocytes Slight 04/19/18 04:30 Stomatocytes Cancelled 04/19/18 15:40 Helmet Cells Cancelled 04/19/18 15:40 [place] Bodies Cancelled 04/19/18 15:40 Alana Cells Cancelled 04/19/18 15:40 Acanthocytes (Spur) Cancelled 04/19/18 15:40 Rouleaux Cancelled 04/19/18 15:40 Schistocytes Cancelled 04/19/18 15:40 PT 17.1 Seconds (9.8-13.1) H 04/19/18 17:25 INR 1.5 04/19/18 17:25 APTT 94.5 Seconds (25.6-37.1) H 04/25/18 04:30 pCO2 34 mm/Hg (35-45) L 04/22/18 03:58 pO2 139 mm/Hg (80-100) H 04/22/18 03:58 HCO3 23.7 mmol/L (21-28) 04/22/18 03:58 ABG pH 7.42 (7.35-7.45) 04/22/18 03:58 ABG Total CO2 23.1 mmol/L (22-28) 04/22/18 03:58 ABG O2 Saturation 97.5 % (95-98) 04/22/18 03:58 ABG O2 Content 14.1 ML/dL (15-23) L 04/20/18 07:41 ABG Base Excess -1.7 mmol/L (-2.0-3.0) 04/22/18 03:58 ABG Hemoglobin 10.6 g/dL (11.7-17.4) L 04/20/18 07:41 ABG Carboxyhemoglobin 0 % (0.5-1.5) L 04/20/18 07:41 POC ABG HHb (Measured) 5.3 % (0.0-5.0) H 04/20/18 07:41 ABG Methemoglobin 0.7 % (0.0-3.0) 04/20/18 07:41 ABG O2 Capacity 14.9 mL/dL (16-24) L 04/20/18 07:41 Mahesh Test Yes 04/22/18 03:58 ABG Potassium 4.1 mmol/L (3.6-5.2) 04/22/18 03:58 A-a O2 Difference 104.0 mm/Hg 04/22/18 03:58 Hgb O2 Saturation 94.0 % (95.0-98.0) L 04/20/18 07:41 Sodium 142.0 mmol/L (132-148) 04/22/18 03:58 Chloride 116.0 mmol/L (98-107) H 04/22/18 03:58 Glucose 121 mg/dL (65-105) H 04/22/18 03:58 Lactate 1.0 mmol/L (0.7-2.1) 04/22/18 03:58 Vent Mode A/c 04/22/18 03:58 Mechanical Rate 16 04/22/18 03:58 FiO2 40.0 % 04/22/18 03:58 Tidal Volume 450 04/22/18 03:58 PEEP 5 04/22/18 03:58 Sodium 139 mmol/l (132-148) 04/26/18 04:30 Potassium 3.9 MMOL/L (3.6-5.0) 04/26/18 04:30 Chloride 102 mmol/L (98-107) 04/26/18 04:30 Carbon Dioxide 33 mmol/L (22-30) H 04/26/18 04:30 Anion Gap 8 (10-20) L 04/26/18 04:30 BUN 13 mg/dl (7-17) 04/26/18 04:30 Creatinine 0.8 mg/dl (0.7-1.2) 04/26/18 04:30 Est GFR ( Amer) > 60 04/26/18 04:30 Est GFR (Non-Af Amer) > 60 04/26/18 04:30 Random Glucose 111 mg/dL (65-105) H 04/26/18 04:30 Hemoglobin A1c 6.4 % (4.2-6.5) 04/19/18 04:45 Lactic Acid 1.2 mmol/L (0.7-2.1) 04/22/18 04:45 Calcium 8.2 mg/dL (8.4-10.2) L 04/26/18 04:30 Phosphorus 3.8 mg/dl (2.5-4.5) 04/21/18 04:20 Magnesium 1.8 MG/DL (1.6-2.3) 04/26/18 04:30 Total Bilirubin 0.6 mg/dl (0.2-1.3) 04/25/18 04:30 Direct Bilirubin 0.3 mg/ml (0.0-0.4) 04/19/18 00:46 AST 20 U/L (14-36) 04/25/18 04:30 ALT 28 U/L (9-52) 04/25/18 04:30 Alkaline Phosphatase 77 U/L (38-126) 04/25/18 04:30 Troponin I 0.1120 ng/mL (0.00-0.120) 04/22/18 04:45 NT-Pro-B Natriuret Pep 596 pg/ml (0-900) 04/19/18 01:17 Total Protein 6.3 G/DL (6.3-8.2) 04/25/18 04:30 Albumin 2.8 g/dL (3.5-5.0) L 04/25/18 04:30 Globulin 3.5 gm/dL (2.2-3.9) 04/25/18 04:30 Albumin/Globulin Ratio 0.8 (1.0-2.1) L 04/25/18 04:30 Triglycerides 133 mg/DL (0-149) D 04/19/18 09:20 Cholesterol 135 mg/dL (0-199) 04/19/18 09:20 LDL Cholesterol Direct 72 mg/dL (0-129) 04/19/18 09:20 HDL Cholesterol 23 MG/DL (30-70) L 04/19/18 09:20 Lipase 31 U/L (23-300) 04/19/18 00:46 Arterial Blood Potassium 4.1 mmol/L (3.6-5.2) 04/22/18 03:58 Urine Color Straw (YELLOW) 04/18/18 22:04 Urine Clarity Slighty-cloudy (Clear) 04/18/18 22:04 Urine pH 7.0 (5.0-8.0) 04/18/18 22:04 Ur Specific [place] 1.010 (1.003-1.030) 04/18/18 22:04 Urine Protein 30 mg/dL (NEGATIVE) 04/18/18 22:04 Urine Glucose (UA) 50 mg/dL (NEGATIVE) 04/18/18 22:04 Urine Ketones Negative mg/dL (NEGATIVE) 04/18/18 22:04 Urine Blood Moderate (NEGATIVE) 04/18/18 22:04 Urine Nitrate Negative (NEGATIVE) 04/18/18 22:04 Urine Bilirubin Negative (NEGATIVE) 04/18/18 22:04 Urine Urobilinogen 0.2-1.0 mg/dL (0.2-1.0) 04/18/18 22:04 Ur Leukocyte Esterase Mod Marco A/uL (Negative) 04/18/18 22:04 Urine RBC (Auto) 56 /hpf (0-3) H 04/18/18 22:04 Urine Microscopic WBC 60 /hpf (0-5) H 04/18/18 22:04 Ur Squamous Epith Cells 2 /hpf (0-5) 04/18/18 22:04 Urine Bacteria Rare (<OCC) 04/18/18 22:04 Vancomycin Trough 13.2 ug/mL (5.0-10.0) H 04/21/18 04:20 C. difficile Ag & Toxin Negative (NEGATIVE) 04/23/18 15:58 Influenza Typ A,B (EIA) Negative for flu a/b (NEGATIVE) 04/18/18 21:40 - Hospital Course Hospital Course: 77 y/o female patient with PMH frequent UTI, urinary incontinence , HTN, depression with anxiety, chronic constipation ,renal stones admitted for sepsis secondary to UTI. She was started on Rocephin 2 g IV initially , cultures were sent and urology consulted [facility] was called for hypotension on 04/19, Patient transferred to ICU for sepsis with shock , started on IVF and Levophed, WBC trended up to 33 k with lactate 3.4. ID consulted and antibiotics changed to Meropenem IV, Intubated in ICU on 04/20 for impending respiratory failure. As pt was hypotensive, all meds that regulated BP were held including her metoprolol. With that, the pt went back into Afib w RVR and required Cardizem and digoxin to regain rate control. Pt was extubated on 04/22 and tolerated well. Pts white count normalized and renal function returned back to baseline full capacity with normal Cr and GFR. She was started on Eliquis for anticoagulation due to afib. She was then discharged to TCU to complete course of IV abx for pyelonephritis and VRE bacteriuria. E.Coli Septicemia with septic shock -afebrile -leukocytosis resolved -blood/urine cx: E.coli -Meropenem 1g Q8H as per ID VRE + Urine Culture -Found to have VRE in urine on recent cultures -currently on Meropenem 1gm Q8H -f/u ID recommendations Acute Respiratory Failure: -resolved -extubated 04/22 Pyelonephritis - 2/2 to E.coli -Continue Meropenem 1gm Q8 -renal u/s: nonobstructive renal stones -urology on board, recommends waiting for medical stabilization prior to intervention Atrial Fibrillation w RVR: -resolved, rate controlled today -c/w cardiac monitoring -started Cardizem 30mg PO TID -resumed Metroprolol IV and PO -started Eliquis 5mg Q12H -cardiology consult, f/u recs Acute Renal Injury -resolved Troponemia -Echo showed LVF with EF 55 % -trending down -as per cardio likely 2 to combination of septic shock and YASEMIN Discharge Exam - Head Exam Head Exam: ATRAUMATIC, NORMOCEPHALIC - Eye Exam Eye Exam: EOMI, PERRL. absent: Scleral icterus - ENT Exam ENT Exam: Mucous Membranes Moist - Respiratory Exam Respiratory Exam: Clear to PA & Lateral, NORMAL BREATHING PATTERN, UNREMARKABLE. absent: Rales, Rhonchi, Wheezes - Cardiovascular Exam Cardiovascular Exam: REGULAR RHYTHM, +S1, +S2. absent: Bradycardia, Tachycardia, Irregular Rhythm, Rubs, Systolic Murmur - GI/Abdominal Exam GI & Abdominal Exam: Normal Bowel Sounds, Soft, Unremarkable. absent: Distended, Firm, Guarding, Mass, Rigid - Extremities Exam Extremities exam: normal capillary refill, normal inspection, pedal edema (trace), pedal pulses present - Neurological Exam Neurological exam: Alert, CN II-XII Intact, Reflexes Normal - Psychiatric Exam Psychiatric exam: Normal Affect, Normal Mood - Skin Skin Exam: Dry, Intact, Normal Color Discharge Plan - Follow Up Plan Condition: STABLE Disposition: REHAB FACILITY/REHAB UNIT Instructions: Sepsis, Adult (DC)
[2018-04-26] MEDS ORDERED: Simethicone 40 mg/0.6 ml Liquid (30 ml) PO PRN (12:28)
--- NOTE | 2018-04-26 16:00 | CP.PCM.PN ---
Subjective - Date & Time of Evaluation Date of Evaluation: 04/26/18 Time of Evaluation: 13:00 - Subjective Subjective: PT CO FATIGUE. AFIB IS RATE CONTROLLED. BP IS STABLE. Objective - Vital Signs/Intake and Output Vital Signs (last 24 hours): Temp Pulse Resp BP Pulse Ox 98.8 F 73 18 134/78 99 04/26/18 12:00 04/26/18 14:00 04/26/18 14:00 04/26/18 12:13 04/26/18 14:00 Intake and Output: 04/26/18 04/26/18 06:59 18:59 Intake Total 100 640 Output Total 550 600 Balance -450 40 - Medications Medications: Current Medications Acetaminophen (Tylenol 325mg Tab) 650 mg PO Q6 PRN PRN Reason: Fever >100.4 F Last Admin: 04/21/18 14:03 Dose: 650 mg Acetaminophen (Tylenol 325mg Tab) 650 mg PO Q6 PRN PRN Reason: Pain, Mild (1-3) Last Admin: 04/25/18 22:58 Dose: 650 mg Acetaminophen (Tylenol 650 Mg Supp) 650 mg [place] ONCE PRN PRN Reason: Fever >100.4 F Last Admin: 04/19/18 15:35 Dose: 650 mg Alprazolam (Xanax) 0.5 mg PO Q6 PRN PRN Reason: Anxiety Last Admin: 04/26/18 04:00 Dose: 0.5 mg Apixaban (Eliquis) 5 mg PO Q12 [facility]; Protocol Last Admin: 04/26/18 08:40 Dose: 5 mg Aspirin (Ecotrin) 81 mg PO DAILY [facility] Last Admin: 04/26/18 08:39 Dose: 81 mg Atorvastatin Calcium (Lipitor) 40 mg PO DAILY [facility] Last Admin: 04/26/18 08:40 Dose: 40 mg Diltiazem HCl (Cardizem) 30 mg PO TID [facility] Last Admin: 04/26/18 12:13 Dose: 30 mg Docusate Sodium (Colace) 100 mg PO TID PRN PRN Reason: Constipation Duloxetine HCl (Cymbalta) 60 mg PO HS [facility] Last Admin: 04/25/18 21:04 Dose: 60 mg Glycerin (Glycerin Adult Suppository) 1 sup [place] ONCE PRN PRN Reason: constipation Meropenem 1 gm/ Sodium (Chloride) 100 mls @ 100 mls/hr IVPB Q8 [facility]; Protocol Last Admin: 04/26/18 08:41 Dose: 100 mls/hr Lactated Ringer's (Lactated Ringer's) 1,000 mls @ 60 mls/hr IV .[id number] [facility] Last Admin: 04/24/18 09:06 Dose: 60 mls/hr Linezolid (Zyvox 600mg/300ml D5w) 600 mg in 300 mls @ 300 mls/hr IVPB Q12 [facility]; Protocol Last Admin: 04/26/18 12:13 Dose: 300 mls/hr Magnesium Oxide (Mag-Ox) 400 mg PO BID [facility] Last Admin: 04/26/18 08:40 Dose: 400 mg Metoprolol Succinate (Toprol Xl) 50 mg PO Q12 [facility] Last Admin: 04/26/18 08:42 Dose: 50 mg Multivitamins/Minerals (Therapeutic-M Tab) 1 tab PO DAILY [facility] Last Admin: 04/26/18 08:42 Dose: 1 tab Ondansetron HCl (Zofran Inj) 4 mg IVP Q6 PRN PRN Reason: Nausea/Vomiting Last Admin: 04/23/18 14:00 Dose: 4 mg Pantoprazole Sodium (Protonix Ec Tab) 40 mg PO DAILY [facility] Last Admin: 04/26/18 08:42 Dose: 40 mg Potassium Phos/Sodium Phos (Neutra-Phos) 1 pkt PO QID [facility] Last Admin: 04/26/18 12:12 Dose: 1 pkt Simethicone (Mylicon Liq) 80 mg PO Q6 PRN PRN Reason: Flatulence Last Admin: 04/26/18 12:34 Dose: 80 ml Trazodone HCl (Desyrel) 50 mg PO HS [facility] Last Admin: 04/25/18 21:05 Dose: 50 mg - Labs Labs: 04/26/18 08:30 04/26/18 04:30 PT 17.1 Seconds (9.8-13.1) H 04/19/18 17:25 INR 1.5 04/19/18 17:25 APTT 94.5 Seconds (25.6-37.1) H 04/25/18 04:30 - Constitutional Appears: Non-toxic - Head Exam Head Exam: ATRAUMATIC, NORMAL INSPECTION, NORMOCEPHALIC - Eye Exam Eye Exam: EOMI, Normal appearance, PERRL. absent: Conjunctival injection, Nystagmus, Periorbital swelling, Periorbital tenderness, Scleral icterus Pupil Exam: NORMAL ACCOMODATION, PERRL - ENT Exam ENT Exam: Mucous Membranes Moist, Normal Exam. absent: Mucous Membranes Dry, Normal External Ear Exam, Normal Oropharynx, TM's Normal Bilaterally - Neck Exam Neck Exam: Full ROM, Normal Inspection - Respiratory Exam Respiratory Exam: Clear to Ausculation Bilateral, NORMAL BREATHING PATTERN. absent: Accessory Muscle Use, Chest Wall Tenderness, Decreased Breath Sounds, Prolonged Expiratory Phase, Rales, Rhonchi, Wheezes, Respiratory Distress, Stridor - Cardiovascular Exam Cardiovascular Exam: Irregular Rhythm, +S1, +S2, Murmur. absent: Bradycardia, Tachycardia, Clicks, Diastolic murmur, Gallop, REGULAR RHYTHM, JVD, RRR, Rubs, +S4 - GI/Abdominal Exam GI & Abdominal Exam: Soft, Normal Bowel Sounds. absent: Bruit, Distended, Firm, Guarding, Rigid, Tenderness, Diminished Bowel Sounds, Hernia, Hyperactive Bowel Sounds, Hypoactive Bowel Sounds, Organomegaly, Pulsatile Mass, Rebound, Mass - Rectal Exam Rectal Exam: Deferred - Extremities Exam Extremities Exam: Normal Capillary Refill, Pedal Edema - Back Exam Back Exam: NORMAL INSPECTION - Neurological Exam Neurological Exam: Alert, Awake, CN II-XII Intact, Oriented x3 - Psychiatric Exam Psychiatric exam: Normal Affect, Normal Mood - Skin Skin Exam: Dry, Intact, Normal Color, Warm Assessment and Plan (1) Rapid atrial fibrillation Status: Acute (2) Respiratory failure requiring intubation Status: Acute (3) Severe sepsis Status: Acute (4) Troponin level elevated Status: Acute (5) ARF (acute renal failure) Status: Acute (6) Bilateral lower extremity edema Status: Acute (7) Pyelonephritis, acute Status: Acute (8) Severe dehydration Status: Acute (9) Aortic insufficiency Status: Chronic - Assessment and Plan (Free Text) Plan: CONT CARDIZEM AND BETA BLOCKERS. NEEDS ANTICOAG JAIL. PT SCHEDULED FOR TCU. PLEASE CONSULT IF PT NEEDS CARDIAC F/U IN TCU. 45 MIN TOTAL CARE TIME.
[2018-04-26 16:16] VITALS: BP 136/82; RESP 22; TEMP 97.4; O2SAT 98
--- NOTE | 2018-04-26 16:29 | CP.PCM.PN ---
Subjective - Date & Time of Evaluation Date of Evaluation: 04/26/18 Time of Evaluation: 16:29 - Subjective Subjective: ID note- Pt. seen and examined in ICU today. pt. awake and alert and clinically much improved. denies any fever or chills, denies any abd. pain. as per nurse pt. is being d/c to TCU today. Objective - Vital Signs/Intake and Output Vital Signs (last 24 hours): Temp Pulse Resp BP Pulse Ox 97.4 F L 73 22 136/82 98 04/26/18 16:00 04/26/18 16:00 04/26/18 16:00 04/26/18 16:00 04/26/18 16:00 Intake and Output: 04/26/18 04/26/18 06:59 18:59 Intake Total 100 640 Output Total 550 600 Balance -450 40 - Medications Medications: Current Medications Acetaminophen (Tylenol 325mg Tab) 650 mg PO Q6 PRN PRN Reason: Fever >100.4 F Last Admin: 04/21/18 14:03 Dose: 650 mg Acetaminophen (Tylenol 325mg Tab) 650 mg PO Q6 PRN PRN Reason: Pain, Mild (1-3) Last Admin: 04/25/18 22:58 Dose: 650 mg Acetaminophen (Tylenol 650 Mg Supp) 650 mg [place] ONCE PRN PRN Reason: Fever >100.4 F Last Admin: 04/19/18 15:35 Dose: 650 mg Alprazolam (Xanax) 0.5 mg PO Q6 PRN PRN Reason: Anxiety Last Admin: 04/26/18 04:00 Dose: 0.5 mg Apixaban (Eliquis) 5 mg PO Q12 [facility]; Protocol Last Admin: 04/26/18 08:40 Dose: 5 mg Aspirin (Ecotrin) 81 mg PO DAILY [facility] Last Admin: 04/26/18 08:39 Dose: 81 mg Atorvastatin Calcium (Lipitor) 40 mg PO DAILY [facility] Last Admin: 04/26/18 08:40 Dose: 40 mg Diltiazem HCl (Cardizem) 30 mg PO TID [facility] Last Admin: 04/26/18 12:13 Dose: 30 mg Docusate Sodium (Colace) 100 mg PO TID PRN PRN Reason: Constipation Duloxetine HCl (Cymbalta) 60 mg PO [facility] Last Admin: 04/25/18 21:04 Dose: 60 mg Glycerin (Glycerin Adult Suppository) 1 sup [place] ONCE PRN PRN Reason: constipation Meropenem 1 gm/ Sodium (Chloride) 100 mls @ 100 mls/hr IVPB Q8 [facility]; Protocol Last Admin: 04/26/18 08:41 Dose: 100 mls/hr Lactated Ringer's (Lactated Ringer's) 1,000 mls @ 60 mls/hr IV .[id number] [facility] Last Admin: 04/24/18 09:06 Dose: 60 mls/hr Linezolid (Zyvox 600mg/300ml D5w) 600 mg in 300 mls @ 300 mls/hr IVPB Q12 [facility]; Protocol Last Admin: 04/26/18 12:13 Dose: 300 mls/hr Magnesium Oxide (Mag-Ox) 400 mg PO BID [facility] Last Admin: 04/26/18 08:40 Dose: 400 mg Metoprolol Succinate (Toprol Xl) 50 mg PO Q12 [facility] Last Admin: 04/26/18 08:42 Dose: 50 mg Multivitamins/Minerals (Therapeutic-M Tab) 1 tab PO DAILY [facility] Last Admin: 04/26/18 08:42 Dose: 1 tab Ondansetron HCl (Zofran Inj) 4 mg IVP Q6 PRN PRN Reason: Nausea/Vomiting Last Admin: 04/23/18 14:00 Dose: 4 mg Pantoprazole Sodium (Protonix Ec Tab) 40 mg PO DAILY [facility] Last Admin: 04/26/18 08:42 Dose: 40 mg Potassium Phos/Sodium Phos (Neutra-Phos) 1 pkt PO QID [facility] Last Admin: 04/26/18 12:12 Dose: 1 pkt Simethicone (Mylicon Liq) 80 mg PO Q6 PRN PRN Reason: Flatulence Last Admin: 04/26/18 12:34 Dose: 80 ml Trazodone HCl (Desyrel) 50 mg PO HS [facility] Last Admin: 04/25/18 21:05 Dose: 50 mg - Labs Labs: - Additional Findings Additional findings: - Constitutional Appears: Comfortable Additional comments: awake and alert - Head Exam Head Exam: ATRAUMATIC - Eye Exam Eye Exam: EOMI - Respiratory Exam Additional comments: no wheezing good aeration b/l - Cardiovascular Exam Cardiovascular Exam: RRR, +S1, +S2 - GI/Abdominal Exam GI & Abdominal Exam: Normal Bowel Sounds, Soft Additional comments: NT, ND - Extremities Exam Extremities exam: Positive for: normal inspection - Neurological Exam Neurological exam: Alert Additional comments: AAO x 3 Laboratory Results - last 72 hr 04/23/18 04/24/18 04/24/18 15:58 09:50 09:50 WBC 12.7 H RBC 3.75 L Hgb 11.0 L Hct 33.7 L MCV 90.0 MCH 29.3 MCHC 32.6 L RDW 14.1 Plt Count 229 MPV 9.3 Neut % (Auto) 70.0 Lymph % (Auto) 13.5 L [place] % (Auto) 14.6 H Eos % (Auto) 1.7 Baso % (Auto) 0.2 Neut # (Auto) 8.9 H Lymph # (Auto) 1.7 [place] # (Auto) 1.8 H Eos # (Auto) 0.2 Baso # (Auto) 0.0 APTT Sodium 140 Potassium 3.3 L Chloride 100 Carbon Dioxide 30 Anion Gap 13 BUN 16 Creatinine 0.9 Est GFR ( Amer) > 60 Est GFR (Non-Af Amer) > 60 Random Glucose 146 H Calcium 8.2 L Magnesium 1.4 L Total Bilirubin AST ALT Alkaline Phosphatase Total Protein Albumin Globulin Albumin/Globulin Ratio C. difficile Ag & Toxin Negative 04/24/18 04/25/18 04/25/18 09:50 04:30 04:30 WBC 10.9 H RBC 3.32 L Hgb 9.9 L Hct 30.5 L MCV 91.9 MCH 29.9 MCHC 32.5 L RDW 14.0 Plt Count 230 MPV Neut % (Auto) Lymph % (Auto) [place] % (Auto) Eos % (Auto) Baso % (Auto) Neut # (Auto) Lymph # (Auto) [place] # (Auto) Eos # (Auto) Baso # (Auto) APTT 72.3 H Sodium 139 Potassium 3.7 Chloride 102 Carbon Dioxide 31 H Anion Gap 10 BUN 14 Creatinine 0.8 Est GFR ( Amer) > 60 Est GFR (Non-Af Amer) > 60 Random Glucose 98 Calcium 7.8 L Magnesium Total Bilirubin 0.6 AST 20 ALT 28 Alkaline Phosphatase 77 Total Protein 6.3 Albumin 2.8 L Globulin 3.5 Albumin/Globulin Ratio 0.8 L C. difficile Ag & Toxin 04/25/18 04/26/18 04/26/18 04:30 04:30 08:30 WBC 10.3 RBC 3.56 L Hgb 10.5 L Hct 32.7 L MCV 91.8 MCH 29.6 MCHC 32.3 L RDW 14.4 Plt Count 325 MPV Neut % (Auto) Lymph % (Auto) [place] % (Auto) Eos % (Auto) Baso % (Auto) Neut # (Auto) Lymph # (Auto) [place] # (Auto) Eos # (Auto) Baso # (Auto) APTT 94.5 H Sodium 139 Potassium 3.9 Chloride 102 Carbon Dioxide 33 H Anion Gap 8 L BUN 13 Creatinine 0.8 Est GFR ( Amer) > 60 Est GFR (Non-Af Amer) > 60 Random Glucose 111 H Calcium 8.2 L Magnesium 1.8 Total Bilirubin AST ALT Alkaline Phosphatase Total Protein Albumin Globulin Albumin/Globulin Ratio C. difficile Ag & Toxin Microbiology 04/20/18 18:50 Blood-Venous Blood Culture - Final NO GROWTH AFTER 5 DAYS 04/20/18 18:50 Blood-Venous Gram Stain - Final TEST NOT PERFORMED 04/20/18 18:30 Blood-Venous Blood Culture - Final NO GROWTH AFTER 5 DAYS 04/20/18 18:30 Blood-Venous Gram Stain - Final TEST NOT PERFORMED 04/22/18 16:00 Urine,Reagan Urine Culture - Final Vancomycin Res E.faecalis 04/18/18 23:04 Blood-Venous Blood Culture - Final Escherichia Coli 04/18/18 23:04 Blood-Venous Gram Stain - Final 04/18/18 22:04 Urine,Clean Catch Urine Culture - Final Escherichia Coli 04/19/18 08:10 Naris MRSA Culture (Admit) - Final MRSA DETECTED Assessment and Plan (1) ARF (acute renal failure) Status: Acute (2) Septic shock Status: Acute (3) Pyelonephritis, acute Status: Acute (4) Sepsis Status: Acute - Assessment and Plan (Free Text) Assessment: Assessment and plan Patient is a 77-year-old female with multiple medical conditions who was admitted with fever dysuria lower back pain and was found to have pyelonephritis hypotensive septic. clinically much improved. afebrile today. leukocytosis has resolved. Blood culture - e.coli pansensitive x 1 Urine culture preliminary gram- e.coli pansensitive Urinalysispositive leukocyte esterase TTE as per report- no endocarditis as per report. repeat blood cx- neg x 2 stool c.diff tox - negative urine cx from 04/22/2018- VRE !! no corroborating UA 1. Urosepsis- resolved 2. Acute on chronic renal insufficiency- improving Plan Advised to continue with IV meropenem for e.coli bacteremia and urosepsis. (dose based on renal function).day #7 needs total of 14-21 days of IV abx for the bacteremia. the urine cx from 04/22/2018 VRE w/o any UA is most likely a contaminant as pt. is clinically much improved on current antibiotic regimen. All labs and imaging and pertinent chart notes were reviewed in detail. Critical care time spent 30 minutes.
[2018-04-26 16:46] VITALS: PULSE 77
== END 2018-04-26 17:19 | DRG 871 ==
LOC: H.ER 20:07 → H.ERHOLD 04-19 00:21 → H.TEL 04-19 02:18 → H.ICU/CCU 04-19 16:00
PROVIDERS: ADMIT Internal Medicine; ATTEND Internal Medicine
PROC: 06HM33Z Insertion of Infusion Device into Right Femoral Vein, Percutaneous Approach (ICD-10-PCS; 2018-04-19)
PROC: 5A1945Z Respiratory Ventilation, 24-96 Consecutive Hours (ICD-10-PCS; principal; 2018-04-20)
PROC: 0BH17EZ Insertion of Endotracheal Airway into Trachea, Via Natural or Artificial Opening (ICD-10-PCS; 2018-04-20)
DX: A41.51 Sepsis due to Escherichia coli [E. coli] (principal); G93.41 Metabolic encephalopathy; R65.21 Severe sepsis with septic shock; J96.01 Acute respiratory failure with hypoxia; I48.92 Unspecified atrial flutter; N13.6 Pyonephrosis; N17.9 Acute kidney failure, unspecified; K86.1 Other chronic pancreatitis; Z88.0 Allergy status to penicillin; M79.7 Fibromyalgia; N32.81 Overactive bladder; Z68.34 Body mass index [BMI] 34.0-34.9, adult; Z86.718 Personal history of other venous thrombosis and embolism; Z79.82 Long term (current) use of aspirin; F41.8 Other specified anxiety disorders; K29.70 Gastritis, unspecified, without bleeding; K21.9 Gastro-esophageal reflux disease without esophagitis; M81.0 Age-related osteoporosis without current pathological fracture; R32 Unspecified urinary incontinence; K59.03 Drug induced constipation; T40.605A Adverse effect of unspecified narcotics, initial encounter; E66.01 Morbid (severe) obesity due to excess calories; I10 Essential (primary) hypertension; R73.03 Prediabetes; I35.1 Nonrheumatic aortic (valve) insufficiency; E86.0 Dehydration; M16.11 Unilateral primary osteoarthritis, right hip; I48.0 Paroxysmal atrial fibrillation; D63.8 Anemia in other chronic diseases classified elsewhere; E87.6 Hypokalemia; E83.42 Hypomagnesemia; J44.9 Chronic obstructive pulmonary disease, unspecified

== ENCOUNTER 2018-04-26 14:49 | Inpatient (IN) | payer OTHER, MEDICAID ==
[2018-04-26 17:47] VITALS: BMI 34.3
[2018-04-26] MEDS ORDERED: Patient's Own Med (Meropenem Iv 1 Gm In Ns [Merrem Iv 1 Gm Premix] 1 GM) IVPB SCH (18:15)
[2018-04-26] MEDS ORDERED: Meropenem 1 GM in Sodium Chloride 0.9% 100 ML IVPB SCH (19:00)
[2018-04-26] MEDS ORDERED: Patient's Own Med (Linezolid 600 Mg In D5w 300 Ml [Zyvox 600mg/300ml D5w] 600 MG) IV SCH (21:00)
[2018-04-26] MEDS ORDERED: Linezolid 600 mg in D5W 300 ml 600 MG/300 ML BAG IVPB SCH (21:00)
[2018-04-26] MEDS: Metoprolol Succinate 50 mg XL Tab PO SCH (21:02)
[2018-04-26] MEDS: Potassium & Sodium Phosphate PO SCH (21:04)
[2018-04-26] MEDS: Ergocalciferol 50,000 Intl Units Cap PO SCH (22:21)
[2018-04-27] MEDS: Meropenem 1 GM in Sodium Chloride 0.9% 100 ML IVPB SCH ×3 (04:12→21:34)
[2018-04-27] MEDS ORDERED: Linezolid 600 mg in D5W 300 ml 600 MG/300 ML BAG IVPB SCH (05:00)
--- NOTE | 2018-04-27 06:43 | CP.PCM.HP ---
<Emeterio Griffiths - Last Filed: 04/27/18 11:34> History of Present Illness - History of Present Illness History of Present Illness: 77 y/o female patient with PMH frequent UTI, urinary incontinence , HTN, depression with anxiety, chronic constipation ,renal stones admitted for sepsis secondary to UTI. She was started on Rocephin 2 g IV initially , cultures were sent and urology consulted FLOAT REMOVER was called for hypotension on 04/19, Patient transferred to ICU for sepsis with shock , started on IVF and Levophed, WBC trended up to 33 k with lactate 3.4. ID consulted and antibiotics changed to Meropenem IV, Intubated in ICU on 04/20 for impending respiratory failure. As pt was hypotensive, all meds that regulated BP were held including her metoprolol. With that, the pt went back into Afib w RVR and required Cardizem and digoxin to regain rate control. Pt was extubated on 04/22 and tolerated well. Pts white count normalized and renal function returned back to baseline full capacity with normal Cr and GFR. She was started on Eliquis for anticoagulation due to afib. She was then discharged to TCU to complete course of IV abx for pyelonephritis and physical therapy for reconditioning. PMD: Dr. 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 Last discharge on Feb for Urosepsis- UCx Enterococcus Fec, discharged on Nitrofurantoin . Prior Ucx E.Coli sensitive to Rocephin Surgical HX: S/P Percutaneous tube placement, Carotid Endarterectomy, Endoscopy, Cataract extraction left eye; Surgery to the shoulder, elbow and finger; Hand operation for Carpal Tunnel ; IVC Filter; Cholecystostomy Allergies: PCN (rash) FH: Significant for Heart disease SH: Ex Smoker; No alcohol; No illegal drug use; Live with SON (brandi) at night and Aide during the day. Uses walker for ambulation. Present on Admission - Present on Admission Any Indicators Present on Admission: No History of DVT/PE: No History of Uncontrolled Diabetes: No Urinary Catheter: No Decubitus Ulcer Present: No Past Patient History - Infectious Disease Hx of Infectious Diseases: None - Tetanus Immunizations Tetanus Immunization: Unknown - Past Medical History & Family History Past Medical History?: Yes - Past Social History Smoking Status: Never Smoked Alcohol: None Drugs: Denies - CARDIAC Hx Pacemaker: No - PULMONARY Hx Respiratory Disorders: Yes Hx Bronchitis: Yes Hx Chronic Obstructive Pulmonary Disease (COPD): Yes Hx Pneumonia: Yes - NEUROLOGICAL Hx Neurological Disorder: No - HEENT Hx HEENT Problems: No - RENAL Hx Chronic Kidney Disease: No - ENDOCRINE/METABOLIC Hx Endocrine Disorders: No - HEMATOLOGICAL/ONCOLOGICAL Hx AIDS: No Hx Cancer: No Hx Human Immunodeficiency Virus (HIV): No - INTEGUMENTARY Hx Dermatological Problems: No - MUSCULOSKELETAL/RHEUMATOLOGICAL Hx Musculoskeletal Disorders: Yes Hx Arthritis: Yes Hx Falls: No Hx Fractures: Yes Hx Osteoporosis: Yes - GASTROINTESTINAL Hx Gastrointestinal Disorders: Yes Hx Gastritis: Yes Hx Pancreatitis: Yes - GENITOURINARY/GYNECOLOGICAL Hx Genitourinary Disorders: Yes Hx Bladder Stone: Yes Hx Sexually Transmitted Disorders: No - PSYCHIATRIC Hx Psychophysiologic Disorder: Yes Hx Anxiety: Yes Hx Depression: Yes Hx Substance Use: No - SURGICAL HISTORY Hx Appendectomy: Yes Hx Carotid Endarterectomy: Yes Hx Cholecystectomy: Yes - ANESTHESIA Hx Anesthesia: Yes Hx Anesthesia Reactions: No Hx Malignant Hyperthermia: No Meds Allergies/Adverse Reactions: Allergies Allergy/AdvReac Type Severity Reaction Status Date / Time Penicillins Allergy RASH Verified 04/26/18 16:58 Physical Exam - Constitutional Appears: Non-toxic, No Acute Distress - Head Exam Head Exam: ATRAUMATIC - Eye Exam Eye Exam: EOMI, Normal appearance Pupil Exam: PERRL - ENT Exam ENT Exam: Mucous Membranes Moist - Neck Exam Neck exam: Positive for: Normal Inspection - Respiratory Exam Respiratory Exam: Clear to Auscultation Bilateral, NORMAL BREATHING PATTERN. absent: Rales, Rhonchi, Wheezes - Cardiovascular Exam Cardiovascular Exam: REGULAR RHYTHM, RRR, +S1, +S2. absent: Tachycardia, JVD, Systolic Murmur - GI/Abdominal Exam GI & Abdominal Exam: Normal Bowel Sounds, Soft. absent: Distended, Rebound, Rigid - Extremities Exam Extremities exam: Positive for: normal capillary refill, normal inspection, pedal pulses present. Negative for: calf tenderness, tenderness - Neurological Exam Neurological exam: Alert, CN II-XII Intact, Normal Gait - Skin Skin Exam: Dry, Intact, Normal Color Results - Vital Signs Recent Vital Signs: Last Vital Signs Temp 97.3 F L 04/26/18 21:24 Pulse 71 04/26/18 21:24 Resp 20 04/26/18 21:24 BP 112/64 04/26/18 21:24 Pulse Ox 99 04/26/18 21:24 Assessment & Plan - Assessment and Plan (Free Text) Assessment: 77 y/o female patient with PMH frequent UTI, urinary incontinence , HTN, depression with anxiety, chronic constipation ,renal stones admitted for sepsis secondary to UTI. She was started on Rocephin 2 g IV initially , cultures were sent and urology consulted FLOAT REMOVER was called for hypotension on 04/19, Patient transferred to ICU for sepsis with shock , started on IVF and Levophed, WBC trended up to 33 k with lactate 3.4. ID consulted and antibiotics changed to Meropenem IV, Intubated in ICU on 04/20 for impending respiratory failure. As pt was hypotensive, all meds that regulated BP were held including her metoprolol. With that, the pt went back into Afib w RVR and required Cardizem and digoxin to regain rate control. Pt was extubated on 04/22 and tolerated well. Pts white count normalized and renal function returned back to baseline full capacity with normal Cr and GFR. She was started on Eliquis for anticoagulation due to afib. She was then discharged to TCU to complete course of IV abx for pyelonephritis and physical therapy for reconditioning. E.Coli Septicemia with septic shock -afebrile -leukocytosis resolved -blood/urine cx: E.coli -Meropenem x 1 week (05/03) -c/w PT treatment and reconditioning VRE + Urine Culture -Found to have VRE in urine on recent cultures -currently on Meropenem 1gm Q8H x1 week (till 05/03) -f/u ID recommendations Pyelonephritis resolved Atrial Fibrillation w RVR: Acute Renal Injury -resolved Prophylaxis -Eliquis <Milad Ellington D - Last Filed: 04/27/18 13:09> Results - Vital Signs Recent Vital Signs: Last Vital Signs Temp 98.0 F 04/27/18 08:32 Pulse 80 04/27/18 09:19 Resp 20 04/27/18 08:32 BP 115/72 04/27/18 09:19 Pulse Ox 18 L 04/27/18 08:32 Attending/Attestation - Attestation I have personally seen and examined this patient.: Yes I have fully participated in the care of the patient.: Yes I have reviewed all pertinent clinical information: Yes Notes (Text): 04/27/18 13:04 Patient seen and examined with resident. Case discussed and agreed with assessment and plan of management. Patient is a 77 yo female with history of HTN, recurrent UTI and Depression admitted with Sepsis secondary to pyelonephritis. She was transferred to TCU for continuation of IV antibiotics.
[2018-04-27] MEDS: Magnesium Oxide 400 mg Tab UD PO SCH ×2 (09:18→18:03)
[2018-04-27] MEDS: Pantoprazole 40 mg EC Tab PO SCH (09:19)
[2018-04-27] MEDS: Multivitamin With Minerals Tab PO SCH (09:19)
[2018-04-27] MEDS: Potassium & Sodium Phosphate PO SCH ×4 (09:19→21:35)
[2018-04-27] MEDS: Metoprolol Succinate 50 mg XL Tab PO SCH ×2 (09:19→21:35)
--- NOTE | 2018-04-27 10:46 | CP.PCM.CON ---
History of Present Illness - History of Present Illness History of Present Illness: Infectious disease consultation note HPI Patient known to me from her previous admission in the ICU. Patient is a 77-year-old female with past medical history significant for hypertension, morbid obesity, anxiety and depression, and history of multiple UTIs in the past, along with nephrolithiasis, history of DVTs, who was initially admitted for complaints of lower abdominal and back pain and urinary urgency and pain with urination. Upon admission patient was found to have high fever of 102, lactate of 3.1, and leukocytosis of 35,000. In addition she was found to have positive urinalysis and abdominal CT which was consistent with pyelonephritis. Patient's urine and blood culture both grew E. coli . Patient was started on IV meropenem to treat both E. coli bacteremia and urosepsis. She was also intubated in ICU for respiratory distress. Patient clinically improved she was extubated a few days ago and also her urosepsis has responded very well to the IV meropenem with repeat negative blood cultures her leukocytosis has resolved and she is remained afebrile for the past 3 days. She is now transferred to TCU for physical therapy and to complete her IV antibiotic regimen. Review of Systems - Review of Systems Review of Systems: Review of systems Patient denies any headaches, denies any cough, denies any shortness of breath, denies any chest pain, denies any nausea vomiting, denies any abdominal pain, denies any diarrhea, denies any dysura. Past Patient History - Infectious Disease Hx of Infectious Diseases: None - Tetanus Immunizations Tetanus Immunization: Unknown - Past Medical History & Family History Past Medical History?: Yes - Past Social History Smoking Status: Never Smoked - CARDIAC Hx Pacemaker: No - PULMONARY Hx Respiratory Disorders: Yes Hx Bronchitis: Yes Hx Chronic Obstructive Pulmonary Disease (COPD): Yes Hx Pneumonia: Yes - NEUROLOGICAL Hx Neurological Disorder: No - HEENT Hx HEENT Problems: No - RENAL Hx Chronic Kidney Disease: No - ENDOCRINE/METABOLIC Hx Endocrine Disorders: No - HEMATOLOGICAL/ONCOLOGICAL Hx Blood Disorders: No - INTEGUMENTARY Hx Dermatological Problems: No - MUSCULOSKELETAL/RHEUMATOLOGICAL Hx Musculoskeletal Disorders: Yes Hx Arthritis: Yes Hx Falls: No Hx Fractures: Yes Hx Osteoporosis: Yes - GASTROINTESTINAL Hx Gastrointestinal Disorders: Yes Hx Gastritis: Yes Hx Pancreatitis: Yes - GENITOURINARY/GYNECOLOGICAL Hx Genitourinary Disorders: Yes Hx Bladder Stone: Yes Hx Sexually Transmitted Disorders: No - PSYCHIATRIC Hx Psychophysiologic Disorder: Yes Hx Anxiety: Yes Hx Depression: Yes Hx Substance Use: No - SURGICAL HISTORY Hx Appendectomy: Yes Hx Carotid Endarterectomy: Yes Hx Cholecystectomy: Yes - ANESTHESIA Hx Anesthesia: Yes Hx Anesthesia Reactions: No Hx Malignant Hyperthermia: No Meds Allergies/Adverse Reactions: Allergies Allergy/AdvReac Type Severity Reaction Status Date / Time Penicillins Allergy RASH Verified 04/26/18 16:58 - Medications Medications: Current Medications Acetaminophen (Tylenol 325mg Tab) 650 mg PO Q6 PRN PRN Reason: Fever >100.4 F Acetaminophen (Tylenol 325mg Tab) 650 mg PO Q6 PRN PRN Reason: Pain, Mild (1-3) Acetaminophen (Tylenol 325mg Tab) 650 mg PO Q4 PRN PRN Reason: Pain, moderate (4-7) Last Admin: 04/27/18 04:57 Dose: 650 mg Alprazolam (Xanax) 0.5 mg PO Q6 PRN PRN Reason: Anxiety Last Admin: 04/27/18 04:35 Dose: 0.5 mg Apixaban (Eliquis) 5 mg PO Q12 [facility]; Protocol Last Admin: 04/27/18 09:18 Dose: 5 mg Ascorbic Acid (Vitamin C 500 Mg Tab) 500 mg PO DAILY [facility] Last Admin: 04/27/18 09:19 Dose: 500 mg Aspirin (Ecotrin) 81 mg PO DAILY [facility] Last Admin: 04/27/18 09:18 Dose: 81 mg Atorvastatin Calcium (Lipitor) 40 mg PO [facility] Diltiazem HCl (Cardizem) 30 mg PO TID [facility] Last Admin: 04/27/18 09:17 Dose: 30 mg Docusate Sodium (Colace) 100 mg PO TID PRN PRN Reason: Constipation Duloxetine HCl (Cymbalta) 60 mg PO HS [facility] Last Admin: 04/26/18 21:03 Dose: 60 mg Ergocalciferol (Drisdol 50,000 Intl Units Cap) 1 cap PO Q7D [facility] Last Admin: 04/26/18 22:21 Dose: 1 cap Gabapentin (Neurontin) 300 mg PO DAILY [facility] Last Admin: 04/27/18 09:19 Dose: 300 mg Glycerin (Glycerin Adult Suppository) 1 sup [place] ONCE PRN PRN Reason: constipation Home Med (Lubiprostone [Amitiza]) 24 mcg PO DAILY [facility] Meropenem 1 gm/ Sodium (Chloride) 100 mls @ 100 mls/hr IVPB Q8@0500,1300,2100 [facility] Last Admin: 04/27/18 04:12 Dose: 100 mls/hr Linezolid (Zyvox 600mg/300ml D5w) 600 mg in 300 mls @ 300 mls/hr IVPB Q12@0500,1700 [facility] Last Admin: 04/27/18 05:03 Dose: 300 mls/hr Magnesium Oxide (Mag-Ox) 400 mg PO BID [facility] Last Admin: 04/27/18 09:18 Dose: 400 mg Metoprolol Succinate (Toprol Xl) 50 mg PO Q12 [facility] Last Admin: 04/27/18 09:19 Dose: 50 mg Multivitamins/Minerals (Therapeutic-M Tab) 1 tab PO DAILY [facility] Last Admin: 04/27/18 09:19 Dose: 1 tab Oxybutynin Chloride (Ditropan Tab) 5 mg PO TID [facility] Last Admin: 04/27/18 09:18 Dose: 5 mg Pantoprazole Sodium (Protonix Ec Tab) 40 mg PO DAILY [facility] Last Admin: 04/27/18 09:19 Dose: 40 mg Potassium Phos/Sodium Phos (Neutra-Phos) 1 pkt PO QID [facility] Last Admin: 04/27/18 09:19 Dose: 1 pkt Trazodone HCl (Desyrel) 50 mg PO HS [facility] Last Admin: 04/26/18 21:01 Dose: 50 mg Physical Exam - Constitutional Appears: No Acute Distress - Head Exam Head Exam: ATRAUMATIC - Eye Exam Eye Exam: EOMI, PERRL - ENT Exam ENT Exam: Normal Oropharynx - Neck Exam Neck exam: Positive for: Full Rom - Respiratory Exam Respiratory Exam: Clear to Auscultation Bilateral, NORMAL BREATHING PATTERN - Cardiovascular Exam Cardiovascular Exam: RRR, +S1, +S2 - GI/Abdominal Exam GI & Abdominal Exam: Normal Bowel Sounds, Soft Additional comments: NT, ND - Extremities Exam Extremities exam: Positive for: normal inspection - Neurological Exam Neurological exam: Alert, Oriented x3 Results - Vital Signs Recent Vital Signs: Last Vital Signs Temp 98.0 F 04/27/18 08:32 Pulse 80 04/27/18 09:19 Resp 20 04/27/18 08:32 BP 115/72 04/27/18 09:19 Pulse Ox 18 L 04/27/18 08:32 - Labs Labs: Microbiology 04/22/18 16:00 Urine,Reagan Urine Culture - Final Vancomycin Res E.faecalis 04/20/18 18:50 Blood-Venous Blood Culture - Final 04/20/18 18:50 Blood-Venous Gram Stain - Final NO GROWTH AFTER 5 DAYS TEST NOT PERFORMED 04/20/18 18:30 Blood-Venous Blood Culture - Final 04/20/18 18:30 Blood-Venous Gram Stain - Final NO GROWTH AFTER 5 DAYS TEST NOT PERFORMED 04/19/18 08:10 Naris MRSA Culture (Admit) - Final MRSA DETECTED 04/18/18 23:04 Blood-Venous Blood Culture - Final 04/18/18 23:04 Blood-Venous Gram Stain - Final Escherichia Coli 04/18/18 22:04 Urine,Clean Catch Urine Culture - Final Escherichia Coli Assessment & Plan (1) UTI (urinary tract infection) Status: Acute - Assessment and Plan (Free Text) Assessment: Assessment and plan Patient is a 77-year-old female with multiple medical conditions who was admitted with fever dysuria lower back pain and was found to have pyelonephritis hypotensive and was septic and was found to have e.coli urosepsis and was treated for this and is clinically much improved and transfererd to TCU for PT and to complete her antibiotic regimen. clinically much improved. afebrile past 3 days. leukocytosis has resolved. Blood culture - e.coli pansensitive x 1 on admission Urine culture on admission- e.coli pansensitive Urinalysis on admissionpositive leukocyte esterase TTE as per report- no endocarditis as per report. repeat blood cx- neg x 2 stool c.diff tox - negative urine cx from 04/22/2018- VRE !! ( most Likely contaminant) no corroborating UA Plan Advised to continue with IV meropenem for e.coli bacteremia and urosepsis. (dose based on renal function).day #8 needs total of 14-21 days of IV abx for the bacteremia. the urine cx from 04/22/2018 VRE w/o any UA is most likely a contaminant as pt. is clinically much improved on current antibiotic regimen. no need to check any more urine cultures. check urinalysis only with straight cath.
[2018-04-28] MEDS: Meropenem 1 GM in Sodium Chloride 0.9% 100 ML IVPB SCH ×3 (05:21→20:57)
[2018-04-28] MEDS: Pantoprazole 40 mg EC Tab PO SCH (08:29)
[2018-04-28] MEDS: Potassium & Sodium Phosphate PO SCH ×5 (08:29→21:04)
[2018-04-28] MEDS: Metoprolol Succinate 50 mg XL Tab PO SCH ×2 (08:30→21:04)
[2018-04-28] MEDS: Magnesium Oxide 400 mg Tab UD PO SCH ×2 (08:30→16:38)
[2018-04-28] MEDS: Multivitamin With Minerals Tab PO SCH (08:31)
[2018-04-28 23:22] LABS: SQUAMOUS EPITHIAL 2 /hpf (0-5); URINE BACTERIA OCC (<OCC); URINE BILIRUBIN NEGATIVE (NEGATIVE); URINE BLOOD LARGE (NEGATIVE); URINE CLARITY CLOUDY (Clear); URINE COLOR YELLOW (YELLOW); URINE GLUCOSE (UA) 50 mg/dL (NEGATIVE); URINE LEUKOCYTE ESTERASE SMALL Leu/uL (Negative); URINE PROTEIN 30 mg/dL (NEGATIVE); URINE UROBILINOGEN 0.2-1.0 mg/dL (0.2-1.0)
[2018-04-29] MEDS: Meropenem 1 GM in Sodium Chloride 0.9% 100 ML IVPB SCH ×3 (05:01→20:28)
[2018-04-29] MEDS: Pantoprazole 40 mg EC Tab PO SCH (09:20)
[2018-04-29] MEDS: Potassium & Sodium Phosphate PO SCH ×4 (09:20→22:05)
[2018-04-29] MEDS: Magnesium Oxide 400 mg Tab UD PO SCH ×2 (09:21→17:19)
[2018-04-29] MEDS: Multivitamin With Minerals Tab PO SCH (09:22)
[2018-04-29] MEDS: Metoprolol Succinate 50 mg XL Tab PO SCH ×2 (09:22→22:04)
--- NOTE | 2018-04-29 15:59 | CP.PCM.PN ---
Subjective - Date & Time of Evaluation Date of Evaluation: 04/29/18 Time of Evaluation: 14:15 - Subjective Subjective: Patient seen and examined. denied any complaint Objective - Vital Signs/Intake and Output Vital Signs (last 24 hours): Temp Pulse Resp BP Pulse Ox 97.8 F 79 20 135/80 97 04/29/18 08:22 04/29/18 08:22 04/29/18 08:22 04/29/18 08:22 04/29/18 08:22 - Medications Medications: Current Medications Acetaminophen (Tylenol 325mg Tab) 650 mg PO Q6 PRN PRN Reason: Fever >100.4 F Acetaminophen (Tylenol 325mg Tab) 650 mg PO Q6 PRN PRN Reason: Pain, Mild (1-3) Acetaminophen (Tylenol 325mg Tab) 650 mg PO Q4 PRN PRN Reason: Pain, moderate (4-7) Last Admin: 04/27/18 04:57 Dose: 650 mg Alprazolam (Xanax) 0.5 mg PO Q6 PRN PRN Reason: Anxiety Last Admin: 04/29/18 14:36 Dose: 0.5 mg Apixaban (Eliquis) 5 mg PO Q12 [facility]; Protocol Last Admin: 04/29/18 09:21 Dose: 5 mg Ascorbic Acid (Vitamin C 500 Mg Tab) 500 mg PO DAILY [facility] Last Admin: 04/29/18 09:22 Dose: 500 mg Aspirin (Ecotrin) 81 mg PO DAILY [facility] Last Admin: 04/29/18 09:20 Dose: 81 mg Atorvastatin Calcium (Lipitor) 40 mg PO HS [facility] Last Admin: 04/28/18 21:03 Dose: 40 mg Diltiazem HCl (Cardizem) 30 mg PO TID [facility] Last Admin: 04/29/18 12:35 Dose: 30 mg Docusate Sodium (Colace) 100 mg PO TID PRN PRN Reason: Constipation Duloxetine HCl (Cymbalta) 60 mg PO HS [facility] Last Admin: 04/28/18 21:04 Dose: 60 mg Ergocalciferol (Drisdol 50,000 Intl Units Cap) 1 cap PO Q7D [facility] Last Admin: 04/26/18 22:21 Dose: 1 cap Gabapentin (Neurontin) 300 mg PO DAILY [facility] Last Admin: 04/29/18 09:22 Dose: 300 mg Glycerin (Glycerin Adult Suppository) 1 sup IN ONCE PRN PRN Reason: constipation Meropenem 1 gm/ Sodium (Chloride) 100 mls @ 100 mls/hr IVPB Q8@0500,1300,2100 [facility] Last Admin: 04/29/18 13:08 Dose: 100 mls/hr Magnesium Oxide (Mag-Ox) 400 mg PO BID [facility] Last Admin: 04/29/18 09:21 Dose: 400 mg Metoprolol Succinate (Toprol Xl) 50 mg PO Q12 [facility] Last Admin: 04/29/18 09:22 Dose: 50 mg Multivitamins/Minerals (Therapeutic-M Tab) 1 tab PO DAILY [facility] Last Admin: 04/29/18 09:22 Dose: 1 tab Oxybutynin Chloride (Ditropan Tab) 5 mg PO TID [facility] Last Admin: 04/29/18 12:34 Dose: 5 mg Pantoprazole Sodium (Protonix Ec Tab) 40 mg PO DAILY [facility] Last Admin: 04/29/18 09:20 Dose: 40 mg Potassium Phos/Sodium Phos (Neutra-Phos) 1 pkt PO QID [facility] Last Admin: 04/29/18 12:35 Dose: Not Given Trazodone HCl (Desyrel) 50 mg PO HS [facility] Last Admin: 04/28/18 21:05 Dose: 50 mg - Constitutional Appears: No Acute Distress - Head Exam Head Exam: ATRAUMATIC - Eye Exam Eye Exam: absent: Scleral icterus - ENT Exam ENT Exam: Mucous Membranes Moist - Neck Exam Neck Exam: absent: Meningismus - Respiratory Exam Respiratory Exam: absent: Rales, Rhonchi, Wheezes, Respiratory Distress - Cardiovascular Exam Cardiovascular Exam: REGULAR RHYTHM, +S1, +S2 - GI/Abdominal Exam GI & Abdominal Exam: Soft. absent: Tenderness - Rectal Exam Rectal Exam: Deferred - Neurological Exam Neurological Exam: Alert, Oriented x3 - Psychiatric Exam Psychiatric exam: Normal Affect - Skin Skin Exam: Dry, Intact Assessment and Plan - Assessment and Plan (Free Text) Assessment: 77 yo female patient with history of frequent UTI, HTN and Depression admitted because of sepsis secondary to E coli bacteremia. Patient was initially started on Rocephin then switched to Meropenem when blood and urine culture became positive for E coli. She was transferred to TCU for continuation of IV antibiotics adn physical therapy. 1. E.Coli Bacteremia afebrile and asymptomatic continue Meropenem for a total of 14 - 21 days as per ID 2. Atrial Fibrillation rate controlled continue Metoprolol and eliquis
[2018-04-30] MEDS: Meropenem 1 GM in Sodium Chloride 0.9% 100 ML IVPB SCH ×3 (05:53→20:48)
[2018-04-30] MEDS: Metoprolol Succinate 50 mg XL Tab PO SCH ×2 (08:50→21:56)
[2018-04-30] MEDS: Multivitamin With Minerals Tab PO SCH (08:51)
[2018-04-30] MEDS: Pantoprazole 40 mg EC Tab PO SCH (08:52)
[2018-04-30] MEDS: Potassium & Sodium Phosphate PO SCH ×4 (08:52→22:05)
[2018-04-30] MEDS: Magnesium Oxide 400 mg Tab UD PO SCH ×2 (08:53→16:22)
[2018-04-30] MEDS: Simethicone 80 mg Chewtab PO PRN (20:45)
[2018-05-01] MEDS: Meropenem 1 GM in Sodium Chloride 0.9% 100 ML IVPB SCH ×3 (06:44→20:37)
[2018-05-01] MEDS: Metoprolol Succinate 50 mg XL Tab PO SCH ×2 (10:06→21:30)
[2018-05-01] MEDS: Multivitamin With Minerals Tab PO SCH (10:06)
[2018-05-01] MEDS: Magnesium Oxide 400 mg Tab UD PO SCH ×2 (10:07→16:29)
[2018-05-01] MEDS: Pantoprazole 40 mg EC Tab PO SCH (10:08)
[2018-05-01] MEDS: Potassium & Sodium Phosphate PO SCH ×4 (10:08→21:30)
[2018-05-01] MEDS: guaiFENesin 200 mg/10 ml Syrup UD PO PRN ×2 (16:29→21:38)
[2018-05-01] MEDS: Simethicone 80 mg Chewtab PO PRN (21:38)
[2018-05-02] MEDS: Meropenem 1 GM in Sodium Chloride 0.9% 100 ML IVPB SCH ×3 (06:16→21:17)
[2018-05-02] MEDS: Magnesium Oxide 400 mg Tab UD PO SCH ×2 (10:14→18:05)
[2018-05-02] MEDS: Potassium & Sodium Phosphate PO SCH ×4 (10:15→21:25)
[2018-05-02] MEDS: Pantoprazole 40 mg EC Tab PO SCH (10:15)
[2018-05-02] MEDS: Metoprolol Succinate 50 mg XL Tab PO SCH ×2 (10:15→21:23)
[2018-05-02] MEDS: Multivitamin With Minerals Tab PO SCH (10:15)
[2018-05-02] MEDS: Simethicone 80 mg Chewtab PO PRN (11:24)
[2018-05-02] MEDS: guaiFENesin 200 mg/10 ml Syrup UD PO PRN (22:59)
[2018-05-03] MEDS: Meropenem 1 GM in Sodium Chloride 0.9% 100 ML IVPB SCH ×3 (04:35→22:24)
[2018-05-03] MEDS: guaiFENesin 200 mg/10 ml Syrup UD PO PRN ×2 (09:10→23:02)
[2018-05-03] MEDS: Magnesium Oxide 400 mg Tab UD PO SCH ×2 (09:11→16:35)
[2018-05-03] MEDS: Pantoprazole 40 mg EC Tab PO SCH (09:11)
[2018-05-03] MEDS: Metoprolol Succinate 50 mg XL Tab PO SCH ×2 (09:12→22:23)
[2018-05-03] MEDS: Multivitamin With Minerals Tab PO SCH (09:12)
[2018-05-03] MEDS: Potassium & Sodium Phosphate PO SCH ×4 (09:13→22:20)
[2018-05-03] MEDS: Ergocalciferol 50,000 Intl Units Cap PO SCH (18:01)
[2018-05-03] MEDS: Simethicone 80 mg Chewtab PO PRN (22:30)
[2018-05-04] MEDS: Meropenem 1 GM in Sodium Chloride 0.9% 100 ML IVPB SCH ×3 (05:18→21:48)
[2018-05-04] MEDS: Metoprolol Succinate 50 mg XL Tab PO SCH ×2 (08:54→21:49)
[2018-05-04] MEDS: guaiFENesin 200 mg/10 ml Syrup UD PO PRN ×2 (08:54→21:48)
[2018-05-04] MEDS: Magnesium Oxide 400 mg Tab UD PO SCH ×2 (08:55→17:29)
[2018-05-04] MEDS: Simethicone 80 mg Chewtab PO PRN ×2 (08:56→21:48)
[2018-05-04] MEDS: Pantoprazole 40 mg EC Tab PO SCH (08:57)
[2018-05-04] MEDS: Potassium & Sodium Phosphate PO SCH ×4 (08:57→21:48)
[2018-05-04] MEDS: Multivitamin With Minerals Tab PO SCH (08:58)
--- NOTE | 2018-05-04 17:40 | CP.PCM.PN ---
Subjective - Date & Time of Evaluation Date of Evaluation: 05/04/18 Time of Evaluation: 16:45 - Subjective Subjective: Patient seen and examined. Complained of diarrhea and gas in abdomen. Objective - Vital Signs/Intake and Output Vital Signs (last 24 hours): Temp Pulse Resp BP Pulse Ox 97.6 F 85 20 112/75 95 05/04/18 16:30 05/04/18 17:28 05/04/18 16:30 05/04/18 17:28 05/04/18 16:30 - Medications Medications: Current Medications Acetaminophen (Tylenol 325mg Tab) 650 mg PO Q6 PRN PRN Reason: Fever >100.4 F Acetaminophen (Tylenol 325mg Tab) 650 mg PO Q6 PRN PRN Reason: Pain, Mild (1-3) Acetaminophen (Tylenol 325mg Tab) 650 mg PO Q4 PRN PRN Reason: Pain, moderate (4-7) Last Admin: 04/27/18 04:57 Dose: 650 mg Alprazolam (Xanax) 0.5 mg PO Q6 PRN PRN Reason: Anxiety Last Admin: 05/04/18 08:54 Dose: 0.5 mg Apixaban (Eliquis) 5 mg PO Q12 [facility]; Protocol Last Admin: 05/04/18 08:54 Dose: 5 mg Ascorbic Acid (Vitamin C 500 Mg Tab) 500 mg PO DAILY [facility] Last Admin: 05/04/18 08:58 Dose: 500 mg Aspirin (Ecotrin) 81 mg PO DAILY [facility] Last Admin: 05/04/18 08:55 Dose: 81 mg Atorvastatin Calcium (Lipitor) 40 mg PO [facility] Last Admin: 05/03/18 22:22 Dose: 40 mg Diltiazem HCl (Cardizem) 30 mg PO TID [facility] Last Admin: 05/04/18 17:28 Dose: 30 mg Docusate Sodium (Colace) 100 mg PO TID PRN PRN Reason: Constipation Duloxetine HCl (Cymbalta) 60 mg PO [facility] Last Admin: 05/03/18 22:22 Dose: 60 mg Ergocalciferol (Drisdol 50,000 Intl Units Cap) 1 cap PO Q7D [facility] Last Admin: 05/03/18 18:01 Dose: 1 cap Gabapentin (Neurontin) 300 mg PO DAILY [facility] Last Admin: 05/04/18 08:56 Dose: 300 mg Glycerin (Glycerin Adult Suppository) 1 sup [place] ONCE PRN PRN Reason: constipation Guaifenesin (Robitussin) 200 mg PO Q6 PRN PRN Reason: Cough Last Admin: 05/04/18 08:54 Dose: 200 mg Meropenem 1 gm/ Sodium (Chloride) 100 mls @ 100 mls/hr IVPB Q8@0500,1300,2100 [facility] Last Admin: 05/04/18 12:27 Dose: 100 mls/hr Lactobacillus Acidophilus (Bacid Acidophilus) 1 cap PO BID [facility] Loratadine (Claritin) 10 mg PO DAILY [facility] Last Admin: 05/04/18 08:55 Dose: 10 mg Magnesium Oxide (Mag-Ox) 400 mg PO BID [facility] Last Admin: 05/04/18 17:29 Dose: 400 mg Metoprolol Succinate (Toprol Xl) 50 mg PO Q12 [facility] Last Admin: 05/04/18 08:54 Dose: 50 mg Multivitamins/Minerals (Therapeutic-M Tab) 1 tab PO DAILY [facility] Last Admin: 05/04/18 08:58 Dose: 1 tab Oxybutynin Chloride (Ditropan Tab) 5 mg PO TID [facility] Last Admin: 05/04/18 17:28 Dose: 5 mg Pantoprazole Sodium (Protonix Ec Tab) 40 mg PO DAILY [facility] Last Admin: 05/04/18 08:57 Dose: 40 mg Potassium Phos/Sodium Phos (Neutra-Phos) 1 pkt PO QID [facility] Last Admin: 05/04/18 17:29 Dose: Not Given Simethicone (Mylicon Chew Tab) 80 mg PO Q8 PRN PRN Reason: Flatulence Last Admin: 05/04/18 08:56 Dose: 80 mg Trazodone HCl (Desyrel) 50 mg PO HS [facility] Last Admin: 05/03/18 22:23 Dose: 50 mg - Constitutional Appears: No Acute Distress - Head Exam Head Exam: ATRAUMATIC - Eye Exam Eye Exam: absent: Scleral icterus - ENT Exam ENT Exam: Mucous Membranes Moist - Neck Exam Neck Exam: absent: Meningismus - Respiratory Exam Respiratory Exam: absent: Rales, Rhonchi, Wheezes, Respiratory Distress - Cardiovascular Exam Cardiovascular Exam: REGULAR RHYTHM, +S1, +S2 - GI/Abdominal Exam GI & Abdominal Exam: Soft. absent: Tenderness - Rectal Exam Rectal Exam: Deferred - Neurological Exam Neurological Exam: Alert, Oriented x3 - Psychiatric Exam Psychiatric exam: Normal Affect - Skin Skin Exam: Dry, Intact Assessment and Plan - Assessment and Plan (Free Text) Assessment: 77 yo female patient with history of frequent UTI, HTN and Depression admitted because of sepsis secondary to E coli bacteremia. Patient was initially started on Rocephin then switched to Meropenem when blood and urine culture became positive for E coli. She was transferred to TCU for continuation of IV antibiotics adn physical therapy. 1. E.Coli Bacteremia afebrile and asymptomatic continue Meropenem for a total of 14 - 21 days as per ID today is day # 15 2. Atrial Fibrillation rate controlled continue Metoprolol and Eliquis 3. Diarrhea stool for C dif Bacid PO BID
[2018-05-04] MEDS: Lactobacillus Acidophilus 500 MU Cap PO SCH (21:47)
[2018-05-05] MEDS: Meropenem 1 GM in Sodium Chloride 0.9% 100 ML IVPB SCH ×3 (05:03→22:11)
[2018-05-05 06:18] LABS: HEMOGLOBIN 10.2 g/dL (12.0-16.0); MEAN CORPUSCULAR HEMOGLOBIN 29.9 pg (27.0-31.0); MEAN CORPUSCULAR HGB CONC 32.5 g/dL (33.0-37.0); RBC 3.42 Mil/uL (3.80-5.20); RED CELL DISTRIBUTION WIDTH 14.5 % (11.5-14.5)
[2018-05-05 06:36] LABS: BLOOD UREA NITROGEN 26 mg/dl (7-17); CALCIUM 8.9 mg/dL (8.4-10.2); GFR NON-AFRICAN AMERICAN > 60
[2018-05-05] MEDS: guaiFENesin 200 mg/10 ml Syrup UD PO PRN ×2 (07:15→16:52)
[2018-05-05] MEDS: Lactobacillus Acidophilus 500 MU Cap PO SCH ×2 (09:22→16:48)
[2018-05-05] MEDS: Metoprolol Succinate 50 mg XL Tab PO SCH ×2 (09:23→22:14)
[2018-05-05] MEDS: Potassium & Sodium Phosphate PO SCH ×3 (09:24→22:23)
[2018-05-05] MEDS: Pantoprazole 40 mg EC Tab PO SCH (09:24)
[2018-05-05] MEDS: Multivitamin With Minerals Tab PO SCH (09:26)
[2018-05-06] MEDS: Meropenem 1 GM in Sodium Chloride 0.9% 100 ML IVPB SCH ×3 (04:53→21:47)
[2018-05-06] MEDS: Lactobacillus Acidophilus 500 MU Cap PO SCH ×2 (08:32→16:27)
[2018-05-06] MEDS: Metoprolol Succinate 50 mg XL Tab PO SCH ×2 (08:33→21:48)
[2018-05-06] MEDS: Simethicone 80 mg Chewtab PO PRN ×2 (08:33→19:52)
[2018-05-06] MEDS: Multivitamin With Minerals Tab PO SCH (08:33)
[2018-05-06] MEDS: Pantoprazole 40 mg EC Tab PO SCH (08:34)
[2018-05-06] MEDS: Potassium & Sodium Phosphate PO SCH ×4 (08:34→21:48)
--- NOTE | 2018-05-06 11:47 | CP.PCM.PN ---
Subjective - Date & Time of Evaluation Date of Evaluation: 05/06/18 Time of Evaluation: 11:46 - Subjective Subjective: doin gwell no complaints hd stable nad no cp sob calf tenderness Objective - Vital Signs/Intake and Output Vital Signs (last 24 hours): Temp Pulse Resp BP Pulse Ox 97.6 F 98 H 20 125/77 99 05/06/18 08:26 05/06/18 08:35 05/06/18 08:26 05/06/18 08:35 05/06/18 08:26 GEN: WDWN, ALERT, COOPERATIVE HEENT: NCAT, PERRL, EOMI HEART: +S1+S2, RRR NO MRG LUNG: CTAB, NO WRR ABD: SOFT BSX4 NT ND NO HSM NO MASS EXT: WARM, WELL PERFUSED NEURO: AWAKE, ALERT, REFLEXES NORMAL SKIN: WARM DRY PSYCH: NORMAL MOOD NORMAL AFFECT - Medications Medications: Current Medications Acetaminophen (Tylenol 325mg Tab) 650 mg PO Q6 PRN PRN Reason: Fever >100.4 F Acetaminophen (Tylenol 325mg Tab) 650 mg PO Q6 PRN PRN Reason: Pain, Mild (1-3) Acetaminophen (Tylenol 325mg Tab) 650 mg PO Q4 PRN PRN Reason: Pain, moderate (4-7) Last Admin: 04/27/18 04:57 Dose: 650 mg Alprazolam (Xanax) 0.5 mg PO Q6 PRN PRN Reason: Anxiety Last Admin: 05/06/18 08:30 Dose: 0.5 mg Apixaban (Eliquis) 5 mg PO Q12 [facility]; Protocol Last Admin: 05/06/18 08:41 Dose: 5 mg Ascorbic Acid (Vitamin C 500 Mg Tab) 500 mg PO DAILY [facility] Last Admin: 05/06/18 08:34 Dose: 500 mg Aspirin (Ecotrin) 81 mg PO DAILY [facility] Last Admin: 05/06/18 08:35 Dose: 81 mg Atorvastatin Calcium (Lipitor) 40 mg PO HS [facility] Last Admin: 05/05/18 22:23 Dose: 40 mg Diltiazem HCl (Cardizem) 30 mg PO TID [facility] Last Admin: 05/06/18 08:35 Dose: 30 mg Duloxetine HCl (Cymbalta) 60 mg PO [facility] Last Admin: 05/05/18 22:22 Dose: 60 mg Ergocalciferol (Drisdol 50,000 Intl Units Cap) 1 cap PO Q7D [facility] Last Admin: 05/03/18 18:01 Dose: 1 cap Gabapentin (Neurontin) 300 mg PO DAILY [facility] Last Admin: 05/06/18 08:33 Dose: 300 mg Glycerin (Glycerin Adult Suppository) 1 sup [place] ONCE PRN PRN Reason: constipation Guaifenesin (Robitussin) 200 mg PO Q6 PRN PRN Reason: Cough Last Admin: 05/05/18 16:52 Dose: 200 mg Meropenem 1 gm/ Sodium (Chloride) 100 mls @ 100 mls/hr IVPB Q8@0500,1300,2100 [facility] Last Admin: 05/06/18 04:53 Dose: 100 mls/hr Lactobacillus Acidophilus (Bacid Acidophilus) 1 cap PO BID [facility] Last Admin: 05/06/18 08:32 Dose: 1 cap Loratadine (Claritin) 10 mg PO DAILY [facility] Last Admin: 05/06/18 08:33 Dose: 10 mg Metoprolol Succinate (Toprol Xl) 50 mg PO Q12 [facility] Last Admin: 05/06/18 08:33 Dose: 50 mg Multivitamins/Minerals (Therapeutic-M Tab) 1 tab PO DAILY [facility] Last Admin: 05/06/18 08:33 Dose: 1 tab Oxybutynin Chloride (Ditropan Tab) 5 mg PO TID [facility] Last Admin: 05/06/18 08:34 Dose: 5 mg Pantoprazole Sodium (Protonix Ec Tab) 40 mg PO DAILY [facility] Last Admin: 05/06/18 08:34 Dose: 40 mg Potassium Phos/Sodium Phos (Neutra-Phos) 1 pkt PO QID [facility] Last Admin: 05/06/18 08:34 Dose: Not Given Simethicone (Mylicon Chew Tab) 80 mg PO Q8 PRN PRN Reason: Flatulence Last Admin: 05/06/18 08:33 Dose: 80 mg Trazodone HCl (Desyrel) 50 mg PO HS [facility] Last Admin: 05/05/18 22:22 Dose: 50 mg - Labs Labs: 05/05/18 05:45 05/05/18 05:45 Assessment and Plan - Assessment and Plan (Free Text) Plan: 77 yo female patient with history of frequent UTI, HTN and Depression admitted because of sepsis secondary to E coli bacteremia. Patient was initially started on Rocephin then switched to Meropenem when blood and urine culture became positive for E coli. She was transferred to TCU for continuation of IV antibiotics adn physical therapy. 1. E.Coli Bacteremia afebrile and asymptomatic continue Meropenem for a total of 14 - 21 days as per ID 2. Atrial Fibrillation rate controlled continue Metoprolol and Eliquis 3. Diarrhea stool for C dif Bacid PO BID
[2018-05-06] MEDS: guaiFENesin 200 mg/10 ml Syrup UD PO PRN (19:52)
[2018-05-07] MEDS: Meropenem 1 GM in Sodium Chloride 0.9% 100 ML IVPB SCH ×3 (04:54→21:31)
[2018-05-07] MEDS: Lactobacillus Acidophilus 500 MU Cap PO SCH ×2 (10:28→19:15)
[2018-05-07] MEDS: Potassium & Sodium Phosphate PO SCH ×4 (10:30→21:34)
[2018-05-07] MEDS: Multivitamin With Minerals Tab PO SCH (10:31)
[2018-05-07] MEDS: Pantoprazole 40 mg EC Tab PO SCH (10:31)
[2018-05-07] MEDS: Metoprolol Succinate 50 mg XL Tab PO SCH ×2 (10:31→21:31)
[2018-05-07 17:48] VITALS: RESP 20
[2018-05-08] MEDS: Meropenem 1 GM in Sodium Chloride 0.9% 100 ML IVPB SCH ×3 (05:15→21:31)
[2018-05-08] MEDS: guaiFENesin 200 mg/10 ml Syrup UD PO PRN ×2 (05:46→22:37)
[2018-05-08] MEDS: Simethicone 80 mg Chewtab PO PRN ×2 (05:47→13:05)
[2018-05-08] MEDS: Lactobacillus Acidophilus 500 MU Cap PO SCH ×2 (09:00→17:00)
[2018-05-08] MEDS: Multivitamin With Minerals Tab PO SCH (09:45)
[2018-05-08] MEDS: Metoprolol Succinate 50 mg XL Tab PO SCH ×2 (09:45→21:32)
[2018-05-08] MEDS: Potassium & Sodium Phosphate PO SCH ×5 (09:45→21:41)
[2018-05-08] MEDS: Pantoprazole 40 mg EC Tab PO SCH (10:00)
[2018-05-09] MEDS: Meropenem 1 GM in Sodium Chloride 0.9% 100 ML IVPB SCH (04:09)
[2018-05-09 08:51] VITALS: TEMP 97.6; O2SAT 97
--- NOTE | 2018-05-09 10:34 | CP.PCM.DIS ---
Provider - Provider Date of Admission: 04/26/18 17:46 Attending physician: Lillian Garcias MD Consults: 04/26/18 18:23 Infectious Disease Consult Routine Comment: Consulting Provider: Sammy Castano Consulting Physician: Sammy Castano Reason for Consult: VRE and E.coli in urine 04/26/18 18:53 Case Management Referral Routine Comment: Physician Instructions: Reason For Exam: Reason for Referral: Discharge Planning 04/27/18 00:28 Wound Care [Nursing Referral for Wound Care] Routine Comment: Physician Instructions: Reason For Exam: redness on groin ,freddie scale 16 Time Spent in preparation of Discharge (in minutes): 25 Diagnosis - Discharge Diagnosis (1) E coli bacteremia Status: Acute Comment: completed 21 day of IV Meropenem (2) Atrial fibrillation Status: Chronic Comment: continue Metoprolol and Eliquis. rate controlled Hospital Course - Lab Results Lab Results: Most Recent Lab Values WBC 9.0 K/uL (4.8-10.8) 05/05/18 05:45 RBC 3.42 Mil/uL (3.80-5.20) L 05/05/18 05:45 Hgb 10.2 g/dL (12.0-16.0) L 05/05/18 05:45 Hct 31.5 % (34.0-47.0) L 05/05/18 05:45 MCV 92.0 fl (81.0-99.0) 05/05/18 05:45 MCH 29.9 pg (27.0-31.0) 05/05/18 05:45 MCHC 32.5 g/dL (33.0-37.0) L 05/05/18 05:45 RDW 14.5 % (11.5-14.5) 05/05/18 05:45 Plt Count 457 K/uL (130-400) H D 05/05/18 05:45 Sodium 140 mmol/l (132-148) 05/05/18 05:45 Potassium 4.9 MMOL/L (3.6-5.0) 05/05/18 05:45 Chloride 102 mmol/L (98-107) 05/05/18 05:45 Carbon Dioxide 33 mmol/L (22-30) H 05/05/18 05:45 Anion Gap 10 (10-20) 05/05/18 05:45 BUN 26 mg/dl (7-17) H 05/05/18 05:45 Creatinine 0.9 mg/dl (0.7-1.2) 05/05/18 05:45 Est GFR ( Amer) > 60 05/05/18 05:45 Est GFR (Non-Af Amer) > 60 05/05/18 05:45 Random Glucose 108 mg/dL (65-105) H 05/05/18 05:45 Calcium 8.9 mg/dL (8.4-10.2) 05/05/18 05:45 Urine Color Yellow (YELLOW) 04/28/18 23:00 Urine Clarity Cloudy (Clear) 04/28/18 23:00 Urine pH 7.0 (5.0-8.0) 04/28/18 23:00 Ur Specific Almo 1.013 (1.003-1.030) 04/28/18 23:00 Urine Protein 30 mg/dL (NEGATIVE) 04/28/18 23:00 Urine Glucose (UA) 50 mg/dL (NEGATIVE) 04/28/18 23:00 Urine Ketones Negative mg/dL (NEGATIVE) 04/28/18 23:00 Urine Blood Large (NEGATIVE) 04/28/18 23:00 Urine Nitrate Negative (NEGATIVE) 04/28/18 23:00 Urine Bilirubin Negative (NEGATIVE) 04/28/18 23:00 Urine Urobilinogen 0.2-1.0 mg/dL (0.2-1.0) 04/28/18 23:00 Ur Leukocyte Esterase Small Marco A/uL (Negative) 04/28/18 23:00 Urine RBC (Auto) 859 /hpf (0-3) H 04/28/18 23:00 Urine Microscopic WBC 42 /hpf (0-5) H 04/28/18 23:00 Ur Squamous Epith Cells 2 /hpf (0-5) 04/28/18 23:00 Urine Bacteria Occ (<OCC) H 04/28/18 23:00 - Hospital Course Hospital Course: 77 yo female patient with history of frequent UTI, HTN and Depression admitted because of sepsis. Patient was initially started on Rocephin then switched to M eropenem when blood and urine culture grew E coli. She was transferred to TCU for continuation of IV antibiotics and physical therapy. Patient completed 21 day course of IV Meropenem and doing well. Patient discharged in stable condition. Discharge Exam - Head Exam Head Exam: ATRAUMATIC - Eye Exam Eye Exam: absent: Scleral icterus - ENT Exam ENT Exam: Mucous Membranes Moist - Respiratory Exam Respiratory Exam: absent: Rales, Rhonchi, Wheezes, Respiratory Distress - Cardiovascular Exam Cardiovascular Exam: REGULAR RHYTHM, +S1, +S2 - GI/Abdominal Exam GI & Abdominal Exam: Soft. absent: Tenderness - Rectal Exam Rectal Exam: Deferred - Neurological Exam Neurological exam: Alert, Oriented x3 - Psychiatric Exam Psychiatric exam: Normal Affect - Skin Skin Exam: Dry, Intact Discharge Plan - Discharge Medications Prescriptions: Apixaban [Eliquis] 5 mg PO Q12 #60 tab diltiaZEM [Cardizem] 30 mg PO TID #90 tab Metoprolol Tartrate 50 mg PO BID #60 tablet - Follow Up Plan Condition: GOOD Disposition: HOME/ ROUTINE
[2018-05-09] MEDS: Lactobacillus Acidophilus 500 MU Cap PO SCH (10:42)
[2018-05-09] MEDS: Potassium & Sodium Phosphate PO SCH (10:44)
[2018-05-09] MEDS: Pantoprazole 40 mg EC Tab PO SCH (10:44)
[2018-05-09] MEDS: Multivitamin With Minerals Tab PO SCH (10:46)
[2018-05-09] MEDS: Metoprolol Succinate 50 mg XL Tab PO SCH (10:46)
[2018-05-09] MEDS ORDERED: Alum-Mag Hydrox-Simethicone Susp (30 mL) PO ONE (11:54)
[2018-05-09 12:46] VITALS: BP 145/68; PULSE 72
== END 2018-05-09 12:35 | disposition home or self-care (01) | DRG 872 ==
LOC: H.TCU 17:46
PROVIDERS: ADMIT Hospitalist; ATTEND Hospitalist
PROC: 3E03329 Introduction of Other Anti-infective into Peripheral Vein, Percutaneous Approach (ICD-10-PCS; principal; 2018-04-26)
PROC: F07M6FZ Therapeutic Exercise Treatment of Musculoskeletal System - Whole Body using Assistive, Adaptive, Supportive or Protective Equipment (ICD-10-PCS; 2018-04-27)
PROC: F08Z4FZ Home Management Treatment using Assistive, Adaptive, Supportive or Protective Equipment (ICD-10-PCS; 2018-04-27)
DX: A41.51 Sepsis due to Escherichia coli [E. coli] (principal); K86.1 Other chronic pancreatitis; N12 Tubulo-interstitial nephritis, not specified as acute or chronic; N39.0 Urinary tract infection, site not specified; I10 Essential (primary) hypertension; I48.2 Chronic atrial fibrillation; J44.9 Chronic obstructive pulmonary disease, unspecified; K21.9 Gastro-esophageal reflux disease without esophagitis; M79.7 Fibromyalgia; M81.0 Age-related osteoporosis without current pathological fracture; N32.81 Overactive bladder; Z86.718 Personal history of other venous thrombosis and embolism; Z87.01 Personal history of pneumonia (recurrent); Z87.440 Personal history of urinary (tract) infections; Z87.442 Personal history of urinary calculi; Z87.891 Personal history of nicotine dependence; Z90.49 Acquired absence of other specified parts of digestive tract; E66.01 Morbid (severe) obesity due to excess calories; Z68.33 Body mass index [BMI] 33.0-33.9, adult; F41.8 Other specified anxiety disorders; G89.29 Other chronic pain; K29.70 Gastritis, unspecified, without bleeding; K59.09 Other constipation; M19.90 Unspecified osteoarthritis, unspecified site; R32 Unspecified urinary incontinence; R73.03 Prediabetes; M54.5 Low back pain